=== PATIENT | female | born 1990 | race Caucasian/White ===

== ENCOUNTER 2016-05-23 01:33 | Emergency (ER) | payer MEDICAID ==
[~2016-05-23 01:33] MED LIST: /LAMO20TA PO; ALEV220C2 PO; AUGM500T34 PO; AUGM875T27 PO; Acetaminophen/Hydrocodone PO; BACTDSTA PO; BIRTH CONTROL ID; CARD60TA3 PO; CLOR37TA PO; CYMB1CAP PO; DILA2TAB PO; Docusate Sod/Senna PO; FLEX10TA2 PO; FLUT11IN INH; KEPP1000 PO; KEPP500T4 PO; LAMI200T3 PO; LIDO1SOL7 SS; LYRI75CA PO; META800T82 PO; NAPR250T2 PO; NAPR500T2 PO; NORC5TAB PO; NYAM10003 TOP; OCUF0.3D OU; ONDA4TAB6 PO; PERC2.5T PO; PREV30TA3 PO; SERO50TA3 PO; SYNT25TA PO; TRAN7.5T PO; TYLE325T5 PO; VENTAER INH; ZYPR2.5T2 PO
[2016-05-23] MEDS ORDERED: TRIMETHOBENZAMIDE HCL INJ 200 MG/2 ML VIAL (J3250) As Ordered ONE (02:10)
--- NOTE | 2016-05-23 02:56 | EDDOCDS ---
Nurse's Notes [facility] Name: Serena Mena Age: 26 yrs Sex: Female : 1990 Arrival Date: 05/23/2016 Time: 01:33 Bed I2 / M2 Private MD: Eleazar Herrera Diagnosis: Mild hyperemesis gravidarum Presentation: 05/23 01:50 Presenting complaint: Patient states: . Unsure of how far along. Has been kmg1 vomiting all day Monday. Nausea. Adult Sepsis Screening: Suicide/Homicide risk assessment- the patient denies having any suicidal and/or homicidal ideations and does not present with any other emotional, behavioral or mental health complaints. 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 Transition of care: patient was not received from another setting of care. 01:50 Acuity: ROSEMARIE Level 4 kmg1 01:50 Method Of Arrival: Walkin/Carried/Asstd km 02:00 Adult Sepsis Screening: The patient does not have new or worsening altered mentation. kmg1 Patient's respiratory rate is less than 22. Systolic blood pressure is greater than 100. Patient has a qSOFA score of 0- Negative Sepsis Screen. Triage Assessment: 01:56 General: Appears in no apparent distress, ill, Behavior is appropriate for age, kmg1 cooperative. Pain: Location: suprapubic area, right lower quadrant and left lower quadrant Pain currently is 8 out of 10 on a pain scale. Quality of pain is described as crampy, sharp, stabbing, Is continuous. HIV screening NA for this visit Offered previously. GI: Reports cramping, nausea, vomiting. 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 Keppra 1,000 mg Oral tab 1 tab every other day (Last dose: 05/22/2016) 2. Lidocaine Viscous 2 % Oral soln 15 mL three times a day when eating 3. Oral 1 tablet daily (Last dose: 05/22/2016) 4. Tylenol 325 mg Oral tab 1 tab every 4-6 hours (Last dose: 05/22/2016 19:30) 5. Zofran (as hydrochloride) 4 mg oral tab 1 tabs every 8 hours (Last dose: 05/22/2016 20:30) - PMHx: Hodgkin's Lymphomain remission; Seizure Disorder; - PSHx: fluid removed from heart; sternum surgery; infusaport placed and removed; lymph node from neck; Adenoidectomy; Ear Tubes; surgery for hodgkins lymphoma; - Social history: Smoking status: Patient states was never smoker of tobacco. No barriers to communication noted, The patient speaks fluent Grenadian, Speaks appropriately for age. - Family history: Not pertinent. - : The pt / caregiver states he / she is not on anticoagulants. Home medication list is obtained from the patient, [employer] import data. - Exposure Risk Screening:: None identified. Screenin:31 Screening information is obtained from the patient. Fall risk: No risks identified. km Assistance ADL's: requires no assistance with activities of daily living. Abuse/DV Screen: The patient / caregiver reports he/she is: not in a situation that causes fear, pain or injury. Nutritional screening: No deficits noted. Advance Directives: There is no active DNR order. home support is adequate. Assessment: 01:56 General: See Triage Assessment. [facility] [place] 02:45 General: Appears in no apparent distress, Behavior is cooperative. General: pt eric slm fluids at this time . Respiratory: Airway is patent Respiratory effort is even, unlabored. Vital Signs: 01:56 BP 113 / 69; Pulse 116; Resp 20; Temp 99.4(O); Pulse Ox 98% ; Weight 58.97 kg (R); [facility] [place] Height 5 ft. 5 in. (165.10 cm) (R); Pain 8/10; 02:55 BP 108 / 67; Pulse 111; Resp 18; Pulse Ox 100% ; slm 01:56 Body Mass Index 21.63 (58.97 kg, 165.10 cm) [facility] [place] [place] Vitals: 01:56 Log In Time: May 23, 2016 at 01:33. [facility] [place] [place] ED Course: 01:35 Patient visited by Romulo Ross, Reg. pm4 01:35 Eleazar Herrera is Private Physician. pm4 01:35 Patient moved to Waiting pm4 01:51 Triage Initiated [facility] [place] 02:06 Samira Lo PA-C is PHCP. dt4 02:06 Kai Ramirez DO is Attending Physician. dt4 02:09 Patient moved to Triage 2 slm 02:11 Patient visited by Samira Lo PA-C. dt4 02:14 Angelica Emery LPN is Primary Nurse. slm 02:14 Patient moved to I2 / M2 slm 02:31 Patient visited by Millicent Steve RN. kmg1 02:31 The patient / caregiver is instructed regarding the plan of care and ED course. kmg1 02:45 Angelica Emery LPN is Primary Nurse. slm 02:45 No IV's were initiated during this patient's visit. No procedures done that require slm assistance. Administered Medications: 02:20 Drug: Tigan 200 mg [Tigan 100 mg/mL intramuscular solution (2 mL)] Route: IM; Site: [facility] [place] left gluteus; 02:54 Follow up: Response: Nausea is resolved slm Order Results: There are currently no results for this order. Outcome: 02:46 No special radiology studies were completed. Property :Personal belongings accompany Pt.[facility] 02:46 Discharge ordered by Provider. dt4 02:47 Discharge Assessment: patient administered narcotics - no. slm 02:53 The following High Risk Discharge criteria are identified: None. Discharged to home slm ambulatory, with significant other. Condition: good Condition: improved. Discharge instructions given to patient, Instructed on discharge instructions, follow up and referral plans. medication usage, Demonstrated understanding of instructions, medications, Pt was receptive of discharge instructions/ teaching. Prescriptions given X 1. 02:55 Patient left the ED. [facility] Signatures: Millicent Steve RN RN [facility] [place] Angelica Emery LPN LPN [facility] Samira Lo PA-C PA-C dt4 Romulo Ross, Reg Reg pm4 MTDD
--- NOTE | 2016-05-23 02:56 | EDDOCDS ---
Physician Documentation [facility] Name: Serena Mena Age: 26 yrs Sex: Female : 1990 Arrival Date: 05/23/2016 Time: 01:33 Bed I2 / M2 Private MD: Eleazar Herrera Disposition: 05/23/16 02:46 Discharged to Home/Self Care. Impression: Mild hyperemesis gravidarum. - Condition is Stable. - Discharge Instructions: Hyperemesis Gravidarum. - Prescriptions for Tigan 300 mg Oral Capsule - take 1 capsule by ORAL route every 12 hours As needed; 30 capsule. - Medication Reconciliation, Local Pharmacy Hours form. - Follow up: Emergency Department; When: As needed; Reason: Worsening of conditions. Follow up: Private Physician; When: 2 - 3 days; Reason: Wound/Symptom Recheck, Recheck today's complaints, Continuance of care. - Problem is new. - Symptoms have improved. Historical: - Allergies: Fentanyl (Hives); IV Dyeseizures; Latex (Anaphylaxis); - Home Meds: 1. Keppra 1,000 mg Oral tab 1 tab every other day (Last dose: 05/22/2016) 2. Lidocaine Viscous 2 % Oral soln 15 mL three times a day when eating 3. Oral 1 tablet daily (Last dose: 05/22/2016) 4. Tylenol 325 mg Oral tab 1 tab every 4-6 hours (Last dose: 05/22/2016 19:30) 5. Zofran (as hydrochloride) 4 mg oral tab 1 tabs every 8 hours (Last dose: 05/22/2016 20:30) - PMHx: Hodgkin's Lymphomain remission; Seizure Disorder; - PSHx: fluid removed from heart; sternum surgery; infusaport placed and removed; lymph node from neck; Adenoidectomy; Ear Tubes; surgery for hodgkins lymphoma; - Social history: Smoking status: Patient states was never smoker of tobacco. No barriers to communication noted, The patient speaks fluent Albanian, Speaks appropriately for age. - Family history: Not pertinent. - : The pt / caregiver states he / she is not on anticoagulants. Home medication list is obtained from the patient, [employer] import data. - Exposure Risk Screening:: None identified. 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 5 in. (165.10 cm) (R); Pain 8/10; 02:55 BP 108 / 67; Pulse 111; Resp 18; Pulse Ox 100% ; slm 01:56 Body Mass Index 21.63 (58.97 kg, 165.10 cm) [facility] MDM: 02:06 Tigan 200 mg IM once ordered. dt4 02:54 [facility] Administered Medications: 02:20 Drug: Tigan 200 mg [Tigan 100 mg/mL intramuscular solution (2 mL)] Route: IM; Site: [facility] [place] left gluteus; 02:54 Follow up: Response: Nausea is resolved [facility] Signatures: Millicent Steve RN RN [facility] Angelica Emery LPN LPN [facility] Samira Lo PA-C PA-C dt4 Alyssa Baca [facility] AZUCENA
--- NOTE | 2016-05-25 03:56 | EDDOCDS ---
Physician Documentation [facility] Name: Serena Mena Age: 26 yrs Sex: Female : 1990 Arrival Date: 05/23/2016 Time: 01:33 Bed I2 / M2 Private MD: Eleazar Herrera Disposition: 05/23/16 02:46 Discharged to Home/Self Care. Impression: Mild hyperemesis gravidarum. - Condition is Stable. - Discharge Instructions: Hyperemesis Gravidarum. - Prescriptions for Tigan 300 mg Oral Capsule - take 1 capsule by ORAL route every 12 hours As needed; 30 capsule. - Medication Reconciliation, Local Pharmacy Hours form. - Follow up: Emergency Department; When: As needed; Reason: Worsening of conditions. Follow up: Private Physician; When: 2 - 3 days; Reason: Wound/Symptom Recheck, Recheck today's complaints, Continuance of care. - Problem is new. - Symptoms have improved. Historical: - Allergies: Fentanyl (Hives); IV Dyeseizures; Latex (Anaphylaxis); - Home Meds: 1. Keppra 1,000 mg Oral tab 1 tab every other day (Last dose: 05/22/2016) 2. Lidocaine Viscous 2 % Oral soln 15 mL three times a day when eating 3. Oral 1 tablet daily (Last dose: 05/22/2016) 4. Tylenol 325 mg Oral tab 1 tab every 4-6 hours (Last dose: 05/22/2016 19:30) 5. Zofran (as hydrochloride) 4 mg oral tab 1 tabs every 8 hours (Last dose: 05/22/2016 20:30) - PMHx: Hodgkin's Lymphomain remission; Seizure Disorder; - PSHx: fluid removed from heart; sternum surgery; infusaport placed and removed; lymph node from neck; Adenoidectomy; Ear Tubes; surgery for hodgkins lymphoma; - Social history: Smoking status: Patient states was never smoker of tobacco. No barriers to communication noted, The patient speaks fluent [place], Speaks appropriately for age. - Family history: Not pertinent. - : The pt / caregiver states he / she is not on anticoagulants. Home medication list is obtained from the patient, [employer] import data. - Exposure Risk Screening:: None identified. 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 5 in. (165.10 cm) (R); Pain 8/10; 02:55 BP 108 / 67; Pulse 111; Resp 18; Pulse Ox 100% ; slm 01:56 Body Mass Index 21.63 (58.97 kg, 165.10 cm) [facility] [place]: 02:06 Tigan 200 mg IM once ordered. dt4 02:54 Financial registration complete. [facility] 03:11 [facility] Payment Agreement was scanned into [employer] and attached to record. [facility] 14: T-Sheet-- Draft Copy was scanned into [employer] and attached to record. gb Administered Medications: 02:20 Drug: Tigan 200 mg [Tigan 100 mg/mL intramuscular solution (2 mL)] Route: IM; [place] [facility] [place]; 02:54 Follow up: Response: Nausea is resolved [facility] Signatures: Millicent Steve, RN RN [facility] Delmy Mtz, Reg Reg gb Angelica Emery LPN LPN [facility] Samira Lo PA-C PA-C dt4 Alyssa Baca [facility] The chart was reviewed and I authenticate all verbal orders and agree with the evaluation and treatment provided.Attachments: 03:11 [facility] Payment Agreement [facility] 14:02 T-Sheet-- Draft Copy Chart Complete MTDD
--- NOTE | 2016-05-25 03:56 | EDDOCDS ---
Nurse's Notes [facility] Name: Serena Mena Age: 26 yrs Sex: Female : 1990 Arrival Date: 05/23/2016 Time: 01:33 Bed I2 / M2 Private MD: Eleazar Herrera Diagnosis: Mild hyperemesis gravidarum Presentation: 05/23 01:50 Presenting complaint: Patient states: . Unsure of how far along. Has been kmg1 vomiting all day Monday. Nausea. Adult Sepsis Screening: Suicide/Homicide risk assessment- the patient denies having any suicidal and/or homicidal ideations and does not present with any other emotional, behavioral or mental health complaints. 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 Transition of care: patient was not received from another setting of care. 01:50 Acuity: ROSEMARIE Level 4 kmg1 01:50 Method Of Arrival: Walkin/Carried/Asstd km 02:00 Adult Sepsis Screening: The patient does not have new or worsening altered mentation. kmg1 Patient's respiratory rate is less than 22. Systolic blood pressure is greater than 100. Patient has a qSOFA score of 0- Negative Sepsis Screen. Triage Assessment: 01:56 General: Appears in no apparent distress, ill, Behavior is appropriate for age, kmg1 cooperative. Pain: Location: suprapubic area, right lower quadrant and left lower quadrant Pain currently is 8 out of 10 on a pain scale. Quality of pain is described as crampy, sharp, stabbing, Is continuous. HIV screening NA for this visit Offered previously. GI: Reports cramping, nausea, vomiting. 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 Keppra 1,000 mg Oral tab 1 tab every other day (Last dose: 05/22/2016) 2. Lidocaine Viscous 2 % Oral soln 15 mL three times a day when eating 3. Oral 1 tablet daily (Last dose: 05/22/2016) 4. Tylenol 325 mg Oral tab 1 tab every 4-6 hours (Last dose: 05/22/2016 19:30) 5. Zofran (as hydrochloride) 4 mg oral tab 1 tabs every 8 hours (Last dose: 05/22/2016 20:30) - PMHx: Hodgkin's Lymphomain remission; Seizure Disorder; - PSHx: fluid removed from heart; sternum surgery; infusaport placed and removed; lymph node from neck; Adenoidectomy; Ear Tubes; surgery for hodgkins lymphoma; - Social history: Smoking status: Patient states was never smoker of tobacco. No barriers to communication noted, The patient speaks fluent [place]inean, Speaks appropriately for age. - Family history: Not pertinent. - : The pt / caregiver states he / she is not on anticoagulants. Home medication list is obtained from the patient, [employer] import data. - Exposure Risk Screening:: None identified. Screenin:31 Screening information is obtained from the patient. Fall risk: No risks identified. km Assistance ADL's: requires no assistance with activities of daily living. Abuse/DV Screen: The patient / caregiver reports he/she is: not in a situation that causes fear, pain or injury. Nutritional screening: No deficits noted. Advance Directives: There is no active DNR order. home support is adequate. Assessment: 01:56 General: See Triage Assessment. [facility] 02:45 General: Appears in no apparent distress, Behavior is cooperative. General: pt eric slm fluids at this time . Respiratory: Airway is patent Respiratory effort is even, unlabored. Vital Signs: 01:56 BP 113 / 69; Pulse 116; Resp 20; Temp 99.4(O); Pulse Ox 98% ; Weight 58.97 kg (R); [facility] Height 5 ft. 5 in. (165.10 cm) (R); Pain 8/10; 02:55 BP 108 / 67; Pulse 111; Resp 18; Pulse Ox 100% ; slm 01:56 Body Mass Index 21.63 (58.97 kg, 165.10 cm) [facility] Vitals: 01:56 Log In Time: May 23, 2016 at 01:33. [facility] ED Course: 01:35 Patient visited by Romulo Ross, Reg. pm4 01:35 Eleazar Herrera is Private Physician. pm4 01:35 Patient moved to Waiting pm4 01:51 Triage Initiated [facility] 02:06 Samira Lo PA-C is PHCP. dt4 02:06 Kai Ramirez DO is Attending Physician. dt4 02:09 Patient moved to Triage 2 sl 02:11 Patient visited by Samira Lo PA-C. dt4 02:14 Angelica Emery LPN is Primary Nurse. slm 02:14 Patient moved to I2 / M2 slm 02:31 Patient visited by Millicent Steve RN. kmg1 02:31 The patient / caregiver is instructed regarding the plan of care and ED course. kmg1 02:45 Angelica Emery LPN is Primary Nurse. slm 02:45 No IV's were initiated during this patient's visit. No procedures done that require slm assistance. 03:11 [facility] Payment Agreement was scanned into [employer] and attached to record. [facility] 14:02 T-Sheet-- Draft Copy was scanned into [employer] and attached to record. gb Administered Medications: 02:20 Drug: Tigan 200 mg [Tigan 100 mg/mL intramuscular solution (2 mL)] Route: IM; Site: [facility] [place] left gluteus; 02:54 Follow up: Response: Nausea is resolved sl Order Results: There are currently no results for this order. Outcome: 02:46 No special radiology studies were completed. Property :Personal belongings accompany Pt.[facility] 02:46 Discharge ordered by Provider. dt4 02:47 Discharge Assessment: patient administered narcotics - no. m 02:53 The following High Risk Discharge criteria are identified: None. Discharged to home slm ambulatory, with significant other. Condition: good Condition: improved. Discharge instructions given to patient, Instructed on discharge instructions, follow up and referral plans. medication usage, Demonstrated understanding of instructions, medications, Pt was receptive of discharge instructions/ teaching. Prescriptions given X 1. 02:55 Patient left the ED. [facility] Signatures: Millicent Steve RN RN km Delmy Mtz, Reg Reg gb Angelica Emery LPN LPN [facility] Samira Lo PA-C PA-C dt4 Alyssa Baca [facility] Romulo Ross, Reg Reg pm4 Chart Complete MTDD
--- NOTE | 2016-05-25 03:56 | EDDOCDS ---
Physician Documentation [facility] Name: Serena Mena Age: 26 yrs Sex: Female : 1990 Arrival Date: 05/23/2016 Time: 01:33 Bed I2 / M2 Private MD: Eleazar Herrera Disposition: 05/23/16 02:46 Discharged to Home/Self Care. Impression: Mild hyperemesis gravidarum. - Condition is Stable. - Discharge Instructions: Hyperemesis Gravidarum. - Prescriptions for Tigan 300 mg Oral Capsule - take 1 capsule by ORAL route every 12 hours As needed; 30 capsule. - Medication Reconciliation, Local Pharmacy Hours form. - Follow up: Emergency Department; When: As needed; Reason: Worsening of conditions. Follow up: Private Physician; When: 2 - 3 days; Reason: Wound/Symptom Recheck, Recheck today's complaints, Continuance of care. - Problem is new. - Symptoms have improved. Historical: - Allergies: Fentanyl (Hives); IV Dyeseizures; Latex (Anaphylaxis); - Home Meds: 1. Keppra 1,000 mg Oral tab 1 tab every other day (Last dose: 05/22/2016) 2. Lidocaine Viscous 2 % Oral soln 15 mL three times a day when eating 3. Oral 1 tablet daily (Last dose: 05/22/2016) 4. Tylenol 325 mg Oral tab 1 tab every 4-6 hours (Last dose: 05/22/2016 19:30) 5. Zofran (as hydrochloride) 4 mg oral tab 1 tabs every 8 hours (Last dose: 05/22/2016 20:30) - PMHx: Hodgkin's Lymphomain remission; Seizure Disorder; - PSHx: fluid removed from heart; sternum surgery; infusaport placed and removed; lymph node from neck; Adenoidectomy; Ear Tubes; surgery for hodgkins lymphoma; - Social history: Smoking status: Patient states was never smoker of tobacco. No barriers to communication noted, The patient speaks fluent Dutch, Speaks appropriately for age. - Family history: Not pertinent. - : The pt / caregiver states he / she is not on anticoagulants. Home medication list is obtained from the patient, [employer] import data. - Exposure Risk Screening:: None identified. 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 5 in. (165.10 cm) (R); Pain 8/10; 02:55 BP 108 / 67; Pulse 111; Resp 18; Pulse Ox 100% ; slm 01:56 Body Mass Index 21.63 (58.97 kg, 165.10 cm) [facility] [place] MDM: 02:06 Tigan 200 mg IM once ordered. dt4 02:54 Financial registration complete. [facility] 03:11 [facility] Payment Agreement was scanned into [employer] and attached to record. [facility] 14: T-Sheet-- Draft Copy was scanned into [employer] and attached to record. gb Administered Medications: 02:20 Drug: Tigan 200 mg [Tigan 100 mg/mL intramuscular solution (2 mL)] Route: IM; Site: [facility] [place]us; 02:54 Follow up: Response: Nausea is resolved [facility] Signatures: Millicent Steve, RN RN [facility] [place] Delmy Mtz, Reg Reg gb Angelica Emery LPN LPN [facility] Samira Lo PA-C PA-C dt4 Alyssa Baca [facility] The chart was reviewed and I authenticate all verbal orders and agree with the evaluation and treatment provided.Attachments: 03:11 [facility] Payment Agreement [facility] 14:02 T-Sheet-- Draft Copy Chart Complete MTDD
== END 2016-05-23 02:55 | disposition home or self-care (01) ==
LOC: M ED 01:33
DX: O21.0 Mild hyperemesis gravidarum (principal); Z3A.01 Less than 8 weeks gestation of pregnancy; Z85.71 Personal history of Hodgkin lymphoma; O99.351 Diseases of the nervous system complicating pregnancy, first trimester; Z79.899 Other long term (current) drug therapy; Z88.5 Allergy status to narcotic agent; Z91.040 Latex allergy status; Z91.041 Radiographic dye allergy status
CPT/HCPCS: 96372; 99283; J3250

== ENCOUNTER → 2016-05-24 | Outpatient (REF) | payer MEDICAID ==
[2016-05-24 14:26] LABS: MEAN CORPUSCULAR HEMOGLOBIN 28.7 pg (27.0-33.0); MEAN CORPUSCULAR HGB CONC 32.5 g/dl (32.0-36.5); MEAN CORPUSCULAR VOLUME 88.5 fl (80.0-96.0); RED CELL DISTRIBUTION WIDTH 12.1 % (11.5-14.5); WHITE BLOOD COUNT 4.8 K/mm3 (4.0-10.0)
[2016-05-24 14:39] LABS: FREE T4 1.18 NG/DL (0.76-1.46); HCG, SERUM QUANTITATIVE 4649 MIU/ML
[2016-05-25 14:05] LABS: HIV SCRN NEGATIVE (NEGATIVE); HIV SCRN1 NEGATIVE (NEGATIVE)
[2016-05-25 14:06] LABS: CONTROL LINE INT CTR LINE PRESENT
== END | disposition home or self-care (01) ==
LOC: M LAB REF 12:57
PROVIDERS: ATTEND Obstetrics & Gynecology
DX: O36.80X0 Pregnancy with inconclusive fetal viability, not applicable or unspecified (principal); Z36 Encounter for antenatal screening of mother; Z3A.00 Weeks of gestation of pregnancy not specified

== ENCOUNTER → 2016-06-30 | Outpatient (REF) | payer MEDICAID ==
[2016-06-30 18:18] LABS: FREE T4 0.89 NG/DL (0.76-1.46)
== END ==
LOC: M LAB REF 16:44
PROVIDERS: ATTEND Obstetrics & Gynecology
DX: Z36 Encounter for antenatal screening of mother (principal); Z3A.10 10 weeks gestation of pregnancy

== ENCOUNTER → 2016-08-25 | Outpatient (REF) | payer MEDICAID ==
[2016-08-25 14:51] LABS: FREE T4 0.88 NG/DL (0.76-1.46)
== END ==
LOC: M LAB REF 12:41
PROVIDERS: ATTEND Advanced Practice Midwife
DX: E03.9 Hypothyroidism, unspecified (principal)

== ENCOUNTER → 2016-10-24 | Outpatient (CLI) | payer MEDICAID ==
[~2016-10-24] MED LIST changes: +ACET50TA PO; +KEPP10002 PO; +LAMI1TAB9 PO; -LAMI200T3 PO; +LEVO112T2 PO; +MACR100C43 PO; +MOTR200T44 PO; -NAPR500T2 PO; +NAPR500T3 PO; +OCUF0.25 OU; -OCUF0.3D OU; +PRENTAB9 PO
[2016-10-24 11:00] LABS: MEAN CORPUSCULAR HEMOGLOBIN 30.4 pg (27.0-33.0); MEAN CORPUSCULAR HGB CONC 33.2 g/dl (32.0-36.5); MEAN CORPUSCULAR VOLUME 91.5 fl (80.0-96.0); WHITE BLOOD COUNT 7.7 K/mm3 (4.0-10.0)
== END ==
LOC: EDBD → M LAB 09:28
PROVIDERS: ATTEND Obstetrics & Gynecology
DX: Z34.02 Encounter for supervision of normal first pregnancy, second trimester (principal); Z36 Encounter for antenatal screening of mother; Z3A.26 26 weeks gestation of pregnancy

== ENCOUNTER 2016-10-29 19:57 | Outpatient (CLI) | payer MEDICAID ==
[~2016-10-29] VITALS: Ht 165.1 cm; Wt 74.0 kg
[~2016-10-29 19:57] MED LIST changes: -ACET50TA PO; -LEVO112T2 PO; -MACR100C43 PO; -MOTR200T44 PO; -PRENTAB9 PO
[2016-10-29 22:08] VITALS: BP 115/72
== END 2016-10-29 22:00 | disposition home or self-care (01) ==
LOC: EDBD → M LDO 19:57
PROVIDERS: ATTEND Obstetrics & Gynecology
DX: O99.89 Other specified diseases and conditions complicating pregnancy, childbirth and the puerperium (principal); R10.30 Lower abdominal pain, unspecified; Z3A.27 27 weeks gestation of pregnancy

== ENCOUNTER → 2016-11-17 | Outpatient (REF) | payer MEDICAID ==
[~2016-11-17] MED LIST changes: +ACET50TA PO; +LEVO112T2 PO; +MACR100C43 PO; +MOTR200T44 PO; +PRENTAB9 PO
[2016-11-17 15:05] LABS: FREE T4 0.78 NG/DL (0.76-1.46)
== END ==
LOC: EDBD → M LAB REF 13:15
PROVIDERS: ATTEND Advanced Practice Midwife
DX: O99.283 Endocrine, nutritional and metabolic diseases complicating pregnancy, third trimester (principal); E03.9 Hypothyroidism, unspecified; Z3A.30 30 weeks gestation of pregnancy

== ENCOUNTER 2016-11-27 17:35 | Outpatient (CLI) | payer MEDICAID ==
[~2016-11-27] VITALS: Ht 165.1 cm; Wt 76.0 kg
[~2016-11-27 17:35] MED LIST changes: -ACET50TA PO; -LEVO112T2 PO; -MACR100C43 PO; -MOTR200T44 PO; -PRENTAB9 PO
[2016-11-27] MEDS ORDERED: PRENTAB9 PO (17:56)
[2016-11-27] MEDS ORDERED: ACET50TA PO (17:56)
[2016-11-27] MEDS ORDERED: ACETAMINOPHEN 500 MG TAB PO PRN (19:15)
[2016-11-27 19:47] LABS: CALCIUM OXALATE CRYSTALS SMALL
[2016-11-27] MEDS ORDERED: NITROFURANTOIN (MACROBID) 100 MG CAP PO ONE (20:15)
[2016-11-27] MEDS ORDERED: MACR100C43 PO (20:16)
== END 2016-11-27 20:34 | disposition home or self-care (01) ==
LOC: EDBD → M LDO 17:35
PROVIDERS: ATTEND Advanced Practice Midwife
DX: O26.893 Other specified pregnancy related conditions, third trimester (principal); Z3A.32 32 weeks gestation of pregnancy; N89.8 Other specified noninflammatory disorders of vagina; R10.9 Unspecified abdominal pain; F79 Unspecified intellectual disabilities; R56.9 Unspecified convulsions; Z91.041 Radiographic dye allergy status; Z91.040 Latex allergy status; Z88.8 Allergy status to other drugs, medicaments and biological substances; O99.343 Other mental disorders complicating pregnancy, third trimester; O99.353 Diseases of the nervous system complicating pregnancy, third trimester

== ENCOUNTER 2016-12-15 06:06 | Outpatient (CLI) | payer MEDICAID ==
[~2016-12-15] VITALS: Ht 163.8 cm; Wt 77.0 kg
[~2016-12-15 06:06] MED LIST changes: +ACET50TA PO; +MACR100C43 PO; +PRENTAB9 PO
[2016-12-15] MEDS ORDERED: LACTATED RINGER'S 1000 ML IV ONE (06:45)
[2016-12-15] MEDS ORDERED: LR 1,000 ML IV SCH (06:45)
[2016-12-15 07:19] LABS: BASO % 0.1 % (0.0-1.0); EOS # 0.1 K/mm3 (0.0-0.50); EOS % 0.9 % (0.0-3.0); LARGE UNSTAINED CELL # 0.1 K/mm3 (0.0-0.4); LARGE UNSTAINED CELL % 0.7 % (0.0-4.0); LYMPH # 0.9 K/mm3 (1.5-6.5); LYMPH % 8.4 % (24.0-44.0); MEAN CORPUSCULAR HEMOGLOBIN 30.7 pg (27.0-33.0); MEAN CORPUSCULAR HGB CONC 34.2 g/dl (32.0-36.5); MEAN CORPUSCULAR VOLUME 89.8 fl (80.0-96.0); MONO # 0.3 K/mm3 (0.0-0.8); MONO % 3.3 % (0.0-5.0); NEUTROPHILS # 8.7 K/mm3 (1.8-7.7); NEUTROPHILS % 86.6 % (36.0-66.0); PLATELET COUNT, AUTOMATED 186 k/mm3 (150-450); RED CELL DISTRIBUTION WIDTH 13.1 % (11.5-14.5)
[2016-12-15 07:45] LABS: ANION GAP 10 MEQ/L (8-16); BLOOD UREA NITROGEN 4 MG/DL (7-18); CALCIUM LEVEL 8.6 MG/DL (8.5-10.1); CARBON DIOXIDE LEVEL 23 MEQ/L (21-32); CHLORIDE LEVEL 108 MEQ/L (98-107); GLOMERULAR FILTRATION RATE > 60.0 (>60); GLUCOSE, FASTING 90 MG/DL (70-105); SODIUM LEVEL 141 MEQ/L (136-145)
== END 2016-12-15 08:40 | disposition home or self-care (01) ==
LOC: M LDO 06:06 → EDBD 06:06 → M LDO 08:40
PROVIDERS: ATTEND Obstetrics & Gynecology
DX: O21.9 Vomiting of pregnancy, unspecified (principal); O99.513 Diseases of the respiratory system complicating pregnancy, third trimester; J06.9 Acute upper respiratory infection, unspecified; Z3A.34 34 weeks gestation of pregnancy

== ENCOUNTER → 2016-12-20 | Outpatient (REF) | payer MEDICAID ==
[~2016-12-20] MED LIST changes: +LEVO112T2 PO; +MOTR200T44 PO
[2016-12-20 14:08] LABS: FREE T4 0.91 NG/DL (0.76-1.46)
== END ==
LOC: M LAB REF 13:08
PROVIDERS: ATTEND Obstetrics & Gynecology
DX: O09.893 Supervision of other high risk pregnancies, third trimester (principal); Z36 Encounter for antenatal screening of mother; Z3A.00 Weeks of gestation of pregnancy not specified

== ENCOUNTER 2016-12-31 13:51 | Outpatient (CLI) | payer MEDICAID ==
[~2016-12-31 13:51] MED LIST changes: -LEVO112T2 PO; -MOTR200T44 PO
[2016-12-31 14:16] VITALS: BP 129/74
--- NOTE | 2017-01-01 | IPNPDOC ---
Text Note Date of Service The patient was seen on 12/31/16 at 1432. NOTE SUBJECTIVE: Patient is a 26 year old female who is a at at 36.6 weeks gestation. She initiated care in her first trimester with [facility]. Her has been complicated by subclinical hypothyroidism. She has a complex history of being treated for non-Hodgkin's Lymphoma via bone marrow transplant. She presents to L&D with complaints of constant pain in her pelvis, cramping, and spotting. Reports active movement. Reported contractions to be every 2 minutes on the phone but does not mention feeling contractions when asked. Pain is a 7/10. She denies leaking fluid. OBJECTIVE: FHR 120, moderate variability, positive accelerations, no decelerations. Contractions irregular. Abdomen palpates very mild with contractions. No tenderness with palpation. SVE: 1/80/-2, soft, posterior, no show, intact membranes. Urine is straw yellow to dark yellow. ASSESSMENT:IUP @ 36.6 weeks gestation, hypothyroidism, rule out labor, Category I FHR tracing PLAN: Will continue to assess. Will check cervix again for change after 2 hours of monitoring. Encouraged oral fluid intake. VS,Fishbone, I+O VS, Fishbone, I+O Vital Signs Date Time Temp Pulse Resp B/P (MAP) Pulse Ox O2 Delivery O2 Flow Rate FiO2 12/31/16 14:16 98.7 93 129/74 (92) LYNNE PAULSON CNM Jan 01, 2017 00:00
--- NOTE | 2017-01-01 00:23 | IPNPDOC ---
Text Note Date of Service The patient was seen on 01/01/17 AT 1650. NOTE SUBJECTIVE: Patient reports that her pain is the same. Reports active movement. Reports she had spotting earlier but none since this morning. Patient states that she "wants this baby out" and "why can't we do anything to help her have this baby." She is requesting an induction because of her pain. Reviewed with patient that myself and Dr. Delgado will not induce her until she is at least 39 weeks gestation and that we have discussed this in depth at multiple visits. This is again explained to patient that we will not induce her until 39 weeks gestation unless medically necessary. OBJECTIVE: VS stable. FHR 120, moderate variability, positive accelerations, no decelerations. Contractions: irregularly and occasional. SVE: unchanged. No show or vaginal bleeding noted. ASSESSMENT: IUP at 36.6 weeks gestation, Category I FHR tracing, not in labor PLAN: Patient to be discharged to home. Given an induction date of 01/16/17 at 0600. Reviewed risks, benefits, and alternatives of IOL. Patient desires an induction and is very adamant of delivering as early as she can. Reviewed comfort measures for hip pain. Encouraged patient to increase her fluid intake to half her weight in ounces. Reviewed access to care, movement counts, labor signs and symptoms, and danger signs to report. Patient is to follow up for her routine OB appointment. VS,Fishbone, I+O VS, Fishbone, I+O Vital Signs Date Time Temp Pulse Resp B/P (MAP) Pulse Ox O2 Delivery O2 Flow Rate FiO2 12/31/16 14:16 98.7 93 129/74 (92) LYNNE PAULSON CNM Jan 01, 2017 00:23
== END 2016-12-31 17:00 | disposition home or self-care (01) ==
LOC: M LDO 13:51
PROVIDERS: ATTEND Advanced Practice Midwife
DX: O47.03 False labor before 37 completed weeks of gestation, third trimester (principal); Z3A.36 36 weeks gestation of pregnancy; O99.283 Endocrine, nutritional and metabolic diseases complicating pregnancy, third trimester; Z85.72 Personal history of non-Hodgkin lymphomas; R10.2 Pelvic and perineal pain; Z88.8 Allergy status to other drugs, medicaments and biological substances; Z91.040 Latex allergy status; Z91.041 Radiographic dye allergy status

== ENCOUNTER 2017-01-04 16:20 | Inpatient (IN) | payer MEDICAID ==
[~2017-01-04] VITALS: Ht 165.1 cm; Wt 79.5 kg
[2017-01-04 16:40] VITALS: BP 100/66
[2017-01-04] MEDS ORDERED: AMPICILLIN SOD 2 GM in D5W MINI-BAG PLUS 100 ML IV ONE (16:45)
[2017-01-04] MEDS ORDERED: LR 800 ML IV SCH (17:00)
[2017-01-04] MEDS ORDERED: OXYTOCIN 30 UNITS IN 0.9% NaCl 500ML IV BAG (J2590) As Ordered ONE (17:36)
[2017-01-04] MEDS ORDERED: LR 1,000 ML IV SCH (18:00)
[2017-01-04 18:05] VITALS: BP 127/59
[2017-01-04 18:22] VITALS: BP 138/69
[2017-01-04] MEDS ORDERED: OXYTOCIN DRIP 30 UNITS in APPROPRIATE DILUENT 1 EA IV SCH (18:39)
[2017-01-04] MEDS ORDERED: MEASLES,MUMPS,RUBELLA VACCINE INJ (MMR-II) (90707) SC SCH (18:45)
[2017-01-04] MEDS ORDERED: DIBUCAINE 1% OINTMENT 30GM TOP PRN (18:45)
[2017-01-04] MEDS ORDERED: METHYLERGONOVINE MALEATE 0.2 MG TAB PO PRN (18:45)
[2017-01-04] MEDS ORDERED: DOCUSATE SODIUM 100 MG CAP PO PRN (18:45)
[2017-01-04] MEDS ORDERED: RHOGAM 300 MCG (1500 IU) INJ (J2790) IM SCH (18:45)
[2017-01-04] MEDS ORDERED: ACETAMINOPHEN 500 MG TAB PO PRN (18:45)
[2017-01-04 19:35] LABS: MEAN CORPUSCULAR HEMOGLOBIN 30.2 pg (27.0-33.0); MEAN CORPUSCULAR HGB CONC 33.6 g/dl (32.0-36.5); RED CELL DISTRIBUTION WIDTH 12.6 % (11.5-14.5); WHITE BLOOD COUNT 18.1 K/mm3 (4.0-10.0)
[2017-01-04 19:43] LABS: ALBUMIN 3.1 GM/DL (3.2-5.2); ALBUMIN/GLOBULIN RATIO 0.94 (1.00-1.93); ALKALINE PHOSPHATASE 120 U/L (45-117); ALT/SGPT 13 U/L (12-78); ANION GAP 12 MEQ/L (8-16); AST/SGOT 13 U/L (15-37); BILIRUBIN,TOTAL 0.3 MG/DL (0.2-1.0); BLOOD UREA NITROGEN 11 MG/DL (7-18); CALCIUM LEVEL 8.5 MG/DL (8.5-10.1); CARBON DIOXIDE LEVEL 21 MEQ/L (21-32); CHLORIDE LEVEL 108 MEQ/L (98-107); CREATININE FOR GFR 0.62 MG/DL (0.55-1.02); GLOMERULAR FILTRATION RATE > 60.0 (>60); GLUCOSE, FASTING 79 MG/DL (70-105); POTASSIUM SERUM 3.8 MEQ/L (3.5-5.1); SODIUM LEVEL 141 MEQ/L (136-145); TOTAL PROTEIN 6.4 GM/DL (6.4-8.2)
--- NOTE | 2017-01-04 20:42 | HPE ---
DATE OF ADMISSION: 01/04/2017 Serena is a 26-year-old female 1, para 0 with an EDC of 01/22/2017, estimated gestational age (EGA) of 37-3/7 weeks gestation who presented to the office with complaints of contractions and extreme pelvic pressure. Upon evaluation in the office she was found to be in active labor. At this point a decision was made to send the patient for admission. Her care is complicated by a history of subclinical hypothyroidism, questionable epilepsy, and non-Hodgkin's lymphoma, which has been in remission. She is currently on Synthroid. Her lab blood type is A+, rubella immune, hepatitis negative, HIV negative, GC chlamydia negative, 1-hour sugar testing was within normal limits. Her last TSH, which was done on 12/20 which was 4.3 with free T4 of 0.9. GBS is positive. PAST MEDICAL HISTORY: Significant for Hodgkin's disease in remission, epilepsy, hypothyroidism. PAST SURGICAL HISTORY: Denies. SOCIAL HISTORY: She is single. Denies any alcohol, drugs or cigarette smoking. REVIEW OF SYSTEMS: Unremarkable. MEDICATIONS: vitamins, Synthroid. ALLERGIES: LATEX and CONTRAST DYE. PHYSICAL EXAMINATION ON ADMISSION: HEENT: Grossly within normal limits. Abdomen: Soft, nontender, nondistended. Extremities: No clubbing, cyanosis or edema. Vaginal examination: 4 to 5 cm, 100%, fetus at -1 station in vertex position. Tracing reviewed. Category one tracing with contractions at 2-3 minutes. ASSESSMENT: Intrauterine at 37-3/7 weeks gestation in active labor. GBS positive. PLAN: Admit to labor and delivery. Routine labs sent. Ampicillin started for GBS prophylaxis. Pain management discussed. The patient opted for an epidural. Will continue to monitor. Anticipate delivery.
[2017-01-04] MEDS ORDERED: AMPICILLIN SOD 1 GM in D5W MINI-BAG PLUS 50 ML IV SCH (21:00)
[2017-01-04 21:38] VITALS: BP 128/81
--- NOTE | 2017-01-04 21:58 | DN ---
DATE OF DELIVERY: 01/04/2017 Serena is a 26-year-old female 1, para 0 who was admitted at 37-3/7 weeks gestation in active labor. She progressed to fully dilated quickly and pushed and delivered a live female infant in right occiput anterior position over a right vaginal laceration. was 9 and 9. weight 5 pounds 14 ounces. Placenta delivered spontaneously intact. Three-vessel cord. The right vaginal wall laceration was repaired using #2-0 Vicryl. Estimated blood loss 300 mL. Both mother and baby in stable condition.
[2017-01-04] MEDS: IBUPROFEN 800 MG TAB PO PRN (22:58)
[2017-01-05 06:09] VITALS: BP 127/80
[2017-01-05] MEDS: PRENATAL VITAMINS CHEWABLE TABLET PO SCH (08:44)
[2017-01-05] MEDS ORDERED: levETIRAcetam 250MG TABLET (KEPPRA) PO ONE (09:00)
[2017-01-05] MEDS ORDERED: LEVO112T2 PO (09:02)
[2017-01-05] MEDS: LEVOTHYROXINE 112MCG TABLET (0.112MG) PO SCH (09:25)
[2017-01-05] MEDS: levETIRAcetam 250MG TABLET (KEPPRA) PO SCH ×2 (09:26→21:03)
[2017-01-05 18:02] VITALS: BP 118/69
[2017-01-06] MEDS: IBUPROFEN 800 MG TAB PO PRN (00:15)
[2017-01-06] MEDS: LEVOTHYROXINE 112MCG TABLET (0.112MG) PO SCH (05:56)
[2017-01-06 06:29] VITALS: BP 123/82
[2017-01-06] MEDS: levETIRAcetam 250MG TABLET (KEPPRA) PO SCH (08:48)
[2017-01-06] MEDS: PRENATAL VITAMINS CHEWABLE TABLET PO SCH (08:48)
[2017-01-06] MEDS ORDERED: MOTR200T44 PO (09:15)
== END 2017-01-06 19:30 | disposition home or self-care (01) | DRG 560 ==
LOC: M LDI 16:20 → M OBS 20:05
PROVIDERS: ADMIT Obstetrics & Gynecology; ATTEND Obstetrics & Gynecology
PROC: 10E0XZZ Delivery of Products of Conception, External Approach (ICD-10-PCS; principal; 2017-01-04)
PROC: 0HQ9XZZ Repair Perineum Skin, External Approach (ICD-10-PCS; 2017-01-04)
DX: O99.284 Endocrine, nutritional and metabolic diseases complicating childbirth (principal); G40.909 Epilepsy, unspecified, not intractable, without status epilepticus; E02 Subclinical iodine-deficiency hypothyroidism; Z3A.37 37 weeks gestation of pregnancy; Z37.0 Single live birth; Z79.899 Other long term (current) drug therapy; Z91.040 Latex allergy status; Z91.041 Radiographic dye allergy status; O99.354 Diseases of the nervous system complicating childbirth; O70.0 First degree perineal laceration during delivery

== ENCOUNTER → 2017-03-13 | Outpatient (REF) | payer MEDICAID ==
[~2017-03-13] MED LIST changes: +CEFD1CAP8 PO; +LEVO112T2 PO; +MOTR200T44 PO; +SYMB16INH INH; +ZOFR4TAB3 PO
== END ==
LOC: M LAB REF 18:20
PROVIDERS: ATTEND Physician Assistant
DX: J02.9 Acute pharyngitis, unspecified (principal)

== ENCOUNTER 2017-03-14 10:42 | Emergency (ER) | payer MEDICAID ==
[~2017-03-14] VITALS: Ht 165.1 cm; Wt 61.4 kg
[~2017-03-14 10:42] MED LIST changes: -CEFD1CAP8 PO; -SYMB16INH INH; -ZOFR4TAB3 PO
[2017-03-14] MEDS ORDERED: ONDANSETRON 4 MG ORAL DISINTEGRATING TAB (S0181) PO ONE (12:00)
[2017-03-14] MEDS ORDERED: diphenhydrAMINE INJ 50MG/ML VIAL (J1200) IV ONE (12:30)
[2017-03-14] MEDS ORDERED: NS 1,000 ML IV ONE (12:30)
[2017-03-14 14:03] LABS: BASO % 0.2 % (0.0-1.0); EOS # 0.1 10^3/uL (0.0-0.50); EOS % 1.1 % (0.0-3.0); IMMATURE GRANULOCYTE % 0.2 % (0-0); LYMPH # 1.4 10^3/uL (1.5-6.5); LYMPH % 17.2 % (24.0-44.0); MEAN CORPUSCULAR HEMOGLOBIN 28.3 pg (27.0-33.0); MEAN CORPUSCULAR HGB CONC 33.3 g/dl (32.0-36.5); MEAN CORPUSCULAR VOLUME 85.1 fl (80.0-96.0); MONO # 0.6 10^3/uL (0.0-0.8); NEUTROPHILS # 6.2 10^3/uL (1.8-7.7); NEUTROPHILS % 74.3 % (36.0-66.0); PLATELET COUNT, AUTOMATED 228 10^3/uL (150-450); RED CELL DISTRIBUTION WIDTH 12.1 % (11.5-14.5); WHITE BLOOD COUNT 8.4 10^3/uL (4.0-10.0)
[2017-03-14 14:29] LABS: ALBUMIN 4.6 GM/DL (3.2-5.2); ALBUMIN/GLOBULIN RATIO 1.18 (1.00-1.93); ALKALINE PHOSPHATASE 65 U/L (45-117); ALT/SGPT 33 U/L (12-78); ANION GAP 8 MEQ/L (8-16); AST/SGOT 12 U/L (7-37); BILIRUBIN,TOTAL 0.4 MG/DL (0.2-1.0); BLOOD UREA NITROGEN 10 MG/DL (7-18); CARBON DIOXIDE LEVEL 25 MEQ/L (21-32); CHLORIDE LEVEL 106 MEQ/L (98-107); CREATININE FOR GFR 0.79 MG/DL (0.55-1.02); GLOMERULAR FILTRATION RATE > 60.0 (>60); GLUCOSE, FASTING 89 MG/DL (70-105); POTASSIUM SERUM 3.9 MEQ/L (3.5-5.1); SODIUM LEVEL 139 MEQ/L (136-145); TOTAL PROTEIN 8.5 GM/DL (6.4-8.2)
[2017-03-14] MEDS ORDERED: ZOFR4TAB3 PO (14:53)
[2017-03-14] MEDS ORDERED: SYMB16INH INH (15:10)
[2017-03-14] MEDS ORDERED: CEFD1CAP8 PO (15:10)
[2017-03-14] MEDS ORDERED: PROMETHAZINE INJ 25 MG/ML VIAL (J2550) IV ONE (15:15)
[2017-03-14 15:40] VITALS: BP 112/63
== END 2017-03-14 15:52 | disposition home or self-care (01) ==
LOC: M ED 10:42
DX: R11.10 Vomiting, unspecified (principal); Z85.71 Personal history of Hodgkin lymphoma
CPT/HCPCS: 80053; 83690; 85025; 96361; 96374; 96375; 99284; J1200

== ENCOUNTER 2017-04-09 01:52 | Emergency (ER) | payer MEDICAID ==
[~2017-04-09] VITALS: Ht 165.1 cm; Wt 59.5 kg
[~2017-04-09 01:52] MED LIST changes: +CEFD1CAP8 PO; +SYMB16INH INH; +ZOFR4TAB3 PO
[2017-04-09 03:34] LABS: CONTROL LINE HCG INT CTR LINE PRESENT
[2017-04-09] MEDS ORDERED: TESS100C PO (04:34)
[2017-04-09 04:44] VITALS: BP 100/68
--- NOTE | 2017-04-09 08:03 | REP ---
Clinical: cough. Comparison: 10/27/2014. Technique: PA and lateral. Findings: The mediastinum and cardiac silhouette are normal. The lung mott are clear and without acute consolidation, effusion, or pneumothorax. The skeletal structures are intact and normal. Impression: 1. No acute cardiopulmonary process. Signed by Onel Encinas MD 04/09/2017 07:55 A
== END 2017-04-09 04:58 | disposition home or self-care (01) ==
LOC: M ED 01:52
DX: J06.9 Acute upper respiratory infection, unspecified (principal); G40.909 Epilepsy, unspecified, not intractable, without status epilepticus; R55 Syncope and collapse

== ENCOUNTER → 2017-05-18 | Outpatient (REF) | payer MEDICAID ==
[2017-05-18 20:01] LABS: HCG, SERUM QUANTITATIVE < 1.0 MIU/ML
== END ==
LOC: M LAB REF 16:40
DX: Z32.02 Encounter for pregnancy test, result negative (principal)
CPT/HCPCS: 84702

== ENCOUNTER 2017-06-11 05:13 | Emergency (ER) | payer MEDICAID ==
[2017-06-11] MEDS: NS 1,000 ML IV (06:07)
[2017-06-11] MEDS: levETIRAcetam INJection 500 MG in D5W MINI-BAG PLUS 100 ML IV (06:15)
[2017-06-11 06:31] LABS: BASO % 0.1 % (0.0-1.0); HEMATOCRIT 43.6 % (36.0-47.0); HEMOGLOBIN 14.5 g/dl (12.0-16.0); IMMATURE GRANULOCYTE % 0.3 % (0-3.0); LYMPH # 0.8 10^3/uL (1.5-6.5); LYMPH % 10.4 % (24.0-44.0); MEAN CORPUSCULAR HEMOGLOBIN 28.6 pg (27.0-33.0); MEAN CORPUSCULAR HGB CONC 33.3 g/dl (32.0-36.5); MONO # 0.2 10^3/uL (0.0-0.8); MONO % 2.4 % (0.0-5.0); NEUTROPHILS # 6.6 10^3/uL (1.8-7.7); NEUTROPHILS % 86.8 % (36.0-66.0); PLATELET COUNT, AUTOMATED 194 10^3/uL (150-450); RED BLOOD COUNT 5.07 10^6/uL (4.00-5.40); RED CELL DISTRIBUTION WIDTH 12.4 % (11.5-14.5); WHITE BLOOD COUNT 7.6 10^3/uL (4.0-10.0)
[2017-06-11] MEDS ORDERED: levETIRAcetam 500 MG/5 ML VIAL (KEPPRA IV)(J1953) As Ordered (06:31)
[2017-06-11 06:56] LABS: CONTROL LINE HCG INT CTR LINE PRESENT; HCG, SERUM QUALITATIVE NEGATIVE (NEGATIVE)
[2017-06-11 06:59] LABS: ALBUMIN 4.5 GM/DL (3.2-5.2); ALBUMIN/GLOBULIN RATIO 1.36 (1.00-1.93); ALKALINE PHOSPHATASE 62 U/L (45-117); ALT/SGPT 19 U/L (12-78); ANION GAP 9 MEQ/L (8-16); AST/SGOT 11 U/L (7-37); BILIRUBIN,DIRECT < 0.1 MG/DL (0.0-0.2); BILIRUBIN,TOTAL 0.4 MG/DL (0.2-1.0); BLOOD UREA NITROGEN 16 MG/DL (7-18); CARBON DIOXIDE LEVEL 24 MEQ/L (21-32); CHLORIDE LEVEL 108 MEQ/L (98-107); CREATININE FOR GFR 0.79 MG/DL (0.55-1.30); GLOMERULAR FILTRATION RATE > 60.0 (>60); GLUCOSE, FASTING 99 MG/DL (70-100); LIPASE 164 U/L (73-393); POTASSIUM SERUM 3.8 MEQ/L (3.5-5.1); SODIUM LEVEL 141 MEQ/L (136-145); TOTAL PROTEIN 7.8 GM/DL (6.4-8.2)
[2017-06-11 07:01] LABS: LACTIC ACID SEPSIS PROTOCOL 1.5 MMOL/L (0.4-2.0)
[2017-06-11] MEDS: ONDANSETRON 4MG/2ML VIAL (J2405) IV (07:53)
[2017-06-11 08:40] LABS: APPEARANCE, URINE HAZY (CLEAR); BACTERIA, URINE AUTO NEGATIVE (NEGATIVE); BILIRUBIN, URINE AUTO NEGATIVE (NEGATIVE); BLOOD, URINE BLOOD NEGATIVE (NEGATIVE); COLOR, URINE YELLOW (YELLOW); GLUCOSE, URINE (UA) AUTO NEGATIVE (NEGATIVE); KETONE, URINE AUTO NEGATIVE (NEGATIVE); LEUKOCYTE ESTERASE, URINE AUTO 2+ (NEGATIVE); NITRITE, URINE AUTO NEGATIVE (NEGATIVE); PROTEIN, URINE AUTO NEGATIVE (NEGATIVE); RBC, URINE AUTO 0 /HPF (0-3); SPECIFIC GRAVITY URINE AUTO 1.013 (1.002-1.035); SQUAMOUS EPITHELIAL CELL UR AU 3 /HPF (0-6); UROBILINOGEN, URINE AUTO 0.2 mg/dL (0.0-2.0); WBC, URINE AUTO 1 /HPF (0-3)
== END 2017-06-11 14:35 | disposition home or self-care (01) ==
LOC: M ED 05:13
DX: G40.909 Epilepsy, unspecified, not intractable, without status epilepticus (principal); E11.9 Type 2 diabetes mellitus without complications; H91.90 Unspecified hearing loss, unspecified ear; Z79.51 Long term (current) use of inhaled steroids; Z79.899 Other long term (current) drug therapy; Z91.041 Radiographic dye allergy status; Z88.5 Allergy status to narcotic agent; Z91.040 Latex allergy status
CPT/HCPCS: J2405

== ENCOUNTER 2017-06-20 11:12 | Emergency (ER) | payer MEDICAID | END 2017-06-20 12:48 | disposition left against medical advice (07) | LOC: M ED 11:12 | DX: Z77.098 Contact with and (suspected) exposure to other hazardous, chiefly nonmedicinal, chemicals (principal); R42 Dizziness and giddiness; R10.2 Pelvic and perineal pain; E03.9 Hypothyroidism, unspecified; J45.909 Unspecified asthma, uncomplicated; M54.9 Dorsalgia, unspecified; C81.90 Hodgkin lymphoma, unspecified, unspecified site; Z79.899 Other long term (current) drug therapy; Z79.51 Long term (current) use of inhaled steroids; Z91.041 Radiographic dye allergy status; Z91.040 Latex allergy status; Z88.8 Allergy status to other drugs, medicaments and biological substances | CPT/HCPCS: 99283 ==

== ENCOUNTER 2017-06-21 13:10 | Emergency (ER) | payer MEDICAID ==
[2017-06-21 14:16] LABS: BASO % 0.3 % (0.0-1.0); EOS # 0.1 10^3/uL (0.0-0.50); EOS % 0.5 % (0.0-3.0); HEMATOCRIT 44.4 % (36.0-47.0); HEMOGLOBIN 14.9 g/dl (12.0-16.0); IMMATURE GRANULOCYTE % 0.3 % (0-3.0); LYMPH # 0.6 10^3/uL (1.5-6.5); LYMPH % 5.8 % (24.0-44.0); MEAN CORPUSCULAR HEMOGLOBIN 28.8 pg (27.0-33.0); MEAN CORPUSCULAR HGB CONC 33.6 g/dl (32.0-36.5); MEAN CORPUSCULAR VOLUME 85.9 fl (80.0-96.0); MONO # 0.3 10^3/uL (0.0-0.8); MONO % 2.9 % (0.0-5.0); NEUTROPHILS # 8.8 10^3/uL (1.8-7.7); NEUTROPHILS % 90.2 % (36.0-66.0); PLATELET COUNT, AUTOMATED 162 10^3/uL (150-450); RED BLOOD COUNT 5.17 10^6/uL (4.00-5.40); RED CELL DISTRIBUTION WIDTH 12.1 % (11.5-14.5); WHITE BLOOD COUNT 9.7 10^3/uL (4.0-10.0)
[2017-06-21 14:33] LABS: LACTIC ACID SEPSIS PROTOCOL 2.2 MMOL/L (0.4-2.0)
[2017-06-21] MEDS: NS 500 ML IV (15:00)
[2017-06-21] MEDS: METOCLOPRAMIDE INJ 10MG/2ML VIAL (J2765) IV (15:05)
[2017-06-21 15:26] LABS: ANION GAP 10 MEQ/L (8-16); BLOOD UREA NITROGEN 14 MG/DL (7-18); CALCIUM LEVEL 8.8 MG/DL (8.5-10.1); CARBON DIOXIDE LEVEL 23 MEQ/L (21-32); CHLORIDE LEVEL 107 MEQ/L (98-107); CREATININE FOR GFR 0.99 MG/DL (0.55-1.30); GLOMERULAR FILTRATION RATE > 60.0 (>60); GLUCOSE, FASTING 91 MG/DL (70-100); POTASSIUM SERUM 4.1 MEQ/L (3.5-5.1); SODIUM LEVEL 140 MEQ/L (136-145)
[2017-06-21 15:54] LABS: CONTROL LINE HCG INT CTR LINE PRESENT; HCG, SERUM QUALITATIVE NEGATIVE (NEGATIVE)
[2017-06-25 00:08] LABS: LAMOTRIGINE (LAMICTAL) 8.2 ug/mL (2.0-20.0)
== END 2017-06-21 17:07 | disposition home or self-care (01) ==
LOC: M ED 13:10
DX: R56.9 Unspecified convulsions (principal); E11.9 Type 2 diabetes mellitus without complications; Z79.899 Other long term (current) drug therapy; Z86.69 Personal history of other diseases of the nervous system and sense organs; Z86.79 Personal history of other diseases of the circulatory system; Z91.041 Radiographic dye allergy status; Z88.5 Allergy status to narcotic agent; Z91.040 Latex allergy status
CPT/HCPCS: J2765

== ENCOUNTER 2017-10-03 11:05 | Emergency (ER) | payer MEDICAID | END 2017-10-03 12:12 | disposition home or self-care (01) | LOC: M ED 11:05 | DX: Z76.0 Encounter for issue of repeat prescription (principal); J06.9 Acute upper respiratory infection, unspecified; Z91.040 Latex allergy status; Z88.5 Allergy status to narcotic agent; Z91.041 Radiographic dye allergy status; Z79.899 Other long term (current) drug therapy | CPT/HCPCS: 99282 ==

== ENCOUNTER 2017-10-05 02:36 | Emergency (ER) | payer MEDICAID ==
[2017-10-05 03:50] LABS: BASO % 0.5 % (0.0-1.0); EOS # 0.1 10^3/uL (0.0-0.50); EOS % 1.8 % (0.0-3.0); HEMATOCRIT 42.4 % (36.0-47.0); HEMOGLOBIN 13.7 g/dl (12.0-15.5); LYMPH # 1.1 10^3/uL (1.5-6.5); LYMPH % 27.7 % (24.0-44.0); MEAN CORPUSCULAR HGB CONC 32.3 g/dl (32.0-36.5); MEAN CORPUSCULAR VOLUME 86.5 fl (80.0-96.0); MONO # 0.4 10^3/uL (0.0-0.8); MONO % 11.5 % (0.0-5.0); NEUTROPHILS # 2.2 10^3/uL (1.8-7.7); NEUTROPHILS % 58.5 % (36.0-66.0); PLATELET COUNT, AUTOMATED 159 10^3/uL (150-450); RED CELL DISTRIBUTION WIDTH 12.9 % (11.5-14.5); WHITE BLOOD COUNT 3.8 10^3/uL (4.0-10.0)
[2017-10-05] MEDS: levETIRAcetam INJection 500 MG in D5W MINI-BAG PLUS 100 ML IV (04:00)
[2017-10-05] MEDS: NS 1,000 ML IV (04:00)
[2017-10-05] MEDS ORDERED: GASTROGRAFIN SOLUTION 30ML (Q9963) As Ordered (04:03)
[2017-10-05 04:10] LABS: CONTROL LINE HCG INT CTR LINE PRESENT; HCG, SERUM QUALITATIVE NEGATIVE (NEGATIVE)
[2017-10-05] MEDS: MORPHINE 2 MG/ML 1ML SYRINGE (J2270) IV (04:15)
[2017-10-05 04:18] LABS: ALBUMIN 4.5 GM/DL (3.2-5.2); ALBUMIN/GLOBULIN RATIO 1.29 (1.00-1.93); ALKALINE PHOSPHATASE 75 U/L (45-117); ALT/SGPT 18 U/L (12-78); ANION GAP 8 MEQ/L (8-16); AST/SGOT 16 U/L (7-37); BILIRUBIN,DIRECT < 0.1 MG/DL (0.0-0.2); BILIRUBIN,TOTAL 0.2 MG/DL (0.2-1.0); BLOOD UREA NITROGEN 9 MG/DL (7-18); CALCIUM LEVEL 8.4 MG/DL (8.5-10.1); CARBON DIOXIDE LEVEL 27 MEQ/L (21-32); CHLORIDE LEVEL 108 MEQ/L (98-107); CREATININE FOR GFR 0.82 MG/DL (0.55-1.30); GLOMERULAR FILTRATION RATE > 60.0 (>60); GLUCOSE, FASTING 93 MG/DL (70-100); LIPASE 203 U/L (73-393); POTASSIUM SERUM 4.1 MEQ/L (3.5-5.1); SODIUM LEVEL 143 MEQ/L (136-145)
[2017-10-05 04:35] LABS: APPEARANCE, URINE CLEAR (CLEAR); BACTERIA, URINE AUTO 1+ (NEGATIVE); BILIRUBIN, URINE AUTO NEGATIVE (NEGATIVE); BLOOD, URINE BLOOD 1+ (NEGATIVE); COLOR, URINE STRAW (YELLOW); GLUCOSE, URINE (UA) AUTO NEGATIVE (NEGATIVE); KETONE, URINE AUTO NEGATIVE (NEGATIVE); LEUKOCYTE ESTERASE, URINE AUTO NEGATIVE (NEGATIVE); NITRITE, URINE AUTO NEGATIVE (NEGATIVE); PROTEIN, URINE AUTO NEGATIVE (NEGATIVE); RBC, URINE AUTO 1 /HPF (0-3); SPECIFIC GRAVITY URINE AUTO 1.008 (1.002-1.035); SQUAMOUS EPITHELIAL CELL UR AU 3 /HPF (0-6); UROBILINOGEN, URINE AUTO 0.2 mg/dL (0.0-2.0); WBC, URINE AUTO 1 /HPF (0-3)
[2017-10-05] MEDS ORDERED: ALBUTEROL SULFATE 2.5 MG/0.5 ML INH NEB SOLN As Ordered (07:14)
[2017-10-05] MEDS: levETIRAcetam 250MG TABLET (KEPPRA) PO (07:24)
[2017-10-05] MEDS: lamoTRIgine 100MG TAB PO (07:24)
== END 2017-10-05 08:18 | disposition home or self-care (01) ==
LOC: M ED 02:36
DX: R10.31 Right lower quadrant pain (principal); R11.2 Nausea with vomiting, unspecified; G40.909 Epilepsy, unspecified, not intractable, without status epilepticus; F44.5 Conversion disorder with seizures or convulsions; C81.90 Hodgkin lymphoma, unspecified, unspecified site; K21.9 Gastro-esophageal reflux disease without esophagitis; J45.909 Unspecified asthma, uncomplicated; Z87.828 Personal history of other (healed) physical injury and trauma; Z91.041 Radiographic dye allergy status; Z91.040 Latex allergy status; Z88.8 Allergy status to other drugs, medicaments and biological substances; Z79.899 Other long term (current) drug therapy; Z79.51 Long term (current) use of inhaled steroids
CPT/HCPCS: J1953

== ENCOUNTER → 2017-10-31 | Outpatient (CLI) | payer MEDICAID ==
[2017-10-31 09:42] LABS: BASO % 0.7 % (0.0-1.0); EOS % 1.3 % (0.0-3.0); HEMOGLOBIN 12.5 g/dl (12.0-15.5); IMMATURE GRANULOCYTE % 0.3 % (0-3.0); LYMPH # 1.2 10^3/uL (1.5-6.5); LYMPH % 41.3 % (24.0-44.0); MEAN CORPUSCULAR HEMOGLOBIN 28.3 pg (27.0-33.0); MEAN CORPUSCULAR HGB CONC 32.9 g/dl (32.0-36.5); MEAN CORPUSCULAR VOLUME 86.2 fl (80.0-96.0); MONO # 0.3 10^3/uL (0.0-0.8); MONO % 9.3 % (0.0-5.0); NEUTROPHILS # 1.4 10^3/uL (1.8-7.7); NEUTROPHILS % 47.1 % (36.0-66.0); PLATELET COUNT, AUTOMATED 167 10^3/uL (150-450); RED BLOOD COUNT 4.41 10^6/uL (4.00-5.40); RED CELL DISTRIBUTION WIDTH 12.4 % (11.5-14.5)
[2017-10-31 10:10] LABS: ALBUMIN 3.8 GM/DL (3.2-5.2); ALBUMIN/GLOBULIN RATIO 1.19 (1.00-1.93); ALKALINE PHOSPHATASE 57 U/L (45-117); ALT/SGPT 19 U/L (12-78); ANION GAP 8 MEQ/L (8-16); AST/SGOT 12 U/L (7-37); BILIRUBIN,TOTAL 0.3 MG/DL (0.2-1.0); BLOOD UREA NITROGEN 18 MG/DL (7-18); CALCIUM LEVEL 8.3 MG/DL (8.5-10.1); CARBON DIOXIDE LEVEL 26 MEQ/L (21-32); CHLORIDE LEVEL 108 MEQ/L (98-107); CREATININE FOR GFR 0.74 MG/DL (0.55-1.30); FREE T4 0.74 NG/DL (0.76-1.46); GLOMERULAR FILTRATION RATE > 60.0 (>60); GLUCOSE, FASTING 83 MG/DL (70-100); POTASSIUM SERUM 4.2 MEQ/L (3.5-5.1); SODIUM LEVEL 142 MEQ/L (136-145)
[2017-11-03 13:33] LABS: LAMOTRIGINE (LAMICTAL) 3.4 ug/mL (2.0-20.0)
== END ==
LOC: M LAB 08:54
DX: Z00.00 Encounter for general adult medical examination without abnormal findings (principal); G40.909 Epilepsy, unspecified, not intractable, without status epilepticus; Z85.71 Personal history of Hodgkin lymphoma
CPT/HCPCS: 84443

== ENCOUNTER 2017-11-12 06:46 | Emergency (ER) | payer MEDICAID ==
[2017-11-12] MEDS ORDERED: AMMONIA AROMATIC INHALANT (FLOOR STOCK) As Ordered (06:55)
[2017-11-12 07:02] LABS: BEDSIDE GLUCOSE 67 MG/DL (70-105)
[2017-11-12] MEDS: NS 1,000 ML IV (07:32)
[2017-11-12 07:39] LABS: BASO % 0.2 % (0.0-1.0); EOS % 0.3 % (0.0-3.0); HEMATOCRIT 42.3 % (36.0-47.0); HEMOGLOBIN 13.7 g/dl (12.0-15.5); IMMATURE GRANULOCYTE % 0.3 % (0-3.0); LYMPH # 0.8 10^3/uL (1.5-6.5); LYMPH % 12.8 % (24.0-44.0); MEAN CORPUSCULAR HEMOGLOBIN 28.4 pg (27.0-33.0); MEAN CORPUSCULAR HGB CONC 32.4 g/dl (32.0-36.5); MEAN CORPUSCULAR VOLUME 87.6 fl (80.0-96.0); MONO # 0.3 10^3/uL (0.0-0.8); MONO % 4.7 % (0.0-5.0); NEUTROPHILS % 81.7 % (36.0-66.0); PLATELET COUNT, AUTOMATED 178 10^3/uL (150-450); RED BLOOD COUNT 4.83 10^6/uL (4.00-5.40); RED CELL DISTRIBUTION WIDTH 12.6 % (11.5-14.5); WHITE BLOOD COUNT 6.2 10^3/uL (4.0-10.0)
[2017-11-12 07:50] LABS: CONTROL LINE HCG INT CTR LINE PRESENT; HCG, SERUM QUALITATIVE NEGATIVE (NEGATIVE)
[2017-11-12 08:02] LABS: VENOUS BASE EXCESS -0.1 (-2.0-2.0); VENOUS HCO3 26.8 MEQ/L (23.0-27.0); VENOUS O2 SATURATION 56.4 % (60.0-80.0); VENOUS PARTIAL PRESSURE CO2 53.3 mmHg (38.0-50.0); VENOUS PARTIAL PRESSURE O2 33.1 mmHg (30.0-50.0); VENOUS STANDARD HCO3 23.5 MEQ/L; VENOUS TOTAL CO2 28.5 MEQ/L (24.0-28.0)
[2017-11-12 08:06] LABS: ACETAMINOPHEN LEVEL < 2.0 UG/ML (10.0-30.0); ALBUMIN 4.3 GM/DL (3.2-5.2); ALBUMIN/GLOBULIN RATIO 1.26 (1.00-1.93); ALKALINE PHOSPHATASE 63 U/L (45-117); ALT/SGPT 18 U/L (12-78); ANION GAP 7 MEQ/L (8-16); AST/SGOT 10 U/L (7-37); BILIRUBIN,DIRECT < 0.1 MG/DL (0.0-0.2); BILIRUBIN,TOTAL 0.2 MG/DL (0.2-1.0); BLOOD UREA NITROGEN 8 MG/DL (7-18); CALCIUM LEVEL 8.6 MG/DL (8.5-10.1); CARBON DIOXIDE LEVEL 28 MEQ/L (21-32); CHLORIDE LEVEL 106 MEQ/L (98-107); CREATININE FOR GFR 0.99 MG/DL (0.55-1.30); ETHYL ALCOHOL (ETHANOL) < 0.003 % (0.000-0.010); GLOMERULAR FILTRATION RATE > 60.0 (>60); GLUCOSE, FASTING 87 MG/DL (70-100); SALICYLATE LEVEL < 1.7 MG/DL (5.0-30.0); SODIUM LEVEL 141 MEQ/L (136-145); TOTAL PROTEIN 7.7 GM/DL (6.4-8.2)
[2017-11-12 08:18] LABS: KETONE, URINE AUTO RFX NEGATIVE (NEGATIVE); LEUKOCYTE ESTERASE UR AUTO RFX NEGATIVE (NEGATIVE); NITRITE, URINE AUTO RFX NEGATIVE (NEGATIVE); RBC, URINE AUTO RFX 1 /HPF (0-3); SPECIFIC GRAVITY UR AUTO RFX 1.002 (1.002-1.035); SQUAM EPITHELIAL CELL UR AURFX 0 /HPF (0-6); WBC, URINE AUTO RFX 1 /HPF (0-3)
[2017-11-12 08:22] LABS: AMMONIA < 10 uMOL/L (<32)
[2017-11-12 08:34] LABS: AMPHETAMINES LEVEL URINE NEGATIVE (NEGATIVE); BARBITURATES URINE NEGATIVE (NEGATIVE); BENZODIAZEPINES URINE POSITIVE (NEGATIVE); CANNABINOIDS URINE NEGATIVE (NEGATIVE); COCAINE METABOLITE URINE NEGATIVE (NEGATIVE); METHADONE URINE NEGATIVE (NEGATIVE); OPIATES URINE NEGATIVE (NEGATIVE); PHENCYCLIDINE URINE NEGATIVE (NEGATIVE)
[2017-11-12] MEDS: levETIRAcetam 250MG TABLET (KEPPRA) PO (09:53)
[2017-11-15 08:36] LABS: LAMOTRIGINE (LAMICTAL) 4.6 ug/mL (2.0-20.0)
== END 2017-11-12 12:11 | disposition home or self-care (01) ==
LOC: M ED 06:46
DX: R56.9 Unspecified convulsions (principal); G35 Multiple sclerosis; Z85.72 Personal history of non-Hodgkin lymphomas; Z79.899 Other long term (current) drug therapy; Z88.8 Allergy status to other drugs, medicaments and biological substances; Z91.040 Latex allergy status; Z91.041 Radiographic dye allergy status
CPT/HCPCS: 71045

== ENCOUNTER 2017-11-13 08:25 | Emergency (ER) | payer MEDICAID ==
[2017-11-13 10:04] LABS: CPK CREATINE PHOSPHOKINASE 184 U/L (26-192)
[2017-11-13 10:10] LABS: PROLACTIN 5.3 NG/ML
== END 2017-11-13 11:23 | disposition home or self-care (01) ==
LOC: M ED 08:25
DX: G40.909 Epilepsy, unspecified, not intractable, without status epilepticus (principal); Z79.899 Other long term (current) drug therapy; Z88.8 Allergy status to other drugs, medicaments and biological substances; Z91.040 Latex allergy status; Z91.041 Radiographic dye allergy status
CPT/HCPCS: 82550

== ENCOUNTER 2017-11-14 07:10 | Emergency (ER) | payer MEDICAID ==
[2017-11-14 09:18] LABS: AMPHETAMINES LEVEL URINE NEGATIVE (NEGATIVE); BARBITURATES URINE NEGATIVE (NEGATIVE); BENZODIAZEPINES URINE POSITIVE (NEGATIVE); CANNABINOIDS URINE NEGATIVE (NEGATIVE); COCAINE METABOLITE URINE NEGATIVE (NEGATIVE); METHADONE URINE NEGATIVE (NEGATIVE); OPIATES URINE NEGATIVE (NEGATIVE); PHENCYCLIDINE URINE NEGATIVE (NEGATIVE)
[2017-11-14] MEDS: ONDANSETRON 4 MG ORAL DISINTEGRATING TAB (Q0162 PER 1MG) PO (10:06)
[2017-11-14 10:24] LABS: HEMATOCRIT 39.8 % (36.0-47.0); HEMOGLOBIN 13.2 g/dl (12.0-15.5); MEAN CORPUSCULAR HEMOGLOBIN 28.7 pg (27.0-33.0); MEAN CORPUSCULAR HGB CONC 33.2 g/dl (32.0-36.5); MEAN CORPUSCULAR VOLUME 86.5 fl (80.0-96.0); PLATELET COUNT, AUTOMATED 167 10^3/uL (150-450); RED CELL DISTRIBUTION WIDTH 12.5 % (11.5-14.5); WHITE BLOOD COUNT 6.8 10^3/uL (4.0-10.0)
[2017-11-14 10:58] LABS: CONTROL LINE HCG INT CTR LINE PRESENT; HCG, SERUM QUALITATIVE NEGATIVE (NEGATIVE)
[2017-11-14 11:13] LABS: ALBUMIN 4.2 GM/DL (3.2-5.2); ALBUMIN/GLOBULIN RATIO 1.24 (1.00-1.93); ALKALINE PHOSPHATASE 64 U/L (45-117); ALT/SGPT 19 U/L (12-78); ANION GAP 11 MEQ/L (8-16); AST/SGOT 9 U/L (7-37); BILIRUBIN,DIRECT 0.1 MG/DL (0.0-0.2); BILIRUBIN,TOTAL 0.5 MG/DL (0.2-1.0); BLOOD UREA NITROGEN 6 MG/DL (7-18); CALCIUM LEVEL 8.6 MG/DL (8.5-10.1); CARBON DIOXIDE LEVEL 26 MEQ/L (21-32); CHLORIDE LEVEL 103 MEQ/L (98-107); ETHYL ALCOHOL (ETHANOL) < 0.003 % (0.000-0.010); GLOMERULAR FILTRATION RATE > 60.0 (>60); GLUCOSE, FASTING 86 MG/DL (70-100); POTASSIUM SERUM 4.1 MEQ/L (3.5-5.1); SALICYLATE LEVEL < 1.7 MG/DL (5.0-30.0); SODIUM LEVEL 140 MEQ/L (136-145); TOTAL PROTEIN 7.6 GM/DL (6.4-8.2)
[2017-11-14 11:19] LABS: ACETAMINOPHEN LEVEL < 2.0 UG/ML (10.0-30.0)
[2017-11-14] MEDS: PROMETHAZINE INJ 25 MG/ML VIAL (J2550) IM (11:43)
== END 2017-11-14 14:45 | disposition home or self-care (01) ==
LOC: M ED 07:10
DX: F33.9 Major depressive disorder, recurrent, unspecified (principal); Z76.5 Malingerer [conscious simulation]; G40.909 Epilepsy, unspecified, not intractable, without status epilepticus; Z85.72 Personal history of non-Hodgkin lymphomas; Z79.899 Other long term (current) drug therapy; Z88.8 Allergy status to other drugs, medicaments and biological substances; Z91.040 Latex allergy status; Z91.041 Radiographic dye allergy status
CPT/HCPCS: Q0162

== ENCOUNTER → 2017-12-05 | Outpatient (REF) | payer MEDICAID ==
[2017-12-05 19:21] LABS: HCG, SERUM QUANTITATIVE < 1.0 MIU/ML
== END ==
LOC: M SFHCPLAZ 15:53
DX: N92.6 Irregular menstruation, unspecified (principal)

== ENCOUNTER → 2017-12-13 | Outpatient (REF) | payer MEDICAID ==
[2017-12-13 15:58] LABS: FREE T4 0.71 NG/DL (0.76-1.46)
== END ==
LOC: M SFHCPLAZ 12:46
DX: E03.9 Hypothyroidism, unspecified (principal)
CPT/HCPCS: 84443

== ENCOUNTER 2018-01-07 07:08 | Emergency (ER) | payer MEDICAID ==
[2018-01-07] MEDS ORDERED: LORazepam 2 MG/ML VIAL (J2060) IV (07:39)
[2018-01-07] MEDS ORDERED: levETIRAcetam INJection 1,000 MG in D5W 100 ML IV (07:45)
[2018-01-07 08:20] LABS: BEDSIDE GLUCOSE 99 MG/DL (70-105)
[2018-01-07 08:35] LABS: BASO % 0.2 % (0.0-1.0); EOS % 0.2 % (0.0-3.0); HEMATOCRIT 40.5 % (36.0-47.0); HEMOGLOBIN 13.5 g/dl (12.0-15.5); IMMATURE GRANULOCYTE % 0.5 % (0-3.0); LYMPH # 0.6 10^3/uL (1.5-6.5); LYMPH % 6.1 % (24.0-44.0); MEAN CORPUSCULAR HEMOGLOBIN 28.5 pg (27.0-33.0); MEAN CORPUSCULAR HGB CONC 33.3 g/dl (32.0-36.5); MEAN CORPUSCULAR VOLUME 85.6 fl (80.0-96.0); MONO # 0.4 10^3/uL (0.0-0.8); MONO % 3.6 % (0.0-5.0); NEUTROPHILS # 9.3 10^3/uL (1.8-7.7); NEUTROPHILS % 89.4 % (36.0-66.0); PLATELET COUNT, AUTOMATED 179 10^3/uL (150-450); RED BLOOD COUNT 4.73 10^6/uL (4.00-5.40); WHITE BLOOD COUNT 10.4 10^3/uL (4.0-10.0)
[2018-01-07 08:53] LABS: CONTROL LINE HCG INT CTR LINE PRESENT; HCG, SERUM QUALITATIVE NEGATIVE (NEGATIVE)
[2018-01-07 09:00] LABS: ALBUMIN 4.5 GM/DL (3.2-5.2); ALBUMIN/GLOBULIN RATIO 1.32 (1.00-1.93); ALKALINE PHOSPHATASE 73 U/L (45-117); ALT/SGPT 15 U/L (12-78); ANION GAP 10 MEQ/L (8-16); AST/SGOT 12 U/L (7-37); BILIRUBIN,DIRECT 0.1 MG/DL (0.0-0.2); BILIRUBIN,TOTAL 0.5 MG/DL (0.2-1.0); BLOOD UREA NITROGEN 13 MG/DL (7-18); CALCIUM LEVEL 9.1 MG/DL (8.5-10.1); CARBON DIOXIDE LEVEL 22 MEQ/L (21-32); CHLORIDE LEVEL 108 MEQ/L (98-107); CREATININE FOR GFR 0.81 MG/DL (0.55-1.30); GLOMERULAR FILTRATION RATE > 60.0 (>60); GLUCOSE, FASTING 92 MG/DL (70-100); LIPASE 290 U/L (73-393); POTASSIUM SERUM 4.2 MEQ/L (3.5-5.1); SODIUM LEVEL 140 MEQ/L (136-145); TOTAL PROTEIN 7.9 GM/DL (6.4-8.2)
[2018-01-07 09:16] LABS: THYROID STIMULATING HORMONE 0.701 uIU/ML (0.358-3.740)
[2018-01-07] MEDS: levETIRAcetam 250MG TABLET (KEPPRA) PO (09:27)
[2018-01-07] MEDS: lamoTRIgine 100MG TAB PO (09:27)
[2018-01-07] MEDS: NS 1,000 ML IV (09:29)
[2018-01-07] MEDS: SUCRALFATE SUSP 1GM/10ML UD PO (09:32)
[2018-01-07] MEDS: ONDANSETRON 4MG/2ML VIAL (J2405) IV (09:52)
[2018-01-07 11:44] LABS: AMPHETAMINES LEVEL URINE NEGATIVE (NEGATIVE); BARBITURATES URINE NEGATIVE (NEGATIVE); BENZODIAZEPINES URINE NEGATIVE (NEGATIVE); CANNABINOIDS URINE NEGATIVE (NEGATIVE); COCAINE METABOLITE URINE NEGATIVE (NEGATIVE); METHADONE URINE NEGATIVE (NEGATIVE); OPIATES URINE NEGATIVE (NEGATIVE); PHENCYCLIDINE URINE NEGATIVE (NEGATIVE)
[2018-01-10 00:07] LABS: LAMOTRIGINE (LAMICTAL) 5.8 ug/mL (2.0-20.0)
[2018-01-10 00:07] LABS: LEVETIRACETAM (KEPPRA) 14.8 ug/mL (10.0-40.0)
== END 2018-01-07 11:32 | disposition home or self-care (01) ==
LOC: M ED 07:08
DX: G40.909 Epilepsy, unspecified, not intractable, without status epilepticus (principal); J45.909 Unspecified asthma, uncomplicated; E07.9 Disorder of thyroid, unspecified; C81.90 Hodgkin lymphoma, unspecified, unspecified site; Z87.09 Personal history of other diseases of the respiratory system; Z91.041 Radiographic dye allergy status; Z88.4 Allergy status to anesthetic agent; Z91.040 Latex allergy status; Z79.899 Other long term (current) drug therapy; Z79.51 Long term (current) use of inhaled steroids
CPT/HCPCS: J2405

== ENCOUNTER 2018-04-17 09:38 | Emergency (ER) | payer MEDICAID ==
[~2018-04-17] VITALS: Ht 162.6 cm; Wt 54.5 kg
[~2018-04-17 09:38] MED LIST changes: -ACET50TA PO; +ALBU83IN NEB; +BENZ200C70 PO; +CLOR7.5T3 PO; +MAPA500T17 PO; +MIRA3350 PO; +NAPR-885 PO; -NAPR500T3 PO; +SYMB16INH; +TESS100C PO; +ZOFR4TAB14 PO; -ZOFR4TAB3 PO
[2018-04-17] MEDS ORDERED: MULTCAP PO (09:45)
[2018-04-17 11:12] LABS: INFLUENZA A AMPLIFICATION NEGATIVE (NEGATIVE); INFLUENZA B AMPLIFICATION NEGATIVE (NEGATIVE)
[2018-04-17] MEDS ORDERED: AUGM875T28 PO (11:18)
[2018-04-17] MEDS ORDERED: OSEL75CA PO (11:18)
[2018-04-17 11:19] VITALS: BP 110/62
[2018-04-17] MEDS ORDERED: AUGMENTIN 875 MG TAB PO ONE (11:30)
[2018-04-17] MEDS ORDERED: OSELTAMIVIR PHOSPHATE 75 MG CAP (TAMIFLU) PO ONE (11:30)
== END 2018-04-17 11:32 | disposition home or self-care (01) ==
LOC: M ED 09:38
DX: H66.93 Otitis media, unspecified, bilateral (principal); Z20.828 Contact with and (suspected) exposure to other viral communicable diseases

== ENCOUNTER 2018-05-24 07:08 | Emergency (ER) | payer MEDICAID ==
[~2018-05-24] VITALS: Ht 162.6 cm; Wt 59.1 kg
[~2018-05-24 07:08] MED LIST changes: +AUGM875T28 PO; -MAPA500T17 PO; +MAPA500T2 PO; +MULTCAP PO; +OSEL75CA PO
[2018-05-24] MEDS ORDERED: FOLI1TAB11 (07:20)
[2018-05-24] MEDS ORDERED: ZOFR8TAB24 PO (07:20)
[2018-05-24] MEDS ORDERED: LEVO112T2 (07:20)
[2018-05-24] MEDS ORDERED: NS 1,000 ML IV ONE (08:15)
[2018-05-24] MEDS ORDERED: MORPHINE 4 MG/ML 1ML VIAL/SYRINGE (J2270) IV PRN (08:15)
[2018-05-24] MEDS ORDERED: ONDANSETRON 4MG/2ML VIAL (J2405) IV ONE (08:15)
--- NOTE | 2018-05-24 08:54 | REP ---
CT abdomen and pelvis without IV or oral contrast: History: Left-sided abdominal and flank pain. Comparison study October 05, 2017. 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 The lung bases are clear on axial CT images. The liver and the spleen are normal in size homogeneous in texture. No adrenal lesion is seen. The gallbladder is unremarkable. No pancreatic abnormalities observed. There is no evidence of hydronephrosis or intrarenal calculus on either side. Small and large intestinal bowel loops are unremarkable in the abdomen and pelvis. A normal appendix is seen in the right central pelvis. The uterus is somewhat retroverted but intact. There is a tiny sliver of physiologic fluid in the cul-de-sac. A small cyst is seen in the right ovary 1.7 cm in diameter consistent with a normal follicle cyst. No abdominal wall defect is seen. No bony destructive lesion is seen. Impression: No significant abnormality. Slightly retroverted uterus. Tiny sliver of physiologic fluid in the cul-de-sac. Follicle cyst right ovary. Normal appendix. No urinary tract calculus seen. No hydronephrosis. Electronically Signed by Luke Ramesh MD 05/24/2018 01:48 P
[2018-05-24 09:25] LABS: BASO % 0.4 % (0.0-1.0); EOS % 0.1 % (0.0-3.0); HEMATOCRIT 37.3 % (36.0-47.0); HEMOGLOBIN 12.6 g/dl (12.0-15.5); LYMPH # 1.3 10^3/uL (1.5-6.5); LYMPH % 17.9 % (24.0-44.0); MEAN CORPUSCULAR HEMOGLOBIN 28.5 pg (27.0-33.0); MEAN CORPUSCULAR HGB CONC 33.8 g/dl (32.0-36.5); MEAN CORPUSCULAR VOLUME 84.4 fl (80.0-96.0); MONO # 0.3 10^3/uL (0.0-0.8); MONO % 4.6 % (0.0-5.0); NEUTROPHILS # 5.4 10^3/uL (1.8-7.7); NEUTROPHILS % 76.9 % (36.0-66.0); PLATELET COUNT, AUTOMATED 169 10^3/uL (150-450); RED BLOOD COUNT 4.42 10^6/uL (4.00-5.40)
[2018-05-24 09:49] LABS: ALBUMIN 3.8 GM/DL (3.2-5.2); ALT/SGPT 13 U/L (12-78); BILIRUBIN,DIRECT 0.1 MG/DL (0.0-0.2); BILIRUBIN,TOTAL 0.5 MG/DL (0.2-1.0); BLOOD UREA NITROGEN 12 MG/DL (7-18); CALCIUM LEVEL 8.4 MG/DL (8.5-10.1); CARBON DIOXIDE LEVEL 22 MEQ/L (21-32); CHLORIDE LEVEL 109 MEQ/L (98-107); CREATININE FOR GFR 0.78 MG/DL (0.55-1.30); GLOMERULAR FILTRATION RATE > 60.0 (>60); GLUCOSE, FASTING 88 MG/DL (70-100); POTASSIUM SERUM 3.7 MEQ/L (3.5-5.1); SODIUM LEVEL 138 MEQ/L (136-145); TOTAL PROTEIN 6.8 GM/DL (6.4-8.2)
[2018-05-24] MEDS ORDERED: METOCLOPRAMIDE INJ 10MG/2ML VIAL (J2765) IV ONE (10:00)
[2018-05-24] MEDS ORDERED: KETOROLAC 30 MG/ML VIAL (J1885) IV ONE (10:00)
[2018-05-24] MEDS ORDERED: DICY20TA PO (10:52)
[2018-05-24] MEDS ORDERED: ONDA4TAB6 PO (10:52)
[2018-05-24 11:20] VITALS: BP 113/70
== END 2018-05-24 11:22 | disposition home or self-care (01) ==
LOC: M ED 07:08
DX: R10.9 Unspecified abdominal pain (principal); R51 Headache; R56.9 Unspecified convulsions; J45.909 Unspecified asthma, uncomplicated; Z87.828 Personal history of other (healed) physical injury and trauma; Z94.81 Bone marrow transplant status; Z85.71 Personal history of Hodgkin lymphoma; K21.9 Gastro-esophageal reflux disease without esophagitis; Z87.440 Personal history of urinary (tract) infections; E03.9 Hypothyroidism, unspecified; M54.9 Dorsalgia, unspecified; Z79.899 Other long term (current) drug therapy; Z91.041 Radiographic dye allergy status; Z91.040 Latex allergy status; Z88.8 Allergy status to other drugs, medicaments and biological substances
CPT/HCPCS: 36415; 74176; 80048; 80076; 81001; 81025; 85025; 87086; 96374; 96375; 99284; J1885; J2270; J2405; J2765

== ENCOUNTER 2018-06-08 22:47 | Emergency (ER) | payer MEDICAID ==
[~2018-06-08] VITALS: Ht 157.5 cm; Wt 59.1 kg
[~2018-06-08 22:47] MED LIST changes: +DICY20TA PO; +FOLI1TAB11; +LEVO112T2; +ZOFR8TAB24 PO
[2018-06-08] MEDS ORDERED: levETIRAcetam INJection 750 MG in D5W 100 ML IV ONE (23:45)
[2018-06-08] MEDS ORDERED: NS 1,000 ML IV ONE (23:45)
[2018-06-08] MEDS ORDERED: ONDANSETRON 4MG/2ML VIAL (J2405) As Ordered ONE (23:51)
[2018-06-08 23:53] LABS: HCG, SERUM QUALITATIVE NEGATIVE (NEGATIVE)
[2018-06-09 00:03] LABS: ALBUMIN 4.3 GM/DL (3.2-5.2); ALT/SGPT 17 U/L (12-78); BILIRUBIN,DIRECT 0.1 MG/DL (0.0-0.2); BILIRUBIN,TOTAL 0.6 MG/DL (0.2-1.0); BLOOD UREA NITROGEN 17 MG/DL (7-18); CALCIUM LEVEL 8.4 MG/DL (8.5-10.1); CARBON DIOXIDE LEVEL 23 MEQ/L (21-32); CHLORIDE LEVEL 106 MEQ/L (98-107); GLOMERULAR FILTRATION RATE > 60.0 (>60); GLUCOSE, FASTING 93 MG/DL (70-100); LIPASE 154 U/L (73-393); POTASSIUM SERUM 3.8 MEQ/L (3.5-5.1); SODIUM LEVEL 142 MEQ/L (136-145); TOTAL PROTEIN 7.6 GM/DL (6.4-8.2)
[2018-06-09 00:15] LABS: BASO % 0.2 % (0.0-1.0); EOS % 0.5 % (0.0-3.0); HEMATOCRIT 40.4 % (36.0-47.0); HEMOGLOBIN 13.3 g/dl (12.0-15.5); LYMPH # 0.8 10^3/uL (1.5-6.5); LYMPH % 9.4 % (24.0-44.0); MEAN CORPUSCULAR HEMOGLOBIN 28.4 pg (27.0-33.0); MEAN CORPUSCULAR HGB CONC 32.9 g/dl (32.0-36.5); MEAN CORPUSCULAR VOLUME 86.1 fl (80.0-96.0); MONO # 0.1 10^3/uL (0.0-0.8); MONO % 1.6 % (0.0-5.0); NEUTROPHILS # 7.3 10^3/uL (1.8-7.7); NEUTROPHILS % 87.9 % (36.0-66.0); PLATELET COUNT, AUTOMATED 186 10^3/uL (150-450); RED BLOOD COUNT 4.69 10^6/uL (4.00-5.40); WHITE BLOOD COUNT 8.3 10^3/uL (4.0-10.0)
[2018-06-09] MEDS ORDERED: ONDANSETRON 4MG/2ML VIAL (J2405) IV ONE (00:15)
[2018-06-09 00:31] VITALS: BP 125/74
[2018-06-09] MEDS ORDERED: ONDA4TAB6 PO (09:04)
--- NOTE | 2018-06-13 20:12 | ECGEPIP ---
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
== END 2018-06-09 01:06 | disposition home or self-care (01) ==
LOC: M ED 22:47
DX: K52.9 Noninfective gastroenteritis and colitis, unspecified (principal); F44.5 Conversion disorder with seizures or convulsions; J45.909 Unspecified asthma, uncomplicated; E03.9 Hypothyroidism, unspecified; Z85.72 Personal history of non-Hodgkin lymphomas; Z88.6 Allergy status to analgesic agent; Z91.040 Latex allergy status; Z91.041 Radiographic dye allergy status; Z79.899 Other long term (current) drug therapy
CPT/HCPCS: 80048; 80076; 83690; 84703; 85025; 93005; 96374; 96375; 99284; J1953; J2405

== ENCOUNTER 2018-06-09 05:41 | Emergency (ER) | payer MEDICAID ==
[2018-06-09] MEDS ORDERED: HALOPERIDOL 5 MG/ML VIAL (J1630) IV STA (06:04)
[2018-06-09] MEDS ORDERED: diphenhydrAMINE INJ 50MG/ML VIAL (J1200) IV STA (06:04)
[2018-06-09] MEDS ORDERED: NS 1,000 ML IV ONE ×2 (06:15)
[2018-06-09 06:16] LABS: BASO % 0.1 % (0.0-1.0); EOS % 0.4 % (0.0-3.0); HEMOGLOBIN 13.2 g/dl (12.0-15.5); LYMPH # 0.3 10^3/uL (1.5-6.5); MEAN CORPUSCULAR HEMOGLOBIN 28.2 pg (27.0-33.0); MEAN CORPUSCULAR VOLUME 85.5 fl (80.0-96.0); MONO # 0.3 10^3/uL (0.0-0.8); MONO % 3.5 % (0.0-5.0); NEUTROPHILS # 7.4 10^3/uL (1.8-7.7); NEUTROPHILS % 92.4 % (36.0-66.0); PLATELET COUNT, AUTOMATED 147 10^3/uL (150-450); RED BLOOD COUNT 4.68 10^6/uL (4.00-5.40)
[2018-06-09 06:35] LABS: APPEARANCE, URINE CLEAR (CLEAR); BACTERIA, URINE AUTO NEGATIVE (NEGATIVE); BILIRUBIN, URINE AUTO NEGATIVE (NEGATIVE); BLOOD, URINE BLOOD NEGATIVE (NEGATIVE); COLOR, URINE YELLOW (YELLOW); GLUCOSE, URINE (UA) AUTO NEGATIVE (NEGATIVE); KETONE, URINE AUTO 1+ mg/dL (NEGATIVE); LEUKOCYTE ESTERASE, URINE AUTO 1+ (NEGATIVE); MUCUS, URINE SMALL (NEGATIVE); NITRITE, URINE AUTO NEGATIVE (NEGATIVE); PROTEIN, URINE AUTO NEGATIVE (NEGATIVE); RBC, URINE AUTO 1 /HPF (0-3); SPECIFIC GRAVITY URINE AUTO 1.023 (1.002-1.035); SQUAMOUS EPITHELIAL CELL UR AU 7 /HPF (0-6); UROBILINOGEN, URINE AUTO 0.2 mg/dL (0.0-2.0); WBC, URINE AUTO 2 /HPF (0-3)
[2018-06-09 06:46] LABS: ALBUMIN 3.7 GM/DL (3.2-5.2); ALT/SGPT 13 U/L (12-78); BILIRUBIN,DIRECT 0.1 MG/DL (0.0-0.2); BILIRUBIN,TOTAL 0.8 MG/DL (0.2-1.0); BLOOD UREA NITROGEN 16 MG/DL (7-18); CALCIUM LEVEL 7.9 MG/DL (8.5-10.1); CARBON DIOXIDE LEVEL 22 MEQ/L (21-32); CHLORIDE LEVEL 107 MEQ/L (98-107); CREATININE FOR GFR 0.79 MG/DL (0.55-1.30); GLOMERULAR FILTRATION RATE > 60.0 (>60); GLUCOSE, FASTING 105 MG/DL (70-100); LIPASE 124 U/L (73-393); POTASSIUM SERUM 4.2 MEQ/L (3.5-5.1); SODIUM LEVEL 140 MEQ/L (136-145)
[2018-06-09 06:50] LABS: LYMPH % 3.3 % (24.0-44.0)
[2018-06-09 07:04] LABS: AMPHETAMINES LEVEL URINE NEGATIVE (NEGATIVE); BARBITURATES URINE NEGATIVE (NEGATIVE); BENZODIAZEPINES URINE NEGATIVE (NEGATIVE); CANNABINOIDS URINE NEGATIVE (NEGATIVE); COCAINE METABOLITE URINE NEGATIVE (NEGATIVE); METHADONE URINE NEGATIVE (NEGATIVE); OPIATES URINE NEGATIVE (NEGATIVE); PHENCYCLIDINE URINE NEGATIVE (NEGATIVE)
[2018-06-09 08:32] LABS: FREE T4 0.98 NG/DL (0.76-1.46)
[2018-06-09 09:00] VITALS: BP 110/64
[2018-06-09] MEDS ORDERED: ONDA4TAB6 PO (09:04)
[2018-06-09] MEDS ORDERED: IBUPROFEN 600 MG TAB PO ONE (09:15)
[2018-06-09] MEDS ORDERED: ACETAMINOPHEN TAB 650MG DOSE (2X325MG) PO ONE (09:15)
== END 2018-06-09 09:21 | disposition home or self-care (01) ==
LOC: M ED 05:41
DX: R11.2 Nausea with vomiting, unspecified (principal); I95.1 Orthostatic hypotension; F44.5 Conversion disorder with seizures or convulsions; J45.909 Unspecified asthma, uncomplicated; E03.9 Hypothyroidism, unspecified; Z85.72 Personal history of non-Hodgkin lymphomas; Z88.6 Allergy status to analgesic agent; Z91.040 Latex allergy status; Z91.041 Radiographic dye allergy status; Z79.899 Other long term (current) drug therapy
CPT/HCPCS: 80048; 80076; 80307; 81001; 83605; 83690; 84439; 84443; 85025; 87088; 87186; 96361; 96374; 96375; 99284; G0480; J1200; J1630

== ENCOUNTER → 2018-06-12 | Outpatient (REF) | payer MEDICAID ==
[2018-06-12 14:15] LABS: FREE T4 1.02 NG/DL (0.76-1.46); THYROID STIMULATING HORMONE 3.29 uIU/ML (0.358-3.740)
== END ==
LOC: M SFHCPLAZ 10:47
PROVIDERS: ATTEND Physician Assistant
DX: E03.9 Hypothyroidism, unspecified (principal)

== ENCOUNTER → 2018-08-01 | Outpatient (REF) | payer MEDICAID ==
[~2018-08-01] MED LIST changes: -/LAMO20TA PO; -BACTDSTA PO; -LIDO1SOL7 SS; +LIDO1SOL8 SS; +SERO50TA27 PO; -SERO50TA3 PO; +SULF1TAB23 PO
[2018-08-01 14:28] LABS: BLOOD UREA NITROGEN 10 MG/DL (7-18); CALCIUM LEVEL 8.8 MG/DL (8.5-10.1); CARBON DIOXIDE LEVEL 27 MEQ/L (21-32); CHLORIDE LEVEL 106 MEQ/L (98-107); CREATININE FOR GFR 0.69 MG/DL (0.55-1.30); GLOMERULAR FILTRATION RATE > 60.0 (>60); GLUCOSE, FASTING 83 MG/DL (70-100); POTASSIUM SERUM 4.2 MEQ/L (3.5-5.1); PROLACTIN 5.3 NG/ML; SODIUM LEVEL 138 MEQ/L (136-145)
[2018-08-01 14:47] LABS: HCG, SERUM QUANTITATIVE 6 MIU/ML
== END ==
LOC: M SFHCPLAZ 11:18
PROVIDERS: ATTEND Family Medicine
DX: N64.52 Nipple discharge (principal); N64.4 Mastodynia

== ENCOUNTER → 2018-08-06 | Outpatient (CLI) | payer MEDICAID ==
--- NOTE | 2018-08-06 14:27 | REP ---
BILATERAL MAMMOGRAM WITH 3D TOMOSYNTHESIS AND BILATERAL BREAST ULTRASOUND: Patient complains of bilateral breast tenderness predominantly in the 6-o'clock regions bilaterally as well as bilateral milky nipple discharge. This is the patient's baseline exam. There is no family history of breast cancer. Tyrer-Cuzick lifetime risk of breast cancer 11.9%. There is moderate scattered fibroglandular tissue in an fairly symmetrical pattern bilaterally. No mass, architectural distortion or clustered microcalcifications are seen bilaterally. Real-time sonographic evaluation of the retroareolar regions and 6-o'clock regions of both breasts is performed. There is scattered fibroglandular tissue with a few minimally dilated ducts in the retroareolar regions. No discrete cystic or solid mass is seen. IMPRESSION: BIRADS 2: BI-RADS/ACR category 2 mammogram. Benign Findings. No mass or clustered microcalcifications bilaterally. No sonographic abnormality seen in the retroareolar regions and 6-o'clock regions bilaterally. This mammogram was interpreted with the aid of an FDA-approved computer-aided detection system. A. Negative x-ray reports should not delay biopsy if a dominant or clinically suspicious mass is present. B. Four to eight percent of cancers are not identified by x-ray. C. Adenosis and dense breasts may obscure an underlying neoplasm. The patient states she/he had a clinical breast exam in July 2018. The patient letter being requested is M2. Electronically Signed by Bartolo Dorado MD 08/06/2018 05:42 P
== END ==
LOC: M RAD 09:51
PROVIDERS: ATTEND Family Medicine
DX: N64.52 Nipple discharge (principal); N64.4 Mastodynia
CPT/HCPCS: 76642; 77066; G0279

== ENCOUNTER → 2018-10-02 | Outpatient (REF) | payer MEDICAID ==
[2018-10-02 14:51] LABS: FREE T4 0.8 NG/DL (0.76-1.46); THYROID STIMULATING HORMONE 4.28 uIU/ML (0.358-3.740)
== END ==
LOC: M SFHCPLAZ 09:09
PROVIDERS: ATTEND Family Medicine
DX: R79.89 Other specified abnormal findings of blood chemistry (principal)

== ENCOUNTER → 2018-12-03 | Outpatient (REF) | payer MEDICAID ==
[2018-12-03 11:58] LABS: FREE T4 0.8 NG/DL (0.76-1.46); THYROID STIMULATING HORMONE 4.3 uIU/ML (0.358-3.740)
== END ==
LOC: M SFHCPLAZ 10:36
PROVIDERS: ATTEND Family Medicine
DX: E03.9 Hypothyroidism, unspecified (principal)

== ENCOUNTER 2018-12-20 14:09 | Emergency (ER) | payer MEDICAID ==
[~2018-12-20] VITALS: Ht 165.1 cm; Wt 69.3 kg
[2018-12-20 14:10] VITALS: BP 131/82
[2018-12-20] MEDS ORDERED: METOCLOPRAMIDE INJ 10MG/2ML VIAL (J2765) IV ONE (15:45)
[2018-12-20] MEDS ORDERED: NS 1,000 ML IV ONE (15:45)
[2018-12-20] MEDS ORDERED: KETOROLAC 30 MG/ML VIAL (J1885) IV ONE (15:45)
[2018-12-20] MEDS ORDERED: diphenhydrAMINE INJ 50MG/ML VIAL (J1200) IV ONE (15:45)
[2018-12-20 16:12] LABS: BASO % 0.3 % (0.0-1.0); EOS # 0.1 10^3/uL (0.0-0.5); EOS % 1.3 % (0.0-3.0); HEMATOCRIT 43.5 % (36.0-47.0); HEMOGLOBIN 13.8 g/dl (12.0-15.5); LYMPH % 29.2 % (24.0-44.0); MEAN CORPUSCULAR HEMOGLOBIN 27.9 pg (27.0-33.0); MEAN CORPUSCULAR HGB CONC 31.7 g/dl (32.0-36.5); MEAN CORPUSCULAR VOLUME 88.1 fl (80.0-96.0); MONO # 0.5 10^3/uL (0.0-0.8); MONO % 7.3 % (0.0-5.0); NEUTROPHILS # 4.2 10^3/uL (1.5-8.5); NEUTROPHILS % 61.8 % (36.0-66.0); PLATELET COUNT, AUTOMATED 206 10^3/uL (150-450); RED BLOOD COUNT 4.94 10^6/uL (4.00-5.40); WHITE BLOOD COUNT 6.8 10^3/uL (4.0-10.0)
--- NOTE | 2018-12-20 16:24 | REP ---
Clinical: Headache and visual disturbances . Comparison: 04/16/2018 . Findings: The ventricles, sulci, and cisterns are normal in position and appearance. Dorado-white differentiation is maintained. No acute intracranial hemorrhage, mass/mass effect, pathology or trauma/injury. No evidence for acute infarction. No extra-axial fluid collection. Calvarium is intact. Paranasal sinuses and mastoid air cells are clear. Impression: Normal noncontrast head CT. No evidence for acute intracranial pathology or trauma/injury. Electronically Signed by Onel Encinas MD 12/20/2018 04:15 P
[2018-12-20 16:57] LABS: BLOOD UREA NITROGEN 15 MG/DL (7-18); CALCIUM LEVEL 8.9 MG/DL (8.5-10.1); CARBON DIOXIDE LEVEL 25 MEQ/L (21-32); CHLORIDE LEVEL 109 MEQ/L (98-107); CREATININE FOR GFR 0.91 MG/DL (0.55-1.30); GLOMERULAR FILTRATION RATE > 60.0 (>60); GLUCOSE, FASTING 87 MG/DL (70-100); POTASSIUM SERUM 4.1 MEQ/L (3.5-5.1); SODIUM LEVEL 140 MEQ/L (136-145)
== END 2018-12-20 17:25 | disposition left against medical advice (07) ==
LOC: M ED 14:09
DX: R51 Headache (principal); Z88.5 Allergy status to narcotic agent; Z91.040 Latex allergy status; Z91.041 Radiographic dye allergy status

== ENCOUNTER 2019-01-19 01:16 | Inpatient (IN) | payer MEDICAID ==
[~2019-01-19] VITALS: Ht 165.1 cm; Wt 70.4 kg
[~2019-01-19 01:16] MED LIST changes: -SYMB16INH
[2019-01-19 01:30] LABS: BASO % 0.2 % (0.0-1.0); EOS % 0.1 % (0.0-3.0); HEMATOCRIT 42.9 % (36.0-47.0); LYMPH # 1.4 10^3/uL (1.5-5.0); MEAN CORPUSCULAR HEMOGLOBIN 28.5 pg (27.0-33.0); MEAN CORPUSCULAR HGB CONC 32.6 g/dl (32.0-36.5); MEAN CORPUSCULAR VOLUME 87.2 fl (80.0-96.0); MONO # 0.4 10^3/uL (0.0-0.8); MONO % 4.6 % (0.0-5.0); NEUTROPHILS # 6.7 10^3/uL (1.5-8.5); NEUTROPHILS % 78.9 % (36.0-66.0); PLATELET COUNT, AUTOMATED 210 10^3/uL (150-450); RED BLOOD COUNT 4.92 10^6/uL (4.00-5.40); WHITE BLOOD COUNT 8.5 10^3/uL (4.0-10.0)
[2019-01-19] MEDS ORDERED: NS 1,000 ML IV ONE (01:30)
[2019-01-19] MEDS ORDERED: levETIRAcetam INJection 500 MG in D5W MINI-BAG PLUS 100 ML IV ONE (01:30)
[2019-01-19 02:11] LABS: OSMOLALITY SERUM 287 MOSM/KG (275-295)
[2019-01-19 02:15] LABS: ACETAMINOPHEN LEVEL < 2.0 UG/ML (10.0-30.0); ALBUMIN 4.4 GM/DL (3.2-5.2); ALT/SGPT 17 U/L (12-78); BILIRUBIN,DIRECT 0.2 MG/DL (0.0-0.2); BILIRUBIN,TOTAL 0.4 MG/DL (0.2-1.0); BLOOD UREA NITROGEN 12 MG/DL (7-18); CALCIUM LEVEL 8.5 MG/DL (8.5-10.1); CARBON DIOXIDE LEVEL 24 MEQ/L (21-32); CHLORIDE LEVEL 106 MEQ/L (98-107); CK-MB VALUE MASS < 1.0 NG/ML (<3.6); CPK CREATINE PHOSPHOKINASE 92 U/L (26-192); CREATININE FOR GFR 0.93 MG/DL (0.55-1.30); ETHYL ALCOHOL (ETHANOL) < 0.003 % (0.000-0.010); GLOMERULAR FILTRATION RATE > 60.0 (>60); GLUCOSE, FASTING 103 MG/DL (70-100); MB/CK RELATIVE INDEX 1.09 (< OR =4); POTASSIUM SERUM 3.5 MEQ/L (3.5-5.1); SALICYLATE LEVEL < 1.7 MG/DL (5.0-30.0); SODIUM LEVEL 140 MEQ/L (136-145); TOTAL PROTEIN 8.1 GM/DL (6.4-8.2); TROPONIN I < 0.02 NG/ML (< 0.10)
[2019-01-19] MEDS ORDERED: LORazepam 2 MG/ML VIAL (J2060) IV STA (03:01)
[2019-01-19 03:47] LABS: AMPHETAMINES LEVEL URINE NEGATIVE (NEGATIVE); BARBITURATES URINE NEGATIVE (NEGATIVE); BENZODIAZEPINES URINE NEGATIVE (NEGATIVE); CANNABINOIDS URINE NEGATIVE (NEGATIVE); COCAINE METABOLITE URINE NEGATIVE (NEGATIVE); METHADONE URINE NEGATIVE (NEGATIVE); OPIATES URINE NEGATIVE (NEGATIVE); PHENCYCLIDINE URINE NEGATIVE (NEGATIVE)
[2019-01-19] MEDS ORDERED: ONDANSETRON 4MG/2ML VIAL (J2405) IV ONE (05:30)
[2019-01-19] MEDS ORDERED: KETOROLAC 30 MG/ML VIAL (J1885) IV ONE (05:30)
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
[2019-01-19] MEDS ORDERED: SYNT137T7 PO (05:53)
[2019-01-19] MEDS ORDERED: PROAAER10 INH (05:53)
[2019-01-19] MEDS ORDERED: LEVE750T5 PO (05:53)
[2019-01-19] MEDS ORDERED: BRONCHW PO (05:53)
[2019-01-19] MEDS ORDERED: CETI10CA2 PO (05:53)
[2019-01-19 06:54] VITALS: BP 116/72
[2019-01-19 08:00] VITALS: BP 112/65
--- NOTE | 2019-01-19 08:42 | REP ---
The CT of the brain without IV contrast: Comparison is 12/20/2018. There is severe motion artifact on the initial images, therefore the scan is repeated. There is no motion artifact on the repeat images. There is subtle indistinctness at the eaton matter/white matter interface as a change from the comparison study of 12/20/2018. This is nonspecific but can be seen in diffuse anoxic brain injury. However, there is no evidence of diffuse cerebral edema at this time. There is no focal mass effect or midline shift. Ventricles are normal size and midline. There is no hemorrhage. The visualized paranasal sinuses and mastoid air cells are clear. Impression: Subtle indistinctness of the eaton-white interface diffusely. This appears to be a change from the comparison study. This is nonspecific but can be seen in diffuse anoxic brain injury. Correlate with clinical findings. Results are telephoned to Aimee the PCU attending nurse,. Electronically Signed by Bartolo Kevin MD 01/19/2019 08:34 A
[2019-01-19 12:00] VITALS: BP 122/75
[2019-01-19] MEDS: lamoTRIgine 100MG TAB PO SCH ×2 (12:09→20:31)
[2019-01-19] MEDS: levETIRAcetam 250MG TABLET (KEPPRA) PO SCH ×2 (12:09→20:31)
[2019-01-19] MEDS: ACETAMINOPHEN TAB 650MG DOSE (2X325MG) PO PRN (12:09)
--- NOTE | 2019-01-19 13:54 | REPVR ---
PROCEDURE INFORMATION: Exam: MR Head Without Contrast Exam date and time: 01/19/2019 11:33 AM Clinical history: 28 years old, female; Other: Pseudoseizures; Additional info: Pseudoseizures, no h/o anoxia, aaox3 TECHNIQUE: Imaging protocol: MR of the head without contrast. COMPARISON: MRI-Brain without Contrast 06/11/2017 11:[address] Head without contrast 01/19/2019 2:45:28 AM FINDINGS: Brain: Examination reveals stable evidence of few tiny focal areas of increased T2 signal in bilateral frontal subcortical white matter, unchanged since the previous study. These are nonspecific and could be related to chronic headache. Remainder of the brain parenchyma demonstrates normal morphology and signal intensity.No acute infarction, masses, midline shift or acute hemorrhage is seen. No acute intracranial abnormality is identified.There is no abnormal diffusion weighted signal intensity to suggest an acute ischemic event.The cortical peralta / white matter interfaces are preserved throughout the brain.Intracranial flow voids are well maintained.Examination of the posterior fossa demonstrates no significant abnormality.On gradient echo imaging, no susceptibility changes are seen to represent parenchymal calcification or degraded blood products. Ventricles: The ventricular system is not dilated and is appropriate for the patient's age. Bones/joints: Unremarkable. Soft tissues: Unremarkable. Sinuses: Mild mucosal thickening is seen in the paranasal sinuses. Mastoid air cells: Normal as visualized. No mastoid effusion. Orbits: Unremarkable. IMPRESSION: No acute infarction, masses or hemorrhage is seen. No acute intracranial abnormality is identified.There has been no adverse interval change since the previous study. Electronically signed by: Tonio Mason On 01/19/2019 13:54:03 PM
[2019-01-19 16:00] VITALS: BP 103/65
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
--- NOTE | 2019-01-19 16:37 | REP ---
CT of the abdomen and pelvis without IV or bowel contrast: Comparison is 05/24/2018. The visualized lung mott are unremarkable. The unenhanced hepatic parenchyma, gallbladder, pancreas, spleen, adrenals and kidneys are unremarkable. There are no renal calculi. There is no hydronephrosis. There is no perinephric stranding. The bowel and mesentery are unremarkable. Pelvis: The appendix is unremarkable. The uterus and adnexa are unremarkable. The right ovarian follicle identified on the previous study has involuted. There is no ascites. The bladder is unremarkable. There is no adenopathy. The pelvic bowel loops are unremarkable. Impression: Essentially negative CT study of the abdomen and pelvis. Electronically Signed by Bartolo Kevin MD 01/19/2019 04:29 P
[2019-01-19 17:06] LABS: HEMATOCRIT 38.5 % (36.0-47.0); HEMOGLOBIN 12.6 g/dl (12.0-15.5); MEAN CORPUSCULAR HEMOGLOBIN 28.9 pg (27.0-33.0); MEAN CORPUSCULAR HGB CONC 32.7 g/dl (32.0-36.5); MEAN CORPUSCULAR VOLUME 88.3 fl (80.0-96.0); PLATELET COUNT, AUTOMATED 167 10^3/uL (150-450); RED BLOOD COUNT 4.36 10^6/uL (4.00-5.40); WHITE BLOOD COUNT 5.6 10^3/uL (4.0-10.0)
[2019-01-19 17:10] LABS: BLOOD UREA NITROGEN 12 MG/DL (7-18); CALCIUM LEVEL 8.3 MG/DL (8.5-10.1); CARBON DIOXIDE LEVEL 23 MEQ/L (21-32); CHLORIDE LEVEL 112 MEQ/L (98-107); GLOMERULAR FILTRATION RATE > 60.0 (>60); GLUCOSE, FASTING 84 MG/DL (70-100); LIPASE 305 U/L (73-393); POTASSIUM SERUM 3.7 MEQ/L (3.5-5.1); SODIUM LEVEL 144 MEQ/L (136-145)
[2019-01-19] MEDS: traMADol 50 MG TAB PO PRN (17:51)
[2019-01-19 20:00] VITALS: BP 123/80
[2019-01-19 23:59] VITALS: BP 126/73
[2019-01-20] MEDS: traMADol 50 MG TAB PO PRN ×3 (01:52→18:01)
[2019-01-20 04:00] VITALS: BP 129/73
[2019-01-20 06:54] LABS: HEMATOCRIT 37.8 % (36.0-47.0); HEMOGLOBIN 12.3 g/dl (12.0-15.5); MEAN CORPUSCULAR HEMOGLOBIN 28.7 pg (27.0-33.0); MEAN CORPUSCULAR HGB CONC 32.5 g/dl (32.0-36.5); MEAN CORPUSCULAR VOLUME 88.1 fl (80.0-96.0); PLATELET COUNT, AUTOMATED 167 10^3/uL (150-450); RED BLOOD COUNT 4.29 10^6/uL (4.00-5.40); WHITE BLOOD COUNT 3.9 10^3/uL (4.0-10.0)
[2019-01-20 07:15] LABS: BLOOD UREA NITROGEN 12 MG/DL (7-18); CARBON DIOXIDE LEVEL 22 MEQ/L (21-32); CHLORIDE LEVEL 110 MEQ/L (98-107); CREATININE FOR GFR 0.84 MG/DL (0.55-1.30); GLOMERULAR FILTRATION RATE > 60.0 (>60); GLUCOSE, FASTING 71 MG/DL (70-100); POTASSIUM SERUM 3.8 MEQ/L (3.5-5.1); SODIUM LEVEL 139 MEQ/L (136-145)
[2019-01-20 08:00] VITALS: BP 120/80
--- NOTE | 2019-01-20 08:08 | ECGEPIP ---
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
--- NOTE | 2019-01-20 09:47 | IPNPDOC ---
Text Note Date of Service The patient was seen on 01/20/19. NOTE Subjective: Patient seen and examined at bedside. Complains of RLQ pain, worsens with laying on right side or lying flat, somewhat alleviated with laying on her left side. Also complains of nausea, worsened with oral intake, denied vomiting. No other medical complaints or concerns. Objective: General: NAD, lying comfortably in bed HEENT: NC/AT, EOMI Lungs: CTA B/L Heart: +S1S2, RRR Abd: soft, NT, +BS Ext: no edema ASSESSMENT: 28-year-old female with a past history of seizure disorder, asthma, Raynaud's, Hodgkin's lymphoma and hypothyroidism admitted for evaluation of seizures, seen by neurology, no further workup, hospital stay complicated with abdominal pain, no clear etiology. PLAN: #abd pain - CLD/IVF - tramadol for pain control - considering GI vs surgical consultation #seizures versus pseudoseizures. - cleared by neuro - assistance appreciated #asthma #Raynaud's phenomena - continue home Rx #Hypothyroidism #DVT prophylaxis Dispo: transfer to med/surg, GI/surg consultation if pain persists ADDENDUM: Patient states she has not urinated at least all day. Renal function noted to be normal, CT A/P did not reveal any obstruction. Will place valentin catheter for monitoring of I/O's. VS,Fishbone, I+O VS, Fishbone, I+O Laboratory Tests 01/19/19 16:34 Red Blood Count 4.36, Mean Corpuscular Volume 88.3, Mean Corpuscular Hemoglobin 28.9, Mean Corpuscular Hemoglobin Concent 32.7, Red Cell Distribution Width 12.1, Calcium Level 8.3 L 01/20/19 06:07 Red Blood Count 4.29, Mean Corpuscular Volume 88.1, Mean Corpuscular Hemoglobin 28.7, Mean Corpuscular Hemoglobin Concent 32.5, Red Cell Distribution Width 12.3, Calcium Level 8.0 L Vital Signs Date Time Temp Pulse Resp B/P (MAP) Pulse Ox O2 Delivery O2 Flow Rate FiO2 01/20/19 08:00 98.9 100 18 120/80 (93) 96 01/19/19 06:30 Room Air I&O- Last 24 Hours up to 6 AM 01/20/19 06:00 Intake Total 1420 ml Output Total 100 ml Balance 1320 ml SANDEEP GUY MD Jan 20, 2019 09:47
[2019-01-20] MEDS: levETIRAcetam 250MG TABLET (KEPPRA) PO SCH ×2 (09:53→20:04)
[2019-01-20] MEDS: lamoTRIgine 100MG TAB PO SCH ×2 (09:53→20:04)
[2019-01-20 12:00] VITALS: BP 124/80
[2019-01-20] MEDS: ACETAMINOPHEN TAB 650MG DOSE (2X325MG) PO PRN ×2 (15:05→23:30)
[2019-01-20] MEDS ORDERED: SLF 3 ML SYR IV PRN (16:00)
[2019-01-20 20:00] VITALS: BP 139/88
[2019-01-20 22:15] VITALS: BP 137/92
[2019-01-20] MEDS: SLF 3 ML SYR IV SCH (23:34)
[2019-01-21] MEDS: IBUPROFEN 600 MG TAB PO PRN ×3 (01:05→18:37)
[2019-01-21] MEDS ORDERED: ONDANSETRON 4 MG TAB (S0181) PO PRN (01:30)
[2019-01-21] MEDS: SLF 3 ML SYR IV SCH ×3 (05:45→22:16)
[2019-01-21] MEDS: traMADol 50 MG TAB PO PRN ×3 (05:45→22:16)
[2019-01-21 06:00] VITALS: BP 131/88
[2019-01-21 06:14] LABS: HEMATOCRIT 40.8 % (36.0-47.0); HEMOGLOBIN 13.3 g/dl (12.0-15.5); MEAN CORPUSCULAR HEMOGLOBIN 28.6 pg (27.0-33.0); MEAN CORPUSCULAR HGB CONC 32.6 g/dl (32.0-36.5); MEAN CORPUSCULAR VOLUME 87.7 fl (80.0-96.0); PLATELET COUNT, AUTOMATED 173 10^3/uL (150-450); RED BLOOD COUNT 4.65 10^6/uL (4.00-5.40); WHITE BLOOD COUNT 4.9 10^3/uL (4.0-10.0)
[2019-01-21 06:40] LABS: BLOOD UREA NITROGEN 18 MG/DL (7-18); CALCIUM LEVEL 8.3 MG/DL (8.5-10.1); CARBON DIOXIDE LEVEL 19 MEQ/L (21-32); CHLORIDE LEVEL 109 MEQ/L (98-107); CREATININE FOR GFR 0.73 MG/DL (0.55-1.30); GLOMERULAR FILTRATION RATE > 60.0 (>60); GLUCOSE, FASTING 56 MG/DL (70-100); SODIUM LEVEL 138 MEQ/L (136-145)
[2019-01-21] MEDS: lamoTRIgine 100MG TAB PO SCH ×2 (08:53→20:28)
[2019-01-21] MEDS: levETIRAcetam 250MG TABLET (KEPPRA) PO SCH ×2 (08:53→20:28)
--- NOTE | 2019-01-21 10:37 | IPNPDOC ---
Text Note Date of Service The patient was seen on 01/21/19. NOTE Subjective: Patient seen and examined at bedside. Still complains of RLQ pain, nausea, poor PO intake secondary to nausea. No vomiting. Objective: General: NAD, lying comfortably in bed HEENT: NC/AT, EOMI Lungs: CTA B/L Heart: +S1S2, RRR Abd: soft, RLQ tenderness, +BS Ext: no edema ASSESSMENT: 28-year-old female with a past history of seizure disorder, asthma, Raynaud's, Hodgkin's lymphoma and hypothyroidism admitted for evaluation of seizures, seen by neurology, no further workup, hospital stay complicated with abdominal pain, no clear etiology. PLAN: #abd pain - surgical c/s pending - CLD/IVF - tramadol for pain control #oliguria? - valentin catheter in place - I/O's #seizures versus pseudoseizures. - cleared by neuro - assistance appreciated - extensive psych history #asthma #Raynaud's phenomena - continue home Rx #Hypothyroidism #DVT prophylaxis Dispo: pending surgical c/s, clinical improvement VS,K[place], I+O VS, [place], I+O Laboratory Tests 01/21/19 05:27 Red Blood Count 4.65, Mean Corpuscular Volume 87.7, Mean Corpuscular Hemoglobin 28.6, Mean Corpuscular Hemoglobin Concent 32.6, Red Cell Distribution Width 12.1, Calcium Level 8.3 L Vital Signs Date Time Temp Pulse Resp B/P (MAP) Pulse Ox O2 Delivery O2 Flow Rate FiO2 01/21/19 06:00 98.1 107 17 131/88 (102) 96 01/19/19 06:30 Room Air I&O- Last 24 Hours up to 6 AM 01/21/19 05:59 Intake Total 770 ml Output Total 550 ml Balance 220 ml SANDEEP GUY MD Jan 21, 2019 10:37
--- NOTE | 2019-01-21 13:12 | CR.PDOC ---
General Surgery Consultation Date of Consultation 01/21/19 History and Physical CONSULT REPORT FOR: Odin Henson MD REASON FOR CONSULTATION: right lower quadrant abdominal pain HISTORY OF PRESENT ILLNESS: PAST MEDICAL HISTORY: 1. . PAST SURGICAL HISTORY: INCLUDES: 1. . PREVIOUS ANESTHESIA REACTIONS: ALLERGIES: Please see below. FAMILY HISTORY: . HOME MEDICATIONS: Please see below. REVIEW OF SYSTEMS: GENERAL: [Denies chills, reports weight gain, reports feeling febrile yesterday]. HEENT: [Denies blurred vision and double vision. Denies ear symptoms. Denies hoarseness]. NECK: Denies any neck pain]. CARDIOVASCULAR: [Denies chest pain and palpitations]. MUSCULOSKELETAL: [Denies arthralgias, back pain and thrombophlebitis]. SKIN: [Denies rash]. NEUROLOGIC: [Denies headache, stroke and transient ischemic attack]. PSYCHIATRIC: [Denies anxiety and depression]. ENDOCRINE: [Denies thyroid disease]. HEMATOLOGY/ONCOLOGY: [Denies bleeding or clotting disorder]. HEART: [Denies any chest pains, palpitations, paroxysmal dyspnea, orthopnea]. PULMONARY: [Denies chronic cough, dyspnea and wheezing]. GASTROINTESTINAL: [Denies rectal bleeding, family history of colon cancer, constipation, diarrhea, dysphagia, heartburn and jaundice]. GENITOURINARY: [Denies dysuria, frequency, hematuria and nocturia]. ENDOCRINE: [Denies polydipsia, polyphagia, polyuria, heat or cold intolerance]. INFECTIOUS: [Denies any recent upper respiratory tract infection, UTI, need for use of antibiotics]. NUTRITION: [Reports good appetite]. PHYSICAL EXAMINATION: VITALS SIGNS: Please see below. GENERAL APPEARANCE:[Patient seen, laying in bed, awake, alert, and oriented. Comfortable, in no acute distress]. SKIN: [Warm and moist]. HEENT: [Normocephalic, atraumatic. [place] palpebral conjunctiva, anicteric sclerae. Lips and mucosa appear moist]. NECK: [Supple, no thyromegaly. No obvious jugular venous distention]. LUNGS: [Clear to auscultation bilaterally. No wheezing appreciated]. HEART: [No chest wall abnormalities. Regular rate and rhythm with no murmurs appreciated]. ABDOMEN: Abdomen is , soft, . [No hepatosplenomegaly. No umbilical or groin herniations, nondistended. No noticeable rebound or guarding. No grimacing with palpation. No rebound tenderness. No masses appreciated]. EXTREMITIES: [Extremities have no deformities. No edema identified] ANCILLARIES: . LABORATORY DATA: Please see below. IMAGING STUDIES: . IMPRESSION AND PLAN: right lower quadrant abdominal pain She has point tenderness over right lower quadrant area slight at the right paramedian area close to the suprapubic line maybe musculoskeletal in origin. I reviewed with her the previous CT done last monday which was showing normal findings. No evidence for appendicitis, colitis, enteritis, ureterolithiasis or ovarian torsion. No heriation. Suggest repeating the CT with PO contrast to look for interval development. She claims allergy to iv contrast so we unfortunately could not do any iv contrast in the CT. Vital Signs Vital Signs Date Time Temp Pulse Resp B/P (MAP) Pulse Ox O2 Delivery O2 Flow Rate FiO2 01/21/19 06:00 98.1 107 17 131/88 (102) 96 01/19/19 06:30 Room Air I&Os I&O- Last 24 Hours up to 6 AM 01/21/19 05:59 Intake Total 770 ml Output Total 550 ml Balance 220 ml Laboratory Data Labs 24H Laboratory Tests 2 01/21/19 05:27: Nucleated Red Blood Cells % (auto) 0.0, Anion Gap 10, Glomerular Filtration Rate > 60.0, Blood Urea Nitrogen 18, Creatinine 0.73, Sodium Level 138, Potassium Level 4.0, Chloride Level 109H, Carbon Dioxide Level 19L, Calcium Level 8.3L 01/21/19 08:52: Bedside Glucose (Misc Panel) 68L CBC/BMP Laboratory Tests 01/21/19 05:27 Red Blood Count 4.65, Mean Corpuscular Volume 87.7, Mean Corpuscular Hemoglobin 28.6, Mean Corpuscular Hemoglobin Concent 32.6, Red Cell Distribution Width 12.1, Calcium Level 8.3 L Home Medications Scheduled Lamotrigine (Lamictal) 200 Mg Tab, 200 MG PO BID, (Reported) Levetiracetam (Levetiracetam) 750 Mg Tablet, 750 MG PO BID, (Reported) Levothyroxine Sodium (Synthroid) 137 Mcg Tablet, 137 MCG PO DAILY, (Reported) Multivitamin (Chewable-Jacqui) 1 Each Tab.chew, 1 CHW PO DAILY, (Reported) Scheduled PRN Albuterol Sulfate (Proair Hfa) 8.5 Gm Hfa.aer.ad, 2 PUFF INH Q6H PRN for SOB/WHE EZING, (Reported) Budesonide/Formoterol (Symbicort 160-4.5 Mcg Inhaler) 60 Puff/Inhaler Aers, 2 PUFF INH BID PRN for ASTHMA SYMPTOMS, (Reported) Cetirizine HCl (ZyrTEC) 10 Mg Capsule, 10 MG PO DAILY PRN for ALLERGY SYMPTOMS, (Reported) Allergies Coded Allergies: latex (Verified Allergy, Severe, " everything reacts" , 12/20/18) fentanyl (Verified Allergy, Intermediate, hives, 12/20/18) Iodinated Contrast Media (Verified Allergy, Unknown, STOPS BREATHING, 12/20/18) STEPHIE TOLEDO MD Jan 21, 2019 13:12
[2019-01-21] MEDS ORDERED: READI-CAT 2 PO SCH (13:20)
[2019-01-21 14:00] VITALS: BP 138/85
[2019-01-21] MEDS ORDERED: DOCUSATE SODIUM 100 MG CAP PO PRN (16:00)
[2019-01-21] MEDS ORDERED: SENNA 8.6 MG TAB (SENOKOT) PO PRN (16:00)
--- NOTE | 2019-01-21 18:25 | REP ---
CT ABDOMEN AND PELVIS WITHOUT ORAL OR IV CONTRAST: CT abdomen and pelvis was performed without oral or IV contrast and compared to prior study of 01/19/2019. Sagittal and coronal reconstruction images are performed. Visualized lung bases demonstrate no infiltrate. The liver, gallbladder, spleen, adrenals, pancreas and kidneys are grossly unremarkable. I see no renal, ureteral or bladder calculus and no hydroureteronephrosis. There is no abdominal aortic aneurysm. I see no adenopathy. There is no free air or free fluid. No bowel wall thickening is seen. There is no evidence of appendicitis. A normal appendix is seen. In the pelvis a cystic structure is noted of the right ovary which measures about 2.2 cm in diameter. This probably represents a dominant follicle. No other pelvic mass is seen. A Baumann catheter is seen in the urinary bladder which contains air and a small amount of fluid. I see no other significant finding. IMPRESSION: No evidence of appendicitis. No free air or free fluid. Cystic structure right ovary 2.2 cm in maximum diameter probably represents a dominant follicle. Baumann catheter in the urinary bladder. Electronically Signed by Bartolo Dorado MD 01/21/2019 11:53 P
[2019-01-21 22:00] VITALS: BP 127/87
[2019-01-22] MEDS ORDERED: NS 1,000 ML IV SCH (01:00)
[2019-01-22] MEDS: SLF 3 ML SYR IV SCH ×2 (05:00→14:00)
[2019-01-22 06:00] VITALS: BP 116/77
[2019-01-22 08:00] VITALS: BP 132/88
[2019-01-22] MEDS ORDERED: CAPSAICIN 0.025% CR 60 GM TOP SCH (09:00)
[2019-01-22] MEDS: levETIRAcetam 250MG TABLET (KEPPRA) PO SCH (09:44)
[2019-01-22] MEDS: lamoTRIgine 100MG TAB PO SCH (09:45)
[2019-01-22] MEDS ORDERED: SENOKOT S TAB PO SCH (11:00)
[2019-01-22] MEDS ORDERED: MAGNESIUM CITRATE 300 ML BTL PO ONE (11:00)
[2019-01-22] MEDS ORDERED: FLEET ENEMA PR SCH (12:00)
[2019-01-22] MEDS ORDERED: SENN8.6T58 PO (12:45)
[2019-01-22] MEDS ORDERED: DULC10SU2 PR (12:45)
--- NOTE | 2019-01-23 07:01 | DS.PDOC ---
Discharge Summary General Date of Admission Jan 19, 2019 at 05:27 Date of Discharge 01/22/19 Discharge Summary PROCEDURES PERFORMED DURING STAY: [None]. DISCHARGE DIAGNOSES: Nonspecific abdominal pain probably musculoskeletal or constipation relatd Remote history of seizures. Psychogenic nonepileptic spells/pseudoseizures. Diverticulosis. History of Hodgkin's lymphoma, in remission, status post chemotherapy and radi ation therapy. Hypothyroidism. History of pericardial window. Asthma Raynauds phenomenon. Psych issues COMPLICATIONS/CHIEF COMPLAINT: Pseudoseizures. HISTORY OF PRESENT ILLNESS: See history and physical HOSPITAL COURSE: 28-year-old female with a past history of seizure disorder, asthma, Raynaud's, Hodgkin's lymphoma and hypothyroidism admitted for evaluation of seizures, seen by neurology, no further workup, hospital stay complicated with abdominal pain, no clear etiology. Abdominal pain CT abdomen and pelvis noncontrast negative. pateint did not even drink the oral contrast as ordered. Seen by surgery felt to be musculoskeletal/ constipation had good results after enema and magcitrate and then abdominal pain resolved. tolerated normal diet Seizures versus pseudoseizures. As per neuro Psychogenic nonepileptic spells/pseudoseizures, which were diagnosed after video EEG monitoring at [facility] and [facility]. cleared by neuro No anoxic changes noted in the CT scan on MRI brain review by neurology as was read by radiology in the CT head. assistance appreciated extensive psych history continue lamictal , keppra Asthma continue home meds symbicort and albuterol Raynaud's phenomena continue home Rx Hypothyroidism continue synthroid DISCHARGE MEDICATIONS: Please see below. ALLERGIES: Please see below. PHYSICAL EXAMINATION ON DISCHARGE: VITAL SIGNS: Please see below. General: NAD, lying comfortably in bed HEENT: NC/AT, EOMI Lungs: CTA B/L Heart: +S1S2, RRR, no rub murmur or gallop Abd: soft, RLQ tenderness, +BS Ext: no edema LABORATORY DATA: Please see below. ACTIVITY: [As tolerated]. DIET: regular DISPOSITION: 01 Home, Self-Care. DISCHARGE INSTRUCTIONS: PMD in 2 weeks DISCHARGE CONDITION: [Stable]. TIME SPENT ON DISCHARGE: 35 minutes. Vital Signs/I&Os Vital Signs Date Time Temp Pulse Resp B/P (MAP) Pulse Ox O2 Delivery O2 Flow Rate FiO2 01/22/19 08:00 98.0 96 16 132/88 (103) 99 01/19/19 06:30 Room Air I&O- Last 24 Hours up to 6 AM 01/23/19 05:59 Intake Total 1461 ml Output Total 1300 ml Balance 161 ml Discharge Medications Scheduled Lamotrigine (Lamictal) 200 Mg Tab, 200 MG PO BID, (Reported) Levetiracetam (Levetiracetam) 750 Mg Tablet, 750 MG PO BID, (Reported) Levothyroxine Sodium (Synthroid) 137 Mcg Tablet, 137 MCG PO DAILY, (Reported) Multivitamin (Chewable-Jacqui) 1 Each Tab.chew, 1 CHW PO DAILY, (Reported) Scheduled PRN Albuterol Sulfate (Proair Hfa) 8.5 Gm Hfa.aer.ad, 2 PUFF INH Q6H PRN for SOB/WHEEZING, (Reported) Bisacodyl (Dulcolax) 10 Mg Supp.rect, 1 SUP NC DAILYPRN PRN for CONSTIPATION Budesonide/Formoterol (Symbicort 160-4.5 Mcg Inhaler) 60 Puff/Inhaler Aers, 2 PUFF INH BID PRN for ASTHMA SYMPTOMS, (Reported) Cetirizine HCl (ZyrTEC) 10 Mg Capsule, 10 MG PO DAILY PRN for ALLERGY SYMPTOMS, (Reported) Sennosides (Senna) 8.6 Mg Tablet, 2 TAB PO QHSP PRN for CONSTIPATION Allergies Coded Allergies: latex (Verified Allergy, Severe, " everything reacts" , 12/20/18) fentanyl (Verified Allergy, Intermediate, hives, 12/20/18) Iodinated Contrast Media (Verified Allergy, Unknown, STOPS BREATHING, 12/20/18) AVEL ARELLANO MD Jan 23, 2019 07:01
== END 2019-01-22 14:47 | disposition home or self-care (01) | DRG 53 ==
LOC: M ED 01:16 → M ED INP 05:27 → M PCU 06:50 → M MSPAV 01-20 22:02
PROVIDERS: ADMIT Internal Medicine; ATTEND Internal Medicine Nephrology
DX: R56.9 Unspecified convulsions (principal); E03.9 Hypothyroidism, unspecified; J45.909 Unspecified asthma, uncomplicated; I73.00 Raynaud's syndrome without gangrene; K57.90 Diverticulosis of intestine, part unspecified, without perforation or abscess without bleeding; K59.00 Constipation, unspecified; R10.31 Right lower quadrant pain; Z91.041 Radiographic dye allergy status; Z85.79 Personal history of other malignant neoplasms of lymphoid, hematopoietic and related tissues; Z92.21 Personal history of antineoplastic chemotherapy; Z92.3 Personal history of irradiation; Z88.5 Allergy status to narcotic agent; Z79.899 Other long term (current) drug therapy; Z91.040 Latex allergy status

== ENCOUNTER 2019-01-24 07:16 | Emergency (ER) | payer MEDICAID ==
[~2019-01-24] VITALS: Ht 162.6 cm; Wt 63.6 kg
[~2019-01-24 07:16] MED LIST changes: +BRONCHW PO; +CETI10CA2 PO; +DULC10SU2 PR; +LEVE750T5 PO; +PROAAER10 INH; +SENN8.6T58 PO; +SYNT137T7 PO
[2019-01-24 08:22] LABS: HEMATOCRIT 39.1 % (36.0-47.0); HEMOGLOBIN 13.1 g/dl (12.0-15.5); MEAN CORPUSCULAR HEMOGLOBIN 29.1 pg (27.0-33.0); MEAN CORPUSCULAR HGB CONC 33.5 g/dl (32.0-36.5); MEAN CORPUSCULAR VOLUME 86.9 fl (80.0-96.0); PLATELET COUNT, AUTOMATED 161 10^3/uL (150-450); WHITE BLOOD COUNT 3.8 10^3/uL (4.0-10.0)
--- NOTE | 2019-01-24 08:38 | REP ---
Head CT without contrast: History: Injury in a fall. Comparison study: Comparison CT brain study January 19, 2019. CT findings: Bone window settings demonstrate an intact bony calvarium. There is no evidence of skull fracture or incidental bony calvarial lesion. The visualized paranasal sinuses appear clear. No intraorbital abnormality is seen. On soft tissue window setting images; the lateral, third, and fourth ventricles are normal in size and position. [place]-white differentiation pattern is normal above and below the tentorium. There are is no evidence of intracranial hemorrhage. No mass, edema, infarction, or midline shift is seen. No extra-axial fluid collection is appreciated. Impression: Negative noncontrast head CT. Electronically Signed by Luke Ramesh MD 01/24/2019 08:29 A
--- NOTE | 2019-01-24 08:42 | REP ---
CT study of the cervical spine without contrast: History: Injury in a fall. Comparison cervical spine radiographs are from February 08, 2016. Comparison CT study of October 25, 2014. Technique: Helical scanning is acquired and overlapping 2 mm high resolution axial images were generated and reviewed at bone and soft tissue window settings. Coronal and sagittal multiplanar re-formations images are generated. CT findings: There is no evidence of cervical spine element fracture. No skull base fracture is seen. Cervical vertebral body heights are preserved. There is straightening of the normal cervical lordosis. Alignment is normal. Facet joints are normally aligned bilaterally at each cervical level on multiplanar re-formations images. There is no evidence of intraspinal or paraspinal hematoma. No extra vertebral abnormality is seen. There is mild biapical pleuroparenchymal scarring in the lungs. Impression: Negative CT study of the cervical spine without contrast. No fracture seen. Electronically Signed by Luke Ramesh MD 01/24/2019 08:33 A
[2019-01-24 08:46] LABS: ALBUMIN 3.9 GM/DL (3.2-5.2); ALT/SGPT 20 U/L (12-78); BILIRUBIN,TOTAL 0.5 MG/DL (0.2-1.0); BLOOD UREA NITROGEN 11 MG/DL (7-18); CALCIUM LEVEL 8.4 MG/DL (8.5-10.1); CARBON DIOXIDE LEVEL 24 MEQ/L (21-32); CHLORIDE LEVEL 109 MEQ/L (98-107); CREATININE FOR GFR 0.94 MG/DL (0.55-1.30); GLOMERULAR FILTRATION RATE > 60.0 (>60); GLUCOSE, FASTING 91 MG/DL (70-100); HCG, SERUM QUANTITATIVE < 1.0 MIU/ML; LIPASE 123 U/L (73-393); POTASSIUM SERUM 3.7 MEQ/L (3.5-5.1); SODIUM LEVEL 142 MEQ/L (136-145); TOTAL PROTEIN 7.2 GM/DL (6.4-8.2)
--- NOTE | 2019-01-24 08:58 | REP ---
CT of the abdomen pelvis without IV or bowel contrast for generalized abdominal pain. Comparison is 2018. The lung bases are unremarkable. The unenhanced hepatic parenchyma, gallbladder, pancreas, spleen, adrenals and kidneys are unremarkable and unchanged. The abdominal aorta is unremarkable. There is no bowel distension. There is no ascites. The mesentery is unremarkable. Pelvis: The appendix is unremarkable. There is a 1.2 cm right adnexal follicle. This measured 2.2 cm on the comparison study. There is no pelvic ascites or adenopathy. The bladder is unremarkable. The pelvic bowel loops are unremarkable. This study is performed with the patient's right arm at her side resulting in beam hardening artifact throughout the scan. Impression: There is a 1.3 cm right adnexal follicle. This measured 2.2 cm on the comparison study. Otherwise, negative CT of the abdomen and pelvis. Electronically Signed by Bartolo Kevin MD 01/24/2019 08:50 A
[2019-01-24] MEDS ORDERED: NS 1,000 ML IV ONE (09:30)
[2019-01-24 11:35] VITALS: BP 112/72
[2019-01-25] MEDS ORDERED: BISA10SU PR (10:55)
[2019-01-25] MEDS ORDERED: GNP8.6TA PO (10:55)
== END 2019-01-24 11:42 | disposition home or self-care (01) ==
LOC: M ED 07:16 → EDBD 07:16 → M ED 11:42
DX: F44.5 Conversion disorder with seizures or convulsions (principal); C81.90 Hodgkin lymphoma, unspecified, unspecified site; R10.9 Unspecified abdominal pain; E03.9 Hypothyroidism, unspecified; J45.909 Unspecified asthma, uncomplicated; Z91.041 Radiographic dye allergy status; Z88.5 Allergy status to narcotic agent; Z91.040 Latex allergy status; Z79.899 Other long term (current) drug therapy

== ENCOUNTER 2019-01-25 07:01 | Observation (INO) | payer MEDICAID ==
[~2019-01-25] VITALS: Ht 165.1 cm; Wt 69.6 kg
[2019-01-25] MEDS ORDERED: PROMETHAZINE INJ 25 MG/ML VIAL (J2550) IV ONE (07:30)
[2019-01-25] MEDS ORDERED: NS 1,000 ML IV ONE (07:30)
[2019-01-25 07:57] LABS: HEMATOCRIT 40.9 % (36.0-47.0); HEMOGLOBIN 13.6 g/dl (12.0-15.5); MEAN CORPUSCULAR HEMOGLOBIN 28.8 pg (27.0-33.0); MEAN CORPUSCULAR HGB CONC 33.3 g/dl (32.0-36.5); MEAN CORPUSCULAR VOLUME 86.5 fl (80.0-96.0); PLATELET COUNT, AUTOMATED 169 10^3/uL (150-450); RED BLOOD COUNT 4.73 10^6/uL (4.00-5.40)
--- NOTE | 2019-01-25 08:34 | REP ---
Head CT without contrast: History: Injury in a fall. Comparison study: January 24, 2019, as well as January 19, 2019. CT findings: Bone window settings demonstrate an intact bony calvarium. There is no evidence of skull fracture or incidental bony calvarial lesion. The visualized paranasal sinuses appear clear. No intraorbital abnormality is seen. On soft tissue window setting images; the lateral, third, and fourth ventricles are normal in size and position. [place]-white differentiation pattern is normal above and below the tentorium. There are is no evidence of intracranial hemorrhage. No mass, edema, infarction, or midline shift is seen. No extra-axial fluid collection is appreciated. Impression: Negative noncontrast head CT. Electronically Signed by Luke Ramesh MD 01/25/2019 08:26 A
--- NOTE | 2019-01-25 08:35 | REP ---
CT study of the cervical spine without contrast: History: Injury in a fall. Comparison CT cervical spine January 24, 2019. Technique: Helical scanning is acquired and overlapping 2 mm high resolution axial images were generated and reviewed at bone and soft tissue window settings. Coronal and sagittal multiplanar re-formations images are generated. CT findings: There is no evidence of cervical spine element fracture. No skull base fracture is seen. Cervical vertebral body heights are preserved. Alignment is normal. Facet joints are normally aligned bilaterally at each cervical level on multiplanar re-formations images. There is no evidence of intraspinal or paraspinal hematoma. No extra vertebral abnormality is seen. Impression: Negative CT study of the cervical spine without contrast. No fracture seen. Electronically Signed by Luke Ramesh MD 01/25/2019 08:27 A
--- NOTE | 2019-01-25 08:36 | REP ---
CT of the abdomen pelvis without IV and oral contrast for fall: Comparison is 01/24/2019. There are no fractures of the visualized ribs. The visualized lower lung mott are unremarkable. There are no lumbar spine fractures. There is no sacral fracture. There is no fracture of the iliac wings. There is no hip fracture. No pubic symphysis fracture. No ratio fracture. There is no pneumoperitoneum or hemoperitoneum. The unenhanced hepatic parenchyma, gallbladder, pancreas, spleen, adrenals and kidneys are unchanged and unremarkable. There is no retroperitoneal hematoma. The unenhanced abdominal aorta is unremarkable. There is no periaortic hematoma. The bowel and mesentery are unremarkable. Pelvis: There is no free fluid. There is a right adnexal follicle. The measured 1.82 cm. This is unchanged. The pelvic bowel loops are unremarkable. Impression: There is no pneumoperitoneum or hemoperitoneum. No retroperitoneal hematoma. No fractures are identified. The study is insensitive for solid organ injury in the absence of IV contrast. There is a right adnexal 1.2 cm follicle, unchanged. Otherwise, negative CT of the abdomen and pelvis without IV and oral contrast. Electronically Signed by Bartolo Kevin MD 01/25/2019 08:28 A
[2019-01-25 09:15] LABS: ALBUMIN 3.7 GM/DL (3.2-5.2); ALT/SGPT 17 U/L (12-78); BILIRUBIN,TOTAL 0.6 MG/DL (0.2-1.0); BLOOD UREA NITROGEN 7 MG/DL (7-18); CALCIUM LEVEL 8.4 MG/DL (8.5-10.1); CARBON DIOXIDE LEVEL 24 MEQ/L (21-32); CHLORIDE LEVEL 109 MEQ/L (98-107); CREATININE FOR GFR 0.88 MG/DL (0.55-1.30); GLOMERULAR FILTRATION RATE > 60.0 (>60); GLUCOSE, FASTING 85 MG/DL (70-100); LIPASE 120 U/L (73-393); POTASSIUM SERUM 3.5 MEQ/L (3.5-5.1); SODIUM LEVEL 141 MEQ/L (136-145); TOTAL PROTEIN 7.3 GM/DL (6.4-8.2)
[2019-01-25 09:19] LABS: AMPHETAMINES LEVEL URINE NEGATIVE (NEGATIVE); BARBITURATES URINE NEGATIVE (NEGATIVE); BENZODIAZEPINES URINE POSITIVE (NEGATIVE); CANNABINOIDS URINE NEGATIVE (NEGATIVE); COCAINE METABOLITE URINE NEGATIVE (NEGATIVE); METHADONE URINE NEGATIVE (NEGATIVE); OPIATES URINE NEGATIVE (NEGATIVE); PHENCYCLIDINE URINE NEGATIVE (NEGATIVE)
[2019-01-25] MEDS ORDERED: KETOROLAC 30 MG/ML VIAL (J1885) IV ONE (09:45)
[2019-01-25] MEDS ORDERED: GNP8.6TA PO (10:55)
[2019-01-25] MEDS ORDERED: BISA10SU PR (10:55)
[2019-01-25] MEDS ORDERED: BISACODYL 10 MG SUPP PR PRN (12:00)
[2019-01-25] MEDS ORDERED: SENNA 8.6 MG TAB (SENOKOT) PO PRN (12:00)
[2019-01-25] MEDS ORDERED: ONDANSETRON 4MG/2ML VIAL (J2405) IV PRN (12:00)
[2019-01-25] MEDS ORDERED: KETOROLAC 30 MG/ML VIAL (J1885) IV PRN (13:00)
--- NOTE | 2019-01-25 13:21 | HPEPDOC ---
General Date of Admission Jan 25, 2019 at 07:02 Date of Service: Jan 25, 2019 Chief Complaint The patient is a 28-year-old female admitted with a reason for visit of Abdominal Pain. Source: Patient, Old records Exam Limitations: No limitations Timing/Duration: Unsure Severity: Mild Associated Symptoms: Nausea, Vomiting, Seizure History of Present Illness This is a 28-year-old female with a history of nonepileptic seizure and abdominal pain. She was just recently discharged from the hospital on January 22. She had been evaluated for her abdominal pain with by radiologic study and [facility] consult; she was not found to have any acute pathology aside from constipation which was treated effectively with laxatives. The patient re- presented today with complaint of abdominal pain. She states it is primarily to her lower abdomen. She rates the pain as 7-8 out of 10. She has not had any fever or chills. She reports one episode of clear fluid emesis prior to coming to the hospital. She also states she did have a seizure this morning prior to coming in. Home Medications Scheduled Lamotrigine (Lamictal) 200 Mg Tab, 200 MG PO BID, (Reported) Levetiracetam (Levetiracetam) 750 Mg Tablet, 750 MG PO BID, (Reported) Levothyroxine Sodium (Synthroid) 137 Mcg Tablet, 137 MCG PO DAILY, (Reported) Scheduled PRN Albuterol Sulfate (Proair Hfa) 8.5 Gm Hfa.aer.ad, 2 PUFF INH Q6H PRN for SOB/WHEEZING, (Reported) Bisacodyl (Bisacodyl) 10 Mg Supp.rect, 10 MG SC DAILY PRN for CONSTIPATION, (Reported) Budesonide/Formoterol (Symbicort 160-4.5 Mcg Inhaler) 60 Puff/Inhaler Aers, 2 PUFF INH BID PRN for ASTHMA SYMPTOMS, (Reported) Cetirizine HCl (ZyrTEC) 10 Mg Capsule, 10 MG PO DAILY PRN for ALLERGY SYMPTOMS, (Reported) Sennosides (Senna Lax) 8.6 Mg Tablet, 2 TAB PO QHS PRN for CONSTIPATION, (Reported) Allergies Coded Allergies: latex (Verified Allergy, Severe, " everything reacts" , 12/20/18) fentanyl (Verified Allergy, Intermediate, hives, 12/20/18) Iodinated Contrast Media (Verified Allergy, Unknown, STOPS BREATHING, 12/20/18) Past Medical History Medical History Past medical history is remarkable for: Non-epileptic spell/pseudoseizure; this was diagnosed after she went for video EEG monitoring at [facility] and [facility]. Hypothyroidism Hodgkin's lymphoma which has been in remission for at least 2 years Diverticular disease asthma Raynaud's phenomena Surgical History Surgical history includes port placement and removal, lymph node resection, tympanostomy, pericardial window Family History Family history is remarkable for seizure disorder in her father, daughter and sister. She also reports maternal history of probable ovarian versus breast cancer. Social History * Smoker: Denies Alcohol: Denies Drugs: denies The patient is a [id number] mother and does not work outside of the home. A-FIB/CHADSVASC A-FIB History Current/History of A-Fib/PAF?: No Current PO Anticoag Therapy: No Review of Systems Other systems Review of 10 systems is otherwise negative except as stated in the brief presentation Physical Examination General Exam: Positive: Alert, No Acute Distress Eye Exam: Positive: PERRLA, Conjunctiva & lids normal ENT Exam: Positive: Atraumatic, Mucous membr. moist/pink (but lip mucosa is dry), Tongue Midline, Nares Patent Neck Exam: Positive: Supple; Negative: JVD, thyromegaly Chest Exam: Positive: Clear to auscultation, Normal air movement Heart Exam: Positive: Rate Normal, Regular Rhythm, Normal S1, Normal S2; Negative: Murmurs, Rubs Abdomen Exam: Positive: Normal bowel sounds (to all quadrants), Soft, Other (I do not elicit guarding or rebound to her anterior abdomen or her flanks); Negative: Tenderness, Hepatospenomegaly Extremity Exam: Positive: Normal pulses; Negative: Clubbing, Cyanosis, Edema Skin Exam: Positive: Nl turgor and temperature, Other skin issue (the patient d oes have some tattoos); Negative: Breakdown, Lesion Neuro Exam: Positive: Normal Gait, Normal Speech, Cranial Nerves 3-12 NL, Reflexes 2+ Psych Exam: Positive: Oriented x 3, Other (the patient has a very flat affect and does not maintain eye contact) Vital Signs Vital Signs Date Time Temp Pulse Resp B/P (MAP) Pulse Ox O2 Delivery O2 Flow Rate FiO2 01/25/19 12:16 81 100 01/25/19 12:15 160/97 (118) 01/25/19 10:54 98.5 16 01/25/19 07:16 Room Air Laboratory Data Labs 24H Laboratory Tests 2 01/25/19 07:39: Nucleated Red Blood Cells % (auto) 0.0, Urine Color YELLOW, Urine Appearance CLOUDYH, Urine pH 7.0, Urine Specific Irwin 1.010, Urine Protein NEGATIVE, Urine Glucose (UA) 1+H, Urine Ketones TRACEH, Urine Blood 3+H, Urine Nitrite NEGATIVE, Urine Bilirubin NEGATIVE, Urine Urobilinogen 0.2, Urine Leukocyte Esterase 3+H, Urine WBC (Auto) 55H, Urine RBC (Auto) 11H, Urine Hyaline Casts (Auto) 0, Urine Bacteria (Auto) 2+H, Urine Squamous Epithelial Cells 17, Urine Mucus (Auto) LARGE, Urine Sperm (Auto) , Lactic Acid Level 1.7, Urine Amphetamines Screen NEGATIVE, Urine Benzodiazepines Screen POSITIVEH, Urine Opiates Screen NEGATIVE, Urine Methadone Screen NEGATIVE, Urine Barbiturates Screen NEGATIVE, Urine Phencyclidine Screen NEGATIVE, Urine Cocaine Metabolite Screen NEGATIVE, Urine Cannabinoids Screen NEGATIVE 01/25/19 07:43: POC Beta HCG, Quantitative < 5.0 01/25/19 08:45: Anion Gap 8, Glomerular Filtration Rate > 60.0, Blood Urea Nitrogen 7, Creatinine 0.88, Sodium Level 141, Potassium Level 3.5, Chloride Level 109H, Carbon Dioxide Level 24, Calcium Level 8.4L, Aspartate Amino Transf (AST/SGOT) 15, Alanine Aminotransferase (ALT/SGPT) 17, Alkaline Phosphatase 58, Total Bilirubin 0.6, Total Protein 7.3, Albumin 3.7, Albumin/Globulin Ratio 1.03, Lip ase 120 01/25/19 08:46: CBC/BMP Laboratory Tests 01/25/19 07:39 Red Blood Count 4.73, Mean Corpuscular Volume 86.5, Mean Corpuscular Hemoglobin 28.8, Mean Corpuscular Hemoglobin Concent 33.3, Red Cell Distribution Width 12.4 01/25/19 08:45 Calcium Level 8.4 L, Aspartate Amino Transf (AST/SGOT) 15, Alanine Aminotransferase (ALT/SGPT) 17, Alkaline Phosphatase 58, Total Bilirubin 0.6, Total Protein 7.3, Albumin 3.7 Microbiology Microbiology 01/25/19 Urine Culture, Received Pending Assessment/Plan 1. Abdominal pain. This is the patient's second or third CT scan for abdominal pain. There is no finding of any acute pathology. Patient was just seen by the surgery service a couple of days ago and was not felt to have an acute/surgical abdomen. Laboratory studies are normal. We will continue to monitor the patient conservatively; we will manage her pain for now with Toradol as opiates could exacerbate pain or constipation. We will place the patient on clear liquids and advance her diet as tolerated. She had been started on IV fluids in the emergency room for some additional hydration, but she states the normal saline is burning her. 2. Nonepileptic seizure. Patient reports having had seizure this morning. We will continue her current medications with no dosage changes. 3. Hypothyroidism. We will continue her current dosage of levothyroxine with no changes. 4. UTI. Objectively, the patient does have a positive urinalysis. She is not especially symptomatic. We'll place her on empiric antibiotics in the form of ceftriaxone while awaiting culture results. The patient is placed observation status. If he patient develops an acute condition we will change her status to inpatient. Plan / VTE VTE Prophylaxis Ordered?: Yes (anoxic apparent) Plan IVF: Initiate Diet: Continue Current (clear liquids) Activity: Encourage Ambulation Pt and Family Services: Home Care Anticipated Discharge: Home ABI BERRY MD Jan 25, 2019 13:21
[2019-01-25 13:30] VITALS: BP 118/72
[2019-01-25] MEDS: LEVOTHYROXINE 137MCG TABLET (0.137MG) PO SCH (14:15)
[2019-01-25] MEDS: levETIRAcetam 250MG TABLET (KEPPRA) PO SCH ×2 (14:15→20:06)
[2019-01-25] MEDS: NS 1,000 ML IV SCH ×2 (14:16→15:59)
[2019-01-25] MEDS: lamoTRIgine 100MG TAB PO SCH ×2 (14:16→20:05)
[2019-01-25] MEDS: ENOXAPARIN 40 MG/0.4 ML SYRINGE (J1650) SC SCH (14:16)
[2019-01-25] MEDS: cefTRIAXone SOD 1 GM in D5W MINI-BAG PLUS 50 ML IV SCH ×2 (14:17→15:59)
[2019-01-25 16:00] VITALS: BP 119/80
[2019-01-25] MEDS ORDERED: NS 500 ML IV ONE (16:45)
[2019-01-25] MEDS ORDERED: ONDANSETRON 4 MG ORAL DISINTEGRATING TAB (Q0162 PER 1MG) PO PRN (17:45)
[2019-01-25] MEDS: CIPROFLOXACIN 500 MG TAB PO SCH (17:50)
[2019-01-25] MEDS: SYMBICORT 160/4.5MCG INHALER 6GM INH SCH (19:50)
[2019-01-25 20:00] VITALS: BP 111/72
[2019-01-26] VITALS (7 sets, daily range): BP systolic 100–132; BP diastolic 58–79
[2019-01-26 06:21] LABS: ALBUMIN 3.4 GM/DL (3.2-5.2); ALT/SGPT 18 U/L (12-78); BILIRUBIN,TOTAL 0.4 MG/DL (0.2-1.0); BLOOD UREA NITROGEN 6 MG/DL (7-18); CALCIUM LEVEL 8.3 MG/DL (8.5-10.1); CARBON DIOXIDE LEVEL 24 MEQ/L (21-32); CHLORIDE LEVEL 109 MEQ/L (98-107); CREATININE FOR GFR 0.85 MG/DL (0.55-1.30); GLOMERULAR FILTRATION RATE > 60.0 (>60); GLUCOSE, FASTING 87 MG/DL (70-100); POTASSIUM SERUM 3.7 MEQ/L (3.5-5.1); SODIUM LEVEL 139 MEQ/L (136-145); TOTAL PROTEIN 6.3 GM/DL (6.4-8.2)
[2019-01-26] MEDS: LEVOTHYROXINE 137MCG TABLET (0.137MG) PO SCH (06:37)
[2019-01-26] MEDS: CIPROFLOXACIN 500 MG TAB PO SCH ×2 (06:37→17:28)
[2019-01-26] MEDS: KETOROLAC TROMETHAMINE 10 MG TAB PO PRN ×2 (06:37→13:57)
[2019-01-26] MEDS: SYMBICORT 160/4.5MCG INHALER 6GM INH SCH ×2 (07:32→20:24)
[2019-01-26] MEDS: ENOXAPARIN 40 MG/0.4 ML SYRINGE (J1650) SC SCH (09:28)
[2019-01-26] MEDS: levETIRAcetam 250MG TABLET (KEPPRA) PO SCH ×2 (09:28→20:13)
[2019-01-26] MEDS: lamoTRIgine 100MG TAB PO SCH ×2 (09:28→20:13)
[2019-01-26] MEDS: PANTOPRAZOLE 40MG TAB (PROTONIX) PO SCH (14:40)
[2019-01-26 14:53] LABS: AMORPHOUS SEDIMENT SMALL (NEGATIVE); APPEARANCE, URINE TURBID (CLEAR); BACTERIA, URINE AUTO 2+ (NEGATIVE); BILIRUBIN, URINE AUTO 1+ (NEGATIVE); BLOOD, URINE BLOOD 3+ (NEGATIVE); COLOR, URINE AMBER (YELLOW); GLUCOSE, URINE (UA) AUTO 1+ mg/dL (NEGATIVE); KETONE, URINE AUTO TRACE mg/dL (NEGATIVE); LEUKOCYTE ESTERASE, URINE AUTO 2+ (NEGATIVE); MUCUS, URINE LARGE (NEGATIVE); NITRITE, URINE AUTO NEGATIVE (NEGATIVE); PROTEIN, URINE AUTO 3+ mg/dL (NEGATIVE); RBC, URINE AUTO 11 /HPF (0-3); SPECIFIC GRAVITY URINE AUTO 1.033 (1.002-1.035); SQUAMOUS EPITHELIAL CELL UR AU 56 /HPF (0-6); WBC, URINE AUTO TNTC /HPF (0-3)
--- NOTE | 2019-01-26 17:15 | IPNPDOC ---
Text Note Date of Service The patient was seen on 01/26/19. NOTE SUBJECTIVE: The patient states she "feels like crap". She has had frequent presentations to the ER this month with complaints of abdominal pain. She has not had any nausea or vomiting overnight. She denies any seizure activity overnight. She is requesting that her diet be advanced. OBJECTIVE: Please see vital signs below--- patient is also noted to become tachycardic upon standing. Physical exam: HENT: Neck is supple with no adenopathy or thyromegaly. Oral mucosa is moist CV: Regular rate and rhythm. No appreciable murmur. Respiratory: Clear to auscultation with good air movement. Abdomen: Soft, nondistended, ample bowel tones to all 4 quadrants. Does have some tenderness to lower abdomen but no guarding or rebound. She does not have flank tenderness. Extremities: No peripheral edema or lesions and pedal pulses are palpable. Neuro: No focal neuromotor or sensory deficits. Psych: Patient continues with very flat and depressed affect ASSESSMENT/PLAN: 1. Abdominal pain. The patient has now had 4 CT scans for abdominal pain since January 19. There is no finding of any acute pathology. Patient was just seen by the surgery service a couple of days ago and was not felt to have an acute/surgical abdomen. Laboratory studies are normal; there are no electrolyte abnormalities. Bilirubin and liver enzymes are normal. She does not have leukocytosis. Hemoglobin has essentially remained stable since January 19. We will continue to monitor the patient conservatively; we will manage her pain for now with Toradol as opiates could exacerbate pain or constipation. The patient had complained of some nausea and vomiting and was initially placed on clear liquid diet with IV fluids. She complained that the normal saline was burning her and so that was stopped. She has requested that her diet be advanced. 2. Nonepileptic seizure. We will continue her current medications with no dosage changes. 3. Hypothyroidism. We will continue her current dosage of levothyroxine with no changes. 4. UTI. Objectively, the patient did have a positive urinalysis. She is not especially symptomatic. We have placed her on empiric antibiotics in the form of ceftriaxone. Urine culture was negative for organisms. Patient's urine is bloody and purulent looking. Repeat urinalysis is again positive for white cells, red cells and bacteria. Patient could have a hemorrhagic cystitis. Plans are to evaluate her by ultrasound and consider urology consult for cystoscopy. VS,Fishbone, I+O VS, Fishbone, I+O Laboratory Tests 01/26/19 05:24 Calcium Level 8.3 L, Aspartate Amino Transf (AST/SGOT) 16, Alanine Aminotransferase (ALT/SGPT) 18, Alkaline Phosphatase 47, Total Bilirubin 0.4, Total Protein 6.3 L, Albumin 3.4 Vital Signs Date Time Temp Pulse Resp B/P (MAP) Pulse Ox O2 Delivery O2 Flow Rate FiO2 01/26/19 16:00 99.6 96 18 121/68 (85) 99 01/25/19 07:16 Room Air I&O- Last 24 Hours up to 6 AM 01/26/19 06:00 Intake Total 2100 ml Output Total 1250 ml Balance 850 ml ABI BERRY MD Jan 26, 2019 17:15
[2019-01-27] VITALS: BP 96/51
[2019-01-27 04:00] VITALS: BP 110/62
[2019-01-27] MEDS: LEVOTHYROXINE 137MCG TABLET (0.137MG) PO SCH (05:57)
[2019-01-27] MEDS: KETOROLAC TROMETHAMINE 10 MG TAB PO PRN ×2 (05:57→12:18)
[2019-01-27] MEDS: CIPROFLOXACIN 500 MG TAB PO SCH ×2 (05:58→18:35)
[2019-01-27] MEDS: SYMBICORT 160/4.5MCG INHALER 6GM INH SCH ×2 (07:14→20:14)
[2019-01-27 08:00] VITALS: BP 112/69
[2019-01-27] MEDS: lamoTRIgine 100MG TAB PO SCH ×2 (08:39→21:33)
[2019-01-27] MEDS: PANTOPRAZOLE 40MG TAB (PROTONIX) PO SCH (08:39)
[2019-01-27] MEDS: levETIRAcetam 250MG TABLET (KEPPRA) PO SCH ×2 (08:39→21:32)
[2019-01-27] MEDS: ENOXAPARIN 40 MG/0.4 ML SYRINGE (J1650) SC SCH (08:40)
[2019-01-27 12:00] VITALS: BP 123/75
--- NOTE | 2019-01-27 12:42 | IPNPDOC ---
Text Note Date of Service The patient was seen on 01/27/19. NOTE SUBJECTIVE: The patient continues to complain of lower abdominal pain. She is tolerating a normal diet. At times she is still having hematuria. She has not had any seizure activity overnight. OBJECTIVE: Please see vital signs below Physical exam: HENT: Neck is supple with no adenopathy or thyromegaly. Oral mucosa is moist, no scleral icterus or jaundice CV: Regular rate and rhythm. No appreciable murmur. Respiratory: Clear to auscultation with good air movement. Abdomen: Soft, nondistended, flat, ample bowel tones to all 4 quadrants. Does have some tenderness to lower abdomen/suprapubic region but no guarding or rebound. She does not have flank tenderness. Extremities: No peripheral edema or lesions and pedal pulses are palpable. Neuro: No focal neuromotor or sensory deficits. Psych: Patient continues with very flat and depressed affect, also at times irritable ASSESSMENT/PLAN: 1. Abdominal pain. The patient has now had 4 CT scans for abdominal pain since January 19. There is no finding of any acute pathology. Patient was just seen by the surgery service a couple of days ago and was not felt to have an acute/surgical abdomen. Laboratory studies are normal; there are no electrolyte abnormalities. Bilirubin and liver enzymes are normal. She does not have leukocytosis. Hemoglobin has essentially remained stable since January 19. We will continue to monitor the patient conservatively; she is now saying that the Toradol is not effective for her pain. We will make use of hydrocodone and make sure she has bowel care medic ation. The patient had complained of some nausea and vomiting and was initially placed on clear liquid diet with IV fluids. She complained that the normal saline was burning her and so that was stopped. She is now tolerating a regular diet. 2. Nonepileptic seizure. We will continue her current medications with no dosage changes. 3. Hypothyroidism. We will continue her current dosage of levothyroxine with no changes. 4. UTI. Objectively, the patient did have a positive urinalysis on now 2 occasions. She is not especially symptomatic; does not have dysuria but does have hematuria. We have placed her on empiric antibiotics in the form of ceftriaxone. Urine culture is now negative for organisms on 2 occasions. Patient could have a hemorrhagic cystitis. Plans are to evaluate her by ultrasound and consider urology consult for cystoscopy. Additional option is transvaginal ultrasound as well. VS,Fishbone, I+O VS, Fishbone, I+O Vital Signs Date Time Temp Pulse Resp B/P (MAP) Pulse Ox O2 Delivery O2 Flow Rate FiO2 01/27/19 12:00 97.1 78 18 123/75 (91) 99 01/25/19 07:16 Room Air I&O- Last 24 Hours up to 6 AM 01/27/19 06:00 Intake Total 510 ml Output Total 550 ml Balance -40 ml ABI BERRY MD Jan 27, 2019 12:41
[2019-01-27] MEDS: NORCO, ANEXSIA 5/325MG TABLET (HYDROcodone/ACETAMINOPHEN) PO PRN ×2 (13:52→21:33)
[2019-01-27 16:00] VITALS: BP 117/74
[2019-01-27 20:00] VITALS: BP 117/73
[2019-01-28] VITALS (7 sets, daily range): BP systolic 111–144; BP diastolic 59–94
[2019-01-28] MEDS: CIPROFLOXACIN 500 MG TAB PO SCH ×2 (05:53→17:55)
[2019-01-28] MEDS: LEVOTHYROXINE 137MCG TABLET (0.137MG) PO SCH (05:53)
[2019-01-28 06:06] LABS: BASO % 0.6 % (0.0-1.0); EOS # 0.1 10^3/uL (0.0-0.5); EOS % 2.3 % (0.0-3.0); HEMATOCRIT 35.5 % (36.0-47.0); HEMOGLOBIN 11.6 g/dl (12.0-15.5); LYMPH # 1.6 10^3/uL (1.5-5.0); MEAN CORPUSCULAR HEMOGLOBIN 28.2 pg (27.0-33.0); MEAN CORPUSCULAR HGB CONC 32.7 g/dl (32.0-36.5); MEAN CORPUSCULAR VOLUME 86.4 fl (80.0-96.0); MONO # 0.3 10^3/uL (0.0-0.8); MONO % 8.2 % (0.0-5.0); NEUTROPHILS # 1.5 10^3/uL (1.5-8.5); NEUTROPHILS % 42.9 % (36.0-66.0); PLATELET COUNT, AUTOMATED 161 10^3/uL (150-450); RED BLOOD COUNT 4.11 10^6/uL (4.00-5.40); WHITE BLOOD COUNT 3.5 10^3/uL (4.0-10.0)
[2019-01-28 06:24] LABS: BLOOD UREA NITROGEN 12 MG/DL (7-18); CALCIUM LEVEL 8.2 MG/DL (8.5-10.1); CARBON DIOXIDE LEVEL 26 MEQ/L (21-32); CHLORIDE LEVEL 109 MEQ/L (98-107); CREATININE FOR GFR 0.86 MG/DL (0.55-1.30); GLOMERULAR FILTRATION RATE > 60.0 (>60); GLUCOSE, FASTING 87 MG/DL (70-100); POTASSIUM SERUM 3.6 MEQ/L (3.5-5.1); SODIUM LEVEL 141 MEQ/L (136-145)
[2019-01-28] MEDS: SYMBICORT 160/4.5MCG INHALER 6GM INH SCH ×2 (07:16→20:42)
[2019-01-28] MEDS: PANTOPRAZOLE 40MG TAB (PROTONIX) PO SCH (09:15)
[2019-01-28] MEDS: lamoTRIgine 100MG TAB PO SCH ×2 (09:15→21:32)
[2019-01-28] MEDS: levETIRAcetam 250MG TABLET (KEPPRA) PO SCH ×2 (09:15→21:33)
[2019-01-28] MEDS: NORCO, ANEXSIA 5/325MG TABLET (HYDROcodone/ACETAMINOPHEN) PO PRN ×3 (09:16→21:34)
--- NOTE | 2019-01-28 19:07 | IPNPDOC ---
Text Note Date of Service The patient was seen on 01/28/19. NOTE SUBJECTIVE: Ms. Mena continues to be uncomfortable. She primarily complains of lower abdominal pain. OBJECTIVE: Please see vital signs below Physical exam: HENT: Neck is supple with no adenopathy or thyromegaly. Oral mucosa is moist, no scleral icterus or jaundice CV: Regular rate and rhythm. No appreciable murmur. Respiratory: Clear to auscultation with good air movement. Abdomen: Soft, nondistended, flat, ample bowel tones to all 4 quadrants. Does have some tenderness to lower abdomen/suprapubic region but no guarding or rebound. She does not have flank tenderness. Extremities: No peripheral edema or lesions and pedal pulses are palpable. Neuro: No focal neuromotor or sensory deficits. Psych: Patient continues with very flat and depressed affect, also at times irritable ASSESSMENT/PLAN: 1. Abdominal pain. The patient has now had 4 CT scans for abdominal pain since January 19. There is no finding of any acute pathology. Patient was just seen by the surgery service a couple of days ago and was not felt to have an acute/surgical abdomen. Laboratory studies are normal; there are no electrolyte abnormalities. Bilirubin and liver enzymes are normal. She does not have leukocytosis. Hemoglobin has essentially remained stable since January 19. We will continue to monitor the patient conservatively; she is now saying that the Toradol is not effective for her pain. We are making use of hydrocodone and will make sure she has bowel care medication. The patient had complained of some nausea and vomiting and was initially placed on clear liquid diet with IV fluids. She complained that the normal saline was burning her and so that was stopped. She is now tolerating a regular diet. 2. Nonepileptic seizure. We will continue her current medications with no dosage changes. 3. Hypothyroidism. We will continue her current dosage of levothyroxine with no changes. 4. UTI. Objectively, the patient has had a positive urinalysis on now 2 occasions. She is not especially symptomatic; does not have dysuria but does have hematuria. We have placed her on empiric antibiotics in the form of ceftriaxone. Urine cultures are now negative for organisms on 2 occasions. Ultrasound rarely shows thickened bladder wall. Patient likely has hemorrhagic cystitis. Case has been discussed with the [employer] [employer] service and cystoscopy has been recommended. This will be discussed with the patient. 5. Non-Hodgkin's lymphoma. The patient has been in remission for at least 2 years. She is upset that her white count has dropped a bit. We have explained to her that her absolute neutro jackie count is greater than 1500 and that she is not neutropenic. VS,Fishbone, I+O VS, Fishbone, I+O Laboratory Tests 01/28/19 05:08 Red Blood Count 4.11, Mean Corpuscular Volume 86.4, Mean Corpuscular Hemoglobin 28.2, Mean Corpuscular Hemoglobin Concent 32.7, Red Cell Distribution Width 12.1, Neutrophils (%) (Auto) 42.9, Lymphocytes (%) (Auto) 46.0 H, Monocytes (%) (Auto) 8.2 H, Eosinophils (%) (Auto) 2.3, Basophils (%) (Auto) 0.6, Neutrophils # (Auto) 1.5, Lymphocytes # (Auto) 1.6, Monocytes # (Auto) 0.3, Eosinophils # (Auto) 0.1, Basophils # (Auto) 0.0, Calcium Level 8.2 L Vital Signs Date Time Temp Pulse Resp B/P (MAP) Pulse Ox O2 Delivery O2 Flow Rate FiO2 01/28/19 16:08 16 01/28/19 16:00 99.0 89 144/94 (111) 99 01/25/19 07:16 Room Air I&O- Last 24 Hours up to 6 AM 01/28/19 06:00 Intake Total 1030 ml Output Total 1300 ml Balance -270 ml ABI BERRY MD Jan 28, 2019 19:07
--- NOTE | 2019-01-28 19:42 | REP ---
Limited pelvic, bladder sonography: Repeat dictation. History: Pelvic pain. Preliminary report is provided at the time of examination by Christina Naranjo. Findings: Prevoid bladder volume is calculated at only 23 ml despite the patient reporting of feeling of bladder fullness. No bladder mass lesion is seen. Postvoid bladder residual is 0.2 ml. Emptying ureteral jets are observed from the left ureter. Impression: Very limited filled bladder volume. No abnormality seen morphologically. Electronically Signed by Luke Ramesh MD 01/28/2019 08:02 P
[2019-01-28 19:46] LABS: BASO % 0.6 % (0.0-1.0); EOS # 0.1 10^3/uL (0.0-0.5); EOS % 1.8 % (0.0-3.0); HEMATOCRIT 40.3 % (36.0-47.0); HEMOGLOBIN 13.3 g/dl (12.0-15.5); LYMPH # 1.9 10^3/uL (1.5-5.0); LYMPH % 36.8 % (24.0-44.0); MEAN CORPUSCULAR HEMOGLOBIN 28.4 pg (27.0-33.0); MEAN CORPUSCULAR VOLUME 86.1 fl (80.0-96.0); MONO # 0.4 10^3/uL (0.0-0.8); MONO % 7.2 % (0.0-5.0); NEUTROPHILS # 2.7 10^3/uL (1.5-8.5); NEUTROPHILS % 52.8 % (36.0-66.0); PLATELET COUNT, AUTOMATED 126 10^3/uL (150-450); RED BLOOD COUNT 4.68 10^6/uL (4.00-5.40); WHITE BLOOD COUNT 5.1 10^3/uL (4.0-10.0)
[2019-01-28] MEDS ORDERED: AMITRIPTYLINE 25 MG TAB PO SCH (21:00)
[2019-01-29 06:00] VITALS: BP 119/70
[2019-01-29] MEDS: LEVOTHYROXINE 137MCG TABLET (0.137MG) PO SCH (06:07)
[2019-01-29] MEDS: CIPROFLOXACIN 500 MG TAB PO SCH (06:07)
[2019-01-29] MEDS: SYMBICORT 160/4.5MCG INHALER 6GM INH SCH (07:13)
[2019-01-29] MEDS: lamoTRIgine 100MG TAB PO SCH (08:59)
[2019-01-29] MEDS: PANTOPRAZOLE 40MG TAB (PROTONIX) PO SCH (08:59)
[2019-01-29] MEDS: levETIRAcetam 250MG TABLET (KEPPRA) PO SCH (08:59)
[2019-01-29] MEDS ORDERED: ONDA4TAB6 PO (11:45)
[2019-01-29] MEDS ORDERED: PANT40TA3 PO (11:45)
[2019-01-29] MEDS ORDERED: HYDR-4571 PO (11:45)
[2019-01-29] MEDS ORDERED: AMIT25TA PO (11:45)
[2019-01-29 14:40] LABS: LAMOTRIGINE (LAMICTAL) 6.9 ug/mL (2.0-20.0); LEVETIRACETAM (KEPPRA) 7.8 ug/mL (10.0-40.0)
== END 2019-01-29 17:25 | disposition home or self-care (01) ==
LOC: M ED 07:01 → UNDOADMIN 07:02 → M ED INP 07:02 → M PCU 13:26 → M MS4PR 01-28 19:41 → M ED INP 01-29 01:24 → M MS4PR 01-29 01:25
PROVIDERS: ADMIT Internal Medicine; ATTEND Internal Medicine
DX: R10.30 Lower abdominal pain, unspecified (principal); R56.9 Unspecified convulsions; R31.9 Hematuria, unspecified; E03.9 Hypothyroidism, unspecified; N39.0 Urinary tract infection, site not specified; R11.10 Vomiting, unspecified; C81.90 Hodgkin lymphoma, unspecified, unspecified site; K57.90 Diverticulosis of intestine, part unspecified, without perforation or abscess without bleeding; J45.909 Unspecified asthma, uncomplicated; I73.00 Raynaud's syndrome without gangrene; Z82.0 Family history of epilepsy and other diseases of the nervous system; Z79.899 Other long term (current) drug therapy; Z91.041 Radiographic dye allergy status; Z91.040 Latex allergy status; Z88.5 Allergy status to narcotic agent
CPT/HCPCS: 36415; 70450; 72125; 74176; 76857; 80048; 80053; 80175; 80180; 80307; 81001; 83605; 83690; 84702; 85025; 85027; 87086; 96372; 96374; 96375; 99285; J1650; J1885

== ENCOUNTER → 2019-02-01 | Outpatient (REF) | payer MEDICAID ==
[~2019-02-01] MED LIST changes: +AMIT25TA PO; +BISA10SU PR; +GNP8.6TA PO; +HYDR-4571 PO; +PANT40TA3 PO
[2019-02-01 18:41] LABS: AMORPHOUS SEDIMENT MODERATE (NEGATIVE); APPEARANCE, URINE TURBID (CLEAR); BACTERIA, URINE AUTO NEGATIVE (NEGATIVE); BILIRUBIN, URINE AUTO NEGATIVE (NEGATIVE); BLOOD, URINE BLOOD 1+ (NEGATIVE); COLOR, URINE YELLOW (YELLOW); GLUCOSE, URINE (UA) AUTO NEGATIVE (NEGATIVE); KETONE, URINE AUTO NEGATIVE (NEGATIVE); LEUKOCYTE ESTERASE, URINE AUTO 1+ (NEGATIVE); MUCUS, URINE SMALL (NEGATIVE); NITRITE, URINE AUTO NEGATIVE (NEGATIVE); PROTEIN, URINE AUTO NEGATIVE (NEGATIVE); RBC, URINE AUTO 1 /HPF (0-3); SPECIFIC GRAVITY URINE AUTO 1.017 (1.002-1.035); SQUAMOUS EPITHELIAL CELL UR AU 4 /HPF (0-6); UROBILINOGEN, URINE AUTO 0.2 mg/dL (0.0-2.0); WBC, URINE AUTO 2 /HPF (0-3)
== END ==
LOC: M LAB REF 16:16
PROVIDERS: ATTEND Obstetrics & Gynecology
DX: N30.01 Acute cystitis with hematuria (principal)

== ENCOUNTER → 2019-03-13 | Outpatient (REF) | payer MEDICAID ==
[~2019-03-13] MED LIST changes: +HYDR-3713 PO
[2019-03-13 17:55] LABS: APPEARANCE, URINE CLOUDY (CLEAR); BACTERIA, URINE AUTO 2+ (NEGATIVE); BILIRUBIN, URINE AUTO NEGATIVE (NEGATIVE); BLOOD, URINE BLOOD NEGATIVE (NEGATIVE); COLOR, URINE YELLOW (YELLOW); GLUCOSE, URINE (UA) AUTO NEGATIVE (NEGATIVE); KETONE, URINE AUTO NEGATIVE (NEGATIVE); LEUKOCYTE ESTERASE, URINE AUTO 3+ (NEGATIVE); NITRITE, URINE AUTO NEGATIVE (NEGATIVE); PROTEIN, URINE AUTO NEGATIVE (NEGATIVE); RBC, URINE AUTO 6 /HPF (0-3); SPECIFIC GRAVITY URINE AUTO 1.021 (1.002-1.035); SQUAMOUS EPITHELIAL CELL UR AU 16 /HPF (0-6); UROBILINOGEN, URINE AUTO 0.2 mg/dL (0.0-2.0); WBC, URINE AUTO 11 /HPF (0-3)
== END ==
LOC: M LAB REF 16:43
PROVIDERS: ATTEND Obstetrics & Gynecology
DX: R10.2 Pelvic and perineal pain (principal); N30.11 Interstitial cystitis (chronic) with hematuria; N30.01 Acute cystitis with hematuria

== ENCOUNTER → 2019-03-25 | Outpatient (REF) | payer MEDICAID ==
[2019-03-25 19:08] LABS: FREE T4 0.7 NG/DL (0.76-1.46); THYROID STIMULATING HORMONE 6.7 uIU/ML (0.358-3.740)
== END ==
LOC: M SFHCPLAZ 14:49
PROVIDERS: ATTEND Family Medicine
DX: E03.9 Hypothyroidism, unspecified (principal)

== ENCOUNTER 2019-04-23 05:13 | Emergency (ER) | payer MEDICAID ==
[~2019-04-23] VITALS: Ht 162.6 cm; Wt 77.3 kg
[2019-04-23] MEDS ORDERED: METAL LOCK LOOP XX ONE (05:25)
[2019-04-23] MEDS ORDERED: LEVO150T7 PO (06:28)
[2019-04-23 06:34] LABS: BASO % 0.4 % (0.0-1.0); EOS % 0.6 % (0.0-3.0); HEMATOCRIT 44.3 % (36.0-47.0); HEMOGLOBIN 14.2 g/dl (12.0-15.5); LYMPH # 1.4 10^3/uL (1.5-5.0); LYMPH % 20.1 % (24.0-44.0); MEAN CORPUSCULAR HEMOGLOBIN 28.2 pg (27.0-33.0); MEAN CORPUSCULAR HGB CONC 32.1 g/dl (32.0-36.5); MEAN CORPUSCULAR VOLUME 88.1 fl (80.0-96.0); MONO # 0.4 10^3/uL (0.0-0.8); MONO % 5.2 % (0.0-5.0); NEUTROPHILS # 5.3 10^3/uL (1.5-8.5); NEUTROPHILS % 73.4 % (36.0-66.0); PLATELET COUNT, AUTOMATED 207 10^3/uL (150-450); RED BLOOD COUNT 5.03 10^6/uL (4.00-5.40); WHITE BLOOD COUNT 7.2 10^3/uL (4.0-10.0)
[2019-04-23] MEDS ORDERED: NS 1,000 ML IV ONE (06:45)
[2019-04-23] MEDS ORDERED: KETOROLAC 30 MG/ML VIAL (J1885) IV ONE (06:45)
[2019-04-23 07:16] LABS: ALT/SGPT 15 U/L (12-78); BILIRUBIN,DIRECT 0.1 MG/DL (0.0-0.2); BILIRUBIN,TOTAL 0.3 MG/DL (0.2-1.0); BLOOD UREA NITROGEN 19 MG/DL (7-18); CALCIUM LEVEL 9.3 MG/DL (8.5-10.1); CARBON DIOXIDE LEVEL 24 MEQ/L (21-32); CHLORIDE LEVEL 107 MEQ/L (98-107); CREATININE FOR GFR 0.95 MG/DL (0.55-1.30); GLOMERULAR FILTRATION RATE > 60.0 (>60); GLUCOSE, FASTING 80 MG/DL (70-100); LIPASE 149 U/L (73-393); POTASSIUM SERUM 4.2 MEQ/L (3.5-5.1); SODIUM LEVEL 141 MEQ/L (136-145); TOTAL PROTEIN 7.6 GM/DL (6.4-8.2)
[2019-04-23] MEDS ORDERED: MORPHINE 4 MG/ML 1ML VIAL/SYRINGE (J2270) IV ONE (07:30)
[2019-04-23] MEDS ORDERED: NS IV ONE (10:00)
[2019-04-23] MEDS ORDERED: KETAMINE HCL IV ONE (10:00)
--- NOTE | 2019-04-23 10:30 | REP ---
REPEAT DICTATION PELVIC SONOGRAPHY: HISTORY: Pelvic pain. Lower pelvic pain. Preliminary report is provided by [facility]. FINDINGS: Transabdominal and transvaginal scanning are performed. Uterine dimensions are normal measured at 6.8 x 2.8 x 4.4 cm. Endometrial echo 0.4 cm thick. No focal uterine mass is seen. Visualization of the adnexa is impaired somewhat by peristalsing bowel. Right ovary dimensions are 1.8 x 1.0 x 1.2 cm. Left ovary measures 1.7 x 1.0 x 2.1 cm. Poorly defined complex tubular shaped structures are seen in each axilla without reproducible mass lesion. No free fluid. Electronically Signed by Luke Ramesh MD 04/23/2019 10:37 A
--- NOTE | 2019-04-23 10:38 | REP ---
CT ABDOMEN AND PELVIS WITHOUT IV OR ORAL CONTRAST: HISTORY: Lower abdomen pain. Inconclusive pelvic sonography. Comparison CT study January 25, 2019. CT FINDINGS: Preliminary digital manager of loss prevention operations radiograph shows an air-filled mildly dilated small bowel loop in the left mid abdomen. The lung bases are clear on axial CT images. The liver and the spleen are normal in size homogeneous in texture. There is a small accessory splenule. No abnormality is noted in the pancreas or gallbladder. Kidneys are morphologically intact. No hydronephrosis or calculus disease is seen. No retroperitoneal mass or adenopathy is observed. The small and large bowel loops are otherwise unremarkable. The air filled loop in the left upper quadrant is seen but no obstructive lesion is observed. A normal caliber non-inflamed appendix is observed. Pelvic CT images demonstrate that the uterus is tipped to the right and somewhat retroverted. It is normal in size. No adnexal mass or abnormal cystic structure is seen. There is no evidence of free fluid. Urinary bladder is unremarkable. No abdominal wall defect is seen. IMPRESSION: No adnexal pathology seen. Normal appendix. No urinary tract calculus. Nonspecific mildly prominent loop of small bowel in the left upper quadrant. No evidence of obstruction. Electronically Signed by Luke Ramesh MD 04/23/2019 10:40 A
[2019-04-23] MEDS ORDERED: PERCOCET 5MG/325MG TAB PO ONE (11:15)
[2019-04-23] MEDS ORDERED: PERC5TAB12 PO (12:39)
[2019-04-23] MEDS ORDERED: MIRA3350 PO (12:40)
[2019-04-23 13:00] VITALS: BP 117/81
== END 2019-04-23 13:32 | disposition home or self-care (01) ==
LOC: M ED 05:13 → EDBD 05:13 → M ED 13:32
DX: R10.30 Lower abdominal pain, unspecified (principal); G40.909 Epilepsy, unspecified, not intractable, without status epilepticus; K21.9 Gastro-esophageal reflux disease without esophagitis; Z85.72 Personal history of non-Hodgkin lymphomas; Z87.440 Personal history of urinary (tract) infections; Z91.041 Radiographic dye allergy status; Z91.040 Latex allergy status; Z88.4 Allergy status to anesthetic agent; Z79.899 Other long term (current) drug therapy; Z79.51 Long term (current) use of inhaled steroids
CPT/HCPCS: 74176; 76830; 76856; 80048; 80076; 81001; 83690; 84702; 85025; 93976; 96374; 96375; 99285; J1885; J2270

== ENCOUNTER 2019-05-07 08:12 | Emergency (ER) | payer MEDICAID ==
[~2019-05-07] VITALS: Ht 165.1 cm; Wt 72.7 kg
[2019-05-07 08:12] VITALS: BP 118/67
[~2019-05-07 08:12] MED LIST changes: +LEVO150T7 PO; +PERC5TAB12 PO
[2019-05-07] MEDS ORDERED: GABA-1171 (08:23)
[2019-05-07] MEDS ORDERED: NYST50SS PO (10:14)
== END 2019-05-07 10:23 | disposition home or self-care (01) ==
LOC: M ED 08:12
DX: B37.0 Candidal stomatitis (principal); Z91.041 Radiographic dye allergy status; Z88.6 Allergy status to analgesic agent; Z91.040 Latex allergy status; Z79.899 Other long term (current) drug therapy; Z79.51 Long term (current) use of inhaled steroids

== ENCOUNTER → 2019-05-27 | Outpatient (CLI) | payer MEDICAID ==
[~2019-05-27] MED LIST changes: +GABA-1171; -LIDO1SOL8 SS; +LIDO2SOL17 SS; +NYST50SS PO
== END ==
LOC: M LAB 16:25
PROVIDERS: ATTEND Psychiatry & Neurology Neurology
DX: Z13.79 Encounter for other screening for genetic and chromosomal anomalies (principal)

== ENCOUNTER → 2019-05-30 | Outpatient (REF) | payer MEDICAID ==
[2019-05-30 11:38] LABS: BASO % 0.7 % (0.0-1.0); EOS # 0.1 10^3/uL (0.0-0.5); EOS % 1.1 % (0.0-3.0); HEMATOCRIT 44.4 % (36.0-47.0); HEMOGLOBIN 13.8 g/dl (12.0-15.5); LYMPH # 1.3 10^3/uL (1.5-5.0); LYMPH % 30.6 % (24.0-44.0); MEAN CORPUSCULAR HEMOGLOBIN 27.8 pg (27.0-33.0); MEAN CORPUSCULAR HGB CONC 31.1 g/dl (32.0-36.5); MEAN CORPUSCULAR VOLUME 89.3 fl (80.0-96.0); MONO # 0.3 10^3/uL (0.0-0.8); MONO % 6.8 % (0.0-5.0); NEUTROPHILS # 2.6 10^3/uL (1.5-8.5); NEUTROPHILS % 60.3 % (36.0-66.0); PLATELET COUNT, AUTOMATED 220 10^3/uL (150-450); RED BLOOD COUNT 4.97 10^6/uL (4.00-5.40); WHITE BLOOD COUNT 4.4 10^3/uL (4.0-10.0)
[2019-05-30 11:54] LABS: ALBUMIN 4.2 GM/DL (3.2-5.2); ALT/SGPT 15 U/L (12-78); BILIRUBIN,TOTAL 0.4 MG/DL (0.2-1.0); BLOOD UREA NITROGEN 13 MG/DL (7-18); C REACTIVE PROTEIN QUANTITATIV < 0.30 MG/DL (0.00-0.30); CALCIUM LEVEL 8.8 MG/DL (8.5-10.1); CARBON DIOXIDE LEVEL 26 MEQ/L (21-32); CHLORIDE LEVEL 105 MEQ/L (98-107); CREATININE FOR GFR 0.87 MG/DL (0.55-1.30); FREE T4 0.75 NG/DL (0.76-1.46); GLOMERULAR FILTRATION RATE > 60.0 (>60); GLUCOSE, FASTING 54 MG/DL (70-100); POTASSIUM SERUM 4.1 MEQ/L (3.5-5.1); SODIUM LEVEL 139 MEQ/L (136-145); TOTAL PROTEIN 7.7 GM/DL (6.4-8.2)
[2019-05-30 12:16] LABS: ERYTHROCYTE SEDIMENTATION RATE 7 mm/hr (0-20)
== END ==
LOC: M SFHCPLAZ 09:07
PROVIDERS: ATTEND Family Medicine
DX: R59.9 Enlarged lymph nodes, unspecified (principal); E03.9 Hypothyroidism, unspecified

== ENCOUNTER → 2019-05-31 | Outpatient (CLI) | payer MEDICAID ==
--- NOTE | 2019-05-31 15:32 | REP ---
Clinical: Adenopathy. Technique: Real time eaton scale and color ultrasound examination using linear high frequency transducer. Findings: Directed ultrasound examination in the right periauricular region demonstrates small normal lymph node measuring 9.2 x 2.6 x 4.6 mm. No abnormal fluid collection or mass lesion. Further evaluation of the right cervical chain demonstrates relatively normal lymph nodes measuring 8.3 x 3.4 x 5.2 mm and 7.8 x 1.6 x 3.2 mm. Similar left-sided lymph nodes are identified measuring 7.8 x 3.0 x 4.4 mm and 9.2 x 1.9 x 5.1 mm. Impression: Normal lymph nodes. Electronically Signed by Onel Encinas MD 05/31/2019 03:24 P
== END ==
LOC: M RAD 14:38
PROVIDERS: ATTEND Family Medicine
DX: I89.0 Lymphedema, not elsewhere classified (principal)

== ENCOUNTER 2019-06-13 12:14 | Day surgery (SDC) | payer MEDICAID ==
[~2019-06-13] VITALS: Ht 165.1 cm; Wt 64.4 kg
[~2019-06-13 12:14] MED LIST changes: -GABA-1171; +GABA-1171 PO; +KEPP1TAB2 PO; +LR 1,000 ML IV ONE; +fentaNYL 250 MCG/5 ML INJECTION (J3010) As Ordered ONE; +propofoL 200 MG/20 ML VIAL As Ordered ONE
[2019-06-13] MEDS ORDERED: propofoL 200 MG/20 ML VIAL As Ordered ONE (16:25)
[2019-06-13] MEDS ORDERED: LIDOCAINE 2% INJ 100 MG/5 ML SDV (FOR ANES.) As Ordered ONE (16:25)
[2019-06-13] MEDS ORDERED: ROCURONIUM BROMIDE 50 MG/5 ML VIAL As Ordered ONE ×2 (16:25→18:40)
[2019-06-13] MEDS ORDERED: MIDAZOLAM INJ 2 MG/2 ML VIAL (J2250) As Ordered ONE (16:26)
[2019-06-13] MEDS ORDERED: ONDANSETRON 4MG/2ML VIAL (J2405) As Ordered ONE (16:26)
[2019-06-13] MEDS ORDERED: KETOROLAC 60 MG/2 ML VIAL (J1885) As Ordered ONE (16:26)
[2019-06-13] MEDS ORDERED: HYDROmorphone HCL 2 MG/ML 1ML VIAL (J1170) As Ordered ONE (16:26)
[2019-06-13] MEDS ORDERED: dexameTHASONE 4 MG/ML 1ML VIAL (J1100) As Ordered ONE (16:26)
[2019-06-13] MEDS ORDERED: ESMOLOL INJ 100MG/10ML VIAL As Ordered ONE (18:09)
[2019-06-13] MEDS ORDERED: SUGAMMADEX SODIUM 500 MG/5 ML VIAL (BRIDION) As Ordered ONE (18:51)
[2019-06-13] MEDS ORDERED: oxyCODONE 5MG TAB PO PRN (19:30)
[2019-06-13] MEDS ORDERED: LR 1,000 ML IV SCH (19:30)
[2019-06-13] MEDS ORDERED: IBUPROFEN 600 MG TAB PO PRN (19:30)
[2019-06-13] MEDS ORDERED: NORCO, ANEXSIA 5/325MG TABLET (HYDROcodone/ACETAMINOPHEN) PO PRN (19:30)
[2019-06-13] MEDS ORDERED: ONDANSETRON 4MG/2ML VIAL (J2405) IV PRN (19:30)
[2019-06-13 20:35] VITALS: BP 132/83
--- NOTE | 2019-06-14 08:18 | RO ---
DATE OF PROCEDURE: 06/13/2019 PREOPERATIVE DIAGNOSIS: Desire for bilateral tubal ligation by salpingectomy. POSTOPERATIVE DIAGNOSIS: Desire for bilateral tubal ligation by salpingectomy. PROCEDURE: Laparoscopic bilateral salpingectomy. SURGEON: Dr. Shruti Briones [employer]ILER [employer] WORKER: None. ANESTHESIA: General endotracheal anesthesia. BRIEF DESCRIPTION OF PROCEDURE AND FINDINGS: Serena was brought to the operating room where sufficient general endotracheal anesthesia was induced and she was prepped, draped and positioned in the usual sterile fashion and the uterine manipulator placed. Attention was then turned to the abdomen. A transverse semilunar incision was made below the umbilicus. Sharp and blunt dissection continued through the subcutaneous tissues to the level of the rectus fascia which was elevated with Eric clamps, transversely incised under direct visualization and the peritoneal cavity entered. #0 Vicryl retention sutures were placed. Then using the S retractors and direct visualization, the Alejo cannula was placed into the peritoneal cavity and secured in place with the #0 Vicryl retention sutures and CO2 insufflation then begun. After adequate CO2 insufflation, the peritoneal cavity was visualized. There were normal shiny peritoneal surfaces throughout. There were no excrescences, ascites, nor exudate. With Trendelenburg, we were able to readily visualize bilateral tubes and ovaries and clear the fimbriated end of the tubes from the bowel and other important organs and blood vessels. We then used the #45 Enseal dissector through the operative scope at the port at the umbilicus to carefully dissect the tubes, first the left and then the right, away from the tubal mesentry. We left the tubes attached at the fundus at the cornu, moving from the left to the right, carefully dissecting it away as well, then having the tubes distally disconnected, but still attached at the cornua. We then had the graspers ready, out first the right tube placing it carefully in the anterior cul-de-sac, grasping it with the grasper and removing it through the umbilical port. Then reintroduced the scope and with the Enseal the left tube, placed it in the anterior cul-de-sac, used the long grasper to then grasp it and remove it also through the umbilical port. Both tubes were sent for pathological evaluation of course. Photographs were taken to document the progress of the case and to document the good hemostasis after the removal of both fallopian tubes and the normal abdominal peritoneal cavity contents. The procedure was then ended with the CO2 allowed to escape the abdomen, the instruments removed, the fascial wound closed at the umbilicus with the #0 retention suture and then #3-0 Vicryl in a subcuticular stitch used at the skin. Good hemostasis and approximation were achieved at both layers and a dry sterile dressing was then applied. Of course, the uterine manipulator and tenaculum were removed prior to the completion of the case. Estimated blood loss for the procedure was approximately 5 mL. Fluid replacement was crystalloid. Complications: None. Condition and Disposition: Serena tolerated the procedure well and was recovering in the recovery room in good condition.
== END 2019-06-13 21:00 | disposition home or self-care (01) ==
LOC: M SDC 12:14
PROVIDERS: ATTEND Obstetrics & Gynecology
DX: Z30.2 Encounter for sterilization (principal); E03.9 Hypothyroidism, unspecified; D64.9 Anemia, unspecified; Z91.040 Latex allergy status; Z91.041 Radiographic dye allergy status; Z79.899 Other long term (current) drug therapy; Z85.71 Personal history of Hodgkin lymphoma; Z92.3 Personal history of irradiation; Z92.21 Personal history of antineoplastic chemotherapy
CPT/HCPCS: 58661; 81025; 88302; J1100; J1170; J1885; J2250; J2405

== ENCOUNTER 2019-06-21 16:43 | Emergency (ER) | payer MEDICAID ==
[~2019-06-21 16:43] MED LIST changes: -LR 1,000 ML IV ONE; -fentaNYL 250 MCG/5 ML INJECTION (J3010) As Ordered ONE; -propofoL 200 MG/20 ML VIAL As Ordered ONE
[2019-06-21 18:30] VITALS: BP 128/96
== END 2019-06-21 18:30 | disposition home or self-care (01) ==
LOC: EDBD 16:43 → M ED 16:43
DX: F44.5 Conversion disorder with seizures or convulsions (principal); S30.1XXA Contusion of abdominal wall, initial encounter; X58.XXXA Exposure to other specified factors, initial encounter; Y92.234 Operating room of hospital as the place of occurrence of the external cause; Z98.890 Other specified postprocedural states; E07.9 Disorder of thyroid, unspecified; J45.909 Unspecified asthma, uncomplicated; C81.90 Hodgkin lymphoma, unspecified, unspecified site; I73.00 Raynaud's syndrome without gangrene; F95.9 Tic disorder, unspecified; Z91.040 Latex allergy status; Z91.041 Radiographic dye allergy status; Z88.4 Allergy status to anesthetic agent; Z79.899 Other long term (current) drug therapy; Z79.51 Long term (current) use of inhaled steroids

== ENCOUNTER 2019-07-23 06:10 | Inpatient (IN) | payer MEDICAID ==
[~2019-07-23] VITALS: Ht 162.6 cm; Wt 79.4 kg
[2019-07-23] MEDS ORDERED: levETIRAcetam 250MG TABLET (KEPPRA) PO ONE (06:45)
[2019-07-23] MEDS ORDERED: lamoTRIgine 100MG TAB PO ONE (06:45)
[2019-07-23 07:48] LABS: ALT/SGPT 16 U/L (12-78); BILIRUBIN,TOTAL 0.4 MG/DL (0.2-1.0); BLOOD UREA NITROGEN 12 MG/DL (7-18); CALCIUM LEVEL 8.9 MG/DL (8.5-10.1); CARBON DIOXIDE LEVEL 26 MEQ/L (21-32); CHLORIDE LEVEL 109 MEQ/L (98-107); CREATININE FOR GFR 0.89 MG/DL (0.55-1.30); GLOMERULAR FILTRATION RATE > 60.0 (>60); GLUCOSE, FASTING 88 MG/DL (70-100); POTASSIUM SERUM 3.6 MEQ/L (3.5-5.1); SODIUM LEVEL 140 MEQ/L (136-145); TOTAL PROTEIN 7.2 GM/DL (6.4-8.2)
[2019-07-23] MEDS ORDERED: ACETAMINOPHEN 500 MG TAB PO ONE (08:00)
[2019-07-23 09:42] LABS: AMORPHOUS SEDIMENT LARGE (NEGATIVE); APPEARANCE, URINE TURBID (CLEAR); BACTERIA, URINE AUTO NEGATIVE (NEGATIVE); BILIRUBIN, URINE AUTO NEGATIVE (NEGATIVE); BLOOD, URINE BLOOD NEGATIVE (NEGATIVE); COLOR, URINE YELLOW (YELLOW); GLUCOSE, URINE (UA) AUTO NEGATIVE (NEGATIVE); KETONE, URINE AUTO TRACE mg/dL (NEGATIVE); LEUKOCYTE ESTERASE, URINE AUTO NEGATIVE (NEGATIVE); MUCUS, URINE SMALL (NEGATIVE); NITRITE, URINE AUTO NEGATIVE (NEGATIVE); PROTEIN, URINE AUTO NEGATIVE (NEGATIVE); RBC, URINE AUTO 1 /HPF (0-3); SPECIFIC GRAVITY URINE AUTO 1.016 (1.002-1.035); SQUAMOUS EPITHELIAL CELL UR AU 3 /HPF (0-6); UROBILINOGEN, URINE AUTO 0.2 mg/dL (0.0-2.0); WBC, URINE AUTO 3 /HPF (0-3)
[2019-07-23] MEDS ORDERED: KETOROLAC 30 MG/ML VIAL (J1885) IV ONE (10:15)
[2019-07-23 10:32] LABS: AMPHETAMINES LEVEL URINE NEGATIVE (NEGATIVE); BARBITURATES URINE NEGATIVE (NEGATIVE); BENZODIAZEPINES URINE NEGATIVE (NEGATIVE); CANNABINOIDS URINE NEGATIVE (NEGATIVE); COCAINE METABOLITE URINE NEGATIVE (NEGATIVE); METHADONE URINE NEGATIVE (NEGATIVE); OPIATES URINE NEGATIVE (NEGATIVE); PHENCYCLIDINE URINE NEGATIVE (NEGATIVE)
[2019-07-23] MEDS ORDERED: NS 1,000 ML IV ONE (11:15)
[2019-07-23] MEDS ORDERED: LEVO175T19 PO (11:23)
[2019-07-23] MEDS ORDERED: AMIT25TA PO (11:23)
[2019-07-23 11:55] LABS: HEMATOCRIT 40.6 % (36.0-47.0); HEMOGLOBIN 13.3 g/dl (12.0-15.5); MEAN CORPUSCULAR HEMOGLOBIN 28.4 pg (27.0-33.0); MEAN CORPUSCULAR HGB CONC 32.8 g/dl (32.0-36.5); MEAN CORPUSCULAR VOLUME 86.8 fl (80.0-96.0); PLATELET COUNT, AUTOMATED 225 10^3/uL (150-450); RED BLOOD COUNT 4.68 10^6/uL (4.00-5.40); WHITE BLOOD COUNT 4.4 10^3/uL (4.0-10.0)
[2019-07-23 12:18] LABS: INR 1.03; PROTHROMBIN TIME 13.3 SECONDS (11.8-14.0)
[2019-07-23] MEDS ORDERED: ALBUTEROL 90 MCG/ACT 8GM HFA INHALER INH PRN (12:30)
[2019-07-23 12:45] VITALS: BP 123/76
--- NOTE | 2019-07-23 13:05 | HPEPDOC ---
[facility] Medical History & Physical Date of Admission Jul 23, 2019 Date of Service: Jul 23, 2019 Primary Care Physician: JOY SHANE MD Attending Physician: Dali Velasco MD History and Physical CHIEF COMPLAINT: Seizure HISTORY OF PRESENT ILLNESS: The patient is a 29-year-old female with a past medical history of epileptic and nonepileptic psychogenic seizures, Hodgkin's lymphoma status post chemotherapy, radiation and bone marrow transplant, history of brain cyst, asthma who presented to the emergency room after having had a witnessed seizure by her boyfriend/caregiver. The patient's caregiver was not present at the bedside and information was passed on also by the ER team. Early this morning at approximately 5 AM the patient "felt weird" and alerted her boyfriend. She stated that she felt lightheaded, dizzy and had some shortness of breath prior to this feeling. She denies any chest pain, fevers, chills, cough, recent illnesses. She denies any recent modifications in her medications and takes gabapentin, Keppra and Lamictal consistently. After feeling "weird", the patient states initially she loss consciousness and later woke up to EMS at her house. She had told the emergency room that she remembered the complete event but later told me that she only remembers portions of her loss of consciousness. She had a seizure for an unknown amount of time and as stated, when she woke up the patient was slightly confused. It was noted that after the event she was not able to feel her legs and started staring off into space with some limb shaking according to witnesses. There was no tongue biting, loss of bowel or bladder but it was noted that she was shaking much like when she has had grand mal seizures in the past. The patient states she was resting in bed when her seizure occurred. In the emergency room, vital signs showed a pulse of 107, but pressure 124/72, respiratory rate 16, 97% on room air. She was afebrile. On initial examination by the ER provider the patient had 4 out of 5 strength in all extremities. Labs are unremarkable, lamotrigine and Keppra levels were sent and are pending. CT of the head no acute findings. Her neurologist at [facility] was contacted by the ER providers here. Her neurologist suggested no new medication changes at this time. When the patient was stood up to be assessed by physical therapy in the emergency room, the patient was weak and could not stand. According to the emergency room physicians she has a history of pseudoseizures, nonepileptic psychogenic seizures. The patient was admitted under inpatient status for acute inability to ambulate, lower extremity weakness. REVIEW OF SYSTEMS: CONSTITUTIONAL: Denies unexplained weight gain or weight loss, fever, night sweats EYES: Denies eye drainage, eye pain, visual changes, dry/irritated eye EARS, NOSE, MOUTH, THROAT: Denies difficulty hearing, ringing in ears, mouth sores, loose teeth, sore throat, facial numbness or pain NECK: Denies swollen glands CARDIOVASCULAR: Denies irregular heartbeat, racing heart, chest pains, swelling of feet or legs, pain in legs with walking RESPIRATORY: Denies night sweats, wheezing, sputum production, oxygen at home, coughing up blood, cough lasting > 1 month GASTROINTESTINAL: Denies abdominal pain, constipation, bloody stool, diarrhea, heartburn, nausea, vomiting GENITOURINARY: Denies painful urination, bloody urine, frequent urination, urgency, leaking urine, impotence MUSCULOSKELETAL: Denies joint pain, muscle pain, leg swelling INTEGUMENTARY: Denies rash, itching, new skin lesion, change in existing skin lesion, hair loss or increase, breast changes. NEUROLOGICAL: Denies headaches PSYCHIATRIC: Denies depression, anxiety, recurrent bad thoughts, mood swings, hallucinations PAST MEDICAL HISTORY: 1. Grand mal/focal seizures 2. Pseudoseizures 3. Hodgkin's lymphoma s/p chemo, radiation, bone marrow transplant 2011 4. brain cyst 5. Asthma 6. Hypoglycemia history 7. Hypothyroidism 8. diverticular disease 9. Raynaud's phenomenon PAST SURGICAL HISTORY: 1. Bone marrow transplants 2011 2. Pericardial window 3. Neck tumor removal 4. tympanostomy placement and later removed 5. Adenoid removal 6. Fallopian tubes tied 7. Chest port 2 placed, later removed due to infection 8. PICC line 2 placed, later removed 9. LN resection FAMILY HISTORY: Father: Grand mal seizures, stroke. Alive. Mother: Uterine cancer. Alive. Paternal aunt: Hodgkin's lymphoma. at 16 y/o. Paternal grandmother: HLD, stroke, hypertension. at 85 years old SOCIAL HISTORY: Patient denies alcohol, smoking or drug use history. She lives in the local area with her boyfriend/caregiver. Her PCP is Dr. Shane, neurologist is at [facility], oncologist is also in [place]. She has a healthcare proxy. ALLERGIES: Please see below. HOME MEDICATIONS: Please see below. PHYSICAL EXAMINATION: CONSTITUTIONAL: No acute distress, resting comfortably, AAO x 3 EYES: PERRLA, EOM intact HENT, MOUTH: Normocephalic, atraumatic, moist mucous membranes, NECK: SUPPLE, no JVD, no lymphadenopathy, no carotid bruit CV: Regular rate and rhythm, S1S2 normal, no murmurs/rubs/gallops RESPIRATORY: Clear to auscultation bilaterally, no rales/rhonchi/wheezes GI: BS positive in 4 quadrants, soft, nontender, nondistended, no rebound or guarding, no organomegaly : Deferred MUSCULOSKELETAL: Normal ROM. No cyanosis, clubbing, swelling, joint deformity, extremity edema. Pulses strong and present in all extremities. INTEGUMENTARY: Intact, no rashes, no lesions, no erythema NEUROLOGIC: Strength 1/5 bilateral lower ext, no sensory deficits. Strength 5/5 in upper ext. Cranial Nerves II-XII are intact PSYCHIATRIC: Affect flat LABORATORY DATA: Please see below IMAGING: CT head without contrast: Neg for acute findings. ASSESSMENT: 29 y/o F admitted under inpatient status for acute inability to ambulate, lower extremity weakness s/p seizure. PLAN: 1. Inability to ambulate. R/o transient weakness s/p seizure. CT had neg. Neuro checks Q4hrs. F/u PT/OT in the AM, consider MRI and neuro consult if patient does not improve. 2. Seizure, grand mal. Hx of focal, grand mal and pseudo seizures. Witnessed by caregiver. Her neurologist was contacted and recommended to c/w current regiment. Lamotrigine and keppra levels pending. Resume home medications without modifications. Seizure precautions. 3. Tachycardia. Unlikely infection, pain but perhaps anxiety or dehydration. C/w fluids at 100 cc/hr. Monitor on tele. 4. Asthma. Stable and on RA. C/w home meds. 5. Hypothyroidism. C/w home levothyroxine. 6. DVT px. Enoxaparin SC daily. DISPOSITION: Admitted under inpatient status. Plan is to discharge home when medically improved. Vital Signs Vital Signs Date Time Temp Pulse Resp B/P (MAP) Pulse Ox O2 Delivery O2 Flow Rate FiO2 07/23/19 12:27 98.8 98 18 131/78 (95) 99 Room Air Laboratory Data Labs 24H Laboratory Tests 2 07/23/19 07:10: Nucleated Red Blood Cells % (auto) 0.0, Urine Color YELLOW, Urine Appearance TURBIDH, Urine pH 7.0, Urine Specific Kimball 1.016, Urine Protein NEGATIVE, Urine Glucose (Auto)(UA) NEGATIVE, Urine Ketones (Auto) TRACEH, Urine Blood NEGATIVE, Urine Nitrite NEGATIVE, Urine Bilirubin NEGATIVE, Urine Urobilinogen 0.2, Urine Leukocyte Esterase (Auto) NEGATIVE, Urine WBC (Auto) 3, Urine RBC (Auto) 1, Urine Hyaline Casts (Auto) 0, Urine Bacteria (Auto) NEGATIVE, Urine Squamous Epithelial Cells 3, Urine Amorphous Sediment (Auto) LARGEH, Urine Mucus (Auto) SMALL, Urine Sperm (Auto) , Anion Gap 5L, Glomerular Filtration Rate > 60.0, Calcium Level 8.9, Total Bilirubin 0.4, Aspartate Amino Transf (AST/SGOT) 11, Alanine Aminotransferase (ALT/SGPT) 16, Alkaline Phosphatase 61, Total Prote in 7.2, Albumin 4.0, Albumin/Globulin Ratio 1.25 07/23/19 07:11: Urine Opiates Screen NEGATIVE, Urine Methadone Screen NEGATIVE, Urine Barbiturates Screen NEGATIVE, Urine Phencyclidine Screen NEGATIVE, Urine Amphetamines Screen NEGATIVE, Urine Benzodiazepines Screen NEGATIVE, Urine Cocaine Metabolite Screen NEGATIVE, Urine Cannabinoids Screen NEGATIVE 07/23/19 10:23: 07/23/19 11:58: Prothrombin Time 13.3, Prothromb Time International Ratio 1.03 CBC/BMP Laboratory Tests 07/23/19 07:10 Home Medications Scheduled Amitriptyline HCl (Amitriptyline HCl) 25 Mg Tablet, 25 MG PO BID Budesonide/Formoterol (Symbicort 160-4.5 Mcg Inhaler) 60 Puff/Inhaler Aers, 2 PUFF INH BID Gabapentin (Gabapentin) 100 Mg Capsule, 100 MG PO BID Lamotrigine (Lamictal) 200 Mg Tab, 200 MG PO BID Levetiracetam (Keppra) 750 Mg Tablet, 750 MG PO BID Levothyroxine Sodium (Levoxyl) 175 Mcg Tablet, 175 MCG PO DAILY Scheduled PRN Albuterol Sulfate (Proair Hfa) 8.5 Gm Hfa.aer.ad, 2 PUFF INH Q6H PRN for SOB/WHEEZING Allergies Coded Allergies: Iodinated Contrast Media (Verified Allergy, Severe, STOPS BREATHING, 06/11/19) latex (Verified Allergy, Severe, " everything reacts" , 06/11/19) fentanyl (Verified Allergy, Intermediate, hives, 06/11/19) A-FIB/CHADSVASC A-FIB History Current/History of A-Fib/PAF?: No Current PO Anticoag Therapy: No Age/Risk Factor Scoring CHADSVASC: CHADSVASC Response (Comments) Value Age Risk Factor Age < 65 years old 0 Gender Risk Factor Female 1 Hx of CHF No 0 Hx of HTN No 0 Hx of Stroke/TIA/or VTE No 0 Hx of Diabetes No 0 Hx of Vascular Disease No 0 Total 1 Treatment Treatment ordered: Other Other anticoagulant ordered: enoxparin Dali Velasco MD Jul 23, 2019 13:05
[2019-07-23] MEDS: SYMBICORT 160/4.5MCG INHALER 6GM INH SCH ×2 (13:30→20:01)
--- NOTE | 2019-07-23 14:04 | REP ---
Head CT without contrast: History: Seizure. Lower extremity weakness. Comparison study: The most recent comparison head CT study is from January 25, 2019. CT findings: Bone window settings demonstrate an intact bony calvarium. There is no evidence of skull fracture or incidental bony calvarial lesion. The visualized paranasal sinuses appear clear. No intraorbital abnormality is seen. On soft tissue window setting images; the lateral, third, and fourth ventricles are normal in size and position. Dorado-white differentiation pattern is normal above and below the tentorium. There are is no evidence of intracranial hemorrhage. No mass, edema, infarction, or midline shift is seen. No extra-axial fluid collection is appreciated. Impression: Negative noncontrast head CT. Electronically Signed by Luke Ramesh MD 07/23/2019 01:55 P
[2019-07-23] MEDS: AMITRIPTYLINE 25 MG TAB PO SCH ×2 (14:57→20:38)
[2019-07-23] MEDS: GABAPENTIN 100 MG CAP PO SCH ×2 (14:57→20:38)
[2019-07-23] MEDS: ENOXAPARIN 40 MG/0.4 ML SYRINGE (J1650) SC SCH (14:58)
[2019-07-23] MEDS: NS 1,000 ML IV SCH (16:42)
[2019-07-23] MEDS: levETIRAcetam 250MG TABLET (KEPPRA) PO SCH (20:38)
[2019-07-23] MEDS: lamoTRIgine 100MG TAB PO SCH (20:38)
[2019-07-23 22:00] VITALS: BP 124/76
[2019-07-24] VITALS (7 sets, daily range): BP systolic 122–129; BP diastolic 75–82
[2019-07-24] MEDS: NS 1,000 ML IV SCH (00:56)
[2019-07-24] MEDS: metroNIDAZOLE (FLAGYL) 500 MG TAB PO SCH ×3 (00:56→20:43)
[2019-07-24] MEDS: LEVOTHYROXINE 75MCG TABLET (0.075MG) PO SCH (05:59)
[2019-07-24] MEDS: ACETAMINOPHEN TAB 650MG DOSE (2X325MG) PO PRN ×2 (05:59→16:13)
[2019-07-24] MEDS: LEVOTHYROXINE 100MCG TABLET (0.1MG) PO SCH (05:59)
[2019-07-24 06:02] LABS: BASO % 0.5 % (0.0-1.0); HEMOGLOBIN 11.6 g/dl (12.0-15.5); LYMPH # 1.7 10^3/uL (1.5-5.0); MEAN CORPUSCULAR HEMOGLOBIN 28.4 pg (27.0-33.0); MEAN CORPUSCULAR HGB CONC 32.2 g/dl (32.0-36.5); MONO # 0.4 10^3/uL (0.0-0.8); MONO % 8.4 % (0.0-5.0); NEUTROPHILS # 2.1 10^3/uL (1.5-8.5); NEUTROPHILS % 49.9 % (36.0-66.0); PLATELET COUNT, AUTOMATED 174 10^3/uL (150-450); RED BLOOD COUNT 4.09 10^6/uL (4.00-5.40); WHITE BLOOD COUNT 4.2 10^3/uL (4.0-10.0)
[2019-07-24] MEDS ORDERED: LORazepam 2 MG/ML VIAL (J2060) IV STA ×2 (06:07→06:12)
[2019-07-24] MEDS ORDERED: LORazepam 2 MG/ML VIAL (J2060) As Ordered ONE (06:08)
[2019-07-24 06:20] LABS: ALBUMIN 3.2 GM/DL (3.2-5.2); ALT/SGPT 14 U/L (12-78); BILIRUBIN,TOTAL 0.3 MG/DL (0.2-1.0); BLOOD UREA NITROGEN 10 MG/DL (7-18); CARBON DIOXIDE LEVEL 25 MEQ/L (21-32); CHLORIDE LEVEL 113 MEQ/L (98-107); CREATININE FOR GFR 0.91 MG/DL (0.55-1.30); GLOMERULAR FILTRATION RATE > 60.0 (>60); GLUCOSE, FASTING 92 MG/DL (70-100); SODIUM LEVEL 143 MEQ/L (136-145)
--- NOTE | 2019-07-24 07:06 | IPNPDOC ---
Text Note Date of Service The patient was seen on 07/24/19. NOTE Rapid assessment was called about 603AM for possible seizure Per d/w the patient's RN Chinmay she was feeling weak earlier on in the morning just prior to having seizure like activity. T 98.5 / HR 150 / BP 144/117 / O2 sat 100% HEENT:pupils dilated and sluggish / unresponsive/ having seizure like activity glucose 80 Plan: transfer to PCU / ativan 2mg / per d/w f/u prolactin / I will ask to touch base with later on today after her AM assessment to discuss weather MRI brain w zoran, MRI cervical and thoracic spine are necessary CC time 30 min VS,Kala, I+O VS, Antonioe, I+O Laboratory Tests 07/23/19 07:10 07/24/19 05:22 Vital Signs Date Time Temp Pulse Resp B/P (MAP) Pulse Ox O2 Delivery O2 Flow Rate FiO2 07/24/19 06:23 98.8 122 18 129/76 (93) 100 Room Air I&O- Last 24 Hours up to 6 AM 07/24/19 05:59 Intake Total 1260 ml Output Total 1000 ml Balance 260 ml SEPIDEH ANSARI MD Jul 24, 2019 07:06
[2019-07-24] MEDS: SYMBICORT 160/4.5MCG INHALER 6GM INH SCH ×2 (07:34→19:56)
[2019-07-24] MEDS: AMITRIPTYLINE 25 MG TAB PO SCH ×2 (08:26→20:43)
[2019-07-24] MEDS: lamoTRIgine 100MG TAB PO SCH ×2 (08:26→20:43)
[2019-07-24] MEDS: ENOXAPARIN 40 MG/0.4 ML SYRINGE (J1650) SC SCH (08:26)
[2019-07-24] MEDS: GABAPENTIN 100 MG CAP PO SCH ×2 (08:27→20:43)
[2019-07-24] MEDS: levETIRAcetam 250MG TABLET (KEPPRA) PO SCH ×2 (08:27→20:43)
[2019-07-24] MEDS ORDERED: SLF 3 ML SYR IV PRN (09:00)
[2019-07-24 09:11] LABS: PROLACTIN 16.4 NG/ML
[2019-07-24] MEDS: SLF 3 ML SYR IV SCH ×2 (14:13→20:44)
--- NOTE | 2019-07-24 14:34 | IPNPDOC ---
Date Seen The patient was seen on 07/24/19. Progress Note SUBJECTIVE: Patient had a witnessed seizure this AM, VS showed T 98.5 / HR 150 / BP 144/117 / O2 sat 100%. Pupils were noted to be dilated and sluggish, patient unresponsive with glucose 80. No tongue biting, loss of bowel or bladder was recorded. She was given 2 mg ativan, lasted <1.5 minutes. Case was disucssed with Dr. Mckeon, neurology who asked to be updated later in the day today. Prolactin was normal. Patient is groggy this AM, pupils 3 mm bilaterally and responsive to light. She denies shortness of breath, n/v/d, fevers or chills. OBJECTIVE: VITAL SIGNS: Please see below PHYSICAL EXAMINATION: CONSTITUTIONAL: No acute distress, resting comfortably, AAO x 3 EYES: PERRLA, EOM intact HENT, MOUTH: Normocephalic, atraumatic, moist mucous membranes, NECK: SUPPLE, no JVD, no lymphadenopathy, no carotid bruit CV: Regular rate and rhythm, S1S2 normal, no murmurs/rubs/gallops RESPIRATORY: Clear to auscultation bilaterally, no rales/rhonchi/wheezes GI: BS positive in 4 quadrants, soft, nontender, nondistended, no rebound or guarding, no organomegaly : Deferred MUSCULOSKELETAL: Normal ROM. No cyanosis, clubbing, swelling, joint deformity, extremity edema. Pulses strong and present in all extremities. INTEGUMENTARY: Intact, no rashes, no lesions, no erythema NEUROLOGIC: Strength still 1/5 bilateral lower ext, no sensory deficits. Strength 3/5 in upper ext- worse than on admission. Cranial Nerves II-XII are intact PSYCHIATRIC: Affect flat LABORATORY DATA: Please see below IMAGING: No new imaging. ASSESSMENT: 29 y/o F admitted under inpatient status for lower extremity weakness s/p seizure, acute inability to ambulate. PLAN: 1. Seizure. One episode since admission. Hx of focal, grand mal and pseudoseizures. Will discuss further with neurologist application processor. Lamotrigine and keppra levels pending. Resume home medications without modifications. Seizure precautions. 2. Inability to ambulate. R/o transient weakness s/p seizure vs. other neurological cause. Neuro checks Q4hrs show continued weakness, PT/OT could not work with patient today as she could not stand. Will f/u with neuro to discuss MRI brain, other testing and suggestions. 3. Tachycardia. UA neg, afebrile, unlikely infection, pain but perhaps anxiety. D/nyla fluids as patient is no longer dehydrated. Monitor on tele. Consider cards consult. 4. Asthma. Stable and on RA. C/w home meds. 5. Hypothyroidism. C/w home levothyroxine. 6. DVT px. Enoxaparin SC daily. DISPOSITION: Admitted under inpatient status. Plan is to discharge home when medically improved. VS, I&O, 24H, Fishbone Vital Signs/I&O Vital Signs Date Time Temp Pulse Resp B/P (MAP) Pulse Ox O2 Delivery O2 Flow Rate FiO2 07/24/19 12:00 97.6 117 16 123/79 (94) 100 Room Air I&O- Last 24 Hours up to 6 AM 07/24/19 06:00 Intake Total 2540 ml Output Total 1275 ml Balance 1265 ml Laboratory Data 24H LABS Laboratory Tests 2 07/24/19 05:22: Immature Granulocyte % (Auto) 0.2, Neutrophils (%) (Auto) 49.9, Lymphocytes (%) (Auto) 40.0, Monocytes (%) (Auto) 8.4H, Eosinophils (%) (Auto) 1.0, Basophils (%) (Auto) 0.5, Neutrophils # (Auto) 2.1, Lymphocytes # (Auto) 1.7, Monocytes # (Auto) 0.4, Eosinophils # (Auto) 0.0, Basophils # (Auto) 0.0, Nucleated Red Blood Cells % (auto) 0.0, Anion Gap 5L, Glomerular Filtration Rate > 60.0, Calcium Level 8.0L, Total Bilirubin 0.3, Aspartate Amino Transf (AST/SGOT) 9, Alanine Aminotransferase (ALT/SGPT) 14, Alkaline Phosphatase 52, Total Protein 6.0L, Albumin 3.2, Albumin/Globulin Ratio 1.14, Prolactin 16.4 07/24/19 06:12: Bedside Glucose (Misc Panel) 80 07/24/19 06:42: CBC/BMP Laboratory Tests 07/24/19 05:22 Current Medications Current Medications Medications (Trade) Dose Ordered Sig/Gianni Route PRN Reason Start Time Stop Time Status Last Admin Dose Admin Acetaminophen (Tylenol Tab) 650 mg Q4H PRN PO PAIN OR FEVER 07/23/19 11:30 07/24/19 05:59 Albuterol Sulfate (Proventil, Ventolin Hfa) 2 puff Q6HP PRN INH SHORTNESS OF BREATH 07/23/19 12:30 Amitriptyline HCl (Elavil) 25 mg BID PO 07/23/19 09:00 07/24/19 08:26 Budesonide/ Formoterol Fumarate (Symbicort 160/ 4.5mcg) 2 puff BID INH 07/23/19 09:00 07/24/19 07:34 Enoxaparin Sodium (Lovenox) 40 mg DAILY SC 07/23/19 09:00 07/24/19 08:26 Gabapentin (Neurontin) 100 mg BID PO 07/23/19 09:00 07/24/19 08:27 Home Med (Med Rec Complete!) ASDIRECTED XX 07/23/19 11:30 07/23/19 11:25 DC Lamotrigine (LaMICtal) 200 mg BID PO 07/23/19 21:00 07/24/19 08:26 Levetiracetam (Keppra) 750 mg BID PO 07/23/19 21:00 07/24/19 08:27 Levothyroxine Sodium (Synthroid) 75 mcg DAILY@06 PO 07/24/19 06:00 07/24/19 05:59 Levothyroxine Sodium (Synthroid) 100 mcg DAILY@06 PO 07/24/19 06:00 07/24/19 05:59 Lorazepam (Ativan) 2 mg STAT STAT IV 07/24/19 06:07 07/24/19 06:08 DC 07/24/19 06:11 Lorazepam (Ativan) 2 mg STAT STAT IV 07/24/19 06:12 07/24/19 06:15 DC Metronidazole (Flagyl) 500 mg BID PO 07/23/19 21:00 07/31/19 20:59 07/24/19 08:26 Sodium Chloride 1,000 ml @ 100 mls/hr Q10H IV 07/23/19 16:00 07/24/19 08:26 DC 07/24/19 00:56 Sodium Chloride (Saline Lock Flush) 2 ml ASDIRECTED PRN IV SEE LABEL COMMENTS 07/24/19 09:00 Sodium Chloride (Saline Lock Flush) 2 ml SLF IV 07/24/19 14:00 07/24/19 14:13 Allergies Coded Allergies: Iodinated Contrast Media (Verified Allergy, Severe, STOPS BREATHING, 06/11/19) latex (Verified Allergy, Severe, " everything reacts" , 06/11/19) fentanyl (Verified Allergy, Intermediate, hives, 06/11/19) Dali Velasco MD Jul 24, 2019 14:34
[2019-07-25] VITALS (7 sets, daily range): BP systolic 112–137; BP diastolic 64–81
[2019-07-25] MEDS: LEVOTHYROXINE 75MCG TABLET (0.075MG) PO SCH (06:00)
[2019-07-25] MEDS: LEVOTHYROXINE 100MCG TABLET (0.1MG) PO SCH (06:00)
[2019-07-25] MEDS ORDERED: LORazepam 2 MG/ML VIAL (J2060) As Ordered ONE (06:14)
[2019-07-25] MEDS ORDERED: LORazepam 2 MG/ML VIAL (J2060) IV STA (06:30)
--- NOTE | 2019-07-25 06:30 | IPNPDOC ---
Date Seen The patient was seen on 07/25/19. Progress Note I was called at bedside at 0601 for the patient had a witnessed seizures 1.5 minutes, when I came to see the patient, she was laying her right side with dilated pupils. She was unable to communicate where is she began to have another seizure in front of me. She clamped down on her jaw, would not follow commends. ativan 2mgx1 was ordered. There was no tongue biting documented. After reviewing, this possible pseudoseizures with secondary gain for the ativan so no more ativan will be given. VS, I&O, 24H, Fishbone Vital Signs/I&O Vital Signs Date Time Temp Pulse Resp B/P (MAP) Pulse Ox O2 Delivery O2 Flow Rate FiO2 07/25/19 04:00 97.8 97 16 127/77 (94) 98 Room Air I&O- Last 24 Hours up to 6 AM 07/25/19 06:00 Intake Total 1340 ml Output Total 1700 ml Balance -360 ml Laboratory Data 24H LABS Laboratory Tests 2 07/24/19 06:42: KENTON FIELDS DO Jul 25, 2019 06:30
[2019-07-25] MEDS: SLF 3 ML SYR IV SCH ×3 (06:40→20:58)
[2019-07-25] MEDS ORDERED: LORazepam 2 MG/ML VIAL (J2060) IV PRN (06:45)
[2019-07-25 06:57] LABS: BASO % 0.4 % (0.0-1.0); EOS # 0.1 10^3/uL (0.0-0.5); HEMOGLOBIN 12.5 g/dl (12.0-15.5); LYMPH # 2.1 10^3/uL (1.5-5.0); LYMPH % 41.5 % (24.0-44.0); MEAN CORPUSCULAR HEMOGLOBIN 28.2 pg (27.0-33.0); MEAN CORPUSCULAR HGB CONC 32.1 g/dl (32.0-36.5); MEAN CORPUSCULAR VOLUME 87.8 fl (80.0-96.0); MONO # 0.4 10^3/uL (0.0-0.8); MONO % 7.5 % (0.0-5.0); NEUTROPHILS # 2.4 10^3/uL (1.5-8.5); NEUTROPHILS % 49.4 % (36.0-66.0); PLATELET COUNT, AUTOMATED 199 10^3/uL (150-450); RED BLOOD COUNT 4.44 10^6/uL (4.00-5.40); WHITE BLOOD COUNT 4.9 10^3/uL (4.0-10.0)
[2019-07-25 07:21] LABS: ALBUMIN 3.6 GM/DL (3.2-5.2); ALT/SGPT 14 U/L (12-78); BILIRUBIN,TOTAL 0.2 MG/DL (0.2-1.0); BLOOD UREA NITROGEN 8 MG/DL (7-18); CALCIUM LEVEL 8.5 MG/DL (8.5-10.1); CARBON DIOXIDE LEVEL 25 MEQ/L (21-32); CHLORIDE LEVEL 108 MEQ/L (98-107); CREATININE FOR GFR 0.96 MG/DL (0.55-1.30); GLOMERULAR FILTRATION RATE > 60.0 (>60); GLUCOSE, FASTING 89 MG/DL (70-100); POTASSIUM SERUM 4.1 MEQ/L (3.5-5.1); SODIUM LEVEL 141 MEQ/L (136-145)
[2019-07-25 07:35] LABS: LAMOTRIGINE (LAMICTAL) 7.9 ug/mL (2.0-20.0); LEVETIRACETAM (KEPPRA) 27.1 ug/mL (10.0-40.0)
[2019-07-25] MEDS: SYMBICORT 160/4.5MCG INHALER 6GM INH SCH ×2 (07:42→20:41)
[2019-07-25] MEDS: GABAPENTIN 100 MG CAP PO SCH ×2 (09:07→20:58)
[2019-07-25] MEDS: lamoTRIgine 100MG TAB PO SCH ×2 (09:08→20:58)
[2019-07-25] MEDS: metroNIDAZOLE (FLAGYL) 500 MG TAB PO SCH ×2 (09:08→20:58)
[2019-07-25] MEDS: AMITRIPTYLINE 25 MG TAB PO SCH ×2 (09:08→20:58)
[2019-07-25] MEDS: levETIRAcetam 250MG TABLET (KEPPRA) PO SCH ×2 (09:08→20:58)
[2019-07-25] MEDS: ENOXAPARIN 40 MG/0.4 ML SYRINGE (J1650) SC SCH (09:09)
--- NOTE | 2019-07-25 20:48 | IPNPDOC ---
Date Seen The patient was seen on 07/25/19. Progress Note SUBJECTIVE: The patient had several seizures this AM, one lasting 1.5 minutes. Pupils were dilated and she was, similarly to the morning prior, unable to communicate. Her second seizure was noted for her clamping down on her jaw and was not following commands. On 07/24/19 when her seizure occurred, prolactin was ordered. This level came back normal, little Motrin gene normal, Keppra normal. Her case was again discussed with Dr. Berger, neurology. 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 She's had multiple EEGs, MRIs that did not show seizure activity. At this time neurology does not believe her seizures to be epileptic in nature. When the patient was evaluated, she was lethargic and did not participate with physical examination. She denies chest pain, shortness of breath. OBJECTIVE: VITAL SIGNS: Please see below PHYSICAL EXAMINATION: CONSTITUTIONAL: No acute distress, resting comfortably, AAO x 3 EYES: PERRLA, EOM intact HENT, MOUTH: Normocephalic, atraumatic, moist mucous membranes, NECK: SUPPLE, no JVD, no lymphadenopathy, no carotid bruit CV: Regular rate and rhythm, S1S2 normal, no murmurs/rubs/gallops RESPIRATORY: Clear to auscultation bilaterally, no rales/rhonchi/wheezes GI: BS positive in 4 quadrants, soft, nontender, nondistended, no rebound or guarding, no organomegaly : Deferred MUSCULOSKELETAL: Normal ROM. No cyanosis, clubbing, swelling, joint deformity, extremity edema. Pulses strong and present in all extremities. INTEGUMENTARY: Intact, no rashes, no lesions, no erythema NEUROLOGIC: Strength still 0/5 bilateral lower ext, no sensory deficits. Strength 3/5 in upper ext- worse than on admission. Cranial Nerves II-XII are intact PSYCHIATRIC: Affect flat LABORATORY DATA: Please see below IMAGING: No new imaging. ASSESSMENT: 29 y/o F admitted under inpatient status for seizure activity, r/o pseudoseizures with inability to ambulate. PLAN: 1. Seizure activity. Likely pseudoseizure and presence of functional neurol ogical disorder. Prolactin wnl, keppra and lamotrigine levels were wnl. Likely not an epileptic seizure; however, will do MRI brain, thoracic and cervical spine to see if new changes are seen. Discussed this with neurology who does not see a problem with this; however, feel if this workup is normal or unchanged from prior, then would suggest psychiatry consult . They are not recommending an LP or further treatment at this time. C/w lamotrigine, keppra, seizure precautions. 2. Inability to ambulate. Please see plan under prob #1. She is not participating with PT/OT. 3. Sinus tachycardia. Likely her baseline. Monitor on tele. 4. Asthma. Stable and on RA. C/w home meds. 5. Hypothyroidism. C/w home levothyroxine. 6. DVT px. Enoxaparin SC daily. DISPOSITION: Admitted under inpatient status. May require psych consult if workup above is normal. VS, I&O, 24H, Fishbone Vital Signs/I&O Vital Signs Date Time Temp Pulse Resp B/P (MAP) Pulse Ox O2 Delivery O2 Flow Rate FiO2 07/25/19 16:00 98.4 116 20 112/64 (80) 96 Room Air I&O- Last 24 Hours up to 6 AM 07/25/19 06:00 Intake Total 1340 ml Output Total 2350 ml Balance -1010 ml Laboratory Data 24H LABS Laboratory Tests 2 07/25/19 06:36: Immature Granulocyte % (Auto) 0.2, Neutrophils (%) (Auto) 49.4, Lymphocytes (%) (Auto) 41.5, Monocytes (%) (Auto) 7.5H, Eosinophils (%) (Auto) 1.0, Basophils (%) (Auto) 0.4, Neutrophils # (Auto) 2.4, Lymphocytes # (Auto) 2.1, Monocytes # (Auto) 0.4, Eosinophils # (Auto) 0.1, Basophils # (Auto) 0.0, Nucleated Red Blood Cells % (auto) 0.0, Anion Gap 8, Glomerular Filtration Rate > 60.0, Calcium Level 8.5, Total Bilirubin 0.2, Aspartate Amino Transf (AST/SGOT) 11, Alanine Aminotransferase (ALT/SGPT) 14, Alkaline Phosphatase 58, Total Protein 7.0, Albumin 3.6, Albumin/Globulin Ratio 1.06 CBC/BMP Laboratory Tests 07/25/19 06:36 Current Medications Current Medications Medications (Trade) Dose Ordered Sig/Gianni Route PRN Reason Start Time Stop Time Status Last Admin Dose Admin Acetaminophen (Tylenol Tab) 650 mg Q4H PRN PO PAIN OR FEVER 07/23/19 11:30 07/24/19 16:13 Albuterol Sulfate (Proventil, Ventolin Hfa) 2 puff Q6HP PRN INH SHORTNESS OF BREATH 07/23/19 12:30 07/24/19 18:19 Amitriptyline HCl (Elavil) 25 mg BID PO 07/23/19 09:00 07/25/19 09:08 Budesonide/ Formoterol Fumarate (Symbicort 160/ 4.5mcg) 2 puff BID INH 07/23/19 09:00 07/25/19 20:41 Enoxaparin Sodium (Lovenox) 40 mg DAILY SC 07/23/19 09:00 07/25/19 09:09 Gabapentin (Neurontin) 100 mg BID PO 07/23/19 09:00 07/25/19 09:07 Home Med (Med Rec Complete!) ASDIRECTED XX 07/23/19 11:30 07/23/19 11:25 DC Lamotrigine (LaMICtal) 200 mg BID PO 07/23/19 21:00 07/25/19 09:08 Levetiracetam (Keppra) 750 mg BID PO 07/23/19 21:00 07/25/19 09:08 Levothyroxine Sodium (Synthroid) 75 mcg DAILY@06 PO 07/24/19 06:00 07/24/19 05:59 Levothyroxine Sodium (Synthroid) 100 mcg DAILY@06 PO 07/24/19 06:00 07/24/19 05:59 Lorazepam (Ativan) 1 mg Q2HP PRN IV SEIZURES 07/25/19 06:45 Cancel Lorazepam (Ativan) 2 mg STAT STAT IV 07/24/19 06:07 07/24/19 06:08 DC 07/24/19 06:11 Lorazepam (Ativan) 2 mg STAT STAT IV 07/24/19 06:12 07/24/19 06:15 DC Lorazepam (Ativan) 2 mg STAT STAT IV 07/25/19 06:30 07/25/19 06:31 DC 07/25/19 06:18 Metronidazole (Flagyl) 500 mg BID PO 07/23/19 21:00 07/31/19 20:59 07/25/19 09:08 Sodium Chloride 1,000 ml @ 100 mls/hr Q10H IV 07/23/19 16:00 07/24/19 08:26 DC 07/24/19 00:56 Sodium Chloride (Saline Lock Flush) 2 ml ASDIRECTED PRN IV SEE LABEL COMMENTS 07/24/19 09:00 Sodium Chloride (Saline Lock Flush) 2 ml SLF IV 07/24/19 14:00 07/25/19 14:00 Allergies Coded Allergies: Iodinated Contrast Media (Verified Allergy, Severe, STOPS BREATHING, 06/11/19) latex (Verified Allergy, Severe, " everything reacts" , 06/11/19) fentanyl (Verified Allergy, Intermediate, hives, 06/11/19) Dali Velasco MD Jul 25, 2019 20:48
[2019-07-26] VITALS (7 sets, daily range): BP systolic 106–168; BP diastolic 67–90
[2019-07-26 05:24] LABS: BASO % 0.6 % (0.0-1.0); EOS # 0.1 10^3/uL (0.0-0.5); EOS % 1.2 % (0.0-3.0); HEMATOCRIT 36.3 % (36.0-47.0); LYMPH # 1.8 10^3/uL (1.5-5.0); LYMPH % 36.2 % (24.0-44.0); MEAN CORPUSCULAR HEMOGLOBIN 28.6 pg (27.0-33.0); MEAN CORPUSCULAR HGB CONC 33.1 g/dl (32.0-36.5); MEAN CORPUSCULAR VOLUME 86.6 fl (80.0-96.0); MONO # 0.4 10^3/uL (0.0-0.8); MONO % 8.3 % (0.0-5.0); NEUTROPHILS # 2.6 10^3/uL (1.5-8.5); NEUTROPHILS % 53.5 % (36.0-66.0); PLATELET COUNT, AUTOMATED 188 10^3/uL (150-450); RED BLOOD COUNT 4.19 10^6/uL (4.00-5.40); WHITE BLOOD COUNT 4.9 10^3/uL (4.0-10.0)
[2019-07-26] MEDS: LEVOTHYROXINE 75MCG TABLET (0.075MG) PO SCH (05:41)
[2019-07-26] MEDS: LEVOTHYROXINE 100MCG TABLET (0.1MG) PO SCH (05:41)
[2019-07-26] MEDS: SLF 3 ML SYR IV SCH ×3 (05:42→20:21)
[2019-07-26 05:59] LABS: ALBUMIN 3.4 GM/DL (3.2-5.2); ALT/SGPT 15 U/L (12-78); BILIRUBIN,TOTAL 0.4 MG/DL (0.2-1.0); BLOOD UREA NITROGEN 9 MG/DL (7-18); CALCIUM LEVEL 8.4 MG/DL (8.5-10.1); CARBON DIOXIDE LEVEL 26 MEQ/L (21-32); CHLORIDE LEVEL 106 MEQ/L (98-107); CREATININE FOR GFR 0.84 MG/DL (0.55-1.30); GLOMERULAR FILTRATION RATE > 60.0 (>60); GLUCOSE, FASTING 102 MG/DL (70-100); POTASSIUM SERUM 4.1 MEQ/L (3.5-5.1); SODIUM LEVEL 137 MEQ/L (136-145); TOTAL PROTEIN 6.5 GM/DL (6.4-8.2)
[2019-07-26] MEDS: SYMBICORT 160/4.5MCG INHALER 6GM INH SCH ×2 (07:15→19:30)
[2019-07-26] MEDS: ENOXAPARIN 40 MG/0.4 ML SYRINGE (J1650) SC SCH (08:03)
[2019-07-26] MEDS: AMITRIPTYLINE 25 MG TAB PO SCH ×2 (08:03→20:21)
[2019-07-26] MEDS: GABAPENTIN 100 MG CAP PO SCH ×2 (08:03→20:21)
[2019-07-26] MEDS: levETIRAcetam 250MG TABLET (KEPPRA) PO SCH ×2 (08:03→20:21)
[2019-07-26] MEDS: lamoTRIgine 100MG TAB PO SCH ×2 (08:03→20:21)
[2019-07-26] MEDS: metroNIDAZOLE (FLAGYL) 500 MG TAB PO SCH ×2 (08:04→20:21)
[2019-07-26 08:06] LABS: LAMOTRIGINE (LAMICTAL) 5.2 ug/mL (2.0-20.0); LEVETIRACETAM (KEPPRA) 17.4 ug/mL (10.0-40.0)
--- NOTE | 2019-07-26 08:58 | REP ---
MRI brain without contrast: Repeat dictation. History: Extremity weakness bilateral. Lower extremity weakness. Preliminary report is provided at the time of exam by Christina SALMERON. Comparison study: Comparison CT study of the brain is from July 23, 2019. Comparison brain MRI study is from January 19, 2019. Technique: Axial and sagittal imaging planes are utilized for T1 and T2-weighted scans. Sequences include spin-echo, fast spin echo, FLAIR, and diffusion weighted sequences. MRI findings: No bony calvarial lesion is seen. Craniocervical junction and upper cervical cord are normal in appearance. There is no MR evidence of significant paranasal sinus disease. No intraorbital abnormality is seen. The lateral, third, and fourth ventricles are normal in size and position. Dorado-white differentiation pattern is intact above and below the tentorium. There is no evidence of intracranial hemorrhage. No mass, infarction, extra-axial fluid collection or midline shift is seen. 10 noted a scattered foci of subcortical white matter T2 hyperintensity in the frontal lobes bilaterally. These are nonspecific but unchanged from the January 19, 2019 prior study. Impression: Stable nonspecific subcortical white matter foci of T2 hyperintensity in the frontal lobes bilaterally. Otherwise negative noncontrast brain MRI study. Electronically Signed by Luke Ramesh MD 07/26/2019 08:50 A
--- NOTE | 2019-07-26 09:26 | REP ---
MRI CERVICAL SPINE WITHOUT CONTRAST: REPEAT DICTATION. HISTORY: Lower extremity weakness. Preliminary report is provided at the time of exam by Christina Naranjo. Comparison MRI study of the cervical spine is from October 25, 2013. TECHNIQUE: Axial and sagittal imaging planes are utilized for T1 and T2-weighted scans. Sequences include spin-echo, fast spin echo, FLAIR, and diffusion weighted sequences. MRI FINDINGS: There is reversal of the normal cervical lordosis. This is unchanged from prior study which showed straightening. Cervical vertebral body heights are preserved. Alignment is otherwise normal. Craniocervical junction is normal. Cervical cord is normal in coarse, caliber and signal intensity on T1 and T2-weighted scans. Axial and sagittal images at the C2-3 level show no significant finding. At C3-4, there is minimal central disc bulging. No other finding. No cord compression is seen. At C4-C5, there is no evidence of focal disc protrusion, spinal stenosis, or foraminal narrowing. At C5-C6, there is minimal diffuse disc bulging. This combined with some decreased signal intensity in the C5-6 disc suggests degenerative disc disease. This is similar to the prior study from October 25, 2013. No neural foraminal narrowing is seen. At C6-C7, there is also minimal central disc bulging. This is unchanged as well. No foraminal narrowing is appreciated. No cord compression is seen. At C7-T1, there is no abnormality. IMPRESSION: Minimal degenerative disc changes at C5-6 and C6-7. No cord compression, central canal stenosis, or neural foraminal narrowing seen. Electronically Signed by Luke Ramesh MD 07/26/2019 09:34 A
--- NOTE | 2019-07-26 09:28 | REP ---
MRI THORACIC SPINE WITHOUT CONTRAST: REPEAT DICTATION. HISTORY: Lower extremity weakness. Preliminary report is provided at the time of exam by [facility]. Comparison MRI study is from October 25, 2013. TECHNIQUE: Sagittal and axial T1 and T2-weighted scans are acquired in the usual fashion with and without fat saturation. Sequences include spin echo, turbo spin-echo, and STIR imaging sequences. MRI FINDINGS: Thoracic vertebral body heights are preserved. Alignment is normal. No bony destructive lesion is seen. Thoracic cord is normal in coarse, caliber and signal intensity on T1 and T2-weighted scans. A focus of increased signal intensity in the thoracic cord at the T8 vertebral body level on STIR images is not confirmed on turbo spin echo T2 axial or sagittal images. No cord swelling or atrophy. No abnormal cord lesion is seen. The tip of the conus medullaris is normal in position and appearance at T12-L1. No neural foraminal narrowing or cord compressive lesion is seen. No thoracic disc protrusion is observed. There is no evidence of central canal stenosis. Minimal disc bulging is seen at T11-12. Disc spaces are preserved in height and signal intensity. IMPRESSION: No intrinsic cord lesion or cord compressive lesion is seen. Electronically Signed by Luke Ramesh MD 07/26/2019 09:34 A
[2019-07-26] MEDS: ACETAMINOPHEN TAB 650MG DOSE (2X325MG) PO PRN (10:00)
[2019-07-26] MEDS ORDERED: LORazepam 2 MG/ML VIAL (J2060) IV STA ×2 (10:13→10:14)
[2019-07-26] MEDS ORDERED: LORazepam 2 MG/ML VIAL (J2060) As Ordered ONE (10:15)
--- NOTE | 2019-07-26 11:03 | MHCRPDOC ---
[facility] Consultation Consultation Phone Call MRN: N/A Date of : N/A Date of Service: 07/26/2019 Summary Consultation had been called for patient, who is a 29-year-old woman with a reported history of nonepileptic seizures, consultation was for whether the patient is malingering versus factitious or pseudoseizure. However, due to technical issues telepsychiatry was not able to engage, the nurse present did ask the patient some questions of which no safety concerns were elicited or gathered. Additionally in the chart it appears there is no concern of safety and the primary consultation is for whether she is malingering or factitious. However, after discussion with the nurse who had been present as well as consulting with the chart it appears that there is little to offer on this consultation at this time. In general guidance pseudoseizures for suspected seizure disorder and malingering hard to determine as they have to be diagnoses of exclusion with no objective signs or symptoms that are consistent with the medical phenomenon they are mimicking. Treatment is generally psychological nature or determine the psychological testing as an outpatient. The patient does not meet criteria for inpatient admission and has reported that she is not interested in an inpatient admission and thus with no inpatient admission criteria further treatment at this time would not be indicated other than referral for outpatient psychological testing and treatment. I discussed this with the inpatient hospice attending Dr. Velasco, at this time we will defer consult as even with full consultation it is highly unlikely that I will be able to contribute any meaningful information to her treatment as pseudoseizures need to be ruled out by neurology and after that point are then referred to outpatient treatment as inpatient treatment generally is not helpful and at this time has no indications for being forced on the patient at this time and she is uninterested. Monday Vital Signs Vital Signs Date Time Temp Pulse Resp B/P (MAP) Pulse Ox O2 Delivery O2 Flow Rate FiO2 07/26/19 10:22 98.0 130 12 168/84 (112) 100 07/26/19 10:10 Nasal Cannula 2.0 Laboratory Data 24H Labs Laboratory Tests 2 07/26/19 05:09: Immature Granulocyte % (Auto) 0.2, Neutrophils (%) (Auto) 53.5, Lymphocytes (%) (Auto) 36.2, Monocytes (%) (Auto) 8.3H, Eosinophils (%) (Auto) 1.2, Basophils (%) (Auto) 0.6, Neutrophils # (Auto) 2.6, Lymphocytes # (Auto) 1.8, Monocytes # (Auto) 0.4, Eosinophils # (Auto) 0.1, Basophils # (Auto) 0.0, Nucleated Red Blood Cells % (auto) 0.0, Anion Gap 5L, Glomerular Filtration Rate > 60.0, Calcium Level 8.4L, Total Bilirubin 0.4#, Aspartate Amino Transf (AST/SGOT) 13, Alanine Aminotransferase (ALT/SGPT) 15, Alkaline Phosphatase 51, Total Protein 6.5, Albumin 3.4, Albumin/Globulin Ratio 1.10 Home Medications Current Medications Current Medications Medications (Trade) Dose Ordered Sig/Gianni Route PRN Reason Start Time Stop Time Status Last Admin Dose Admin Acetaminophen (Tylenol Tab) 650 mg Q4H PRN PO PAIN OR FEVER 07/23/19 11:30 07/26/19 10:00 Albuterol Sulfate (Proventil, Ventolin Hfa) 2 puff Q6HP PRN INH SHORTNESS OF BREATH 07/23/19 12:30 07/24/19 18:19 Amitriptyline HCl (Elavil) 25 mg BID PO 07/23/19 09:00 07/26/19 08:03 Budesonide/ Formoterol Fumarate (Symbicort 160/ 4.5mcg) 2 puff BID INH 07/23/19 09:00 07/26/19 07:15 Enoxaparin Sodium (Lovenox) 40 mg DAILY SC 07/23/19 09:00 07/26/19 08:03 Gabapentin (Neurontin) 100 mg BID PO 07/23/19 09:00 07/26/19 08:03 Home Med (Med Rec Complete!) ASDIRECTED XX 07/23/19 11:30 07/23/19 11:25 DC Lamotrigine (LaMICtal) 200 mg BID PO 07/23/19 21:00 07/26/19 08:03 Levetiracetam (Keppra) 750 mg BID PO 07/23/19 21:00 07/26/19 08:03 Levothyroxine Sodium (Synthroid) 75 mcg DAILY@06 PO 07/24/19 06:00 07/26/19 05:41 Levothyroxine Sodium (Synthroid) 100 mcg DAILY@06 PO 07/24/19 06:00 07/26/19 05:41 Lorazepam (Ativan) 1 mg Q2HP PRN IV SEIZURES 07/25/19 06:45 Cancel Lorazepam (Ativan) 2 mg STAT STAT IV 07/26/19 10:14 07/26/19 10:16 DC Lorazepam (Ativan) 2 mg STAT STAT IV 07/24/19 06:07 07/24/19 06:08 DC 07/24/19 06:11 Lorazepam (Ativan) 2 mg STAT STAT IV 07/24/19 06:12 07/24/19 06:15 DC Lorazepam (Ativan) 2 mg STAT STAT IV 07/25/19 06:30 07/25/19 06:31 DC 07/25/19 06:18 Lorazepam (Ativan) 5 mg STAT STAT IV 07/26/19 10:13 07/26/19 10:14 DC Metronidazole (Flagyl) 500 mg BID PO 07/23/19 21:00 07/31/19 20:59 07/26/19 08:04 Sodium Chloride 1,000 ml @ 100 mls/hr Q10H IV 07/23/19 16:00 07/24/19 08:26 DC 07/24/19 00:56 Sodium Chloride (Saline Lock Flush) 2 ml ASDIRECTED PRN IV SEE LABEL COMMENTS 07/24/19 09:00 Sodium Chloride (Saline Lock Flush) 2 ml SLF IV 07/24/19 14:00 07/26/19 05:42 Scheduled Amitriptyline HCl (Amitriptyline HCl) 25 Mg Tablet, 25 MG PO BID, (Reported) Budesonide/Formoterol (Symbicort 160-4.5 Mcg Inhaler) 60 Puff/Inhaler Aers, 2 PU FF INH BID, (Reported) Gabapentin (Gabapentin) 100 Mg Capsule, 100 MG PO BID, (Reported) Lamotrigine (Lamictal) 200 Mg Tab, 200 MG PO BID, (Reported) Levetiracetam (Keppra) 750 Mg Tablet, 750 MG PO BID, (Reported) Levothyroxine Sodium (Levoxyl) 175 Mcg Tablet, 175 MCG PO DAILY, (Reported) Scheduled PRN Albuterol Sulfate (Proair Hfa) 8.5 Gm Hfa.aer.ad, 2 PUFF INH Q6H PRN for SOB/WHEEZING, (Reported) Allergies Coded Allergies: Iodinated Contrast Media (Verified Allergy, Severe, STOPS BREATHING, 06/11/19) latex (Verified Allergy, Severe, " everything reacts" , 06/11/19) fentanyl (Verified Allergy, Intermediate, hives, 06/11/19) ELLA CORRAL DO Jul 26, 2019 11:03
--- NOTE | 2019-07-26 20:05 | IPNPDOC ---
Date Seen The patient was seen on 07/26/19. Progress Note SUBJECTIVE: The patient had witness seizure this AM, resolved without ativan. Suspicious for another pseudoseizure. Concerned for possible malingering behavior, as these seizures occur after she asks for pain medications most times. Discussed with patient that MRI's did not look different from priors and neurology is recommending psychiatry evaluation. Discussed with psychiatry after their evaluation and they recommend psychological testing after discharge. She does not wish to go to retirement and social work talked with her today about discharge. She has not been participating with physical therapy well. She denies chest pain, shortness of breath. OBJECTIVE: VITAL SIGNS: Please see below PHYSICAL EXAMINATION: CONSTITUTIONAL: No acute distress, resting comfortably, AAO x 3 EYES: PERRLA, EOM intact HENT, MOUTH: Normocephalic, atraumatic, moist mucous membranes, NECK: SUPPLE, no JVD, no lymphadenopathy, no carotid bruit CV: Regular rate and rhythm, S1S2 normal, no murmurs/rubs/gallops RESPIRATORY: Clear to auscultation bilaterally, no rales/rhonchi/wheezes GI: BS positive in 4 quadrants, soft, nontender, nondistended, no rebound or guarding, no organomegaly : Deferred MUSCULOSKELETAL: Normal ROM. No cyanosis, clubbing, swelling, joint deformity, extremity edema. Pulses strong and present in all extremities. INTEGUMENTARY: Intact, no rashes, no lesions, no erythema NEUROLOGIC: Strength still 0/5 bilateral lower ext, no sensory deficits. Strength 2/5 in upper ext- worse than on admission. Cranial Nerves II-XII are intact PSYCHIATRIC: Affect flat LABORATORY DATA: Please see below IMAGING: No new imaging. ASSESSMENT: 29 y/o F admitted under inpatient status for seizure activity, r/o pseudoseizures with inability to ambulate. PLAN: 1. Pseudoseizure activity. Psychiatry evaluated and recommend psychological testing as outpatient. Will f/u official consult note. For now, c/w lamotrigine, keppra, seizure precautions. 2. Functional neurological disorder. Please see above. 2. Inability to ambulate. Please see plan under prob #1. Patient does not wish to go to NH or SNF. PT/OT. 3. Sinus tachycardia. Likely her baseline. Monitor on tele. 4. Asthma. Stable and on RA. C/w home meds. 5. Hypothyroidism. C/w home levothyroxine. 6. DVT px. Enoxaparin SC daily. DISPOSITION: Admitted under inpatient status. Psych consulted and social work discussed with patient her options for discharge. Will see how she performs over the weekend and hope for discharge home with caregiver. VS, I&O, 24H, Fishbone Vital Signs/I&O Vital Signs Date Time Temp Pulse Resp B/P (MAP) Pulse Ox O2 Delivery O2 Flow Rate FiO2 07/26/19 16:00 98.2 119 16 132/76 (94) 99 07/26/19 10:10 Nasal Cannula 2.0 I&O- Last 24 Hours up to 6 AM 07/26/19 06:00 Intake Total 1971 ml Output Total 2200 ml Balance -229 ml Laboratory Data 24H LABS Laboratory Tests 2 07/26/19 05:09: Immature Granulocyte % (Auto) 0.2, Neutrophils (%) (Auto) 53.5, Lymphocytes (%) (Auto) 36.2, Monocytes (%) (Auto) 8.3H, Eosinophils (%) (Auto) 1.2, Basophils (%) (Auto) 0.6, Neutrophils # (Auto) 2.6, Lymphocytes # (Auto) 1.8, Monocytes # (Auto) 0.4, Eosinophils # (Auto) 0.1, Basophils # (Auto) 0.0, Nucleated Red Blood Cells % (auto) 0.0, Anion Gap 5L, Glomerular Filtration Rate > 60.0, Calcium Level 8.4L, Total Bilirubin 0.4#, Aspartate Amino Transf (AST/SGOT) 13, Alanine Aminotransferase (ALT/SGPT) 15, Alkaline Phosphatase 51, Total Protein 6.5, Albumin 3.4, Albumin/Globulin Ratio 1.10 CBC/BMP Laboratory Tests 07/26/19 05:09 Current Medications Current Medications Medications (Trade) Dose Ordered Sig/Gianni Route PRN Reason Start Time Stop Time Status Last Admin Dose Admin Acetaminophen (Tylenol Tab) 650 mg Q4H PRN PO PAIN OR FEVER 07/23/19 11:30 07/26/19 10:00 Albuterol Sulfate (Proventil, Ventolin Hfa) 2 puff Q6HP PRN INH SHORTNESS OF BREATH 07/23/19 12:30 07/24/19 18:19 Amitriptyline HCl (Elavil) 25 mg BID PO 07/23/19 09:00 07/26/19 08:03 Budesonide/ Formoterol Fumarate (Symbicort 160/ 4.5mcg) 2 puff BID INH 07/23/19 09:00 07/26/19 19:30 Enoxaparin Sodium (Lovenox) 40 mg DAILY SC 07/23/19 09:00 07/26/19 08:03 Gabapentin (Neurontin) 100 mg BID PO 07/23/19 09:00 07/26/19 08:03 Home Med (Med Rec Complete!) ASDIRECTED XX 07/23/19 11:30 07/23/19 11:25 DC Lamotrigine (LaMICtal) 200 mg BID PO 07/23/19 21:00 07/26/19 08:03 Levetiracetam (Keppra) 750 mg BID PO 07/23/19 21:00 07/26/19 08:03 Levothyroxine Sodium (Synthroid) 75 mcg DAILY@06 PO 07/24/19 06:00 07/26/19 05:41 Levothyroxine Sodium (Synthroid) 100 mcg DAILY@06 PO 07/24/19 06:00 07/26/19 05:41 Lorazepam (Ativan) 1 mg Q2HP PRN IV SEIZURES 07/25/19 06:45 Cancel Lorazepam (Ativan) 2 mg STAT STAT IV 07/26/19 10:14 07/26/19 10:16 DC Lorazepam (Ativan) 2 mg STAT STAT IV 07/24/19 06:07 07/24/19 06:08 DC 07/24/19 06:11 Lorazepam (Ativan) 2 mg STAT STAT IV 07/24/19 06:12 07/24/19 06:15 DC Lorazepam (Ativan) 2 mg STAT STAT IV 07/25/19 06:30 07/25/19 06:31 DC 07/25/19 06:18 Lorazepam (Ativan) 5 mg STAT STAT IV 07/26/19 10:13 07/26/19 10:14 DC Metronidazole (Flagyl) 500 mg BID PO 07/23/19 21:00 07/31/19 20:59 07/26/19 08:04 Sodium Chloride 1,000 ml @ 100 mls/hr Q10H IV 07/23/19 16:00 07/24/19 08:26 DC 07/24/19 00:56 Sodium Chloride (Saline Lock Flush) 2 ml ASDIRECTED PRN IV SEE LABEL COMMENTS 07/24/19 09:00 Sodium Chloride (Saline Lock Flush) 2 ml SLF IV 07/24/19 14:00 07/26/19 14:00 Allergies Coded Allergies: Iodinated Contrast Media (Verified Allergy, Severe, STOPS BREATHING, 06/11/19) latex (Verified Allergy, Severe, " everything reacts" , 06/11/19) fentanyl (Verified Allergy, Intermediate, hives, 06/11/19) Dali Velasco MD Jul 26, 2019 20:05
[2019-07-27] VITALS: BP 127/68
[2019-07-27] MEDS ORDERED: METAL LOCK LOOP XX ONE (03:48)
[2019-07-27 04:00] VITALS: BP 121/66
[2019-07-27] MEDS: LEVOTHYROXINE 100MCG TABLET (0.1MG) PO SCH (05:42)
[2019-07-27] MEDS: LEVOTHYROXINE 75MCG TABLET (0.075MG) PO SCH (05:42)
[2019-07-27] MEDS: SLF 3 ML SYR IV SCH ×3 (05:50→23:11)
[2019-07-27 05:51] LABS: BASO % 0.4 % (0.0-1.0); EOS # 0.1 10^3/uL (0.0-0.5); EOS % 1.3 % (0.0-3.0); HEMATOCRIT 38.4 % (36.0-47.0); HEMOGLOBIN 12.1 g/dl (12.0-15.5); LYMPH # 1.7 10^3/uL (1.5-5.0); MEAN CORPUSCULAR HGB CONC 31.5 g/dl (32.0-36.5); MEAN CORPUSCULAR VOLUME 88.9 fl (80.0-96.0); MONO # 0.4 10^3/uL (0.0-0.8); MONO % 7.7 % (0.0-5.0); NEUTROPHILS % 57.4 % (36.0-66.0); PLATELET COUNT, AUTOMATED 194 10^3/uL (150-450); RED BLOOD COUNT 4.32 10^6/uL (4.00-5.40); WHITE BLOOD COUNT 5.2 10^3/uL (4.0-10.0)
[2019-07-27 06:10] LABS: ALBUMIN 3.4 GM/DL (3.2-5.2); ALT/SGPT 44 U/L (12-78); BILIRUBIN,TOTAL 0.2 MG/DL (0.2-1.0); BLOOD UREA NITROGEN 10 MG/DL (7-18); CALCIUM LEVEL 8.1 MG/DL (8.5-10.1); CARBON DIOXIDE LEVEL 24 MEQ/L (21-32); CHLORIDE LEVEL 109 MEQ/L (98-107); CREATININE FOR GFR 0.73 MG/DL (0.55-1.30); GLOMERULAR FILTRATION RATE > 60.0 (>60); GLUCOSE, FASTING 94 MG/DL (70-100); POTASSIUM SERUM 4.2 MEQ/L (3.5-5.1); SODIUM LEVEL 139 MEQ/L (136-145)
[2019-07-27 07:27] VITALS: BP 116/71
[2019-07-27] MEDS: SYMBICORT 160/4.5MCG INHALER 6GM INH SCH ×2 (07:43→20:29)
[2019-07-27] MEDS: levETIRAcetam 250MG TABLET (KEPPRA) PO SCH ×2 (08:22→20:10)
[2019-07-27] MEDS: ENOXAPARIN 40 MG/0.4 ML SYRINGE (J1650) SC SCH (08:22)
[2019-07-27] MEDS: GABAPENTIN 100 MG CAP PO SCH ×2 (08:22→20:10)
[2019-07-27] MEDS: AMITRIPTYLINE 25 MG TAB PO SCH ×2 (08:22→20:10)
[2019-07-27] MEDS: lamoTRIgine 100MG TAB PO SCH ×2 (08:22→20:10)
--- NOTE | 2019-07-27 15:31 | IPNPDOC ---
Date Seen The patient was seen on 07/27/19. Progress Note SUBJECTIVE: No seizure activity over past 24 hours. Currently PT recommending home with services, patient continues to improve. Hopeful for discharge in next 24-48 hours. She denies chest pain, shortness of breath. OBJECTIVE: VITAL SIGNS: Please see below PHYSICAL EXAMINATION: CONSTITUTIONAL: No acute distress, resting comfortably, AAO x 3 EYES: PERRLA, EOM intact HENT, MOUTH: Normocephalic, atraumatic, moist mucous membranes, NECK: SUPPLE, no JVD, no lymphadenopathy, no carotid bruit CV: Regular rate and rhythm, S1S2 normal, no murmurs/rubs/gallops RESPIRATORY: Clear to auscultation bilaterally, no rales/rhonchi/wheezes GI: BS positive in 4 quadrants, soft, nontender, nondistended, no rebound or guarding, no organomegaly : Deferred MUSCULOSKELETAL: Normal ROM. No cyanosis, clubbing, swelling, joint deformity, extremity edema. Pulses strong and present in all extremities. INTEGUMENTARY: Intact, no rashes, no lesions, no erythema NEUROLOGIC: Strength still 3/5 bilateral lower ext, no sensory deficits. Strength 4/5 in upper ext- worse than on admission. Cranial Nerves II-XII are intact PSYCHIATRIC: Normal mood and affect. LABORATORY DATA: Please see below IMAGING: No new imaging. ASSESSMENT: 29 y/o F admitted under inpatient status for seizure activity, r/o pseudoseizures with inability to ambulate. PLAN: 1. Pseudoseizure activity. Hx of epileptic seizures also. No seizure activity over past 24 hours and those she has had this hospital stay are believed to exclusively pseudoseizures. Psychiatry evaluated and recommend psychological testing as outpatient. For now, c/w lamotrigine, keppra, seizure precautions. 2. Functional neurological disorder. Please see above. 2. Inability to ambulate. Improving now with nursing staff and PT. C/w PT/OT. 3. Sinus tachycardia. Likely her baseline. Monitor on tele. 4. Asthma. Stable and on RA. C/w home meds. 5. Hypothyroidism. C/w home levothyroxine. 6. DVT px. Enoxaparin SC daily. DISPOSITION: Admitted under inpatient status. Psych consulted and social work discussed with patient her options for discharge. Will see how she performs over the weekend and hope for discharge home with caregiver after that time . VS, I&O, 24H, [place] Vital Signs/I&O Vital Signs Date Time Temp Pulse Resp B/P (MAP) Pulse Ox O2 Delivery O2 Flow Rate FiO2 07/27/19 07:27 97.9 107 16 116/71 (86) 100 Room Air 07/26/19 10:10 2.0 I&O- Last 24 Hours up to 6 AM 07/27/19 06:00 Intake Total 1300 ml Output Total 1025 ml Balance 275 ml Laboratory Data 24H LABS Laboratory Tests 2 07/27/19 05:10: Immature Granulocyte % (Auto) 0.2, Neutrophils (%) (Auto) 57.4, Lymphocytes (%) (Auto) 33.0, Monocytes (%) (Auto) 7.7H, Eosinophils (%) (Auto) 1.3, Basophils (%) (Auto) 0.4, Neutrophils # (Auto) 3.0, Lymphocytes # (Auto) 1.7, Monocytes # (Auto) 0.4, Eosinophils # (Auto) 0.1, Basophils # (Auto) 0.0, Nucleated Red Blood Cells % (auto) 0.0, Anion Gap 6L, Glomerular Filtration Rate > 60.0, Calcium Level 8.1L, Total Bilirubin 0.2, Aspartate Amino Transf (AST/SGOT) 43H, Alanine Aminotransferase (ALT/SGPT) 44, Alkaline Phosphatase 52, Total Protein 7.0, Albumin 3.4, Albumin/Globulin Ratio 0.94L CBC/BMP Laboratory Tests 07/27/19 05:10 Current Medications Current Medications Medications (Trade) Dose Ordered Sig/Gianni Route PRN Reason Start Time Stop Time Status Last Admin Dose Admin Acetaminophen (Tylenol Tab) 650 mg Q4H PRN PO PAIN OR FEVER 07/23/19 11:30 07/26/19 10:00 Albuterol Sulfate (Proventil, Ventolin Hfa) 2 puff Q6HP PRN INH SHORTNESS OF BREATH 07/23/19 12:30 07/24/19 18:19 Amitriptyline HCl (Elavil) 25 mg BID PO 07/23/19 09:00 07/27/19 08:22 Budesonide/ Formoterol Fumarate (Symbicort 160/ 4.5mcg) 2 puff BID INH 07/23/19 09:00 07/27/19 07:43 Enoxaparin Sodium (Lovenox) 40 mg DAILY SC 07/23/19 09:00 07/27/19 08:22 Gabapentin (Neurontin) 100 mg BID PO 07/23/19 09:00 07/27/19 08:22 Home Med (Med Rec Complete!) ASDIRECTED XX 07/23/19 11:30 07/23/19 11:25 DC Lamotrigine (LaMICtal) 200 mg BID PO 07/23/19 21:00 07/27/19 08:22 Levetiracetam (Keppra) 750 mg BID PO 07/23/19 21:00 07/27/19 08:22 Levothyroxine Sodium (Synthroid) 75 mcg DAILY@06 PO 07/24/19 06:00 07/27/19 05:42 Levothyroxine Sodium (Synthroid) 100 mcg DAILY@06 PO 07/24/19 06:00 07/27/19 05:42 Lorazepam (Ativan) 1 mg Q2HP PRN IV SEIZURES 07/25/19 06:45 Cancel Lorazepam (Ativan) 2 mg STAT STAT IV 07/26/19 10:14 07/26/19 10:16 DC Lorazepam (Ativan) 2 mg STAT STAT IV 07/24/19 06:07 07/24/19 06:08 DC 07/24/19 06:11 Lorazepam (Ativan) 2 mg STAT STAT IV 07/24/19 06:12 07/24/19 06:15 DC Lorazepam (Ativan) 2 mg STAT STAT IV 07/25/19 06:30 07/25/19 06:31 DC 07/25/19 06:18 Lorazepam (Ativan) 5 mg STAT STAT IV 07/26/19 10:13 07/26/19 10:14 DC Metronidazole (Flagyl) 500 mg BID PO 07/23/19 21:00 07/27/19 07:44 DC 07/26/19 20:21 Sodium Chloride 1,000 ml @ 100 mls/hr Q10H IV 07/23/19 16:00 07/24/19 08:26 DC 07/24/19 00:56 Sodium Chloride (Saline Lock Flush) 2 ml ASDIRECTED PRN IV SEE LABEL COMMENTS 07/24/19 09:00 Sodium Chloride (Saline Lock Flush) 2 ml SLF IV 07/24/19 14:00 07/27/19 14:20 Allergies Coded Allergies: Iodinated Contrast Media (Verified Allergy, Severe, STOPS BREATHING, 06/11/19) latex (Verified Allergy, Severe, " everything reacts" , 06/11/19) fentanyl (Verified Allergy, Intermediate, hives, 06/11/19) Dali Velasco MD Jul 27, 2019 15:31
[2019-07-27 16:00] VITALS: BP 114/71
[2019-07-27 17:30] VITALS: BP 131/87
[2019-07-27 22:00] VITALS: BP 128/80
[2019-07-28 02:00] VITALS: BP 118/74
[2019-07-28] MEDS: LEVOTHYROXINE 100MCG TABLET (0.1MG) PO SCH (05:35)
[2019-07-28] MEDS: SLF 3 ML SYR IV SCH (05:35)
[2019-07-28] MEDS: LEVOTHYROXINE 75MCG TABLET (0.075MG) PO SCH (05:35)
[2019-07-28 06:00] VITALS: BP 115/74
[2019-07-28 06:04] LABS: BASO % 0.9 % (0.0-1.0); EOS # 0.1 10^3/uL (0.0-0.5); EOS % 2.4 % (0.0-3.0); HEMATOCRIT 36.1 % (36.0-47.0); HEMOGLOBIN 11.7 g/dl (12.0-15.5); LYMPH # 1.6 10^3/uL (1.5-5.0); LYMPH % 34.6 % (24.0-44.0); MEAN CORPUSCULAR HEMOGLOBIN 28.7 pg (27.0-33.0); MEAN CORPUSCULAR HGB CONC 32.4 g/dl (32.0-36.5); MEAN CORPUSCULAR VOLUME 88.7 fl (80.0-96.0); MONO # 0.4 10^3/uL (0.0-0.8); MONO % 8.4 % (0.0-5.0); NEUTROPHILS # 2.5 10^3/uL (1.5-8.5); NEUTROPHILS % 53.5 % (36.0-66.0); PLATELET COUNT, AUTOMATED 189 10^3/uL (150-450); RED BLOOD COUNT 4.07 10^6/uL (4.00-5.40); WHITE BLOOD COUNT 4.6 10^3/uL (4.0-10.0)
[2019-07-28 06:32] LABS: ALBUMIN 3.3 GM/DL (3.2-5.2); ALT/SGPT 56 U/L (12-78); BILIRUBIN,TOTAL 0.3 MG/DL (0.2-1.0); BLOOD UREA NITROGEN 13 MG/DL (7-18); CALCIUM LEVEL 8.3 MG/DL (8.5-10.1); CARBON DIOXIDE LEVEL 26 MEQ/L (21-32); CHLORIDE LEVEL 108 MEQ/L (98-107); CREATININE FOR GFR 0.79 MG/DL (0.55-1.30); GLOMERULAR FILTRATION RATE > 60.0 (>60); GLUCOSE, FASTING 91 MG/DL (70-100); SODIUM LEVEL 139 MEQ/L (136-145); TOTAL PROTEIN 6.8 GM/DL (6.4-8.2)
[2019-07-28] MEDS: SYMBICORT 160/4.5MCG INHALER 6GM INH SCH (07:15)
[2019-07-28] MEDS: lamoTRIgine 100MG TAB PO SCH (08:25)
[2019-07-28] MEDS: AMITRIPTYLINE 25 MG TAB PO SCH (08:25)
[2019-07-28] MEDS: GABAPENTIN 100 MG CAP PO SCH (08:25)
[2019-07-28] MEDS: levETIRAcetam 250MG TABLET (KEPPRA) PO SCH (08:25)
[2019-07-28] MEDS: ENOXAPARIN 40 MG/0.4 ML SYRINGE (J1650) SC SCH (08:26)
[2019-07-28 10:00] VITALS: BP 132/77
--- NOTE | 2019-07-28 12:24 | DS.PDOC ---
Discharge Summary General Date of Admission Jul 23, 2019 at 11:28 Date of Discharge 07/28/19 Primary Care Physician: JOY SHANE MD Attending Physician: Dali Velasco MD Discharge Summary HISTORY OF PRESENT ILLNESS: The patient is a 29-year-old female with a past medical history of epileptic and nonepileptic psychogenic seizures, Hodgkin's lymphoma status post chemotherapy, radiation and bone marrow transplant, history of brain cyst, asthma who presente d to the emergency room after having had a witnessed seizure by her boyfriend/caregiver. The patient's caregiver was not present at the bedside and information was passed on also by the ER team. Early this morning at approximately 5 AM the patient "felt weird" and alerted her boyfriend. She stated that she felt lightheaded, dizzy and had some shortness of breath prior to this feeling. She denies any chest pain, fevers, chills, cough, recent illnesses. She denies any recent modifications in her medications and takes gabapentin, Keppra and Lamictal consistently. After feeling "weird", the patient states initially she loss consciousness and later woke up to EMS at her house. She had told the emergency room that she remembered the complete event but later told me that she only remembers portions of her loss of consciousness. She had a seizure for an unknown amount of time and as stated, when she woke up the patient was slightly confused. It was noted that after the event she was not able to feel her legs and started staring off into space with some limb shaking according to witnesses. There was no tongue biting, loss of bowel or bladder but it was noted that she was shaking much like when she has had grand mal seizures in the past. The patient states she was resting in bed when her seizure occurred. In the emergency room, vital signs showed a pulse of 107, but pressure 124/72, respiratory rate 16, 97% on room air. She was afebrile. On initial examination by the ER provider the patient had 4 out of 5 strength in all extremities. Labs are unremarkable, lamotrigine and Keppra levels were sent and are pending. CT of the head no acute findings. Her neurologist at [facility] was contacted by the ER providers here. Her neurologist suggested no new medication changes at this time. When the patient was stood up to be assessed by physical therapy in the emergency room, the patient was weak and could not stand. According to the emergency room physicians she has a history of pseudoseizures, nonepileptic psychogenic seizures. The patient was admitted under inpatient status for acute inability to ambulate, lower extremity weakness. HOSPITAL COURSE: During the patient's hospitalization, she had several witnessed seizure-like activity episodes. Prolactin was checked and seizure medicine levels were checked and all were normal. This information along with the exam during the seizure-like activities pointed more towards pseudoseizure versus epileptic etiology. MRI of the brain, thoracic spine and cervical spine were negative for acute changes compared to prior on file. Neurology was consult it and the case was discussed in detail multiple times during her hospital stay. They agree with the aforementioned diagnosis of pseudoseizure. They did not recommend a lumbar puncture or steroid treatments but recommended a psychiatric evaluation. Concerned for possible malingering vs factitious behavior, as these seizures occur after she asks for pain medications most times, psychiatry was consulted. Psychiatry could not offer much input but suggested outpatient psychological testing to be done either by psychiatrist or psychologist who offers this. I had a discussion with the patient in great detail during her hospital stay about her current diagnosis and try to explain it to her the best I could. It was also explained that if she should did not participate with physical therapy or show improvement in her strength and ambulating that she would require skilled nursing versus 24-hour care, home health. Over the past several days after had this conversation, the patient began to improve markedly. She was assessed by physical therapy and they deemed her okay to go home with home health services, PT/OT. On 07/28/2019 the patient was discharged home with home health services in improved condition. She is encouraged to follow-up with her primary care provider. If she should have any increased lower extremity weakness or falls she should be seen by a medical professional. The patient denies chest pain, shortness of breath, nausea, vomiting, chills, fevers. REVIEW OF SYSTEMS: CONSTITUTIONAL: Denies unexplained weight gain or weight loss, fever, night sweats EYES: Denies eye drainage, eye pain, visual changes, dry/irritated eye EARS, NOSE, MOUTH, THROAT: Denies difficulty hearing, ringing in ears, mouth sores, loose teeth, sore throat, facial numbness or pain NECK: Denies swollen glands CARDIOVASCULAR: Denies irregular heartbeat, racing heart, chest pains, swelling of feet or legs, pain in legs with walking RESPIRATORY: Denies night sweats, wheezing, sputum production, oxygen at home, coughing up blood, cough lasting > 1 month GASTROINTESTINAL: Denies abdominal pain, constipation, bloody stool, diarrhea, heartburn, nausea, vomiting GENITOURINARY: Denies painful urination, bloody urine, frequent urination, urgency, leaking urine, impotence MUSCULOSKELETAL: Denies joint pain, muscle pain, leg swelling INTEGUMENTARY: Denies rash, itching, new skin lesion, change in existing skin lesion, hair loss or increase, breast changes. NEUROLOGICAL: Denies headaches PSYCHIATRIC: Denies depression, anxiety, recurrent bad thoughts, mood swings, hallucinations PAST MEDICAL HISTORY: 1. Grand mal/focal seizures 2. Pseudoseizures 3. Hodgkin's lymphoma s/p chemo, radiation, bone marrow transplant 2011 4. brain cyst 5. Asthma 6. Hypoglycemia history 7. Hypothyroidism 8. diverticular disease 9. Raynaud's phenomenon PAST SURGICAL HISTORY: 1. Bone marrow transplants 2011 2. Pericardial window 3. Neck tumor removal 4. tympanostomy placement and later removed 5. Adenoid removal 6. Fallopian tubes tied 7. Chest port 2 placed, later removed due to infection 8. PICC line 2 placed, later removed 9. LN resection FAMILY HISTORY: Father: Grand mal seizures, stroke. Alive. Mother: Uterine cancer. Alive. Paternal aunt: Hodgkin's lymphoma. at 16 y/o. Paternal grandmother: HLD, stroke, hypertension. at 85 years old SOCIAL HISTORY: Patient denies alcohol, smoking or drug use history. She lives in the local area with her boyfriend/caregiver. Her PCP is Dr. Shane, neurologist is at [facility], oncologist is also in [place]. She has a healthcare proxy. ALLERGIES: Please see below. HOME MEDICATIONS: Please see below. PHYSICAL EXAMINATION: CONSTITUTIONAL: No acute distress, resting comfortably, AAO x 3 EYES: PERRLA, EOM intact HENT, MOUTH: Normocephalic, atraumatic, moist mucous membranes, NECK: SUPPLE, no JVD, no lymphadenopathy, no carotid bruit CV: Regular rate and rhythm, S1S2 normal, no murmurs/rubs/gallops RESPIRATORY: Clear to auscultation bilaterally, no rales/rhonchi/wheezes GI: BS positive in 4 quadrants, soft, nontender, nondistended, no rebound or guarding, no organomegaly : Deferred MUSCULOSKELETAL: Normal ROM. No cyanosis, clubbing, swelling, joint deformity, extremity edema. Pulses strong and present in all extremities. INTEGUMENTARY: Intact, no rashes, no lesions, no erythema NEUROLOGIC: Strength still 4/5 bilateral lower ext, no sensory deficits. Strength 4/5 in upper ext- worse than on admission. Cranial Nerves II-XII are intact PSYCHIATRIC: Normal mood and affect. LABORATORY DATA: Please see below IMAGING: Please see under trascriptions ASSESSMENT: 29 y/o F admitted treated for inability to amblulate s/p pseudoseizure. PLAN: 1. Pseudoseizure activity. Hx of epileptic seizures also. Seizure-like activity had this stay believed to be exclusively pseudoseizures. Psychiatry evaluated and recommend psychological testing as outpatient. Recommend to c/w lamotrigine, keppra, seizure precautions after discharge. 2. Functional neurological disorder. Psychological testing recommended. Please see above. 2. Inability to ambulate. Improving now with nursing staff and PT. C/w PT/OT as outpatient. 3. Sinus tachycardia. Likely her baseline. Monitor on tele. 4. Asthma. Stable and on RA. C/w home meds. 5. Hypothyroidism. C/w home levothyroxine. DISPOSITION: The patient is discharged home in improved condition. She is to make a follow-up appointment with her primary care provider within 12 weeks status post discharge. She is also advised to reach out to psychiatry or psychology who can do psychological testing. TOTAL DISCHARGE TIME: 25 MINS Vital Signs/I&Os Vital Signs Date Time Temp Pulse Resp B/P (MAP) Pulse Ox O2 Delivery O2 Flow Rate FiO2 07/28/19 10:00 97.8 133 17 132/77 (95) 97 Room Air 07/26/19 10:10 2.0 I&O- Last 24 Hours up to 6 AM 07/28/19 05:59 Intake Total 1620 ml Output Total 200 ml Balance 1420 ml Laboratory Data Labs 24H Laboratory Tests 2 07/28/19 05:25: Immature Granulocyte % (Auto) 0.2, Neutrophils (%) (Auto) 53.5, Lymphocytes (%) (Auto) 34.6, Monocytes (%) (Auto) 8.4H, Eosinophils (%) (Auto) 2.4, Basophils (%) (Auto) 0.9, Neutrophils # (Auto) 2.5, Lymphocytes # (Auto) 1.6, Monocytes # (Auto) 0.4, Eosinophils # (Auto) 0.1, Basophils # (Auto) 0.0, Nucleated Red Blood Cells % (auto) 0.0, Anion Gap 5L, Glomerular Filtration Rate > 60.0, Calcium Level 8.3L, Total Bilirubin 0.3, Aspartate Amino Transf (AST/SGOT) 52H, Alanine Aminotransferase (ALT/SGPT) 56, Alkaline Phosphatase 51, Total Protein 6.8, Albumin 3.3, Albumin/Globulin Ratio 0.94L CBC/BMP Laboratory Tests 07/28/19 05:25 Discharge Medications Scheduled Amitriptyline HCl (Amitriptyline HCl) 25 Mg Tablet, 25 MG PO BID, (Reported) Budesonide/Formoterol (Symbicort 160-4.5 Mcg Inhaler) 60 Puff/Inhaler Aers, 2 PUFF INH BID, (Reported) Gabapentin (Gabapentin) 100 Mg Capsule, 100 MG PO BID, (Reported) Lamotrigine (Lamictal) 200 Mg Tab, 200 MG PO BID, (Reported) Levetiracetam (Keppra) 750 Mg Tablet, 750 MG PO BID, (Reported) Levothyroxine Sodium (Levoxyl) 175 Mcg Tablet, 175 MCG PO DAILY, (Reported) Scheduled PRN Albuterol Sulfate (Proair Hfa) 8.5 Gm Hfa.aer.ad, 2 PUFF INH Q6H PRN for SOB/WHEEZING, (Reported) Allergies Coded Allergies: Iodinated Contrast Media (Verified Allergy, Severe, STOPS BREATHING, 06/11/19) latex (Verified Allergy, Severe, " everything reacts" , 06/11/19) fentanyl (Verified Allergy, Intermediate, hives, 06/11/19) Dali Velasco MD Jul 28, 2019 12:24
== END 2019-07-28 10:35 | disposition home or self-care (01) | DRG 53 ==
LOC: M ED 06:10 → M ED INP 11:28 → ENRESERV 11:46 → M MSPAV 12:45 → M PCU 07-24 06:15 → M MSPAV 07-27 16:53
PROVIDERS: ADMIT Internal Medicine; ATTEND Internal Medicine
DX: R56.9 Unspecified convulsions (principal); E03.9 Hypothyroidism, unspecified; J45.909 Unspecified asthma, uncomplicated; I73.00 Raynaud's syndrome without gangrene; R00.0 Tachycardia, unspecified; R26.2 Difficulty in walking, not elsewhere classified; R29.818 Other symptoms and signs involving the nervous system; Z85.79 Personal history of other malignant neoplasms of lymphoid, hematopoietic and related tissues; Z92.3 Personal history of irradiation; Z92.21 Personal history of antineoplastic chemotherapy; Z79.899 Other long term (current) drug therapy; Z91.041 Radiographic dye allergy status; Z91.040 Latex allergy status; Z88.5 Allergy status to narcotic agent; Z76.5 Malingerer [conscious simulation]

== ENCOUNTER → 2019-09-01 | Outpatient (CLI) | payer MEDICAID ==
[~2019-09-01] MED LIST changes: +LEVO175T19 PO
[2019-09-01 09:58] LABS: FREE T4 0.82 NG/DL (0.76-1.46)
[2019-09-02 11:38] LABS: THYROID PEROXIDASE ANTIBODY 28.6 U/ML (<60.0)
[2019-09-02 11:39] LABS: THYROGLOBULIN ANTIBODY < 15.0 U/ML (<60.0)
== END ==
LOC: M LAB 08:21
PROVIDERS: ATTEND Nurse Practitioner Family
DX: E03.9 Hypothyroidism, unspecified (principal)

== ENCOUNTER → 2019-11-05 | Outpatient (CLI) | payer MEDICAID ==
[~2019-11-05] MED LIST changes: +COLA100C5 PO; +IBUP-1022 PO; +METR-265 PO; +METR1GEL7 PV; +PANT40TA29 PO; -PANT40TA3 PO
[2019-11-05 14:14] LABS: FREE T4 2.21 NG/DL (0.76-1.46); THYROID STIMULATING HORMONE < 0.005 uIU/ML (0.358-3.740)
== END ==
LOC: M LAB 12:52
PROVIDERS: ATTEND Nurse Practitioner Family
DX: E03.9 Hypothyroidism, unspecified (principal)

== ENCOUNTER 2019-11-28 02:30 | Emergency (ER) | payer MEDICAID ==
[~2019-11-28 02:30] MED LIST changes: -COLA100C5 PO; -IBUP-1022 PO; -METR-265 PO; -METR1GEL7 PV
[2019-11-28] MEDS ORDERED: ETOMIDATE INJ 20MG/10ML VIAL ONE (09:00)
[2019-11-28] MEDS ORDERED: SUCCINYLCHOLINE 100 MG/5 ML SYRINGE (J0330) ONE (09:00)
[2019-11-28] MEDS ORDERED: LORazepam 2 MG/ML VIAL ONE (23:32)
[2019-11-29] MEDS ORDERED: PROPOFOL 1,000 MG/100 ML VIAL ONE ×3 (00:02→03:35)
[2019-11-29] MEDS ORDERED: PROPOFOL 1,000 MG/100 ML VIAL As Ordered ONE ×3 (00:02→03:35)
[2019-11-29] MEDS ORDERED: levETIRAcetam 500 MG/5 ML VIAL (KEPPRA IV)(J1953) As Ordered ONE (01:38)
[2019-11-29] MEDS ORDERED: levETIRAcetam 500 MG/5 ML VIAL (KEPPRA IV)(J1953) ONE (01:38)
[2019-12-01] MEDS ORDERED: METAL LOCK LOOP XX ONE (01:29)
[2019-12-10] MEDS ORDERED: METAL LOCK LOOP XX ONE (05:02)
--- NOTE | 2020-01-01 14:07 | ECGEPIP ---
SINUS TACHYCARDIA POSSIBLE LEFT ATRIAL ENLARGEMENT SEPTAL MYOCARDIAL INFARCTION, OF INDETERMINATE AGE ABNORMAL ECG NON SPECIFIC ST T WAVE ABNORMALITY SEE SCANNED DOWNTIME REPORT MTDD
[2020-01-13 01:02] LABS: BASO % 0.4 % (0.0-1.0); EOS % 0.1 % (0.0-3.0); HEMATOCRIT 37.1 % (36.0-47.0); HEMOGLOBIN 11.9 g/dl (12.0-15.5); LYMPH # 0.8 10^3/uL (1.5-5.0); LYMPH % 10.2 % (24.0-44.0); MEAN CORPUSCULAR HEMOGLOBIN 26.9 pg (27.0-33.0); MEAN CORPUSCULAR HGB CONC 32.1 g/dl (32.0-36.5); MEAN CORPUSCULAR VOLUME 83.7 fl (80.0-96.0); MONO # 0.3 10^3/uL (0.0-0.8); MONO % 3.4 % (0.0-5.0); NEUTROPHILS # 6.4 10^3/uL (1.5-8.5); NEUTROPHILS % 85.8 % (36.0-66.0); RED BLOOD COUNT 4.43 10^6/uL (4.00-5.40); WHITE BLOOD COUNT 7.5 10^3/uL (4.0-10.0)
[2020-01-13 04:12] LABS: APPEARANCE, URINE CLEAR (CLEAR); BACTERIA, URINE AUTO NEGATIVE (NEGATIVE); BILIRUBIN, URINE AUTO NEGATIVE (NEGATIVE); BLOOD, URINE BLOOD NEGATIVE (NEGATIVE); COLOR, URINE YELLOW (YELLOW); GLUCOSE, URINE (UA) AUTO NEGATIVE (NEGATIVE); KETONE, URINE AUTO 1+ mg/dL (NEGATIVE); LEUKOCYTE ESTERASE, URINE AUTO NEGATIVE (NEGATIVE); MUCUS, URINE SMALL (NEGATIVE); NITRITE, URINE AUTO NEGATIVE (NEGATIVE); PROTEIN, URINE AUTO NEGATIVE (NEGATIVE); RBC, URINE AUTO 1 /HPF (0-3); SPECIFIC GRAVITY URINE AUTO 1.012 (1.002-1.035); SQUAMOUS EPITHELIAL CELL UR AU 1 /HPF (0-6); UROBILINOGEN, URINE AUTO 0.2 mg/dL (0.0-2.0); WBC, URINE AUTO 0 /HPF (0-3)
== END 2019-11-29 03:35 | disposition short-term general hospital (02) ==
LOC: M ED 02:30
DX: G40.911 Epilepsy, unspecified, intractable, with status epilepticus (principal); G93.6 Cerebral edema; J45.909 Unspecified asthma, uncomplicated; C85.90 Non-Hodgkin lymphoma, unspecified, unspecified site; E03.9 Hypothyroidism, unspecified; Z91.040 Latex allergy status; Z88.4 Allergy status to anesthetic agent; Z91.041 Radiographic dye allergy status; Z79.899 Other long term (current) drug therapy
CPT/HCPCS: 31500; 51702; 70450; 71045; 80048; 80076; 80180; 80307; 81001; 82803; 83735; 84100; 84439; 84443; 84703; 85025; 87086; 93005; 96374; 96375; 99291; J0330; J1953; J2060

== ENCOUNTER → 2020-01-20 | Outpatient (REF) | payer MEDICAID ==
[~2020-01-20] MED LIST changes: +COLA100C5 PO; +IBUP-1022 PO; +METR-265 PO; +METR1GEL7 PV
[2020-01-20 15:54] LABS: FREE T4 1.01 NG/DL (0.76-1.46); THYROID STIMULATING HORMONE 2.2 uIU/ML (0.358-3.740)
== END ==
LOC: M SFHCPLAZ 11:45
PROVIDERS: ATTEND Family Medicine
DX: E03.9 Hypothyroidism, unspecified (principal)

== ENCOUNTER 2020-01-28 21:45 | Emergency (ER) | payer MEDICAID ==
[~2020-01-28 21:45] MED LIST changes: -COLA100C5 PO; -IBUP-1022 PO; -METR-265 PO; -METR1GEL7 PV
[2020-01-29 00:07] LABS: BASO % 0.3 % (0.0-1.0); EOS # 0.1 10^3/uL (0.0-0.5); HEMATOCRIT 41.6 % (36.0-47.0); LYMPH # 1.1 10^3/uL (1.5-5.0); LYMPH % 12.8 % (24.0-44.0); MEAN CORPUSCULAR HEMOGLOBIN 26.9 pg (27.0-33.0); MEAN CORPUSCULAR HGB CONC 31.3 g/dl (32.0-36.5); MEAN CORPUSCULAR VOLUME 86.1 fl (80.0-96.0); MONO # 0.3 10^3/uL (0.0-0.8); MONO % 3.8 % (0.0-5.0); NEUTROPHILS # 7.2 10^3/uL (1.5-8.5); NEUTROPHILS % 81.1 % (36.0-66.0); PLATELET COUNT, AUTOMATED 200 10^3/uL (150-450); RED BLOOD COUNT 4.83 10^6/uL (4.00-5.40); WHITE BLOOD COUNT 8.9 10^3/uL (4.0-10.0)
[2020-01-29 00:18] LABS: HCG, SERUM QUALITATIVE NEGATIVE (NEGATIVE)
[2020-01-29 00:37] LABS: ALBUMIN 4.1 GM/DL (3.2-5.2); ALT/SGPT 15 U/L (12-78); BILIRUBIN,DIRECT < 0.1 MG/DL (0.0-0.2); BILIRUBIN,TOTAL 0.2 MG/DL (0.2-1.0); BLOOD UREA NITROGEN 10 MG/DL (7-18); CALCIUM LEVEL 9.2 MG/DL (8.5-10.1); CARBON DIOXIDE LEVEL 24 MEQ/L (21-32); CHLORIDE LEVEL 109 MEQ/L (98-107); ETHYL ALCOHOL (ETHANOL) < 0.003 % (0.000-0.010); GLOMERULAR FILTRATION RATE > 60.0 (>60); GLUCOSE, FASTING 100 MG/DL (70-100); POTASSIUM SERUM 3.9 MEQ/L (3.5-5.1); SODIUM LEVEL 141 MEQ/L (136-145); TOTAL PROTEIN 7.6 GM/DL (6.4-8.2)
[2020-01-29] MEDS ORDERED: NS 1,000 ML IV ONE (00:45)
[2020-01-29] MEDS ORDERED: DICYCLOMINE 10 MG CAP PO ONE (00:45)
[2020-01-29] MEDS ORDERED: ONDANSETRON 4MG/2ML VIAL IV ONE (00:45)
[2020-01-29] MEDS ORDERED: METAL LOCK LOOP XX ONE (02:20)
[2020-01-29 03:00] VITALS: BP 144/87
--- NOTE | 2020-01-29 07:17 | ECGEPIP ---
[facility] - ED Test Date: 2020-01-28 Pat Name: NERY WAN Department: Room: - Gender: Female Community Relations Coordinator: ANSON : 1990 Requested By: GLEN Redmond Order Number: [id number] Reading MD: Jose Enrique Thompson Measurements Intervals [place] Rate: 120 P: 46 HI: 164 QRS: 73 QRSD: 80 T: 52 QT: 418 QTc: 592 Interpretive Statements SINUS TACHYCARDIA SEPTAL MYOCARDIAL INFARCTION, OF INDETERMINATE AGE NSTTW ABNORMALITY(S) SIMILAR TO 01/19/19 Electronically Signed on 01-29-2020 7:17:01 EDT by Jose Enrique Thompson
== END 2020-01-29 03:18 | disposition home or self-care (01) ==
LOC: M ED 21:45
DX: G40.319 Generalized idiopathic epilepsy and epileptic syndromes, intractable, without status epilepticus (principal); R10.9 Unspecified abdominal pain; R11.2 Nausea with vomiting, unspecified; R00.0 Tachycardia, unspecified; I10 Essential (primary) hypertension; E03.9 Hypothyroidism, unspecified; C81.90 Hodgkin lymphoma, unspecified, unspecified site; Z91.041 Radiographic dye allergy status; Z91.040 Latex allergy status; Z88.5 Allergy status to narcotic agent; Z79.899 Other long term (current) drug therapy
CPT/HCPCS: 74176; 80048; 80076; 84443; 84703; 85025; 93005; 93041; 94760; 96361; 96374; 99285; G0480; J2405

== ENCOUNTER → 2020-02-08 | Outpatient (CLI) | payer MEDICAID ==
[~2020-02-08] MED LIST changes: +COLA100C5 PO; +IBUP-1022 PO; +METR-265 PO; +METR1GEL7 PV
== END ==
LOC: M LABSMTC 09:08
PROVIDERS: ATTEND Anesthesiology
DX: Z01.812 Encounter for preprocedural laboratory examination (principal); Z20.828 Contact with and (suspected) exposure to other viral communicable diseases
CPT/HCPCS: C9803; U0003

== ENCOUNTER 2020-02-13 05:55 | Day surgery (SDC) | payer MEDICAID ==
[~2020-02-13] VITALS: Ht 165.1 cm; Wt 72.0 kg
[2020-02-13] VITALS (7 sets, daily range): BP systolic 116–125; BP diastolic 71–82
[~2020-02-13 05:55] MED LIST changes: -COLA100C5 PO; -IBUP-1022 PO; -METR-265 PO; -METR1GEL7 PV
[2020-02-13] MEDS ORDERED: ceFAZolin SOD 2 GM in IV 1 EA IV ONE (06:00)
[2020-02-13] MEDS ORDERED: LR 1,000 ML IV ONE (06:00)
[2020-02-13] MEDS ORDERED: LIDOCAINE 1% MDV 20ML VIAL SQ PRN (06:00)
[2020-02-13 07:09] LABS: HEMATOCRIT 39.2 % (36.0-47.0); HEMOGLOBIN 12.3 g/dl (12.0-15.5); MEAN CORPUSCULAR HEMOGLOBIN 27.2 pg (27.0-33.0); MEAN CORPUSCULAR HGB CONC 31.4 g/dl (32.0-36.5); MEAN CORPUSCULAR VOLUME 86.7 fl (80.0-96.0); PLATELET COUNT, AUTOMATED 219 10^3/uL (150-450); RED BLOOD COUNT 4.52 10^6/uL (4.00-5.40); WHITE BLOOD COUNT 5.5 10^3/uL (4.0-10.0)
[2020-02-13] MEDS ORDERED: LIDOCAINE 2% 100MG/5ML SDV (FOR ANES.) As Ordered ONE (07:19)
[2020-02-13] MEDS ORDERED: propofoL 200 MG/20 ML VIAL As Ordered ONE (07:19)
[2020-02-13] MEDS ORDERED: ROCURONIUM BROMIDE 50 MG/5 ML VIAL As Ordered ONE ×2 (07:19→08:27)
[2020-02-13] MEDS ORDERED: dexameTHASONE 4 MG/ML 1ML VIAL (J1100 PER 1MG) As Ordered ONE (07:19)
[2020-02-13] MEDS ORDERED: MIDAZOLAM INJ 2MG/2ML VIAL (J2250 PER 1MG) As Ordered ONE (07:20)
[2020-02-13] MEDS ORDERED: fentaNYL 250 MCG/5 ML INJECTION (J3010) As Ordered ONE (07:20)
[2020-02-13] MEDS ORDERED: HYDROmorphone HCL 2 MG/ML 1ML VIAL (J1170) As Ordered ONE (07:33)
[2020-02-13] MEDS ORDERED: PHENYLephrine HCL 500 MCG/5 ML (100MCG/ML) SYRINGE (J2370) As Ordered ONE (07:46)
[2020-02-13] MEDS ORDERED: LACRILUBE (AKWA TEARS) OPHTH OINT 3.5 GM As Ordered ONE (08:11)
[2020-02-13] MEDS ORDERED: ACETAMINOPHEN 1000MG 100ML IV BTL (OFIRMEV) (J0131 PER 10MG) As Ordered ONE (08:11)
[2020-02-13] MEDS ORDERED: ONDANSETRON 4MG/2ML VIAL As Ordered ONE (08:34)
[2020-02-13] MEDS ORDERED: SUGAMMADEX SODIUM 500 MG/5 ML VIAL (BRIDION) As Ordered ONE (08:34)
[2020-02-13] MEDS ORDERED: KETOROLAC 60MG 2ML VIAL As Ordered ONE (08:34)
[2020-02-13] MEDS ORDERED: MORPHINE 1MG/ML IN 0.9% NACL 100ML IV BAG As Ordered ONE (09:55)
[2020-02-13] MEDS: LR 1,000 ML IV SCH ×3 (10:15→23:19)
[2020-02-13] MEDS ORDERED: EPIDURAL/PCA KEYS XX PRN (10:15)
[2020-02-13] MEDS ORDERED: MORPHINE 1MG/ML IN 0.9% NACL 100ML IV BAG IV PRN (10:15)
[2020-02-13] MEDS ORDERED: NS 1,000 ML IV SCH (10:15)
[2020-02-13] MEDS ORDERED: ONDANSETRON 4MG/2ML VIAL IV PRN (10:15)
[2020-02-13] MEDS ORDERED: NALBUPHINE HCL 10 MG/ML AMP (J2300) IV PRN (10:15)
[2020-02-13] MEDS ORDERED: METOCLOPRAMIDE INJ 10MG/2ML VIAL (J2765 PER 1) IV PRN (10:15)
[2020-02-13] MEDS ORDERED: NALOXONE INJ 0.4MG/1ML VIAL (J2310 PER 1MG) IV PRN (10:15)
[2020-02-13] MEDS ORDERED: LR 1,000 ML IV SCH (10:15)
[2020-02-13] MEDS: PERCOCET 5MG/325MG TAB PO PRN ×2 (10:18→10:48)
[2020-02-13] MEDS: HYDROMORPHONE HCL 0.5 MG/ 0.5 ML SYRINGE (J1170 PER 1) IV PRN ×4 (10:20→10:48)
[2020-02-13] MEDS ORDERED: HYDROMORPHONE HCL 0.5 MG/ 0.5 ML SYRINGE (J1170 PER 1) As Ordered ONE (10:27)
[2020-02-13] MEDS ORDERED: IBUPROFEN 600MG TAB PO PRN (10:45)
[2020-02-13] MEDS: MORPHINE 4 MG/ML 1ML VIAL/SYRINGE (J2270) IV PRN ×4 (10:58→11:30)
[2020-02-13] MEDS ORDERED: MORPHINE 10 MG/ML 1ML VIAL (J2270) As Ordered ONE (11:40)
[2020-02-13] MEDS: diphenhydrAMINE 50MG/ML VIAL (J1200) IV PRN ×2 (11:46→20:31)
[2020-02-13] MEDS ORDERED: PROMETHAZINE INJ 25 MG/ML VIAL (J2550) As Ordered ONE (11:51)
[2020-02-13] MEDS ORDERED: MORPHINE 4 MG/ML 1ML VIAL/SYRINGE (J2270) IV SCH (12:00)
[2020-02-13] MEDS ORDERED: PROMETHAZINE INJ 25 MG/ML VIAL (J2550) IV ONE (12:00)
[2020-02-13] MEDS ORDERED: GABAPENTIN 100 MG CAP PO SCH (21:00)
[2020-02-13] MEDS ORDERED: lamoTRIgine 100MG TAB PO SCH (21:00)
[2020-02-13] MEDS ORDERED: AMITRIPTYLINE 25 MG TAB PO SCH (21:00)
[2020-02-13] MEDS ORDERED: levETIRAcetam 250MG TABLET (KEPPRA) PO SCH (21:00)
[2020-02-14 02:01] VITALS: BP 125/80
[2020-02-14 05:39] LABS: HEMATOCRIT 32.5 % (36.0-47.0); MEAN CORPUSCULAR HEMOGLOBIN 27.5 pg (27.0-33.0); MEAN CORPUSCULAR HGB CONC 31.7 g/dl (32.0-36.5); MEAN CORPUSCULAR VOLUME 86.7 fl (80.0-96.0); PLATELET COUNT, AUTOMATED 176 10^3/uL (150-450); RED BLOOD COUNT 3.75 10^6/uL (4.00-5.40); WHITE BLOOD COUNT 9.1 10^3/uL (4.0-10.0)
[2020-02-14 05:44] VITALS: BP 124/81
[2020-02-14 05:44] LABS: HEMOGLOBIN 10.3 g/dl (12.0-15.5)
[2020-02-14] MEDS ORDERED: NORCO, ANEXSIA 5/325MG TABLET (HYDROcodone/ACETAMINOPHEN) PO PRN (06:00)
--- NOTE | 2020-02-14 09:22 | RO ---
DATE OF OPERATION: 02/13/2020 PREOPERATIVE DIAGNOSIS/INDICATIONS FOR SURGERY: Pain, bleeding, failed conservative methods including Nexplanon. POSTOPERATIVE DIAGNOSIS: Pain, bleeding, failed conservative methods including Nexplanon. PROCEDURE: Total vaginal hysterectomy, separate surgical site removal of Nexplanon. SURGEON: Shruti Briones MD TRANSACTION ADVISORY SERVICES MANAGER: None. ANESTHESIA: General endotracheal anesthesia. BRIEF DESCRIPTION OF PROCEDURE AND FINDINGS: The patient was brought to the operating room where sufficient general endotracheal anesthesia was induced. She was prepped, draped, positioned in the usual sterile fashion with the bladder emptied, weighted speculum placed and anterior [place] retractor placed. A circumferential incision placed around the base of the cervix. The cardinal ligaments were then isolated, clamped with De Salas clamps and transected using the Supercut scissors. They were then sutured using #0 Vicryl suture which was used throughout this portion of the case. The posterior reflection of the peritoneum was then entered. The uterosacrals clamped, transected and ligated and held for later reconnection to the cuff. The anterior dissection was continued to create the bladder flap. Uterine vasculature was carefully clamped, transected and ligated in sequential fashion along the lateral aspect of the uterus. This patient has a previous salpingectomy already so when we reached the level of the round ligaments and top of the broad we then delivered the uterus and of course did not have any attached tubes because they were already gone. We then inspected both angle stitches. There was a little oozing on the right side so this was oversewn and that corrected and resulted in good hemostasis. With the cuff and pedicles carefully evaluated good hemostasis confirmed. The cuff was then closed with two portions of running locked stitch of #0 Vicryl, again with good hemostasis and approximation achieved and of course with incorporation of the uterosacrals for long-term support in this 29-year-old. We then placed a Baumann having completed the vaginal hysterectomy portion of the case. Changing gloves, etc, we moved to the new surgical site on the inner aspect of the patients left arm where her Nexplanon was. This was prepped, carefully incised with an 11-blade. The hemostat was used to bring up the Nexplanon. The scarring incised enough to allow delivery of the Nexplanon and after this had been removed the wound was closed with 5-0 Vicryl, good approximation and hemostasis achieved. Dry, sterile dressings were applied. Estimated blood loss for the entire of both procedures was 85 mL. Fluid replacement was Crystalloid. COMPLICATIONS: None. CONDITION AND DISPOSITION: The patient tolerated the procedure well and was recovering in the recovery room in good condition. AZUCENA
== END 2020-02-14 08:15 | disposition home or self-care (01) ==
LOC: M SDC 05:55 → M MS5PR 13:35 → M SDC 02-14 08:15
PROVIDERS: ATTEND Obstetrics & Gynecology
DX: R10.2 Pelvic and perineal pain (principal); N93.9 Abnormal uterine and vaginal bleeding, unspecified; E03.9 Hypothyroidism, unspecified; G40.909 Epilepsy, unspecified, not intractable, without status epilepticus; J45.909 Unspecified asthma, uncomplicated; Z79.899 Other long term (current) drug therapy; K21.9 Gastro-esophageal reflux disease without esophagitis; Z91.041 Radiographic dye allergy status; Z88.5 Allergy status to narcotic agent; Z91.040 Latex allergy status
CPT/HCPCS: 11976; 36415; 58260; 85027; 86850; 86900; 86901; 88307; 96374; 96375; J0131; J0690; J1100; J1170; J1200; J1885; J2250; J2270; J2370; J2405; J3010

== ENCOUNTER 2020-02-16 06:19 | Inpatient (IN) | payer MEDICAID ==
[~2020-02-16] VITALS: Ht 165.1 cm; Wt 71.7 kg
[2020-02-16] MEDS ORDERED: LIDOCAINE 2% 5ML JELLY UROJET TOP ONE (06:45)
[2020-02-16] MEDS ORDERED: MORPHINE 4 MG/ML 1ML VIAL/SYRINGE (J2270) IV ONE (07:15)
[2020-02-16 07:38] LABS: BASO % 0.3 % (0.0-1.0); EOS # 0.1 10^3/uL (0.0-0.5); EOS % 2.4 % (0.0-3.0); HEMATOCRIT 37.8 % (36.0-47.0); LYMPH % 17.6 % (24.0-44.0); MEAN CORPUSCULAR HEMOGLOBIN 27.4 pg (27.0-33.0); MEAN CORPUSCULAR HGB CONC 31.7 g/dl (32.0-36.5); MEAN CORPUSCULAR VOLUME 86.3 fl (80.0-96.0); MONO # 0.4 10^3/uL (0.0-0.8); NEUTROPHILS # 4.3 10^3/uL (1.5-8.5); NEUTROPHILS % 73.5 % (36.0-66.0); PLATELET COUNT, AUTOMATED 194 10^3/uL (150-450); RED BLOOD COUNT 4.38 10^6/uL (4.00-5.40); WHITE BLOOD COUNT 5.9 10^3/uL (4.0-10.0)
[2020-02-16 07:58] LABS: BLOOD UREA NITROGEN 9 MG/DL (7-18); CALCIUM LEVEL 8.5 MG/DL (8.5-10.1); CARBON DIOXIDE LEVEL 28 MEQ/L (21-32); CHLORIDE LEVEL 107 MEQ/L (98-107); CREATININE FOR GFR 0.78 MG/DL (0.55-1.30); GLOMERULAR FILTRATION RATE > 60.0 (>60); GLUCOSE, FASTING 84 MG/DL (70-100); POTASSIUM SERUM 5.3 MEQ/L (3.5-5.1); SODIUM LEVEL 139 MEQ/L (136-145)
[2020-02-16] MEDS ORDERED: KETOROLAC 30 MG/ML 1ML VIAL IV ONE (08:15)
[2020-02-16] MEDS ORDERED: NS 1,000 ML IV ONE (08:45)
[2020-02-16] MEDS ORDERED: ONDANSETRON 4MG/2ML VIAL IV ONE (08:45)
[2020-02-16] MEDS: HYDROMORPHONE HCL 0.5 MG/ 0.5 ML SYRINGE (J1170 PER 1) IV PRN ×2 (08:50→10:29)
--- NOTE | 2020-02-16 09:22 | REP ---
INDICATION: post op pain, urinary retention s/p hysterectomy COMPARISON: Comparison CT study January 29, 2020.. TECHNIQUE: Helical scanning is acquired in 4 mm axial images were reformatted. Coronal and sagittal MPR images were generated and reviewed. FINDINGS: Digital preliminary manager infrastructure radiograph demonstrates moderate stool. Bowel gas pattern is otherwise unremarkable. Lung bases are clear on axial CT images. The liver and the spleen are normal in size homogeneous in texture. There is a small accessory splenule again noted in the left upper quadrant. No abnormality is visible in the pancreas or the gallbladder. Moderate stool and gas are seen throughout the colon. There are air-filled loops of small bowel in the mid abdomen. Air-filled noninflamed appendix is seen in the right lower quadrant. Stool and gas are noted in the rectum. No obstructive lesion is seen. Baumann catheter is seen in place. Uterus is surgically absent. There is mild postoperative edema in the soft tissues at the level of the vaginal cuff. There is a cyst in the right adnexa measuring 2.5 cm in diameter. There is no evidence of abscess or free intraperitoneal air. No abdominal wall defect is seen. Bone window settings show no significant bony abnormality. IMPRESSION: Baumann catheter in place. Post hysterectomy. Some postoperative edema at and adjacent to the vaginal cuff. 2.5 cm cyst right adnexa. No abnormal fluid collection. Moderate colonic stool. There are a few air dilated jejunal loops question ileus. No other acute abdominal abnormality. <Electronically signed by Andrea Ramesh > 02/16/20 [id number]
--- NOTE | 2020-02-16 12:46 | REP ---
INDICATION: right adenexal pain, ovarian cyst r/o torsion. Status post hysterectomy. Urinary retention. COMPARISON: Comparison is made with today's CT study of the abdomen and pelvis.. TECHNIQUE: Transabdominal scanning was performed. FINDINGS: Uterus is surgically absent. No free fluid is seen in the cul-de-sac. Visualized bladder manning are smooth. There is a Baumann catheter in the urinary bladder. The right ovary has dimensions of 5.0 x 2.7 x 3.6 cm. It's Doppler flow is normal with a resistive index of 0.58. There is a cystic area in the right ovary measuring 3.1 x 2.1 x 1.9 cm. The left ovary was not seen. No left adnexal mass or cyst is seen. No free fluid is seen.. IMPRESSION: 3.1 cm cyst in the right ovary. Left ovary not directly visualized. No free fluid or mass seen. Baumann catheter in place.. <Electronically signed by Andrea Ramesh > 02/16/20 [id number]
[2020-02-16] MEDS ORDERED: HYDR-4571 PO (14:38)
[2020-02-16] MEDS ORDERED: IBUP-1022 PO (14:40)
--- NOTE | 2020-02-16 14:44 | HPEPDOC ---
[facility] Medical History & Physical Date of Admission Feb 16, 2020 Date of Service: Feb 16, 2020 Other Provider Shruti Briones MD Attending Physician: SANDEEP WHYTE MD History and Physical CHIEF COMPLAINT: severe pelvic pain HISTORY OF PRESENT ILLNESS: 29 yo female POD#3 s/p TVH presents with onset of severe pain in the pelvic region which woke her up this morning. The pain is constant, diffuse, 10/10 intensity. She was unable to empty her bladder after the pain started. No bowel movement since surgery. She is eating without difficulty. No significant nausea. No fevers. No vaginal bleeding. PAST MEDICAL HISTORY: 1. Seizure disorder. 2. Hodgkin's Disease s/p chemo/Bone marrow transplant, remission since 2012. 3. hypothyroidism 4. Asthma 5. Interstitial cystitis 6. Diverticulosis PAST SURGICAL HISTORY: 1. TVH 02/13/2020. 2. biopsy neck lesion 2010. 3. Bone marrow transplant 2014 4. Pericardial window 2010 5. Adenoidectomy SOCIAL HISTORY: Marital status: FOB is her caregiver. Resides in: [place] Children: no Tobacco use:yes Illicit drug use: no FAMILY HISTORY: Father: Seizure disorder Mother: cervical cancer ALLERGIES: Fentanyl, latex, CT dye REVIEW OF SYSTEMS: Negative except what is already mentioned HOME MEDICATIONS: Symbicort 160/4.5 BID prn Amitryptiline Gabapentin 100 mg BID Levothyroxine 175 mg qd Pantoprazole 40 mg qd Keppra 750 mg BID Lamictal 200 mg BID. Albuterol PHYSICAL EXAMINATION: VITAL SIGNS: Temperature 146/90, pulse 123, respiratory rate 14 GENERAL APPEARANCE: Appears uncomfortale. HEENT: NCAT, WNL. CARDIOVASCULAR: RRR. LUNGS: CTA. ABDOMEN: Soft, minimally tender, ND. MUSCULOSKELETAL: Exquisite tenderness to palpation over pubic symphysis. EXTREMITIES: NT. NEUROLOGICAL: CN's II-XII intact. PSYCHIATRIC: A=O x 3. LABORATORY DATA: See below. 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 . PLAN: 1. Admit for pain control 2. Ice pack to pubic joint 3. Baumann catheter to gravity 4 Consider physical therapy consult if no improvement 5. Consider steroid injection into pubic joint (will consult orthopedics or pain management for this) Vital Signs Vital Signs Date Time Temp Pulse Resp B/P (MAP) Pulse Ox O2 Delivery O2 Flow Rate FiO2 02/16/20 12:30 123 20 146/98 (114) 95 Room Air 02/16/20 10:45 98.4 Laboratory Data Labs 24H Laboratory Tests 2 02/16/20 07:22: Immature Granulocyte % (Auto) 0.2, Neutrophils (%) (Auto) 73.5H, Lymphocytes (%) (Auto) 17.6L, Monocytes (%) (Auto) 6.0H, Eosinophils (%) (Auto) 2.4, Basophils (%) (Auto) 0.3, Neutrophils # (Auto) 4.3, Lymphocytes # (Auto) 1.0L, Monocytes # (Auto) 0.4, Eosinophils # (Auto) 0.1, Basophils # (Auto) 0.0, Nucleated Red Blood Cells % (auto) 0.0, Anion Gap 4L, Glomerular Filtration Rate > 60.0, Calcium Level 8.5 02/16/20 07:49: Urine Color YELLOW, Urine Appearance HAZY, Urine pH 7.0, Urine Specific [place] 1.016, Urine Protein NEGATIVE, Urine Glucose (UA) NEGATIVE, Urine Ketones NEGATIVE, Urine Blood 1+H, Urine Nitrite NEGATIVE, Urine Bilirubin NEGATIVE, Urine Urobilinogen 0.2, Urine Leukocyte Esterase NEGATIVE, Urine WBC (Auto) 1, Urine RBC (Auto) 6H, Urine Hyaline Casts (Auto) 0, Urine Bacteria (Auto) 1+H, Urine Squamous Epithelial Cells 1, Urine Amorphous Sediment SMALLH, Urine Mucus (Auto) SMALL, Urine Sperm (Auto) CBC/BMP Laboratory Tests 02/16/20 07:22 Home Medications Scheduled Amitriptyline HCl (Amitriptyline HCl) 25 Mg Tablet, 25 MG PO BID Gabapentin (Gabapentin) 100 Mg Capsule, 100 MG PO BID Lamotrigine (Lamictal) 200 Mg Tab, 200 MG PO BID Levetiracetam (Keppra) 750 Mg Tablet, 750 MG PO BID Levothyroxine Sodium (Levoxyl) 175 Mcg Tablet, 175 MCG PO DAILY Scheduled PRN Albuterol Sulfate (Proair Hfa) 8.5 Gm Hfa.aer.ad, 2 PUFF INH Q6H PRN for SOB/WHEEZING Allergies Coded Allergies: Iodinated Contrast Media (Verified Allergy, Severe, STOPS BREATHING, 02/16/20) latex (Verified Allergy, Severe, " everything reacts" , 02/16/20) fentanyl (Verified Allergy, Intermediate, hives, 02/16/20) A-FIB/CHADSVASC A-FIB History Current/History of A-Fib/PAF?: No Current PO Anticoag Therapy: No Age/Risk Factor Scoring CHADSVASC: CHADSVASC Response (Comments) Value Age Risk Factor Age < 65 years old 0 Gender Risk Factor Female 1 Hx of CHF No 0 Hx of HTN No 0 Hx of Stroke/TIA/or VTE No 0 Hx of Diabetes No 0 Hx of Vascular Disease No 0 Total 1 Treatment Treatment ordered: NONE SANDEEP WHYTE MD Feb 16, 2020 14:44
[2020-02-16 16:40] VITALS: BP 136/93
[2020-02-16] MEDS ORDERED: ONDANSETRON 4 MG TAB PO PRN (17:00)
[2020-02-16] MEDS: PERCOCET 5MG/325MG TAB PO PRN ×2 (18:31→22:35)
[2020-02-16] MEDS: KETOROLAC 30 MG/ML 1ML VIAL IV PRN (20:03)
[2020-02-16] MEDS: DOCUSATE SODIUM 100 MG CAP PO SCH (20:03)
[2020-02-16] MEDS ORDERED: ALBUTEROL 90 MCG/ACT 8GM HFA INHALER INH PRN (20:15)
[2020-02-16 22:00] VITALS: BP 133/91
[2020-02-16] MEDS: AMITRIPTYLINE 25 MG TAB PO SCH (22:33)
[2020-02-16] MEDS: levETIRAcetam 250MG TABLET (KEPPRA) PO SCH (22:33)
[2020-02-16] MEDS: lamoTRIgine 100MG TAB PO SCH (22:33)
[2020-02-16] MEDS: GABAPENTIN 100 MG CAP PO SCH (22:33)
[2020-02-17] MEDS: KETOROLAC 30 MG/ML 1ML VIAL IV PRN ×3 (02:42→20:42)
[2020-02-17] MEDS: PERCOCET 5MG/325MG TAB PO PRN ×3 (04:30→15:20)
[2020-02-17 06:00] VITALS: BP 132/91
[2020-02-17] MEDS: LEVOTHYROXINE 150MCG TABLET (0.15MG) PO SCH (06:07)
[2020-02-17 06:24] LABS: HEMATOCRIT 35.9 % (36.0-47.0); HEMOGLOBIN 11.2 g/dl (12.0-15.5); MEAN CORPUSCULAR HEMOGLOBIN 27.1 pg (27.0-33.0); MEAN CORPUSCULAR HGB CONC 31.2 g/dl (32.0-36.5); MEAN CORPUSCULAR VOLUME 86.9 fl (80.0-96.0); PLATELET COUNT, AUTOMATED 181 10^3/uL (150-450); RED BLOOD COUNT 4.13 10^6/uL (4.00-5.40); WHITE BLOOD COUNT 5.1 10^3/uL (4.0-10.0)
[2020-02-17 06:50] LABS: ALBUMIN 3.5 GM/DL (3.2-5.2); ALT/SGPT 13 U/L (12-78); BILIRUBIN,TOTAL 0.3 MG/DL (0.2-1.0); BLOOD UREA NITROGEN 10 MG/DL (7-18); CALCIUM LEVEL 8.6 MG/DL (8.5-10.1); CARBON DIOXIDE LEVEL 26 MEQ/L (21-32); CHLORIDE LEVEL 109 MEQ/L (98-107); GLOMERULAR FILTRATION RATE > 60.0 (>60); GLUCOSE, FASTING 77 MG/DL (70-100); POTASSIUM SERUM 4.3 MEQ/L (3.5-5.1); SODIUM LEVEL 139 MEQ/L (136-145); TOTAL PROTEIN 6.9 GM/DL (6.4-8.2)
[2020-02-17] MEDS: SYMBICORT 160/4.5MCG INHALER 6GM INH SCH ×2 (07:36→20:00)
[2020-02-17] MEDS: GABAPENTIN 100 MG CAP PO SCH ×2 (08:29→20:36)
[2020-02-17] MEDS: levETIRAcetam 250MG TABLET (KEPPRA) PO SCH ×2 (08:29→20:37)
[2020-02-17] MEDS: DOCUSATE SODIUM 100 MG CAP PO SCH ×2 (08:29→20:36)
[2020-02-17] MEDS: lamoTRIgine 100MG TAB PO SCH ×2 (08:29→20:36)
[2020-02-17] MEDS ORDERED: FLEET ENEMA PR ONE ×2 (09:45→19:30)
--- NOTE | 2020-02-17 10:29 | IPNPDOC ---
Text Note Date of Service The patient was seen on 02/17/20. NOTE Consult put in per recommendation from Dr. Hernandez to pain management. Consult requested for Dr. Manuel for steroid injections into the pubic joint for osteitis pubis. Per Dr. Paz's partner he will not come to do injections in the hospital nor bring her to the department for injections. This is due to COVID and due to her being postoperative. Their concern is infection and postoperative edema. Dr. Conteh who is my backup today was notified. VS,Fishbone, I+O VS, Fishbone, I+O Laboratory Tests 02/17/20 06:05 Vital Signs Date Time Temp Pulse Resp B/P (MAP) Pulse Ox O2 Delivery O2 Flow Rate FiO2 02/17/20 08:59 17 Room Air 02/17/20 06:00 97.7 106 132/91 (105) 100 I&O- Last 24 Hours up to 6 AM 02/17/20 06:00 Intake Total 1735 ml Output Total 2300 ml Balance -565 ml LYNNE PAULSON CNM Feb 17, 2020 10:29
[2020-02-17] MEDS ORDERED: MOM 30ML SUSPENSION UDC PO ONE ×2 (12:15→19:30)
[2020-02-17] MEDS ORDERED: MORPHINE 2 MG/ML 1ML VIAL (J2270) IV ONE (12:15)
[2020-02-17 14:00] VITALS: BP 125/74
[2020-02-17] MEDS ORDERED: FLEET ENEMA PR PRN (20:15)
--- NOTE | 2020-02-17 20:26 | IPNPDOC ---
Text Note Date of Service The patient was seen on 02/17/20. NOTE Subjective: Serena is a 29-year-old female who was admitted for postoperative pain. She had a TVH 4 days ago on 02/13/[address] Briones. She reports abdominal pain and pubic bone pain and rates it a 10/10. She has had a K-pad, ice pack, Toradol, Percocet and Morphine which says does not touch her pain. She reports no nausea and has been able to eat full meals for breakfast, lunch and dinner. She has not had a bowel movement despite a fleets enema and MOM. She had her valentin catheter out a few hours ago and reports she hasn't voided yet. Objective: VS see below. VS are stable. A+O x3. Respiratory: regular rate and no use of accessory muscles. Abdomen: no distension and minimal discomfort with palpation. Minimal discomfort to pubic bone with palpation. Scant amount of dark discharge note on pad. Assessment: Day 4 postoperative from TVH, postoperative pain, rule out bowel obstruction Plan: Plan of care collaborated with Dr. Conteh. Reviewed plan of care with naresh quigley. We will continue to monitor her pain and are waiting for her to have a bowel movement. Will do a fleets enema again and if no bowel movement in 1-2 hours we will do MOM. If no bowel movement by am will do another CT and consider obstruction or ileus. Will reassess her pain after bowel movement. VS,Fishbone, I+O VS, Fishbone, I+O Laboratory Tests 02/17/20 06:05 Vital Signs Date Time Temp Pulse Resp B/P (MAP) Pulse Ox O2 Delivery O2 Flow Rate FiO2 02/17/20 15:50 17 Room Air 02/17/20 14:00 97.2 109 125/74 (91) 100 I&O- Last 24 Hours up to 6 AM 02/17/20 06:00 Intake Total 1735 ml Output Total 2300 ml Balance -565 ml LYNNE PAULSON CNM Feb 17, 2020 20:26
[2020-02-17] MEDS: AMITRIPTYLINE 25 MG TAB PO SCH (20:36)
[2020-02-17 22:00] VITALS: BP 119/77
[2020-02-18] MEDS: LEVOTHYROXINE 150MCG TABLET (0.15MG) PO SCH (05:45)
[2020-02-18 06:00] VITALS: BP 112/74
[2020-02-18] MEDS: SYMBICORT 160/4.5MCG INHALER 6GM INH SCH (08:13)
[2020-02-18] MEDS: GABAPENTIN 100 MG CAP PO SCH (09:20)
[2020-02-18] MEDS: levETIRAcetam 250MG TABLET (KEPPRA) PO SCH (09:20)
[2020-02-18] MEDS: lamoTRIgine 100MG TAB PO SCH (09:20)
[2020-02-18] MEDS: DOCUSATE SODIUM 100 MG CAP PO SCH (09:20)
== END 2020-02-18 12:54 | disposition home or self-care (01) | DRG 861 ==
LOC: M ED 06:19 → M ED INP 13:47 → ENRESERV 15:21 → M MSPAV 16:35
PROVIDERS: ADMIT Specialist; ATTEND Obstetrics & Gynecology
DX: G89.18 Other acute postprocedural pain (principal); E03.9 Hypothyroidism, unspecified; G40.909 Epilepsy, unspecified, not intractable, without status epilepticus; R10.2 Pelvic and perineal pain; J45.909 Unspecified asthma, uncomplicated; Z90.710 Acquired absence of both cervix and uterus; Z79.899 Other long term (current) drug therapy; Z91.040 Latex allergy status; Z88.8 Allergy status to other drugs, medicaments and biological substances; Z88.5 Allergy status to narcotic agent

== ENCOUNTER 2020-02-20 08:34 | Emergency (ER) | payer MEDICAID ==
[~2020-02-20] VITALS: Ht 165.1 cm; Wt 68.2 kg
[~2020-02-20 08:34] MED LIST changes: +IBUP-1022 PO
[2020-02-20] MEDS ORDERED: NS 1,000 ML IV ONE (09:30)
[2020-02-20 09:40] LABS: BASO % 0.3 % (0.0-1.0); EOS # 0.1 10^3/uL (0.0-0.5); EOS % 0.5 % (0.0-3.0); HEMATOCRIT 38.5 % (36.0-47.0); HEMOGLOBIN 12.3 g/dl (12.0-15.5); LYMPH # 0.8 10^3/uL (1.5-5.0); LYMPH % 7.2 % (24.0-44.0); MEAN CORPUSCULAR HGB CONC 31.9 g/dl (32.0-36.5); MEAN CORPUSCULAR VOLUME 87.5 fl (80.0-96.0); MONO # 0.4 10^3/uL (0.0-0.8); MONO % 3.2 % (0.0-5.0); NEUTROPHILS # 10.3 10^3/uL (1.5-8.5); NEUTROPHILS % 88.5 % (36.0-66.0); PLATELET COUNT, AUTOMATED 224 10^3/uL (150-450); WHITE BLOOD COUNT 11.6 10^3/uL (4.0-10.0)
--- NOTE | 2020-02-20 10:04 | REP ---
INDICATION: pelvic pain s/p hysterectomy. COMPARISON: 02/16/2020. TECHNIQUE: Transabdominal scanning were performed. The patient could not tolerate transvaginal imaging. FINDINGS: The patient has had a hysterectomy. The ovaries could not be visualized. Bladder measures 4.6 x 4.8 x 8.2 cm. Possible cystic structure in the right adnexa is questionably seen, as was present on prior study of 02/16/2020. No gross free fluid is seen. IMPRESSION: Limited exam due to underdistended bladder and patient unable to tolerate transvaginal imaging. Status post hysterectomy. Ovaries could not be visualized. No gross free fluid. Possible cystic structure right adnexa questionably visualized as on prior study of 02/16/2020. <Electronically signed by Bartolo Dorado > 02/20/20 1000
[2020-02-20 10:10] LABS: ALBUMIN 4.2 GM/DL (3.2-5.2); ALT/SGPT 15 U/L (12-78); BILIRUBIN,DIRECT < 0.1 MG/DL (0.0-0.2); BILIRUBIN,TOTAL 0.4 MG/DL (0.2-1.0); BLOOD UREA NITROGEN 14 MG/DL (7-18); CALCIUM LEVEL 9.2 MG/DL (8.5-10.1); CARBON DIOXIDE LEVEL 26 MEQ/L (21-32); CHLORIDE LEVEL 107 MEQ/L (98-107); CREATININE FOR GFR 0.84 MG/DL (0.55-1.30); GLOMERULAR FILTRATION RATE > 60.0 (>60); GLUCOSE, FASTING 93 MG/DL (70-100); LIPASE 209 U/L (73-393); POTASSIUM SERUM 4.2 MEQ/L (3.5-5.1); SODIUM LEVEL 138 MEQ/L (136-145); TOTAL PROTEIN 7.6 GM/DL (6.4-8.2)
--- NOTE | 2020-02-20 11:27 | REP ---
INDICATION: lower abd pain s/p hysterectomy COMPARISON: Comparison CT study February 16, 2020.. TECHNIQUE: Helical scanning is acquired in 4 mm axial images were reformatted. Coronal and sagittal MPR images were generated and reviewed. FINDINGS: Preliminary digital gas station clerk radiograph shows a few loops of air-filled small bowel in the central abdomen. There is a large amount of colonic stool. The lung bases are clear on axial CT images. Liver and the spleen remain normal in size homogeneous in texture. No abnormality is noted in the pancreas or the gallbladder. Normal adrenal glands. Kidneys are morphologically intact and no hydronephrosis is seen. No calculus is observed. No retroperitoneal mass or adenopathy. A normal appendix is seen filled with air. Moderate formed stool throughout the colon. Pelvic CT images show no evidence of pelvic hematoma or mass lesion. Small cystic area is visible in the right ovary decreased in right to left dimension from the February 16, 2020 study. Still 2.4 cm in anteroposterior span. Urinary bladder is intact. No bony abnormality. There are mildly dilated air-filled jejunal loops in the central abdomen similar to the prior study. IMPRESSION: Large amount of formed stool throughout the colon question constipation. There are few air-filled mildly dilated jejunal loops in the upper central abdomen as before. No evidence of pelvic hematoma or mass. Small right ovarian cyst decreased slightly in size from the prior study. Normal appendix. Otherwise negative. Uterus surgically absent. <Electronically signed by Andrea Ramesh > 02/20/20 2814
[2020-02-20] MEDS ORDERED: MORPHINE 4 MG/ML 1ML VIAL/SYRINGE (J2270) IV ONE (11:45)
[2020-02-20] MEDS ORDERED: KETOROLAC 30 MG/ML 1ML VIAL IV ONE (12:45)
[2020-02-20 13:43] LABS: CHLAMYDIA DNA AMPLIFICATION NEGATIVE (NEGATIVE); GC DNA AMPLIFICATION NEGATIVE (NEGATIVE)
[2020-02-20] MEDS ORDERED: diphenhydrAMINE 25MG CAP PO ONE (13:45)
[2020-02-20] MEDS ORDERED: MAGNESIUM CITRATE 300 ML BTL PO ONE (13:45)
[2020-02-20] MEDS ORDERED: MIRA3350 PO (14:58)
[2020-02-20] MEDS ORDERED: MACR100C43 PO (14:58)
[2020-02-20] MEDS ORDERED: COLA100C5 PO (14:58)
[2020-02-20] MEDS ORDERED: METR1GEL7 PV (14:58)
[2020-02-20 15:13] VITALS: BP 133/79
== END 2020-02-20 15:14 | disposition home or self-care (01) ==
LOC: M ED 08:34 → EDBD 08:34 → M ED 15:14
DX: N76.0 Acute vaginitis (principal); N39.0 Urinary tract infection, site not specified; G89.18 Other acute postprocedural pain; Z90.711 Acquired absence of uterus with remaining cervical stump; N83.201 Unspecified ovarian cyst, right side; G40.909 Epilepsy, unspecified, not intractable, without status epilepticus; E03.9 Hypothyroidism, unspecified; J45.909 Unspecified asthma, uncomplicated; K57.90 Diverticulosis of intestine, part unspecified, without perforation or abscess without bleeding; Z85.71 Personal history of Hodgkin lymphoma; Z94.81 Bone marrow transplant status; Z92.21 Personal history of antineoplastic chemotherapy; Z91.041 Radiographic dye allergy status; Z91.040 Latex allergy status; Z88.5 Allergy status to narcotic agent
CPT/HCPCS: 74176; 76856; 80048; 80076; 81001; 83605; 83690; 85025; 87088; 87186; 87210; 87661; 96361; 96374; 96375; 99284; J1885; J2270

== ENCOUNTER 2020-02-23 07:15 | Emergency (ER) | payer MEDICAID ==
[~2020-02-23] VITALS: Ht 165.1 cm; Wt 74.1 kg
[~2020-02-23 07:15] MED LIST changes: +COLA100C5 PO; +METR1GEL7 PV
[2020-02-23] MEDS ORDERED: METR-265 PO (07:49)
[2020-02-23 08:22] LABS: BASO % 0.3 % (0.0-1.0); EOS # 0.1 10^3/uL (0.0-0.5); EOS % 0.8 % (0.0-3.0); HEMATOCRIT 37.4 % (36.0-47.0); HEMOGLOBIN 11.7 g/dl (12.0-15.5); LYMPH # 1.2 10^3/uL (1.5-5.0); LYMPH % 20.3 % (24.0-44.0); MEAN CORPUSCULAR HEMOGLOBIN 27.1 pg (27.0-33.0); MEAN CORPUSCULAR HGB CONC 31.3 g/dl (32.0-36.5); MEAN CORPUSCULAR VOLUME 86.6 fl (80.0-96.0); MONO # 0.3 10^3/uL (0.0-0.8); NEUTROPHILS # 4.4 10^3/uL (1.5-8.5); NEUTROPHILS % 73.4 % (36.0-66.0); PLATELET COUNT, AUTOMATED 245 10^3/uL (150-450); RED BLOOD COUNT 4.32 10^6/uL (4.00-5.40)
[2020-02-23 08:37] LABS: AMPHETAMINES LEVEL URINE NEGATIVE (NEGATIVE); BARBITURATES URINE NEGATIVE (NEGATIVE); BENZODIAZEPINES URINE NEGATIVE (NEGATIVE); CANNABINOIDS URINE NEGATIVE (NEGATIVE); COCAINE METABOLITE URINE NEGATIVE (NEGATIVE); METHADONE URINE NEGATIVE (NEGATIVE); OPIATES URINE POSITIVE (NEGATIVE); PHENCYCLIDINE URINE NEGATIVE (NEGATIVE)
[2020-02-23 08:47] LABS: BLOOD UREA NITROGEN 13 MG/DL (7-18); CALCIUM LEVEL 8.8 MG/DL (8.5-10.1); CARBON DIOXIDE LEVEL 26 MEQ/L (21-32); CHLORIDE LEVEL 108 MEQ/L (98-107); CPK CREATINE PHOSPHOKINASE 55 U/L (26-192); CREATININE FOR GFR 0.76 MG/DL (0.55-1.30); FREE T4 1.02 NG/DL (0.76-1.46); GLOMERULAR FILTRATION RATE > 60.0 (>60); GLUCOSE, FASTING 94 MG/DL (70-100); POTASSIUM SERUM 4.1 MEQ/L (3.5-5.1); SODIUM LEVEL 140 MEQ/L (136-145)
[2020-02-23 10:00] VITALS: BP 115/71
--- NOTE | 2020-02-24 09:39 | ECGEPIP ---
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
== END 2020-02-23 10:47 | disposition home or self-care (01) ==
LOC: M ED 07:15 → EDBD 07:15 → M ED 10:47
DX: R25.8 Other abnormal involuntary movements (principal); R00.0 Tachycardia, unspecified; G40.909 Epilepsy, unspecified, not intractable, without status epilepticus; F44.5 Conversion disorder with seizures or convulsions; E07.9 Disorder of thyroid, unspecified; J45.909 Unspecified asthma, uncomplicated; Z85.71 Personal history of Hodgkin lymphoma; Z94.81 Bone marrow transplant status; Z92.21 Personal history of antineoplastic chemotherapy; Z91.041 Radiographic dye allergy status; Z91.040 Latex allergy status; Z88.5 Allergy status to narcotic agent; Z79.899 Other long term (current) drug therapy

== ENCOUNTER → 2020-02-25 | Outpatient (REF) | payer MEDICAID ==
[~2020-02-25] MED LIST changes: +METR-265 PO
== END ==
LOC: M SFHCPLAZ 14:48
PROVIDERS: ATTEND Physician Assistant Medical
DX: E16.2 Hypoglycemia, unspecified (principal); G40.909 Epilepsy, unspecified, not intractable, without status epilepticus

== ENCOUNTER → 2020-03-06 | Outpatient (CLI) | payer MEDICAID ==
--- NOTE | 2020-03-10 07:16 | SLEEPCENT ---
DATE: 03/06/2020 ORDERED BY: GARRET Frankel Nocturnal polysomnography was performed for evaluation of sleep physiology in this patient with a history of excessive somnolence. 8 hours and 42 minutes of data were reviewed. There were 477 minutes of sleep identified. Sleep latency was normal at 4 minutes. REM latency was mildly delayed at 161 minutes. Sleep architecture was good with three to four REM cycles appreciated. Overall sleep efficiency was 93%. The electrocardiogram showed a sinus rhythm with small complexes. Average heart rate of 82 beats per minute, rate range 48-100. EEG showed normal waveforms for wake and sleep. There were no obstructive respiratory events seen. Snoring was noted. Minimal limb activity was appreciated and saturations remained normal. IMPRESSION: Normal nocturnal polysomnography with snoring. MTDD
== END ==
LOC: M SLEEP 20:00
PROVIDERS: ATTEND Nurse Practitioner Family
DX: R06.83 Snoring (principal)

== ENCOUNTER → 2020-03-20 | Outpatient (CLI) | payer MEDICAID ==
[2020-03-20 12:46] LABS: HEMOGLOBIN A1c 5.3 %
== END ==
LOC: M LAB 10:06
PROVIDERS: ATTEND Physician Assistant Medical
DX: G40.909 Epilepsy, unspecified, not intractable, without status epilepticus (principal); E16.2 Hypoglycemia, unspecified

== ENCOUNTER 2020-04-27 22:11 | Emergency (ER) | payer MEDICAID ==
[~2020-04-27] VITALS: Ht 162.6 cm; Wt 70.5 kg
[~2020-04-27 22:11] MED LIST changes: -AMIT25TA PO; +AMIT25TA17 PO; -DICY20TA PO; +DICY20TA3 PO
[2020-04-27 22:12] VITALS: BP 120/68
--- OUTSIDE RECORDS SUMMARY | 2020-04-27 22:18 | CCD | Continuity of Care Document ---
Author Author Serena BAKER Organization Unknown Address [address] [place] [address] Phone [phone] Care Team Providers Care Arborer Name Role Phone Nargis Shane MD AUT Unavailable Problems Active Problems Provider Date Seizure disorder Shruti Baker MD Onset: 02/01/2019 History of Hodgkin lymphoma Dari Tinsley WHNP Onset: 03/18 Chronic interstitial cystitis Dari Tinsley WHNP Onset: Social History Type Date Description Comments Sex Unknown Tobacco Use Start: Unknown Never Smoked Cigarettes Tobacco Use Start: Unknown Non-smoker, Non-drinker, Non-alejandro g User Smoking Status Reviewed: 01/31/20 Non-smoker, Non-drinker, Non- drug User Tobacco Use Start: Unknown Patient has never smoked Exercise Type/Frequency Does not exercise Allergies, Adverse Reactions, Alerts Active Allergies Reaction Severity Comments Date Latex 02/01/2019 Fentanyl 02/01/2019 Contrast Dye 02/01/2019 Medications Active Medications SIG Qnty Indications Ordering Provide r Date Celebrex 200mg Capsules 1 by mouth twice a day as needed for pain 50caps R10.2 Shruti Baker MD 020 Percocet 5-325mg Tablets 2 po q 4 hours prn pain 42tabs Shruti Baker MD 02/18/2020 Ibuprofen 600mg Tablets take one tablet by mouth every 6 hours as needed for pain 60tabs Shruti Baker MD 02/11/2020 Gabapentin 100mg Capsules Take 1 Capsule By Mouth Once On First Day, Then Increase To 1 Capsule Twice A Day 60caps Shruti Baker MD 04/24/2019 Amitriptyline HCL 25mg Tablets Take 1 Tablet By Mouth Twice Daily 60tabs Shruti Baker MD Keppra 750mg Tablets 1 Tablet Twice Daily Unknown Lamictal 200mg Tablets Twice Daily Unknown History Medications [place] 5-325mg Tablets 2 by mouth every 4 hours as needed pain 42tabs Shruti Baker MD 0 - 02/18/2020 Immunizations Description No Information Available Vital Signs Date Vital Result Comment 02/19/2020 2:55pm BP Systolic 106 mmHg BP Diastolic 60 mmHg 06/26/2019 10:24am BP Systolic 108 mmHg BP Diastolic 68 mmHg Results Description No Information Available Procedures Date Code Description Status 02/13/2020 59908 Hysterectomy Vaginal 250g Or Les s Completed Medical Devices Description No Information Available Encounters Type Date Location Provider Dx Diagnosis Office Visit 01/31/2020 11:15a [facility] [employer]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 Shruti Baker MD N9 2.1 Excessive and frequent menstruation with irregular cycle R10.2 Pelvic and perineal pain N94.4 Primary dysmenorrhea Assessments Date Code Description Provider 02/19/2020 R10.2 Pelvic and perineal pain Shruti Baker MD 02/13/2020 Z30.8 Encounter for other contraceptiv e management Shruti Baker MD 01/31/2020 N92.1 Excessive and frequent menstruat ion with irregular cycle Shruti Baker MD 01/31/2020 R10.2 Pelvic and perineal pain Shruti Baker MD 01/31/2020 N94.4 Primary dysmenorrhea Mildred Baker MD Plan of Treatment Future Appointment(s):* 03/25/2020 10:45 am - Shruti Baker MD at [facility] [employer]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
--- OUTSIDE RECORDS SUMMARY | 2020-04-27 22:18 | CCD ---
Author Author [facility] Organization [facility] Address Unknown Phone Unavailable Care Team Providers Care Psychologist Developmental Name Role Phone Nargis Shane Unavailable PROBLEMS Type Condition ICD9-CM Code JJN56-MY Code Onset Dates Condition S tatus SNOMED Code Notes Problem Hypothyroidism, unspecified type E03.9 Active 19049616 Problem Allergic rhinitis, unspecified seasonality, unspecifie d trigger J30.9 Active 18313117 Problem Hypoglycemia E16.2 Active 789987785 Problem Seizure disorder G40.909 Active 080080141 Problem History of hodgkin's lymphoma Z85.71 Active 47 5134964 Problem Decreased hearing of both ears H91.93 Active 1 09884659 Problem Asthma, unspecified asthma s everity, unspecified whether complicated, unspecified whether persistent J45.909 Active 12046 7001 Problem Interstitial cystitis N30.10 Active 392496449 Problem Raynaud's phenomenon without gangrene I73.00 Ac tive 766254561 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 185511055 Problem Excessive daytime sleepiness G47.19 Active 141 977086111 ALLERGIES Allergen (clinical drug ingredient) Drug/Non Drug Allergy do cumented on EMR Reaction Allergy Type Onset Date Status CT dye, contrast Anaphylaxis Non Drug Allergy A ctive latex Anaphylaxis Non Drug Allergy Active fentanyl Fentanyl([facility] Code:[address]-51) seizures Drug Allergy Active ENCOUNTERS from 1989 to 2020-04-20 Encounter Location Date Provider Diagnosis [address] [address] Apr, Nargis Acosta Decreased hearing of both ears H91.93 IMMUNIZATIONS No Information SOCIAL HISTORY Tobacco Use: Social History Observation Description Date Details (start date - stop date) Never Smoker Sex Assigned At : Social History Observation Description Sex Assigned At Unknown Education: Question Answer Notes Level of Education: High School Audit Question Answer Notes Total Score: 0 Interpretation: Alcohol Education Language: Question Answer Notes Languages spoken: Moldovan Oriental Orthodox: Question Answer Notes Oriental Orthodox 99 Other christianity Domestic Violence: Question Answer Notes Status: Single Sexual Hx: Question Answer Notes Had sex in the last 12 months (vaginal, oral, or anal)? Yes LMP: 08/09/17 Have you ever had an STD? No with Men only Use protection? No Drug and Alcohol Question Answer Notes Total Score: 0 Interpretation: No problems reported Alcohol Screening: Question Answer Notes Did you have a drink containing alcohol in the past year? No Points 0 Interpretation Negative Tobacco Use: Question Answer Notes Are you a: never smoker REASON FOR REFERRAL No Information VITAL SIGNS No information MEDICATIONS Medication SIG (Take, Route, Frequency, Duration) Notes Start Da te End Date Status Amitriptyline HCl 25 MG 1 tablet at bedtime Orally Once a day Active Albuterol Sulfate HFA 108 (90 Base) MCG/ACT 2 puffs as needed Inhalation every 6 hrs Sep, Active Albuterol Sulfate (2.5 MG/3ML) 0.083% 3 ml as needed I nhalation Three times a day Sep, Active Nebulizer Compressor N/A 1 orally with albuterol solu tion (J45.909) every 6 hours as needed (Medicaid ID:[id number]) Sep, Active Keppra 750 MG 1 tablet Orally Twice a day Active Full Kit Nebulizer Set - as directed orally J45.909 e very 6 hours as needed (Medicaid ID:[id number]) for 30 Days Sep, Active Ibuprofen 600 MG 1 tablet with food or milk as needed Ora lly Three times a day Active Gabapentin 100 MG 1 capsule Orally twice a day Active Zofran 4 MG 1 tablet as needed Orally Q6H Active Glucagon Emergency 1 MG as directed Injection as needed for gluc ose level <50 Feb, Active Lamictal 200 MG 1 tablet Orally Twice a day Active Levothyroxine Sodium 175 MCG 1 tablet in the morning o n an empty stomach Orally Once a day Active PROCEDURES No Information RESULTS No Results REASON FOR VISIT Hearing test MEDICAL (GENERAL) HISTORY Type Description Date Medical History Seizure disorders (generaliz ed epilepsy and non-epileptic seizures) - [facility] confirmed by video EEG study performed 12/2017 Medical History Multiple sclerosis? - Neuro, one doctor told her she did, one told her she didn't Medical History Hx of Hodgkins Lymphoma s/p Chemo, RT, and Bone marrow transplant, remission since 2012 - Follows with [facility] Medical History Asthma Medical History Bilateral hearing loss d/t chemo and RT, wears hearing aids Medical History Raynauds Phenomenon Medical History Hypoglycemia per pt. (previously followe d at [facility]) Medical History Diverticulosis noted on CT scan 10/02 Medical History Hypothyroidism Medical History Interstitial cystitis Surgical History neck lesion biopsy dx'd with Hodgkins 20 11 Surgical History ear tube removal child Surgical History cardiac window 2010 Surgical History fluid drained off heart from complicatio ns d/t chemo and RT 2010 Surgical History breast bone to allow drainage of fluid o ff heart 2010 Surgical History EGD 2010 Surgical History insertion of central venous access device with subcutaneous port 3331-7237 Surgical History adnoids removed child Surgical History bone marrow transplant 2014 Hospitalization History cancer dx 2010 Hospitalization History bone marrow transplant 2014 Hospitalization History seizure x 2 times 12/2018 Hospitalization History seizure x1 07/29/2019 Hospitalization History [facility] seizure and stopped breathin g 01/2020 Hospitalization History partioal hystorectomy 01/2020 Goals Section No Information Health Concerns No Information MEDICAL EQUIPMENT No Information MENTAL STATUS No Information FUNCTIONAL STATUS No Information ASSESSMENTS Encounter Date Diagnosis Assessment Notes Treatment Notes Treatm ent Clinical Notes Apr, Decreased hearing of both ears (ICD-10 - H91.93) PLAN OF TREATMENT Medication Medication Name Sig Start Date Stop Date Amitriptyline HCl 25 MG 1 tablet at bedtime Orally Once a day Glucagon Emergency 1 MG as directed Injection as needed for glucose level <50 Feb, Lamictal 200 MG 1 tablet Orally Twice a day Gabapentin 100 MG 1 capsule Orally twice a day Levothyroxine Sodium 175 MCG 1 tablet in the morning o n an empty stomach Orally Once a day Keppra 750 MG 1 tablet Orally Twice a day Albuterol Sulfate (2.5 MG/3ML) 0.083% 3 ml as needed I nhalation Three times a day Sep, Albuterol Sulfate HFA 108 (90 Base) MCG/ACT 2 puffs as needed Inhalation every 6 hrs Sep, Next Appt Details Provider Name:Nargis Shane, 2020-09-24 10:30:00 AM, [address] [place], [address], Insurance Providers Payer Name Payer Address Payer Phone Insured Name Patient Relati onship to Insured Coverage Start Date Coverage End Date MED[place]ID [id number] [address] [facility] [id number] NERY WAN self
--- OUTSIDE RECORDS SUMMARY | 2020-04-27 22:18 | CCD | Continuity of Care Document ---
Author Author Serena BAKER Organization Unknown Address [address] [place] [address] Phone [phone] Care Team Providers Care Golf Ball Trimmer Name Role Phone Nargis Shane MD AUT Unavailable Problems Active Problems Provider Date Seizure disorder Shruti Baker MD Onset: 02/01/2019 History of Hodgkin lymphoma Dari Tinsley WHNP Onset: 03/18 Chronic interstitial cystitis Dari Tinsley WHNP Onset: Social History Type Date Description Comments Sex Unknown Tobacco Use Start: Unknown Never Smoked Cigarettes Tobacco Use Start: Unknown Non-smoker, Non-drinker, Non-alejandro g User Smoking Status Reviewed: 02/26/20 Non-smoker, Non-drinker, Non- drug User Tobacco Use [...] Unknown Lamictal 200mg Tablets Twice Daily Unknown Miralax 17gm Packet 1 by mouth every day Unknown Stool Softener + Stimulant Laxative 8.6-50mg Tablets Unknown Macrobid 100mg Capsules one by mouth twice a day for 10 days Unknown History Medications [place] 5-325mg Tablets 2 by mouth every 4 hours as needed pain 42tabs Shruti Baker MD 0 - 02/18/2020 Immunizations Description No Information Available Vital Signs Date Vital Result Comment 02/26/2020 9:42am BP Systolic 116 mmHg BP Diastolic 56 mmHg 02/19/2020 2:55pm BP Systolic 106 mmHg BP Diastolic 60 mmHg Results Description No Information Available Procedures Date Code Description Status 02/13/2020 65513 Hysterectomy Vaginal 250g Or Les s Completed Medical Devices Description No Information Available Encounters Type Date Location Provider Dx Diagnosis Office Visit 02/26/2020 10:00a [facility] remediation bioanalytics consultant Shruti Baker MD Office Visit 01/31/2020 11:15a [facility] remediation bioanalytics consultant Shruti Baker MD N9 2.1 Excessive and [...] 10:45 am - Shruti Baker MD at [facility] remediation bioanalytics consultant Functional Status Description No Information Available Mental Status Description No Information Available Referrals Description No Information Available
--- OUTSIDE RECORDS SUMMARY | 2020-04-27 22:18 | CCD | Continuity of Care Document ---
Author Author Serena SPENCE N.P[facility] Organization Unknown Address [address] [place] [address] Phone [phone] Care Team Providers Care Sole Cutter Name Role Phone Nargis Shane M.D. AUTM [phone] AUTM Unavailable Problems Active Problems Provider Date Sensorineural hearing loss, bilateral Morris Velasquez MD On set: 07/04/2014 Unilateral sensory hearing loss Morris Velasquez MD Onset: 0 07/04/2014 Social History Type Date Description Comments Sex Unknown ETOH Use Denies alcohol use Tobacco Use Reviewed: 04/01/20 Patient has never smoked Smoking Status Reviewed: 04/01/20 Patient has never smoked Allergies, Adverse Reactions, Alerts Active Allergies Reaction Severity Comments Date Latex 12/02/2011 Contrast Dye 12/15/2011 Bananas 03/03/2020 Fentanyl 04/01/2020 Medications Active Medications SIG Qnty Indications Ordering Provide r Date Lamictal 200mg Tablets 1 tab by mouth twice a day Unknown Keppra 750mg Tablets 1 tab po bid Unknown Gabapentin 100mg Capsules 1 tab by mouth twice a day 60caps Unknown Albuterol Sulfate HFA 108(90Base) mcg/Act Aerosol inhale two puffs by mouth four times a day as needed Unknown Synthroid 75mcg Tablets 1 tab by mouth every day Unknown Amitriptyline HCL 25mg Tablets 1 tab by mouth twice a day 30tabs Unknown Immunizations CPT Code Status Date Vaccine Lot # [id number] Refused 04/01/2020 Afluria, Quadrivalent, 0.5ml , [facility]# [id number] Vital Signs Date Vital Result Comment 04/01/2020 1:37pm BP Systolic 120 mmHg BP Diastolic 80 mmHg Heart Rate 103 /min O2 % BldC Oximetry 99 % Height 64 inches 5'4" Weight 154.00 lb BMI (Body Mass Index) 26.4 kg/m2 [place] Body Weight 120 lb Weight 69.854 kg BSA (Body Surface Area) 1.75 m2 03/03/2020 12:38pm BP Systolic 116 mmHg BP Diastolic 78 mmHg Heart Rate 89 /min O2 % BldC Oximetry 98 % Height 64 inches 5'4" Weight 155.50 lb BMI (Body Mass Index) 26.7 kg/m2 [place] Body Weight 120 lb Neck Circumference in inches 12 Cummings Score 9 Weight 70.535 kg BSA (Body Surface Area) 1.76 m2 Results Description No Information Available Procedures Description No Information Available Medical Devices Description No Information Available Encounters Type Date Location Provider Dx Diagnosis Office Visit 03/03/2020 1:15p [facility] Pulmonary/Thoracic Mya Spence, N.P. R06.83 Snoring R40.0 Somnolence Assessments Date Code Description Provider 03/03/2020 R06.83 Snoring Caroline Spence, N .P. 03/03/2020 R40.0 Somnolence Caroline Spence, N .P. Plan of Treatment No Information Available Functional Status Description No Information Available Mental Status Mental Condition Comment Date Status None Active Referrals Description No Information Available
--- OUTSIDE RECORDS SUMMARY | 2020-04-27 22:18 | CCD | Summary of Care ---
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 EEG did not reveal any abnormalities other than excessive fast activity probably due to her Clorazepate. As such, this video-EEG recording remains inconclusive to the nature of patient s recent paroxysmal episodes. Per previous history, the patient probably bashir s a diagnosis of primary generalized epilepsy, but has also a confirmed nonepile ptic seizures captured on previous video EEG recordings. Several spike and polys pike wave complexes were seen in the frontal lobes. VEEG at [facility] (2007): This digital VEEG captures a single non epileptic seizure which is very similar to the one seen prior to recording after she presented to the ER. This indicates that the current events of which this is typical are non epileptic ad that her seizures remain well controlled. 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 She had frequent clusters of prolo nged generalized body convulsion with altered consciousness leading to frequent ED visit prior EMU admission in December 2017. The mentioned admission with bashir bitual seizure recorded, deemed non-epileptic seizure. Her AEDs were adjusted. Benzodiazepine was discontinued. She responded to CBT after discharge. She bashir d no recurrent seizures till 01/2019. She again started having pseudoseizures a fter stopped CBT treatment. She had a cluster of pseudoseizures followed by seth ateral LE weakness, numbness that leaded to a hospital stay in July 2019 with e xtensive neuroimaging study, neurology consult concerned for functional disorder vs. Malingering vs. Factitious behavior. Psychiatry was consult who recommende d outpatient mental health testing and management. Lower extremity weakness res olved 1 month after discharge. She reported another 2 recent hospitalization for presumed status epilepticus wi th intubation with air lift to [facility] in November and [facility] in December. Medical records from [facility] s trung was reviewed. Video EEG recorded multiple episodes of body shaking with unr esponsive that had no EEG correlation, consistent with psychogenic nonepileptic seizures. Notably, lab result upon admission is not consistent with convulsive status epilepticus. There was no leukocytosis or metabolic acidosis. She resu med seeing psychiatry recently with counseling as well. She has not further sei zures since recent hospital discharge on January 14, 2020. Will continue cur rent AED treatment for epileptic seizures. I advised her to continue seizure pr ecautions, avoid alcohol, sleep deprivation, stress, missing medications, etc. PQRS measures: -Smoking screening: Negative -Alcohol screening: Negative -Fall screening: Yes, seizures -Depression screening: Negative PLAN - Please obtain medical record from [facility] for recent hospitaliza tion, including brain MRI imagines and EEG results. - Medications: Continue levetiracetam 750 mg BID, lamotrigine 200 mg BID. - Consultation requested: Continue to follow up with psychiatry counselor and C BT treatment for pseudoseizures. - VNS interrogated: n/a. - Seizure safety precautions including no driving, no climbing heights, no use o f heavy machinery, no bathe or swimming unsupervised, were discussed with the naresh quigley. - Appropriateness for surgical evaluation was reviewed: No, not a candidate. - Patient is in reproductive age: Yes, bilateral tubal ligation. The patient agreed with the plan as outlined above. Return to clinic in 3 months. I spent 25 minutes with this patient, more than half of that time was for patien t counseling. documented in this encounter Plan of Treatment Care Team Description Date Type Specialty Danielle Herron [place] [place] [address] [phone] 01/11/2021 Office Visit Hematology and Onco logy Health Maintenance Due Date Last Done Comments MMR Vaccines (1 of 1 - 1990 Standard series) Varicella Vaccines (1 of 1990 2 - 2-dose childhood series) Pneumococcal Vaccine: 04/03/2014 04/03/2013 Pediatrics (0 to 5 Years) and At-Risk Patients (6 to 64 Years) (2 of 3 - PCV13) Influenza Vaccine 01/16/2020 01/28/2013 DTaP,Tdap,and Td Vaccines 04/03/2023 04/03/2013, (4 - Tdap) 04/26/2004, 03/05/1992 Pneumococcal Vaccine: 65+ 2054 04/03/2013 Years (1 of 1 - PPSV23) Hepatitis A Vaccines Completed 04/01/2008, 08/31/2007 HIV Screening Completed 03/14/2012 HIB Vaccines Completed 04/03/2013, 03/05/1992 Hepatitis B Vaccines Completed 04/03/2013, 08/30/2001, 05/01/2001 IPV Vaccines Aged Out 04/03/2013, No longer eligi ble based on patient's age to 03/04/1992 complete this topic documented as of this encounter Results Not on filedocumented in this encounter Visit Diagnoses Diagnosis Psychogenic nonepileptic seizure - Prim nirmal Nonintractable generalized idiopathic e pilepsy without status epilepticus Intractable idiopathic generalized epil epsy Unspecified epilepsy with intractable e pilepsy documented in this encounter
--- OUTSIDE RECORDS SUMMARY | 2020-04-27 22:18 | CCD | Continuity of Care Document ---
Author Author Serena BAKER Organization Unknown Address [address] [place] [address] Phone [phone] Care Team Providers Care Health Care Liaison Name Role Phone Nargis Shane MD AUT [...] day for 10 days Unknown History Medications Mascot 5-325mg Tablets 2 by mouth every 4 hours as needed pain 42tabs Shruti Baker MD 0 - 02/18/2020 Immunizations Description No Information Available Vital Signs Date Vital Result Comment 02/26/2020 9:42am BP Systolic 116 mmHg BP Diastolic 56 mmHg 02/19/2020 2:55pm BP Systolic 106 mmHg BP Diastolic 60 mmHg Results Description No Information Available Procedures Date Code Description Status 02/13/2020 05202 Hysterectomy Vaginal 250g Or Les s Completed Medical Devices Description No Information Available Encounters Type Date Location Provider Dx Diagnosis Office Visit 02/26/2020 10:00a [facility] truck switcher Shruti Baker MD R1 0.2 Pelvic and perineal pain N92.1 Excessive and frequent menst ruation with irregular cycle N94.4 Primary dysmenorrhea Office Visit 02/19/2020 3:00p [facility] truck switcher Shruti Baker MD R1 0.2 Pelvic and perineal pain Office Visit 01/31/2020 11:15a [facility] truck switcher Shruti Baker MD N9 2.1 Excessive and frequent menstruation with irregular cycle R10.2 Pelvic and perineal pain N94.4 Primary dysmenorrhea Assessments Date Code Description Provider 02/26/2020 R10.2 Pelvic and perineal pain Shruti Baker MD 02/26/2020 N92.1 Excessive and frequent menstruat ion with irregular cycle Shruti Baker MD 02/26/2020 N94.4 Primary dysmenorrhea Mildred Baker MD 02/19/2020 R10.2 Pelvic and perineal pain Shruti Baker MD 02/13/2020 Z30.8 Encounter for other contraceptiv e management Shruti Baker MD 01/31/2020 N92.1 Excessive and frequent menstruat ion with irregular cycle Shruti Baker MD 01/31/2020 R10.2 Pelvic and perineal pain Shruti Baker MD 01/31/2020 N94.4 Primary dysmenorrhea Mildred Baker MD Plan of Treatment Future Appointment(s):* 03/25/2020 10:45 am - Shruti Baker MD at [facility] truck switcher Functional Status Description No Information Available Mental Status Description No Information Available Referrals Description No Information Available
--- OUTSIDE RECORDS SUMMARY | 2020-04-27 22:18 | CCD | Continuity of Care Document ---
Author Author Serena BAKER Organization Unknown Address [address] [place] [address] Phone [phone] Care Team Providers Care Physical Fitness Trainer Name Role Phone Nargis Shane MD AUT Unavailable Problems Active Problems Provider Date Seizure disorder Shruti Baker MD Onset: 02/01/2019 History of Hodgkin lymphoma Dari Tinsley WHNP Onset: 03/18 Chronic interstitial cystitis Dari Tinsley WHNP Onset: Social History Type Date Description Comments Sex Unknown Tobacco Use Start: Unknown Never Smoked Cigarettes Tobacco Use Start: Unknown Non-smoker, Non-drinker, Non-alejandro g User Smoking Status Reviewed: 03/25/20 Non-smoker, Non-drinker, Non- drug User Tobacco Use [...] Softener + Stimulant Laxative 8.6-50mg Tablets Unknown Synthroid 175mcg Tablets Unknown Albuterol Sulfate 1.25mg/3ML Nebulizer Unknown History Medications [place] 5-325mg Tablets 2 by mouth every 4 hours as needed pain 42tabs Shruti Baker MD 0 - 02/18/2020 Immunizations Description No Information Available Vital Signs Date Vital Result Comment 03/25/2020 9:59am BP Systolic 104 mmHg BP Diastolic 66 mmHg 02/26/2020 9:42am BP Systolic 116 mmHg BP Diastolic 56 mmHg Results Description No Information Available Procedures Date Code Description Status 02/13/2020 69710 Hysterectomy Vaginal 250g Or Les s Completed Medical Devices Description No Information Available Encounters Type Date Location Provider Dx Diagnosis Office Visit 02/26/2020 10:00a [facility] applique cutter Shruti Baker MD R1 0.2 Pelvic and perineal pain N92.1 Excessive and frequent menst ruation with irregular cycle N94.4 Primary dysmenorrhea Office Visit 02/19/2020 3:00p [facility] applique cutter Shruti Baker MD R1 0.2 Pelvic and perineal pain Office Visit 01/31/2020 11:15a [facility] applique cutter Shruti Baker MD N9 2.1 Excessive and [...] dysmenorrhea Mildred Baker MD Plan of Treatment No Information Available Functional Status Description No Information Available Mental Status Description No Information Available Referrals Description No Information Available
--- OUTSIDE RECORDS SUMMARY | 2020-04-27 22:18 | CCD | Continuity of Care Document ---
Author Author Serena BAKER Organization Unknown Address [address] [place] [address] Phone [phone] Care Team Providers Care Washer Engineer Helper Name Role Phone Nargis Shane MD AUT [...] day for 10 days Unknown History Medications [place] 5-325mg Tablets 2 by mouth every 4 hours as needed pain 42tabs Shruti Baker MD 0 - 02/18/2020 Immunizations Description No Information Available Vital Signs Date Vital Result Comment 02/26/2020 9:42am BP Systolic 116 mmHg BP Diastolic 56 mmHg 02/19/2020 2:55pm BP Systolic 106 mmHg BP Diastolic 60 mmHg Results Description No Information Available Procedures Date Code Description Status 02/13/2020 42379 Hysterectomy Vaginal 250g Or Les s Completed Medical Devices Description No Information Available Encounters Type Date Location Provider Dx Diagnosis Office Visit 02/26/2020 10:00a [facility] multimedia instructional designer Shruti Baker MD R1 0.2 Pelvic and perineal pain N92.1 Excessive and frequent menst ruation with irregular cycle N94.4 Primary dysmenorrhea Office Visit 01/31/2020 11:15a [facility] multimedia instructional designer Shruti Baker MD N9 2.1 Excessive and [...] 10:45 am - Shruti Baker MD at [facility] multimedia instructional designer Functional Status Description No Information Available Mental Status Description No Information Available Referrals Description No Information Available
--- OUTSIDE RECORDS SUMMARY | 2020-04-27 22:18 | CCD ---
Author Author [facility] Organization [facility] Address Unknown Phone Unavailable Care Team Providers Care Tank Cleaning Supervisor Name Role Phone Nargis Shane Unavailable PROBLEMS Type Condition ICD9-CM Code EHR68-VD Code Onset Dates Condition S tatus SNOMED Code Notes Problem History of hodgkin's lymphoma Z85.71 Active 47 8772214 Problem Hypothyroidism, unspecified type E03.9 Active 81727899 Problem Allergic rhinitis, unspecified seasonality, unspecifie d trigger J30.9 Active 02075347 Problem Excessive daytime sleepiness G47.19 Active 141 953472994 Problem Asthma, unspecified asthma s everity, unspecified whether complicated, unspecified whether persistent J45.909 Active 71654 7001 Problem Seizure disorder G40.909 Active 960437507 Problem Raynaud's phenomenon without gangrene I73.00 Ac tive 807767573 Problem Hypoglycemia E16.2 Active 274628916 Problem Interstitial cystitis N30.10 Active 900115788 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 708128157 ALLERGIES Allergen (clinical drug ingredient) Drug/Non Drug Allergy do cumented on EMR Reaction Allergy Type Onset Date Status CT dye, contrast Anaphylaxis Non Drug Allergy A ctive latex Anaphylaxis Non Drug Allergy Active fentanyl Fentanyl([facility] Code:[address]-35) seizures Drug Allergy Active ENCOUNTERS from 1989 to 2020-03-30 Encounter Location Date Provider Diagnosis [address] [address] Mar, Nargis Shane Annual physical exam Z00.00 ; Seizure di sorder G40.909 ; Excessive daytime sleepiness G47.19 ; Hypoglycemia E16.2 ; History of hodgkin's lymphoma Z85.71 ; Asthma, unspecified asthma severity, unspecified whether complicated, unspecified whether persistent J45.909 ; Hypothyroidism, unspecified type E03.9 ; Allergic rhinitis, unspecified seasonality, unspecified trigger J30.9 and Raynaud's phenomenon without gangrene I73.00 IMMUNIZATIONS No Information SOCIAL HISTORY Tobacco Use: Social History Observation Description Date Details (start date - stop date) Never Smoker Sex Assigned At : Social History Observation Description Sex Assigned At Unknown Education: Question Answer Notes Level of Education: High School Audit Question Answer Notes Total Score: 0 Interpretation: Alcohol Education Language: Question Answer Notes Languages spoken: Czech Mandaen: Question Answer Notes Mandaen 99 Other latter day Domestic Violence: Question Answer Notes Status: Single [...] REASON FOR REFERRAL No Information VITAL SIGNS Weight 157 lbs Mar, Height 65 in Mar, BMI 26.12 kg/m2 Mar, Heart Rate 111 /min Mar, Respiratory Rate 18 /min Mar, Temperature 97.4 degrees Fahrenheit Mar, Oximetry 100 Mar, Blood pressure systolic 100 mm Hg Mar, Blood pressure diastolic 66 mm Hg Mar, MEDICATIONS Medication SIG (Take, Route, Frequency, Duration) [...] (J45.909) every 6 hours as needed (Medicaid ID:[id number]) Sep, Active Keppra 750 MG 1 tablet Orally Twice a day Active Full Kit Nebulizer Set - as directed orally J45.909 e very 6 hours as needed (Medicaid ID:[id number]) for 30 Days Sep, Active Ibuprofen 600 [...] Information RESULTS No Results REASON FOR VISIT F/u seizures, hysterectomy, daytime sleepiness., Reference #: [id number] MEDICAL (GENERAL) HISTORY Type Description Date Medical History Seizure disorders (generaliz ed epilepsy and non-epileptic seizures) - [facility] Neuro confirmed by video EEG study performed 12/2017 Medical History Multiple sclerosis? 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 (previously followe d at [facility]) Medical History Diverticulosis noted on CT scan [...] central venous access device with subcutaneous port 6918-1165 Surgical History adnoids removed child Surgical History bone marrow transplant 2014 Hospitalization History cancer dx 2010 Hospitalization History bone marrow transplant 2014 Hospitalization History seizure x 2 times 12/2018 Hospitalization History seizure x1 07/29/2019 Hospitalization History [facility] seizure and stopped breathin g 01/2020 Hospitalization History partioal hystorectomy 01/2020 Goals Section No Information Health Concerns No Information MEDICAL EQUIPMENT No Information MENTAL STATUS No Information FUNCTIONAL STATUS No Information ASSESSMENTS Encounter Date Diagnosis Assessment Notes Treatment Notes Treatm ent Clinical Notes Mar, Annual physical exam (ICD-10 - Z00.00) Medical, surgical, and family histories were reviewed and updated. See preventative section. Mar, Seizure disorder (ICD-10 - G40.909) Being managed by neurology; will request most recent notes. She states "spots on brain" from MRI done at [facility] are being monitored by her neurologist. Mar, Excessive daytime sleepiness (ICD-10 - G47.19) Scheduled to f/u results of sleep study with her wireless store manager. Mar, Hypoglycemia (ICD-10 - E16.2) Etiology unclear; has seen endocrinology in the past and declines referral back to endocrinology for this. Continue Glucagon PRN. Mar, History of hodgkin's lymphoma (ICD-10 - Z85.71) Follows with Oncology in [place]. Mar, Asthma, unspecified asthma s everity, unspecified whether complicated, unspecified whether persistent (ICD-10 - J45.909) Denies recent exacerbations. Mar, Hypothyroidism, unspecified type (ICD-10 - E03.9 ) Last TSH was normal. Mar, Allergic rhinitis, unspecifi ed seasonality, unspecified trigger (ICD-10 - J30.9) Mar, Raynaud's phenomenon without gangrene (ICD-10 - I73.00) States she is uncertain why she is on low dose gabapentin; amitriptyline "might be for sleep". She states these are prescribed by her neurologist. She states gabapentin does "nothing" for her - I explained that this is probably because it is at a very low dose. Will request last neurology note to try to determine why she is on this and whether she can go up on this. PLAN OF TREATMENT Medication Medication Name Sig [...] as needed Inhalation every 6 hrs Sep, Treatment Notes Assessment Notes Clinical Notes Annual physical exam Medical, surgical, and family histories were reviewed and updated. See preventative section. Seizure disorder Being managed by ian velázquez; will request most recent notes. She states "spots on brain" from MRI done at [facility] are being monitored by her neurologist. Excessive daytime sleepiness Scheduled t o f/u results of sleep study with her wireless store manager. Hypoglycemia Etiology unclear; bashir s seen endocrinology in the past and declines referral back to endocrinology for this. Continue Glucagon PRN. History of hodgkin's lymphoma Follows Oncology in [place]. Asthma, unspecified asthma severity, uns pecified whether complicated, unspecified whether persistent Denies recent exacerbat ions. Hypothyroidism, unspecified type Last TS H was normal. Raynaud's phenomenon without gangrene St ates she is uncertain why she is on low dose gabapentin; amitriptyline "might be for sleep". She states these are prescribed by her neurologist. She states gabapentin does "nothing" for her - I explained that this is probably because it is at a very low dose. Will request last neurology note to try to determine why she is on this and whether she can go up on this. Next Appt Details 6 months Reason:F/u med prob Provider Name:Nargis Shane, 2020-09-24 10:30:00 AM, [address] [place], [address], Follow Up:6 monthsF/u med prob Insurance Providers Payer Name Payer Address Payer Phone Insured Name Patient Relati onship to Insured Coverage Start Date Coverage End Date MEDICAID [employer] [address] [facility] [id number] [address]
--- OUTSIDE RECORDS SUMMARY | 2020-04-27 22:18 | CCD ---
Author Author [facility] Organization [facility] Address Unknown Phone Unavailable Care Team Providers Care Sheet Combining Operator Name Role Phone Jayant Diana Unavailable PROBLEMS Type Condition ICD9-CM Code MQC44-TO Code Onset Dates Condition S tatus SNOMED Code Notes Problem History of hodgkin's lymphoma Z85.71 Active 47 1218352 Problem Hypothyroidism, unspecified type E03.9 Active 36645408 Problem Allergic rhinitis, unspecified seasonality, unspecifie d trigger J30.9 Active 66667685 Problem Excessive daytime sleepiness G47.19 Active 141 665921905 Problem Asthma, unspecified asthma s everity, unspecified whether complicated, unspecified whether persistent J45.909 Active 48273 7001 Problem Seizure disorder G40.909 Active 697722598 Problem Raynaud's phenomenon without gangrene I73.00 Ac tive 935735887 Problem Hypoglycemia E16.2 Active 775878618 Problem Interstitial cystitis N30.10 Active 675284078 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 798271069 ALLERGIES Allergen (clinical drug ingredient) Drug/Non Drug Allergy do cumented on EMR Reaction Allergy Type Onset Date Status CT dye, contrast Anaphylaxis Non Drug Allergy A ctive latex Anaphylaxis Non Drug Allergy Active fentanyl Fentanyl([facility] Code:[address]-44) seizures Drug Allergy Active ENCOUNTERS from 1989 to 2020-03-21 Encounter Location Date Provider Diagnosis [address] [address] Feb, Diana Saba Seizure disorder G40.909 ; Hypoglycemia E16.2 and Hypothyroidism, unspecified type E03.9 IMMUNIZATIONS No Information SOCIAL HISTORY Tobacco Use: Social History Observation Description Date Details (start date - stop date) Never Smoker Sex Assigned At : Social History Observation Description Sex Assigned At Unknown Education: Question Answer Notes Level of Education: High School Audit Question Answer Notes Total Score: 0 Interpretation: Alcohol Education Language: Question Answer Notes Languages spoken: Nepali Uatsdin: Question Answer Notes Uatsdin 99 Other anabaptism Domestic Violence: Question Answer Notes Status: Single [...] FOR REFERRAL No Information VITAL SIGNS Weight 150.6 lbs Feb, Height 65 in Feb, BMI 25.06 kg/m2 Feb, Heart Rate 106 /min Feb, Respiratory Rate 18 /min Feb, Temperature 97.9 degrees Fahrenheit Feb, Oximetry 100 Feb, Blood pressure systolic 100 mm Hg Feb, Blood pressure diastolic 62 mm Hg Feb, MEDICATIONS Medication SIG (Take, Route, Frequency, Duration) Notes Start Da te End Date Status Nebulizer Compressor N/A 1 orally with albuterol solu tion (J45.909) every 6 hours as needed (Medicaid ID:[id number]) Sep, Active Gabapentin 100 MG 1 capsule Orally twice a day Active Zofran 4 MG 1 tablet as needed Orally Q6H Active Albuterol Sulfate (2.5 MG/3ML) 0.083% 3 ml as needed I nhalation Three times a day for 90 days Sep, Active Albuterol Sulfate HFA 108 (90 Base) MCG/ACT 2 puffs as needed Inhalation every 6 hrs Sep, Active Keppra 750 MG 1 tablet Orally Twice a day Active Amitriptyline HCl 25 MG 1 tablet at bedtime Orally Once a day Active Lamictal 200 MG 1 tablet Orally Twice a day Active Levothyroxine Sodium 175 MCG 1 tablet in the morning o n an empty stomach Orally Once a day Active Full Kit Nebulizer Set - as directed orally J45.909 e very 6 hours as needed (Medicaid ID:[id number]) for 30 Days Sep, Active Glucagon Emergency 1 MG as directed Injection as needed for gluc ose level <50 Feb, Active Ibuprofen 600 MG 1 tablet with food or milk as needed Ora lly Three times a day Active PROCEDURES No Information RESULTS Component Value Reference Range HEMOGLOBIN A1c Reviewed date:03/23/2020 13:03:40 Interpretation: Performing Lab:Formerly [facility], [facility], [facility] [address] [facility] [address] , ,[place] [address] HEMOGLOBIN A1c 5.3 ESTIMATED AVERAGE GLUCOSE 105 60-110 LAMOTRIGINE (LAMICTAL) Reviewed date:03/25/2020 16:20:02 Interpretation: Performing Lab:Formerly [facility], [facility], [facility] [address] [facility] [address] , ,[place] [address] LAMOTRIGINE (LAMICTAL) 0.6 2.0-20.[address] 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 (previously followe d at [facility]) Medical History Diverticulosis noted on [...] central venous access device with subcutaneous port [id number] Surgical History adnoids removed child Surgical History bone marrow transplant 2014 Hospitalization History cancer dx 2010 Hospitalization History bone marrow transplant 2014 Hospitalization History seizure x 2 times 12/2018 Hospitalization History seizure x1 07/29/2019 [facility] and stopped breathin g 01/2020 Hospitalization History partioal hystorectomy 01/2020 Goals Section No Information Health Concerns No Information MEDICAL EQUIPMENT No Information MENTAL STATUS No Information FUNCTIONAL STATUS No Information ASSESSMENTS Encounter Date Diagnosis Assessment Notes Treatment Notes Treatm ent Clinical Notes Feb, Seizure disorder (ICD-10 - G40.909) Street 2 to hypoglycemia per pt. in ED will check lamictal, keppra level still pending Feb, Hypoglycemia (ICD-10 - E16.2) H/o this since in her teens, will check a1c see how low she's been going Feb, Hypothyroidism, unspecified type (ICD-10 - E03.9 ) Cont. current rx corrected PLAN OF TREATMENT Medication Medication Name Sig Start Date Stop Date Keppra 750 MG 1 tablet Orally Twice a day Lamictal 200 MG 1 tablet Orally Twice a day Gabapentin 100 MG 1 capsule Orally twice a day Amitriptyline HCl 25 MG 1 tablet at bedtime Orally Once a day Levothyroxine Sodium 175 MCG 1 tablet in the morning o n an empty stomach Orally Once a day Treatment Notes Assessment Notes Clinical Notes Seizure disorder Street 2 to hypoglycem ia per pt. in ED will check lamictal, keppra level still pending Hypoglycemia H/o this since in he r teens, will check a1c see how low she's been going Hypothyroidism, unspecified type Cont. c urrent rx corrected Treatment Notes Test Name Order Date HEMOGLOBIN A1c 2020-03-21 LAMOTRIGINE (LAMICTAL) 2020-03-21 Next Appt Details jono LEON Reason: Provider Name:Nargis Shane, 2020-03-26 02:30:00 PM, [address] [place], [address], Insurance Providers Payer Name Payer Address Payer Phone Insured Name Patient Relati onship to Insured Coverage Start Date Coverage End Date MEDICAID [employer] [address] [facility] [id number] [address] self
--- OUTSIDE RECORDS SUMMARY | 2020-04-27 22:19 | CCD | Continuity of Care Document ---
Author Author Serena BAKER Organization Unknown Address [address] [place] [address] Phone [phone] Care Team Providers Care Web Support Engineer Name Role Phone Nargis Shane MD AUTM Unavailable Problems Active Problems Provider Date Seizure [...] SIG Qnty Indications Ordering Provide r Date Gabapentin 100mg Capsules Take 1 Capsule By Mouth Once On First Day, Then Increase To 1 Capsule Twice A Day 60Shruti Trivedi MD 04/24/2019 Elmiron 100mg Capsules 1 by mouth three times a day 90Shruti Trivedi MD 03/04/2019 Amitriptyline HCL 25mg Tablets Take 1 Tablet By Mouth Twice Daily 60tabs Shruti Bakre MD Nexplanon 68mg Implant jerod t in 10-01-18 Unknown Keppra 750mg Tablets 1 Tablet Twice Daily Unknown Lamictal 200mg Tablets Twice Daily Unknown Immunizations Description No Information Available Vital Signs Date Vital Result Comment 06/26/2019 10:24am BP Systolic 108 mmHg BP Diastolic 68 mmHg Results Description No Information Available Procedures Description No Information Available Medical Devices Description No Information Available Encounters Type Date Location Provider Dx Diagnosis Office Visit 01/31/2020 11:15a [facility] nuclear physics teacher Shruti Baker MD N9 2.1 Excessive and frequent menstruation with irregular cycle R10.2 Pelvic and perineal pain N94.4 Primary dysmenorrhea Assessments Date Code Description Provider 01/31/2020 N92.1 Excessive and frequent menstruat ion with irregular cycle Shruti Baker MD 01/31/2020 R10.2 Pelvic and perineal pain Shruti Baker MD 01/31/2020 N94.4 Primary dysmenorrhea Mildred Baker MD Plan of Treatment Future Appointment(s):* 03/25/2020 10:45 am - Shruti Baker MD at [facility] nuclear physics teacher * 02/26/2020 10:00 am - Shruti Baker MD at [facility] nuclear physics teacher * 02/13/2020 10:30 am - Shruti Baker MD at [facility] Or 01/31/2020 - Shruti Baker MD* N92.1 Excessive and frequent menstruation with irregular cycle * R10.2 Pelvic and perineal pain * N94.4 Primary dysmenorrhea Functional Status Description No Information Available Mental Status Description No Information Available Referrals Description No Information Available
--- OUTSIDE RECORDS SUMMARY | 2020-04-27 22:19 | CCD | Continuity of Care Document ---
Author Author Serena DANIEL Organization Unknown Address [address] [place] [address], [address] [place] [address] Phone [phone] Problems Description No Information Available Social History Type Date Description Comments Sex Unknown Allergies, Adverse Reactions, Alerts Description No Information Available Medications Description No Information Available Immunizations Description No Information Available Vital Signs Description No Information Available Results Description No Information Available Procedures Description No Information Available Medical Devices Description No Information Available Encounters Type Date Location Provider Dx Diagnosis Office Visit 01/29/2020 3:53a [facility] KHANH Casillas G40.9 09 Epilepsy, unsp, not intractable, without status epilepticus Assessments Date Code Description Provider 01/29/2020 G40.909 Epilepsy, unspecifie d, not intractable, without status epilepticus KHANH Casillas Plan of Treatment No Information Available Functional Status Description No Information Available Mental Status Description No Information Available Referrals Description No Information Available
--- OUTSIDE RECORDS SUMMARY | 2020-04-27 22:19 | CCD ---
Author Author [facility] Organization [facility] Address Unknown Phone Unavailable Care Team Providers Care Manager Control Name Role Phone Nargis Shane Unavailable PROBLEMS Type Condition ICD9-CM Code YJZ48-TA Code Onset Dates Condition S tatus SNOMED Code Notes Problem History of hodgkin's lymphoma Z85.71 Active 47 0688991 Problem Hypothyroidism, unspecified type E03.9 Active 73942813 Problem Allergic rhinitis, unspecified seasonality, unspecifie d trigger J30.9 Active 20451748 Problem Excessive daytime sleepiness G47.19 Active 141 075943983 Problem Asthma, unspecified asthma s everity, unspecified whether complicated, unspecified whether persistent J45.909 Active 28602 7001 Problem Seizure disorder G40.909 Active 831169847 Problem Raynaud's phenomenon without gangrene I73.00 Ac tive 483882091 Problem Hypoglycemia E16.2 Active 555434613 Problem Interstitial cystitis N30.10 Active 077272810 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 828114731 ALLERGIES Allergen (clinical drug ingredient) Drug/Non Drug Allergy do cumented on EMR Reaction Allergy Type Onset Date Status CT dye, contrast Anaphylaxis Non Drug Allergy A ctive latex Anaphylaxis Non Drug Allergy Active fentanyl Fentanyl([facility] Code:[address]-87) seizures Drug Allergy Active ENCOUNTERS from 1989 to 2020-01-27 Encounter Location Date Provider Diagnosis [address] [address] Jan, Nargis Quinteromajo Seizure disorder G40.909 ; Hypothyroidis m, unspecified type E03.9 and Excessive daytime sleepiness G47.19 IMMUNIZATIONS No Information SOCIAL HISTORY Tobacco Use: Social History Observation Description Date Details (start date - stop date) Never Smoker Sex Assigned At : Social History Observation Description Sex Assigned At Unknown Education: Question Answer Notes Level of Education: High School Audit Question Answer Notes Total Score: 0 Interpretation: Alcohol Education Language: Question Answer Notes Languages spoken: Hungarian Druze: Question Answer Notes Druze 99 Other buddhism Domestic Violence: Question Answer Notes Status: Single [...] FOR REFERRAL No Information VITAL SIGNS Weight 154 lbs Jan, Height 65 in Jan, BMI 25.62 kg/m2 Jan, Heart Rate 104 /min Jan, Respiratory Rate 18 /min Jan, Temperature 96.8 degrees Fahrenheit Jan, Oximetry 100 Jan, Blood pressure systolic 96 mm Hg Jan, Blood pressure diastolic 58 mm Hg Jan, MEDICATIONS Medication SIG (Take, Route, Frequency, Duration) Start Date En d Date Status Symbicort 160-4.5 MCG/ACT 2 puffs Inhalation Twice a day as needed Active Keppra 750 MG 1 tablet Orally Twice a day Active Full Kit Nebulizer Set - as directed orally J45.909 e very 6 hours as needed (Medicaid ID:[id number]) for 30 Days Sep, Activ e Nebulizer Compressor N/A 1 orally with albuterol solu tion (J45.909) every 6 hours as needed (Medicaid ID:[id number]) Sep, A ctive Zofran 4 MG 1 tablet as needed Orally Q6H Active Glucagon Emergency 1 MG as directed Injection as needed for glucose level <50 Feb, Active Albuterol Sulfate HFA 108 (90 Base) MCG/ACT 2 puffs as needed Inhalation every 6 hrs Sep, Active Lamictal 200 MG 1 tablet Orally Twice a day Active Nexplanon 68 MG as directed Subcutaneous Active Albuterol Sulfate (2.5 MG/3ML) 0.083% 3 ml as needed I nhalation Three times a day for 90 days Sep, Active Gabapentin 100 MG 1 capsule Orally twice a day Active Levothyroxine Sodium 175 MCG 1 tablet in the morning o n an empty stomach Orally Once a day for 30 Active Pantoprazole Sodium 40 MG 1 tablet Orally Once a day as needed Active Amitriptyline HCl 25 MG 1 tablet at bedtime Orally Once a day Active PROCEDURES No Information RESULTS REASON FOR VISIT [facility] FU, discuss sleep apnea referral MEDICAL (GENERAL) HISTORY Type Description Date Medical History 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 - Neuro, one doctor told her she did, one told her she didn't Medical History Hx of Hodgkins Lymphoma s/p Chemo, RT, and Bone marrow transplant, remission since 2012 - Follows with [facility] Oncology Medical History Asthma Medical History Bilateral hearing loss d/t chemo and RT, wears hearing aids Medical History Raynauds Phenomenon Medical History Hypoglycemia per pt. (previously followe d at [facility]) Medical History Diverticulosis noted on CT scan [...] central venous access device with subcutaneous port 1396-6941 Surgical History adnoids removed child Surgical History bone marrow transplant 2014 Hospitalization History cancer dx 2010 Hospitalization History bone marrow transplant 2014 Hospitalization History seizure x 2 times 12/2018 Hospitalization History seizure x1 07/29/2019 Hospitalization History [facility] seizure and stopped breathin g 01/2020 Goals Section No Information Health Concerns No Information MEDICAL EQUIPMENT No Information MENTAL STATUS No Information FUNCTIONAL STATUS No Information ASSESSMENTS Encounter Date Diagnosis Notes Jan, Excessive daytime sleepiness (ICD-10 - G 47.19) Jan, Hypothyroidism, unspecified type (ICD-10 - E03.9) Jan, Seizure disorder (ICD-10 - G40.909) PLAN OF TREATMENT Treatment Notes Assessment Notes Clinical Notes Seizure disorder No further seizures since discharge, follows with Neuro in [place]. Doing PT and strength is gradually improving. Hypothyroidism, unspecified type States she was discharged from Dr. Caputo's practice for cancellations. Will take over management of hypothyroidism and check thyroid panel as last panel ordered by Endocrine was abnormal. Next Appt Details 2-3 months Reason:F/u med prob Provider Name:Nargis Shane, 2020-03-26 02:30:00 PM, [address] [place] [address], [phone], Follow Up:2-3 monthsF/u med prob Insurance Providers Payer Name Payer Address Payer Phone Insured Name Patient Relati onship to Insured Coverage Start Date Coverage End Date MEDICAID [employer] [address] [facility] [id number] [address] self
--- OUTSIDE RECORDS SUMMARY | 2020-04-27 22:19 | CCD | Continuity of Care Document ---
Author Author Serena BAKER Organization Unknown Address [address] [place] [address] Phone [phone] Care Team Providers Care Public Works Technician Name Role Phone Nargis Shane MD AUT [...] 200mg Tablets Twice Daily Unknown History Medications Sawyer 5-325mg Tablets 2 by mouth every 4 hours as needed pain 42tabs Shruti Baker MD 0 - 02/18/2020 Immunizations Description No Information Available Vital Signs Date Vital Result Comment 02/19/2020 2:55pm BP Systolic 106 mmHg BP Diastolic 60 mmHg 06/26/2019 10:24am BP Systolic 108 mmHg BP Diastolic 68 mmHg Results Description No Information Available Procedures Date Code Description Status 02/13/2020 88744 Hysterectomy Vaginal 250g Or Les s Completed Medical Devices Description No Information Available Encounters Type Date Location Provider Dx Diagnosis Office Visit 01/31/2020 11:15a [facility] Shruti Baker MD N9 2.1 Excessive and frequent menstruation with irregular cycle R10.2 Pelvic and perineal pain N94.4 Primary dysmenorrhea Assessments Date Code Description Provider 02/19/2020 R10.2 Pelvic and perineal pain Shruti Baker MD 01/31/2020 N92.1 Excessive and frequent menstruat ion with irregular cycle Shruti Baker MD 01/31/2020 R10.2 Pelvic and perineal pain Shruti Baker MD 01/31/2020 N94.4 Primary dysmenorrhea Mildred Baker MD Plan of Treatment Future Appointment(s):* 03/25/2020 10:45 am - Shruti Baker MD at [facility] * 02/26/2020 10:00 am - Shruti Baker MD at [facility] 02/19/2020 - Shruti Baker MD* R10.2 Pelvic and perineal pain* New Medication: * Celebrex 200 mg - 1 by mouth twice a day as needed for pain Functional Status Description No Information Available Mental Status Description No Information Available Referrals Description No Information Available
--- OUTSIDE RECORDS SUMMARY | 2020-04-27 22:19 | CCD | Continuity of Care Document ---
Author Author Serena BAKER Organization Unknown Address [address] [place] [address] Phone [phone] Care Team Providers Care Puff Ironer Name Role Phone Nargis Shane MD AUTM [...] Mouth Twice Daily 60tabs Shruti Baker MD Nexplanon 68mg Implant jerod t in [...] Provider Dx Diagnosis Office Visit 01/31/2020 11:15a [facility] patient placement coordinator Shruti Baker MD Assessments Description No Information Available Plan of Treatment Future Appointment(s):* 03/25/2020 10:45 am - Shruti Baker MD at [facility] patient placement coordinator * 02/26/2020 10:00 am - Shruti Baker MD at [facility] patient placement coordinator * 02/13/2020 10:30 am - Shruti Baker MD at [facility] Or Functional [facility] Description No Information Available Mental Status Description No Information Available Referrals Description No Information Available
--- OUTSIDE RECORDS SUMMARY | 2020-04-27 22:19 | CCD | Summary of Care ---
Author Author [facility] Organization [facility] Address Unknown Phone Unavailable Care Team Providers Care Manager Sales And Marketing Name Role Phone Nargis Shane MD PCP Encounter Details Care Team Description Date Type Department 01/29/2020 [facility] TRANSFER CE NTER Encounter [address] [place] [address] Allergies Comments Active Allergy Reactions Severity Noted [...] as of this encounter (statuses as of 02/13/2020) Medications End Date Status Medication Sig Dispensed [...] Oral Tablet by mouth (SYNTHROID, LEVOTHROID) Daily 08/05/2020 Active lamoTRIgine 200 MG Oral Take 1 tablet 180 tablet 3 Tablet by mouth Two 0 (LaMICtal)Indications: Times Daily Nonintractable generalized idiopathic epilepsy without status epilepticus 08/05/2020 Active levETIRAcetam 750 MG Oral Take 1 tablet 180 tablet 3 Tablet (KEPPRA) by mouth Two 0 Times Daily Active Gabapentin 100 MG Oral Take 100 mg 0 Capsule (NEURONTIN) by mouth Two Times Daily Active Amitriptyline HCl 25 MG Take 25 mg by 0 Oral Tablet (ELAVIL) mouth Two Times Daily Active lamoTRIgine 200 MG Oral Take 200 mg 0 Tablet (LaMICtal) by mouth Two Times Daily Active levETIRAcetam 750 MG Oral Take 750 mg 0 Tablet (KEPPRA) by mouth Two Times Daily Active Amitriptyline HCl 25 MG Take 25 mg by 0 Oral Tablet (ELAVIL) mouth Two Times Daily Active Gabapentin 100 MG Oral Take 100 mg 0 Capsule (NEURONTIN) by mouth Two Times Daily Active Levothyroxine Sodium 175 Take 175 mcg 0 MCG Oral Tablet by mouth (SYNTHROID) Daily documented as of this encounter (statuses as of 02/13/2020) Active Problems Patient Care Coordination Note [facility] has requested that any scripts coming out of the [facility] for Radiology or Lab results be faxed to them directly and not given to the patient. The Pathology Fax Number is [phone]. Radiology Fax Number is [phone]. Problem Noted Date Acute respiratory failure 01/13/2020 [...] as of this encounter (statuses as of 02/13/2020) Resolved Problems Problem Noted Date Resolved Date Hypoglycemia 10/09/2014 06/23/2016 Dysphagia 09/17/2014 08/03/2016 Raynaud's disease 02/03/2014 06/23/2016 Weight loss, unintentional 09/06/2013 08/03/2016 Grand mal seizure disorder 08/03/2016 Overview: also peudoseizures Development delay 08/03/2016 documented as of this encounter (statuses as of 02/13/2020) Immunizations Name Administration Dates Next Due DTaP 04/03/2013 Hep B 04/03/2013 HiB (PRP-T) 04/03/2013 IPV 04/03/2013 Influenza Whole 01/28/2013 Pneumococcal 04/03/2013 Polysaccharide PPV23 documented as of this encounter Social History Date Tobacco Use Types Packs/Day Years Used Never Smoker Smokeless Tobacco: Never Used Drinks/Week oz/Week Comments Alcohol Use No Sex Assigned at Date Recorded Not on file Date Recorded COVID-19 Exposure Response 01/29/2020 9:30 AM EDT In the last month, have you been in contact with No / Unsure someone who was confirmed or suspected to have Coronavirus / COVID-19? documented as of this encounter Last Filed Vital Signs Not on filedocumented in this encounter Plan of Treatment Care Team Description Date Type Specialty Mariano Quezada MD [address] [facility] [place] [address] [place] [phone] 03/18/2020 Telemedicine Neurology Danielle Hreron MD [address] [place], [place] [id number] 01/11/2021 Office Visit Hematology and Onco logy [...]
--- OUTSIDE RECORDS SUMMARY | 2020-04-27 22:19 | CCD ---
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 Role Phone Nargis Shane Unavailable PROBLEMS Type Condition ICD9-CM Code FGE26-JK Code Onset Dates Condition S tatus SNOMED Code Notes Problem History of hodgkin's lymphoma Z85.71 Active 47 4068412 Problem Hypothyroidism, unspecified type E03.9 Active 49441517 Problem Allergic rhinitis, unspecified seasonality, unspecifie d trigger J30.9 Active 78029453 Problem Excessive daytime sleepiness G47.19 Active 141 811640263 Problem Asthma, unspecified asthma s everity, unspecified whether complicated, unspecified whether persistent J45.909 Active 07469 7001 Problem Seizure disorder G40.909 Active 454296471 Problem Raynaud's phenomenon without gangrene I73.00 Ac tive 994688998 Problem Hypoglycemia E16.2 Active 611682417 Problem Interstitial cystitis N30.10 Active 240898370 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 247816971 ALLERGIES Allergen (clinical drug ingredient) Drug/Non Drug Allergy do cumented on EMR Reaction Allergy Type Onset Date Status CT dye, contrast Anaphylaxis Non Drug Allergy A ctive latex Anaphylaxis Non Drug Allergy Active fentanyl Fentanyl([facility] Code:[address]-26) seizures Drug Allergy Active ENCOUNTERS from 1989 to 2020-02-19 Encounter Location Date Provider Diagnosis [address] [address] Feb, Nargis Shane IMMUNIZATIONS No Information SOCIAL HISTORY Tobacco Use: Social History Observation Description Date Details (start date - stop date) Never Smoker Sex Assigned At : Social History Observation Description Sex Assigned At Unknown Education: Question Answer Notes Level of Education: High School Audit Question Answer Notes Total Score: 0 Interpretation: Alcohol Education Language: Question Answer Notes Languages spoken: Kenyan Christianity: Question Answer Notes Christianity 99 Other christianity Domestic Violence: Question Answer [...] Duration) Start Date En d Date Status Amitriptyline HCl 25 MG 1 tablet at bedtime Orally Once a day Active Lamictal 200 MG 1 tablet Orally Twice a day Active Albuterol Sulfate HFA 108 (90 Base) MCG/ACT 2 puffs as needed Inhalation every 6 hrs Sep, Active Keppra 750 MG 1 tablet Orally Twice a day Active Albuterol Sulfate (2.5 MG/3ML) 0.083% 3 ml as needed I nhalation Three times a day for 90 days Sep, Active Glucagon Emergency 1 MG as directed Injection as needed for glucose level <50 Feb, Active Ibuprofen 600 MG 1 tablet with food or milk as needed Ora lly Three times a day Active Zofran 4 MG 1 tablet as needed Orally Q6H Active Full Kit Nebulizer Set - as directed orally J45.909 e very 6 hours as needed (Medicaid ID:[id number]) for 30 Days Sep, Activ e Levothyroxine Sodium 175 MCG 1 tablet in the morning o n an empty stomach Orally Once a day for 30 Active Gabapentin 100 MG 1 capsule Orally twice a day Active Symbicort 160-4.5 MCG/ACT 2 puffs Inhalation Twice a day as needed Unknown Nebulizer Compressor N/A 1 orally with albuterol solu tion (J45.909) every 6 hours as needed (Medicaid ID:[id number]) Sep, A ctive PROCEDURES No Information RESULTS No Results REASON FOR VISIT [facility] d/c 02/17; osteitis pubis MEDICAL (GENERAL) HISTORY Type Description Date Medical History Seizure disorders (generaliz ed epilipsy and non-epileptic seizures) - [facility] Neuro confirmed by video EEG study performed 12/2017 Medical History Multiple sclerosis? 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 (previously followe d at [facility]) Medical History Diverticulosis noted on CT scan [...] central venous access device with subcutaneous port 3025-9088 Surgical History adnoids removed child Surgical History bone marrow transplant 2014 Hospitalization History cancer dx 2010 Hospitalization History bone marrow transplant 2014 Hospitalization History seizure x 2 times 12/2018 Hospitalization History seizure x1 07/29/[address] [facility] seizure and stopped breathin g 01/2020 Goals Section No Information Health Concerns No Information MEDICAL EQUIPMENT No Information MENTAL STATUS No Information FUNCTIONAL STATUS No Information ASSESSMENTS No Information PLAN OF TREATMENT Next Appt Details Provider Name:Diana Saba, 2019-04 02:00:00 PM, [address] [place] [address], [phone], Provider Name:Nargis Shane, 2020-03-26 02:30:00 PM, [address] [place] [address], [phone], Insurance Providers Payer Name Payer Address Payer Phone Insured Name Patient Relati onship to Insured Coverage Start Date Coverage End Date MEDICAID [employer] [address] [facility] [id number] NERY WAN self
--- OUTSIDE RECORDS SUMMARY | 2020-04-27 22:19 | CCD | Summary of Care ---
Author Author [facility] Organization [facility] Address Unknown Phone Unavailable Care Team Providers Care Burr Sander Name Role Phone Nargis Shane MD PCP Reason for Visit * Reason Comments Follow-up Epilepsy Encounter Details Care Team Description Date Type Department Mariano Quezada MD [address] [place] [address] 4th [address] [place] [address] Intractable idiopathic generalized epile psy (Primary Dx); Psychogenic nonepileptic seizure 01/28/[address] [place] [address] Allergies Comments Active Allergy Reactions Severity Noted [...] as of this encounter (statuses as of 01/28/2020) Medications End Date Status Medication Sig Dispensed [...] as of this encounter (statuses as of 01/28/2020) Active Problems Patient Care Coordination Note [facility] has requested that any scripts coming out of the [facility] for Radiology or Lab results be faxed to them directly and not given to the patient. The Pathology Fax Number is [phone]. Radiology Fax Number is [phone]. Problem Noted Date Acute respiratory failure 01/13/2020 [...] as of this encounter (statuses as of 01/28/2020) Resolved Problems Problem Noted Date Resolved Date Hypoglycemia 10/09/2014 06/23/2016 Dysphagia 09/17/2014 08/03/2016 Raynaud's disease 02/03/2014 06/23/2016 Weight loss, unintentional 09/06/2013 08/03/2016 Grand mal seizure disorder 08/03/2016 Overview: also peudoseizures Development delay 08/03/2016 documented as of this encounter (statuses as of 01/28/2020) Immunizations Name Administration Dates Next Due DTaP 04/03/2013 Hep B 04/03/2013 HiB (PRP-T) 04/03/2013 IPV 04/03/2013 Influenza Whole 01/28/2013 Pneumococcal 04/03/2013 Polysaccharide PPV23 documented as of this encounter Social History Date Tobacco Use Types Packs/Day Years Used Never Smoker Smokeless Tobacco: Never Used Drinks/Week oz/Week Comments Alcohol Use No Sex Assigned at Date Recorded Not on file Date Recorded COVID-19 Exposure Response 01/28/2020 7:33 AM EDT In the last month, have you been in contact with No / Unsure someone who was confirmed or suspected to have Coronavirus / COVID-19? documented as of this encounter Last Filed Vital Signs Reading Time Taken Comments Vital Sign - - Blood Pressure - - Pulse 36.4 C (97.5 F) 01/28/2020 10:10 AM EDT Temperature - - Respiratory Rate - - Oxygen Saturation - - Inhaled Oxygen Concentration 63.5 kg (140 lb) 01/28/2020 10:10 AM EDT Weight 172.7 cm (5' 7.99") 01/28/2020 10:10 AM EDT Height 21.29 01/28/2020 10:10 AM EDT Body Mass Index documented in this encounter Patient Instructions * Patient Instructions* Mariano Quezada MD - 01/28/2020 10:30 AM EDT PLAN - Please obtain medical record from [facility] for recent hospitaliza tion, including brain MRI imagines. - Medications: Continue levetiracetam 750 mg BID, lamotrigine 200 mg BID. - Consultation requested:Recommend CBT treatment for pseudoseizures. Recommend to continue to follow with counselor. - VNS interrogated: n/a. - Seizure safety precautions including no driving, no climbing heights, no use o f heavy machinery, no bathe or swimming unsupervised, were discussed with the pa soraida. - Appropriateness for surgical ev aluation was reviewed: N/A - Patient is in reproductive age: Yes, bilateral tubal ligation. - F/u with PCP for anxiety, psudoseizures and recent reported bradycardia per naresh quigley during hospitalization in [facility]. The patient agreed with the plan as outlined above. Return to clinic in 1 months. documented in this encounter Progress Notes * Mariano Quezada MD - 01/28/2020 10:30 AM EDT EPILEPSY CLINIC NOTE The patient was informed [...] audio and v ideo connection, as per [facility] and/or [facility] directives a nd protocols. CHIEF COMPLAINT: Follow [...] falls. She was also ad mitted to [facility] for video EEG monitoring in July of [...] neighbour in 01/2019. She was hospitalized in [facility] 01/19 -01/22/2019. She was reported with 10 seizure like episodes in ED triggered by discussion of discharge home, interrupted by calling her name. Brain MRI did not reveal any significant mauricio es. Neurology was consult and concerned for pseudoseizures. Neurology was cons ulted after she was She was no show for follow up appointments afterwards. She again was hospitalized in [facility] 07/23/2019 - 07/28/2019 after multiple episodes of [...] After she was discussed with possibility of fpc placement if she could participate in PT [...] work up with extensive brain, spine MRI. INTERVAL HISTORY She was last seen in clinic by me in telemedicine clinic on 11/06/2019. No medic ation changes were made. She reported that she was admitted to [facility] from 11/27 - 0 for cluster of breakthrough seizures. She stated she was intubated for presum ed status epilepticus. She states they airlifted her and told her that she has some "spots" on her brain. She also had abdominal pain which they attributed to a UTI. She was discharged on home AEDs. No record is available. She had anothe r cluster of multiple body convulsions on 01/11/2020 and subsequent was airlifted to [facility] and was given multiple doses of sedation and AEDs including midazola m, Ativan , levetiracetam, Ketamine etc. And she was intubated on route. She wa s reported with purposeful movements in ED and was subsequently started on propo fol. She was monitored with video EEG. Multiple episodes were captured with ri ght head deviation, right arm and leg shaking lasting for 30 - 60 seconds follow ed by unresponsiveness to questioning. No electrographic correlate was noted in each of the episode, and no background changes were seen. 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 She was discharged on 01/14/2020 with [facility] AEDs. No recurrent seizures since discharge. She also reported she was found with bradycardia while in [facility]. She is scheduled to see a Production Editor. No other concerns today. She has not seen mental health provider and counselor for a couple of years. Jony izquierdo used to see a counselor for mental health care. CURRENT SEIZURE DESCRIPTION AND FREQUENCY Seizure Type [...] of head trauma: no - History of meningitis/encephalitis/LITIGATION COORDINATOR infection: no - History of febrile seizure: [...] 2011 neck NECK LESION BIOPSY left neck LA ESOPHAGOGASTRODUODENOSCOPY TRANSORAL DIAGNOSTIC N/A 09/04/2014 Procedure: UPPER GI ENDOSCOPY; DX, W/WO SPECIMEN COLLECTION, BRUSHING/WASHING ( SEP PROC); Surgeon: Jose Perla MD; Location: OR [facility]; Service: Endoscopy; Laterality: N/A; UPPER GASTROINTESTINAL [...] Used Substance and Sexual Activity Alcohol use: No Drug use: No Sexual activity: Not on file Lifestyle Physical activity Days per week: Not on file Minutes per session: Not on file Stress: Not on file Relationships Social connections Talks on phone: Not on file Gets together: Not on file Attends adventist service: Not on file Active member of [...] Outpatient Medications Marked as Taking for the 01/28/20 encounter (Telemedicine ) with Mariano Quezada MD Medication Sig Dispense [...] mg by mouth Two Times Daily 1 ibuprofen (ADVIL,MOTRIN) 400 MG tablet Take [...] 175 mcg by mout h Daily 1 Multiple Vitamin (MULTI VITAMIN DAILY PO) Take by mouth 1 Nexplan impant EXAMINATION Vitals: 01/28/20 1010 Temp: 36.4 C (97.5 F) TempSrc: Temporal Weight: 63.5 kg (140 lb) Height: 1.727 m (5' 7.99") General appearance: Alert, cooperative, no distress, appears [...] rior ethmoid sinusitis. OSH brain MRI in [facility] in 07/25/2019: compared with MRI brain on 01/19: Stable nonspecific subcortical WM foci of T2 hyperintensity in the frontal lobes bilaterally. MRI brain w/wo contrast(2010): Few nonspecific hyperintense lesions within the subcortical white matter of the left frontal lobe. There is otherwise no evidence of an acute intracranial disea se process. No masses are identified. EEG [facility](2007): Normal awake EEG Routine EEG @ [facility](2011): This is an EEG done in the [...] likely frontal lobe epilepsy. Routine EEG @ [facility](2011): Normal awake, drowsy, stage I and II sleep EEG. Routine EEG @ [facility](2012): Normal awake EEG Routine EEG @ [facility](2013): Normal routine , awake, drowsy EEG Video [...] non-epileptic spells (PNES). VEEG 01/08/2018 - 01/12/2018 ([facility]): This Computer Assisted Digital Video EEG is [...] Video-EEG monitoring (06/10/13 to 06/12/13) done at [facility]: Throughout the duration of this admission, Ms. [...] seen in the frontal lobes. VEEG at [facility] (2007): This digital VEEG captures a single [...] pseudoseizures a fter stopped CBT treatment. She is resistant to see mental health care provider for further cognitive behavioral therapy. She had a cluster of pseudoseizures followed by bilateral LE weakness, numbness that leaded to a hospital stay in ril 2019 with extensive neuroimaging study, neurology consult concerned for func tional disorder vs. Malingering vs. Factitious behavior. Psychiatry was consult who recommended outpatient mental health testing and management. Lower extremi ty weakness resolved 1 month after discharge. However, patient was resistant to seek outpatient mental health care. She refused further cognitive behavioral t herapy despite the fact that I strongly recommended. She reported another 2 recent hospitalization for presumed status epilepticus wi th intubation with air lift to [facility] in November and [facility] in December. No medical record is available from [facility] as this moment. Medical records from [facility] stay w as reviewed. Video EEG recorded multiple episodes of body shaking with unrespon sive that had no EEG correlation, consistent with psychogenic nonepileptic seizu res. Notably, lab result upon admission is not consistent with convulsive statu s epilepticus. There was no leukocytosis or metabolic acidosis. She she is concerned that brain MRI at [facility] was reported with t manjinder findings of "two spots" in the brain. Notably, previous brain MRI studies in July 2019 and January 2019 in [facility] revealed stable nonspecific s ubcortical white matter foci of T2 hyperintensity in the frontal lobes bilateral ly. We will obtain medical records including images from [facility] to review. She has not had any recurrent seizures since recent hospital discharge on 2019. Will continue current AED treatment for epileptic seizures. Not ably, recent video EEG revealed rare focal epileptiform abnormalities in right t emporal region in addition to diffuse spike wave discharges. I discussed with h er further EMU admission for seizure characterization, epilepsy classification a nd potential AED management. Not interested the easiest option at this moment. I again had a long discussion with her about cognitive behavioral therapy which was very helpful to control her pseudoseizures in the past. However, she refus ed it. I advised her to continue seizure precautions, avoid alcohol, sleep depr ivation, stress, missing medications, etc. PQRS measures: -Smoking screening: Negative -Alcohol screening: Negative -Fall screening: Yes, seizures -Depression screening: Negative PLAN - Please obtain medical record from [facility] for recent hospitaliza tion, including brain MRI imagines and EEG results. - Medications: Continue levetiracetam 750 mg BID, lamotrigine 200 mg BID. - Consultation requested: Strongly recommend CBT treatment for pseudoseizures. Recommend to continue to follow up with psychiatry counselor. - VNS interrogated: n/a. - Seizure safety precautions including no driving, no climbing heights, no use o f heavy machinery, no bathe or swimming unsupervised, were discussed with the naresh quigley. - Appropriateness for surgical evaluation was reviewed: Yes, not a candidate. - Patient is in reproductive age: Yes, bilateral tubal ligation. - F/u with PCP for anxiety, psudoseizures and recent reported bradycardia per naresh quigley report during hospitalization in [facility]. The patient agreed with the plan as outlined above. Return to clinic in 1 - 2 months. I spent 40 minutes with this patient, more than half of that time was for patien t counseling. documented in this encounter Plan of Treatment Care Team Description Date Type Specialty Mariano Quezada MD [address] [facility] [place] 4[address] [place] [id number] 03/18/2020 Telemedicine Neurology Danielle Herron MD [address] [place] [address] 01/11/2021 Office Visit Hematology and Onco logy [...] filedocumented in this encounter Visit Diagnoses Diagnosis Intractable idiopathic generalized epil epsy - Primary Unspecified epilepsy with intractable e pilepsy Psychogenic nonepileptic seizure documented in this encounter
--- OUTSIDE RECORDS SUMMARY | 2020-04-27 22:20 | CCD ---
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 Name Role Phone Palka Seymour MD Unavailable Unavailabl e DawnPalak MD Unavailable Unavailabl e DawnPalak MD Unavailable Unavailabl e DawnPalak MD Unavailable Unavailabl e DawnPalak MD Unavailable Unavailabl e DawnPalak MD Unavailable Unavailabl e DawnPalak MD Unavailable Unavailabl e DawnPalak MD Unavailable Unavailabl e DawnPalak MD Unavailable Unavailabl e DawnPalak MD Unavailable Unavailabl e DawnPalak MD Unavailable Unavailabl e Dawn, Cid Sandoval Gene MD Unavailable Unavailabl e Dawn, Cid Sandoval Gene MD Unavailable Unavailabl e Dawn, Cid Sandoval Gene MD Unavailable Unavailabl e Dawn, Cid Sandoval Gene MD Unavailable Unavailabl e Dawn, Cid Sandoval Gene MD Unavailable Unavailabl e Dawn, Cid Sandoval Gene MD Unavailable Unavailabl e Dawn, Cid Sandoval Gene MD Unavailable Unavailabl e Dawn, Cid Sandoval Gene MD Unavailable Unavailabl e Dawn, Cid Sandoval Gene MD Unavailable Unavailabl e Dawn, Cid Sandoval Gene MD Unavailable Unavailabl e Dawn, Cid Sandoval Gene MD Unavailable Unavailabl e Dawn, Cid Sandoval Gene MD Unavailable Unavailabl e Dawn, Cid Sandoval Gene MD Unavailable Unavailabl e Dawn, Cid Sandoval Gene MD Unavailable Unavailabl e Dawn, Cid Sandoval Gene MD Unavailable Unavailabl e Dawn, Cid Sandoval Gene MD Unavailable Unavailabl e Dawn, Cid Sandoval Gene MD Unavailable Unavailabl e Dawn, Cid Sandoval Gene Unavailable Unavailabl e VENERUSJames MD Unavailable Unavailable VENERUSJames MD Unavailable Unavailable VENERUSJames MD Unavailable Unavailable VENERUSJames MD Unavailable Unavailable VENERUSJames MD Unavailable Unavailable VENERUSJames MD Unavailable Unavailable VENERUSJames MD Unavailable Unavailable VENERUSJames MD Unavailable Unavailable VENERUSJames MD Unavailable Unavailable JOSE, ABILIO ROSA MARIA CAR TESTER-C Unavailable Unavailable JOSE, ABILIO ROSA MARIA CAR TESTER-C Unavailable Unavailable JOSE, ABILIO ROSA MARIA CAR TESTER-C Unavailable Unavailable JOSE, ABILIO ROSA MARIA CAR TESTER-C Unavailable Unavailable JOSE, ABILIO ROSA MARIA CAR TESTER-C Unavailable Unavailable JOSE, ABILIO ROSA MARIA CAR TESTER-C Unavailable Unavailable JOSE, ABILIO ROSA MARIA CAR TESTER-C Unavailable Unavailable JOSE, ABILIO ROSA MARIA CAR TESTER-C Unavailable Unavailable JOSE, ABILIO ROSA MARIA CAR TESTER-C Unavailable Unavailable JOSE, ABILIO ROSA MARIA CAR TESTER-C Unavailable Unavailable JOSE, ABILIO ROSA MARIA CAR TESTER-C Unavailable Unavailable JOSE, ABILIO ROSA MARIA CAR TESTER-C Unavailable Unavailable JOSE, ABILIO ROSA MARIA CAR TESTER-C Unavailable Unavailable JOSE, ABILIO ROSA MARIA CAR TESTER-C Unavailable Unavailable JOSE, ABILIO ROSA MARIA CAR TESTER-C Unavailable Unavailable [place], Artis Dyer PA-C Unavailable Unavailable [place], M Manisha PA-C Unavailable Unavailable [place], M Manisha PA-C Unavailable Unavailable COOK, B BOO SUPERVISOR SINTERING PLANT Unavailable Unavailable COOK, B BOO SUPERVISOR SINTERING PLANT Unavailable Unavailable COOK, B BOO SUPERVISOR SINTERING PLANT Unavailable Unavailable COOK, B BOO SUPERVISOR SINTERING PLANT Unavailable Unavailable COOK, B BOO SUPERVISOR SINTERING PLANT Unavailable Unavailable COOK, B BOO SUPERVISOR SINTERING PLANT Unavailable Unavailable COOK, B BOO SUPERVISOR SINTERING PLANT Unavailable Unavailable COOK, B BOO SUPERVISOR SINTERING PLANT Unavailable Unavailable COOK, B BOO SUPERVISOR SINTERING PLANT Unavailable Unavailable COOK, B BOO SUPERVISOR SINTERING PLANT Unavailable Unavailable COOK, B BOO SUPERVISOR SINTERING PLANT Unavailable Unavailable COOK, B BOO SUPERVISOR SINTERING PLANT Unavailable Unavailable COOK, B BOO SUPERVISOR SINTERING PLANT Unavailable Unavailable COOK, B BOO SUPERVISOR SINTERING PLANT Unavailable Unavailable COOK, B BOO SUPERVISOR SINTERING PLANT Unavailable Unavailable COOK, B BOO SUPERVISOR SINTERING PLANT Unavailable Unavailable COOK, B BOO SUPERVISOR SINTERING PLANT Unavailable Unavailable COOK, B BOO SUPERVISOR SINTERING PLANT Unavailable Unavailable COOK, B BOO SUPERVISOR SINTERING PLANT Unavailable Unavailable COOK, B BOO SUPERVISOR SINTERING PLANT Unavailable Unavailable COOK, B BOO SUPERVISOR SINTERING PLANT Unavailable Unavailable COOK, B BOO SUPERVISOR SINTERING PLANT Unavailable Unavailable COOK, B BOO SUPERVISOR SINTERING PLANT Unavailable Unavailable COOK, B BOO SUPERVISOR SINTERING PLANT Unavailable Unavailable COOK, B BOO SUPERVISOR SINTERING PLANT Unavailable Unavailable COOK, B BOO SUPERVISOR SINTERING PLANT Unavailable Unavailable COOK, B BOO SUPERVISOR SINTERING PLANT Unavailable Unavailable COOK, B BOO SUPERVISOR SINTERING PLANT Unavailable Unavailable COOK, B BOO SUPERVISOR SINTERING PLANT Unavailable Unavailable COOK, B BOO SUPERVISOR SINTERING PLANT Unavailable Unavailable COOK, B BOO SUPERVISOR SINTERING PLANT Unavailable Unavailable COOK, B BOO SUPERVISOR SINTERING PLANT Unavailable Unavailable COOK, B BOO SUPERVISOR SINTERING PLANT Unavailable Unavailable COOK, B BOO SUPERVISOR SINTERING PLANT Unavailable Unavailable COOK, B BOO SUPERVISOR SINTERING PLANT Unavailable Unavailable COOK, B BOO SUPERVISOR SINTERING PLANT Unavailable Unavailable COOK, B BOO SUPERVISOR SINTERING PLANT Unavailable Unavailable COOK, B BOO SUPERVISOR SINTERING PLANT Unavailable Unavailable COOK, B BOO SUPERVISOR SINTERING PLANT Unavailable Unavailable COOK, B BOO SUPERVISOR SINTERING PLANT Unavailable Unavailable COOK, B BOO SUPERVISOR SINTERING PLANT Unavailable Unavailable COOK, B BOO SUPERVISOR SINTERING PLANT Unavailable Unavailable COOK, B BOO SUPERVISOR SINTERING PLANT Unavailable Unavailable COOK, B BOO SUPERVISOR SINTERING PLANT Unavailable Unavailable COOK, B BOO SUPERVISOR SINTERING PLANT Unavailable Unavailable COOK, B BOO SUPERVISOR SINTERING PLANT Unavailable Unavailable COOK, B BOO SUPERVISOR SINTERING PLANT Unavailable Unavailable COOK, B BOO SUPERVISOR SINTERING PLANT Unavailable Unavailable COOK, B BOO SUPERVISOR SINTERING PLANT Unavailable Unavailable COOK, B BOO SUPERVISOR SINTERING PLANT Unavailable Unavailable COOK, B BOO SUPERVISOR SINTERING PLANT Unavailable Unavailable COOK, B BOO SUPERVISOR SINTERING PLANT Unavailable Unavailable COOK, B BOO SUPERVISOR SINTERING PLANT Unavailable Unavailable COOK, B BOO SUPERVISOR SINTERING PLANT Unavailable Unavailable COOK, B BOO SUPERVISOR SINTERING PLANT Unavailable Unavailable COOK, B BOO SUPERVISOR SINTERING PLANT Unavailable Unavailable COOK, B BOO SUPERVISOR SINTERING PLANT Unavailable Unavailable COOK, B BOO SUPERVISOR SINTERING PLANT Unavailable Unavailable COOK, B BOO SUPERVISOR SINTERING PLANT Unavailable Unavailable COOK, B BOO SUPERVISOR SINTERING PLANT Unavailable Unavailable COOK, B BOO SUPERVISOR SINTERING PLANT Unavailable Unavailable COOK, B BOO SUPERVISOR SINTERING PLANT Unavailable Unavailable COOK, B BOO SUPERVISOR SINTERING PLANT Unavailable Unavailable IGOR, M CASTRO SUPERVISOR SINTERING PLANT Unavailable Unavailable IGOR, M CASTRO SUPERVISOR SINTERING PLANT Unavailable Unavailable IGOR, M CASTRO SUPERVISOR SINTERING PLANT Unavailable Unavailable IGOR, M CASTRO SUPERVISOR SINTERING PLANT Unavailable Unavailable IGOR, M CASTRO SUPERVISOR SINTERING PLANT Unavailable Unavailable IGOR, M CASTRO SUPERVISOR SINTERING PLANT Unavailable Unavailable IGOR, M CASTRO SUPERVISOR SINTERING PLANT Unavailable Unavailable IGOR, M CASTRO SUPERVISOR SINTERING PLANT Unavailable Unavailable IGOR, M CASTRO SUPERVISOR SINTERING PLANT Unavailable Unavailable IGOR, M CASTRO SUPERVISOR SINTERING PLANT Unavailable Unavailable IGOR, M CASTRO SUPERVISOR SINTERING PLANT Unavailable Unavailable IGOR, M CASTRO SUPERVISOR SINTERING PLANT Unavailable Unavailable IGOR, M CASTRO SUPERVISOR SINTERING PLANT Unavailable Unavailable IGOR, M CASTRO SUPERVISOR SINTERING PLANT Unavailable Unavailable IGOR, M CASTRO SUPERVISOR SINTERING PLANT Unavailable Unavailable IGOR, M CASTRO SUPERVISOR SINTERING PLANT Unavailable Unavailable IGOR, M CASTRO SUPERVISOR SINTERING PLANT Unavailable Unavailable IGOR, M CASTRO SUPERVISOR SINTERING PLANT Unavailable Unavailable IGOR, M CASTRO SUPERVISOR SINTERING PLANT Unavailable Unavailable IGOR, M CASTRO SUPERVISOR SINTERING PLANT Unavailable Unavailable IGOR, M CASTRO SUPERVISOR SINTERING PLANT Unavailable Unavailable IGOR, M CASTRO SUPERVISOR SINTERING PLANT Unavailable Unavailable IGOR, M CASTRO SUPERVISOR SINTERING PLANT Unavailable Unavailable IGOR, M CASTRO SUPERVISOR SINTERING PLANT Unavailable Unavailable IGOR, M CASTRO SUPERVISOR SINTERING PLANT Unavailable Unavailable IGOR, M CASTRO SUPERVISOR SINTERING PLANT Unavailable Unavailable IGOR, M CASTRO SUPERVISOR SINTERING PLANT Unavailable Unavailable IGOR, M CASTRO SUPERVISOR SINTERING PLANT Unavailable Unavailable IGOR, M CASTRO SUPERVISOR SINTERING PLANT Unavailable Unavailable IGOR, M CASTRO SUPERVISOR SINTERING PLANT Unavailable Unavailable IGOR, M CASTRO SUPERVISOR SINTERING PLANT Unavailable Unavailable IGOR, M CASTRO SUPERVISOR SINTERING PLANT Unavailable Unavailable Quezada, Xiangping Unavailable Unavailable Quezada, Xiangping Unavailable Unavailable Quezada, Xiangping Unavailable Unavailable Quezada, Xiangping Unavailable Unavailable Quezada, Xiangping Unavailable Unavailable Quezada, Xiangping Unavailable Unavailable Quezada, Xiangping Unavailable Unavailable Quezada, Xiangping Unavailable Unavailable Quezada, Xiangping Unavailable Unavailable Quezada, Xiangping Unavailable Unavailable Quezada, Xiangping Unavailable Unavailable Quezada, Xiangping Unavailable Unavailable Quezada, Xiangping Unavailable Unavailable Quezada, Xiangping Unavailable Unavailable Quezada, Xiangping Unavailable Unavailable Quezada, Xiangping Unavailable Unavailable Quezada, Xiangping Unavailable Unavailable Nyla NELSON MD Unavailable Unavailable Nyla NELSON MD Unavailable Unavailable RACH POWELL MD Unavailable Unavailable RACH POWELL MD Unavailable Unavailable RACH POWELL MD Unavailable Unavailable RACH POWELL MD Unavailable Unavailable BAKER, Fiona CLIFTON MD Unavailable Unavailable BAKER, L ELODIA ARENAS Unavailable Unavailable BAKER, Fiona CLIFTON MD Unavailable Unavailable BAKER, L ELODIA ARENAS Unavailable Unavailable BAKER, L ELODIA ARENAS Unavailable Unavailable BAKER, L ELODIA ARENAS Unavailable Unavailable BAKER, L ELODIA ARENAS Unavailable Unavailable BAKER, L ELODIA ARENAS Unavailable Unavailable BAKER, L ELODIA ARENAS Unavailable Unavailable BAKER, L ELODIA ARENAS Unavailable Unavailable BAKER, L ELODIA ARENAS Unavailable Unavailable BAKER, L ELODIA ARENAS Unavailable Unavailable BAKER, L ELODIA ARENAS Unavailable Unavailable BAKER, L ELODIA ARENAS Unavailable Unavailable BAKER, L ELODIA ARENAS Unavailable Unavailable BAKER, L ELODIA ARENAS Unavailable Unavailable BAKER, L ELODIA ARENAS Unavailable Unavailable BAKER, L ELODIA ARENAS Unavailable Unavailable BAKER, L ELODIA ARENAS Unavailable Unavailable BAKER, L ELODIA ARENAS Unavailable Unavailable BAKER, L ELODIA ARENAS Unavailable Unavailable BAKER, L ELODIA ARENAS Unavailable Unavailable BAKER, L ELODIA ARENAS Unavailable Unavailable BAKER, L ELODIA ARENAS Unavailable Unavailable BAKER, L ELODIA ARENAS Unavailable Unavailable BAKER, L ELODIA ARENAS Unavailable Unavailable BAKER, L ELODIA ARENAS Unavailable Unavailable BAKER, L ELODIA ARENAS Unavailable Unavailable BAKER, L ELODIA ARENAS Unavailable Unavailable BAKER, L ELODIA ARENAS Unavailable Unavailable BAKER, L ELODIA ARENAS Unavailable Unavailable BAKER, L ELODIA ARENAS Unavailable Unavailable BAKER, L ELODIA ARENAS Unavailable Unavailable BAKER, L ELODIA ARENAS Unavailable Unavailable BAKER, L ELODIA ARENAS Unavailable Unavailable BAKER, L ELODIA ARENAS Unavailable Unavailable BAKER, L ELODIA ARENAS Unavailable Unavailable BAKER, Fiona CLIFTON MD Unavailable Unavailable BAKER, L ELODIA ARENAS Unavailable Unavailable BAKER, L ELODIA ARENAS Unavailable Unavailable BAKER, L ELODIA ARENAS Unavailable Unavailable BAKER, L ELODIA ARENAS Unavailable Unavailable Gerardo Shane MD Unavailable Unavailable Gerardo Shane MD Unavailable Unavailable Gerardo Shane MD Unavailable Unavailable Gerardo Shane MD Unavailable Unavailable Skipton, E Nargis MD Unavailable Unavailable Skipton, E Nargis MD Unavailable Unavailable Skipton, E Nargis MD Unavailable Unavailable Skipton, E Nargis MD Unavailable Unavailable Skipton, E Nargis MD Unavailable Unavailable Skipton, E Nargis MD Unavailable Unavailable Skipton, E Nargis MD Unavailable Unavailable Skipton, E Nargis MD Unavailable Unavailable Skipton, E Nargis MD Unavailable Unavailable Skipton, E Nargis MD Unavailable Unavailable Skipton, E Nargis MD Unavailable Unavailable Skipton, E Nargis MD Unavailable Unavailable Skipton, E Nargis MD Unavailable Unavailable Skipton, E Nargis MD Unavailable Unavailable Skipton, E Nargis MD Unavailable Unavailable Skipton, E Nargis MD Unavailable Unavailable Skipton, E Nargis MD Unavailable Unavailable Skipton, E Nargis MD Unavailable Unavailable Skipton, E Nargis MD Unavailable Unavailable Skipton, E Nargis MD Unavailable Unavailable Skipton, E Nargis MD Unavailable Unavailable Skipton, E Nargis MD Unavailable Unavailable Skipton, E Nargis MD Unavailable Unavailable Skipton, E Nargis MD Unavailable Unavailable Skipton, E Nargis MD Unavailable Unavailable Skipton, E Nargis MD Unavailable Unavailable Skipton, E Nargis MD Unavailable Unavailable Skipton, E Nargis MD Unavailable Unavailable Skipton, E Nargis MD Unavailable Unavailable Skipton, E Nargis MD Unavailable Unavailable Skipton, E Nargis MD Unavailable Unavailable Skipton, E Nargis MD Unavailable Unavailable Skipton, E Nargis MD Unavailable Unavailable Skipton, E Nargis MD Unavailable Unavailable Skipton, E Nargis MD Unavailable Unavailable Skipton, E Nargis MD Unavailable Unavailable Skipton, E Nargis MD Unavailable Unavailable Skipton, E Nargis MD Unavailable Unavailable Skipton, E Nargis MD Unavailable Unavailable Skipton, E Nargis MD Unavailable Unavailable Skipton, E Nargis MD Unavailable Unavailable Skipton, E Nargis MD Unavailable Unavailable Skipton, E Nargis MD Unavailable Unavailable Skipton, E Nargis MD Unavailable Unavailable Skipton, E Nargis MD Unavailable Unavailable Skipton, E Nargis MD Unavailable Unavailable PHYSICIAN, ER Unavailable Unavailable Artis FONTENOT MD Unavailable Unavailable Artis FONTENOT MD Unavailable Unavailable Artis FONTENOT MD Unavailable Unavailable Artis FONTENOT MD Unavailable Unavailable Artis FONTENOT MD Unavailable Unavailable Artis FONTENOT MD Unavailable Unavailable Artis FONTENOT MD Unavailable Unavailable Artis FONTENOT MD Unavailable Unavailable Artis FONTENOT MD Unavailable Unavailable Artis FONTENOT MD Unavailable Unavailable Artis FONTENOT MD Unavailable Unavailable Artis FONTENOT MD Unavailable Unavailable CORIEArtis ROUSE MD Unavailable Unavailable CORIEArtis ROUSE MD Unavailable Unavailable CORIEArtis ROUSE MD Unavailable Unavailable CORIEArtis ROUSE MD Unavailable Unavailable CORIEArtis ROUSE MD Unavailable Unavailable CORIEArtis ROUSE MD Unavailable Unavailable CORIEArtis ROUSE MD Unavailable Unavailable CORIE, M NOELLE MD Unavailable Unavailable CORIEArtis ROUSE MD Unavailable Unavailable CORIEArtis ROUSE MD Unavailable Unavailable CORIEArtis ROUSE MD Unavailable Unavailable CORIEArtis ROUSE MD Unavailable Unavailable CORIEArtis ROUSE MD Unavailable Unavailable CORIEArtis ROUSE MD Unavailable Unavailable CORIEArtis ROUSE MD Unavailable Unavailable CORIEArtis ROUSE MD Unavailable Unavailable CORIEArtis ROUSE MD Unavailable Unavailable CORIEArtis ROUSE MD Unavailable Unavailable CORIEArtis ROUSE MD Unavailable Unavailable CORIEArtis ROUSE MD Unavailable Unavailable CORIEArtis ROUSE MD Unavailable Unavailable CORIEArtis ROUSE MD Unavailable Unavailable CORIEArtis ROUSE MD Unavailable Unavailable CORIEArtis ROUSE MD Unavailable Unavailable CORIEArtis ROUSE MD Unavailable Unavailable CORIEArtis ROUSE MD Unavailable Unavailable CORIEArtis ROUSE MD Unavailable Unavailable CORIEArtis ROUSE MD Unavailable Unavailable CORIEArtis ROUSE MD Unavailable Unavailable CORIEArtis ROUSE MD Unavailable Unavailable CORIEArtis ROUSE MD Unavailable Unavailable CORIEArtis ROUSE MD Unavailable Unavailable CORIEArtis ROUSE MD Unavailable Unavailable CORIEArtis ROUSE MD Unavailable Unavailable CORIEArtis ROUSE MD Unavailable Unavailable TURRIN, MANUELITO Unavailable Unavailable TURRIN, MANUELITO Unavailable Unavailable TURRIN, MANUELITO Unavailable Unavailable TURRIN, MANUELITO Unavailable Unavailable MARK, JESSEE Unavailable Unavailable James NOVOA MD Unavailable Unavailable James NOVOA MD Unavailable Unavailable James NOVOA MD Unavailable Unavailable James NOVOA MD Unavailable Unavailable James NOVOA MD Unavailable Unavailable James NOVOA MD Unavailable Unavailable James NOVOA MD Unavailable Unavailable James NOVOA MD Unavailable Unavailable James NOVOA MD Unavailable Unavailable Re-disclosure Warning The records that you are about to access may contain information from federally-assisted alcohol or drug abuse programs. If such information is present, then the following federally mandated warning applies: This information has been disclosed to you from records protected by federal confidentiality rules (42 CFR part 2). The federal rules prohibit you from making any further disclosure of this information unless further disclosure is expressly permitted by the written consent of the person to whom it pertains or as otherwise permitted by 42 CFR part 2. A general authorization for the release of medical or other information is NOT sufficient for this purpose. The Federal rules restrict any use of the information to criminally investigate or prosecute any alcohol or drug abuse patient.The records that you are about to access may contain highly sensitive health information, the redisclosure of which is protected by Article 27-F of the [facility] Public Health law. If you continue you may have access to information: Regarding HIV / AIDS; Provided by facilities licensed or operated by the [facility] Office of Mental Health; or Provided by the [facility] Office for People With Developmental Disabilities. If such information is present, then the following [facility] mandated warning applies: This information has been disclosed to you from confidential records which are protected by state law. State law prohibits you from making any further disclosure of this information without the specific written consent of the person to whom it pertains, or as otherwise permitted by law. Any unauthorized further disclosure in violation of state law may result in a fine or skilled nursing sentence or both. A general authorization for the release of medical or other information is NOT sufficient authorization for further disc losure. Allergies and Adverse Reactions Type Description Substance Reaction Status Data Source(s ) No Known Food Allergies No Known Food Allergies [facility] Drug allergy NOSE SPRAY NOSE SPRAY [facility] Drug allergy CT CONTRAST CT CONTRAST ANAPHYLAXIS [facility] CLASS CONTRAST MEDIA, IODINE RELATED CONTRAST MEDIA, I ODINE RELATED ANAPHYLAXIS [facility] BRANDNAME FENTANYL TRANSDERMAL SYSTEM FENTANYL TRANSDERMAL SYSTEM HI VES [facility] ENVIRONMENTAL LATEX LATEX [facility] Drug Class NO KNOWN ALLERGIES NO KNOWN ALLERGIES [facility] Drug allergy Fentanyl Fentanyl seizures Active eCW1 ([facility]) CT dye, contrast CT dye, contrast CT dye, contrast Anaphylaxis Acti ve eCW1 ([facility]) latex latex latex Anaphylaxis Active eCW1 ([facility]) latex latex latex Anaphylaxis Active eCW1 ([facility]) CT dye, contrast CT dye, contrast CT dye, contrast Anaphylaxis Acti ve eCW1 ([facility]) CT dye, contrast CT dye, contrast CT dye, contrast Anaphylaxis Acti ve eCW1 ([facility]) latex latex latex Anaphylaxis Active eCW1 ([facility]) Family History Family Member Name Family Member Gender Family Member Status Date o f Status Description Data Source(s) Unknown Female Problem MEDENT ([facility]) Encounters Encounter Providers Location Date Indications Data Source(s ) Outpatient Attender: NOELLE FONTENOT MD 01/11/2021 12:00:00 AM [facility] Outpatient Attender: NOELLE FONTENOT MD 04/27/2020 12:00:[address] [facility] [place] [address] [facility] [address] 04/20/2020 12:00:00 AM EST eCW1 ([facility]) Outpatient [address] [facility] [place] [address] 03/26/2020 12:00:00 AM EST eCW1 ([facility]) Outpatient Attender: Mariano Quezada [id number] 12:00:00 AM EST - 03/18/2020 08:34:34 AM EST 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, not intractable, without status epilepticus [facility] 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, not intractable, without status epilepticus Outpatient Attender: ROSA MARIA Kaye/Sindhu/Ron/Juwan hassan 03/03/2020 12:15:00 PM EST MED[facility] ([facility] Office Visit Attender: ELODIA Rivera Woman non profit director 02/2020 09:00:00 AM EST [facility] ([facility] [employer]) [place] [address] [facility] [address] 02/25/2020 12:00:00 AM EST eCW1 ([facility]) Office Visit Attender: ELODIA Rivera 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 Outpatient Referrer: VAMSI NOVOA MD 01/29/2020 10: 36:00 AM EDT seizure disorder [facility] seizure disorder Emergency Attender: MANUELITO CARVAJALConsultant: Nargis marte MD 01/29/2020 06:03:00 AM EDT - 01/29/2020 11:59:00 AM EDT [facility] Patient discharged. Outpatient Attender: Manisha Conrad PA-C [facility] Internal Med a t [place] 01/29/2020 03:53:00 AM EDT [facility] ([facility]) Outpatient Attender: Mariano Quezada [id number] 12:00:00 AM EDT - 01/28/2020 12:03:03 PM EDT [facility] Unknown [address] [facility] [address] 01/24/2020 12:00:00 AM EDT eCW1 ([facility]) Outpatient [address] [facility] [place] [address] 01/20/2020 12:00:00 AM EDT eCW1 ([facility]) Unknown [address] [facility] [place] [address] 01/15/2020 12:00:00 AM EDT eCW1 ([facility]) Inpatient Attender: RACH POWELL MDAttender: Sandoval Seymour MDAdmitter: Sandoval Seymour MDReferrer: Sandoval Seymour MDConsultant: Sandoval Seymour MD [id number] 01/11/2020 12:00:00 AM EDT - 01/14/2020 12:10:00 PM EDT Epilepsy, unspecified, not intractable, with status ep ilepticus [facility] Epilepsy, unspecified, not intractable, with status epilepticus Patient discharged. Outpatient Attender: NOELLE FONTENOT MD [id number] 12/17 12:00:00 AM EDT - 01/06/2020 10:20:34 AM EDT Hodgkin lymphoma, unspecified, unspecified site [facility] Hodgkin lymphoma, unspecified, unspecifi ed site Outpatient Referrer: GLEN NELSON MD [id number] 11/29/2019 02:0 3:00 AM EDT encephalitis [facility] encephalitis Outpatient Attender: Mariano Quezada [id number] 12:00:00 AM EDT - 11/05/2019 01:01:40 PM EDT [address] [address] 09/26/2019 12:00:00 AM EDT eCW1 ([facility]) [address] [place] [address] 09/24/2019 12:00:00 AM EDT [facility]CW1 [facility]) Outpatient Attender: BOO HEAD NP Physical Therapy 09/11/2019 0 8:30:00 AM EDT MEDENT ([facility]) [address] [place] [address] 09/03/2019 12:00:00 AM EDT eCW1 ([facility] Outpatient Attender: BOO HEAD SUPERVISOR [employer] Physical Therapy 08/30/2019 1 0:45:00 AM EDT MEDENT ([facility]) [facility] [address] [place] [address], [place] [address] 08/27/2019 12:00:00 AM EDT eCW1 ([facility]) [facility] [address] [place] [address] N [place] [address] 08/22/2019 12:00:00 AM EDT eCW1 ([facility]) [address] [place] [address] 08/20/2019 12:00:00 AM EDT eCW1 [facility]) Outpatient Attender: Mariano Damien [id number] 12:00:00 AM EDT - 08/07/2019 03:31:04 PM EDT 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, not intractable, without status epilepticus [facility] 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, not intractable, without status epilepticus [address] [address] 08/02/2019 12:00:00 AM EDT eCW1 ([facility]) [address] [place] [address] 07/29/2019 12:00:00 AM EDT eCW1 ([facility]) [address] [place] [address] 07/29/2019 12:00:00 AM EDT eCW1 ([facility]) [address], [place] [address] 07/29/2019 12:00:00 AM EDT eCW1 ([facility]) Outpatient 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 01:00:00 PM EST MEDENT ([facility] [employer]) [address] [address] 06/04/2019 12:00:00 AM EST eCW1 ([facility]) [address] [address] 06/03/2019 12:00:00 AM EST eCW1 ([facility]) [address], [place] [address] 05/30/2019 12:00:00 AM EST eCW1 ([facility]) [address] [place] [address] 05/30/2019 12:00:00 AM EST eCW1 ([facility]) [address], [place] [address] 05/29/2019 12:00:00 AM EST eCW1 ([facility]) [address], [place] [address] 05/21/2019 12:00:00 AM EST eCW1 ([facility]) Outpatient 04/26/2019 06:05:00 PM EST [facility] Emergency Attender: VAMSI NOVOA MDConsultant: Nargis hayward MD 04/26/2019 04:04:00 PM EST - 04/26/2019 07:47:00 PM EST [facility] Patient discharged. 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 Outpatient Attender: NOELLE FONTENOT MD [id number] 09/2019 12:00:00 AM EST - 04/22/2019 03:02:39 PM EST Hodgkin lymphoma, unspecified, unspecified site [facility] Hodgkin lymphoma, unspecified, unspecifi ed site [address], [place] [address] 03/26/2019 12:00:00 AM EST [facility]CW1 ([facility]) [address], [place] [address] 03/25/2019 12:00:00 AM EST eCW1 ([facility]) Outpatient Attender: CASTRO COSTA NP [employer] non profit [employer] 08/2018 08:15:00 AM EST MEDENT ([facility] [employer]) Outpatient Attender: ELODIA [employer]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 IIV4 04/01/2020 12:40:00 PM EST completed MEDENT ([facility] ) Medications Medication Brand Name Start Date Product Form Dose Route Admi nistrative Instructions Pharmacy Instructions Status Indications Reaction Description Data Source(s) Levetiracetam 750 MG Oral Tablet levETIRAcetam 750 MG Oral Tablet (KEPPRA) levETIRAcetam 750 MG Oral Tablet (KEPPRA) 03/18/2020 12:00:00 AM EST 750 mg Oral active Take 1 tablet by tata th Two Times Daily [facility] lamotrigine 200 MG Oral Tablet lamoTRIgine 200 MG Oral Tablet (LaMICtal) lamoTRIgine 200 MG Oral Tablet (LaMICtal) 03/18/2020 12:00:00 AM EST 200 mg Oral active Nonintractable g eneralized idiopathic epilepsy without status epilepticus Take 1 tablet by mouth Two Times Daily [facility] Nonintractable generalized idiopathic ep ilepsy without status epilepticus POLYETHYLENE GLYCOL 3350 142 MG/ML Oral Solution Polyethylene Glycol 3350 17 GM/SCOOP Oral Powder (GLYCOLAX) Polyethylene Glycol 3350 17 GM/SCOOP Ora l Powder (GLYCOLAX) 02/21/2020 12:00:00 AM EST active MIX 17 GRAMS IN 8 OUNCES OF WATER OR JUICE AND TK PO D PRN FOR CONSTIPATION [facility] Acetaminophen 325 MG / Oxycodone Hydroch loride 5 MG Oral Tablet oxyCODONE- Acetaminophen 5-325 MG Oral Tablet (PERCOCET) oxyCODONE-Acetaminophen 5-325 MG Oral Tablet (PERCOCET) 02/20/2020 12:00:00 AM EST active TK 2 TS PO Q 4 H PRF PAIN. MDD [address] [place] [address] NITROFURANTOIN, MACROCRYSTALS 25 MG / Ni trofurantoin, Monohydrate 75 MG Oral Capsule Nitrofurantoin Monohyd Macro 100 MG Oral Capsule (MACROBID) Nitrofurantoin Monohyd Macro 100 MG Oral Capsule (MACROBID) 02/20/2020 12:00:00 AM EST active TK 1 C PO BID [facility] celecoxib 200 MG Oral Capsule [Celebrex] Celebrex 02/19/2020 12 :00:00 AM EST ORAL active MEDENT ([facility] [employer]) Acetaminophen 325 MG / Oxycodone Hydrochloride 5 MG Or al Tablet [Percocet] Percocet 02/18/2020 12:00:00 AM EST ORAL active MEDENT ([facility] [employer]) Acetaminophen 325 MG / Hydrocodone Mounika trate 5 MG Oral Tablet HYDROcodone- Acetaminophen 5-325 MG Oral Tablet (LORTAB) HYDROcodone-Acetaminophen 5-325 MG Oral Tablet (LORTAB) 02/14/2020 12:00:00 AM EDT active TK 2 TS PO Q 4 H PRF PAIN. [address] Acetaminophen 325 MG / Hydrocodone Bitartrate 5 MG Oral Tabl et [Topanga] Topanga 02/11/2020 12:00:00 AM EDT ORAL completed MEDENT ([facility] [employer]) Ibuprofen 600 MG Oral Tablet Ibuprofen 02/11/2020 12:00:00 AM EDT ORAL active MEDENT ([facility] [employer]) Magnesium Hydroxide 80 MG/ML Oral Suspen shanna magnesium hydroxide (MILK OF MAGNESIA) 400 MG/5ML suspension 45 mL magnesium hydroxide (MILK OF MAGNESIA) 4 00 MG/5ML suspension 45 mL 01/13/2020 10:00:00 PM EDT 45 mL Oral active 45 mL, Oral, Nightly, First dose on Mon01/13/20 at 2200, For 30 days
If serum creatinine > 2 notify provider before administering.
[facility] Medication administered onsite Docusate Sodium 100 MG Oral Capsule docusate sodium (C OLACE) capsule 100 mg docusate sodium (COLACE) capsule 100 mg 01/13/2020 09:00:00 AM EDT 100 mg Oral active 100 mg, Oral, 2 Times Daily, First dose on Mon01/13/20 at 0900, For 30 days [facility] Medication administered onsite sennosides, GROUP HOME 8.6 MG Oral Tablet senna tablet 2 tablet sen na tablet 2 tablet 01/13/2020 07:45:55 AM EDT 2 {tbl} Oral active 2 tablet, Oral, Nightly PRN, Constipation, Starting 01/13/20 at 0745, For 30 days [facility] Medication administered onsite sennosides, GROUP HOME 35.2 MG/ML Oral Solution senna (SENOKO T) syrup 10 mL senna (SENOKOT) syrup 10 mL 01/13/2020 07:45:55 AM EDT 10 mL Oral active 10 mL, Oral, Nightly PRN, Constipation, Starting Mon01/13/20 at 0745, For 30 days [facility] Medication administered onsite Bisacodyl 10 MG Rectal Suppository bisacodyl (DULCOLAX ) suppository 10 mg bisacodyl (DULCOLAX) suppository 10 mg 01/13/2020 07:45:55 AM EDT 10 mg Rectal active 10 mg, Rectal, Every 72 hours PRN, Constipation, Starting Mon01/13/20 at 0745, For 30 days
Hold if patient has had BM within the past 2 days.
[facility] Medication administered onsite magnesium sulfate in dextrose 5 % infusion (premix) 1 g [id number] -[id number] 01/13/2020 04:00:00 AM EDT 1 g Intravenous completed 1 g, Intravenous, Administer over 60 Minutes, Once, Mon01/13/20 at 0400, For 1 dose [facility] Medication administered onsite 2 ML Metoclopramide 5 MG/ML Prefilled Sy ringe metoclopramide (REGLAN) injection 10 mg metoclopramide (REGLAN) injection 10 mg 01/13/2020 04:00:00 AM E DT 10 mg Intravenous completed 10 mg, I ntravenous, Once, Mon01/13/20 at 0400, For 1 dose [facility] Medication administered onsite Loratadine 10 MG Oral Tablet loratadine (CLARITIN) tab let 10 mg loratadine (CLARITIN) tablet 10 mg 01/13/2020 04:00:00 AM EDT 10 mg Oral completed 10 mg, Oral, Once, Mon01/13/20 at 0400, For 1 dose [facility] Medication administered onsite Melatonin 5 MG Oral Tablet melatonin tablet 5 mg melatonin t ablet 5 mg 01/13/2020 02:30:00 AM EDT 5 mg Oral completed 5 mg, Oral, Once, Mon01/13/20 at 0230, For 1 dose [facility] Medication administered onsite Acetaminophen 10 MG/ML Injectable Soluti on acetaminophen (OFIRMEV) infusion 1,000 mg acetaminophen (OFIRMEV) infusion 1,000 mg 01/13/2020 01:45:00 AM EDT 1000 mg Intravenous completed 1,000 mg , Intravenous, Administer over 15 Minutes, Once, Mon01/13/20 at 0145, For 1 dose
Maximum dose 3 gm daily from all sources
[facility] Medication administered onsite Metoprolol Tartrate 25 MG Oral Tablet me toprolol tartrate (LOPRESSOR) tablet 25 mg metoprolol tartrate (LOPRESSOR) tablet 25 mg 01/13/2020 12:00:00 AM EDT 25 mg Oral completed 25 mg, Oral, Once, Mon01/13/20 at 0000, For 1 dose [facility] Medication administered onsite pantoprazole 40 MG Delayed Release Oral Tablet pantoprazole (PROTONIX) EC tablet 40 mg pantoprazole (PROTONIX) EC tablet 40 mg 01/12/2020 09:45:00 PM E DT 40 mg Oral active 40 mg, Ora l, Daily Standard, First dose on 01/12/20 at 2145, For 30 days
Do not crush or chew
[facility] Medication administered onsite alginic acid 200 MG / Calcium Carbonate 80 MG / magnesium trisilicate 20 MG / Sodium Bicarbonate 70 MG Oral Tablet calcium carbonate (TUMS) chewable tablet 500 mg calcium carbonate (TUMS) chewable tablet 500 mg 2019 09:37:32 PM EDT 500 mg Oral active 500 mg, Oral, Three Times Daily-PRN, Indigestion, Heartburn, Starting 01/12/20 at 2137, For 30 days [facility] Medication administered onsite Famotidine 8 MG/ML Oral Suspension famot idine (PEPCID) 40 MG/5ML oral suspension 20 mg famotidine (PEPCID) 40 MG/5ML oral suspension 20 mg 09:00:00 PM EDT 20 mg Oral active 20 mg, O ral, 2 Times Daily, First dose on 01/12/20 at 2100, For 30 days
Tablet order changed to suspension due to backorder on tablets
[facility] Medication administered onsite sodium chloride 0.9 % bolus 500 mL 01/12/2020 08:15:00 PM EDT 500 mL Intravenous completed 500 mL, Intravenous, Once, [place] 01/12/20 at 2015, For 1 dose [facility] Medication administered onsite 1 ML Ketorolac Tromethamine 15 MG/ML Car tridge ketorolac (TORADOL) 15 MG/ML injection 15 mg ketorolac (TORADOL) 15 MG/ML injection 15 mg 0 09:45:00 AM EDT 15 mg Intravenous completed 15 mg, Intravenous, Once, [place] 01/12/20 at 0945, For 1 dose [facility] Medication administered onsite 0.4 ML Enoxaparin sodium 100 MG/ML Prefi lled Syringe enoxaparin sodium (LOVENOX) injection 40 mg enoxaparin sodium (LOVENOX) injection 40 mg 01/12/2020 09:00:00 AM EDT 40 mg Subcutaneous active 40 mg, Subcutaneous, Daily Standard, First dose on 01/12/20 at 0900, For 30 days
Non Patients: body weight < 150 kg, CrCl > 30 mL/min. Guidelines for Lovenox:MUST wait 24 hours before starting Enoxaparin if patient has epidural catheter.D/C Enoxaparin 10-12 hours prior to removing epidural catheter.May restart Enoxaparin 24 hours after epidural catheter has been removed.
[facility] Medication administered onsite sodium chloride 0.9 % bolus 1,000 mL 01/12/2020 05:45: 00 AM EDT 1000 mL Intravenous completed 1,000 mL , Intravenous, Once, [place] 01/12/20 at 0545, For 1 dose [facility] Medication administered onsite sodium chloride 0.9 % bolus 500 mL 01/12/2020 01:15:00 AM EDT 500 mL Intravenous completed 500 mL, Intravenous, Once, [place] 01/12/20 at 0115, For 1 dose [facility] Medication administered onsite sodium chloride 0.9 % bolus 500 mL 01/11/2020 10:45:00 PM EDT 500 mL Intravenous completed 500 mL, Intravenous, Once, 01/11/20 at 2245, For 1 dose [facility] Medication administered onsite Levetiracetam 100 MG/ML Oral Solution le vETIRAcetam (KEPPRA) 100 MG/ML oral solution 750 mg levETIRAcetam (KEPPRA) 100 MG/ML oral solution 750 mg 01/11/2020 09:00:00 PM EDT 750 mg Per NG tube active 750 mg, Per NG tube, 2 Times Daily, First dose on 01/11/20 at 2100, For 30 days [facility] Medication administered onsite ondansetron (ZOFRAN) injection 4 mg 01/11/2020 08:23:54 PM EDT 4 mg Intravenous active [Order 1 Star t] Name: ondansetron (ZOFRAN) injection 4 mg Signed Summary: 4 mg, Intravenous, Every 8 hours PRN, Nausea, Vomiting, Starting 01/11/20 at 2022, For 7 doses [Order 1 End] [Order 2 Start] Name: ondansetron (ZOFRAN) tablet 4 mg Signed Summary: 4 mg, Oral, Every 8 hours PRN, Nausea, Vomiting, Starting 01/11/20 at 2022, For 7 doses [Order 2 End] [facility] Medication administered onsite ondansetron (ZOFRAN) 4 MG/2ML injection [id number] 01/11/20 08:06:55 PM EDT completed Starting Sat at 2005, For 1 dose
Brayan SANCHEZ : cabinet override
[facility] Medication administered onsite Acetaminophen 32 MG/ML Oral Solution aleksandr taminophen (TYLENOL) 160 MG/5ML solution (ADULT) 650 mg acetaminophen (TYLENOL) 160 MG/5ML solution (ADULT) 65 0 mg 01/11/2020 07:45:40 PM EDT 650 mg Oral active 650 mg, Oral, Every 6 hours PRN, Mild Pain (Pain Scale Score 1-3), Starting 01/11/20 at 1945, For 30 days
Maximum dose of acetaminophen is 3,000 mg from all sources in 24 hours.
[facility] Medication administered onsite propofol (DIPRIVAN) infusion 1,000 mg/100 mL [id number] 01/11/2020 01:45:00 PM EDT ug/kg/min Intravenous aborted 1 0-80 mcg/kg/min 81.9 kg (4.914-39.312 mL/hr, rounded to 4.9-39.3 mL/hr), Intravenous, at 4.9- 39.3 mL/hr, Continuous, Starting 01/11/20 at 1345, For 30 days
Starting dose = 10 mcg/kg/minTitrate to maintain RASS of -3 Increase by 5-10 mcg/kg/minMax Dose = 80 mcg/kg/min Titrate down if RASS of -3
[facility] Medication administered onsite dexmedetomidine (PRECEDEX) in NaCl 0.9 % infusion 4 mcg/mL 1 [id number] 01/11/2020 01:30:00 PM EDT ug/kg/h Intravenous aborted 0.1-1.5 mcg/kg/hr 81.9 kg (2.0475-30.7125 mL/hr, rounded to 2-30.7 mL/hr), Intravenous, at 2-30.7 mL/hr, Continuous, Starting 01/11/20 at 1330, For 30 days
Starting dose = 0.2 mcg/kg/hrTitrate to maintain RASS of -3 Titrate by 0.1-0.2 mcg/kg/hrMax Dose = 1.5 mcg/kg/hr Titrate down if RASS of -3
[facility] Medication administered onsite NaCl infusion 0.9 % [id number] 01/11/2020 12:45:00 PM EDT Intravenous aborted at 100 mL/hr, Intrav enous, Continuous, Starting 01/11/20 at 1245, For 30 days [facility] Medication administered onsite lamotrigine 100 MG Oral Tablet lamoTRIgine (LaMICtal) tablet 200 mg lamoTRIgine (LaMICtal) tablet 200 mg 01/11/2020 11:45:00 AM EDT 200 mg Oral active 200 mg, Oral, 2 Times Daily, First dose (after last reorder) on 01/11/20 at 1145, For 30 days [facility] Medication administered onsite Levetiracetam 750 MG Oral Tablet levETIRAcetam (KEPPRA ) tablet 750 mg levETIRAcetam (KEPPRA) tablet 750 mg 01/11/2020 10:30:00 AM EDT 750 m g Oral aborted 750 mg, Oral, 2 Times Daily, First dose on 01/11/20 at 1030, For 30 days [facility] Medication administered onsite propofol (DIPRIVAN) infusion 200 mg/20 mL [id number] 01/11/2020 09:00:00 AM EDT ug/kg/min Intravenous completed 10-80 mcg/kg/min 81.9 kg (4.914-39.312 mL/hr, rounded to 4.9-39.3 mL/hr), Intravenous, at 4.9- 39.3 mL/hr, Once, 01/11/20 at 0900, For 1 dose
Starting dose = 10 mcg/kg/minTitrate to maintain RASS of -2 Increase by 5-10 mcg/kg/minMax Dose = 80 mcg/kg/min Titrate down if RASS of 0
[facility] Medication administered onsite Levothyroxine Sodium 0.2 MG Oral Tablet [Synthroid] Synthroid 200 MCG Oral Tablet Synthroid 200 MCG Oral Tablet 10/07/2019 12:00:00 AM EDT 200 ug Oral aborted Take 200 mcg by mouth daily [facility] Levothyroxine Sodium 0.2 MG Oral Tablet [Synthroid] Synthroi d 09/11/2019 12:00:00 AM EDT ORAL active M EDENT ([facility]) Levetiracetam 750 MG Oral Tablet levETIRAcetam 750 MG Oral Tablet (KEPPRA) levETIRAcetam 750 MG Oral Tablet (KEPPRA) 08/07/2019 12:00:00 AM EDT 750 mg Oral aborted Take 1 tablet by tata th Two Times Daily [facility] lamotrigine 200 MG Oral Tablet lamoTRIgine 200 MG Oral Tablet (LaMICtal) lamoTRIgine 200 MG Oral Tablet (LaMICtal) 08/07/2019 12:00:00 AM EDT 200 mg Oral aborted Nonintractable g eneralized idiopathic epilepsy without status epilepticus Take 1 tablet by mouth Two Times Daily [facility] Nonintractable generalized idiopathic ep ilepsy without status epilepticus Acetaminophen 325 MG / Hydrocodone Bitartrate 5 MG Oral Tabl et [Topanga] Topanga 06/11/2019 12:00:00 AM EST ORAL active MEDENT ([facility] [employer]) Ibuprofen 600 MG Oral Tablet Ibuprofen 06/11/2019 12:00:00 AM EST ORAL active MEDENT ([facility] [employer]) Levothyroxine Sodium 0.175 MG Oral Tablet Levothyroxin e Sodium 175 MCG Levothyroxine Sodium 175 MCG 05/30/2019 12:00:00 AM EST active 1 tablet in the morning on an empty stomach eCW1 ([facility]) gabapentin 100 MG Oral Capsule Gabapentin 04/24/2019 12:00:00 AM EST active MEDENT ([facility] [employer]) Metronidazole 500 MG Oral Tablet Metronidazole 04/24/2019 12:00:00 AM EST ORAL completed MEDENT ([facility] [employer]) Levothyroxine Sodium 0.15 MG Oral Tablet Levothyroxine Sodium 150 MCG Levothyroxine Sodium 150 MCG 03/26/2019 12:00:00 AM EST active 1 tablet in the morning on an empty stomach eCW1 ([facility]) Levothyroxine Sodium 0.15 MG Oral Tablet Levothyroxine Sodium 150 MCG Levothyroxine Sodium 150 MCG 03/26/2019 12:00:00 AM EST active 1 tablet in the morning on an empty stomach eCW1 ([facility]) 1 ML heparin sodium, porcine 03210 UNT/ML Injection Heparin Sodium (Porcine) 03/13/2019 12:00:00 AM EST completed MEDENT ([facility] [employer]) Pentosan Polysulfate 100 MG Oral Capsule [Elmiron] Elmiron 03/04/2019 12:00:00 AM EST ORAL active MEDENT ([facility] [employer]) Glucagon 1 MG Injection Glucagon Emergency 1 MG Glucagon Iona rgency 1 MG 02/28/2019 12:00:00 AM EST active Glucagon Emergency 1 MG eCW1 ([facility]) Glucagon 1 MG Injection Glucagon Emergency 1 MG Glucagon Iona rgency 1 MG 02/28/2019 12:00:00 AM EST active as directed eCW1 ([facility]) Glucagon 1 MG Injection Glucagon Emergency 1 MG Glucagon Iona rgency 1 MG 02/28/2019 12:00:00 AM EST active Glucagon Emergency 1 MG eCW1 ([facility]) Glucagon 1 MG Injection Glucagon Emergency 1 MG Glucagon Iona rgency 1 MG 02/28/2019 12:00:00 AM EST active as directed eCW1 ([facility]) Glucagon 1 MG Injection Glucagon HCL (Diagnostic) 02/28/2019 12:00: 00 AM EST active MEDENT ([facility]) Glucagon 1 MG Injection Glucagon Emergency 1 MG Glucagon Iona rgency 1 MG 02/28/2019 12:00:00 AM EST active Glucagon Emergency 1 MG eCW1 ([facility]) Glucagon 1 MG Injection Glucagon Emergency 1 MG Glucagon Iona rgency 1 MG 02/28/2019 12:00:00 AM EST active as directed eCW1 ([facility]) Glucagon 1 MG Injection Glucagon Emergency 1 MG Glucagon Iona rgency 1 MG 02/28/2019 12:00:00 AM EST active Glucagon Emergency 1 MG eCW1 ([facility]) Glucagon 1 MG Injection Glucagon Emergency 1 MG Glucagon Iona rgency 1 MG 02/28/2019 12:00:00 AM EST active Glucagon Emergency 1 MG eCW1 ([facility]) Glucagon 1 MG Injection Glucagon Emergency 1 MG Glucagon Iona rgency 1 MG 02/28/2019 12:00:00 AM EST active as directed eCW1 ([facility]) Glucagon 1 MG Injection Glucagon Emergency 1 MG Glucagon Iona rgency 1 MG 02/28/2019 12:00:00 AM EST active Glucagon Emergency 1 MG eCW1 ([facility]) Glucagon 1 MG Injection Glucagon Emergency 1 MG Glucagon Iona rgency 1 MG 02/28/2019 12:00:00 AM EST active as directed eCW1 ([facility]) Glucagon 1 MG Injection Glucagon Emergency 1 MG Glucagon Iona rgency 1 MG 02/28/2019 12:00:00 AM EST active Glucagon Emergency 1 MG eCW1 ([facility]) Glucagon 1 MG Injection Glucagon Emergency 1 MG Glucagon Iona rgency 1 MG 02/28/2019 12:00:00 AM EST active Glucagon Emergency 1 MG eCW1 ([facility]) lamotrigine 200 MG Oral Tablet lamoTRIgine (LAMICTAL) 200 MG tablet lamoTRIgine (LAMICTAL) 200 MG tablet 10/08/2018 12:00:00 AM EDT 200 mg Oral aborted Nonintractable generalized idiopathic epilepsy without status epilepticus Take 1 tablet by mouth Two Times Daily [facility] Nonintractable generalized idiopathic ep ilepsy without status epilepticus Levetiracetam 750 MG Oral Tablet levETIRAcetam (KEPPRA ) 750 MG tablet levETIRAcetam (KEPPRA) 750 MG tablet 10/08/2018 12:00:00 AM EDT 750 m g Oral aborted Take 1 tablet by mouth Two T imes Daily [facility] Amitriptyline Hydrochloride 25 MG Oral T ablet Amitriptyline HCl 25 MG Oral Tablet (ELAVIL) Amitriptyline HCl 25 MG Oral Tablet (ELAVIL) 25 mg Oral aborted Take 25 mg by mouth Two Times [facility] gabapentin 100 MG Oral Capsule Gabapentin 100 MG Oral Capsule (NEURONTIN) Gabapentin 100 MG Oral Capsule (NEURONTIN) 100 mg Oral aborted Take 100 mg by mouth Two Times Daily [facility] lamotrigine 200 MG Oral Tablet lamoTRIgine 200 MG Oral Tablet (LaMICtal) lamoTRIgine 200 MG Oral Tablet (LaMICtal) 200 mg Oral aborted Take 200 mg by mouth Two Times Daily [facility] Levetiracetam 750 MG Oral Tablet levETIRAcetam 750 MG Oral Tablet (KEPPRA) levETIRAcetam 750 MG Oral Tablet (KEPPRA) 750 mg Oral aborted Take 750 mg by mouth Two Times Daily [facility] Levothyroxine Sodium 0.112 MG Oral Table t levothyroxine (SYNTHROID, LEVOTHROID) 112 MCG tablet levothyroxine (SYNTHROID, LEVOTHROID) 112 MCG tablet 112 ug Oral aborted Take 112 mcg by mout h Daily [facility] Insurance Providers Payer name Policy type / Coverage type Policy ID Covered green party ID Covered green party's relationship to [place] Policy [place] Plan Information EMEDNY [id number] SP [id number] MEDICAID M [id number] Self [id number] MEDICAID - [id number] EMERGENCY ROOM [id number] 18 [id number] MEDICAID HEA [id number] MEDICAID M [id number] Self [id number] MEDICAID [id number] SP [id number] ANS-Medicaid [id number] ANSI-Medicaid [id number] ANSI-Medicaid [id number] ANSI-Medicaid [id number] ANSI-Medicaid [id number] ANSI-Medicaid [id number] ANSI-Medicaid [id number] ANSI-Medicaid [id number] ANSI-Medicaid [id number] ANSI-Medicaid [id number] ANSI-Medicaid [id number] ANSI-Medicaid [id number] ANSI-Medicaid [id number] ANSI-Medicaid [id number] MEDICAID M [id number] ANSI-Medicaid [id number] ANSI-Medicaid [id number] ANSI-Medicaid [id number] ANSI-Medicaid [id number] ANSI-Medicaid [id number] ANSI-Medicaid [id number] ANSI-Medicaid [id number] ANSI-Medicaid [id number] ANS-Medicaid [id number] MEDICAID [id number] MEDICAID [id number] MEDICAID [id number] UNAVAILABLE UNAVAILA BLE MEDICAID [place] CLINIC [id number] Medicaid [facility] Medicaid Self SELF PAY UNAVAILABLE UNAVAILA BLE MEDICAID -PHYSICIAN [id number] MEDICAID-O/P [id number] MEDICAID - CLINIC [id number] Medicaid [place] Self Medicaid [id number] MEDICAID W [id number] S [id number] MEDICAID 3 [id number] SELFPAY 5 UNAVAILABLE 1 UNAVAILA BLE MEDICAID -RECURRING [id number] MEDICAID - CLINIC [id number] W UNAVAILABLE UNAVAILA BLE Problems, Conditions, and Diagnoses Code Display Name Description Problem Type Effective Dates Data Source(s) H91.93 [id number] Decreased hearing of both ears Problem 04/20/2020 12:00:00 AM EST eCW1 ([facility]) G47.19 [id number] Excessive daytime sleepiness Problem 01/20/2020 12:00:00 AM EDT eCW1 ([facility]) G40.909 [id number] Seizure disorder Problem 01/20/2020 12:00:00 AM EDT eCW1 ([facility]) F44.5 [id number] Pseudoseizures Problem 08/02/2019 12:00:00 A M EDT eCW1 ([facility]) F44.5 [id number] Pseudoseizures Problem 08/02/2019 12:00:00 A M EDT eCW1 ([facility]) [id number] Chronic interstitial cystitis Chronic interstitial cys titis Problem 04/08/2019 12:00:00 AM EST [facility] ([employer]) [id number] History of Hodgkin lymphoma History of Hodgkin lymphom a Problem 04/08/2019 12:00:00 AM EST [facility] ([employer]) I73.00 [id number] Raynaud's phenomenon without gangrene Pro blem 03/25/2019 12:00:00 AM EST eCW1 ([facility]) N30.10 809390217 Interstitial cystitis Problem 03/25/2019 12: 00:00 AM EST eCW1 ([facility]) E16.2 816029536 Hypoglycemia Problem 03/25/2019 12:00:00 AM EST eCW1 ([facility]) [id number] Raynaud's phenomenon Raynaud's phenomenon Problem 03/25/2019 12:00:00 AM EST [facility] ([facility]) [id number] Hypoglycemia Hypoglycemia Problem 03/25/2019 12:00:00 A M EST [facility] ([facility]) E16.2 [id number] Hypoglycemia Problem 03/25/2019 12:00:00 AM EST eCW1 ([facility]) I73.00 [id number] Raynaud's phenomenon without gangrene Pro blem 03/25/2019 12:00:00 AM EST eCW1 ([facility]) N30.10 [id number] Interstitial cystitis Problem 03/25/2019 12: 00:00 AM EST eCW1 ([facility]) G40.309 Generalized idiopathic epile psy and epileptic syndromes, not intractable, 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 seizure disorder seizure disorder Diagnosis 01/29/2020 10 :36:00 AM [facility] [id number] Latex allergy status Latex allergy status Diagnosis 01/29/2020 06:03:00 AM [facility] E039 Hypothyroidism, unspecified Hypothyroidism, unspecifie d Diagnosis 01/29/2020 06:03:00 AM [facility] [id number] Unspecified asthma, uncomplicated Unspecified as thma, uncomplicated Diagnosis 01/29/2020 06:03:00 AM [facility] R1084 Generalized abdominal pain Generalized abdominal pain Diagnosis 01/29/2020 06:03:00 AM [facility] [id number] Epilepsy, unspecified, not intractable, without status epilepticus Epilepsy, unspecified, not intractable, without status epilepticus Diagnosis 01/29/2020 06:03:00 AM [facility] G40.901 Epilepsy, unspecified, not intractable, with status epilepticus Epilepsy, unspecified, not intractable, with status epilepticus Diagnosis 01/12/2020 01:58:11 PM [facility] s/p seizure s/p seizure Diagnosis 11/29/2019 02:03:00 AM [facility] intubated intubated Diagnosis 11/29/2019 02:03:00 AM [facility] encephalitis encephalitis Diagnosis 11/29/2019 02:03:00 A M [facility] N924 Excessive bleeding in the premenopausal period Excessive bleeding in the premenopausal period Diagnosis 04/26/2019 04:04:00 PM [facility] R102 Pelvic and perineal pain Pelvic and perineal pain Diag nosis 04/26/2019 04:04:00 PM [facility] Surgeries/Procedures Procedure Description Date Indications Data Source(s) VAGINAL HYSTERECTOMY UTERUS 250 GM/< 02/13/2020 12:00: 00 AM EDT [facility] ([employer]) BLOOD COUNT COMPLETE AUTO&AUTO DIFRNTL WBC COUNT CBC AND DIFFER ENTIAL Routine 01/14/2020 3:53 AM EDT 01/14/2020 03:53:00 AM [facility] BASIC METABOLIC PANEL CALCIUM TOTAL BASIC METABOLIC PANEL Routi ne 01/14/2020 3:53 AM EDT 01/14/2020 03:53:00 AM EDT [facility] EKG 12-LEAD - CMAXX REPORT EKG 12-LEAD - CMAXX REPORT 01/13/2020 12:17 AM EDT 01/13/2020 12:17:52 AM EDT [facility] EKG 12-LEAD - CMAXX REPORT EKG 12-LEAD - CMAXX REPORT 01/13/2020 12:17 AM EDT 01/13/2020 12:17:52 AM EDT [facility] EKG 12-LEAD EKG 12-LEAD Routine 01/13/2020 12:17 AM EDT 01/13/2020 12:17:52 AM [facility] BLOOD COUNT COMPLETE AUTO&AUTO DIFRNTL WBC COUNT CBC AND DIFFER ENTIAL Routine 01/12/2020 4:59 AM EDT 01/12/2020 04:59:00 AM [facility] BASIC METABOLIC PANEL CALCIUM TOTAL BASIC METABOLIC PANEL Routi ne 01/12/2020 4:59 AM EDT 01/12/2020 04:59:00 AM EDT [facility] BASIC METABOLIC PANEL CALCIUM TOTAL BASIC METABOLIC PANEL Routi ne 01/11/2020 3:50 PM EDT 01/11/2020 03:50:00 PM EDT [facility] BLOOD GASES ANY COMBINATION PH PCO2 PO2 CO2 HCO3 BLOOD GAS, ART ERIAL Routine 01/11/2020 1:22 PM EDT 01/11/2020 01:22:[address] [facility] [address] HEAD/BRAIN W/O CONTRAST MATERIAL CT HEAD WITHOUT CONTRAST 70 450 STAT 01/11/2020 9:52 AM EDT 01/11/2020 09:52:10 AM [facility] COVID-19 PCR COVID-19 PCR Routine 01/11/2020 9:22 AM EDT 01/11/2020 09:22:00 AM [facility] BASIC METABOLIC PANEL CALCIUM IONIZED POCT ISTAT CHEM8 Routine 01/11/2020 9:19 AM EDT 01/11/2020 09:19:00 AM EDT [facility] GONADOTROPIN CHORIONIC QUANTITATIVE POCT ISTAT BHCG Routine 01/11/2020 9:13 AM EDT 01/11/2020 09:13:00 AM EDT [facility] BLOOD GASES ANY COMBINATION PH PCO2 PO2 CO2 HCO3 POCT ISTAT VBG /LAC Routine 01/11/2020 9:10 AM EDT 01/11/2020 09:10:00 AM [facility] LAMOTRIGINE LAMOTRIGINE Routine 01/11/2020 9:01 AM EDT 01/11/2020 09:01:00 AM [facility] LEVETIRACETAM LEVEL LEVETIRACETAM LEVEL Routine 01/11/2020 9:01 AM EDT 01/11/2020 09:01:00 AM [facility] URNLS DIP STICK/TABLET REAGENT AUTO MICROSCOPY URINALYSIS W ITH MICROSCOPIC STAT 01/11/2020 8:57 AM EDT 01/11/2020 08:57:00 AM [facility] BLOOD COUNT COMPLETE AUTO&AUTO DIFRNTL WBC COUNT CBC AND DIFFER ENTIAL STAT 01/11/2020 8:57 AM EDT 01/11/2020 08:57:00 AM EDT [facility] HEPATIC FUNCTION PANEL HEPATIC FUNCTION PANEL A STAT 0 8:57 AM EDT 01/11/2020 08:57:00 AM EDT [facility] BASIC METABOLIC PANEL CALCIUM TOTAL BASIC METABOLIC PANEL STAT 01/11/2020 8:57 AM EDT 01/11/2020 08:57:00 AM EDT [facility] EKG 12-LEAD - CMAXX REPORT EKG 12-LEAD - CMAXX REPORT 01/11/2020 8:56 AM EDT 01/11/2020 08:56:40 AM EDT [facility] EKG 12-LEAD - CMAXX REPORT EKG 12-LEAD - CMAXX REPORT 01/11/2020 8:56 AM EDT 01/11/2020 08:56:40 AM EDT [facility] EKG 12-LEAD EKG 12-LEAD STAT 01/11/2020 8:56 AM EDT 01/11/2020 08:56:40 AM EDT [facility] EKG 12-LEAD - CMAXX REPORT EKG 12-LEAD - CMAXX REPORT 01/11/2020 8:56 AM EDT 01/11/2020 08:56:00 AM EDT [facility] XR CHEST FRONTAL ONLY 22010 XR CHEST FRONTAL ONLY 73498 STAT 01/11/2020 8:45 AM EDT 01/11/2020 08:45:00 AM EDT [facility] BLOOD COUNT COMPLETE AUTOMATED CBC AND DIFFERENTIAL STAT 01/06/2020 9:20 AM EDT Hodgkin lymphoma, unspecified Hodgkin lymphoma type, unspecified body region 01/06/2020 09:20:00 AM EDT Hodgkin lymphoma, unspecified Hodgkin ly mphoma type, unspecified body region [facility] Hodgkin lymphoma, unspecified Hodgkin ly mphoma type, unspecified body region LACTATE DEHYDROGENASE LDH LACTATE DEHYDROGENASE STAT 01/05 9:20 AM EDT Hodgkin lymphoma, unspecified Hodgkin lymphoma type, unspecified body region 01/06/2020 09:20:00 AM EDT Hodgkin lymphoma, unspecified Hodgkin ly mphoma type, unspecified body region [facility] Hodgkin lymphoma, unspecified Hodgkin ly mphoma type, unspecified body region COMPREHENSIVE METABOLIC PANEL COMPREHENSIVE METABOLIC PANEL [place] 01/06/2020 9:20 AM EDT Hodgkin lymphoma, unspecified Hodgkin lymphoma type, unspecified body region 01/06/2020 09:20:00 AM EDT Hodgkin lymphoma, unspecified Hodgkin ly mphoma type, unspecified body region [facility] Hodgkin lymphoma, unspecified Hodgkin ly mphoma type, unspecified body region TRANS CARE MGMT 7 DAY DISCH 08/02/2019 12:00:00 AM EDT eCW1 ([facility]) Transitional Care NO CHARGE Visit 07/29/2019 12:00:00 AM EDT eCW1 ([facility]) Laparoscopy W/Removal Of Adnexal Struc Oophorectomy/Salp 06/13/2019 12:00:00 AM EST [facility] ([employer]) BLOOD COUNT COMPLETE AUTO&AUTO DIFRNTL WBC COUNT CBC AND DIFFER ENTIAL STAT 04/22/2019 2:00 PM EST Hodgkin lymphoma, unspecified Hodgkin lymphoma type, unspecified body region 04/22/2019 07:00:00 PM EST Hodgkin lymphoma, unspecified Hodgkin ly mphoma type, unspecified body region [facility] Hodgkin lymphoma, unspecified Hodgkin ly mphoma type, unspecified body region LACTATE DEHYDROGENASE LDH LACTATE DEHYDROGENASE STAT 04/22 2:00 PM EST Hodgkin lymphoma, unspecified Hodgkin lymphoma type, unspecified body region 04/22/2019 07:00:00 PM EST Hodgkin lymphoma, unspecified Hodgkin ly mphoma type, unspecified body region [facility] Hodgkin lymphoma, unspecified Hodgkin ly mphoma type, unspecified body region COMPREHENSIVE METABOLIC PANEL COMPREHENSIVE METABOLIC PANEL STA T 04/22/2019 2:00 PM EST Hodgkin lymphoma, unspecified Hodgkin lymphoma type, unspecified body region 04/22/2019 07:00:00 PM EST Hodgkin lymphoma, unspecified Hodgkin ly mphoma type, unspecified body region [facility] Hodgkin lymphoma, unspecified Hodgkin ly mphoma type, unspecified body region Irrigation Of Bladder 04/08/2019 12:00:00 AM EST [facility] ([employer]) Irrigation Of Bladder 03/28/2019 12:00:00 AM EST [facility] ([employer]) CYSTOURETHROSCOPY 02/28/2019 12:00:00 AM EST [facility] ([employer]) Results ID Date Data Source [id number] 03/30/2020 01:33:45 AM EST [facility] Name Value Range Interpretation Code Description Data Corrie rce(s) Supporting Document(s) Progress Note [facility] JQRUYl8vFvHEPzRz94/VQZtdBQNvk7PsTGdnJWf8EMnsPZMcC1KeZIQ9mH3yAIQ9GOsBAzIwGtDdUaN4 lbm CrGblKWkMcJFBdAqvVCiRpBNsoDbiqhLAqNP6GiBC2VACpP40zZGYgDLRsV1JbALNyDYg+Pw7ZHAPsgO TkZE9LAffL3O3rr9CVBl6+Vfc/IXPW4dXOJLi/WtvNQKWqTIPKfpIZmfsjJYzgA8G1fxRz/grIzvDC8E so0ziZUUdHHiCwaBz5z2/TM1Kq+N30hWxDoyDgnC+H w5rme54n8V//ouav+d7Da/N/spfIDzwnceLiB/k/fffLHzzrqPUdR+EMRYjbb6ncjgfYJ4YfOa7dY9gv q24v7hunGgg+tnd48AhB+8cHKklcz/M/GN4zBw4T7f476xml2nVeXMtQ0gLDDvIngeUZLQrXBcee6V1e Kl7ppexYLk0QobucAt4G/dgL2V+v2ULgWf8qDZu0YN u9YfGm7XBGXDdxDE7u1DRZ0zub4PvRu8XWBV558Cs1w0ZhtE/at4Uw1SRhJbwHr6krr/uTaphqjS3T1g zvKBePbi3OXhsCRrrwLqgKSTiGysbbgshVa+wULP515BcOJehJdFxTJ/liXbDVUB9zR37gIia9UvEZqK OoYm3gSeRPHIt6KVz29q737yZpF1AJ8VA3mkH7CjmM 4uAe2hz/C1J6RqY3TV2wEfR9xbquT+32W2zGijvKA0xA1v1I2ozd9jSfr2CgweDC1imGx27Ec0bzI8kw lld2mrFmBUHEF9as8RkkOSjRvczOn3OOYXYQ6UK+zlB6o3dZn7qYNZ75gLnhxXCBtl0wPyUo0PKNf47q 90nBEHivs4BjpmAccLbS5mkb0gEPqgy+5kEx9p3fGa SWVLFZUdmzlADOy84oDT2GfMUZZ4zkQ7lp6CJncyYbF1qAVZq7vClsXxcbGrP5XqQ3YWQpo0YwJOAFbI 6RUZ+mqOL35ZG+UD4ZuLMDimvZu9CDfhnNlA4Gip7uCSVSNVF/jQQyvp+idUuQ3azJv1livb76gz/Sofie [file] 4WsQUZoUJhLrEkiw+oGqBw3VIHeLqaj7fySCe23lM/3/Track Service Person+xcs+J7p2lIoz+GBxkjEeI2r2nMfKcWOb3 [file] PrCWSP/MAP/T+auger operator+5//UrSlWAP9O15mNjfIfXUj/rBjHMma7VivI5g/L5A06BLGfGoQ4Xd+oblep3ich [file] ICAgICAgICAgICAgICAgICAgICAgICAgICAgICAgIC AgICAgICAgICAgICAgICAgICAgICAgICAgICAgICAgICAgICAgICAgICAgICAgICAgICAgICAgICAgIC JsIPSsHT8WFEIcZEHtFLGpWATdXCKhSNCqZEDwHREyZVDdLRNaUJFaYJFiLHPmTSZwHBWeJVNrJUQlHH AgICAgICAgICAgICAgICAgICAgICAgICAgICAgICAg VFEsDUBeIZOoVSDnQOOfBV9QFTEsCZIyPBOjYTVyGSYcOZChAGAfDFNnPILnTLAxXMKjBBKbLACeLRCo VTGqUMImZNExBFGpVUBfMAPuZHEzSNYhOKCoRRBnBPNxXQAmDSYaZFXsJYSmHIQdGBHePDSjGXFyVZ5N ICAgICAgICAgICAgICAgICAgICAgICAgICAgICAgIC AgICAgICAgICAgICAgICAgICAgICAgICAgICAgICAgICAgICAgICAgICAgICAgICAgICAgICAgICAgIC DuKKElVEDpYV8YXAAtIPBaQVUmKEPtLVUwNZKhXWDuQFPgJMLrYAVyIOLvBYQyDLDcUAVbCFBhBQIqLY AgICAgICAgICAgICAgICAgICAgICAgICAgICAgICAg PHLmUXNtMNVjBARuOKUhDFLsNC6ZMGUyXSPfKSAwABVyVJRzBSCiPCTpSPCwYFYwKSUrQSEzXHMtEEIn ICAgICAgICAgICAgICAgICAgICAgICAgICAgICAgICAgICAgICAgICAgICAgICAgICAgICAgICAgICAg HQ1SVZXjBDAnDUQgDMVeLVZuIDMkGTKeWZTqJCQrCS AgICAgICAgICAgICAgICAgICAgICAgICAgICAgICAgICAgICAgICAgICAgICAgICAgICAgICAgICAgIC HpMGSyWFReKCBgAN8YVBIrKCBnNUVuDEBpMSOvGQWlASVhDVSyCGKiZAGbBMNtZVQrIVWeKWMaUZJhVJ AgICAgICAgICAgICAgICAgICAgICAgICAgICAgICAg DOTdFLBzLODoNNRxODLvGMTcFPNxAC2PYKVnBVAaNEZiRKBxSSGvVPYgWNZfKAXtWUIeCEImYRJcEHBe ICAgICAgICAgICAgICAgICAgICAgICAgICAgICAgICAgICAgICAgICAgICAgICAgICAgICAgICAgICAg ERDrRL8AOLDzNANxVRVzRLYpXKSqNJVtYIEvUVSeDK AgICAgICAgICAgICAgICAgICAgICAgICAgICAgICAgICAgICAgICAgICAgICAgICAgICAgICAgICAgIC KvVCCzWSAnSKQgLTXwVN4FLF98eFVqs0E1XFNuNM3ende/Wg6LHCwsubNbkYMoJX8YFoBhWF6idx9KGh CcBL7hcc8TUOzTFpCtW9I1zWYvODOdIJCUBoRxD34c INrsFy78AEiiTBQgDlKyQVe4Uc2XUkMdO6rpWUWxDiX1GFJeKjW5FLWcHhN5FJAeExXwSCWpAVRnVHRd ALCIKVK6PURcHeAnObWnPBCoNCfcSHBQIYCiHKGtAgPuLrTiGMTgIW3ULTNaO668ieVjFJZGOq3+DQpl dtNdDrkCWzRwULFra8GzCMn1RW2DXKDpNbxes5BjPG XlHUFYUNooTU0FFGL9SSTmPUVlYl8DJRZbG625qoAqYU6FTg4NUgQlGF4dkk5ZSSXvFGGiKraIQtp6BN lxDB2FpOEhHFaXqi8jjlKkhwDTc9FluyBqxPCErMYlH5YmogtrHzcmhYhfNODgDIEjQFSuEm1lTIViKG I3KkN9OZPIXL2QRJIyTGXzuKPoMNZvOOCHXB4HVDvs HBI8RPLpdrEopUPnDAolTR9HCBKuidHjGWVnCHTREXc+Zf1LYA2nw0LfUNs9AoJtAG6ipd7DZIvBNgWr R6D6dNNqZ3S5DKbiVk6SGYWzHDQjDcsnAVFMREwvSY3AMH4fjfP9WN5TnLPwWPSzPOKwtLAqOOe2O92y aHNbMAmpXT1FYAX+Sadie+Xa8ZJZNsTOFsAAHeIjGfDJ DHLmLuC3VuE5ZIs5XiY4QgZE63iBgzidXrNTooEQ3SOI2uWOSvUBUMJH3OsETxeA1bjxB4DBJgFDXFAj BtE18flHIaIVSjUTZ7HCLfTi5TTBVzY6FhrvOtoMaibyYpMIHoPXZZEQ3ATZkndqSgtXAvqRbnEU82dO lzWL0VNa0WIoDyGN2zot4SfSOdPe7ZEFN5Uv6BMFEy TBLqTZShBZH7RZApHqAbGZzfVOUwEISiVII8UHUeEZSrYR6MMfGoPNTqPkRfZJRyBQFcDLOfeq0FLKCy LNJ2MFo7GJQiBBFiHLAkKDshNTEaEZZsIDQ4CCNhEDPnWV0DZnTiOASfACX6CVqpPPGfHQLnhw9RDQUc VOKfWOk3KQArADIyACRiWDdmDVSaIPJ8ZKiaMYSkAL QdZS2NVzGzPCHnXWfkXCneKYZnNHTkdj6VWMXeFMHrVTwvCACrEJJpHUFxACowORRyLLGvVVA7DSUtQN UaDT4UGiUyCDDaFQL3PFTwOEJxWUDcxt3FUGWmHVOiZOUjJRRdFPVxYCCsBXnlREIcOZC8VbTzGOLfDX QkMZ1VZuMjZJKpGPx6TYIvYPTmKXQltm1HPXLeECKy DTn4TiDbACQcCMLxEBeqGKNbTYDhCIreNXFmLYPxSO2SHkPzWUDhGqP1ZPvzCZBlOKYpff0MPTIbHRBg MlokBRLzWEBaMYOdXKerFHIpNSM2XJA3VDOtPEMfZQ1ZBtWtWHHiDwZ3KUIrOSKkKUQigw7DKDXmLIWz TOK8OBWyOXRpKSYiJSwmDULcKKSwDsl6LXHaPCGpVK 1LDfKuRZXcPhU1CuXyHJXxOOLgpz2JIOTxKRLoUZFlCRZfODUwFQLoSJnfJMGrGAN4ZYqgUJCaSQDzLQ 2TJxLrTIRiAaQkVZaoCUDdMLLgyw5MPRPcJTCnYTA7KXRiGWPlQEXeKTkwOQTfWLW1AVQkDMZnDJZfLZ 3TQcLjUSFmXqU3TnBgWZBcDDRvea4LFYBfNNMaLsrq RCKzYVOlOCYzVKaxACDbZXH0IhyyZLFuGDSxVR2LQyBdLKQqALg9EDWaTVPaPJMfwx0JPIQjUJX4KML0 EFBeUYLcUVVsHAgzNGDbABK4YSI9ZEIoDMUxHD3CUrHiLDGtOXv9MCUoYABeOLNwai1OFMXkBGU0FTJ2 EaIwHYWtWRKiEGryYIInZPN0WIZ6OQWaEJKpOL8JZv ZbCIIkRaQpUgBpNKHvAMEwwx9OHHDwSPT8VCVeBJOmIJIpOMLxBAafPPRnQBQkNDE6DJWtHVIrGF1ZAm BsOHIxYsZiPUWzRDJnQMNulv7EIQFqTMQ7IbI4ACYfXIAcQXWuOAc7peNspLGsDHt6CR0QC9NtzrPwMH FFXy8Ow686QGZuCIFxZn7KU2hpOn2iJFWwOMJKYc6U ELw4CfAcHWX8QzexEUhkBRWnMcr9MZk6HNbrBSNeCUB9RCm+NRomT5Q5VlvvO1KaNAYiEFUmROsnMzhx G8PwFLAfCHr8YU4zWTFZGy8+KHjgsRXfrOnyPMOASbXxYGPvMXioGXSSYx2E ID Date Data Source LAMOTRIGINE (LAMICTAL) 03/20/2020 12:00:00 AM EST eCW1 ([facility]) Name Value Range Interpretation Code Description Data Corrie rce(s) Supporting Document(s) 0.6 2.0-20.0 LAMOTRIGINE (LAMICTAL) eCW1 ([facility]) ID Date Data Source [id number] 03/20/2020 12:00:00 AM EST eCW1 ([facility]) Name Value Range Interpretation Code Description Data Corrie rce(s) Supporting Document(s) Hemoglobin A1c/Hemoglobin.total in Blood 5.3 HEMOGLOBIN A1c eCW1 ([facility]) ID Date Data Source [id number] 02/08/2020 09:00:00 AM EDT [facility] Name Value Range Interpretation Code Description Data Corrie rce(s) Supporting Document(s) SARS coronavirus 2 RNA [facility] This lab was ordered by [facility] and reported by [facility]. ID Date Data Source [id number] 01/31/2020 09:01:00 AM EDT [facility] [address] [place] [address] PHONE: [phone] FAX: [phone] Name .................. : TODDZAKI NERY Wisdom Acct Number.................. : [id number] ROOM. ................. : TR-07 Number ................... : [id number] Stay type ............. : E/R Discharge Date......... ... : 01/29/20 Admit Date ......... : 01/29/20 Admit Phys .................... : WEI BRISCOE Date of ....... : 1990 Family Phys ................... : SEMAJ VAUGHN Phone .................. : [phone] Age ................................ : 29 Film# .................. .:[id number] Sex ................................. : F Unsigned transcriptions are preliminary reports and do not represent a medical or legal document CT ABD & PELV W/O ORAL W/O IV [id number] COMPLETE:01/29/20 07:22 RLB [id number] Reason(s): periumbilical pain w vomiting CT SCAN OF THE ABDOMEN AND PELVIS WITHOUT CONTRAST: TECHNIQUE: CT scan of the abdomen and pelvis is performed without the use of intravenous or oral contrast. COMPARISON: 04/26/19 FINDINGS: Evaluation of the lung bases demonstrate mild bibasilar subsegmental atelectasis and/or pleuroparenchymal scarring. The liver and spleen are not enlarged. There are no adrenal masses. There are renal or ureteral calculi. The pancreas is not adequately evaluated without intravenous contrast. No calculi are noted in the gallbladder. There is no intra or retroperitoneal adenopathy by CT size criteria. Evaluation of the pelvis does not demonstrate free fluid. The urinary bladder is not opacified or fully distended, limiting evaluation. No discrete bladder mass is noted. Evaluation of the unopacified bowel does not demonstrate CT evidence of obstruction or focal inflammatory bowel disease. Incomplete distention limits evaluation, especially for wall thickness. Retained feces limits evaluation of the colon. An unremarkable appendix is visualized. Evaluation of the visualized skeleton does not demonstrate acute disease. IMPRESSION: No renal or ureteral calculi. Page 1 of 2 [facility] [address] [place] [address] PHONE: [phone] FAX: [phone] Name ............. ..... : SOCO Wisdom Acct Number.................. : [id number] ROOM. ................. : TR-07 Number ................... : [id number] Stay type ............. : E/R Discharge Date......... ... : 01/29/20 Admit Date ......... : 01/29/20 Admit Phys .................... : WEI BRISCOE Date of ....... : 1990 Family Phys ................... : SEMAJ VAUGHN Phone .................. : [phone] Age ................................ : 29 Film# .................. .:[id number] Sex ................................. : F Unsigned transcriptions are preliminary reports and do not represent a medical or legal document CT ABD & PELV W/O ORAL W/O IV [id number] COMPLETE:01/29/20 07:22 RLB [id number] Reason(s): periumbilical pain w vomiting While performing the above CT examination, radiation dose reduction was accomplished utilizing automated exposure control, adjusting of the mA and kV based on the patient's body size and/or the use of imperative reconstructive techniques. CT dose: 649 mGycm Electronically Reviewed and Signed By Madhu Costa MD , 01/31/20 09:01, AML Transcribe Initials: EPHRAIM , Transcribe Date: 01/29/20 23:45, Dictation Date: Copy for: 710 MED REC DISCHARGED Page 2 of 2 Name Value Range Interpretation Code Description Data Corrie rce(s) Supporting Document(s) ID Date Data Source [id number] 01/31/2020 09:00:00 AM EDT [facility] [address] [place] [address] PHONE: [phone] FAX: [phone] Name .................. : SOCO Wisdom Acct Number.................. : [id number] ROOM. ................. : TR[facility] Number ................... : [id number] Stay type ............. : E/R Discharge Date......... ... : 01/29/20 Admit Date ......... : 01/29/20 Admit Phys .................... : WEI BRISCOE Date of ....... : 1990 Family Phys ................... : SEMAJ VAUGHN Phone .................. : [phone] Age ................................ : 29 Film# .................. .:[id number] Sex ................................. : F Unsigned transcriptions are preliminary reports and do not represent a medical or legal document CHEST PORTABLE [id number] COMPLETE:01/29/20 06:31 RLB [id number] Reason(s): seizure PORTABLE CHEST X-RAY: COMPARISON: 09/22/11 FINDINGS: There is no evidence of acute consolidation or congestive heart failure. The heart is not enlarged. There is no hilar adenopathy. IMPRESSION: No evidence of significant acute pulmonary disease. Electronically Reviewed and Signed By Madhu Costa MD , 01/31/20 09:00, AML Transcribe Initials: DZ , Transcribe Date: 01/29/20 23:31, Dictation Date: Copy for: 710 MED REC DISCHARGED Page 1 of 1 Name Value Range Interpretation Code Description Data Corrie rce(s) Supporting Document(s) ID Date Data Source [id number] 01/31/2020 09:00:[place] [address] PHONE: [phone] FAX: [phone] Name .................. : SOCO Wisdom Acct Number.................. : [id number] ROOM. ................. : TR-07 Number ................... : [id number] Stay type ............. : E/R Discharge Date......... ... : 01/29/20 Admit Date ......... : 01/29/20 Admit Phys .................... : WEI BRISCOE Date of ....... : 1990 Family Phys ................... : SEMAJ VAUGHN Phone .................. : [phone] Age ................................ : 29 Film# .................. .:[id number] Sex ................................. : F Unsigned transcriptions are preliminary reports and do not represent a medical or legal document CT HEAD W/O CONTRAST [id number] COMPLETE:01/29/20 07:41 [id number] Reason(s): Headache CT SCAN OF THE HEAD WITHOUT CONTRAST: COMPARISON: 10/10/12 FINDINGS: There is no evidence of acute intracranial pathology. There is no positive mass effect or shift of the midline structures. The lateral, third and fourth ventricles are unremarkable in size and position. There are no acute extra-axial fluid collections. Evaluation of the visualized paranasal sinuses and mastoid air cells is essentially unremarkable, although there is a paucity of mastoid air cells. IMPRESSION: No acute intracranial pathology. While performing the above CT examination, radiation dose reduction was accomplished utilizing automated exposure control, adjusting of the mA and kV based on the patient's body size and/or the use of imperative reconstructive techniques. CT dose: 833 mGycm Electronically Reviewed and Signed By Madhu Costa MD , 01/31/20 09:00, [facility] Transcribe Initials: EPHRAIM , Transcribe Date: 01/29/20 16:29, Dictation Date: Page 1 of 2 [place] [address] PHONE: [phone] FAX: [phone] Name .................. : SOCO GABRIEL Artis Acct Number.................. : [id number] ROOM. ................. : TR-07 MR Number ................... : [id number] Stay type ............. : E/R Discharge Date......... ... : 01/29/20 Admit Date ......... : 01/29/20 Admit Phys .................... : WEI BRISCOE Date of ....... : 1990 Family Phys ................... : SEMAJ VAUGHN Phone .................. : [phone] Age ................................ : 29 Film# .................. .:[id number] Sex ................................. : F Unsigned transcriptions are preliminary reports and do not represent a medical or legal document CT HEAD W/O CONTRAST [id number] COMPLETE:01/29/20 07:41 18730 Reason(s): Headache Copy for: 710 MED REC DISCHARGED Page 2 of 2 Name Value Range Interpretation Code Description Data Corrie rce(s) Supporting Document(s) ID Date Data Source [id number] 01/29/2020 06:03:00 AM EDT [facility] 1 OrderSheet [facility] Emergency Department [address] [place] [address] Phone #: ext- [phone] 01/29/2020 06:00 Patient: NERY WAN Sex: F : 1990 Age: 29yWEIGHT:68.0 kg (S) HEIGHT:64 inches (S) BMI:25.8ALLERGIES: Fentanyl and Related, IV Contrast, Ketamine, LatexCHIEF COMPLAINT: seizure, x1, seizure, [id number]: Seizure, Abdominal painLAB ORDERSOrder Description Priority Entered Acknowledged [facility] 06:12 01/29/2020 06:31 Wei Niño Riccardo Robert R.N. M.D.;CMP STAT 06:12 01/29/2020 06:31 Wei Niño Riccardo Robert R.N. M.D.;PT/PTT STAT 06:12 01/29/2020 06:31 Wei Niño Riccardo Robert R.N. M.D.;Troponin-T STAT 06:12 01/29/2020 06:31 Wei Niño Riccardo Robert R.N. M.D.;Magnesium STAT 06:12 01/29/2020 06:31 Wei Niño Riccardo Robert R.N. M.D.;HCG Serum Qual STAT 06:12 01/29/2020 06:31 Wei Niño Riccardo Robert R.N. M.D.;Urinalysis (Clean STAT 08:23 01/29/2020 08:24 Zachary,Catch) Vamsi Garcia R.N. Physician;Urine Drug Screen STAT 08:23 01/29/2020 08:24 Vamsi Sharma R.N. Physician;DIAGNOSTIC STUDY ORDERSOrder Description Priority Entered Acknowledged InitialedChest Portable 1 STAT 06:12 01/29/2020 06:31 Carroll Niño Riccardo Robert R.N.(Oxygen?(No)) Ying; Reason for Study: seizure 2 OrderSheet [facility] Emergency Department [address] [place] [address] Phone #: ext- [phone] 01/29/2020 06:00 Patient: NERY WAN Sex: F : 1990 Age: 29yCT Abd PEL W/ IV STAT 06:41 01/29/2020 Ack'd: 06:45 Glenys Sullivan R.N.Contrast Only Manuelito Carvajal Cancelled: Duplicate Order 06:54 Wei(Oxygen?(No)) Ying; Devan del real M.D.(IV?(Yes)) Reason for Study: periumbilical pain w vomitingCT ABD PEL W/O STAT 06:54 01/29/2020 07:38 Zachary,Oral W/O IV TurrinManuelito R.N.Contrast M.D.;(Oxygen?(No))(IV?(Yes)) Reason for Study: periumbilical pain w vomitingCT Head W/O Cont STAT 07:41 01/29/2020 07:42 Marley(Oxygen?(No)) Vamsi Elmore RN Physician; NOTES: Seizures Reason for Study: HeadacheMEDICATION/IV/DRIP/FLUID ORDERSOrder Description Priority Entered Acknowledged InitialedAtivan IVP 2 mg 06:13 01/29/2020 06:39 Nate(HIGH ALERT Turrin, Manuelitodo Veronica R.N.MEDICATION) M.DKaylah;NS IV 1000 mL 06:13 01/29/2020 06:50 [place],Bolus: : Bolus 1000 Waylonrin, Manuelito Mcfarlane R.N.mL (X1) M.D.;Phenergan IV 25mg 06:13 01/29/2020 06:52 [place],in 50mL NS, give Manuelito Carvajal R.N.wide open: 25 mg M.D.;(NOW x1, HIGHALERTMEDICATION)Morphine IVP 4 mg 08:16 01/29/2020 08:31 Zachary,(NOW, HIGH ALERT Vamsi Garcia R.N.MEDICATION) Physician;Zofran 4 mg IVP X 1 08:16 01/29/2020 08:31 Zachary,dose: 4 mg (NOW Vamsi Lomasica R.N.x1) Physician;Keppra 1000 mg 10:36 01/29/2020 10:52 PeterIVPB X1 dose: 1000 Vamsi Childers RNmg with Dextrose Physician;Intravenous 100 mL(D5W) 3 OrderSheet [facility] Emergency Department [address] [place] [address] Phone #: ext- [phone] 01/29/2020 06:00 Patient: NERY WAN Sex: F : 1990 Age: 29yGENERAL ORDERSOrder Description Priority Entered Acknowledged InitialedBlood Pressure 06:12 01/29/2020 06:30 [place],Monitor Manuelito Carvajal R.N., M.D.;Rehab Physician 06:12 01/29/2020 06:30 [place](continuous) Manuelito Carvajal R.N., M.D.;EKG 06:12 01/29/2020 06:30 Wei Niño Riccardo Robert R.N. M.D.;NPO 06:12 01/29/2020 06:30 Wei Niño Riccardo Robert R.N. M.D.;Obtain Old EKG 06:12 01/29/2020 06:45 Wei Sullivan Riccardo Melissa R.N. M.D.;Obtain Old Records 06:12 01/29/2020 06:45 Wei Sullivan Riccardo Melissa R.N. M.D.;Oxygen titrate to 06:12 01/29/2020 06:30 [place],92% Manuelito Carvajal R.N., M.D.;Pulse oximeter 06:12 01/29/2020 06:30 [place](Continuous) Manuelito Carvajal R.N., M.D.;Saline Lock 06:12 01/29/2020 06:30 Wei Niño Riccardo Robert R.N. M.D.;Vitals 06:12 01/29/2020 06:31 Wei Niño Riccardo Robert R.N. M.D.;[Electronically signed by Wesley Childers RN (11:59 01/29/2020)][Electronically signed by Vamsi Novoa Physician (14:30 01/29/2020)][Electronically signed by Manuelito Carvajal M.D. (07:38 01/30/2020)][Electronically locked by Wesley Childers RN (11:59 01/29/2020)] Name Value Range Interpretation Code Description Data Corrie rce(s) Supporting Document(s) ID Date Data Source [id number] 01/29/2020 06:03:00 AM EDT [facility] 1 Medication Reconciliation Report [facility] Emergency Department [address] [place] [address] Phone #: ext- [phone] 01/29/2020 06:00 Patient: NERY WAN Sex: F : 1990 Age: 29yWeight: 68.0 kgHeight/Length: 64 in.BMI: 25.8ALLERGIES: Fentanyl and Related, IV Contrast, Ketamine, LatexThe patient's Home Medications are listed below:THE FOLLOWING MEDICATIONS NEED TO BE RECONCILED: Albuterol Sulfate HFA Inhalation 2 puffs, prn Amitriptyline HCl Oral (25 mg) 1 tablet, daily Bisacodyl Oral 10 mg, prn Gabapentin Oral (100 mg) 1 capsule, 2x a day Keppra Oral (750 mg) 1 tablet, 2x a day LaMICtal Oral (200 mg) 1 tablet, 2x a day Levothyroxine Sodium Oral (150 mcg) 1 tablet, daily metroNIDAZOLE Oral (500 mg) 1 tablet, daily, for 7 days, d/c 05/01/2019 MiraLax Oral 1 packet, daily Nexplanon SubcutaneousThe source(s) of the original Home Medication info rmation:Not obtained.The following Medications were given to the patient in the Emergency Department:Ativan [IVP] IVP 2 mg, administered: 01/29/2020 6:14:00 AMNS [IV] IV Fluids bolus 1000 mL wide open, administered: 01/29/2020 6:50:00 AM 2 Medication Reconciliation Report [facility] Emergency Department [address] [place] [address] Phone #: ext- [phone] 01/29/2020 06:00 Patient: NERY WAN Sex: F : 1990 Age: 29yPhenergan [IV Drip] Drip IV bolus 0, then 25 mg 25 mg/min, administered: 01/29/2020 6:51:00 AMZofran [IVP] IVP 4 mg, administered: 01/29/2020 8:31:00 AMMorphine [IVP] IVP 4 mg, administered: 01/29/2020 8:31:00 AMKeppra [IVPB] IVPB bolus 0, then 1000 mg 400 mL/hr, administered: 01/29/2020 10:52:00 AMThe following Medications were prescribed to the patient:None. Name Value Range Interpretation Code Description Data Corrie rce(s) Supporting Document(s) ID Date Data Source [id number] 01/29/2020 06:03:00 AM EDT [facility] 1 Medication Administration Record [facility] Emergency Department [address] [place] [address] Phone #: ext- [phone] 01/29/2020 06:00 Patient: NERY WAN Sex: F : 1990 Age: 29yWeight: 68.0 kgHeight/Length: 64 inBMI: 25.8ALLERGIES: Fentanyl and Related, Ketamine, Latex, IV Contrast Date/Time Medication Administered Medication OrderedGiven ATIVAN [IVP] (LORAZEPAM) Ativan IVP 2 mg (HIGH ALERT06:14 01/29/2020 Dose: 2 mg IVP MEDICATION)Glenys Sullivan RKaylahNKaylah Site: #1Start NS [IV] NS IV 1000 mL Bolus: : Bolus 310031:50 01/29/2020 Dose: IV Fluids mL (X1)Denys Niño R.N. Bolus: 1000 mL wide open---- Dispensed: 1000 mL bagStop Site: #1 right EJ07:38 01/29/2020Radha Sharma RKaylahNKaylahStart PHENERGAN [IV DRIP] Phenergan IV 25mg in 50mL NS,06:51 01/29/2020 (PROMETHAZINE HCL) give wide open: 25 mg (NOW x1,Denys Niño R.N. Dose: 25 mg Drip IV HIGH ALERT MEDICATION)---- Rate: 25 mg/min over 1 minute(s)Stop Dispensed: 50 mL bag07:32 01/29/2020 Site: #1 right Chelly Childers RNGiven MORPHINE [IVP] Morphine IVP 4 mg (NOW, HIGH08:31 01/29/2020 Dose: 4 mg IVP ALERT MEDICATION)Radha Sharma R.N. Site: #1 right EJGiven ZOFRAN [IVP] (ONDANSETRON HCL) Zofran 4 mg IVP X 1 dose: 4 mg08:31 01/29/2020 Dose: 4 mg IVP (NOW x1)Radha Sharma R.N. Site: #1 right EJStart KEPPRA [IVPB] (LEVETIRACETAM) Keppra 1000 mg IVPB X1 dose:10:52 01/29/2020 Dose: 1000 mg IVPB 1000 mg with Carola Childers RN Rate: 400 mL/hr over 15 minute(s) Intravenous 100 mL (D5W)---- Dispensed: 100 mL bagStop Site: #1 right EJ11:11 01/29/2020Wesley Childers RN Name Value Range Interpretation Code Description Data Corrie rce(s) Supporting Document(s) ID Date Data Source [id number] 01/29/2020 06:03:00 AM EDT [facility] 1 General Instructions [facility] Emergency Department [address] [place] [address] Phone #: ext- [phone] 01/29/2020 06:00 Patient: NERY WAN Sex: F : 1990 Age: 29y(Electronically signed by Manuelito Carvajal M.D. 01/30/2020 07:38)Generalized abdominal pain of undetermined cause.Generalized seizure of unknown cause. History of poorly controlled and idiopathic etiology epilepsy. Nofebrile seizure or status epilepticus.(Electronically signed by Vamsi Novoa, Physician 01/29/2020 14:30) Name Value Range Interpretation Code Description Data Corrie rce(s) Supporting Document(s) ID Date Data Source [id number] 01/29/2020 06:03:00 AM EDT [facility] 1 Clinical Report - Nurses [facility] Emergency Department [address] [place] [address] Phone #: ext- [phone] 01/29/2020 06:00 Patient: NERY WAN Sex: F : 1990 Age: 29yTRIAGEArrived by private vehicle. ( Per patient's fiance, patient was released from [facility] for seizures. Hx ofseizures. Per report, patient was home for an hour and began complaining of abdominal pain andrequested to go to the hospital. While in the car, patient had a seizure and became unresponsive. Patientassisted to room 7. Dr. Carvajal to bedside.).Triage time: 06:07 01/29/2020. 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 Sepsis Screen negative. Nosuspected or confirmed signs of infection present.LILY COMA SCORE: 7- eyes open to pressure (2); best verbal response- sounds (2); best motorresponse- abnormal flexion (3). --06:33 01/29/20 Glenys Sullivna R.N.06:15 01/29/20. BP: 136/93. MAP: 107. HR: 120. RR: 12. O2 saturation: 100%. Temp: 98.6 F. Pain levelnow 10/24. --06:33 01/29/20 Glenys Sullivan R.N.06:30 01/29/20. BP: 136/93. HR: 120. RR: 12. O2 saturation: 100%. Temp: 98.6 F. Pain level now 10/24.--06:33 01/29/20 Glenys Sullivan R.N. Correction. --06:50 01/29/20 Glenys Sullivan R.N.Triage time: 06:15 01/29/2020.06:15 01/29/20. --06:52 01/29/20 Glenys Sullivan R.N.Weight: 68 kg stated. Height/Length: 64 inches Per Patient. BMI: 25.8. --06:20 01/29/20 Glenys Sullivan R.N.MedicationsAlbuterol Sulfate HFA Inhalation 2 puffs, as needed. Amitriptyline HCl Oral (Tablet 25 mg) 1 tablet, daily. Bisacodyl Oral 10 mg, as needed. Gabapentin Oral (Capsule 100 mg) 1 capsule, 2x a day. Keppra Oral (Tablet 750 mg) 1 tablet, 2x a day. LaMICtal Oral (Tablet 200 mg) 1 tablet, 2x a day. Levothyroxine Sodium Oral (Tablet 150 mcg) 1 tablet, daily. 2 Clinical Report - Nurses [facility] Emergency Department [address] [place] [address] Phone #: ext- [phone] 01/29/2020 06:00 Patient: NERY WAN Sex: F : 1990 Age: 29y metroNIDAZOLE Oral (Tablet 500 mg) 1 tablet, daily (for 7 days, d/c 05/01/2019). MiraLax Oral 1 packet, daily. Nexplanon Subcutaneous. --06:15 01/29/20 Manuelito Carvajal M.D. Allergies Fentanyl and Related.(hives) (seizures) Ketamine.(hives, SOB) Latex. --06:15 01/29/20 Manuelito Carvajal M.D. IV Contrast. --06:54 01/29/20 Denys Niño R.N. History SOCIAL HX: Never smoker. No alcohol use or drug use. No recent travel. No known contact with a sick individual. She was offered HIV testing but declined. Patient education was provided. She has not traveled outside the [place] Infectious disease exposure: The patient was not exposed to Coronavirus. SELF HARM ASSESSMENT: Self harm assessment was performed. The patient answered "no" to the question(s) "Have you recently felt down, depressed, or hopeless?" and "Do you have thoughts of harming or killing yourself?". ABUSE ASSESSMENT: Abuse assessment. Abuse denied. No suspicion of abuse. No report of abuse. FALL RISK ASSESSMENT: Fall risk assessment completed. Risk factors identified include weakness and patient history of fall; seizures. --06:33 01/29/20 Glenys Sullivan R.N. Interventions Identification band on patient. To treatment room. --06:33 01/29/20 Glenys Sullivan R.N.PHYSICAL ASSESSMENTGENERAL / NEURO / PSYCH: Appears to be having seizure activity. The patient is disoriented to person,place and situation. ( P atient more responsive after ativan given.).RESPIRATORY: No respiratory distress. Respirations not labored.GI / : Abdomen soft and nontender.SKIN: Skin intact. Skin is warm and dry. Normal skin turgor. --06:37 01/29/20 Glenys Sullivan R.N.NURSING PROGRESS NOTES06:19 01/29/2020 Site #1 started via IV in the right external jugular with an 20g angiocath, with aseptictechnique and good blood return; four attempts. Blood drawn: rainbow set. Saline lock flushed with 10 mLsaline (placed by BRI Bai after multiple attempts in arms/hands). --06:34 01/29/20 Glenys Sullivan R.N. monitor worker, NIBP monitor and pulse oximeter placed on patient. EKG time: (06:16 01/29/2020). EKG was performed by a nurse and shown to the ED physician. Patient gowned. Reassurance given. Patient identifiers checked. Call light placed in reach. Bed placed in lowest position. Brakes of bed on. --06:35 01/29/20 Glenys Sullivan R.N. 3 Clinical Report - Nurses [facility] Emergency Department [address] [place] [address] Phone #: ext- [phone] 01/29/2020 06:00 Patient: NERY WAN Sex: F : 1990 Age: 29y06:00 01/29/20. Finger stick glucose: 93. --06:38 01/29/20 Glenys Sullivan R.N.06:14 01/29/2020 Ativan (LORazepam) IVP 2 mg given via site #1. Allergies verified and confirmed 5rights. IV patency established. IV site checked: no pain, redness, or swelling. IV flushed thoroughly pre-and post-medication administration. IVP given by RN. Information reviewed with patient including reasonfor taking this medication and sedative warning. Verbalizes understanding. --06:39 01/29/20 Glenys Sullivan R.N.06:50 01/29/2020 Started bag #1 1000 mL IV Fluids NS; bolus of 1000 mL wide open via site #1 via IVpump. Allergies verified and confirmed 5 rights. IV patency established. IV site checked: no pain, redness,or swelling. IV flushed thoroughly pre- and post-medication administration. Information reviewed withpatient including reason for taking this medication, signs of allergic reaction and precautions. Verbalizesunderstanding. --06:50 01/29/20 Denys Niño R.N.06:51 01/29/2020 Started 25 mg of Phenergan (Promethazine HCl) Drip IV in bag #1 50 mL; at 25 mg/minover 1 minute(s) via site #1. via IV pump. Allergies verified and confirmed 5 rights. IV patency established.IV site checked: no pain, redness, or swelling. IV flushed thoroughly pre- and post- medicationadministration. Information reviewed with patient including reason for taking this medication, signs ofallergic reaction, precautions and sedative warnings. Verbalizes understanding. --06:52 01/29/20 Denys Niño R.N.07:32 01/29/2020 Phenergan Drip IV via IV site #1 Discontinued: infused. Total amount infused: 50 mL. IVpatency established. IV site checked: no pain, redness, or swelling. IV flushed thoroughly. --10: Wesley Childers RN07:38 01/29/2020 IV Fluids NS via IV site #1 Discontinued: infused. Total amount infused: 1000 mL. IVpatency established. IV site checked: no pain, redness, or swelling. IV flushed thoroughly. --07: Radha Sharma R.N.08:31 01/29/2020 Zofran (Ondansetron HCl) IVP 4 mg given over 2 minute(s) via site #1. Allergies verifiedand confirmed 5 rights. IV patency established. IV site checked: no pain, redness, or swelling. IV flushedthoroughly pre- and post-medication administration. IVP given by RN. Information reviewed with patient.Verbalizes understanding. --08:31 01/29/20 Radha Sharma R.N.08:31 01/29/2020 Morphine IVP 4 mg given over 2 minute(s) via site #1. Allergies verified and confirmed 5rights. IV patency established. IV site checked: no pain, redness, or swelling. IV flushed thoroughly pre-and post-medication administration. IVP given by RN. Information reviewed with patient. Verbalizesunderstanding. --08:31 01/29/20 Radha Sharma R.N.09:17 01/29/20. BP: 132/92. HR: 105. RR: 16. O2 saturation: 100%. Temp: 98.6 F. Pain level now 8/10.--09:19 01/29/20 Radha Sharma R.N.R eassessment after medication administered. She is calm and resting quietly. Overall patient status is 4 Clinical Report - Nurses [facility] Emergency Department [address] [place] [address] Phone #: ext- [phone] 01/29/2020 06:00 Patient: NERY WAN Sex: F : 1990 Age: 29y the same- she states feels the same. --09:19 01/29/20 Radha Sharma R.N. 10:24 01/29/20. BP: 135/94. MAP: 107. HR: 112. RR: 18. O2 saturation: 100%. Pain level now: 10/24. --10:25 01/29/20 Wesley Childers RN ( pt remains awake and alert, continues to voice a headache and abdominal pain, waiting for final results). --10:01/29/20 Wesley Childers RN 10:52 01/29/2020 Started 1000 mg of Keppra (levETIRAcetam) IVPB in bag #1 100 mL; at 400 mL/hr over 15 minute(s) via site #1. via IV pump. Allergies verified and confirmed 5 rights. IV patency established. IV site checked: no pain, redness, or swelling. IV flushed thoroughly pre- and post-medication administration. Information reviewed with patient including reason for taking this medication. Verbalizes understanding. --10:52 01/29/20 Wesley Childers RN 10:54 01/29/20. BP: 141/96. MAP: 111. HR: 106. RR: 16. O2 saturation: 100%. Pain level now: 10/24. --10:55 01/29/20 Wesley Childers RN ( pt now to be transferred to [place] in [place]). --10:55 01/29/20 Wesley Childers RN 11:11 01/29/2020 Keppra IVPB via IV site #1 Discontinued: infused. Total amount infused: 100 mL. IV patency established. IV site checked: no pain, redness, or swelling. IV flushed thoroughly. --11:01/29/20 Wesley Childers RN 11:19 01/29/20. BP: 138/98. MAP: 111. HR: 106. RR: 16. O2 saturation: 100%. Temp: 97.1 F. Pain level now: 10/24. --11:01/29/20 Wesley Childers RN.DISPOSITION / DISCHARGE Transferred to [facility]. Visit overview and summary of care (CCDA) provided to EMS and transfer facility via paper and fax. Transported via ambulance by EMS with monitor and IV. Report was given to a nurse via a phone call and visit overview. Report included information regarding patient's care, treatment and allergies and current vital signs. Report included treatment information regarding medications given or pending; type and amount of IV fluids and medications infusing and total volume infused. All questions were answered. Report was acknowledged and care was transferred. (Melisa Park RN). --11:01/29/20 Wesley Childers RN 11:01/29/20. BP: 138/98. MAP: 111. HR: 106. RR: 16. O2 saturation: 100%. Temp: 97.1 F. Pain level now: 10/24. --11:01/29/20 Wesley Childers RN ( pt remains awake and alert, continues to voice abdominal pain along with a headache, EMS is loading her onto the stretcher). --11:56 01/29/20 Wesley Childers RN 11:55 01/29/20. BP: 136/98. MAP: 110. HR: 111. RR: 18. O2 saturation: 98%. Temp: 97.1 F. Pain level now: 10/24. --11:56 01/29/20 Wesley Childers RN 5 Clinical Report - Nurses [facility] Emergency Department [address] [place] [address] Phone #: ext- [phone] 01/29/2020 06:00 Patient: NERY WAN Sex: F : 1990 Age: 29y De parture time: 11:59 01/29/2020. --11:59 01/29/20 Wesley Childers RN.Locked/Released at 01/29/2020 11:59 by Wesley Childers RN Name Value Range Interpretation Code Description Data Corrie rce(s) Supporting Document(s) ID Date Data Source [id number] 01/29/2020 06:03:00 AM EDT [facility] 1 Clinical Report - Physicians/Mid Levels [facility] Emergency Department [address] [place] [address] Phone #: ext- [phone] 01/29/2020 06:00 Patient: NERY WAN Sex: F : 1990 Age: 29y Time Seen: 06:11 01/29/2020; initial patient contact. Arrived- By private vehicle. Historian- family.HISTORY OF PRESENT ILLNESS Chief Complaint: SINGLE SEIZURE. This occurred just prior to arrival. Post-ictal in the emergency department. Seizure was witnessed. Witnessed by spouse. Had a single isolated seizure. Seizure activity was brief and lasted seconds. Generalized motor activity observed. Post-ictally has had weakness. No injuries noted. 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 Similar symptoms previously. Patient has had similar symptoms many times, chronically. Recent medical care: The patient was seen recently at another facility in the emergency department. ( [facility] last evening).REVIEW OF SYSTEMSNo fever, chest pain, palpitations, cough or difficulty breathing. No eye irritation, sore throat, diarrhea,black stools or difficulty with urination. No skin rash, enlarged lymph nodes, bloody stools or joint pain.The patient has had mild, intermittent abdominal pain. The pain is described as located in the central areaof the abdomen and left side of the abdomen and associated with nausea and vomiting, mild nausea andmoderate vomiting. All other systems reviewed and are negative.PAST HISTORYSee nurses notes. Problems: Asthma. Seizure. Panic Attack. Anxiety Reaction. Tension-Type Headache. Epilepsy. Hypothyroidism. Hodgkin's lymphoma. 2 Clinical Report - Physicians/Mid Levels [facility] Emergency Department [address] [place] [address] Phone #: ext- [phone] 01/29/2020 06:00 Patient: NERY WAN Sex: F : 1990 Age: 29y Additional Surgeries: Adenoidectomy. 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 Lymph node removal. Tympanostomy Tubes. Medications: Albuterol Sulfate HFA Inhalation 2 puffs, as needed. Amitriptyline HCl Oral (Tablet 25 mg) 1 tablet, daily. Bisacodyl Oral 10 mg, as needed. Gabapentin Oral (Capsule 100 mg) 1 capsule, 2x a day. Keppra Oral (Tablet 750 mg) 1 tablet, 2x a day. LaMICtal Oral (Tablet 200 mg) 1 tablet, 2x a day. Levothyroxine Sodium Oral (Tablet 150 mcg) 1 tablet, daily. metroNIDAZOLE Oral (Tablet 500 mg) 1 tablet, daily (for 7 days, d/c 05/01/2019). MiraLax Oral 1 packet, daily. Nexplanon Subcutaneous. Allergies: Fentanyl and Related.(hives) (seizures) Ketamine.(hives, SOB) Latex.SOCIAL HISTORYNever smoker. No alcohol use or drug use.ADDITIONAL NOTESThe nursing notes have been reviewed with agreement regarding the chief complaint, HPI, ROS, PMH andpatient medications and allergies.PHYSICAL EXAMVital Signs: 01/29/2020 06:30 BP: 136/93. MAP: 107. HR: 120. RR: 12. O2 saturation: 100%. Temp: 98.6F. Have been reviewed. Oxygen saturation normal.Appearance: Alert. No acute distress. Anxious.Eyes: Pupils equal, round and reactive to light. No nystagmus. Extraocular movements normal.ENT: Normal ENT inspection. TM's normal. Moist mucous membranes. Pharynx normal.Neck: Normal inspection. Neck supple.CVS: Tachycardia. Normal heart rhythm. Heart sounds normal. Pulses normal.Respiratory: No respiratory distress. Painless inspiration. Breath sounds normal.Abdomen: Soft and nontender. No organomegaly.Back: Normal inspection.Skin: Skin warm and dry. Normal skin color. No rash. Normal skin turgor.Extremities: Extremities exhibit normal ROM. No lower extremity edema.Neuro: Alert. Oriented X 3. Mood/affect normal. Speech normal. Cranial nerves normal (as tested).No motor deficit. Reflexes normal. 3 Clinical Report - Physicians/Mid Levels [facility] Emergency Department [address] [place] [address] Phone #: ext- [phone] 01/29/2020 06:00 Patient: NERY WAN Sex: F : 1990 Age: 29yLABS, X-RAYS, AND EKGEKG: No acute process. No acute ischemia. Normal EKG. T achycardia (110/min). Normal ST and [place]. EKG unchanged when compared with prior EKG. (06-10-14). The study has been interpretedcontemporaneously by me. The EKG appears to be a good tracing. Interpretation time: 06:161.Chest X-ray: No acute disease. Views: AP (portable). The X-rays were interpreted by the radiologist.Interpretation time: 06:34 01/29/2020.Laboratory Tests: Laboratory tests have been ordered, with results reviewed and considered in themedical decision making process. CT Abd PEL W/ IV Contrast Only: (HUSSEIN: 01/29/2020 06:41) ( MsgRcvd 01/29/2020 06:54) Canceled Reason(s): periumbilical pain w vomiting Reason(s): periumbilical pain w vomiting TRANSPORTATION: S IV? IV?(Yes) O2? Oxygen?(No) Ro CBC w Diff: (HUSSEIN: 01/29/2020 06:17) ( MsgRcvd 01/29/2020 06:50) Final results Test Result Flag Units (Reference) CBC W/AUTOMATED DIFF COMPLETE BLOOD COUNT WBC 6.7 10/uL (4.2 - 11.0) RBC 4.35 10/uL (4.20 - 5.40) HEMOGLOBIN 11.8 L g/dL (12.0 - 16.0) HEMATOCRIT 36.4 L % (37.0 - 47.0) MCV 83.7 fL (81.0 - 101) MCH 27.1 pg (27.0 - 34.0) MCHC 32.4 g/dL (31.0 - 36.0) RDW 13.9 % (11.5 - 14.5) PLATELETS 189 10/uL (150 - 450) MPV 9.6 fL (7.4 - 10.4) NEUT 78.6 % (37.0 - 80.0) LYMPH 14.9 L % (25.0 - 40.0) MONO 5.7 % (3.0 - 8.0) EOS 0.3 % (0.0 - 7.0) BASO 0.3 % (0.0 - 2.5) %IG 0.2 H % (0.0 - 0.0) %NRBC 0.0 % (0.0 - 0.0) #NEUT 5.23 10/uL (2.00 - 6.90) #LYMPH 0.99 10/uL (0.60 - 3.40) #MONO 0.38 10/uL (0.00 - 0.90) #EOS 0.02 10/uL (0.00 - 0.70) #BASO 0.02 10/uL (0.00 - 0.20) #IG 0.01 10/uL (0.00 - 0.10) #NRBC 0.00 10/uL (0.00 - 0.00) MANUAL DIFF NOT INDICATED RBC MORPH NOT INDICATED CMP: (HUSSEIN: 01/29/2020 06:17) ( MsgRcvd 01/29/2020 06:47) Final results Test Result Flag Units (Reference) COMPREHENSIVE METABOLIC PANEL COMPREHENSIVE METABOLIC PANEL SODIUM 140 mEq/L (134 - 153) POTASSIUM 4.0 mEq/L (3.6 - 5.0) 4 Clinical Report - Physicians/Mid Levels [facility] Emergency Department [address] [place] [address] Phone #: ext- [phone] 01/29/2020 06:00 Patient: NERY WAN Sex: F : 1990 Age: 29y CHLORIDE 107 mEq/L (98 - 107) CO2 24 MEQ/L (22 - 30) GLUCOSE 112 H MG/DL (65 - 110) BUN 8 MG/DL (7 - 21) CREATININE 0.6 L MG/DL (0.7 - 1.5) BUN/CREAT 13 (8 - 27) TOTAL PROTEIN 6.6 G/DL (6.3 - 8.2) ALBUMIN 4.5 G/DL (3.9 - 5.0) GLOBULIN 2.1 L GM/DL (2.4 - 3.2) A/G RATIO 2.1 H (0.8 - 2.0) CALCIUM 9.1 MG/DL (8.4 - 10.2) TOTAL BILI <0.7 MG/DL (0.2 - 1.3) ALKALINE PHOS 57 U/L (38 - 126) SGOT/AST 12 U/L (5 - 40) SGPT/ALT 9 U/L (7 - 56) ANION GAP 9.0 mmol/L (8.0 - 16.0) AGE 29 yrs NON-AA GFR >60 mL/min AFR AMER GFR > 60 mL/min Male GFR Interprentation 20-49 yrs >60 mL/min Normal 50-59 yrs >56 mL/min Normal 60-69 yrs >49 mL/min Normal 70-79yrs >42 mL/min Normal 80 and above >35 mL/min Normal Female GFR Interpretation 20-39 yrs >60 mL/min Normal 40-49 yrs >58 mL/min Normal 50-59 yrs >51 mL/min Normal 60-69 yrs >45 mL/min Normal 70-79 yrs >39 mL/min Normal 80 and above >32 mL/min Normal PT/PTT: (HUSSEIN: 01/29/2020 06:17) ( [facility] 01/29[facility] 06:49) Final results Test Result Flag Units (Reference) PROTIME 13.3 SECONDS (11.0 - 15.5) INR 1.00 (0.93 - 1.23) PTT 29.0 SECONDS (24.8 - 36.7) \\BLDo\\INR INTERPRETATION\\BLDx\\ Therapeutic range for Coumadin and related oral anticoagulants. -International Normalized Ratio (INR): 2.0 - 3.0 for Venous Thrombosis, Pulmonary Embolus, Tissue heart valves, Acute CA Atrial Fibrillation, Valvular heart disease and recurrent Systemic Embolism. -International Normalized Ratio (INR): 2.5 - 3.5 for Mechanical Prosthetic valve. Troponin-T: (HUSSEIN: 01/29/2020 06:17) ( [facility] 01/29/2020 06:47) Final results Test Result Flag Units (Reference) TROPONIN T <0.01 NG/ML (0.00 - 0.10) TROPONIN T0.1 ng/ml Recommended as the clinical threshold value forTroponin T. Magnesium: (HUSSEIN: 01/29/2020 06:17) ( [facility] 01/29/2020 06:46) Final results Test Result Flag Units (Reference) MAGNESIUM 1.9 MG/DL (1.7 - 2.2) Chest Portable 1 View: (HUSSEIN: 01/29/2020 06:12) ( RigRcvd 01/29/2020 06:31) In Progress CHEST PORTABLE Reason(s): seizure TRANSPORTATION: P IV? O2? Oxygen?(No) Room: ED. 5 Clinical Report - Physicians/Mid Levels [facility] Emergency Department [address] [place] [address] Phone #: ext- [phone] 01/29/2020 06:00 Patient: NERY WAN Sex: F : 1990 Age: 29yPROGRESS AND PROCEDURESCourse of Care: 06:41 01/29/20. pt now awake and very alert, and complaining of periumbilical, leftabdominal pain since last night; workup pending, CTAP w/o is ordered and pending. ED care transferred.Case discussed with Dr. Novoa. Brief hx: as per H. Pending items: lab and CT / MRI results. Tentativeimpression: Pseudo-seizure, anxiety. Expected disposition: discharge from ED.(Electronically signed by Manuelito Carvajal M.D. 01/30/2020 07:38) Time Seen: 07:00 01/29/2020 (Dr. Novoa assumes care from Dr. Carvajal). ED care transferred. Case discussed and assumed care. Case discussed with receiving physician. Arrived- By private vehicle. Historian- patient. Disposition decision: 11:17 01/29/2020.HISTORY OF PRESENT ILLNESS Chief Complaint: SINGLE SEIZURE. This occurred just prior to arrival and today. The patient recovered at the scene. Post-ictal in the emergency department. Patient was witnessed to be last known well. Seizure was witnessed. Witnessed by spouse. Had a single isolated seizure. Did not experience repeated seizures. Seizure activity was brief and lasted seconds. No loss of consciousness, focal motor activity, incontinence, apnea noted or confusion post-ictally. No speech difficulty post-ictally, numbness post-ictally or headache post-ictally. Generalized motor activity observed. Post-ictally has been obtunded and had generalized weakness. Did not lose pulse. No injuries noted. Did not recently change anticonvulsant medication or miss recent dose of anticonvulsant. Has not recently been ill. No recent sleep deprivation or alcohol recently. Now having abdominal pain in addition to her seizures earlier. Similar symptoms previously. Patient has had similar symptoms many times, frequently. Recent medical care: The patient was seen recently at another facility in the emergency department and hospitalized. ( Has been hospitalized in [place] 4 weeks ago and [facility] 2 weeks ago and has had multiple scans and EEGs. Just seen and released from [facility] ED 1 hour before arriving here at [facility]REVIEW OF SYSTEMSNo fever, chest pain, palpitations, cough or difficulty breathing. No eye irritation, sore throat, diarrhea,black stools or difficulty with urination. No vomiting or bloody stools. The patient has had abdominal painand nausea. 6 Clinical Report - Physicians/Mid Levels [facility] Emergency Department [address] [place] [address] Phone #: ext- [phone] 01/29/2020 06:00 Patient: NERY WAN Sex: F : 1990 Age: 29yPAST HISTORYPast history not negative. See nurses notes. Lung disease. Neurological disease. Other disease. (AsthmaSeizures / Epilepsy / PseudoseizuresPanic attack / AnxietyTension headachesHypothyroidismHodgkins Lymphoma). Surgeries: Adenoidectomy. Tympanostomy tube placement. (Bone marrow biopsy and transplant Lymphadenectomy / biopsy).SOCIAL HISTORYNever smoker. No alcohol use or drug use. No recent travel.ADDITIONAL NOTESThe nursing notes have been reviewed with agreement regarding the chief complaint, HPI, ROS, PMH andpatient medications and allergies.PHYSICAL EXAMVital Signs: 01/29/2020 06:45 BP: 127/85. MAP: 99. HR: 111. RR: 20. O2 saturation: 100%.01/29/2020 06:15 BP: 136/93. MAP: 107. HR: 120. RR: 12. O2 saturation: 100%. Temp: 98.6 F. Havebeen reviewed and appear to be correct. Blood pressure normal. Tachycardic. Respiratory rate normal.Temperature normal. Oxygen saturation normal.Appearance: Alert. Anxious. Appears post-ictal. Patient in moderate distress. In distress.Eyes: Pupils equal, round and reactive to light. No nystagmus. Extraocular movements normal.ENT: ENT inspection not normal. Mucous membranes not moist. Dry mucous membranes present.Pharynx normal.Neck: Normal inspection. Neck supple.CVS: Heart rate abnormal. Tachycardia. Normal heart rhythm. Heart sounds normal. Pulses normal.Respiratory: No respiratory distress. Painless inspiration. Breath sounds normal.Abdomen: Soft. Moderate tenderness diffusely. No organomegaly. Tenderness present.Back: Normal inspection.Skin: Skin warm and dry. Abnormal skin color. No rash. Normal skin turgor. Pallor.Extremities: Extremities exhibit normal ROM. No lower extremity edema.Neuro: Not alert. Oriented X 3. Mildly altered mental status: lethargic. Mood/affect normal. Speechnormal. Cranial nerves normal (as tested). No cerebellar findings. Motor deficit noted. The patient hasgeneralized weakness. No sensory deficit. Reflexes normal.LABS, X- RAYS, AND EKGCT Head: No acute disease.Abdominal CT: No acute disease.Laboratory Tests: Laboratory tests have been ordered, with results reviewed and considered in the 7 Clinical Report - Physicians/Mid Levels [facility] Emergency Department [address] [place] [address] Phone #: ext- [phone] 01/29/2020 06:00 Patient: NERY WAN Sex: F : 1990 Age: 29ymedical decision making process.Urinalysis: (HUSSEIN: 01/29/2020 08:00) ( MsgRcvd 01/29/2020 08:43) Final results Test Result Flag Units (Reference) URINALYSIS URINALYSIS SOURCE R COLOR yellow (NORMAL: Yello CLARITY clear (NORMAL: Clear SPEC GRAVITY 1.005 (1.001 - 1.030 pH 7 (5 - 9) GLUCOSE NORM (NORMAL: Negat BILIRUBIN NEG (NORMAL: Negat KETONE 5 A (NORMAL: Negat PROTEIN NEG (NORMAL: Negat NITRITE NE G (NORMAL: Negat BLOOD NEG (NORMAL: Negat LEUK EST NEG (NORMAL: Negat UROBILINOGEN NOR (less than 1.0 MICROSCOPIC Not IndicateDrug Screen-Urine: (HUSSEIN: 01/29/2020 08:00) ( [facility] 01/29/2020 08:51) Final results Test Result Flag Units (Reference) DRUG SCREEN URINE URINE DRUG SCREEN AMPHETAMINES NEGATIVE (NORMAL: NEGAT BARBITURATES NEGATIVE (NORMAL: NEGAT BENZO NEGATIVE (NORMAL: NEGAT COCAINE NEGATIVE (NORMAL: NEGAT THC NEGATIVE (NORMAL: NEGAT OPIATES NEGATIVE (NORMAL: NEGAT PCP NEGATIVE (NORMAL: NEGAT \\BLDo\\URINE DRUG SCREEN INTERPRETATION\\BLDx\\ THE CUTOFFF LEVELS FORDETECTION ARE FOLLOWS: AMPHETAMINES 1000 ng/mlBARBITUARATES 200 ng/ml BENZODIAZEPINES 100 ng/mlTHC 50 ng/ml PHENCYCLIDINE 25 ng/mlOPIATES 300 ng/ml COCAINE 300 ng/mlALL POSITIVES ARE CONSIDERED PRESUMPTIVE POSITIVE CONFIRMATION WILL BE PERFORMED AT [facility].CT ABD PEL W/O Oral W/O IV Contrast: (HUSSEIN: 01/29/2020 06:54) ( gRcvd 01/29/2020 07:22) InProgressCT ABDReason(s): periumbilical pain w vomitingTRANSPORTATION: S IV? IV?(Yes) O2? Oxygen?(No) RoCT Abd PEL W/ IV Contrast Only: (HUSSEIN: 01/29/2020 06:41) ( gRcvd 01/29/2020 06:54) CanceledReason(s): periumbilical pain w vomitingReason(s): periumbilical pain w vomitingTRANSPORTATION: S IV? IV?(Yes) O2? Oxygen?(No) RoCBC w Diff: (HUSSEIN: 01/29/2020 06:17) ( MsgRcvd 01/29/2020 06:50) Final results 8 Clinical Report - Physicians/Mid Levels [facility] Emergency Department [address] [place] [address] Phone #: ext- [phone] 01/29/2020 06:00 Patient: NERY WAN Sex: F : 1990 Age: 29y Test Result Flag Units (Reference) CBC W/AUTOMATED DIFF COMPLETE BLOOD COUNT WBC 6.7 10/uL (4.2 - 11.0) RBC 4.35 10/uL (4.20 - 5.40) HEMOGLOBIN 11.8 L g/dL (12.0 - 16.0) HEMATOCRIT 36.4 L % (37.0 - 47.0) MCV 83.7 fL (81.0 - 101) MCH 27.1 pg (27.0 - 34.0) MCHC 32.4 g/dL (31.0 - 36.0) RDW 13.9 % (11.5 - 14.5) PLATELETS 189 10/uL (150 - 450) MPV 9.6 fL (7.4 - 10.4) NEUT 78.6 % (37.0 - 80.0) LYMPH 14.9 L % (25.0 - 40.0) MONO 5.7 % (3.0 - 8.0) EOS 0.3 % (0.0 - 7.0) BASO 0.3 % (0.0 - 2.5) %IG 0.2 H % (0.0 - 0.0) %NRBC 0.0 % (0.0 - 0.0) #NEUT 5.23 10/uL (2.00 - 6.90) #LYMPH 0.99 10/uL (0.60 - 3.40) #MONO 0.38 10/uL (0.00 - 0.90) #EOS 0.02 10/uL (0.00 - 0.70) #BASO 0.02 10/uL (0.00 - 0.20) #IG 0.01 10/uL (0.00 - 0.10) #NRBC 0.00 10/uL (0.00 - 0.00) MANUAL DIFF NOT INDICATED RBC MORPH NOT INDICATEDCMP: (HUSSEIN: 01/29/2020 06:17) ( MsgRcvd 01/29/2020 06:47) Final results Test Result Flag Units (Reference) COMPREHENSIVE METABOLIC PANEL COMPREHENSIVE METABOLIC PANEL SODIUM 140 mEq/L (134 - 153) POTASSIUM 4.0 mEq/L (3.6 - 5.0) CHLORIDE 107 mEq/L (98 - 107) CO2 24 MEQ/L (22 - 30) GLUCOSE 112 H MG/DL (65 - 110) BUN 8 MG/DL (7 - 21) CREATININE 0.6 L MG/DL (0.7 - 1.5) BUN/CREAT 13 (8 - 27) TOTAL PROTEIN 6.6 G/DL (6.3 - 8.2) ALBUMIN 4.5 G/DL (3.9 - 5.0) GLOBULIN 2.1 L GM/DL (2.4 - 3.2) A/G RATIO 2.1 H (0.8 - 2.0) CALCIUM 9.1 MG/DL (8.4 - 10.2) TOTAL BILI <0.7 MG/DL (0.2 - 1.3) ALKALINE PHOS 57 U/L (38 - 126) SGOT/AST 12 U/L (5 - 40) SGPT/ALT 9 U/L (7 - 56) ANION GAP 9.0 mmol/L (8.0 - 16.0) AGE 29 yrs NON-AA GFR >60 mL/min AFR AMER GFR >60 mL/min Male GFR Interprentation 20-49 yrs >60 mL/min Ovjniw14-08 yrs >56 mL/min Normal 60-69 yrs >49 mL/min Normal 70-79yrs>42 mL/min Normal 80 and above >35 mL/min Normal Female GFRInterpretation 20-39 yrs >60 mL/min Normal 40-49 yrs >58 mL/min 9 Clinical Report - Physicians/Mid Levels [facility] Emergency Department [address] [place] [address] Phone #: ext- [phone] 01/29/2020 06:00 Patient: NERY WAN Sex: F : 1990 Age: 29y Normal 50-59 yrs >51 mL/min Normal 60-69 yrs >45 mL/min Normal 70- 79 yrs >39 mL/min Normal 80 and above >32 mL/min Normal PT/PTT: (HUSSEIN: 01/29/2020 06:17) ( [facility] 01/29/2020 06:49) Final results Test Result Flag Units (Reference) PROTIME 13.3 SECONDS (11.0 - 15.5) INR 1.00 (0.93 - 1.23) PTT 29.0 SECONDS (24.8 - 36.7) \\BLDo\\INR INTERPRETATION\\BLDx\\ Therapeutic range for Coumadin and related oral anticoagulants. -International Normalized Ratio (INR): 2.0 - 3.0 for Venous Thrombosis, Pulmonary Embolus, Tissue heart valves, Acute CA Atrial Fibrillation, Valvular heart disease and recurrent Systemic Embolism. -International Normalized Ratio (INR): 2.5 - 3.5 for Mechanical Prosthetic valve. Troponin-T: (HUSSEIN: 01/29/2020 06:17) ( [facility] 01/29/2020 06:47) Final results Test Result Flag Units (Reference) TROPONIN T <0.01 NG/ML (0.00 - 0.10) TROPONIN T0.1 ng/ml Recommended as the clinical threshold value forTroponin T. Magnesium: (HUSSEIN: 01/29/2020 06:17) ( [facility] 01/29/2020 06:46) Final results Test Result Flag Units (Reference) MAGNESIUM 1.9 MG/DL (1.7 - 2.2) Beta-HCG, Qual Serum: (HUSSEIN: 01/29/2020 06:17) ( MsgRcvd 01/29/2020 07:41) Final results Test Result Flag Units (Reference) HCG SERUM QUAL NEGATIVE (NORMAL: NEGAT HCG SERUM QL REENTER NEGATIVE (NORMAL: NEGAT { KIT LOT # [id number] ){ KIT EXP DATE 01.20.21 ){ PROCEDURAL CONTROL VALID ) Chest Portable 1 View: (HUSSEIN: 01/29/2020 06:12) ( MsgRcvd 01/29/2020 06:31) In Progress CHEST PORTAB LE Reason(s): seizure TRANSPORTATION: P IV? O2? Oxygen?(No) Room: ED . Note - Tests: (EKG - Sinus tach, poss. old septal infarct. CXR - No significant pulmonary process.).PROGRESS AND PROCEDURESCourse of Care: 08:19 Jan 29 2020. Patient is stable. 08:19 Jan 29 2020. Pt. says headache is 10/10 and I will give her some Morphine and Zofran IV. Head CT report is pending. 08:[address] scans of head and abdomen / pelvis are unremarkable. 10 Clinical Report - Physicians/Mid Levels [facility] Emergency Department [address] [place] [address] Phone #: ext- [phone] 01/29/2020 06:00 Patient: NERY WAN Sex: F : 1990 Age: 29y Labs are unremarkable. Pt. wants to be transferred to [facility], but she has apparently been evaluated and discharged from there recently. I will speak to Neurology at [facility] and get their opinion. 11:16 Jan 29 2020. Pt. was accepted for transfer to [place] ED by Dr. Cronin at 10:45AM. Pt. informed and agrees to transfer. Critical care performed (130 minutes). Time is exclusive of separately billable procedures. Time includes: direct patient care, patient reassessment, coordination of patient care, interpretation of data (laboratory data, pulse oximetry and chest xrays), review of patient's medical records, medical consultation and documentation of patient care- see progress notes. Procedures included in critical care time: peripheral IV placement and phlebotomy- see progress notes. Disposition: Benefits, risks and alternatives to transfer explained to patient. Transferred to [facility]. Summary of care (CCDA) provided to transport team, EMS, patient, family and transfer facility via paper and digital media. 10:45 Jan 29 2020 Transfer to [facility] by ambulance as per Dr. Cronin (Accepting ED physician). UTI (catheter associated) was not present prior to transfer. Pressure ulcer was not present prior to transfer. Vascular infection (catheter associated) was not present prior to transfer. Surgical site infection was not present prior to transfer. An object left in surgery was not present prior to transfer. Blood incompatibility was not present prior to transfer. Air embolism was not present prior to transfer.CLINICAL IMPRESSION Generalized abdominal pain of undetermined cause. Generalized seizure of unknown cause. History of poorly controlled and idiopathic etiology epilepsy. No febrile seizure or status epilepticus.(Electronically signed by Vamsi Novoa, Physician 01/29/2020 14:30) Name Value Range Interpretation Code Description Data Corrie rce(s) Supporting Document(s) ID Date Data Source [id number] 01/29/2020 06:59:00 [place] [address] RESPIRATORY CARE REPORT ==== ---------NAME------- NUMBER SEX AGE ADMIT DISC. XRAY# F/C TYPEABBASS NERY Wisdom [id number] F 29 01/29/20 01/29/20 [id number] XBE E/R DATE OF : 1990 M/R# [id number] #: [id number] TR-07 LOCATION: G [id number] COMPLETE:01/29/20 0 8:16 [facility] [id number] PHYSICIAN: WEI BRISCOE Name Value Range Interpretation Code Description Data Corrie rce(s) Supporting Document(s) ID Date Data Source [id number] 01/29/2020 08:51:00 AM EDT [facility] Name Value Range Interpretation Code Description Data Corrie rce(s) Supporting Document(s) DRUG SCREEN URINE [facility] URINE DRUG SCREEN Amphetamine [Presence] in Urine by Screen method NEGATIVE NORMAL: N EGATIVE [facility] BARBITURATES NEGATIVE NORMAL: NEGATIVE [facility] BENZO NEGATIVE NORMAL: NEGATIVE [facility] COCAINE NEGATIVE NORMAL: NEGATIVE [facility] Tetrahydrocannabinol [Presence] in Urine NEGATIVE NORMAL: NEGATIVE [facility] OPIATES NEGATIVE NORMAL: NEGATIVE [facility] Phencyclidine [Presence] in Urine by Screen method NEGATIVE NOR MAL: NEGATIVE [facility] \\BLDo\\URINE DRUG SCR EEN INTERPRETATION\\BLDx\\ THE CUTOFFF LEVELS FOR DETECTION ARE FOLLOWS: AMPHETAMINES 1000 ng/ml BARBITUARATES 200 ng/ml BENZODIAZEPINES 100 ng/ml THC 50 ng/ml PHENCYCLIDINE 25 ng/ml OPIATES 300 ng/ml COCAINE 300 ng/ml ALL POSITIVES ARE CONSIDERED PRESUMPTIVE POSITIVE CONFIRMATION WILL BE PERFORMED AT PHYSICIAN REQUEST. ID Date Data Source [id number] 01/29/2020 08:42:00 AM EDT [facility] Name Value Range Interpretation Code Description Data [facility] rce(s) Supporting Document(s) [facility] COLOR yellow NORMAL: Yellow [facility] CLARITY clear NORMAL: Clear [facility] Specific gravity of Urine by Test strip 1.005 1.001 - 1.030 [facility] pH 7 5 - 9 [facility] al Glucose [Mass/volume] in Urine by Test strip NORM NORMAL: Negat [facility] Bilirubin.total [Presence] in Urine by Test strip NEG NORMAL: Negative [facility] Ketones [Presence] in Urine by Test strip 5 NORMAL: Negative [facility] Protein [Mass/volume] in Urine by Test strip NEG NORMAL: Negat [facility] Nitrite [Presence] in Urine by Test strip NEG NORMAL: Negative [facility] BLOOD NEG NORMAL: Negative [facility] Leukocyte esterase [Presence] in Urine by Test strip NEG STORMY L: Negative [facility] Urobilinogen [Mass/volume] in Urine by Test strip NOR less sapphire n 1.0 mg/dL [facility] MICROSCOPIC Not Indicate [facility] ID Date Data Source [id number] 01/29/2020 07:41:00 AM EDT [facility] Name Value Range Interpretation Code Description Data Corrie rce(s) Supporting Document(s) HCG SERUM QUAL NEGATIVE NORMAL: NEGATIVE [facility] HCG SERUM QL REENTER NEGATIVE NORMAL: NEGATIVE [facility] { KIT LOT # [id number] ){ KIT EXP DATE 01.20.21 ){ PROCEDURAL CONTROL VALID ) ID Date Data Source [id number] 01/29/2020 06:50:00 AM EDT [facility] Name Value Range Interpretation Code Description Data Corrie rce(s) Supporting Document(s) CBC W/AUTOMATED DIFF [facility] COMPLETE BLOOD COUNT Leukocytes [#/volume] in Blood by Automated count 6.7 10^3/uL 4.2 - 1 1.0 [facility] Erythrocytes [#/volume] in Blood by Automated count 4.35 10^6/uL 4. 20 - 5.40 [facility] Hemoglobin [Mass/volume] in Blood 11.8 g/dL 12.0 - 16.0 L [facility] Hematocrit [Volume Fraction] of Blood by Automated count 36.4 % 3 7.0 - 47.0 L [facility] Erythrocyte mean corpuscular volume [Entitic volume] by Auto mated count 83.7 fL 81.0 - 101 [facility] Erythrocyte mean corpuscular hemoglobin [Entitic mass] by Automated count 27.1 pg 27.0 - 34.0 [facility] Erythrocyte mean corpuscular hemoglobin concentration [Mass/volume] by Automated count 32.4 g/dL 31.0 - 36.0 [facility] Erythrocyte distribution width [Ratio] by Automated count 13.9 % 11.5 - 14.5 [facility] Platelets [#/volume] in Blood by Automated count 189 10^3/uL 150 - 45 0 [facility] Platelet mean volume [Entitic volume] in Blood by Automated count 9.6 fL 7.4 - 10.4 [facility] Neutrophils/100 leukocytes in Blood by Automated count 78.6 % 37. 0 - 80.0 [facility] Lymphocytes/100 leukocytes in Blood by Manual count 14.9 % 25.0 - 40.0 L [facility] Monocytes/100 leukocytes in Blood by Automated count 5.7 % 3.0 - 8.0 [facility] Eosinophils/100 leukocytes in Blood by Automated count 0.3 % 0.0 - 7.0 [facility] Basophils/100 leukocytes in Blood by Automated count 0.3 % 0.0 - 2.5 [facility] %IG 0.2 % 0.0 - 0.0 [facility] %NRBC 0.0 % 0.0 - 0.0 [facility] al Neutrophils [#/volume] in Blood by Automated count 5.23 10^3/uL 2.00 - 6.90 [facility] Lymphocytes [#/volume] in Blood by Automated count 0.99 10^3/uL 0.60 - 3.40 [facility] Monocytes [#/volume] in Blood by Automated count 0.38 10^3/uL 0.00 - 0.90 [facility] Eosinophils [#/volume] in Blood by Automated count 0.02 10^3/uL 0.00 - 0.70 [facility] Basophils [#/volume] in Blood by Automated count 0.02 10^3/uL 0.00 - 0.20 [facility] #IG 0.01 10^3/uL 0.00 - 0.10 [facility] ospital #NRBC 0.00 10^3/uL 0.00 - 0.00 [facility] ospital MANUAL DIFF NOT INDICATED [facility] RBC MORPH NOT INDICATED [facility] spital ID Date Data Source [id number] 01/29/2020 06:49:00 AM EDT [facility] Name Value Range Interpretation Code Description Data Corrie rce(s) Supporting Document(s) Prothrombin time (PT) 13.3 SECONDS 11.0 - 15.5 [facility] INR in Platelet poor plasma by Coagulation assay 1.00 0.93 - 1. 23 [facility] aPTT in Blood by Coagulation assay 29.0 SECONDS 24.8 - 36.7 [facility] \\BLDo\\INR INTERPRETATION\\BLDx\\ Therapeutic range for Coumadin and related oral anticoagulants. - International Normalized Ratio (INR): 2.0 - 3.0 for Venous Thrombosis, Pulmonary Embolus, Tissue heart valves, Acute CA Atrial Fibrillation, Valvular heart disease and recurrent Systemic Embolism. - International Normalized Ratio (INR): 2.5 - 3.5 for Mechanical Prosthetic valve. ID Date Data Source [id number] 01/29/2020 06:47:00 AM EDT [facility] Name Value Range Interpretation Code Description Data Corrie rce(s) Supporting Document(s) COMPREHENSIVE METABOLIC PANEL [facility] COMPREHENSIVE METABOLIC PANEL Sodium [Moles/volume] in Serum or Plasma 140 mEq/L 134 - 153 [facility] Potassium [Moles/volume] in Serum or Plasma 4.0 mEq/L 3.6 - 5.0 [facility] Chloride [Moles/volume] in Serum or Plasma 107 mEq/L 98 - 107 [facility] Carbon dioxide, total [Moles/volume] in Serum or Plasma 24 MEQ/L 22 - 30 [facility] Glucose [Mass/volume] in Serum or Plasma 112 MG/DL 65 - 110 H [facility] BUN 8 MG/DL 7 - 21 [facility] Creatinine [Mass/volume] in Serum or Plasma 0.6 MG/DL 0.7 - 1.5 L [facility] BUN/CREAT 13 8 - 27 [facility] Protein [Mass/volume] in Serum or Plasma 6.6 G/DL 6.3 - 8.2 [facility] Albumin [Mass/volume] in Serum or Plasma 4.5 G/DL 3.9 - 5.0 [facility] Globulin [Mass/volume] in Serum by calculation 2.1 GM/DL 2.4 - 3.2 L [facility] A/G RATIO 2.1 0.8 - 2.0 [facility] Calcium [Mass/volume] in Serum or Plasma 9.1 MG/DL 8.4 - 10.2 [facility] Bilirubin.total [Mass/volume] in Serum or Plasma <0.7 MG/DL 0.2 - 1.3 [facility] Alkaline phosphatase [Enzymatic activity/volume] in Serum or Plasma 57 U/L 38 - 126 [facility] Aspartate aminotransferase [Enzymatic activity/volume] in Serum or Plasma 12 U/L 5 - 40 [facility] Alanine aminotransferase [Enzymatic activity/volume] in Seru m or Plasma 9 U/L 7 - 56 [facility] Anion gap 3 in Serum or Plasma 9.0 mmol/L 8.0 - 16.0 [facility] AGE 29 yrs [facility] NON-AA GFR >60 mL/min [facility] AFR AMER GFR >60 mL/min [facility] Male GFR In terprentation 20-49 yrs >60 mL/min Normal 50-59 yrs >56 mL/min Normal 60-69 yrs >49 mL/min Normal 70-79yrs >42 mL/min Normal 80 and above >35 mL/min Normal Female GFR Interpretation 20-39 yrs >60 mL/min Normal 40-49 yrs >58 mL/min Normal 50-59 yrs >51 mL/min Normal 60-69 yrs >45 mL/min Normal 70-79 yrs >39 mL/min Normal 80 and above >32 mL/min Normal ID Date Data Source [id number] 01/29/2020 06:47:00 AM EDT [facility] Name Value Range Interpretation Code Description Data Corrie rce(s) Supporting Document(s) TROPONIN T <0.01 NG/ML 0.00 - 0.10 [facility] ospital TROPONIN T0.1 ng/ml Recommended as the c linical threshold value forTroponin T. ID Date Data Source [id number] 01/29/2020 06:46:00 AM EDT [facility] Name Value Range Interpretation Code Description Data Corrie rce(s) Supporting Document(s) Magnesium [Mass/volume] in Serum or Plasma 1.9 MG/DL 1.7 - 2.2 [facility] ID Date Data Source [id number] 01/28/2020 07:27:58 PM EDT [facility] Name Value Range Interpretation Code Description Data Corrie rce(s) Supporting Document(s) Progress Note [facility] ACSDMc8cKxJSZcBz52/LRFetOBRme0IsFBynMPw6ROanTMMoD5MrBMM1iE5bDWH1MPwKOuQjOtMcMGBg lbm [file] TEz66xQ/3/Track Service Person+xcs+O8p8tVsi+AOvufXhT0j0iJaHwPFh7wd3JalcEUjJdZAB30/r/3lF1Jq6ecmcwiO [file] EqaGIQ0UFyFKIJ/MAP/T+auger operator+5//EgCmTVQ0Y36sBjd [file] xjJXHFFz6T ID Date Data Source FREE T4 & TSH PANEL 01/21/2020 07:39:50 AM EDT eCW1 ([facility]) Name Value Range Interpretation Code Description Data Corrie rce(s) Supporting Document(s) 2.200 THYROID STIMULATING HORMONE eC W1 ([facility]) 1.01 FREE T4 eCW1 ([facility]) ID Date Data Source [id number] 01/18/2020 08:29:15 AM EDT [facility] Name Value Range Interpretation Code Description Data Corrie rce(s) Supporting Document(s) Progress Note [facility] VIBGYf6mOcCMWhDh58/IYYlhJJPye7SxRSyeEWs1HYefKSOiF2FjOMD2uE0xIZU5PBmSRzXmDfMwZZVe lbm [file] NHP0XKcjUEE7IMBqVeMbYI9XUp6CRtU3PIR2hXToAa1DHOwxCzXWTaXmWE7MLYf= ID Date Data Source [id number] 01/18/2020 08:29:10 AM EDT [facility] Name Value Range Interpretation Code Description Data Corrie rce(s) Supporting Document(s) Progress Note [facility] WSTPVm9mJtGLUnNt87/BMYnbWZUst3AgPUnjFZg9CLbuNTWiL8OeRTY2oX3xCZF5WNiVKiNkImXbFGHd lbm [file] porwuiB5+YRAw7VfpFdtD6GeH1hyeFckk35kV93igm/7CsS/auger operator/9eVI16QC1E0f3UYkP9mJ8U9Fpx9lO [file] eA7mk33YX45xmNx88lqm3ktb2y1oGv3LqcHi4xAi5DY/QZ8psnsaO2/XvR/tCBwrUMpG+Meléndez+Oasm9DK [file] AgICAgICAgICAgICAgICAgICAgICAgICAgICAgICAgICAgICAgICAgICAgICAgICAgICAgICAgICAgIC AgICAgICAgICAgICAgICAgICAgICANCiAgICAgICAg ICAgICAgICAgICAgICAgICAgICAgICAgICAgICAgICAgICAgICAgICAgICAgICAgICAgICAgICAgICAg ICAgICAgICAgICAgICAgICAgICAgICAgICAgICAgICANCiAgICAgICAgICAgICAgICAgICAgICAgICAg ICAgICAgICAgICAgICAgICAgICAgICAgICAgICAgIC AgICAgICAgICAgICAgICAgICAgICAgICAgICAgICAgICAgICAgICAgICANCiAgICAgICAgICAgICAgIC AgICAgICAgICAgICAgICAgICAgICAgICAgICAgICAgICAgICAgICAgICAgICAgICAgICAgICAgICAgIC AgICAgICAgICAgICAgICAgICAgICAgICANCiAgICAg ICAgICAgICAgICAgICAgICAgICAgICAgICAgICAgICAgICAgICAgICAgICAgICAgICAgICAgICAgICAg ICAgICAgICAgICAgICAgICAgICAgICAgICAgICAgICAgICANCiAgICAgICAgICAgICAgICAgICAgICAg ICAgICAgICAgICAgICAgICAgICAgICAgICAgICAgIC AgICAgICAgICAgICAgICAgICAgICAgICAgICAgICAgICAgICAgICAgICAgICANCiAgICAgICAgICAgIC AgICAgICAgICAgICAgICAgICAgICAgICAgICAgICAgICAgICAgICAgICAgICAgICAgICAgICAgICAgIC AgICAgICAgICAgICAgICAgICAgICAgICAgICANCiAg ICAgICAgICAgICAgICAgICAgICAgICAgICAgICAgICAgICAgICAgICAgICAgICAgICAgICAgICAgICAg ICAgICAgICAgICAgICAgICAgICAgICAgICAgICAgICAgICAgICANCiAgICAgICAgICAgICAgICAgICAg ICAgICAgICAgICAgICAgICAgICAgICAgICAgICAgIC AgICAgICAgICAgICAgICAgICAgICAgICAgICAgICAgICAgICAgICAgICAgICAgICANCiAgICAgICAgIC AgICAgICAgICAgICAgICAgICAgICAgICAgICAgICAgICAgICAgICAgICAgICAgICAgICAgICAgICAgIC AgICAgICAgICAgICAgICAgICAgICAgICAgICAgICAN Cjw/qDLxY2tcjBMritS4Y3qmQa9AIk4INF5je6FwTLGqDPjsgcVdDuyYCeXnKSTbZnrDBmy3OVudZZ0T mEOpN0DiO1GhJRneYY9KBJRrBBGbeWXsYORsGDFkBeF5NTJeHCnnWH9XmQSuEIsyXDMpLNVoGfPxQXBw OSAwIFIgMTEgMCBSIDEzIDAgUiAxNSAwIFIgMTcgMC UKDO8IUvFcU8GulJ50YRvYMi3+OIdjcuAfDgyQMlO1FWVfy7GxCPt8LQ9FFETnJetbi7CgHyCuEHROKI vdHQ1HNLJ0MLO4TSCnWc7XSNJtN267jgZmPU1TXr7GXqYdIH8ulp0VZlZdHGDlXroZWcl8PNqgNC5XuJ YkKUuLcb7eqvIcmsNSt2IeyaQcwLNCYEGdRFN3li3d psrnQUObWBGwER7kXJ9eMIGeWAC1HrMuECOYSG1ZACZqXGMbhOXoMNQvDVTVKZ8SPSkpBNZ3GTCkapGh nODeWCsiYJ0DSUDfvaCqQvFtFCDPZIt+Eh4KDW6qq9YrRGhbCtHcBL2ibf8ITCpXIgVyJ8I3vHXmR2W1 BWhhVy8TSUNvOLVlJdKeKKZMOFyxUS0TQJ0nnpL5HQ 9SeLHwBKMjTNDehPJrAVe9F30qcLEtYSmyRF2KCTR+Sadie+Rk5EBKYlLPChJSMdNhCrJMEPCuFjZ1VbW3 OAm0WgX0LwLW26pBzrihKmRFeaSL7PXI1mVEKlHKWLGL5WmSKmfR9dcfIaYGGwILMROcJnR04efIMiQR AnYBPcVFAjLy9SEPXrK4CixpOmbOuaazQiSBBdUUHA GF3HXIjmmcNddCEuzUtiVS01xYscCU0XJi9HPsVvJX8arm0DzDKcUx6NTPAhXg8VHCZhPPZdHTEnATP7 IPFpXkAcTWrbTUJwOUEzRKM0MBItNJCnEH2LVjYxEIMzJfA9YPTiKMTwFLHhod8GWPNgLOEoABFiWCOs LUIhVKNgTKjcWKBqBQWuDTY0SGOnVGArXE4LHkNpVU PtUPG7UGThKKMxYAWlwc3RDHOnDQTyWsr1OvMrWTHkRCBuMFgaGCAsCMA3YGU4FLUjQMHaYY7OMmDqZH QzVMxcUaDnIBEpZHVvow6ZEFRxOKQcNTJgUOQvAPCvPWPeETkaJLQtXANbFnK3KEUvMZMkOQ5JCcAlBD BdQFH2AFGwZUUiMOYxjh5BJRUhZSDbMwm5CKBpDIOq QFRlDRmeLFGhIIW7HSS2BZSmOIKtOK5OSjBgXDDvINT9EcJcXKTxUAQpvh1FAVDqWSQqJMYqANVmUNPn SMYgVUlhXHZkUUE8RlLcZCZxQECrBB2LTdMwJPBtHIk0KDqeXECoQVHtvn6MASSmKVRtFHGtIAHjLEQh CKVpUOwuVCRsFQRnLOV7DYXhQSGpJE8GClWqYUUhVp PxRxDwSXRnEHSzoc4AABJjDJCdRKB6LERvYLKgTPWpTJwdYSAeYIQmHVZ8KPFrPTHeIT9OGuQvINTyRu L2RDLpNXHnVNHrwz0WOCGwBJMnJtz7KWUwIEEiZQIyIAxaOQGdLKO0IdR2NAUmJTCxVO3VIkWcRAHiOk D7NIauOLLsYSXowg1ANBZsGJYcOTp0KKPlVVDwBKSb KItwFUNzWMH3ROT7KZFsMNHnJS6AUuOmBCMvCwVvSFSsYTKqYNGayt6JWIUsLLThKyF7BBItUZVkEWLx LBrvCTEgABP1Mta4SPXdCRGuPF8MEmHoRZNhFyF3KaVqJWZzIJDzph7BDORoHZYjPbk5TTXbSHKiKRWx JFvaHEVhNMP1GlF5KBTbMWUmRR8ONxLcPWIlFld0Sf TeUIErHAQkwm1DHBDgIGDtJRW9KbZtEOQgXJKyKPp7laBiqEFjATs1ZC3KW5GukfOyAipMMv8Qz566SY Z9PVPfQa6IE0tdWq4yFXPxJQVRPd1HMAr4EiD5CqzxQGXqRNpxLcF8QQSiAZV4DuOfCXD9MOO4DrR+ID j0TGzaR0OmKrAgFIYeATKtMpY3HlL0ToX2PJA1CHq4 PO5iGYMQJy4+GVwckFQogQnpSPSXBaM6XGBnIObbNVXJUk3A ID Date Data Source [id number] 01/16/2020 01:09:59 AM EDT [facility] Name Value Range Interpretation Code Description Data Corrie rce(s) Supporting Document(s) ED Provider Note [facility] VWSGMd0bSuMBDnQw53/NFYewZTZen6VsOUpdFNr9UZztJZXjD1KcTXH5cF4cHXG8MKtURzYlPpXpMBLg lbm [file] x71nQUwZ01qF9eqSpIr57pjt0zR31Ts8XfOT9CQozjbaqp0opv5NzeS2qf/05i19X94NcOgoyqBK+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 Apprentice [file] HKCGHcjCAjRHSRr9PlijPdfLXXIBIvMIibERGLozEx nIvrPb5eJCMnCY5hMw0xQVPnAEG6IeG3FINDGG7CEASbJBJboDHnAIM3VMNrYpDrLAmtNBVxYtF3FA99 wDejDL0BYPWaASFhHW46NPZqFLAjYg7WVGMpWNSnvmP4PBZlOZXCIjUwQ18dbZSsNqGyGKJCOZw+Pg0K IC4vm4SkEJy4RpJoCL0oud7CBZdQOpQqC6AddSmkYE HFHI9svRTlMUC0XMvkzOCpESPmcYYou4kzyxesPt5mZLLvJI3nCj6eSQLtZON0KjD5CUTIZD8DSDSuUA RtlLQkHME2GAYpJpGeMWplHTYjJSL4BG42zTaqJO9CORPzDKUoLS29HCUaAKEzCx5EHLTuHXZipbN6DQ AwIFINCj4+WNbboeFaOmzUBpOgABCbt3VeFKn2NX2L TDTuTPkvOB6OYVMcgM3sHHnpSA5QYyA3ABVnILHQEuAmQ02xeTQaZJd2H3EhTjEnAUUuSmvuVTSyGNxd TmFtZXMgWyBdDQogID4+ID4+PPinCA4UAZtbmzXaFIRhPr0ZXSFhMGFlAM1gDKIzKMEbV8I3uCmgGQFJ IhTqU5mteepnKN2jGMTtD969pKtydkXeGULfJOYhNh 8VUZLaGKI1EZWagABbEZVyRJLVYMwaQR6NqTSnNGT5tA1fCEuyZXJsUQDbZ1zFJhApkUmbKA27yPesck VsbCBdDQo+Ez7DPZ8ac8JkUFm9rzZcPKcsBNY2TUktSABaAERuJBKtKHQ2WKO2HDCUNeRiJUNcZLKaJH ksZIZlFKXrln9XGPUoOJY2EYw6BAIoQWDuQIKbVXie AVPbESykEuIcIIGxWLFvOL1ZLdIvMQGbKLFfFTpbMVPqQTOwwd8ZRKTlUNFtYjF9KjEbJXLqXERkAPbd CJWxXXBoKaZdZGEpMWTiCW1FCcIwRWBuFVH9CjXiBKQbASMokz0TWAIdRSWuJpGcNeOlOOQiQUDwBXtk PGXuDAN0YRNeSFWuORGkUT7VQaRpGXMgZTldLNWlNK DkOJLeme7WYJWdVYAcOqA0OuLiDOWiKCFzVEooSNEuJOLmDRJ1GZClIOJnPJ9JBkWqWIElGUG6VNnsQD AsNXEgpj9LQIXtLHIhAZxcARTmIFDdABIsCNhqCJOiYYQ0HiFnGTCaVUUeWU5HNoGhOVOvVAy9VacdRG YvGQJovn0ZDWEhGGDoRAjiMJZoPFKeWDXaCXrqTJMk MXJnXKK2TKShSJWkIA9PNcUdSQSzMfSpRPNsNDClYSIbdd3URTTmIASiAfA0GvVuYIRlZZBiJGqaOZOr MLZ0DBOkOUJqJGSrIJ5SLcQxIEJjRzNeUKnaEIBbFOPupp5KUEMyGVPoHPe9HtZjJPCrNMLwVQmaFDDk KFA7RBo1SESfZJDxOJ4UAdPsUCAyAsp0KSnkGLYyFF Mkns8NYZTlHWWzVQC4EGNsQIRsKEYcRWuoJEAdDWYsMqK5CBTrHMBaOE8EEiTtVQTjLQW4HbDeJMCkVB Ggpz3UUHCuXIL5IiJ2OIZaTUPlUPKqSBymPQUuGWNeAGX5HVYuWCRiUC6BHnFmVKPoOAT0QetnBGSmBA Lhue2HNSJpLNF4SRKnCIMfTTPeSNZuUNjmWKHdCMZ4 RKP2ALMlGCAqQO4IVnCgEVVgCXL1BjBvCTHuYXAmdr4ESXEcMVF8TKs8UHFbVTJdSLXcIUquZKTiMCT9 GEZ4ROSxZEZzDP3ZObNgRSYqYpV0EzRlNPNqQXOsgz1DHCMzEUB7FbO6IrTeXZCzIQWxKFjqMHOfJDG6 EWksICPdXOQjKT2ZRlTbFKLgKyjiHyWzLJRfAPMsnx 4JGDTdDIB4CzN0UTVoYRGfNMMzOBbzLSObFAD3JED7VDKaKSFiOQ1JBiKhLYEhHgzfAZHgQKKyDEAkki 5UZOUxYXN6FNK1SiIpECChLRPvVIrcOUHcUIz3QBX6WIJvFADtLD8LPrSyDCHrEHQuUgYcAXIrAPUfqx 2WDKRdRUY7UKK8HkDqTGAsLZIxWHneEXQnSAwyWadp HODeALJiGH9VKpBnPDEpUQN7BvwuPQTaOZMyzi7BXDWsCJM8HHJ6VNZhLLMxXYGjXRwxZDOoQSciNgdu AVOoFUBxMS3XPuWqIJXvHOY4HePtHJIsHOKncw4SIWLbRZY4AcRkVqGgQOCiQPTuSJqdFOGtKIuxSnD4 HTEuDGVzQK2MMtQsCQBhVWK1AIecVXXcABDulw6MGZ ExERJ7LcM8DZEyFQWlLBQeCEhgPRLlUYybViD4XOYvMWYwAL2POfRgPWSuSFP7YUUtVYXpGOTkaq4JKX ExIDR6IUZxDPQgGRGxXISlGQbkDNQqBQd7DcW9JGVqYOKhCT6DYmPhJOAcUUX3PIPyDBEiUBEuha8TBI PsPNV5YSO7ENFxCPYnGUCoIUgkCYRuLPh4XVI2LYIm REXhDM4LMqEmBXybHVERNrg2OLmoC9d8WKH8ST6HG6Ich9XwErZkFOIEQZbtGE4uslCeERJfYm9CM2bP HnsoQnL7VCPrGYm9VTZ9HTkaK9RdT5M1JEl5R3U0KpTqQY9gDUXkQCV4SdNmZyR9WqN7LQNtEMWsCwt0 OFIeBvw0HoF3ZpGbML4HEg2MTkK3USQ2mAWeDm8DRTFpXtBSQfYnJA5SRMn= ID Date Data Source [id number] 01/14/2020 08:03:12 PM EDT [facility] Name Value Range Interpretation Code Description Data Corrie rce(s) Supporting Document(s) Discharge Summary [facility] TQEZNs2zWfYZSvDz74/IXUniHLRqm6SeVHcvIAb4PCxnRBXhT7QmYHF9fY1bCFA8KAdEJaJtIyViWBC1 lbm [file] HuuChNbAWfVKn5Tz/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 mud analysis/NhpLOt+UVR708UEAwbhBp [file] ICAgICAgICAgICAgICAgICAgICAgICAgICAgICAgICAgICAgICAgICAgICAgICAgICAgICAgICAgICAg ICAgICAgICAgICAgICAgICAgICAgICAgICANCiAgICAgICAgICAgICAgICAgICAgICAgICAgICAgICAg ICAgICAgICAgICAgICAgICAgICAgICAgICAgICAgIC AgICAgICAgICAgICAgICAgICAgICAgICAgICAgICAgICAgICANCiAgICAgICAgICAgICAgICAgICAgIC AgICAgICAgICAgICAgICAgICAgICAgICAgICAgICAgICAgICAgICAgICAgICAgICAgICAgICAgICAgIC AgICAgICAgICAgICAgICAgICANCiAgICAgICAgICAg ICAgICAgICAgICAgICAgICAgICAgICAgICAgICAgICAgICAgICAgICAgICAgICAgICAgICAgICAgICAg ICAgICAgICAgICAgICAgICAgICAgICAgICAgICANCiAgICAgICAgICAgICAgICAgICAgICAgICAgICAg ICAgICAgICAgICAgICAgICAgICAgICAgICAgICAgIC AgICAgICAgICAgICAgICAgICAgICAgICAgICAgICAgICAgICAgICANCiAgICAgICAgICAgICAgICAgIC AgICAgICAgICAgICAgICAgICAgICAgICAgICAgICAgICAgICAgICAgICAgICAgICAgICAgICAgICAgIC AgICAgICAgICAgICAgICAgICAgICANCiAgICAgICAg ICAgICAgICAgICAgICAgICAgICAgICAgICAgICAgICAgICAgICAgICAgICAgICAgICAgICAgICAgICAg ICAgICAgICAgICAgICAgICAgICAgICAgICAgICAgICANCiAgICAgICAgICAgICAgICAgICAgICAgICAg ICAgICAgICAgICAgICAgICAgICAgICAgICAgICAgIC AgICAgICAgICAgICAgICAgICAgICAgICAgICAgICAgICAgICAgICAgICANCiAgICAgICAgICAgICAgIC AgICAgICAgICAgICAgICAgICAgICAgICAgICAgICAgICAgICAgICAgICAgICAgICAgICAgICAgICAgIC AgICAgICAgICAgICAgICAgICAgICAgICANCiAgICAg ICAgICAgICAgICAgICAgICAgICAgICAgICAgICAgICAgICAgICAgICAgICAgICAgICAgICAgICAgICAg ICAgICAgICAgICAgICAgICAgICAgICAgICAgICAgICAgICANCjw/zEJbP9tcqIWrdrJ0C1luTw7UIe0U XT3be0SlPSNuSEzkrsRqLydWKyBjNPGxUlwJKps2RG svTK3DyVByT4TvW7GwULyzYA6AMDZlWOOtyMIkTKOcWBWtLcJ6TPYcVAaqVU5QvKTrWEbcMFYzVJRjSn WzAFUeNMOjKZUzEWXpGXPFBIIzUAGoJxKbWYkzYN0Gw2WcnVT4ERs+Jl2YHA4ay8XnOUnoAJWpXY3lpc 0URAiNChApY4JwvmN5EZLrDWReVw8EVIIzKGLgpDJx MCRrVSNHMlLoW2GqiF48QCZTYx7+VTnjneNmRkyRSaXhLOWaz4SeCMp9RL5ULJWwXKc9tARpEIrnQ8hf govrEVO2nO3ghcjqHcxgZmfuEGDDc7kxVtwhACGmWMFdYB0aBG9nZTJaZRO6YoPeASRXJC1UTLDkOBKb gFScYXPlRCTLBY1VUFyhHKB9XKBquvAsmCKoNPjbAJ 9QYXJlbnQgMzAgMCBSDQo+Cx8ZCK9lz2MrXMnfZrHuIN8tpq9VFQmAMaIaJ8Y2hYWoF6M0HLliHb1PTE RmMIVnOiieTLSHZTpwNY4FUU5ssmT5RB8SaVYvIWRvAXNonVMkTXo8I92jhTQoRUvoPL7HUNF+Sadie+Pg 4BWKNcVZUjJDJhZcPsGNOTIxUsE3CpK3HTk4LrI4En PB43tSazliUjCCjvPW8DUT1qFKQlWIIUPD6CoIBhbD3nlzOiUFAlTLBTFcUqL53kpJApAYCtHVR4KLSh Ci6EDBJxB2KrfzLpoYcrjvQsQRMsDYKJXT7MEEhuolEowBVpiOmkDU96cObjXX8WOo6JPhTdUA2sgl1I cAYhGg9DKRIcUm7NHWTlPFBkTIOaQBU9AVAwDhQzLF uxNJOpLHJiONS8ZZZdSBCzDG3EOoDrMGQfYdC5LwQfZUIzXEEeok8TOFTqUSZaUpA8ZZWxPWMsHXZqAZ gzJJNjWKSrDDP4BZFgWDXgWR9SBuNvMVMuVBC4ARJrADTzTLSfrl9JHUGaBRJkYDI5EDKpIQYvVLBkLR ytIUTiCPP1UsRjSFClHISjSD8MZtNoYGYxQJq8KkIx WQVoTQEblm0LLILoFDReDXQ0NvRuRPHzPBDgKHeiQWBjWNAmGNu4TDHtCNOjLV3PXvWlTOVcRXP8SjQb CANxCGOmrh9NYZJbGUWpSUI0HHLtMXLoMFAlUNrvPIMiHOX4KSfnRPClDYPhXD3KFiZfAZHmZHWkDTNc VIZtQEXipo6JCDMjZEAlWdI5UdHvVSLfXQHjDFxcPB YzKIS1TUTlKDMzTZZdEA3AAvUyRKVbVXH1HqNfMFDcYLEoiy9YOUIaJIChCgF4QSEbCVLoKRIhRGenRZ NwLGP7NEr6QOZvREZjJT5LKsIgSVPeWTpnNuMtEXJhWZZsmo8YBOFgRTEuHNWpTAMsAVLvMTGoIBpuMG WrWZC5FkXsUSPuHHJgVI8KIkLoWTGiAPa8YCLaOKYg NBWaky2ARWBvYIKmKKjxQPWwIBClZHBnQWdpKUXbZBMxJQB1JKXxKTVjOH3NFsVdWGGqUyUeSvhqNBAo PFUsfx2LDYJoSGRmPPZ3GdQmUVDhWMSmSNivTINpZBLpJcTkQXXjOPLtZY4SZfGiHZYyBdIlKphmKVIb BKXwgc1XRJMnGUJzZtC1ZhXjBEPhCKLfSVphVVCyJD InPgB9MVYcTIYfEC3AUcDwMNIjQfJ3PXAhVMEtOHRqws9ByVSexIknoh8XZFwDUy0BlBnjINJqEZkuKv 5nyMCsQqDgIRTUUo8YalHqHLGfXZQSEPymTYLrAIbtOnH3BIDgEsI1WXYeZvJ2MUW1UPQpS0C5JpTsVg N9GnI0USKnOuQuGlNaACS4A4ZzJKXyLkJ5NAZ2AdMc HSN5Naf+GI9sVQr+Az4Kh9KjlvV6dhAhOPolLFG8Om5HROUVT3MJOy== ID Date Data Source [id number] 01/14/2020 04:27:39 AM EDT [facility] Name Value Range Interpretation Code Description Data Corrie e(s) Supporting Document(s) Leukocytes [#/volume] in Blood by Automated count 5.4 10*3/uL 4-10 [facility] Erythrocytes [#/volume] in Blood by Automated count 4.39 10*6/uL 4.1- 5.3 [facility] Hemoglobin [Mass/volume] in Blood 12.1 g/dL 11.5-15.5 [facility] Hematocrit [Volume Fraction] of Blood by Automated count 37.4 % 3 6-45 [facility] Erythrocyte mean corpuscular volume [Entitic volume] by Auto mated count 85.2 fL 80-96 [facility] Erythrocyte mean corpuscular hemoglobin [Entitic mass] by Automated count 27.5 pg 27-33 [facility] Erythrocyte mean corpuscular hemoglobin concentration [Mass/volume] by Autom[facility] 32.3 g/dL [facility].0[facility] distribution width [Ratio] by Automated count 14.9 % 11.5-14.5 H [facility] Platelets [#/volume] in Blood by Automated count 180 10*3/uL 150-400 [facility] Differential cell count method - Blood [facility] Neutrophils/100 leukocytes in Blood by Automated count 58 % [facility] Lymphocytes/100 leukocytes in Blood by Automated count 31 % [facility] Monocytes/100 leukocytes in Blood by Automated count 8 % [facility] Eosinophils/100 leukocytes in Blood by Automated count 2 % [facility] Basophils/100 leukocytes in Blood by Automated count 1 % [facility] Neutrophils [#/volume] in Blood by Automated count 3.19 10*3/uL 1.8-7 .0 [facility] Lymphocytes [#/volume] in Blood by Automated count 1.66 10*3/uL 1.2-4 .0 [facility] Monocytes [#/volume] in Blood by Automated count 0.44 10*3/uL 0-0.8 [facility] Eosinophils [#/volume] in Blood by Automated count 0.13 10*3/uL 0-0.5 [facility] Basophils [#/volume] in Blood by Automated count 0.03 10*3/uL 0-0.2 [facility] Nucleated erythrocytes/100 leukocytes [Ratio] in Blood by Automated count 0 /100{WBCs} 0-0 [facility] ID Date Data Source [id number] 01/14/2020 04:47:09 AM T [facility] Name Value Range Interpretation Code Description Data Corrie rce(s) Supporting Document(s) Bicarbonate [Moles/volume] in Serum 22 mmol/L 22-29 [facility] Chloride [Moles/volume] in Serum or Plasma 105 mmol/L 98-107 [facility] Creatinine [Mass/volume] in Serum or Plasma 0.59 mg/dL 0.50-0.90 [facility] Glucose [Mass/volume] in Serum or Plasma 90 mg/dL 70-140 [facility] Potassium [Moles/volume] in Serum or Plasma 3.7 mmol/L 3.4-5.1 [facility] Sodium [Moles/volume] in Serum or Plasma 138 mmol/L 136-145 [facility] Urea nitrogen [Mass/volume] in Serum or Plasma 5 mg/dL 6-20 L [facility] Anion gap 3 in Serum or Plasma 11 mmol/L 8-15 [facility] Osmolality of Serum or Plasma by calculation 283 mosm/kg 275-300 [facility] Creatinine/Urea nitrogen [Mass Ratio] in Serum or Plasma 8 [facility] Calcium [Mass/volume] in Serum or Plasma 8.3 mg/dL 8.6-10.0 L [facility] Glomerular filtration rate/1.73 sq M pre dicted among non-blacks [Volume Rate/Area] in Serum or Plasma by Creatinine-based formula (MDRD) >6 0 [facility] Glomerular filtration rate/1.73 sq M pre dicted among blacks [Volume Rate/Area] in Serum or Plasma by Creatinine-based formula (MDRD) >60 [facility] ID Date Data Source [id number] 01/13/2020 09:34:16 AM EDT [facility] Name Value Range Interpretation Code Description Data Corrie rce(s) Supporting Document(s) Consultation [facility] PACCCx6uGoDCGwZb45/ZXGwgWMVnh0YzPDouZSn6WGyfOWIqA4EwHNL0aS3zUOG8AMdYDmKsImNeRXM8 m [file] ICAgICAgICAgICAgICAgICAgICAgICAgICAgICAgIC AgICAgICAgICAgICAgICAgICAgICAgICAgICAgICAgICAgICAgICAgICAgICAgICAgICAgICAgICAgIC EkCKHiXN5CTILjMLCgVOJkGMDtWCWiUGBxQVWaXSCbEMAvMOYoSGRpOFRmDNGsXWSzIVGnTQCnAFUfBV AgICAgICAgICAgICAgICAgICAgICAgICAgICAgICAg QUYdSDUyFXNtGHBoXHWjMI9OJEIoVIRgKLKsKPQjVIXoFMSdYDNhIULjJWDqDCJaEKPiFJAjOXZcLBVw MRMaEGVeWIXrCJXgERXdBYDwNENuPUMfROTwGEQdHDVhIHIfHGLoIDOdNHPsHABvLIWsENJhUDFqXD3F ICAgICAgICAgICAgICAgICAgICAgICAgICAgICAgIC AgICAgICAgICAgICAgICAgICAgICAgICAgICAgICAgICAgICAgICAgICAgICAgICAgICAgICAgICAgIC SiIKFfXIOuIE6OKHJaGVGtKOSxIHVfIZDtMEPcMKEvRKVtKTUkXRFaRGUsTGXeYUHfERGvOHRaMACjLO AgICAgICAgICAgICAgICAgICAgICAgICAgICAgICAg XBOjMFUkLAAwGZTqASDxYKJyGO0PSNKeQKPqTQVxOCVeMDTxQRCaPSTfZWWrYEVbRFPkSPLvPVCnBVZx ICAgICAgICAgICAgICAgICAgICAgICAgICAgICAgICAgICAgICAgICAgICAgICAgICAgICAgICAgICAg QB9EWWAkCFQzZCZrDJZvGXJdJJCjBXUbHDTrGKQaTG AgICAgICAgICAgICAgICAgICAgICAgICAgICAgICAgICAgICAgICAgICAgICAgICAgICAgICAgICAgIC QuKSIpJYWwEQRfBI4IYTMvVGBuWXJdATFdNHTaYUXoPNFfGKRtZVWeQRPbVWElPZHpLHTyCAUrKUGfOM AgICAgICAgICAgICAgICAgICAgICAgICAgICAgICAg PEWbKARmMKQnBWYpKJFlRGSqOJDnSY7KOZOiXDWuEHBnEEQiOKMcPETxTNSqZVMvONQeIQTcDVSnFHMu ICAgICAgICAgICAgICAgICAgICAgICAgICAgICAgICAgICAgICAgICAgICAgICAgICAgICAgICAgICAg FBVhLS8XMZAjJOQrLLYjKXXhYLJiZPSqCGXfSSGcGK AgICAgICAgICAgICAgICAgICAgICAgICAgICAgICAgICAgICAgICAgICAgICAgICAgICAgICAgICAgIC ZwFJGoDKFxOIWdYYCgCM6JWF63rHTzt8E1ICDnMK3lyjr/Hp1BBMiuyhGksIBgGM0QEzOlIJ2iid1GBk IsJZ0aoq2RPMwIIqHzN2N3vRDqHSDsPKNAOeKxB57w ZQouTz98FFjrUNZrGjEkIAr5Lw6ZYhWsW5teUXYaBgZ7AQCgTuR5XPThWyJjJWihUB7Qf6RcqCBaPIv+ Mt0YFA1dm0JeLJofCcTmQQ1oki5FCRfTFqGdB5NzkgJ7TRBwEORqKp1YSLTuOERlrIQuKyGqIYTGMrQf Q5RqrS35NEHXWl2+XQnqjvRmVctYSeNnGJVru6KzGI c3EA0STNJzTOv9zBDxK40wd1DohFRsQiddHpHwnFQjgdqkMQVIRSLgtX2jlT3tLLAQeOFsmFWuAQHaMI 9cKP5cBRZhGFM0AqSxRIGJYS3GFGVgWZCmcSXcTTQhMSJUDB0OYUsbZDP6GZFtjfQskGGfYQjoRD3GPX JlbnQgMjIgMCBSDQo+Iv6XCB9bb9LlCJxaWXMtSG9d kc4ZAXsRGkNtZ0U7yMDxF9N3XGdhYr5NRIWiNARmPuNoMTRTZFgrWT8XMI9dkcO4PW8FlCZpYYIeBTDx lHNvWUr6K16duOHcLTyxFE9ERPP+Sadie+Gu9WBFQiJHBrGLRyLhEpBMSRYiPmM9LwT7UKz8BtI6RpIK18 cDierhQeMWwsHW5GGP2oJDCyFGCQFY4WeYGzoN8zsi NpChElHNCGGoUyL73vyIVhEABeANEtLOZyZw9TIHVaQ2WaneBixYbjxyUpLPIjDYXOQB9SIAzbkxNrlI JxqDpfVJ00vKfgBX1XYl2MDyXoAV9lhe4TuNAsFn8NFAYhFP0WTYZbPDIqHCJoTBU3DNBsPpTcEFvyJF RkZYNjMKB9DYFnYWFtUV2IKgBrDKAgEKNcNmJgSGKt EZEnig3IAGNbXGKzUoN4ZwFaFXHiUJPlRVqiNIUuEBKtXJY5VKBlXOOgIM6VJoQbTRWvJII2ZPOxEMEb ECHjuw8HWBQeUJWwSbq2RUAiDPQnYJHbMTvqAAGhMYK6JoD2GUKpRXXtTL2BXkMxHIJrOBV9TmCpCBYm SBGmhg7QXAAvMMVlIXz5AHDxTQYaDOYbSOsxFPMmCD Z0EKr9WMSuYWPtYH8THvXmXVZlJEGvHoasWIGzVGKetk3XCNAtFKCgJtAwTyFdVUKyZJBhZRljYKHvRJ N8SDS0AKBsXJDmOQ3EVcExFYAtDFj0MMihVMFkKWAbiv5NPBLxABNpNGU5QlOfTYAwQORlPKteZAFsFE G1Gyc1APGfBKZmCK9DNoTxCOAhPPe6OkIuGIGjMUXv ru9XIEKvSGDsNWqqPsFbVZUjXXUgUBlsLEUnIBYmEZTdKLOjTLCdDS1KKjHeSRKxZBPaACTlJFUgNGYg mi6MSUAlTGGyNOc9SjZqOAAlZUGaHOmpCNPyBMWpQPiuAFMkQAWcYA6TTuBxOQOfUJHoWrIzTJOlQXUx ll1ZKDWsDXUeQpGwEkQhOILrECIcNIr7emFngHYvSF g7SB9KA6XkcuDgRaSHZz8Yi539QVY2ZYYbUb2SM6knIv0jRRXaVUETNq3DYTa8LYwzMGR0GMMpZ6CpAA GhZMKmYPw3GBK3T5YgDyX5DWE+OMecA7KxZUT5JeSwJfAnNeV5DJNtABckVys5RCJ9SQZ4Vd7iYTHJNe 4+MPwinOXkrFobUWQIFfKnDyVaHXxfJNNGQr2F ID Date Data Source [id number] 01/13/2020 08:13:48 AM EDT [facility] Name Value Range Interpretation Code Description Data Corrie rce(s) Supporting Document(s) [facility] NKHWSy9uDwHVRnTpf0NxViLlEDXgZG1dicp9F6G4mONuI5VckBGne6pbK3RgF2CvNGHkCWIYAJ1XiLAp jb2 [file] sj+HOSJW1GYQLcL+WdtWEZZ5CWWGdpLHfOAaNyiOZU f1f1RD9ZbqzOdP1XF996g7Q6N024ZJtGOg/YEcZB7liJcXQ00cJpnJlFdUacvOX1voDJmkBaMRYFsELI 9738PNYoAkSssLAOAfijTP9zkXGLSfzp1DzgId38C46yDn14Nh4CecaIzgZ0GYUzqkK+lisXnVY+lr3O 1DJvX/8QqNhPajw7K5dhpI70JTS6Ipb+gky4oP43N1 l2MhiNp++chjfai9k83kWUDomj+VcbcbhzoNc1NAhqwfud5RgEjzyyXc/TAHk6qFnNYbDKB/gL1tm+fY N1ti/7viCSfLMy7DzQubpoPh/LVb96+Xe5WRVvE3mDM+vVh1AZ0hdWHZ2S4WHheqR67KWlIKsAtBgqf4 i8LIodsGqootCVJmavjiwB5vKbZ0k5urjMBAPjOhFS jzADzUPXlknbcmIM6eRzqPTGVDFGpdYrKDVskTtuSnJHRsVURlRcLV0JAqm6DluXEw7BrGQMA3NujVGZ hKqmsHHqQTqvTHCJ2JKSOaDcODMA5OEODtNrYIPU0TAEDkYmmNTtiu1B7jClBjpFaq2c5XjCtRBZXD3Y hHuHXXu23yMprZnK9O+dzpRgFxslcoHiv8VlGuXanE iJk7A/YUxxwtpPAfhGPveQOulNQreIBfv0zRyGZc+MJt+Nk+/YwFegxR6g2Oc6ZD+8jBIbPAiPPbK1PG rnNMu8Gz+oSz3V4YZJ+fulhma1iKu3PFfCrY/eAJUROXXk3PVQj+Af2AX/uIXQEP6iNJQiJ0NGIiKDly NFNgmiusf1ZBRyMXCCv0LpzQxCbLmLqGKOxBJRvJV4 oID3ek0SFZOvFVxYcX9QPgZjVAdDeT727pi4EC4NkRRN6aGgC9XPzEDT7fJCY/Xd6rFMw/IIJINkkEwS 9AeVj+AVYLLGOEDj59xxKTd2R8pV58jHlwZ9eQiEKvE79zcfC0tRUPabXLngwal1mJ68eamdLEDHCQTI fSVdGMLsZIUXcGid5kYRsC81UBbiqnMCDDcNyjB4NC Y+quRycBKZuuMIPIAQtvMy1TA8BGN9jg4+3tsyNxrCQ1ZMQtBK9sRSXvz5ydW2VkbVvpMUyofR67hf7R OpNtfZH+L7rpoKH7hm9ia74qRCN1tkI1i7qa3rSyN05NhzIW+sqnMpE7aCc6iMf6Zvi11sjtiW/2DlY1 ocOJz9oNh78GHO6b/L/Ojl12q7HENmHAn+gp8dynPm aG+lnFwEmi3Axgclg5WntBv0ZLjjvjjN92pVCrPAgZTgCw4ri/W87Snu8GH4wyczXVSxX4faCSp+loqH miilC6IS2COEOY3yLj5PVaXTlHd3hlHrD3spB278SYVGvOzFwsGeGeN/SD+dnb1TcN3RVoiGT1obuxWm ppBg1NQni1io+AgkTuIknaSTBEmQDJJBMkkmyLwuCi KFVoDOckGKwCbOpBXoAGCeIXhFEVcN9gKTZzO2qUWLdM8sbXChu9sY6casYkXeUR554gOk4JM8ESMmJD UabMGP0gjIXWfUrQFKCCjW12NRnqpQ3xS8MTpBPMk5wXkOJ2khsDW6ljhj60nlrnmUi5Mr4poeKeGyRS O7W3mYQq5ThgKgiOBmLkX2v+kmO7JAFvx5JJa+ROf+ ROf+ROf+ROf+ROf+ROf+ROf+ROf+BSc6kvC/YxFcLIhy17EOkwclqKGYhoaLxkY+4iOQCImQKImSNJJG ZoNO3bTI6k/71OscSwlBEiSDhDao/J6dGOCmmpo6WY8pWHExUWqBCNiLyJeYghhYsWA1ctKGYssIoUZ2 ysHQNxa6lbJ1kuJGLnv61bqyJ0npXSNSKuWC1fLG1j e1WXRGMrqNG5CGpdzCmicpVVECZeU6ENv/9Vvs5S68gua5419j948GcOyhsvSj6mo88jtnd080SFr2oL 7zu2TiI6vms/Db9VPn6pROBLgOlxoRyzrEkPbem1E+nwr6tThgzFTg07T7neLXlEI660I78SCnfdRrbJ O202cX8rv3BbqXsF4u4PK25y/gJ1Y+rxePSo1JPNiL qm6Jd8XYBT9n6iX8OyvFAnocMx9DjM5dsJ8fciEOJWpCUBVQme1qmE+Y7A8m+4PJ/lSzH7akQwo4mZj+ cbJPnOwTJ/cLuB0fyx+c7BMn+0SuO1c+nl1fB1vvT8N9rESEX9rp5SakiJESEQ4b0YA1PpIRMlBuB3ZU 8RrBmbDplaOmcwyPjyOfGSAHJwcRQhe7hdjeanc76s VhpIn93cXvrGamW7f+zEvajjbe7tyACgcCf/u7Lz+9hhXyg7r68w/e/bax0V4e1l76y1/eB42rwfgrAp vcndbux5qikwiXx//Pu3/83Lz5hgQ5RO/01GFNynZCUrRYCAoVx6g5/Oy797/52dq8+JHkC4s35wtAH8 aF5/Pf/qqjl0t14L+++/Tu0/u3X7//+fXY34897rbz Pvzu/hcmTgc4p14a3oqc7y9fMx67702eyay/6gM7d29a5s/u3a9+Ezjkm44u+NlvuytWhjtY3/Xhm99+ 9/bp3Ve//Ike0t98+sO7v/HZ+yV8f/jgf0619+2nt4+//vJ9p8p8d875u6/b3u6q1d6LO57+fPvwzS/e wvqh89v//pevPnx6//Xbt9+8vbRfvv/Ftx/km78MC5 F//fu/8Q1SJf/m22+++770em984xIUk1/e/ofi569/vfvym28//ixuc54V/+kfrhhe+bjyU2/vv/qvf+ Fgh9Aqm+yff/n+s9mmey71d428kO4Ar/4p1Tl0T9s8+wv+myxbkPA3I/1Wxe9QoK/mn377/okYK1964i 0EO2f02yl02/zX96/yv/59+KJb5KlyTz6n/Xf3XR/r /Or9u6+/++zdJ6MsJtx//+nf//CXH3/4t7f/9n/efveHP/7x+7/85Yfv//gPb19//6c//RMVx4Os/Ovf v/35T2/z5zp+vn7m+PWfV6Il0201jl23Gre1In3/+OPP/8qvnUMOluuFf/jwdGz7AT/crl/+z6JfhJvI +Y/OSbtwSomlvf4v/UuWw50e+Y9nfDGVrj96Pzz093 pxTkm57t18/JGli7pT83vOZ24u8225nnLtS530+C2WA974UVhaX871NFrj/Xoc9vAu/uk6Hn+ayJe/4Y 2SaO1M1rNAvbn56I4++NN//OPbX77/jx8+u/5nQm0TUWkbM/3415/roSSy2aW3v/ibj29/+NN//PCX// Wnfn5dkoyz96bsWcaf68/cfbN/+vjd27/9z9dv/8Of //DH011vpn+5ol7wCc/06ef/9On34K/4vSO0y8+ug8XictGXQDym2QJ6hL1/2Bhug38dq4Zw/qrNfvOz jz/79Pb9//7hr/+52ZyHOn/16cmkliwZOQo7hLk2/p+/lIYzkc4fplEXi9//8bMnPD/jX33/P3///V// 0G8fxqFRnhy+/vAT+Fjp45///MQYm2m37o08SUztU9 /+/GyrmD2DJ/xlaL1FL/z+f/zpD79//MAr9t476j12l+8+/Prbb95/+slfrDQi+Rd//M1X8ry3X/72q2 F9//JRVgm//fWv33/y1tvn6Pwsn+///XS4IHmmikcj55h/1344m0u///wiL2qi8ro4e0u805/+Qcbb+6 8/lSY16JOj+Fb02aGZ5w9+5feq928PXIf639XO4/72 z0db04YlsLm6LsOb/vjb1KmoIyKrNTA0ggFseQxhpyIoUynQDUvnBGQzCuh0XH0YuTXaVLZaC7A7TESt qw8fKTHaLWFcuLWfVcQyXBMJCZ8XuDMtFE7MTQq9AXFuXCVpZcTsPTAbidY2MOUvMJLrFXMjZ5LyktAf dCAyIDAgUj4+UH8wj5NfTwLbVLSfYqk7KI0TrYCuFZ 1CtKKsmR7ygbQqE826cqAlSFVzOomvf7PiYTkoMYLTMK4RZVY2ARU6OXHxEv6+PT2pw0LuGuCkROIcQp k5RT2YpSCcg6FmMI5WR4FmGBKbEGUQUMT9p0PsKESflpdqwwmnH2DoYDG8pI6iWJB4VBWjTLzlZWSsBQ yeMBH1BVLmHHgmBLOoDTLfIDRuPGBnNJo3hNOsET1T F9JhRPCjCPUSQHGwrwWuXd4oSSVSSfIHGnhwE2EMIAZcGch4QWVbFHwmT2Q3IhkhS9BnIU7VZ4PpWTBp QPSNQPHmimYeAP9KpqGihF0kSTzUJYOJJVsGUMfvZzU1n01hbtRFZRUjYZXuVTqtHVEmBFBuDXWzMIKt QDHbJZUoQHAbEY5EH8UqBXTnIBTCDDC2f9DjHPJqwt zztqszHa7nvjBeXui+SxfvGGEwp3TcERfjW2K3dOWrK0MeR8LeXB0QjIKqDCzvQHNkNSTqSAAgK323cb QgMT4+BO3xm6DoZbypDDXNNDBbXAQiUCMoIFQ1ItQtYKIuFXZlZFPuLeK0VwOvYjQCZCNuMHM2ASRgEE LeDCZxWNGbVSjaYOYdXMO1HkleKYCvDCXwQT4aNiEb KGJmBxAiKJXvEVVuYLZbzmHUMFVbBXPbHLBmHWF5FKVcXZGqLZeqNEIyPRVkUCQ4HLSuBQFaHS0sLpQc XBPaLFXeJwvxQJVoJPDozoUAWAOjMPOqXLF1YbPnFVLoSRPfJLeaKMBaWFYqGvh1BSZrSGCnXN9iXmQx UEYjPKW7VAfcGLTgWACrhkGEWUPbMTNnOARlUtJgMG UzKPGzWZynWEOeEUPfUnDdCWVnXCKfUR2nKxCmUIYiBIC0HERyKWKuPGDzgsIGNPVxYCWkIRa3BQMgZU WgCKXzYHllLNQiGDBmUTB9ISLzSTAhXF4vWsCoRNSrXBZkJTAfRHCvUMCjysEKETZjOZCpMQA6NZXjSX ZiKEDcRNakTHKxOGKrDgl0QBHsOYKkOE6gKkFuZCRw USD2QTYmUZToKBZrpjTZFPKkRCN4BPW8QMCaZZRxTHAxOApoQGHgYUEvIqO6EJJpKCQsOW5lZbOaXCAj VLS0RoJcYHAqEPIdyyOQTPQoIHStXYU8SaUcTATyVJFaYOliWTHpYFWxPOOwTRN0NTD7RIMrNxWjZQqs DEBPJZwSD3QqgmMuVySJM1qvYy1dGrTsQCBKP4Sjo6 QgNSAwIFIKCj4+FrR4TYI1kBBbAat1GPM4NHeoQXECBt== ID Date Data Source [id number] 01/13/2020 08:13:27 AM EDT [facility] Name Value Range Interpretation Code Description Data Corrie rce(s) Supporting Document(s) [facility] MDWBJw4qZdUOOyRaz3LyEdTwIZMtBH1qntn7X8O0vGJxZ5CdlGCcv0tzQ8EgB3PqKHZoZONTXA4SbVFh jb2 [file] rF+iT7NGu59wDkpRw85/WgLNRXHpX1xOp3dnjchc15tnkS/p4CmZ/d7QlaMY3/Anca/j+xtHgqTOOCX/j o+do8jc++v5of+Qa2WXyN7ESYh4nIxwCtd/69SVgk3 pBUj827p12n2cHM4w8+wGpkCq1m1/pLT0ioLqXlzDFOVErz4Bm+9A1Mh3A4CdqK5PA02H7WymNX6z2sQ 80+BHjTe0jqn10a2HWm5N361NF19md00jvv8oqH3H10fJaghYK7ZD8+CusX+yXq29il5aT4sxeHR0AQ5 zq4Fs94vvkLga4t3JqaF03eGjMN75xaP/zxXcu7eMC r9b4r07LAW3f9h7kxokg8bRTvcZ5ysPH4RycdB/+qY98dvzgG13QlL2TS7zzEBiHmmcfyR60f3vu/SPr d7/M+kR67B+fgvu88r0Zg00qOUgA1jq4+oeA85fJ642H69+G6W3KHLQuh72AOJOf3Yy9Bzq9fvcOlj9X wDf3m3jsj4z5oce/ZLKQvvD+Ke99zwTC/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/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 ec2B/U22hPJgR3of5H99Fj1R/agL6xP/z6HqvJM4cf/lcleCd2SOlD3N2Sj+8b+3IktJJGdyma7RvWwv QxC4tGF32Pai72WThpkyoUFagv4KWVZ33uovq+hppV2L8GGe9tWvAY4O+Fn6f9gQ11biqcs6bVD2q9qK uLJ109t2+roUJGKriD0UhT9ANQNyXV7jb/In2i/Qvt X3h/4/8oC9mxfQD6Dz4j/fINc/hnh3/G+pU5fl/T66d8V9D1hQT/0PzGC+tgbw0SBgK+94/OEdunf/pG OvzzhH+eDenoz/Ou59i8+6035c0h/DPcOUt27oky/5UnINdpI2YwFa1etr/NifT7/YZh/crmXc+xCX2x fmUL/mrd/D6tRakpJyf+Qthfcih1y56CmtP4zNX3EF d9w2J/1QYHCjhwq2G1h33X47/8a1i/GmDkT9805uduF1N63cWJ/uEba8NkY3id/Xlj/I6H122upSf+FW N/33jQNvTdjnTH+/NGw5UfvkWY2daL3h/d241/kz9lpco1lGg2n/pJyQ919Vjs0/K1WL7hMPZ6ouPL+l 9f4Bv7pUzR8Dy+0T3b9zG2l2asmV62coz+tHrWgj6s Z4cdjnpMzmquvl599PGW6mqaxMyIgSQzP6Ck2f+/ty9j1J61XFRe/9FVRvS7v4j0OK0a+RsfRexzjsBO c6BWv9k4X0J2Z9n55rtu+Yjyv/PWQvibT71/5cdvJCc+UjEPYba578QcDMw9+6PPs+QyAhu9KP5P391p K21t0S5/8Dm/WBO94ZDIm4hgv3/caepCPVgP5mUw36 n0y68c/FoLb0dr44IIumCc+isf1z/80BqmHFodE7DC3shCKvn5/dnHPb/g+Y3UiiOorV2ROzS+98t8XP 2vNwW34lsOn17GyXO61zyIZj+45iYHcnb98DDgkMAmzZ0d/+wiCYcsG2Zdq1Rwtb172J1RHbKP/L4GfQ 735uhso158AssVuGgV29/mTJ0l3p/471xrZ6snA7gk [file] /8pVdDqTtHhN408KRk7Vyg2AOeTFcpg4PN2/P0W 9lVeX/ZGC/sq+lzi6diKnGQbBLNWrCoA4K90+UnXuzTHPa0j5916yxVvkWzkf2/QRr83nGJRqwQjfI0L Jc53k81qJ8GX8Zg8Z2kS2oBz3YT0S+LeVI6DkBtZoN11dWp+Qd+f38X69B83m46AS6No4B/vIEa758Rl O1bpZ/mD+2nApjkhFXsXZsVHaYPKC9z6s60Hw5Lq5G ivJsarifFqTugdeoxXE+PVLP+aLe7oGe7q8wsKeuSn+fbmNR/bHP+jnL+KdEc+DZy5f2E+Oe9Nsarn+7 p8aO9SY6pCYqfF/Thk9Yk1KtMTiIt0sT0sye9y9Ji3bW4J4/cZ31qjzIxL5+v/HvbVSUM/oB/QT+gn9I 95Bu1w8Mx/2LE6t8+dTPbULl0lntcd6KoP36Ym8Ahc O/QGfdnP/Xu8mZ9L+vk6eH3pzY5YldNvBq1y62A+SiheBvpdjr6yo4OZjxGpnD/Qd+gNeoO+7KsO+6rD upggnMfiTqbDqjWoSjvua25rgM284XlEuk4+20Cmr0O83DHOJ4tqtOnhYD0VhOMf1ad/1kuxEGsdTA9F eXP+cyp2Sh17sf4unpLc7J/2muuB7fvyqf9dc14tXH s614eEG+hrPbTH/UNUjbydIfWO9g1f56zLR1dBQOv9+Ol03i6R3y3e3h6TYyqnscXK+XyJqNy5aC94Fh rhXsg5kq/mcR9dKcnG60K+rGxp68xMv62R7E2aOmx5Xd34FnyZv8a2q/mrqE8r/7cb+q/h+8fIW1ZB5T u1h5i/gtHLdmKd1Dd3N/qaj+1W88/sxe26k8Byu5+8 p84D351KG3D0pq/3MlIJiTJc3yJuUH/63kPu6PjvZ/HkU6BOGm27HRk78UuGK/rid52uS+Ud6L+Yv+ox wvL9LBf/v4+DvBx3j/Stj3xu+0eODHn05M5H53a5NdLTmzd/NDP/8d2p9e3k++k8Bx81fo2luSnm9O+F i1ONtIrHp+wzILnWs4+ApE+7L5MdL5A94c7/aJ//eO 1io3oUIl5pKPR2L1/khMx51dy15Ofxq//PXnW2a5Kwj/sub+TvNb/XynWkd0O/gf6xiF5sdJ64T3ujN5 WsD+7zHuebevkL+7RH0+1b1wTddN54o00Ms5Vd4/bKr165ByY9XY534Vj7Qu+ah2V16Pe4Jo5XX2Ww5Q /oJ/QOvUO/oF+Pfh/qqPSuB9/jSn1Joo1fE+gb9A36 Iu9A6xD37Ps8M/oJ/YTeoXfo6/ozEawmWxB7PfZAJs3IA/U6cMpLxz4x+tG7x51Dq662wIhccTTOarD/ oZ/QO/QO/qR2dp8fPk9g7UY0IMJuqar/gmEI4jvoONh8SqddSjSow7D1/vkz6D4orE3L0q4K99eiS/qy wpf8enO+AjpP4xdsySs+oYSSjfkQr1EvXr0lfoU5Kb fX/KRh/5Vh/5Vh/5Vh/5Vh/3T3ibzUw9DV72mbdkQRZ4Ho/jI1kYpxcM1cO+mY3fUa29YBB/Qd+rI3rO N8nokaen/s8U53cN0XDlDeRoytySakN7rv1e/Cdy3Slt3Kn1Dn/pBPIeo2aiIcjuD9wwLghlxkcpBL3p TEgyVTxZ8g8xIcetTJwW8hBTY3dDptkd3fK+gVeoW+ QV/r+zY69Pi+A+UnMY3JaTjCF/D1Y29cxGmqWO3PjFM+Kq6ZZU/fIRgNXe2bj6R8Z9w93P8u2Thpmm12 y/+2Ry9tJJGhmP/IZ0Bf+3Yh1ruFkjaQitvy5c9hDdyjArf553S+avsmFvNXmRboBdfXerfF/QQ991p+ j6xhviuph7iq52mV4gB3kv+dbl4mKM36Qi/vE1Tu7G +L+ncSxvmefno2jb7JP4l0sNl8itTxSAvwl/0qtmq/qs1514W/0erQG/QGffkLtmr+7WaKj8Mi8W36/r 4tY227dr6rZ5612IB47Hqlsxd9tMh2QrcQux54p5IuOv9Q/pi3iD3zkmu8+SzrIa1aJXL/x1Xr+yPmr3 XcPtW0AIhn8emMR2j+uiIfkWe/3JDtL+m3Jo621uEQ j+tv/2juNjNk+7bM4Uvob9AbBXX9mdGuG+m/BETPxmn8026igNc3c5g8K/pupHt2SvMrrl4q9GE3nL/1 ccYcSkgO0qN4fbSyuqliKcJ9+0v18czOt41kAz520wd23UK7gg4dYRwvDvviU/2MG0Or/w6t/Qsr6Afr K2DDf4U+e9ITpwqk+2rZzyPWB/Q3mk9nncGm+3m08h dGK/9oNIFeoFfoFfoGfYO+Q9+hN+gN+eC7dU5RX5Y64R91QM09D7Fmb94sgyrDedm0Xu2Ze9R39Rt7Zv pNeHHo0RP/4uOONgn65TT8o78Eo5Tuh1GycIRzpWGsnRSsaOHAiM4Nz/JtAcqWaO8t3sdZAek/aBjGK8 R9ZOnlVWQ5yCbQUjQ1TgJR+uDA+uDA+uDA+uCI+aso yyj/aAyUF/NXA/NXA/NXA/fTcEqPZJ73+h+GFaBAnYXaC47drb/37qQLMsxe2exI1v/GqP/vmOUfjXlB X/OTY9Z+wjHLPxpToa/9SGPW/pwxO/QdeoPeoB/QD+Q/1yaLviJ3Hx9P+tp/Jimmy+JAMES+JAMES+JAMES+OFyh [file] v/d000dK833+/o7Ti90064s4596+5yqgV7i68tmcrrl+w6/hwrax61baw5+++/jV1+/fPrz/+DJg2963 91ecQUh2Vb3eQ4c5l1sSfSA9eR++/u7bt4/ 549+KPc350F1jzf+H72i/bry22Sa/fPnz3q/dvr2e/xmJzM52uTom6sh+oob1Yuu+++Pj2i9+9NB++em ne/+d/+j+//G2gx9iJa/7mVZLXhV/8008v2+G57sv+yy/ff/32xTe//s27D++/gLgcZ9394K3K9gk/+H bZZ//Xu68/uw+Iv7L9/NK3X3/0Z90x0iBD/v4/yPE2 Ge4cv/7m7duv/unrr/4qEcZru3n69eyqdm9j2//T8pbDktb14b/92x/+8uMP//r2X//X22//8Mc/fv+X v/zw/R///u3L7//0hx/++PYv/0n8X/7u7c9/els/V//5/s7+ubTPVd/e/fpvvsk+zURqzc4143//yscu g4XsypI//sH4y8esNykia/5o6TpUM1F4t/UPE+gmba t56gjvjvuRkJ9Z1AAr9a99BDFrDQ/2bpiTi50/kd7LxTSu0JSIy/aiFAB5kD4+1emxx94P/PbVLz68++ VXv/1ujA0Zr5vOv8VlvlSxzh4h6/n1asG/+T9l5qSrNtGA0jTVeHE/+8Of/n9s4h4o/b//8En2r3/oW0 TUuS/68a8/zf1gr/f/ae4H/M2Htz/86d9/+Mv/+Ju3 j+xPfX6a/Z65SkoWY2I/2D9/+PbtX//7693/8Oc//TT7HY/cO7iDJz/2zx9//x2rb65nrL0hfPDSr8/7 kE9y3y+4n1DmD3a20ROptIthn3SljMKvdpXAbeUUa33+vn3/P3/27392yvaj86Ky53/m5D1s6HQ4Wd/9 X3/5l7/7ydXnO/zjDz9+/4jMcvY4OG/i+//+++//+o fv//SLFW8iM//XP0Nmeu06+c8/gy3vqsGl7zjke6//3Iwd+gU6w7Oghc/+8Pv/509/+P3r+Z/sije62K JN7hGX/dOuY92eSu//9v1X//d3H95/+2kO6GbUWfS7r/71+68/fvs5u/n9O/z/v+J7ccPx9yR5m+//2w 0v2zgjo0i0iY9tvbglFKw5w/8aEV7/3wamjiy3/r29 iuwk1li43dRJ8c13/hNW4teoD8v+7KiglDMb075rT8g3dLzpXE+5/84TtYhhDaFxQCZ2fjNwcUjzqqEd WjfEGQfvOBOxKkk3OG9VcWDeNUAjT0K8XIJorv9lFESyHTAxeDXnUgKfXGYBUQ4DdJUkEL0JSIk2MBCz WIOvFaHvOLJtpeQ6HIXhYYQbJHKoM7EcdvHdjELfIP AgUj4+IQ4ix3PqOzBoKXWoKur5FM0EmCIqMK7FiTBhrA7msjRvQ097ndGhDBPsGkvhh5McEZvmZHMETV 1ZPVH2LFF2VLFjPt2+EJ7mn6EfEuWbCSViKfq7HK5EiVObc6YgBZ2QB1JzSBKiJMVLNVG7w9WlIVGxfp nlukhsP3QtVCV2nH1nHBR8GUYaNCggWKMyLOmyHDD9 CCIjMGpxHGFuJUNrEFAuBGUrCXr4gONiVW8YO4IjNNCwEMGHDXGzapXdQz8kIVLARwAVJhngX2JOERPo Tbr0TAMtNYbxN2H9JnwsJ5KzZY4LT4MnYOPxYWYWKNCqsgNsYS4ShgZjlN7vREhVNCIGYInBFSwbUgN4 q79mnbIVCUXuKNEmZWcqRYHqVNVxVNKtGRUbDPSwYN LpNLQnIU7IH3HuEBIjVDBNGTH3g2GoVMWbzhipurquEx2naqTeYkt+LrllRLUxs7PrAKvnP7Y2uPAcA2 EzB1SyPY6UvIUeMQfxDRMxADVjGGWsZ000blInQH6+BT8hl3ToRqvwFFFYQMQaUVDrSQEpYHF3LjKgHN YqHVHhRSNwCfW8CqJjAjWSEEWjNDG6ToU4KbChLSGh WHEiZWboQDShBEV5VCKqVIZtCWDxXN5tHqZnNNWqBbU7VFGwTBLuNUBnqyZALBWhAJEoXUNtWCU7WTFd WLWfOFuzWATkRHWqPUK6VZBuXSVhJE5gMpKyPPSxMWJgKaijVDWyPERgaoBEDFSpPGWjCLZ7FsBhWRYr CPHdMSlcTXKeFOFdDcp0VYRuBTZyFH4nZfIfWDFhXU Y4BClnDFRwERTnfpPSEEPgGEUpMVLmVmOxMKGmWAVeOZkqBYIhGBXlGyFdLJAfPHPmTP8jNwTuBETcRJ P3MSYkDLIqWYNrnaUWFTZhBVBvVUo9OHLkGLShPHJzUGicQOQqXQBsXIG0GGNoGQZwRL9pDxVgOBDvQD ApQFEnFVEqOFAylwREAOUoAZRoZZL8LOYjRUZgXATl VWquVGUjXZTcYcw8THAnLRMsUH2jMfTnQNIsYTZ6LLDfGJIgQJEmzgOVXTMnIKO2OflmXiWmDIAcOGKf YHpvBJDpNDZjIjK0LNQyYKXvFH1cHmNaUNFgQGJ1ApAsRHZlDDSfrxFIWVWfPNQxZNX5SeErQPKyRFDu KVxbFSKoIJLsLICjTEP7PID4SOVwBaGdONlnOVYKHF jUU3YftdIgWiEJJ8biUw1pMuCoQSATH2Bnh8AaAZLwPTUPBx6+UiH3EYE0cOGlKqe6LwAuLljnNGKQYz == ID Date Data Source [id number] 01/12/2020 05:51:13 AM EDT [facility] Name Value Range Interpretation Code Description Data Corrie rce(s) Supporting Document(s) Bicarbonate [Moles/volume] in Serum 19 mmol/L 22-29 L [facility] Chloride [Moles/volume] in Serum or Plasma 111 mmol/L 98-107 H [facility] Creatinine [Mass/volume] in Serum or Plasma 0.66 mg/dL 0.50-0.90 [facility] Glucose [Mass/volume] in Serum or Plasma 94 mg/dL 70-140 [facility] Potassium [Moles/volume] in Serum or Plasma 3.7 mmol/L 3.4-5.1 [facility] Sodium [Moles/volume] in Serum or Plasma 137 mmol/L 136-145 [facility] Urea nitrogen [Mass/volume] in Serum or Plasma 9 mg/dL 6-20 [facility] QA FLAGS AND/OR RANGES MODIFIED BY DEM[employer] RAPHIC UPDATE ON 01/11 AT 1515 Anion gap 3 in Serum or Plasma 8 mmol/L 8-15 [facility] Osmolality of Serum or Plasma by calculation 282 mosm/kg 275-300 [facility] Creatinine/Urea nitrogen [Mass Ratio] in Serum or Plasma 13 [facility] Calcium [Mass/volume] in Serum or Plasma 7.7 mg/dL 8.6-10.0 [facility] QA FLAGS AND/OR RANGES MODIFIED BY [employer] RAPHIC UPDATE ON 01/11 AT 1515 Glomerular filtration rate/1.73 sq M pre dicted among non-blacks [Volume Rate/Area] in Serum or Plasma by Creatinine-based formula (MDRD) >6 0 [facility] Glomerular filtration rate/1.73 sq M pre dicted among blacks [Volume Rate/Area] in Serum or Plasma by Creatinine-based formula (MDRD) >60 [facility] ID Date Data Source [id number] 01/11/2020 04:24:53 PM EDT [facility] Name Value Range Interpretation Code Description Data Corrie rce(s) Supporting Document(s) Bicarbonate [Moles/volume] in Serum 20 mmol/L 22-29 L [facility] Chloride [Moles/volume] in Serum or Plasma 105 mmol/L 98-107 [facility] Creatinine [Mass/volume] in Serum or Plasma 0.66 mg/dL 0.50-0.90 [facility] Glucose [Mass/volume] in Serum or Plasma 89 mg/dL 70-140 [facility] Potassium [Moles/volume] in Serum or Plasma 3.9 mmol/L 3.4-5.1 [facility] Hemolyzed Sodium [Moles/volume] in Serum or Plasma 136 mmol/L 136-145 [facility] Urea nitrogen [Mass/volume] in Serum or Plasma 8 mg/dL 6-20 [facility] QA FLAGS AND/OR RANGES MODIFIED BY [employer] RAPHIC UPDATE ON 01/11 AT 1515 Anion gap 3 in Serum or Plasma 11 mmol/L 8-15 [facility] Osmolality of Serum or Plasma by calculation 280 mosm/kg 275-300 [facility] Creatinine/Urea nitrogen [Mass Ratio] in Serum or Plasma 12 [facility] Calcium [Mass/volume] in Serum or Plasma 8.4 mg/dL 8.6-10.0 [facility] QA FLAGS AND/OR RANGES MODIFIED BY [employer] RAPHIC UPDATE ON 01/11 AT 1515 Glomerular filtration rate/1.73 sq M pre dicted among non-blacks [Volume Rate/Area] in Serum or Plasma by Creatinine-based formula (MDRD) >6 0 [facility] Glomerular filtration rate/1.73 sq M pre dicted among blacks [Volume Rate/Area] in Serum or Plasma by Creatinine-based formula (MDRD) >60 [facility] ID Date Data Source [id number] 01/11/2020 09:25:[address] [facility] Name Value Range Interpretation Code Description Data Corrie rce(s) Supporting Document(s) Sodium [Moles/volume] in Blood 138 mmol/L 136-145 [facility] Potassium [Moles/volume] in Blood 3.8 mmol/L 3.4-5.1 [facility] Chloride [Moles/volume] in Blood 108 mmol/L 98-107 H [facility] Carbon dioxide, total [Moles/volume] in Blood 22 mmol/L 22-29 [facility] Calcium.ionized [Moles/volume] in Blood 1.16 mmol/L 1.13-1.32 [facility] Glucose [Mass/volume] in Blood 115 mg/dL 70-140 [facility] Urea nitrogen [Mass/volume] in Blood 8 mg/dL 6-20 [facility] QA FLAGS AND/OR RANGES MODIFIED BY [facility] RAPHIC UPDATE ON 01/11 AT 1515 Creatinine [Mass/volume] in Blood 0.5 mg/dL 0.50-0.90 [facility] Hematocrit [Volume Fraction] of Blood 35 % 36-45 L [facility] Hemoglobin [Mass/volume] in Blood by calculation 11.9 g/dL 11.5-15.5 [facility] ID Date Data Source [id number] 01/11/2020 10:26:[address] [facility] Name Value Range Interpretation Code Description Data Corrie rce(s) Supporting Document(s) Bicarbonate [Moles/volume] in Serum 22 mmol/L 22-29 [facility] Chloride [Moles/volume] in Serum or Plasma 104 mmol/L 98-107 [facility] Creatinine [Mass/volume] in Serum or Plasma 0.66 mg/dL 0.50-0.90 [facility] Glucose [Mass/volume] in Serum or Plasma 115 mg/dL 70-140 [facility] Potassium [Moles/volume] in Serum or Plasma 4.0 mmol/L 3.4-5.1 [facility] Hemolyzed Sodium [Moles/volume] in Serum or Plasma 133 mmol/L 136-145 L [facility] Urea nitrogen [Mass/volume] in Serum or Plasma 9 mg/dL 6-20 [facility] QA FLAGS AND/OR RANGES MODIFIED BY [employer] UPDATE ON 01/11 AT 1515 Anion gap 3 in Serum or Plasma 7 mmol/L 8-15 L [facility] Osmolality of Serum or Plasma by calculation 276 mosm/kg 275-300 [facility] Creatinine/Urea nitrogen [Mass Ratio] in Serum or Plasma 14 [facility] Calcium [Mass/volume] in Serum or Plasma 8.2 mg/dL 8.6-10.0 L [facility] QA FLAGS AND/OR RANGES MODIFIED BY [employer] UPDATE ON 01/11 AT 1515 Glomerular filtration rate/1.73 sq M pre dicted among non-blacks [Volume Rate/Area] in Serum or Plasma by Creatinine-based formula (MDRD) >6 0 [facility] Glomerular filtration rate/1.73 sq M pre dicted among blacks [Volume Rate/Area] in Serum or Plasma by Creatinine-based formula (MDRD) >60 [facility] ID Date Data Source [id number] 01/06/2020 09:55:00 AM EDT [facility] Name Value Range Interpretation Code Description Data Corrie rce(s) Supporting Document(s) Albumin [Mass/volume] in Serum or Plasma by Bromocresol green (BCG) dye binding method 4.6 g[facility]dL 3.5-5.2 [facility] Bilirubin.total [Mass/volume] in Serum or Plasma 0.4 mg/dL <1.2 [facility] Calcium [Mass/volume] in Serum or Plasma 8.8 mg/dL 8.6-10.0 [facility] Chloride [Moles/volume] in Serum or Plasma 102 mmol/L 98-107 [facility] Creatinine [Mass/volume] in Serum or Plasma 0.74 mg/dL 0.50-0.90 [facility] Glucose [Mass/volume] in Serum or Plasma 77 mg/dL 70-140 [facility] Alkaline phosphatase [Enzymatic activity/volume] in Serum or Plasma 57 U/L 35-104 [facility] Potassium [Moles/volume] in Serum or Plasma 3.9 mmol/L 3.4-5.1 [facility] Protein [Mass/volume] in Serum or Plasma 7.2 g/dL 6.4-8.3 [facility] Sodium [Moles/volume] in Serum or Plasma 137 mmol/L 136-145 [facility] Aspartate aminotransferase [Enzymatic activity/volume] in Serum or Plasma 16 U/L <32 [facility] Urea nitrogen [Mass/volume] in Serum or Plasma 9 mg/dL 6-20 [facility] Osmolality of Serum or Plasma by calculation 281 mosm/kg 275-300 [facility] Creatinine/Urea nitrogen [Mass Ratio] in Serum or Plasma 12 [facility] Bicarbonate [Moles/volume] in Serum 26 mmol/L 22-29 [facility] Alanine aminotransferase [Enzymatic activity/volume] in Seru m or Plasma 7 U/L <33 [facility] Anion gap 3 in Serum or Plasma 9 mmol/L 8-15 [facility] Glomerular filtration rate/1.73 sq M pre dicted among non-blacks [Volume Rate/Area] in Serum or Plasma by Creatinine-based formula (MDRD) >6 0 [facility] Glomerular filtration rate/1.73 sq M pre dicted among blacks [Volume Rate/Area] in Serum or Plasma by Creatinine-based formula (MDRD) >60 [facility] ID Date Data Source [id number] 01/06/2020 10:10:[address] [facility] Name Value Range Interpretation Code Description Data Corrie rce(s) Supporting Document(s) Lactate dehydrogenase [Enzymatic activit y/volume] in Serum or Plasma by Lactate to pyruvate reaction 146 U/L 122-214 [facility] ID Date Data Source [id number] 01/06/2020 11:41:[address] [facility] Name Value Range Interpretation Code Description Data Corire rce(s) Supporting Document(s) Leukocytes [#/volume] in Blood by Automated count 6.1 10*3/uL 4-10 [facility] Erythrocytes [#/volume] in Blood by Automated count 4.89 10*6/uL 4.1- 5.3 [facility] Hemoglobin [Mass/volume] in Blood 13.4 g/dL 11.5-15.5 [facility] Hematocrit [Volume Fraction] of Blood by Automated count 41.2 % 3 6-45 [facility] Erythrocyte mean corpuscular volume [Entitic volume] by Auto mated count 84.3 fL 80-96 [facility] Erythrocyte mean corpuscular hemoglobin [Entitic mass] by Automated count 27.5 pg 27-33 [facility] Erythrocyte mean corpuscular hemoglobin concentration [Mass/volume] by Automated count 32.6 g/dL 32.0-36.0 [facility] Erythrocyte distribution width [Ratio] by Automated count 14.2 % 11.5-14.5 [facility] Platelets [#/volume] in Blood by Automated count 188 10*3/uL 150-400 [facility] Confirmed Differential cell count method - Blood [facility] Neutrophils/100 leukocytes in Blood by Automated count 66 % [facility] Lymphocytes/100 leukocytes in Blood by Automated count 30 % [facility] Monocytes/100 leukocytes in Blood by Automated count 3 % [facility] Basophils/100 leukocytes in Blood by Automated count 1 % [facility] Neutrophils [#/volume] in Blood by Automated count 4.06 10*3/uL 1.8-7 .0 [facility] Lymphocytes [#/volume] in Blood by Automated count 1.81 10*3/uL 1.2-4 .0 [facility] Monocytes [#/volume] in Blood by Automated count 0.20 10*3/uL 0-0.8 [facility] Basophils [#/volume] in Blood by Automated count 0.03 10*3/uL 0-0.2 [facility] ID Date Data Source [id number] 11/29/2019 02:42:20 AM EDT [facility] Name Value Range Interpretation Code Description Data Corrie rce(s) Supporting Document(s) Progress Note [facility] JBXTIk1xWbIYWqUj63/IAUueYUCbz3ZfMAifURq5WUqmTQRxC5MuFPG8uK4zCAO2WPuAEuDgJdAoIPL5 lbm [file] MwPEtrKMXsASe4Aqa9ZPi5GEXwDSD6OL2jSVEMLf7+AMrldRDlmEmlRKLQKozoDhELIiMfCP0HLAx= ID Date Data Source [id number] 12/05/2019 01:05:00 AM EDT [facility] Name Value Range Interpretation Code Description Data Corrie rce(s) Supporting Document(s) Levetiracetam, S 20.6 ug/mL 10.0-40.0 [facility] This test was developed and its performa nce characteristicsdetermined by [facility]. It has not been cleared or approvedby the Food and Drug Administration. ID Date Data Source [id number] 11/06/2019 12:13:11 AM EDT [facility] Name Value Range Interpretation Code Description Data Corrie rce(s) Supporting Document(s) Progress Note [facility] AHSVSr0dSaERZxEb22/NLRumOQBlf6VxUVqtPIb2MPolYEFsP9LuZOR3kL9mLZX7OXiHQaGqSeGyEhHw lbm [file] /QHXrrQYIBbH1R1qeWrd6tf+zLXp/DAIRY MACHINE OPERATOR FARMWORKER/c8Nyx6IiVrKaGvqpQnmhVhuW02wlKThlWddwXjOIzzt+rZl [file] jGnWmfIypimLABsZQKco9fZK1GcXMVnTGeQkSjld+rBoQv0GFZpLczz8iuYCq56uH/3/Track Service Person+xcs+M4h5m [file] XgW3FMA4DIfvMRLUQy4Z ID Date Data Source [id number] 11/05/2019 01:06:00 PM EDT [facility] ([facility]) Name Value Range Interpretation Code Description Data Corrie rce(s) Supporting Document(s) Free T4 2.21 ng/dL 0.76-1.46 [facility]) Thyroid Stimulating Hormone Laboratory test result [id number] [facility] ([facility]) ID Date Data Source [id number] 09/01/2019 08:30:00 AM EDT [facility] ([facility] ) Name Value Range Interpretation Code Description Data Corrie rce(s) Supporting Document(s) Thyroglobulin Ab [Units/volume] in Serum or Plasma Laboratory test re sult [facility] ([facility]) ID Date Data Source [id number] 09/01/2019 08:30:00 AM EDT [facility] ([facility]) Name Value Range Interpretation Code Description Data Corrie rce(s) Supporting Document(s) Thyroid Stimulating Hormone 5.420 uIU/ML 0.358-3.740 [facility] ([facility]) Free T4 0.82 ng/dL 0.76-1.46 [facility] ([facility] ID Date Data Source [id number] 09/01/2019 08:30:00 AM EDT [facility] ([facility]) Name Value Range Interpretation Code Description Data Corrie rce(s) Supporting Document(s) Thyroperoxidase Ab [Units/volume] in Serum or Plasma 28.6 U/ML [facility] ([facility]) ID Date Data Source [id number] 08/08/2019 07:00:00 PM EDT [facility] Name Value Range Interpretation Code Description Data Corrie rce(s) Supporting Document(s) Progress Note [facility] NBVIYq9cDyAJXvRj14/GTYilNLHlj7CcKFgeLVh6SFoeZEBdE7XcVUG0jL8hCOZ5PZhTVpWxZyOuEGCi m [file] IIM5AQSZyqyTmQruHyrlbEQPiVHWip2iNP3NiIJRnTOaYlGwbl+bFfZp1EDTxIykr2uvNJz49zH/3/Track Service Person [file] SP/MAP/T+auger operator+5//KdMfASJ6J00xXojSlZQv/iPqTWe [file] GASOLINE TRUCK CRANE OPERATOR+Qb9UCEXgWNr8J8L4GBUfYJw3M4PJM1CRAIThYCshFYzlSOUbTZp9V9I2NPGbK4USV0Acvrncjt7+ GE1KN25VXVXnTJp7H9Y5yXSfG5F3oTrKqXE2CD5QFE8DePq1qJTywT4+CS4CX1XNAlHnXBf7Z6D2kWUu Q1W6vXiStHJ8TF4JAR7MmBFvCUOwltAwGc7nM8DDMU eQSbYIQEV7MF0FxDFgKA5RxVSSK3NlnJCaPz0rCQdewNSfeE7zZv3gRXwhRP7PUkESWYwLKWR1XD3SdO FgOC7LoVAED2UjpMRoEy0oWZswpTCzkm6+PS5VMZMwDz2TCt3+UWoaaeUvJhqHHcB6SPLbm2AwRSd0VE 2AJI7tgSiiBGX1Ff5RcFV5bAPuY2qCOY7RbKVdN39a sQHaRNVqNd7YFeD4jqAyyG3UBR28jXYyk1X9HPNlT5mkXZcoz58eCOaxYDlJGE9fKDEQDDwpKIphFMX1 TmGkjturTKWwVc5IReHvXOq9xP3vbAY9DQI6SrqoeWSiMFvdOxNmBlJeBiG7mXdmpzt2CSkxKS9gVHfd czptZXRhLyc+BQmlBWAoAQYtPuzFVJZohX7zrhW2aa IkKTchgTEzKo8ag3f0WjoeQf7qAb9kGZh1OxNzXcEmQXXdRs3ulK06RPryvkZxYl1FLeAnTJZ5W6YnVk pSREY+EDhgEFbfsUk7iAGyYTLtAp7GVTCvIIVkYCErFQMoTBTyWSZkJTHxMPYqUGJjVXZeDNYsCHRmPO AgICAgICAgICAgICAgICAgICAgICAgICAgICAgICAg NQUcEHLxEUJcEXCtSJAxFIAcUJNhCQCcURRdDRIkPL1DABArEYLnQDHeYDNhRUJoXIEdHRSvDRGdGJPb ICAgICAgICAgICAgICAgICAgICAgICAgICAgICAgICAgICAgICAgICAgICAgICAgICAgICAgICAgICAg PNTtUOOoMMLkYXNdMA5KXPFtNREnITJlGZPhRQBjXI AgICAgICAgICAgICAgICAgICAgICAgICAgICAgICAgICAgICAgICAgICAgICAgICAgICAgICAgICAgIC LqWIRuGALpGGKfTAOdPRFxRJGpQWYtPZ2DAWTxGZPpMJFpAEGdVZJfIVBeMGIuTVAaHFFzWENiNGPcYN AgICAgICAgICAgICAgICAgICAgICAgICAgICAgICAg GPFcHRNyDSImPSBqEZQlVXKbHBQaMUPwIQFiVYZsTJVtTW3DVTPiONBgYETmCQWuQHAzJTEvBPDjPZOm ICAgICAgICAgICAgICAgICAgICAgICAgICAgICAgICAgICAgICAgICAgICAgICAgICAgICAgICAgICAg XKJiBPGuBHSaJRCoTFPmZU2BSKJgGPQmPMQuJVNxKZ AgICAgICAgICAgICAgICAgICAgICAgICAgICAgICAgICAgICAgICAgICAgICAgICAgICAgICAgICAgIC SwGKBsSFVcAKGpTCAtGZHiJKLxMIHgYZIkTG3BBVTfEWIjTTHbOCSeIPJcGPPlHFKuVKHcPHFsQHXxGY AgICAgICAgICAgICAgICAgICAgICAgICAgICAgICAg BMJiDRXkRSQcMWNwSYOpYGJhFCIjQAVlJRHjMECfAGShANLwLA1IDBOzRBOaPHBdOXCpPANlJBJcQKBl ICAgICAgICAgICAgICAgICAgICAgICAgICAgICAgICAgICAgICAgICAgICAgICAgICAgICAgICAgICAg WJZeTOAkUSAtPFNvUFArKBMbYP5VFEFdKHXnSVMtCH AgICAgICAgICAgICAgICAgICAgICAgICAgICAgICAgICAgICAgICAgICAgICAgICAgICAgICAgICAgIC FkRXZlRKGmZNJkMVXzDAMaOUYdAZTrQCSdKVQvRZ3UGZZjNTKdBTPqEEHwMCVyJCFmLXKeZDUfKPDfOZ AgICAgICAgICAgICAgICAgICAgICAgICAgICAgICAg TMUaNHIzTRVaOWFuBSJvGPHmDRFtSPAgPQRaLPYdJCUoBJWgBGLhXA0TZJ60fXUtq9E1JTIgVN0ntjy/ Gm8HMIhoysYziYCeTL8XMcJfKF0cfz2JNzTzYT1iwg5IXXmUUnLgV9P8fFXbFQPsZDGYFxEpK38yDZbe Rm15CEvhKCPnGcTcCNa3Rq1QGjGyP3gpMUBiKiA7CL NhRzB9LBMaYvF6KFEvZmIdTBLeYOWnPRYyUWMQWDZ0OFYtJpDzYbInMKLfAGkuGPIIPFJbTQViIvDjZV tfDT3Ue9DueOU3MXe+Ps8AAR0ei0RgSYqkVMYfLT0thv8WFHhFUqXuK1OuxyG3VPW5XXEdEu0SWWMoTD HnxQHoYZUzUBZESvCjI4DhiK34ZCDMKx5+DQplbmRv FarDMhL9ZHFds3OzJPq2MB4FFMDgRVi8cYGvZKAuW3Lss1GeOb58GNMvCpfyLPkalpusrG1eRCgzi1Mv KR8RNPO6CQRyFxGuNdQsNNZmJOqwDFQRUAsLXrAuK0Lji2XnElK1FOQbAvSoIAiyRALjTvO8CU41eWlg OC8MQJAkHZOfFO28MWX7AJLdEj8KNz1EIeCzXF0use 6MBHJoPHByBltEEgl1SJzaPF3VbEYmA9XduPWzf0bWXyJyE0OIVMC0QMHlYu3OBXHpViXhUIXiHNshXV 7xGMMiEYFTfHhkakG2MI1QMF9qemDmFH7BZoYaBo8cEn5JTgIzO2NeZ0JxLCTgHVWLVBjyDD5WSEjqAH 0pFR4It9IYlRIqrP5qte0PRKHdYUVjSqghkr9TCeil I8D4hByhFXOrAjcuIREQSEmlVP8SCOEpEST1JMGjMrEeDRZNPdNbQ67fTB2JW9Yty74dXyL9DALcFsMi BRncNB18wGldciWeuVXiqZsuEQ6BOv9+DQplbmRvYmoNCnhyZWYNCjAgNDENCjAwMDAwMDAwMDAgNjU1 LfNnBk3LZHRcYBEyZMJsDoMfJZWpYLPcYPdmAZGyVZ Z8GzPtZFXjSSGzQN0FQqErGWAqMBrgCCzyNFFnTIPugy9NVRGmZEKxMJU5RcDlCSKzIZTcGZtsELJyDW J4Fus8FNYqHKWdNV0HVuObZBLoVQK7WPCnHGNeZZWibh5WDACoNDSxUGH4FTAdMXVeKQHcCQtfVOHrAP I4Tkg8PZMtTIQfVW7IKnPtHCHuDHNzXeVeFVWsNANd hk6NDQFrRDRxLEF6RdReMIZcMHVbRLjcLTQnAHCrSDQaFFMqRGLoUB7DPeBbBXRgCJMpPkexYSTiLBFx tw4AZCGhBVOaQfS5RBGzBPOqMSVwSMykZMVuMZB6GxB9FCPfFQCiKO8RUqHeDBZfSwMpISGmMNUqZJXf pb1ECFTbSUMgGJN9CoCuVABqNHImQGwzGABzKERfQt s2TKMmXBNnPG0TPpZyQJXvNgQ5MBOtXGVmLFWpbo1EQGUaONZiKmQjFWBrGCFhISLkMMosCUEhXJK2BO L6TQPxYSYyFF4IOdLiCYHaHkhsQZLtTZCwRCQcud3NMOMvYSCmUIWuOVFoWYDjKEKpWWyfNPHnCHJsEs PjJJTyLLYcLQ1SOgZrUTEnAaG9AUfrDKCdTPMngd1T YGFcIXNvWFj4WTTaBCVbWUXcPRgsHEAqSWTaQah6TCLmHXGsHX4VKaBzSDBaAtA5HWKyVDZxUDNipv8Z WZDlJGOdHwQ7HABmBVYtYZAfCSydMLAnYZCsKmInMHCvWNLdFO2OOvXfFEJsZPYvOiDlXAPpFVMkru8W QYGzVSH0ThGgFfHeTVPnILGmHWpfJYTcVBKrKSU2RF YoJQMaPL9UWwEsBIHoFIE7XVUmGNJaUXCmtn7DKUAtTSY9KUueGHDlPXZvBEWiSWsxCFMeNHW1TBIvWR FxTUWoBA6ZStZdTAAsDAPrNLKhWPImHJZfhn9CKLHfWKR0KOtgAKWuQIZqMFRjVUjfKUMaRJN2VoQiRH LgRIEhYQ1HGwCrSSQhSCpgJbRiJPFuKSGxta3DMGNx ILM9MyBuDHAiIIRqADYsGQr5anJxqHDdITt2MB9XW8RuotFjKPGOFs1Ck609NEUzGKSeWd1CD0ebMn4e ZTQpVXPIQe5SZSh0ZkOqIIPdZWjqNreyOANiZgEaQOR4DhWvS4S9MBwvAgs+ALo0IfW2BkAvGBDbTFT8 DNMzQhHpWcJ6LxYlVXH0EMVeFv1uZDUZFf0+PNsthJVdzCdbGSJDBoI0JbH5SIoyHHPGDw0E ID Date Data Source [id number] 04/26/2019 04:04:00 PM EST [facility] 1 OrderSheet [facility] Emergency Department [address] [place] [address] Phone #: ext- [phone] 04/26/2019 15:25 Patient: NERY WAN Sex: F : 1990 Age: 29yWEIGHT:74.8 kg (S) HEIGHT:64 inches (S) BMI:28.3ALLERGIES: Fentanyl and Related, Ketamine, LatexCHIEF COMPLAINT: dysuria, pelvic pain, abd cramps, abnml bleedingDIAGNOSIS: Vaginal discharge symptom, Vaginal bleeding problemLAB ORDERSOrder Description Priority Entered Acknowledged InitialedUrinalysis (Clean STAT 16:59 04/26/2019 17:14 Carolyn Sheffield) Xi SheffieldNKaylah R.NKaylah; Verbal order per; Vamsi Novoa PhysicianPTT STAT 17:55 04/26/2019 17:58 Vamsi Sharif R.N. Physician;PT/INR STAT 17:55 04/26/2019 17:58 Vamsi Sharif R.N. Physician;Lipase STAT 17:55 04/26/2019 17:58 Vamsi Sharif R.N. Physician;CBC w Diff STAT 17:55 04/26/2019 17:58 Vamsi Sharif R.N. Physician;CMP STAT 17:55 04/26/2019 17:58 Vamsi SharifN. Physician;CPK STAT 17:55 04/26/2019 17:58 Vamsi Sharif R.N. Physician;Blood Culture STAT 17:55 04/26/2019 17:58 Kole,q10m X2 (Sched Vamsi Balderrama R.N.17:55 04/26/2019) Physician;Blood Culture STAT 17:55 04/26/2019 17:58 [place]ole,q10m X2 (Sched Vamsi Balderrama R.N.18:05 04/26/2019) Physician;DIAGNOSTIC STUDY ORDERS 2 OrderSheet [facility] Emergency Department [address] [place] [address] Phone #: ext- [phone] 04/26/2019 15:25 Patient: NERY WAN Sex: F : 1990 Age: 29yOrder Description Priority Entered Acknowledged InitialedUS Pelvis STAT 17:55 04/26/2019 17:58 Kole,(Oxygen?(No)) Vamsi Balderrama R.N. Physician; Reason for Study: Abnormal BleedingCT Abd PEL W/ IV STAT 17:56 04/26/2019 Initialed: 17:58 Tacos Sharif R.N.Contrast Only Vamsi Novoa Cancelled: Physician Order 18:08 Vamsi(Oxygen?(No)) Physician; Jonn Physician(IV?(Yes)) NOTES: Hematuria / Pelvic pain Reason for Study: Abdominal PainCT ABD PEL W/O STAT 18:08 04/26/2019 19:05 Kole,Oral W/O IV Vamsi Balderrama R.N.Contrast Physician;(Oxygen?(No))(IV?(Yes)) Reason for Study: Abdominal Pain, Pelvic PainUS Pelvis STAT 18:30 04/26/2019 Cancelled: Physician Order 18:37 Vamsi(Oxygen?(No)) Vamsi Novoa Physician Physician; NOTES: Transvaginal Reason for Study: Abnormal BleedingMEDICATION/IV/DRIP/FLUID ORDERSOrder Description Priority Entered Acknowledged InitialedGENERAL ORDERSOrder Description Priority Entered Acknowledged InitialedSaline Lock 17:56 04/26/2019 17:58 Vamsi Sharif R.N. Physician;[Electronically signed by Tacos Sharif R.N. (21:27 04/26/2019)][El ectronically signed by Vamsi Novoa Physician (08:06 04/27/2019)][Electronically locked by Tacos Sharif R.N. (:27 04/26/2019)] Name Value Range Interpretation Code Description Data Corrie rce(s) Supporting Document(s) ID Date Data Source [id number] 04/26/2019 04:04:00 PM EST [facility] 1 Medication Reconciliation Report [facility] Emergency Department [address] [place] [address] Phone #: ext- [phone] 04/26/2019 15:25 Patient: NERY WAN Sex: F : 1990 Age: 29yWeight: 74.8 kgHeight/Length: 64 in.BMI: 28.3ALLERGIES: Fentanyl and Related, Ketamine, LatexThe patient's Home Medications are listed below:THE FOLLOWING MEDICATIONS NEED TO BE RECONCILED: Albuterol Sulfate HFA Inhalation 2 puffs, prn Amitriptyline HCl Oral (25 mg) 1 tablet, daily Bis acodyl Oral 10 mg, prn Gabapentin Oral (100 mg) 1 capsule, 2x a day Keppra Oral (750 mg) 1 tablet, 2x a day LaMICtal Oral (200 mg) 1 tablet, 2x a day Levothyroxine Sodium Oral (150 mcg) 1 tablet, daily metroNIDAZOLE Oral (500 mg) 1 tablet, daily, for 7 days, d/c 05/01/2019 MiraLax Oral 1 packet, daily Nexplanon SubcutaneousThe source(s) of the original Home Medication information:Not obtained.The following Medications were given to the patient in the Emergency Department:None.The following Medications were prescribed to the patient:None. 2 Medication Reconciliation Report [facility] Emergency Department [address] [place] [address] Phone #: ext- [phone] 04/26/2019 15:25 Patient: NERY WAN Sex: F : 1990 Age: 29y Name Value Range Interpretation Code Description Data Corrie e(s) Supporting Document(s) ID Date Data Source [id number] 04/26/2019 04:04:00 PM [place] [address] Medication Administration Record [facility] Emergency Department [address] [place] [address] Phone #: ext [phone] 04/26/2019 15:25 Patient: NERY WAN Acct#: [id number] Sex: F : 1990 Age: 29yWeight: 74.8 kgHeight/Length: 64 inBMI: 28.3ALLERGIES: Ketamine, Latex, Fentanyl and RelatedDate/Time Medication Administered Medication Ordered Name Value Range Interpretation Code Description Data Corrie rce(s) Supporting Document(s) ID Date Data Source [id number] 04/26/2019 04:04:00 PM [facility] 1 General Instructions [facility] Emergency Department [address] [place] [address] Phone #: ext [phone] 04/26/2019 15:25 Patient: NERY WAN Sex: F : 1990 Age: 29yMild pre-menopausal dysfunctional uterine bleeding. (Minimal).Vaginal discharge (Mild).INSTRUCTIONSDrink plenty of fluids.Warnings: GENERAL WARNINGS: Return or contact your physician immediately if your conditionworsens or changes unexpectedly, if not improving as expected, or if other problems arise.Follow- up:Follow up with a software packager if not better. Call for an appointment. Reason for referral: evaluation,treatment and Dysfunction uterine bleeding / Cystitis / Bacterial vaginosis.Understanding of the discharge instructions verbalized by patient. ADDITIONAL INFORMATIONDysfunctional Uterine BleedingDysfunctional uterine bleeding, also called abnormal uterine bleeding, is a condition in which bleeding 2 General Instructions [facility] Emergency Department [address] [place] [address] Phone #: ext- [phone] 04/26/2019 15:25 Patient: NERY WAN Sex: F : 1990 Age: 29yis abnormal and occurs at unexpected times of the month. This happens because of changes in thehormones that help control a woman's menstrual cycle each month.The bleeding may be heavier or industrial specialist than normal. If you have heavy bleeding often, this can lead toa problem called anemia. With anemia, your red blood cell count is too low. Red blood cells help carryoxygen throughout your body. Severe anemia may cause you to look pale and feel very weak or tired.You might also become short of breath easily.To treat dysfunctional uterine bleeding, medicines are often tried first. If these don't help, or if youhave additional symptoms or have reached menopause, further testing and treatments may beneeded. Discuss all of your options with your provider.Home careMedicinesIf you're prescribed medicines, be sure to take them as directed. Some of the more commonmedicines you may be prescribed include: Hormone therapy (Options include most methods of hormonal control such as pills, shots, or a hormone-releasing IUD) Nonsteroidal anti-inflammatory drugs (NSAIDs), such as ibuprofen Iron supplements, if you have anemiaGeneral care Get plenty of rest if you tire easily. Avoid heavy exertion. To help relieve pain or cramping that may occur with bleeding, try using a heating pad on the lower belly or back. A warm bath may also help.Follow-up careFollow up with your healthcare provider, or as directed.When to seek medical adviceCall your healthcare provider right away if: Bleeding becomes heavy (soaking 1 pad or tampon every hour for 3 hours) Increased abdominal pain Irregular bleeding worsens or does not get better even with treatment 3 General Instructions [facility] Emergency Department [address] [place] [address] Phone #: ext- [phone] 04/26/2019 15:25 Patient: NERY WAN Sex: F : 1990 Age: 29y Fever of 100.4F (38C) or higher, or as directed by your provider Signs of anemia, such as pale skin, extreme fatigue or weakness, or shortness of breath Dizziness or fainting [id number] [employer]. [address] [place] [address]. All rights re served. This information is not intended as asubstitute for professional medical care. Always follow your healthcare professional's instructions.Bacterial VaginosisYou have a vaginal infection called bacterial vaginosis (BV). Both good and bad bacteria are presentin a healthy vagina. BV occurs when these bacteria get out of balance. The number of bad bacteriaincrease. And the number of good bacteria decrease. Although BV is associated with sexual activity,it is not a sexually transmitted disease.BV may or may not cause symptoms. If symptoms do occur, they can include: Thin, eaton, milky-white, or sometimes green discharge Unpleasant odor or "fishy" smell Itching, burning, or pain in or around the vaginaIt is not known what causes BV, but certain factors can make the problem more likely. This caninclude: Douching Having sex with a new partner Having sex with more than one partner 4 General Instructions [facility] Emergency Department [address] [place] [address] Phone #: ext- [phone] 04/26/2019 15:25 - Patient: NERY WAN Sex: F : 1990 Age: 29yBV will sometimes go away on its own. But treatment is usually recommended. This is becauseuntreated BV can increase the risk of more serious health problems such as: Pelvic inflammatory disease (PID) delivery (giving to a baby early if you're ) HIV and certain other sexually transmitted diseases (STDs) Infection after surgery on the [facility] BV is most often treated with medicines called antibiotics. These may be given as pills or as a vaginal cream. If antibiotics are prescribed, be sure to use them exactly as directed. Also, be sure to complete all of the medicine, even if your symptoms go away. Don't douche or having sex during treatment. If you have sex with a female partner, ask your healthcare provider if she should also be treated.Prevention Don't douche. Don't have sex. If you do have sex, then take steps to lower your risk: o Use condoms when having sex. o Limit the number of sexual partners you have.Follow-up careFollow up with your healthcare provider, or as advised.When to seek medical adviceCall your healthcare provider right away if: You have a fever of 100.4F (38C) or higher, or as directed by your provider. Your symptoms worsen, or they don't go away within a few days of starting treatment. You have new pain in the lower belly or pelvic region. You have side effects that bother you or a reaction to the pills or cream you're prescribed. 5 General Instructions [facility] Emergency Department [address] [place] [address] Phone #: ext- [phone] 04/26/2019 15:25 Patient: NERY WAN Sex: F : 1990 Age: 29y You or any partners you have sex with have new symptoms, such as a rash, joint pain, or sores. [id number] [employer]. [address] [place] [address]. All rights reserved. This information is not intended as asubstitute for professional medical care. Always follow your healthcare professional's instructions. You have been given the following additional information: Dysfunctional Uterine Bleeding Bacterial Vaginosis (BV)(Electronically signed by Vamsi Novoa, Physician 04/27/2019 08:06) Name Value Range Interpretation Code Description Data Corrie rce(s) Supporting Document(s) ID Date Data Source [id number] 04/26/2019 04:04:00 PM [facility] 1 Clinical Report - Nurses [facility] Emergency Department [address] [place] [address] Phone #: [phone] nse- [phone] 04/26/2019 15:25 Patient: NERY WAN Sex: F : 1990 Age: 29yTRIAGEArrived by private vehicle. Historian: patient.Acuity: LEVEL 3.Chief Complaint: VAGINAL BLEED and ABDOMINAL PAIN.Onset. (1 weeks ago). ( Pt states she was taken to [facility] 3 days ago for abdominal pain along with vaginalbleeding, she was worked up and told per her OBGYN that her bladder is 3 times larger than normal andhas bleeding outside of the bladder, she voices the vaginal bleeding continues today and voices 6 pads perhour).Treatment ARBORIST REPRESENTATIVE:Seen within the last 72 hours at another facility; seen for similar symptoms; sonogram done; CT done; labsdone- CBC; treatment- pain medication.SEPSIS SCREEN: Heart rate greater than 90.LILY COMA SCORE: 15- eyes open- spontaneous (4); best verbal response- oriented (5); bestmotor response- obeys commands (6). --15:54 04/26/19 Wesley Childers RN15:40 04/26/19. BP: 132/84. MAP: 100. HR: 112. RR: 18. O2 saturation: 95% on room air. Temp: 98.6 F(oral). Pain level now: 08/24. --15:54 04/26/19 Wesley Childers RN.Weight: 74.8 kg stated. Height/Length: 64 inches Per Patient. BMI: 28.3. --15:40 04/26/19 Wesley Childers RN.MedicationsKeppra Oral (Tablet 750 mg) 1 tablet, 2x a day. --15:44 04/26/19 Wesley Childers RN LaMICtal Oral (Tablet 200 mg) 1 tablet, 2x a day. --15:44 04/26/19 Wesley Childers RN Amitriptyline HCl Oral (Tablet 25 mg) 1 tablet, daily. --15:45 04/26/19 Wesley Childers RN MiraLax Oral 1 packet, daily. --15:45 04/26/19 Wesley Childers RN Levothyroxine Sodium Oral (Tablet 150 mcg) 1 tablet, daily. --15:45 04/26/19 Wesley Childers RN Bisacodyl Oral 10 mg, as needed. --15:46 04/26/19 Wesley Childers RN Albuterol Sulfate HFA Inhalation 2 puffs, as needed. --15:46 04/26/19 Wesley Childers RN Gabapentin Oral (Capsule 100 mg) 1 capsule, 2x a day. --15:46 04/26/19 Wesley Childers RN metroNIDAZOLE Oral (Tablet 500 mg) 1 tablet, daily (for 7 days, d/c 05/01/2019). --15:47 04/26/19 BRI Doty Nexplanon Subcutaneous. --15:51 04/26/19 Wesley Childers RN.AllergiesFentanyl and Related.(hives) (seizures) --15:47 04/26/19 Wesley Childers RN 2 Clinical Report - Nurses [facility] Emergency Department [address] [place] [address] Phone #: ext- [phone] 04/26/2019 15:25 Patient: NERY WAN Sex: F : 1990 Age: 29yLatex. --15:47 04/26/19 Wesley Childers RNKetamine.(hives, SOB) --15:47 04/26/19 Wesley Childers RN.PROBLEMS:Hodgkin's lymphoma.Abdominal Pain.Asthma.Hypothyroidism. --15:51 04/26/19 Wesley Childers RN.ADDITIONAL SURGERIES:Adenoidectomy.Bone marrow transplant.Heart drained of fluid.Infusaport.Neck tumor.Tympanostomy Tubes. --15:51 04/26/19 Wesley Childers RN.HistoryPAST MEDICAL HX: Immunizations: up-to-date. Uses depo implants.SOCIAL HX: Never smoker. No alcohol use or drug use. She was offered HIV testing but declined andhepatitis C testing but declined. She has not traveled outside the [place]Infectious disease exposure: No infectious disease exposure.SELF HARM ASSESSMENT: Self harm assessment was performed. The patient answered "no" to thequestion(s) "Have you recently felt down, depressed, or hopeless?", "Do you have thoughts of harming orkilling yourself?", "Do you have a plan for harming or killing yourself?", "Have you recently had thoughtsabout harming or killing others?", "Do you have any dangerous items in your possession?", "Have younoticed less interest or pleasure in doing things?", "Are you here because you tried to hurt yourself?" and"Have you ever tried to hurt yourself before today?".ABUSE ASSESSMENT: No report of abuse.NUTRITIONAL RISK ASSESSMENT: The nutritional risk assessment revealed no deficiencies.FUNCTIONAL ASSESSMENT: Functional assessment: no impairments noted.LEARNING NEEDS ASSESSMENT: The learning needs assessment revealed no barriers.FALL RISK ASSESSMENT: Fall risk assessment completed. No risk factors identified.SKIN INTEGRITY ASSESSMENT: Skin integrity risk assessment completed. No skin integrity riskidentified. --15:54 04/26/19 Wesley Childers RN.Interventions 3 Clinical Report - Nurses [facility] Emergency Department [address] [place] [address] Phone #: ext- [phone] 04/26/2019 15:25 [id number] Sex: F : 1990 Age: 29y To waiting room. --15:54 04/26/19 Wesley Childers RN.PHYSICAL KEFPVMAHVN75:13 04/26/19. Ambulatory to room.GENERAL / NEURO / PSYCH: Alert. Oriented X 4.HEENT: Mucous membranes are pink.RESPIRATORY: Respirations not labored. Breath sounds within normal limits.CVS: Normal heart rate and rhythm. Capillary refill less than 2 seconds.GI / : Abdomen soft and nontender. Bowel sounds within normal limits.SKIN: Skin is warm and dry. --17:13 04/26/19 Tacos Sharif R.N.NURSING PROGRESS NOTESReassurance given. Call light placed in reach. Bed placed in low est position. Brakes of bed on.Patient ready for evaluation- ED physician notified. --17:13 04/26/19 Tacos Sharif R.N. Patient gowned. --17:13 04/26/19 Tacos Sharif R.N. Patient ID band checked for patient name and birthdate: patient confirmed. Instructions provided to collect clean catch urine and patient verbalized understanding. Clean catch urine collected; sample sent to lab for urinalysis. Specimen labeled in the presence of the patient. --17:15 04/26/19 Xi Sheffield R.N. 18:15 04/26/19. Patient transported to [facility] by wheelchair with vehicle glass technician. --18:15 04/26/19 Tacos Sharif R.N. 18:15 04/26/19. Reassurance given. Reassessment acuity: LEVEL 3. The patient reports no complaints and she is calm and resting quietly. Overall patient status is improved- she states feels better. GI / : Denies nausea, diarrhea or difficulty with urination. SKIN: Skin is warm and dry. Skin color within normal limits. Two patient identifiers checked. Call light placed in reach. Bed placed in lowest position. Brakes of bed on. --18:16 04/26/19 Tacos Sharif R.N. 18:57 04/26/19. BP: 124/85. MAP: 98. HR: 108. RR: 16. O2 saturation: 98%. --18:57 04/26/19 [place] [id number] 19:03 04/26/19. Patient returned from [facility] by wheelchair with vehicle glass technician. --19:18 04/26/19 Tacos Sharif R.N. Reassurance given. Reassessment acuity: LEVEL 3. The patient reports no complaints, she is calm and resting quietly and she has had no adverse reaction. Overall patient status is improved- she states feels better. GI / : Denies nausea, diarrhea or difficulty with urination. Abdomen nontender. SKIN: Skin is warm and dry. Two patient identifiers checked. Call light placed in reach. Bed placed in lowest position. Brakes of bed on. --19:19 04/26/19 Tacos Sharif R.N.DISPOSITION / DISCHARGE 4 Clinical Report - Nurses [facility] Emergency Department [address] [place] [address] Phone #: [phone] 04/26/2019 15:25 Patient: NERY WAN Sex: F : 1990 Age: 29y 19:40 04/26/19. Departure time: 19:46 04/26/2019. Condition at departure: improved and stable. The goals identified in the patient's plan of care were met. Fall risk assessment completed. No risk factors identified. No learning barriers present. Discharge instructions provided and reviewed with the patient. Reviewed warnings. Reviewed medication(s). Treatments reviewed. Reviewed referral to a software packager and primary care physician. Patient verbalized understanding. Written instructions provided in Kittitian. The patient was discharged by the physician. She was discharged home and accompanied by spouse. She left ambulatory and via private vehicle. Spouse driving. --19:46 04/26/19 Tacos Sharif R.N. 19:33 04/26/19. BP: 116/78. MAP: 90. HR: 99. RR: 16. O2 saturation: 99%. Temp: 97.8 F. Pain level now: 010. --19:46 04/26/19 Tacos Sharif R.N.Locked/Released at 04/26/2019 21:27 by Tacos Sharif R.N. Name Value Range Interpretation Code Description Data Corrie rce(s) Supporting Document(s) ID Date Data Source [id number] 0001 04/26/2019 04:04:00 PM [facility] 1 Clinical Report - Physicians/Mid Levels [facility] Emergency Department [address] [place] [address] Phone #: ext- [phone] 04/26/2019 15:25 Patient: NERY WAN Sex: F : 1990 Age: 29y Time Seen: 17:00 04/26/2019. Arrived- By private vehicle. Historian- patient. Disposition decision: 19:36 04/26/2019.HISTORY OF PRESENT ILLNESS Chief Complaint: PELVIC PAIN and DYSURIA. ABDOMINAL CRAMPS and ABNORMAL BLEEDING Hematuria. This started on and off for a week; Currently almost no bleeding occurring and still present. It was abrupt in onset and has been waxing/waning. The symptoms are described as moderate. Modifying factors- worsened by movement, walking and coughing. The patient has had moderate, crampy abdominal pain. The pain is described as located in the suprapubic region and lower abdomen and abnormal bleeding. She has had moderate, aching, crampy suprapubic pelvic pain, described as "pain". No pain with urination, urinary frequency or urgency of urination. The patient has had hematuria. Does not use control measures. Denies current . Not receiving care. Similar symptoms previously. Patient has had similar symptoms several times (for over a week). Recent medical care: The patient was seen recently at another facility in the emergency department. ( seen at [facility] 3 days ago).REVIEW OF SYSTEMSNo nausea, vomiting, diarrhea, black stools or headache. No fever, chills, anorexia, eye discomfort orsore throat. No cough, difficulty breathing, chest pain, skin rash or enlarged lymph nodes. No joint pain.PAST HISTORYPast history not negative. See nurses notes. Lung disease. Other disease. ( Hodgkin's LymphomaAbdominal painVaginal bleeding - IntermittentAsthmaHypothyroid).SOCIAL HISTORYNever smoker. No alcohol use or drug use. No recent travel.ADDITIONAL NOTESThe nursing notes have been reviewed with agreement regarding the chief complaint, HPI, ROS, PMH andpatient medications and allergies.PHYSICAL EXAMVital Signs: 04/26/2019 15:40 BP: 132/84. MAP: 100. HR: 112. RR: 18. O2 saturation: 95% on room air. 2 Clinical Report - Physicians/Mid Levels [facility] Emergency Department [address] [place] [address] Phone #: ext- [phone] 04/26/2019 15:25 Patient: NERY WAN Sex: F : 1990 Age: 29y Temp: 98.6 F. Pain level now: 08/24. Have been reviewed and appear to be correct. Blood pressure normal. Tachycardic. Respiratory rate normal. Temperature normal. Oxygen saturation normal. Appearance: Alert. Oriented X3. Anxious. Patient in mild distress. In distress. HEENT: Normal external inspection. ENT: Pharynx normal. Neck: Neck supple. CVS: Heart sounds normal. Respiratory: No respiratory distress. Painless inspiration. Breath sounds normal. Chest nontender. Abdomen: Soft and nontender. Bowel sounds normal. No organomegaly. No mass. Back: Normal external inspection. : (Defer to ultrasound). Skin: Skin warm and dry. Normal skin color. No rash. Normal skin turgor. Extremities: Extremities nontender. No lower extremity edema. Neuro: Oriented X 3. Mood/affect normal. No motor deficit. No sensory deficit.LABS, X- RAYS, AND EKGLaboratory Tests: Laboratory tests have been ordered, with results reviewed and considered in themedical decision making process. US TRANSVAGINAL: (HUSSEIN: 04/26/2019 18:39) ( MsgRcvd 04/26/2019 19:10) Final results US ECHO B TRANSVAGINAL REASON FOR PELVIS: irregular vaginal bleeding TRANSPORTATION: AMBULATORY IV? N O2? N STATUS: not ISOLATION N Test Result Flag Units (Reference) [place] [address] ---------NAME--------- NUMBER SEX AGE ADMIT DISC. XRAY# F/C TYPE SOCO Wisdom [id number] F 29 04/26/19 [id number] XBE E/R DATE OF : 1990 M/R# [id number] #: [id number] VT-05 LOCATION: EMERGENCY DEPT TRANSCRIBED: 04/26/19 19:09 IF US TRANSVAGINAL [id number] COMPLETED:04/26/19 19:10 meme [id number] {REASON FOR PELVIS: irregular vaginal bleeding -- PHYSICIAN: JONN SCHAEFER -- -- R A D I O L O G Y R E P O R T -- PATIENT HISTORY: intermittent pelvic pain and irregular vaginal bleeding, , currently on exelon arm contraceptive device, h/o of hodgkins lymphoma [id number], w/bone marrow transplant in 2011 and remission since 2013 EXAM: US Pelvis, Complete. -- CLINICAL HISTORY: Intermittent pelvic pain and irregular vaginal bleeding, , currently on exelon arm contraceptive device, h/o of hodgkins lymphoma 4885-3884, w/bone marrow transplant in 2011 and remission since 2013 -- TECHNIQUE: Transvaginal pelvic ultrasound (complete) with image documentation. -- COMPARISON: Transabdominal pelvic ultrasound earlier the same day. -- -- FINDINGS: -- 3 Clinical Report - Physicians/[facility] Emergency Department [address] [place] [address] Phone #: ext- [phone] 04/26/2019 15:25 Patient: NERY WAN Sex: F : 1990 Age: 29y ENDOMETRIUM: Normal thickness. -- UTERUS/CERVIX: The uterus appears within normal limits in size and position. No uterine fibroid or other mass evident. The cervix is unremarkable. -- RIGHT OVARY: Not seen -- LEFT OVARY: Not seen -- FREE FLUID: No free fluid. -- -- IMPRESSIONS: -- 1. Normal appearance of the uterus and endometrium. 2. Ovaries are not seen. 3. No free fluid. -- -- Electronically Signed By: Guido Covington MD , Radiologist Date/Time: 04/26/19 19:09US Pelvis: (HUSSEIN: 04/26/2019 18:30) ( MsgRcvd 04/26/2019 18:37) CanceledReason(s): Abnormal BleedingReason(s): Abnormal BleedingTRANSPORTATION: WC IV? O2? Oxygen?(No) Room: ED: No CMTS: TransvaginalCT ABD PEL W/O Oral W/O IV Contrast: (HUSSEIN: 04/26/2019 18:08) ( MsgRcvd 04/26/2019 19:15)Final resultsCT ABDReason(s): Abdominal PainTRANSPORTATION: WC IV? IV?(Yes) O2? Oxygen?(No) Ro: No Exam CT ABD //T// PELV W/O [place] [address] ---------NAME--------- NUMBER SEX AGE ADMIT DISC. XRAY# F/C TYPE SOCO Wisdom [id number] F 29 04/26/19 [id number] XBE E/R DATE OF : 1990 M/R# [id number] #: [id number] VT-05 LOCATION: EMERGENCY DEPT TRANSCRIBED: 04/26/19 19:[address] ABD //T// PELV W/[place] ORAL W/[place] [id number] COMPLETED:04/26/19 19:15 meme [id number] Reason(s): Abdominal Pain Pelvic Pain PHYSICIAN: JONN BR R A D I O L O G Y R E P O R T ===== PATIENT HISTORY: CT ABD / SAGITTAL (DICOM Hx) EXAM: CT Abdomen and Pelvis Without IV contrast CLINICAL HISTORY: CT ABD TECHNIQUE: Axial computed tomography images of the abdomen and pelvis without intravenous contrast. CONTRAST: No IV contrast. COMPARISON: None provided. FINDINGS: 4 Clinical Report - Physicians/Mid [facility] Emergency Department [address] [place] [address] Phone #: ext- [phone] 04/26/2019 15:25 Patient: NERY WAN Sex: F : 1990 Age: 29y LUNG BASES: The lung bases appear clear. No pleural effusions are seen. LIVER: Unremarkable. GALLBLADDER AND BILE DUCTS: The gallbladder appears within normal limits. No radioopaque gallstones are seen. No biliary ductal dilatation is evident. PANCREAS: Unremarkable. SPLEEN: Unremarkable. ADRENAL GLANDS: Unremarkable. KIDNEYS, URETERS, AND BLADDER: The kidneys appear within normal limits. There is no hydronephrosis or hydroureter. No urinary calculi are seen. STOMACH AND BOWEL: Unremarkable appearance of the stomach and bowel. No evidence of bowel obstruction. No evidence suggesting enteritis or colitis. APPENDIX: No evidence of acute appendicitis on CT examination. PERITONEUM: No free fluid. No free air. LYMPH NODES: No lymphadenopathy is evident. REPRODUCTIVE: Unremarkable as visualized. VASCULATURE: No evidence of abdominal aortic aneurysm. BONES: No aggressive appearing osseous lesion. No acute osseous pathology evident. IMPRESSIONS: 1. No obstructive kidney stone or gallstone. 2. No bowel obstruction 3. Moderately heavy fecal stool pattern ascending and transverse colon question constipation. Clinical correlation suggested. 4. Normal appendix While performing the above CT examination, radiation dose reduction was accomplished utilizing automated exposure control, adjusting of the mA and kV based on the patient's body size and/or the use of imperative reconstructive techniques. Electronically Signed By: Guido Covington MD , Radiologist Date/Time: 04/26/19 19:14CT Abd PEL W/ IV Contrast Only: (HUSSEIN: 04/26/2019 17:56) ( [facility] [place] 04/26/2019 18:08) CanceledReason(s): Abdominal PainReason(s): Abdominal PainTRANSPORTATION: WC IV? IV?(Yes) O2? Oxygen?(No) Ro: No CMTS: Hematuria / Pelvic painPTT: (HUSSEIN: 04/26/2019 18:05) ( [facility] [place] 04/26[place] 18:42) Final results Test Result Flag Units (Reference) PTT 26.1 SECONDS (24.8 - 36.7)PT/INR: (HUSSEIN: 04/26/2019 18:05) ( MsgRcvd 04/26/2019 18:42) Final results Test Result Flag Units (Reference) PROTIME 12.4 SECONDS (11.0 - 15.5) INR 0.91 L (0.93 - 1.23) 5 Clinical Report - Physicians/Mid Levels [facility] Emergency Department [address] [place] [address] Phone #: ext- [phone] 04/26/2019 15:25 Patient: NERY WAN Sex: F : 1990 Age: 29y \\BLDo\\INR INTERPRETATION\\BLDx\\ Therapeutic range for Coumadin andrelated oral anticoagulants. -International Normalized Ratio (INR): 2.0 - 3.0 for VenousThrombosis, Pulmonary Embolus, Tissue heart valves, Acute CA, Atrial Fibrillation, Valvular heartdisease and recurrent Systemic Embolism. - International Normalized Ratio (INR): 2.5 - 3.5for Mechanical Prosthetic valve.Lipase: (HUSSEIN: 04/26/2019 18:05) ( MsgRcvd 04/26/2019 18:59) Final results Test Result Flag Units (Reference) LIPASE 33 U/L (13 - 60)CBC w Diff: (HUSSEIN: 04/26/2019 18:05) ( MsgRcvd 04/26/2019 18:31) Final results Test Result Flag Units (Reference) CBC W/AUTOMATED DIFF COMPLETE BLOOD COUNT WBC 5.8 10/uL (4.2 - 11.0) RBC 4.31 10/uL (4.20 - 5.40) HEMOGLOBIN 12.2 g/dL (12.0 - 16.0) HEMATOCRIT 37.8 % (37.0 - 47.0) MCV 87.7 fL (81.0 - 101) MCH 28.3 pg (27.0 - 34.0) MCHC 32.3 g/dL (31.0 - 36.0) RDW 12.1 % (11.5 - 14.5) PLATELETS 195 10/uL (150 - 450) MPV 9.2 fL (7.4 - 10.4) NEUT 56.2 % (37.0 - 80.0) LYMPH 36.0 % (25.0 - 40.0) MONO 6.0 % (3.0 - 8.0) EOS 1.2 % (0.0 - 7.0) BASO 0.3 % (0.0 - 2.5) %IG 0.3 H % (0.0 - 0.0) %NRBC 0.0 % (0.0 - 0.0) #NEUT 3.28 10/uL (2.00 - 6.90) #LYMPH 2.10 10/uL (0.60 - 3.40) #MONO 0.35 10/uL (0.00 - 0.90) #EOS 0.07 10/uL (0.00 - 0.70) #BASO 0.02 10/uL (0.00 - 0.20) #IG 0.02 10/uL (0.00 - 0.10) #NRBC 0.00 10/uL (0.00 - 0.00) MANUAL DIFF NOT INDICATED RBC MORPH NOT INDICATEDCMP: (HUSSEIN: 04/26/2019 18:05) ( MsgRcvd 04/26/2019 18:59) Final results Test Result Flag Units (Reference) COMPREHENSIVE METABOLIC PANEL COMPREHENSIVE METABOLIC PANEL SODIUM 139 mEq/L (134 - 153) POTASSIUM 4.2 mEq/L (3.6 - 5.0) CHLORIDE 104 mEq/L (98 - 107) CO2 26 MEQ/L (22 - 30) GLUCOSE 86 MG/DL (65 - 110) BUN 19 MG/DL (7 - 21) CREATININE 0.9 MG/DL (0.7 - 1.5) BUN/CREAT 21 (8 - 27) TOTAL PROTEIN 7.1 G/DL (6.3 - 8.2) ALBUMIN 4.5 G/DL (3.9 - 5.0) GLOBULIN 2.6 GM/DL (2.4 - 3.2) A/G RATIO 1.7 (0.8 - 2.0) CALCIUM 9.6 MG/DL (8.4 - 10.2) TOTAL BILI 0.7 MG/DL (0.2 - 1.3) ALKALINE PHOS 52 U/L (38 - 126) SGOT/AST 13 U/L (5 - 40) SGPT/ALT 10 U/L (7 - 56) ANION GAP 9.0 mmol/L (8.0 - 16.0) AGE 29 yrs 6 Clinical Report - Physicians/Mid Levels [facility] Emergency Department [address] [place] [address] Phone #: ext- [phone] 04/26/2019 15:25 Patient: NERY WAN Sex: F : 1990 Age: 29y NON-AA GFR >60 mL/min AFR AMER GFR >60 mL/min Male GFR Interprentation 20-49 yrs >60 mL/min Csooea26-01 yrs >56 mL/min Normal 60-69 yrs >49 mL/min Normal 70-79yrs>42 mL/min Normal 80 and above >35 mL/min Normal Female GFRInterpretation 20-39 yrs >60 mL/min Normal 40-49 yrs >58 mL/minNormal 50-59 yrs > 51 mL/min Normal 60-69 yrs >45 mL/min Rkeugh00-80 yrs >39 mL/min Normal 80 and above >32 mL/min NormalCPK: (HUSSEIN: 04/26/2019 18:05) ( MsgRcvd 04/26/2019 18:59) Final results Test Result Flag Units (Reference) CPK 58 U/L (30 - 170)US Pelvis: (HUSSEIN: 04/26/2019 17:55) ( MsgRcvd 04/26/2019 19:11) Final resultsUS PELVICReason(s): Abnormal BleedingTRANSPORTATION: WC IV? O2? Oxygen?(No) Room: ED: [place] [address] ---------NAME--------- NUMBER SEX AGE ADMIT DISC. XRAY# F/C TYPE SOCO Wisdom [id number] F 29 04/26/19 [id number] XBE E/R DATE OF : 1990 M/R# [id number] #: [id number] VT-05 LOCATION: EMERGENCY DEPT TRANSCRIBED: 04/26/19 19:10 IF US PELVIC [id number] COMPLETED:04/26/19 19:11 meme [id number] Reason(s): Abnormal Bleeding PHYSICIAN: JONN BR R A D I O L O G Y R E P O R T PATIENT HISTORY: intermittent pelvic pain and irregular vaginal bleeding, , currently on exelon arm contraceptive device, h/o of hodgkins lymphoma [id number], w/bone marrow transplant in 2011 and remission since 2013 EXAM: US Pelvis, Complete. CLINICAL HISTORY: Intermittent pelvic pain and irregular vaginal bleeding, , currently on exelon arm contraceptive device, h/o of hodgkins lymphoma [id number], w/bone marrow transplant in 2011 and remission since 2013 TECHNIQUE: Transabdominal pelvic ultrasound (complete) with image documentation. COMPARISON: None provided. FINDINGS: ENDOMETRIUM: Normal thickness. UTERUS/CERVIX: The uterus is not seen. RIGHT OVARY: Not seen LEFT OVARY: Not seen. FREE FLUID: No free fluid. Bladder: No filling defect or bladder wall mass. IMPRESSIONS: 7 Clinical Report - Physicians/Mid Levels [facility] Emergency Department [address] [place] [address] Phone #: ext- [phone] 04/26/2019 15:25 Patient: NERY WAN Sex: F : 1990 Age: 29y 1. Non-visualization of the uterus and ovaries. 2. Normal appearance of the bladder. No filling defect or bladder wall mass. Electronically Signed By: Guido Covington MD , Radiologist Date/Time: 04/26/19 19:10 Urinalysis: (HUSSEIN: 04/26/2019 17:00) ( MsgRcvd 04/26/2019 17:33) Final results Test Result Flag Units (Reference) URINALYSIS URINALYSIS SOURCE Clean Catch COLOR yellow (NORMAL: Yello CLARITY clear (NORMAL: Clear SPEC GRAVITY 1.030 (1.001 - 1.030 pH 5 (5 - 9) GLUCOSE NORM (NORMAL: Negat BILIRUBIN NEG (NORMAL: Negat KETONE 5 A (NORMAL: Negat PROTEIN 15 (NORMAL: Negat NITRITE NEG (NORMAL: Negat BLOOD 25 A (NORMAL: Negat LEUK EST 25 (NORMAL: Negat UROBILINOGEN NOR (less than 1.0 MICROSCOPIC See Below WBC 1 - 3 (NO RMAL: NONE RBC 1 - 3 (NORMAL: NONE EPITHELIAL FEW (NORMAL: NONE MUCOUS Trace (NORMAL: NONE . Note - Tests: (Transvaginal ultrasound - Unremarkable uterus and endometrium - Ovaries not seen CT abdomen / pelvis - Mild constipation.).PROGRESS AND PROCEDURESCourse of Care: :Apr 26 2019. Patient is stable. Symptoms much better. 19:33 Apr 26 2019. Pt. already being treated for bacterial vaginosis by her software packager and she is on an antibiotic. Labs and U/A are unremarkable. CT and ultrasounds are also unremarkable. She says she has almost no bleeding at all. Will discharge. Critical care performed (120 minutes). Time is exclusive of separately billable procedures. Time includes: direct patient care, patient reassessment, interpretation of data (laboratory data and pulse oximetry), review of patient's medical records and documentation of patient care- see progress notes. Procedures included in critical care time: peripheral IV placement and phlebotomy- see progress notes. Disposition: Discharged home in good and improved condition (:37 Apr 26 2019). Condition: good.CLINICAL IMPRESSION Mild pre-menopausal dysfunctional uterine bleeding. (Minimal). Vaginal discharge (Mild). 8 Clinical Report - Physicians/Mid Levels [facility] Emergency Department [address] [place] [address] Phone #: ext- [phone] 04/26/2019 15:25 Patient: NERY WAN Sex: F : 1990 Age: 29yINSTRUCTIONS Drink plenty of fluids. Warnings: GENERAL WARNINGS: Return or contact your physician immediately if your condition worsens or changes unexpectedly, if not improving as expected, or if other problems arise. Follow-up: Follow up with a software packager if not better. Call for an appointment. Reason for referral: evaluation, treatment and Dysfunction uterine bleeding / Cystitis / Bacterial vaginosis. Understanding of the discharge instructions verbalized by patient.(Electronically signed by Vamsi Novoa, Physician 04/27/2019 08:06) Name Value Range Interpretation Code Description Data Corrie rce(s) Supporting Document(s) ID Date Data Source [id number] 04/26/2019 08:43:00 PM [facility] [address] [place] [address] ---------NAME--------- NUMBER SEX AGE ADMIT DISC. XRAY# F/C TYPE SOCO Wisdom [id number] F 29 04/26/19 [id number] XBE E/R DATE OF : 1990 M/R# [id number] #: [id number] VT-05 LOCATION: EMERGENCY DEPT TRANSCRIBED: 04/26/19 19:[address] ABD //T// PELV W/O ORAL W/[place] [id number] COMPLETED:04/26/19 19:15 meme [id number] Reason(s): Abdominal Pain Pelvic Pain PHYSICIAN: OJNN BR = R A D I O L O G Y R E P O R T PATIENT HISTORY:CT ABD / SAGITTAL (DICOM Hx)EXAM: CT Abdomen and Pelvis Without IV contrastCLINICAL HISTORY: CT ABDTECHNIQUE: Axial computed tomography images of the abdomen and pelvis withoutintravenous contrast.CONTRAST: No IV contrast.COMPARISON: None provided.FINDINGS:LUNG BASES: The lung bases appear clear. No pleural effusions are seen.LIVER: Unremarkable.GALLBLADDER AND BILE DUCTS: The gallbladder appears within normal limits. Noradioopaque gallstones are seen. No biliary ductal dilatation is evident.PANCREAS: Unremarkable.SPLEEN: Unremarkable.ADRENAL GLANDS: Unremarkable.KIDNEYS, URETERS, AND BLADDER: The kidneys appear within normal limits. There isno hydronephrosis or hydroureter. No urinary calculi are seen.STOMACH AND BOWEL: Unremarkable appearance of the stomach and bowel. No evidenceof bowel obstruction. No evidence suggesting enteritis or colitis.APPENDIX: No evidence of acute appendicitis on CT examination.PERITONEUM: No free fluid. No free air.LYMPH NODES: No lymphad enopathy is evident.REPRODUCTIVE: Unremarkable as visualized.VASCULATURE: No evidence of abdominal aortic aneurysm.BONES: No aggressive appearing osseous lesion. No acute osseous pathologyevident.IMPRESSIONS:1. No obstructive kidney stone or gallstone.2. No bowel obstruction3. Moderately heavy fecal stool pattern ascending and transverse colon questionconstipation. Clinical correlation suggested.4. Normal appendixWhile performing the above CT examination, radiation dose reduction wasaccomplished utilizing automated exposure control, adjusting of the mA and kVbased on the patient's body size and /or the use of imperative reconstructivetechniques.Electronically Signed By:Guido Covington MD , RadiologistDate/Time: 04/26/19 19:14ADDENDUM UPDATED REPORT TRANSCRIBED: 04/26/19 20:43 IFPATIENT HISTORY:Abd/pelvic pain, DLP 765.8 mGy*cm / SAGITTAL (DICOM Hx)IMPRESSIONS:Addendum: Dose 765.8.While performing the above CT examination, radiation dose reduction wasaccomplished utilizing automated exposure control, adjusting of the mA and kVbased on the patient's body size and/or the use of imperative reconstructivetechniques. Name Value Range Interpretation Code Description Data Corrie rce(s) Supporting Document(s) ID Date Data Source [id number] 04/26/2019 07:10:00 PM [facility] [address] [place] [address] ---------NAME--------- NUMBER SEX AGE ADMIT DISC. XRAY# F/C TYPE SOCO Wisdom [id number] F 29 04/26/19 [id number] XBE E/R DATE OF : 1990 M/R# [id number] #: [id number] VT-05 LOCATION: EMERGENCY DEPT TRANSCRIBED: 04/26/19 19:10 IF US PELVIC [id number] COMPLETED:04/26/19 19:11 meme [id number] Reason(s): Abnormal Bleeding PHYSICIAN: JONN BR======== R A D I O L O G Y R E P O R T =PATIENT HISTORY:intermittent pelvic pain and irregular vaginal bleeding, , currently onexelon arm contraceptive device, h/o of hodgkins lymphoma [id number], w/bonemarrow transplant in 2011 and remission since 2013EXAM: US Pelvis, Complete.CLINICAL HISTORY: Intermittent pelvic pain and irregular vaginal bleeding, ,currently on exelon arm contraceptive device, h/o of hodgkins [id number], w/bone marrow transplant in 2011 and remission since 2013TECHNIQUE: Transabdominal pelvic ultrasound (complete) with image documentation.COMPARISON: None provided.FINDINGS:ENDOMETRIUM: Normal thickness. UTERUS/CERVIX: The uterus is not seen.RIGHT OVARY: Not seenLEFT OVARY: Not seen.FREE FLUID: No free fluid.Bladder: No filling defect or bladder wall mass.IMPRESSIONS:1. Non-visualization of the uterus and ovaries.2. Normal appearance of the bladder. No filling defect or bladder wall mass.Electronically Signed By:Guido Covington MD , RadiologistDate/Time: 04/26/19 19:10 Name Value Range Interpretation Code Description Data Corrie rce(s) Supporting Document(s) ID Date Data Source [id number] 04/26/2019 07:09:00 PM [facility] [address] [place] [address] ---------NAME--------- NUMBER SEX AGE ADMIT DISC. XRAY# F/C TYPE SOCO Wisdom [id number] F 29 04/26/19 [id number] XBE E/R DATE OF : 1990 M/R# [id number] PH#: [phone] VT-05 LOCATION: EMERGENCY DEPT TRANSCRIBED: 04/26/19 19:09 IF US TRANSVAGINAL [id number] COMPLETED:04/26/19 19:10 meme [id number] {REASON FOR PELVIS: irregular vaginal bleeding PHYSICIAN: JONN BR = R A D I O L O G Y R E P O R T PATIENT HISTORY:intermittent pelvic pain and irregular vaginal bleeding, , currently onexelon arm contraceptive device, h/o of hodgkins lymphoma [id number], w/bonemarrow transplant in 2011 and remission since 2013EXAM: US Pelvis, Complete.CLINICAL HISTORY: Intermittent pelvic pain and irregular vaginal bleeding, ,currently on exelon arm contraceptive device, h/o of hodgkins [id number], w/bone marrow transplant in 2011 and remission since 2013TECHNIQUE: Transvaginal pelvic ultrasound (complete) with image documentation.COMPARISON: Transabdominal pelvic ultrasound earlier the same day.FINDINGS:ENDOMETRIUM: Normal thickness.UTERUS/CERVIX: The uterus appears within normal limits in size and position. Nouterine fibroid or other mass evident. The cervix is unremarkable.RIGHT OVARY: Not seenLEFT OVARY: Not seenFREE FLUID: No free fluid.IMPRESSIONS:1. Normal appearance of the uterus and endometrium.2. Ovaries are not seen.3. No free fluid.Electronically Signed By:Guido Covington MD , RadiologistDate/Time: 04/26/19 19:09 Name Value Range Interpretation Code Description Data Corrie rce(s) Supporting Document(s) ID Date Data Source [id number] 05/02/2019 11:39:00 AM [facility] [address] Name Value Range Interpretation Code Description Data Corrie rce(s) Supporting Document(s) Bacteria identified in Blood by Culture [facility] NO GROWTH AFTER 5 DAYS ID Date Data Source [id number] 05/02/2019 09:18:00 PM [facility] Name Value Range Interpretation Code Description Data Corrie rce(s) Supporting Document(s) CULTURE BLOOD [facility] _CULTURE BLOOD_ TEST [place] [address] CLIA# [id number] SEE SCANNED REPORT{ PRELIM ID Date Data Source [id number] 05/02/2019 09:18:00 PM [facility] Name Value Range Interpretation Code Description Data Corrie rce(s) Supporting Document(s) CULTURE BLOOD [facility] spital _CULTURE BLOOD_ TEST [place] [address] [facility]# [id number] SEE SCANNED REPORT{ PRELIM ID Date Data Source [id number] 04/26/2019 06:59:00 PM [facility] Name Value Range Interpretation Code Description Data Corrie rce(s) Supporting Document(s) Creatine kinase [Enzymatic activity/volume] in Serum or Plasma 5 8 U/L 30 - 170 [facility] ID Date Data Source [id number] 04/26/2019 06:59:00 PM EST [facility] Name Value Range Interpretation Code Description Data Corrie rce(s) Supporting Document(s) COMPREHENSIVE METABOLIC PANEL [facility] COMPREHENSIVE METABOLIC PANEL Sodium [Moles/volume] in Serum or Plasma 139 mEq/L 134 - 153 [facility] Potassium [Moles/volume] in Serum or Plasma 4.2 mEq/L 3.6 - 5.0 [facility] Chloride [Moles/volume] in Serum or Plasma 104 mEq/L 98 - 107 [facility] Carbon dioxide, total [Moles/volume] in Serum or Plasma 26 MEQ/L 22 - 30 [facility] Glucose [Mass/volume] in Serum or Plasma 86 MG/DL 65 - 110 [facility] BUN 19 MG/DL 7 - 21 [facility] al Creatinine [Mass/volume] in Serum or Plasma 0.9 MG/DL 0.7 - 1.5 [facility] BUN/CREAT 21 8 - 27 [facility] Protein [Mass/volume] in Serum or Plasma 7.1 G/DL 6.3 - 8.2 [facility] Albumin [Mass/volume] in Serum or Plasma 4.5 G/DL 3.9 - 5.0 [facility] Globulin [Mass/volume] in Serum by calculation 2.6 GM/DL 2.4 - 3.2 [facility] A/G RATIO 1.7 0.8 - 2.0 [facility] Calcium [Mass/volume] in Serum or Plasma 9.6 MG/DL 8.4 - 10.2 [facility] Bilirubin.total [Mass/volume] in Serum or Plasma 0.7 MG/DL 0.2 - 1.3 [facility] Alkaline phosphatase [Enzymatic activity/volume] in Serum or Plasma 52 U/L 38 - 126 [facility] Aspartate aminotransferase [Enzymatic activity/volume] in Serum or Plasma 13 U/L 5 - 40 [facility] Alanine aminotransferase [Enzymatic activity/volume] in Seru m or Plasma 10 U/L 7 - 56 [facility] Anion gap 3 in Serum or Plasma 9.0 mmol/L 8.0 - 16.0 [facility] AGE 29 yrs [facility] al NON-AA GFR >60 mL/min [facility] Hosp ital AFR AMER GFR >60 mL/min [facility] Ho spital Male GFR In terprentation 20-49 yrs >60 mL/min Normal 50-59 yrs >56 mL/min Normal 60-69 yrs >49 mL/min Normal 70-79yrs >42 mL/min Normal 80 and above >35 mL/min Normal Female GFR Interpretation 20-39 yrs >60 mL/min Normal 40-49 yrs >58 mL/min Normal 50-59 yrs >51 mL/min Normal 60-69 yrs >45 mL/min Normal 70-79 yrs >39 mL/min Normal 80 and above >32 mL/min Normal ID Date Data Source [id number] 04/26/2019 06:59:00 PM [facility] Name Value Range Interpretation Code Description Data Corrie rce(s) Supporting Document(s) Lipase [Enzymatic activity/volume] in Serum or Plasma 33 U/L 13 - 60 [facility] ID Date Data Source [id number] 04/26/2019 06:42:00 PM [facility] Name Value Range Interpretation Code Description Data Corrie rce(s) Supporting Document(s) aPTT in Blood by Coagulation assay 26.1 SECONDS 24.8 - 36.7 [facility] ID Date Data Source [id number] 04/26/2019 06:42:00 PM [facility] Value Range Interpretation Code Description Data Corrie rce(s) Supporting Document(s) Prothrombin time (PT) 12.4 SECONDS 11.0 - 15.5 [facility] INR in Platelet poor plasma by Coagulation assay 0.91 0.93 - 1. 23 L [facility] \\BLDo\\INR INTERPRETATION\\BLDx\\ Therapeutic range for Coumadin and related oral anticoagulants. - International Normalized Ratio (INR): 2.0 - 3.0 for Venous Thrombosis, Pulmonary Embolus, Tissue heart valves, Acute CA, Atrial Fibrillation, Valvular heart disease and recurrent Systemic Embolism. -International Normalized Ratio (INR): 2.5 - 3.5 for Mechanical Prosthetic valve. ID Date Data Source [id number] 04/26/2019 06:31:00 PM EST [facility] Name Value Range Interpretation Code Description Data Corrie rce(s) Supporting Document(s) CBC W/AUTOMATED DIFF [facility] COMPLETE BLOOD COUNT Leukocytes [#/volume] in Blood by Automated count 5.8 10^3/uL 4.2 - 1 1.0 [facility] Erythrocytes [#/volume] in Blood by Automated count 4.31 10^6/uL 4. 20 - 5.40 [facility] Hemoglobin [Mass/volume] in Blood 12.2 g/dL 12.0 - 16.0 [facility] Hematocrit [Volume Fraction] of Blood by Automated count 37.8 % 3 7.0 - 47.0 [facility] Erythrocyte mean corpuscular volume [Entitic volume] by Auto mated count 87.7 fL 81.0 - 101 [facility] Erythrocyte mean corpuscular hemoglobin [Entitic mass] by Automated count 28.3 pg 27.0 - 34.0 [facility] Erythrocyte mean corpuscular hemoglobin concentration [Mass/volume] by Automated count 32.3 g/dL 31.0 - 36.0 [facility] Erythrocyte distribution width [Ratio] by Automated count 12.1 % 11.5 - 14.5 [facility] Platelets [#/volume] in Blood by Automated count 195 10^3/uL 150 - 45 0 [facility] Platelet mean volume [Entitic volume] in Blood by Automated count 9.2 fL 7.4 - 10.4 [facility] Neutrophils/100 leukocytes in Blood by Automated count 56.2 % 37. 0 - 80.0 [facility] Lymphocytes/100 leukocytes in Blood by Manual count 36.0 % 25.0 - 40.0 [facility] Monocytes/100 leukocytes in Blood by Automated count 6.0 % 3.0 - 8.0 [facility] Eosinophils/100 leukocytes in Blood by Automated count 1.2 % 0.0 - 7.0 [facility] Basophils/100 leukocytes in Blood by Automated count 0.3 % 0.0 - 2.5 [facility] %IG 0.3 % 0.0 - 0.0 H [facility] Hospit al %NRBC 0.0 % 0.0 - 0.0 [facility] al Neutrophils [#/volume] in Blood by Automated count 3.28 10^3/uL 2.00 - 6.90 [facility] Lymphocytes [#/volume] in Blood by Automated count 2.10 10^3/uL 0.60 - 3.40 [facility] Monocytes [#/volume] in Blood by Automated count 0.35 10^3/uL 0.00 - 0.90 [facility] Eosinophils [#/volume] in Blood by Automated count 0.07 10^3/uL 0.00 - 0.70 [facility] Basophils [#/volume] in Blood by Automated count 0.02 10^3/uL 0.00 - 0.20 [facility] #IG 0.02 10^3/uL 0.00 - 0.10 [facility] H ospital #NRBC 0.00 10^3/uL 0.00 - 0.00 [facility] ospital MANUAL DIFF NOT INDICATED [facility] RBC MORPH NOT INDICATED [facility] spital ID Date Data Source [id number] 04/26/2019 05:32:00 PM EST [facility] Name Value Range Interpretation Code Description Data Corrie rce(s) Supporting Document(s) [facility] COLOR yellow NORMAL: Yellow [facility] ospital CLARITY clear NORMAL: Clear [facility] spital Specific gravity of Urine by Test strip 1.030 1.001 - 1.030 [facility] pH 5 5 - 9 [facility] al Glucose [Mass/volume] in Urine by Test strip NORM NORMAL: Negat sy [facility] Bilirubin.total [Presence] in Urine by Test strip NEG NORMAL: Negative [facility] Ketones [Presence] in Urine by Test strip 5 NORMAL: Negative [facility] Protein [Mass/volume] in Urine by Test strip 15 NORMAL: Negat sy [facility] Nitrite [Presence] in Urine by Test strip NEG NORMAL: Negative [facility] BLOOD 25 NORMAL: Negative [facility] Leukocyte esterase [Presence] in Urine by Test strip 25 STORMY L: Negative [facility] Urobilinogen [Mass/volume] in Urine by Test strip NOR less sapphire n 1.0 mg/dL [facility] MICROSCOPIC See Below [facility] ital WBC 1 - 3 NORMAL: NONE SEEN [facility] Erythrocytes [#/volume] in Urine by Test strip 1 - 3 NORMAL: NON E SEEN [facility] EPITHELIAL FEW NORMAL: NONE SEEN [facility] Mucus [Presence] in Urine sediment by Light microscopy Trace NORMAL: NONE SEEN [facility] ID Date Data Source [id number] 04/25/2019 10:48:52 PM [facility] Name Value Range Interpretation Code Description Data Corrie rce(s) Supporting Document(s) Progress Note [facility] [id number] lbm [file] [id number] ID Date Data Source [id number] 04/25/2019 10:48:47 PM [facility] Name Value Range Interpretation Code Description Data Corrie rce(s) Supporting Document(s) Progress Note [facility] [id number] lbm [file] [id number] ID Date Data Source [id number] 04/22/2019 02:18:59 PM [facility] Name Value Range Interpretation Code Description Data Corrie e(s) Supporting Document(s) Leukocytes [#/volume] in Blood by Automated count 6.9 10*3/uL 4-10 [facility] Erythrocytes [#/volume] in Blood by Automated count 4.88 10*6/uL 4.1- 5.3 [facility] Hemoglobin [Mass/volume] in Blood 14.1 g/dL 11.5-15.5 [facility] Hematocrit [Volume Fraction] of Blood by Automated count 42.9 % 3 6-45 [facility] Erythrocyte mean corpuscular volume [Entitic volume] by Auto mated count 88.0 fL 80-96 [facility] Erythrocyte mean corpuscular hemoglobin [Entitic mass] by Automated count 29.0 pg 27-33 [facility] Erythrocyte mean corpuscular hemoglobin concentration [Mass/volume] by Automated count 33.0 g/dL 32.0-[facility].0 [facility] E[facility] distribution width [Ratio] by Automated count 13.1 % 11.5-14.5 [facility] Platelets [#/volume] in Blood by Automated count 234 10*3/uL 150-400 [facility] Differential cell count method - Blood [facility] Neutrophils/100 leukocytes in Blood by Automated count 71 % [facility] Lymphocytes/100 leukocytes in Blood by Automated count 22 % [facility] Monocytes/100 leukocytes in Blood by Automated count 5 % [facility] Eosinophils/100 leukocytes in Blood by Automated count 1 % [facility] Basophils/100 leukocytes in Blood by Automated count 1 % [facility] Neutrophils [#/volume] in Blood by Automated count 4.90 10*3/uL 1.8-7 .0 [facility] Lymphocytes [#/volume] in Blood by Automated count 1.54 10*3/uL 1.2-4 .0 [facility] Monocytes [#/volume] in Blood by Automated count 0.34 10*3/uL 0-0.8 [facility] Eosinophils [#/volume] in Blood by Automated count 0.06 10*3/uL 0-0.5 [facility] Basophils [#/volume] in Blood by Automated count 0.05 10*3/uL 0-0.2 [facility] Nucleated erythrocytes/100 leukocytes [Ratio] in Blood by Automated count 0 /100{WBCs} 0-0 [facility] ID Date Data Source [id number] 04/22/2019 03:10:46 PM [facility] Name Value Range Interpretation Code Description Data Corrie rce(s) Supporting Document(s) Lactate dehydrogenase [Enzymatic activit y/volume] in Serum or Plasma by Lactate to pyruvate reaction 172 U/L 122-214 [facility] ID Date Data Source [id number] 04/22/2019 03:10:46 PM [facility] Name Value Range Interpretation Code Description Data Corrie rce(s) Supporting Document(s) Albumin [Mass/volume] in Serum or Plasma by Bromocresol green (BCG) dye binding method 4.6 g/dL 3.5-5.2 [facility] al Bilirubin.total [Mass/volume] in Serum or Plasma 0.3 mg/dL <1.2 [facility] Calcium [Mass/volume] in Serum or Plasma 9.2 mg/dL 8.6-10.0 [facility] Chloride [Moles/volume] in Serum or Plasma 102 mmol/L 98-107 [facility] Creatinine [Mass/volume] in Serum or Plasma 0.86 mg/dL 0.50-0.90 [facility] Glucose [Mass/volume] in Serum or Plasma 98 mg/dL 70-140 [facility] Alkaline phosphatase [Enzymatic activity/volume] in Serum or Plasma 59 U/L 35-104 [facility] Potassium [Moles/volume] in Serum or Plasma 4.1 mmol/L 3.4-5.1 [facility] Protein [Mass/volume] in Serum or Plasma 7.5 g/dL 6.4-8.3 [facility] Sodium [Moles/volume] in Serum or Plasma 139 mmol/L 136-145 [facility] Aspartate aminotransferase [Enzymatic activity/volume] in Serum or Plasma 15 U/L <32 [facility] Urea nitrogen [Mass/volume] in Serum or Plasma 17 mg/dL 6-20 [facility] Osmolality of Serum or Plasma by calculation 289 mosm/kg 275-300 [facility] Creatinine/Urea nitrogen [Mass Ratio] in Serum or Plasma 19 [facility] Bicarbonate [Moles/volume] in Serum 22 mmol/L 22-29 [facility] Alanine aminotransferase [Enzymatic activity/volume] in Seru m or Plasma 11 U/L <33 [facility] Anion gap 3 in Serum or Plasma 14 mmol/L 8-15 [facility] Albumin/Globulin [Mass Ratio] in Serum or Plasma 1.6 [facility] Glomerular filtration rate/1.73 sq M pre dicted among non-blacks [Volume Rate/Area] in Serum or Plasma by Creatinine-based formula (MDRD) >6 0 [facility] Glomerular filtration rate/1.73 sq M pre dicted among blacks [Volume Rate/Area] in Serum or Plasma by Creatinine-based formula (MDRD) >60 [facility] ID Date Data Source [id number] 03/13/2019 11:26:00 AM EST [facility] ([employer]) Name Value Range Interpretation Code Description Data Corrie rce(s) Supporting Document(s) Appearance, Urine CLOUDY Above high normal MED[facility] NT ([employer]) Color, Urine YELLOW [facility] ([employer]) PH,Urine 5.0 units 5.0-9.0 [facility] ([employer] O B/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 HAND) Protein, Urine Auto NEGATIVE mg/dL [facility] T ([employer]) Specific [place] Urine Auto 1.021 1.002-1.035 [facility] ([employer]) Glucose, Urine (Ua) Auto NEGATIVE mg/dL [facility] ([employer]) Urobilinogen, Urine Auto 0.2 mg/dL 0.0-2.0 [facility] ([employer]) Ketone, Urine Auto NEGATIVE mg/dL [facility] ([employer]) Bilirubin, Urine Auto NEGATIVE [facility] ( [place] [employer]) Nitrite, Urine Auto NEGATIVE [facility] ([place] [place] [employer]) Leukocyte Esterase, Urine Auto 3+ Above high stormy l [facility] ([employer]) RBC, Urine Auto 6 /HPF 0-3 Above high normal [facility] ([employer]) Blood, Urine Blood NEGATIVE [facility] ([facility] Woman [employer]) WBC, Urine Auto 11 /HPF 0-3 Above high normal [facility] ([employer]) Squamous Epithelial Cell Ur AU 16 /HPF 0-6 [facility] ([employer]) Hyaline Cast, Urine Auto 0 /LPF 0-1 [facility] T ([employer]) Bacteria, Urine Auto 2+ Above high normal M EDENT ([employer]) ID Date Data Source [id number] 03/13/2019 11:26:00 AM EST [facility] ([employer]) Name Value Range Interpretation Code Description Data Corrie rce(s) Supporting Document(s) Urine Culture Result NO GROWTH [facility] ([place] [employer] [employer]) <External Comment eCWMed> FULL REPORT IN L <SEE NOTE> [facility] ([employer]) FULL REPORT IN LAB NOTES (eCW and [facility] ). Procedure Social History Code Duration Value Status Description Data Source(s ) Smoking 04/01/2020 12:00:00 AM EST Patient has never smoked co mpleted Patient has never smoked [facility] ([facility] ) Smoking 03/27/2020 12:00:00 AM EST Never Smoker completed Never S moker eCW1 ([facility]) Smoking 03/27/2020 12:00:00 AM EST Never Smoker completed Never S moker eCW1 ([facility]) Smoking 03/25/2020 12:00:00 AM EST Non-smoker, Non-drink er, Non-drug User completed Non-smoker, Non-drinker, Non-drug User [facility] ([employer]) Alcohol intake 03/18/2020 12:00:00 AM EST Ex-drinker (finding) comp leted Ex- drinker (finding) [facility] Tobacco use and exposure 03/18/2020 12:00:00 AM EST Never used co mpleted Never used [facility] Smoking 03/18/2020 12:00:00 AM EST Never smoker completed Never s [facility] Smoking 02/25/2020 12:00:00 AM EST Never Smoker completed Never S moker eCW1 ([facility]) Smoking 01/29/2020 06:23:00 PM EDT Denies Ever Smoked complete d Denies Ever Smoked [facility] Alcohol intake 01/25/2020 12:00:00 AM EDT Current non-d kumar of alcohol (finding) completed Current non-drinker of alcohol (finding) [facility] Smoking 01/20/2020 12:00:00 AM EDT Never Smoker completed Never S moker eCW1 ([facility]) Smoking 01/20/2020 12:00:00 AM EDT Never Smoker completed Never S moker eCW1 ([facility]) Smoking 01/20/2020 12:00:00 AM EDT Never Smoker completed Never S moker eCW1 ([facility]) Smoking 01/11/2020 12:00:00 AM EDT Unknown if ever smoked comp leted Unknown if ever smoked [facility] Alcohol intake 01/06/2020 12:00:00 AM EDT Current non-d kumar of alcohol (finding) completed Current non-drinker of alcohol (finding) [facility] Alcohol intake 11/05/2019 12:00:00 AM EDT Current non-d kumar of alcohol (finding) completed Current non-drinker of alcohol (finding) [facility] Smoking 11/05/2019 12:00:00 AM EDT Never smoker completed Never s [facility] Smoking 09/11/2019 12:00:00 AM EDT Never Smoked Cigarettes com pleted Never Smoked Cigarettes [facility] ([facility]) Alcohol intake 08/07/2019 12:00:00 AM EDT Current non-d kumar of alcohol (finding) completed Current non-drinker of alcohol (finding) [facility] Smoking 08/07/2019 12:00:00 AM EDT Never smoker completed Never s [facility] Smoking 08/02/2019 12:00:00 AM EDT Never Smoker completed Never S moker eCW1 ([facility]) Smoking 08/02/2019 12:00:00 AM EDT Never Smoker completed Never S moker eCW1 ([facility]) Alcohol intake 04/25/2019 12:00:00 AM EST Current non-d kumar of alcohol (finding) completed Current non-drinker of alcohol (finding) [facility] Smoking 04/25/2019 12:00:00 AM EST Never smoker completed Never s [facility] Vital Signs ID Date Data Source UNK Name Value Range Interpretation Code Description Data Source(s) Body surface area Derived from formula 1.75 m2 1.75 m2 [facility] Body weight 69.854 kg 69.854 kg [facility] ([facility]) [place] body weight 120 [lb_av] 120 [lb_av] [facility] ([facility]) Body mass index (BMI) [Ratio] 26.4 kg/m2 26.4 k g/m2 [facility] ([facility]) Body weight 154.00 [lb_av] 154.00 [lb_av] [facility] Body height 64 [in_i] 64 [in_i] [facility] ([facility]) 5'4" Oxygen saturation in Arterial blood by Pulse oximetry 99 % 99 % [facility] ([facility]) Heart rate 103 /min 103 /min [facility]) Diastolic blood pressure 80 mm[Hg] 80 mm[Hg] [facility] ([facility]) Systolic blood pressure 120 mm[Hg] 120 mm[Hg] M [facility] ([facility]) Diastolic blood pressure 66 mm[Hg] 66 mm[Hg] eCW1 ([facility]) Systolic blood pressure 100 mm[Hg] 100 mm[Hg] e CW1 ([facility]) Body temperature 97.4 [degF] 97.4 [degF] W1 ( [facility]) Respiratory rate 18 /min 18 /min eCW1 (Counts include 234 beds at the [facility]) Heart rate 111 /min 111 /min eCW1 ([facility]) Body mass index (BMI) [Ratio] 26.12 kg/m2 26.12 kg/m2 W1 ([facility]) Body height 65 [in_i] 65 [in_i] eCW1 ([facility]) Body weight 157 [lb_av] 157 [lb_av] eCW1 ([facility]) Diastolic blood pressure 66 mm[Hg] 66 mm[Hg] [facility] ([employer]) Systolic blood pressure 104 mm[Hg] 104 mm[Hg] M [facility] ([employer]) Body surface area Derived from formula 1.76 m2 1.76 m2 [facility]) Body weight 70.535 kg 70.535 kg [facility] ([facility]) [place] body weight 120 [lb_av] 120 [lb_av] [facility] ([facility]) Body mass index (BMI) [Ratio] 26.7 kg/m2 26.7 k g/m2 [facility] ([facility]) Body weight 155.50 [lb_av] 155.50 [lb_av] [facility] Body height 64 [in_i] 64 [in_i] [facility] ([facility]) 5'4" Oxygen saturation in Arterial blood by Pulse oximetry 98 % 98 % [facility] ([facility]) Heart rate 89 /min 89 /min [facility] ([facility]) Diastolic blood pressure 78 mm[Hg] 78 mm[Hg] [facility] ([facility]) Systolic blood pressure 116 mm[Hg] 116 mm[Hg] [facility] Diastolic blood pressure 56 mm[Hg] 56 mm[Hg] [facility] ([place] [employer]) Systolic blood pressure 116 mm[Hg] 116 mm[Hg] M [facility] ([employer]) Diastolic blood pressure 62 mm[Hg] 62 mm[Hg] eCW1 ([facility]) Systolic blood pressure 100 mm[Hg] 100 mm[Hg] e CW1 ([facility]) Body temperature 97.9 [degF] 97.9 [degF] eCW1 ( [facility]) Respiratory rate 18 /min 18 /min eCW1 (Counts include 234 beds at the [facility]) Heart rate 106 /min 106 /min eCW1 ([facility]) Body mass index (BMI) [Ratio] 25.06 kg/m2 25.06 kg/m2 W1 ([facility]) Body height 65 [in_i] 65 [in_i] eCW1 ([facility]) Body weight 150.6 [lb_av] 150.6 [lb_av] eCW1 ([facility]) Diastolic blood pressure 60 mm[Hg] 60 mm[Hg] [facility] ([employer]) Systolic blood pressure 106 mm[Hg] 106 mm[Hg] M [facility] ([employer]) Body temperature 36.8 shruthi Normal (applies to non-numeric results) 36.8 shruthi [facility] Respiratory rate 16 min Normal (applies to non-numeric results) 16 min [facility] Deprecated Oxygen saturation in Capillary blood by Oximetry 100 % Normal (applies to non-numeric results) 100 % [facility] Heart rate 99 min Normal (applies to non-numeric resul ts) 99 min [facility] Diastolic blood pressure 91 mm[Hg] Normal (applies to non-numeric results) 91 mm[Hg] [facility] Systolic blood pressure 140 mm[Hg] Normal (applies t o non-numeric results) 140 mm[Hg] [facility] Body mass index (BMI) [Ratio] 24.3 kg/m2 No rmal (applies to non-numeric results) 24.3 kg/m2 [facility] Body weight Measured 142 [lb_av] Normal (applies to n on-numeric results) 142 [lb_av] [facility] Body height 162.1536 cm Normal (applies to non-numeric res ults) 162.1536 cm [facility] Diastolic blood pressure 58 mm[Hg] 58 mm[Hg] eCW1 ([facility]) Systolic blood pressure 96 mm[Hg] 96 mm[Hg] e CW1 ([facility]) Body temperature 96.8 [degF] 96.8 [degF] eCW1 ( [facility]) Respiratory rate 18 /min 18 /min eCW1 (Counts include 234 beds at the [facility]) Heart rate 104 /min 104 /min eCW1 ([facility]) Body mass index (BMI) [Ratio] 25.62 kg/m2 25.62 kg/m2 eCW1 ([facility]) Body height 65 [in_i] 65 [in_i] eCW1 ([facility]) Body weight 154 [lb_av] 154 [lb_av] eCW1 ([facility]) Oxygen saturation in Arterial blood by Pulse oximetry 98 % 98 % MEDENT ([facility]) Body mass index (BMI) [Ratio] 28.2 kg/m2 28.2 k g/m2 MEDENT ([facility]) Body weight 172.38 [lb_av] 172.38 [lb_av] MEDEN T ([facility]) Body height 65.5 [in_i] 65.5 [in_i] MEDENT ([facility]) 5'5.50" Heart rate 112 /min 112 /min MEDENT ([facility]) Diastolic blood pressure 62 mm[Hg] 62 mm[Hg] MEDENT ([facility]) Systolic blood pressure 110 mm[Hg] 110 mm[Hg] M EDENT ([facility]) Oxygen saturation in Arterial blood by Pulse oximetry 96 % 96 % MEDENT ([facility]) Body mass index (BMI) [Ratio] 28.4 kg/m2 28.4 k g/m2 MEDENT ([facility]) Body weight 173.38 [lb_av] 173.38 [lb_av] MEDEN T ([facility]) Body height 65.5 [in_i] 65.5 [in_i] MEDENT ([facility]) 5'5.50" Heart rate 103 /min 103 /min MEDENT ([facility]) Diastolic blood pressure 68 mm[Hg] 68 mm[Hg] MEDENT ([facility]) Systolic blood pressure 110 mm[Hg] 110 mm[Hg] M EDENT ([facility]) Diastolic blood pressure 78 mm[Hg] 78 mm[Hg] eCW1 ([facility]) Systolic blood pressure 122 mm[Hg] 122 mm[Hg] e CW1 ([facility]) Body temperature 99.3 [degF] 99.3 [degF] eCW1 ( [facility]) Heart rate 104 /min 104 /min eCW1 ([facility]) Body mass index (BMI) [Ratio] 29.62 kg/m2 29.62 kg/m2 eCW1 ([facility]) Body height 65 [in_us] 65 [in_us] eCW1 ([facility]) Body weight Measured 178 [lb_av] 178 [lb_av] eC W1 ([facility]) Diastolic blood pressure 68 mm[Hg] 68 mm[Hg] MEDENT ([employer]) Systolic blood pressure 108 mm[Hg] 108 mm[Hg] M EDENT ([employer]) Diastolic blood pressure 72 mm[Hg] 72 mm[Hg] MEDENT ([employer]) Systolic blood pressure 112 mm[Hg] 112 mm[Hg] M EDENT ([employer]) Diastolic blood pressure 62 mm[Hg] 62 mm[Hg] eCW1 ([facility]) Systolic blood pressure 118 mm[Hg] 118 mm[Hg] e CW1 ([facility]) Body temperature 97 [degF] 97 [degF] eCW1 (Counts include 234 beds at the [facility]) Respiratory rate 18 /min 18 /min eCW1 (Counts include 234 beds at the [facility]) Heart rate 110 /min 110 /min eCW1 ([facility]) Body mass index (BMI) [Ratio] 28.95 kg/m2 28.95 kg/m2 eCW1 ([facility]) Body height 65 [in_us] 65 [in_us] eCW1 ([facility]) Body weight Measured 174 [lb_av] 174 [lb_av] eC W1 ([facility]) Diastolic blood pressure 64 mm[Hg] 64 mm[Hg] MEDENT ([employer]) Systolic blood pressure 116 mm[Hg] 116 mm[Hg] M EDENT ([employer]) Diastolic blood pressure 70 mm[Hg] 70 mm[Hg] eCW1 ([facility]) Systolic blood pressure 120 mm[Hg] 120 mm[Hg] e CW1 ([facility]) Body temperature 97.7 [degF] 97.7 [degF] eCW1 ( [facility]) Respiratory rate 18 /min 18 /min eCW1 (Counts include 234 beds at the [facility]) Heart rate 101 /min 101 /min eCW1 ([facility]) Body mass index (BMI) [Ratio] 27.95 kg/m2 27.95 kg/m2 eCW1 ([facility]) Body height 65 [in_us] 65 [in_us] eCW1 ([facility]) Body weight Measured 168 [lb_av] 168 [lb_av] eC W1 ([facility]) Diastolic blood pressure 70 mm[Hg] 70 mm[Hg] MEDENT ([employer]) Systolic blood pressure 100 mm[Hg] 100 mm[Hg] M EDENT ([employer]) ID Date Data Source [id number] 03/30/2020 01:33:45 AM [facility] Name Value Range Interpretation Code Description Data Source(s) Body height Measured 64.5 in 64.5 in [facility] ID Date Data Source [id number] [facility]ation Code Description Data Source(s) TRANSFER FROM [facility] ID Date Data Source [id number] 01/28/2020 07:27:58 PM [facility] Value Range Interpretation Code Description Data Source(s) WEIGHT RECORDED 140 lb 140 lb [facility] Body height Measured 67.99 in 67.99 in [facility] ID Date Data Source [id number] 01/16/2020 01:09:59 AM [facility] Value Range Interpretation Code Description Data Source(s) Body height Measured 67.99 in 67.99 in [facility] WEIGHT RECORDED 180.56 lb 180.56 lb [facility] ID Date Data Source [id number] 01/18/2020 08:29:15 AM [facility] Value Range Interpretation Code Description Data Source(s) WEIGHT RECORDED 159.2 lb 159.2 lb [facility] ID Date Data Source [id number] 11/06/2019 12:13:11 AM [facility] Value Range Interpretation Code Description Data Source(s) WEIGHT RECORDED 160 lb 160 lb [facility] Body height Measured 64.5 in 64.5 in [facility] ID Date Data Source [id number] 08/08/2019 07:00:00 PM [facility] Value Range Interpretation Code Description Data Source(s) WEIGHT RECORDED 170 lb 170 lb [facility] ID Date Data Source [id number] 04/25/2019 10:48:52 PM EST [facility] Name Value Range Interpretation Code Description Data Source(s) WEIGHT RECORDED 170.6 lb 170.6 lb [facility] Patient Treatment Plan of Care Planned Activity Planned Date Details Description Data Source (s) lamotrigine 200 MG Oral Tablet 03/18/2020 12:00:[address] [facility] Levetiracetam 750 MG Oral Tablet 03/18/2020 12:00:[address] [facility] POLYETHYLENE GLYCOL 3350 142 MG/ML Oral Solution 02/21/2020 12:00:[address] [facility] Acetaminophen 325 MG / Oxycodone Hydrochloride 5 MG Or al Tablet 02/20/2020 12:00:00 AM [facility] NITROFURANTOIN, MACROCRYSTALS 25 MG / Ni trofurantoin, Monohydrate 75 MG Oral Capsule 02/20/2020 12:00:00 AM [facility] Acetaminophen 325 MG / Hydrocodone Bitartrate 5 MG Ora l Tablet 02/14/2020 12:00:00 AM [facility] Magnesium Hydroxide 80 MG/ML Oral Suspension 01/13/2020 10:00:00 PM [facility] Bisacodyl 10 MG Rectal Suppository 01/13/2020 07:45:55 AM [facility] 8.6 MG Oral Tablet 01/13/2020 07:45:55 AM [facility] 35.2 MG/ML Oral Solution 01/13/2020 07:45:55 AM [facility] ondansetron (ZOFRAN) 4 MG/2ML injection 01/11/2020 08:06:55 PM [facility] Levothyroxine Sodium 0.2 MG Oral Tablet [Synthroid] 10/07/19 12:00:00 AM [facility] Levetiracetam 750 MG Oral Tablet 08/07/2019 12:00:00 AM [facility] lamotrigine 200 MG Oral Tablet 08/07/2019 12:00:00 AM [facility] Levothyroxine Sodium 0.175 MG Oral Tablet 05/30/2019 12:00:00 AM SARAH [facility] eCW1 ([facility]) Levothyroxine Sodium 0.15 MG Oral Tablet 03/26/2019 12:00:00 AM EST eCW1 ([facility]) Glucagon 1 MG Injection 02/28/2019 12:00:00 AM EST eCW1 ([facility]) Glucagon 1 MG Injection 02/28/2019 12:00:00 AM EST eCW1 ([facility]) Glucagon 1 MG Injection 02/28/2019 12:00:00 AM EST eCW1 ([facility]) Glucagon 1 MG Injection 02/28/2019 12:00:00 AM EST eCW1 ([facility]) Levetiracetam 750 MG Oral Tablet 10/08/2018 12:00:00 AM [facility] lamotrigine 200 MG Oral Tablet 10/08/2018 12:00:00 AM [facility] gabapentin 100 MG Oral Capsule [facility] Amitriptyline Hydrochloride 25 MG Oral Tablet [facility] Levetiracetam 750 MG Oral Tablet [facility] lamotrigine 200 MG Oral Tablet [facility] Levothyroxine Sodium 0.112 MG Oral Tablet [facility]
--- OUTSIDE RECORDS SUMMARY | 2020-04-27 23:21 | CCD ---
Author Author [facility] Organization [facility] Address Unknown Phone Unavailable Care Team Providers Care Boiler Engineer Name Role Phone Palak Seymour MD Unavailable Unavailabl e DawnPalak MD [...] Gene MD Unavailable Unavailabl e Dawn, Cid Sanodval Gene MD Unavailable Unavailabl e Dawn, Cid Sandoval Gene Unavailable Unavailabl e VENERUSJames MD Unavailable Unavailable VENERUSJames MD Unavailable Unavailable VENERUSJames MD Unavailable Unavailable VENERUSJames MD Unavailable Unavailable VENERUSJames MD Unavailable Unavailable VENERUSJames MD Unavailable Unavailable VENERUSJames MD Unavailable Unavailable VENERUSJames MD Unavailable Unavailable VENERUSJames MD Unavailable Unavailable JOSE, ABILIO ROSA MARIA SOLAR TECHNICIAN-C Unavailable Unavailable JOSE, BAILIO ROSA MARIA SOLAR TECHNICIAN-C Unavailable Unavailable JOSE, ABILIO ROSA MARIA SOLAR TECHNICIAN-C Unavailable Unavailable JOSE, ABILIO ROSA MARIA SOLAR TECHNICIAN-C Unavailable Unavailable JOSE, ABILIO ROSA MARIA SOLAR TECHNICIAN-C Unavailable Unavailable JOSE, ABILIO ROSA MARIA SOLAR TECHNICIAN-C Unavailable Unavailable JOSE, ABILIO ROSA MARIA SOLAR TECHNICIAN-C Unavailable Unavailable JOSE, ABILIO ROSA MARIA SOLAR TECHNICIAN-C Unavailable Unavailable JOSE, ABILIO ROSA MARIA SOLAR TECHNICIAN-C Unavailable Unavailable JOSE, ABILIO ROSA MARIA SOLAR TECHNICIAN-C Unavailable Unavailable JOSE, ABILIO ROSA MARIA SOLAR TECHNICIAN-C Unavailable Unavailable JOSE, ABILIO ROSA MARIA SOLAR TECHNICIAN-C Unavailable Unavailable JOSE, ABILIO ROSA MARIA SOLAR TECHNICIAN-C Unavailable Unavailable JOSE, ABILIO ROSA MARIA SOLAR TECHNICIAN-C Unavailable Unavailable JOSE, ABILIO ROSA MARIA SOLAR TECHNICIAN-C Unavailable Unavailable [place], Artis Dyer PA-C Unavailable Unavailable [place], M Manisha PA-C Unavailable Unavailable [place], M Manisha PA-C Unavailable Unavailable COOK, B BOO BALE PILER Unavailable Unavailable COOK, B BOO BALE PILER Unavailable Unavailable COOK, B BOO BALE PILER Unavailable Unavailable COOK, B BOO BALE PILER Unavailable Unavailable COOK, B BOO BALE PILER Unavailable Unavailable COOK, B BOO BALE PILER Unavailable Unavailable COOK, B BOO BALE PILER Unavailable Unavailable COOK, B BOO BALE PILER Unavailable Unavailable COOK, B BOO BALE PILER Unavailable Unavailable COOK, B BOO BALE PILER Unavailable Unavailable COOK, B BOO BALE PILER Unavailable Unavailable COOK, B BOO BALE PILER Unavailable Unavailable COOK, B BOO BALE PILER Unavailable Unavailable COOK, B BOO BALE PILER Unavailable Unavailable COOK, B BOO BALE PILER Unavailable Unavailable COOK, B BOO BALE PILER Unavailable Unavailable COOK, B BOO BALE PILER Unavailable Unavailable COOK, B BOO BALE PILER Unavailable Unavailable COOK, B BOO BALE PILER Unavailable Unavailable COOK, B BOO BALE PILER Unavailable Unavailable COOK, B BOO BALE PILER Unavailable Unavailable COOK, B BOO BALE PILER Unavailable Unavailable COOK, B BOO BALE PILER Unavailable Unavailable COOK, B BOO BALE PILER Unavailable Unavailable COOK, B BOO BALE PILER Unavailable Unavailable COOK, B BOO BALE PILER Unavailable Unavailable COOK, B BOO BALE PILER Unavailable Unavailable COOK, B BOO BALE PILER Unavailable Unavailable COOK, B BOO BALE PILER Unavailable Unavailable COOK, B BOO BALE PILER Unavailable Unavailable COOK, B BOO BALE PILER Unavailable Unavailable COOK, B BOO BALE PILER Unavailable Unavailable COOK, B BOO BALE PILER Unavailable Unavailable COOK, B BOO BALE PILER Unavailable Unavailable COOK, B BOO BALE PILER Unavailable Unavailable COOK, B BOO BALE PILER Unavailable Unavailable COOK, B BOO BALE PILER Unavailable Unavailable COOK, B BOO BALE PILER Unavailable Unavailable COOK, B BOO BALE PILER Unavailable Unavailable COOK, B BOO BALE PILER Unavailable Unavailable COOK, B BOO BALE PILER Unavailable Unavailable COOK, B BOO BALE PILER Unavailable Unavailable COOK, B BOO BALE PILER Unavailable Unavailable COOK, B BOO BALE PILER Unavailable Unavailable COOK, B BOO BALE PILER Unavailable Unavailable COOK, B BOO BALE PILER Unavailable Unavailable COOK, B BOO BALE PILER Unavailable Unavailable COOK, B BOO BALE PILER Unavailable Unavailable COOK, B BOO BALE PILER Unavailable Unavailable COOK, B BOO BALE PILER Unavailable Unavailable COOK, B BOO BALE PILER Unavailable Unavailable COOK, B BOO BALE PILER Unavailable Unavailable COOK, B BOO BALE PILER Unavailable Unavailable COOK, B BOO BALE PILER Unavailable Unavailable COOK, B BOO BALE PILER Unavailable Unavailable COOK, B BOO BALE PILER Unavailable Unavailable COOK, B BOO BALE PILER Unavailable Unavailable COOK, B BOO BALE PILER Unavailable Unavailable COOK, B BOO BALE PILER Unavailable Unavailable COOK, B BOO BALE PILER Unavailable Unavailable COOK, B BOO BALE PILER Unavailable Unavailable COOK, B BOO BALE PILER Unavailable Unavailable COOK, B BOO BALE PILER Unavailable Unavailable IGOR, M CASTRO BALE PILER Unavailable Unavailable IGOR, M CASTRO BALE PILER Unavailable Unavailable IGOR, M CASTRO BALE PILER Unavailable Unavailable IGOR, M CASTRO BALE PILER Unavailable Unavailable IGOR, M CASTRO BALE PILER Unavailable Unavailable IOGR, M CASTRO BALE PILER Unavailable Unavailable IGOR, M CASTRO BALE PILER Unavailable Unavailable IGOR, M CASTRO BALE PILER Unavailable Unavailable IGOR, M CASTRO BALE PILER Unavailable Unavailable IGOR, M CASTRO BALE PILER Unavailable Unavailable IGOR, M CASTRO BALE PILER Unavailable Unavailable IGOR, M CASTRO BALE PILER Unavailable Unavailable IGOR, M CASTRO BALE PILER Unavailable Unavailable IGOR, M CASTRO BALE PILER Unavailable Unavailable IGOR, M CASTRO BALE PILER Unavailable Unavailable IGOR, M CASTRO BALE PILER Unavailable Unavailable IGOR, M CASTRO BALE PILER Unavailable Unavailable IGOR, M CASTRO BALE PILER Unavailable Unavailable IGOR, M CASTRO BALE PILER Unavailable Unavailable IGOR, M CASTRO BALE PILER Unavailable Unavailable IGOR, M CASTRO BALE PILER Unavailable Unavailable IGOR, M CASTRO BALE PILER Unavailable Unavailable IGOR, M CASTRO BALE PILER Unavailable Unavailable IGOR, M CASTRO BALE PILER Unavailable Unavailable IGOR, M CASTRO BALE PILER Unavailable Unavailable IGOR, M CASTRO BALE PILER Unavailable Unavailable IGOR, M CASRTO BALE PILER Unavailable Unavailable IGOR, M CASTRO BALE PILER Unavailable Unavailable IGOR, M CASTRO BALE PILER Unavailable Unavailable IGOR, M CASTRO BALE PILER Unavailable Unavailable IGOR, M CASTRO BALE PILER Unavailable Unavailable IGOR, M CASTRO BALE PILER Unavailable Unavailable Quezada, Xiangping Unavailable Unavailable Quezada, [...] L ELODIA ARENAS Unavailable Unavailable BAKER, L ELOIDA ARENAS Unavailable Unavailable BAKER, Fiona CLIFTON MD [...] Unavailable Unavailable Artis FONTENOT MD Unavailable Unavailable Artsi FONTENOT MD Unavailable Unavailable CORIEArtis ROUSE MD [...] is protected by Article 27-F of the [facility] Public Health law. If you continue you may have access to information: Regarding HIV / AIDS; Provided by facilities licensed or operated by the [facility] Office of Mental Health; or Provided by the [facility] Office for People With Developmental Disabilities. If such information is present, then the following [facility] mandated warning applies: This information has been [...] law may result in a fine or [place] health care facility sentence or both. A general authorization for the release of medical or other information is NOT sufficient authorization for further disc losure. Allergies and Adverse Reactions Type Description Substance Reaction Status Data Source(s ) No Known Food Allergies No Known Food Allergies [facility] Drug allergy NOSE SPRAY NOSE SPRAY [facility] Drug allergy CT CONTRAST CT CONTRAST ANAPHYLAXIS [facility] CLASS CONTRAST MEDIA, IODINE RELATED CONTRAST MEDIA, I ODINE RELATED ANAPHYLAXIS [facility] BRANDNAME FENTANYL TRANSDERMAL SYSTEM FENTANYL TRANSDERMAL SYSTEM HI VES [facility] ENVIRONMENTAL LATEX LATEX [facility] Drug Class NO KNOWN ALLERGIES NO KNOWN ALLERGIES [facility] Drug allergy Fentanyl Fentanyl seizures Active eCW1 ([facility]) CT dye, contrast CT dye, contrast CT dye, contrast Anaphylaxis Acti ve eCW1 ([facility]) latex latex latex Anaphylaxis Active eCW1 ([facility]) latex latex latex Anaphylaxis Active eCW1 ([facility]) CT dye, contrast CT dye, contrast CT dye, contrast Anaphylaxis Acti ve eCW1 ([facility]) CT dye, contrast CT dye, contrast CT dye, contrast Anaphylaxis Acti ve eCW1 ([facility]) latex latex latex Anaphylaxis Active eCW1 ([facility]) Family History Family Member Name Family Member Gender Family Member Status Date o f Status Description Data Source(s) Unknown Female Problem [facility] ([facility]) Encounters Encounter Providers Location Date Indications Data Source(s ) Outpatient Attender: NOELLE FONTENOT MD 01/11/2021 12:00:00 AM [facility] Outpatient Attender: NOELLE FONTENOT MD 04/27/2020 12:00:00 AM [facility] Unknown [address] [facility] [address] 04/20/2020 12:00:00 AM EST eCW1 ([facility]) Outpatient [address] [facility] [place] [address] 03/26/2020 12:00:00 AM EST eCW1 ([facility]) Outpatient Attender: Mariano Quezada [id number] [id number] 12:00:00 AM EST - 03/18/2020 08:34:34 AM EST 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 Outpatient Referrer: VAMSI NOVOA MD 01/29/2020 10: 36:[address]T seizure [address] [facility] seizure disorder Emergency Attender: MANUELITO CARVAJALConsultant: Nargis marte MD 01/29/2020 06:03:00 AM EDT - 01/29/2020 11:59:00 AM EDT [facility] Patient discharged. Outpatient Attender: Manisha Conrad PA-C [facility] Internal Med a t [place] 01/29/2020 03:53:00 AM EDT MEDENT ([facility]) Outpatient Attender: Mariano Quezada [id number] 020 12:00:00 AM EDT - 01/28/2020 12:03:[address] [facility] Unknown [address] [facility] [address] 01/24/2020 12:00:00 AM EDT eCW1 ([facility]) Outpatient [address] [facility] [place] [address] 01/20/2020 12:00:00 AM EDT eCW1 ([facility]) Unknown [address] [facility] [place] [address] 01/15/2020 12:00:00 AM EDT eCW1 ([facility]) Inpatient Attender: RACH POWELL MDAttender: Sandoval Seymour MDAdmitter: Sandoval Seymour MDReferrer: Sandoval Seymour MDConsultant: Sandoval Seymour MD [id number] 01/11/2020 12:00:00 AM EDT - 01/14/2020 12:10:00 PM EDT Epilepsy, unspecified, not intractable, with status ep ilepticus [facility] Epilepsy, unspecified, not intractable, with status epilepticus Patient discharged. Outpatient Attender: NOELLE FONTENOT MD [id number] 12/17 12:00:00 AM EDT - 01/06/2020 10:20:34 AM EDT Hodgkin lymphoma, unspecified, unspecified site [facility] Hodgkin lymphoma, unspecified, unspecifi ed site Outpatient Referrer: GLEN NELSON MD [id number] 11/29/2019 02:0 3:[address] [facility] encephalitis Outpatient Attender: Mariano Quezada [id number] 020 12:00:00 AM EDT - 11/05/2019 01:01:40 PM EDT [address] [address] 09/26/2019 12:00:00 AM EDT [facility] [address] [place] [address] 09/24/2019 12:00:00 AM EDT [facility]) Outpatient Attender: BOO HEAD NP Physical Therapy 09/11/2019 0 8:30:00 AM EDT MEDENT ([facility]) [address] [place] [address] 09/03/2019 12:00:00 AM EDT eCW1 [facility] Outpatient Attender: BOO HEAD BALE PILER Physical Therapy 08/30/2019 1 0:45:00 AM EDT MEDENT ([facility]) [facility] [address] [place] [address], [place] [address] 08/27/2019 12:00:00 AM EDT eCW1 ([facility]) [facility] [address] [place] [address] [place] [address] 08/22/2019 12:00:00 AM EDT [facility] [address] [place] [address] 08/20/2019 12:00:00 AM EDT [facility]CW1 [facility]) Outpatient Attender: Mariano Damien [id number] [id number] 12:00:00 AM EDT - 08/07/2019 03:31:04 PM EDT 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, not intractable, without status epilepticus [address] [address] 08/02/2019 12:00:00 AM EDT eCW1 ([facility]) [address] [place] [address] 07/29/2019 12:00:00 AM EDT eCW1 ([facility]) [address] [place] [address] 07/29/2019 12:00:00 AM EDT [facility]CW1 [facility]) [address] [address] 07/29/2019 12:00:00 AM EDT [facility]CW1 [facility]) Outpatient Attender: ELODIA BAKER MD [facility] yard motor operator 01:00:00 PM EST [facility] ([facility]) [address] [address] 06/04/2019 12:00:00 AM EST [facility]CW1 [facility]) [address] [address] 06/03/2019 12:00:00 AM EST [facility]CW1 [facility]) [address] [address] 05/30/2019 12:00:00 AM EST [facility]CW1 [facility]) [address] [place] [address] 05/30/2019 12:00:00 AM EST [facility]CW1 [facility]) [address] [address] 05/29/2019 12:00:00 AM EST eCW1 ([facility]) [address] [address] 05/21/2019 12:00:00 AM EST eCW1 ([facility]) Outpatient 04/26/2019 06:05:00 PM EST [facility] Emergency Attender: VAMSI NOVOA MDConsultant: Nargis hayward MD 04/26/2019 04:04:00 PM EST - 04/26/2019 07:47:00 PM EST [facility] Patient discharged. 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 IIV4 04/01/2020 12:40:00 PM EST completed MEDENT ([facility] ) Medications Medication Brand Name Start Date Product Form Dose Route Admi nistrative Instructions Pharmacy Instructions Status Indications Reaction Description Data Source(s) Levetiracetam 750 MG Oral Tablet levETIRAcetam 750 MG Oral Tablet (KEPPRA) levETIRAcetam 750 MG Oral Tablet (KEPPRA) 03/18/2020 12:00:00 AM EST 750 mg Oral active Take 1 tablet by tata th Two Times Daily [facility] lamotrigine 200 MG Oral Tablet lamoTRIgine 200 MG Oral Tablet (LaMICtal) lamoTRIgine 200 MG Oral Tablet (LaMICtal) 03/18/2020 12:00:00 AM EST 200 mg Oral active Nonintractable g eneralized idiopathic epilepsy without status epilepticus Take 1 tablet by mouth Two Times Daily 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 status epilepticus POLYETHYLENE GLYCOL 3350 142 MG/ML Oral Solution Polyethylene Glycol 3350 17 GM/SCOOP Oral Powder (GLYCOLAX) Polyethylene Glycol 3350 17 GM/SCOOP Ora l Powder (GLYCOLAX) 02/21/2020 12:00:00 AM EST active MIX 17 GRAMS IN 8 OUNCES OF WATER OR JUICE AND TK PO D PRN FOR CONSTIPATION [facility] Acetaminophen 325 MG / Oxycodone Hydroch loride 5 MG Oral Tablet oxyCODONE- Acetaminophen 5-325 MG Oral Tablet (PERCOCET) oxyCODONE-Acetaminophen 5-325 MG Oral Tablet (PERCOCET) 02/20/2020 12:00:00 AM EST active TK 2 TS PO Q 4 H PRF PAIN. MDD [address] [place] [address] NITROFURANTOIN, MACROCRYSTALS 25 MG / Ni trofurantoin, Monohydrate 75 MG Oral Capsule Nitrofurantoin Monohyd Macro 100 MG Oral Capsule (MACROBID) Nitrofurantoin Monohyd Macro 100 MG Oral Capsule (MACROBID) 02/20/2020 12:00:00 AM EST active TK 1 C PO BID Ups [facility] celecoxib 200 MG Oral Capsule [Celebrex] Celebrex 02/19/2020 12 :00:00 AM EST ORAL active MEDENT ([facility] ADVIS[facility]) Acetaminophen 325 MG / Oxycodone Hydrochloride 5 MG Or al Tablet [Percocet] Percocet 02/18/2020 12:00:00 AM EST ORAL active MED[facility] ([facility]) Acetaminophen 325 MG / Hydrocodone Mounika trate 5 MG Oral Tablet HYDROcodone- Acetaminophen 5-325 MG Oral Tablet (LORTAB) HYDROcodone-Acetaminophen 5-325 MG Oral Tablet (LORTAB) 02/14/2020 12:00:00 AM EDT active TK 2 TS PO Q 4 H PRF PAIN. [address] Acetaminophen 325 MG / Hydrocodone Bitartrate 5 MG Oral Tabl et [[place]] [place] 02/11/2020 12:00:00 AM EDT ORAL completed MEDENT ([facility]) Ibuprofen 600 MG Oral Tablet Ibuprofen 02/11/2020 12:00:00 AM EDT ORAL active MED[facility] ([facility]) Magnesium Hydroxide 80 MG/ML Oral Suspen shanna magnesium hydroxide (MILK OF MAGNESIA) 400 MG/5ML suspension 45 mL magnesium hydroxide (MILK OF MAGNESIA) 4 00 MG/5ML suspension 45 mL 01/13/2020 10:00:00 PM EDT 45 mL Oral active 45 mL, Oral, Nightly, First dose on Mon01/13/20 at 2200, For 30 days
If serum creatinine > 2 notify provider before administering.
[facility] Medication administered onsite Docusate Sodium 100 MG Oral Capsule docusate sodium (C OLACE) capsule 100 mg docusate sodium (COLACE) capsule 100 mg 01/13/2020 09:00:00 AM EDT 100 mg Oral active 100 mg, Oral, 2 Times Daily, First dose on Mon01/13/20 at 0900, For [address] [facility] Medication administered onsite sennosides, SENIOR LIVING 8.6 MG Oral Tablet senna tablet 2 tablet sen na tablet 2 tablet 01/13/2020 07:45:55 AM EDT 2 {tbl} Oral active 2 tablet, Oral, Nightly PRN, Constipation, Starting 01/13/20 at 0745, For [address] [facility] Medication administered onsite sennosides, SENIOR LIVING 35.2 MG/ML Oral Solution senna (SENOKO T) syrup 10 mL senna (SENOKOT) syrup 10 mL 01/13/2020 07:45:55 AM EDT 10 mL Oral active 10 mL, Oral, Nightly PRN, Constipation, Starting Mon01/13/20 at 0745, For [address] [facility] Medication administered onsite Bisacodyl 10 MG Rectal Suppository bisacodyl (DULCOLAX ) suppository 10 mg bisacodyl (DULCOLAX) suppository 10 mg 01/13/2020 07:45:55 AM EDT 10 mg Rectal active 10 mg, Rectal, Every 72 hours PRN, Constipation, Starting Mon01/13/20 at 0745, For 30 days
Hold if patient has had BM within the past [address]
[facility] Medication administered onsite magnesium sulfate in dextrose 5 % infusion (premix) 1 g [id number] [id number] 01/13/2020 04:00:00 AM EDT 1 g Intravenous completed 1 g, Intravenous, Administer over 60 Minutes, Once, Mon01/13/20 at 0400, For [address] [facility] Medication administered onsite 2 ML Metoclopramide 5 MG/ML Prefilled Sy ringe metoclopramide (REGLAN) injection 10 mg metoclopramide (REGLAN) injection 10 mg 01/13/2020 04:00:00 AM E DT 10 mg Intravenous completed 10 mg, I ntravenous, Once, Mon01/13/20 at 0400, For [address] [facility] Medication administered onsite Loratadine 10 MG Oral Tablet loratadine (CLARITIN) tab let 10 mg loratadine (CLARITIN) tablet 10 mg 01/13/2020 04:00:00 AM EDT 10 mg Oral completed 10 mg, Oral, Once, Mon01/13/20 at 0400, For 1 dose [facility] Medication administered onsite Melatonin 5 MG Oral Tablet melatonin tablet 5 mg melatonin t ablet 5 mg 01/13/2020 02:30:00 AM EDT 5 mg Oral completed 5 mg, Oral, Once, Mon01/13/20 at 0230, For [address] [facility] Medication administered onsite Acetaminophen 10 MG/ML Injectable Soluti on acetaminophen (OFIRMEV) infusion 1,000 mg acetaminophen (OFIRMEV) infusion 1,000 mg 01/13/2020 01:45:00 AM EDT 1000 mg Intravenous completed 1,000 mg , Intravenous, Administer over 15 Minutes, Once, Mon01/13/20 at 0145, For 1 dose
Maximum dose 3 gm daily from all sources
[facility] Medication administered onsite Metoprolol Tartrate 25 MG Oral Tablet me toprolol tartrate (LOPRESSOR) tablet 25 mg metoprolol tartrate (LOPRESSOR) tablet 25 mg 01/13/2020 12:00:00 AM EDT 25 mg Oral completed 25 mg, Oral, Once, Mon01/13/20 at 0000, For [address] [facility] Medication administered onsite pantoprazole 40 MG Delayed Release Oral Tablet pantoprazole (PROTONIX) EC tablet 40 mg pantoprazole (PROTONIX) EC tablet 40 mg 01/12/2020 09:45:00 PM E DT 40 mg Oral active 40 mg, Ora l, Daily Standard, First dose on 01/12/20 at 2145, For 30 days
Do not crush or chew
[facility] Medication administered onsite alginic acid 200 MG / Calcium Carbonate 80 MG / magnesium trisilicate 20 MG / Sodium Bicarbonate 70 MG Oral Tablet calcium carbonate (TUMS) chewable tablet 500 mg calcium carbonate (TUMS) chewable tablet 500 mg 2019 09:37:32 PM EDT 500 mg Oral active 500 mg, Oral, Three Times Daily-PRN, Indigestion, Heartburn, Starting 01/12/20 at 2137, For [address] [facility] Medication administered onsite Famotidine 8 MG/ML Oral Suspension famot idine (PEPCID) 40 MG/5ML oral suspension 20 mg famotidine (PEPCID) 40 MG/5ML oral suspension 20 mg 09:00:00 PM EDT 20 mg Oral active 20 mg, O ral, 2 Times Daily, First dose on 01/12/20 at 2100, For 30 days
Tablet order changed to suspension due to backorder on tablets
[facility] Medication administered onsite sodium chloride 0.9 % bolus 500 mL 01/12/2020 08:15:00 PM EDT 500 mL Intravenous completed 500 mL, Intravenous, Once, [place] 01/12/20 at 2015, For [address] [facility] Medication administered onsite 1 ML Ketorolac Tromethamine 15 MG/ML [place] ketorolac (TORADOL) 15 MG/ML injection 15 mg ketorolac (TORADOL) 15 MG/ML injection 15 mg 0 09:45:00 AM EDT 15 mg Intravenous completed 15 mg, Intravenous, Once, [place] 01/12/20 at 0945, For [address] [facility] Medication administered onsite 0.4 ML Enoxaparin [...] hours after epidural catheter has been removed.
[facility] Medication administered onsite sodium chloride 0.9 % bolus 1,000 mL 01/12/2020 05:45: 00 AM EDT 1000 mL Intravenous completed 1,000 mL , Intravenous, Once, [place] 01/12/20 at 0545, For [address] [facility] Medication administered onsite sodium chloride 0.9 % bolus 500 mL 01/12/2020 01:15:00 AM EDT 500 mL Intravenous completed 500 mL, Intravenous, Once, [place] 01/12/20 at 0115, For [address] [facility] Medication administered onsite sodium chloride 0.9 % bolus 500 mL 01/11/2020 10:45:00 PM EDT 500 mL Intravenous completed 500 mL, Intravenous, Once, 01/11/20 at 2245, For [address] [facility] Medication administered onsite Levetiracetam 100 MG/ML Oral Solution le vETIRAcetam (KEPPRA) 100 MG/ML oral solution 750 mg levETIRAcetam (KEPPRA) 100 MG/ML oral solution 750 mg 01/11/2020 09:00:00 PM EDT 750 mg Per NG tube active 750 mg, Per NG tube, 2 Times Daily, First dose on 01/11/20 at 2100, For [address] [facility] Medication administered onsite ondansetron (ZOFRAN) injection [...] 2022, For 7 doses [Order 2 End] [facility] Medication administered onsite ondansetron (ZOFRAN) 4 MG/2ML injection [id number] 01/11/20 08:06:55 PM EDT completed Starting Sat at 2005, For 1 dose
Brayan SANCHEZ : cabinet override
[facility] Medication administered onsite Acetaminophen 32 MG/ML [...] mg from all sources in [address]
[facility] Medication administered onsite propofol (DIPRIVAN) infusion 1,000 mg/100 mL [id number] 01/11/2020 01:45:00 PM EDT ug/kg/min Intravenous aborted 1 0-80 mcg/kg/min 81.9 kg (4.914-39.312 mL/hr, rounded to 4.9-39.3 mL/hr), Intravenous, at 4.9- 39.3 mL/hr, Continuous, Starting 01/11/20 at 1345, For 30 days
Starting dose = 10 mcg/kg/minTitrate to maintain RASS of -3 Increase by 5-10 mcg/kg/minMax Dose = 80 mcg/kg/min Titrate down if RASS of -[address]
[facility] Medication administered onsite dexmedetomidine (PRECEDEX) in NaCl 0.9 % infusion 4 mcg/mL 1 [id number] 01/11/2020 01:30:00 PM EDT ug/kg/h Intravenous aborted 0.1-1.5 mcg/kg/hr 81.9 kg (2.0475-30.7125 mL/hr, rounded to 2-30.7 mL/hr), Intravenous, at 2-30.7 mL/hr, Continuous, Starting 01/11/20 at 1330, For 30 days
Starting dose = 0.2 mcg/kg/hrTitrate to maintain RASS of -3 Titrate by 0.1-0.2 mcg/kg/hrMax Dose = 1.5 mcg/kg/hr Titrate down if RASS of -[address]
[facility] Medication administered onsite NaCl infusion 0.9 % [id number] 01/11/2020 12:45:00 PM EDT Intravenous aborted at 100 mL/hr, Intrav enous, Continuous, Starting 01/11/20 at 1245, For [address] [facility] Medication administered onsite lamotrigine 100 MG Oral Tablet lamoTRIgine (LaMICtal) tablet 200 mg lamoTRIgine (LaMICtal) tablet 200 mg 01/11/2020 11:45:00 AM EDT 200 mg Oral active 200 mg, Oral, 2 Times Daily, First dose (after last reorder) on 01/11/20 at 1145, For [address] [facility] Medication administered onsite Levetiracetam 750 MG Oral Tablet levETIRAcetam (KEPPRA ) tablet 750 mg levETIRAcetam (KEPPRA) tablet 750 mg 01/11/2020 10:30:00 AM EDT 750 m g Oral aborted 750 mg, Oral, 2 Times Daily, First dose on 01/11/20 at 1030, For [address] [facility] Medication administered onsite propofol (DIPRIVAN) infusion 200 mg/20 mL [id number] 01/11/2020 09:00:00 AM EDT ug/kg/min Intravenous completed 10-80 mcg/kg/min 81.9 kg (4.914-39.312 mL/hr, rounded to 4.9-39.3 mL/hr), Intravenous, at 4.9- 39.3 mL/hr, Once, 01/11/20 at 0900, For 1 dose
Starting dose = 10 mcg/kg/minTitrate to maintain RASS of -2 Increase by 5-10 mcg/kg/minMax Dose = 80 mcg/kg/min Titrate down if RASS of [address]
[facility] Medication administered onsite Levothyroxine Sodium 0.2 MG Oral Tablet [Synthroid] Synthroid 200 MCG Oral Tablet Synthroid 200 MCG Oral Tablet 10/07/2019 12:00:00 AM EDT 200 ug Oral aborted Take 200 mcg by mouth daily [facility] Levothyroxine Sodium 0.2 MG Oral Tablet [Synthroid] Synthroi d 09/11/2019 12:00:00 AM EDT ORAL active M EDENT ([facility]) Levetiracetam 750 MG Oral Tablet levETIRAcetam 750 MG Oral Tablet (KEPPRA) levETIRAcetam 750 MG Oral Tablet (KEPPRA) 08/07/2019 12:00:00 AM EDT 750 mg Oral aborted Take 1 tablet by tata th Two Times Daily [facility] lamotrigine 200 MG Oral Tablet lamoTRIgine 200 MG Oral Tablet (LaMICtal) lamoTRIgine 200 MG Oral Tablet (LaMICtal) 08/07/2019 12:00:00 AM EDT 200 mg Oral aborted Nonintractable g eneralized idiopathic epilepsy without status epilepticus Take 1 tablet by mouth Two Times Daily 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 status epilepticus Acetaminophen 325 MG / Hydrocodone Bitartrate 5 MG Oral Tabl et [[place]] [place] 06/11/2019 12:00:00 AM EST ORAL active [facility] ([facility] [facility]) Ibuprofen 600 MG Oral Tablet Ibuprofen 06/11/2019 12:00:00 AM EST ORAL active [facility] ([facility]) Levothyroxine Sodium 0.175 MG Oral Tablet Levothyroxin e Sodium 175 MCG Levothyroxine Sodium 175 MCG 05/30/2019 12:00:00 AM EST active 1 tablet in the morning on an empty stomach eCW1 ([facility]) gabapentin 100 MG Oral Capsule Gabapentin 04/24/2019 12:00:00 AM EST active [facility] ([facility] [facility]) Metronidazole 500 MG Oral Tablet Metronidazole 04/24/2019 12:00:00 AM EST ORAL completed [facility] ([facility]) Levothyroxine Sodium 0.15 MG Oral Tablet Levothyroxine [...] [facility]) 1 ML heparin sodium, porcine 98469 UNT/ML Injection Heparin Sodium (Porcine) 03/13/2019 12:00:00 AM EST completed [facility] ([facility] [facility] [facility]) Pentosan Polysulfate 100 MG Oral Capsule [Elmiron] Elmiron 03/04/2019 12:00:00 AM EST ORAL active [facility] ([facility]) Glucagon 1 MG Injection Glucagon Emergency 1 [...] 02/28/2019 12:00: 00 AM EST active [facility] ([facility]) Glucagon 1 MG Injection Glucagon Emergency [...] 1 tablet by mouth Two Times Daily [facility] Nonintractable generalized idiopathic ep ilepsy without status epilepticus Levetiracetam 750 MG Oral Tablet levETIRAcetam (KEPPRA ) 750 MG tablet levETIRAcetam (KEPPRA) 750 MG tablet 10/08/2018 12:00:00 AM EDT 750 m g Oral aborted Take 1 tablet by mouth Two T imes Daily [facility] Amitriptyline Hydrochloride 25 MG Oral T ablet Amitriptyline HCl 25 MG Oral Tablet (ELAVIL) Amitriptyline HCl 25 MG Oral Tablet (ELAVIL) 25 mg Oral aborted Take 25 mg by mouth Two Times Da [facility] gabapentin 100 MG Oral Capsule Gabapentin 100 MG Oral Capsule (NEURONTIN) Gabapentin 100 MG Oral Capsule (NEURONTIN) 100 mg Oral aborted Take 100 mg by mouth Two Times Daily [facility] lamotrigine 200 MG Oral Tablet lamoTRIgine 200 MG Oral Tablet (LaMICtal) lamoTRIgine 200 MG Oral Tablet (LaMICtal) 200 mg Oral aborted Take 200 mg by mouth Two Times Daily [facility] Levetiracetam 750 MG Oral Tablet levETIRAcetam 750 MG Oral Tablet (KEPPRA) levETIRAcetam 750 MG Oral Tablet (KEPPRA) 750 mg Oral aborted Take 750 mg by mouth Two Times Daily [facility] Levothyroxine Sodium 0.112 MG Oral Table t levothyroxine (SYNTHROID, LEVOTHROID) 112 MCG tablet levothyroxine (SYNTHROID, LEVOTHROID) 112 MCG tablet 112 ug Oral aborted Take 112 mcg by mout h Daily [facility] Insurance Providers Payer name Policy type / Coverage type Policy ID Covered alliance party ID Covered alliance party's relationship to [place] Policy [place] Plan Information EMEDNY [id number] SP [id number] MEDICAID M [id number] Self [id number] MEDICAID - O/P EMERGENCY ROOM [id number] 18 [id number] MEDICAID HEA [id number] S [id number] MEDICAID M [id number] Self [id number] MEDICAID [id number] SP [id number] ANS-Medicaid [id number] ANSI-Medicaid [id number] ANSI-Medicaid [id number] ANSI-Medicaid [id number] ANSI-Medicaid [id number] ANSI-Medicaid [id number] ANSI-Medicaid [id number] ANSI-Medicaid [id number] ANSI-Medicaid [id number] ANSI-Medicaid [id number] ANSI-Medicaid [id number] ANSI-Medicaid [id number] ANSI-Medicaid [id number] ANSI-Medicaid [id number] MEDICAID M [id number] S [id number] ANSI-Medicaid [id number] ANSI-Medicaid [id number] ANSI-Medicaid [id number] ANSI-Medicaid [id number] ANSI-Medicaid [id number] ANSI-Medicaid [id number] ANSI-Medicaid [id number] ANSI-Medicaid [id number] ANS-Medicaid [id number] MEDICAID [id number] SP [id number] MEDICAID [id number] S [id number] MEDICAID [id number] UNAVAILABLE UNAVAILA BLE MEDICAID [place] CLIN[facility] [id number] B [id number] Medicaid [facility] Medicaid Self SELF PAY UNAVAILABLE UNAVAILA BLE MEDICAID -PHYSICIAN [id number] 1 8 [id number] MEDICAID-O/P [id number] MEDICAID - CLINIC [id number] 18 [id number] Medicaid [place] Self Medicaid [id number] MEDICAID W [id number] S [id number] MEDICAID 3 [id number] SELFPAY 5 UNAVAILABLE 1 UNAVAILA BLE MEDICAID -RECURRING [id number] 1 8 [id number] MEDICAID - CLINIC [id number] W UNAVAILABLE UNAVAILA BLE Problems, Conditions, and Diagnoses Code Display Name Description Problem Type Effective Dates Data Source(s) H91.93 167967678 Decreased hearing of both ears Problem 04/20/2020 12:00:00 AM EST eCW1 ([facility]) G47.19 [id number] Excessive daytime sleepiness Problem 01/20/2020 12:00:00 AM EDT eCW1 ([facility]) G40.909 211692001 Seizure disorder Problem 01/20/2020 12:00:00 AM EDT eCW1 ([facility]) F44.5 195001691 Pseudoseizures Problem 08/02/2019 12:00:00 A M EDT eCW1 ([facility]) F44.5 588284693 Pseudoseizures Problem 08/02/2019 12:00:00 A M EDT eCW1 ([facility]) 985193730 Chronic interstitial cystitis Chronic interstitial cys titis Problem 04/08/2019 12:00:00 AM EST [facility] ([facility] [facility] [facility]) 539618094 History of Hodgkin lymphoma History of Hodgkin lymphom a Problem 04/08/2019 12:00:00 AM EST [facility] ([facility] [employer]) I73.00 902745004 Raynaud's phenomenon without gangrene Pro blem 03/25/2019 12:00:00 AM EST eCW1 ([facility]) N30.10 652243857 Interstitial cystitis Problem 03/25/2019 12: 00:00 AM EST eCW1 ([facility]) E16.2 259522181 Hypoglycemia Problem 03/25/2019 12:00:00 AM EST eCW1 ([facility]) 486703303 Raynaud's phenomenon Raynaud's phenomenon Problem 03/25/2019 12:00:00 AM EST [facility] ([facility]) 517958614 Hypoglycemia Hypoglycemia Problem 03/25/2019 12:00:00 A M EST [facility] ([facility]) E16.2 820368744 Hypoglycemia Problem 03/25/2019 12:00:00 AM EST eCW1 ([facility]) I73.00 357297943 Raynaud's phenomenon without gangrene Pro blem 03/25/2019 12:00:00 AM EST eCW1 ([facility]) N30.10 646060250 Interstitial cystitis Problem 03/25/2019 12: 00:00 AM EST eCW1 ([facility]) G40.309 Generalized idiopathic epile psy and epileptic syndromes, not intractable, without status epilepticus Generalized idiopathic epilepsy and epileptic syndromes, not intractable, without status epilepticus Diagnosis 03/18/2020 07:26:37 AM [facility] seizure disorder seizure disorder Diagnosis 01/29/2020 10 :36:00 AM [facility] [id number] Latex allergy status Latex allergy status Diagnosis 01/29/2020 06:03:00 AM [facility] E039 Hypothyroidism, unspecified Hypothyroidism, unspecifie d Diagnosis 01/29/2020 06:03:00 AM [facility] [id number] Unspecified asthma, uncomplicated Unspecified as thma, uncomplicated Diagnosis 01/29/2020 06:03:00 AM [facility] R1084 Generalized abdominal pain Generalized abdominal pain Diagnosis 01/29/2020 06:03:00 AM [facility] [id number] Epilepsy, unspecified, not intractable, without status epilepticus Epilepsy, unspecified, not intractable, without status epilepticus Diagnosis 01/29/2020 06:03:00 AM [facility] G40.901 Epilepsy, unspecified, not intractable, with status epilepticus Epilepsy, unspecified, not intractable, with status epilepticus Diagnosis 01/12/2020 01:58:11 PM [facility] s/p seizure s/p seizure Diagnosis 11/29/2019 02:03:00 AM [facility] intubated intubated Diagnosis 11/29/2019 02:03:00 AM [facility] encephalitis encephalitis Diagnosis 11/29/2019 02:03:00 A M [facility] N924 Excessive bleeding in the premenopausal period Excessive bleeding in the premenopausal period Diagnosis 04/26/2019 04:04:00 PM [facility] R102 Pelvic and perineal pain Pelvic and perineal pain Diag nosis 04/26/2019 04:04:00 PM [facility] Surgeries/Procedures Procedure Description Date Indications Data Source(s) VAGINAL HYSTERECTOMY UTERUS 250 GM/< 02/13/2020 12:00: 00 AM EDT [facility] ([facility] [employer]) BLOOD COUNT COMPLETE AUTO&AUTO DIFRNTL WBC COUNT CBC AND DIFFER ENTIAL Routine 01/14/2020 3:53 AM EDT 01/14/2020 03:53:00 AM [facility] BASIC METABOLIC PANEL CALCIUM TOTAL BASIC METABOLIC PANEL Routi ne 01/14/2020 3:53 AM EDT 01/14/2020 03:53:[address] [facility] EKG 12-LEAD - CMAXX REPORT EKG 12-LEAD - CMAXX REPORT 01/13/2020 12:17 AM EDT 01/13/2020 12:17:[address] [facility] EKG 12-LEAD - CMAXX REPORT EKG 12-LEAD - CMAXX REPORT 01/13/2020 12:17 AM EDT 01/13/2020 12:17:[address] [facility] EKG 12-LEAD EKG 12-LEAD Routine 01/13/2020 12:17 AM EDT 01/13/2020 12:17:52 AM [facility] BLOOD COUNT COMPLETE AUTO&AUTO DIFRNTL WBC COUNT CBC AND DIFFER ENTIAL Routine 01/12/2020 4:59 AM EDT 01/12/2020 04:59:00 AM [facility] BASIC METABOLIC PANEL CALCIUM TOTAL BASIC METABOLIC PANEL Routi ne 01/12/2020 4:59 AM EDT 01/12/2020 04:59:[address] [facility] BASIC METABOLIC PANEL CALCIUM TOTAL BASIC METABOLIC PANEL Routi ne 01/11/2020 3:50 PM EDT 01/11/2020 03:50:[address] [facility] BLOOD GASES ANY COMBINATION PH PCO2 PO2 CO2 HCO3 BLOOD GAS, ART ERIAL Routine 01/11/2020 1:22 PM EDT 01/11/2020 01:22:00 PM [facility] CT HEAD/BRAIN W/O CONTRAST MATERIAL CT HEAD WITHOUT CONTRAST 70 450 STAT 01/11/2020 9:52 AM EDT 01/11/2020 09:52:10 AM [facility] COVID-19 PCR COVID-19 PCR Routine 01/11/2020 9:22 AM EDT 01/11/2020 09:22:00 AM [facility] BASIC METABOLIC PANEL CALCIUM IONIZED POCT ISTAT CHEM8 Routine 01/11/2020 9:19 AM EDT 01/11/2020 09:19:[address] [facility] GONADOTROPIN CHORIONIC QUANTITATIVE POCT ISTAT BHCG Routine 01/11/2020 9:13 AM EDT 01/11/2020 09:13:[address] [facility] BLOOD GASES ANY COMBINATION PH PCO2 PO2 CO2 HCO3 POCT ISTAT VBG /LAC Routine 01/11/2020 9:10 AM EDT 01/11/2020 09:10:00 AM [facility] LAMOTRIGINE LAMOTRIGINE Routine 01/11/2020 9:01 AM EDT 01/11/2020 09:01:00 AM [facility] LEVETIRACETAM LEVEL LEVETIRACETAM LEVEL Routine 01/11/2020 9:01 AM EDT 01/11/2020 09:01:00 AM [facility] URNLS DIP STICK/TABLET REAGENT AUTO MICROSCOPY URINALYSIS W ITH MICROSCOPIC STAT 01/11/2020 8:57 AM EDT 01/11/2020 08:57:00 AM [facility] BLOOD COUNT COMPLETE AUTO&AUTO DIFRNTL WBC COUNT CBC AND DIFFER ENTIAL STAT 01/11/2020 8:57 AM EDT 01/11/2020 08:57:[address] [facility] HEPATIC FUNCTION PANEL HEPATIC FUNCTION PANEL A STAT 0 8:57 AM EDT 01/11/2020 08:57:00 AM EDT [facility] BASIC METABOLIC PANEL CALCIUM TOTAL BASIC METABOLIC PANEL STAT 01/11/2020 8:57 AM EDT 01/11/2020 08:57:[address] [facility] EKG 12-LEAD - CMAXX REPORT EKG 12-LEAD - CMAXX REPORT 01/11/2020 8:56 AM EDT 01/11/2020 08:56:[address] [facility] EKG 12-LEAD - CMAXX REPORT EKG 12-LEAD - CMAXX REPORT 01/11/2020 8:56 AM EDT 01/11/2020 08:56:[address] [facility] EKG 12-LEAD EKG 12-LEAD STAT 01/11/2020 8:56 AM EDT 01/11/2020 08:56:[address] [facility] EKG 12-LEAD - CMAXX REPORT EKG 12-LEAD - CMAXX REPORT 01/11/2020 8:56 AM EDT 01/11/2020 08:56:[address] [facility] XR CHEST FRONTAL ONLY 72378 XR CHEST FRONTAL ONLY 42916 STAT 01/11/2020 8:45 AM EDT 01/11/2020 08:45:[address] [facility] BLOOD COUNT COMPLETE AUTOMATED CBC AND DIFFERENTIAL STAT 01/06/2020 9:20 AM EDT Hodgkin lymphoma, unspecified Hodgkin lymphoma type, unspecified body region 01/06/2020 09:20:00 AM EDT Hodgkin lymphoma, unspecified Hodgkin ly mphoma type, unspecified body region [facility] Hodgkin lymphoma, unspecified Hodgkin ly mphoma type, unspecified body region LACTATE DEHYDROGENASE LDH LACTATE DEHYDROGENASE STAT 01/05 9:20 AM EDT Hodgkin lymphoma, unspecified Hodgkin lymphoma type, unspecified body region 01/06/2020 09:20:00 AM EDT Hodgkin lymphoma, unspecified Hodgkin ly mphoma type, unspecified body region [facility] Hodgkin lymphoma, unspecified Hodgkin ly mphoma type, unspecified body region COMPREHENSIVE METABOLIC PANEL COMPREHENSIVE METABOLIC PANEL [place] 01/06/2020 9:20 AM EDT Hodgkin lymphoma, unspecified Hodgkin lymphoma type, unspecified body region 01/06/2020 09:20:00 AM EDT Hodgkin lymphoma, unspecified Hodgkin ly mphoma type, unspecified body region [facility] Hodgkin lymphoma, unspecified Hodgkin ly mphoma type, unspecified body region TRANS CARE MGMT 7 DAY DISCH 08/02/2019 12:00:00 AM EDT eCW1 ([facility]) Transitional Care NO CHARGE Visit 07/29/2019 12:00:00 AM EDT eCW1 ([facility]) Laparoscopy W/Removal Of Adnexal Struc Oophorectomy/Salp 06/13/2019 12:00:00 AM EST [facility] ([facility] [employer]) BLOOD COUNT COMPLETE AUTO&AUTO DIFRNTL WBC COUNT CBC AND DIFFER ENTIAL STAT 04/22/2019 2:00 PM EST Hodgkin lymphoma, unspecified Hodgkin lymphoma type, unspecified body region 04/22/2019 07:00:00 PM EST Hodgkin lymphoma, unspecified Hodgkin ly mphoma type, unspecified body region [facility] Hodgkin lymphoma, unspecified Hodgkin ly mphoma type, unspecified body region LACTATE DEHYDROGENASE LDH LACTATE DEHYDROGENASE STAT 04/22 2:00 PM EST Hodgkin lymphoma, unspecified Hodgkin lymphoma type, unspecified body region 04/22/2019 07:00:00 PM EST Hodgkin lymphoma, unspecified Hodgkin ly mphoma type, unspecified body region [facility] Hodgkin lymphoma, unspecified Hodgkin ly mphoma type, unspecified body region COMPREHENSIVE METABOLIC PANEL COMPREHENSIVE METABOLIC PANEL STA T 04/22/2019 2:00 PM EST Hodgkin lymphoma, unspecified Hodgkin lymphoma type, unspecified body region 04/22/2019 07:00:00 PM EST Hodgkin lymphoma, unspecified Hodgkin ly mphoma type, unspecified body region [facility] Hodgkin lymphoma, unspecified Hodgkin ly mphoma type, unspecified body region Irrigation Of Bladder 04/08/2019 12:00:00 AM EST [facility] ([facility] [employer]) Irrigation Of Bladder 03/28/2019 12:00:00 AM EST [facility] ([facility] [employer]) CYSTOURETHROSCOPY 02/28/2019 12:00:00 AM EST [facility] ([facility] [employer]) Results ID Date Data Source [id number] 03/30/2020 01:33:45 AM EST [facility] Name Value Range Interpretation Code Description Data Corrie rce(s) Supporting Document(s) Progress Note [facility] BWWQLq5tMlDYWqHl77/LWPzhWAFxw4JwDQvcFHb5IEnwANTbA6IrATO8cQ7fFEO9HKvGZfBjMtVwKkB3 lbm EbIisONtUpBVRmVthQFrWvHDhtOzzdjPPhQO6OnQC8DQYnR18pCFIxLJPaU5PpPNVjTDz+Qu3KRINsvH EdNB1PPkwJ4N6wd1XNMj7+Vfc/WMEO8xPTBJp/VrbNHFCbCLBWgrBMqetyPWzbQ1S7nqYr/rdCdvGI9Q dc4aaULUxFAuNggMu7t4/TM1Kq+R50hFpUsaWnyI+H u5kvr03d6R//ouav+d7Da/N/spfIDzwnceLiB/k/fffLHzzrqPUdR+SPJIzdo6oqdgvKM4LhFy6sH1el u84s1ztuRmz+kbv17PkV+8cHKklcz/M/XE5gJt6I5d553hiu6iZgGAjW4hQXFvSuydOMAOhDQkzp3T0c Hx0fidzELz1HgvqpKf3L/dgL2V+u5GDsLb5vSQp1KG g3LzCe3BEPPQisHQ8v8NNX1gfi7HcHp8ASUF700Xn6m2OpuU/gt5Mp2WBgMxiQu3igb/qFyyoxbS6H9t fdQIfXzl4RMrsYEkglSkoBYWhQlmuejckEq+mHMH622LsKUqhIgWeHL/ctQxAOGM2kJ39tTtd4UpXAaF EpQr4sAfNZLAh4YOh91t038uUtR7RK0OE5klU9ZfiJ 2hEo7wt/I6S1ZzH1SO9dDtS7hposE+96Q1lHlcmHR8sS0a1R8wje6cMfw4IftdGL1gkUl91Wa5mnC1xs fmd3hjAeYCVPY5gs5MzeHJpHfdfJt6PLHZYZ8MG+fzA3g1pYh1bYIA04xRmrqEZHnc9oQmYg4OTXi99y 86dBSNmul0DtzpJmtIrJ4opj0gODamm+3qAy1p0cOp ACIGRZOapffOPNm80uST2HaYYOI9qdF6uw2QMkknFaY5yGNOo6yAstErumYaR2QxK1PVSyj9UyDSOFcK 6RUZ+efWL62LS+XP9FaAWNtgzVh7IBvbgGnN6Grb0tNMMVJYV/jQQyvp+khUhG3jdPx6bwwn46yw/Sofie [file] PrCWSP/MAP/T+sketch maker+5//BuSzPBC0O91yWdxGdACf/oDsSUgp1WpiV0b/O9S46VRPbOuE9Vc+khmqf4fqz [file] ICAgICAgICAgICAgICAgICAgICAgICAgICAgICAgIC AgICAgICAgICAgICAgICAgICAgICAgICAgICAgICAgICAgICAgICAgICAgICAgICAgICAgICAgICAgIC KzIHTbJJ6KUOEmJVEiMJZbAIMkQDUfWSUtDWIzWSSlMWDxXGJnAOWuFOEcAISkCMMyNZAaKYBxODKyXR AgICAgICAgICAgICAgICAgICAgICAgICAgICAgICAg ZQBgELFzBMGqGHEoBAMzLG5BEMAsOHPcBPHbFQDcDJVjQVHsCMQxIEQeGCRjDDJbHOGsESDlBDKuYKQt UIKvFTHjWCHlKLIfQQTgLEWcIJYcEFGdOQClGIIoOXZxTNSeMNSxTYZfLFSdZFLtDMQjTNKrKWJjKF4W ICAgICAgICAgICAgICAgICAgICAgICAgICAgICAgIC AgICAgICAgICAgICAgICAgICAgICAgICAgICAgICAgICAgICAgICAgICAgICAgICAgICAgICAgICAgIC UuYYXiCJRtFZ7ZPRWtGCVdAQLfLFDzZXDcZBSvQJLoGEMzJWInPXEkWWYeQXMfHSBxWGKwFQIsARBbUW AgICAgICAgICAgICAgICAgICAgICAgICAgICAgICAg RTPjYFRgJUXxZWSgLFQnTFXoIA3VGRWaHZFnJXBqZQMpEZYkKHIzEPBhZHBrFTSbETRyCYIuCBFlFDPw ICAgICAgICAgICAgICAgICAgICAgICAgICAgICAgICAgICAgICAgICAgICAgICAgICAgICAgICAgICAg LE8JHNNuGSNeKABwAWWkCNKuLIZmCOJkBWQjJVSqJC AgICAgICAgICAgICAgICAgICAgICAgICAgICAgICAgICAgICAgICAgICAgICAgICAgICAgICAgICAgIC LjFYSaZFPcPVDvBP2FQEYpQTLqLHYnFQVbVOAfDKTgXVSiEELyAEVgTKCrTUJeSNIxXTVfVHQiTLAaWO AgICAgICAgICAgICAgICAgICAgICAgICAgICAgICAg NLNiEGMvYNMiHLHwGOPkATBxIFVoWC6SQWCrZJWeRNCdVJUaLHOdLHPjFMOeXZIkJQWwQDBuDXJxNGCx ICAgICAgICAgICAgICAgICAgICAgICAgICAgICAgICAgICAgICAgICAgICAgICAgICAgICAgICAgICAg GCJzYT0MNZHiTDGhZSPwIRVtJWNlUEKoEVMnEEXmZU AgICAgICAgICAgICAgICAgICAgICAgICAgICAgICAgICAgICAgICAgICAgICAgICAgICAgICAgICAgIC SeUYBdRIToUXPeQHYkIQ4WSM19dLUmt2X5SGHiQY6wmhz/Rw0ULCgbhfRkuRNtKG5PQxKzZO6kml8IZg RfMF3fie8VGYbTHjMcF2I9pKQjFKMbIIUSWlYzT49g WNfbMj06FZuaMZDvYvJnPDu5Am5JXgKgE6qdORZrBlB3PXNhPwF3UPRlNvE4HGDoNeWzUGMbSMJkLVVb ZCDLEHV7EQJkNbXtVcZkEMPeEUuqNOVKLFEqWTFgNuPsIdYdKTWoBR7GJCNrA227xcHfXYLRYd5+DQpl ukYmVtgHUfFaLRIrv9StPVx6UV1DBEEiJjazg9VkLN FyWIHOXQvcSD0XWFR8MROzZOXsGo9LSMKjM236vnBdXH3GLj7BPlDiHK3rvo9IQSEcQWNfCcjXIhp1IC uzDH0KtQHsVAsUue4cehLwwkHGb5RkoxIgiRTJvNVeU8SzdkyoLhsvnRqhEDQdREHgJKBiAp7sVBXgGG A9PhT7TPUTWC7DKIKgTSPjgOQjJSMdMNVFLH9KLSnb ILL6ZADfnvTekXIfIGvhDZ3TMJHhocFkTYRwTENRVWo+Cn8UGR3wn6DzNNp8CsKyOO2moi9ZKIoVIkNh X4S0nJEnM2Z6WZuzOb9VEYNkHXTqJmqtLMSNDZigHH1KQH5tviS8HK2NoBWbHLDoIKTuwLMnDSj9R73c iGKnINomBB3PBBS+Sadie+Kf7FGXKlQIPeMRUtIjNdZB DHQiIpX2XhT3ZAq6ZrO4VkYT04vKtzgcAcSZezPV0AUR5uPAPkDRMMDT4PfQXbfE0uthH6HNYrPSCSMc RvM07mmWGqOXFwRHR9EMWxUb7QXERaJ6MkugNsjSewtgGeRXQiZGUVBH0YFZdvwyKwxNSzkNsvGW41cZ krLX4TRp2YVwZhHM1yfn7FzTZoQq8ZUZR5Dv2MXRCl TPFqBCKqUQT1NKSkVqJuEDknTAMpWZFrMSI1GBXkNDUcAN5WUaSkDPFsDxQqGEUfCQXbXLGkis0JXOZt LIY6CKi0DDCmAMYvHIPmWSxoQFGhQBIlPYT7UXTwWZTgWF6HOjDkPINvXJV8BGjgECBiOXBcvc9VLFXt RQDuMGb2NBRnLYJmEIYgOIrmGSDoVKX0JWlxPBWsUW XjPF0LCmEpEWOzBFkxHKyhBQCcOPKxpq5JVCLnUFFlLUedJALoYTZeRDRjVCxjXWPuJYYwLMC7LVMpHK BbFH8ZOzOuGBJuTHA4YHLnDIOaLPPbza3QAKEbCXYhMCGwLMYjSKMcLQRxUWgrBRKjHRG8HiRdORSsIY JrBJ7OCrFaPSUnLOz8DQCwOPXgQANdli0GMGBrHMTc MGt9AuCnGOKrTBHhBLcaYPOhUKKdEYtwWANbZAFuHY6ONmZnMJBbWmM5NGubGLRgXRRddn7WZXJhZGQn PbglEBYuYKEfSYOfYGlbVBStXSE2JEV1HEMrXKBjVK4OTcGlHOVmDzS2IMLdHLVsZVIdxl6WTTKoLYBj UAZ7PTRgWLNxXMLuLStaZCBeUEKnHbc3EYLnWKYrOK 5WNdQeUIWkKdZ8IbNeJTQeYKSyqd2SLNXvTRHyEHKrNILoHMVuQYGaOGwuWROsHSV5QFkiCHAtXNYfVH 2UMaJcZHQiRfTsWAxrHCZaNCWeig5DQKDpQXLeNAX4EWHaGOJxHKWxEYyuHCGkXKC4UEVpWFVeYYNoVI 5WViCxKFDcEwN7EbEqZHOeSSLqzp9BIMFcEIAyDxcw YTFxYFUqJBDuPKvzLUHyKLS2LvohEXCvZMUrCS1UXjGcZQHlMCu4JKQjWCOdHOYxuo8UOTLeXKF3IRG4 IAOpBGLlERKnZOsuNAHfISW7BAT7UVDhEFCzPG5NWqVxXTRtZKd9HQVvEOAeJPXdnt2CQTBiUMS5AXD4 GzSzMBBcZGZlDIhzHPGeGMH8WWA6PVBoBMVvEU9FCr LdGEPsCsHyNrBsONUdMYAdmo3JGUPdXEN6VKNfZWZxOEUyKAWyEHnqGDOfAKBkPXL4DFLuIZLoTV2JEx FtFTDkIsZsJERbLNFeUZKwkh1BLDDvVYN9LoB8TLPwEAByHILaODw4zuDmdVJpVAn1PT4CJ6XmcnBdVN DPFk8Cc540SDIpYEDbTn6QQ1gsDe4hTMUeHHEMTe2M ZHl2QuAdIBT2HqudBRzdEXCqEve0EIq9MTfvKVDoLGA0BPz+MDtgD2W1JdrcO8MyZJVeLVLpTJhrCttn B4SmVCXlRSi1SD2oDFIDSx6+LBhryJNcaRmfRTBJFlMiOTRsIFqiEXJDIw7K ID Date Data Source LAMOTRIGINE (LAMICTAL) 03/20/2020 12:00:00 AM EST eCW1 ([facility]) Name Value Range Interpretation Code Description Data Corrie rce(s) Supporting Document(s) 0.6 2.0-20.0 LAMOTRIGINE (LAMICTAL) eCW1 ([facility]) ID Date Data Source [id number] 03/20/2020 12:00:00 AM EST eCW1 ([facility]) Name Value Range Interpretation Code Description Data Corrie rce(s) Supporting Document(s) Hemoglobin A1c/Hemoglobin.total in Blood 5.3 HEMOGLOBIN A1c eCW1 ([facility]) ID Date Data Source [id number] 02/08/2020 09:00:00 AM EDT [facility] Name Value Range Interpretation Code Description Data Corrie rce(s) Supporting Document(s) SARS coronavirus 2 RNA [facility] This lab was ordered by [facility] and reported by [facility]. ID Date Data Source [id number] 01/31/2020 09:01:00 AM EDT [facility] [address] [place] [address] PHONE: [phone] FAX: [phone] Name .................. : TODDZAKI NERY Wisdom Acct Number.................. : [id number] ROOM. ................. : TR-07 Number ................... : [id number] Stay type ............. : E/R Discharge Date......... ... : 01/29/20 Admit Date ......... : 01/29/20 Admit Phys .................... : WEI BRISCOE Date of ....... : 1990 Family Phys ................... : SEMAJ VAUGHN Phone .................. : [phone] Age ................................ : 29 Film# .................. .:[id number] Sex ................................. : F Unsigned transcriptions are preliminary reports and do not represent a medical or legal document CT ABD & PELV W/O ORAL W/O IV [id number] COMPLETE:01/29/20 07:22 RLB [id number] Reason(s): periumbilical pain w vomiting CT SCAN [...] or ureteral calculi. Page 1 of 2 [facility] [address] [place] [address] PHONE: [phone] FAX: [phone] Name ............. ..... : SOCO Wisdom Acct Number.................. : [id number] ROOM. ................. : TR-07 Number ................... : [id number] Stay type ............. : E/R Discharge Date......... ... : 01/29/20 Admit Date ......... : 01/29/20 Admit Phys .................... : WEI BRISCOE Date of ....... : 1990 Family Phys ................... : SEMAJ AVUGHN Phone .................. : [phone] Age ................................ : 29 Film# .................. .:[id number] Sex ................................. : F Unsigned transcriptions are preliminary reports and do not represent a medical or legal document CT ABD & PELV W/O ORAL W/O IV [id number] COMPLETE:01/29/20 07:22 RLB [id number] Reason(s): periumbilical pain w vomiting While performing [...] rce(s) Supporting Document(s) ID Date Data Source [id number] 01/31/2020 09:00:00 AM EDT [facility] [address] [place] [address] PHONE: [phone] FAX: [phone] Name .................. : SOCO Wisdom Acct Number.................. : [id number] ROOM. ................. : TR[facility] Number ................... : [id number] Stay type ............. : E/R Discharge Date......... ... : 01/29/20 Admit Date ......... : 01/29/20 Admit Phys .................... : WEI BRISCOE Date of ....... : 1990 Family Phys ................... : SEMAJ VAUGHN Phone .................. : [phone] Age ................................ : 29 Film# .................. .:[id number] Sex ................................. : F Unsigned transcriptions are preliminary reports and do not represent a medical or legal document CHEST PORTABLE [id number] COMPLETE:01/29/20 06:31 RLB [id number] Reason(s): seizure PORTABLE CHEST X-RAY: COMPARISON: 09/22/11 [...] rce(s) Supporting Document(s) ID Date Data Source [id number] 01/31/2020 09:00:00 [place] [address] PHONE: [phone] FAX: [phone] Name .................. : SOCO Wisdom Acct Number.................. : [id number] ROOM. ................. : TR-07 Number ................... : [id number] Stay type ............. : E/R Discharge Date......... ... : 01/29/20 Admit Date ......... : 01/29/20 Admit Phys .................... : WEI BRISCOE Date of ....... : 1990 Family Phys ................... : SEMAJ VAUGHN Phone .................. : [phone] Age ................................ : 29 Film# .................. .:[id number] Sex ................................. : F Unsigned transcriptions are preliminary reports and do not represent a medical or legal document CT HEAD W/O CONTRAST [id number] COMPLETE:01/29/20 07:41 02273 Reason(s): Headache CT SCAN OF THE HEAD [...] By Madhu Costa MD , 01/31/20 09:00, [facility] Transcribe Initials: EPHRAIM , Transcribe Date: 01/29/20 16:29, Dictation Date: Page 1 of 2 [place] [address] PHONE: [phone] FAX: [phone] Name .................. : SOCO GABRIEL Artis Acct Number.................. : [id number] ROOM. ................. : TR-07 MR Number ................... : [id number] Stay type ............. : E/R Discharge Date......... ... : 01/29/20 Admit Date ......... : 01/29/20 Admit Phys .................... : WEI BRISCOE Date of ....... : 1990 Family Phys ................... : SEMAJ VAUGHN Phone .................. : [phone] Age ................................ : 29 Film# .................. .:[id number] Sex ................................. : F Unsigned transcriptions are preliminary reports and do not represent a medical or legal document CT HEAD W/O CONTRAST [id number] COMPLETE:01/29/20 07:41 31901 Reason(s): Headache Copy for: 710 MED REC DISCHARGED Page 2 of 2 Name Value Range Interpretation Code Description Data Corrie rce(s) Supporting Document(s) ID Date Data Source [id number] 01/29/2020 06:03:00 AM EDT [facility] 1 OrderSheet [facility] Emergency Department [address] [place] [address] Phone #: ext- [phone] 01/29/2020 06:00 Patient: NERY WAN Sex: F : 1990 Age: 29yWEIGHT:68.0 kg (S) HEIGHT:64 inches (S) BMI:25.8ALLERGIES: Fentanyl and Related, IV Contrast, Ketamine, LatexCHIEF COMPLAINT: seizure, x1, seizure, d4BSQRZOGCP: Seizure, Abdominal painLAB ORDERSOrder Description Priority Entered Acknowledged [facility] Diff STAT 06:12 01/29/2020 06:31 Wei [...] Ying; Reason for Study: seizure 2 OrderSheet [facility] Emergency Department [address] [place] [address] Phone #: ext- [phone] 01/29/2020 06:00 Patient: [...] with Dextrose Physician;Intravenous 100 mL(D5W) 3 OrderSheet [facility] Emergency Department [address] [place] [address] Phone #: ext- [phone] 01/29/2020 06:00 Patient: NERY WAN Sex: F : 1990 Age: 29yGENERAL ORDERSOrder Description Priority Entered Acknowledged InitialedBlood Pressure 06:12 01/29/2020 06:30 [place],Monitor Manuelito Carvajal R.N., M.D.;Mill Platform Supervisor 06:12 01/29/2020 06:30 [place](continuous) Manuelito Carvajal R.N., [...] rce(s) Supporting Document(s) ID Date Data Source [id number] 01/29/2020 06:03:00 AM EDT [facility] 1 Medication Reconciliation Report [facility] Emergency Department [address] [place] [address] Phone #: ext- [phone] 01/29/2020 06:00 Patient: [...] 01/29/2020 6:50:00 AM 2 Medication Reconciliation Report [facility] Emergency Department [address] [place] [address] Phone #: ext- [phone] 01/29/2020 06:00 Patient: [...] rce(s) Supporting Document(s) ID Date Data Source [id number] 01/29/2020 06:03:00 AM EDT [facility] 1 Medication Administration Record [facility] Emergency Department [address] [place] [address] Phone #: ext- [phone] 01/29/2020 06:00 Patient: NERY WAN Sex: F : 1990 Age: 29yWeight: 68.0 kgHeight/Length: 64 inBMI: 25.8ALLERGIES: Fentanyl and Related, Ketamine, Latex, IV Contrast Date/Time Medication Administered Medication OrderedGiven ATIVAN [IVP] (LORAZEPAM) Ativan IVP 2 mg (HIGH ALERT06:14 01/29/2020 Dose: 2 mg IVP MEDICATION)Glenys Sullivan RKaylahNKaylah Site: #1Start NS [IV] NS IV 1000 mL Bolus: : Bolus 764229:50 01/29/2020 Dose: IV Fluids mL (X1)Denys Niño R.N. Bolus: 1000 mL wide open---- Dispensed: 1000 mL bagStop Site: #1 right EJ07:38 01/29/2020Radha Sharam RKaylahNKaylahStart PHENERGAN [IV DRIP] Phenergan IV 25mg [...] rce(s) Supporting Document(s) ID Date Data Source [id number] 01/29/2020 06:03:00 AM EDT [facility] 1 General Instructions [facility] Emergency Department [address] [place] [address] Phone #: ext- [phone] 01/29/2020 06:00 Patient: [...] rce(s) Supporting Document(s) ID Date Data Source [id number] 01/29/2020 06:03:00 AM EDT [facility] 1 Clinical Report - Nurses [facility] Emergency Department [address] [place] [address] Phone #: ext- [phone] 01/29/2020 06:00 Patient: NERY WAN Sex: F : 1990 Age: 29yTRIAGEArrived by private vehicle. ( Per patient's fiance, patient was released from [facility] for seizures. Hx ofseizures. Per report, patient was home for an hour and began complaining of abdominal pain andrequested to go to the hospital. While in the car, patient had a seizure and became unresponsive. Patientassisted to room 7. Dr. Carvajal to bedside.).Triage time: 06:07 01/29/2020. Acuity: LEVEL 1.Chief Complaint: SEIZURE and (became unresponsive in car).Not alert.Onset: just prior to arrival.Treatment [facility]:Seen within the last 24 hours at another facility in the ED.SEPSIS SCREEN: SIRS Screen negative: heart rate greater than 90. Sepsis Screen negative. Nosuspected or confirmed signs of infection present.LILY COMA SCORE: 7- eyes open to pressure (2); best verbal response- sounds (2); best motorresponse- abnormal flexion (3). --06:33 01/29/20 Glenys Sullivan R.N.06:15 01/29/20. BP: 136/93. MAP: 107. HR: [...] tablet, daily. 2 Clinical Report - Nurses [facility] Emergency Department [address] [place] [address] Phone #: ext- [phone] 01/29/2020 06:00 Patient: [...] in arms/hands). --06:34 01/29/20 Glenys Sullivan R.N. control valve mechanic, NIBP monitor and pulse oximeter placed on patient. EKG time: (06:16 01/29/2020). EKG was performed by a nurse and shown to the ED physician. Patient gowned. Reassurance given. Patient identifiers checked. Call light placed in reach. Bed placed in lowest position. Brakes of bed on. --06:35 01/29/20 Glenys Sullivan R.N. 3 Clinical Report - Nurses [facility] Emergency Department [address] [place] [address] Phone #: ext- [phone] 01/29/2020 06:00 Patient: [...] status is 4 Clinical Report - Nurses [facility] Emergency Department [address] [place] [address] Phone #: ext- [phone] 01/29/2020 06:00 Patient: NEYR WAN Sex: F : 1990 Age: 29y [...] ( pt now to be transferred to [facility] in [place]). --10:55 01/29/20 Wesley Childers RN 11:11 01/29/2020 [...] Wesley Childers RN.DISPOSITION / DISCHARGE Transferred to [facility]. Visit overview and summary of care [...] Childers RN 5 Clinical Report - Nurses [facility] Emergency Department [address] [place] [address] Phone #: ext- [phone] 01/29/2020 06:00 Patient: NERY WAN Sex: F : 1990 Age: 29y De parture time: 11:59 01/29/2020. --11:59 01/29/20 Wesley Childers RN.Locked/Released at 01/29/2020 11:59 by Wesley Childers RN Name Value Range Interpretation Code Description Data Corrie rce(s) Supporting Document(s) ID Date Data Source [id number] 01/29/2020 06:03:00 AM EDT [facility] 1 Clinical Report - Physicians/Mid Levels [facility] Emergency Department [address] [place] [address] Phone #: ext- [phone] 01/29/2020 06:00 Patient: [...] pt was admitted 4 weeks ago in [place] and 2 weeks ago in [place], and had multiple scans and EEG, to find out it's stress related; pt arguing w neighbors lately; pt was just released from [facility] ER [facility], went home for about 1 hour then asked her fianc?e to be brought here, not feeling well, and she began shaking in car, in route. Similar symptoms previously. Patient has had similar symptoms many times, chronically. Recent medical care: The patient was seen recently at another facility in the emergency department. ( [facility] last evening).REVIEW OF SYSTEMSNo fever, chest pain, [...] lymphoma. 2 Clinical Report - Physicians/Mid Levels [facility] Emergency Department [address] [place] [address] Phone #: ext- [phone] 01/29/2020 06:00 Patient: [...] normal. 3 Clinical Report - Physicians/Mid Levels [facility] Emergency Department [address] [place] [address] Phone #: ext- [phone] 01/29/2020 06:00 Patient: [...] 5.0) 4 Clinical Report - Physicians/Mid Levels [facility] Emergency Department [address] [place] [address] Phone #: ext- [phone] 01/29/2020 06:00 Patient: [...] mL/min Normal PT/PTT: (HUSSEIN: 01/29/2020 06:17) ( [facility] 01/29/2020 06:49) Final results Test Result Flag Units (Reference) PROTIME 13.3 SECONDS (11.0 - 15.5) INR 1.00 (0.93 - 1.23) PTT 29.0 SECONDS (24.8 - 36.7) \\BLDo\\INR INTERPRETATION\\BLDx\\ Therapeutic range for Coumadin and related oral anticoagulants. -International Normalized Ratio (INR): 2.0 - 3.0 for Venous Thrombosis, Pulmonary Embolus, Tissue heart valves, Acute RI Atrial Fibrillation, Valvular heart disease and recurrent Systemic Embolism. -International Normalized Ratio (INR): 2.5 - 3.5 for Mechanical Prosthetic valve. Troponin-T: (HUSSEIN: 01/29/2020 06:17) ( [facility] 01/29/2020 06:47) Final results Test Result Flag Units (Reference) TROPONIN T <0.01 NG/ML (0.00 - 0.10) TROPONIN T0.1 ng/ml Recommended as the clinical threshold value forTroponin T. Magnesium: (HUSSEIN: 01/29/2020 06:17) ( [facility] 01/29/2020 06:46) Final results Test Result Flag Units (Reference) MAGNESIUM 1.9 MG/DL (1.7 - 2.2) Chest Portable 1 View: (HUSSEIN: 01/29/2020 06:12) ( [facility] 01/29/2020 06:31) In Progress CHEST PORTABLE Reason(s): seizure TRANSPORTATION: P IV? O2? Oxygen?(No) Room: ED. 5 Clinical Report - Physicians/Mid Levels [facility] Emergency Department [address] [place] [address] Phone #: ext- [phone] 01/29/2020 06:00 Patient: [...] and hospitalized. ( Has been hospitalized in [place] 4 weeks ago and [facility] 2 weeks ago and has had multiple scans and EEGs. Just seen and released from [facility] ED 1 hour before arriving here at [facility]REVIEW OF SYSTEMSNo fever, chest pain, palpitations, cough or difficulty breathing. No eye irritation, sore throat, diarrhea,black stools or difficulty with urination. No vomiting or bloody stools. The patient has had abdominal painand nausea. 6 Clinical Report - Physicians/Mid Levels [facility] Emergency Department [address] [place] [address] Phone #: ext- [phone] 01/29/2020 06:00 Patient: [...] the 7 Clinical Report - Physicians/Mid Levels [facility] Emergency Department [address] [place] [address] Phone #: ext- [phone] 01/29/2020 06:00 Patient: [...] Not IndicateDrug Screen-Urine: (HUSSEIN: 01/29/2020 08:00) ( [facility] 01/29/2020 08:51) Final results Test Result Flag [...] PRESUMPTIVE POSITIVE CONFIRMATION WILL BE PERFORMED AT [facility].CT ABD PEL W/O Oral W/O IV Contrast: [...] results 8 Clinical Report - Physicians/Mid Levels [facility] Emergency Department [address] [place] [address] Phone #: ext- [phone] 01/29/2020 06:00 Patient: [...] Male GFR Interprentation 20-49 yrs >60 mL/min Ppnpri06-70 yrs >56 mL/min Normal 60-69 yrs >49 mL/min Normal 70-79yrs>42 mL/min Normal 80 and above >35 mL/min Normal Female GFRInterpretation 20-39 yrs >60 mL/min Normal 40-49 yrs >58 mL/min 9 Clinical Report - Physicians/Mid Levels [facility] Emergency Department [address] [place] [address] Phone #: ext- [phone] 01/29/2020 06:00 Patient: NERY WAN Sex: F : 1990 Age: 29y Normal 50-59 yrs >51 mL/min Normal 60-69 yrs >45 mL/min Normal 70- 79 yrs >39 mL/min Normal 80 and above >32 mL/min Normal PT/PTT: (HUSSEIN: 01/29/2020 06:17) ( [facility] 01/29/2020 06:49) Final results Test Result Flag Units (Reference) PROTIME 13.3 SECONDS (11.0 - 15.5) INR 1.00 (0.93 - 1.23) PTT 29.0 SECONDS (24.8 - 36.7) \\BLDo\\INR INTERPRETATION\\BLDx\\ Therapeutic range for Coumadin and related oral anticoagulants. -International Normalized Ratio (INR): 2.0 - 3.0 for Venous Thrombosis, Pulmonary Embolus, Tissue heart valves, Acute RI Atrial Fibrillation, Valvular heart disease and recurrent Systemic Embolism. -International Normalized Ratio (INR): 2.5 - 3.5 for Mechanical Prosthetic valve. Troponin-T: (HUSSEIN: 01/29/2020 06:17) ( [facility] 01/29/2020 06:47) Final results Test Result Flag Units (Reference) TROPONIN T <0.01 NG/ML (0.00 - 0.10) TROPONIN T0.1 ng/ml Recommended as the clinical threshold value forTroponin T. Magnesium: (HUSSEIN: 01/29/2020 06:17) ( [facility] 01/29/2020 06:46) Final results Test Result Flag Units (Reference) MAGNESIUM 1.9 MG/DL (1.7 - 2.2) Beta-HCG, Qual Serum: (HUSSEIN: 01/29/2020 06:17) ( [facility] 01/29/2020 07:41) Final results Test Result Flag Units (Reference) HCG SERUM QUAL NEGATIVE (NORMAL: NEGAT HCG SERUM QL REENTER NEGATIVE (NORMAL: NEGAT { KIT LOT # [id number] ){ KIT EXP DATE 01.20.21 ){ PROCEDURAL [...] unremarkable. 10 Clinical Report - Physicians/Mid Levels [facility] Emergency Department [address] [place] [address] Phone #: ext- [phone] 01/29/2020 06:00 Patient: NERY WAN Sex: F : 1990 Age: 29y Labs are unremarkable. Pt. wants to be transferred to [facility], but she has apparently been evaluated and discharged from there recently. I will speak to Neurology at [facility] and get their opinion. 11:16 Jan 29 2020. Pt. was accepted for transfer to [facility] ED by Dr. Cronin at 10:45AM. Pt. [...] to transfer explained to patient. Transferred to [facility]. Summary of care (CCDA) provided to transport team, EMS, patient, family and transfer facility via paper and digital media. 10:45 Jan 29 2020 Transfer to [facility] by ambulance as per Dr. Cronin (Accepting [...] rce(s) Supporting Document(s) ID Date Data Source [id number] 01/29/2020 06:59:00 [place] [address] RESPIRATORY CARE REPORT ==== ---------NAME------- NUMBER SEX AGE ADMIT DISC. XRAY# F/C TYPEABBASS NERY Wisdom [id number] F 29 01/29/20 01/29/20 [id number] XBE E/R DATE OF : 1990 M/R# [id number] #: [id number] TR-07 LOCATION: G [address] COMPLETE:01/29/20 0 8:16 [facility] [address] PHYSICIAN: WEI BRISCOE Name Value Range Interpretation Code Description Data Corrie rce(s) Supporting Document(s) ID Date Data Source [id number] 01/29/2020 08:51:00 AM EDT [facility] Name Value Range Interpretation Code Description Data Corrie rce(s) Supporting Document(s) DRUG SCREEN URINE [facility] URINE DRUG SCREEN Amphetamine [Presence] in Urine by Screen method NEGATIVE NORMAL: N EGATIVE [facility] BARBITURATES NEGATIVE NORMAL: NEGATIVE [facility] BENZO NEGATIVE NORMAL: NEGATIVE [facility] COCAINE NEGATIVE NORMAL: NEGATIVE [facility] Tetrahydrocannabinol [Presence] in Urine NEGATIVE NORMAL: NEGATIVE [facility] OPIATES NEGATIVE NORMAL: NEGATIVE [facility] Phencyclidine [Presence] in Urine by Screen method NEGATIVE NOR MAL: NEGATIVE [facility] \\BLDo\\URINE DRUG SCR EEN INTERPRETATION\\BLDx\\ THE CUTOFFF LEVELS FOR DETECTION ARE FOLLOWS: AMPHETAMINES 1000 ng/ml BARBITUARATES 200 ng/ml BENZODIAZEPINES 100 ng/ml THC 50 ng/ml PHENCYCLIDINE 25 ng/ml OPIATES 300 ng/ml COCAINE 300 ng/ml ALL POSITIVES ARE CONSIDERED PRESUMPTIVE POSITIVE CONFIRMATION WILL BE PERFORMED AT PHYSICIAN REQUEST. ID Date Data Source [id number] 01/29/2020 08:42:00 AM EDT [facility] Name Value Range Interpretation Code Description Data [facility] rce(s) Supporting Document(s) [facility] COL[facility] yellow NORMAL: Yellow [facility] CLARITY clear NORMAL: Clear [facility] Specific gravity of Urine by Test strip 1.005 1.001 - 1.030 [facility] pH 7 5 - 9 [facility] Glucose [Mass/volume] in Urine by Test strip NORM NORMAL: Negat [facility] Bilirubin.total [Presence] in Urine by Test strip NEG NORMAL: Negative [facility] Ketones [Presence] in Urine by Test strip 5 NORMAL: Negative [facility] Protein [Mass/volume] in Urine by Test strip NEG NORMAL: Negat [facility] Nitrite [Presence] in Urine by Test strip NEG NORMAL: Negative [facility] BLOOD NEG NORMAL: Negative [facility] Leukocyte esterase [Presence] in Urine by Test strip NEG STORMY L: Negative [facility] Urobilinogen [Mass/volume] in Urine by Test strip NOR less sapphire n 1.0 mg/dL [facility] MICROSCOPIC Not Indicate [facility] ID Date Data Source [id number] 01/29/2020 07:41:00 AM EDT [facility] Name Value Range Interpretation Code Description Data Corrie rce(s) Supporting Document(s) HCG SERUM QUAL NEGATIVE NORMAL: NEGATIVE [facility] HCG SERUM QL REENTER NEGATIVE NORMAL: NEGATIVE [facility] { KIT LOT # [id number] ){ KIT EXP DATE 01.20.21 ){ PROCEDURAL CONTROL VALID ) ID Date Data Source [id number] 01/29/2020 06:50:00 AM EDT [facility] Name Value Range Interpretation Code Description Data Corrie rce(s) Supporting Document(s) CBC W/AUTOMATED DIFF [facility] COMPLETE BLOOD COUNT Leukocytes [#/volume] in Blood by Automated count 6.7 10^3/uL 4.2 - 1 1.0 [facility] Erythrocytes [#/volume] in Blood by Automated count 4.35 10^6/uL 4. 20 - 5.40 [facility] Hemoglobin [Mass/volume] in Blood 11.8 g/dL 12.0 - 16.0 L [facility] Hematocrit [Volume Fraction] of Blood by Automated count 36.4 % 3 7.0 - 47.0 L [facility] Erythrocyte mean corpuscular volume [Entitic volume] by Auto mated count 83.7 fL 81.0 - 101 [facility] Erythrocyte mean corpuscular hemoglobin [Entitic mass] by Automated count 27.1 pg 27.0 - 34.0 [facility] Erythrocyte mean corpuscular hemoglobin concentration [Mass/volume] by Automated count 32.4 g/dL 31.0 - 36.0 [facility] Erythrocyte distribution width [Ratio] by Automated count 13.9 % 11.5 - 14.5 [facility] Platelets [#/volume] in Blood by Automated count 189 10^3/uL 150 - 45 0 [facility] Platelet mean volume [Entitic volume] in Blood by Automated count 9.6 fL 7.4 - 10.4 [facility] Neutrophils/100 leukocytes in Blood by Automated count 78.6 % 37. 0 - 80.0 [facility] Lymphocytes/100 leukocytes in Blood by Manual count 14.9 % 25.0 - 40.0 L [facility] Monocytes/100 leukocytes in Blood by Automated count 5.7 % 3.0 - 8.0 [facility] Eosinophils/100 leukocytes in Blood by Automated count 0.3 % 0.0 - 7.0 [facility] Basophils/100 leukocytes in Blood by Automated count 0.3 % 0.0 - 2.5 [facility] %IG 0.2 % 0.0 - 0.0 [facility] % 0.0 - 0.0 [facility] al Neutrophils [#/volume] in Blood by Automated count 5.23 10^3/uL 2.00 - 6.90 [facility] Lymphocytes [#/volume] in Blood by Automated count 0.99 10^3/uL 0.60 - 3.40 [facility] Monocytes [#/volume] in Blood by Automated count 0.38 10^3/uL 0.00 - 0.90 [facility] Eosinophils [#/volume] in Blood by Automated count 0.02 10^3/uL 0.00 - 0.70 [facility] Basophils [#/volume] in Blood by Automated count 0.02 10^3/uL 0.00 - 0.20 [facility] #IG 0.01 10^3/uL 0.00 - 0.10 [facility] ospital #NRBC 0.00 10^3/uL 0.00 - 0.00 [facility] H ospital MANUAL DIFF NOT INDICATED [facility] RBC MORPH NOT INDICATED [facility] Ho spital ID Date Data Source [id number] 01/29/2020 06:49:00 AM EDT [facility] Name Value Range Interpretation Code Description Data Corrie rce(s) Supporting Document(s) Prothrombin time (PT) 13.3 SECONDS 11.0 - 15.5 [facility] INR in Platelet poor plasma by Coagulation assay 1.00 0.93 - 1. 23 [facility] aPTT in Blood by Coagulation assay 29.0 SECONDS 24.8 - 36.7 [facility] \\BLDo\\INR INTERPRETATION\\BLDx\\ Therapeutic range for Coumadin and related oral anticoagulants. - International Normalized Ratio (INR): 2.0 - 3.0 for Venous Thrombosis, Pulmonary Embolus, Tissue heart valves, Acute RI Atrial Fibrillation, Valvular heart disease and recurrent Systemic Embolism. - International Normalized Ratio (INR): 2.5 - 3.5 for Mechanical Prosthetic valve. ID Date Data Source [id number] 01/29/2020 06:47:00 AM EDT [facility] Name Value Range Interpretation Code Description Data Corrie rce(s) Supporting Document(s) COMPREHENSIVE METABOLIC PANEL [facility] COMPREHENSIVE METABOLIC PANEL Sodium [Moles/volume] in Serum or Plasma 140 mEq/L 134 - 153 [facility] Potassium [Moles/volume] in Serum or Plasma 4.0 mEq/L 3.6 - 5.0 [facility] Chloride [Moles/volume] in Serum or Plasma 107 mEq/L 98 - 107 [facility] Carbon dioxide, total [Moles/volume] in Serum or Plasma 24 MEQ/L 22 - 30 [facility] Glucose [Mass/volume] in Serum or Plasma 112 MG/DL 65 - 110 H [facility] BUN 8 MG/DL 7 - 21 [facility] al Creatinine [Mass/volume] in Serum or Plasma 0.6 MG/DL 0.7 - 1.5 L [facility] BUN/CREAT 13 8 - 27 [facility] al Protein [Mass/volume] in Serum or Plasma 6.6 G/DL 6.3 - 8.2 [facility] Albumin [Mass/volume] in Serum or Plasma 4.5 G/DL 3.9 - 5.0 [facility] Globulin [Mass/volume] in Serum by calculation 2.1 GM/DL 2.4 - 3.2 L [facility] A/G RATIO 2.1 0.8 - 2.0 [facility] Calcium [Mass/volume] in Serum or Plasma 9.1 MG/DL 8.4 - 10.2 [facility] Bilirubin.total [Mass/volume] in Serum or Plasma <0.7 MG/DL 0.2 - 1.3 [facility] Alkaline phosphatase [Enzymatic activity/volume] in Serum or Plasma 57 U/L 38 - 126 [facility] Aspartate aminotransferase [Enzymatic activity/volume] in Serum or Plasma 12 U/L 5 - 40 [facility] Alanine aminotransferase [Enzymatic activity/volume] in Seru m or Plasma 9 U/L 7 - 56 [facility] Anion gap 3 in Serum or Plasma 9.0 mmol/L 8.0 - 16.0 [facility] AGE 29 yrs [facility] Hospit al NON-AA GFR >60 mL/min [facility] Hosp ital AFR AMER GFR >60 mL/min [facility] Ho spital Male GFR In terprentation [...] >32 mL/min Normal ID Date Data Source [id number] 01/29/2020 06:47:00 AM EDT [facility] Name Value Range Interpretation Code Description Data Corrie rce(s) Supporting Document(s) TROPONIN T <0.01 NG/ML 0.00 - 0.10 [facility] ospital TROPONIN T0.1 ng/ml Recommended as the c linical threshold value forTroponin T. ID Date Data Source [id number] 01/29/2020 06:46:00 AM EDT [facility] Name Value Range Interpretation Code Description Data Corrie rce(s) Supporting Document(s) Magnesium [Mass/volume] in Serum or Plasma 1.9 MG/DL 1.7 - 2.2 [facility] ID Date Data Source [id number] 01/28/2020 07:27:58 PM EDT [facility] Name Value Range Interpretation Code Description Data Corrie rce(s) Supporting Document(s) Progress Note [facility] CHMEZw8hEaIRWpIv16/XYUpdPPMid5ZcRMpzRXz4SPtnZBBgR2MsJJY4yH3sETB8EFjCQdGiYdHdORNn lbm [file] AHf62oC/3/Pot Washer+xcs+Z8r2qEbw+LRzklZfE6f8bXqGxSRn5nb5ZeiwHSnLpEMQ97/r/4kD3Ej9rtljffL [file] HprLOM2EBwPIDC/MAP/T+sketch maker+5//DyTsLLD1O50yUng [file] ogWQHTKg9G ID Date Data Source FREE T4 & TSH PANEL 01/21/2020 07:39:50 AM EDT eCW1 (Formerly [facility]) Name Value Range Interpretation Code Description Data Corrie rce(s) Supporting Document(s) 2.200 THYROID STIMULATING HORMONE eC W1 ([facility]) 1.01 FREE T4 eCW1 ([facility]) ID Date Data Source [id number] 01/18/2020 08:29:15 AM EDT [facility] Name Value Range Interpretation Code Description Data Corrie rce(s) Supporting Document(s) Progress Note [facility] JPZNGa8aRaZOVxOt53/DZBtmDGWtw3MwKQarCOy6YFsoAYZlS9MwFGT5mB0fROL3TFeCDnJrMhVtRPSl lbm [file] BWQ2SSidWOJ8BQOfJgYfAU6RZe7GXpG9AOQ7eVMuZx4KTLqlMjAZRrBkJR0LHUb= ID Date Data Source [id number] 01/18/2020 08:29:10 AM EDT [facility] Name Value Range Interpretation Code Description Data Corrie rce(s) Supporting Document(s) Progress Note [facility] PRLEGr9hSeNVYuBn66/DKRylZGZcl9YgJEetWKg0STerFABsQ8WdJYV6mA4xZZY5XTkKYgJtQxQnCUPd lbm BqMkoMYlMtIXXdLwgDIkBhWUrzNzuemMCzKF2KaPD0WZKyB76xWGWsQMBtJ5AeLAB6AKQ+Oi7XPRLxfO DoCU0OUjrP2H2oq8eSQR1m8R8lBSM0d36kocu2liU5M5immBlHIqLSCP1xXkkKSgEoca0i46tIl9Yfz8 J/3YBTqiV1m5U5nHU8glzVqQuKvGOgp0Dz4UwXYtt/ qz+DSIqrO/VvC5p7OQbiul3/XHLIH2CCtaO0USeTcp465KKpyg9rcFIDj+sm22sXioo5QuqKl/Gr/cvL vSb6XV3ZY9rduSw+izh0NVRiqMkvnErxBsS0XfLF7c4kxTwtl/NI44O1ycjHzW4ce5iQgPTWSjSHpTyo YhRz36JKB37Y1hDmjS79PCPEIVaK4TIS4U1qzDrFBH yQg9RNUBAMTb6rNMGsU7Q0IBeQHdvwsau2faJhbBITVbWevTeyWUS068lH8dwIvGeu1xnBWUxlQ9tPmw z0Zgr04TwQHLyVvcI9fUMlGJxbQ0lm8rXmxEdnM/aGyW/pjSDiNHfCgA73LVCpc7lz/TBcM/Pm/MAcMw e4OusHk9y7q8MFDvZtR9KYfequTEjznGVM++PxIlka ORLItaWZHk6q/LSFR7NhkZ5Af8F4DmQ2s+n4RhyJ/ftUOMZx+YHA538GDNoQpk8hdlHEvkrrfHcENJs6 gPeKHn23bpW22jS4hpiRvqHpK32AkCTfO9U2iKccyRjVMrrBxic6tiFmNH3/Pv8tXXvp+Nrb+bbbq9JE aYY4sonbqf3MmVQ8T6jE06hKcOJVMMQ8uBD3i13Vyz h6m7lPdqk23LdDBGBmFBhY+PtWKLYL+b4XLUaoU3D5OgO0VYAu9fv1QQ+xR8mS8jrMb9clO77u29ClUk RPshj7z3KN4pDDXVnI7ZbGWIM3I+S8YKhR79Zp4+XEe2a0ibkBqLufrndFWQAdmn8IH1E+ItpzLLH/LK gKcmPGYm08Ea7EljRNxbq07LROGoO8aFfPgIT5Rm6w rENBW2JfHxNx2xzy1TO6uC2H8GyECJY4OnxH3Iux6YFg0D8qxQpASn1ftfLYSaVBPrhticixd6zvVguc /rfLjyv9XhEX8E7Hf4O10l2rlKcqopWiqkuIVeOMF3GrnT0rhFRxrjZPjZ3CBLHb3S9CvJX5yYfajTPe XMKdFrdWgzhmOGKqFdU0zUx8zhvhbzkaPWIOmYUzmO qwJ1f3SuB3cmSOKKWS1z0IHxeqf8McN5jbeJQ/xP8NZ0xya5Rxn2/xI7O0Ph0cK1Xv+Sn765osz6dNBC porwuiB5+VTXh0XwbHnhW3AfR3dsuVypg49iS75req/7CsS/sketch maker/2wQR63LR5B6h3OEwD6zN9A2Zhr8sC [file] rV9tr33MB70kqFm86byg0mmx9a3aUg0ZusSo8gTr4WL/VG1qjonnH5/XvR/tCBwrUMpG+Meléndez+Mufs0DO [file] AgICAgICAgICAgICAgICAgICAgICAgICAgICAgICAgICAgICAgICAgICAgICAgICAgICAgICAgICAgIC AgICAgICAgICAgICAgICAgICAgICANCiAgICAgICAg ICAgICAgICAgICAgICAgICAgICAgICAgICAgICAgICAgICAgICAgICAgICAgICAgICAgICAgICAgICAg ICAgICAgICAgICAgICAgICAgICAgICAgICAgICAgICANCiAgICAgICAgICAgICAgICAgICAgICAgICAg ICAgICAgICAgICAgICAgICAgICAgICAgICAgICAgIC AgICAgICAgICAgICAgICAgICAgICAgICAgICAgICAgICAgICAgICAgICANCiAgICAgICAgICAgICAgIC AgICAgICAgICAgICAgICAgICAgICAgICAgICAgICAgICAgICAgICAgICAgICAgICAgICAgICAgICAgIC AgICAgICAgICAgICAgICAgICAgICAgICANCiAgICAg ICAgICAgICAgICAgICAgICAgICAgICAgICAgICAgICAgICAgICAgICAgICAgICAgICAgICAgICAgICAg ICAgICAgICAgICAgICAgICAgICAgICAgICAgICAgICAgICANCiAgICAgICAgICAgICAgICAgICAgICAg ICAgICAgICAgICAgICAgICAgICAgICAgICAgICAgIC AgICAgICAgICAgICAgICAgICAgICAgICAgICAgICAgICAgICAgICAgICAgICANCiAgICAgICAgICAgIC AgICAgICAgICAgICAgICAgICAgICAgICAgICAgICAgICAgICAgICAgICAgICAgICAgICAgICAgICAgIC AgICAgICAgICAgICAgICAgICAgICAgICAgICANCiAg ICAgICAgICAgICAgICAgICAgICAgICAgICAgICAgICAgICAgICAgICAgICAgICAgICAgICAgICAgICAg ICAgICAgICAgICAgICAgICAgICAgICAgICAgICAgICAgICAgICANCiAgICAgICAgICAgICAgICAgICAg ICAgICAgICAgICAgICAgICAgICAgICAgICAgICAgIC AgICAgICAgICAgICAgICAgICAgICAgICAgICAgICAgICAgICAgICAgICAgICAgICANCiAgICAgICAgIC AgICAgICAgICAgICAgICAgICAgICAgICAgICAgICAgICAgICAgICAgICAgICAgICAgICAgICAgICAgIC AgICAgICAgICAgICAgICAgICAgICAgICAgICAgICAN Cjw/mSHhC8zwvFLpohY3R9epJa5ELm6XCY7kf3FeNYIfCLfpiiPfOruXQbCuHSIiOnlGRjb2OTckUY8B dQWmH6EyZ9JwVBroDM2POXZhFIQhxLUzXNQwLHCsQkF7BAUtGZomYP0LtZGpDAhnQWVyUIFnAtAeGJXk OSAwIFIgMTEgMCBSIDEzIDAgUiAxNSAwIFIgMTcgMC SVUI8RMlFdL3JbnM18WCuBXf7+PUpixzIyQfhPOnU3KSMmp4WjSFh3TX1OFWKtNgqpr0OeKgLfMZCFDB prHK6XYCI0GSJ5BYJkCx9WXENkH909pxFvLG0XBw9IHwYtMG3xpj8CApHgKBVnPheQHyr7MThrCW5GdW FyWLrThh8kyqLvtmMDq9AscyGkvKFLTQCbSMM2rh5p fphpZSIyJSVaAY8kWM3rCZUdDBB0ZuJkVQRUZD2CKMXiVFRycRMeSZDiLVIMQJ1RIVfjZGQ3HZKzxiUi sTLrERjvKN0XLTLfwbCfYiUlIOMDWEn+Vo5UEH3tt1PbRZylQfAaLD9fbb9LOPfLVsCbH7U0vQTmP0Z3 PUzkNs4NXXDgIPJsRzJfIYYEPSnmMR9JCF9qliH4MO 7QxLBzCNAwARKjiTJpMJq9O90hrGVaQMpnBR2HVDS+Sadie+Dr0MFWCnCJHcQULsSyKrWZFIZeXiM9HaC6 QVz9OwA5JuOL45qGnuhpFsOJuvHL2QBM5tCLSxXHYLUX4DlAJsuO3qdrPkRPHbJHGSCaQdT59geCWrQV SqYDCbBOFaZi3LPHJbN7OkgxDlzAlxzmEeODYgQFKC SY8JHVeisbFtgEMrrAagAU52gWsnUW7NRd7KKpPzKL7kyw5NiSMaGu4PCRHvDn1ELXJdJIMhOQAbOBH1 PMEkFmJgOPszZTDoGCSkSEB5SVSdJLZmBQ3QLyCgSGCrOrG5WUSiYMUzXRPuxj0OMWDnQSOwALTvAMFi TJTePTItELldVEOpQAVoYJR4HZRaJWZePX8IKzZqCX UkHGM5XWHpJDCrDPSkwf8BJEChQFQmBnv9SxJgFBOaVGFbHYszAAUgDPE1OJB3UQAiTCWkXN1VCxAcRS ZvXCwfWwPlNOJoCCDxuo8HYTFdXNBrIYBlEVFvGUZyUISbSVgtQUKoENLzQrT7AQBqJDXzNH4SUbLjGY CpLEP0DRJfZWPtBNHyrh6AALCsHRBsNzj0QOGoWVYv NHPbBCpuLVGqVLC3NOB0YQLcHHPiBB2BVwUvYENaDJK3HrTnYGKyTXWsui6MENAtCCFpJJDbJDQsFNWx UCHnFDhrYCXzCQJ2PdToRDFkEZPmSM7FIuPhGATfWGq1YPddFLDpEOWpdj0OQRAjLSEvJQXrYGOkDNGf ZVLvYUaiKFTkIYCwBGV4PXSzOEBzRS5GZgOcHIIzVb WzFnOsFNKlRSFdmk8PAQFvRZOpNXV7TCQoKVPmKJGvXCtdHIAmBEHvDJV0SDHlJGMaEH0NWoZuFHZvHi F6YDRfPPSeTVQlwm0EVBUwQUFiVmv8EWNdOWAeSFPmYMuiOZOoBEZ5LnT4FSOeDQWhYV4HHhHzIINhLy F5KKpcZHOdCJKbiv3TETQzPBYdZIr7THIcQBYmLPZl QUxySMNiFUC4WYK6QCYbYHUxTO3DIgQwYOUsWlKwIOXrPXLzAHLmeu0BJRGrQRWnJtZ1ZBGdAUGdUMZl XRqeMAEtNNI9Ciz8NFNyVLWcYJ9IBpZlIDReFhA1DbMjKZEsWNHxla0ZGPMpJVTfUbn7QUBeATJgEFKy AVoeORGkYOZ0ZoU6CTXeSTVcCC7USvBaCGIgQhl1Do XpYOCfIIAhyb1QLQLnZKZpUGG3QxLcWEBeIZYgLRn4aeXtwHIyTAn0BW3FV6XfhvZxXqtOUi6Sg711MY U2EEEcAx8DO8uwGo8oDKJyATUBRg1SUTo3NeW0MbcvLUZeOPtdJoO3TJMoTRC8XeXoKSB0GNF9IiE+ID p8IXokP1EfNsWxMZDaNUWwGxJ2EuT2ZlT5YRB9TUs9 CS7iWQJKUd7+OWdkuZVfeOuzYQXLScP2RAMzQQauUOXIGl1F ID Date Data Source [id number] 01/16/2020 01:09:59 AM EDT [facility] Name Value Range Interpretation Code Description Data Corrie rce(s) Supporting Document(s) ED Provider Note [facility] NDZFWk8iEoREZiCn47/NTTqsJAVys8BwTOwwLKu9UGizDVQbR7GhCFO4kV4aKSE7WRjCLiEkFwArFYSy lbm [file] Press Operator [file] WGIGSjcXYpFBMJb0KweqUmeOOOZKFlIUzkLXEOghFa lWjmCw9cDUYlUL4yMr0lPDPtIFR6NpX1UDSZQU9RXIUyTXAdqTRpTWU2ZYMaFaFwOMtyHATmUkY1CX88 kVqwRX2LWHJkZIAmLZ89UHXuSZQwGn4MTWNqZKWklxG6WHXmKUYRRuIhI91peFNzKuXyKEIWDEp+Pg0K ZT4bf5NgFZp3KgJkOB7gee7UXQxYUjSzT9DnxUcjKO TRZD2tcROjNJS8URhnlBBrOYBfgQKgq7ldvilvWb4xRLMqIN9sBj4hQJFwKOE7WuI1TAASKI3QSVVzOI HliUSaTCP5ORPlXmHoFWrlNJCgKDJ3AU40kGsjPW9QCSHhLJWcPP36CBPvOGCuQo9HFFWmKNBdutM6QK AwIFINCj4+KTnergIiTrtBKtVqBRHhz5ZvQVl4WS6X BWSkSZmkVG2KAMRfyW2rXRnvYA6RUjP6ULGdKPBHJyStQ76bxWJgMQb6B5KgRkGyFVNfOzbdCZVfARab TmFtZXMgWyBdDQogID4+ID4+TOvjYY1BUAxcylQyDYUaMv2KEDQlPRAhZP3lPFHpNPZgO5E5hSswLFNS IbQlA6yqxirsPV7gOUZwL954fQqzobMtUWEpPQPxHy 1SHRHvJEP6GXTmrLYqUPWoGUPCQAulIS3XbAFkPTO5gV2iCRlcWDArZYBrL6aRVcCmzDjjQB41bUgjfy VsbCBdDQo+Fl3XQN2ee0HpIRc6gxMiSWaoHRO5MDaxVSMcDQFoTEBkQIU2EUW5HONAWdHaFCJyUYSwTA ckSXDmTTYurd7HTVMfDBH0NAh1ACNmEOWuVOFlWOei VMFeRRyiSeFsLNMyPBYzOU7DAkUuRDQoSMZcHOzsVKUtWUFkim7JLXBoQJKqKyI2IcVtRCTyBDWmPSvt UCNyGNJxPgGyPVDwQLBaAE2UGlQgMVJfOGI5BuBhSKEmAXMiat6FISDyKGOrAdZuJtRaPQOrVIOzVSlh QBVuMSB5GDNoSNJhOAGuVT7FWmFbAUOoONrpKSHbKW EsMIEpqu2UKQRlZMCbNaB5PyKtBQAiEWVpDDytRVFuQGIuZRL6JHYlFYNtYO9OUdLlGQVzBOF5PGrqDF WfSSItuc5KYSEdRJQoLVsiMQBrYUZnRTLuLFdxZPXxQCG3EfZnCRSiACMzHT7BQcDbCQGhHSh4HejvDB IeWMJhan6FYHUxXNLkCYxcIGVpQTVaCIDzFOxlDLWd ICFwLMX2PWZlAFBlBL9ZBlGeQSIqOpScDBMyAKIbQJSito5NGOWrVKUxJzX2XgGmLKHuZLCtSNjhLUTb QFE4SVDdFCZsMNNpDF5CCrBdDSAcIcYyIWeeTJCwETGzuh8ROFWmEINsOQq5LnVnMOBrCWAdBNncXMAm VJM5UOr0AMVuHKDcZM6NHsYxAUBhLbq3SOibOEZcWC Njzu6MXALzDIPoKFP1LHHcKPDvVDIkMWmjPEBvNNXcZqN8ZSVkOTQnIF3YFtSkAEVaWGH8BfTmFCIjUR Ubqe6MITTdTBH4KjK3HOPhOJRlEMUkNQpsEOUkYQGgSQK6DPRwWTTqPB8PVjJlZTNhVYF9VepuPTDoOA Oibp4REYMsVDN5QVQeZEIlYWAmDYWoLWccLEGmVRO7 AIT0IRAiMBMiFP0MSkWlLTSxSSL5GlBxCQApCHDqpv5ITPTpVIP4WXt9NLRrPSGlSTQlKIfsPLExYQP7 HBQ3PHAiBZNpOW7JAhVrYDZnXlK4IwKhWRYzULZtpg8MTSMuKYW4KbF1FaIvSHQgRLNrWCylZNBoOJO9 XWsbAFXdYZXhNU8ULgQrRDHuXlptTwIhHGHwBJAijc 6TEKSuENV2QgZ0WYMaQTOsANJdWCgySFWcINP7KRX1SYMyXNAxZC8WQfFhXXPwRgjwYRZxUYKhPDMrzk 9GCFDwIZY8IPP3UhGvHDJqIYZdXXdpNVQtBGs7XEP2VPIkBLLdSD6YIaMtIJEnIWPeOsMqUFAoPWZayv 2RLCPeWBJ9GNL5XcKxTFOgXMIdFFddVJDvTXsxEjqe BFMvDHMsGF3DMqRcWYPwIFH3NwtjFIKjURFbeq4PSYWlZGX9PWU3RZJrFXIoTTGdRHjcSEUdFHpuWisr OFObVLSyXH8EIxGvOSWrVKP8KxQcASGjZQJzaj6UUSVeHCT1MuVsUbKpITHoYXHnPOldKUVqUGsjCbU4 JJHcLCAjKK7PUhTmWDOjILF1MTqvOVKsNBPiss3GBJ ZqIQT3VdF3FTMiFRWeNNQxVFfvUFEdUMssCfE9CMYpBSWpAD1BBnXpRRZuEQH4HEPfXRHpUKYoup2IIF ZqOOX8UQCzVKPlSTCzQJXiNPjxUQHuCLk3PvF7EYWjQFWsIT5ACsUjEJHgIVB2JIXfWGSxPSVhdi5HZA FfZIR0IOY4XFUgLXMcBWTsMJlwWPUfGVn4UHP7XRKj JKPfXZ8JIhNhVXqxYMHXEcf1RZcpA1k4OEH0RD5YI1Pjf2CjHzZbVBQLORzeQP8nmpHzDHYtPo8EY7mA TrsnXzV5IFMiIUs3GMD4GYceN4MiA8Q0JRp7P3B1AvHeFI9xHBTwQRO0HoFiDrZ0FmR7QQWmQQNoHjt8 DJDtNxo1DhG9OnCgPQ4AXz7ORcZ6MVT6wUUlDs5VQTBoOmJQZbAxEM7ZYDv= ID Date Data Source [id number] 01/14/2020 08:03:12 PM EDT [facility] Name Value Range Interpretation Code Description Data Corrie rce(s) Supporting Document(s) Discharge Summary [facility] EBSVVi9mOvRZHlKg91/XZGkgFVJkt4OySAhpZVy1BXvjIHCuU4UrFZC5gP9aZLK2WMcHSzNlHuJjTCG2 lbm [file] ZkiDqHrOMhEXh5Xf/deputy jailer/NhpLOt+NUK317NBVbdeKi [file] ICAgICAgICAgICAgICAgICAgICAgICAgICAgICAgICAgICAgICAgICAgICAgICAgICAgICAgICAgICAg ICAgICAgICAgICAgICAgICAgICAgICAgICANCiAgICAgICAgICAgICAgICAgICAgICAgICAgICAgICAg ICAgICAgICAgICAgICAgICAgICAgICAgICAgICAgIC AgICAgICAgICAgICAgICAgICAgICAgICAgICAgICAgICAgICANCiAgICAgICAgICAgICAgICAgICAgIC AgICAgICAgICAgICAgICAgICAgICAgICAgICAgICAgICAgICAgICAgICAgICAgICAgICAgICAgICAgIC AgICAgICAgICAgICAgICAgICANCiAgICAgICAgICAg ICAgICAgICAgICAgICAgICAgICAgICAgICAgICAgICAgICAgICAgICAgICAgICAgICAgICAgICAgICAg ICAgICAgICAgICAgICAgICAgICAgICAgICAgICANCiAgICAgICAgICAgICAgICAgICAgICAgICAgICAg ICAgICAgICAgICAgICAgICAgICAgICAgICAgICAgIC AgICAgICAgICAgICAgICAgICAgICAgICAgICAgICAgICAgICAgICANCiAgICAgICAgICAgICAgICAgIC AgICAgICAgICAgICAgICAgICAgICAgICAgICAgICAgICAgICAgICAgICAgICAgICAgICAgICAgICAgIC AgICAgICAgICAgICAgICAgICAgICANCiAgICAgICAg ICAgICAgICAgICAgICAgICAgICAgICAgICAgICAgICAgICAgICAgICAgICAgICAgICAgICAgICAgICAg ICAgICAgICAgICAgICAgICAgICAgICAgICAgICAgICANCiAgICAgICAgICAgICAgICAgICAgICAgICAg ICAgICAgICAgICAgICAgICAgICAgICAgICAgICAgIC AgICAgICAgICAgICAgICAgICAgICAgICAgICAgICAgICAgICAgICAgICANCiAgICAgICAgICAgICAgIC AgICAgICAgICAgICAgICAgICAgICAgICAgICAgICAgICAgICAgICAgICAgICAgICAgICAgICAgICAgIC AgICAgICAgICAgICAgICAgICAgICAgICANCiAgICAg ICAgICAgICAgICAgICAgICAgICAgICAgICAgICAgICAgICAgICAgICAgICAgICAgICAgICAgICAgICAg ICAgICAgICAgICAgICAgICAgICAgICAgICAgICAgICAgICANCjw/bNKkP6giaPDbsfI3L0fuDn7POh9T KX7rf6IfWRZqICenluTvSduOTeXhYSUeUgcQHjm6EQ yeZY9JbCKmL9VxB7CyBRtfNQ2DJWKhWDNxuJYwRYCvRZKhJdD0TDRxPOffXV6VdUFzFFxiVEShWMXjPs NgNTLaIDMzDGJqMUIcRVAGIVNcAALmOzZmHMsiUF6Uu5GofEZ2YDu+Ge9NFF4sh8GiGFngMKGmZG5ymn 7ASIqTEqKlK1AstgI3DJReOWBtCj6DYCViRLFgnTTu QPVtYBQZIqUyR9UawC63HRGIYh8+CQlylgYgGdaVLcRlQOUon7BwXCb5OG7CQLTrKUf0gKNfWWlvV5bp ovywJSM0cC8opaibZqrcDvjjMYLOq9aiBeeyGTBeIEUmFB2zCP6vLYZmHYR1PgEsBSKCRU6CRWAvEPLv zJHhUQSlUZWBIO6YIIejKDZ2VTJsdwTkmZPcBFaoSG 9QYXJlbnQgMzAgMCBSDQo+Zv4AZJ2jn9SlSHaoKlCwHB7jzz1NLXkRWbJvE3U2aTRrS7K4JOeaHs6ZZV UaOUHtBaapDKFTXShmAG8ITJ2wahF5HR5GvIRfLVXbPSUxcTOqIEk1L22uiRJeNTohRK9QOJH+Sadie+Pg 6KOOPhKAMuZZDdTeCmYYOAJyIzB9LjI9XCd4TcH1Ll MP86iHflwqHtWOifGW0XQH2eKGEdWKLZRM6JzUNpxT3kmvFqKDHxXYPSSxIrT58kiMMvZJOrMDK7UJTi Wn0MISAzC1JqmyCkwLhfrvAjDRRtGOWGUO5SNLeywcHbxYAazIjnEF07vRljFB3TOk0MJmDeSW7gxb0H kXRkBd9KTGHtOf1WKXDcZGOuOYEsXZA0PIOjGrGeDY ddFCMiSOWeOIG2BEPeBHIrDA4AOuRcFOOcVgJ2GnOkGKFuOANscb3HDCBuLCKyCvK1PRZkFKXqVMEtEL axXCGwGHEmOCH2NPKuZDTcIJ5WOcSeEFLpIEU4YGFzBOFhMFDhun9WZJOtROTyNYX7HDDmUMIwXNPbOS adOZYmXYW8GwDyUZViHTWlLN3XArXxTTTwSZh2WpYl YVErFOSsoj9IUSDcGKJsLBP1DdFcZQCgHVSqDZnxWJZgMYXgEUd7NSNeALRhBT5MCaZfEXIhPVD5KvYq HYZmXSDjwa4HYVYcZMYrTGK5CAKiYAAbGLXmOAwzHRZdNRC5ZYmxNPFeFBTxZV8GNpAjXYSuPCImSJWf YPXwKCIhmm1QJCByLOXqWgO4YkHmEJAkLBRfPWxeEL MoVMB7JUKbRVFiHKOcKG6TBeZmNNWeBHS7AcOpCDIpJNZzje6RBXCsLPSwKdK9GORvWDRzVXRdBGlgAE CiVUD4GVg4KBSdUOGiHG4ZWaLzQPPdLSodIjQrXQJsOGXwcs2XNQTxYZDaZWQeRANnWEIpFXWrSWnlRQ KrHGG0DmYuJDWnWJXaVN4ADjOwTXYxGXq2EXMkOIGp ZGIayh2HZGInPBXcDBanXWXiSAEpHMFlNZhaKCXtPRDvXZA0ZCOpDDWcVO7JGwIrYQUjXvBvTcrtRGDg JCWzel8GFUYzGMRxLQC1KxCpCRDqUKOhJPudACQrJJBiEyEpLLLtTHEmGD7JDvCbFULrWfTfLadzMSXv KDVgvr9GMSWwRKKyPmC3UvLtMZRgOOSvLJubANPbSE NpHfU7BHNcYGPqYL9TOgUrCDAeElW3RDFaPFTmDLSxwt6LmVCmaGavct4IEUaIHc9UlMqdMNOkWNqzFz 4wyZEqTcXaFADCCl9UrqWiMZAwVNCKWRjzPBZqBEvrRjP9EFNpFxO4BZGpKpP1PAP1OGZaI1J1IdGlYu F8JmW8KWIoAmDkCaCkUUA7X4GlDRJsEuK7WWA8EgRh JPN8Enr+MY8nBJi+Xz3Gy9QemyC9lcVnNHbrRUP9Ic7FKJTLD0EKEy== ID Date Data Source [id number] 01/14/2020 04:27:39 AM EDT [facility] Name Value Range Interpretation Code Description Data Corrie e(s) Supporting Document(s) Leukocytes [#/volume] in Blood by Automated count 5.4 10*3/uL 4-10 [facility] Erythrocytes [#/volume] in Blood by Automated count 4.39 10*6/uL 4.1- 5.3 [facility] Hemoglobin [Mass/volume] in Blood 12.1 g/dL 11.5-15.5 [facility] Hematocrit [Volume Fraction] of Blood by Automated count 37.4 % 3 6-45 [facility] Erythrocyte mean corpuscular volume [Entitic volume] by Auto mated count 85.2 fL 80-96 [facility] Erythrocyte mean corpuscular hemoglobin [Entitic mass] by Automated count 27.5 pg 27-33 [facility] Erythrocyte mean corpuscular hemoglobin concentration [Mass/volume] by Automated count 32.3 g/[facility] width [Ratio] by Automated count 14.9 % 11.5-14.[address] [facility] Platelets [#/volume] in Blood by Automated count 180 10*3/uL 150-400 [facility] Differential cell count method - Blood [facility] Neutrophils/100 leukocytes in Blood by Automated count 58 % [facility] Lymphocytes/100 leukocytes in Blood by Automated count 31 % [facility] Monocytes/100 leukocytes in Blood by Automated count 8 % [facility] Eosinophils/100 leukocytes in Blood by Automated count 2 % [facility] Basophils/100 leukocytes in Blood by Automated count 1 % [facility] Neutrophils [#/volume] in Blood by Automated count 3.19 10*3/uL 1.8-[address] [facility] Lymphocytes [#/volume] in Blood by Automated count 1.66 10*3/uL 1.2-[address] [facility] Monocytes [#/volume] in Blood by Automated count 0.44 10*3/uL 0-0.8 [facility] Eosinophils [#/volume] in Blood by Automated count 0.13 10*3/uL 0-0.5 [facility] Basophils [#/volume] in Blood by Automated count 0.03 10*3/uL 0-0.2 [facility] Nucleated erythrocytes/100 leukocytes [Ratio] in Blood by Automated count 0 /100{WBCs} 0-0 [facility] ID Date Data Source [id number] 01/14/2020 04:47:09 AM T [facility] Name Value Range Interpretation Code Description Data Corrie rce(s) Supporting Document(s) Bicarbonate [Moles/volume] in Serum 22 mmol/L 22-29 [facility] Chloride [Moles/volume] in Serum or Plasma 105 mmol/L 98-107 [facility] Creatinine [Mass/volume] in Serum or Plasma 0.59 mg/dL 0.50-0.90 [facility] Glucose [Mass/volume] in Serum or Plasma 90 mg/dL 70-140 [facility] Potassium [Moles/volume] in Serum or Plasma 3.7 mmol/L 3.4-5.1 [facility] Sodium [Moles/volume] in Serum or Plasma 138 mmol/L 136-145 [facility] Urea nitrogen [Mass/volume] in Serum or Plasma 5 mg/dL 6-[address] [facility] Anion gap 3 in Serum or Plasma 11 mmol/L 8-15 [facility] Osmolality of Serum or Plasma by calculation 283 mosm/kg 275-300 [facility] Creatinine/Urea nitrogen [Mass Ratio] in Serum or Plasma 8 [facility] Calcium [Mass/volume] in Serum or Plasma 8.3 mg/dL 8.6-10.[address] [facility] Glomerular filtration rate/1.73 sq M pre dicted among non-blacks [Volume Rate/Area] in Serum or Plasma by Creatinine-based formula (MDRD) >[address] [facility] Glomerular filtration rate/1.73 sq M pre dicted among blacks [Volume Rate/Area] in Serum or Plasma by Creatinine-based formula (MDRD) >60 [facility] ID Date Data Source [id number] 01/13/2020 09:34:16 AM EDT [facility] Name Value Range Interpretation Code Description Data Corrie rce(s) Supporting Document(s) Consultation [facility] [id number] m [file] ICAgICAgICAgICAgICAgICAgICAgICAgICAgICAgIC AgICAgICAgICAgICAgICAgICAgICAgICAgICAgICAgICAgICAgICAgICAgICAgICAgICAgICAgICAgIC WmHSFrLT1DJXFyAYUjXVApMUUtGGFvMEQjMAUjQJWvKNUpKCXgLUMxFBUuCENfQRFqIORqAKEuNJDuDS AgICAgICAgICAgICAgICAgICAgICAgICAgICAgICAg ZPRzVKIgAXIqZVNuEUNaIT0OBRYeAWUmQKXsDMYoBSXxBGQjJINiFEZzNHHaMEYjTCLuJXUlMZIfFEHx XZRnNHAcVGSqMTMxGVBgBVLgBOLlHUAjOGUxYPVcCWCkZWIgRTSxVZDeXJTaFROdOTXaJSLjYQKqXT8G ICAgICAgICAgICAgICAgICAgICAgICAgICAgICAgIC AgICAgICAgICAgICAgICAgICAgICAgICAgICAgICAgICAgICAgICAgICAgICAgICAgICAgICAgICAgIC CeJXLuPCGsYN4AZORgMNQfPSVeQLPrUDUiNTUfQIJzGGKdKWFuIGZtOCBvQWNoVTXxPDEnXDXfSGGyJA AgICAgICAgICAgICAgICAgICAgICAgICAgICAgICAg OXPiLEIfZHUeJBPwGTQvXBGwRM7SITXmNZNyUEEeXYKwYJMrNXPdIMHsCTSoAFTpVDBjYBNhRLMoOGDt ICAgICAgICAgICAgICAgICAgICAgICAgICAgICAgICAgICAgICAgICAgICAgICAgICAgICAgICAgICAg MF6TTVSxOCCrBQFiJJElRMNfWLMiHNEoPKKhVCJcYN AgICAgICAgICAgICAgICAgICAgICAgICAgICAgICAgICAgICAgICAgICAgICAgICAgICAgICAgICAgIC CiWAEwCVWmCQMoHE9CPGHkSWGxKQCaFIPuFWDeCFOqBMNbSEMpRKNhOKKzKFWhPNFbJELkYGPdHTJfCI AgICAgICAgICAgICAgICAgICAgICAgICAgICAgICAg EEGcZVTxYOLtWVMnGBQxCWKgUVWuTL5CKXWaRSKxLBCxWVEpLEVcGANsWFYyWRPmKZHvVUEhRWLyUPTi ICAgICAgICAgICAgICAgICAgICAgICAgICAgICAgICAgICAgICAgICAgICAgICAgICAgICAgICAgICAg LQEaWU0ZJRXlPRHqIVKeINIiNSFkFYYiSUZzLOOzFL AgICAgICAgICAgICAgICAgICAgICAgICAgICAgICAgICAgICAgICAgICAgICAgICAgICAgICAgICAgIC FaCFQrPCFyWIJyGNXyWJ3XIW10yXOcv4B0RFOqTL6pdjm/Cc8TUUxjenPrsFHxDG6PAhPjQO9uye4UKd HfLG5ujg3LUSaEUnPoK2G2zUAjNMJgNHLSLbQoK80y MLqbLd82WOoiDPIoTqHuHDq2Zs5MDtEoY6bkGWXwBrN5AMJfEbS8UJKqUoUqIXgyAK6Am1ObsXGqWLi+ Ao2LOF2jf9YcMShxBlSjNB1ofk4JNTqJDvElC0EkuuT1WQGuDLByCf2HMNXgQLKsxFZyNeMsMNDRAzQn O2XtaC24COBJEt4+NItpufZpCeuWQoSlWHZyy7QlIY f2GF1UTOZxKPl0kSTxN07ap6BnjQMtBmhfVqLurYJverrwCHDGFNUeaN4idO3iCVFKzOXnuNZeBLPuAI 5hNL3eUBHiYBK6BnOpNUDGQB3KGSHfTAUslCOfPOPaZYULAA4YAUnfRQN7SLGejpWctJReBEhcLR0EQV JlbnQgMjIgMCBSDQo+Pf5AXM7gf9KgTLxkZDWyFY9c hs7QASwSJuCjS3A8oGEtX1T1GSxzCo2FXAHeWYHzJbMdELFQHKdqXE8JBU5dcrM7HR7VxDQwFDXeLPKt yLWzKEl6Y67qoGSfCWcbUH0TDNH+Sadie+Wa3YQLWbQMLwUUCsNiLeUNYPNqEsA4BkL7EJi3CtH1GeRI86 mAtjqhMyTCdfAN4YKL4vQHTrAYHUHP0EzCMhyL9alf RaFzIoBOAKLsVeG50enIPdYRViURPjMBLnHs4OSWXtS2BxccDgjMncoaBbFCVuTQKZFN6BAJakicSfnK KwxWvrFJ16qGyiSE8UYd3LUsRmLH4apn9AaGJyXe1IQONcJE2BCVSuQGCyDFZiKYG8UXUuPnMbXCqyFD YdSSFkKEG7TVEeSPOiRV3XKnFhASUyLHTiVjIpEZCg PWTkwn0QZLQlQACpOxE2YlKzLIHdLXRsCCavJCUiVBSaQXJ7LBIaQVTlUE3PMlAzMLCtTZB4TFCyHHSj PIZipt7VQWDeDHWiTtk8BXNaZCHiQKNkGRebDDSxBRC6PgZ8PMYhESNhGP7BWcRvGLAuJMF6MjBvWKLb LZTbnp6FESEnAOIjJVz3WSUaSKSvKJCtHXtkOPGrIX Q3HMg8QEIpQATtSG4WPzVdMBSfPFJkDbnaWZGyDVStcs4SUVAkMKFlCrJgRcSyHABqNKFxZOplGDKsPT E1GHH6IFGqZTMuCF4RUjTuXBOfEAr6DJnnBZQrQNNowh5KQHIyMKWzEFB5OyZcNHPmCKVgNZpgSBInUQ M5Vjc5EWXqTJJnRW5XXwIqCNBtWUf7SoWjYLZyPZSx nd7NVRKsJWBcSSuwTyMsREVfZRLfAErbHKLnZMVpRJCzJJXjTAZtEU7SBgDsGTQbCOBoJFDiTALaCLMz vr7ZDPFbEALjQDz2LoZrGUSsCWOeCPkhEDXlNPFaNArmWZRpZSNrXS5RRoEmPVQnXOKrLhDcHOFnJNFq sz1DMPInNZMuQrKmSgBdKYFoZXDlQBc8pnRswZJmOE r8ZH4PK9YodpQjYfRCLd2Gc858TFF3GUYxCb6LB1anXu8gUQJeUABPUw3DGIg9XRdpGEU6WDWtM2SvBM PgEKRiCSe6YFF0V9HuWmH5LMV+HRqtO4FlWEW7CfRxSeCfErY5XSGlUFmzPsu7JBO0LYG2Yv6xXDHJRb 4+FLefvKFqoQpsVNHVGwNuHrDbHNsdSOPVKb6H ID Date Data Source [id number] 01/13/2020 08:13:48 AM EDT [facility] Name Value Range Interpretation Code Description Data Corrie rce(s) Supporting Document(s) [facility] EYASYg0xPhMIPaGna5TuTuBcFJRfQV1nrwm4Z5U3kIZbJ8IesWMdk7qiW2HlJ1YtBDFeMAWOGG5CgPDx jb2 [file] sj+RUEZL6RJHYdI+PzmUHNH3QYYIvoDRrEVfSpwTUP a2q4FB4FcckRvT1TZ763m3M8S736RDbQWw/WAlED6frOhOR93yWqjHwZfIhuxWO2dfMSloOwOAYFdOHY 6797IFGoEvQekQIZYfdvEG7hbJNVVhqw5UtvXt66I64cZw27Ct8ZvpdFtyM7EPNbzjP+lisXnVY+lr3O 1DJvX/9JmXqIiae5E6yjtF87XYN4Jqm+xyv7eK18Q8 r9QizWm++fenrif0d93oZGKmay+RoqegydoYq8CIlahddf9KvYdqotQv/IUGf5dMjLRkEEE/gL1tm+fY N1ti/5sfWMiEZc7MbZojhcZa/LVb96+Ms2ZDWjB6xAO+hXm0DC6jhSPV0P5FXmaeM24NNuYBcDjJvds2 r9DVdzhFmahwOFHqigamdH3gFiY3n5rvrEWBIzBtVO vzRXiEFMewshoeAT3rVupYENQRDMhzVgMZEvvTpxIsKQUyNDTnUgEO3XNur9KglICw2CxCFTI1WdyXLU fLhloMKpJFaoKHHZ1AFWUrSdITIP8PNCFoLuHDWX9FUSJxIkdUWugi2N6yZaGjvCig8c0GvUqALZJR4K sNwPNCo23cHbeAjL6B+ciaTbRajbreUmy7YsTtFgkH iJk7A/FSmxxejSZejRUzlSOsiAJirPCgw2aDaLWt+MJt+Nk+/AwLriwN7n7To9IZ+5dMSjEKeQMiF4OU imEZe4Ky+tVt5D9XML+rropsp6aEm2YFyCzB/cCRDHYDLj7HNQb+Af2AX/yBLKLU9qTLMrH9OIEnMMdu PUZxfqkfb8VGGqRGEAq9HehLoTuJwCeXUPsMEJyAO8 vCR9yj9GDKYlFPlWuE2OQoQlGEeSnG863tw8UB3JqWWY8tTuL4JNfLPA0pPTZ/Op0iJJh/IIJINkkEwS 9AeVj+GFTFTTDANb39iyOTe4W9bH77kXclU2hTsBNyX46trxP6mUOJegHLueudl2kD26emvaYQELRUAA yAXiEUZhCQREpYdg5cUEdN43VAssbiOCNMzJnzB6WR Y+yiCbkOZExaGBKVCXmbVs7XP5YAY8zg7+0milVeyRF9ZEPpJM6fJREja9mzN0AftQwwRZmzuP64ii9G OpNtfZH+G1apjIG2oa2pj74kNPR5kvI7c7yh1bLzX11EphVP+dyhXbV9qCy4yGo0Ugl24xpzvL/2DlY1 cgLCw7xMo71FHK1d/L/Moo79h8DFUkMWi+xg2skxYw aG+puFaDxq8Qzdmsc1KpsMg2GFqqdpyS06yADrKKjMSuUz0pd/O80Msw4BI3anbwUVRfH0xiUEx+loqH gjrqL6SY3KJEBS5gGv6QGbSObNg5soBbI6ebU424TZNIrWpPiqIwAcD/SD+cua9WbZ9AUenDT6guezNm ylVl2VKrk6tl+AgkTuIknaSTBEmQDJJBMkkmyLwuCi HLUzGBdfLGiCnJvNEaUWNkBHoACHxQ6pPGDbS4kZZQdL1qdLPok6tC5iljJsEyBA719dDf4WG1VIEyOE ZchAYL9zlOPHzAtPXDGYcP13MGgxkM3bS6FIgCWEc9vVjNG3tygOK6twad88ctkvwUd2Mt0bizCcUiKL R4X0mKUt7NjcTerELdPyY1i+ynU1DKGcg9SNa+ROf+ ROf+ROf+ROf+ROf+ROf+ROf+ROf+WIf1vbB/XhOjYIao17ZJfxapyPAXrmwPquC+4iOQCImQKImSNJJG MsPR9hBF6v/71OscSwlBEiSDhDao/I7sFFCgzaa4YC3dEYMlWVoZLJdDwBtJpkvAvXN5scLAKlcBzKH8 upDPSfg3adY1vgSUPll31iwaG6vpJNFHPtZY1hIS5y i1KWNYAbnTA0EIpsaTzrnkGAKAPaC9RRu/7Rag6P01law0879c648PcXcqqeDd4nx49edhd124OTi0oL 5or2MvL8ted/Qx7ZJs9iGQZBqQawxYmxeSuMnkf2B+goe2wOyqjCKq36Q5npRUyHK025Z70RAdkmEklU S565cY2hc2TtwBxD6g5MC96r/gJ1Y+hugZSj6VWRyO xo1Pq8EPUD7u7pG3WunVTdrxEg8TjV3otW2ywiRBCWpBRXDPua1cbG+Y7A8m+4PJ/vMqB4pyRmb2nQq+ cbJPnOwTJ/qXxL3hbu+c7BMn+0SuO1c+dp4aT1rwZ2X6oQZMJ1tq3JqeoRTEZG4z8AA5EbUQTlRwG2MZ 6RoYeqTaxsUziuuXbzZxWNYUBkpNMpq8hvkghbn38g YqwAt35pNstQtvP9a+mMqanjsw8lzYItvKl/u7Lz+0pfKgq0z57v/e/yez8V5a8y62w5/vX22ufprlEw tbeysfw0thyvaJt//Pu3/58Wd4fvS8OQ/59USLluIWMeEVLPnKg7u9/Oy797/52dq8+ZTwM4j69ydPF4 aF5/Pf/nsqu4t96E+++/Tu0/u3X7//+dDY95401hoc Pvzu/bjaLnq8q03m9itn4r0xKn46259dura/3xB3q00w0a/u3a9+Ywimi38a+NlvuytWhjtY3/Xhm99+ 9/bp3Ve//Cgd2q94+sO7v/HZ+yV8f/udb8155+2nt4+//vA2s9r7k638u8/j1w6b6o0KT16+fPvwzS/e qaah94i//pevPnx6//Xbt9+8vbRfvv/Ftx/rb49HM2 F//fu/8Q1SJf/m22+++866xb280eZRh6/e/yrp303/vfvym28//tjck34F/+kfrhhe+bjyU2/vv/qvf+ Huu1Jgy+yff/n+h3mknw44l174sL5Qp/3v7Dz8N5p4+wv+tmuuqQU7W/8Cww9AvG/mn377/cfRC0949c 3IC5c96iz96/zX96/yv/59+YFu0RbwGg2v/Xf3XR/r /Or9u6+/++hjT7VdXvv//+nf//CXH3/4t7f/9n/efveHP/7x+7/85Yfv//gPb19//6c//NCWn3Nj/Ovf v/35T2/z5zp+vn7m+TPfD0Zt2696ri14Beh8Mj7/+OPP/8qvnUMOluuFf/tptNo9NT/crl/+q0MsyQrB +Y/KPksqDxgltu6h/StFe26p+W9bdATFvb46Bso356 ysDbg79n39/QVxl2hN23cYT36e0030jjZdC607+V6ED672BTixO828NHjw/Ufs7sJb/uk6Hn+ayJe/4Y 0TxG1L4pUCgzb60J0++NN//OPbX77/jx8+u/6dHu0DOBzoS/3415/xcONg8rJ7r/ibj29/+NN//PCX// Vgoj0dzcjd32fyPyyj61/cfbN/+vjd27/9z9dv/8Of //EH149wns+6ga7qFj/06ef/9On34K/8tGW3z2+nw8NqlrLYFRfc5FR6vX3/4Kdrg13gy3Fz/qrNfvOz jz/79Pb9//7hr/+52ZyHOn/67xfadkmGQLm5vNx0/p+/wINvda2qfqZEn4//8bMnPD/jX33/P3///V// 8B2dzmLGjqd+/vAT+Fjp45///GHKb3z12n28QTliZ8 /+/NfquW8AJ/hnjG1PB/z+f/zpD79//NBz0g588p85a+8+/Prbb95/+slfrDQi+Rd//M9X2sl7B/72q2 F9//JRVgm//fWv33/c7jvw7Stmw+///XS0YQjdvree52g/1553c4c///jaN6nr4xg6t5v126/+Qcbb+6 8/gAP37XJf+Er78mQG6m3+8hps756YSQx226ZB1/72 t8im92TmlQq2PxTz/oek2LrvDgRyCMF5ifGsmRjsbuFlUdkHCIcpELPdKae9TE4LeQVnVNTbW3L7RJUz vo6oOCJqSHGunLUoOyEsWHNGAY5ZuBLuOA4LAXz6RVCbDWCvFzLiUODdsgD2LBReAYVqMQJmJ3XjslOj dCAyIDAgUj4+QH9lx8RdKuClARSbCmf4VB1TxBXiVX 9LkJJxsN7boiLqO523gwUiAXLuUxczi5WbDRkyXUNWHY6OFIK9APM1JXTeRm1+IN3lt8FkFdRgABNhKz q8HE5LnAXxu8CwRE3XC7SkPUYhENFJCOP6f7CoKYKpgfpjcyrdI5TkIWL6yQ1eLWH1ACPmJYnvCOXbBU nuFNS2TQVlLOcjUEUfTETkVOWeVXTzMSi8jWHeSQ5W O5WqEEWxBOTNDEMmcaBfFc7gPTZKQjTPRfweW6DNRLFdSlt2DUGeXAgiB2V6TeomF0RdHK0EC7IgZFJw TTESQYGqkyMeOI8QosYjaR7dSFdHXHNSZMzSWKyeSoE5m24amfTHGIFwFTMmDMavWYFlLVWmLWPmCJVp SUGkVFWeFBMbBL7QM8BiYISxTOKJLXQ8e2KtLBDlqv xmuuafSp6yvyQuIvm+XepaWCArp2AbWLagH1G0bTLaU4WaU7ZrCW5DyVZuNWjpBXDqTDBkLAVlX617xx QgMT4+RV3tw9MsIefoDGBANGYePVHgKKTuMAM2WzDhFBHoDLZpJWSkTuM7SeCiHwCJBLEoBZS9FOXmUQ GtQJIyPTLlGOzkWMNpJWE7QcafTHRhIBQkAO7xRdZc OIQoNeDmQZJkITWwYLXujgIKQYRfSCIhMFOhYGL5CFGzCQSsPLmmCVVvQRFkXMF6ZVXlLEAbTK9vDkTs KCFrJHVjRxiwQGBbUPQkgtAQFWYrRVNrLMR5WsUxGDVqJDZqPDcqPSMvDZQkPsj4TXOeTQDzXC4xRiBw EOEyCNP2HLbjHAMbNBMeocFITWUwDHWvMGGzCjNuLD ItTHMtKMteHGGoALRoGjXpLTHoLCFsRW4gQaQcVQEhUHH2BCWtPCEwKEYbrkCVZLScUKBpGNw1ZPTeXU ExBSPgZVkcZHQpGGMrZZV9XDTuGSShCO5rGcXiLXDaBVOaINFwHAPdXPLhaqNZOADmMDEgIOU6KUIvPK TmQXBqAGgnMTLhZBKnXoy2XERaXDCjTK4wLyCdEKVz ZIC3JNNlVJMyPUEirhUHWRAvJDZ6MIU2OTByTUGlMLTqUZsoZVFiJOAfFrB3AGXlNAGkEU8dMlGkFMUg XEJ0LlGqBCXdZWGuptTQRJNoFVRdRMJ3CuOqXEUmGNOqTJnwSOVzJMCeMMLxSYU9OWH2HPVcVfXvTLsz FVRSSZhCY0EjjnJhLqUTO3lmSy5sIvDyQHCTX6Rto9 QgNSAwIFIKCj4+RdH6TPI3sULoXkh6WOL6OUvpMNRJKj== ID Date Data Source [id number] 01/13/2020 08:13:27 AM EDT [facility] Name Value Range Interpretation Code Description Data Corrie rce(s) Supporting Document(s) [facility] VECMPi3uOjFRWePjt1ZjNyMhWNDlLZ5sxkp5O6E2zHVcX1CkbMVxr2ocT4UgG4ArMVBsDZJBJS0HqTJh jb2 [file] rF+fD0SFx69iLvePs17/OxGQNOMxK2kNh1blnfif60klxA/p4CmZ/g3XyiAL1/Anca/j+xtHgqTOOCX/j o+do8jc++v5of+Dq8TBlH1MWVq5lVkxHic/25VKfn1 qNQw426c47v2cJQ6c7+eMidZz2v0/hGK3mtKjSjaQWBJUvs4Mi+7E4Hz3B7JcwO0DB80O4XclLL5d8zU 80+FFvBt1gsa58e1IHl1Q280YB02st58siz3qgK5A19lYcaiLK2ZJ8+CusX+iZi70ci6wD4rrzSS9WG2 ck3Aq18szaQnx8d9UgtV44yWgPI99qwC/utMvx1tRP l2i0p86MEU8e8c5kxttv0tMQgbO4fiPM1KhljM/+gR79npfuB59HtI0FL7etTXoDllsxgE09m6qp/SPr d7/M+kR67B+gllo36p8Wm32tTHoT8dg3+ugJ86yC874G96+X7V0BWPMiq32AMBPp7Um6Rjz3htqWnr4E mCn0a5qlv3l8zcq/ZLKQvvD+Fa11zcQY/sanitation officer/2hI77 ec2B/Z41vVQaE3dv5I53Sb2C/agL6xP/y4LxePS0rz/hlumJd4VTuW5N7Wd+8b+2YcrXBShisc5AtIgk MgG5zFT25Twu85PZtmlbkQSzeh0JEJF27bonc+whbE9C2UNv2bXaIO7E+Ra7y6rC13sxerq3yUT8g7jB mRQ509f4+usSHAOelM1MlI7SSUSkRH8de/In2i/Qvt X3h/4/4aV8lynXS0Wj9d/fINc/hnh3/G+pU5fl/N67g4F0F6gPA/0PzGC+wslf5PDqI+94/OEdunf/pG OvzzhH+eDenoz/Ou59i8+7008k5e/CUdOYp51otf/8SkUEgmG3VrNl5ltf/NifT7/YZh/crmXc+xCX2x fmUL/mrd/Z4kUvqhGlf+Fuezlum8w31FpaO4uRD6EK d9w2J/8BQIBzrnw0N2k29H15/8a1i/BjKjP1562vxyU5I25uHV/eJsr2NgK2zk/Xlj/A9B776maYf+FW N/33jQNvTdjnTH+/WUs8DotuMB4hxR4a/d241/ct3txjh6zSq9e/dEwX928Eqm8/K7JZ9rCXH1fgAO+l 7i6Yf8oDgI1Tp+9M2h4aC9u8ektL99vya+nRcTyh3p Z7jispfPfswzfb847ZJQ9cozkWoUrPSfA4Fl4r+/gl8k6O56WMVk/5YBGwU1b1b2RJ9h+RsfRexzjsBO c5HAk2j0Q5P3V3f42jgk+Yjyv/OLFoneP99/5cdvJCc+DiOGRfb407HnWUs4+6PPs+UaTmy5SZ0T226a S87r0X4/8Dm/ZJI48YRBb4qnc4/vbuxCFShG7sZm35 n0y68c/CcAw3dm43YPnwAe+isf1z/45DqnYUszN0BQ8nyVAed1/dnHPb/g+Z0OydArjP3WTwM+98t8XP 3tOqM09hlVc95DhGR26caRVu+93wRZzsx71ZMvgBLzfO6t/+kmNBodS1Fey7Owhl480R6ZXcTC/L4GfQ 494yvre775GapQnAuA42/gOO6a9j/179bgC3azD2fd [file] /9iReGqNtLeJ546MCp5Ivd3LZmGUsfo2PS7/P0W 9lVeX/ZGC/sq+gug8zcOkVFkOJCTpGoU6E45+EkVppLHEh2i0346qyKedSxmp2/HUa04uBBHorLkhS5X Vh96l76vJ2XT1Ej6G1wS9qFg1FR1C+VtLF4YtXgFjD10zXc+Qd+e51H65E64k48JX8At6T/bNKy755Dg O1bpZ/mD+6rIjdcyDOtUEuOAmKGIT7p2v55Hi1So8S ivJsarifFqTugdeoxXE+PVLP+gYo6gKg9m4ejHswYw+fbmNR/bHP+jnL+KdEc+GWg4p9E+Lp0Ylvtj+7 s9hJ8QK8nMPzyB/Ldg8Ac5RxYCzUr9fP6aya9c3Cv9uC3L3/mZ69dzgUvX0+v/HvbVSUM/oB/QT+gn9I 72Dd8m6Ng/2LE6t8+uXSbXXv7ppfwv5KtI03Le1Fui O/QGfdnP/Rg0dA4Z+nx1rN2hrT4KntMfCz0i41Z+UcojNveokn3lf9GVroAliF/Qd+gNeoO+7KsO+6rD zclpvKjzCtgMagIrXcbbf74thW647AqPkq2+06Dus4X92ADIN9xhjCmeGS0PyCYz5so/7jjqZHdaEK4K eXP+joq5Qn81bw5qffUq0N/6hsrI8bsiyy7cw95uJE p759tXE+hrPbTH/VTQtkfeDuAS7j5a79lUP2zUTLv7+Bq86g8F2a2k8y5KDextrfZI+VsXdXa6qT22Vv siXtw2aj/saR2qMpfX97C+bAke29eZv43O4Q1zDvr7Lf94WbzRg1l1z/mrqE8r/7cb+q/h+0iVF5WY7J u1h5i/oxGAtcYk2Ke4D/qaj+1W88/yim38r3Xsi3+8 b39W638HY0D3wb/4AhSOvJBt7aZvNV/41zLo0XstJ/AcO3AMFg13TIg15CiIQ/yhs57tJ+Ud6L+Yv+ox nqA6NRg/v4+DvBx3j/Stj3xu+8yICAu30Y3V51a1LzSWefp/NDP/6q3q3q6v++j9Ho45sj9lfXsl9F+F f0KBzLkCe+wzILnWs4+ApE+4O8QiL0F94b5/aJ//eO 4ti8uWMv4pUVS3A9/myOn88ru26Crvw//MXqE9h2Aqy/sub+TvNb/EjgYds4E/pd3smU4fhK19S2yxW1 WsD+7zHuebevkL+7RH0+9z1iYniY94y46Wf2Gw8/qEg333MpX1PM638Oz4Wg+of0K79Yw8Yh8SX7Xa0U /oJ/QOvUO/oF+Pfh/qqPSuB9/cHp9Lgm6nQ+gb9A36 Jw9B3uW29Ba6S/oJ/YTeoXfo6/bjHpjiIzW8MzNIEv5ID/E4oHfDuj6m+wX8a58Tf556oNnjiTRUfgK/ oZ/QO/QO/tI5ow7yCd6p2QG9AYMvhgb/ymWX8ambJXo1RzxjSxHyi6K6/mse0S4kvS7G8w3S98gyL/qy vxf8ggS+VslY2buahIu+aOMBdtcVy7WpCm6shkV3Vt fX/KRh/5Vh/5Vh/5Vh/5Vh/1G1fvnUr0DW32yjaqQZK6Ye/yQ4kYqzuZ4vY+vS3eTd99FHY/Qd+rI3rO S6hywmrf/r7U04xU7WNbQhCvqvbEfuR8bo4s/Cuy3Blx3Au9Dj/gIRAts6jrWndmK9klUyaqakdtIZ3w GAitCSrD6k5tCeenXBbY5gRJQ9rHcuty1hD+gVeoW+ QV/r+zY69Pi+A+OaMZ5WeWvVL/I2V89pdTgbMK4CrEG+Kq6ZZU/gFMkQKk0qy6O2L7e41W0o0Rznlw56 y/+7Lw8iKRPfcM/IZ0Bf+7Jc5gaShrqJvfzl6j8cYlwwErf672L+avsmFvNXmRboBdfXerfF/PB832c+ l3vschgvm0cl97vM7iA3oh+awr3zWS30On/vO7Us3S +L+dpTkkyozmd5xw0YL9m9fBm5onOdXJsho/0qtmq/hu9025C/0erQG/QGffkLtmr+5TnSo9Yy3M01/r 3cN203gx8uQ4135GK02Jdijyh8iQh6TzcMfv56d9NgEo9G/bp5mH6exfp9+MmuTv8aJGA/x1Xr+yPmr3 OiRrX3NVyl1uxOY3x+uiIfkWe/3JDtL+s2Ku607yGX j+tv/2juNjNk+7qO4Wlkm2GcKAZ2orIxL+m/YRGRaph1752xmHt9z5m5D/bokJy8VySiit4e4PH2gB/1 dvWdJfcC1zZ2muOztphrUbB0+9p91bzJl23eDz922fx70FW3wr4dXMfgZibtQ/2MG0Or/w6t/Dao2Ltc F3CFj2W+s1KWchnq+2rZzyPWB/P9oo6ufqOr+3m08h dGK/9oNIFeoFfoFfoGfYO+Q9+hN+gN+cY7nV0AH2M76B43CV48S0Sbu35plsmBynr2Ae0Fy5P06Ys9Ik oFzFKs8NX/5wOGBbd18ND9i50Eu9Mgn1BnwAZmxXCwhRYlqHCXoN7Gx/RdYiwWcN6j9ieGHht/aBjGK8 D2JYhyJKQ2hLlUYvE0GzHK+uDA+uDA+uDA+uCI+aso yyj/aAyUF/NXA/NXA/NXA/uNoKqZHS80+h+SWbOOpEPoY16bri/35iIGFtjl3keT3q/GqP/vmOUfjXlB X/OTY9Z+wjHLPxpToa/9SGPW/pwxO/QdeoPeoB/QD+Q/9ibJdrO9Me5T+tp/Jimmy+JAMES+JAMES+JAMES+OFyh [file] v/d197iZ048+/s1Md48438d6891+1yrkI8q03wknoep+w6/kkjla84jiz0+++/jV1+/fPrz/+WBs9140 79pyKSq5Sj1kN6i8e1sXmNV8zP++/u7bt4/ 549+ATn076V8yax+H72i/spi58Wu/fPnz3q/dvr2e/hrJsZ31dXvb0xb+ybs9Yde+++Pj2i9+9NB++em ne/+d/+j+//B8xx0sZl/7mVZLXhV/8008v2+G57sv+yy/ff/32xTe//s27D++/zDytK2197Y4Q4rs/+H bZZ//Xu68/uw+Iv7L9/NK3X3/5Q63g1wTZ/v4/yPE2 Ge4cv/7m7duv/unrr/0bDxDhv3g75mywcc2o6//F0fiVdip36a/92x/+8uMP//r2X//X22//8Mc/fv+X v/zw/R///u3L7//0hx/++PYv/0n8X/7u7c9/els/V//5/s7+ubTPVd/e/fpvvsk+rQKcuy2255//yscu b4MsycQ//cJ6h2hdUmsos/4b6LuFU8X8i/UPE+gmba l97ddmqrjPkC9S1NMk0c72EEBsJZ/0pntEo68/cb9OiEOr1TKGh/rwNKZ0iX3+0jnan81J/PbVLz68++ VXv/0wyN9Jz3dCk8XvzkEpit4n7/n1asG/+Q4v9cRpGfAF3hPPyFE/+8Of/v5k1w0w/b//8En2r3/oW0 TUuS/68a8/zf1gr/f/ae4H/M2Htz/86d9/+Mv/+Ju3 j+xPfX6a/S72LkrBN1N/2D9/+PbtX//7693/8Oc//TT7HY/qE0rEEf/2zx9//r2lc34vdT8wlQYZu6/7 kE9y3y+9o7QoE8f49YKyrKdyr7TnqGWsntFBrcJVq44+vn3/P3/64498mzaz42Iv34/w4U1a5JE4Dp/9 X3/5l7/7ydXnO/zjDz9+/5qZsyD1QE/i+//+++//+o fv//LQMU3dS//VL5Reli23+c8/bk9hlzPf6pnlp3//3Iwd+hK4m2Ufxt/+8Pv/509/+P3r+Z/oojt04O JN7hGX/sBzV02iUu//9v1X//d3H95/+5fD5VgPWgQ9e/71+68/fvs5u/n9O/z/v+Q5vpMi2rV7c+//2w 7b4zaqk9i0rF2submzADe1m/8aEV7/3pvzxji3/r29 amat0pn79qEL8f64/tFJ5ivwO8s+5BkmzHLt696fF8n3yPfbJD+5/23ZtDdkTwAcCAA7ljWfyAszsgVu HpbAHKpgVVCxSzc9FR1GuMOwLMQtJ0E2RATdbs9jGHQtZOCygMFzXwNlNXLAKK6CaDLlHV1ZZCp0YZCl XXTkEgHmFYKkbxL7QVNwMRJjOPFsL8KbtbJufEGsUI AgUj4+VG4lo4TeCjLlMXRxUki8VA0JbDJwVW6QzEBwbM2sciDpX900fpHlCVRwOpvwq9RsQKmuAJQIWE 1TLZO1YCZ6YYFlOw5+CC1sv0AbVsWsFYUxTib3IZ9YhUGuy3HzDG9LD5OwWXPmQXIMSIR9a6XlRDTffj htgugqI6SaEIY3lQ3sHOO3IXXaXYfmWTTwGVjrGFE0 BRMxGTisLAAwBQMxZZWiSMBgAUf4oBPbAY5FX2KaRSVvGNCQKZPrmyPjXg1dSOJNTaJACcdaX6VMRSNs Tyg7HHTmMXhcX1C7DmmlZ4BuSI6PR9KbVCFrKOBZURIexkGiFN9BkoIqrG3dMTdNRBDICTzENPihXhG2 l64gujCUUXFqZCSrDTwrGHToPUZfZEJhBAObSXChIG JtUQDcWW2VE2LrVDYaATHENNW8t6ZjFNBhidijdnnpGr5dzdWsUue+LhujCAKeo8NoMMgmN3J8kWJnI3 KpX8XrSF2XyQWdUCiiXVOhVSTiEXVnJ132egMiJC3+HC7vq6HkKzwvMXCWIWGvHBHzQLJxWJH7DeJpAL HaPAJsGJBtAeL2ZwKpQjZCGVDbXEH7KbM4LxUzZTFb YKBrXXzzARVsFHY5TUEfETToYFFeCD5hUdXgSZYvAnE2HADfJNUaDTTgpsUZZNQhHRScOAGjTHA5NZBa WRGqWFilGIYjLNAgFHS1QSAdLUYjFA3mJuDfYNGaWLNzUsphSSWgQSFbhvKKIRGgJRAdKBI9YwGhPKMp MQTvTNpuZJVkOKFfPlx4GUQgHOGfWU7iPeNhSUHrJU H0ESutBXYoMJEiteFQGEBuELJsSZGiEkGfQJAjBBNfNUvoCNAjLRIwLlHdAZHvLQTyKE9iEfDnSILxLY W2BRRmSMYhFZNgagBMPMOnGQJsUAm5XLEoBZGiAWIrAJneXCSdMQHmQEJ1FHSqYHTbVZ1cHvAkBSBgRV AnAEXxXQBcCMUhcqWBVPCqAZLiCRW6CTQkIVBnGFIl OKysXJIgNOPcPqz0HMNrFRRhYZ2oKfXlSNVvSAQ9LLFrLCYsULGdpnRFTWQrHYM8NlalBeDoGWRnSNMv CZtvTEHuDHThYmU1TLAbOWBkQT1xIgFzWEZaIMC0EhVmGVBbGQPprrXMHDFlHKYdVVS1CtZyJBQpGFLe ZVkyZRUbFOAnCGKaXBI3LKN2ITGsIeBkFObvQLXDOP xTU9AtkcUyXmFAH2maZi3fFuDiUVGIL4Sak1YtDOBwUADCDo3+AoR4UOC7cROoOds7QoCsGzjjTKTHQc == ID Date Data Source [id number] 01/12/2020 05:51:13 AM EDT [facility] Name Value Range Interpretation Code Description Data Corrie rce(s) Supporting Document(s) Bicarbonate [Moles/volume] in Serum 19 mmol/L 22-[address] [facility] Chloride [Moles/volume] in Serum or Plasma 111 mmol/L 98-[address] [facility] Creatinine [Mass/volume] in Serum or Plasma 0.66 mg/dL 0.50-0.90 [facility] Glucose [Mass/volume] in Serum or Plasma 94 mg/dL 70-140 [facility] Potassium [Moles/volume] in Serum or Plasma 3.7 mmol/L 3.4-5.1 [facility] Sodium [Moles/volume] in Serum or Plasma 137 mmol/L 136-145 [facility] Urea nitrogen [Mass/volume] in Serum or Plasma 9 mg/dL 6-20 [facility] QA FLAGS AND/OR RANGES MODIFIED BY [employer] RAPHIC UPDATE ON 01/11 AT 1515 Anion gap 3 in Serum or Plasma 8 mmol/L 8-15 [facility] Osmolality of Serum or Plasma by calculation 282 mosm/kg 275-300 [facility] Creatinine/Urea nitrogen [Mass Ratio] in Serum or Plasma 13 [facility] Calcium [Mass/volume] in Serum or Plasma 7.7 mg/dL 8.6-10.0 [facility] QA FLAGS AND/OR RANGES MODIFIED BY [employer] RAPHIC UPDATE ON 01/11 AT 1515 Glomerular filtration rate/1.73 sq M pre dicted among non-blacks [Volume Rate/Area] in Serum or Plasma by Creatinine-based formula (MDRD) >[address] [facility] Glomerular filtration rate/1.73 sq M pre dicted among blacks [Volume Rate/Area] in Serum or Plasma by Creatinine-based formula (MDRD) >60 [facility] ID Date Data Source [id number] 01/11/2020 04:24:53 PM EDT [facility] Name Value Range Interpretation Code Description Data Corrie rce(s) Supporting Document(s) Bicarbonate [Moles/volume] in Serum 20 mmol/L 22-[address] [facility] Chloride [Moles/volume] in Serum or Plasma 105 mmol/L 98-107 [facility] Creatinine [Mass/volume] in Serum or Plasma 0.66 mg/dL 0.50-0.90 [facility] Glucose [Mass/volume] in Serum or Plasma 89 mg/dL 70-140 [facility] Potassium [Moles/volume] in Serum or Plasma 3.9 mmol/L 3.4-5.1 [facility] Hemolyzed Sodium [Moles/volume] in Serum or Plasma 136 mmol/L 136-145 [facility] Urea nitrogen [Mass/volume] in Serum or Plasma 8 mg/dL 6-20 [facility] QA FLAGS AND/OR RANGES MODIFIED BY [employer] RAPHIC UPDATE ON 01/11 AT 1515 Anion gap 3 in Serum or Plasma 11 mmol/L 8-15 [facility] Osmolality of Serum or Plasma by calculation 280 mosm/kg 275-300 [facility] Creatinine/Urea nitrogen [Mass Ratio] in Serum or Plasma 12 [facility] Calcium [Mass/volume] in Serum or Plasma 8.4 mg/dL 8.6-10.0 [facility] QA FLAGS AND/OR RANGES MODIFIED BY [employer] RAPHIC UPDATE ON 01/11 AT 1515 Glomerular filtration rate/1.73 sq M pre dicted among non-blacks [Volume Rate/Area] in Serum or Plasma by Creatinine-based formula (MDRD) >[address] [facility] Glomerular filtration rate/1.73 sq M pre dicted among blacks [Volume Rate/Area] in Serum or Plasma by Creatinine-based formula (MDRD) >60 [facility] ID Date Data Source [id number] 01/11/2020 09:25:31 AM [facility] Name Value Range Interpretation Code Description Data Corrie rce(s) Supporting Document(s) Sodium [Moles/volume] in Blood 138 mmol/L 136-145 [facility] Potassium [Moles/volume] in Blood 3.8 mmol/L 3.4-5.1 [facility] Chloride [Moles/volume] in Blood 108 mmol/L 98-[address] [facility] Carbon dioxide, total [Moles/volume] in Blood 22 mmol/L 22-29 [facility] Calcium.ionized [Moles/volume] in Blood 1.16 mmol/L 1.13-1.32 [facility] Glucose [Mass/volume] in Blood 115 mg/dL 70-140 [facility] Urea nitrogen [Mass/volume] in Blood 8 mg/dL 6-20 [facility] QA FLAGS AND/OR RANGES MODIFIED BY [facility] RAPHIC UPDATE ON 01/11 AT 1515 Creatinine [Mass/volume] in Blood 0.5 mg/dL 0.50-0.90 [facility] Hematocrit [Volume Fraction] of Blood 35 % 36-[address] [facility] Hemoglobin [Mass/volume] in Blood by calculation 11.9 g/dL 11.5-15.5 [facility] ID Date Data Source [id number] 01/11/2020 10:26:42 AM [facility] Name Value Range Interpretation Code Description Data Corrie rce(s) Supporting Document(s) Bicarbonate [Moles/volume] in Serum 22 mmol/L 22-29 [facility] Chloride [Moles/volume] in Serum or Plasma 104 mmol/L 98-107 [facility] Creatinine [Mass/volume] in Serum or Plasma 0.66 mg/dL 0.50-0.90 [facility] Glucose [Mass/volume] in Serum or Plasma 115 mg/dL 70-140 [facility] Potassium [Moles/volume] in Serum or Plasma 4.0 mmol/L 3.4-5.1 [facility] Hemolyzed Sodium [Moles/volume] in Serum or Plasma 133 mmol/L 136-[address] [facility] Urea nitrogen [Mass/volume] in Serum or Plasma 9 mg/dL 6-20 [facility] QA FLAGS AND/OR RANGES MODIFIED BY [employer] UPDATE ON 01/11 AT 1515 Anion gap 3 in Serum or Plasma 7 mmol/L 8-[address] [facility] Osmolality of Serum or Plasma by calculation 276 mosm/kg 275-300 [facility] Creatinine/Urea nitrogen [Mass Ratio] in Serum or Plasma 14 [facility] Calcium [Mass/volume] in Serum or Plasma 8.2 mg/dL 8.6-10.[address] [facility] QA FLAGS AND/OR RANGES MODIFIED BY [employer] UPDATE ON 01/11 AT 1515 Glomerular filtration rate/1.73 sq M pre dicted among non-blacks [Volume Rate/Area] in Serum or Plasma by Creatinine-based formula (MDRD) >[address] [facility] Glomerular filtration rate/1.73 sq M pre dicted among blacks [Volume Rate/Area] in Serum or Plasma by Creatinine-based formula (MDRD) >60 [facility] ID Date Data Source [id number] 01/06/2020 09:55:00 AM EDT [facility] Name Value Range Interpretation Code Description Data Corrie rce(s) Supporting Document(s) Albumin [Mass/volume] in Serum or Plasma by Bromocresol green (BCG) dye binding method 4[facility]6 [facility] [Mass/volume] in Serum or Plasma 0.4 mg/dL <1.2 [facility] Calcium [Mass/volume] in Serum or Plasma 8.8 mg/dL 8.6-10.0 [facility] Chloride [Moles/volume] in Serum or Plasma 102 mmol/L 98-107 [facility] Creatinine [Mass/volume] in Serum or Plasma 0.74 mg/dL 0.50-0.90 [facility] Glucose [Mass/volume] in Serum or Plasma 77 mg/dL 70-140 [facility] Alkaline phosphatase [Enzymatic activity/volume] in Serum or Plasma 57 U/L 35-104 [facility] Potassium [Moles/volume] in Serum or Plasma 3.9 mmol/L 3.4-5.1 [facility] Protein [Mass/volume] in Serum or Plasma 7.2 g/dL 6.4-8.3 [facility] Sodium [Moles/volume] in Serum or Plasma 137 mmol/L 136-145 [facility] Aspartate aminotransferase [Enzymatic activity/volume] in Serum or Plasma 16 U/L <32 [facility] Urea nitrogen [Mass/volume] in Serum or Plasma 9 mg/dL 6-20 [facility] Osmolality of Serum or Plasma by calculation 281 mosm/kg 275-300 [facility] Creatinine/Urea nitrogen [Mass Ratio] in Serum or Plasma 12 [facility] Bicarbonate [Moles/volume] in Serum 26 mmol/L 22-29 [facility] Alanine aminotransferase [Enzymatic activity/volume] in Seru m or Plasma 7 U/L <33 [facility] Anion gap 3 in Serum or Plasma 9 mmol/L 8-15 [facility] Glomerular filtration rate/1.73 sq M pre dicted among non-blacks [Volume Rate/Area] in Serum or Plasma by Creatinine-based formula (MDRD) >[address] [facility] Glomerular filtration rate/1.73 sq M pre dicted among blacks [Volume Rate/Area] in Serum or Plasma by Creatinine-based formula (MDRD) >60 [facility] ID Date Data Source [id number] 01/06/2020 10:10:43 AM [facility] Name Value Range Interpretation Code Description Data Corrie rce(s) Supporting Document(s) Lactate dehydrogenase [Enzymatic activit y/volume] in Serum or Plasma by Lactate to pyruvate reaction 146 U/L 122-214 [facility] ID Date Data Source [id number] 01/06/2020 11:41:03 AM [facility] Name Value Range Interpretation Code Description Data Corrie rce(s) Supporting Document(s) Leukocytes [#/volume] in Blood by Automated count 6.1 10*3/uL 4-10 [facility] Erythrocytes [#/volume] in Blood by Automated count 4.89 10*6/uL 4.1- 5.3 [facility] Hemoglobin [Mass/volume] in Blood 13.4 g/dL 11.5-15.5 [facility] Hematocrit [Volume Fraction] of Blood by Automated count 41.2 % 3 6-45 [facility] Erythrocyte mean corpuscular volume [Entitic volume] by Auto mated count 84.3 fL 80-96 [facility] Erythrocyte mean corpuscular hemoglobin [Entitic mass] by Automated count 27.5 pg 27-33 [facility] Erythrocyte mean corpuscular hemoglobin concentration [Mass/volume] by [facility] 32.6 [facility] width [Ratio] by Automated count 14.2 % 11.5-14.5 [facility] Platelets [#/volume] in Blood by Automated count 188 10*3/uL 150-400 [facility] Confirmed Differential cell count method - Blood [facility] Neutrophils/100 leukocytes in Blood by Automated count 66 % [facility] Lymphocytes/100 leukocytes in Blood by Automated count 30 % [facility] Monocytes/100 leukocytes in Blood by Automated count 3 % [facility] Basophils/100 leukocytes in Blood by Automated count 1 % [facility] Neutrophils [#/volume] in Blood by Automated count 4.06 10*3/uL 1.8-[address] [facility] Lymphocytes [#/volume] in Blood by Automated count 1.81 10*3/uL 1.2-[address] [facility] Monocytes [#/volume] in Blood by Automated count 0.20 10*3/uL 0-0.8 [facility] Basophils [#/volume] in Blood by Automated count 0.03 10*3/uL 0-0.2 [facility] ID Date Data Source [id number] 11/29/2019 02:42:20 AM EDT [facility] Name Value Range Interpretation Code Description Data Corrie rce(s) Supporting Document(s) Progress Note [facility] IGCPEf0tYkVDHmUt47/YFPcqMVYcc5TzARmiDXk3HOarMZAtB8SeZXI0sK0lABC9LWfPWxKtViMkFJJ4 lbm [file] YeIPkqKSByYVb5Wwr6ASe4PPSwZHK1BE7rBTBQDo2+VEntoGJpvRscCGSLZgqyRgBAIiRyIW0ULCw= ID Date Data Source [id number] 12/05/2019 01:05:00 AM EDT [facility] Name Value Range Interpretation Code Description Data Corrie rce(s) Supporting Document(s) Levetiracetam, S 20.6 ug/mL 10.0-40.0 [facility] This test was developed and its performa nce characteristicsdetermined by [facility]. It has not been cleared or approvedby the Food and Drug Administration. ID Date Data Source [id number] 11/06/2019 12:13:11 AM EDT [facility] Name Value Range Interpretation Code Description Data Corrie rce(s) Supporting Document(s) Progress Note [facility] MXAYEv0uWnFOBoCj37/VOBvhSUWfe0TcGRydTNi4DAskUFKrX5WjPZJ6qZ1nQIA7TQzDExVsBxBmXbIe lbm [file] /ZYMelMBMZvS5U1zfXhc3bn+zLXp/FIRE PATROL/j8Awy3WrOwSsQuwwUrrkTvhO15tiAQutKfhzRhKQjbk+rZl [file] dVlZtbPexhaZUYrCSDjb5rOV0OtPNGsKAtLrUocz+xHzMd2CKBiYlud2soKGj68rB/3/Pot Washer+xcs+M4h5m [file] AgICAgICAgICAgICAgICAgICAgICAgICAgICAgICAgICAgICAgICAgICAgICAgICAgICAgICAgICAgIC JiKOPpZVOoUFFhSNWtPBKdJDYlYPBqPA0YQSUjZBFdOYUkFZVeHHGxVCDiTHIsFAAuFXEaHBMdRZMjTK AgICAgICAgICAgICAgICAgICAgICAgICAgICAgICAg PUUlJIDmRNNxYSHrASRdNTRiLDLzLUGkDCDsKAIqYFWcYX6RHTZpJLPlYTRxNQKuURPnUQXyXTDiZWCc ICAgICAgICAgICAgICAgICAgICAgICAgICAgICAgICAgICAgICAgICAgICAgICAgICAgICAgICAgICAg SEIjHDBgUSWrUKBkYVAzSB0ZCTPrHXIqFULkEXMgSU AgICAgICAgICAgICAgICAgICAgICAgICAgICAgICAgICAgICAgICAgICAgICAgICAgICAgICAgICAgIC BsEYZcSJIsLWJfAYBrHBSuQRMwQWYtOXUsNV7JTLXdKHPcVYYyFIVwJJUgMHXbNMNhGGLmCHKnTWIdUV AgICAgICAgICAgICAgICAgICAgICAgICAgICAgICAg PNUpVNYkTOGuTSUgWYVuKUYtWGYtQJYrYUEmSEOsTOCuQWInMF9ZRGTwNVNwUHQdKHRoCMIbGUOaOCIv ICAgICAgICAgICAgICAgICAgICAgICAgICAgICAgICAgICAgICAgICAgICAgICAgICAgICAgICAgICAg OBWuFIBnQWZjAGSzKBMjMQCyGY3GIGRlAMPsNJXzSB AgICAgICAgICAgICAgICAgICAgICAgICAgICAgICAgICAgICAgICAgICAgICAgICAgICAgICAgICAgIC TnQBLgILHmSCYkLVLbJUOwYVLoTDWuOVQvQLLtBI5ARYWuYMBvCJTySJWxTIBlCSDtPVUoMGNqPPOuTH AgICAgICAgICAgICAgICAgICAgICAgICAgICAgICAg XXGkGKNgYAXjLTZiRJErUVOoISLiYQHhPFUfPLIbSFXtTXXlVZEmAK1XALLuGOVpWDBiGNXkVQIyMXOn ICAgICAgICAgICAgICAgICAgICAgICAgICAgICAgICAgICAgICAgICAgICAgICAgICAgICAgICAgICAg OQUxXHRyINViGCBmODHqQSCpGOOwWS9SKKWdVRAmHI AgICAgICAgICAgICAgICAgICAgICAgICAgICAgICAgICAgICAgICAgICAgICAgICAgICAgICAgICAgIC FjWMSxSCMoKWShNDQrQOIeYTOmYRSzBDXwUPLmVDPgEF1NMJ63hOSyq3L3CODqOQ3owpa/Sm9VFPuzvt LwpIVySQ3UWhQsYV8bue9RWzWfOJ7vya2OLFkNPoJx I3Z7pPEaILMgFOLRFjUcG30tHRlePi18QLzvOAApMlAmCVd9Mu0SBlLdE0xsUXZtGsA8RUHfEzM8JQPe OxI1VWSjFwMtFHBnUDJuFSDwKFSULCH3SBFwNxRhFdCzOMMvHMieUPMXVYMfOMWcZeEhTOheXK4Uk2Sj lXQ5DFz+Qp3ZSL0sh4KjDZjcPUIwIA5phn5IWSxAJu JeJ7TufoI4EAB2ZCTaRf7LKCJiEJPrgTXmFVKzMDCENeMrU1MhkP19TYHXYg8+KBslsxWhWbkEHlY5WJ Sem3QaRSz1LE5UBOStNCn5mRJpBKAkZ8Hcb7DxGa50WKAlTyylCTzvoukzsK4tYTmrw2CqPN0HLMY3CK vsFzCdPfXhGYQqOAknPJTDCKyHGcFbE0Fql9HfTaL7 FRUxXuWdSPhlNFLkHoI7UR06iMntXY2OCOVmNLFpCZ83WLC4JAGlPp4PPy1TVhNiTF5scj9DZYLxRDOo GovXDvm0OKpmCQ6KeIFhU4NloITjg8pTMnHmW0OSOSA8QJUxKg1BQTXqYjQaNAUoEAhaSJ0aHFDxTIOT wHyazwU9XH0NZD2dtxTfSZ0YKbVtSn1eVj7GMlUmY0 DhH5MsEGBoWVHQAXmaYP0DYXrgKV6lMH6Fn6ZWtWQhoI0awg7IQMShUTRkDofwqb4JWynhK1R1sMctBC HsUpcrCNXHEUzrER1AZWDaUUP8EAEiZaHrVIBUMuXxF10lJN2FV6Vvk88rEiN9ENFjYtHiQUeqHP57eD ueykAtlCNfaIhaJJ5QPg9+DQplbmRvYmoNCnhyZWYN GxTrZTBPThZeXWBuDLVxAHUcKmM6QoLySd5KVUFzIRUwCGQxIvWjQEXvHRHhPQlnURGcYZF8MoQ2UJLa IWGfZC4YIuZcTBAnAJK5HIjeKYRgXMHcbq2ENCZhZFAbYKD5YhXiVRIvQCUaIDxjKEVoTLZ1OVl0FMFx XYOgFA6TCcUlOTNtIXT9WXMdIMGmJUFuqm3KQTXlNX MyBIZ8IzPjWGRlPXYbWBtwFBXmHYS3VQa3ZZQrZNZyML0VRfBqLIKtYLPcUdXtTGBkJYHjjg2JPMGzIA UhGTWrFMPdHJMcIDCdYGlcYKXiJNV9EyV6AZQxJYPxFT4DJkIePCEkLUM8UCKxKCOqMGHolk9BTNHxRV DqTtf4WmNmADXlVVMaERnoFRTnEZN0YFX1OPMiENWu FI5XVsMlVGOjXkIuYzSjWAXbWIImqo7BZBEhXEGyKRJ8KWAbEENvVIMpJTguHPZyQDZzNjB9BZGqPMEt FN9ACkUqVFSeHlI9ARDgBVNoUILauh5JHAHkWDIlBvSoEYQqQQOmOTXlICmfOJXfVJR4TsB8XRPkJOOb PL5POeDdHEUwJzlcIKMjYMUjGMSmkh4UAMEqBWPdHI IdZYOuSZJtZYGxYYeyZVGkUJEaSmYrXHPeIATyEO1AIcFjEXPoOtQ3MZwjUTXeJUEnrn7BZFRnVVJbEN U6BPUzCXXbHXZnGKwpKZWkQDKnZwBoCPDaRBDgNR4OEzImOHHiRkM7FBEoKXGsFOKuuy1WQZNhJOXdOG r4QDIeFZNhUHVvUIgeKVFoROMlRKFvENPuMVHjYM0C PoGyMGCrCCNtPkApYARdBZBfat0VUBPnXJR7NrLcGUEgORMkCWDcKSicMUWvJHKtXdE2PYQyDNSdZU5O NaNvXOXjLRE9NVSeSNFfKSUujt3FCUNcNSI9FKozHdLeCFXeXPNaSJhgLJGxDQP5RLE7MIFiMNIhZM6M MjLzCOOkSNCaNKOlTGKaMLTdpe7OLIGtUNE0QQPvEK DnJCSxHAMiUOrzCHJqNYV4VUSkKSIeDFArWN2LInHeLGVnQKphYeUaAVYuRUBdaw4WLAOqCZI7JvUxPO SrPMFmJSVlQMp0mtBpdAHtHYz4GE7GB6GoayQoMLTKSs0Yc370DHAlGOFgLi7JS8eiMe6rFWHkBPVTTm 3TEAd1ZSSkXgt5SxXfXUlcGjJ4CTG5RqK9SoWyUCOc YWVhYjU+BWj7L2LmIafwV3J3YVC4Qga3ECAuLoj7JoRfLvTiQYSjED7wIICVAc5+DQpzdGFydHhyZWYN DnD2BJE2BQwbXGBNYg5A ID Date Data Source [id number] 11/05/2019 01:06:00 PM EDT [facility] ([facility]) Name Value Range Interpretation Code Description Data Corrie rce(s) Supporting Document(s) Free T4 2.21 ng/dL 0.76-1.46 [facility] Thyroid Stimulating Hormone Laboratory test result 0.358-3.740 [facility]) ID Date Data Source [id number] 09/01/2019 08:30:00 AM EDT [facility] ([facility] ) Name Value Range Interpretation Code Description Data Corrie rce(s) Supporting Document(s) Thyroglobulin Ab [Units/volume] in Serum or Plasma Laboratory test re sult [facility] ([facility]) ID Date Data Source [id number] 09/01/2019 08:30:00 AM EDT [facility] ([facility]) Name Value Range Interpretation Code Description Data Corrie rce(s) Supporting Document(s) Thyroid Stimulating Hormone 5.420 uIU/ML 0.358-3.740 [facility] ([facility]) Free T4 0.82 ng/dL 0.76-1.46 [facility] ([facility] ID Date Data Source [id number] 09/01/2019 08:30:00 AM EDT [facility] ([facility]) Name Value Range Interpretation Code Description Data Corrie rce(s) Supporting Document(s) Thyroperoxidase Ab [Units/volume] in Serum or Plasma 28.6 U/ML [facility] ([facility]) ID Date Data Source [id number] 08/08/2019 07:00:00 PM EDT [facility] Name Value Range Interpretation Code Description Data Corrie rce(s) Supporting Document(s) Progress Note [facility] JCYFGo3kMlHERaSw68/DLRlcHUEce7RiSXdcLIi0IJzzBKBcI7NuCVO4bN3zHWP2CNdIMgSuGpTgIHYh m [file] IOM2IWVOczaOcSvyRcbsuDZUzRGQql6eKA7ElRYRqLZdJdMxse+uRpOj2QZFtWrjf5qdBEo74iB/3/Pot Washer [file] SP/MAP/T+sketch maker+5//AyIgCLO2B00iLalTmWSw/iPqTWe [file] FIELD RADIO OPERATOR+Mf9MQMWqVNe6O6H2OVUpAMz4W3KSM4AVVNVaCJbwKBxdJEEvYLz8D3D2KKAnD3EEC2Ckdpticj7+ RO4KW21NJSJxNNj4C2N4dUGmB6N0iRaTdNA3SN7NIV6UpIg9kRBhvE4+EB2PW6YMHiZvTIv3L1H5hXSd I0P8nKmCeWK6UM9XNK0EfMXhNTTeoiLwMl4gJ9QBUI qRDrCLNTR7TB6EoWNnBS6XcUYKI1EzrEBlCy7aAMefjHRmaM6vVr3aGFswZR1GNqTMHGnEXLZ8JX4XkJ VaVN0FuLUXA5HkuQSxBn3aKDapvTJzzr7+LE3OPWKjFk9LTp0+FEdariLfRsjCLrW6SKFle4DpPYn1NO 7WZL2uvMbhYVA5Po0YzCN2hUObN8mJXT7HtCQiK09m nTMzODVmHu7RZeG0zdVxsP8KVN79kWJfb8E7UDYuR8uaOPzqb79fCKjqUYgLTP3jDBLOQIobGFwpXED7 RqVlxnkjHUPbVi8GToDjIQr4qS1faJO0DSF5HmdonAKmPMzsIzBqCtLgPzE2fNnxeqh9TGytQZ5gKVlp czptZXRhLyc+RVjhNFOjHPXqKtfOUUMwlP8fseK8ld JcWZjgmZHhSg9ye7s6SyvfDu8iFe7nPVs8QpBaJuKkJQNdAb2mhC91HNaednCjWm1JNvUxHZP3C3WqQr pSREY+LXpvZAmxnMw9cIUoBNGnQu2KBJUxDJTfWIHmHEIjXJKeVXDnIOHiRDIwPFPdIYMpRDEzJKSnVR AgICAgICAgICAgICAgICAgICAgICAgICAgICAgICAg IEDrLPNqOJPdHDMoKFIcRGDhNKZeMFVdCNWdFHQzZY4CPWTuBAZoATRfWXSjJEYgUAFtGVUsJKEnAPAd ICAgICAgICAgICAgICAgICAgICAgICAgICAgICAgICAgICAgICAgICAgICAgICAgICAgICAgICAgICAg UWNvVYJmKNVrSUOyQU4TUWPkXJRgKHSjXARhKMGeOE AgICAgICAgICAgICAgICAgICAgICAgICAgICAgICAgICAgICAgICAgICAgICAgICAgICAgICAgICAgIC KqXPOcXQSnYDBmBNAqPEBhBMVvGTGpZV3TLTBgHWSdJWFkQSTsNBUxKXRrKKIzPKJjUNDgHOBqMIGrKH AgICAgICAgICAgICAgICAgICAgICAgICAgICAgICAg UWPsUJYgGQToFXNvBOFbLCIhDOKeCYQiKQNzZJDlUIAoGJ6THJQsNLZuWLPiNCGmLBDlWICxECNdUHSq ICAgICAgICAgICAgICAgICAgICAgICAgICAgICAgICAgICAgICAgICAgICAgICAgICAgICAgICAgICAg TMEoBAPjDVTkEVEbGBQiBM2KIXGrEEMhXHClSKNbYE AgICAgICAgICAgICAgICAgICAgICAgICAgICAgICAgICAgICAgICAgICAgICAgICAgICAgICAgICAgIC DwWXBhBSYhZZKeBBNfVRQsOTHjCRAbUCUpRB0CWZYlJOBjMMWdMQNtISRhDFZtSCQvMQWlQACoROAmSS AgICAgICAgICAgICAgICAgICAgICAgICAgICAgICAg VNGcTRWdSOGwJZKnYIPbYYVzHPZvWCZjNSXuUOPjGTPaJSNvNS6FTJThMJWhWDAuOEOmKPRzHCCfVYZq ICAgICAgICAgICAgICAgICAgICAgICAgICAgICAgICAgICAgICAgICAgICAgICAgICAgICAgICAgICAg QUHsWEPgGELlPJNhROYtWVJpKY2SPVZtYZEdSDBnPF AgICAgICAgICAgICAgICAgICAgICAgICAgICAgICAgICAgICAgICAgICAgICAgICAgICAgICAgICAgIC EbBANrRWHtBMAeKBZvPHOkARCuTEJoIMSoTRWgUB4PGTFtMQFmIGCvBOQkJPZxJEYiKKYcHMUqZGHeYY AgICAgICAgICAgICAgICAgICAgICAgICAgICAgICAg DJDnIERxIINhGRIzULKcILUgBGLdDOKyWLGeBOSmRSSyNEIaOZSqTH0UEN62fYMna7M7FTEhAB4ojet/ Ue6NTDgrdcYucOUmJL0GZcDyBO3qvf7CPmAuMI2skb5RDCqPGtAkI3Y5mBQnCPZrOZHEOfLjH24lSCjg Li59VNieYDKrFrDqAOb1Aa1RKuNmA4ggDSSjLnI9KG KlGvF9JLQfYtU1XLGtSqIeSFBrSGUyZUSaIPTGUYB1JHGyKgUaViMaXSYaOGmqSDMRYMHsDNMbQmDeKT dbER2Pe4KgpPT1NEr+Hb3QZW4sg5DjBMbfNDZdSF5ajj2BSUwYJtHeX3IjdiG5MKT4DDWaVq3GYXScDQ QqsIQbNEZfAKQCRvSeY1DdcW88YKVCFy6+DQplbmRv ZyaSNlB9VFFxk6QtZJm9NY1QJOIgWIx5xVMjKHZpD9Omq2SoNa68NXWfLzcbUThoyonkwG9zAXyns2Lt EI4AHYD5GRVnXpEuNwXbKFPvLXdwBMFPPDuGZiWeE3Yqq9FcYiX0RQEqWoLbAAguMUIiAkI3WX77uMno DD1NYRXcJALrQB59FHS0WIJgZj6YSe5OHaXiGC3ofn 0EHFZfOCKvEnvUAdg8MGigAA4FzFSqI8JnfGKnr1eXUiXrX2WBOYC2EBLdBo9QOEJlIbIxWXTmBJhpZI 1hONGcWKJHvBsoaeX6TM4ZVJ2fleDlPE3OByAjXr8tLf4JIdBjF8JhR4XiJWGuJUNGTYaqOG5AIVsrPE 6vXW1Ez2ZXsBVqhV9fyy4BQGBlIDVvYameos1GNqak Y4W7jFbiZAZnHkydOIQAMBzkHA3REKTpOCO4DOXtSyRjEHLWLfFqY62nBH7ZY3Gzv39qMaO5BBDbVbAw ETfhTV95jKhrivVkaACstGzyML6EUo6+DQplbmRvYmoNCnhyZWYNCjAgNDENCjAwMDAwMDAwMDAgNjU1 YkJbFb8FZQWwCPIhCXPoWxGcJHBvHIPsSOitZUOoEI Y7OxXeZSDzDXYkQH9OVtFyFNGqTRbwXBuiTZEfYKPrur5ETZLrLEMpYZX2BbIkDHLxRHXwNTlkVJBdEG T5Myo2WGMpVQXwHD2CSiWaRXYgXCQ6BICkWVPlTYTkuo2KTGVnTVKuHYG8YJSyRUMdRSWvBVbfKSYxAE R0Zyk3EEHdXGNfGB6ZJsEgRESgXHTcRlQrLGUeAMYr ee6PWLXyIVFlWXI7NlWsZCYvYPZyVYtlCBFcBLRxHYLfZUFwYSCuQJ1CQnFwMRPtYBOnSjarVVNgHHUb hy6MDJDkSTPgQdI2XFEzCZElEADfZTdjZVOdLEV7NiB8ARImBWAuUD8TMkSzTLTdQxUwUHVxZGFvMFSj zy7BALJwIWWvULE3ZpLdJECbUPOxGGzvWULoVQShWu b0IPBsHVCfTT6UNzWcUWQaPgL8AODuNWLkZAWlec7NPGFbUKXgAuCvKFWdXBNlYKFeNLsgKIIuLPU0WE T4MTNrAAAhRW4KUoAjGTHxEzywCKNzHHRoJMVadw8WEFQxFLLzLNCdRMPwJSZpLBAbEFviFUMhHOHnQk AoVZCzONKsIH7VCmRoEIEjQoG3KYokAWXkYWWvaf0Q NVReIHFuTYo1RAZiOXTjHGWxGXflEJLuFETxNjt4JOAuXWHjYX2WDaSgEVRtAiX6MIIbBYCoMJZsoj9P BKPgAUVkBgH4CHQkLKTgMOQnJGycNBIaIWWvPyUfPYRuCFIyQY8IIjSeXFPpLKFuOaFsHRYiTGWdvm9V ZCQfGLO9RoHkStTlGCRzNTKjXAvhISFnGVXeDQN9GK PzDRImCT7BZhQlOIAkNMP1UGIwTGPvRORlsx6FNIMbRFS4CTapZDBjGCQxLVGiWFzoRLFfEBH7NMJvED IbLCKzXV5GKlKxXVOiVHSzAWQeAAAtYFBiyi6CGVGqXUZ0DPmpVVSvHWWuYCZfVRquLNNxMGO4LmBjNA OqQEAmNJ8YZqLhGRZbVErbFnMmBGRzVOClsf4RLKNu ACU5FzKbHZDyAZGcHLCcUYb6rhObpXQxBQu3CR2GB9YcquEvKWIBZf5Ri243MTEnJZWuIx1VF9ncAv9y NHDnCBKOIy3CJXk0CxNuFMKmPMnhTffvMQCnIrNyYDA9SxBuI8C4CVwfNot+XKs9XiN8DyZeNKTvJAA4 KRHwWaIxOsK6HtLlZTH1BHXfYu3sPIBPZf3+XXjeqVFvdVlsNOWFJaO7HjN9IMpnJBWIXj4T ID Date Data Source [id number] 04/26/2019 04:04:00 PM EST [facility] 1 OrderSheet [facility] Emergency Department [address] [place] [address] Phone #: ext- [phone] 04/26/2019 15:25 Patient: [...] R.N.18:05 04/26/2019) Physician;DIAGNOSTIC STUDY ORDERS 2 OrderSheet [facility] Emergency Department [address] [place] [address] Phone #: ext- [phone] 04/26/2019 15:25 Patient: [...] rce(s) Supporting Document(s) ID Date Data Source [id number] 04/26/2019 04:04:00 PM EST [facility] 1 Medication Reconciliation Report [facility] Emergency Department [address] [place] [address] Phone #: ext- [phone] 04/26/2019 15:25 Patient: [...] to the patient:None. 2 Medication Reconciliation Report [facility] Emergency Department [address] [place] [address] Phone #: ext- [phone] 04/26/2019 15:25 Patient: NERY WAN Sex: F : 1990 Age: 29y Name Value Range Interpretation Code Description Data Corrie e(s) Supporting Document(s) ID Date Data Source [id number] 04/26/2019 04:04:00 PM [place] [address] Medication Administration Record [facility] Emergency Department [address] [place] [address] Phone #: ext [phone] 04/26/2019 15:25 Patient: NERY WAN Acct#: [id number] Sex: F : 1990 Age: 29yWeight: 74.8 kgHeight/Length: 64 inBMI: 28.3ALLERGIES: Ketamine, Latex, Fentanyl and RelatedDate/Time Medication Administered Medication Ordered Name Value Range Interpretation Code Description Data Corrie rce(s) Supporting Document(s) ID Date Data Source [id number] 04/26/2019 04:04:00 PM [facility] 1 General Instructions [facility] Emergency Department [address] [place] [address] Phone #: ext [phone] 04/26/2019 15:25 Patient: NERY WAN Sex: F : 1990 Age: 29yMild pre-menopausal dysfunctional uterine bleeding. (Minimal).Vaginal discharge (Mild).INSTRUCTIONSDrink plenty of fluids.Warnings: GENERAL WARNINGS: Return or contact your physician immediately if your conditionworsens or changes unexpectedly, if not improving as expected, or if other problems arise.Follow- up:Follow up with a junk removal specialist if not better. Call for an appointment. Reason for referral: evaluation,treatment and Dysfunction uterine bleeding / Cystitis / Bacterial vaginosis.Understanding of the discharge instructions verbalized by patient. ADDITIONAL INFORMATIONDysfunctional Uterine BleedingDysfunctional uterine bleeding, also called abnormal uterine bleeding, is a condition in which bleeding 2 General Instructions [facility] Emergency Department [address] [place] [address] Phone #: ext- [phone] 04/26/2019 15:25 Patient: NERY WAN Sex: F : 1990 Age: 29yis abnormal and occurs at unexpected times of the month. This happens because of changes in thehormones that help control a woman's menstrual cycle each month.The bleeding may be heavier or stretch box tender than normal. If you have heavy bleeding [...] better even with treatment 3 General Instructions [facility] Emergency Department [address] [place] [address] Phone #: ext- [phone] 04/26/2019 15:25 Patient: NERY WAN Sex: F : 1990 Age: 29y Fever of 100.4F (38C) or higher, or as directed by your provider Signs of anemia, such as pale skin, extreme fatigue or weakness, or shortness of breath Dizziness or fainting [id number] [employer]. [address] [place] [address]. All rights re served. This information is [...] more than one partner 4 General Instructions [facility] Emergency Department [address] [place] [address] Phone #: ext- [phone] 04/26/2019 15:25 - Patient: NERY WAN Sex: [...] (STDs) Infection after surgery on the reproductive [facility]En[facility] BV is most often treated with medicines [...] or cream you're prescribed. 5 General Instructions [facility] Emergency Department [address] [place] [address] Phone #: ext- [phone] 04/26/2019 15:25 Patient: NERY WAN Sex: F : 1990 Age: 29y You or any partners you have sex with have new symptoms, such as a rash, joint pain, or sores. [id number] [employer]. [address] [place] [address]. All rights reserved. This information is not intended as asubstitute for professional medical care. Always follow your healthcare professional's instructions. You have been given the following additional information: Dysfunctional Uterine Bleeding Bacterial Vaginosis (BV)(Electronically signed by Vamsi Novoa, Physician 04/27/2019 08:06) Name Value Range Interpretation Code Description Data Corrie rce(s) Supporting Document(s) ID Date Data Source [id number] 04/26/2019 04:04:00 PM [facility] 1 Clinical Report - Nurses [facility] Emergency Department [address] [place] [address] Phone #: [phone]- [phone] 04/26/2019 15:25 Patient: NERY WAN Sex: F : 1990 Age: 29yTRIAGEArrived by private vehicle. Historian: patient.Acuity: LEVEL 3.Chief Complaint: VAGINAL BLEED and ABDOMINAL PAIN.Onset. (1 weeks ago). ( Pt states she was taken to [facility] 3 days ago for abdominal pain along with vaginalbleeding, she was worked up and told per her OBGYN that her bladder is 3 times larger than normal andhas bleeding outside of the bladder, she voices the vaginal bleeding continues today and voices 6 pads perhour).Treatment [facility]:Seen within the last 72 hours at another [...] 04/26/19 BRI Doty Nexplanon Subcutaneous. --15:51 04/26/19 eWsley Childers RN.AllergiesFentanyl and Related.(hives) (seizures) --15:47 04/26/19 Wesley Childers RN 2 Clinical Report - Nurses [facility] Emergency Department [address] [place] [address] Phone #: ext- [phone] 04/26/2019 15:25 Patient: [...] Childers RN.Interventions 3 Clinical Report - Nurses [facility] Emergency Department [address] [place] [address] Phone #: ext- [phone] 04/26/2019 15:25 Patient: NERY WAN [facility] [id number] Sex: F : 1990 Age: 29y To waiting room. --15:54 04/26/19 Wesley Childers RN.PHYSICAL [id number] 04/26/19. Ambulatory to room.GENERAL / NEURO / [...] Sheffield R.N. 18:15 04/26/19. [facility] with hearing aid repair technician. --18:15 04/26/19 Tacos Sharif R.N. 18:15 [...] RR: 16. O2 saturation: 98%. --18:57 04/26/19 [place] [id number] 19:03 04/26/19. Patient [facility] with hearing aid repair technician. --19:18 04/26/19 Tacos Sharif R.N. Reassurance [...] / DISCHARGE 4 Clinical Report - Nurses [facility] Emergency Department [address] [place] [address] Phone #: ext- [phone] 04/26/2019 15:25 Patient: NERY WAN Sex: F [...] medication(s). Treatments reviewed. Reviewed referral to a junk removal specialist and primary care physician. Patient verbalized understanding. Written instructions provided in Tanzanian. The patient was discharged by the physician. [...] rce(s) Supporting Document(s) ID Date Data Source [id number] 0001 04/26/2019 04:04:00 PM [facility] 1 Clinical Report - Physicians/Mid Levels [facility] Emergency Department [address] [place] [address] Phone #: ext- [phone] 04/26/2019 15:25 Patient: [...] in the emergency department. ( seen at [facility] 3 days ago).REVIEW OF SYSTEMSNo nausea, vomiting, [...] air. 2 Clinical Report - Physicians/Mid Levels [facility] Emergency Department [address] [place] [address] Phone #: ext- [phone] 04/26/2019 15:25 Patient: [...] Test Result Flag Units (Reference) [place] [address] ---------NAME--------- NUMBER SEX AGE ADMIT DISC. XRAY# F/C TYPE SOCO Wisdom [id number] F 29 04/26/19 [id number] XBE E/R DATE OF : 1990 M/R# [id number] #: [id number] VT-05 LOCATION: EMERGENCY DEPT TRANSCRIBED: 04/26/19 19:09 IF US TRANSVAGINAL [id number] COMPLETED:04/26/19 19:10 meme [id number] {REASON FOR PELVIS: irregular vaginal bleeding -- PHYSICIAN: JONN SCHAEFER -- -- R A D I O L O G Y R E P O R T -- PATIENT HISTORY: intermittent pelvic pain and irregular vaginal bleeding, , currently on exelon arm contraceptive device, h/o of hodgkins lymphoma [id number], w/bone marrow transplant in 2011 and remission since 2013 EXAM: US Pelvis, Complete. -- CLINICAL HISTORY: Intermittent pelvic pain and irregular vaginal bleeding, , currently on exelon arm contraceptive device, h/o of hodgkins lymphoma [id number], w/bone marrow transplant in 2011 and remission since 2013 -- TECHNIQUE: Transvaginal pelvic ultrasound (complete) with image documentation. -- COMPARISON: Transabdominal pelvic ultrasound earlier the same day. -- -- FINDINGS: -- 3 Clinical Report - Physicians/[facility] Emergency Department [address] [place] [address] Phone #: ext- [phone] 04/26/2019 15:25 Patient: [...] ABD //T// PELV W/O ORAL [place] [address] ---------NAME--------- NUMBER SEX AGE ADMIT DISC. XRAY# F/C TYPE SOCO Wisdom [id number] F 29 04/26/19 [id number] XBE E/R DATE OF : 1990 M/R# [id number] #: [id number] VT-05 LOCATION: EMERGENCY DEPT TRANSCRIBED: 04/26/19 19:[address] ABD //T// PELV W/O ORAL W/[place] [id number] COMPLETED:04/26/19 19:15 meme [id number] Reason(s): Abdominal Pain Pelvic Pain PHYSICIAN: JONN [...] provided. FINDINGS: 4 Clinical Report - Physicians/[facility] Emergency Department [address] [place] [address] Phone #: ext- [phone] 04/26/2019 15:25 Patient: [...] IV Contrast Only: (HUSSEIN: 04/26/2019 17:56) ( [facility] 04/[place] 18:08) CanceledReason(s): Abdominal PainReason(s): Abdominal PainTRANSPORTATION: WC IV? IV?(Yes) O2? Oxygen?(No) Ro: No CMTS: Hematuria / Pelvic painPTT: (HUSSEIN: 04/26/2019 18:05) ( [facility] [place] 04/26/[place] 18:42) Final results Test Result Flag Units (Reference) PTT 26.1 SECONDS (24.8 - 36.7)PT/INR: (HUSSEIN: 04/26/2019 18:05) ( MsgRcvd 04/26/2019 18:42) Final results Test Result Flag Units (Reference) PROTIME 12.4 SECONDS (11.0 - 15.5) INR 0.91 L (0.93 - 1.23) 5 Clinical Report - Physicians/Mid Levels [facility] Emergency Department [address] [place] [address] Phone #: ext- [phone] 04/26/2019 15:25 Patient: NERY WAN Sex: F : 1990 Age: 29y \\BLDo\\INR INTERPRETATION\\BLDx\\ Therapeutic range for Coumadin andrelated oral anticoagulants. -International Normalized Ratio (INR): 2.0 - 3.0 for VenousThrombosis, Pulmonary Embolus, Tissue heart valves, Acute RI, Atrial Fibrillation, Valvular heartdisease and recurrent Systemic [...] yrs 6 Clinical Report - Physicians/Mid Levels [facility] Emergency Department [address] [place] [address] Phone #: ext- [phone] 04/26/2019 15:25 Patient: NERY WAN Sex: F : 1990 Age: 29y NON-AA GFR >60 mL/min AFR AMER GFR >60 mL/min Male GFR Interprentation 20-49 yrs >60 mL/min Dddgqz54-97 yrs >56 mL/min Normal 60-69 yrs >49 mL/min Normal 70-79yrs>42 mL/min Normal 80 and above >35 mL/min Normal Female GFRInterpretation 20-39 yrs >60 mL/min Normal 40-49 yrs >58 mL/minNormal 50-59 yrs > 51 mL/min Normal 60-69 yrs >45 mL/min Ebsrlm92-34 yrs >39 mL/min Normal 80 and above >32 mL/min NormalCPK: (HUSSEIN: 04/26/2019 18:05) ( MsgRcvd 04/26/2019 18:59) Final results Test Result Flag Units (Reference) CPK 58 U/L (30 - 170)US Pelvis: (HUSSEIN: 04/26/2019 17:55) ( MsgRcvd 04/26/2019 19:11) Final resultsUS PELVICReason(s): Abnormal BleedingTRANSPORTATION: WC IV? O2? Oxygen?(No) Room: ED: [place] [address] ---------NAME--------- NUMBER SEX AGE ADMIT DISC. XRAY# F/C TYPE [employer] Wisdom [id number] F 29 04/26/19 [id number] XBE E/R DATE OF : 1990 M/R# [id number] #: [id number] [place]-05 LOCATION: EMERGENCY DEPT TRANSCRIBED: 04/26/19 19:10 IF US PELVIC [id number] COMPLETED:04/26/19 19:11 meme [id number] Reason(s): Abnormal Bleeding PHYSICIAN: JONN BR R A D I O L O G Y R E P O R T PATIENT HISTORY: intermittent pelvic pain and irregular vaginal bleeding, , currently on exelon arm contraceptive device, h/o of hodgkins lymphoma [id number], w/bone marrow transplant in 2011 and remission since 2013 EXAM: US Pelvis, Complete. CLINICAL HISTORY: Intermittent pelvic pain and irregular vaginal bleeding, , currently on exelon arm contraceptive device, h/o of hodgkins lymphoma [id number], w/bone marrow transplant in 2011 and remission since 2013 TECHNIQUE: Transabdominal pelvic ultrasound (complete) with image documentation. COMPARISON: None provided. FINDINGS: ENDOMETRIUM: Normal thickness. UTERUS/CERVIX: The uterus is not seen. RIGHT OVARY: Not seen LEFT OVARY: Not seen. FREE FLUID: No free fluid. Bladder: No filling defect or bladder wall mass. IMPRESSIONS: 7 Clinical Report - Physicians/Mid Levels [facility] Emergency Department [address] [place] [address] Phone #: ext- [phone] 04/26/2019 15:25 Patient: [...] being treated for bacterial vaginosis by her junk removal specialist and she is on an antibiotic. Labs [...] (Mild). 8 Clinical Report - Physicians/Mid Levels [facility] Emergency Department [address] [place] [address] Phone #: ext- [phone] 04/26/2019 15:25 Patient: NERY WAN Sex: F : 1990 Age: 29yINSTRUCTIONS Drink plenty of fluids. Warnings: GENERAL WARNINGS: Return or contact your physician immediately if your condition worsens or changes unexpectedly, if not improving as expected, or if other problems arise. Follow-up: Follow up with a junk removal specialist if not better. Call for an appointment. Reason for referral: evaluation, treatment and Dysfunction uterine bleeding / Cystitis / Bacterial vaginosis. Understanding of the discharge instructions verbalized by patient.(Electronically signed by Vamsi Novoa, Physician 04/27/2019 08:06) Name Value Range Interpretation Code Description Data Corrie rce(s) Supporting Document(s) ID Date Data Source [id number] 04/26/2019 08:43:00 PM [facility] [address] [place] [address] ---------NAME--------- NUMBER SEX AGE ADMIT DISC. XRAY# F/C TYPE SOCO Wisdom [id number] F 29 04/26/19 [id number] XBE E/R DATE OF : 1990 M/R# [id number] #: [id number] [place]-05 LOCATION: EMERGENCY DEPT TRANSCRIBED: 04/26/19 19:[address] ABD //T// PELV W/O ORAL W/[place] [id number] COMPLETED:04/26/19 19:15 meme [id number] Reason(s): Abdominal Pain Pelvic Pain PHYSICIAN: JONN BR = R A D [...] rce(s) Supporting Document(s) ID Date Data Source [id number] 04/26/2019 07:10:00 PM [facility] [address] [facility] [place] [address] ---------NAME--------- NUMBER SEX AGE ADMIT DISC. XRAY# F/C TYPE SOCO Wisdom [id number] F 29 04/26/19 [id number] XBE E/R DATE OF : 1990 M/R# [id number] #: [id number] VT-05 LOCATION: EMERGENCY DEPT TRANSCRIBED: 04/26/19 19:10 IF US PELVIC [id number] COMPLETED:04/26/19 19:11 meme [id number] Reason(s): Abnormal Bleeding PHYSICIAN: JONN BR======== R A D I O L O G Y R E P O R T =PATIENT HISTORY:intermittent pelvic pain and irregular vaginal bleeding, , currently onexelon arm contraceptive device, h/o of hodgkins lymphoma [id number], w/bonemarrow transplant in 2011 and remission since 2013EXAM: US Pelvis, Complete.CLINICAL HISTORY: Intermittent pelvic pain and irregular vaginal bleeding, ,currently on exelon arm contraceptive device, h/o of hodgkins [id number], w/bone marrow transplant in 2011 and remission [...] rce(s) Supporting Document(s) ID Date Data Source [id number] 04/26/2019 07:09:00 PM [facility] [address] [place] [address] ---------NAME--------- NUMBER SEX AGE ADMIT DISC. XRAY# F/C TYPE SOCO Wisdom [id number] F 29 04/26/19 [id number] XBE E/R DATE OF : 1990 M/R# [id number] PH#: [phone] VT-05 LOCATION: EMERGENCY DEPT TRANSCRIBED: 04/26/19 19:09 IF US TRANSVAGINAL [id number] COMPLETED:04/26/19 19:10 meme [id number] {REASON FOR PELVIS: irregular vaginal bleeding PHYSICIAN: JONN BR = R A D I O L O G Y R E P O R T PATIENT HISTORY:intermittent pelvic pain and irregular vaginal bleeding, , currently onexelon arm contraceptive device, h/o of hodgkins lymphoma [id number], w/bonemarrow transplant in 2011 and remission since 2013EXAM: US Pelvis, Complete.CLINICAL HISTORY: Intermittent pelvic pain and irregular vaginal bleeding, ,currently on exelon arm contraceptive device, h/o of hodgkins [id number], w/bone marrow transplant in 2011 and remission [...] rce(s) Supporting Document(s) ID Date Data Source [id number] 05/02/2019 11:39:00 AM [facility] [id number] Name Value Range Interpretation Code Description Data Corrie rce(s) Supporting Document(s) Bacteria identified in Blood by Culture [facility] NO GROWTH AFTER 5 DAYS ID Date Data Source [id number] 05/02/2019 09:18:00 PM [facility] Name Value Range Interpretation Code Description Data Corrie rce(s) Supporting Document(s) CULTURE BLOOD [facility] _CULTURE BLOOD_ [place] [address] CLIA# [id number] SEE SCANNED REPORT{ PRELIM ID Date Data Source [id number] 05/02/2019 09:18:00 PM [facility] Name Value Range Interpretation Code Description Data Corrie rce(s) Supporting Document(s) CULTURE BLOOD [facility] spital _CULTURE BLOOD_ [place] [address] [facility]# [id number] SEE SCANNED REPORT{ PRELIM ID Date Data Source [id number] 04/26/2019 06:59:00 PM [facility] Name Value Range Interpretation Code Description Data Corrie rce(s) Supporting Document(s) Creatine kinase [Enzymatic activity/volume] in Serum or Plasma 5 8 U/L 30 - 170 [facility] ID Date Data Source [id number] 04/26/2019 06:59:00 PM EST [facility] Name Value Range Interpretation Code Description Data Corrie rce(s) Supporting Document(s) COMPREHENSIVE METABOLIC PANEL [facility] COMPREHENSIVE METABOLIC PANEL Sodium [Moles/volume] in Serum or Plasma 139 mEq/L 134 - 153 [facility] Potassium [Moles/volume] in Serum or Plasma 4.2 mEq/L 3.6 - 5.0 [facility] Chloride [Moles/volume] in Serum or Plasma 104 mEq/L 98 - 107 [facility] Carbon dioxide, total [Moles/volume] in Serum or Plasma 26 MEQ/L 22 - 30 [facility] Glucose [Mass/volume] in Serum or Plasma 86 MG/DL 65 - 110 [facility] BUN 19 MG/DL 7 - 21 [facility] al Creatinine [Mass/volume] in Serum or Plasma 0.9 MG/DL 0.7 - 1.5 [facility] BUN/CREAT 21 8 - 27 [facility] Protein [Mass/volume] in Serum or Plasma 7.1 G/DL 6.3 - 8.2 [facility] Albumin [Mass/volume] in Serum or Plasma 4.5 G/DL 3.9 - 5.0 [facility] Globulin [Mass/volume] in Serum by calculation 2.6 GM/DL 2.4 - 3.2 [facility] A/G RATIO 1.7 0.8 - 2.0 [facility] Calcium [Mass/volume] in Serum or Plasma 9.6 MG/DL 8.4 - 10.2 [facility] Bilirubin.total [Mass/volume] in Serum or Plasma 0.7 MG/DL 0.2 - 1.3 [facility] Alkaline phosphatase [Enzymatic activity/volume] in Serum or Plasma 52 U/L 38 - 126 [facility] Aspartate aminotransferase [Enzymatic activity/volume] in Serum or Plasma 13 U/L 5 - 40 [facility] Alanine aminotransferase [Enzymatic activity/volume] in Seru m or Plasma 10 U/L 7 - 56 [facility] Anion gap 3 in Serum or Plasma 9.0 mmol/L 8.0 - 16.0 [facility] AGE 29 yrs [facility] NON-AA GFR >60 mL/min [facility] AFR AMER GFR >60 mL/min [facility] Male GFR In terprentation [...] >32 mL/min Normal ID Date Data Source [id number] 04/26/2019 06:59:00 PM [facility] Name Value Range Interpretation Code Description Data Corrie rce(s) Supporting Document(s) Lipase [Enzymatic activity/volume] in Serum or Plasma 33 U/L 13 - 60 [facility] ID Date Data Source [id number] 04/26/2019 06:42:00 PM [facility] Name Value Range Interpretation Code Description Data Corrie rce(s) Supporting Document(s) aPTT in Blood by Coagulation assay 26.1 SECONDS 24.8 - 36.7 [facility] ID Date Data Source [id number] 04/26/2019 06:42:[address] [facility] Value Range Interpretation Code Description Data Corrie rce(s) Supporting Document(s) Prothrombin time (PT) 12.4 SECONDS 11.0 - 15.5 [facility] INR in Platelet poor plasma by Coagulation assay 0.91 0.93 - 1. 23 L [facility] \\BLDo\\INR INTERPRETATION\\BLDx\\ Therapeutic range for Coumadin and related oral anticoagulants. - International Normalized Ratio (INR): 2.0 - 3.0 for Venous Thrombosis, Pulmonary Embolus, Tissue heart valves, Acute RI, Atrial Fibrillation, Valvular heart disease and recurrent Systemic Embolism. -International Normalized Ratio (INR): 2.5 - 3.5 for Mechanical Prosthetic valve. ID Date Data Source [id number] 04/26/2019 06:31:00 PM EST [facility] Name Value Range Interpretation Code Description Data Corrie rce(s) Supporting Document(s) CBC W/AUTOMATED DIFF [facility] COMPLETE BLOOD COUNT Leukocytes [#/volume] in Blood by Automated count 5.8 10^3/uL 4.2 - 1 1.0 [facility] Erythrocytes [#/volume] in Blood by Automated count 4.31 10^6/uL 4. 20 - 5.40 [facility] Hemoglobin [Mass/volume] in Blood 12.2 g/dL 12.0 - 16.0 [facility] Hematocrit [Volume Fraction] of Blood by Automated count 37.8 % 3 7.0 - 47.0 [facility] Erythrocyte mean corpuscular volume [Entitic volume] by Auto mated count 87.7 fL 81.0 - 101 [facility] Erythrocyte mean corpuscular hemoglobin [Entitic mass] by Automated count 28.3 pg 27.0 - 34.0 [facility] Erythrocyte mean corpuscular hemoglobin concentration [Mass/volume] by Automated count 32.3 g/dL 31.0 - 36.0 [facility] Erythrocyte distribution width [Ratio] by Automated count 12.1 % 11.5 - 14.5 [facility] Platelets [#/volume] in Blood by Automated count 195 10^3/uL 150 - 45 0 [facility] Platelet mean volume [Entitic volume] in Blood by Automated count 9.2 fL 7.4 - 10.4 [facility] Neutrophils/100 leukocytes in Blood by Automated count 56.2 % 37. 0 - 80.0 [facility] Lymphocytes/100 leukocytes in Blood by Manual count 36.0 % 25.0 - 40.0 [facility] Monocytes/100 leukocytes in Blood by Automated count 6.0 % 3.0 - 8.0 [facility] Eosinophils/100 leukocytes in Blood by Automated count 1.2 % 0.0 - 7.0 [facility] Basophils/100 leukocytes in Blood by Automated count 0.3 % 0.0 - 2.5 [facility] %IG 0.3 % 0.0 - 0.0 H [facility] %NRBC 0.0 % 0.0 - 0.0 [facility] al Neutrophils [#/volume] in Blood by Automated count 3.28 10^3/uL 2.00 - 6.90 [facility] Lymphocytes [#/volume] in Blood by Automated count 2.10 10^3/uL 0.60 - 3.40 [facility] Monocytes [#/volume] in Blood by Automated count 0.35 10^3/uL 0.00 - 0.90 [facility] Eosinophils [#/volume] in Blood by Automated count 0.07 10^3/uL 0.00 - 0.70 [facility] Basophils [#/volume] in Blood by Automated count 0.02 10^3/uL 0.00 - 0.20 [facility] #IG 0.02 10^3/uL 0.00 - 0.10 [facility] osp[facility] #NRBC 0.00 10^3/uL 0.00 - 0.00 [facility] ospital MANUAL DIFF NOT INDICATED [facility] RBC MORPH NOT INDICATED [facility] spital ID Date Data Source [id number] 04/26/2019 05:32:00 PM EST [facility] Name Value Range Interpretation Code Description Data Corrie rce(s) Supporting Document(s) [facility] SOURCE Clean Catch [facility] ital COLOR yellow NORMAL: Yellow [facility] ospital CLARITY clear NORMAL: Clear [facility] spital Specific gravity of Urine by Test strip 1.030 1.001 - 1.030 [facility] pH 5 5 - 9 [facility] al Glucose [Mass/volume] in Urine by Test strip NORM NORMAL: Negat sy [facility] Bilirubin.total [Presence] in Urine by Test strip NEG NORMAL: Negative [facility] Ketones [Presence] in Urine by Test strip 5 NORMAL: Negative [facility] Protein [Mass/volume] in Urine by Test strip 15 NORMAL: Negat sy [facility] Nitrite [Presence] in Urine by Test strip NEG NORMAL: Negative [facility] BLOOD 25 NORMAL: Negative [facility] Leukocyte esterase [Presence] in Urine by Test strip 25 STORMY L: Negative [facility] Urobilinogen [Mass/volume] in Urine by Test strip NOR less sapphire n 1.0 mg/dL [facility] MICROSCOPIC See Below [facility] ital WBC 1 - 3 NORMAL: NONE SEEN [facility] Erythrocytes [#/volume] in Urine by Test strip 1 - 3 NORMAL: NON E SEEN [facility] EPITHELIAL FEW NORMAL: NONE SEEN [facility] Mucus [Presence] in Urine sediment by Light microscopy Trace NORMAL: NONE SEEN [facility] ID Date Data Source [id number] 04/25/2019 10:48:52 PM [facility] Name Value Range Interpretation Code Description Data Corrie rce(s) Supporting Document(s) Progress Note [facility] [id number] lbm [file] [id number]== ID Date Data Source [id number] 04/25/2019 10:48:47 PM [facility] Name Value Range Interpretation Code Description Data Corrie rce(s) Supporting Document(s) Progress Note [facility] [id number] lbm [file] [id number]== ID Date Data Source [id number] 04/22/2019 02:18:59 PM [facility] Name Value Range Interpretation Code Description Data Corrie e(s) Supporting Document(s) Leukocytes [#/volume] in Blood by Automated count 6.9 10*3/uL 4-10 [facility] Erythrocytes [#/volume] in Blood by Automated count 4.88 10*6/uL 4.1- 5.3 [facility] Hemoglobin [Mass/volume] in Blood 14.1 g/dL 11.5-15.5 [facility] Hematocrit [Volume Fraction] of Blood by Automated count 42.9 % 3 6-45 [facility] Erythrocyte mean corpuscular volume [Entitic volume] by Auto mated count 88.0 fL 80-96 [facility] Erythrocyte mean corpuscular hemoglobin [Entitic mass] by Automated count 29.0 pg 27-33 [facility] Erythrocyte mean corpuscular hemoglobin concentration [Mass/volume] by Automated count 33.0 g/dL 32.0[facility] distribution width [Ratio] by Automated count 13.1 % 11.5-14.5 [facility] Platelets [#/volume] in Blood by Automated count 234 10*3/uL 150-400 [facility] Differential cell count method - Blood [facility] Neutrophils/100 leukocytes in Blood by Automated count 71 % [facility] Lymphocytes/100 leukocytes in Blood by Automated count 22 % [facility] Monocytes/100 leukocytes in Blood by Automated count 5 % [facility] Eosinophils/100 leukocytes in Blood by Automated count 1 % [facility] Basophils/100 leukocytes in Blood by Automated count 1 % [facility] Neutrophils [#/volume] in Blood by Automated count 4.90 10*3/uL 1.8-[address] [facility] Lymphocytes [#/volume] in Blood by Automated count 1.54 10*3/uL 1.2-[address] [facility] Monocytes [#/volume] in Blood by Automated count 0.34 10*3/uL 0-0.8 [facility] Eosinophils [#/volume] in Blood by Automated count 0.06 10*3/uL 0-0.5 [facility] Basophils [#/volume] in Blood by Automated count 0.05 10*3/uL 0-0.2 [facility] Nucleated erythrocytes/100 leukocytes [Ratio] in Blood by Automated count 0 /100{WBCs} 0-0 [facility] ID Date Data Source [id number] 04/22/2019 03:10:46 PM [facility] Name Value Range Interpretation Code Description Data Corrie rce(s) Supporting Document(s) Lactate dehydrogenase [Enzymatic activit y/volume] in Serum or Plasma by Lactate to pyruvate reaction 172 U/L 122-214 [facility] ID Date Data Source [id number] 04/22/2019 03:10:46 PM [facility] Name Value Range Interpretation Code Description Data Corrie rce(s) Supporting Document(s) Albumin [Mass/volume] in Serum or Plasma by Bromocresol green (BCG) dye binding method 4.6 g/dL 3.5-5.2 [facility] al Bilirubin.total [Mass/volume] in Serum or Plasma 0.3 mg/dL <1.2 [facility] Calcium [Mass/volume] in Serum or Plasma 9.2 mg/dL 8.6-10.0 [facility] Chloride [Moles/volume] in Serum or Plasma 102 mmol/L 98-107 [facility] Creatinine [Mass/volume] in Serum or Plasma 0.86 mg/dL 0.50-0.90 [facility] Glucose [Mass/volume] in Serum or Plasma 98 mg/dL 70-140 [facility] Alkaline phosphatase [Enzymatic activity/volume] in Serum or Plasma 59 U/L 35-104 [facility] Potassium [Moles/volume] in Serum or Plasma 4.1 mmol/L 3.4-5.1 [facility] Protein [Mass/volume] in Serum or Plasma 7.5 g/dL 6.4-8.3 [facility] Sodium [Moles/volume] in Serum or Plasma 139 mmol/L 136-145 [facility] Aspartate aminotransferase [Enzymatic activity/volume] in Serum or Plasma 15 U/L <32 [facility] Urea nitrogen [Mass/volume] in Serum or Plasma 17 mg/dL 6-20 [facility] Osmolality of Serum or Plasma by calculation 289 mosm/kg 275-300 [facility] Creatinine/Urea nitrogen [Mass Ratio] in Serum or Plasma 19 [facility] Bicarbonate [Moles/volume] in Serum 22 mmol/L 22-29 [facility] Alanine aminotransferase [Enzymatic activity/volume] in Seru m or Plasma 11 U/L <33 [facility] Anion gap 3 in Serum or Plasma 14 mmol/L 8-15 [facility] Albumin/Globulin [Mass Ratio] in Serum or Plasma 1.6 [facility] Glomerular filtration rate/1.73 sq M pre dicted among non-blacks [Volume Rate/Area] in Serum or Plasma by Creatinine-based formula (MDRD) >[address] [facility] Glomerular filtration rate/1.73 sq M pre dicted among blacks [Volume Rate/Area] in Serum or Plasma by Creatinine-based formula (MDRD) >60 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) Protein, Urine Auto NEGATIVE mg/dL [facility] T ([employer]) Specific [place] Urine Auto 1.021 1.002-1.035 [facility] ([employer]) Glucose, Urine (Ua) Auto NEGATIVE mg/dL [facility] ([employer]) Urobilinogen, Urine Auto 0.2 mg/dL 0.0-2.0 [facility] T ([employer]) Ketone, Urine Auto NEGATIVE mg/dL [facility] ([employer]) Bilirubin, Urine Auto NEGATIVE [facility] ( [facility] [employer]) Nitrite, Urine Auto NEGATIVE [facility] (Wi se Woman [employer]) Leukocyte Esterase, Urine Auto 3+ Above high stormy l [facility] ([employer]) RBC, Urine Auto 6 /HPF 0-3 Above high normal [facility] ([employer]) Blood, Urine Blood NEGATIVE [facility] ([facility] e Woman [employer]EL M[employer] ADVIS[employer]) WBC, Urine Auto 11 /HPF 0-3 Above high normal [facility] ([employer]) Squamous Epithelial Cell Ur AU 16 /HPF 0-6 [facility] ([employer]) Hyaline Cast, Urine Auto 0 /LPF 0-1 [facility] T ([employer]) Bacteria, Urine Auto 2+ Above high normal M [facility]ENT ([employer]) ID Date Data Source [id number] 03/13/2019 11:26:00 AM EST [facility] ([employer]) Name Value Range Interpretation Code Description Data Corrie rce(s) Supporting Document(s) Urine Culture Result NO GROWTH [facility] ([facility] [employer]) <External Comment eCWMed> FULL REPORT IN L <SEE NOTE> [facility] ([employer]) FULL REPORT IN LAB NOTES (eCW and [facility] ). Procedure Social History Code Duration Value Status Description Data Source(s ) Smoking 04/01/2020 12:00:00 AM EST Patient has never smoked co mpleted Patient has never smoked [facility] ([facility] ) Smoking 03/27/2020 12:00:00 AM EST Never Smoker completed Never S moker eCW1 ([facility]) Smoking 03/27/2020 12:00:00 AM EST Never Smoker completed Never S moker eCW1 ([facility]) Smoking 03/25/2020 12:00:00 AM EST Non-smoker, Non-drink er, Non-drug User completed Non-smoker, Non-drinker, Non-drug User [facility] ([facility] [employer] [facility] [employer]) Alcohol intake 03/18/2020 12:00:00 AM EST Ex-drinker (finding) comp leted Ex- drinker (finding) [facility] Tobacco use and exposure 03/18/2020 12:00:00 AM EST Never used co mpleted Never used [facility] Smoking 03/18/2020 12:00:00 AM EST Never smoker completed Never s [facility] Smoking 02/25/2020 12:00:00 AM EST Never Smoker completed Never S moker eCW1 ([facility]) Smoking 01/29/2020 06:23:00 PM EDT Denies Ever Smoked complete d Denies Ever Smoked [facility] Alcohol intake 01/25/2020 12:00:00 AM EDT Current non-d kumar of alcohol (finding) completed Current non-drinker of alcohol (finding) [facility] Smoking 01/20/2020 12:00:00 AM EDT Never [...] smoked comp leted Unknown if ever smoked [facility] Alcohol intake 01/06/2020 12:00:00 AM EDT Current non-d kumar of alcohol (finding) completed Current non-drinker of alcohol (finding) [facility] Alcohol intake 11/05/2019 12:00:00 AM EDT Current non-d kumar of alcohol (finding) completed Current non-drinker of alcohol (finding) [facility] Smoking 11/05/2019 12:00:00 AM EDT Never smoker completed Never s [facility] Smoking 09/11/2019 12:00:00 AM EDT Never Smoked Cigarettes com pleted Never Smoked Cigarettes [facility] ([facility]) Alcohol intake 08/07/2019 12:00:00 AM EDT Current non-d kumar of alcohol (finding) completed Current non-drinker of alcohol (finding) [facility] Smoking 08/07/2019 12:00:00 AM EDT Never smoker completed Never s [facility] Smoking 08/02/2019 12:00:00 AM EDT Never Smoker completed Never S moker eCW1 ([facility]) Smoking 08/02/2019 12:00:00 AM EDT Never Smoker completed Never S moker eCW1 ([facility]) Alcohol intake 04/25/2019 12:00:00 AM EST Current non-d kumar of alcohol (finding) completed Current non-drinker of alcohol (finding) [facility] Smoking 04/25/2019 12:00:00 AM EST Never smoker completed Never s [facility] Vital Signs ID Date Data Source [id number] Name Value Range Interpretation Code Description Data Source(s) Body surface area Derived from formula 1.75 m2 1.75 m2 [facility] Body weight 69.854 kg 69.854 kg [facility] ([facility]) [place] body weight 120 [lb_av] 120 [lb_av] MEDEN T ([facility]) Body mass index (BMI) [Ratio] 26.4 kg/m2 26.4 k g/m2 [facility] ([facility]) Body weight 154.00 [lb_av] 154.00 [lb_av] [facility] Body height 64 [in_i] 64 [in_i] [facility] ([facility]) 5'4" Oxygen saturation in Arterial blood by Pulse oximetry 99 % 99 % [facility] ([facility]) Heart rate 103 /min 103 /min [facility]) Diastolic blood pressure 80 mm[Hg] 80 mm[Hg] MEDENT ([facility]) Systolic blood pressure 120 mm[Hg] 120 mm[Hg] M EDENT ([facility]) Diastolic blood pressure 66 mm[Hg] 66 mm[Hg] eCW1 ([facility]) Systolic blood pressure 100 mm[Hg] 100 mm[Hg] e CW1 ([facility]) Body temperature 97.4 [degF] 97.4 [degF] W1 ( [facility]) Respiratory rate 18 /min 18 /min eCW1 ([facility]) Heart rate 111 /min 111 /min eCW1 ([facility]) Body mass index (BMI) [Ratio] 26.12 kg/m2 26.12 kg/m2 W1 ([facility]) Body height 65 [in_i] 65 [in_i] eCW1 ([facility]) Body weight 157 [lb_av] 157 [lb_av] eCW1 ([facility]) Diastolic blood pressure 66 mm[Hg] 66 mm[Hg] MEDENT ([facility]) Systolic blood pressure 104 mm[Hg] 104 mm[Hg] M EDENT ([facility] [facility] [employer]) Body surface area Derived from formula 1.76 m2 1.76 m2 [facility] Body weight 70.535 kg 70.535 kg [facility] ([facility]) [place] body weight 120 [lb_av] 120 [lb_av] MEDEN T ([facility]) Body mass index (BMI) [Ratio] 26.7 kg/m2 26.7 k g/m2 [facility] ([facility]) Body weight 155.50 [lb_av] 155.50 [lb_av] [facility] Body height 64 [in_i] 64 [in_i] [facility] ([facility]) 5'4" Oxygen saturation in Arterial blood by Pulse oximetry 98 % 98 % [facility] ([facility]) Heart rate 89 /min 89 /min [facility] ([facility]) Diastolic blood pressure 78 mm[Hg] 78 mm[Hg] [facility] ([facility]) Systolic blood pressure 116 mm[Hg] 116 mm[Hg] M [facility] Diastolic blood pressure 56 mm[Hg] 56 mm[Hg] [facility] ([facility]) Systolic blood pressure 116 mm[Hg] 116 mm[Hg] M [facility] ([facility]) Diastolic blood pressure 62 mm[Hg] 62 mm[Hg] eCW1 ([facility]) Systolic blood pressure 100 mm[Hg] 100 mm[Hg] e CW1 ([facility]) Body temperature 97.9 [degF] 97.9 [degF] eCW1 ( [facility]) Respiratory rate 18 /min 18 /min eCW1 ([facility]) Heart rate 106 /min 106 /min eCW1 ([facility]) Body mass index (BMI) [Ratio] 25.06 kg/m2 25.06 kg/m2 W1 ([facility]) Body height 65 [in_i] 65 [in_i] eCW1 ([facility]) Body weight 150.6 [lb_av] 150.6 [lb_av] eCW1 ([facility]) Diastolic blood pressure 60 mm[Hg] 60 mm[Hg] MEDENT ([employer]) Systolic blood pressure 106 mm[Hg] 106 mm[Hg] M EDENT ([facility]) Body temperature 36.8 shruthi Normal (applies to non-numeric results) 36.8 shruthi [facility] Respiratory rate 16 min Normal (applies to non-numeric results) 16 min [facility] Deprecated Oxygen saturation in Capillary blood by Oximetry 100 % Normal (applies to non-numeric results) 100 % [facility] Heart rate 99 min Normal (applies to non-numeric resul ts) 99 min [facility] Diastolic blood pressure 91 mm[Hg] Normal (applies to non-numeric results) 91 mm[Hg] [facility] Systolic blood pressure 140 mm[Hg] Normal (applies t o non-numeric results) 140 mm[Hg] [facility] Body mass index (BMI) [Ratio] 24.3 kg/m2 No rmal (applies to non-numeric results) 24.3 kg/m2 [facility] Body weight Measured 142 [lb_av] Normal (applies to n on-numeric results) 142 [lb_av] [facility] Body height 162.1536 cm Normal (applies to non-numeric res ults) 162.1536 cm [facility] Diastolic blood pressure 58 mm[Hg] 58 mm[Hg] eCW1 ([facility]) Systolic blood pressure 96 mm[Hg] 96 mm[Hg] e CW1 ([facility]) Body temperature 96.8 [degF] 96.8 [degF] eCW1 ( [facility]) Respiratory rate 18 /min 18 /min eCW1 ([facility]) Heart rate 104 /min 104 /min eCW1 ([facility]) Body mass index (BMI) [Ratio] 25.62 kg/m2 25.62 kg/m2 eCW1 ([facility]) Body height 65 [in_i] 65 [in_i] eCW1 ([facility]) Body weight 154 [lb_av] 154 [lb_av] eCW1 ([facility]) Oxygen saturation in Arterial blood by Pulse oximetry 98 % 98 % MEDENT ([facility]) Body mass index (BMI) [Ratio] 28.2 kg/m2 28.2 k g/m2 MED[facility] ([facility]) Body weight 172.38 [lb_av] 172.38 [lb_av] MEDEN T ([facility]) Body height 65.5 [in_i] 65.5 [in_i] MEDENT ([facility]) 5'5.50" Heart rate 112 /min 112 /min MEDENT ([facility]) Diastolic blood pressure 62 mm[Hg] 62 mm[Hg] MEDENT ([facility]) Systolic blood pressure 110 mm[Hg] 110 mm[Hg] M EDENT ([facility]) Oxygen saturation in Arterial blood by Pulse oximetry 96 % 96 % MEDENT ([facility]) Body mass index (BMI) [Ratio] 28.4 kg/m2 28.4 k g/m2 MEDENT ([facility]) Body weight 173.38 [lb_av] 173.38 [lb_av] MEDEN T ([facility]) Body height 65.5 [in_i] 65.5 [in_i] MEDENT ([facility]) 5'5.50" Heart rate 103 /min 103 /min MEDENT ([facility]) Diastolic blood pressure 68 mm[Hg] 68 mm[Hg] MEDENT ([facility]) Systolic blood pressure 110 mm[Hg] 110 mm[Hg] M EDENT ([facility]) Diastolic blood pressure 78 mm[Hg] 78 mm[Hg] eCW1 ([facility]) Systolic blood pressure 122 mm[Hg] 122 mm[Hg] e CW1 ([facility]) Body temperature 99.3 [degF] 99.3 [degF] eCW1 ( [facility]) Heart rate 104 /min 104 /min eCW1 ([facility]) Body mass index (BMI) [Ratio] 29.62 kg/m2 29.62 kg/m2 eCW1 ([facility]) Body height 65 [in_us] 65 [in_us] eCW1 ([facility]) Body weight Measured 178 [lb_av] 178 [lb_av] eC W1 ([facility]) Diastolic blood pressure 68 mm[Hg] 68 mm[Hg] [facility] ([facility]) Systolic blood pressure 108 mm[Hg] 108 mm[Hg] M EDENT ([facility]) Diastolic blood pressure 72 mm[Hg] 72 mm[Hg] [facility] ([facility] [employer]) Systolic blood pressure 112 mm[Hg] 112 mm[Hg] M EDENT ([facility]) Diastolic blood pressure 62 mm[Hg] 62 mm[Hg] eCW1 ([facility]) Systolic blood pressure 118 mm[Hg] 118 mm[Hg] e CW1 ([facility]) Body temperature 97 [degF] 97 [degF] eCW1 ([facility]) Respiratory rate 18 /min 18 /min eCW1 ([facility]) Heart rate 110 /min 110 /min eCW1 ([facility]) Body mass index (BMI) [Ratio] 28.95 kg/m2 28.95 kg/m2 eCW1 ([facility]) Body height 65 [in_us] 65 [in_us] eCW1 ([facility]) Body weight Measured 174 [lb_av] 174 [lb_av] eC W1 ([facility]) Diastolic blood pressure 64 mm[Hg] 64 mm[Hg] MED[facility] ([employer]) Systolic blood pressure 116 mm[Hg] 116 mm[Hg] M EDENT ([employer]) Diastolic blood pressure 70 mm[Hg] 70 mm[Hg] eCW1 ([facility]) Systolic blood pressure 120 mm[Hg] 120 mm[Hg] e CW1 ([facility]) Body temperature 97.7 [degF] 97.7 [degF] eCW1 ( [facility]) Respiratory rate 18 /min 18 /min eCW1 ([facility]) Heart rate 101 /min 101 /min eCW1 ([facility]) Body mass index (BMI) [Ratio] 27.95 kg/m2 27.95 kg/m2 eCW1 ([facility]) Body height 65 [in_us] 65 [in_us] eCW1 ([facility]) Body weight Measured 168 [lb_av] 168 [lb_av] eC W1 ([facility]) Diastolic blood pressure 70 mm[Hg] 70 mm[Hg] [facility] ([employer]) Systolic blood pressure 100 mm[Hg] 100 mm[Hg] M EDENT ([employer]) ID Date Data Source [id number] 03/30/2020 01:33:45 AM [facility] Name Value Range Interpretation Code Description Data Source(s) Body height Measured 64.5 in 64.5 in [facility] ID Date Data Source [id number] [facility] Interpretation Code Description Data Source(s) TRANSFER FROM [facility] ID Date Data Source [id number] 01/28/2020 07:27:58 PM [facility] Value Range Interpretation Code Description Data Source(s) WEIGHT RECORDED 140 lb 140 lb [facility] Body height Measured 67.99 in 67.99 in [facility] ID Date Data Source [id number] 01/16/2020 01:09:59 AM [facility] Value Range Interpretation Code Description Data Source(s) Body height Measured 67.99 in 67.99 in [facility] WEIGHT RECORDED 180.56 lb 180.56 lb [facility] ID Date Data Source [id number] 01/18/2020 08:29:15 AM [facility] Value Range Interpretation Code Description Data Source(s) WEIGHT RECORDED 159.2 lb 159.2 lb [facility] ID Date Data Source [id number] 11/06/2019 12:13:11 AM [facility] Value Range Interpretation Code Description Data Source(s) WEIGHT RECORDED 160 lb 160 lb [facility] Body height Measured 64.5 in 64.5 in [facility] ID Date Data Source [id number] 08/08/2019 07:00:00 PM [facility] Value Range Interpretation Code Description Data Source(s) WEIGHT RECORDED 170 lb 170 lb [facility] ID Date Data Source [id number] 04/25/2019 10:48:52 PM EST [facility] Name Value Range Interpretation Code Description Data Source(s) WEIGHT RECORDED 170.6 lb 170.6 lb [facility] Patient Treatment Plan of Care Planned Activity Planned Date Details Description Data Source (s) lamotrigine 200 MG Oral Tablet 03/18/2020 12:00:00 AM [facility] Levetiracetam 750 MG Oral Tablet 03/18/2020 12:00:00 AM [facility] POLYETHYLENE GLYCOL 3350 142 MG/ML Oral Solution 02/21/2020 12:00:0 0 AM [facility] Acetaminophen 325 MG / Oxycodone Hydrochloride 5 MG Or al Tablet 02/20/2020 12:00:00 AM [facility] NITROFURANTOIN, MACROCRYSTALS 25 MG / Ni trofurantoin, Monohydrate 75 MG Oral Capsule 02/20/2020 12:00:00 AM [facility] Acetaminophen 325 MG / Hydrocodone Bitartrate 5 MG Ora l Tablet 02/14/2020 12:00:00 AM [facility] Magnesium Hydroxide 80 MG/ML Oral Suspension 01/13/2020 10:00:00 PM [facility] Bisacodyl 10 MG Rectal Suppository 01/13/2020 07:45:55 AM [facility] sennofort [facility] [place], [facility] 8.6 MG Oral Tablet 01/13/2020 07:45:55 AM [facility], [facility] 35.2 MG/ML Oral Solution 01/13/2020 07:45:55 AM [facility] ondansetron (ZOFRAN) 4 MG/2ML injection 01/11/2020 08:06:55 PM [facility] Levothyroxine Sodium 0.2 MG Oral Tablet [Synthroid] 10/07/19 12:00:00 AM [facility] Levetiracetam 750 MG Oral Tablet 08/07/2019 12:00:00 AM [facility] lamotrigine 200 MG Oral Tablet 08/07/2019 12:00:00 AM [facility] Levothyroxine Sodium 0.175 MG Oral Tablet 05/30/2019 [...] 750 MG Oral Tablet 10/08/2018 12:00:00 AM [facility] lamotrigine 200 MG Oral Tablet 10/08/2018 12:00:00 AM [facility] gabapentin [address] [facility] Amitriptyline Hydrochloride [address] [facility] Levetiracetam [address] [facility] lamotrigine [address] [facility] Levothyroxine Sodium 0.[address] [facility]
[2020-04-28] MEDS ORDERED: diphenhydrAMINE 50MG/ML VIAL (J1200) IV STA (00:01)
[2020-04-28] MEDS ORDERED: METOCLOPRAMIDE INJ 10MG/2ML VIAL (J2765 PER 1) IV ONE (00:15)
[2020-04-28] MEDS ORDERED: NS 1,000 ML IV ONE (00:15)
[2020-04-28] MEDS ORDERED: KETOROLAC 30 MG/ML 1ML VIAL IV ONE (00:15)
[2020-04-28 00:47] LABS: BASO % 0.3 % (0.0-1.0); EOS % 0.3 % (0.0-3.0); HEMATOCRIT 39.5 % (36.0-47.0); HEMOGLOBIN 12.5 g/dl (12.0-15.5); LYMPH # 1.7 10^3/uL (1.5-5.0); LYMPH % 14.6 % (24.0-44.0); MEAN CORPUSCULAR HEMOGLOBIN 27.5 pg (27.0-33.0); MEAN CORPUSCULAR HGB CONC 31.6 g/dl (32.0-36.5); MONO # 0.5 10^3/uL (0.0-0.8); MONO % 4.7 % (0.0-5.0); NEUTROPHILS # 9.2 10^3/uL (1.5-8.5); NEUTROPHILS % 79.8 % (36.0-66.0); PLATELET COUNT, AUTOMATED 215 10^3/uL (150-450); RED BLOOD COUNT 4.54 10^6/uL (4.00-5.40); WHITE BLOOD COUNT 11.6 10^3/uL (4.0-10.0)
[2020-04-28 01:24] LABS: BLOOD UREA NITROGEN 9 MG/DL (7-18); CARBON DIOXIDE LEVEL 26 MEQ/L (21-32); CHLORIDE LEVEL 107 MEQ/L (98-107); CREATININE FOR GFR 0.82 MG/DL (0.55-1.30); GLOMERULAR FILTRATION RATE > 60.0 (>60); GLUCOSE, FASTING 98 MG/DL (70-100); MAGNESIUM LEVEL 2.2 MG/DL (1.8-2.4); POTASSIUM SERUM 4.9 MEQ/L (3.5-5.1); SODIUM LEVEL 137 MEQ/L (136-145)
[2020-04-28 01:40] LABS: RSV AMPLIFICATION NEGATIVE (NEGATIVE)
[2020-04-28] MEDS ORDERED: methylPREDNISolone 125MG 2ML VIAL IV ONE (02:00)
--- NOTE | 2020-04-30 11:57 | REP ---
INDICATION: SOB, body aches COMPARISON: 11/29/2019. TECHNIQUE: PA/Lateral FINDINGS: Lungs: Clear, no infiltrate. Heart: Normal in size. Mediastinum: Mediastinal silhouette unremarkable. Pleural angles: Unremarkable.. Bones and soft tissues: Unremarkable. IMPRESSION: No acute pulmonary disease. <Electronically signed by Bartolo Dorado > 04/30/20 [id number]
--- NOTE | 2020-04-30 11:59 | REP ---
INDICATION: LÓPEZ, hx "spots' on brain/seizures. COMPARISON: None. TECHNIQUE: CT BRAIN PERFORMED IN THE AXIAL PLANE. CORONAL RECONSTRUCTION IMAGES ARE PERFORMED. FINDINGS: THE VENTRICLES ARE NORMAL IN SIZE AND POSITION. THERE IS NO MIDLINE SHIFT OR MASS EFFECT. DORADO-WHITE DIFFERENTIATION IS WELL MAINTAINED. THERE IS NO ACUTE INTRACRANIAL HEMORRHAGE OR EXTRA-AXIAL FLUID COLLECTION. There is opacification of right mastoid air cells and the right middle ear cavity IMPRESSION: No acute intracranial hemorrhage, midline shift or mass effect. Opacification of right mastoid air cells and middle ear cavity suggesting inflammatory changes. A preliminary report was provided by virtual Radiology at the time of the exam. <Electronically signed by Bartolo Dorado > 04/30/20 [id number]
== END 2020-04-28 03:30 | disposition home or self-care (01) ==
LOC: M ED 22:11
DX: R51.9 Headache, unspecified (principal); R06.02 Shortness of breath; L65.9 Nonscarring hair loss, unspecified; C81.90 Hodgkin lymphoma, unspecified, unspecified site; G40.909 Epilepsy, unspecified, not intractable, without status epilepticus; Z94.81 Bone marrow transplant status; Z91.041 Radiographic dye allergy status; Z88.5 Allergy status to narcotic agent; Z91.040 Latex allergy status; Z79.899 Other long term (current) drug therapy
CPT/HCPCS: 70450; 71046; 80048; 83735; 84702; 85025; 85379; 87631; 96374; 96375; 99284; J1200; J1885; J2765; J2930

== ENCOUNTER 2020-04-29 20:09 | Inpatient (IN) | payer MEDICAID ==
[~2020-04-29] VITALS: Ht 162.6 cm; Wt 71.0 kg
--- OUTSIDE RECORDS SUMMARY | 2020-04-29 20:20 | CCD ---
Author Author [facility] Organization [facility] Address Unknown Phone Unavailable Care Team Providers Care Supervisor Fabrication And Assembly Name Role Phone Palak Seymour MD Unavailable [...] MD Unavailable Unavailable JOSE, ABILIO ROSA MARIA ARTIFICIAL CHERRY MAKER-C Unavailable Unavailable JOSE, ABILIO ROSA MARIA ARTIFICIAL CHERRY MAKER-C Unavailable Unavailable JOSE, ABILIO ROSA MARIA ARTIFICIAL CHERRY MAKER-C Unavailable Unavailable JOSE, ABILIO ROSA MARIA ARTIFICIAL CHERRY MAKER-C Unavailable Unavailable JOSE, ABILIO ROSA MARIA ARTIFICIAL CHERRY MAKER-C Unavailable Unavailable JOSE, ABILIO ROSA MARIA ARTIFICIAL CHERRY MAKER-C Unavailable Unavailable JOSE, ABILIO ROSA MARIA ARTIFICIAL CHERRY MAKER-C Unavailable Unavailable JOSE, ABILIO ROSA MARIA ARTIFICIAL CHERRY MAKER-C Unavailable Unavailable JOSE, ABILIO ROSA MARIA ARTIFICIAL CHERRY MAKER-C Unavailable Unavailable JOSE, ABILIO ROSA MARIA ARTIFICIAL CHERRY MAKER-C Unavailable Unavailable JOSE, ABILIO ROSA MARIA ARTIFICIAL CHERRY MAKER-C Unavailable Unavailable JOSE, ABILIO ROSA MARIA ARTIFICIAL CHERRY MAKER-C Unavailable Unavailable JOSE, ABILIO ROSA MARIA ARTIFICIAL CHERRY MAKER-C Unavailable Unavailable JOSE, ABILIO ROSA MARIA ARTIFICIAL CHERRY MAKER-C Unavailable Unavailable JOSE, ABILIO ROSA MARIA ARTIFICIAL CHERRY MAKER-C Unavailable Unavailable [place], Artis Dyer PA-C Unavailable Unavailable [place], M Manisha PA-C Unavailable Unavailable [place], M Manisha PA-C Unavailable Unavailable COOK, B BOO ASSISTANT FAMILY TEACHER Unavailable Unavailable COOK, B BOO ASSISTANT FAMILY TEACHER Unavailable Unavailable COOK, B BOO ASSISTANT FAMILY TEACHER Unavailable Unavailable COOK, B BOO ASSISTANT FAMILY TEACHER Unavailable Unavailable COOK, B BOO ASSISTANT FAMILY TEACHER Unavailable Unavailable COOK, B BOO ASSISTANT FAMILY TEACHER Unavailable Unavailable COOK, B BOO ASSISTANT FAMILY TEACHER Unavailable Unavailable COOK, B BOO ASSISTANT FAMILY TEACHER Unavailable Unavailable COOK, B BOO ASSISTANT FAMILY TEACHER Unavailable Unavailable COOK, B BOO ASSISTANT FAMILY TEACHER Unavailable Unavailable COOK, B BOO ASSISTANT FAMILY TEACHER Unavailable Unavailable COOK, B BOO ASSISTANT FAMILY TEACHER Unavailable Unavailable COOK, B BOO ASSISTANT FAMILY TEACHER Unavailable Unavailable COOK, B BOO ASSISTANT FAMILY TEACHER Unavailable Unavailable COOK, B BOO ASSISTANT FAMILY TEACHER Unavailable Unavailable COOK, B BOO ASSISTANT FAMILY TEACHER Unavailable Unavailable COOK, B BOO ASSISTANT FAMILY TEACHER Unavailable Unavailable COOK, B BOO ASSISTANT FAMILY TEACHER Unavailable Unavailable COOK, B BOO ASSISTANT FAMILY TEACHER Unavailable Unavailable COOK, B BOO ASSISTANT FAMILY TEACHER Unavailable Unavailable COOK, B BOO ASSISTANT FAMILY TEACHER Unavailable Unavailable COOK, B BOO ASSISTANT FAMILY TEACHER Unavailable Unavailable COOK, B BOO ASSISTANT FAMILY TEACHER Unavailable Unavailable COOK, B BOO ASSISTANT FAMILY TEACHER Unavailable Unavailable COOK, B BOO ASSISTANT FAMILY TEACHER Unavailable Unavailable COOK, B BOO ASSISTANT FAMILY TEACHER Unavailable Unavailable COOK, B BOO ASSISTANT FAMILY TEACHER Unavailable Unavailable COOK, B BOO ASSISTANT FAMILY TEACHER Unavailable Unavailable COOK, B BOO ASSISTANT FAMILY TEACHER Unavailable Unavailable COOK, B BOO ASSISTANT FAMILY TEACHER Unavailable Unavailable COOK, B BOO ASSISTANT FAMILY TEACHER Unavailable Unavailable COOK, B BOO ASSISTANT FAMILY TEACHER Unavailable Unavailable COOK, B BOO ASSISTANT FAMILY TEACHER Unavailable Unavailable COOK, B BOO ASSISTANT FAMILY TEACHER Unavailable Unavailable COOK, B BOO ASSISTANT FAMILY TEACHER Unavailable Unavailable COOK, B BOO ASSISTANT FAMILY TEACHER Unavailable Unavailable COOK, B BOO ASSISTANT FAMILY TEACHER Unavailable Unavailable COOK, B BOO ASSISTANT FAMILY TEACHER Unavailable Unavailable COOK, B BOO ASSISTANT FAMILY TEACHER Unavailable Unavailable COOK, B BOO ASSISTANT FAMILY TEACHER Unavailable Unavailable COOK, B BOO ASSISTANT FAMILY TEACHER Unavailable Unavailable COOK, B BOO ASSISTANT FAMILY TEACHER Unavailable Unavailable COOK, B BOO ASSISTANT FAMILY TEACHER Unavailable Unavailable COOK, B BOO ASSISTANT FAMILY TEACHER Unavailable Unavailable COOK, B BOO ASSISTANT FAMILY TEACHER Unavailable Unavailable COOK, B BOO ASSISTANT FAMILY TEACHER Unavailable Unavailable COOK, B BOO ASSISTANT FAMILY TEACHER Unavailable Unavailable COOK, B BOO ASSISTANT FAMILY TEACHER Unavailable Unavailable COOK, B BOO ASSISTANT FAMILY TEACHER Unavailable Unavailable COOK, B BOO ASSISTANT FAMILY TEACHER Unavailable Unavailable COOK, B BOO ASSISTANT FAMILY TEACHER Unavailable Unavailable COOK, B BOO ASSISTANT FAMILY TEACHER Unavailable Unavailable COOK, B BOO ASSISTANT FAMILY TEACHER Unavailable Unavailable COOK, B BOO ASSISTANT FAMILY TEACHER Unavailable Unavailable COOK, B BOO ASSISTANT FAMILY TEACHER Unavailable Unavailable COOK, B BOO ASSISTANT FAMILY TEACHER Unavailable Unavailable COOK, B BOO ASSISTANT FAMILY TEACHER Unavailable Unavailable COOK, B BOO ASSISTANT FAMILY TEACHER Unavailable Unavailable COOK, B BOO ASSISTANT FAMILY TEACHER Unavailable Unavailable COOK, B BOO ASSISTANT FAMILY TEACHER Unavailable Unavailable COOK, B BOO ASSISTANT FAMILY TEACHER Unavailable Unavailable COOK, B BOO ASSISTANT FAMILY TEACHER Unavailable Unavailable COOK, B BOO ASSISTANT FAMILY TEACHER Unavailable Unavailable IGOR, M CASTRO ASSISTANT FAMILY TEACHER Unavailable Unavailable IGOR, M CASTRO ASSISTANT FAMILY TEACHER Unavailable Unavailable IGOR, M CASTRO ASSISTANT FAMILY TEACHER Unavailable Unavailable IGOR, M CASTRO ASSISTANT FAMILY TEACHER Unavailable Unavailable IGOR, M CASTRO ASSISTANT FAMILY TEACHER Unavailable Unavailable IGOR, M CASTRO ASSISTANT FAMILY TEACHER Unavailable Unavailable IGOR, M CASTRO ASSISTANT FAMILY TEACHER Unavailable Unavailable IGOR, M CASTRO ASSISTANT FAMILY TEACHER Unavailable Unavailable IGOR, M CASTRO ASSISTANT FAMILY TEACHER Unavailable Unavailable IGOR, M CASTRO ASSISTANT FAMILY TEACHER Unavailable Unavailable IGOR, M CASTRO ASSISTANT FAMILY TEACHER Unavailable Unavailable IGOR, M CASTRO ASSISTANT FAMILY TEACHER Unavailable Unavailable IGOR, M CASTRO ASSISTANT FAMILY TEACHER Unavailable Unavailable IGOR, M CASTRO ASSISTANT FAMILY TEACHER Unavailable Unavailable IGOR, M CASTRO ASSISTANT FAMILY TEACHER Unavailable Unavailable IGOR, M CASTRO ASSISTANT FAMILY TEACHER Unavailable Unavailable IGOR, M CASTRO ASSISTANT FAMILY TEACHER Unavailable Unavailable IGOR, M CASTRO ASSISTANT FAMILY TEACHER Unavailable Unavailable IGOR, M CASTRO ASSISTANT FAMILY TEACHER Unavailable Unavailable IGOR, M CASTRO ASSISTANT FAMILY TEACHER Unavailable Unavailable IGOR, M CASTRO ASSISTANT FAMILY TEACHER Unavailable Unavailable IGOR, M CASTRO ASSISTANT FAMILY TEACHER Unavailable Unavailable IGOR, M CASTRO ASSISTANT FAMILY TEACHER Unavailable Unavailable IGOR, M CASTRO ASSISTANT FAMILY TEACHER Unavailable Unavailable IGOR, M CASTRO ASSISTANT FAMILY TEACHER Unavailable Unavailable IGOR, M CASTRO ASSISTANT FAMILY TEACHER Unavailable Unavailable IGOR, M CASTRO ASSISTANT FAMILY TEACHER Unavailable Unavailable IGOR, M CASTRO ASSISTANT FAMILY TEACHER Unavailable Unavailable IGOR, M CASTRO ASSISTANT FAMILY TEACHER Unavailable Unavailable IGOR, M CASTRO ASSISTANT FAMILY TEACHER Unavailable Unavailable IGOR, M CASTRO ASSISTANT FAMILY TEACHER Unavailable Unavailable IGOR, M CASTRO ASSISTANT FAMILY TEACHER Unavailable Unavailable Quezada, [place] Unavailable Unavailable Quezada, [...] BAKER, L ELOIDA ARENAS Unavailable Unavailable BAKER, L ELODIA ARENAS [...] Unavailable BAKER, L ELODIA ARENAS Unavailable Unavailable BAKRE, L ELODIA ARENAS Unavailable Unavailable BAKER, L [...] E Nargis MD Unavailable Unavailable Skipton, E Narigs MD Unavailable Unavailable Skipton, E Nargis MD [...] Unavailable Artis FONTENOT MD Unavailable Unavailable CORIEArtis ORUSE MD Unavailable Unavailable CORIEArtis ROUSE MD Unavailable [...] is protected by Article 27-F of the [facility] Public Health law. If you continue you may have access to information: Regarding HIV / AIDS; Provided by facilities licensed or operated by the [facility] Office of Mental Health; or Provided by the [facility] Office for People With Developmental Disabilities. If such information is present, then the following [facility] mandated warning applies: This information [...] law may result in a fine or shelter sentence or both. A general authorization for the release of medical or other information is NOT sufficient authorization for further disc losure. Allergies and Adverse Reactions Type Description Substance Reaction Status Data Source(s ) No Known Food Allergies No Known Food Allergies [facility] Drug allergy NOSE SPRAY NOSE SPRAY [facility] Drug allergy CT CONTRAST CT CONTRAST ANAPHYLAXIS [facility] CLASS CONTRAST MEDIA, IODINE RELATED CONTRAST MEDIA, I ODINE RELATED ANAPHYLAXIS [facility] BRANDNAME FENTANYL TRANSDERMAL SYSTEM FENTANYL TRANSDERMAL SYSTEM HI VES [facility] ENVIRONMENTAL LATEX LATEX [facility] Drug Class NO KNOWN ALLERGIES NO KNOWN ALLERGIES [facility] Drug allergy Fentanyl Fentanyl seizures Active eCW1 ([facility]) CT dye, contrast CT dye, contrast CT dye, contrast Anaphylaxis Acti ve [facility] latex latex latex Anaphylaxis Active eCW1 ([facility]) latex latex latex Anaphylaxis Active eCW1 ([facility]) CT dye, contrast CT dye, contrast CT dye, contrast Anaphylaxis Acti ve [facility] CT dye, contrast CT dye, contrast CT dye, contrast Anaphylaxis Acti ve eCW1 ([facility]) latex latex latex Anaphylaxis Active eCW1 ([facility]) Family History Family Member Name Family Member Gender Family Member Status Date o f Status Description Data Source(s) Unknown Female Problem [facility] ([facility]) Encounters Encounter Providers Location Date Indications Data Source(s ) Outpatient Attender: NOELLE FONTENOT MD 01/11/2021 12:00:00 AM [facility] Unknown [address] [address] 04/28/2020 12:00:00 AM EST [facility] Outpatient Attender: NOELLE FONTENOT MD 04/27/2020 12:00:00 AM [facility] Unknown [address] [facility] [address] 04/20/2020 12:00:00 AM EST eCW1 ([facility] hospital) Outpatient [address] [facility] [address] 03/26/2020 12:00:00 AM EST eCW1 ([facility] hospital) Outpatient Attender: Mariano Quezada [id number] [id number] 12:00:00 AM EST - 03/18/2020 08:34:34 AM EST 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, not intractable, without status epilepticus [facility] 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, not intractable, without status epilepticus Outpatient Attender: ROSA MARIA Kaye/Sindhu/Ron/Juwan hassan 03/03/2020 12:15:00 PM EST [facility] ([facility]) Office Visit Attender: ELODIA Rivera Woman transportation manager 02/2020 09:00:00 AM EST [facility] (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) Outpatient [address] [facility] [address] 02/25/2020 12:00:00 AM EST eCW1 ([facility] hospital) Office Visit Attender: ELODIA Rivera Woman transportation manager 07/2019 02:00:00 PM EST [facility] (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) Unknown [address] [facility] [address] 02/19/2020 12:00:00 AM EST eCW1 (Psych[facility] hospital) Outpatient Attender: ELODIA Rivera Woman transportation manager 11:15:00 AM EDT [facility] (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) Emergency Attender: JESSEE MARKAttender: ER PHYSICIAN 01/29/2020 01:38:00 PM EDT - 01/29/2020 06:59:00 PM EDT ABDOMINAL PAIN AND SEIZURES [facility] ABDOMINAL PAIN AND SEIZURES Patient discharged. Outpatient Referrer: VAMSI NOVOA MD 01/29/2020 10: 36:00 AM EDT seizure disorder [facility] seizure disorder Emergency Attender: MANUELITO CARVAJALConsultant: Nargis marte MD 01/29/2020 06:03:00 AM EDT - 01/29/2020 11:59:00 AM EDT [facility] Patient discharged. Outpatient Attender: Manisha Conrad PA-C CMP Internal Med a t [place] 01/29/2020 03:53:00 AM EDT [facility] ([facility]) Outpatient Attender: Mariano Quezada [id number] 020 12:00:00 AM EDT - 01/28/2020 12:03:03 PM T [facility] Unknown [address] [facility] [address] 01/24/2020 12:00:00 AM EDT eCW1 ([facility] hospital) Outpatient [address] [facility] [address] 01/20/2020 12:00:00 AM EDT eCW1 (Psychiatric hospital) Unknown [address] [facility] [address] 01/15/2020 12:00:00 AM EDT eCW1 ([facility] hospital) Inpatient Attender: RACH POWELL MDAttender: Sandoval Seymour MDAdmitter: Sandoval Gene Dawn MDReferrer: Sandoval Seymour MDConsultant: Sandoval Seymour MD [id number] 01/11/2020 12:00:00 AM EDT - 01/14/2020 12:10:00 PM EDT Epilepsy, unspecified, not intractable, with status ep ilepticus [facility] Epilepsy, unspecified, not intractable, with status epilepticus Patient discharged. Outpatient Attender: NOELLE FONTENOT MD [id number] 12/17 12:00:00 AM EDT - 01/06/2020 10:20:34 AM EDT Hodgkin lymphoma, unspecified, unspecified site [facility] Hodgkin lymphoma, unspecified, unspecifi ed site Outpatient Referrer: GLEN NELSON MD [id number] 11/29/2019 02:0 3:00 AM EDT [facility] encephalitis Outpatient Attender: Mariano Quezada [id number] 020 12:00:00 AM EDT - 11/05/2019 01:01:40 PM EDT [address] [address] 09/26/2019 12:00:00 AM EDT eCW1 ([facility]) [address] [address] 09/24/2019 12:00:00 AM EDT eCW1 ([facility]) Outpatient Attender: BOO HEAD NP Physical Therapy 09/11/2019 0 8:30:00 AM EDT [facility] ([facility]) [address] [address] 09/03/2019 12:00:00 AM EDT eCW1 ([facility]) Outpatient Attender: BOO HEAD NP Physical Therapy 08/30/2019 1 0:45:00 AM EDT [facility] ([facility]) [address] [address] 08/27/2019 12:00:00 AM EDT eCW1 ([facility]) [address] [address] 08/22/2019 12:00:00 AM EDT eCW1 ([facility]) [address] [address] 08/20/2019 12:00:00 AM EDT eCW1 ([facility]) Outpatient Attender: Mariano Quezada [id number] [id number] 12:00:00 AM EDT - 08/07/2019 03:31:04 PM EDT 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, not intractable, without status epilepticus [facility] 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, not intractable, without status epilepticus [address] [address] 08/02/2019 12:00:00 AM EDT eCW1 ([facility]) [address] [address] 07/29/2019 12:00:00 AM EDT eCW1 ([facility]) [address] [address] 07/29/2019 12:00:00 AM EDT [facility]CW1 ([facility] [address] [address] 07/29/2019 12:00:00 AM EDT eCW1 ([facility]) Outpatient Attender: ELODIA Rivera Woman transportation manager 01:00:00 PM EST [facility] (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) [address] [address] 06/04/2019 12:00:00 AM EST eCW1 ([facility]) [address] [address] 06/03/2019 12:00:00 AM EST eCW1 ([facility]) [address] [address] 05/30/2019 12:00:00 AM EST eCW1 ([facility]) [address] [address] 05/30/2019 12:00:00 AM EST eCW1 ([facility] hospital[place] [address] [address] 05/29/2019 12:00:00 AM EST eCW1 ([facility] hospital[place] [address] [address] 05/21/2019 12:00:00 AM EST eCW1 (Psychiatric hospital) Outpatient 04/26/2019 06:05:00 PM EST [facility] Emergency Attender: VAMSI NOVOA MDConsultant: Nargis hayward MD 04/26/2019 04:04:00 PM EST - 04/26/2019 07:47:00 PM EST [facility] Patient discharged. [address] [address] 04/26/2019 12:00:00 AM EST eCW1 ([facility] hospital[place] [address] [address] 04/26/2019 12:00:00 AM EST eCW1 (Psych[facility] hospital) Outpatient Attender: ELODIA Rviera Woman transportation manager 11/2019 01:45:00 PM EST [facility] (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) [address] [address] 04/24/2019 12:00:00 AM EST eCW1 ([facility]) Outpatient Attender: NOELLE FONTENOT MD 04/24/2019 12:00:00 AM [facility] Outpatient Attender: NOELLE FONTENOT MD [id number] 09/2019 12:00:00 AM EST - 04/22/2019 03:02:39 PM EST Hodgkin lymphoma, unspecified, unspecified site [facility] Hodgkin lymphoma, unspecified, unspecifi [place] site [address] [address] 03/26/2019 12:00:00 AM EST eCW1 (Psychiatric hospital) [facility] [address] [facility] [address] 03/25/2019 12:00:00 AM EST eCW1 (Psychiatric hospital) Outpatient Attender: CASTRO COSTA NP [facility] 08/2018 08:15:00 AM EST [facility] (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) Outpatient Attender: ELODIA BAKER MD [facility] 10:45:00 AM EST [facility] (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) Immunizations Vaccine Date Status Description Data Source(s) New in 2011. IIV4 04/01/2020 12:40:00 PM EST completed [facility] ([facility] ) Medications Medication Brand Name Start Date Product Form Dose Route Admi nistrative Instructions Pharmacy Instructions Status Indications Reaction Description Data Source(s) Levetiracetam 750 MG Oral Tablet levETIRAcetam 750 MG Oral Tablet (KEPPRA) levETIRAcetam 750 MG Oral Tablet (KEPPRA) 03/18/2020 12:00:00 AM EST 750 mg Oral active Take 1 tablet by tata th Two Times Daily [facility] lamotrigine 200 MG Oral Tablet lamoTRIgine 200 MG Oral Tablet (LaMICtal) lamoTRIgine 200 MG Oral Tablet (LaMICtal) 03/18/2020 12:00:00 AM EST 200 mg Oral active Nonintractable g eneralized idiopathic epilepsy without status epilepticus Take 1 tablet by mouth Two Times Daily [facility] Nonintractable generalized idiopathic ep ilepsy without status epilepticus POLYETHYLENE GLYCOL 3350 142 MG/ML Oral Solution Polyethylene Glycol 3350 17 GM/SCOOP Oral Powder (GLYCOLAX) Polyethylene Glycol 3350 17 GM/SCOOP Ora l Powder (GLYCOLAX) 02/21/2020 12:00:00 AM EST active MIX 17 GRAMS IN 8 OUNCES OF WATER OR JUICE AND TK PO D PRN FOR CONSTIPATION [facility] Acetaminophen 325 MG / Oxycodone Hydroch loride 5 MG Oral Tablet oxyCODONE- Acetaminophen 5-325 MG Oral Tablet (PERCOCET) oxyCODONE-Acetaminophen 5-325 MG Oral Tablet (PERCOCET) 02/20/2020 12:00:00 AM EST active TK 2 TS PO Q 4 H PRF PAIN. MDD 6 [facility] NITROFURANTOIN, MACROCRYSTALS 25 MG / Ni trofurantoin, Monohydrate 75 MG Oral Capsule Nitrofurantoin Monohyd Macro 100 MG Oral Capsule (MACROBID) Nitrofurantoin Monohyd Macro 100 MG Oral Capsule (MACROBID) 02/20/2020 12:00:00 AM EST active TK 1 C PO BID Ups [facility] celecoxib 200 MG Oral Capsule [Celebrex] Celebrex 02/19/2020 12 :00:00 AM EST ORAL active [facility] (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) Acetaminophen 325 MG / Oxycodone Hydrochloride 5 MG Or al Tablet [Percocet] Percocet 02/18/2020 12:00:00 AM EST ORAL active [facility] (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) Acetaminophen 325 MG / Hydrocodone Mounika trate 5 MG Oral Tablet HYDROcodone- Acetaminophen 5-325 MG Oral Tablet (LORTAB) HYDROcodone-Acetaminophen 5-325 MG Oral Tablet (LORTAB) 02/14/2020 12:00:00 AM EDT active TK 2 TS PO Q 4 H PRF PAIN. 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
If serum creatinine > 2 notify provider before administering.
[facility] Medication administered onsite Docusate Sodium 100 MG Oral Capsule docusate sodium (C OLACE) capsule 100 mg docusate sodium (COLACE) capsule 100 mg 01/13/2020 09:00:00 AM EDT 100 mg Oral active 100 mg, Oral, 2 Times Daily, First dose on 9/28/20 at 0900, For 30 days [facility] Medication administered onsite sennosides, FCI 8.6 MG Oral Tablet senna tablet 2 tablet sen na tablet 2 tablet 01/13/2020 07:45:55 AM EDT 2 {tbl} Oral active 2 tablet, Oral, Nightly PRN, Constipation, Starting 01/13/20 at 0745, For 30 days [facility] Medication administered onsite sennosides, FCI 35.2 MG/ML Oral Solution senna (SENOKO T) syrup 10 mL senna (SENOKOT) syrup 10 mL 01/13/2020 07:45:55 AM EDT 10 mL Oral active 10 mL, Oral, Nightly PRN, Constipation, Starting Mon01/13/20 at 0745, For 30 days [facility] Medication administered onsite Bisacodyl 10 MG Rectal Suppository bisacodyl (DULCOLAX ) suppository 10 mg bisacodyl (DULCOLAX) suppository 10 mg 01/13/2020 07:45:55 AM EDT 10 mg Rectal active 10 mg, Rectal, Every 72 hours PRN, Constipation, Starting Mon01/13/20 at 0745, For 30 days
Hold if patient has had BM within the past 2 days.
[facility] Medication administered onsite magnesium sulfate in dextrose 5 % infusion (premix) 1 g [id number] [id number] 01/13/2020 04:00:00 AM EDT 1 g Intravenous completed 1 g, Intravenous, Administer over 60 Minutes, Once, Mon01/13/20 at 0400, For 1 dose [facility] Medication administered onsite 2 ML Metoclopramide 5 MG/ML Prefilled Sy ringe metoclopramide (REGLAN) injection 10 mg metoclopramide (REGLAN) injection 10 mg 01/13/2020 04:00:00 AM E DT 10 mg Intravenous completed 10 mg, I ntravenous, Once, Mon01/13/20 at 0400, For 1 dose [facility] Medication administered onsite Loratadine 10 MG Oral Tablet loratadine (CLARITIN) tab let 10 mg loratadine (CLARITIN) tablet 10 mg 01/13/2020 04:00:00 AM EDT 10 mg Oral completed 10 mg, Oral, Once, Mon01/13/20 at 0400, For 1 dose [facility] Medication administered onsite Melatonin 5 MG Oral Tablet melatonin tablet 5 mg melatonin t ablet 5 mg 01/13/2020 02:30:00 AM EDT 5 mg Oral completed 5 mg, Oral, Once, Mon01/13/20 at 0230, For 1 dose [facility] Medication administered onsite Acetaminophen 10 MG/ML Injectable Soluti on acetaminophen (OFIRMEV) infusion 1,000 mg acetaminophen (OFIRMEV) infusion 1,000 mg 01/13/2020 01:45:00 AM EDT 1000 mg Intravenous completed 1,000 mg , Intravenous, Administer over 15 Minutes, Once, Mon01/13/20 at 0145, For 1 dose
Maximum dose 3 gm daily from all sources
[facility] Medication administered onsite Metoprolol Tartrate 25 MG Oral Tablet me toprolol tartrate (LOPRESSOR) tablet 25 mg metoprolol tartrate (LOPRESSOR) tablet 25 mg 01/13/2020 12:00:00 AM EDT 25 mg Oral completed 25 mg, Oral, Once, Mon01/13/20 at 0000, For 1 dose [facility] Medication administered onsite pantoprazole 40 MG Delayed Release Oral Tablet pantoprazole (PROTONIX) EC tablet 40 mg pantoprazole (PROTONIX) EC tablet 40 mg 01/12/2020 09:45:00 PM E DT 40 mg Oral active 40 mg, Ora l, Daily Standard, First dose on 01/12/20 at 2145, For 30 days
Do not crush or chew
[facility] Medication administered onsite alginic acid 200 MG / Calcium Carbonate 80 MG / magnesium trisilicate 20 MG / Sodium Bicarbonate 70 MG Oral Tablet calcium carbonate (TUMS) chewable tablet 500 mg calcium carbonate (TUMS) chewable tablet 500 mg 2019 09:37:32 PM EDT 500 mg Oral active 500 mg, Oral, Three Times Daily-PRN, Indigestion, Heartburn, Starting 01/12/20 at 2137, For 30 days [facility] Medication administered onsite Famotidine 8 MG/ML Oral Suspension famot idine (PEPCID) 40 MG/5ML oral suspension 20 mg famotidine (PEPCID) 40 MG/5ML oral suspension 20 mg 09:00:00 PM EDT 20 mg Oral active 20 mg, O ral, 2 Times Daily, First dose on 01/12/20 at 2100, For 30 days
Tablet order changed to suspension due to backorder on tablets
[facility] Medication administered onsite sodium chloride 0.9 % bolus 500 mL 01/12/2020 08:15:00 PM EDT 500 mL Intravenous completed 500 mL, Intravenous, Once, [place] 01/12/20 at 2015, For 1 dose [facility] Medication administered onsite 1 ML Ketorolac Tromethamine 15 MG/ML Car tridge ketorolac (TORADOL) 15 MG/ML injection 15 mg ketorolac (TORADOL) 15 MG/ML injection 15 mg 0 09:45:00 AM EDT 15 mg Intravenous completed 15 mg, Intravenous, Once, [place] 01/12/20 at 0945, For 1 dose [facility] Medication administered onsite 0.4 ML Enoxaparin sodium 100 MG/ML Prefi lled Syringe enoxaparin sodium (LOVENOX) injection 40 mg enoxaparin sodium (LOVENOX) injection 40 mg 01/12/2020 09:00:00 AM EDT 40 mg Subcutaneous active 40 mg, Subcutaneous, Daily Standard, First dose on Mon01/12/20 at 0900, For 30 days
Non Patients: body weight < 150 kg, CrCl > 30 mL/min. Guidelines for Lovenox:MUST wait 24 hours before starting Enoxaparin if patient has epidural catheter.D/C Enoxaparin 10-12 hours prior to removing epidural catheter.May restart Enoxaparin 24 hours after epidural catheter has been removed.
[facility] Medication administered onsite sodium chloride 0.9 % bolus 1,000 mL 01/12/2020 05:45: 00 AM EDT 1000 mL Intravenous completed 1,000 mL , Intravenous, Once, [place] 01/12/20 at 0545, For 1 dose [facility] Medication administered onsite sodium chloride 0.9 % bolus 500 mL 01/12/2020 01:15:00 AM EDT 500 mL Intravenous completed 500 mL, Intravenous, Once, [place] 01/12/20 at 0115, For 1 dose [facility] Medication administered onsite sodium chloride 0.9 % bolus 500 mL 26/2020 10:45:00 PM EDT 500 mL Intravenous completed 500 mL, Intravenous, Once, 01/11/20 at 2245, For 1 dose [facility] Medication administered onsite Levetiracetam 100 MG/ML Oral Solution le vETIRAcetam (KEPPRA) 100 MG/ML oral solution 750 mg levETIRAcetam (KEPPRA) 100 MG/ML oral solution 750 mg 01/11/2020 09:00:00 PM EDT 750 mg Per NG tube active 750 mg, Per NG tube, 2 Times Daily, First dose on 01/11/20 at 2100, For 30 days [facility] Medication administered onsite ondansetron (ZOFRAN) [...] 2022, For 7 doses [Order 2 End] [facility] Medication administered onsite ondansetron (ZOFRAN) 4 MG/2ML injection [id number] 01/11/20 08:06:55 PM EDT completed Starting Sat at 2005, For 1 dose
Brayan SANCHEZ : cabinet override
[facility] Medication administered onsite Acetaminophen 32 [...] mg from all sources in 24 hours.
[facility] Medication administered onsite propofol (DIPRIVAN) infusion 1,000 mg/100 mL [id number] 01/11/2020 01:45:00 PM EDT ug/kg/min Intravenous aborted 1 0-80 mcg/kg/min 81.9 kg (4.914-39.312 mL/hr, rounded to 4.9-39.3 mL/hr), Intravenous, at 4.9- 39.3 mL/hr, Continuous, Starting 01/11/20 at 1345, For 30 days
Starting dose = 10 mcg/kg/minTitrate to maintain RASS of -3 Increase by 5-10 mcg/kg/minMax Dose = 80 mcg/kg/min Titrate down if RASS of -3
[facility] Medication administered onsite dexmedetomidine (PRECEDEX) in NaCl 0.9 % infusion 4 mcg/mL 1 [id number] 01/11/2020 01:30:00 PM EDT ug/kg/h Intravenous aborted 0.1-1.5 mcg/kg/hr 81.9 kg (2.0475-30.7125 mL/hr, rounded to 2-30.7 mL/hr), Intravenous, at 2-30.7 mL/hr, Continuous, Starting 01/11/20 at 1330, For 30 days
Starting dose = 0.2 mcg/kg/hrTitrate to maintain RASS of -3 Titrate by 0.1-0.2 mcg/kg/hrMax Dose = 1.5 mcg/kg/hr Titrate down if RASS of -3
[facility] Medication administered onsite NaCl infusion 0.9 % [id number] 01/11/2020 12:45:00 PM EDT Intravenous aborted at 100 mL/hr, Intrav enous, Continuous, Starting 01/11/20 at 1245, For 30 days [facility] Medication administered onsite lamotrigine 100 MG Oral Tablet lamoTRIgine (LaMICtal) tablet 200 mg lamoTRIgine (LaMICtal) tablet 200 mg 01/11/2020 11:45:00 AM EDT 200 mg Oral active 200 mg, Oral, 2 Times Daily, First dose (after last reorder) on 01/11/20 at 1145, For 30 days [facility] Medication administered onsite Levetiracetam 750 MG Oral Tablet levETIRAcetam (KEPPRA ) tablet 750 mg levETIRAcetam (KEPPRA) tablet 750 mg 01/11/2020 10:30:00 AM EDT 750 m g Oral aborted 750 mg, Oral, 2 Times Daily, First dose on 01/11/20 at 1030, For 30 days [facility] Medication administered onsite propofol (DIPRIVAN) infusion 200 mg/20 mL [id number] 01/11/2020 09:00:00 AM EDT ug/kg/min Intravenous completed 10-80 mcg/kg/min 81.9 kg (4.914-39.312 mL/hr, rounded to 4.9-39.3 mL/hr), Intravenous, at 4.9- 39.3 mL/hr, Once, 01/11/20 at 0900, For 1 dose
Starting dose = 10 mcg/kg/minTitrate to maintain RASS of -2 Increase by 5-10 mcg/kg/minMax Dose = 80 mcg/kg/min Titrate down if RASS of 0
[facility] Medication administered onsite Levothyroxine Sodium 0.2 MG Oral Tablet [Synthroid] Synthroid 200 MCG Oral Tablet Synthroid 200 MCG Oral Tablet 10/07/2019 12:00:00 AM EDT 200 ug Oral aborted Take 200 mcg by mouth daily [facility] Levothyroxine Sodium 0.2 MG Oral Tablet [Synthroid] Synthroi d 09/11/2019 12:00:00 AM EDT ORAL active M EDENT ([facility]) Levetiracetam 750 MG Oral Tablet levETIRAcetam 750 MG Oral Tablet (KEPPRA) levETIRAcetam 750 MG Oral Tablet (KEPPRA) 08/07/2019 12:00:00 AM EDT 750 mg Oral aborted Take 1 tablet by tata th Two Times Daily [facility] lamotrigine 200 MG Oral Tablet lamoTRIgine 200 MG Oral Tablet (LaMICtal) lamoTRIgine 200 MG Oral Tablet (LaMICtal) 08/07/2019 12:00:00 AM EDT 200 mg Oral aborted Nonintractable g eneralized idiopathic epilepsy without status epilepticus Take 1 tablet by mouth Two Times Daily [facility] Nonintractable generalized idiopathic ep ilepsy without status epilepticus Acetaminophen 325 MG / Hydrocodone Bitartrate 5 MG Oral Tabl et [[place]] [place] 06/11/2019 12:00:00 AM EST ORAL active [facility] (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) Ibuprofen 600 MG Oral Tablet Ibuprofen 06/11/2019 12:00:00 AM EST ORAL active [facility] ([facility] 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) Levothyroxine Sodium 0.175 MG Oral Tablet Levothyroxin e Sodium 175 MCG Levothyroxine Sodium 175 MCG 05/30/2019 12:00:00 AM EST active 1 tablet in the morning on an empty stomach [facility]) gabapentin 100 MG Oral Capsule Gabapentin 04/24/2019 12:00:00 AM EST active [facility] ([facility] 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) Metronidazole 500 MG Oral Tablet Metronidazole 04/24/2019 12:00:00 AM EST ORAL completed MED[facility] ([facility] 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) Levothyroxine Sodium 0.15 MG Oral Tablet Levothyroxine Sodium 150 MCG Levothyroxine Sodium 150 MCG 03/26/2019 12:00:00 AM EST active 1 tablet in the morning on an empty stomach [facility] ([facility]) Levothyroxine Sodium 0.15 MG Oral Tablet Levothyroxine Sodium 150 MCG Levothyroxine Sodium 150 MCG 03/26/2019 12:00:00 AM EST active 1 tablet in the morning on an empty stomach [facility] ([facility]) 1 ML heparin sodium, porcine [id number] UNT/ML Injection Heparin Sodium (Porcine) 03/13/2019 12:00:00 AM EST completed [facility] (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) Pentosan Polysulfate 100 MG Oral Capsule [[place]] [place] 03/04/2019 12:00:00 AM EST ORAL active [facility] (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) lamotrigine 200 MG Oral Tablet lamoTRIgine (LAMICTAL) 200 MG tablet lamoTRIgine (LAMICTAL) 200 MG tablet 10/08/2018 12:00:00 AM EDT 200 mg Oral aborted Nonintractable generalized idiopathic epilepsy without status epilepticus Take 1 tablet by mouth Two Times Daily [facility] Nonintractable generalized idiopathic ep ilepsy without status epilepticus Levetiracetam 750 MG Oral Tablet levETIRAcetam (KEPPRA ) 750 MG tablet levETIRAcetam (KEPPRA) 750 MG tablet 10/08/2018 12:00:00 AM EDT 750 m g Oral aborted Take 1 tablet by mouth Two T imes Daily [facility] Amitriptyline Hydrochloride 25 MG Oral T ablet Amitriptyline HCl 25 MG Oral Tablet (ELAVIL) Amitriptyline HCl 25 MG Oral Tablet (ELAVIL) 25 mg Oral aborted Take 25 mg by mouth Two Times Da [facility] gabapentin 100 MG Oral Capsule Gabapentin 100 MG Oral Capsule (NEURONTIN) Gabapentin 100 MG Oral Capsule (NEURONTIN) 100 mg Oral aborted Take 100 mg by mouth Two Times Daily [facility] lamotrigine 200 MG Oral Tablet lamoTRIgine 200 MG Oral Tablet (LaMICtal) lamoTRIgine 200 MG Oral Tablet (LaMICtal) 200 mg Oral aborted Take 200 mg by mouth Two Times Daily [facility] Levetiracetam 750 MG Oral Tablet levETIRAcetam 750 MG Oral Tablet (KEPPRA) levETIRAcetam 750 MG Oral Tablet (KEPPRA) 750 mg Oral aborted Take 750 mg by mouth Two Times Daily [facility] Levothyroxine Sodium 0.112 MG Oral Table t levothyroxine (SYNTHROID, LEVOTHROID) 112 MCG tablet levothyroxine (SYNTHROID, LEVOTHROID) 112 MCG tablet 112 ug Oral aborted Take 112 mcg by mout h Daily [facility] Insurance Providers Payer name Policy type / Coverage type Policy ID Covered libertarian ID Covered libertarian's relationship to [place] Policy [place] Plan Information EMEDNY [id number] SP [id number] MEDICAID M [id number] Self [id number] MEDICAID - O/P EMERGENCY ROOM [id number] 18 [id number] MEDICAID HEA [id number] S [id number] MEDICAID M [id number] Self [id number] MEDICAID [id number] SP [id number] ANSI-Medicaid [id number] ANSI-Medicaid [id number] ANSI-Medicaid [id number] ANSI-Medicaid [id number] ANSI-Medicaid [id number] ANSI-Medicaid [id number] ANSI-Medicaid [id number] ANSI-Medicaid [id number] ANSI-Medicaid [id number] ANSI-Medicaid [id number] ANSI-Medicaid [id number] ANSI-Medicaid [id number] ANSI-Medicaid [id number] ANSI-Medicaid [id number] MEDICAID M [id number] S [id number] ANSI-Medicaid [id number] ANSI-Medicaid [id number] ANSI-Medicaid [id number] ANSI-Medicaid [id number] ANSI-Medicaid [id number] ANSI-Medicaid [id number] ANSI-Medicaid [id number] ANSI-Medicaid [id number] ANSI-Medicaid [id number] MEDICAID [id number] SP [id number] MEDICAID [id number] S [id number] MEDICAID [id number] UNAVAILABLE UNAVAILA BLE MEDICAID [facility] [id number] B [id number] Medicaid [facility] Medicaid Self SELF PAY UNAVAILABLE UNAVAILA BLE MEDICAID -PHYSICIAN [id number] MEDICAID-O/P [id number] MEDICAID - CLINIC [id number] Medicaid [place] Self Medicaid [id number] MEDICAID W [id number] S [id number] MEDICAID 3 [id number] 1 [id number] SELFPAY 5 UNAVAILABLE 1 UNAVAILA BLE MEDICAID -RECURRING [id number] MEDICAID - CLINIC [id number] W UNAVAILABLE UNAVAILA BLE Problems, Conditions, and Diagnoses Code Display Name Description Problem Type Effective Dates Data Source(s) H91.93 [id number] Decreased hearing of both ears Problem 04/20/2020 12:00:00 AM EST [facility] ([facility]) G47.19 [id number] Excessive daytime sleepiness Problem 01/20/2020 12:00:00 AM EDT [facility]CW[facility] ([facility]) G40.909 583441459 Seizure disorder Problem 01/20/2020 12:00:00 AM EDT eCW1 ([facility]) F44.5 081227020 Pseudoseizures Problem 08/02/2019 12:00:00 A M EDT eCW1 ([facility]) F44.5 511152488 Pseudoseizures Problem 08/02/2019 12:00:00 A M EDT [facility]CW[facility] ([facility]) 979070588 Chronic interstitial cystitis Chronic interstitial cys titis Problem 04/08/2019 12:00:00 AM EST [facility] (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) [id number] History of Hodgkin lymphoma History of Hodgkin lymphom a Problem 04/08/2019 12:00:00 AM EST [facility] (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) I73.00 425786101 Raynaud's phenomenon without gangrene Pro blem 03/25/2019 12:00:00 AM EST [facility]CW[facility] ([facility]) N30.10 098058122 Interstitial cystitis Problem 03/25/2019 12: 00:00 AM EST eCW1 ([facility]) E16.2 074284121 Hypoglycemia Problem 03/25/2019 12:00:00 AM EST eCW1 ([facility]) 561541659 Raynaud's phenomenon Raynaud's phenomenon Problem 03/25/2019 12:00:00 AM EST [facility] ([facility]) 768622326 Hypoglycemia Hypoglycemia Problem 03/25/2019 12:00:00 A M EST [facility] ([facility]) E16.2 029650168 Hypoglycemia Problem 03/25/2019 12:00:00 AM EST eCW1 ([facility]) I73.00 462157335 Raynaud's phenomenon without gangrene Pro blem 03/25/2019 12:00:00 AM EST eCW1 ([facility]) N30.10 735023674 Interstitial cystitis Problem 03/25/2019 12: 00:00 AM EST eCW1 ([facility]) G40.309 Generalized idiopathic epile psy and epileptic syndromes, not intractable, without status epilepticus Generalized idiopathic epilepsy and epileptic syndromes, not intractable, without status epilepticus Diagnosis 03/18/2020 07:26:37 AM [facility] seizure disorder seizure disorder Diagnosis 01/29/2020 10 :36:00 AM [facility] [id number] Latex allergy status Latex allergy status Diagnosis 01/29/2020 06:03:00 AM [facility] E039 Hypothyroidism, unspecified Hypothyroidism, unspecifie d Diagnosis 01/29/2020 06:03:00 AM [facility] U41784 Unspecified asthma, uncomplicated Unspecified as thma, uncomplicated Diagnosis 01/29/2020 06:03:00 AM [facility] R1084 Generalized abdominal pain Generalized abdominal pain Diagnosis 01/29/2020 06:03:00 AM [facility] [id number] Epilepsy, unspecified, not intractable, without status epilepticus Epilepsy, unspecified, not intractable, without status epilepticus Diagnosis 01/29/2020 06:03:00 AM [facility] G40.901 Epilepsy, unspecified, not intractable, with status epilepticus Epilepsy, unspecified, not intractable, with status epilepticus Diagnosis 01/12/2020 01:58:11 PM EDT [facility] s/p seizure s/p seizure Diagnosis [facility] Diagnosis 11/29/2019 02:03:00 AM ED [facility] encephalitis encephalitis Diagnosis 11/29/2019 02:03:00 A M [facility] N924 Excessive bleeding in the premenopausal period Excessive bleeding in the premenopausal period Diagnosis 04/26/2019 04:04:00 PM [facility] R102 Pelvic and perineal pain Pelvic and perineal pain Diag nosis 04/26/2019 04:04:00 PM [facility] Surgeries/Procedures Procedure Description Date Indications Data Source(s) VAGINAL HYSTERECTOMY UTERUS 250 GM/< 02/13/2020 12:00: 00 AM EDT [facility] (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) BLOOD COUNT COMPLETE AUTO&AUTO DIFRNTL WBC COUNT CBC AND DIFFER ENTIAL Routine 01/14/2020 3:53 AM EDT [facility]/14[facility] BASIC METABOLIC PANEL CALCIUM TOTAL BASIC METABOLIC PANEL Routi ne 01/14/2020 3:53 AM EDT 01/14/2020 03:53:00 AM EDT [facility] EKG 12-LEAD - CMAXX REPORT EKG 12-LEAD - CMAXX REPORT 01/13/2020 12:17 AM EDT 01/13/2020 12:17:52 AM EDT [facility] EKG 12-LEAD - CMAXX REPORT EKG 12-LEAD - CMAXX REPORT 01/13/2020 12:17 AM EDT 01/13/2020 12:17:52 AM EDT [facility] EKG 12-LEAD EKG 12-LEAD Routine 01/13/2020 12:17 AM EDT 01/13/2020 12:17:52 AM [facility] BLOOD COUNT COMPLETE AUTO&AUTO DIFRNTL WBC COUNT CBC AND DIFFER ENTIAL Routine 01/12/2020 4:59 AM EDT 01/12/2020 04:59:00 AM [facility] BASIC METABOLIC PANEL CALCIUM TOTAL BASIC METABOLIC PANEL Routi ne 01/12/2020 4:59 AM EDT 01/12/2020 04:59:00 AM EDT [facility] BASIC METABOLIC PANEL CALCIUM TOTAL BASIC METABOLIC PANEL Routi ne 01/11/2020 3:50 PM EDT 01/11/2020 03:50:00 PM EDT [facility] BLOOD GASES ANY COMBINATION PH PCO2 PO2 CO2 HCO3 BLOOD GAS, ART ERIAL Routine 01/11/2020 1:22 PM EDT 01/11/2020 01:22:[address] [facility] CT HEAD/BRAIN W/O CONTRAST MATERIAL CT HEAD WITHOUT CONTRAST 70 450 STAT 01/11/2020 9:52 AM EDT 01/11/2020 09:52:10 AM [facility] COVID-19 PCR COVID-19 PCR Routine 01/11/2020 9:22 AM EDT 01/11/2020 09:22:00 AM [facility] BASIC METABOLIC PANEL CALCIUM IONIZED POCT ISTAT CHEM8 Routine 01/11/2020 9:19 AM EDT 01/11/2020 09:19:00 AM EDT [facility] GONADOTROPIN CHORIONIC QUANTITATIVE POCT ISTAT BHCG Routine 01/11/2020 9:13 AM EDT 01/11/2020 09:13:00 AM EDT [facility] BLOOD GASES ANY COMBINATION PH PCO2 PO2 CO2 HCO3 POCT ISTAT VBG /LAC Routine 01/11/2020 9:10 AM EDT 01/11/2020 09:10:00 AM [facility] LAMOTRIGINE LAMOTRIGINE Routine 01/11/2020 9:01 AM EDT 01/11/2020 09:01:00 AM [facility] LEVETIRACETAM LEVEL LEVETIRACETAM LEVEL Routine 01/11/2020 9:01 AM EDT 01/11/2020 09:01:00 AM [facility] URNLS DIP STICK/TABLET REAGENT AUTO MICROSCOPY URINALYSIS W ITH MICROSCOPIC STAT 01/11/2020 8:57 AM EDT 01/11/2020 08:57:00 AM [facility] BLOOD COUNT COMPLETE AUTO&AUTO DIFRNTL WBC COUNT CBC AND DIFFER ENTIAL STAT 01/11/2020 8:57 AM EDT 01/11/2020 08:57:00 AM [facility] HEPATIC FUNCTION PANEL HEPATIC FUNCTION PANEL A STAT 0 8:57 AM EDT 01/11/2020 08:57:00 AM [facility] BASIC METABOLIC PANEL CALCIUM TOTAL BASIC METABOLIC PANEL STAT 01/11/2020 8:57 AM EDT 01/11/2020 08:57:00 AM EDT [facility] EKG 12-LEAD - CMAXX REPORT EKG 12-LEAD - CMAXX REPORT 01/11/2020 8:56 AM EDT 01/11/2020 08:56:40 AM EDT [facility] EKG 12-LEAD - CMAXX REPORT EKG 12-LEAD - CMAXX REPORT 01/11/2020 8:56 AM EDT 01/11/2020 08:56:40 AM EDT [facility] EKG 12-LEAD EKG 12-LEAD STAT 01/11/2020 8:56 AM EDT 01/11/2020 08:56:40 AM T [facility] EKG 12-LEAD - CMAXX REPORT EKG 12-LEAD - CMAXX REPORT 01/11/2020 8:56 AM EDT 01/11/2020 08:56:00 AM EDT [facility] XR CHEST FRONTAL ONLY [id number] XR CHEST FRONTAL ONLY [id number] STAT 01/11/2020 8:45 AM EDT 01/11/2020 08:45:00 AM EDT [facility] BLOOD COUNT COMPLETE AUTOMATED CBC AND DIFFERENTIAL STAT 01/06/2020 9:20 AM EDT Hodgkin lymphoma, unspecified Hodgkin lymphoma type, unspecified body region 01/06/2020 09:20:00 AM EDT Hodgkin lymphoma, unspecified Hodgkin ly mphoma type, unspecified body region [facility] Hodgkin lymphoma, unspecified Hodgkin ly mphoma type, unspecified body region LACTATE DEHYDROGENASE LDH LACTATE DEHYDROGENASE STAT 01/05 9:20 AM EDT Hodgkin lymphoma, unspecified Hodgkin lymphoma type, unspecified body region 01/06/2020 09:20:00 AM EDT Hodgkin lymphoma, unspecified Hodgkin ly mphoma type, unspecified body region [facility] Hodgkin lymphoma, unspecified Hodgkin ly mphoma type, unspecified body region COMPREHENSIVE METABOLIC PANEL COMPREHENSIVE METABOLIC PANEL Diandra gilbert 01/06/2020 9:20 AM EDT Hodgkin lymphoma, unspecified Hodgkin lymphoma type, unspecified body region 01/06/2020 09:20:00 AM EDT Hodgkin lymphoma, unspecified Hodgkin ly mphoma type, unspecified body region [facility] Hodgkin lymphoma, unspecified Hodgkin ly mphoma type, unspecified body region TRANS CARE MGMT 7 DAY DISCH 08/02/2019 12:00:00 AM EDT [facility] Transitional Care NO CHARGE Visit 07/29/2019 12:00:00 AM EDT [facility]CW1 ([facility]) Laparoscopy W/Removal Of Adnexal Struc Oophorectomy/Salp 06/13/2019 12:00:00 AM EST [facility] (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) BLOOD COUNT COMPLETE AUTO&AUTO DIFRNTL WBC COUNT CBC AND DIFFER ENTIAL STAT 04/22/2019 2:00 PM EST Hodgkin lymphoma, unspecified Hodgkin lymphoma type, unspecified body region 04/22/2019 07:00:00 PM EST Hodgkin lymphoma, unspecified Hodgkin ly mphoma type, unspecified body region [facility] Hodgkin lymphoma, unspecified Hodgkin ly mphoma type, unspecified body region LACTATE DEHYDROGENASE LDH LACTATE DEHYDROGENASE STAT 04/22 2:00 PM EST Hodgkin lymphoma, unspecified Hodgkin lymphoma type, unspecified body region 04/22/2019 07:00:00 PM EST Hodgkin lymphoma, unspecified Hodgkin ly mphoma type, unspecified body region [facility] Hodgkin lymphoma, unspecified Hodgkin ly mphoma type, unspecified body region COMPREHENSIVE METABOLIC PANEL COMPREHENSIVE METABOLIC PANEL STA T 04/22/2019 2:00 PM EST Hodgkin lymphoma, unspecified Hodgkin lymphoma type, unspecified body region 04/22/2019 07:00:00 PM EST Hodgkin lymphoma, unspecified Hodgkin ly mphoma type, unspecified body region [facility] Hodgkin lymphoma, unspecified Hodgkin ly mphoma type, unspecified body region Irrigation Of Bladder 04/08/2019 12:00:00 AM EST [facility] ([facility] 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) Irrigation Of Bladder 03/28/2019 12:00:00 AM EST [facility] (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) Results ID Date Data Source [id number] 04/28/2020 12:21:00 AM EST [facility] Name Value Range Interpretation Code Description Data Corrie rce(s) Supporting Document(s) SARS coronavirus 2 RNA [Presence] in Res piratory specimen by [facility] with probe detection NEGATIVE [facility] This lab was ordered by [facility] a nd reported by [facility]. ID Date Data Source [id number] 03/30/2020 01:33:45 AM EST [facility] Name Value Range Interpretation Code Description Data Corrie rce(s) Supporting Document(s) Progress Note [facility] COUDXq4fNaURUmWa58/NGGcdHNJiy4DoYMofDGi6LIqgSGPeH1IpEIU8hC7qKJY7HGzENzJxNuByDoJ7 lbm ZjQgwFTdZaCTXhCnyHLqZvTAytRjeuoQCbID1ZbCB5AWBmF28fISJiSKTyG9XdNXUlBEz+Ff0JOHQorY ZcBK0AZirG3U7uf3YWNz5+Vfc/OBZQ8hMZYMx/UtsFKTHkFHIJqjGZujwsRStiQ8C1wnHe/jpShmCR1R ee8zmGUNhYZkRtdRt4e4/TM1Kq+Z80hSyLzyQicR+H j6ynf93l8J//ouav+d7Da/N/spfIDzwnceLiB/k/fffLHzzrqPUdR+NDWAxoi3lzwhsRB8AyKt7uT1qp y81w6nwbEkz+hxx33DpE+8cHKklcz/M/FQ7nZg5O1y664jsi8iVsEMiQ0pYWWrFfphBWFTpOYasq7E3e Kd2mywzMLw1CtvbmVn9J/dgL2V+f5BPzHx0mIEf0PK n9UiMs9PUHAExlWG3a6MQI1kwu5GsIm0OMDZ827Tq9c7SnwS/ei8Ui0SEcTydJp4kbp/uHoczgxW2O5q gdZZtAwl7NAaaZXqhiFznCRJpFbxbdtmpKx+iQPY479TmPXecJuIbEN/jeKxJGWV6cC42yDrk0VxRXvR OhIv8fMzXEMQz7VGx53k924eLdA9TK7JX8ukS9ZpqG 3eMx5ce/X7S8NaC1KA0bTtY4vaaaH+71U8rJxyfYP4sS6d8Y6gyy5rTlp4YaiqIA6vtKe22Og6shM4zg ifz8dmYqHVLXJ9tm1MuvJJiBjgrUi0PUCERN0PD+rvZ2v0hOg6oBRI63kUeefELYcx6bVsKc9QAIi59v 11zESUtdr4AvarLbrQjY2hxv0bWOoaj+4lJq7q1pGl PSNWOHYhwfyCYAg35xNL7FwBWQJ7vlO5xz8ZSxxoAoO0zVSSx0xNmvHyxpJwG2SzR3NDUxg5EfJBSYlN 6RUZ+aaSO35UK+KO6MoYCZndlIn4AHutjMeZ5Use6zUXWQRXK/jQQyvp+zcJnH7ncNw8tzke75gy/Sofie [file] PrCWSP/MAP/T+care worker+5//LsNqLMR4D97tSmfHqSYx/wEzBKuq8CokP9w/I1J57PFHcOeV9Gq+bidak1rfs [file] ICAgICAgICAgICAgICAgICAgICAgICAgICAgICAgIC AgICAgICAgICAgICAgICAgICAgICAgICAgICAgICAgICAgICAgICAgICAgICAgICAgICAgICAgICAgIC OmBKGzLY4IQHTqTVGoZMAcGKFuZHKzSNUxTWVgQMKcUBMhKHCdCQQcLVDeRGArWWBmTIIiXUPfDJPtJT AgICAgICAgICAgICAgICAgICAgICAgICAgICAgICAg VUQdNUUtXCCeQZRlYLMqJZ7QEZMtEVYsFKRtDSItEUClXUPoDMOtQJDkASYtXUEfNNIzGJRjPFBwFMHm GYYbWEOnZJXqNSZfYRFlAXKaGLEmSHSfGTKwYFTqVRSgIZClSIKdYAMqYKTsKFMeARZcYWNkITOrSC3P ICAgICAgICAgICAgICAgICAgICAgICAgICAgICAgIC AgICAgICAgICAgICAgICAgICAgICAgICAgICAgICAgICAgICAgICAgICAgICAgICAgICAgICAgICAgIC LcAVSnDEIaCD2EWRKsWJYpOATrJPHxYGPnQMWaFNJhDBRmZAEfUPRtTOPjXUAsUKGcIPFiETObUIOwZD AgICAgICAgICAgICAgICAgICAgICAgICAgICAgICAg RGZcXPUdEFUtYBRwTDIcCDJzKB1LBSMoETYnCDQcITOuJZMlCYIdDUFlFLMzUVTtXMZoISYbUUEpVNQr ICAgICAgICAgICAgICAgICAgICAgICAgICAgICAgICAgICAgICAgICAgICAgICAgICAgICAgICAgICAg TN4LARTtJNLmIEDfOACjWZBvASBqCVCmZWVqRYKgAS AgICAgICAgICAgICAgICAgICAgICAgICAgICAgICAgICAgICAgICAgICAgICAgICAgICAgICAgICAgIC JjOZOjGVNcBNKtXC3QJFVlSWUtRNWoEMAvXYKeIVZpIKQzPJOwLGJlMZTmFEIkRKJmVFOyPNGxDHDfPD AgICAgICAgICAgICAgICAgICAgICAgICAgICAgICAg NQVcVYPjNFRsQOLrXUPsEWEvXCIvIW3YXSCcOXKzOZJxXFFfTAAbHSJyDJQtQNLaIMAsFCUdUCYlVPFa ICAgICAgICAgICAgICAgICAgICAgICAgICAgICAgICAgICAgICAgICAgICAgICAgICAgICAgICAgICAg ZJPpVP5HAJJaXFUaNQIxOKIfERSlYWHaVMPcMCLmCC AgICAgICAgICAgICAgICAgICAgICAgICAgICAgICAgICAgICAgICAgICAgICAgICAgICAgICAgICAgIC OuXSHnFUOgTQArZZQsFH8AVR95sFNbx8M3BLPiHX5xcqj/Wb8UBJneckIqkMZiTZ9RErIeCJ9eyb0SYs ZwWR5oog0BZEvORpNnY0P8hSXzSXElMEHTDiMxR83a KLowCk62SKfvPFPaLnPfAJi9Ko9IDyDfC6jxKVAzElQ9BDTdEaF5ANIoTgN9KYFkAvZmSUUaBZFyGDXw QWVKLJN6HMNkZxSpNlZhNALgTCqqZNZPOWBwGOCyYxDlKiTcWQQmIH5NSZBcJ849gcAgWASKVo6+DQpl qeIoMfqTFaSsKHUqg5OmNYb1EO7NEEDzMogoy2VzGB TcACBALFwvRI7VVOD6WMKoCBFxPi6VJLZnK754ebXiYM9HYn3JZqWsAL6dlf5UWTDhZSUvLlhQMus6EU lkAF5NmRCaQGeFui4tvuKgroXUa1MfohWjuAXOuPLlF3QlnycdBenrtWiuZPUiMJUjUTLnSl6zECWgYS U3FdD9HUHNQM6EKMTlDKSqrJFtKHBnWJFWFS7WBJzk QGY8ZWJwjkYinHVcPNdyLX9DOPUokhBzJHMnLKEIZUb+Pb1RAV0tm1UsIQp9WxNvXN6fko9QGAaPHpSo C1Q1kZVeF1G7CDvaTs0FYENcVZReVqluAGNMAXcuKH0KLL7ggaM0TE6CfKGjWZBdABRvhSQzKMi3H13d gQVtXDflWD9UQPI+Sadie+Mq9WYAPgDKHyKYBhKnSvAF RSYbThS3AvO5CPd6QgO1CdDR29wElqwbYwHZykVO3SIJ0jXBTjDJPKMZ4AzUUreQ9qquQ9BVLeHFUXVx MsE32znEMgDEHeTJX1EDSuVc3IRKPuU1PodtNcuWaestAfSBOsCPQNFP8DIJfnurLrhIZklKawQV28wI koIP7ZWs1CGpScRE2zov5RyINqEq3JMZD0Ol2NRTZv SPEnTKShIQE9QEKkVeHaDJfqDLUsTMLoISM8GZByMDZhTS1MZkKvLIGxQkAbLNUlLKBuLREfbb4XJPFg KZF4YPp0MLNaPUFyIWKvKVdfJHLsPJOwKEV5GUZnKWNkNL0OFxClBMXeVVV8BCwuWBCtKDQrtu7VXWOm XZVzMBl6WCYbGUXmDYNmBRegYCRdJYD6YUttBQBpXL LvXZ2NIkCiOCOnSOpqGKnvDXSyJQNmww5FBFApEFWyVJrhLZBeRKQfFQHbSHqsFJIwPQKzQUL9HHLuNF EgHP7ZGxYjLQFaRBQ4XESaAQIbTVWxrf3ASLFhNCYvFNKhIKPsLWOuSYQjUMjjBKUaQBX8DfXkQHQnAS UfJQ5UXiQjJFBjIWu1RRJkEYXhHUPxhd1UUDVoUXWv GKz6EmVrWEOjDJZvHMqjGHEgKKMuPFntWUYzTPWjAL0LQdIoXJLrSpX9MLoqCUXpITPpqp5DVOPxPLPu QqttLSKeBADiRNFqFCckWERzTMC5CUC8RWEhWWIqAV3UZtIoXFExKdH6QGGxJTFdJZIqmi9NWUChQXGj QRP8SSBjDOSxAXCtYRvdPBMkDLWyTvy0LTMbPBWcPH 8WCaRxHZReVvJ0ZnHmYGVoRWWohk4OZKLzUGDbFZVgXLGgZVZcLVIzEWsgWPUqZSC3YLtkZPWrHLSaEP 4IAmObYDViHsOzGKfpVMQzQZWscc0DPIWiAODwNDN5IFDoBBSsOUEaNEtxGAIlXCT3AXQnCAYmHREvVS 5ZThVnDUIzBpT8KpQtZFUtFQJfuq7LEQIvVVSaHyjv DXSbEZOaQBFqFFhcNRTxHKZ7BnshTQZoIRWpDC0QHkTnRSGhPFe6FVZvGSVbCNQahr9EHHTnFEX3ENK2 EKDxJQUtDMBcFZcpQSQaERL8DBO8UMYqWKBpZU1UBpOsZLPkWOe2WJAjENOhYFKbjm3PRUUiYYJ5RHR5 IvKdKMTuOGBgYVamYEGbWSA6CZK1PDMjWVBxYE1PPa MhNQTaRiWvWzMlRVNvMMKrhb9KPPMfMBM6ZOZrNINxDOEjMWPhLYgwZQJtCHSdFJI7EFEsNYDdUY4EKq LxMRVuNtQfAEVoNMChXWZuuc8TJUDsXDT0FxD0OMJrXOHxBEWsPLe0fpSsoMUyGEa7ZI8VR7EbezAfVG JGSu2Bs916BRNzMUZyFm8WJ2qcHe7dCBZlOUYHYw7D OLv1OrGgJWN0EeasFVxwXTXgQvg3FWl0WUvrKOPvZWP6AEl+PDodL4E6QjnaI7WqLIXuDFTgBLqnDpfn F6HoYOInSOr3UU9cRFDETg4+CPbtxDZyzMdqBCTVNxRkFJFlETcwAZKAOw2R ID Date Data Source LAMOTRIGINE (LAMICTAL) 03/20/2020 12:00:[facility] Name Value Range Interpretation Code Description Data Corrie rce(s) Supporting Document(s) 0.6 2.0-20.0 LAMOTRIGINE (LAMICTAL) [facility] ([facility]) ID Date Data Source [id number] 03/20/2020 12:00:00 AM EST eCW1 ([facility]) Name Value Range Interpretation Code Description Data Corrie rce(s) Supporting Document(s) Hemoglobin A1c/Hemoglobin.total in Blood 5.3 HEMOGLOBIN A1c [facility] ID Date Data Source [id number] 02/08/2020 09:00:00 AM EDT [facility] Name Value Range Interpretation Code Description Data Corrie rce(s) Supporting Document(s) SARS coronavirus 2 RNA [facility] This lab was ordered by [facility] and reported by [facility]. ID Date Data Source [id number] 01/31/2020 09:01:00 AM EDT [facility] [address] [place] [address] PHONE: [phone] FAX: [phone] Name .................. : SOCO iWsdom Acct Number.................. : [id number] ROOM. ................. : TR-07 MR Number ................... : [id number] Stay type ............. : E/R Discharge Date......... ... : 01/29/20 Admit Date ......... : 01/29/20 Admit Phys .................... : WEI BRISCOE Date of ....... : 1990 Family Phys ................... : SEMAJ VAUGHN Phone .................. : [phone] Age ................................ : 29 Film# .................. .:[id number] Sex ................................. : F Unsigned transcriptions are preliminary reports and do not represent a medical or legal document CT ABD & PELV W/O ORAL W/O IV [id number] COMPLETE:01/29/20 07:22 RLB [id number] Reason(s): periumbilical pain w vomiting CT SCAN [...] or ureteral calculi. Page 1 of 2 [place] [address] PHONE: [phone] FAX: [phone] Name ............. ..... : SOCO Wisdom Acct Number.................. : [id number] ROOM. ................. : TR-07 Number ................... : [id number] Stay type ............. : E/R Discharge Date......... ... : 01/29/20 Admit Date ......... : 01/29/20 Admit Phys .................... : WEI BRISCOE Date of ....... : 1990 Family Phys ................... : SEMAJ VAUGHN Phone .................. : [phone] Age ................................ : 29 Film# .................. .:[id number] Sex ................................. : F Unsigned transcriptions are preliminary reports and do not represent a medical or legal document CT ABD & PELV W/O ORAL W/O IV [id number] COMPLETE:01/29/20 07:22 RLB 10502 Reason(s): periumbilical pain w vomiting While performing [...] rce(s) Supporting Document(s) ID Date Data Source [id number] 01/31/2020 09:00:00 AM EDT [address] [place] [address] PHONE: [phone] FAX: [phone] Name .................. : SOCO Wisdom Acct Number.................. : [id number] ROOM. ................. : TR-07 MR Number ................... : [id number] Stay type ............. : E/R Discharge Date......... ... : 01/29/20 Admit Date ......... : 01/29/20 Admit Phys .................... : WEI BRISCOE Date of ....... : 1990 Family Phys ................... : SEMAJ VAUGHN [facility] .................. : [phone] Age ................................ : 29 Film# .................. .:[id number] Sex ................................. : F Unsigned transcriptions are preliminary reports and do not represent a medical or legal document CHEST PORTABLE [id number] COMPLETE:01/29/20 06:31 RLB 84400 Reason(s): seizure PORTABLE CHEST X-RAY: COMPARISON: 09/22/11 FINDINGS: There is no evidence of acute consolidation or congestive heart failure. The heart is not enlarged. There is no hilar adenopathy. IMPRESSION: No evidence of significant acute pulmonary disease. Electronically Reviewed and Signed By Madhu Costa MD , 01/31/20 09:00, [facility] Transcribe Initials: EPHRAIM , Transcribe Date: 01/29/20 23:31, Dictation Date: Copy for: 710 MED REC DISCHARGED Page 1 of 1 Name Value Range Interpretation Code Description Data Corrie rce(s) Supporting Document(s) ID Date Data Source [id number] 01/31/2020 09:00:00 AM EDT [facility] [address] [place] [address] PHONE: [phone] FAX: [phone] Name .................. : SOCO Wisdom Acct Number.................. : [id number] ROOM. ................. : TR-07 Number ................... : [id number] Stay type ............. : E/R Discharge Date......... ... : 01/29/20 Admit Date ......... : 01/29/20 Admit Phys .................... : WEI BRISCOE Date of ....... : 1990 Family Phys ................... : DYLLANSHANON VAUGHN Phone .................. : [phone] Age ................................ : 29 Film# .................. .:[id number] Sex ................................. : F Unsigned transcriptions are preliminary reports and do not represent a medical or legal document CT HEAD W/O CONTRAST [id number] COMPLETE:01/29/20 07:41 40154 Reason(s): Headache CT SCAN OF THE HEAD [...] By Madhu Costa MD , 01/31/20 09:00, [facility] Transcribe Initials: EPHRAIM , Transcribe Date: 01/29/20 16:29, Dictation Date: Page 1 of 2 [place] [address] PHONE: [phone] FAX: [phone] Name .................. : SOCO VAUGHNCLAUDINE Wisdom Acct Number.................. : [id number] ROOM. ................. : TR-07 MR Number ................... : [id number] Stay type ............. : E/R Discharge Date......... ... : 01/29/20 Admit Date ......... : 01/29/20 Admit Phys .................... : WEI BRISCOE Date of ....... : 1990 Family Phys ................... : SEMAJ VAUGHN Phone .................. : [phone] Age ................................ : 29 Film# .................. .:[id number] Sex ................................. : F Unsigned transcriptions are preliminary reports and do not represent a medical or legal document CT HEAD W/O CONTRAST [id number] COMPLETE:01/29/20 07:41 [id number] Reason(s): Headache Copy for: 710 MED REC DISCHARGED Page 2 of 2 Name Value Range Interpretation Code Description Data Corrie rce(s) Supporting Document(s) ID Date Data Source [id number] 01/29/2020 06:03:00 AM EDT [facility] 1 OrderSheet [facility] Emergency Department [address] [place] [address] Phone #: ext- [phone] 01/29/2020 06:00 Patient: NERY WAN Sex: F : 1990 Age: 29yWEIGHT:68.0 kg (S) HEIGHT:64 inches (S) BMI:25.8ALLERGIES: Fentanyl and Related, IV Contrast, Ketamine, LatexCHIEF COMPLAINT: seizure, x1, seizure, [id number]: Seizure, Abdominal painLAB ORDERSOrder Description Priority Entered Acknowledged [facility] 06:12 01/29/2020 06:31 Wei [...] Ying; Reason for Study: seizure 2 OrderSheet [facility] Emergency Department [address] [place] [address] Phone #: ext- [phone] 01/29/2020 06:00 Patient: NERY WAN Sex: F : 1990 Age: 29yCT Abd PEL W/ IV STAT 06:41 01/29/2020 Ack'd: 06:45 Glenys Sullivan R.N.Contrast Only Manuelito Carvajal Cancelled: Duplicate Order 06:54 Wei(Oxygen?(No)) Ying; Devan del real M.D.(IV?(Yes)) Reason for Study: periumbilical pain w vomitingCT ABD PEL W/O STAT 06:54 01/29/2020 07:38 Zachary,Oral W/O IV Manuelito Carvajal M.D.;(Oxygen?(No))(IV?(Yes)) Reason for Study: periumbilical pain w vomitingCT Head W/O Cont STAT 07:41 01/29/2020 07:42 Marley(Oxygen?(No)) Vamsi Elmore RN Physician; NOTES: Seizures Reason for Study: HeadacheMEDICATION/IV/DRIP/FLUID ORDERSOrder Description Priority Entered Acknowledged InitialedAtivan IVP 2 mg 06:13 01/29/2020 06:39 Nate(HIGH ALERT Turrin, Manuelito Glenys R.N.MEDICATION) Ying;NS IV 1000 mL 06:13 01/29/2020 06:50 [place],Bolus: : Bolus 1000 Turrin, Manuelito Denys R.N.mL (X1) Ying;Phenergan IV 25mg 06:13 01/29/2020 06:52 [place],in 50mL NS, give Turrin, Manuelito Denys R.N.wide open: 25 mg M.D.;(NOW x1, HIGHALERTMEDICATION)Morphine IVP 4 mg 08:16 01/29/2020 08:31 Zachary,(NOW, HIGH ALERT Vamsi Garcia R.N.MEDICATION) Physician;Zofran 4 mg IVP X 1 08:16 01/29/2020 08:31 Zachary,dose: 4 mg (NOW Vamsi Lomasica R.N.x1) Physician;Keppra 1000 mg 10:36 01/29/2020 10:52 PeterIVPB X1 dose: 1000 Vamsi Childers RNmg with Dextrose Physician;Intravenous 100 mL(D5W) 3 OrderSheet [facility] Emergency Department [address] [place] [address] Phone #: ext- [phone] 01/29/2020 06:00 Patient: NERY WAN Sex: F : 1990 Age: 29yGENERAL ORDERSOrder Description Priority Entered Acknowledged InitialedBlood Pressure 06:12 01/29/2020 06:30 [place],Monitor Manuleito Carvajal R.N., M.D.;Membership Director 06:12 01/29/2020 06:30 [place](continuous) Manuelito Carvajal R.N., [...] RN (11:59 01/29/2020)][Electronically signed by Vamsi Novoa (14:30 01/29/2020)][Electronically signed by Manuelito Carvajal M.D. (07:38 01/30/2020)][Electronically locked by Wesley Childers RN (11:59 01/29/2020)] Name Value Range Interpretation Code Description Data Corrie rce(s) Supporting Document(s) ID Date Data Source [id number] 01/29/2020 06:03:00 AM EDT [facility] 1 Medication Reconciliation Report [facility] Emergency Department [address] [place] [address] Phone #: ext- [phone] 01/29/2020 06:00 Patient: [...] 01/29/2020 6:50:00 AM 2 Medication Reconciliation Report [facility] Emergency Department [address] [place] [address] Phone #: ext- [phone] 01/29/2020 06:00 Patient: NREY WAN Sex: F : 1990 Age: 29yPhenergan [...] rce(s) Supporting Document(s) ID Date Data Source [id number] 01/29/2020 06:03:00 AM EDT [facility] 1 Medication Administration Record [facility] Emergency Department [address] [place] [address] Phone #: ext- [phone] 01/29/2020 06:00 Patient: NERY WAN Sex: F : 1990 Age: 29yWeight: 68.0 kgHeight/Length: 64 inBMI: 25.8ALLERGIES: Fentanyl and Related, Ketamine, Latex, IV Contrast Date/Time Medication Administered Medication OrderedGiven ATIVAN [IVP] (LORAZEPAM) Ativan IVP 2 mg (HIGH ALERT06:14 01/29/2020 Dose: 2 mg IVP MEDICATION)Glenys Sullivan R.N. Site: #1Start NS [IV] NS IV 1000 mL Bolus: : Bolus 006751:[id number] 01/29/2020 Dose: IV Fluids mL (X1)Denys Niño R.N. Bolus: 1000 mL wide open---- Dispensed: 1000 mL bagStop Site: #1 right EJ07:38 01/29/2020Radha Sharma RKaylahNKaylahStart PHENERGAN [IV DRIP] Phenergan IV 25mg in 50mL NS,06:51 01/29/2020 (PROMETHAZINE HCL) give wide open: 25 mg (NOW x1,Denys Niño RKaylahNKaylah Dose: 25 mg Drip IV HIGH ALERT MEDICATION)---- Rate: 25 mg/min over 1 minute(s)Stop Dispensed: 50 mL bag07:32 01/29/2020 Site: #1 right Chelly Childers RNGiven MORPHINE [IVP] Morphine IVP 4 mg (NOW, HIGH08:31 01/29/2020 Dose: 4 mg IVP ALERT MEDICATION)Radha Sharma R.N. Site: #1 right FARZANAGiven ZOFRAN [IVP] (ONDANSETRON HCL) Zofran 4 mg IVP X 1 dose: 4 mg08:31 01/29/2020 Dose: 4 mg IVP (NOW x1)Radha Sharma R.N. Site: #1 right FARZANAStart KEPPRA [IVPB] (LEVETIRACETAM) Keppra 1000 mg IVPB X1 dose:10:52 01/29/2020 Dose: 1000 mg IVPB 1000 mg with Carola Childers RN Rate: 400 mL/hr over 15 minute(s) Intravenous 100 mL (D5W)---- Dispensed: 100 mL bagStop Site: #1 right EJ11:11 01/29/2020Wesley Childers RN Name Value Range Interpretation Code Description Data Corrie rce(s) Supporting Document(s) ID Date Data Source [id number] 01/29/2020 06:03:00 AM EDT [facility] 1 General Instructions [facility] Emergency Department [address] [place] [address] Phone #: ext- [phone] 01/29/2020 06:00 Patient: [...] rce(s) Supporting Document(s) ID Date Data Source [id number] 01/29/2020 06:03:00 AM EDT [facility] 1 Clinical Report - Nurses [facility] Emergency Department [address] [place] [address] Phone #: ext- [phone] 01/29/2020 06:00 Patient: NERY WAN Sex: F : 1990 Age: 29yTRIAGEArrived by private vehicle. ( Per patient's fiance, patient was released from [facility] for seizures. Hx ofseizures. Per report, patient was home for an hour and began complaining of abdominal pain andrequested to go to the hospital. While in the car, patient had a seizure and became unresponsive. Patientassisted to room 7. Dr. Carvajal to bedside.).Triage time: 06:07 01/29/2020. Acuity: LEVEL 1.Chief Complaint: SEIZURE and (became unresponsive in car).Not alert.Onset: just prior to arrival.Treatment SENIOR CONSTRUCTION ESTIMATOR:Seen within the last 24 hours at another [...] saturation: 100%. Temp: 98.6 F. Pain levelnow 7/10. --06:33 01/29/20 Glenys Sullivan R.N.06:30 01/29/20. BP: [...] tablet, daily. 2 Clinical Report - Nurses [facility] Emergency Department [address] [place] [address] Phone #: ext- [phone] 01/29/2020 06:00 Patient: [...] in arms/hands). --06:34 01/29/20 Glenys Sullivan R.N. gambling monitor, NIBP monitor and pulse oximeter placed on patient. EKG time: (06:16 01/29/2020). EKG was performed by a nurse and shown to the ED physician. Patient gowned. Reassurance given. Patient identifiers checked. Call light placed in reach. Bed placed in lowest position. Brakes of bed on. --06:35 01/29/20 Glenys Sullivan R.N. 3 Clinical Report - Nurses [facility] Emergency Department [address] [place] [address] Phone #: ext- [phone] 01/29/2020 06:00 Patient: [...] status is 4 Clinical Report - Nurses [facility] Emergency Department [address] [place] [address] Phone #: ext- [phone] 01/29/2020 06:00 Patient: [...] ( pt now to be transferred to [facility]). --10:01/29/20 Wesley Childers RN 11:11 01/29/2020 Keppra IVPB via IV site #1 Discontinued: infused. Total amount infused: 100 mL. IV patency established. IV site checked: no pain, redness, or swelling. IV flushed thoroughly. --11:11 01/29/20 Wesley Childers RN 11:19 01/29/20. BP: 138/98. MAP: 111. HR: 106. RR: 16. O2 saturation: 100%. Temp: 97.1 F. Pain level now: 10/24. --11:19 01/29/20 Wesley Childers RN.DISPOSITION / DISCHARGE Transferred to [facility]. Visit overview and summary of care [...] (Melisa Park RN). --11:01/29/20 Wesley Childers RN 11:19 01/29/20. BP: 138/98. MAP: 111. HR: 106. RR: 16. O2 saturation: 100%. Temp: 97.1 F. Pain level now: 10/24. --11:20 01/29/20 Wesley Childers RN ( pt remains awake and alert, continues to voice abdominal pain along with a headache, EMS is loading her onto the stretcher). --11:56 01/29/20 Wesley Childers RN 11:55 01/29/20. BP: 136/98. MAP: 110. HR: 111. RR: 18. O2 saturation: 98%. Temp: 97.1 F. Pain level now: 10/24. --11:56 01/29/20 Wesley Childers RN 5 Clinical Report - Nurses [facility] Emergency Department [address] [place] [address] Phone #: ext- [phone] 01/29/2020 06:00 Patient: NERY WAN Sex: F : 1990 Age: 29y De parture time: 11:59 01/29/2020. --11:59 01/29/20 Wesley Childers RN.Locked/Released at 01/29/2020 11:59 by Wesley Childers RN Name Value Range Interpretation Code Description Data Corrie rce(s) Supporting Document(s) ID Date Data Source [id number] 01/29/2020 06:03:00 AM EDT [facility] 1 Clinical Report - Physicians/Mid Levels [facility] Emergency Department [address] [place] [address] Phone #: ext- [phone] 01/29/2020 06:00 Patient: [...] pt was admitted 4 weeks ago in [place] and 2 weeks ago in [place], and had multiple scans and EEG, to find out it's stress related; pt arguing w neighbors lately; pt was just released from [facility] SENIOR CONSTRUCTION ESTIMATOR, went home for about 1 hour then asked her fianc?e to be brought here, not feeling well, and she began shaking in car, in route. Similar symptoms previously. Patient has had similar symptoms many times, chronically. Recent medical care: The patient was seen recently at another facility in the emergency department. ( [facility] last evening).REVIEW OF SYSTEMSNo fever, chest pain, [...] lymphoma. 2 Clinical Report - Physicians/Mid Levels [facility] Emergency Department [address] [place] [address] Phone #: ext- [phone] 01/29/2020 06:00 Patient: [...] normal. 3 Clinical Report - Physicians/Mid Levels [facility] Emergency Department [address] [place] [address] Phone #: ext- [phone] 01/29/2020 06:00 Patient: [...] 5.0) 4 Clinical Report - Physicians/Mid Levels [facility] Emergency Department [address] [place] [address] Phone #: ext- [phone] 01/29/2020 06:00 Patient: [...] mL/min Normal PT/PTT: (HUSSEIN: 01/29/2020 06:17) ( MigRcvd 01/29/2020 06:49) Final results Test Result Flag Units (Reference) PROTIME 13.3 SECONDS (11.0 - 15.5) INR 1.00 (0.93 - 1.23) PTT 29.0 SECONDS (24.8 - 36.7) \\BLDo\\INR INTERPRETATION\\BLDx\\ Therapeutic range for Coumadin and related oral anticoagulants. -International Normalized Ratio (INR): 2.0 - 3.0 for Venous Thrombosis, Pulmonary Embolus, Tissue heart valves, Acute CT Atrial Fibrillation, Valvular heart disease and recurrent Systemic Embolism. -International Normalized Ratio (INR): 2.5 - 3.5 for Mechanical Prosthetic valve. Troponin-T: (HUSSEIN: 01/29/2020 06:17) ( MigRcvd 01/29/2020 06:47) Final results Test Result Flag Units (Reference) TROPONIN T <0.01 NG/ML (0.00 - 0.10) TROPONIN T0.1 ng/ml Recommended as the clinical threshold value forTroponin T. Magnesium: (HUSSEIN: 01/29/2020 06:17) ( [facility] [place] 01/29/[place] 06:46) Final results Test Result Flag Units (Reference) MAGNESIUM 1.9 MG/DL (1.7 - 2.2) Chest Portable 1 View: (HUSSEIN: 01/29/2020 06:12) ( MigRcvd 01/29/2020 06:31) In Progress CHEST PORTABLE Reason(s): seizure TRANSPORTATION: P IV? O2? Oxygen?(No) Room: ED. 5 Clinical Report - Physicians/Mid Levels [facility] Emergency Department [address] [place] [address] Phone #: ext- [phone] 01/29/2020 06:00 [id number] Sex: F : 1990 Age: 29yPROGRESS AND [...] and hospitalized. ( Has been hospitalized in [place] 4 weeks ago and [facility] 2 weeks ago and has had multiple scans and EEGs. Just seen and released from [facility] ED 1 hour before arriving here at [facility]REVIEW OF SYSTEMSNo fever, chest pain, palpitations, cough or difficulty breathing. No eye irritation, sore throat, diarrhea,black stools or difficulty with urination. No vomiting or bloody stools. The patient has had abdominal painand nausea. 6 Clinical Report - Physicians/Mid Levels [facility] Emergency Department [address] [place] [address] Phone #: ext- [phone] 01/29/2020 06:00 Patient: [...] RR: 12. O2 saturation: 100%. Temp: 98.6 Monika Cat reviewed and appear to be correct. Blood [...] the 7 Clinical Report - Physicians/Mid Levels [facility] Emergency Department [address] [place] [address] Phone #: ext- [phone] 01/29/2020 06:00 Patient: [...] Not IndicateDrug Screen-Urine: (HUSSEIN: 01/29/2020 08:00) ( [facility] [place] 01/29/2020 08:51) Final results Test Result Flag [...] PRESUMPTIVE POSITIVE CONFIRMATION [facility] A[facility] PEL W/O Oral W/O IV Contrast: (HUSSEIN: 01/29/2020 06:54) ( MigRcvd 01/29/2020 07:22) InProgressCT ABDReason(s): periumbilical pain w vomitingTRANSPORTATION: S IV? IV?(Yes) O2? Oxygen?(No) RoCT Abd PEL W/ IV Contrast Only: (HUSSEIN: 01/29/2020 06:41) ( MsgRcvd 01/29/2020 06:54) CanceledReason(s): periumbilical pain w vomitingReason(s): periumbilical pain w vomitingTRANSPORTATION: S IV? IV?(Yes) O2? Oxygen?(No) RoCBC w Diff: (HUSSEIN: 01/29/2020 06:17) ( [facility] [place] 01/29/[place] 06:50) Final results 8 Clinical Report - Physicians/Mid Levels [facility] Emergency Department [address] [place] [address] Phone #: ext- [phone] 01/29/2020 06:00 Patient: [...] Male GFR Interprentation 20-49 yrs >60 mL/min Htsdfa74-61 yrs >56 mL/min Normal 60-69 yrs >49 mL/min Normal 70-79yrs>42 mL/min Normal 80 and above >35 mL/min Normal Female GFRInterpretation 20-39 yrs >60 mL/min Normal 40-49 yrs >58 mL/min 9 Clinical Report - Physicians/Mid Levels [facility] Emergency Department [address] [place] [address] Phone #: ext- [phone] 01/29/2020 06:00 [id number] Sex: F : 1990 Age: 29y Normal 50-59 yrs >51 mL/min Normal 60-69 yrs >45 mL/min Normal 70- 79 yrs >39 mL/min Normal 80 and above >32 mL/min Normal PT/PTT: (HUSSEIN: 01/29/2020 06:17) ( [facility] [place] 01/29/2020 06:49) Final results Test Result Flag Units (Reference) PROTIME 13.3 SECONDS (11.0 - 15.5) INR 1.00 (0.93 - 1.23) PTT 29.0 SECONDS (24.8 - 36.7) \\BLDo\\INR INTERPRETATION\\BLDx\\ Therapeutic range for Coumadin and related oral anticoagulants. -International Normalized Ratio (INR): 2.0 - 3.0 for Venous Thrombosis, Pulmonary Embolus, Tissue heart valves, Acute CT Atrial Fibrillation, Valvular heart disease and recurrent Systemic Embolism. -International Normalized Ratio (INR): 2.5 - 3.5 for Mechanical Prosthetic valve. Troponin-T: (HUSSEIN: 01/29/2020 06:17) ( MigRcvd 01/29/2020 06:47) Final results Test Result Flag Units (Reference) TROPONIN T <0.01 NG/ML (0.00 - 0.10) TROPONIN T0.1 ng/ml Recommended as the clinical threshold value forTroponin T. Magnesium: (HUSSEIN: 01/29/2020 06:17) ( MsgRcvd 01/29/2020 06:46) Final results Test Result Flag Units (Reference) MAGNESIUM 1.9 MG/DL (1.7 - 2.2) Beta-HCG, Qual Serum: (HUSSEIN: 01/29/2020 06:17) ( MsgRcvd 01/29/2020 07:41) Final results Test Result Flag Units (Reference) HCG SERUM QUAL NEGATIVE (NORMAL: NEGAT HCG SERUM QL REENTER NEGATIVE (NORMAL: NEGAT { KIT LOT # [id number] ){ KIT EXP DATE 01.20.21 ){ PROCEDURAL [...] unremarkable. 10 Clinical Report - Physicians/Mid Levels [facility] Emergency Department [address] [place] [address] Phone #: ext- [phone] 01/29/2020 06:00 Patient: NERY WAN Sex: F : 1990 Age: 29y Labs are unremarkable. Pt. wants to be transferred to [facility], but she has apparently been evaluated and discharged from there recently. I will speak to Neurology at [facility] and get their opinion. 11:16 Jan 29 2020. Pt. was accepted for transfer to [place] [facility] by Dr. Cronin at 10:45AM. Pt. [...] to transfer explained to patient. Transferred to [facility]. Summary of care (CCDA) provided to transport team, EMS, patient, family and transfer facility via paper and digital media. 10:45 Jan 29 2020 Transfer to [facility] by ambulance as per Dr. Cronin [...] rce(s) Supporting Document(s) ID Date Data Source [id number] 01/29/2020 06:59:00 [place] [address] RESPIRATORY CARE REPORT ==== ---------NAME------- NUMBER SEX AGE ADMIT DISC. XRAY# F/C TYPEABBAGRACE Wisdom [id number] F 29 01/29/20 01/29/20 [id number] XBE E/R DATE OF : 1990 M/R# [id number] #: [id number] TR-07 LOCATION: EKG [id number] COMPLETE:01/29/20 0 8:16 [facility] [id number] PHYSICIAN: WEI BRISCOE Name Value Range Interpretation Code Description Data Corrie rce(s) Supporting Document(s) ID Date Data Source [id number] 01/29/2020 08:51:00 AM EDT [facility] Name Value Range Interpretation Code Description Data [facility](s) Supporting Document(s) DRUG SCREEN URINE [facility] URINE DRUG SCREEN Amphetamine [Presence] in Urine by Screen method NEGATIVE NORMAL: N EGATIVE [facility] BARBITURATES NEGATIVE NORMAL: NEGATIVE [facility] BENZO NEGATIVE NORMAL: NEGATIVE [facility] COCAINE NEGATIVE NORMAL: NEGATIVE [facility] Tetrahydrocannabinol [Presence] in Urine NEGATIVE NORMAL: NEGATIVE [facility] OPIATES NEGATIVE NORMAL: NEGATIVE [facility] Phencyclidine [Presence] in Urine by Screen method NEGATIVE NOR MAL: NEGATIVE [facility] \\BLDo\\URINE DRUG SCR EEN INTERPRETATION\\BLDx\\ THE CUTOFFF LEVELS FOR DETECTION ARE FOLLOWS: AMPHETAMINES 1000 ng/ml BARBITUARATES 200 ng/ml BENZODIAZEPINES 100 ng/ml THC 50 ng/ml PHENCYCLIDINE 25 ng/ml OPIATES 300 ng/ml COCAINE 300 ng/ml ALL POSITIVES ARE CONSIDERED PRESUMPTIVE POSITIVE CONFIRMATION WILL BE PERFORMED AT PHYSICIAN REQUEST. ID Date Data Source [id number] 01/29/2020 08:42:00 AM EDT [facility] Name Value Range Interpretation Code Description Data [facility](s) Supporting Document(s) [facility] COL[facility] yellow NORMAL: Yellow [facility] CLARITY clear NORMAL: Clear [facility] Specific gravity of Urine by Test strip 1.005 1.001 - 1.030 [facility] pH 7 5 - 9 [facility] al Glucose [Mass/volume] in Urine by Test strip NORM NORMAL: Negat [facility] Bilirubin.total [Presence] in Urine by Test strip NEG NORMAL: Negative [facility] Ketones [Presence] in Urine by Test strip 5 NORMAL: Negative [facility] Protein [Mass/volume] in Urine by Test strip NEG NORMAL: Negat [facility] Nitrite [Presence] in Urine by Test strip NEG NORMAL: Negative [facility] BLOOD NEG NORMAL: Negative [facility] Leukocyte esterase [Presence] in Urine by Test strip NEG STORMY L: Negative [facility] Urobilinogen [Mass/volume] in Urine by Test strip NOR less sapphire n 1.0 mg/dL [facility] MICROSCOPIC Not Indicate [facility] ID Date Data Source [id number] 01/29/2020 07:41:00 AM EDT [facility] Name Value Range Interpretation Code Description Data Corrie rce(s) Supporting Document(s) HCG SERUM QUAL NEGATIVE NORMAL: NEGATIVE [facility] HCG SERUM QL REENTER NEGATIVE NORMAL: NEGATIVE [facility] { [facility] LOT # [id number] ){ KIT EXP DATE 01.20.21 ){ PROCEDURAL CONTROL VALID ) ID Date Data Source [id number] 01/29/2020 06:50:00 AM EDT [facility] Name Value Range Interpretation Code Description Data Corrie rce(s) Supporting Document(s) CBC W/AUTOMATED DIFF [facility] COMPLETE BLOOD COUNT Leukocytes [#/volume] in Blood by Automated count 6.7 10^3/uL 4.2 - 1 1.0 [facility] Erythrocytes [#/volume] in Blood by Automated count 4.35 10^6/uL 4. 20 - 5.40 [facility] Hemoglobin [Mass/volume] in Blood 11.8 g/dL 12.0 - 16.0 L [facility] Hematocrit [Volume Fraction] of Blood by Automated count 36.4 % 3 7.0 - 47.0 L [facility] Erythrocyte mean corpuscular volume [Entitic volume] by Auto mated count 83.7 fL 81.0 - 101 [facility] Erythrocyte mean corpuscular hemoglobin [Entitic mass] by Automated count 27.1 pg 27.0 - 34.0 [facility] Erythrocyte mean corpuscular hemoglobin concentration [Mass/volume] by Automated count 32.4 g/dL 31.0 - 36.0 [facility] Erythrocyte distribution width [Ratio] by Automated count 13.9 % 11.5 - 14.5 [facility] Platelets [#/volume] in Blood by Automated count 189 10^3/uL 150 - 45 0 [facility] Platelet mean volume [Entitic volume] in Blood by Automated count 9.6 fL 7.4 - 10.4 [facility] Neutrophils/100 leukocytes in Blood by Automated count 78.6 % 37. 0 - 80.0 [facility] Lymphocytes/100 leukocytes in Blood by Manual count 14.9 % 25.0 - 40.0 L [facility] Monocytes/100 leukocytes in Blood by Automated count 5.7 % 3.0 - 8.0 [facility] Eosinophils/100 leukocytes in Blood by Automated count 0.3 % 0.0 - 7.0 [facility] Basophils/100 leukocytes in Blood by Automated count 0.3 % 0.0 - 2.5 [facility] %IG 0.2 % 0.0 - 0.0 H [facility] %NRBC 0.0 % 0.0 - 0.0 [facility] al Neutrophils [#/volume] in Blood by Automated count 5.23 10^3/uL 2.00 - 6.90 [facility] Lymphocytes [#/volume] in Blood by Automated count 0.99 10^3/uL 0.60 - 3.40 [facility] Monocytes [#/volume] in Blood by Automated count 0.38 10^3/uL 0.00 - 0.90 [facility] Eosinophils [#/volume] in Blood by Automated count 0.02 10^3/uL 0.00 - 0.70 [facility] Basophils [#/volume] in Blood by Automated count 0.02 10^3/uL 0.00 - 0.20 [facility] #IG 0.01 10^3/uL 0.00 - 0.10 [facility] ospital #NRBC 0.00 10^3/uL 0.00 - 0.00 [facility] MANUAL DIFF NOT INDICATED [facility] RBC MORPH NOT INDICATED [facility] ID Date Data Source [id number] 01/29/2020 06:49:00 AM EDT [facility] Name Value Range Interpretation Code Description Data Corrie rce(s) Supporting Document(s) Prothrombin time (PT) 13.3 SECONDS 11.0 - 15.5 [facility] INR in Platelet poor plasma by Coagulation assay 1.00 0.93 - 1. 23 [facility] aPTT in Blood by Coagulation assay 29.0 SECONDS 24.8 - 36.7 [facility] \\BLDo\\INR INTERPRETATION\\BLDx\\ Therapeutic range for Coumadin and related oral anticoagulants. - International Normalized Ratio (INR): 2.0 - 3.0 for Venous Thrombosis, Pulmonary Embolus, Tissue heart valves, Acute CT Atrial Fibrillation, Valvular heart disease and recurrent Systemic Embolism. - International Normalized Ratio (INR): 2.5 - 3.5 for Mechanical Prosthetic valve. ID Date Data Source [id number] 01/29/2020 06:47:00 AM EDT [facility] Name Value Range Interpretation Code Description Data Corrie rce(s) Supporting Document(s) COMPREHENSIVE METABOLIC PANEL [facility] COMPREHENSIVE METABOLIC PANEL Sodium [Moles/volume] in Serum or Plasma 140 mEq/L 134 - 153 [facility] Potassium [Moles/volume] in Serum or Plasma 4.0 mEq/L 3.6 - 5.0 [facility] Chloride [Moles/volume] in Serum or Plasma 107 mEq/L 98 - 107 [facility] Carbon dioxide, total [Moles/volume] in Serum or Plasma 24 MEQ/L 22 - 30 [facility] Glucose [Mass/volume] in Serum or Plasma 112 MG/DL 65 - 110 H [facility] BUN 8 MG/DL 7 - 21 [facility] Creatinine [Mass/volume] in Serum or Plasma 0.6 MG/DL 0.7 - 1.5 L [facility] BUN/CREAT 13 8 - 27 [facility] al Protein [Mass/volume] in Serum or Plasma 6.6 G/DL 6.3 - 8.2 [facility] Albumin [Mass/volume] in Serum or Plasma 4.5 G/DL 3.9 - 5.0 [facility] Globulin [Mass/volume] in Serum by calculation 2.1 GM/DL 2.4 - 3.2 L [facility] A/G RATIO 2.1 0.8 - 2.0 H [facility] Calcium [Mass/volume] in Serum or Plasma 9.1 MG/DL 8.4 - 10.2 [facility] Bilirubin.total [Mass/volume] in Serum or Plasma <0.7 MG/DL 0.2 - 1.3 [facility] Alkaline phosphatase [Enzymatic activity/volume] in Serum or Plasma 57 U/L 38 - 126 [facility] Aspartate aminotransferase [Enzymatic activity/volume] in Serum or Plasma 12 U/L 5 - 40 [facility] Alanine aminotransferase [Enzymatic activity/volume] in Seru m or Plasma 9 U/L 7 - 56 [facility] Anion gap 3 in Serum or Plasma 9.0 mmol/L 8.0 - 16.0 [facility] AGE 29 yrs [facility] NON-AA GFR >60 mL/min [facility] AFR AMER GFR >60 mL/min [facility] Male GFR In terprentation 20-49 [...] >32 mL/min Normal ID Date Data Source [id number] 01/29/2020 06:47:00 AM EDT [facility] Name Value Range Interpretation Code Description Data Corrie rce(s) Supporting Document(s) TROPONIN T <0.01 NG/ML 0.00 - 0.10 [facility]ital TROPONIN T0.1 ng/ml Recommended as the c linical threshold value forTroponin T. ID Date Data Source [id number] 01/29/2020 06:46:00 AM EDT [facility] Name Value Range Interpretation Code Description Data Corrie rce(s) Supporting Document(s) Magnesium [Mass/volume] in Serum or Plasma 1.9 MG/DL 1.7 - 2.2 [facility] ID Date Data Source [id number] 01/28/2020 07:27:58 PM EDT [facility] Name Value Range Interpretation Code Description Data Corrie rce(s) Supporting Document(s) Progress Note [facility] CFJHFx3zHcRGMsLj22/ZEWtmDOHsy0PrKOotXNw7UVbtXAQqO6ReYFU1kN8xYEU3LCfYHpLmGhYdTDVj lbm [file] RBv38tU/3/Cap Inspector+xcs+U4a0cNar+LVeylQeB2g9hGyCfJQl2yl6ZvjqGNiEiKZR73/r/6lY3Aj5ffhcfdS [file] RipRCZ6RSaLZLX/MAP/T+care worker+5//TkBeTXP2B01gBos [file] [id number] ID Date Data Source FREE T4 & TSH PANEL 01/21/2020 07:39:50 AM EDT eCW1 ([facility]) Name Value Range Interpretation Code Description Data Corrie rce(s) Supporting Document(s) 2.200 THYROID STIMULATING HORMONE [facility]C [facility] 1.01 FREE T4 eCW1 ([facility]) ID Date Data Source [id number] 01/18/2020 08:29:15 AM EDT [facility] Name Value Range Interpretation Code Description Data Corrie rce(s) Supporting Document(s) Progress Note [facility] CUUJAz4nReCNLrAj40/QLAsbUZDgn6FoEMotHZs3YUrsBHAxI7PqLOS1uA2kKOD5ISeBLiLuLwBlPPKo lbm [file] SFP5UNkhPYO8SJGwVaTwFV0ZIp7SFgR2IDQ4vXVzSe5AJQfiQdSOMgNoSR3EMYq= ID Date Data Source [id number] 01/18/2020 08:29:10 AM EDT [facility] Name Value Range Interpretation Code Description Data Corrie rce(s) Supporting Document(s) Progress Note [facility] ETRRFl8yVhGNWvXo97/QSYtsYBXij7ZnXFgxWOb3RGlzTZWuF5YeKUM8bY6zGMY7IBpKOmKeKuBoEQXe lbm HeCivXJmPcDGTySjyLZjNlEIiiUygwxUHhGS1UhFT5YLUbH60oTHMuXSCgR2FeKQY0WZR+Hz8BFKJggE PpVQ0CTunU3N6nc7lDAK4r5D1vPSS4s52imaq2feW7N9mrjWrLThBBDH7iGvmWBuTzzz8f87eMy0Bfv4 J/5XSUlkX7m9F7nHK4rweYpZyCrONrg6Eh2EyYDwe/ qz+DSIqrO/ZoF7q6NSyise1/WJRTY0UPfhW4GVmJwy320ZTgwe2pbTDOb+un06dRkdh9DtmBl/Gr/cvL kFr5BU3LO9rmdSe+klo0FNKmdOlhxEzdMwA5QqDR6q0gqMlqf/HW00A4xgnHyZ2cj7yXrXBWJhEFvXsk HxBg15WVA46G7fMghI69MAVBJUlD7IAN5Y6zpGxVEK mXu6BTFKFQZy9wOYYmD8K0SAcPMekkfbb0bqOjxZRVZtGwpLnzLDK732sS3fpTuXcq7teDKLhoJ0iSjw f4Hdp02SvLUCeKqbO9hOOdBHtuY5eu3vDyyXoeD/aGyW/ygKMeLLxSmE06IAJtf0up/TBcM/Pm/MAcMw h2VmnZe5g0y6IRFzYaF5CBdielWAgfeWIX++PxIlka YPJEuqIZNt6e/AHTX4AytQ0Et2T5RpQ7r+n4RhyJ/ftUOMZx+YQU603TREeFyy4vpmCSiwnqvCnXPEa3 aWmSHq51otN29gX9yfiObmUtN10XfXTnJ8V2xFcleTfPDrxKojm9rqMgEJ2/Jp3gGQqk+Nrb+gkng0IH bDV7vrefdj5IaTU7T3vZ84tGvQMBDGQ6tBG7v69Pmv v8c5vOioc50TnLFRXaHFhV+PtWKLYL+d5IPMhgJ3X3AhX7WJSd5rj8SM+aT1sJ0awSi3hsG48i03PyEj ESmqb3n4IP0zKSCLqQ4HfBHHD2H+Y1FLhW01Mu8+WIk7u4qmiKuDtzbavCIEAveb9HU7N+ItpzLLH/LK pMvdWOIn16Tf8WdwOYugl12KGNVcX5gGmNvER6Mr6j vAZLG7IuQwTi3jyx8RS3uA0F0RzUPCC7VhkX5Vml7TDl0R9ssLaFDb8ndfDHXiTXMdvnpbxdd6uyNvix /zoOlzq4SdEM0P1Yp5R47d0wsXmfuoEmfjpHWuZVE0ZncX9ckICuhbRBhO8QFIXf8T9QcNU5pOuuvUTk EPHqObtCozmxQBFrHsI7lXb4dwefdyhuREHGgRWfeN zxT8z2DuN9vbLOCVBL4i1KHrotd8ZaZ2kbzOI/aG5GJ7sin6Dkx1/jJ9U7Kk2pZ5Eq+Nn617avz9wMAB porwuiB5+BZSv9BegOiwH6FiU3mhnYlym39qM94jzz/7CsS/care worker/5fXB01JP8K3j2QZkK1jJ3X3Ziy5tQ BiWKDTfrWxiB4fhj+QvvqeKAb0kG4vnIB2o/C2teuo gOAwn3Nn2fgIxrF0oiKXM7D4KCp8wyvBdQ+FQRL0Yfg1h7kxuTIXg3baXflYEgXYkmzNs4HdJ4aXzyt+ TO2VtUTo4v1R9V7gE/+hKgrmq2qGQhmqEQfa1LlG/7hkNX1fU1R9O60kF5FoR7uAX/dcivxeSfrzE8Lo /2yU/8dskU4yxwTfNy6sLOlWQ32a7cg+pEw0vISpFz [facility]4+uUVjKoZt+aw2xDw/u9W7MjNF+8ije9emQv5sS9hjXDvqVLGLLY0uECWbTNXMXnbJCxyz2GkR+7 [file] uM5gx16RM27ifRp20mqn1hsu6e8pIe9NpeZx1mWp7QQ/GO6efotdS5/XvR/tCBwrUMpG+Meléndez+Azym7HG [file] AgICAgICAgICAgICAgICAgICAgICAgICAgICAgICAgICAgICAgICAgICAgICAgICAgICAgICAgICAgIC AgICAgICAgICAgICAgICAgICAgICANCiAgICAgICAg ICAgICAgICAgICAgICAgICAgICAgICAgICAgICAgICAgICAgICAgICAgICAgICAgICAgICAgICAgICAg ICAgICAgICAgICAgICAgICAgICAgICAgICAgICAgICANCiAgICAgICAgICAgICAgICAgICAgICAgICAg ICAgICAgICAgICAgICAgICAgICAgICAgICAgICAgIC AgICAgICAgICAgICAgICAgICAgICAgICAgICAgICAgICAgICAgICAgICANCiAgICAgICAgICAgICAgIC AgICAgICAgICAgICAgICAgICAgICAgICAgICAgICAgICAgICAgICAgICAgICAgICAgICAgICAgICAgIC AgICAgICAgICAgICAgICAgICAgICAgICANCiAgICAg ICAgICAgICAgICAgICAgICAgICAgICAgICAgICAgICAgICAgICAgICAgICAgICAgICAgICAgICAgICAg ICAgICAgICAgICAgICAgICAgICAgICAgICAgICAgICAgICANCiAgICAgICAgICAgICAgICAgICAgICAg ICAgICAgICAgICAgICAgICAgICAgICAgICAgICAgIC AgICAgICAgICAgICAgICAgICAgICAgICAgICAgICAgICAgICAgICAgICAgICANCiAgICAgICAgICAgIC AgICAgICAgICAgICAgICAgICAgICAgICAgICAgICAgICAgICAgICAgICAgICAgICAgICAgICAgICAgIC AgICAgICAgICAgICAgICAgICAgICAgICAgICANCiAg ICAgICAgICAgICAgICAgICAgICAgICAgICAgICAgICAgICAgICAgICAgICAgICAgICAgICAgICAgICAg ICAgICAgICAgICAgICAgICAgICAgICAgICAgICAgICAgICAgICANCiAgICAgICAgICAgICAgICAgICAg ICAgICAgICAgICAgICAgICAgICAgICAgICAgICAgIC AgICAgICAgICAgICAgICAgICAgICAgICAgICAgICAgICAgICAgICAgICAgICAgICANCiAgICAgICAgIC AgICAgICAgICAgICAgICAgICAgICAgICAgICAgICAgICAgICAgICAgICAgICAgICAgICAgICAgICAgIC AgICAgICAgICAgICAgICAgICAgICAgICAgICAgICAN Cjw/lIYvZ2acgIHpvkB4B0pmCi3MCo2MRN5uo0LwQXRsUGjyxmSmMidEZkEwWHXuZuzYCjv8RUulOQ3Y xNClH7EiH8VzSSbyWX2LLTYzEQEeiFIbXNBmRNSrPbO7XXZiUAdhST9AqNYeQPqkSXMyPTXzNqOgNDVq OSAwIFIgMTEgMCBSIDEzIDAgUiAxNSAwIFIgMTcgMC PXXL5MDtYhM8DnmQ77WCzLQj8+BCjsslIbRdtBAnX4JVEvd1NrEUc8WR8PLCHkBztic5GeMeBaPRPUZB kwQD1MIGX0MTI0TEXzKy6TSFQlY531ipKmXC7FYn3YKnEpZR3hby3BNiXaWXLxUzeUAvf3URdbUB3SeT KcNFuIks0fgrCuezCPl0GocvAeeORCIAVfUDO3vc2z wncuOHKoWLMmHN3mKU5wCYHtZAH7HaPnLPJERV0JKXRjRXHgfXPmLXMqNMARHP9SGQadZHQ0ZVNtplZz jEIxCEdpRU2VWGCtdbVfYcUzDCHNCAo+Nc1JHW1zt6IgUBcnAxQtRO3ueq8BSXrPCfIoR4I3qLBpL6F8 CUhpRw0UWGQbMAYsQpKnQNLDBObeWP9GXQ8ncgB1QL 8TaSVtBIDiTYTbqHTvAOr5X52oqSXbIPsgZZ7BAKY+Sadie+Uo6SQSYmJROoYNPqMlKtKBPPZqGmT3SeQ6 ZLv4PoL9CaOA02hPeukjEeJJtgFF1RXY0wXZVuJYEUBN6JuVXayA3kypYjSLBaGUXDGlCyG06keEOrYD RbXUCeLLLnJb1XKIVsA6WirbEgjTceunMsSUZeCMKC UZ1ROZbkcaCkdKEalBkjVE60ySxhGQ5USg4RCjPwCX5ych7NfUBsGx7BZENnVj0IIMRuFSZrPJDvSTJ7 OXGdZaWtPTdrIAQoOXRfVTU6TTOmJCDtCT5JHsJeSZJcYfF1WAQhXCYmQKCytw7DZQFvESNrTMFbTNMy RNIjLYMlMPzpOUNgVFLzCLD2WFExOGRgJX5JMaXaXR MpBSJ9ZJVrRWBuPDMsoq7BUUWeHVSzFph3ReJnZNFgKJQkIHlbDTQhAFS2NYG9YEQdRXTgVD4HQiCfBM BuPDlsQnZsQGJyCYUknx5RXIYzWKEjDAZxXKTfKGRlTBDzWGauIEHhNEFhNiF8HYLbTNUrCE1YHwAtEQ RcZQZ4EKTnIAMeXKTjgu9BSCNbVSNhBry3FBNgNNCt WEKxTIvsSDNxVAZ3FJD5DUQnJDBlUG7JHfFdNURlENR7VcTsCIHjSNWjxw8THXYcWEUtRMBgKPOnRGKa XZZeNVrnUBAbBYZ2FmCcEZNcFDSqWU7DFeKhJVLsZIi1EKokRMUpNZCjdi9VCVWpSUMdUZUfXEEnYELw WIRdMOnsBBOeSDQoQCG8NXHmCXHaRM4HOzIvCFDeVm XsPuRnMPKxJDFveu1FLHRwKDVpCLN2FYYbBWNzRCSlKCyaQRRzDIVjZIS4KBPmQOWrRS9TWiDoWHGsXk W2LIPuSXQdSFXavt8SZHMhXSQsEcn7WSAyKYEcUGSbFIvcYAYiAQO2RiJ0YATiYWMrXM9QKiBmUWKlGa B9VTbvMWTzDDQhjl0WLJOgMEDcJGw1PSRfVTHlZOQj HMzdZMLjRBV4VKJ0ASBkIGLyEZ0CLlSdYLPyPvPnCCFiMJZxBEGavc2FVKEyBNVlPgU1MYYkLFJlSGEp WCmuXVXfGUN9Xhh0LKUtOORuSW7IZkInQLVdPrA6HkZkULYiMVCekf3YHSOjKMWnQle4ILAwJOOsJBBs TDkhFKFlSDM9YpS9UNNcNUHzFP9JDfThLJHjYkg0Ax GvRAYqMAJyvf4ZITRsCPKhLRY5SpEqBYZuTIZxUUf1bnHbdVIeJUc1WL8XD1FxgmFcIgoTTq1Zm929BC B5HUFdNp5ON3wwFd2yZNOdETTJZu4CWBn0AkK2FeanFWRhEGhyVtD7UOEkDDK9KiSvJPF0ABL9FgQ+ID h0VPhxL1VrZiIlQZXoUCFkBgS2FxJ9XkL0XOC6HSo7 HU4gXFFKJa0+OVgubREmhAblBVZQIcI3CSRaXSekHCAJXc5Q ID Date Data Source [id number] 01/16/2020 01:09:59 AM EDT [facility] Name Value Range Interpretation Code Description Data Corrie rce(s) Supporting Document(s) ED Provider Note [facility] LUSDBe6aLvGMQoBv29/LQIxeARLwb0EmZOkzNTd4APejVZCwI0EmQRA4aF5tFNN6XGwKScDqVrWiQGFl lbm [file] f65wOSuY78dS7qfEsYi29rju4gG23Vr8CrTW3KXdsikmrk2tpl8OztZ6zx/08k82R25FgQrulkQI+School Based Therapist [file] PPLQLbeOQaZKTIx3PtydAuwZOFMKHbEQkoPWJFlcHz vReyKp3pQINjWQ5qHq1vEBYjONK7KjD4RLTSBG3KWOKiMOPsfKTyNRF2KRTtZiGcMWwcTGMjIxH2XI42 vSdgRO0EFATqRYAmYN97CUUpBRTvRf5KZHOkJGQrlcT7WPQcRFVCFaHlN59teUEfKiRjHQNMPEm+Pg0K WL6qn1ZgRQd8DuAsRK9hic7XPEyPVgMpX5SlqKyaEJ JRJK4dnJCaTHJ9QLrxnAVdEXFuhWVbb5yjirjbMn3nJHMuWY6aIr4fEENyVIY7XeN6IXRVJZ8SEAZuXM AzfOYtGLX4HSAfIpUzFZmoUEBrETD7RI74qQarSF9RLIIoSZRaBA07PFNvEVKeCf7TKRPhWOVgwvX3IZ AwIFINCj4+FZffmfNcNvaZTkSvDYZoh1YrOLt3EL9S PNAzBGfoMU5DTEPwrK9nSRlxAG0GOfC5YYLtPFJTVqRhK24oeVInBEl6U0JzVfKoOMRhJtbjMAArDHuo TmFtZXMgWyBdDQogID4+ID4+VGyrHT3CHUpvnxWuWSLeUy9DAFDfMQQjVM5pCZBcBPJcJ5R3jBdeRHIN FxDiO7xouyujVS6wGFJxJ141dSinzuJoRWMkIADeMy 6RFJVlUBN4VVJghYOvMSOzQXQIDTnpZU7SxGWrAQS3fX8qEYzaYBCeQVDvE4oTJeWdzCtpCG11xRoyzb VsbCBdDQo+Bb4GYY2te3XyREp0joRiNIixWRA4IPtvHSCaLKFjHXYtSNF0KRT0DDQECvCjPXIyMOUfTR xjGEPmXBBhsb9MMJQpTKE6GQs0WCVvSOPmOVIkNVae RLTiNMaiHbMcLNJeEDZaLM6MMvGaWSTsBAPoBBinMWSlIVEcwz7WOHRqTUEbSdP1DuLzRDZtFWJaROos NCAnHOBdMdNsGBCdHRCtCY9MHmEgVXNrKTE1KgDbDXIxKZCwbw4HYVXtHRGbFlAkMcPsABOgXIGhYJbc BFHnZOY2KVXiBJJsGRDjSI4DDzGgFXAdLEkxTQHnOY IvGHUwbd8DWZKxJSShKtV7JbQpPEWsRTLoNEfzIAHfQTBfCPY2QWApUQWoOH2ZVfFjAKDiNTC8FScuXE IxVNAwcu6CZSPpKGGjDVdpQZBvUSGvSFQqLGeaSRLjPGX2EjPhQGGnKRKhDN1TEzEgGMWvSSp4OwppAL MxBLSuyj2AXAZfURIoAUstXEGxODWyNDZcRXejUSJc FHFnNXL9WTRhVHIxTE8VOyFeSELrXmRsXWNaAFRrDZEscq1YTJYjMGIiPgW9OpQwXSXpMJDyKLsrEUAm ZMF3IRRoNHGrINLuWT7AEsSaLKXtLiSaQLrkASDpFCVkly0NYOHhTASpLVd5UoOqTIBjDVItXGmcTMCj HNU3MTa5KXNgRQMyMS1TVwAzZMSnLni3UVsfAPSeLW Lkih4QLBKsRSFjQNK1DMHdXOAxRJUzYWqjYHTfAKRaWuZ5DYDsDFTtUF5ZDuTbJKSmNSC9ClBgIWHaIY Ahih9NUEVtEML9IwS9CSUjXOAaKRRnCRpnLVVaGLNgMKE6SGYaJNDqDF1DGcIjBNCgEET7WcwbYFHySK Fhgk2YBYAiFHN2CYLjTMVdAGAjVOIzWFyfRAPxQDU3 XLF4EFKoEFIyKI8BFiOrUFHsSQK3DoRuJQKwSKXojg5CTKSkWTT8VDh0XIGlGJFsGHYiRVmsBEXvMHK1 WAH1MJUkOHQeKP3PYkPlTNIeWxP7RpAiXWUfQYBzxm1TJWReJKI2YzC5DiTfKPFiNBJkZSrtRGZjCNB5 SErkZPUiETYyCN8CQyElGIDkHwleFiHoPGMnESWmjn 8HAGLwKGD7RxJ8NZEsDNDqESKcUXupMRLyLRY8DHC4XZYcRZDiZK5YDlYfDDGwAmifHFTlDUBbQVFvud 4SZNWiSQR8ORO7DtXyWRQtWYAoGZhwLOZsUGi6YYN7CKJkYCKiUI8OCnLoSUZxUEGaNbIcFPMmTORxzc 4EIXEtTPS5LCD3ZkWtYXJcVFDgTHrvTAUvYPgvDgtr MQIrCFRtUN6ZTuHqFGJpDBA7BdujUQJjNGLhcr4CRMEkBIM6LXF4KBQzTSCkCCRgHJpyFDCnYGzmPwxq QWRpRCLlAC7BImEcWBLsTUA5TgChQMDkCPGuxj1AFNCcCME5ItNeMcEwCZKzYRYeHLmbFAOtMQvrOuL9 HNWuARXjFB5DJsVeBUKhFKZ5OYepAQFfIOCsam7ILX OuOUX2QuJ7ZXMmIERtOYWcVUtaHITwGBfsEoS3JYObDIVmDR6BMbRwKEViGIB0WMAiTGDkILZgtd8HZU EyBPS2AGBlXFNrPEVpKLGhVXoeMSAmBXz7JsN7GIRmFAOpAW3FWoIrBAOdYDL7OEXsJREmZNFuwr6HBR XbKMP2YBC5FMIxQMScZVNpUWdlGEZkHUs1IEL1PWIt GNLpLC1ZMuJoKDieBXFFAkz8ORecG5f1JGG3XQ5GE1Cxk1YlOeGfLTTYGMczLJ4gccBgZKMoPl3AG7zX FpugIbL0XCYmAEk6JZU4INpqL7TdH5O6SPo2N8L3IcLfXW0cXSDkGZP7VvBfNtW5PrO1GKYgSXBiKqc8 FBBkCyi9GoD2NtBvQR5UJl0XGdG3GTF3nLHiRc3YCZNkPuKGOvNvOM6HCJk= ID Date Data Source [id number] 01/14/2020 08:03:12 PM EDT [facility] Name Value Range Interpretation Code Description Data Corrie rce(s) Supporting Document(s) Discharge Summary [facility] VRZTFo3gUdVAAsHh89/ZPUazRJAds1SvVGnnBAf8ZOsjMMLvY4VeELG4gP8zPRG6RVlDErVePeIkEXT3 lbm [file] VrcBdHxUWdSAv0Sv/clinical engineering director/NhpLOt+ITE837FWUlueLb [file] ICAgICAgICAgICAgICAgICAgICAgICAgICAgICAgICAgICAgICAgICAgICAgICAgICAgICAgICAgICAg ICAgICAgICAgICAgICAgICAgICAgICAgICANCiAgICAgICAgICAgICAgICAgICAgICAgICAgICAgICAg ICAgICAgICAgICAgICAgICAgICAgICAgICAgICAgIC AgICAgICAgICAgICAgICAgICAgICAgICAgICAgICAgICAgICANCiAgICAgICAgICAgICAgICAgICAgIC AgICAgICAgICAgICAgICAgICAgICAgICAgICAgICAgICAgICAgICAgICAgICAgICAgICAgICAgICAgIC AgICAgICAgICAgICAgICAgICANCiAgICAgICAgICAg ICAgICAgICAgICAgICAgICAgICAgICAgICAgICAgICAgICAgICAgICAgICAgICAgICAgICAgICAgICAg ICAgICAgICAgICAgICAgICAgICAgICAgICAgICANCiAgICAgICAgICAgICAgICAgICAgICAgICAgICAg ICAgICAgICAgICAgICAgICAgICAgICAgICAgICAgIC AgICAgICAgICAgICAgICAgICAgICAgICAgICAgICAgICAgICAgICANCiAgICAgICAgICAgICAgICAgIC AgICAgICAgICAgICAgICAgICAgICAgICAgICAgICAgICAgICAgICAgICAgICAgICAgICAgICAgICAgIC AgICAgICAgICAgICAgICAgICAgICANCiAgICAgICAg ICAgICAgICAgICAgICAgICAgICAgICAgICAgICAgICAgICAgICAgICAgICAgICAgICAgICAgICAgICAg ICAgICAgICAgICAgICAgICAgICAgICAgICAgICAgICANCiAgICAgICAgICAgICAgICAgICAgICAgICAg ICAgICAgICAgICAgICAgICAgICAgICAgICAgICAgIC AgICAgICAgICAgICAgICAgICAgICAgICAgICAgICAgICAgICAgICAgICANCiAgICAgICAgICAgICAgIC AgICAgICAgICAgICAgICAgICAgICAgICAgICAgICAgICAgICAgICAgICAgICAgICAgICAgICAgICAgIC AgICAgICAgICAgICAgICAgICAgICAgICANCiAgICAg ICAgICAgICAgICAgICAgICAgICAgICAgICAgICAgICAgICAgICAgICAgICAgICAgICAgICAgICAgICAg ICAgICAgICAgICAgICAgICAgICAgICAgICAgICAgICAgICANCjw/fDScH0dloYIkfvK7T0bkZl1SWf7X MW7ki5IsQNCyRXphzkNuTxfKZyYxGHEsLhfOOlb3SM egAL0ImAQrP7XzE8SyWNosMY2BAYZpTWVvjNWgLCIrSJTfFfV1IUKbCUhxRX5KoYCzYOphBOKvZBJhGp ZhMBAkUOPiVPBdSTGzPWOTBJRoLTLlEbHzWIymUM5Hq3GnmQA6QJl+Iu4NSW1wp9BuUFceOHZfHM8dnc 7KRVmLBtXjN6KhxfO1YLPnKRXsNg0RSXFxOJMyoXPw RZJeYVVDCxZoB4IvgF44DQTSKy2+VCmjhsQgCqrTNqDdMFTjy2SdOVm0KQ6JGCXmUSy0mUNfJOfyE4dk njnaREI3uG4jcnhdGcyhQpdoWOKKs4qiBskwBCBwEZZjJO7nPO4pQWLaDHC2OaZlNKOYMG9MDMTuFLGp lHCoMBMaWOXGDH7SKSkmDRU5YGQmshHquOWmZIbjII 9QYXJlbnQgMzAgMCBSDQo+Sa9TLO0pc1VdCGvjMxQpTN5fmi0QHTaOUvHvK2D0zPXcA9P2CJonTo2KGA AlJAKpMojoXGLXKDcwCS3WMO1hwpU3RN3MuIGaMGDtUIBsaWRfYEf2H75ovMUaQBorFG5LUGI+Sadie+Pg 6WUKSqGZGyGIQgLkVeJRNJSbRhA7DyD1LQr7AzE2Fi SB45qXtuyiCqAXtrHN3LWM5bHRHfXBILOV9AkGLyvC7lltUdKIWgRZMUEsNmP09xlFNpOUDwWZP0BCCk Rf1WBZNqY6CpbvPgqNtyqeEjCSDmSCJXNO9PBEtcpaToxKMchBdcAL26rIokAE2TGo2JQbHlJV5pxt8V aMTmWa0RBPTpXv2ORYRlKRAsWUNoFKS5VAXaXuCmYH nwPHWjITGzRAB9VXWbVWRrBH7ZZmJfRNKlJuZ9XkSoOJCwQWBykv5YXWFeMBLqKqS8GJJlOLLoENDqNS ueEWUtIRJrRHG5XXKwGRNnEI9EDeUoQEHwQSP9RUMtKNInWDZklb8LROHlNJPoFWO0VBRtEKIeRLJdTD haILPqYYQ2VvEyLXGlDHYuRD9BIbVkDAHuREj3PrUw GMNaGPOzbx9FTWSvFUHzJMJ1GvEgTEFvWALtDKnxYTDqXQZwTEn0YLZoLESjZZ1LAdHoTVGtHEL9IgSe FTUiBLZaga6HECTlIVGrDHA3YISuGETkYSZqWKpuHSQnSOR8XDfuSIPsUZUgIC3ZXpBkPGIlKYCsZGMj UBIeNKEpdn9MVDWgEMWsDkH6HlVoERXrETEgTMdrOY GoBQP7DKDjNDJjHDEgJD7FHjXuKWUwQDR0FnJtMYFuHVBpbg6EUERwQCEjPuZ6BZEiOGObNYEwVBwvOJ UoIGS9CAi0MIXoOUHsIV9MXvWeOXVzROfcApPwBJBbHGIbwe9JEEOkAVMxGDVgVHIbJGRdWWZvZPzuGX ZsGGS1EdVoMEZtFJZpJC6CKqGfAABkAOu0HQIcUCAd TBUinp7WEEBnXVDuXPvvZDSnLTFkUUFlVUbeLQVtVRKcTJF3ZEHpEPZeDP4EPqTuEGNzByXsLznaUBEk UEIrlh0EEILmEWSvPEY2StSuXSCaLKWvGFaoOXDaXDAaLbVbYDFqPAHmUA5YZcYrWXAgVsAzQlseOKQf RPGpkv9ZAXErOEPaNrN6AtQcXMSxCIWrHEnyEFOoYL UnWrU5EXOuRSMkPW5SFxPeMVZlVkW3PUXoNYNiEFZzxf6CqCXuhCzcel0PWGaMBm1VzIdoUCEvLZsnGf 7ziFYyTqUxMSSWCx9FluMsKWFsQRURLNqiMUMiRYcxBrT1PJGgMbE2IIYaIuZ9KGN6RDMpQ5F7PhQeLz G0EsB0FEStXeWuQhKrDRI9X6OrABXiHwK8MBA0VdKm QSR3Zxa+PZ9dUNc+Xn8Ln3JajiW8jhDrOXzbPUH4Yw2IBGKUD5RYVp== ID Date Data Source [id number] 01/14/2020 04:27:39 AM EDT [facility] Name Value Range Interpretation Code Description Data Corrie rce(s) Supporting Document(s) Leukocytes [#/volume] in Blood by Automated count 5.4 10*3/uL 4-10 [facility] Erythrocytes [#/volume] in Blood by Automated count 4.39 10*6/uL 4.1- 5.3 [facility] Hemoglobin [Mass/volume] in Blood 12.1 g/dL 11.5-15.5 [facility] Hematocrit [Volume Fraction] of Blood by Automated count 37.4 % 3 6-45 [facility] Erythrocyte mean corpuscular volume [Entitic volume] by Auto mated count 85.2 fL 80-96 [facility] Erythrocyte mean corpuscular hemoglobin [Entitic mass] by Automated count 27.5 pg 27-33 [facility] Erythrocyte mean corpuscular hemoglobin concentration [Mass/volume] by [facility] 32.3 g/dL [facility]0-[facility] width [Ratio] by Automated count 14.9 % 11.5-14.5 H [facility] Platelets [#/volume] in Blood by Automated count 180 10*3/uL 150-400 [facility] Differential cell count method - Blood [facility] Neutrophils/100 leukocytes in Blood by Automated count 58 % [facility] Lymphocytes/100 leukocytes in Blood by Automated count 31 % [facility] Monocytes/100 leukocytes in Blood by Automated count 8 % [facility] Eosinophils/100 leukocytes in Blood by Automated count 2 % [facility] Basophils/100 leukocytes in Blood by Automated count 1 % [facility] Neutrophils [#/volume] in Blood by Automated count 3.19 10*3/uL 1.8-7 .0 [facility] Lymphocytes [#/volume] in Blood by Automated count 1.66 10*3/uL 1.2-4 .0 [facility] Monocytes [#/volume] in Blood by Automated count 0.44 10*3/uL 0-0.8 [facility] Eosinophils [#/volume] in Blood by Automated count 0.13 10*3/uL 0-0.5 [facility] Basophils [#/volume] in Blood by Automated count 0.03 10*3/uL 0-0.2 [facility] Nucleated erythrocytes/100 leukocytes [Ratio] in Blood by Automated count 0 /100{WBCs} 0-0 [facility] ID Date Data Source [id number] 01/14/2020 04:47:09 AM EDT [facility] Name Value Range Interpretation Code Description Data Corrie rce(s) Supporting Document(s) Bicarbonate [Moles/volume] in Serum 22 mmol/L - [facility] Chloride [Moles/volume] in Serum or Plasma 105 mmol/L 98-107 [facility] Creatinine [Mass/volume] in Serum or Plasma 0.59 mg/dL 0.50-0.90 [facility] Glucose [Mass/volume] in Serum or Plasma 90 mg/dL 70-140 [facility] Potassium [Moles/volume] in Serum or Plasma 3.7 mmol/L 3.4-5.1 [facility] Sodium [Moles/volume] in Serum or Plasma 138 mmol/L 136-145 [facility] Urea nitrogen [Mass/volume] in Serum or Plasma 5 mg/dL 6-20 L [facility] Anion gap 3 in Serum or Plasma 11 mmol/L 8-15 [facility] Osmolality of Serum or Plasma by calculation 283 mosm/kg 275-300 [facility] Creatinine/Urea nitrogen [Mass Ratio] in Serum or Plasma 8 [facility] Calcium [Mass/volume] in Serum or Plasma 8.3 mg/dL 8.6-10.0 L [facility] Glomerular filtration rate/1.73 sq M pre dicted among non-blacks [Volume Rate/Area] in Serum or Plasma by Creatinine-based formula (MDRD) >6 0 [facility] Glomerular filtration rate/1.73 sq M pre dicted among blacks [Volume Rate/Area] in Serum or Plasma by Creatinine-based formula (MDRD) >60 [facility] ID Date Data Source [id number] 01/13/2020 09:34:16 AM EDT [facility] Name Value Range Interpretation Code Description Data Corrie rce(s) Supporting Document(s) [facility] QECRCd8hTrXGPpAa29/EFTksMNAjs2MrDZhvQSk1CEnxZENlX7FsWJY7eX0bTTL0LUbAWzHtTfTrIOK5 m [file] ICAgICAgICAgICAgICAgICAgICAgICAgICAgICAgIC AgICAgICAgICAgICAgICAgICAgICAgICAgICAgICAgICAgICAgICAgICAgICAgICAgICAgICAgICAgIC BfOLWuPN8VDDEjYWYfLSIzSDFxHJQnJEYyWQVmXSVrUVTnIBPcTAOsRVSvJYXePUFqPUWpMOElOFPrCN AgICAgICAgICAgICAgICAgICAgICAgICAgICAgICAg GGLsXOWpGBVpQYQqKBFgJP3CNOHnZKFzVNNuXUMtEJUqGSMuCTGeGIOjIKOaEBNfMYWkVXCcTZTcWCYs HWUiJHImPIAgXHQcHLFvEQMoDMCbVEMhXXQkXAEmTRHuSAVuJHDoFFEpIWPdCJPdUWNwFMZaQDZkSE2X ICAgICAgICAgICAgICAgICAgICAgICAgICAgICAgIC AgICAgICAgICAgICAgICAgICAgICAgICAgICAgICAgICAgICAgICAgICAgICAgICAgICAgICAgICAgIC JiUSSrVJFuFA2APSYiWRFoMPViXVBzWBIbQMAmXANqFMJyQIWeKQTwHPBnOXFyBKPyPQKpHYFrDCApLN AgICAgICAgICAgICAgICAgICAgICAgICAgICAgICAg RUDvVKMnQFUfKIVnGKDtUCSsOR1VIBTkWXCuEGJiHKWaLCGsSTKtEPSpDPMwXWBlKKRhWNZwWDQsAYMs ICAgICAgICAgICAgICAgICAgICAgICAgICAgICAgICAgICAgICAgICAgICAgICAgICAgICAgICAgICAg WS8XITNmEYYrMROiQSTqKGUgMGNwYVCwMVQnMGPaVC AgICAgICAgICAgICAgICAgICAgICAgICAgICAgICAgICAgICAgICAgICAgICAgICAgICAgICAgICAgIC IcZEFlAJPbWYWhCX7CKTNcZKIuLTQaELSjOWOmIFHkGZAfTZPnDVGtZLHsUFBfNYQgXQLjFHXvVXUfWO AgICAgICAgICAgICAgICAgICAgICAgICAgICAgICAg AWNkBSUcWDWsRDOlQFIzYCVkTEIxRL9IXVNrGJNvHJPhKQYuYHJoJRJnRRDnZYKmEKVlEPPjMZAnXHPc ICAgICAgICAgICAgICAgICAgICAgICAgICAgICAgICAgICAgICAgICAgICAgICAgICAgICAgICAgICAg CVKpSS7SINDoCHJoCNCmIJYeTEFqDYOhVLOmJJRzKI AgICAgICAgICAgICAgICAgICAgICAgICAgICAgICAgICAgICAgICAgICAgICAgICAgICAgICAgICAgIC VvXNUpGJJuXSVmUSHdGS9SUC72jMPbl2Y8UMAhRT2ptdw/Fk1GKRmalsDaiBSyHJ7DSyUbTR7asf1ZUb VyXL4cnw9ZKNxSBaFkZ5U1rZGlEDYqKXJKWnVmA25t GLmgVd51OAnoQKEsIuGjUKx9Bj3MQlJmO4kaSKEgWjV9AZRlHkI0TSKzMhOnFXccFA6Up8RqmDYoEUr+ Qq1BSE2iu2PuATbgAyTlXB0ajq5QKYcRIlTpA0TsdrB5FCAaDYFjSl9RWFZtZTOniSVbUxUhBCPUXyGo O8ReyG93MNESPl9+FDciopRmXpwCKyLgBQWlq3BdOR z3BS6QGSMeFRp9lGPrV84wb6JbyRBjKsddKsVbxXQkjayxJVDIACQkbA4ygL1sUHBCkPOwfKFlDEWgTT 3jFP7uSQEaWPB2GbSmLBVNGS0ZREYsBSQqeSQhTXSjWVOFWF4BSQjcJRX1OJBlefTygYOvPPuoTH1EYA JlbnQgMjIgMCBSDQo+Jy9TVB6if7YgXSsfAGJwRA4r nt1XZQhHRbFtM0G4gSTdO5F6EWwxZq8TOECtMSQtBxNcCJQYYQynHO8CCE1ljfM6KU1SmRLmTCYmSSZq iIFlSXz5T79pfXDyMRblKU1ZCEW+Sadie+Tx7GSZJuBPTgAWAjLbHhWGBEDkYtE6TkS0ZTe4PrM9HdPE46 dKghbtCkZLypDB6KJQ2pZIGpRUCISN3FzFGguL5dxh KjSmEuFHFBJmZoD07xnAMqDXRfYGKvPQIxXs2BQUYsA4AhubGoySczfzHoAOYkTIPXYR5AIIraehMkqN BqnElgBW61nFmoTA9EAc7JHsFjMP5czf1UfJHmQx2JUVHgUJ3QGSOzSVYhQZCaXFC3RMPeRfHvPNojDF RyUAVbOSZ0CSLsTKQnYW3PBsMdHNFaIFEiMnUsDNCs NJHdwf6WAADaDXCfFwM8EjZnXYXsYQSyRIstAWBkZPWhBLB1NGTpGJPePV3NWxLmBNGfDRW3ZJPfTCJc MBZwce4PMBVyCZOvSaz6LMXhVIVrNKXrRCcdFFZeUHP2LiY4NCTzPWFcPQ3TUcYmOVLiBKT0NdDmZMFr OTBtlq5AXUYdZOBrLCa8GLRkIMPaIGUcHZwqWTIaRD D1ECy0TRTnIXAiUQ1STsQzLPRlBJMcRqanUHTtKHNcge6NDEHtDKPqDsPhStDbWSQgNXTlICdcANRiEY M6JTV5GMFoEJImUX2HBvBsKXUrFFf1PCarSLIhUMErsa5LWQJcDTKnGJV6PmLoOSNvYUThCOrmLFToDJ G7Bgn2AKRlQSOpHZ8PVmDhCKYzQOb1TjBlVISvUKSx fx5DMQFpUTJdBPmzNiApLLAqRYMdJPufBGZrIHWwSKHtWQKpGXRuGK3IWsOqEHPwYSHkMBFfORTkMHKz wv9VVEWtMZHmGPj9IdJtAJZqJPUoITdqLDEgAKOiWMtjXMRdCCUpSC4ZVtTtMUUgMRPvAnZiNIKsMTOv jn3ZXWGdBSMbEvVvQrLqGWOtKFCgVNi9ykAkuJCvMU a3EA4PT0MiktMsObJEXa5Nv622VHC8PKVvYe3XI1clYn6eEUJpHQTPWq3USEy5LSfuTHG3CPFvS2BxSY BhZXXlJCc2JBQ6X9EnUyL8EXC+BIqeQ8ZiBUO6ZxBgRhYtGfI4EJRsKJexPnt6NAG8WXB1Co8mVESPJo 4+YHckzXKwuSmvYJNGYwRlBwYyKQhpAQCENj8Q ID Date Data Source [id number] 01/13/2020 08:13:48 AM EDT [facility] Name Value Range Interpretation Code Description Data Corrie rce(s) Supporting Document(s) [facility] NRSVOi5rRdKXBxQjm9AmFwDgIBKfWB4vurc0A0Z1aZHmH1VavRSbs5lvZ0BxZ6JjIELxFJSGOZ8OhXTc jb2 [file] sj+FEYJM9ARKYaE+NosSJRQ7EFCOhnGTxJDbQxyAEJ p6j0KG7ZzopEkL4FF617h6B1X514WZyIVt/CMrBH5aiKvGI63qEdrHuPdItnuNG7dbKDfhOnNGZWaNMV 0798IJJqXiGlbLIPPnrbWM9cvPKHLlop1NlkXd22R35qZg37Ex1JrisKjoH3ARChjlE+lisXnVY+lr3O 1DJvX/0GzItTwtf5N1yceD72PLC0Sdl+kqp2zP12W6 t0LflJt++neippm4a78mRJEcqf+UvytrebxSy3BOcuemfb6UaKkjbzEn/TPPf8sNqIOxQJK/gL1tm+fY N1ti/6lfBIoGCd3ArIdevtLj/LVb96+Ol9LYKwP5pZZ+gHs2FF5yjOUQ0D2PUmvtX35HGgGCsWtFjcl8 t1JCtatSveuzUQBjpklydB3qVyN2s6zbcUOGKkMsPG jcFPfDZHbtxkznCL3wLgxBHWWTOLvpLnLPIahVzjJhJZLdSEYjLkLN9BIsu0LskTRf3BiRMFE4AojXKF tMwvzJSiHZgpQIKS0AVHMrDjCOXT0OTVPkMoNOUM1FPOXjOucTKhne6Q4gYtUldYuj7q6WhEkOKUXW3A lSoHEHn76gDboOhY7X+zpsOzCuvhlfGoy8QaBwEtfD iJk7A/ZWgcjdhLQjaGAvjBLodOEbgOXlm9hOdCBc+MJt+Nk+/DvDcxuR3h7Gw8LW+4wDQbKHgCQcM7QW fuXBe2Hf+bMf4M3THS+shogsb7jPq1JNzPmT/dTGHJXMAe1VPIz+Af2AX/jHRKBA0nQEDfV3MLGcDYqx QQHlyykgb9TMSwSSGBs6MtvUvPzLnWkJLExIVHyQU9 cOU5lb3XBFChRNiYxI0QXlZvVLrBuL437xp8FU7TiPUD9sLqD8SZiFVG4eFEU/Ay7gKXc/IIJINkkEwS 9AeVj+IMDOCSEIZd38pdWXi5J2uP63hRmfA0oQhZMaQ44lqyF6wXTCssFKlnqph7bX12pskkOZNULIHV kCXuVUOwBSSMnJrd2jWFtZ02BFbxbwZLMAxNihW8FW Y+lhLqpOMAawJEQSZAyxCv1XY8XRL2dr0+6hmpPzoDJ2YCNnRR5uUPLuo7fgC3DsxCacZTingZ58gq3K OpNtfZH+T4qdxOL7xx4cs68iDZW9ppJ4y1os5wNbP99YxbZR+jqqIeD5xVb0xGi6Icl31byohL/2DlY1 znMOj2eZc97YKX1l/L/Ccn03t6LMMnJJr+ss6poaAq aG+ijGiSwu2Kxepqh9DncTj6VXhtbkmZ67qGIfCMnURuSb6ff/V20Bao9UQ6uyiaXALyB8tlWCz+loqH niwgK7EM4KVWDI2zYg8ARzKUnSk6xbTcO9tjQ956RDTEdUyWrrPkMuV/SD+icr7EfL5PYlpKL6zoobXm myMc3VSjw8hk+AgkTuIknaSTBEmQDJJBMkkmyLwuCi OBNqOZlxSIuOkMgCYrNOJhTMpSSEoA2lNTNdC0cRAPeA6svPJxs6uD8ijlBwJbAJ911hUj2LB3IMBlLN PtfRQD8hrWKGkJgTNIQJcT34FVryjE6hX5GVbPGIn0zNmSR1wiwZY5nstx99lmeckBb9Al5ylxSbSmUK I1T1mBHt3GrgLcjBVlEbR0l+iaL7PGHfj2RMb+ROf+ ROf+ROf+ROf+ROf+ROf+ROf+ROf+AUc8ziU/JhDdFQgw51UJcjfxmCGIrtnEfnQ+4iOQCImQKImSNJJG YaSQ6eJK8e/71OscSwlBEiSDhDao/Q3yGYHucvq2FD2qXMXgJGgEXQyVoRsRiwyEeOH1dxXNOwoOrXP3 knWFCyo8xgL6ysOEZdr91lqcL5zmTBTNEjNE6vXM2b e6HKLCSkpCO2TZoabOlqmzFKWPTqK9HUd/5Gux7T52nkw6871q800LrKnxogDk5ja22aswh964AOg8wV 4hn3RbX3yhb/Na7BEr5pHXSPcKyakDwqeKkQmvh1I+ggb1sHjrqTHv45F3oyNRmLQ997M50MKgtaArzC V474cB7hb2EghKqC6m2JC51e/gJ1Y+kvyRIf1ILNiO vf3Wh4NOJT2v1oU3HzdHMwrnCc6XnS5qhF9yrmKTNViMYLRBox8idY+Y7A8m+4PJ/gLkF4iqXpk0lRl+ cbJPnOwTJ/wRuO0xnq+c7BMn+0SuO1c+af7wX1bdE3S7aVFDK5ba4ZvjrWUVUY7y3QY9DrVECmIdR9XD 3PlQzvWbypZctirTduIyFVIVVjyXQty9ykahyjn24f BblLh46gFljVctU4k+iNyqwary3beIYhzAm/u7Lz+8zuRjq3m27m/e/csd9Q9j1v38b1/tH59xrskrQm ttakmpd6zsontQi//Pu3/94Jd0gaX3OB/77JELizZVOzOLGSvFo3u9/Oy797/52dq8+FGoS3y06abXH4 aF5/Pf/jhvq5c34E+++/Tu0/u3X7//+bNH68139aih Pvzu/izeJwb1f86w0smo5n5uRy15847mvea/9eL9n37g3q/u3a9+Hpzue08i+NlvuytWhjtY3/Xhm99+ 9/bp3Ve//Way4g23+sO7v/HZ+yV8f/yjq6639+2nt4+//lL9c6d8n234a2/c1e0o3y1PR58+fPvwzS/e khqi39d//pevPnx6//Xbt9+8vbRfvv/Ftx/rk72KG7 F//fu/8Q1SJf/m22+++150zo743jEYu9/e/aic541/vfvym28//nqdf59J/+kfrhhe+bjyU2/vv/qvf+ Srd6Vnt+yff/n+p6ravf06p010eM4Au/8r2Dy0M9f9+wv+vtkbtCY9B/4Hnz2MhK/mn377/hnOK6499d 0KO8w11sx55/zX96/yv/59+BSq0DcbOv1u/Xf3XR/r /Or9u6+/++oqI6WxNxu//+nf//CXH3/4t7f/9n/efveHP/7x+7/85Yfv//gPb19//6c//GUFs4Hq/Ovf v/35T2/z5zp+vn7m+AMuH8Yf1702cx17Pbh0Gj5/+OPP/8qvnUMOluuFf/ubgRs6IT/crl/+f1UkqGsH +Y/JCeffHnayaz9f/NfJa60k+P0jlMENkp56Ntn952 noMpb45t66/DCqh5wX34bVX45h6624aaAqR668+P1UL006PYiuP534ADkw/Tix6gUi/uk6Hn+ayJe/4Y 3AaD6X4jRRqwf57I4++NN//OPbX77/jx8+u/1xFz1TFPheP/3415/bsEQg0dH4s/ibj29/+NN//PCX// Kdzh8yxbph25huKxnc66/cfbN/+vjd27/9z9dv/8Of //GL287kpb+5sw1gZc/06ef/9On34K/0pLU4g4+rt6GfixFLTVrl4VE2mU0/1Mxyn87bo6Rm/qrNfvOz jz/79Pb9//7hr/+52ZyHOn/62arqcdsGZQp9nCo4/p+/kFYnuo6tgeERa1//8bMnPD/jX33/P3///V// 7E4riaUIkxv+/vAT+Fjp45///GJLf5h14m82ZKcmB7 /+/ObhzW8ZI/yybP1HX/z+f/zpD79//ZLf9a646u62t+8+/Prbb95/+slfrDQi+Rd//M0Y9sz3O/72q2 F9//JRVgm//fWv33/z4jtf3Klgz+///QD8LEmofodl69p/4144e0o///vsA3zs5zs7u5m076/+Qcbb+6 8/vSX42YWh+Tp93sDR9t6+2nzo381NKXz567UP4/72 w9gy96LdqRh5IoPd/ins5DxwPbLeDHL3dwCchDpvheUbXkgADYmqVGCoUkx0RT9NpUWeTGTlY9S9TLUu ui0lLPTvUXEluEIvJaYnIOFGRQ9AnYSbUU8AWFs4RPWrHCLvSkIaHBMdgkK4RKYlBGMlEBVfK9GpqjJq dCAyIDAgUj4+LG7rt5ZxEnPsLEUkDbv6JA8WcJMgTB 3JuQRaeY2ajsXnE456mfZvPYNhBttus6YrSBenJDBBRW2LGNO1HOC3DKKnBf9+GW3um3MwZwCdIJEfCe a9MO3IfLZkb6UsWG9NV1XvTGLdEAQXHIA6j1XjNSHiprdkrjyhR4SjBQH3bH9gBIZ9FNYgTBjhOAJbJN osMTO1WTIsLCmiHNEtOXUbAVUuUSWpHWh7jAWjDK8G U5EtEFUaSGFLXDFywgZvGu7jDAFLObONNzytD4DDRKWzXve3JIIqDRtgH6F1ClvzU4GhTJ5PF7FtTHXc RCGGWHAbsqQxUQ2RmtXflL4nPMxIPLKIPUcVIDjfVsO6o30wwrZIZUXwQLIiWKvyGYCqUPHzRPKoOCCf YCNaHPBmRPKfZN2MM8OkQIGnRCIIFIP0i5AuQQUoaf jsjcczSo5tyqOkHkj+SxhtGNTgn8WiPZjgA5N0lFCxM6SdP2DaXD3NaMEqQGqnXDTxCMJkWKBzP470ee QgMT4+GQ0nq0TvXcwoVVTBKLGpHTGfVNScNBQ4DcLmCAUfNVVgSMLtOkL2StToJpEDURBgHYL7ENNvBR UwXJIoPSKcNEneAAPrGYI4ZcwxEDFjNAImSZ0aRgSy OGJzDdIvQYLhGKIpTFIgddUCGHXaVLEeUUWnNFO4RSXqSGAoWUezRRKsQJGlAJY8PKFjPMPaIY8sSrXs HXTiLDFgVcypLBVhRBQjtcRBTVGjCUTmKLG9TgUqKYEoKNKoJHmbUDYwDDCoNvv0XAFcCEOiDQ7zGgNr XZYaRUC6JFxhGRQbRTLuldKARYZcOQErMYLkRpDqOS ErDXIcMHsuOWXlLZZzMfXsPCMkHKRsIX6kZjOhNRNyLJT1HYXiNCXqKEJwilBIXWIqEWPpFAr3OKXjXZ EmBILmIUgiTRAvQYWbHAG4UJPqSBXkDU1nFhDaUOYrKDXeQJHpONNnWJKrdiDLLBTkLYNmELW7LKGkRD AgESKfRJmuGBVpXHVzTjf6ULBhKMYmSR3lViMmFEYt QYE7NIIaAOEuTLEhwhKQLVJfREU8BDX6CUXgNPLfDOZcGApbRKEwVQQjAmF2AUPrRJThQM5sBuLfWVCy ARO4OdIoKTKuIGCgrxEYZCDiVVCiQIY9KtKfRROcJDNcKWpbUGXhRJDjRBEsPJZ6FGF1KKUnCxAjUPel OHVVCPuTE5RbdlVcXgEGP8npOy2sSjFeUCFUA6Byt9 QgNSAwIFIKCj4+ZrM6KPL6tRAdJcz7RIP3AKpmZFVAMk== ID Date Data Source [id number] 01/13/2020 08:13:27 AM EDT [facility] Name Value Range Interpretation Code Description Data Corrie rce(s) Supporting Document(s[facility] XBLUKu9lGuJZDcFeg4TtNvNyVCAuKJ0jxom2L9Q9tTNtM6DgeZBlf9zsZ6ZrB6HpHBRpIBVWST0ObHBq jb2 [file] rF+aS3IMi05xEpzIc05/KoDHRUTzT0dFh2ljqdie72wqpO/p4CmZ/d8KcnDE2/Anca/j+xtHgqTOOCX/j o+do8jc++v5of+Wd6WXoG4FVDn0mYfuJsm/43PEim8 jBTk973b19z4hYG5l6+rWmyKx1m9/kDG7enEbConOOETOxf2Jg+8G9Br5X0NxtN9MY51T9SzePO3z9iE 80+TCxOa6wxn30f7UDj9J603KE71hg71fjj2exO5Q90fJhczUD1RR2+CusX+jMq89lm8fV6qsfQR4VS2 mw1Mo52yskRwq9t4KjdC96yQkHO36ouK/poQup4vAM y6d6r40EGP5w5q0uaptw7iRVxoU7gvVN0MlqwR/+oW43evnfK72TxN1EM1mhLXcJwbronZ92c9dw/SPr d7/M+kR67B+pouu60n0Pc41mMQiQ4ae3+xdN36bK608W93+Y0F4RUOFml85VDGPe9Ce2Qnq1jgzZos0E hIn6m1kvj4v1zuw/ZLKQvvD+Kn25kvXK/enthone solder stripper/2hI77 ec2B/M55vCRwX5qm7Q92Fe6D/agL6xP/g6JijAE0tu/kxmsQy6OHdB0U4Xi+8b+3IpaKFMbank8JvAii GdN8bYD30Mnv35RPovstuCEykl9CPWE56ldcy+oyuU6X0QQp6hUgJT0E+Pj4z6xT68psxoa1qHM5i9tR wKY237n6+ikKUWTiaV6BdW8XJGCjEY8xq/In2i/Qvt X3h/4/2qW7pmwGD0Vx1m/fINc/hnh3/G+pU5fl/U77u9F6B8nVB/0PzGC+gcpr6CFmH+94/OEdunf/pG OvzzhH+eDenoz/Ou59i8+3211i4b/FAgYHy78wxc/7UqATdfP6UbQq8itl/NifT7/YZh/crmXc+xCX2x fmUL/mrd/P6bBzuhFwe+Xrfeizk0i90PpgX6gXB1NV d9w2J/3TVALccgv6X4m11M45/8a1i/ZdDlW3752vbdJ2W50gOZ/hCqh9XoV7tf/Xlj/M7D797osXa+FW N/33jQNvTdjnTH+/IBq0WikhKO6nrQ0h/d241/bd5gnyw4hUc3q/kOvU380Tgp9/N4MT3gRQG8qwUY+l 4s4Tx6uPrT2Ln+5R4h7hX9f0dleE13rex+sAmYix4h Y0ilnjzQlyxknm713KHH1oissCfZwVIdB7Du6m+/te6h0O25NSXq/3FEMuX8v0y3EQ5e+RsfRexzjsBO r4SBz6j9H8F7S1i79zgc+Yjyv/AVXueaJ92/5cdvJCc+ChZIHip971MwFVn7+6PPs+ViFqb3IX6T914z N13j6E4/8Dm/UJK88MOGo6dsl2/xfwwQCJaE5cEi54 n0y68c/MzXv2ut52LIwwUx+isf1z/42RhoXFxvK8FK8loJHrf6/dnHPb/g+K5SgyEsfC4HNwA+98t8XP 2eQoJ00ntVb11CaTX07pvZSs+44jTKhru79WJunNLwsH2a/+vgXVjzO9Yla8Kewf699C4MEnJL/L4GfQ 506ekxt955UgcSpDyK55/hKK0y9w/809dhM7xjG1xt [file] /7cTiXmDfWhJ182ITn2Wvm3ICwHWsjc7LG9/P0W 9lVeX/ZGC/sq+ypn7ixAdILaESGJgCaJ3Z36+MrXulHBYc3s6467scZhvDjut4/OGx07wQCEzkJfbO0Q Vf09h59xD7YW7Gv1Z7iW6cIb4SZ7J+DrZO3PpBaEhE47pRy+Qd+n34G48S82i93VZ5Ka6I/bANk253Oc O1bpZ/mD+1sKyfpnEOpUQmMVnPQIH7q1d12Lx0My4S ivJsarifFqTugdeoxXE+PVLP+iFk4wWt9b5eoMruFr+fbmNR/bHP+jnL+KdEc+RIs7s8F+Qp3Liuad+7 j3dA9HX2xFAuwA/Kkm1Tk8KvTNcYq8qD2vds4y7Rj7sT5R6/wN87iziMdU7+v/HvbVSUM/oB/QT+gn9I 98Ax0l1We/2LE6t8+mNAnDZi8vaxau1SlF32Pi8Njn O/QGfdnP/Ob4vM7M+ep2nP8qbS2XbaGdJm7l89U+VlubWgbjfa9xi1DHbwNqqQ/Qd+gNeoO+7KsO+6rD kcrrlXbnDplTysJhUztoj27fzZ870YhWru1+94Lxs4T36TFTG6rqaWjrQZ6RmFIo1yy/9exwAJslTV1U eXP+vdj8Dq35zv5ltxCz5Y/0pgiV3kjtwr7ik71lFL n036sGE+hrPbTH/HSYvqxaIlWL5u6b26yYZ0kRYVq3+Ub55g5N5x4g7b6AGhmbyiSQ+NpTnHk7oW06Tk omFjf7dx/ooR6hBcoI11E+bIjx71oAx57M7Y7tGpz9Ur73OkgRy5y3y/mrqE8r/7cb+q/h+5fBZ8UT2G u1h5i/fcNXkpUe0Ni3O/qaj+1W88/ype18y0Hmf9+8 c29S972DZ2B2wo/9XiPUaPNl2tKkWE/30wFa5IrwA/YuI0YEUr03HOg10VdYM/del72cA+Ud6L+Yv+ox rjZ9TLn/v4+DvBx3j/Stj3xu+6dYDUj33F6T00i8CqFIwoq/NDP/7e0f1q4v++x6He26ly4zjLdg1G+F z5BXqAkOd+wzILnWs4+ApE+4H8NgU0P89f6/aJ//eO 6lj4rGSt2tAGP5R5/neSc96hm89Pgsw//YPlK6b6Mku/sub+TvNb/WjpKcp2U/tq2doX1jzS51P1svE8 WsD+7zHuebevkL+7RH0+1p9kAcoQ11d45Uu7As6/oJt595VlS0YW282Is4Ao+gm4O16Mz1Zd7AN5On9M /oJ/QOvUO/oF+Pfh/qqPSuB9/nOr7Vvd7mX+gb9A36 Lq3L6aP77Bg8P/oJ/YTeoXfo6/ymWdeuNlH7GyFKPe1PX/N3hXxTbx1h+rA9u55Vt936mKwkkPHMygG/ oZ/QO/QO/uI7dv1cIc6k5JW8XUUprox/xeRN2tvzPHn4EfqtAjMjw3V9/rnr5E1yzX6S0p4K50hhQ/qy mmi8hkM+XorU4hikzTg+yVRPdqiXc1OhNz7zalH6Ni fX/KRh/5Vh/5Vh/5Vh/5Vh/5A4iojFg7OR68qvqbVGA1Yp/bM1oQxsmD5sA+gS0zPr76OPP/Qd+rI3rO N8iqmktg/a1S57xJ4YHlNlYigmgDkrA5ju2j/Qnl8Nbx8Av2Sv/oMGDfd7rdBthyM6fvAxdsczgsSK3s TLhyDMwO5j9jDdjeKQoJ9rBYK9fWlrqj7vT+gVeoW+ QV/r+zY69Pi+A+FbCN3NzCqQA/G3L23uhFxhWA9CdHT+Kq6ZZU/yAVsGAb4tw4U2G0b62O9h8Bbfxb28 y/+0Cw0xWFAbqV/IZ0Bf+3Um4ydIkxrFsicl2y1eNhsbVlz548T+avsmFvNXmRboBdfXerfF/RC024a+ t4lzqlijp1fp74yD6nD7uw+uta6sQB13Zd/hP0Xg6H +L+jeHmlmiqxh7dj6SM8p7aOs0djRtKLtjb/0qtmq/kd7625H/0erQG/QGffkLtmr+3ZoJd8Kn3Z46/r 8aT613pc4eU9420SK95Pldasm8rNi0TwoGbk68p6UlNb9T/zj2jV9pswf7+LleLo4kPUL/x1Xr+yPmr3 XaUbD8FRyr1noCG5l+uiIfkWe/3JDtL+t4Sp617xND j+tv/2juNjNk+5eQ6Wuec1QaPGH5daFlN+m/OXCHspx3141vyLr9q0b5P/qssDg7XsFrfq5t6YM0gY/1 eoOiSdyX9nL9plBbviceEfJ2+3c92liPj36nHn791ay64PB3le3zLEyuAhycD/2MG0Or/w6t/Unj5Qvy V6PLm5E+d8PLrnxh+2rZzyPWB/Z1uy2xeaAh+3m08h dGK/9oNIFeoFfoFfoGfYO+Q9+hN+gN+pF0zY6JW1O83H69AI56Q1Ewd65koljRrno4Ke7Cm3A06Ny4Zm vXrAXn8TR/7jDNAgs97LF0g12Yf1Vir5BdiKEtwVMmcJKgbXUOdL5Jv/PrOxzMtN7x9uxNOdg/aBjGK8 E1XUheEST9iUtZWeS8WuOC+uDA+uDA+uDA+uCI+aso yyj/aAyUF/NXA/NXA/NXA/lYiQeQJH65+h+MCgSXnKFwC62yxd/14nWDMnqj1ccA0v/GqP/vmOUfjXlB X/OTY9Z+wjHLPxpToa/9SGPW/pwxO/QdeoPeoB/QD+Q/5ymNsiO4Nl1S+tp/Jimmy+JAMES+JAMES+JAMES+OFyh [file] v/q585wC813+/s7Ue67165m2433+6fndC8u65uqsyew+w6/wgrqq86wbd8+++/jV1+/fPrz/+NYx3232 59jiHLd8Mx9gC1f4s8cOrID0nT++/u7bt4/ 549+WSs451Q4ytq+H72i/xku78Sa/fPnz3q/dvr2e/shJpO66nHld6uq+ojb0Vub+++Pj2i9+9NB++em ne/+d/+j+//I2zq8xIb/7mVZLXhV/8008v2+G57sv+yy/ff/32xTe//s27D++/sVzhO9071L8W8dt/+H bZZ//Xu68/uw+Iv7L9/NK3X3/7V22c9sNR/v4/yPE2 Ge4cv/7m7duv/unrr/6dTzRry9p51kyrmh6i1//P8lvRjgd78e/92x/+8uMP//r2X//X22//8Mc/fv+X v/zw/R///u3L7//0hx/++PYv/0n8X/7u7c9/els/V//5/s7+ubTPVd/e/fpvvsk+wNGbhg3562//yscu a5PlwfQ//hM0g0jfTqwwc/9s4CkNN4E2u/UPE+gmba j92cmyqglHiW2N0ZMf2p19HQSoKW/4dipIf27/lr7RfTGf9SLSi/jaWIG9tP9+0rxbn09V/PbVLz68++ VXv/0iwP3Wo4nQi8VddoJplf7v2/n1asG/+A8f2hRdItDD0rFZxHD/+8Of/j3c4k6i/b//8En2r3/oW0 TUuS/68a8/zf1gr/f/ae4H/M2Htz/86d9/+Mv/+Ju3 j+xPfX6a/Q78TcaDN1O/2D9/+PbtX//7693/8Oc//TT7HY/tM0tGJn/2zx9//t7uq27duO7bbHDSo7/7 kE9y3y+6k8WqR3o34GNorEkii0LnhTXoqoPQivKAt94+vn3/P3/40504xnvb52Zy72/a3X5k9TZ2Wu/9 X3/5l7/7ydXnO/zjDz9+/0rRrgY9TJ/i+//+++//+o fv//AGXM5nW//ID9Ofxx43+c8/jy6lwwGr0nvda7//3Iwd+vN8b8Uatb/+8Pv/509/+P3r+Z/totz78J JN7hGX/iQwP14fDz//9v1X//d3H95/+8yF5OlMJqN4c/71+68/fvs5u/n9O/z/v+Q7kpRb6xK1x+//2w 2n6lbed8v5lV9kvxniOBp7k/8aEV7/4ygayvv8/r29 ukgi8jn34gFG3w50/dZT7mhiR2x+9TccwTPm093bQ1m0dPvcQF+5/18FnSueMyOtJEV6joObiHgvjgKl RlmWFLimNNEeWwo7OF4VzMXnCXYbE1V6FCBtru2nZWSqKDGmcHQmBnJmRMLYSD4BjXZmIX3BIWr5ROWg IGWbXbHqYYNdsiW9STXiKJOlWLRzH3AktsUcuIHmIO AgUj4+PF1ms7IbEgVfIPMzBhv5GX9EtMSdPT9IvOAzpT6osyXsS089wlQsZIKaIuqfp4GsTKqiXZEFUQ 9RCEZ1TUQ3VMIfOz8+GD9kk4YrJbHdZCSsJtu1CT5LjBJfm9NkQP4BT1LnFZUwJRRTCFZ5m1EiEJTbte vqhowqB5SoXIS7eD9cKMK5DFPaXQqqLKRsHDcsKFY4 UPKySNxlGMVzFOJeTDUgKYGmLPz8lMIqBO1SQ7ZoAHOtXATCAKXokpOwGk4qNPVGYaOMJpjqD4DFOGRk Ziy6USGrYDjdF0Q8DilqL8UzGD9ZQ4ApWDMtULHJPBVdtcTvZN7NtyCgmZ6xSGoSUGITGKhZQCpzKmQ4 o53gbhLGJZHuRUItAHccETQhNVAqETHmHPPdZGKmZI XxIAMnTH0UF3XaBPHzMEFMOXW2d5PqMZIkxdbcelppDq3hosGcKpd+QziuMPCnp1FfJJupU4B4hZGyN0 DuB6HpVK7NjVSzAAdpUYQbJUGjHPTvQ803amYeRY4+AF6xk1MtYrmlMKPGHNXpDLKrBXCiDKW6LaUkJL UxWHQdWDEbBfO5NbLnPsWTIUJaMUY6GpU7WyNbNEZu SDEwTQnqKUWwLBB9JPXeGGLuMKIoOW6uTwFpIIKdAfF3DWBhJQIsWHVxeaZVLRDfUIMlMOIvZCD4PRLd LVZgBKwxSUSkMUTqVHH8PPFbHFWeMF4vVjMpKGJyCWEtFefaVBFqCKLgmjENHAUqMQJvKRM5LpMrNAUk ECAcHNgxEEKeACMpIbu5SPHhMXRwOJ0lUzWfHTJzVZ P4HWbvEGJdBYZcvrJBFEFpTDMpIUNhKrZoPDKqDOMmGNgxFDDzYROvDoPgKUFhIBEaYO9pOyHoNZVzDU A0ONUyQUPsWDSgnlQJWHWeDXSjSUx7WOLxNHJfUWHlSQlvQYMnSCUdBWQ2IQDzZPEcST8qCoIhKSTbRS GtOSXkYQChOAOfieSKHYPlTCWyNJS0ZNRnGUMzVHTy YJagISUbXGGgPzo7CHZaSAOwHV8aVsUuJWNeYEG2OLGmNKAuADZcwzGUAVSuCQE5CrxfDnItPFHmUPMt PBmyNUGeSLRiBmK8LHDsOGGiUG5tNxUhWLBhGMQ5AhRaIHAyTPUqiwZHEFVoJRSpITO9OgIeHTDjTRAw VWkeURWrBCTjXSTkMJW9UCM3XYUzEvBpUOudCEDMBI iFI4ZlqnDiAkJCJ9pdEk6hJgWbZTRYG2Ulz9XqDUSkPIUCZz2+PpA9VQV7dCIrNwe7NfLuKhrqXVKHIl == ID Date Data Source [id number] 01/12/2020 05:51:13 AM EDT [facility] Name Value Range Interpretation Code Description Data Corrie e(s) Supporting Document(s) Bicarbonate [Moles/volume] in Serum 19 mmol/L 22-29 L [facility] Chloride [Moles/volume] in Serum or Plasma 111 mmol/L 98-107 H [facility] Creatinine [Mass/volume] in Serum or Plasma 0.66 mg/dL 0.50-0.90 [facility] Glucose [Mass/volume] in Serum or Plasma 94 mg/dL 70-140 [facility] Potassium [Moles/volume] in Serum or Plasma 3.7 mmol/L 3.4-5.1 [facility] Sodium [Moles/volume] in Serum or Plasma 137 mmol/L 136-145 [facility] Urea nitrogen [Mass/volume] in Serum or Plasma 9 mg/dL 6-20 [facility] QA FLAGS AND/OR RANGES MODIFIED BY DEMOG RAPHIC UPDATE ON 01/11 AT 1515 Anion gap 3 in Serum or Plasma 8 mmol/L 8-15 [facility] Osmolality of Serum or Plasma by calculation 282 mosm/kg 275-300 [facility] Creatinine/Urea nitrogen [Mass Ratio] in Serum or Plasma 13 [facility] Calcium [Mass/volume] in Serum or Plasma 7.7 mg/dL 8.6-10.0 L [facility] QA FLAGS AND/OR RANGES MODIFIED BY DescribeMeIC UPDATE ON 01/11 AT 1515 Glomerular filtration rate/1.73 sq M pre dicted among non-blacks [Volume Rate/Area] in Serum or Plasma by Creatinine-based formula (MDRD) >6 0 [facility] Glomerular filtration rate/1.73 sq M pre dicted among blacks [Volume Rate/Area] in Serum or Plasma by Creatinine-based formula (MDRD) >60 [facility] ID Date Data Source [id number] 01/11/2020 04:24:53 PM EDT [facility] Name Value Range Interpretation Code Description Data Corrie rce(s) Supporting Document(s) Bicarbonate [Moles/volume] in Serum 20 mmol/L 22-29 L [facility] Chloride [Moles/volume] in Serum or Plasma 105 mmol/L 98-107 [facility] Creatinine [Mass/volume] in Serum or Plasma 0.66 mg/dL 0.50-0.90 [facility] Glucose [Mass/volume] in Serum or Plasma 89 mg/dL 70-140 [facility] Potassium [Moles/volume] in Serum or Plasma 3.9 mmol/L 3.4-5.1 [facility] Hemolyzed Sodium [Moles/volume] in Serum or Plasma 136 mmol/L 136-145 [facility] Urea nitrogen [Mass/volume] in Serum or Plasma 8 mg/dL 6-20 [facility] QA FLAGS AND/OR RANGES MODIFIED BY [employer] UPDATE ON 01/11 AT 1515 Anion gap 3 in Serum or Plasma 11 mmol/L 8-15 [facility] Osmolality of Serum or Plasma by calculation 280 mosm/kg 275-300 [facility] Creatinine/Urea nitrogen [Mass Ratio] in Serum or Plasma 12 [facility] Calcium [Mass/volume] in Serum or Plasma 8.4 mg/dL 8.6-10.0 [facility] QA FLAGS AND/OR RANGES MODIFIED BY [employer] RAPHIC UPDATE ON 01/11 AT 1515 Glomerular filtration rate/1.73 sq M pre dicted among non-blacks [Volume Rate/Area] in Serum or Plasma by Creatinine-based formula (MDRD) >6 0 [facility] Glomerular filtration rate/1.73 sq M pre dicted among blacks [Volume Rate/Area] in Serum or Plasma by Creatinine-based formula (MDRD) >60 [facility] ID Date Data Source [id number] 01/11/2020 09:25:31 AM [facility] Name Value Range Interpretation Code Description Data Corrie rce(s) Supporting Document(s) Sodium [Moles/volume] in Blood 138 mmol/L 136-145 [facility] Potassium [Moles/volume] in Blood 3.8 mmol/L 3.4-5.1 [facility] Chloride [Moles/volume] in Blood 108 mmol/L 98-107 H [facility] Carbon dioxide, total [Moles/volume] in Blood 22 mmol/L 22-29 [facility] Calcium.ionized [Moles/volume] in Blood 1.16 mmol/L 1.13-1.32 [facility] Glucose [Mass/volume] in Blood 115 mg/dL 70-140 [facility] Urea nitrogen [Mass/volume] in Blood 8 mg/dL 6-20 [facility] QA FLAGS AND/OR RANGES MODIFIED BY [facility] RAPHIC UPDATE ON 01/11 AT 1515 Creatinine [Mass/volume] in Blood 0.5 mg/dL 0.50-0.90 [facility] Hematocrit [Volume Fraction] of Blood 35 % 36-45 L [facility] Hemoglobin [Mass/volume] in Blood by calculation 11.9 g/dL 11.5-15.5 [facility] ID Date Data Source [id number] 01/11/2020 10:26:42 AM [facility] Name Value Range Interpretation Code Description Data Corrie rce(s) Supporting Document(s) Bicarbonate [Moles/volume] in Serum 22 mmol/L 22-29 [facility] Chloride [Moles/volume] in Serum or Plasma 104 mmol/L 98-107 [facility] Creatinine [Mass/volume] in Serum or Plasma 0.66 mg/dL 0.50-0.90 [facility] Glucose [Mass/volume] in Serum or Plasma 115 mg/dL 70-140 [facility] Potassium [Moles/volume] in Serum or Plasma 4.0 mmol/L 3.4-5.1 [facility] Hemolyzed Sodium [Moles/volume] in Serum or Plasma 133 mmol/L 136-145 L [facility] Urea nitrogen [Mass/volume] in Serum or Plasma 9 mg/dL 6-20 [facility] QA FLAGS AND/OR RANGES MODIFIED BY FLORENTIN MATHEWS UPDATE ON 01/11 AT 1515 Anion gap 3 in Serum or Plasma 7 mmol/L 8-15 L [facility] Osmolality of Serum or Plasma by calculation 276 mosm/kg 275-300 [facility] Creatinine/Urea nitrogen [Mass Ratio] in Serum or Plasma 14 [facility] Calcium [Mass/volume] in Serum or Plasma 8.2 mg/dL 8.6-10.0 L [facility] QA FLAGS AND/OR RANGES MODIFIED BY [employer] RAPHLUCIA UPDATE ON 01/11 AT 1515 Glomerular filtration rate/1.73 sq M pre dicted among non-blacks [Volume Rate/Area] in Serum or Plasma by Creatinine-based formula (MDRD) >6 0 [facility] Glomerular filtration rate/1.73 sq M pre dicted among blacks [Volume Rate/Area] in Serum or Plasma by Creatinine-based formula (MDRD) >60 [facility] ID Date Data Source [id number] 01/06/2020 09:55:00 AM EDT [facility] Name Value Range Interpretation Code Description Data Corrie rce(s) Supporting Document(s) Albumin [Mass/volume] in Serum or Plasma by Bromocresol green (BCG) dye binding method 4.6 g/dL 3.5-5.2 [facility] Bil[facility].total [Mass/volume] in Serum or Plasma 0.4 mg/dL <1.2 [facility] Calcium [Mass/volume] in Serum or Plasma 8.8 mg/dL 8.6-10.0 [facility] Chloride [Moles/volume] in Serum or Plasma 102 mmol/L 98-107 [facility] Creatinine [Mass/volume] in Serum or Plasma 0.74 mg/dL 0.50-0.90 [facility] Glucose [Mass/volume] in Serum or Plasma 77 mg/dL 70-140 [facility] Alkaline phosphatase [Enzymatic activity/volume] in Serum or Plasma 57 U/L 35-104 [facility] Potassium [Moles/volume] in Serum or Plasma 3.9 mmol/L 3.4-5.1 [facility] Protein [Mass/volume] in Serum or Plasma 7.2 g/dL 6.4-8.3 [facility] Sodium [Moles/volume] in Serum or Plasma 137 mmol/L 136-145 [facility] Aspartate aminotransferase [Enzymatic activity/volume] in Serum or Plasma 16 U/L <32 [facility] Urea nitrogen [Mass/volume] in Serum or Plasma 9 mg/dL 6-20 [facility] Osmolality of Serum or Plasma by calculation 281 mosm/kg 275-300 [facility] Creatinine/Urea nitrogen [Mass Ratio] in Serum or Plasma 12 [facility] Bicarbonate [Moles/volume] in Serum 26 mmol/L 22-29 [facility] Alanine aminotransferase [Enzymatic activity/volume] in Seru m or Plasma 7 U/L <33 [facility] Anion gap 3 in Serum or Plasma 9 mmol/L 8-15 [facility] Glomerular filtration rate/1.73 sq M pre dicted among non-blacks [Volume Rate/Area] in Serum or Plasma by Creatinine-based formula (MDRD) >6 0 [facility] Glomerular filtration rate/1.73 sq M pre dicted among blacks [Volume Rate/Area] in Serum or Plasma by Creatinine-based formula (MDRD) >60 [facility] ID Date Data Source [id number] 01/06/2020 10:10:43 AM [facility] Name Value Range Interpretation Code Description Data Corrie rce(s) Supporting Document(s) Lactate dehydrogenase [Enzymatic activit y/volume] in Serum or Plasma by Lactate to pyruvate reaction 146 U/L 122-214 [facility] ID Date Data Source [id number] 01/06/2020 11:41:03 AM [facility] Name Value Range Interpretation Code Description Data Corrie rce(s) Supporting Document(s) Leukocytes [#/volume] in Blood by Automated count 6.1 10*3/uL 4-10 [facility] Erythrocytes [#/volume] in Blood by Automated count 4.89 10*6/uL 4.1- 5.3 [facility] Hemoglobin [Mass/volume] in Blood 13.4 g/dL 11.5-15.5 [facility] Hematocrit [Volume Fraction] of Blood by Automated count 41.2 % 3 6-45 [facility] Erythrocyte mean corpuscular volume [Entitic volume] by Auto mated count 84.3 fL 80-96 [facility] Erythrocyte mean corpuscular hemoglobin [Entitic mass] by Automated count 27.5 pg 27-33 [facility] Erythrocyte mean corpuscular hemoglobin concentration [Mass/volume] by Automated count 32.6 g/dL 32.0-36.0 [facility] E[facility]th[facility] distribution width [Ratio] by Automated count 14.2 % 11.5-14.5 [facility] Platelets [#/volume] in Blood by Automated count 188 10*3/uL 150-400 [facility] Confirmed Differential cell count method - Blood [facility] Neutrophils/100 leukocytes in Blood by Automated count 66 % [facility] Lymphocytes/100 leukocytes in Blood by Automated count 30 % [facility] Monocytes/100 leukocytes in Blood by Automated count 3 % [facility] Basophils/100 leukocytes in Blood by Automated count 1 % [facility] Neutrophils [#/volume] in Blood by Automated count 4.06 10*3/uL 1.8-7 .0 [facility] Lymphocytes [#/volume] in Blood by Automated count 1.81 10*3/uL 1.2-4 .0 [facility] Monocytes [#/volume] in Blood by Automated count 0.20 10*3/uL 0-0.8 [facility] Basophils [#/volume] in Blood by Automated count 0.03 10*3/uL 0-0.2 [facility] ID Date Data Source [id number] 11/29/2019 02:42:20 AM EDT [facility] Name Value Range Interpretation Code Description Data Corrie rce(s) Supporting Document(s) Progress Note [facility] SWJLFv8uOmIKCmUl89/SMRuuZAHds6IjEDydLQb8ULloXGKvJ3KeHQZ8cF7lCEP7SQuLFrGzDsZpJYW5 lbm [file] JqHJzrGTVoTTt4Rnm8MOp4RDZdVAP6VZ3eLWIMSn9+SSvspDBmvTsfZFGEXhmeVkJWLzBaUE8FTId= ID Date Data Source [id number] 12/05/2019 01:05:00 AM EDT [facility] Name Value Range Interpretation Code Description Data Corrie rce(s) Supporting Document(s) Levetiracetam, S 20.6 ug/mL 10.0-40.0 [facility] This test was developed and its performa nce characteristicsdetermined by [facility]. It has not been cleared or approvedby the Food and Drug Administration. ID Date Data Source [id number] 11/06/2019 12:13:11 AM EDT [facility] Name Value Range Interpretation Code Description Data Corrie rce(s) Supporting Document(s) Progress Note [facility] CORHLw3xIwYWEaJh90/FRFuaFBByv4DvCThzSTd1CShfUGBmS5CyJSQ2rW1jNKG4HKiXLoTnMnBlHhTq lbm [file] /RBSztDLFAuB1Z8mlPcc8dx+zLXp/WEB DESIGNER DEVELOPER/s4Oag8FzEeMxAjgtFpnxMvsY73zkHCdkNfxgGiIQhue+rZl [file] hYeLvbGetqdLCNwDMKvi1qMP1CmLZMuJOrJjYzhd+aXlHa3WZSaAxlc9qdSGb00dN/3/Cap Inspector+xcs+M4h5m [file] BxY1QHU6DGjbKCCACr6S ID Date Data Source [id number] 11/05/2019 01:06:00 PM EDT [facility] ([facility] ) Name Value Range Interpretation Code Description Data Corrie rce(s) Supporting Document(s) Free T4 2.21 ng/dL 0.76-1.46 [facility] ([facility] ) Thyroid Stimulating Hormone Laboratory test result 0.358-3.740 [facility] ([facility]) ID Date Data Source [id number] 09/01/2019 08:30:00 AM EDT [facility] ([facility] ) Name Value Range Interpretation Code Description Data Corrie rce(s) Supporting Document(s) Thyroglobulin Ab [Units/volume] in Serum or Plasma Laboratory test re sult [facility] ([facility] ) ID Date Data Source [id number] 09/01/2019 08:30:00 AM EDT [facility] ([facility] ) Name Value Range Interpretation Code Description Data Corrie rce(s) Supporting Document(s) Thyroid Stimulating Hormone 5.420 uIU/ML 0.358-3.740 [facility] ([facility]) Free T4 0.82 ng/dL 0.76-1.46 [facility] ([facility]) ID Date Data Source [id number] 09/01/2019 08:30:00 AM EDT [facility] ([facility]) Name Value Range Interpretation Code Description Data Corrie rce(s) Supporting Document(s) Thyroperoxidase Ab [Units/volume] in Serum or Plasma 28.6 U/ML [facility] ([facility]) ID Date Data Source [id number] 08/08/2019 07:00:00 PM EDT [facility] Name Value Range Interpretation Code Description Data Corrie rce(s) Supporting Document(s) Progress Note [facility] XZMWCn0oWbMQIhEp99/ZMCwgETOni9UjMNbnJGk1SKtaQPVbS5CtAVD4wU5cXAR5YEtAFlMsTdMvFGPm [facility] [file] IAO3LSDDmelElBgjOarcmTCNlUTBlz9qGM5HlOVWuOExPdQmtw+qMdRd5AOXqLieq0ydTBj43pY/3/Cap Inspector [file] SP/MAP/T+care worker+5//NuKeSBI9C53gKxfHwCBy/iPqTWe [file] DUST SAMPLER+Bv0ZYISmYKe1H2S1NCKhSDs7U1OFS0UNFSHmRNyyMJffCZQxXMs6H7Y2CSUoZ2JUM9Twqlnieg2+ JQ7HM18KOKTwOTo7M1O0mSYfU3P6zLxGwBM7XO6NCG1NeXc1eBKdoF7+VM1KY0IUPjUmTJl3J0B2bDYm R2G8fPsGdNK7QE0UTV6GkLUsBYMhfmQyQd5iN7AXIM oQXrEIWFW3GI6CmVAmUT8NfRLAU1FimVHkBi8qWMocyVKovQ8wNx9qDFkzTZ2ZDqCSUNgYNHP7CI9HoR IwFY3QaMPAX5HkdHCzIy0vFLnvmRBzfh7+YK3KRQHoJi4OGt1+OBenxrIlVeaUJwQ9ELBzd4GoZZx5YJ 6GIF2meBcgGGG4Rl8DbDJ1cUYhA9lXHU8OsKPfE82l eUHeETFhIv8GSgC0pdTzrJ6YBE77tWMwx6G4ZMDeO1ydSJoeg85rZYdjULqBPQ4jQNWVLUrcVZsgWCN0 MaWjjcjmVEKpHt2BOvZeATj4xW3faKE4HXW1LtjuvDRhWGmvPsAgCpMvIfA0gTrnwom8PHpvEE9xBRdh czptZXRhLyc+AEwvECSgZJDoBckCVSKoaZ0imiW5xc VgQGqjwWYeJo1he8i4ZdtuOe3hYt7wRAj4UkQcJmQlOBIdDb7kyM44JQrhsfAhTz8GGxZnOPC5R9WjKd pSREY+TTzhWAzomZz2hUEbFJAcZl1LGLZrXXMhEJHuCTDlNQZxEGFrUORcHPWrZMPoIBLoJIQsEUVtNR AgICAgICAgICAgICAgICAgICAgICAgICAgICAgICAg KGLrFDPtRYFmDQPnPWZpVUPrBISiDSMxQUKoHYFqGO6ZPPYvTTGjXGPxODDwILRwOKGwXGUwNNOmPGRi ICAgICAgICAgICAgICAgICAgICAgICAgICAgICAgICAgICAgICAgICAgICAgICAgICAgICAgICAgICAg EHCwLRLmXYIhBQJwIW0BTWJuJCTfRSWsNTSeSQRhKS AgICAgICAgICAgICAgICAgICAgICAgICAgICAgICAgICAgICAgICAgICAgICAgICAgICAgICAgICAgIC WxCCIxODFeQLIyYHKtUUMmGKAfLBEiSC1CHXYkGDXsTFEiJKZaLTIaJZGjDBRqIAGjCTHsSVYnWJFaQM AgICAgICAgICAgICAgICAgICAgICAgICAgICAgICAg FTXfPHRzGIRbUDXvZSRyVHQnPFRqXRTfQBCjMVGhNZCbRW6RXEIoFILcBYSlNZKjSFGrOGDwKXDoQHJh ICAgICAgICAgICAgICAgICAgICAgICAgICAgICAgICAgICAgICAgICAgICAgICAgICAgICAgICAgICAg XOHxAZIhQIStGFSbTJBvBT7QDLUkSTLtWWNkLHQaPT AgICAgICAgICAgICAgICAgICAgICAgICAgICAgICAgICAgICAgICAgICAgICAgICAgICAgICAgICAgIC VdEITvIJTtJLUeFBJfWQJxKFKcDBFrZOZyPU8UUAKtOSDtYIPkWLMvBWSuVPAzMIEqQUQsVUPxRWAkSF AgICAgICAgICAgICAgICAgICAgICAgICAgICAgICAg ZLMvCSBaRCMgELNiTJIlWEYeYJOhEZUpZMMrRZXmJZKnOZSzLA1CFLPyEZXtANMkVZCuACYrSITeZGPb ICAgICAgICAgICAgICAgICAgICAgICAgICAgICAgICAgICAgICAgICAgICAgICAgICAgICAgICAgICAg NWDtHRDlJZWkPWUwOPYoBUJsHH0HQDMcLHGlFKMsRA AgICAgICAgICAgICAgICAgICAgICAgICAgICAgICAgICAgICAgICAgICAgICAgICAgICAgICAgICAgIC GcAZJkOAPxAQGrKMEoYQPpHIQmIGAsITFvNGUnSG5SNTEfOJBxVUHxTJOtTLBbUTKbSSLgDAThDTYdOV AgICAgICAgICAgICAgICAgICAgICAgICAgICAgICAg ZCBwLWHwKJUiAYWbWSPlAEOiGEAsIPHiRRIuAIOmUHYrACRfWWRwCR7RLX12fTDjt1U1PTGtSK6xvzl/ Ob6HGMbgddEhvFUbYL3BSgDeVA5hre9RFvOrSM1drh0IRAnVPzJzZ7Q9iNPkSEZzSXIGEmUmM33nQYzb Fs89TYnrBXSoXwWgEIv3Bb8JTxTcH4uxTRBaGkN4BV LjQoO2IFIlQhL1XDXjFvZkBHXkTZJgAJEaXVMWJFV6TETyLuKvSiZdAUQcRQklBOSZTQMlAVSdQeKiQR lyKR1Wj7GmlCX5OHl+Pw8FIC6dq3PeHQjcASPgAC9ecs4AVZoZMxJjI0GcggV4RDO1ZZFxWi1YDWLqCR QkrVJfSHHiEWTRUqTqZ0WbdQ68NYCDIf9+DQplbmRv CygLHnM2DTEan2ChQEa7XG2ISDIsXXl2wSEoZUUpU6Vfl1NvXc52CQZsFwcuDJavptoooI1sFAerb7Yb BB2MAFC3UKTdHkAeOdGdXIWkCShuEXBYHFhTXmZpX2Sdm0NsVxH5EZCsNwFeGCpvAJLwQcW6MR45cFnk MT3KNKRvUVUkXR13BVX4LKQhGa7KAn2XAjBtYT5tse 5CRPFmSMGkWblZMbh5JAonJS3HhEQxM5QkbSOpw6oSHyTzW7WHVBK9PGOaIi6ZNUVsPgMlYJLcACcbHJ 8nTPFlRAOAeJapfbM3XV7KZC3qmzJwBS8RJvFfHm4mNy4VLbYxG9VfC9SmWTSoUYMAIUfbQD9MWYegFZ 0cXM0Uf2HJwBNirK7rwm5SUFAbARMuAunjmf0EKrti Q3X6kQehXPLaQcyjUIWCUYsnOA0REVOmKVD7MVCtMcDmFBNHDhVnQ04kXX2KM0Ctg98pZwD0BIFxYjTg UBczFV91kTntonUxdCXkeZnqZE6SAh4+DQplbmRvYmoNCnhyZWYNCjAgNDENCjAwMDAwMDAwMDAgNjU1 XyKkSg4RELJmVPBqXAJhQsDjGGIxBRUdHOgcGVNxXF O5BdGgATEwDMOvTM5OVhRfCAEwPAueCTnhUBXjIDAbsr4BCSKmXPNrMWJ9YkEzVIXpSFHoGTkyVVVnLH Q1Nsg0DTTqAFSmUL6JCeMqERUkPDR5FKCmGPUuGPPihc2VXFGaMRYvTTL9VIViRTSyCZCrTOabGRVsNI R4Smk9JAKhFCPvOU0GApVqIQMySJOmImVbIYKoAOPi wc0BWUExYCIlCIN0CnLbHEJzUCUzNTphBRMiMQTyLVRuHQOaSZSmEY2VWhMoQFVuZOKmDuuvERNgNVTf id5OZMVvCIDjYcP0ZXPaIMVgLAOcJAzaHNYvRLU8GbV0UFJrSTJwTQ4IHbUsYUBrGeUrYJGpLJAnQCFv ne0UYHVlPOHdAVT7BvRhBIJgYKDnYOdyVPOuTCUoAv m1SSLvDAQnXE0RIvNsUFQsEyS9WZRjAYPeFUTswu2RKHFgBLYwNvZoGRXsARFjWEEzPGqgRXOxEYB1GC U6PRUeLSHxXA3MOhVfMKNzXzitFYUbIPLaGSTadi7UCJJrCEFpQBMsLLWmGFCtYIRwOFzfZABrBIWsRy SfBRVsIZTcQI1HRrJfJGVvJjK0XOaoQVBkBBMdsh6A MSJwMCUbCJo0OQIbDSGoPWDyOKmpAZBrVHMtKyb6RXKbSOUmMA6UHjQhQNNcCwM0HPRoYDRxPYXsbc2Z KVYuVRDtGrJ7JQNhPXOhZJHoAQqnUNTrKWJjMcMiNVXaSZNnVC1ZAvJkQJCrVCBcXyDbQPCjBBFrwg9I PYDhOSD8IpNuTlMoZJSnIKGdJRmbHFBuCLQdKUB3YI UaKLLnJM7TCaKrHSUkYUD5EEFnVCLiQQNbbk4IAELpZSL5HYzdGDXwLNUyHTTqAUtsHFQsWRU9OBWsYD PnDMIqCX4EZwGpPSYbOOPlWQDnBBKjKCYfqz9TGYWgRUK3DXqaULQpWKQrSQOjVSfdCUZwYOD6TfFuYM SePWMaYI0AYjVnRMIgYMwsQmJeSJVoECEidd2FJKUc YQK2DxEyEGXlCBXsWKZtIYu4gtDljIQzZKs3UG8UL2BvclFvTTJWMe5Az304CBOoFJKoPy9YK3aiIo8y EQLgEOYMHl7TQZg9XvKgGXZoZYfeKlftKELrOtHzBMO2YlLpM7W5KLpvQfn+AWq2QoU9RfLyYYCpVKL2 CZIoAlWbVwV2XnQtCII0QGPxYa6dGBYKAn3+LVsbdLThnBmnAMVFYgS5HbO0BRjdRUZYBs6E ID Date Data Source [id number] 04/26/2019 04:04:00 PM EST [facility] 1 OrderSheet [facility] Emergency Department [address] [place] [address] Phone #: ext- [phone] 04/26/2019 15:25 Patient: [...] R.N. Physician;CMP STAT 17:55 04/26/2019 17:58 Vamsi Sharif R.N. Physician;CPK STAT 17:55 04/26/2019 17:58 Vamsi Sharif R.N. Physician;Blood Culture STAT 17:55 04/26/2019 17:58 Kole,q10m X2 (Sched Vamsi Balderrama R.N.17:55 04/26/2019) Physician;Blood Culture STAT 17:55 04/26/2019 17:58 Kole,q10m X2 (Sched Vamsi Balderrama R.N.18:05 04/26/2019) Physician;DIAGNOSTIC STUDY ORDERS 2 OrderSheet [facility] Emergency Department [address] [place] [address] Phone #: ext- [phone] 04/26/2019 15:25 Patient: [...] rce(s) Supporting Document(s) ID Date Data Source [id number] 04/26/2019 04:04:00 PM EST [facility] 1 Medication Reconciliation Report [facility] Emergency Department [address] [place] [address] Phone #: ext- [phone] 04/26/2019 15:25 Patient: [...] to the patient:None. 2 Medication Reconciliation Report [facility] Emergency Department [address] [place] [address] Phone #: ext [phone] 04/26/2019 15:25 Patient: NERY WAN Sex: F : 1990 Age: 29y Name Value Range Interpretation Code Description Data Corrie rce(s) Supporting Document(s) ID Date Data Source [id number] 04/26/2019 04:04:00 PM [facility] 1 Medication Administration Record [facility] Emergency Department [address] [place] [address] Phone #: ext- [phone] 04/26/2019 15:25 Patient: NERY WAN Acct#: [id number] Sex: F : 1990 Age: 29yWeight: 74.8 kgHeight/Length: 64 inBMI: 28.3ALLERGIES: Ketamine, Latex, Fentanyl and RelatedDate/Time Medication Administered Medication Ordered Name Value Range Interpretation Code Description Data Corrie rce(s) Supporting Document(s) ID Date Data Source [id number] 04/26/2019 04:04:00 PM [facility] 1 General Instructions [facility] Emergency Department [address] [place] [address] Phone #: ext [phone] 04/26/2019 15:25 Patient: ENRY WAN Sex: F : 1990 Age: 29yMild pre-menopausal dysfunctional uterine bleeding. (Minimal).Vaginal discharge (Mild).INSTRUCTIONSDrink plenty of fluids.Warnings: GENERAL WARNINGS: Return or contact your physician immediately if your conditionworsens or changes unexpectedly, if not improving as expected, or if other problems arise.Follow- up:Follow up with a sow farm barn technician if not better. Call for an appointment. Reason for referral: evaluation,treatment and Dysfunction uterine bleeding / Cystitis / Bacterial vaginosis.Understanding of the discharge instructions verbalized by patient. ADDITIONAL INFORMATIONDysfunctional Uterine BleedingDysfunctional uterine bleeding, also called abnormal uterine bleeding, is a condition in which bleeding 2 General Instructions [facility] Emergency Department [address] [place] [address] Phone #: ext- [phone] 04/26/2019 15:25 Patient: NERY WAN Sex: F : 1990 Age: 29yis abnormal and occurs at unexpected times of the month. This happens because of changes in thehormones that help control a woman's menstrual cycle each month.The bleeding may be heavier or brush fabrication supervisor than normal. If you have heavy bleeding [...] better even with treatment 3 General Instructions [facility] Emergency Department [address] [place] [address] Phone #: ext- [phone] 04/26/2019 15:25 Patient: NERY WAN Sex: F : 1990 Age: 29y Fever of 100.4F (38C) or higher, or as directed by your provider Signs of anemia, such as pale skin, extreme fatigue or weakness, or shortness of breath Dizziness or fainting [id number] [employer] [address] [place] [address]. All rights re served. This information is [...] more than one partner 4 General Instructions [facility] Emergency Department [address] [place] [address] Phone #: ext- [phone] 04/26/2019 15:25 - Patient: NERY WAN Sex: [...] (STDs) Infection [facility] is most often treated with medicines [...] or cream you're prescribed. 5 General Instructions [facility] Emergency Department [address] [place] [address] Phone #: ext- [phone] 04/26/2019 15:25 Patient: NERY WAN Sex: F : 1990 Age: 29y You or any partners you have sex with have new symptoms, such as a rash, joint pain, or sores. [id number] [employer] [address] [place] [address]. All rights reserved. This information is not intended as asubstitute for professional medical care. Always follow your healthcare professional's instructions. You have been given the following additional information: Dysfunctional Uterine Bleeding Bacterial Vaginosis (BV)(Electronically signed by Vamsi Novoa, Physician 04/27/2019 08:06) Name Value Range Interpretation Code Description Data Corrie rce(s) Supporting Document(s) ID Date Data Source [id number] 04/26/2019 04:04:00 PM EST [facility] 1 Clinical Report - Nurses [facility] Emergency Department [address] [place] [address] Phone #: ext- [phone] 04/26/2019 15:25 Patient: NERY WAN Sex: F : 1990 Age: 29yTRIAGEArrived by private vehicle. Historian: patient.Acuity: LEVEL 3.Chief Complaint: VAGINAL BLEED and ABDOMINAL PAIN.Onset. (1 weeks ago). ( Pt states she was taken to [facility] 3 days ago for abdominal pain along with vaginalbleeding, she was worked up and told per her OBGYN that her bladder is 3 times larger than normal andhas bleeding outside of the bladder, she voices the vaginal bleeding continues today and voices 6 pads perhour).Treatment SENIOR CONSTRUCTION ESTIMATOR:Seen within the last 72 hours at another [...] Childers RN 2 Clinical Report - Nurses [facility] Emergency Department [address] [place] [address] Phone #: ext- [phone] 04/26/2019 15:25 Patient: [...] Childers RN.Interventions 3 Clinical Report - Nurses [facility] Emergency Department [address] [place] [address] Phone #: ext- [phone] 04/26/2019 15:25 Patient: NERY WAN Sex: F : 1990 Age: 29y To waiting room. --15:54 04/26/19 Wesley Childers RN.PHYSICAL [id number] 04/26/19. Ambulatory to room.GENERAL / NEURO / [...] Sheffield R.N. 18:15 04/26/19. Patient transported to [facility] by wheelchair with delivery technician. --18:15 04/26/19 Tacos Sharif R.N. 18:15 [...] Brakes of bed on. --18:16 04/26/19 Tacos Shairf R.N. 18:57 04/26/19. BP: 124/85. MAP: 98. HR: 108. RR: 16. O2 saturation: 98%. --18:57 04/26/19 [place] [id number] 19:03 04/26/19. [facility] with delivery technician. --19:18 04/26/19 Tacos Sharif R.N. Reassurance [...] / DISCHARGE 4 Clinical Report - Nurses [facility] Emergency Department [address] [place] [address] Phone #: ext- [phone] 04/26/2019 15:25 Patient: NERY WAN Sex: F [...] medication(s). Treatments reviewed. Reviewed referral to a sow [employer] barn technician and primary care physician. Patient verbalized understanding. Written instructions provided in [place]. The patient was discharged by the physician. [...] rce(s) Supporting Document(s) ID Date Data Source [id number] 04/26/2019 04:04:00 PM [facility] 1 Clinical Report - Physicians/Mid Levels [facility] Emergency Department [address] [place] [address] Phone #: ext- [phone] 04/26/2019 15:25 Patient: NERY WAN Sex: F [...] in the emergency department. ( seen at [facility] 3 days ago).REVIEW OF SYSTEMSNo nausea, vomiting, [...] air. 2 Clinical Report - Physicians/Mid Levels [facility] Emergency Department [address] [place] [address] Phone #: ext- [phone] 04/26/2019 15:25 Patient: NERY WAN Sex: F [...] Test Result Flag Units (Reference) [place] [address] ---------NAME--------- NUMBER SEX AGE ADMIT DISC. XRAY# F/C TYPE SOCO Wisdom [id number] F 29 04/26/19 [id number] XBE E/R DATE OF : 1990 M/R# [id number] #: [id number] VT-05 LOCATION: EMERGENCY DEPT TRANSCRIBED: 04/26/19 19:09 IF US TRANSVAGINAL [id number] COMPLETED:04/26/19 19:10 meme [id number] {REASON FOR PELVIS: irregular vaginal bleeding -- PHYSICIAN: JONN SCHAEFER -- -- R A D I O L O G Y R E P O R T -- PATIENT HISTORY: intermittent pelvic pain and irregular vaginal bleeding, , currently on exelon arm contraceptive device, h/o of hodgkins lymphoma [id number], w/bone marrow transplant in 2011 and remission since 2013 EXAM: US Pelvis, Complete. -- CLINICAL HISTORY: Intermittent pelvic pain and irregular vaginal bleeding, , currently on exelon arm contraceptive device, h/o of hodgkins lymphoma 5684-1219, w/bone marrow transplant in 2011 and remission since 2013 -- TECHNIQUE: Transvaginal pelvic ultrasound (complete) with image documentation. -- COMPARISON: Transabdominal pelvic ultrasound earlier the same day. -- -- FINDINGS: -- 3 Clinical Report - Physicians/[facility] Emergency Department [address] [place] [address] Phone #: ext- [phone] 04/26/2019 15:25 Patient: [...] ABD //T// PELV W/O ORAL W/[place] [address] ---------NAME--------- NUMBER SEX AGE ADMIT DISC. XRAY# F/C TYPE SOCO Wisdom [id number] F 29 04/26/19 [id number] XBE E/R DATE OF : 1990 M/R# [id number] #: [id number] VT-05 LOCATION: EMERGENCY DEPT TRANSCRIBED: 04/26/19 19:[address] ABD //T// PELV W/O ORAL W/[place] [id number] COMPLETED:04/26/19 19:15 meme [id number] Reason(s): Abdominal Pain Pelvic Pain PHYSICIAN: JONN [...] provided. FINDINGS: 4 Clinical Report - Physicians/Mid Levels [facility] Emergency Department [address] [place] [address] Phone #: ext- [phone] 04/26/2019 15:25 Patient: NERY WAN Sex: F [...] IV Contrast Only: (HUSSEIN: 04/26/2019 17:56) ( MsgRcvd 04/26/2019 18:08) CanceledReason(s): Abdominal PainReason(s): Abdominal PainTRANSPORTATION: WC IV? IV?(Yes) O2? Oxygen?(No) Ro: No CMTS: Hematuria / Pelvic painPTT: (HUSSEIN: 04/26/2019 18:05) ( MsgRcvd 04/26/2019 18:42) Final results Test Result Flag Units (Reference) PTT 26.1 SECONDS (24.8 - 36.7)PT/INR: (HUSSEIN: 04/26/2019 18:05) ( MsgRcvd 04/26/2019 18:42) Final results Test Result Flag Units (Reference) PROTIME 12.4 SECONDS (11.0 - 15.5) INR 0.91 L (0.93 - 1.23) 5 Clinical Report - Physicians/Mid [facility] Emergency Department [address] [place] [address] Phone #: ext- [phone] 04/26/2019 15:25 Patient: NERY WAN Sex: F : 1990 Age: 29y \\BLDo\\INR INTERPRETATION\\BLDx\\ Therapeutic range for Coumadin andrelated oral anticoagulants. -International Normalized Ratio (INR): 2.0 - 3.0 for VenousThrombosis, Pulmonary Embolus, Tissue heart valves, Acute CT, Atrial Fibrillation, Valvular heartdisease and recurrent Systemic [...] yrs 6 Clinical Report - Physicians/Mid Levels [facility] Emergency Department [address] [place] [address] Phone #: ext- [phone] 04/26/2019 15:25 Patient: NERY WAN Sex: F : 1990 Age: 29y NON-AA GFR >60 mL/min AFR AMER GFR >60 mL/min Male GFR Interprentation 20-49 yrs >60 mL/min [id number] yrs >56 mL/min Normal 60-69 yrs >49 mL/min Normal 70-79yrs>42 mL/min Normal 80 and above >35 mL/min Normal Female GFRInterpretation 20-39 yrs >60 mL/min Normal 40-49 yrs >58 mL/minNormal 50-59 yrs > 51 mL/min Normal 60-69 yrs >45 mL/min [id number] yrs >39 mL/min Normal 80 and above >32 mL/min NormalCPK: (HUSSEIN: 04/26/2019 18:05) ( MsgRcvd 04/26/2019 18:59) Final results Test Result Flag Units (Reference) CPK 58 U/L (30 - 170)US Pelvis: (HUSSEIN: 04/26/2019 17:55) ( MsgRcvd 04/26/2019 19:11) Final resultsUS PELVICReason(s): Abnormal BleedingTRANSPORTATION: WC IV? O2? Oxygen?(No) Room: ED: No Exam [facility] [address] [place] [address] ---------NAME--------- NUMBER SEX AGE ADMIT DISC. XRAY# F/C TYPE SOCO Wisdom [id number] F 29 04/26/19 [id number] XBE E/R DATE OF : 1990 M/R# [id number] #: [id number] VT-05 LOCATION: EMERGENCY DEPT TRANSCRIBED: 04/26/19 19:10 IF US PELVIC [id number] COMPLETED:04/26/19 19:11 meme [id number] Reason(s): Abnormal Bleeding PHYSICIAN: JONN BR R A D I O L O G Y R E P O R T PATIENT HISTORY: intermittent pelvic pain and irregular vaginal bleeding, , currently on exelon arm contraceptive device, h/o of hodgkins lymphoma [id number], w/bone marrow transplant in 2011 and remission since 2013 EXAM: US Pelvis, Complete. CLINICAL HISTORY: Intermittent pelvic pain and irregular vaginal bleeding, , currently on exelon arm contraceptive device, h/o of hodgkins lymphoma 8821-0882, w/bone marrow transplant in 2011 and remission since 2013 TECHNIQUE: Transabdominal pelvic ultrasound (complete) with image documentation. COMPARISON: None provided. FINDINGS: ENDOMETRIUM: Normal thickness. UTERUS/CERVIX: The uterus is not seen. RIGHT OVARY: Not seen LEFT OVARY: Not seen. FREE FLUID: No free fluid. Bladder: No filling defect or bladder wall mass. IMPRESSIONS: 7 Clinical Report - Physicians/Mid Levels [facility] Emergency Department [address] [place] [address] Phone #: ext- [phone] 04/26/2019 15:25 Patient: [...] - Mild constipation.).PROGRESS AND PROCEDURESCourse of Care: 19:Apr 26 2019. Patient is stable. Symptoms much better. 19:33 Apr 26 2019. Pt. already being treated for bacterial vaginosis by her sow farm barn technician and she is on an antibiotic. Labs [...] Discharged home in good and improved condition (19:37 Apr 26 2019). Condition: good.CLINICAL IMPRESSION Mild pre-menopausal dysfunctional uterine bleeding. (Minimal). Vaginal discharge (Mild). 8 Clinical Report - Physicians/Mid Levels [facility] Emergency Department [address] [place] [address] Phone #: ext- [phone] 04/26/2019 15:25 Patient: NERY WAN Sex: F : 1990 Age: 29yINSTRUCTIONS Drink plenty of fluids. Warnings: GENERAL WARNINGS: Return or contact your physician immediately if your condition worsens or changes unexpectedly, if not improving as expected, or if other problems arise. Follow-up: Follow up with a sow farm barn technician if not better. Call for an appointment. Reason for referral: evaluation, treatment and Dysfunction uterine bleeding / Cystitis / Bacterial vaginosis. Understanding of the discharge instructions verbalized by patient.(Electronically signed by Vamsi Novoa, Physician 04/27/2019 08:06) Name Value Range Interpretation Code Description Data Corrie rce(s) Supporting Document(s) ID Date Data Source [id number] 04/26/2019 08:43:00 PM [facility] [address] [place] [address] ---------NAME--------- NUMBER SEX AGE ADMIT DISC. XRAY# F/C TYPE SOCO NERY Wisdom [id number] F 29 04/26/19 [id number] XBE E/R DATE OF : 1990 M/R# [id number] PH#: [phone] VT-05 LOCATION: EMERGENCY DEPT TRANSCRIBED: 04/26/19 19:[address] ABD //T// PELV W/O ORAL W/[place] [id number] COMPLETED:04/26/19 19:15 meme [id number] Reason(s): Abdominal Pain Pelvic Pain PHYSICIAN: JONN [...] rce(s) Supporting Document(s) ID Date Data Source [id number] 04/26/2019 07:10:00 PM [facility] [address] [place] [address] ---------NAME--------- NUMBER SEX AGE ADMIT DISC. XRAY# F/C TYPE SOCO GABRIEL M [id number] F 29 04/26/19 [id number] XBE E/R DATE OF : 1990 M/R# [id number] #: [id number] VT-05 LOCATION: EMERGENCY DEPT TRANSCRIBED: 04/26/19 19:10 IF US PELVIC [id number] COMPLETED:04/26/19 19:11 meme [id number] Reason(s): Abnormal Bleeding PHYSICIAN: JONN BR======== R A D I O L O G Y R E P O R T =PATIENT HISTORY:intermittent pelvic pain and irregular vaginal bleeding, , currently onexelon arm contraceptive device, h/o of hodgkins lymphoma [id number], w/bonemarrow transplant in 2011 and remission since 2013EXAM: US Pelvis, Complete.CLINICAL HISTORY: Intermittent pelvic pain and irregular vaginal bleeding, ,currently on exelon arm contraceptive device, h/o of hodgkins [id number], w/bone marrow transplant in 2011 and remission [...] rce(s) Supporting Document(s) ID Date Data Source [id number] 04/26/2019 07:09:00 PM [facility] [address] [place] [address] ---------NAME--------- NUMBER SEX AGE ADMIT DISC. XRAY# F/C TYPE SOCO NERY Wisdom [id number] F 29 04/26/19 [id number] XBE E/R DATE OF : 1990 M/R# [id number] #: [id number] VT-05 LOCATION: EMERGENCY DEPT TRANSCRIBED: 04/26/19 19:09 IF US TRANSVAGINAL [id number] COMPLETED:04/26/19 19:10 meme [id number] {REASON FOR PELVIS: irregular vaginal bleeding PHYSICIAN: JONN BR = R A D I O L O G Y R E P O R T PATIENT HISTORY:intermittent pelvic pain and irregular vaginal bleeding, , currently onexelon arm contraceptive device, h/o of hodgkins lymphoma 9918-8058, w/bonemarrow transplant in 2011 and remission since 2013EXAM: US Pelvis, Complete.CLINICAL HISTORY: Intermittent pelvic pain and irregular vaginal bleeding, ,currently on exelon arm contraceptive device, h/o of hodgkins [id number], w/bone marrow transplant in 2011 and remission [...] rce(s) Supporting Document(s) ID Date Data Source [id number] 05/02/2019 11:39:00 AM [facility] [address] Name Value Range Interpretation Code Description Data Corrie rce(s) Supporting Document(s) Bacteria identified in Blood by Culture [facility] NO GROWTH AFTER 5 DAYS ID Date Data Source [id number] 05/02/2019 09:18:00 PM [facility] Name Value Range Interpretation Code Description Data Corrie rce(s) Supporting Document(s) CULTURE BLOOD [facility] _CULTURE BLOOD_ [place] [address] CLIA# [id number] SEE SCANNED REPORT{ PRELIM ID Date Data Source [id number] 05/02/2019 09:18:00 PM [facility] Name Value Range Interpretation Code Description Data Corrie rce(s) Supporting Document(s) CULTURE BLOOD [facility] _CULTURE BLOOD_ TEST PERFORM ED AT [address] [address] [facility]# [id number] SEE SCANNED REPORT{ PRELIM ID Date Data Source [id number] 04/26/2019 06:59:00 PM [facility] Name Value Range Interpretation Code Description Data Corrie rce(s) Supporting Document(s) Creatine kinase [Enzymatic activity/volume] in Serum or Plasma 5 8 U/L 30 - 170 [facility] ID Date Data Source [id number] 04/26/2019 06:59:00 PM [facility] Name Value Range Interpretation Code Description Data Corrie rce(s) Supporting Document(s) COMPREHENSIVE METABOLIC PANEL [facility] COMPREHENSIVE METABOLIC PANEL Sodium [Moles/volume] in Serum or Plasma 139 mEq/L 134 - 153 [facility] Potassium [Moles/volume] in Serum or Plasma 4.2 mEq/L 3.6 - 5.0 [facility] Chloride [Moles/volume] in Serum or Plasma 104 mEq/L 98 - 107 [facility] Carbon dioxide, total [Moles/volume] in Serum or Plasma 26 MEQ/L 22 - 30 [facility] Glucose [Mass/volume] in Serum or Plasma 86 MG/DL 65 - 110 [facility] BUN 19 MG/DL 7 - 21 [facility] al Creatinine [Mass/volume] in Serum or Plasma 0.9 MG/DL 0.7 - 1.5 [facility] BUN/CREAT 21 8 - 27 [facility] al Protein [Mass/volume] in Serum or Plasma 7.1 G/DL 6.3 - 8.2 [facility] Albumin [Mass/volume] in Serum or Plasma 4.5 G/DL 3.9 - 5.0 [facility] Globulin [Mass/volume] in Serum by calculation 2.6 GM/DL 2.4 - 3.2 [facility] A/G RATIO 1.7 0.8 - 2.0 [facility] Calcium [Mass/volume] in Serum or Plasma 9.6 MG/DL 8.4 - 10.2 [facility] Bilirubin.total [Mass/volume] in Serum or Plasma 0.7 MG/DL 0.2 - 1.3 [facility] Alkaline phosphatase [Enzymatic activity/volume] in Serum or Plasma 52 U/L 38 - 126 [facility] Aspartate aminotransferase [Enzymatic activity/volume] in Serum or Plasma 13 U/L 5 - 40 [facility] Alanine aminotransferase [Enzymatic activity/volume] in Seru m or Plasma 10 U/L 7 - 56 [facility] Anion gap 3 in Serum or Plasma 9.0 mmol/L 8.0 - 16.0 [facility] AGE 29 yrs [facility] NON-AA GFR >60 mL/min [facility] AFR AMER GFR >60 mL/min [facility] Male GFR In terprentation 20-49 [...] >32 mL/min Normal ID Date Data Source [id number] 04/26/2019 06:59:00 PM [facility] Name Value Range Interpretation Code Description Data Corrie rce(s) Supporting Document(s) Lipase [Enzymatic activity/volume] in Serum or Plasma 33 U/L 13 - 60 [facility] ID Date Data Source [id number] 04/26/2019 06:42:00 PM [facility] Name Value Range Interpretation Code Description Data Corrie rce(s) Supporting Document(s) aPTT in Blood by Coagulation assay 26.1 SECONDS 24.8 - 36.7 [facility] ID Date Data Source [id number] 04/26/2019 06:42:00 PM [facility] Name Value Range Interpretation Code Description Data Corrie rce(s) Supporting Document(s) Prothrombin time (PT) 12.4 SECONDS 11.0 - 15.5 [facility] INR in Platelet poor plasma by Coagulation assay 0.91 0.93 - 1. 23 L [facility] \\BLDo\\INR INTERPRETATION\\BLDx\\ Therapeutic range for Coumadin and related oral anticoagulants. - International Normalized Ratio (INR): 2.0 - 3.0 for Venous Thrombosis, Pulmonary Embolus, Tissue heart valves, Acute CT, Atrial Fibrillation, Valvular heart disease and recurrent Systemic Embolism. -International Normalized Ratio (INR): 2.5 - 3.5 for Mechanical Prosthetic valve. ID Date Data Source [id number] 04/26/2019 06:31:00 PM EST [facility] Name Value Range Interpretation Code Description Data Corrie rce(s) Supporting Document(s) CBC W/AUTOMATED DIFF [facility] COMPLETE BLOOD COUNT Leukocytes [#/volume] in Blood by Automated count 5.8 10^3/uL 4.2 - 1 1.0 [facility] Erythrocytes [#/volume] in Blood by Automated count 4.31 10^6/uL 4. 20 - 5.40 [facility] Hemoglobin [Mass/volume] in Blood 12.2 g/dL 12.0 - 16.0 [facility] Hematocrit [Volume Fraction] of Blood by Automated count 37.8 % 3 7.0 - 47.0 [facility] Erythrocyte mean corpuscular volume [Entitic volume] by Auto mated count 87.7 fL 81.0 - 101 [facility] Erythrocyte mean corpuscular hemoglobin [Entitic mass] by Automated count 28.3 pg 27.0 - 34.0 [facility] Erythrocyte mean corpuscular hemoglobin concentration [Mass/volume] by Automated count 32.3 g/dL 31.0 - 36.0 [facility] Erythrocyte distribution width [Ratio] by Automated count 12.1 % 11.5 - 14.5 [facility] Platelets [#/volume] in Blood by Automated count 195 10^3/uL 150 - 45 0 [facility] Platelet mean volume [Entitic volume] in Blood by Automated count 9.2 fL 7.4 - 10.4 [facility] Neutrophils/100 leukocytes in Blood by Automated count 56.2 % 37. 0 - 80.0 [facility] Lymphocytes/100 leukocytes in Blood by Manual count 36.0 % 25.0 - 40.0 [facility] Monocytes/100 leukocytes in Blood by Automated count 6.0 % 3.0 - 8.0 [facility] Eosinophils/100 leukocytes in Blood by Automated count 1.2 % 0.0 - 7.0 [facility] Basophils/100 leukocytes in Blood by Automated count 0.3 % 0.0 - 2.5 [facility] %IG 0.3 % 0.0 - 0.0 H [facility] al %NRBC 0.0 % 0.0 - 0.0 [facility] al Neutrophils [#/volume] in Blood by Automated count 3.28 10^3/uL 2.00 - 6.90 [facility] Lymphocytes [#/volume] in Blood by Automated count 2.10 10^3/uL 0.60 - 3.40 [facility] Monocytes [#/volume] in Blood by Automated count 0.35 10^3/uL 0.00 - 0.90 [facility] Eosinophils [#/volume] in Blood by Automated count 0.07 10^3/uL 0.00 - 0.70 [facility] Basophils [#/volume] in Blood by Automated count 0.02 10^3/uL 0.00 - 0.20 [facility] #IG 0.02 10^3/uL 0.00 - 0.10 [facility] #NRBC 0.00 10^3/uL 0.00 - 0.00 [facility] ospital MANUAL DIFF NOT INDICATED [facility] RBC MORPH NOT INDICATED [facility] spital ID Date Data Source [id number] 04/26/2019 05:32:00 PM EST [facility] Name Value Range Interpretation Code Description Data Corrie rce(s) Supporting Document(s) [facility] S[facility] Clean Catch [facility] ital COLOR yellow NORMAL: Yellow [facility] ospital CLARITY clear NORMAL: Clear [facility] Specific gravity of Urine by Test strip 1.030 1.001 - 1.030 [facility] pH 5 5 - 9 [facility] al Glucose [Mass/volume] in Urine by Test strip NORM NORMAL: Negat sy [facility] Bilirubin.total [Presence] in Urine by Test strip NEG NORMAL: Negative [facility] Ketones [Presence] in Urine by Test strip 5 NORMAL: Negative A [facility] Protein [Mass/volume] in Urine by Test strip 15 NORMAL: Negat sy [facility] Nitrite [Presence] in Urine by Test strip NEG NORMAL: Negative [facility] BLOOD 25 NORMAL: Negative A [facility] Leukocyte esterase [Presence] in Urine by Test strip 25 STORMY L: Negative [facility] Urobilinogen [Mass/volume] in Urine by Test strip NOR less sapphire n 1.0 mg/dL [facility] MICROSCOPIC See Below [facility] ital WBC 1 - 3 NORMAL: NONE SEEN [facility] Erythrocytes [#/volume] in Urine by Test strip 1 - 3 NORMAL: NON E SEEN [facility] EPITHELIAL FEW NORMAL: NONE SEEN [facility] Mucus [Presence] in Urine sediment by Light microscopy Trace NORMAL: NONE SEEN [facility] ID Date Data Source [id number] 04/25/2019 10:48:52 PM [facility] Name Value Range Interpretation Code Description Data Corrie rce(s) Supporting Document(s) Progress Note [facility] [id number] lbm [file] [id number] ID Date Data Source [id number] 04/25/2019 10:48:47 PM [facility] Name Value Range Interpretation Code Description Data Corrie rce(s) Supporting Document(s) Progress Note [facility] [id number] lbm [file] [id number] ID Date Data Source [id number] 04/22/2019 02:18:59 PM [facility] Name Value Range Interpretation Code Description Data Corrie rce(s) Supporting Document(s) Leukocytes [#/volume] in Blood by Automated count 6.9 10*3/uL 4-10 [facility] Erythrocytes [#/volume] in Blood by Automated count 4.88 10*6/uL 4.1- 5.3 [facility] Hemoglobin [Mass/volume] in Blood 14.1 g/dL 11.5-15.5 [facility] Hematocrit [Volume Fraction] of Blood by Automated count 42.9 % 3 6-45 [facility] Erythrocyte mean corpuscular volume [Entitic volume] by Auto mated count 88.0 fL 80-96 [facility] Erythrocyte mean corpuscular hemoglobin [Entitic mass] by Automated count 29.0 pg 27-33 [facility] Erythrocyte mean corpuscular hemoglobin concentration [Mass/volume] by Automated count 33.0 g/dL 32.0-36.0 [facility] distribution width [Ratio] by Automated count 13.1 % 11.5-14.5 [facility] Platelets [#/volume] in Blood by Automated count 234 10*3/uL 150-400 [facility] Differential cell count method - Blood [facility] Neutrophils/100 leukocytes in Blood by Automated count 71 % [facility] Lymphocytes/100 leukocytes in Blood by Automated count 22 % [facility] Monocytes/100 leukocytes in Blood by Automated count 5 % [facility] Eosinophils/100 leukocytes in Blood by Automated count 1 % [facility] Basophils/100 leukocytes in Blood by Automated count 1 % [facility] Neutrophils [#/volume] in Blood by Automated count 4.90 10*3/uL 1.8-7 .0 [facility] Lymphocytes [#/volume] in Blood by Automated count 1.54 10*3/uL 1.2-4 .0 [facility] Monocytes [#/volume] in Blood by Automated count 0.34 10*3/uL 0-0.8 [facility] Eosinophils [#/volume] in Blood by Automated count 0.06 10*3/uL 0-0.5 [facility] Basophils [#/volume] in Blood by Automated count 0.05 10*3/uL 0-0.2 [facility] Nucleated erythrocytes/100 leukocytes [Ratio] in Blood by Automated count 0 /100{WBCs} 0-0 [facility] ID Date Data Source [id number] 04/22/2019 03:10:46 PM [facility] Name Value Range Interpretation Code Description Data Corrie rce(s) Supporting Document(s) Lactate dehydrogenase [Enzymatic activit y/volume] in Serum or Plasma by Lactate to pyruvate reaction 172 U/L 122-214 [facility] ID Date Data Source [id number] 04/22/2019 03:10:46 PM [facility] Name Value Range Interpretation Code Description Data Corrie rce(s) Supporting Document(s) Albumin [Mass/volume] in Serum or Plasma by Bromocresol green (BCG) dye binding method 4.6 g/dL 3.5-5.2 [facility] Bilirubin.total [Mass/volume] in Serum or Plasma 0.3 mg/dL <1.2 [facility] Calcium [Mass/volume] in Serum or Plasma 9.2 mg/dL 8.6-10.0 [facility] Chloride [Moles/volume] in Serum or Plasma 102 mmol/L 98-107 [facility] Creatinine [Mass/volume] in Serum or Plasma 0.86 mg/dL 0.50-0.90 [facility] Glucose [Mass/volume] in Serum or Plasma 98 mg/dL 70-140 [facility] Alkaline phosphatase [Enzymatic activity/volume] in Serum or Plasma 59 U/L 35-104 [facility] Potassium [Moles/volume] in Serum or Plasma 4.1 mmol/L 3.4-5.1 [facility] Protein [Mass/volume] in Serum or Plasma 7.5 g/dL 6.4-8.3 [facility] Sodium [Moles/volume] in Serum or Plasma 139 mmol/L 136-145 [facility] Aspartate aminotransferase [Enzymatic activity/volume] in Serum or Plasma 15 U/L <32 [facility] Urea nitrogen [Mass/volume] in Serum or Plasma 17 mg/dL 6-20 [facility] Osmolality of Serum or Plasma by calculation 289 mosm/kg 275-300 [facility] Creatinine/Urea nitrogen [Mass Ratio] in Serum or Plasma 19 [facility] Bicarbonate [Moles/volume] in Serum 22 mmol/L 22-29 [facility] Alanine aminotransferase [Enzymatic activity/volume] in Seru m or Plasma 11 U/L <33 [facility] Anion gap 3 in Serum or Plasma 14 mmol/L 8-15 [facility] Albumin/Globulin [Mass Ratio] in Serum or Plasma 1.6 [facility] Glomerular filtration rate/1.73 sq M pre dicted among non-blacks [Volume Rate/Area] in Serum or Plasma by Creatinine-based formula (MDRD) >6 0 [facility] Glomerular filtration rate/1.73 sq M pre dicted among blacks [Volume Rate/Area] in Serum or Plasma by Creatinine-based formula (MDRD) >60 [facility] ID Date Data Source [id number] 03/13/2019 11:26:00 AM EST [facility] (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) Name Value Range Interpretation Code Description Data Corrie rce(s) Supporting Document(s) Appearance, Urine CLOUDY Above high normal MEDE NT ([place] 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) Color, Urine YELLOW MEDENT (Rivera Woma n [employer]IC[employer]URE INSTRUCTOR) PH,Urine 5.0 units 5.0-9.0 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 ([place]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) Protein, Urine Auto NEGATIVE mg/dL MEDEN T ([place] 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) Specific [place] Urine Auto 1.021 1.002-1.035 MEDENT ([place] 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) Glucose, Urine (Ua) Auto NEGATIVE mg/dL MEDENT ([place] 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) Urobilinogen, Urine Auto 0.2 mg/dL 0.0-2.0 MEDEN T ([place] 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) Ketone, Urine Auto NEGATIVE mg/dL MEDENT ([place] 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) Bilirubin, Urine Auto NEGATIVE MEDENT ( [place] 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) Nitrite, Urine Auto NEGATIVE MEDENT (Wi se 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) Leukocyte Esterase, Urine Auto 3+ Above high stormy l MEDENT ([place] 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) RBC, Urine Auto 6 /HPF 0-3 Above high normal MEDENT ([place]iver[place] 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) Blood, Urine Blood NEGATIVE MEDENT ([facility] 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) WBC, Urine Auto 11 /HPF 0-3 Above high normal MEDENT ([place] 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) Squamous Epithelial Cell Ur AU 16 /HPF 0-6 MEDENT ([place]ivera 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) Hyaline Cast, Urine Auto 0 /LPF 0-1 MEDEN T ([place] 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) Bacteria, Urine Auto 2+ Above high normal M EDENT (Miguel 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) ID Date Data Source [id number] 03/13/2019 11:26:00 AM EST MEDENT (Miguel 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) Name Value Range Interpretation Code Description Data Corrie rce(s) Supporting Document(s) Urine Culture Result NO GROWTH MEDENT (W ise 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) <External Comment eCWMed> FULL REPORT IN L <SEE NOTE> MEDENT (Miguel 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) FULL REPORT IN LAB NOTES (eCW and Medent ). Procedure Social History Code Duration Value Status Description Data Source(s ) Smoking 04/01/2020 12:00:00 AM EST Patient has never smoked co mpleted Patient has never smoked MEDENT ([facility], ) Smoking 03/27/2020 12:00:00 AM EST Never Smoker completed Never S moker [facility] Smoking 03/27/2020 12:00:00 AM EST Never Smoker completed Never S moker eCW1 ([facility]) Smoking 03/27/2020 12:00:00 AM EST Never Smoker completed Never S moker eCW1 ([facility]) Smoking 03/25/2020 12:00:00 AM EST Non-smoker, Non-drink er, Non-drug User completed Non-smoker, Non-drinker, Non-drug User MEDENT (Miguel Wo m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) Alcohol intake 03/18/2020 12:00:00 AM EST Ex-drinker (finding) comp leted Ex- drinker (finding) [facility] Tobacco use and exposure 03/18/2020 12:00:00 AM EST Never used co mpleted Never used [facility] Smoking 03/18/2020 12:00:00 AM EST Never smoker completed Never s [facility] Smoking 02/25/2020 12:00:00 AM EST Never Smoker completed Never S moker eCW1 ([facility]) Smoking 01/29/2020 06:23:00 PM EDT Denies Ever Smoked complete d Denies Ever Smoked [facility] Alcohol intake 01/25/2020 12:00:00 AM EDT Current non-d kumar of alcohol (finding) completed Current non-drinker of alcohol (finding) [facility] Smoking 01/20/2020 12:00:00 AM EDT Never Smoker completed Never S moker eCW1 ([facility]) Smoking 01/20/2020 12:00:00 AM EDT Never Smoker completed Never S moker eCW1 ([facility]) Smoking 01/20/2020 12:00:00 AM EDT Never Smoker completed Never S moker eCW1 ([facility]) Smoking 01/11/2020 12:00:00 AM EDT Unknown if ever smoked comp leted Unknown if ever smoked [facility] Alcohol intake 01/06/2020 12:00:00 AM EDT Current non-d kumar of alcohol (finding) completed Current non-drinker of alcohol (finding) [facility] Alcohol intake 11/05/2019 12:00:00 AM EDT Current non-d kumar of alcohol (finding) completed Current non-drinker of alcohol (finding) [facility] Smoking 11/05/2019 12:00:00 AM EDT Never smoker completed Never s [facility] Smoking 09/11/2019 12:00:00 AM EDT Never Smoked Cigarettes com pleted Never Smoked Cigarettes MEDENT ([facility]) Alcohol intake 08/07/2019 12:00:00 AM EDT Current non-d kumar of alcohol (finding) completed Current non-drinker of alcohol (finding) [facility] Smoking 08/07/2019 12:00:00 AM EDT Never smoker completed Never s [facility] Smoking 08/02/2019 12:00:00 AM EDT Never Smoker completed Never S moker eCW1 ([facility]) Smoking 08/02/2019 12:00:00 AM EDT Never Smoker completed Never S moker eCW1 ([facility]) Alcohol intake 04/25/2019 12:00:00 AM EST Current non-d kumar of alcohol (finding) completed Current non-drinker of alcohol (finding) [facility] Smoking 04/25/2019 12:00:00 AM EST Never smoker completed Never s [facility] Vital Signs ID Date Data Source UNK Name Value Range Interpretation Code Description Data Source(s) Body surface area Derived from formula 1.75 m2 1.75 m2 [facility] Body weight 69.854 kg 69.854 kg [facility] ([facility]) [place] body weight 120 [lb_av] 120 [lb_av] MEDEN T ([facility]) Body mass index (BMI) [Ratio] 26.4 kg/m2 26.4 k g/m2 [facility] Body weight 154.00 [lb_av] 154.00 [[facility]_av] [facility] Body height 64 [in_i] 64 [in_i] [facility] ([facility]) 5'4" Oxygen saturation in Arterial blood by Pulse oximetry 99 % 99 % [facility] ([facility]) Heart rate 103 /min 103 /min [facility] Diastolic blood pressure 80 mm[Hg] 80 mm[Hg] MEDENT ([facility]) Systolic blood pressure 120 mm[Hg] 120 mm[Hg] M EDENT ([facility]) Diastolic blood pressure 66 mm[Hg] 66 mm[Hg] eCW1 [facility] Systolic blood pressure 100 mm[Hg] 100 mm[Hg] e CW1 ([facility]) Body temperature 97.4 [degF] 97.4 [degF] eCW1 ( [facility]) Respiratory rate 18 /min 18 /min eCW1 ([facility]) Heart rate 111 /min 111 /min eCW1 ([facility]) Body mass index (BMI) [Ratio] 26.12 kg/m2 26.12 kg/m2 W1 ([facility]) Body height 65 [in_i] 65 [in_i] eCW1 ([facility]) Body weight 157 [lb_av] 157 [lb_av] eCW1 ([facility]) Diastolic blood pressure 66 mm[Hg] 66 mm[Hg] MEDENT ([place] 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) [place] body weight 120 [lb_av] 120 [lb_av] MEDEN T ([facility]) Body mass index (BMI) [Ratio] 26.7 kg/m2 26.7 k g/m2 [facility] ([facility]) Body weight 155.50 [lb_av] 155.50 [lb_av] [facility] Body height 64 [in_i] 64 [in_i] [facility] ([facility]) 5'4" Oxygen saturation in Arterial blood by Pulse oximetry 98 % 98 % [facility] ([facility]) Heart rate 89 /min 89 /min [facility] (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) Systolic blood pressure 116 mm[Hg] 116 mm[Hg] M [facility] (Rivera 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) Diastolic blood pressure 62 mm[Hg] 62 mm[Hg] eCW1 [facility] Systolic blood pressure 100 mm[Hg] 100 mm[Hg] e CW1 ([facility]) Body temperature 97.9 [degF] 97.9 [degF] eCW1 ( [facility]) Respiratory rate 18 /min 18 /min eCW1 ([facility]) Heart rate 106 /min 106 /min eCW1 ([facility]) Body mass index (BMI) [Ratio] 25.06 kg/m2 25.06 kg/m2 W1 ([facility]) Body height 65 [in_i] 65 [in_i] eCW1 ([facility]) Body weight 150.6 [lb_av] 150.6 [lb_av] eCW1 ([facility]) Diastolic blood pressure 60 mm[Hg] 60 mm[Hg] MEDENT (River[place] 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) Systolic blood pressure 106 mm[Hg] 106 mm[Hg] M EDENT ([place]iver[place] 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) Body temperature 36.8 shruthi Normal (applies to non-numeric results) 36.8 shurthi [facility] Respiratory rate 16 min Normal (applies to non-numeric results) 16 min [facility] Deprecated Oxygen saturation in Capillary blood by Oximetry 100 % Normal (applies to non-numeric results) 100 % [facility] Heart rate 99 min Normal (applies to non-numeric resul ts) 99 min [facility] Diastolic blood pressure 91 mm[Hg] Normal (applies to non-numeric results) 91 mm[Hg] [facility] Systolic blood pressure 140 mm[Hg] Normal (applies t o non-numeric results) 140 mm[Hg] [facility] Body mass index (BMI) [Ratio] 24.3 kg/m2 No rmal (applies to non-numeric results) 24.3 kg/m2 [facility] Body weight Measured 142 [lb_av] Normal (applies to n on-numeric results) 142 [lb_av] [facility] Body height 162.1536 cm Normal (applies to non-numeric res ults) 162.1536 cm [facility] Diastolic blood pressure 58 mm[Hg] 58 mm[Hg] eCW1 [facility]) Systolic blood pressure 96 mm[Hg] 96 mm[Hg] e CW1 ([facility]) Body temperature 96.8 [degF] 96.8 [degF] eCW1 ( [facility]) Respiratory rate 18 /min 18 /min eCW1 ([facility]) Heart rate 104 /min 104 /min eCW1 ([facility]) Body mass index (BMI) [Ratio] 25.62 kg/m2 25.62 kg/m2 W1 ([facility]) Body height 65 [in_i] 65 [in_i] eCW1 ([facility]) Body weight 154 [lb_av] 154 [lb_av] eCW1 ([facility]) Oxygen saturation in Arterial blood by Pulse oximetry 98 % 98 % MEDENT ([facility]) Body mass index (BMI) [Ratio] 28.2 kg/m2 28.2 k g/m2 MEDENT ([facility]) Body weight 172.38 [lb_av] 172.38 [lb_av] MEDEN T ([facility]) Body height 65.5 [in_i] 65.5 [in_i] MEDENT ([facility]) 5'5.50" Heart rate 112 /min 112 /min MEDENT ([facility]) Diastolic blood pressure 62 mm[Hg] 62 mm[Hg] MEDENT ([facility]) Systolic blood pressure 110 mm[Hg] 110 mm[Hg] M EDENT ([facility]) Oxygen saturation in Arterial blood by Pulse oximetry 96 % 96 % MEDENT ([facility]) Body mass index (BMI) [Ratio] 28.4 kg/m2 28.4 k g/m2 MEDENT ([facility]) Body weight 173.38 [lb_av] 173.38 [lb_av] MEDEN T ([facility]) Body height 65.5 [in_i] 65.5 [in_i] MEDENT ([facility]) 5'5.50" Heart rate 103 /min 103 /min MEDENT ([facility]) Diastolic blood pressure 68 mm[Hg] 68 mm[Hg] MEDENT ([facility]) Systolic blood pressure 110 mm[Hg] 110 mm[Hg] M EDENT ([facility]) Diastolic blood pressure 78 mm[Hg] 78 mm[Hg] eCW1 [facility]) Systolic blood pressure 122 mm[Hg] 122 mm[Hg] e CW1 ([facility]) Body temperature 99.3 [degF] 99.3 [degF] eCW1 ( [facility]) Heart rate 104 /min 104 /min eCW1 ([facility]) Body mass index (BMI) [Ratio] 29.62 kg/m2 29.62 kg/m2 eCW1 ([facility]) Body height 65 [in_us] 65 [in_us] eCW1 ([facility]) Body weight Measured 178 [lb_av] 178 [lb_av] eC W1 ([facility]) Diastolic blood pressure 68 mm[Hg] 68 mm[Hg] MEDENT ([place] 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) Systolic blood pressure 108 mm[Hg] 108 mm[Hg] M EDENT ([place] 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) Diastolic blood pressure 72 mm[Hg] 72 mm[Hg] MEDENT ([place] 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) Systolic blood pressure 112 mm[Hg] 112 mm[Hg] M EDENT ([place] 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) Diastolic blood pressure 62 mm[Hg] 62 mm[Hg] eCW1 ([facility]) Systolic blood pressure 118 mm[Hg] 118 mm[Hg] e CW1 ([facility]) Body temperature 97 [degF] 97 [degF] eCW1 ([facility]) Respiratory rate 18 /min 18 /min eCW1 ([facility]) Heart rate 110 /min 110 /min eCW1 ([facility]) Body mass index (BMI) [Ratio] 28.95 kg/m2 28.95 kg/m2 eCW1 ([facility]) Body height 65 [in_us] 65 [in_us] eCW1 ([facility]) Body weight Measured 174 [lb_av] 174 [lb_av] eC W1 ([facility]) Diastolic blood pressure 64 mm[Hg] 64 mm[Hg] MEDENT ([place]iver[place] 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) Systolic blood pressure 116 mm[Hg] 116 mm[Hg] M EDENT ([place]iver[place] 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) Diastolic blood pressure 70 mm[Hg] 70 mm[Hg] eCW1 ([facility]) Systolic blood pressure 120 mm[Hg] 120 mm[Hg] e CW1 ([facility]) Body temperature 97.7 [degF] 97.7 [degF] eCW1 ( [facility]) Respiratory rate 18 /min 18 /min eCW1 ([facility]) Heart rate 101 /min 101 /min eCW1 ([facility]) Body mass index (BMI) [Ratio] 27.95 kg/m2 27.95 kg/m2 eCW1 ([facility]) Body height 65 [in_us] 65 [in_us] eCW1 ([facility]) Body weight Measured 168 [lb_av] 168 [lb_av] eC W1 ([facility]) Diastolic blood pressure 70 mm[Hg] 70 mm[Hg] MEDENT (Miguel 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) Systolic blood pressure 100 mm[Hg] 100 mm[Hg] M EDENT (Miguel 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) ID Date Data Source [id number] 03/30/2020 01:33:45 AM [facility] Name Value Range Interpretation Code Description Data Source(s) Body height Measured 64.5 in 64.5 in [facility] ID Date Data Source [id number] [facility] Range Interpretation Code Description Data Source(s) TRANSFER FROM [facility] ID Date Data Source [id number] [facility] Name Value Range Interpretation Code Description Data Source(s) WEIGHT RECORDED [address] [facility] Body height Measured 67.99 in 67.99 in [facility] ID Date Data Source [id number] 01/16/2020 01:09:59 AM [facility] Value Range Interpretation Code Description Data Source(s) Body height Measured 67.99 in 67.99 in [facility] WEIGHT RECORDED 180.[address] [facility] ID Date Data Source [id number] 01/18/2020 08:29:15 AM [facility] Name Value Range Interpretation Code Description Data Source(s) WEIGHT RECORDED 159.[address] [facility] ID Date Data Source [id number] 11/06/2019 12:13:11 AM [facility] Name Value Range Interpretation Code Description Data Source(s) WEIGHT RECORDED [address] [facility] Body height Measured 64.5 in 64.5 in [facility] ID Date Data Source [id number] [facility] Name Value Range Interpretation Code Description Data Source(s) WEIGHT RECORDED [address] [facility] ID Date Data Source [id number] 04/25/2019 10:48:52 PM [facility] Name Value Range Interpretation Code Description Data Source(s) WEIGHT RECORDED 170.[address] [facility] Patient Treatment Plan of Care Planned Activity Planned Date Details Description Data Source (s) lamotrigine 200 MG Oral Tablet 03/18/2020 12:00:00 AM [facility] Levetiracetam 750 MG Oral Tablet 03/18/2020 12:00:00 AM [facility] POLYETHYLENE GLYCOL 3350 142 MG/ML Oral Solution 02/21/2020 12:00:0 0 AM [facility] Acetaminophen 325 MG / Oxycodone Hydrochloride 5 MG Or al Tablet 02/20/2020 12:00:00 AM [facility]spital NITROFURANTOIN, MACROCRYSTALS 25 MG / Ni trofurantoin, Monohydrate 75 MG Oral Capsule 02/20/2020 12:00:00 AM [facility] Acetaminophen 325 MG / Hydrocodone Bitartrate 5 MG Ora l Tablet 02/14/2020 12:00:00 AM [facility] ospital Magnesium Hydroxide 80 MG/ML Oral Suspension 01/13/2020 10:00:00 PM [facility] Bisacodyl 10 MG Rectal Suppository 01/13/2020 07:45:55 AM [facility] sennoside, FCI 8.6 MG Oral Tablet 01/13/2020 07:45:55 AM [facility], [facility] 35.2 MG/ML Oral Solution 01/13/2020 07:45:55 AM [facility] ondansetron (ZOFRAN) 4 MG/2ML injection 01/11/2020 08:06:55 PM [facility] Levothyroxine Sodium 0.2 MG Oral Tablet [Synthroid] 10/07/19 12:00:00 AM [facility] Levetiracetam 750 MG Oral Tablet 08/07/2019 12:00:00 AM [facility] lamotrigine 200 MG Oral Tablet 08/07/2019 12:00:00 AM [facility] Levothyroxine Sodium 0.175 MG Oral Tablet 05/30/2019 12:00:00 AM SARAH Castorena eCW1 ([facility] Levothyroxine Sodium 0.15 MG Oral Tablet 03/26/2019 12:00:00 AM EST eCW1 ([facility]) Levetiracetam 750 MG Oral Tablet 10/08/2018 12:00:00 AM T [facility] lamotrigine 200 MG Oral Tablet 10/08/2018 12:00:00 AM [facility] gabapentin 100 MG Oral Capsule [facility] Amitriptyline Hydrochloride 25 MG Oral Tablet [facility] Levetiracetam 750 MG Oral Tablet [facility] lamotrigine 200 MG Oral Tablet [facility] Levothyroxine Sodium 0.112 MG Oral Tablet [facility]
[2020-04-29 21:37] LABS: BASO % 0.3 % (0.0-1.0); EOS % 0.3 % (0.0-3.0); HEMATOCRIT 40.2 % (36.0-47.0); HEMOGLOBIN 12.9 g/dl (12.0-15.5); MEAN CORPUSCULAR HEMOGLOBIN 27.4 pg (27.0-33.0); MEAN CORPUSCULAR HGB CONC 32.1 g/dl (32.0-36.5); MEAN CORPUSCULAR VOLUME 85.5 fl (80.0-96.0); MONO # 0.6 10^3/uL (0.0-0.8); MONO % 5.3 % (0.0-5.0); NEUTROPHILS # 8.4 10^3/uL (1.5-8.5); NEUTROPHILS % 75.8 % (36.0-66.0); PLATELET COUNT, AUTOMATED 253 10^3/uL (150-450)
--- OUTSIDE RECORDS SUMMARY | 2020-04-29 21:40 | CCD ---
Author Author [facility] Organization [facility] Address Unknown Phone Unavailable Care Team Providers Care Textile Examiner Name Role Phone Palak Seymour MD Unavailable [...] Cid Sandoval Gene MD Unavailable Unavailabl e Adwn, Cid Sandoval Gene MD Unavailable Unavailabl e [...] MD Unavailable Unavailable JOSE, ABILIO ROSA MARIA MASTERCAM PROGRAMMER-C Unavailable Unavailable JOSE, ABILIO ROSA MARIA MASTERCAM PROGRAMMER-C Unavailable Unavailable JOSE, ABILIO ROSA MARIA MASTERCAM PROGRAMMER-C Unavailable Unavailable JOSE, ABILIO ROSA MARIA MASTERCAM PROGRAMMER-C Unavailable Unavailable JOSE, ABILIO ROSA MARIA MASTERCAM PROGRAMMER-C Unavailable Unavailable JOSE, ABILIO ROSA MARIA MASTERCAM PROGRAMMER-C Unavailable Unavailable JOSE, ABILIO ROSA MARIA MASTERCAM PROGRAMMER-C Unavailable Unavailable JOSE, ABILIO ROSA MARIA MASTERCAM PROGRAMMER-C Unavailable Unavailable JOSE, ABILIO ROSA MARIA MASTERCAM PROGRAMMER-C Unavailable Unavailable JOSE, ABILIO ROSA MARIA MASTERCAM PROGRAMMER-C Unavailable Unavailable JOSE, ABILIO ROSA MARIA MASTERCAM PROGRAMMER-C Unavailable Unavailable JOSE, ABILIO ROSA MARIA MASTERCAM PROGRAMMER-C Unavailable Unavailable JOSE, ABILIO ROSA MARIA MASTERCAM PROGRAMMER-C Unavailable Unavailable JOSE, ABILIO ROSA MARIA MASTERCAM PROGRAMMER-C Unavailable Unavailable JOSE, ABILIO ROSA MARIA MASTERCAM PROGRAMMER-C Unavailable Unavailable [place], Artis Dyer PA-C Unavailable Unavailable [place], M Manisha PA-C Unavailable Unavailable [place], M Manisha PA-C Unavailable Unavailable COOK, B BOO SOCIAL INSURANCE SPECIALIST Unavailable Unavailable COOK, B BOO SOCIAL INSURANCE SPECIALIST Unavailable Unavailable COOK, B BOO SOCIAL INSURANCE SPECIALIST Unavailable Unavailable COOK, B BOO SOCIAL INSURANCE SPECIALIST Unavailable Unavailable COOK, B BOO SOCIAL INSURANCE SPECIALIST Unavailable Unavailable COOK, B BOO SOCIAL INSURANCE SPECIALIST Unavailable Unavailable COOK, B BOO SOCIAL INSURANCE SPECIALIST Unavailable Unavailable COOK, B BOO SOCIAL INSURANCE SPECIALIST Unavailable Unavailable COOK, B BOO SOCIAL INSURANCE SPECIALIST Unavailable Unavailable COOK, B BOO SOCIAL INSURANCE SPECIALIST Unavailable Unavailable COOK, B BOO SOCIAL INSURANCE SPECIALIST Unavailable Unavailable COOK, B BOO SOCIAL INSURANCE SPECIALIST Unavailable Unavailable COOK, B BOO SOCIAL INSURANCE SPECIALIST Unavailable Unavailable COOK, B BOO SOCIAL INSURANCE SPECIALIST Unavailable Unavailable COOK, B BOO SOCIAL INSURANCE SPECIALIST Unavailable Unavailable COOK, B BOO SOCIAL INSURANCE SPECIALIST Unavailable Unavailable COOK, B BOO SOCIAL INSURANCE SPECIALIST Unavailable Unavailable COOK, B BOO SOCIAL INSURANCE SPECIALIST Unavailable Unavailable COOK, B BOO SOCIAL INSURANCE SPECIALIST Unavailable Unavailable COOK, B BOO SOCIAL INSURANCE SPECIALIST Unavailable Unavailable COOK, B BOO SOCIAL INSURANCE SPECIALIST Unavailable Unavailable COOK, B BOO SOCIAL INSURANCE SPECIALIST Unavailable Unavailable COOK, B BOO SOCIAL INSURANCE SPECIALIST Unavailable Unavailable COOK, B BOO SOCIAL INSURANCE SPECIALIST Unavailable Unavailable COOK, B BOO SOCIAL INSURANCE SPECIALIST Unavailable Unavailable COOK, B BOO SOCIAL INSURANCE SPECIALIST Unavailable Unavailable COOK, B BOO SOCIAL INSURANCE SPECIALIST Unavailable Unavailable COOK, B BOO SOCIAL INSURANCE SPECIALIST Unavailable Unavailable COOK, B BOO SOCIAL INSURANCE SPECIALIST Unavailable Unavailable COOK, B BOO SOCIAL INSURANCE SPECIALIST Unavailable Unavailable COOK, B BOO SOCIAL INSURANCE SPECIALIST Unavailable Unavailable COOK, B BOO SOCIAL INSURANCE SPECIALIST Unavailable Unavailable COOK, B BOO SOCIAL INSURANCE SPECIALIST Unavailable Unavailable COOK, B BOO SOCIAL INSURANCE SPECIALIST Unavailable Unavailable COOK, B BOO SOCIAL INSURANCE SPECIALIST Unavailable Unavailable COOK, B BOO SOCIAL INSURANCE SPECIALIST Unavailable Unavailable COOK, B BOO SOCIAL INSURANCE SPECIALIST Unavailable Unavailable COOK, B BOO SOCIAL INSURANCE SPECIALIST Unavailable Unavailable COOK, B BOO SOCIAL INSURANCE SPECIALIST Unavailable Unavailable COOK, B BOO SOCIAL INSURANCE SPECIALIST Unavailable Unavailable COOK, B BOO SOCIAL INSURANCE SPECIALIST Unavailable Unavailable COOK, B BOO SOCIAL INSURANCE SPECIALIST Unavailable Unavailable COOK, B BOO SOCIAL INSURANCE SPECIALIST Unavailable Unavailable COOK, B BOO SOCIAL INSURANCE SPECIALIST Unavailable Unavailable COOK, B BOO SOCIAL INSURANCE SPECIALIST Unavailable Unavailable COOK, B BOO SOCIAL INSURANCE SPECIALIST Unavailable Unavailable COOK, B BOO SOCIAL INSURANCE SPECIALIST Unavailable Unavailable COOK, B BOO SOCIAL INSURANCE SPECIALIST Unavailable Unavailable COOK, B BOO SOCIAL INSURANCE SPECIALIST Unavailable Unavailable COOK, B BOO SOCIAL INSURANCE SPECIALIST Unavailable Unavailable COOK, B BOO SOCIAL INSURANCE SPECIALIST Unavailable Unavailable COOK, B BOO SOCIAL INSURANCE SPECIALIST Unavailable Unavailable COOK, B BOO SOCIAL INSURANCE SPECIALIST Unavailable Unavailable COOK, B BOO SOCIAL INSURANCE SPECIALIST Unavailable Unavailable COOK, B BOO SOCIAL INSURANCE SPECIALIST Unavailable Unavailable COOK, B BOO SOCIAL INSURANCE SPECIALIST Unavailable Unavailable COOK, B BOO SOCIAL INSURANCE SPECIALIST Unavailable Unavailable COOK, B BOO SOCIAL INSURANCE SPECIALIST Unavailable Unavailable COOK, B BOO SOCIAL INSURANCE SPECIALIST Unavailable Unavailable COOK, B BOO SOCIAL INSURANCE SPECIALIST Unavailable Unavailable COOK, B BOO SOCIAL INSURANCE SPECIALIST Unavailable Unavailable COOK, B BOO SOCIAL INSURANCE SPECIALIST Unavailable Unavailable COOK, B BOO SOCIAL INSURANCE SPECIALIST Unavailable Unavailable IGOR, M CASTRO SOCIAL INSURANCE SPECIALIST Unavailable Unavailable IGOR, M CASTRO SOCIAL INSURANCE SPECIALIST Unavailable Unavailable IGOR, M CASTRO SOCIAL INSURANCE SPECIALIST Unavailable Unavailable IGOR, M CASTRO SOCIAL INSURANCE SPECIALIST Unavailable Unavailable IGOR, M CASTRO SOCIAL INSURANCE SPECIALIST Unavailable Unavailable IGOR, M CASTRO SOCIAL INSURANCE SPECIALIST Unavailable Unavailable IGOR, M CASTRO SOCIAL INSURANCE SPECIALIST Unavailable Unavailable IGOR, M CASTRO SOCIAL INSURANCE SPECIALIST Unavailable Unavailable IGOR, M CASTRO SOCIAL INSURANCE SPECIALIST Unavailable Unavailable IGOR, M CASTRO SOCIAL INSURANCE SPECIALIST Unavailable Unavailable IGOR, M CASTRO SOCIAL INSURANCE SPECIALIST Unavailable Unavailable IGOR, M CASTRO SOCIAL INSURANCE SPECIALIST Unavailable Unavailable IGOR, M CASTRO SOCIAL INSURANCE SPECIALIST Unavailable Unavailable IGOR, M CASTRO SOCIAL INSURANCE SPECIALIST Unavailable Unavailable IGOR, M CASTRO SOCIAL INSURANCE SPECIALIST Unavailable Unavailable IGOR, M CASTRO SOCIAL INSURANCE SPECIALIST Unavailable Unavailable IGOR, M CASTRO SOCIAL INSURANCE SPECIALIST Unavailable Unavailable IGOR, M CASTRO SOCIAL INSURANCE SPECIALIST Unavailable Unavailable IGOR, M CASTRO SOCIAL INSURANCE SPECIALIST Unavailable Unavailable IGOR, M CASTRO SOCIAL INSURANCE SPECIALIST Unavailable Unavailable IGOR, M CASTRO SOCIAL INSURANCE SPECIALIST Unavailable Unavailable IGOR, M CASTRO SOCIAL INSURANCE SPECIALIST Unavailable Unavailable IGOR, M CASTRO SOCIAL INSURANCE SPECIALIST Unavailable Unavailable IGOR, M CASTRO SOCIAL INSURANCE SPECIALIST Unavailable Unavailable IGOR, M CASTRO SOCIAL INSURANCE SPECIALIST Unavailable Unavailable IGOR, M CASTRO SOCIAL INSURANCE SPECIALIST Unavailable Unavailable IGOR, M CASTRO SOCIAL INSURANCE SPECIALIST Unavailable Unavailable IGOR, M CASTRO SOCIAL INSURANCE SPECIALIST Unavailable Unavailable IGOR, M CASTRO SOCIAL INSURANCE SPECIALIST Unavailable Unavailable IGOR, M CASTRO SOCIAL INSURANCE SPECIALIST Unavailable Unavailable IGOR, M CASTRO SOCIAL INSURANCE SPECIALIST Unavailable Unavailable IGOR, M CASTRO SOCIAL INSURANCE SPECIALIST Unavailable Unavailable Quezada, Xiangping Unavailable Unavailable Quezada, [...] BAKER, L ELODIA ARENAS Unavailable Unavailable BAKER, Foina CLIFTON MD Unavailable Unavailable BAKER, L ELODIA [...] Unavailable Artis FONTENOT MD Unavailable Unavailable Artis FONTEONT MD Unavailable Unavailable Artis FONTENOT MD Unavailable [...] Unavailable Unavailable TURRIN, MANUELITO Unavailable Unavailable TURRIN, AMNUELITO Unavailable Unavailable MARK, JESSEE Unavailable Unavailable James [...] is protected by Article 27-F of the [facility] Public Health law. If you continue you may have access to information: Regarding HIV / AIDS; Provided by facilities licensed or operated by the [facility] Office of Mental Health; or Provided by the [facility] Office for People With Developmental Disabilities. If such information is present, then the following [facility] mandated warning applies: This information has been [...] law may result in a fine or penitentiary sentence or both. A general authorization for the release of medical or other information is NOT sufficient authorization for further disc losure. Allergies and Adverse Reactions Type Description Substance Reaction Status Data Source(s ) No Known Food Allergies No Known Food Allergies [facility] Drug allergy NOSE SPRAY NOSE SPRAY [facility] Drug allergy CT CONTRAST CT CONTRAST ANAPHYLAXIS [facility] CLASS CONTRAST MEDIA, IODINE RELATED CONTRAST MEDIA, I ODINE RELATED ANAPHYLAXIS [facility] BRANDNAME FENTANYL TRANSDERMAL SYSTEM FENTANYL TRANSDERMAL SYSTEM HI VES [facility] ENVIRONMENTAL LATEX LATEX [facility] Drug Class NO KNOWN ALLERGIES NO KNOWN ALLERGIES [facility] Drug allergy Fentanyl Fentanyl seizures Active eCW1 ([facility]) CT dye, contrast CT dye, contrast CT dye, contrast Anaphylaxis Acti ve eCW1 ([facility]) latex latex latex Anaphylaxis Active eCW1 ([facility]) latex latex latex Anaphylaxis Active eCW1 ([facility]) CT dye, contrast CT dye, contrast CT dye, contrast Anaphylaxis Acti ve eCW1 ([facility]) CT dye, contrast CT dye, contrast CT dye, contrast Anaphylaxis Acti ve eCW1 ([facility]) latex latex latex Anaphylaxis Active eCW1 ([facility]) Family History Family Member Name Family Member Gender Family Member Status Date o f Status Description Data Source(s) Unknown Female Problem MEDENT ([facility]) Encounters Encounter Providers Location Date Indications Data Source(s ) Outpatient Attender: NOELLE FONTENOT MD 01/11/2021 12:00:00 AM [facility] Unknown [address] [facility] [address] 04/28/2020 12:00:00 AM EST eCW1 ([facility]) Outpatient Attender: NOELLE FONTENOT MD 04/27/2020 12:00:00 AM [facility] Unknown [address] [facility] [facility] [address] 04/20/2020 12:00:00 AM EST eCW1 ([facility]) Outpatient [address] [facility] [facility] [address] 03/26/2020 12:00:00 AM EST eCW1 ([facility]) Outpatient Attender: Mariano Quezada [id number] 12:00:00 AM EST - 03/18/2020 08:34:34 AM EST 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, not intractable, without status epilepticus [facility] 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, not intractable, without status epilepticus Outpatient Attender: ROSA MARIA Kaye/Sindhu/Ron/Juwan hassan 03/03/2020 12:15:00 PM EST MEDENT ([facility]) Office Visit Attender: ELODIA Rivera Woman jawbone puller 02/2020 09:00:00 AM EST [facility] ([facility] Out[place] [address] [facility] [address] 02/25/2020 12:00:00 AM EST eCW1 ([facility]) Office Visit Attender: ELODIA Rivera Woman jawbone puller 07/2019 02:00:00 PM EST [facility] ([facility]) [place] [address] [facility] [facility] [address] 02/19/2020 12:00:00 AM EST eCW1 ([facility]) Outpatient Attender: ELODIA Rivera Woman jawbone puller 11:15:00 AM EDT MED[facility] ([facility]) Emergency Attender: JESSEE MARKAttender: ER PHYSICIAN 01/29/2020 01:38:00 PM EDT - 01/29/2020 06:59:00 PM EDT ABDOMINAL PAIN AND SEIZURES [facility] ABDOMINAL PAIN AND SEIZURES Patient discharged. Outpatient Referrer: VAMSI NOVOA MD 01/29/2020 10: 36:00 AM EDT seizure disorder [facility] seizure disorder Emergency Attender: MANUELITO CARVAJALConsultant: Nargis marte MD 01/29/2020 06:03:00 AM EDT - 01/29/2020 11:59:00 AM EDT [facility] Patient discharged. Outpatient Attender: Manisha Conrad PA-C CMP Internal Med a t [place] 01/29/2020 03:53:00 AM EDT MEDENT ([facility]) Outpatient Attender: Mariano Quezada [id number] 020 12:00:00 AM EDT - 01/28/2020 12:03:03 PM T [facility] Unknown [address] [facility] [facility] [address] 01/24/2020 12:00:00 AM EDT eCW1 ([facility]) Outpatient [address] [facility] [facility] [address] 01/20/2020 12:00:00 AM EDT eCW1 ([facility]) Unknown [address] [facility] [facility] [address] 01/15/2020 12:00:00 AM EDT eCW1 ([facility]) Inpatient Attender: RACH POWELL MDAttender: Sandoval Seymour MDAdmitter: Sandoval Gene Dawn MDReferrer: Sandoval Seymour MDConsultant: Sandoval Seymour MD [id number] 01/11/2020 12:00:00 AM EDT - 01/14/2020 12:10:00 PM EDT Epilepsy, unspecified, not intractable, with status ep ilepticus [facility] Epilepsy, unspecified, not intractable, with status epilepticus Patient discharged. Outpatient Attender: NOELLE FONTENOT MD [id number] 12/17 12:00:00 AM EDT - 01/06/2020 10:20:34 AM EDT Hodgkin lymphoma, unspecified, unspecified site [facility] Hodgkin lymphoma, unspecified, unspecifi ed site Outpatient Referrer: GLEN NELSON MD [id number] 11/29/2019 02:0 3:00 AM EDT [facility] encephalitis Outpatient Attender: Mariano Quezada [id number] 020 12:00:00 AM EDT - 11/05/2019 01:01:40 PM EDT [address] [address] 09/26/2019 12:00:00 AM EDT eCW1 ([facility]) [address] [address] 09/24/2019 12:00:00 AM EDT eCW1 ([facility]) Outpatient Attender: BOO HEAD NP Physical Therapy 09/11/2019 0 8:30:00 AM EDT MEDENT ([facility]) [address] [address] 09/03/2019 12:00:00 AM EDT eCW1 ([facility]) Outpatient Attender: BOO HEAD NP Physical Therapy 08/30/2019 1 0:45:00 AM EDT MEDENT ([facility]) [address] [address] 08/27/2019 12:00:00 AM EDT eCW1 ([facility]) [address] [address] 08/22/2019 12:00:00 AM EDT eCW1 ([facility]) [address] [address] 08/20/2019 12:00:00 AM EDT eCW1 ([facility]) Outpatient Attender: Mariano Quezada [id number] 12:00:00 AM EDT - 08/07/2019 03:31:04 PM EDT 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, not intractable, without status epilepticus [facility] 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, not intractable, without status epilepticus [address] [address] 08/02/2019 12:00:00 AM EDT eCW1 ([facility]) [address] [address] 07/29/2019 12:00:00 AM EDT eCW1 ([facility]) [address] [address] 07/29/2019 12:00:00 AM EDT eCW1 ([facility]) [address] [address] 07/29/2019 12:00:00 AM EDT eCW1 ([facility]) Outpatient Attender: ELODIA Rivera Woman jawbone puller 01:00:00 PM EST [facility] ([facility]) [address] [address] 06/04/2019 12:00:00 AM EST eCW1 ([facility]) [address] [address] 06/03/2019 12:00:00 AM EST eCW1 ([facility]) [address] [address] 05/30/2019 12:00:00 AM EST eCW1 ([facility]) [address] [address] 05/30/2019 12:00:00 AM EST eCW1 ([facility]) [address] [address] 05/29/2019 12:00:00 AM EST eCW1 ([facility]) [address] [address] 05/21/2019 12:00:00 AM EST eCW1 ([facility]) Outpatient 04/26/2019 06:05:00 PM EST [facility] Emergency Attender: VAMSI NOVOA MDConsultant: Nargis hayward MD 04/26/2019 04:04:00 PM EST - 04/26/2019 07:47:00 PM EST [facility] Patient discharged. [address] [address] 04/26/2019 12:00:00 AM EST eCW1 ([facility]) [address] [address] 04/26/2019 12:00:00 AM EST eCW1 ([facility]) Outpatient Attender: ELODIA Rivera Woman jawbone puller 11/2019 01:45:00 PM EST [facility] ([facility]) [address] [address] 04/24/2019 12:00:00 AM EST eCW1 ([facility]) Outpatient Attender: NOELLE FONTENOT MD 04/24/2019 12:00:00 AM [facility] Outpatient Attender: NOELLE FONTENOT MD [id number] 09/2019 12:00:00 AM EST - 04/22/2019 03:02:39 PM EST Hodgkin lymphoma, unspecified, unspecified site [facility] Hodgkin lymphoma, unspecified, unspecifi ed site [address] [address] 03/26/2019 12:00:00 AM EST eCW1 ([facility]) [facility] [address] [facility], [facility] [address] 03/25/2019 12:00:00 AM EST eCW1 ([facility]) Outpatient Attender: CASTRO COSTA NP [facility] 08/2018 08:15:00 AM EST MED[facility] ([facility]) Outpatient Attender: ELODIA BAKER MD [facility] 10:45:00 AM EST MEDENT ([facility]) Immunizations Vaccine Date Status Description Data Source(s) New in 2011. IIV4 04/01/2020 12:40:00 PM EST completed MEDENT ([facility] ) Medications Medication Brand Name Start Date Product Form Dose Route Admi nistrative Instructions Pharmacy Instructions Status Indications Reaction Description Data Source(s) Levetiracetam 750 MG Oral Tablet levETIRAcetam 750 MG Oral Tablet (KEPPRA) levETIRAcetam 750 MG Oral Tablet (KEPPRA) 03/18/2020 12:00:00 AM EST 750 mg Oral active Take 1 tablet by tata th [facility] lamotrigine 200 MG Oral Tablet lamoTRIgine 200 MG Oral Tablet (LaMICtal) lamoTRIgine 200 MG Oral Tablet (LaMICtal) 03/18/2020 12:00:00 AM EST 200 mg Oral active Nonintractable g eneralized idiopathic epilepsy without status epilepticus Take 1 tablet by mouth [facility] Nonintractable generalized idiopathic ep ilepsy without status epilepticus POLYETHYLENE GLYCOL 3350 142 MG/ML Oral Solution Polyethylene Glycol 3350 17 GM/SCOOP Oral Powder (GLYCOLAX) Polyethylene Glycol 3350 17 GM/SCOOP Ora l Powder (GLYCOLAX) 02/21/2020 12:00:00 AM EST active MIX 17 GRAMS IN 8 OUNCES OF WATER OR JUICE AND TK PO D PRN FOR CONSTIPATION [facility] Acetaminophen 325 MG / Oxycodone Hydroch loride 5 MG Oral Tablet oxyCODONE- Acetaminophen 5-325 MG Oral Tablet (PERCOCET) oxyCODONE-Acetaminophen 5-325 MG Oral Tablet (PERCOCET) 02/20/2020 12:00:00 AM EST active TK 2 TS PO Q 4 H PRF PAIN. MDD 6 [facility] NITROFURANTOIN, MACROCRYSTALS 25 MG / Ni trofurantoin, Monohydrate 75 MG Oral Capsule Nitrofurantoin Monohyd Macro 100 MG Oral Capsule (MACROBID) Nitrofurantoin Monohyd Macro 100 MG Oral Capsule (MACROBID) 02/20/2020 12:00:00 AM EST active TK 1 C PO BID Ups [facility] celecoxib 200 MG Oral Capsule [Celebrex] Celebrex 02/19/2020 12 :00:00 AM EST ORAL active [facility] ([facility] Acetaminophen 325 MG / Oxycodone Hydrochloride 5 MG Or al Tablet [Percocet] Percocet 02/18/2020 12:00:00 AM EST ORAL active [facility] ([facility]) Acetaminophen 325 MG / Hydrocodone Mounika trate 5 MG Oral Tablet HYDROcodone- Acetaminophen 5-325 MG Oral Tablet (LORTAB) HYDROcodone-Acetaminophen 5-325 MG Oral Tablet (LORTAB) 02/14/2020 12:00:00 AM EDT active TK 2 TS PO Q 4 H PRF PAIN. MDD [address] [place] [address] Acetaminophen 325 MG / Hydrocodone Bitartrate 5 MG Oral Tabl et [[place]] [place] 02/11/2020 12:00:00 AM EDT ORAL completed [facility] ([facility]) Ibuprofen 600 MG Oral Tablet Ibuprofen 02/11/2020 12:00:00 AM EDT ORAL active [facility] ([facility]) Magnesium Hydroxide 80 MG/ML Oral Suspen shanna magnesium hydroxide (MILK OF MAGNESIA) 400 MG/5ML suspension 45 mL magnesium hydroxide (MILK OF MAGNESIA) 4 00 MG/5ML suspension 45 mL 01/13/2020 10:00:00 PM EDT 45 mL Oral active 45 mL, Oral, Nightly, First dose on Mon01/13/20 at 2200, For 30 days
If serum creatinine > 2 notify provider before administering.
[facility] Medication administered onsite Docusate Sodium 100 MG Oral Capsule docusate sodium (C OLACE) capsule 100 mg docusate sodium (COLACE) capsule 100 mg 01/13/2020 09:00:00 AM EDT 100 mg Oral active 100 mg, Oral, 2 Times Daily, First dose on 9/28/20 at 0900, For 30 days [facility] Medication administered onsite sennosides, FPC 8.6 MG Oral Tablet senna tablet 2 tablet sen na tablet 2 tablet 01/13/2020 07:45:55 AM EDT 2 {tbl} Oral active 2 tablet, Oral, Nightly PRN, Constipation, Starting 01/13/20 at 0745, For 30 days [facility] Medication administered onsite sennosides, FPC 35.2 MG/ML Oral Solution senna (SENOKO T) syrup 10 mL senna (SENOKOT) syrup 10 mL 01/13/2020 07:45:55 AM EDT 10 mL Oral active 10 mL, Oral, Nightly PRN, Constipation, Starting Mon01/13/20 at 0745, For 30 days [facility] Medication administered onsite Bisacodyl 10 MG Rectal Suppository bisacodyl (DULCOLAX ) suppository 10 mg bisacodyl (DULCOLAX) suppository 10 mg 01/13/2020 07:45:55 AM EDT 10 mg Rectal active 10 mg, Rectal, Every 72 hours PRN, Constipation, Starting Mon01/13/20 at 0745, For 30 days
Hold if patient has had BM within the past 2 days.
[facility] Medication administered onsite magnesium sulfate in dextrose 5 % infusion (premix) 1 g [id number] [id number] 01/13/2020 04:00:00 AM EDT 1 g Intravenous completed 1 g, Intravenous, Administer over 60 Minutes, Once, Mon01/13/20 at 0400, For 1 dose [facility] Medication administered onsite 2 ML Metoclopramide 5 MG/ML Prefilled Sy ringe metoclopramide (REGLAN) injection 10 mg metoclopramide (REGLAN) injection 10 mg 01/13/2020 04:00:00 AM E DT 10 mg Intravenous completed 10 mg, I ntravenous, Once, Mon01/13/20 at 0400, For 1 dose [facility] Medication administered onsite Loratadine 10 MG Oral Tablet loratadine (CLARITIN) tab let 10 mg loratadine (CLARITIN) tablet 10 mg 01/13/2020 04:00:00 AM EDT 10 mg Oral completed 10 mg, Oral, Once, Mon01/13/20 at 0400, For 1 dose [facility] Medication administered onsite Melatonin 5 MG Oral Tablet melatonin tablet 5 mg melatonin t ablet 5 mg 01/13/2020 02:30:00 AM EDT 5 mg Oral completed 5 mg, Oral, Once, Mon01/13/20 at 0230, For 1 dose [facility] Medication administered onsite Acetaminophen 10 MG/ML Injectable Soluti on acetaminophen (OFIRMEV) infusion 1,000 mg acetaminophen (OFIRMEV) infusion 1,000 mg 01/13/2020 01:45:00 AM EDT 1000 mg Intravenous completed 1,000 mg , Intravenous, Administer over 15 Minutes, Once, Mon01/13/20 at 0145, For 1 dose
Maximum dose 3 gm daily from all sources
[facility] Medication administered onsite Metoprolol Tartrate 25 MG Oral Tablet me toprolol tartrate (LOPRESSOR) tablet 25 mg metoprolol tartrate (LOPRESSOR) tablet 25 mg 01/13/2020 12:00:00 AM EDT 25 mg Oral completed 25 mg, Oral, Once, Mon01/13/20 at 0000, For 1 dose [facility] Medication administered onsite pantoprazole 40 MG Delayed Release Oral Tablet pantoprazole (PROTONIX) EC tablet 40 mg pantoprazole (PROTONIX) EC tablet 40 mg 01/12/2020 09:45:00 PM E DT 40 mg Oral active 40 mg, Ora l, Daily Standard, First dose on 01/12/20 at 2145, For 30 days
Do not crush or chew
[facility] Medication administered onsite alginic acid 200 MG / Calcium Carbonate 80 MG / magnesium trisilicate 20 MG / Sodium Bicarbonate 70 MG Oral Tablet calcium carbonate (TUMS) chewable tablet 500 mg calcium carbonate (TUMS) chewable tablet 500 mg 2019 09:37:32 PM EDT 500 mg Oral active 500 mg, Oral, Three Times Daily-PRN, Indigestion, Heartburn, Starting 01/12/20 at 2137, For 30 days [facility] Medication administered onsite Famotidine 8 MG/ML Oral Suspension famot idine (PEPCID) 40 MG/5ML oral suspension 20 mg famotidine (PEPCID) 40 MG/5ML oral suspension 20 mg 09:00:00 PM EDT 20 mg Oral active 20 mg, O ral, 2 Times Daily, First dose on 01/12/20 at 2100, For 30 days
Tablet order changed to suspension due to backorder on tablets
[facility] Medication administered onsite sodium chloride 0.9 % bolus 500 mL 01/12/2020 08:15:00 PM EDT 500 mL Intravenous completed 500 mL, Intravenous, Once, [place] 01/12/20 at 2015, For 1 dose [facility] Medication administered onsite 1 ML Ketorolac Tromethamine 15 MG/ML [place] ketorolac (TORADOL) 15 MG/ML injection 15 mg ketorolac (TORADOL) 15 MG/ML injection 15 mg 0 09:45:00 AM EDT 15 mg Intravenous completed 15 mg, Intravenous, Once, [place] 01/12/20 at 0945, For 1 dose [facility] Medication administered onsite 0.4 ML Enoxaparin sodium [...] hours after epidural catheter has been removed.
[facility] Medication administered onsite sodium chloride 0.9 % bolus 1,000 mL 01/12/2020 05:45: 00 AM EDT 1000 mL Intravenous completed 1,000 mL , Intravenous, Once, [place] 01/12/20 at 0545, For 1 dose [facility] Medication administered onsite sodium chloride 0.9 % bolus 500 mL 01/12/2020 01:15:00 AM EDT 500 mL Intravenous completed 500 mL, Intravenous, Once, [place] 01/12/20 at 0115, For 1 dose [facility] Medication administered onsite sodium chloride 0.9 % bolus 500 mL 26/2020 10:45:00 PM EDT 500 mL Intravenous completed 500 mL, Intravenous, Once, 01/11/20 at 2245, For 1 dose [facility] Medication administered onsite Levetiracetam 100 MG/ML Oral Solution le vETIRAcetam (KEPPRA) 100 MG/ML oral solution 750 mg levETIRAcetam (KEPPRA) 100 MG/ML oral solution 750 mg 01/11/2020 09:00:00 PM EDT 750 mg Per NG tube active 750 mg, Per NG tube, 2 Times Daily, First dose on 01/11/20 at 2100, For 30 days [facility] Medication administered onsite ondansetron (ZOFRAN) injection 4 [...] 2022, For 7 doses [Order 2 End] [facility] Medication administered onsite ondansetron (ZOFRAN) 4 MG/2ML injection [id number] 01/11/20 08:06:55 PM EDT completed Starting Sat at 2005, For 1 dose
Brayan SANCHEZ : cabinet override
[facility] Medication administered onsite Acetaminophen 32 MG/ML Oral [...] mg from all sources in 24 hours.
[facility] Medication administered onsite propofol (DIPRIVAN) infusion 1,000 mg/100 mL [id number] 01/11/2020 01:45:00 PM EDT ug/kg/min Intravenous aborted 1 0-80 mcg/kg/min 81.9 kg (4.914-39.312 mL/hr, rounded to 4.9-39.3 mL/hr), Intravenous, at 4.9- 39.3 mL/hr, Continuous, Starting 01/11/20 at 1345, For 30 days
Starting dose = 10 mcg/kg/minTitrate to maintain RASS of -3 Increase by 5-10 mcg/kg/minMax Dose = 80 mcg/kg/min Titrate down if RASS of -3
[facility] Medication administered onsite dexmedetomidine (PRECEDEX) in NaCl 0.9 % infusion 4 mcg/mL 1 [id number] 01/11/2020 01:30:00 PM EDT ug/kg/h Intravenous aborted 0.1-1.5 mcg/kg/hr 81.9 kg (2.0475-30.7125 mL/hr, rounded to 2-30.7 mL/hr), Intravenous, at 2-30.7 mL/hr, Continuous, Starting 01/11/20 at 1330, For 30 days
Starting dose = 0.2 mcg/kg/hrTitrate to maintain RASS of -3 Titrate by 0.1-0.2 mcg/kg/hrMax Dose = 1.5 mcg/kg/hr Titrate down if RASS of -3
[facility] Medication administered onsite NaCl infusion 0.9 % [id number] 01/11/2020 12:45:00 PM EDT Intravenous aborted at 100 mL/hr, Intrav enous, Continuous, Starting 01/11/20 at 1245, For 30 days [facility] Medication administered onsite lamotrigine 100 MG Oral Tablet lamoTRIgine (LaMICtal) tablet 200 mg lamoTRIgine (LaMICtal) tablet 200 mg 01/11/2020 11:45:00 AM EDT 200 mg Oral active 200 mg, Oral, 2 Times Daily, First dose (after last reorder) on 01/11/20 at 1145, For 30 days [facility] Medication administered onsite Levetiracetam 750 MG Oral Tablet levETIRAcetam (KEPPRA ) tablet 750 mg levETIRAcetam (KEPPRA) tablet 750 mg 01/11/2020 10:30:00 AM EDT 750 m g Oral aborted 750 mg, Oral, 2 Times Daily, First dose on 01/11/20 at 1030, For 30 days [facility] Medication administered onsite propofol (DIPRIVAN) infusion 200 mg/20 mL [id number] 01/11/2020 09:00:00 AM EDT ug/kg/min Intravenous completed 10-80 mcg/kg/min 81.9 kg (4.914-39.312 mL/hr, rounded to 4.9-39.3 mL/hr), Intravenous, at 4.9- 39.3 mL/hr, Once, 01/11/20 at 0900, For 1 dose
Starting dose = 10 mcg/kg/minTitrate to maintain RASS of -2 Increase by 5-10 mcg/kg/minMax Dose = 80 mcg/kg/min Titrate down if RASS of 0
[facility] Medication administered onsite Levothyroxine Sodium 0.2 MG Oral Tablet [Synthroid] Synthroid 200 MCG Oral Tablet Synthroid 200 MCG Oral Tablet 10/07/2019 12:00:00 AM EDT 200 ug Oral aborted Take 200 mcg by mouth daily [facility] Levothyroxine Sodium 0.2 MG Oral Tablet [Synthroid] Synthroi d 09/11/2019 12:00:00 AM EDT ORAL active M EDENT ([facility]) Levetiracetam 750 MG Oral Tablet levETIRAcetam 750 MG Oral Tablet (KEPPRA) levETIRAcetam 750 MG Oral Tablet (KEPPRA) 08/07/2019 12:00:00 AM EDT 750 mg Oral aborted Take 1 tablet by tata th Two Times Daily [facility] lamotrigine 200 MG Oral Tablet lamoTRIgine 200 MG Oral Tablet (LaMICtal) lamoTRIgine 200 MG Oral Tablet (LaMICtal) 08/07/2019 12:00:00 AM EDT 200 mg Oral aborted Nonintractable g eneralized idiopathic epilepsy without status epilepticus Take 1 tablet by mouth Two Times Daily [facility] Nonintractable generalized idiopathic ep ilepsy without status epilepticus Acetaminophen 325 MG / Hydrocodone Bitartrate 5 MG Oral Tabl et [[place]] [place] 06/11/2019 12:00:00 AM EST ORAL active [facility] ([facility] [employer] [facility]) Ibuprofen 600 MG Oral Tablet Ibuprofen 06/11/2019 12:00:00 AM EST ORAL active [facility] ([facility] [employer]) Levothyroxine Sodium 0.175 MG Oral Tablet Levothyroxin e Sodium 175 MCG Levothyroxine Sodium 175 MCG 05/30/2019 12:00:00 AM EST active 1 tablet in the morning on an empty stomach eCW1 ([facility]) gabapentin 100 MG Oral Capsule Gabapentin 04/24/2019 12:00:00 AM EST active [facility] ([facility] [employer]) Metronidazole 500 MG Oral Tablet Metronidazole 04/24/2019 12:00:00 AM EST ORAL completed [facility] ([facility] [employer] [facility]) Levothyroxine Sodium 0.15 MG Oral Tablet Levothyroxine Sodium 150 MCG Levothyroxine Sodium 150 MCG 03/26/2019 12:00:00 AM EST active 1 tablet in the morning on an empty stomach eCW1 ([facility]) Levothyroxine Sodium 0.15 MG Oral Tablet Levothyroxine Sodium 150 MCG Levothyroxine Sodium 150 MCG 03/26/2019 12:00:00 AM EST active 1 tablet in the morning on an empty stomach eCW1 ([facility]) 1 ML heparin sodium, porcine 72691 UNT/ML Injection Heparin Sodium (Porcine) 03/13/2019 12:00:00 AM EST completed [facility] ([facility] [employer] [facility]) Pentosan Polysulfate 100 MG Oral Capsule [Elmiron] Elmiron 03/04/2019 12:00:00 AM EST ORAL active [facility] ([facility] [employer] [facility]) lamotrigine 200 MG Oral Tablet lamoTRIgine (LAMICTAL) 200 MG tablet lamoTRIgine (LAMICTAL) 200 MG tablet 10/08/2018 12:00:00 AM EDT 200 mg Oral aborted Nonintractable generalized idiopathic epilepsy without status epilepticus Take 1 tablet by mouth Two Times Daily [facility] Nonintractable generalized idiopathic ep ilepsy without status epilepticus Levetiracetam 750 MG Oral Tablet levETIRAcetam (KEPPRA ) 750 MG tablet levETIRAcetam (KEPPRA) 750 MG tablet 10/08/2018 12:00:00 AM EDT 750 m g Oral aborted Take 1 tablet by mouth Two T imes Daily [facility] Amitriptyline Hydrochloride 25 MG Oral T ablet Amitriptyline HCl 25 MG Oral Tablet (ELAVIL) Amitriptyline HCl 25 MG Oral Tablet (ELAVIL) 25 mg Oral aborted Take 25 mg by mouth Two Times Da [facility] gabapentin 100 MG Oral Capsule Gabapentin 100 MG Oral Capsule (NEURONTIN) Gabapentin 100 MG Oral Capsule (NEURONTIN) 100 mg Oral aborted Take 100 mg by mouth Two Times Daily [facility] lamotrigine 200 MG Oral Tablet lamoTRIgine 200 MG Oral Tablet (LaMICtal) lamoTRIgine 200 MG Oral Tablet (LaMICtal) 200 mg Oral aborted Take 200 mg by mouth Two Times Daily [facility] Levetiracetam 750 MG Oral Tablet levETIRAcetam 750 MG Oral Tablet (KEPPRA) levETIRAcetam 750 MG Oral Tablet (KEPPRA) 750 mg Oral aborted Take 750 mg by mouth Two Times Daily [facility] Levothyroxine Sodium 0.112 MG Oral Table t levothyroxine (SYNTHROID, LEVOTHROID) 112 MCG tablet levothyroxine (SYNTHROID, LEVOTHROID) 112 MCG tablet 112 ug Oral aborted Take 112 mcg by mout h Daily [facility] Insurance Providers Payer name Policy type / Coverage type Policy ID Covered constitution party ID Covered constitution party's relationship to [place] Policy [place] Plan Information EMEDNY [id number] MEDICAID M [id number] Self [id number] MEDICAID - O/P EMERGENCY ROOM [id number] 18 [id number] MEDICAID HEA [id number] S [id number] MEDICAID M [id number] Self [id number] MEDICAID [id number] ANSI-Medicaid [id number] ANSI-Medicaid [id number] ANSI-Medicaid [id number] ANSI-Medicaid [id number] ANSI-Medicaid [id number] ANSI-Medicaid [id number] ANSI-Medicaid [id number] ANSI-Medicaid [id number] ANSI-Medicaid [id number] ANSI-Medicaid [id number] ANSI-Medicaid [id number] ANSI-Medicaid [id number] ANSI-Medicaid [id number] ANSI-Medicaid [id number] MEDICAID M [id number] S [id number] ANSI-Medicaid [id number] ANSI-Medicaid [id number] ANSI-Medicaid [id number] ANSI-Medicaid [id number] ANSI-Medicaid [id number] ANSI-Medicaid [id number] ANSI-Medicaid [id number] ANSI-Medicaid [id number] ANSI-Medicaid [id number] MEDICAID [id number] SP [id number] MEDICAID [id number] S [id number] MEDICAID [id number] UNAVAILABLE [place] BLE [facility]ICAID [facility] [id number] Medicaid [facility] Medicaid Self SELF PAY UNAVAILABLE UNAVAILA BLE MEDICAID -PHYSICIAN [id number] MEDICAID-O/P [id number] MEDICAID - CLINIC [id number] [place] Self Medicaid [id number] MEDICAID W [id number] S [id number] MEDICAID 3 [id number] SELFPAY 5 UNAVAILABLE 1 UNAVAILA BLE MEDICAID -RECURRING [id number] MEDICAID - CLINIC [id number] W UNAVAILABLE UNAVAILA BLE Problems, Conditions, and Diagnoses Code Display Name Description Problem Type Effective Dates Data Source(s) H91.93 403590589 Decreased hearing of both ears Problem 04/20/2020 12:00:00 AM EST eCW1 ([facility]) G47.19 [id number] Excessive daytime sleepiness Problem 01/20/2020 12:00:00 AM EDT eCW1 ([facility]) G40.909 368331791 Seizure disorder Problem 01/20/2020 12:00:00 AM EDT eCW1 ([facility]) F44.5 970299467 Pseudoseizures Problem 08/02/2019 12:00:00 A M EDT eCW1 ([facility]) F44.5 152056704 Pseudoseizures Problem 08/02/2019 12:00:00 A M EDT eCW1 ([facility]) 541946333 Chronic interstitial cystitis Chronic interstitial cys titis Problem 04/08/2019 12:00:00 AM EST [facility] ([facility] [employer] [facility]) 527628354 History of Hodgkin lymphoma History of Hodgkin lymphom a Problem 04/08/2019 12:00:00 AM EST [facility] ([facility] [employer] [facility]) I73.00 513728289 Raynaud's phenomenon without gangrene Pro blem 03/25/2019 12:00:00 AM EST eCW1 ([facility]) N30.10 023950724 Interstitial cystitis Problem 03/25/2019 12: 00:00 AM EST eCW1 ([facility]) E16.2 888771346 Hypoglycemia Problem 03/25/2019 12:00:00 AM EST eCW1 ([facility]) 892453534 Raynaud's phenomenon Raynaud's phenomenon Problem 03/25/2019 12:00:00 AM EST [facility] ([facility]) 969860915 Hypoglycemia Hypoglycemia Problem 03/25/2019 12:00:00 A M EST [facility] ([facility]) E16.2 341911000 Hypoglycemia Problem 03/25/2019 12:00:00 AM EST eCW1 ([facility]) I73.00 924302204 Raynaud's phenomenon without gangrene Pro blem 03/25/2019 12:00:00 AM EST eCW1 ([facility]) N30.10 824823887 Interstitial cystitis Problem 03/25/2019 12: 00:00 AM EST eCW1 ([facility]) G40.309 Generalized idiopathic epile psy and epileptic syndromes, not intractable, without status epilepticus Generalized idiopathic epilepsy and epileptic syndromes, not intractable, without status epilepticus Diagnosis 03/18/2020 07:26:37 AM [facility] seizure disorder seizure disorder Diagnosis 01/29/2020 10 :36:00 AM [facility] [id number] Latex allergy status Latex allergy status Diagnosis 01/29/2020 06:03:00 AM [facility] E039 Hypothyroidism, unspecified Hypothyroidism, unspecifie d Diagnosis 01/29/2020 06:03:00 AM [facility] [id number] Unspecified asthma, uncomplicated Unspecified as thma, uncomplicated Diagnosis 01/29/2020 06:03:00 AM [facility] R1084 Generalized abdominal pain Generalized abdominal pain Diagnosis 01/29/2020 06:03:00 AM [facility] L15334 Epilepsy, unspecified, not intractable, without status epilepticus Epilepsy, unspecified, not intractable, without status epilepticus Diagnosis 01/29/2020 06:03:00 AM [facility] G40.901 Epilepsy, unspecified, not intractable, with status epilepticus Epilepsy, unspecified, not intractable, with status epilepticus Diagnosis 01/12/2020 01:58:11 PM EDT [facility] s/p seizure s/p seizure Diagnosis [facility] 11/29/2019 02:03:00 AM ED [facility] encephalitis encephalitis Diagnosis 11/29/2019 02:03:00 A M [facility] N924 Excessive bleeding in the premenopausal period Excessive bleeding in the premenopausal period Diagnosis 04/26/2019 04:04:00 PM [facility] R102 Pelvic and perineal pain Pelvic and perineal pain Diag nosis 04/26/2019 04:04:00 PM [facility] Surgeries/Procedures Procedure Description Date Indications Data Source(s) VAGINAL HYSTERECTOMY UTERUS 250 GM/< 02/13/2020 12:00: 00 AM EDT [facility] ([facility] [employer] [facility]) BLOOD COUNT COMPLETE AUTO&AUTO DIFRNTL WBC COUNT CBC AND DIFFER ENTIAL Routine 01/14/2020 3:53 AM EDT [facility]/14[facility]OLIC PANEL CALCIUM TOTAL BASIC METABOLIC PANEL Routi ne 01/14/2020 3:53 AM EDT 01/14/2020 03:53:00 AM EDT [facility] EKG 12-LEAD - CMAXX REPORT EKG 12-LEAD - CMAXX REPORT 01/13/2020 12:17 AM EDT 01/13/2020 12:17:52 AM EDT [facility] EKG 12-LEAD - CMAXX REPORT EKG 12-LEAD - CMAXX REPORT 01/13/2020 12:17 AM EDT 01/13/2020 12:17:52 AM EDT [facility] EKG 12-LEAD EKG 12-LEAD Routine 01/13/2020 12:17 AM EDT 01/13/2020 12:17:52 AM [facility] BLOOD COUNT COMPLETE AUTO&AUTO DIFRNTL WBC COUNT CBC AND DIFFER ENTIAL Routine 01/12/2020 4:59 AM EDT 01/12/2020 04:59:00 AM [facility] BASIC METABOLIC PANEL CALCIUM TOTAL BASIC METABOLIC PANEL Routi ne 01/12/2020 4:59 AM EDT 01/12/2020 04:59:00 AM EDT [facility] BASIC METABOLIC PANEL CALCIUM TOTAL BASIC METABOLIC PANEL Routi ne 01/11/2020 3:50 PM EDT 01/11/2020 03:50:00 PM EDT [facility] BLOOD GASES ANY COMBINATION PH PCO2 PO2 CO2 HCO3 BLOOD GAS, ART ERIAL Routine 01/11/2020 1:22 PM EDT 01/11/2020 01:22:00 PM [facility] CT HEAD/BRAIN W/O CONTRAST MATERIAL CT HEAD WITHOUT CONTRAST 70 450 STAT 01/11/2020 9:52 AM EDT 01/11/2020 09:52:10 AM [facility] COVID-19 PCR COVID-19 PCR Routine 01/11/2020 9:22 AM EDT 01/11/2020 09:22:00 AM [facility] BASIC METABOLIC PANEL CALCIUM IONIZED POCT ISTAT CHEM8 Routine 01/11/2020 9:19 AM EDT 01/11/2020 09:19:00 AM EDT [facility] GONADOTROPIN CHORIONIC QUANTITATIVE POCT ISTAT BHCG Routine 01/11/2020 9:13 AM EDT 01/11/2020 09:13:00 AM EDT [facility] BLOOD GASES ANY COMBINATION PH PCO2 PO2 CO2 HCO3 POCT ISTAT VBG /LAC Routine 01/11/2020 9:10 AM EDT 01/11/2020 09:10:00 AM [facility] LAMOTRIGINE LAMOTRIGINE Routine 01/11/2020 9:01 AM EDT 01/11/2020 09:01:00 AM [facility] LEVETIRACETAM LEVEL LEVETIRACETAM LEVEL Routine 01/11/2020 9:01 AM EDT 01/11/2020 09:01:00 AM [facility] URNLS DIP STICK/TABLET REAGENT AUTO MICROSCOPY URINALYSIS W ITH MICROSCOPIC STAT 01/11/2020 8:57 AM EDT 01/11/2020 08:57:00 AM [facility] BLOOD COUNT COMPLETE AUTO&AUTO DIFRNTL WBC COUNT CBC AND DIFFER ENTIAL STAT 01/11/2020 8:57 AM EDT 01/11/2020 08:57:00 AM [facility] HEPATIC FUNCTION PANEL HEPATIC FUNCTION PANEL A STAT 0 8:57 AM EDT 01/11/2020 08:57:00 AM [facility] BASIC METABOLIC PANEL CALCIUM TOTAL BASIC METABOLIC PANEL STAT 01/11/2020 8:57 AM EDT 01/11/2020 08:57:00 AM EDT [facility] EKG 12-LEAD - CMAXX REPORT EKG 12-LEAD - CMAXX REPORT 01/11/2020 8:56 AM EDT 01/11/2020 08:56:40 AM EDT [facility] EKG 12-LEAD - CMAXX REPORT EKG 12-LEAD - CMAXX REPORT 01/11/2020 8:56 AM EDT 01/11/2020 08:56:40 AM EDT [facility] EKG 12-LEAD EKG 12-LEAD STAT 01/11/2020 8:56 AM EDT 01/11/2020 08:56:40 AM T [facility] EKG 12-LEAD - CMAXX REPORT EKG 12-LEAD - CMAXX REPORT 01/11/2020 8:56 AM EDT 01/11/2020 08:56:00 AM EDT [facility] XR CHEST FRONTAL ONLY 56691 XR CHEST FRONTAL ONLY 26259 STAT 01/11/2020 8:45 AM EDT 01/11/2020 08:45:00 AM EDT [facility] BLOOD COUNT COMPLETE AUTOMATED CBC AND DIFFERENTIAL STAT 01/06/2020 9:20 AM EDT Hodgkin lymphoma, unspecified Hodgkin lymphoma type, unspecified body region 01/06/2020 09:20:00 AM EDT Hodgkin lymphoma, unspecified Hodgkin ly mphoma type, unspecified body region [facility] Hodgkin lymphoma, unspecified Hodgkin ly mphoma type, unspecified body region LACTATE DEHYDROGENASE LDH LACTATE DEHYDROGENASE STAT 01/05 9:20 AM EDT Hodgkin lymphoma, unspecified Hodgkin lymphoma type, unspecified body region 01/06/2020 09:20:00 AM EDT Hodgkin lymphoma, unspecified Hodgkin ly mphoma type, unspecified body region [facility] Hodgkin lymphoma, unspecified Hodgkin ly mphoma type, unspecified body region COMPREHENSIVE METABOLIC PANEL COMPREHENSIVE METABOLIC PANEL Diandra gilbert 01/06/2020 9:20 AM EDT Hodgkin lymphoma, unspecified Hodgkin lymphoma type, unspecified body region 01/06/2020 09:20:00 AM EDT Hodgkin lymphoma, unspecified Hodgkin ly mphoma type, unspecified body region [facility] Hodgkin lymphoma, unspecified Hodgkin ly mphoma type, unspecified body region TRANS CARE MGMT 7 DAY DISCH 08/02/2019 12:00:00 AM EDT eCW1 ([facility]) Transitional Care NO CHARGE Visit 07/29/2019 12:00:00 AM EDT eCW1 ([facility]) Laparoscopy W/Removal Of Adnexal Struc Oophorectomy/Salp 06/13/2019 12:00:00 AM EST [facility] ([facility] [employer]) BLOOD COUNT COMPLETE AUTO&AUTO DIFRNTL WBC COUNT CBC AND DIFFER ENTIAL STAT 04/22/2019 2:00 PM EST Hodgkin lymphoma, unspecified Hodgkin lymphoma type, unspecified body region 04/22/2019 07:00:00 PM EST Hodgkin lymphoma, unspecified Hodgkin ly mphoma type, unspecified body region [facility] Hodgkin lymphoma, unspecified Hodgkin ly mphoma type, unspecified body region LACTATE DEHYDROGENASE LDH LACTATE DEHYDROGENASE STAT 04/22 2:00 PM EST Hodgkin lymphoma, unspecified Hodgkin lymphoma type, unspecified body region 04/22/2019 07:00:00 PM EST Hodgkin lymphoma, unspecified Hodgkin ly mphoma type, unspecified body region [facility] Hodgkin lymphoma, unspecified Hodgkin ly mphoma type, unspecified body region COMPREHENSIVE METABOLIC PANEL COMPREHENSIVE METABOLIC PANEL STA T 04/22/2019 2:00 PM EST Hodgkin lymphoma, unspecified Hodgkin lymphoma type, unspecified body region 04/22/2019 07:00:00 PM EST Hodgkin lymphoma, unspecified Hodgkin ly mphoma type, unspecified body region [facility] Hodgkin lymphoma, unspecified Hodgkin ly mphoma type, unspecified body region Irrigation Of Bladder 04/08/2019 12:00:00 AM EST [facility] ([facility] [employer]) Irrigation Of Bladder 03/28/2019 12:00:00 AM EST [facility] ([facility] [employer]) Results ID Date Data Source [id number] 04/28/2020 12:21:00 AM EST [facility] Name Value Range Interpretation Code Description Data Corrie rce(s) Supporting Document(s) SARS coronavirus 2 RNA [Presence] in Res piratory specimen by [facility] with probe detection NEGATIVE [facility] This lab was ordered by [facility] a nd reported by [facility]. ID Date Data Source [id number] 03/30/2020 01:33:45 AM EST [facility] Name Value Range Interpretation Code Description Data Corrie rce(s) Supporting Document(s) Progress Note [facility] JOCCCl5tCbQOTdFt90/COFbrZTSig9XvUVonLVq7WDpcFNCkL2VaAAL4mE6bHPU8HQlRBeIoPqDfGcD2 lbm TzGmxRIfLtWDZdOheLCpBsAEcpEwobhZYaRY5DkAN0XSCrP40cMBLpIECnS0UzRXVaOBy+De1RCOYrnS BjCT1SEecM3T4cv9IROa0+Vfc/LHSO2rHKCFh/UxrMUDQtMPVZmeCRdgnsLYigG3X7ugOl/wkSctKW0B ob7xlOHNsLPxEekEx1h0/TM1Kq+C26lYwXbiEsnL+H d9rpl12h3P//ouav+d7Da/N/spfIDzwnceLiB/k/fffLHzzrqPUdR+XYMXhoo9fyxvqVC9IoOe5vW2mv z73h4spyJwy+pwo27OmH+8cHKklcz/M/MW6eMe3I9p472kgm3kQeZOhA0pRNIlZfipTHGFpNPekt2X4i Le9rhyuODq4JfqjaOf3I/dgL2V+v3BNzLy9hNLu6PV q8XyOd5JSNDAtzPY6j7KST7uxk3PdDk7VOEI842Dg2s5QpeY/hg7Er2AWgNkyXf2hqj/aSikjurZ4J8z qqQAvYzo1WFdvOJjmqXojGFViAjstvyeoAs+tUOJ329WqOFkeVvArPC/nsSnDNZQ1aT53oUmd2GbQViZ UsAx8tIsOYUDi6IIl40a930zWsF6US2SJ5kbR2MenN 6lLg0sm/R8H5RwN8FN1wIvS7ndfzH+71T3rAxkhKU8cB5s5C5xce9sPnl7EeczKV0srYa14Kn0ilW2ol dyb0evAiDMXRG5rr5RgkNGhOrwsHz8MJHICY9RM+koX9n5fMg8wTQM30kQbopBQPya5gCmMw5LKEa76q 52vQDLvwg7XssaNaqUqW1bra0zHGyml+8jYm5x4jYe SPJRQMDbwnaZVBo64dFR6UuVESV8xgR5ht5OVvlsSdH7tKKNw3qDpfLlxhGlW5JgH4CNNvg0AsVGNPiB 6RUZ+ngPK46VJ+SW6YwZYFqknPw7ABkzyMcA6Xxj3aIWHCLMD/jQQyvp+wcOsH3joHc3xtyw22at/Sofie [file] PrCWSP/MAP/T+computing consultant+5//RmTkQHE2P32iShzGyVLh/yPcRBap0IbmQ2n/B9R49EDUnEnF2Fa+jpxdo6wco [file] ICAgICAgICAgICAgICAgICAgICAgICAgICAgICAgIC AgICAgICAgICAgICAgICAgICAgICAgICAgICAgICAgICAgICAgICAgICAgICAgICAgICAgICAgICAgIC IwBIJcPW4SEEXhATEeOPXfAPDwEKYaACRlUYPgCMWsNFGbNELgBJPzLSDcBPLoJASbOMGoWZAxXIEmGE AgICAgICAgICAgICAgICAgICAgICAgICAgICAgICAg GHAkBPIeZTJzWCBqQKFdUB7QIPYzXSGlDNAiPOKhCQZwXBSeEAErTNXdKHNgJCJlBTMnGPOeSOWjLWWr KTOyLWJtZTFdBWWuHDNiTGSfOEQoUNZfVHBcXQIaWLZmBORkZQOhSKZvSKAbTCMkESMdARScNJXySM4R ICAgICAgICAgICAgICAgICAgICAgICAgICAgICAgIC AgICAgICAgICAgICAgICAgICAgICAgICAgICAgICAgICAgICAgICAgICAgICAgICAgICAgICAgICAgIC EfMZDlXBJgUZ2CAZAjVYLkWRZpBRGdOSTbNYCwSEQkHTZdOHCrQCFpKNKxPPUySKBaGJUeEEOoBXMoRS AgICAgICAgICAgICAgICAgICAgICAgICAgICAgICAg UCCaNRDuRYRmJUYqJFAkJLJrKE1RBYEuWGXnWLIkSEUwSCTeUOHuLKVwNIZtMFQdRUWmYEBgSOCtPTSd ICAgICAgICAgICAgICAgICAgICAgICAgICAgICAgICAgICAgICAgICAgICAgICAgICAgICAgICAgICAg KX6SFZAxJAHgYHMfGCWgETJwSLWvRCGdVGMxZXVhYB AgICAgICAgICAgICAgICAgICAgICAgICAgICAgICAgICAgICAgICAgICAgICAgICAgICAgICAgICAgIC OrGAZaDACfHGUsTO2RPQEbLBBjFIVbJYZrRXUgNRTtZRZaMVDqXLEdSQUkFSQfJWHcTODkZSNiJOHgWZ AgICAgICAgICAgICAgICAgICAgICAgICAgICAgICAg SGAuHFOsECGpJZSkUPBrRDVnBXCpPV2LCQOoOVFkMTEmPLNxWSYsRNOuHDFfZSKhSNVwIHAsCJTvEKLa ICAgICAgICAgICAgICAgICAgICAgICAgICAgICAgICAgICAgICAgICAgICAgICAgICAgICAgICAgICAg QKYzBK5YJPUpMNRfAKJzTEOtSOTcOZBgPNZaQOUgEV AgICAgICAgICAgICAgICAgICAgICAgICAgICAgICAgICAgICAgICAgICAgICAgICAgICAgICAgICAgIC RvEZWlHGRaJCUiNIMiYD7GRC99hNOyb0X4ENNuAZ4npjc/Ph8MQKnmclKaxBGzVS7SLmIzZQ3ncu9CWl OmPA2ehz0PADiUSpCvQ1N3fIDtNKQsDEJHJwOwO44i IVlpJc53DCudRFEmYpJgDNc7Nh4NZpYaD1eoHZArJnW6UPOyGvI7HIZuLvW0AYOvKxUpMNKrQPRiTIFk LJBFDMI0PJBkYmGkTrRdRRGvQUdlJQDLEFBqLBVsFaAxZuEhRWDlOM7ZQFRhJ029frWdMJTTPs0+DQpl teLjEusQBiEbSYNtj5XxZKr5TO8IEAJlSjzgb8WnNY OfWOTFNCmlGM5JNCT7LVQkLEGrMj0WYTHaY171gaFfKU0GTv1UMgUwHH9mfv2MAMGvQEIaFgrQSru5RN icUB4RhYGsMAtRbb4yduKtmbBGj7OynwRztZPLcOOuP9BaksghSewhnKkrZAKmDIIeHWRwIw3uYGQyMI N6RfR7JDKMSW9PPPAoNMWkqCHzFQLnPCPMFZ5QYDpx ABL4QTFlkqNxrLNfTZiaWW6KYFBqbxScJULkBZXELHv+Rf7DUQ7ex7BbBLh4AwKoUV3wgt3LETeEVsOl X6F4bBUpB9E6NEhdTn1BOYHkDBKcHnzzZUKCIAdkMJ5GPR0tqgU4RL1ZcTIyCSDqCXZooVLlTAx6N62j qXNuHKljPV5SHKZ+Sadie+Sn4NZLGgVHWgJVUrEqHsBQ ZBQnEkR5ZfS9OHj4FxR4ItGW04vDwwhwDgLGicTA2LFB2zZNFbFOBBBH1RmGSzfI9gdoZ5VGCsOZGDEh LnP03iwNHxZIUeSMG5DSSfUr1KMPEzA7XznmLknRsmcxAgZEGmUPSRWN5UKQzvknRfnZRlgAteTB82kZ ksVZ5RYf5YAyQwVJ8ohm5KiJSaFw8CZPI1Qo2OOUXy CWGqRVXwDVI7OOTvGdSmOWtqBBUvHABqSKF0NHHoYJGwHY3DYxDaXKUnKgEfGLBwINNhMTHcnr9TZDFj FHR7DDa1CSEgIVBpYEJsGRscKGFzOCPtDWN9JDAdFGEfXY5LYdRtLIJzPBH1IGnmHLEpZSZlbn2LDCQo DRYpVAl1CROuTPOqELFvMYpsWWHoPWS8JUrsOEPlEF QmGX5WEhOoIUHkPDguOSzsEFYqDWJtlf2UXTUyHNKwJEvcGLZgPKVcPMYxXRruQWAiYLReYBF1ELSxFX GiHI2GReJlFSRjFQS0HGLsMQLkCRQazz8AHKZsLNMvYLIuWCAlQXSvIBSzHNumGSZvBUA2ZtUzBYGtKE PbNY5HTxInWKHxVMr7HHKuNTIeWKRjnv5LDAWnZOMt UWe8BkMwUZJsEOXeYMycVTMrZPHcFAecBQRkKEWzPN4IVwHrTMCdPbS9APyqNJZrGRUiqn8QFWTeMIKe GbfsANKlVORyLBVfGGufPVGxAZO1QTE6BDShAHMqIH8JVxWyHLFlBuW1MGPsAIByZFSalm4DQCIaNZFf QZR0WXRzIBUjHBNvTXjaLKOkXOYyWpp6KBOdSNHzZN 1YUvCiDSMgUxX2JuLiDLKyZYBmab0TBFXyEYKvBENkYVSaITGzTHWiPFqiYQWbSXN4BWilDRMoMZImWB 5KYwFrAEDoUoJpGJssETPiBLIbdq5JBWAzZHCoMPU6HREwCWFlEKCxQAvgMHIdVGQ9CJQiMDJbEFBeNP 0XTnSgXECqIyY6RiFfFEFhNWEmgk3NULJbTRGuFyji XSPsTVFxODRrQDrhFBKoSPE2XqyxOHVaCNSwHT6BIoVtZUTzEEf2FKPzRWDjYJCsro4UOJMbCTD7UWY2 QYAyYJGvOMSqTFiyMKIdDEA1IRS7RQXbIVPoMK1YHdBzGRPhJRr8QZFrBQIlOLJrig4IXJFdRLF3VLA8 RhGpNSLlRQAaLQafTTJzVMT0TJK5SQPwBKCoLP4BWy KsHNFdGhRoZzSnGVOaJSUltx8TRPCeXWM8BOBtQCXrJJItXMKnPTccLBAfERWaLNU0PMBkOVJiMV3KQc JlYWUpIoMtZZTyFEXvATXcqe6XYHBmOBD4YiN1EPPkGHVyQPTmZWp7ufYteCVbHJr1BL5YE7SemaBsYB KEDr6Sz043MYBmZSWnWx9UU3dxGk7yXZUwTHWWJr7H QYe5FbEqNSR6IxhgCHbkFXTvEbb5IOx1ATvnXNIyCSW0GSz+JAotB8B9XxhvZ4QpACDtJUZsMBhwTbek B1RnUJSzCEd1VF8dDPHYBe7+IOdrcQFtgDjbGDYODoHyRAQiPBfqTIFEKs8D ID Date Data Source LAMOTRIGINE (LAMICTAL) 03/20/2020 12:00[facility] Name Value Range Interpretation Code Description Data Corrie rce(s) Supporting Document(s) 0.6 2.0-20.0 LAMOTRIGINE (LAMICTAL) [facility] ([facility]ly [facility]) ID Date Data Source [id number] 03/20/2020 12:00:00 AM EST eCW1 ([facility]) Name Value Range Interpretation Code Description Data Corrie rce(s) Supporting Document(s) Hemoglobin A1c/Hemoglobin.total in Blood 5.3 HEMOGLOBIN A1c eCW1 ([facility]) ID Date Data Source [id number] 02/08/2020 09:00:00 AM EDT [facility] Name Value Range Interpretation Code Description Data Corrie rce(s) Supporting Document(s) SARS coronavirus 2 RNA [facility] This lab was ordered by [facility] and reported by [facility]. ID Date Data Source [id number] 01/31/2020 09:01:00 AM EDT [facility] [address] [place] [address] PHONE: [phone] FAX: [phone] Name .................. : SOCO Wisdom Acct Number.................. : [id number] ROOM. ................. : TR-07 MR Number ................... : [id number] Stay type ............. : E/R Discharge Date......... ... : 01/29/20 Admit Date ......... : 01/29/20 Admit Phys .................... : WEI BRISCOE Date of ....... : 1990 Family Phys ................... : SEMAJ VAUGHN Phone .................. : [phone] Age ................................ : 29 Film# .................. .:[id number] Sex ................................. : F Unsigned transcriptions are preliminary reports and do not represent a medical or legal document CT ABD & PELV W/O ORAL W/O IV [id number] COMPLETE:01/29/20 07:22 RLB [id number] Reason(s): periumbilical pain w vomiting CT SCAN [...] or ureteral calculi. Page 1 of 2 [place] [address] PHONE: [phone] FAX: [phone] Name ............. ..... : SOCO Wisdom Acct Number.................. : [id number] ROOM. ................. : TR-07 Number ................... : [id number] Stay type ............. : E/R Discharge Date......... ... : 01/29/20 Admit Date ......... : 01/29/20 Admit Phys .................... : WEI BRISCOE Date of ....... : 1990 Family Phys ................... : SEMAJ VAUGHN Phone .................. : [phone] Age ................................ : 29 Film# .................. .:[id number] Sex ................................. : F Unsigned transcriptions are preliminary reports and do not represent a medical or legal document CT ABD & PELV W/O ORAL W/O IV [id number] COMPLETE:01/29/20 07:22 RLB [id number] Reason(s): periumbilical pain w vomiting While performing [...] rce(s) Supporting Document(s) ID Date Data Source [id number] 01/31/2020 09:00:00 AM EDT [address] [place] [address] PHONE: [phone] FAX: [phone] Name .................. : SOCO Wisdom Acct Number.................. : [id number] ROOM. ................. : TR-07 MR Number ................... : [id number] Stay type ............. : E/R Discharge Date......... ... : 01/29/20 Admit Date ......... : 01/29/20 Admit Phys .................... : WEI BRISCOE Date of ....... : 1990 Family Phys ................... : SEMAJ VAUGHN [facility] .................. : [phone] Age ................................ : 29 Film# .................. .:[id number] Sex ................................. : F Unsigned transcriptions are preliminary reports and do not represent a medical or legal document CHEST PORTABLE [id number] COMPLETE:01/29/20 06:31 RLB [id number] Reason(s): seizure PORTABLE CHEST X-RAY: COMPARISON: 09/22/11 FINDINGS: There is no evidence of acute consolidation or congestive heart failure. The heart is not enlarged. There is no hilar adenopathy. IMPRESSION: No evidence of significant acute pulmonary disease. Electronically Reviewed and Signed By Madhu Costa MD , 01/31/20 09:00, [facility] Transcribe Initials: EPHRAIM , Transcribe Date: 01/29/20 23:31, Dictation Date: Copy for: 710 MED REC DISCHARGED Page 1 of 1 Name Value Range Interpretation Code Description Data Corrie rce(s) Supporting Document(s) ID Date Data Source [id number] 01/31/2020 09:00:00 AM EDT [facility] [address] [place] [address] PHONE: [phone] FAX: [phone] Name .................. : SOCO Wisdom Acct Number.................. : [id number] ROOM. ................. : TR-07 Number ................... : [id number] Stay type ............. : E/R Discharge Date......... ... : 01/29/20 Admit Date ......... : 01/29/20 Admit Phys .................... : WEI BRISCOE Date of ....... : 1990 Family Phys ................... : DYLLANSHANON VAUGHN Phone .................. : [phone] Age ................................ : 29 Film# .................. .:[id number] Sex ................................. : F Unsigned transcriptions are preliminary reports and do not represent a medical or legal document CT HEAD W/O CONTRAST [id number] COMPLETE:01/29/20 07:41 [id number] Reason(s): Headache CT SCAN OF THE HEAD [...] By Madhu Costa MD , 01/31/20 09:00, [facility] Transcribe Initials: EPHRAIM , Transcribe Date: 01/29/20 16:29, Dictation Date: Page 1 of 2 [place] [address] PHONE: [phone] FAX: [phone] Name .................. : SOCO VAUGHNCLAUDINE Wisdom Acct Number.................. : [id number] ROOM. ................. : TR-07 MR Number ................... : [id number] Stay type ............. : E/R Discharge Date......... ... : 01/29/20 Admit Date ......... : 01/29/20 Admit Phys .................... : WEI BRISCOE Date of ....... : 1990 Family Phys ................... : SEMAJ VAUGHN Phone .................. : [phone] Age ................................ : 29 Film# .................. .:[id number] Sex ................................. : F Unsigned transcriptions are preliminary reports and do not represent a medical or legal document CT HEAD W/O CONTRAST [id number] COMPLETE:01/29/20 07:41 [id number] Reason(s): Headache Copy for: 710 MED REC DISCHARGED Page 2 of 2 Name Value Range Interpretation Code Description Data Corrie rce(s) Supporting Document(s) ID Date Data Source [id number] 01/29/2020 06:03:00 AM EDT [facility] 1 OrderSheet [facility] [address] [place] [address] Phone #: ext- [phone] 01/29/2020 06:00 Patient: NERY WAN Sex: F : 1990 Age: 29yWEIGHT:68.0 kg (S) HEIGHT:64 inches (S) BMI:25.8ALLERGIES: Fentanyl and Related, IV Contrast, Ketamine, LatexCHIEF COMPLAINT: seizure, x1, seizure, [id number]: Seizure, Abdominal painLAB ORDERSOrder Description Priority Entered Acknowledged [facility] 06:12 01/29/2020 06:31 [...] Ying; Reason for Study: seizure 2 OrderSheet [facility] [address] [place] [address] Phone #: ext- [phone] 01/29/2020 06:00 Patient: [...] with Dextrose Physician;Intravenous 100 mL(D5W) 3 OrderSheet [facility] [address] [place] [address] Phone #: ext- [phone] 01/29/2020 06:00 Patient: NERY WAN Sex: F : 1990 Age: 29yGENERAL ORDERSOrder Description Priority Entered Acknowledged InitialedBlood Pressure 06:12 01/29/2020 06:30 [place],Monitor Manuelito Carvajal R.N., M.D.;Tool Radial Drill Press Set Up Operator 06:12 01/29/2020 06:30 [place](continuous) Manuelito Carvajal R.N., [...] rce(s) Supporting Document(s) ID Date Data Source [id number] 01/29/2020 06:03:00 AM EDT [facility] 1 Medication Reconciliation Report [facility] [address] [place] [address] Phone #: ext- [phone] 01/29/2020 06:00 Patient: [...] 01/29/2020 6:50:00 AM 2 Medication Reconciliation Report [facility] [address] [place] [address] Phone #: ext- [phone] 01/29/2020 06:00 Patient: [...] rce(s) Supporting Document(s) ID Date Data Source [id number] 01/29/2020 06:03:00 AM EDT [facility] 1 Medication Administration Record [facility] [address] [place] [address] Phone #: ext- [phone] 01/29/2020 06:00 Patient: NERY WAN Sex: F : 1990 Age: 29yWeight: 68.0 kgHeight/Length: 64 inBMI: 25.8ALLERGIES: Fentanyl and Related, Ketamine, Latex, IV Contrast Date/Time Medication Administered Medication OrderedGiven ATIVAN [IVP] (LORAZEPAM) Ativan IVP 2 mg (HIGH ALERT06:14 01/29/2020 Dose: 2 mg IVP MEDICATION)Glenys Sullivan R.N. Site: #1Start NS [IV] NS IV 1000 mL Bolus: : Bolus 486035:50 01/29/2020 Dose: IV Fluids mL (X1)Denys Niño R.N. Bolus: 1000 mL wide open---- Dispensed: 1000 mL bagStop Site: #1 right EJ07:38 01/29/2020Rahda Sharma RKaylahNKaylahStart PHENERGAN [IV DRIP] Phenergan IV [...] rce(s) Supporting Document(s) ID Date Data Source [id number] 01/29/2020 06:03:00 AM EDT [facility] 1 General Instructions [facility] [address] [place] [address] Phone #: ext- [phone] 01/29/2020 06:00 Patient: [...] rce(s) Supporting Document(s) ID Date Data Source [id number] 01/29/2020 06:03:00 AM EDT [facility] 1 Clinical Report - Nurses [facility] [address] [place] [address] Phone #: ext- [phone] 01/29/2020 06:00 Patient: NERY WAN Sex: F : 1990 Age: 29yTRIAGEArrived by private vehicle. ( Per patient's fiance, patient was released from [facility] for seizures. Hx ofseizures. Per report, patient was home for an hour and began complaining of abdominal pain andrequested to go to the hospital. While in the car, patient had a seizure and became unresponsive. Patientassisted to room 7. Dr. Carvajal to bedside.).Triage time: 06:07 01/29/2020. Acuity: LEVEL 1.Chief Complaint: SEIZURE and (became unresponsive in car).Not alert.Onset: just prior to arrival.Treatment CLOTH PRESSER:Seen within the last 24 hours at another [...] tablet, daily. 2 Clinical Report - Nurses [facility] [address] [place] [address] Phone #: ext- [phone] 01/29/2020 06:00 Patient: [...] in arms/hands). --06:34 01/29/20 Glenys Sullivan R.N. electronic device monitor, NIBP monitor and pulse oximeter placed on patient. EKG time: (06:16 01/29/2020). EKG was performed by a nurse and shown to the ED physician. Patient gowned. Reassurance given. Patient identifiers checked. Call light placed in reach. Bed placed in lowest position. Brakes of bed on. --06:35 01/29/20 Glenys Sullivan R.N. 3 Clinical Report - Nurses [facility] [address] [place] [address] Phone #: ext- [phone] 01/29/2020 06:00 Patient: [...] status is 4 Clinical Report - Nurses [facility] [address] [place] [address] Phone #: ext- [phone] 01/29/2020 06:00 Patient: [...] ( pt now to be transferred [facility]). --10:01/29/20 Wesley Childers RN 11:11 [...] Wesley Childers RN.DISPOSITION / DISCHARGE Transferred to [facility]. Visit overview and summary of care [...] Childers RN 5 Clinical Report - Nurses [facility] [address] [place] [address] Phone #: ext- [phone] 01/29/2020 06:00 Patient: NERY WAN Sex: F : 1990 Age: 29y De parture time: 11:59 01/29/2020. --11:59 01/29/20 Wesley Childers RN.Locked/Released at 01/29/2020 11:59 by Wesley Childers RN Name Value Range Interpretation Code Description Data Corrie rce(s) Supporting Document(s) ID Date Data Source [id number] 01/29/2020 06:03:00 AM EDT [facility] 1 Clinical Report - Physicians/Mid Levels [facility] [address] [place] [address] Phone #: ext- [phone] 01/29/2020 06:00 Patient: [...] pt was admitted 4 weeks ago in [place] and 2 weeks ago in [place], and had multiple scans and EEG, to find out it's stress related; pt arguing w neighbors lately; pt was just released from [facility] ER CLOTH PRESSER, went home for about 1 hour then asked her fianc?e to be brought here, not feeling well, and she began shaking in car, in route. Similar symptoms previously. Patient has had similar symptoms many times, chronically. Recent medical care: The patient was seen recently at another facility in the emergency department. ( [facility] last evening).REVIEW OF SYSTEMSNo fever, [...] lymphoma. 2 Clinical Report - Physicians/Mid Levels [facility] [address] [place] [address] Phone #: ext- [phone] 01/29/2020 06:00 Patient: [...] normal. 3 Clinical Report - Physicians/Mid Levels [facility] [address] [place] [address] Phone #: ext- [phone] 01/29/2020 06:00 Patient: [...] 5.0) 4 Clinical Report - Physicians/Mid Levels [facility] [address] [place] [address] Phone #: ext- [phone] 01/29/2020 06:00 Patient: [...] Thrombosis, Pulmonary Embolus, Tissue heart valves, Acute ME Atrial Fibrillation, Valvular heart disease and recurrent Systemic Embolism. -International Normalized Ratio (INR): 2.5 - 3.5 for Mechanical Prosthetic valve. Troponin-T: (HUSSEIN: 01/29/2020 06:17) ( MigRcvd 01/29/2020 06:47) Final results Test Result Flag Units (Reference) TROPONIN T <0.01 NG/ML (0.00 - 0.10) TROPONIN T0.1 ng/ml Recommended as the clinical threshold value forTroponin T. Magnesium: (HUSSEIN: 01/29/2020 06:17) ( [facility] 06[facility]46) Final results Test Result Flag Units (Reference) MAGNESIUM 1.9 MG/DL (1.7 - 2.2) Chest Portable 1 View: (HUSSEIN: 01/29/2020 06:12) ( MigRcvd 01/29/2020 06:31) In Progress CHEST PORTABLE Reason(s): seizure TRANSPORTATION: P IV? O2? Oxygen?(No) Room: ED. 5 Clinical Report - Physicians/Mid Levels [facility] [address] [place] [address] Phone #: ext- [phone] 01/29/2020 06:00 [id number] Sex: F : 1990 Age: 29yPROGRESS AND [...] and hospitalized. ( Has been hospitalized in [place] 4 weeks ago and [facility] 2 weeks ago and has had multiple scans and EEGs. Just seen and released from [facility] ED 1 hour before arriving here at [facility]REVIEW OF SYSTEMSNo fever, chest pain, palpitations, cough or difficulty breathing. No eye irritation, sore throat, diarrhea,black stools or difficulty with urination. No vomiting or bloody stools. The patient has had abdominal painand nausea. 6 Clinical Report - Physicians/Mid Levels [facility] [address] [place] [address] Phone #: ext- [phone] 01/29/2020 06:00 Patient: [...] the 7 Clinical Report - Physicians/Mid Levels [facility] [address] [place] [address] Phone #: ext- [phone] 01/29/2020 06:00 Patient: [...] Not IndicateDrug Screen-Urine: (HUSSEIN: 01/29/2020 08:00) ( [facility] 01/29/2020 08:51) Final results Test Result Flag [...] PRESUMPTIVE POSITIVE CONFIRMATION [facility] PEL W/O Oral W/O IV Contrast: (HUSSEIN: 01/29/2020 06:54) ( MigRcvd 01/29/2020 07:22) InProgressCT ABDReason(s): periumbilical pain w vomitingTRANSPORTATION: S IV? IV?(Yes) O2? Oxygen?(No) RoCT Abd PEL W/ IV Contrast Only: (HUSSEIN: 01/29/2020 06:41) ( MsgRcvd 01/29/2020 06:54) CanceledReason(s): periumbilical pain w vomitingReason(s): periumbilical pain w vomitingTRANSPORTATION: S IV? IV?(Yes) O2? Oxygen?(No) RoCBC w Diff: (HUSSEIN: 01/29/2020 06:17) ( [facility] 01/29/2020 06:50) Final results 8 Clinical Report - Physicians/Mid Levels [facility] [address] [place] [address] Phone #: ext- [phone] 01/29/2020 06:00 Patient: [...] Male GFR Interprentation 20-49 yrs >60 mL/min Hnvnvo43-13 yrs >56 mL/min Normal 60-69 yrs >49 mL/min Normal 70-79yrs>42 mL/min Normal 80 and above >35 mL/min Normal Female GFRInterpretation 20-39 yrs >60 mL/min Normal 40-49 yrs >58 mL/min 9 Clinical Report - Physicians/Mid Levels [facility] [address] [place] [address] Phone #: ext- [phone] 01/29/2020 06:00 [id number] Sex: F : 1990 Age: 29y Normal 50-59 yrs >51 mL/min Normal 60-69 yrs >45 mL/min Normal 70- 79 yrs >39 mL/min Normal 80 and above >32 mL/min Normal PT/PTT: (HUSSEIN: 01/29/2020 06:17) ( [facility] 01/29/2020 06:49) Final results Test Result Flag Units (Reference) PROTIME 13.3 SECONDS (11.0 - 15.5) INR 1.00 (0.93 - 1.23) PTT 29.0 SECONDS (24.8 - 36.7) \\BLDo\\INR INTERPRETATION\\BLDx\\ Therapeutic range for Coumadin and related oral anticoagulants. -International Normalized Ratio (INR): 2.0 - 3.0 for Venous Thrombosis, Pulmonary Embolus, Tissue heart valves, Acute ME Atrial Fibrillation, Valvular heart disease and recurrent [...] NEGATIVE (NORMAL: NEGAT { KIT LOT # [id number] ){ KIT EXP DATE 01.20.21 ){ PROCEDURAL [...] unremarkable. 10 Clinical Report - Physicians/Mid Levels [facility] [address] [place] [address] Phone #: ext- [phone] 01/29/2020 06:00 Patient: NERY WAN Sex: F : 1990 Age: 29y Labs are unremarkable. Pt. wants to be transferred to [facility], but she has apparently been evaluated and discharged from there recently. I will speak to Neurology at [facility] and get their opinion. 11:16 Jan 29 2020. Pt. was accepted for transfer to [place] ED by Dr. Cronin at 10:45AM. Pt. [...] to transfer explained to patient. Transferred to [facility]. Summary of care (CCDA) provided to transport team, EMS, patient, family and transfer facility via paper and digital media. 10:45 Jan 29 2020 Transfer to [facility] by ambulance as per Dr. Cronin [...] rce(s) Supporting Document(s) ID Date Data Source [id number] 01/29/2020 06:59:00 [place] [address] RESPIRATORY CARE REPORT ==== ---------NAME------- NUMBER SEX AGE ADMIT DISC. XRAY# F/C [id number] Wisdom [id number] F 29 01/29/20 01/29/20 [id number] XBE E/R DATE OF : 1990 M/R# [id number] #: [id number] TR-07 LOCATION: EKG [id number] COMPLETE:01/29/20 0 8:16 [facility] [id number] PHYSICIAN: WEI BRISCOE Name Value Range Interpretation Code Description Data Corrie rce(s) Supporting Document(s) ID Date Data Source [id number] 01/29/2020 08:51:00 AM EDT [facility] Name Value Range Interpretation Code Description Data [facility](s) Supporting Document(s) DRUG SCREEN URINE [facility] URINE DRUG SCREEN Amphetamine [Presence] in Urine by Screen method NEGATIVE NORMAL: N EGATIVE [facility] BARBITURATES NEGATIVE NORMAL: NEGATIVE [facility] BENZO NEGATIVE NORMAL: NEGATIVE [facility] COCAINE NEGATIVE NORMAL: NEGATIVE [facility] Tetrahydrocannabinol [Presence] in Urine NEGATIVE NORMAL: NEGATIVE [facility] OPIATES NEGATIVE NORMAL: NEGATIVE [facility] Phencyclidine [Presence] in Urine by Screen method NEGATIVE NOR MAL: NEGATIVE [facility] \\BLDo\\URINE DRUG SCR EEN INTERPRETATION\\BLDx\\ THE CUTOFFF LEVELS FOR DETECTION ARE FOLLOWS: AMPHETAMINES 1000 ng/ml BARBITUARATES 200 ng/ml BENZODIAZEPINES 100 ng/ml THC 50 ng/ml PHENCYCLIDINE 25 ng/ml OPIATES 300 ng/ml COCAINE 300 ng/ml ALL POSITIVES ARE CONSIDERED PRESUMPTIVE POSITIVE CONFIRMATION WILL BE PERFORMED AT PHYSICIAN REQUEST. ID Date Data Source [id number] 01/29/2020 08:42:00 AM EDT [facility] Name Value Range Interpretation Code Description Data [facility](s) Supporting Document(s) [facility] COLOR yellow NORMAL: Yellow [facility] CLARITY clear NORMAL: Clear [facility] Specific gravity of Urine by Test strip 1.005 1.001 - 1.030 [facility] pH 7 5 - 9 [facility] al Glucose [Mass/volume] in Urine by Test strip NORM NORMAL: Negat [facility] Bilirubin.total [Presence] in Urine by Test strip NEG NORMAL: Negative [facility] Ketones [Presence] in Urine by Test strip 5 NORMAL: Negative [facility] Protein [Mass/volume] in Urine by Test strip NEG NORMAL: Negat [facility] Nitrite [Presence] in Urine by Test strip NEG NORMAL: Negative [facility] BLOOD NEG NORMAL: Negative [facility] Leukocyte esterase [Presence] in Urine by Test strip NEG STORMY L: Negative [facility] Urobilinogen [Mass/volume] in Urine by Test strip NOR less sapphire n 1.0 mg/dL [facility] MICROSCOPIC Not Indicate [facility] ID Date Data Source [id number] 01/29/2020 07:41:00 AM EDT [facility] Name Value Range Interpretation Code Description Data Corrie rce(s) Supporting Document(s) HCG SERUM QUAL NEGATIVE NORMAL: NEGATIVE [facility] HCG SERUM QL REENTER NEGATIVE NORMAL: NEGATIVE [facility] [id number] ){ KIT EXP DATE 01.20.21 ){ PROCEDURAL CONTROL VALID ) ID Date Data Source [id number] 01/29/2020 06:50:00 AM EDT [facility] Name Value Range Interpretation Code Description Data Corrie rce(s) Supporting Document(s) CBC W/AUTOMATED DIFF [facility] COMPLETE BLOOD COUNT Leukocytes [#/volume] in Blood by Automated count 6.7 10^3/uL 4.2 - 1 1.0 [facility] Erythrocytes [#/volume] in Blood by Automated count 4.35 10^6/uL 4. 20 - 5.40 [facility] Hemoglobin [Mass/volume] in Blood 11.8 g/dL 12.0 - 16.0 L [facility] Hematocrit [Volume Fraction] of Blood by Automated count 36.4 % 3 7.0 - 47.0 L [facility] Erythrocyte mean corpuscular volume [Entitic volume] by Auto mated count 83.7 fL 81.0 - 101 [facility] Erythrocyte mean corpuscular hemoglobin [Entitic mass] by Automated count 27.1 pg 27.0 - 34.0 [facility] Erythrocyte mean corpuscular hemoglobin concentration [Mass/volume] by Automated count 32.4 g/dL 31.0 - 36.0 [facility] Erythrocyte distribution width [Ratio] by Automated count 13.9 % 11.5 - 14.5 [facility] Platelets [#/volume] in Blood by Automated count 189 10^3/uL 150 - 45 0 [facility] Platelet mean volume [Entitic volume] in Blood by Automated count 9.6 fL 7.4 - 10.4 [facility] Neutrophils/100 leukocytes in Blood by Automated count 78.6 % 37. 0 - 80.0 [facility] Lymphocytes/100 leukocytes in Blood by Manual count 14.9 % 25.0 - 40.0 L [facility] Monocytes/100 leukocytes in Blood by Automated count 5.7 % 3.0 - 8.0 [facility] Eosinophils/100 leukocytes in Blood by Automated count 0.3 % 0.0 - 7.0 [facility] Basophils/100 leukocytes in Blood by Automated count 0.3 % 0.0 - 2.5 [facility] %IG 0.2 % 0.0 - 0.0 [facility] %NRBC 0.0 % 0.0 - 0.0 [facility] al Neutrophils [#/volume] in Blood by Automated count 5.23 10^3/uL 2.00 - 6.90 [facility] Lymphocytes [#/volume] in Blood by Automated count 0.99 10^3/uL 0.60 - 3.40 [facility] Monocytes [#/volume] in Blood by Automated count 0.38 10^3/uL 0.00 - 0.90 [facility] Eosinophils [#/volume] in Blood by Automated count 0.02 10^3/uL 0.00 - 0.70 [facility] Basophils [#/volume] in Blood by Automated count 0.02 10^3/uL 0.00 - 0.20 [facility] #IG 0.01 10^3/uL 0.00 - 0.10 [facility] ospital #NRBC 0.00 10^3/uL 0.00 - 0.00 [facility]spital MANUAL DIFF NOT INDICATED [facility] RBC MORPH NOT INDICATED [facility] ID Date Data Source [id number] 01/29/2020 06:49:00 AM EDT [facility] Name Value Range Interpretation Code Description Data Corrie rce(s) Supporting Document(s) Prothrombin time (PT) 13.3 SECONDS 11.0 - 15.5 [facility] INR in Platelet poor plasma by Coagulation assay 1.00 0.93 - 1. 23 [facility] aPTT in Blood by Coagulation assay 29.0 SECONDS 24.8 - 36.7 [facility] \\BLDo\\INR INTERPRETATION\\BLDx\\ Therapeutic range for Coumadin and related oral anticoagulants. - International Normalized Ratio (INR): 2.0 - 3.0 for Venous Thrombosis, Pulmonary Embolus, Tissue heart valves, Acute ME Atrial Fibrillation, Valvular heart disease and recurrent Systemic Embolism. - International Normalized Ratio (INR): 2.5 - 3.5 for Mechanical Prosthetic valve. ID Date Data Source [id number] 01/29/2020 06:47:00 AM EDT [facility] Name Value Range Interpretation Code Description Data Corrie rce(s) Supporting Document(s) COMPREHENSIVE METABOLIC PANEL [facility] COMPREHENSIVE METABOLIC PANEL Sodium [Moles/volume] in Serum or Plasma 140 mEq/L 134 - 153 [facility] Potassium [Moles/volume] in Serum or Plasma 4.0 mEq/L 3.6 - 5.0 [facility] Chloride [Moles/volume] in Serum or Plasma 107 mEq/L 98 - 107 [facility] Carbon dioxide, total [Moles/volume] in Serum or Plasma 24 MEQ/L 22 - 30 [facility] Glucose [Mass/volume] in Serum or Plasma 112 MG/DL 65 - 110 H [facility] BUN 8 MG/DL 7 - [facility] Creat[facility] [Mass/volume] in Serum or Plasma 0.6 MG/DL 0.7 - 1.5 L [facility] BUN/CREAT 13 8 - 27 [facility] al Protein [Mass/volume] in Serum or Plasma 6.6 G/DL 6.3 - 8.2 [facility] Albumin [Mass/volume] in Serum or Plasma 4.5 G/DL 3.9 - 5.0 [facility] Globulin [Mass/volume] in Serum by calculation 2.1 GM/DL 2.4 - 3.2 L [facility] A/G RATIO 2.1 0.8 - 2.0 [facility] Calcium [Mass/volume] in Serum or Plasma 9.1 MG/DL 8.4 - 10.2 [facility] Bilirubin.total [Mass/volume] in Serum or Plasma <0.7 MG/DL 0.2 - 1.3 [facility] Alkaline phosphatase [Enzymatic activity/volume] in Serum or Plasma 57 U/L 38 - 126 [facility] Aspartate aminotransferase [Enzymatic activity/volume] in Serum or Plasma 12 U/L 5 - 40 [facility] Alanine aminotransferase [Enzymatic activity/volume] in Seru m or Plasma 9 U/L 7 - 56 [facility] Anion gap 3 in Serum or Plasma 9.0 mmol/L 8.0 - 16.0 [facility] AGE 29 yrs [facility] NON-AA GFR >60 mL/min [facility] AFR AMER GFR >60 mL/min [facility] Male GFR In [...] >32 mL/min Normal ID Date Data Source [id number] 01/29/2020 06:47:00 AM EDT [facility] Name Value Range Interpretation Code Description Data Corrie rce(s) Supporting Document(s) TROPONIN T <0.01 NG/ML 0.00 - 0.10 [facility] ospital TROPONIN T0.1 ng/ml Recommended as the c linical threshold value forTroponin T. ID Date Data Source [id number] 01/29/2020 06:46:00 AM EDT [facility] Name Value Range Interpretation Code Description Data Corrie rce(s) Supporting Document(s) Magnesium [Mass/volume] in Serum or Plasma 1.9 MG/DL 1.7 - 2.2 [facility] ID Date Data Source [id number] 01/28/2020 07:27:58 PM EDT [facility] Name Value Range Interpretation Code Description Data Corrie rce(s) Supporting Document(s) Progress Note [facility] HTSIHe4zYdUYWrQt46/IZDyuNZPdl4IdVTdpHWd2SPlqHIYiX2KlGJT8hV3wUWB2DJzVKaNoTbClPXSt lbm [file] WJz87bO/3/Blow Molder+xcs+N8l2iHeu+ZTceyHrB2u7iBzZdQXj5dy5BefbMTwWnZFU49/r/7cY1Dt2lvnpnxV [file] VhxZJP0KKeTZPR/MAP/T+computing consultant+5//YbJqJPW9C37dNal [file] AgICAgICAgICAgICAgICAgICAgICAgICAgICAgICAg DFMoNFAsPCUlSDIhYTAxJOCuVHIfRLIbIQZuUSQtSWUgFWMmSFYqES1CBTEjPHQyVBIyXYReIOKcAUMw ICAgICAgICAgICAgICAgICAgICAgICAgICAgICAgICAgICAgICAgICAgICAgICAgICAgICAgICAgICAg PPQfWJUsHYAsFQTaQTUpXJRxSBDlYY8KZVFdISHlZJ AgICAgICAgICAgICAgICAgICAgICAgICAgICAgICAgICAgICAgICAgICAgICAgICAgICAgICAgICAgIC YeHMCfYFQhJISqXTQvGNDlBVBgEEDnKHBvLKWzKZSpHJ3YZFBnDAAqZAWkOYMfVUZaXTYeCICmOKIhGL AgICAgICAgICAgICAgICAgICAgICAgICAgICAgICAg MMNmWVBxXRVmLXRvWHBiSKIkKZXbVHAxOAQxKKUcEWCvDVUwIJGeVPYkID5EJDMgZUHvVZCeELLqYWCa ICAgICAgICAgICAgICAgICAgICAgICAgICAgICAgICAgICAgICAgICAgICAgICAgICAgICAgICAgICAg FIHzDHUxWFBqOYLvDRVfRUIrXAUdDAZsMI6DKMFzKH AgICAgICAgICAgICAgICAgICAgICAgICAgICAgICAgICAgICAgICAgICAgICAgICAgICAgICAgICAgIC YgDDGwAAWgDXClHMInNEBcNUUkYLEqFVUwWBLiLQRfUXItYZ1TEZQaDLPtOLXiFGOpYSDyRMFpHZHnNH AgICAgICAgICAgICAgICAgICAgICAgICAgICAgICAg MEBrWUIjJCBnTQIjTWZbMXQbHRAgMAHmZOWzKSVkIGJdBJIcONVrGODqCOWhON9EJSTsRMKdUKFdAZDi ICAgICAgICAgICAgICAgICAgICAgICAgICAgICAgICAgICAgICAgICAgICAgICAgICAgICAgICAgICAg JAEcLDEcZKKaVHRyOREaPHZrOMChEOAaISQfEH6FLD AgICAgICAgICAgICAgICAgICAgICAgICAgICAgICAgICAgICAgICAgICAgICAgICAgICAgICAgICAgIC PaPLXpRZJqYULkNNCyALIhUKGwWQLvJXYlIXQuVEHvDVAxTDCyZL4AQSPwFBGcSIUzRHLyEJIcOVIvTF AgICAgICAgICAgICAgICAgICAgICAgICAgICAgICAg YQTsBDYnDZMpOCWdHRMaVTFsUWNkKPJaGZTvMTPhQBTxOSDoGITsLFUlVFTbAWPfSQ8GGF63oHNgi8S8 LNIuGA7smre/Vd5PDMalbzGhdBYyPU0WHzZzFA6wdr7YJpUzFE6zpf8DHKjISgJaL3D2nDAuQYCeNSMF EuJbX68kKJfnCw48BAysOFQvTzDjBUh7Oz7GJjGrS9 xgLIYcSzI6RHCtKpU5OCTpYdS7KUXgQpAiDASzVXHuBPAwSCTYDNJ8ZKQeSdPhKnIdRSTfZIfzITGVPZ GmEQZcKoPaXaXaTRTbKlItOKWEHR0HJfFnH8NhcJ54BTLyNAd+Sr7MBZ6sk8VjWCl5RyUmNW8bgd8QMU lBGvEgR3DelpU8IPEzPFTfHo1FWHSsFYOymDM4YaBy XQSWQpKuQ6YuuT01AMTCFc1+JClyyyGbZrqELmYeEJXlt3NdKFd1SL5QUYPoDBx2pKZqPDUnT2Log8Ge Tw07QIHeEmmvCGuhfdrbqI6eXSqlf6VpNT8VSKI6VPSlYiCaZnQiCwYeLGN5CnErHZ1lQRlfEL7FGQU9 AWboDEDuQLLmX6bBShMcKCWnVVUihGpbWF9ESyWrF7 DajmTniTE3XpNrTEANQs6+SReugrJvHzjHLvB5NPNeb9QxMDe8BK5IAKGtZLsxMB8VQEMvdN9sSNuyOE 7TYgE6BFJqCAUQGcFjA24cwJBsMPg8F9NuPrIxXRBvBcgiELUtHDtdErIiTCFnQwWnEEvzWZ1+ID4+DQ feKB8CZEvhxaWeXMZoMl3YXGVeNQQkLT8rPBDhHFMk A2T5tKupZZDUIzWwI9gkppnwPD2lNGZqX344pPsmjuQmQKFsFAStUq6DMMCnZUE8RPCicVZdPZDeXGIP MJnpLY7OqNEoYUJ6bY7jGTqwSEOlKUZeN2iNQlTewRyvNA68eHstgoJdrWYbNBw+Cu9EPM6rn1FuPDi0 syOeJVtlXGE8PUgwICTnMSElFVXpVBL1MFK8XFYWWu ZpJKPuVBXwGZsjTREqXQYbyd1WWHWrDYB3UCB9RdGdAAXeDQNgHKgqGOMjAUVdVQS7MVRhFRVjPJ1BDk RiGCYaQJNpUNivHYFhDNSdva5EVBPaVRNtSHL8ABFlUKDwOTZdLMfcADIjHPA9AdfqYGHzUUKqVQ3SJb WsBFGhBFz9IbGzHNSsKDHhhf1YBEMoWMJjDLMrRcCp RPJaLOMkTAwgTGTpFUDpLAEnDACvBPCiQA3PKjRuPNRyJYMvMMImTTYdCIAkkt3VNNElDFBwMQw1PDNs MFZgRSWvQJfrIYRvVCU9TXyxRABsCCQqPB3KCrGzSTRcCKr7KjMmRJQoYESzgu2XRQXbTENpEdRqXURr KAPrRVClZBvyAVHsRBOpAFgwTBQoMTOiNY8GHkQsYV ZwIxUtKxksHXHaJFHely0LXCTuOAVtJzFeJKExOKKdPSFaJYufIZVnTTQfCMO8RISpJSEeRQ7SWdKxVJ QsHtUiUTnzPFRzFTKswj3ORHKvIMAqMdF7TUQmLKVnGFQyDIutOKZmKIYcHkZ5JJRfKTBjDF0SUtRoZC MaPmD9IVZjXBMnYMWvlc9PLFKxFKUyDSWsSaEvVJRu OUGmBLylIBEsMRT0LqCeROPiUDUvPH3TAlBaDPWySyEkBrScDMKmLLVqgq9ZSTXpSVQvNPX3FOCiHPFy ZNHwHDzmBELdLDP7XNN3YGPoEEMvWO2ASuJpTRXtWqE5RnIeLJGoEFFsow2XSUPgICRqJlmrRVHgYKRg PSSpAPwnTBKqGPR9YqC3LPHeSFXnNE5QSmZeITMgAj g9XbAfXYRdDCDtdo7CQAYgYRLgFGS9FXWfHSPuDKNgKVytXVXhDQT9FnYfMWTjLIUmDA2DQhBgZJQuOM tvAKChIGDkDQMcsg4SQBWkGXM0SAHlMoSnMIFiOQIpWGuoKSRjBFD1GLQ6HBAmUXJtIW7TUaKrNDZxVz QbAADyWQGmDYDuil8HRNHbIEB5GPj0PFTdJHEkEKHv XJmjOOEgKOBxXIcyGWLyHAWvCR1EEtIlWBYiVsYeIrKcIQQcNLJpve4ARVHoLQV8UTs5BrVlEVNmQPHj VPyeGGPbTPIdJle8TPWaAUSxFJ9CJpGmNGTgWiVnIBOvWRVjJHSggh1DJHNlYHQ1OcGiCDWvZEUxPQCd WIk8atDfrNUkZEh7KK6OV0EighYhVQYZPf6Tc870BN M3HZOoCg9DT6qyDx2pZWYcPYMBSv5LSEk8NUHkGSGwVlD9ASG2Qhg5AKP1FNXwYPN3QkAsVHDyHWC+ID jzH7J1YAK4Seh5PpRhSFRhPKVjDFQyYrKmHZB8TMH4Sf9uNBAIWp8+NXfiyRHglSkgOOEVDxAfKnX8SU vbLNSOQr5Y ID Date Data Source FREE T4 & TSH PANEL 01/21/2020 07:39:50 AM EDT eCW1 ([facility]) Name Value Range Interpretation Code Description Data Corrie rce(s) Supporting Document(s) 2.200 THYROID STIMULATING HORMONE eC W1 ([facility]) 1.01 FREE T4 eCW1 ([facility] ID Date Data Source [id number] 01/18/2020 08:29:15 AM EDT [facility] Name Value Range Interpretation Code Description Data Corrie rce(s) Supporting Document(s) Progress Note [facility] SVQMWj9nKmIKExQn48/FEHakFPBxc7XoYLysLCk8TXvyMOGkJ7TwPOV9wZ2uCLL7GDxRWjUnGwSqPDZt lbm [file] CKU0LAjoWED1KRDhZdGbJR5LXi4SBcV2ELZ6cECxQw8SEJngOuEVYtIhMP6IMQw= ID Date Data Source [id number] 01/18/2020 08:29:10 AM EDT [facility] Name Value Range Interpretation Code Description Data Corrie rce(s) Supporting Document(s) Progress Note [facility] UUWJMo3kHbKQDjHe91/RKCahOPDfv2ChNOffLYu4CCjtEJEuI3HaKER1mU7kKEJ1PStGPfAwOjRyGWVu lbm [file] porwuiB5+JGIq2JbvFwbR7AlW1fprNkbn73yA32smh/7CsS/computing consultant/6nVK28TU3L9k6GZhK5tL1L8Itu0eZ JfUYLTqiWmtM0ngq+EcgcdJVx4wL2drEX5g/C2teuo gAVrc5Mp3gdHrvN6ckLUZ8B4DMj6aljIhT+JMFA8Xtm6i3wdwEYUi3ewIgnYGcBXlrwPe2OoO8zPida+ QO1SfHGn2o1V0Q3cG/+hAelkz5kVOaioORhw1YxU/8odRT2aO2X1I74hW8IvB5dYO/rpmogbXabkT8Cf /2yU/3zkyB4yqwMtNk1cBRyOH04h7wz+bQx9pPFuOe [facility]+uUVjKoZt+aw2xDw/o3J4HaMC+0kuv1moSu9eT9fgWKmaEMCKGZ9tTMRoUZLDPsaRAalm9DoB+7 [file] pI9nt00XQ76kmEz66ckh1lqh1w1eQt3YkxFk6jBv1UE/AZ1jsjrlF0/XvR/tCBwrUMpG+Meléndez+Rsat2ZC [file] AgICAgICAgICAgICAgICAgICAgICAgICAgICAgICAgICAgICAgICAgICAgICAgICAgICAgICAgICAgIC AgICAgICAgICAgICAgICAgICAgICANCiAgICAgICAg ICAgICAgICAgICAgICAgICAgICAgICAgICAgICAgICAgICAgICAgICAgICAgICAgICAgICAgICAgICAg ICAgICAgICAgICAgICAgICAgICAgICAgICAgICAgICANCiAgICAgICAgICAgICAgICAgICAgICAgICAg ICAgICAgICAgICAgICAgICAgICAgICAgICAgICAgIC AgICAgICAgICAgICAgICAgICAgICAgICAgICAgICAgICAgICAgICAgICANCiAgICAgICAgICAgICAgIC AgICAgICAgICAgICAgICAgICAgICAgICAgICAgICAgICAgICAgICAgICAgICAgICAgICAgICAgICAgIC AgICAgICAgICAgICAgICAgICAgICAgICANCiAgICAg ICAgICAgICAgICAgICAgICAgICAgICAgICAgICAgICAgICAgICAgICAgICAgICAgICAgICAgICAgICAg ICAgICAgICAgICAgICAgICAgICAgICAgICAgICAgICAgICANCiAgICAgICAgICAgICAgICAgICAgICAg ICAgICAgICAgICAgICAgICAgICAgICAgICAgICAgIC AgICAgICAgICAgICAgICAgICAgICAgICAgICAgICAgICAgICAgICAgICAgICANCiAgICAgICAgICAgIC AgICAgICAgICAgICAgICAgICAgICAgICAgICAgICAgICAgICAgICAgICAgICAgICAgICAgICAgICAgIC AgICAgICAgICAgICAgICAgICAgICAgICAgICANCiAg ICAgICAgICAgICAgICAgICAgICAgICAgICAgICAgICAgICAgICAgICAgICAgICAgICAgICAgICAgICAg ICAgICAgICAgICAgICAgICAgICAgICAgICAgICAgICAgICAgICANCiAgICAgICAgICAgICAgICAgICAg ICAgICAgICAgICAgICAgICAgICAgICAgICAgICAgIC AgICAgICAgICAgICAgICAgICAgICAgICAgICAgICAgICAgICAgICAgICAgICAgICANCiAgICAgICAgIC AgICAgICAgICAgICAgICAgICAgICAgICAgICAgICAgICAgICAgICAgICAgICAgICAgICAgICAgICAgIC AgICAgICAgICAgICAgICAgICAgICAgICAgICAgICAN Cjw/sNQqJ5lwdABfxsP4G7btEu9EFi5NIV5ub6QgNHVdTRlugvRyUapYMgUvYVNnIggNHrd0RRcfOE2M uLZnC9LyF6EzMBoyCJ8DEYYnTZZdfHNtFMEzEMPvKnE6RBDnRKjqJX3RuPQeFOfdGEMkSKJhAvUuNSAr OSAwIFIgMTEgMCBSIDEzIDAgUiAxNSAwIFIgMTcgMC DGYB3GPaVbN4EgpM92IUzPIq2+IRmybyIeEwxUMgO7LFDuy4KvSEj4WP5LPJIgMzueo3CjCrAnJTBMRB ehXS6NWDC3PBB0HDWpIv9MMDZwW051jqWcRQ2XSw0KFwGcKL3vpf2MBaVoISRyLtfWPdl6EIdiHJ6OfJ HdPIhQbe2fesTzeyUBv7UriaAcfTRMHGBwARI3by2d zsodNBBcLHRfZX6uMD0uLVBmQCL0XcFyVKRSDH1RNAMuFJOwzYXnNJAvKEZTNI8BYAkqOUY2EBIlclKt jFBaOVkwPA8PSYGtotFfYuVeTECWZKv+Zd1GHI9lw8PnIQutPtJbKI6qpa7HCSlZHpXhU8F6hEChQ7Y7 TDycCl8BSBZsGAHoJvQaWDARJYbhYQ8VAC3fyyF2MN 1RwCZlOURoEMRkeTRrTLj9P74ibXMgTLiwGC8LQKO+Sadie+Wo0PIUSdLIWoFWHsMxPfDNWGUxCaB3AyY7 NAc7TrE1PnXR10nFxcrpSvOYvqKD6CJG4iIMPpUQYQJB8PwOCaeM5pdtHmIVNbLQVHFiZzQ56hjZWvMX TjKTKeCQSjYr9RDUKdY0DiruRvhGcgtuIsBQCkRWSY NB7QMBwhvxJmtLRyiXrhGX77vMfhNL3RBt8INaEeAF4skt2CgECaGt9VPIAhBi0QXNIaDWSvXZNrOBH9 BKWdZuSaAKlxFKJoUAMhYPO1QQLtXBTwUS6FTmDlWKRvTwD6SLRsBDOkLKUpsp0ZRAIhOMDfRFVjPVHt GUCkSLKaUIglXGXzVZYzGZF2UGYfUNRgWO6FHuAbXF LjMFY0OMFsWCMbHFAtnt4BOJZhYCRkUxx3ToJbXIHjDLLhDKglVPAkWQZ8OYS9YCSvMFCmCO2ZCmLqIB ZaAKorElYoJEGkRIVdmi8MTALcPYMiGDWiRZZiQSMbEYHvCTtiRWUjKYPqLcY7GWKrLHFtCP3IToYuVG HtQVL1AIMwGASvWIDwcb3MDOOyDBCiMbp6LBHxCQKt ENZlDRlvONIzPWQ5WQO8KOChVGEnFI0RFhRpXPTwEQI9OzYdBIPiDKEdfb7CECLgPWVwBOPoIFFwUAHp PEKxROhvNONoFLY2SmHbQVKdSAMeMV4CZdBnTBCjWPq7JKclYRIvZGThyp8RRGVtFIEsJSXaVRMgOCDj HJNlALayDYVtVQSiFVQ7KTVvILOyKV7HMtHjOHIfTe WdTxOcAGVsNEFhye7VJZGxIXMgYML1WPKtVEWtFYDbZZajWJVjFKGaEBT9LJUmVHLqMV3IKrTfRTQrEs Q5LJHsKHArUPLjxv6IEWZrYYMxUxw9QBTgONEhSRSjOIwcVGGtPGG8LuE4QQNkCUZsBK6ZUaEwCBJoZb X1TUgzFCVqPDSijg3VKWGdRJYrTOt2ONFuERKuOSBs YQzvSKWuLSK6ZXP6SLNfSZNtZZ0IBbYuCMAaRuGjMBFaUWBkNJTlah8CZINtMUAtFaQ1DHTjILHdLWOj IHerABYzHLS3Sta0PGCePOQwPR4KOnPeZKKcOlI5IcQvUSNrJQPcfs5FDLIjATIbXig7XIPtGJNoFTNn KAyoGHOxGPB9WhR4PTSoIIYuNL4CQdFcRGEdYwg2Vf FpZRSjPTTnvh3TTFSxNCIuBCD5XzKsIJNcHUGsJKf1oaZurQVvJNa5QX4KY8MjshBzRpaQNa7Ne471WL S6KMKiGy3PP0ttGn1hAFErORBDAu6PYBg2WkW1SwwsVDPcDQvjDlL0SNHqZHZ2RdBnKJG0DAA0WnQ+ID g1DDjnH4IeKlPaVTOqLVCiTzL4OsD8WcO3BHY6NXm0 YQ2jJQDODz8+EZdfkKXwdNuxZQPFGlT7XSVfVOlgBWAXBt5Z ID Date Data Source [id number] 01/16/2020 01:09:59 AM EDT [facility] Name Value Range Interpretation Code Description Data Corrie rce(s) Supporting Document(s) ED Provider Note [facility] OGMOZq6eKeVWHjTx90/SHCcrOBLlf3YrETosHNg0XIhyVBYzU0ZbSRG7rJ6cEEG2KGjGImPmVqHtXBEw lbm [file] y67aXFnA72uC6apAsJa67fwq2kY13Hv7MhHM2EXwlastln6xqp9NrfH4le/16g81B96QgUqrxoEM+Student Financial Aid Manager [file] RHIJZsxKXqWUXKq0MerhMkyXISLGVtLKpnDHYMdqKi qUwiFz2hIPFuCE5mPu2dGFEnBMK8WvB8PYSVJU8PLQZaCUTnnCJpUTM0KNHdFmOvYHitEEHbQaP1SE56 yQozCW1PKNLmBOWqOB51LAQqREEsAk5IKSVeCVQtluN4OQLoRZMJKvWjJ65bbPFeLqYdJLFGFJx+Pg0K PM8lf7QaOLf3XjTjPC8ypv6CYXiRSvFoI4LbqZjiJM HDBL6nqXLuCIW9MWnvsXJtOFNjpYQno8sbpjjaDb1fHFTdSW7hQr9yNZKoNYY8TdH3PQXMEL7ZPWEpNF MfaHKuNGJ0AHAaSpMrTBeeKPTiYTJ5BQ04jUepXP8DXUVfIQLwRV90DUEnUWYtGz5TWRSkMMScnsU2JN AwIFINCj4+TZtgjwFjBrrSWiLuREBui8EdCHw6CP2B AYWqFQqeDH4PPUTtbB8sWMwnBG5VXwO5YBJcPAUDHbDdU15ymOUxABm0M3AgNlKnDQClNhpyIAXxSNnt TmFtZXMgWyBdDQogID4+ID4+UFkeSO1YUDunjaIoNXGdDi8CHMRrWUGdLF9eMZOrZPByH0Q3rOvgDWLW TmPaP4jiydbkRR1eGONoC296xCdhxyVlWPAmEXDiOj 5KADZgDHO7BPWnsOPzHOHnVANTWIsgCE3NgVYoUHD7yT9sYXbjODPmTZUxP8nFXzNboXpwYB88lZptri VsbCBdDQo+Qq6SLA6pp5CqHAx8vvQnEVmlLNT4TUoeJODhORDmKXHbHTO5JJU1JCZUFlTmAOVlTGMiTS bdGLVoREEqbj3WKBXmNOO5EGt3LIXdIQDqOEIdQZqe TMJqJXvlSaZlOVQkAZXuZK3PQsJqBFYwSZFoWEjhIJBcTNPfcl8GXXPdWWVkIoN5HsGpUAErCJLoQQnc HIPlXPTxGdTgABYzAGEfGD5OIbOnWTSsOIO2HbAkQDMxIVBeon1GQIOeJMGxCcHaOwWxKHDaMMGtQNjh GAXmFHR6SWLzYQCrGZZjHD9SSvBbKSFzSLsuPDHzQM HzVIUldc9RJAEvQDUhEkJ9VsUjVBLbUHZjHWysCSIzOMIxSFK1DWCvEOMuJQ6XPoZhVMSqZRD1TVfpFH AfXIUivr4XRYKrKYSfLMpiZTPpSDYyKVHyIWgkTTJxEFT5CwVwGEWlQXEjUK2AJdVqRGRgBJw4AwjzWA RxODOltu3TNXBgASGrOLsxSMYaWFRsJCJvWOwcGMNz QMRnFAL4LIAfIBNhZG5CGxSlWZSxEeLlPCZlYHTyBGHjxh3UPXXeTZBjXrW5VpDkQIJaERCzIPjjXRNh LFV5ESTpELYvBJRkIT9IJfIeYGXwDkFbWXxkCNXrTUIutl6MGTZrUZYrPQp5QvDoPMUhSMQrNNxdTCMg VPN0WWq3HSGgXFFnCW0CRsJzWTXhYxh0XVyhOEEsDV Yrsg6MCALhIYOlGRD4UJHaEDWmPPFzLXarWMUtEDBrHfG0GEHqGWShRT1QIrEeAPLfDQS4FoQwGPXlAS Oidf6VXGQiPRJ5DmB1KMFhFOSsZOMhFYbbORAdJVFgUZR2LJTiZOYnNX7YBlKeTEYtPAE7JazmZUZyKU Kkev4BBLSiXIA0BBTqXWRdAFVhCUJpQVfbEOTxKXW0 LVQ8KPTdFUIzVY4BOvEuOVJbYVQ4JaOmKVEeFAAwzf2NEJEyCNU4AAp9RNMrXKNbKXFxIJwkDAErSUO2 DMM4PUNhKZIiUB0KMlEkHCCvHsM0JsUsMNDgSSCtfv1VUKLtBRE7OhI8YgEfZFGfVMWoJXfeCOUqQAN7 YZzoBWYyRSCgVE9JYaKbSCKwEyqqRoWvCFIsOVQqvz 3KGHSjUHB9IrV4YJImXSQmEJNqEHbiRANnXUT4CKQ8OCNbJOLoNB4EJsQsAHKtUccbTEByJDVzLJWheo 3JUIAuJIS5FTR7SfUhONRtDLKgZJkxHOBiKOy2HXX0TEOeBROuBU6MTkZoFKBxROVyIhGxYXRwDUNvpe 8GFFAwYLU9CEK9FhEiYQVeRAFeOOheYJFzBTbiMdhl RCUdNFAgES6TClLqSUBrYGJ3VhmiGAHwFGNupz6XDGJaSYP0FBD2THAzPNInYZCfTZvhMRThAKieEydo RRIpUPQbQT3LJmYtOOTfPVI5GcFoDGNhJQSsaf3LEVRkOXB4RrHwQvLeGPLrESYwMYggXUTrIJulJmH2 WGBzYDOjKK3UCkFsCBYdMIP0YIteHZReJFMzpz7SAH UmZJQ0QsT0KUIuBVFuGYXrQOzkTIPcCHioHdP8EHSxNCMbOF9ILoVhRATlCAY4ZFElVTMrGMXety5BIF IvYNQ7HMVxGOPvVIWkOHZgZPxsXDOzZNx2SkZ0CKOiDSHnTA1ZWxTvHKCjLGJ2YQVxXYZyVTJkdn2JIN SpZHA0LDH0SGHwYSWlPJGlCClhVUIrEAh3BNN5YTLt NINfHN7EAuYuRFzlOWTEPdc4OCqrN5t8HJE3GT8QD6Igh1PeErIbZBNETHgqWT7jumLzNJAmAf3CA2vL LzulChR3HHMjETj3OHF8RWreS8MwG1U7UUs8J9B4GcZhVD8jIHGeFJP4LxAaZkB3DqS7BPJvDIOhUlp4 HNDsItm1FcU7GeRbRO3PCf0MVgA9PCX1pPKtYi8ZFEMdVlNEVxXkIU0AGFt= ID Date Data Source [id number] 01/14/2020 08:03:12 PM EDT [facility] Name Value Range Interpretation Code Description Data Corrie rce(s) Supporting Document(s) Discharge Summary [facility] QKDILm6mZjHZUdGq91/QZQpcKSLjn8QeXMthMWy6WNgzTOJhM2VxYNB7zO9pSHS7PTyYMuWoGvOzNTS8 lbm [file] JppZrBcNWyVKn7Nf/election assistant/NhpLOt+OTF764URWuraXb [file] ICAgICAgICAgICAgICAgICAgICAgICAgICAgICAgICAgICAgICAgICAgICAgICAgICAgICAgICAgICAg ICAgICAgICAgICAgICAgICAgICAgICAgICANCiAgICAgICAgICAgICAgICAgICAgICAgICAgICAgICAg ICAgICAgICAgICAgICAgICAgICAgICAgICAgICAgIC AgICAgICAgICAgICAgICAgICAgICAgICAgICAgICAgICAgICANCiAgICAgICAgICAgICAgICAgICAgIC AgICAgICAgICAgICAgICAgICAgICAgICAgICAgICAgICAgICAgICAgICAgICAgICAgICAgICAgICAgIC AgICAgICAgICAgICAgICAgICANCiAgICAgICAgICAg ICAgICAgICAgICAgICAgICAgICAgICAgICAgICAgICAgICAgICAgICAgICAgICAgICAgICAgICAgICAg ICAgICAgICAgICAgICAgICAgICAgICAgICAgICANCiAgICAgICAgICAgICAgICAgICAgICAgICAgICAg ICAgICAgICAgICAgICAgICAgICAgICAgICAgICAgIC AgICAgICAgICAgICAgICAgICAgICAgICAgICAgICAgICAgICAgICANCiAgICAgICAgICAgICAgICAgIC AgICAgICAgICAgICAgICAgICAgICAgICAgICAgICAgICAgICAgICAgICAgICAgICAgICAgICAgICAgIC AgICAgICAgICAgICAgICAgICAgICANCiAgICAgICAg ICAgICAgICAgICAgICAgICAgICAgICAgICAgICAgICAgICAgICAgICAgICAgICAgICAgICAgICAgICAg ICAgICAgICAgICAgICAgICAgICAgICAgICAgICAgICANCiAgICAgICAgICAgICAgICAgICAgICAgICAg ICAgICAgICAgICAgICAgICAgICAgICAgICAgICAgIC AgICAgICAgICAgICAgICAgICAgICAgICAgICAgICAgICAgICAgICAgICANCiAgICAgICAgICAgICAgIC AgICAgICAgICAgICAgICAgICAgICAgICAgICAgICAgICAgICAgICAgICAgICAgICAgICAgICAgICAgIC AgICAgICAgICAgICAgICAgICAgICAgICANCiAgICAg ICAgICAgICAgICAgICAgICAgICAgICAgICAgICAgICAgICAgICAgICAgICAgICAgICAgICAgICAgICAg ICAgICAgICAgICAgICAgICAgICAgICAgICAgICAgICAgICANCjw/mUJuZ9jvpZHpsnP9S9ifPh6KGa2D ME5vp2ZgLXHeZEvoxeOsVnqAYfCwREIzZjhWUsm8VL ekKF6MfPFxY3PoJ6DlNGfkWS6JSOMmJZGzyGTvUPCnHWViXoQ2KQSwGMhfAD0JtUBxBSzyJGAxAIVcAr KxZHZrMQOrPWMmPISzXQRMXDZbJAFsRtQdMPcqIF8Ki1HtbKI5OBq+Od0PDD7sy1TiXWwzSJCoHD5suv 6MTDhCDeMvJ3EoshG7TJHuSZDaOw8MYPCcBJPrfHTe ENTtDLRSIuFxR4TgnE05QDGPIh7+QIiyonDqMimVEjLpMZEgg7HwNZr7ZL6KCHUdXBo0kRMdNJzwI8on ttcxVVI2gH2niarcTaiuHdwaYQCYn0szKyyhPONbOYZiZM9xLI3xSPNkYHN7AqHaUFOVHC9CCUYgKYJb dUYkZWKwZZCHVM6MOJvxVXF8MGKwxnDqnBVhUXqwJF 9QYXJlbnQgMzAgMCBSDQo+Cv4NZX1eg6QoHNfuOeFgOV3lzt3TJAgJQoWrP7L0eYTeB6H9FDebRk6SZF AuWJXmPgysWAGYGFzaGB2SRP4sxwJ6RP2QhFKuVDIcLJRbeQUmGIh7Y57zmOWtYFviJQ6THRC+Sadie+Pg 4HKJDoTXRzMHSvWuZqJBWENcRjP0DuW8GYh7VrJ5Rh LS22kUqrmdJsOObeEX7WAU3mQGLtBXMHQD9TzUOheV1rcuTuIAOmCXIBXfNrQ95bsYOvUBTiOKZ6QJXq Pj3KNULlA5RfohJjjVckzmFyJHZmVPRFVO1CJOruxfKekDVmnBcmKM06nIcbJB2GNf1GDjKzUZ7ncp2S sIZoHp2ZMVMjSl0ZHKGxGPIaOPMnMZW5FJJqDsGfXN qpLXObLXGpWZT7DWAwNRXjFI3KNwIeDKAjJoT3CvQoGBOqKTAdwn5NTQNzMENcYiT1WDIhDCNeBHBdBC vyDHRgPRLwGBY7EYXpCBMcPY6MMcAwWXMhBHP6CBSsIDEwMCUcis5QCRQiZNAeJQE9GFXzGQGxCYClIT glEBFqXHS5MdYgYCZeQTZyQU8GVuTlAEGrZMe9QoZg UJSlDURenr0TDYTgWFUzYUK0FqGpVKZtOVGtVCvtAQArPOWjOJg3ZBKyZUXgGU4MYaZqFOWzBDX9NbNr WLIrYWSgru7AJILuCBHwKZV8UHUjQNHdABPyUEdsSWFuACL0WQqyKSRbDZZbMD6GJlChGHUbZCPkBOAd OUGmAEIdpc1UEQVmYRJcVvF7FaNkQTQrSMWxGBytZI CfDBU5QSChNRAsKOOvAP7KCcRwQPWzCOS4UtFqWXJnKAVfws0PYWTfWRGjImO9ENJwSJThWVHhXWguUN MxDLS8KPw9MTOuPRAiHH6GLhNxPLHvISuoFiYwWFQsFWMtwg2VHLMoQZZeAQMeJNSrSYMwXVWjEWhtWD WsOFM1XlEmXJQjVDCjCZ0FHgOlBGSeUCb4LWZaREJr BVAxam8BIEWrRQCiFYyiQZCvEQHrFGKyRBroPSJhCFDsIKU2AWGzOCDgEO9QBnBaCQBwEtOqWdvhOHUl FJGgvr4ZNUZyTZUkGBT1JzOtIZIvVXXpIWfsYDFeOXZbBzIbVQXhGXXzLR9PDsOdEOBmJzUpHhpgDFUa TNGoxw6COVRdLVBtYsU1RqStSVTzXMRlRBhqKQOzKC GmGhY5CRLcZILiUW6CCpVpBOBoSjR0SEQyCSGbQQDjec5VqIBszQueyi1WQUfVUg7QyIflBWZhZCucFd 7aiGRfKfLaOWRSAa4CmnZaVCSsCSJNSCpyDITjHAlgRfX2JZShGcV7ICFkIeR2SGY3EMGiI6V2FmIpKa D8MmP8AAWsCcNxRxDpSQO3G8KjTFQlXaB8PDH4AmOo NYW6Tsf+MM0uFPy+Fv[id number]== ID Date Data Source [id number] 01/14/2020 04:27:39 AM EDT [facility] Name Value Range Interpretation Code Description Data Corrie rce(s) Supporting Document(s) Leukocytes [#/volume] in Blood by Automated count 5.4 10*3/uL 4-10 [facility] Erythrocytes [#/volume] in Blood by Automated count 4.39 10*6/uL 4.1- 5.3 [facility] Hemoglobin [Mass/volume] in Blood 12.1 g/dL 11.5-15.5 [facility] Hematocrit [Volume Fraction] of Blood by Automated count 37.4 % 3 6-45 [facility] Erythrocyte mean corpuscular volume [Entitic volume] by Auto mated count 85.2 fL 80-96 [facility] Erythrocyte mean corpuscular hemoglobin [Entitic mass] by Automated count 27.5 pg 27-33 [facility] Erythrocyte mean corpuscular hemoglobin concentration [Mass/volume] by Automated count 32.3 g/dL [facility].0-[facility]0 [facility] width [Ratio] by Automated count 14.9 % 11.5-14.5 H [facility] Platelets [#/volume] in Blood by Automated count 180 10*3/uL 150-400 [facility] Differential cell count method - Blood [facility] Neutrophils/100 leukocytes in Blood by Automated count 58 % [facility] Lymphocytes/100 leukocytes in Blood by Automated count 31 % [facility] Monocytes/100 leukocytes in Blood by Automated count 8 % [facility] Eosinophils/100 leukocytes in Blood by Automated count 2 % [facility] Basophils/100 leukocytes in Blood by Automated count 1 % [facility] Neutrophils [#/volume] in Blood by Automated count 3.19 10*3/uL 1.8-7 .0 [facility] Lymphocytes [#/volume] in Blood by Automated count 1.66 10*3/uL 1.2-4 .0 [facility] Monocytes [#/volume] in Blood by Automated count 0.44 10*3/uL 0-0.8 [facility] Eosinophils [#/volume] in Blood by Automated count 0.13 10*3/uL 0-0.5 [facility] Basophils [#/volume] in Blood by Automated count 0.03 10*3/uL 0-0.2 [facility] Nucleated erythrocytes/100 leukocytes [Ratio] in Blood by Automated count 0 /100{WBCs} 0-0 [facility] ID Date Data Source [id number] 01/14/2020 04:47:09 AM EDT [facility] Name Value Range Interpretation Code Description Data Corrie rce(s) Supporting Document(s) Bicarbonate [Moles/volume] in Serum 22 mmol/L - [facility] Chloride [Moles/volume] in Serum or Plasma 105 mmol/L 98-107 [facility] Creatinine [Mass/volume] in Serum or Plasma 0.59 mg/dL 0.50-0.90 [facility] Glucose [Mass/volume] in Serum or Plasma 90 mg/dL 70-140 [facility] Potassium [Moles/volume] in Serum or Plasma 3.7 mmol/L 3.4-5.1 [facility] Sodium [Moles/volume] in Serum or Plasma 138 mmol/L 136-145 [facility] Urea nitrogen [Mass/volume] in Serum or Plasma 5 mg/dL 6-20 L [facility] Anion gap 3 in Serum or Plasma 11 mmol/L 8-15 [facility] Osmolality of Serum or Plasma by calculation 283 mosm/kg 275-300 [facility] Creatinine/Urea nitrogen [Mass Ratio] in Serum or Plasma 8 [facility] Calcium [Mass/volume] in Serum or Plasma 8.3 mg/dL 8.6-10.0 L [facility] Glomerular filtration rate/1.73 sq M pre dicted among non-blacks [Volume Rate/Area] in Serum or Plasma by Creatinine-based formula (MDRD) >6 0 [facility] Glomerular filtration rate/1.73 sq M pre dicted among blacks [Volume Rate/Area] in Serum or Plasma by Creatinine-based formula (MDRD) >60 [facility] ID Date Data Source [id number] 01/13/2020 09:34:16 AM EDT [facility] Name Value Range Interpretation Code Description Data Corrie rce(s) Supporting Document(s) [facility] LEAEJh2cNnZMJqMy63/KHZdwIAQep0DwZWjsRSf9XLfyHCYiN0MsWYP3sF1iHOZ0EQfKYrLkOnTfIHS8 m [file] ICAgICAgICAgICAgICAgICAgICAgICAgICAgICAgIC AgICAgICAgICAgICAgICAgICAgICAgICAgICAgICAgICAgICAgICAgICAgICAgICAgICAgICAgICAgIC WpRMLoFK1BLVYmQIOvAUVdNPEnEAQrVWBtIBTgULFjEOMtZMWtOCZoUWQbIPHrYLVhJGWtQPSbWXPcRJ AgICAgICAgICAgICAgICAgICAgICAgICAgICAgICAg JAGlBQEwSGQqNOEcCGOgCA4TIPPcVMCaQBReXQSgEAEsDQQjVKGdSUBqMLWwRXQwPBCzKGEyWIRzGGUt HMOqQDPeKFZhTKLsPIFsKURtNRBaIBUePZQvCKWlYIQePSHvNYHxZPTqNIYiEYJqOJEeHCUrQRGlSH9E ICAgICAgICAgICAgICAgICAgICAgICAgICAgICAgIC AgICAgICAgICAgICAgICAgICAgICAgICAgICAgICAgICAgICAgICAgICAgICAgICAgICAgICAgICAgIC QqDWNjVSGrGB8PITFrJDTiVCIbAMZkXOWwPZFnYUNpZLUxYFGxRLNnKXPtMBYrPHVfVYYeCHCuAAGeKQ AgICAgICAgICAgICAgICAgICAgICAgICAgICAgICAg CJIcBMZaTKVhHBDeRREkBKKaUD7RYPLlNAOuFLDxMNUoRFShKVRhGAJhLNZoFGLrNFKdVYOyBOIsWOGn ICAgICAgICAgICAgICAgICAgICAgICAgICAgICAgICAgICAgICAgICAgICAgICAgICAgICAgICAgICAg JM5KERCkCOWwBMDaOPPbUZYxBLIqGYDlATCfPEOuVD AgICAgICAgICAgICAgICAgICAgICAgICAgICAgICAgICAgICAgICAgICAgICAgICAgICAgICAgICAgIC UwHPKiVCMmNAIlCC0EXUIjLRUgDMBkYLPnCEYhRKUuCTPhURNkGFOaQPKlOEKtPGPmMSKkHMSiEARpSF AgICAgICAgICAgICAgICAgICAgICAgICAgICAgICAg QWRjZJWtNDAiPDAoIDApFRNbOAXjDF9FQNXcOUEnLTQdPTCzHSMfAVPmHSFwBHYySSUqUHAgVIGxVJVn ICAgICAgICAgICAgICAgICAgICAgICAgICAgICAgICAgICAgICAgICAgICAgICAgICAgICAgICAgICAg CGMwHC4SYXVgTUOkULKuKMTfYYAyZZAaPXMfPGPrIN AgICAgICAgICAgICAgICAgICAgICAgICAgICAgICAgICAgICAgICAgICAgICAgICAgICAgICAgICAgIC HgTBPnBFFbNFTeBCXmRY5UJD93cGGrf3C8FKCbUN9vrhf/Wh5DLPlkwrGtxURbEU4XNuInBK7wkf1DOy UiYO8hxc8LLBzIAfYvC4F6ySRnRFMtCDLYJkOhG82m EMvsVc81SBnwXGAzJuDzHGf1Px5MLdGvF7ehWDPkDyR6KGPqPqX4NUWhLrViMAmdWO8Lb9YshAPjJSo+ Ax0DKQ7nj4LcQYiyJuJaXW5xai5RAGvIOcSaC0KfodA6JYPyCNOjFa7HCQXdLLSdeEHsOuGjISOIXkFj W0VgfG76STLKBy3+FMsfijMbQayTYoSzAXUzk9HoSI d4FE6AJLPqWWm9dCNuA86rj6ZkvIVaJwciKsZotNWttxwaJYDQUAWuwA3mgJ6cHEULoWGpvFHzWFVqYV 9nTL9kHKWgBWP1KnBxHXAFYO5VGVSgVIQxmLIiLVQlMXHWXB1KOAwhGBQ0KZTcyvIbrZXqLWxeDW5MYN JlbnQgMjIgMCBSDQo+Fy1FDY1rz0AsXJklINKdXX1w he6BROyFXcSpP1T6zOGwZ1R2PBonUo4IUNClGKTxXhVbFTIJRIjiJJ4AGA4jkaJ3AZ2RdKNbBVBlAHDe pSAoUOy7T20bvEYyAMihHS7HVYE+Sadie+Nq8WDDUwRKIzILUjIbVmQXYGQyCrX3VlZ1CMt7WfL6HlVD56 cUvtzjOgUFvxMB7TPP7qTBLsBNUDOK6XkNOqoC9ljv PuCpHbVUPWTjUnK99gcSZoEYWfRXDuXZGiWi9GJVNvU8XwrlTytYdrcqYsFDLhMKCDIA3MSKbdocWvjA TshYbcPM57jAndRT4FHj0QFuUjKB0bkj8OvFFnIi4TEKHzLO6KOIUiMAVuMERfZHV3PMRxAmAhDJuaLA KzVIGqYVL4NTWqNATjNA1IEvLeEANaHQPnGdEtGUMp PLMoon3RSNDfYFDoQkQ7ZpCpBHIgULWfXCxpEIDwWFNkBXM5YPKzRLUeEQ0GRaTaIRCmWKU5QROaEGZa KESjuj2MWRUbXCKtDwi6XDGdFILcTRLpZUkwBEHkYJF6EuK4SGDzILWgUW6POiReKXNsMAY4ToHlSFZo VGDaay8NWLOyHHVuWNg6FXZpGGFxPIVmVWobOTSySF J3ZNz2OESaETJuPR0NKlLhTXXjFUKgHjemZCAvKDCrhs0ZUDPsIPPwHcCfXlYnHFMkHCQuBOnsVMNcQM L7ZQH0JBOlBSZfFE8GVwUjEDApNJy0CRptSZYwMFTlvm4SEOIaIYSlESG2LuVgZJWxWCQoWYnfMRSeUM X4Pea8ABOmJCAfJF3STaFoYURxMFw9ElMvXKSbXEXk rz9UZLBrYGDsHUubRdNkJOHyQESvMElzSKBbPBUzFUExGAByDCPrPP9WDfWsNHSqFAWrSVPtPDHfDANo xe2XSLVtFQErQZe0EaAyKQBhPAMrENrdTESiIIOnWYukWJNdOTNhKC9YXxOtLXLfKQHyHcBoNMMsIJKl wi5GWKKjOXJnTrCrYnMqHUEnJUUrEOk2lbZkaRStUB s1UC9DW9KgeiNcVrGTZe6Yx334YVZ6YQJqYq1TV0reTc6xCWWkZTDFGe0SMLr8QRcpPVT4RKBzX2WfJS MjBJYlVSj2YMZ7Y3HmUcI9GDD+INwqQ5FzLSH1UxHxGaPkNnC3EGJcKLmnNim5GUU2CRX0Kw7iYAFEYv 4+EWrhmNLnqNvbHRUUFxKjDlMqTDcwBHMYCd7T ID Date Data Source [id number] 01/13/2020 08:13:48 AM EDT [facility] Name Value Range Interpretation Code Description Data Corrie rce(s) Supporting Document(s) [facility] UUIDQv5lOyNJDpZaw2PyWjDmJAJyYZ7dodi7S0P1sZQjR0NnbKWkl3ilZ5GrB0YnBTTeOKAKIP4OoEZm jb2 [file] sj+BMQRW4IKFMoJ+TtoGRMX5YLCSpqHSoFNuZbzEHY q6x0SL9FnveDjT5VF412c8T2Y134BNxKQo/FZlSM3baOfLZ72fHleEwFtRypkXP2igXHdwElJZMUfGAU 2306WBLjNgVluOVGVhmuTH6xkBYJPiez3VqfRg06H68vDj12Hv8RlzsNehF4LPFaziP+lisXnVY+lr3O 1DJvX/0RjGzGlds4F9eouC27LZB0Ynh+wkg9xA30B8 q4RpbTl++gwzoun1v38vAJXyev+FoejbugeLo2QLhveixq7WdQdahfWg/CLJa6gCyLMjGWN/gL1tm+fY N1ti/5jzTSuHPk6MkUeiifOt/LVb96+Ck7XNMiS2wEA+oNk9ZS7zaBJR1L9NAkzxA21IXrTOwIkIkut0 m3SPwyiJvcibMZFvutarnS8wSnU2t5ltaBJZCtHsCE hcWAwBORzwrdjcJK5gAtvWYCFHIVeiQbOAQszQqiOpKSMcOTBaDcRV5SQol7McjMRg5OhJBZR8LgdXYI cFrwqSTdGZpwCNVZ2GEGKnVsYLDQ1LKMNgEyMXUG0TQGVqYirYQduq7S4zDwIctFwm8a8HkCfOYJOX3C mCgMDVi03iTuoTzC6V+ccpSoIkwoowLro7OrUnUvhG iJk7A/EFkjqwqXCmfOWzuWTejZTvzBPbe0qDxQDs+MJt+Nk+/GiRsdrQ4c9Yx7BL+3jUCoDVvJSbA1PT xsABl4Hx+wWo6Z4KAP+yshael2xCo2CIvMxH/nXHSIJHVn1MPKy+Af2AX/fHSYCT4xKXDiB5IVGnCDnd ZGIaiymkl2HBSkGYYOn6VeuEgAvSrFuUGVmDQOaMH1 zQL0ni0PIJJxGGxUeD2GIxIyTHgUdG472qy9ZP3KyQIR8nHmM6UCcYDU3tPMW/Ou1rMEv/IIJINkkEwS 9AeVj+GDYDLNLCPu42jsJOs4L9vC00zZofT2gVaUOmH93xqxX7dZZCxwRRxsqoy1nJ27qouuFIBRFDLU zYCkZNZwCVVOtWll2uHExE11PVdcvlBFNIvAgdP1BS Y+qsXlxXHVwzSQSQULwaMz3CU4GRI8oj4+4zbzIinAK8APAuPU2gHJOiw8gdJ7XlpYttBHicoI13jm3Y OpNtfZH+W2odmQR1oc6kx48jCVN2koN2s7ip0xFnC75KbzHU+cxgJmJ4uMv0dXf9Dxy45vpjbQ/2DlY1 tzRHy2lGm21DZZ6w/L/Hib76k7FCBhGTj+tv3nuqSo aG+ddVxFbc0Sjoivz5SymCr1HUiytvcE24bIRqEJqDEkCz4il/C18Wtv1RT0fdpyBZObP4ptOYc+loqH nfzeN5CT6RLPKK8rLe9FBeJUgDp2nfXhD7juW289PGUAaMgOisKkIwK/SD+ugb9SqV2LXwqZB0fuemPv jlMj9YItk4ij+AgkTuIknaSTBEmQDJJBMkkmyLwuCi QCIvHYybHVjUxKeYDlYFWkESjASBrC9uIXWjO7tSIZfC4juBTkl7gH1ihvOgYkQN558hAz3PX2YTHaEH FasOFH7gbEXAcNxPWUMFhW84WUpgaW9fB7LCbOVOq5iGcII1okyNN9ltki92bxwjnMy7Sb5bulMiBwXR M6Q7wWUx9OarYgjIUqNvV0i+foN3SKJzy1VQn+ROf+ ROf+ROf+ROf+ROf+ROf+ROf+ROf+SOx1xxU/BnXpQMmr85KZpcrgzDVImetImrX+4iOQCImQKImSNJJG ZtOG7eNY4z/71OscSwlBEiSDhDao/G7lJCRmgfr2RO1bJCHkGCmRTSgAhRmCzekJaKW5yrRWQxiFsJW2 acIDKvj4yuI8qpTZIdk76vmzV2elMWATLdJA6yJH4z e0KVFIQobXA3OFcxwCdteuYRPANsH5TSr/0Ujk5Y22jeq6310t178QwWplzeEe5bq51nzvd624XLf2pR 8md4ZfX6bei/Hu8ZGu4cXNOIrTxpsFpvvLtKdvp3W+kxk9rUjoeYBq59K0heEKwUJ038L27GQeovWoaD X086sG5sd3FfpXyC6c8HO25r/gJ1Y+xmuXJn6VHDoF qu8Vw8NUJT9e4eS5QvbJAujvRy2ZcP3dgA2pqlWEHMtWBTOUzj1wfO+Y7A8m+4PJ/lJkA2crUuw1pLh+ cbJPnOwTJ/yQnN8vhk+c7BMn+0SuO1c+kk3rV0gjG2C9ePJPM2ot4NzohPZSIH0v7KV9AtHLVeZlC6CV 8IqBaoJqmpVfhqlDcsXaCNZLVhhKLwj8zwtehgh99u HhsCs28xCpcIkhG8u+dWshdjff3ykZVnuSv/u7Lz+6kgYmn8r93u/e/ffe0O4v2v45w4/cL05pzhlcOn mfcfqsj6kxgmhGi//Pu3/12Oi6lnY7YO/60YCVubGCBfNGWSpEp7b8/Oy797/52dq8+RWrT8e17abHH1 aF5/Pf/wwho0h04O+++/Tu0/u3X7//+mWF86628rql Pvzu/sqqVgl7q23x5doa0m6qFz35823fdaf/7fA3j78k1z/u3a9+Hpoom42p+NlvuytWhjtY3/Xhm99+ 9/bp3Ve//Krr6j46+sO7v/HZ+yV8f/nnc2136+2nt4+//pD9c8r9o553a3/f5c7k9s7EH15+fPvwzS/e kdfx25y//pevPnx6//Xbt9+8vbRfvv/Ftx/yu30DT1 F//fu/8Q1SJf/m22+++262vc661nTTd4/e/lue112/vfvym28//ekgb46R/+kfrhhe+bjyU2/vv/qvf+ Kbw7Nwh+yff/n+a7mlyo21f350oI2Lv/9t0Qf8I5a4+wv+vsdliJC1A/8Wzq0GkB/mn377/xuDF5632e 3RX2m45lm27/zX96/yv/59+QYv2WvnDf7x/Xf3XR/r /Or9u6+/++irP3FxVvn//+nf//CXH3/4t7f/9n/efveHP/7x+7/85Yfv//gPb19//6c//PWWl7Rj/Ovf v/35T2/z5zp+vn7m+CNcR0Vb6743yd39Luy3Tx7/+OPP/8qvnUMOluuFf/rsjHp8WO/crl/+z8LqbLrC +Y/UHotlGfnnkz0o/KfJm05o+Z9nvZNHcw62Rhk657 ffOhu93g24/KZwu8xY97rQU85f3630hjZwG670+H6NA823LDymM816YSuv/Acw3kJo/uk6Hn+ayJe/4Y 8MtJ1K5iUWflf49V7++NN//OPbX77/jx8+u/8bPx7OXWsnV/3415/tnOTo8aE9x/ibj29/+NN//PCX// Rqjc6hdnzm01umKyob81/cfbN/+vjd27/9z9dv/8Of //KL403vlb+3sh8wUo/06ef/9On34K/6dKK6r2+ju7OfgsJGOKlo5FF6fX1/1Ktsz22yq8Hj/qrNfvOz jz/79Pb9//7hr/+52ZyHOn/52ljeiyxRYWt0fVj9/p+/jZUtbc6gwpIBr8//8bMnPD/jX33/P3///V// 3I4ofwSJtie+/vAT+Fjp45///HBTv1v58i50MVawX0 /+/TrmsJ6UT/phuP6OI/z+f/zpD79//MIy6g431t10e+8+/Prbb95/+slfrDQi+Rd//G4N8gk6P/72q2 F9//JRVgm//fWv33/c2xel9Yhpl+///CC1UQmhudeb96n/6093x6c///rvV7hm8xx0x0c111/+Qcbb+6 8/eUG94TAk+Bg90kTO1j6+8xaw797ZICm133JP0/72 f6kw41KyeVx3UgRa/fno7ZobWnKtKVI3xpHdwOxiqwGzQppIGKjlINFcPgv5YQ1KwJWxSLMjA1O4EPRh ro3oRELcCNXqjWPoXrKtITXVCC3MzHXkKF8KPJx0DTOzKEHhPzJsFDBtncW6QTJqHAGeXVIiE7ImirKc dCAyIDAgUj4+UF8cz5RfGbGoBGQwAjy7CO5KdZRcNX 6CkHYlxY2xvnIcY053emXeCHXqNohyu0NoVOggLDJFPU6LYUR8HKD0PIWjZo3+KF3uj2IeLlLpVJDdWb p5RU0FeUXce2FqND7IE3WlUMRcFPRMMZY6j1YyVLHhildhdcftH2DnPSU6pU7aUBS7XHMoBIgxOSTvDE qyCCC1OBVbXOdlEMAgTPObXOBeBKGfQAn2mVUlJF4J B9WaEHSfIRYRLQEnwtFtRv7wBZOYGbEXXlnkE2AGITQdZgx6YEVtOZgvJ6K6XhwxZ7OoTQ3TY4RiKUVo AACICEGbqrEaOY4VrsDqhH5sESoWILDLBSsVVFvqOiD6a47bjxXZSLKsMIIpXWduRSXdWBVaBIDuHLAx EYHcJCMhRCFpLV8FC2HmRGFzZCVDXYV6v0PbMJGjjk pdougnWt0ljxXiKol+TbxpXLLtd5DmQOphF5U9nRDsE6NxL4XkCW2MaVVuALxiZVLoGBEyVRGbH209ns QgMT4+JR7mg6BpGxnyEOJCJJBrFZTjCDXgILI6OfQnBOSbRASsDJIxHrB7BbRgTfLOGVDvNSE2PVAzWZ SaZTNiQWTbGBsqPLNhCWT5HluhOOGzYIIbHL8oFbBy QCCrNkSfAWVdYBMdWSHoqbGYBPHxJAMnJLPkOQX6CVMaXHUfGRmiSFGrWGHrAWM9KCZjOKNaIL4aOvPg BSNxLJNhOqouVNMwLTQevfBVGSGcUJGyWJH6TqVrYCEiCJNzZVrwKOCiJKWmYgt3MWJcUHTuAQ9xOoXt WKNiFUD3QNxgXRKcBXUjfdAMBJOnDMWgMVMwFlUvGU SwRHHgLXvhYLWqECFhRkGrPFDwSGAxHU5rIrQePKJuXBB1OEPcKDNgLTPzkkKPEFAfIWUjYPz8RVTuES MaAMMpPCnvDWQmLYExDRK2AIEfTXJzMQ6eLmJjMGDdOHIqLZRyGIFhUFZslhAKXXZlZMYpGJR4VVUqEG MxSFPhGBweOJUgSJQkLnv1BJTrIPEvEK3dGcQlBHJn JMF9EEIuWXWkDOOymyBNQSDpSNB1YYP1VTByAVXjEETqEQidRVLdQFMbTbB1PHUfPVGgRM8qAsQxGZOd PKK8CjKcBNWeCUUlwhUYIUReXZXaNSJ3ExMwLDOeFJWlDTyqOPAcBIQtRXJrQYS0OQR9UFNwIlPfHGxv CMWRPWmAY7EktvPhJhQVY6puWq1uWpJnXYWUD9Zfq3 QgNSAwIFIKCj4+GrF7MYZ8tIOjXxh2UPE7THfqDKGKIp== ID Date Data Source [id number] 01/13/2020 08:13:27 AM EDT [facility] Name Value Range Interpretation Code Description Data Corrie rce(s) Supporting Document(s) [facility] TSLKMc5gXrYTZdLtb9RhAvRvLYRmPW3peid0E4I1kNIkO9EpvZEum7acY7FgX9BjLQZcOHMVCG0ZiFIs jb2 [file] rF+pH8XPy69dYvqZb78/JeRNOWUkB2vXc3csnsix57enyI/p4CmZ/o9ByeBJ3/Anca/j+xtHgqTOOCX/j o+do8jc++v5of+Pq8WJfS5HHRf2aNenPtp/84QKbe1 gZDg684m07x8mPT3a8+jPgdGg9a2/bAS3cqYdUzpGDPSDnw3Re+5I1Ht3L6HroQ9SN30E2YqgHZ2l3vW 80+ORrFm3dyn77t2ZDy6F669NV58yw32xjl8ekN5O07hAblaFH6CB6+CusX+wOs91nz7iA8httLW8NV8 mc4Vx20ajrDza2c5FbsX28vFdCH79mrK/ucBdb8vXH p2o4m55HCS1x9q4armwh8rBSswJ6rtVL6LmrwK/+jZ82vwmzR23ZzB1PE2fpMJzLvuqxpV10g4il/SPr d7/M+kR67B+wtff93z1Kh77bDDtY8ja2+ysB37dL605T87+B8Q4CGEQik28AXFDx3Ib1Eat8ezzMax3C aTy8e0zdb8o0eif/ZLKQvvD+Qo82pwCF/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 ec2B/W43yTUbF3eg8H39Ut7Q/agL6xP/b1ZnfZA9fs/rebkXk8AWvY1M5Ve+8b+5BrqTMCmell1JoBsw KjF8mLX71Iwv35CStbxfiCDaem0AJEM89wech+bjzM8M3ZKo9cZtSO7G+Ac0h9zG07xdcfr7yYC8z1wU rNJ184b2+oxBPBChxZ8UvA1HRTPjFV0gc/In2i/Qvt X3h/4/2kW3lfaLS2Qw8k/fINc/hnh3/G+pU5fl/V19v5V2K6zII/0PzGC+gwsu0URoO+94/OEdunf/pG OvzzhH+eDenoz/Ou59i8+4606d1w/JSoGIq97uxm/1EeMAakM1RjVq9lpn/NifT7/YZh/crmXc+xCX2x fmUL/mrd/P8mMdmqJpq+Bupjswk3m12AgnL5mDU8IT d9w2J/1FQZXgbou7B0j32O17/8a1i/MhZsS2596jhbL9G31cEM/wCkv9VvO8ol/Xlj/A7Y327beVp+FW N/33jQNvTdjnTH+/ACm6ZcdcYQ0qyQ4a/d241/tp8ersw3dTp8c/eOzT271Wdl4/Z6BR8hAIS3iwBE+l 2b7Iu1yKaE9Kh+8B0y7aL6c6xwbI22onx+mWvJwf3m C8ojnuyDwsmimv837NCC7sbmgFoXkGSmX8Wq0f+/zc3y4D70CQUu/0KYLsH8x5l9AC9x+RsfRexzjsBO m6OUw0s7W3U2K6j97urd+Yjyv/THGgefF59/5cdvJCc+RoHILqv679McPKv8+6PPs+JxTtp7HB4H784d J14l2K9/8Dm/SSG69FLOb3clq6/ustoBQXxS9gWr73 n0y68c/BeJu8lm24EHmdOj+isf1z/57BjaKNrrO3BT8uvACgj5/dnHPb/g+L3PidMdhR0JSdZ+98t8XP 4uHmQ99soCa91VbYJ60onIIs+98bOEggz02FQiiZEsrG2b/+hoLQrbS2Mta4Bxil476P2JVeVV/L4GfQ 254zwnw171HjlJdRaT06/lJH8d4j/113bvA9daJ6zt [file] /8hJmWrYqKdI600GCf8Rkg9DVyGFvub3TG1/P0W 9lVeX/ZGC/sq+fxd4qgJoWJsVYGOnXsA9W69+MeJsxOKLn2m7767ztFckWamw3/AUn96tAUVriYenL2K Sc84p15pD8TS9Ry8C1uA5nQh2NW0G+LvEV4JjMbBoU98kDb+Qd+g71S47M92t50AD0Ki1P/uVDy061Yl O1bpZ/mD+0qQonzfPIrBVcGLaUIYX7l7z18Ad7Lq3N ivJsarifFqTugdeoxXE+PVLP+gVt8qBb3l0jhIfgZi+fbmNR/bHP+jnL+KdEc+JEq8i3P+Tr3Jlfue+7 i3wG2KR6bRMvxJ/Pfz3Kp6HoGLjFt1nP2pyq1d3Cv4qO6S5/qY63mvuVtG9+v/HvbVSUM/oB/QT+gn9I 66Wv6p9Te/2LE6t8+mXWtVOf0ykfxc8RgA26Am2Pzb O/QGfdnP/Wo6qM0S+hu2nX0yvA7MfzPkXd1x29Z+KgyrXscevu4yo3HMnpJbdA/Qd+gNeoO+7KsO+6rD qjytlUnfJoaBauUrKbuxe47waK367LmRab7+01Lqi8O32XIFN4ktjSsdMO7XpDPe2do/7ozoAVmdIK2V eXP+ipo1We07ct0hehDb8N/9cjlR7zmxge6iq28tEX a761uAI+hrPbTH/CKTygkxLlRD8p4a62kZU3sTXEy2+Df73b7R9g1l7v1FFlbfgmHL+OlVrQv5sK01Fm dePru0fd/yrA0iNavU42Y+lDev70yFx28Q5E5iRgo4Jl57UarUm9m3l/mrqE8r/7cb+q/h+0rZA9ZM6B u1h5i/dxWFneYi6At9G/qaj+1W88/hjt44m5Qgi5+8 i10I589GT3T1lr/3YxFBuUFw7sCyLB/62vXb9KvfG/YcT5XHKx33BIj97WmNT/ysh04jU+Ud6L+Yv+ox buD5IPh/v4+DvBx3j/Stj3xu+2fGPMa03U2W44r4PpJRcwu/NDP/9c4y4r2d++i2Qf94cy4wqJhn8K+F z7SEzDlRz+wzILnWs4+ApE+6B4XvJ2Y91r0/aJ//eO 4nd4fNYf1jYSZ8X5/nrWf64gy83Sofa//SGnM9i2Www/sub+TvNb/NqqPxc0T/jp6jgX8caW24J9kdE6 WsD+7zHuebevkL+7RH0+7f3gDauN53w47We0Ox7/nCr290AxU7XH570Hv2Gn+cz5G36Je0Dw3JM7Nw6L /oJ/QOvUO/oF+Pfh/qqPSuB9/gGp7Bkw8fU+gb9A36 Qv3O1nN90Lj4U/oJ/YTeoXfo6/sdZobnAuK1VkXAHg9JV/K2dJoPnz3c+aH3m80Rs014tBfyjVEZkcT/ oZ/QO/QO/cZ3ll7sRh8q2KY7UQQxcwq/slSV6xvyINr8QnvhRgBlo6E9/ily8F3ziA7G5u6K35jdL/qy mwm8yyL+ZykN1kqwiNu+gOTGkvjSi0FtWu8mmbB0An fX/KRh/5Vh/5Vh/5Vh/5Vh/1V7umcYl9KH79vvnsDEC0Pw/iS4dZlnmK3cL+fK4hGj02YOP/Qd+rI3rO F6xqttzv/v0F52bF6LSxJsEgmhfYwiK4iu8d/Ali0Bzw0Rj5Dq/tDHXqb8koHlmcU3ssNaprmrxoVQ7w LQvdHVaC0f0kClpqMWfH3rHWG8dQgbax3oO+gVeoW+ QV/r+zY69Pi+A+ZfAL5PwHoKY/U5Z89avTqfFJ7VmZZ+Kq6ZZU/xNXdFVt8qq6W6X0c20W9m8Ifhhu75 y/+8Ee6uXKWhdE/IZ0Bf+9Rw1ioSynwXbtsr1y5pIuspCmr768T+avsmFvNXmRboBdfXerfF/DP232d+ x7dixzuue1ed91oA4rP7ir+hfi1wOA32Vi/iL1Kx8O +L+wtTjqebpac2yw5WM1x9dXa7yxOqYWlzy/0qtmq/rt9865L/0erQG/QGffkLtmr+2IrYk5Kn8Y05/r 0wR253ni7jU8770AK62Dqzxsa2nUz2TqfAdb97a9GuJk3O/ox4xV9ofdr0+BuhGk5tPCC/x1Xr+yPmr3 MqGdK5ZCcn0qsNT3f+uiIfkWe/3JDtL+m7Go095rLN j+tv/2juNjNk+0kU9Ysdv3KbAPN2wuNoC+m/HRLYyfw7597kkTl0z1v1W/kkhDw8XsAixl1n1BR0tZ/1 utEyTzpZ2vF0cjHyqoyjRfD9+7u45oiQy91fBh398ex53NV5yo6yZQkrLdsrL/2MG0Or/w6t/Vat2Jtm G3AWr6D+x1VNaqqc+2rZzyPWB/T8lg3ivgYz+3m08h dGK/9oNIFeoFfoFfoGfYO+Q9+hN+gN+hC7dL2HU4W29X21CU48E5Rbl44pgdrNbhk3Fp9Ww8G08Mh8Sy mHiATl8DW/9fMYJjr43NY7t79Wv5Ghm1EqnGUtqEEslEUkuBSNrO2Rf/VqOyjEmH9q8xaGYrp/aBjGK8 S8IAovAAF6zMpPWyY0McJB+uDA+uDA+uDA+uCI+aso yyj/aAyUF/NXA/NXA/NXA/xFfPaVXY90+h+UDoMXnRTqY80zjp/93oKMPwrp4afX6s/GqP/vmOUfjXlB X/OTY9Z+wjHLPxpToa/9SGPW/pwxO/QdeoPeoB/QD+Q/1xiXhfW4Ku2Z+tp/Jimmy+JAMES+JAMES+JAMES+OFyh [file] v/u514eP833+/q0Il39067e4363+4yxvY5e59nzvxcl+w6/kjjcr49lvd9+++/jV1+/fPrz/+DYm5135 69duAMh7Dg3sE5s5c4rQeSU5uJ++/u7bt4/ 549+MCf553V7xyv+H72i/xnu36Et/fPnz3q/dvr2e/fnMcZ20zXvm4df+xrr2Pat+++Pj2i9+9NB++em ne/+d/+j+//S9qz3kUg/7mVZLXhV/8008v2+G57sv+yy/ff/32xTe//s27D++/rHdfR7644O1Q9jj/+H bZZ//Xu68/uw+Iv7L9/NK3X3/4H09d4yRZ/v4/yPE2 Ge4cv/7m7duv/unrr/6gCjDxa9l23ocpxe5n0//I4mzXhwp03y/92x/+8uMP//r2X//X22//8Mc/fv+X v/zw/R///u3L7//0hx/++PYv/0n8X/7u7c9/els/V//5/s7+ubTPVd/e/fpvvsk+qQUptm6356//yscu g0FuquN//wN4g6evDwyfh/0u9MzYD2L9d/UPE+gmba c96hvdiifMqP7R9EBf9w00JFCsRX/5djwWa93/hy5SkXEz3JZBg/zlEFP9lO0+7saio92J/PbVLz68++ VXv/9hsS1Pf0dCf7NmeyAftq7g4/n1asG/+D2e2kSjUaRG4zDHaMW/+8Of/c0l1k5c/b//8En2r3/oW0 TUuS/68a8/zf1gr/f/ae4H/M2Htz/86d9/+Mv/+Ju3 j+xPfX6a/O91BaqFS6O/2D9/+PbtX//7693/8Oc//TT7HY/aW8kOKl/2zx9//i9xn21wwX9ujKGVk3/7 kE9y3y+2q2WiV7x40NHdfMysw4CckOIqfzWYcjAYd15+vn3/P3/46342sphm41Nt64/i6N8b3LX0Rl/9 X3/5l7/7ydXnO/zjDz9+/8vChcZ8NV/i+//+++//+o fv//UAKU1fL//WX1Vwtd32+c8/vm0eilYg7upbs6//3Iwd+aK7y6Mcks/+8Pv/509/+P3r+Z/kbbx79E JN7hGX/oXzQ73iSi//9v1X//d3H95/+2yY4GgIDzV2v/71+68/fvs5u/n9O/z/v+Z8plCe7kD0b+//2w 1j4ldbo4c5bV9erlkvCPc0a/8aEV7/1cdzbwu4/r29 huae0cz47bBK7y07/bPL7astC3r+0UgxlADt340iP5p9uJofGJ+5/51HeYloNkSmBCU0kqWleQidusLv LhyEDLstAVOuZdw0VI6NePZlOHStJ0H3GSVnzc1oYLCkJEWxpGZfWjRfYGJZLO6MqWZoMG2XOKe3FSGt BYMiIjRgXWIxenG4PBOvFPOgSBFfN9ZwqaGynHKuQQ AgUj4+OK9ng4JgPhOkARDfOja8DX4IyZEoQI3BlOWfyK4ygaHmP817ztTgPQAwNewdv8QoUXelDARPJW 1BAKV8KEG7FDIxJi0+DQ6um7KiPuSvPSQuPky4HG2SdIYrk7WkEV2EN0CoPRBvQEFVOSK0k5OiXDZcjn fklmauW2CgEPH8yM2eNTF8CICySSjzOVTgJUlmUVD2 IXAcNFcoCQLbAHFpEXWwURTsARs5nXNxJU6WX8IhKNEjXAWAMTGyfmFvHg7pCAVAAjHMMobnA8WQQXJc Ohj1HZDhEPpcC8L2AzwgH4HsYC1QU4MlYKOiYNAWQIBkvsHrME2QpcNipC6bRBbIHOQTINaQCJdrEvX2 l89idcKJROVsNTBuDUpcWHDbURAxLTSeBUQmWVTfQU JcXCNqIN4XK1IjMXXxNMGIEIJ6e2QqKHIwtywhouftJv0pcgUuGhu+YejuTRXcs3OiWHzmA0L1yEXsU4 QwF5GlMU7PzNEyRRxzVNObUWOiPPBuZ403xcLqBI3+RG9cu4DnZwjhHMCCUYEaIKLrIJRgLCO5VnGcGJ WfDREyNRTrKiC8NwOcLpJSCJHgGEI2FkK2XzBzKGZc WPEdEWpzGAKsQGS3AKYoDHYcKKIeND2cKkExHFHaIuA1YIWiFESnWSFrcjNFGHSkIJRjQADqZIM5NTEw YOZnPOtkDEQiNRIhEKY8UZYhYQVxCE2qPqWsYDOjBZSzKlkdLPXhOWJhiuBALGZnTDHqQRT7JqVkAJDv TZFpVJdpEBKnZHIyJnk0DVKmJCKvPV5iAuXyBHVzEJ R9BJopDHNbEXKfvgNHBXFcWZXlDITsTqNkDMLhFBMoLMwaPLRaIXJxNbNcEDDsYIBsJM9pHkOjJGLeGK V3PVSlJJMhZNSredAMTMJoPDXuQIu0FONcDJAbHROjMOjpTEWaXCTlNBJ1CQOyDSOhXS6yUaCrBNXjQY KySTVkUXDvSEAbbtUVIPFfJWLnMTU0QZOwGSXkHYGe GXxgBPIfIXQiCbb1VZGgVAXtMG0nXoRwJPTtQWH2TFAbXTAcGPBbeyRPARMuQRX8BxzjAcMsGLFeMBOk ETrtZCOdMSHnGtI9HNWxFCXnPS9iKhSzIMEmKPF3FhTaPDIaAQXlhjQPZGFzIAZqXDG7ElUkOGAjOZKr CAvkCKHqHOJfXGBkEOZ2GKK7VVCzHcNwYQvhLOOVTP iHV9KhrrLpOjKAM4lmOb7oCuDnUMSSQ5Zvs9RcLFDvYYFNOg6+FtZ9CKE5lXIhQmt2AjDwIqccTCGUBk == ID Date Data Source [id number] 01/12/2020 05:51:13 AM EDT [facility] Name Value Range Interpretation Code Description Data Corrie e(s) Supporting Document(s) Bicarbonate [Moles/volume] in Serum 19 mmol/L 22-29 L [facility] Chloride [Moles/volume] in Serum or Plasma 111 mmol/L 98-107 H [facility] Creatinine [Mass/volume] in Serum or Plasma 0.66 mg/dL 0.50-0.90 [facility] Glucose [Mass/volume] in Serum or Plasma 94 mg/dL 70-140 [facility] Potassium [Moles/volume] in Serum or Plasma 3.7 mmol/L 3.4-5.1 [facility] Sodium [Moles/volume] in Serum or Plasma 137 mmol/L 136-145 [facility] Urea nitrogen [Mass/volume] in Serum or Plasma 9 mg/dL 6-20 [facility] QA FLAGS AND/OR RANGES MODIFIED BY DEMOG RAPHIC UPDATE ON 01/11 AT 1515 Anion gap 3 in Serum or Plasma 8 mmol/L 8-15 [facility] Osmolality of Serum or Plasma by calculation 282 mosm/kg 275-300 [facility] Creatinine/Urea nitrogen [Mass Ratio] in Serum or Plasma 13 [facility] Calcium [Mass/volume] in Serum or Plasma 7.7 mg/dL 8.6-10.0 L [facility] QA FLAGS AND/OR RANGES MODIFIED BY [employer] UPDATE ON 01/11 AT 1515 Glomerular filtration rate/1.73 sq M pre dicted among non-blacks [Volume Rate/Area] in Serum or Plasma by Creatinine-based formula (MDRD) >6 0 [facility] Glomerular filtration rate/1.73 sq M pre dicted among blacks [Volume Rate/Area] in Serum or Plasma by Creatinine-based formula (MDRD) >60 [facility] ID Date Data Source [id number] 01/11/2020 04:24:53 PM EDT [facility] Name Value Range Interpretation Code Description Data Corrie rce(s) Supporting Document(s) Bicarbonate [Moles/volume] in Serum 20 mmol/L 22-29 L [facility] Chloride [Moles/volume] in Serum or Plasma 105 mmol/L 98-107 [facility] Creatinine [Mass/volume] in Serum or Plasma 0.66 mg/dL 0.50-0.90 [facility] Glucose [Mass/volume] in Serum or Plasma 89 mg/dL 70-140 [facility] Potassium [Moles/volume] in Serum or Plasma 3.9 mmol/L 3.4-5.1 [facility] Hemolyzed Sodium [Moles/volume] in Serum or Plasma 136 mmol/L 136-145 [facility] Urea nitrogen [Mass/volume] in Serum or Plasma 8 mg/dL 6-20 [facility] QA FLAGS AND/OR RANGES MODIFIED BY [employer] UPDATE ON 01/11 AT 1515 Anion gap 3 in Serum or Plasma 11 mmol/L 8-15 [facility] Osmolality of Serum or Plasma by calculation 280 mosm/kg 275-300 [facility] Creatinine/Urea nitrogen [Mass Ratio] in Serum or Plasma 12 [facility] Calcium [Mass/volume] in Serum or Plasma 8.4 mg/dL 8.6-10.0 [facility] QA FLAGS AND/OR RANGES MODIFIED BY [employer] RAPHIC UPDATE ON 01/11 AT 1515 Glomerular filtration rate/1.73 sq M pre dicted among non-blacks [Volume Rate/Area] in Serum or Plasma by Creatinine-based formula (MDRD) >6 0 [facility] Glomerular filtration rate/1.73 sq M pre dicted among blacks [Volume Rate/Area] in Serum or Plasma by Creatinine-based formula (MDRD) >60 [facility] ID Date Data Source [id number] 01/11/2020 09:25:31 AM [facility] Name Value Range Interpretation Code Description Data Corrie rce(s) Supporting Document(s) Sodium [Moles/volume] in Blood 138 mmol/L 136-145 [facility] Potassium [Moles/volume] in Blood 3.8 mmol/L 3.4-5.1 [facility] Chloride [Moles/volume] in Blood 108 mmol/L 98-107 H [facility] Carbon dioxide, total [Moles/volume] in Blood 22 mmol/L 22-29 [facility] Calcium.ionized [Moles/volume] in Blood 1.16 mmol/L 1.13-1.32 [facility] Glucose [Mass/volume] in Blood 115 mg/dL 70-140 [facility] Urea nitrogen [Mass/volume] in Blood 8 mg/dL 6-20 [facility] QA FLAGS AND/OR RANGES MODIFIED BY [facility] RAPHIC UPDATE ON 01/11 AT 1515 Creatinine [Mass/volume] in Blood 0.5 mg/dL 0.50-0.90 [facility] Hematocrit [Volume Fraction] of Blood 35 % 36-45 L [facility] Hemoglobin [Mass/volume] in Blood by calculation 11.9 g/dL 11.5-15.5 [facility] ID Date Data Source [id number] 01/11/2020 10:26:42 AM [facility] Name Value Range Interpretation Code Description Data Corrie rce(s) Supporting Document(s) Bicarbonate [Moles/volume] in Serum 22 mmol/L 22-29 [facility] Chloride [Moles/volume] in Serum or Plasma 104 mmol/L 98-107 [facility] Creatinine [Mass/volume] in Serum or Plasma 0.66 mg/dL 0.50-0.90 [facility] Glucose [Mass/volume] in Serum or Plasma 115 mg/dL 70-140 [facility] Potassium [Moles/volume] in Serum or Plasma 4.0 mmol/L 3.4-5.1 [facility] Hemolyzed Sodium [Moles/volume] in Serum or Plasma 133 mmol/L 136-145 L [facility] Urea nitrogen [Mass/volume] in Serum or Plasma 9 mg/dL 6-20 [facility] QA FLAGS AND/OR RANGES MODIFIED BY FLORENTIN MATHEWS UPDATE ON 01/11 AT 1515 Anion gap 3 in Serum or Plasma 7 mmol/L 8-15 L [facility] Osmolality of Serum or Plasma by calculation 276 mosm/kg 275-300 [facility] Creatinine/Urea nitrogen [Mass Ratio] in Serum or Plasma 14 [facility] Calcium [Mass/volume] in Serum or Plasma 8.2 mg/dL 8.6-10.0 L [facility] QA FLAGS AND/OR RANGES MODIFIED BY [employer] RAPHLUCIA UPDATE ON 01/11 AT 1515 Glomerular filtration rate/1.73 sq M pre dicted among non-blacks [Volume Rate/Area] in Serum or Plasma by Creatinine-based formula (MDRD) >6 0 [facility] Glomerular filtration rate/1.73 sq M pre dicted among blacks [Volume Rate/Area] in Serum or Plasma by Creatinine-based formula (MDRD) >60 [facility] ID Date Data Source [id number] 01/06/2020 09:55:00 AM EDT [facility] Name Value Range Interpretation Code Description Data Corrie rce(s) Supporting Document(s) Albumin [Mass/volume] in Serum or Plasma by Bromocresol green (BCG) dye binding method 4.6 g/dL 3.5-5.2 [facility] Bil[facility].total [Mass/volume] in Serum or Plasma 0.4 mg/dL <1.2 [facility] Calcium [Mass/volume] in Serum or Plasma 8.8 mg/dL 8.6-10.0 [facility] Chloride [Moles/volume] in Serum or Plasma 102 mmol/L 98-107 [facility] Creatinine [Mass/volume] in Serum or Plasma 0.74 mg/dL 0.50-0.90 [facility] Glucose [Mass/volume] in Serum or Plasma 77 mg/dL 70-140 [facility] Alkaline phosphatase [Enzymatic activity/volume] in Serum or Plasma 57 U/L 35-104 [facility] Potassium [Moles/volume] in Serum or Plasma 3.9 mmol/L 3.4-5.1 [facility] Protein [Mass/volume] in Serum or Plasma 7.2 g/dL 6.4-8.3 [facility] Sodium [Moles/volume] in Serum or Plasma 137 mmol/L 136-145 [facility] Aspartate aminotransferase [Enzymatic activity/volume] in Serum or Plasma 16 U/L <32 [facility] Urea nitrogen [Mass/volume] in Serum or Plasma 9 mg/dL 6-20 [facility] Osmolality of Serum or Plasma by calculation 281 mosm/kg 275-300 [facility] Creatinine/Urea nitrogen [Mass Ratio] in Serum or Plasma 12 [facility] Bicarbonate [Moles/volume] in Serum 26 mmol/L 22-29 [facility] Alanine aminotransferase [Enzymatic activity/volume] in Seru m or Plasma 7 U/L <33 [facility] Anion gap 3 in Serum or Plasma 9 mmol/L 8-15 [facility] Glomerular filtration rate/1.73 sq M pre dicted among non-blacks [Volume Rate/Area] in Serum or Plasma by Creatinine-based formula (MDRD) >6 0 [facility] Glomerular filtration rate/1.73 sq M pre dicted among blacks [Volume Rate/Area] in Serum or Plasma by Creatinine-based formula (MDRD) >60 [facility] ID Date Data Source [id number] 01/06/2020 10:10:43 AM [facility] Name Value Range Interpretation Code Description Data Corrie rce(s) Supporting Document(s) Lactate dehydrogenase [Enzymatic activit y/volume] in Serum or Plasma by Lactate to pyruvate reaction 146 U/L 122-214 [facility] ID Date Data Source [id number] 01/06/2020 11:41:03 AM [facility] Name Value Range Interpretation Code Description Data Corrie rce(s) Supporting Document(s) Leukocytes [#/volume] in Blood by Automated count 6.1 10*3/uL 4-10 [facility] Erythrocytes [#/volume] in Blood by Automated count 4.89 10*6/uL 4.1- 5.3 [facility] Hemoglobin [Mass/volume] in Blood 13.4 g/dL 11.5-15.5 [facility] Hematocrit [Volume Fraction] of Blood by Automated count 41.2 % 3 6-45 [facility] Erythrocyte mean corpuscular volume [Entitic volume] by Auto mated count 84.3 fL 80-96 [facility] Erythrocyte mean corpuscular hemoglobin [Entitic mass] by Automated count 27.5 pg 27-33 [facility] Erythrocyte mean corpuscular hemoglobin concentration [Mass/volume] by Automated count 32.6 g/dL 32.0-36.0 [facility] distribution width [Ratio] by Automated count 14.2 % 11.5-14.5 [facility] Platelets [#/volume] in Blood by Automated count 188 10*3/uL 150-400 [facility] Confirmed Differential cell count method - Blood [facility] Neutrophils/100 leukocytes in Blood by Automated count 66 % [facility] Lymphocytes/100 leukocytes in Blood by Automated count 30 % [facility] Monocytes/100 leukocytes in Blood by Automated count 3 % [facility] Basophils/100 leukocytes in Blood by Automated count 1 % [facility] Neutrophils [#/volume] in Blood by Automated count 4.06 10*3/uL 1.8-7 .0 [facility] Lymphocytes [#/volume] in Blood by Automated count 1.81 10*3/uL 1.2-4 .0 [facility] Monocytes [#/volume] in Blood by Automated count 0.20 10*3/uL 0-0.8 [facility] Basophils [#/volume] in Blood by Automated count 0.03 10*3/uL 0-0.2 [facility] ID Date Data Source [id number] 11/29/2019 02:42:20 AM EDT [facility] Name Value Range Interpretation Code Description Data Corrie rce(s) Supporting Document(s) Progress Note [facility] FTGUIp2nJcJBNuWn39/XELscSPKfk1CbKKyeQCn1IOgtBJPkK7RjIWO9kD5mZDE2IXlNPbDoCdFoGWV5 lbm [file] EkFApfHZXuGIi1Blz4LGp1AZBkCRS1IG6zEGMALw0+UDprkWCvbPrfXQEKFdlzYaNIAoSnXN2QLGq= ID Date Data Source [id number] 12/05/2019 01:05:00 AM EDT [facility] Name Value Range Interpretation Code Description Data Corrie rce(s) Supporting Document(s) Levetiracetam, S 20.6 ug/mL 10.0-40.0 [facility] This test was developed and its performa nce characteristicsdetermined by [facility]. It has not been cleared or approvedby the Food and Drug Administration. ID Date Data Source [id number] 11/06/2019 12:13:11 AM EDT [facility] Name Value Range Interpretation Code Description Data Corrie rce(s) Supporting Document(s) Progress Note [facility] IDHDSo3iHqWGCqMx20/YMSbiNLEyt2QwUSrkEJo6USqxIGLlI4FcBBW9gO3nXCB6KLlMBwVgRlUmWjNe lbm [file] /NZJklZNFSjW0B8fkVma7pe+zLXp/ASSISTANT ELEMENTARY TEACHER/g8Amq1CtTcNaEwdzRknqDlxZ45xyLYxqExocAhWVzvc+rZl [file] aSrMmoSnzagKZEhARXsn9xDQ0XvZNOaVMxPqIsjl+zAiJt1HKMzFtcd2rbAFb29dN/3/Blow Molder+xcs+M4h5m [file] EtY0TGY8VLcdIOELAw9Y ID Date Data Source [id number] 11/05/2019 01:06:00 PM EDT [facility] ([facility] ) Name Value Range Interpretation Code Description Data Corrie rce(s) Supporting Document(s) Free T4 2.21 ng/dL 0.76-1.46 [facility] ([facility] ) Thyroid Stimulating Hormone Laboratory test result 0.358-3.740 [facility] ([facility]) ID Date Data Source [id number] 09/01/2019 08:30:00 AM EDT [facility] ([facility] ) Name Value Range Interpretation Code Description Data Corrie rce(s) Supporting Document(s) Thyroglobulin Ab [Units/volume] in Serum or Plasma Laboratory test re sult [facility] ([facility] ) ID Date Data Source [id number] 09/01/2019 08:30:00 AM EDT [facility] ([facility] ) Name Value Range Interpretation Code Description Data Corrie rce(s) Supporting Document(s) Thyroid Stimulating Hormone 5.420 uIU/ML 0.358-3.740 [facility] ([facility]) Free T4 0.82 ng/dL 0.76-1.46 [facility] ([facility]) ID Date Data Source [id number] 09/01/2019 08:30:00 AM EDT [facility] ([facility]) Name Value Range Interpretation Code Description Data Corrie rce(s) Supporting Document(s) Thyroperoxidase Ab [Units/volume] in Serum or Plasma 28.6 U/ML [facility] ([facility]) ID Date Data Source [id number] 08/08/2019 07:00:00 PM EDT [facility] Name Value Range Interpretation Code Description Data Corrie rce(s) Supporting Document(s) Progress Note [facility] QZHSVk3mUlFRKdTt63/VMEskEIPks5IzEZthIPq6YJxkBXBzG8YqIHI5kT7lNCN5CPgHAlYkPbVdXJSj [facility] [file] DEL4MZQAxlqLwBisTwralAFTfVDGba5lRV8ViLCJuEZrKvFsyi+rKdYq6AHUsNzin1ctKPf07xY/3/Blow Molder [file] SP/MAP/T+computing consultant+5//WdAlBDN2P16gOgnCeWSc/iPqTWe [file] QUALITY COORDINATOR+Qk4SWWVzNBy4O2D6DZCsCYr7O5ECG2REMHLkWYbdRLrvYAOkFJw3F8G0WQOjP3XQT3Nbuiumze9+ TT7EP73FHWIzYEg5F5C7mYDvA0Z3tMoOsES2YH9UZH5DhAw6jRVapP2+ZU5OS7WOPrCvRBb8S3I6tXKp R8G9mGuCfOC9PI0CYQ4WeLTiTCVjlrYpDv5bP5YIAJ jLJsHUNTH5DH5RwNNuCI9IiWYEZ6IgpTHaXm6wYHbyaETblN4jZi5zIVscBF2QTmGZXPuECHV7AI1LkV YhXE8RiGIEO8XuzUVfFh7yIRixoTMiri8+EK7BHMExYh8ZOx8+WXwwofHpIopZYaO8XRKem8NhSZq7OB 5IMV7chTabNSN5Jm7WzIC4mIWmG7rXMJ7IoNEdY96h rPYrKFZjJp6RPfX5nrNzvA3OLZ62eZXsk1Q0ZPYmD1duLJdqq92lCNpgOWpONF4hHNFHHXojGWpfOPO6 BiEtaeloHUFpFn5WNnNxBNw7gE7agAE0WIC6OkhfoACvGEjjUcRuRkOoJaA0gCuwlmn1JRqqDS5vDMsz czptZXRhLyc+AEetXGXyCTMxArsBUZZugR1qcoI4nd NgQNmlnZEuLz8as5x4NsjlYn8oJq1lJIa2BnHhSuOcHYSxTe4vhN21ONpdaiItMn8FTxWsWDT4B9RyZn pSREY+LCkuLQzsuOy4iQJoHNLbMl6CJSMuMLYgFJGcUIEuNVItFULmUTBlJTVnZEBhGPOeQRCmGTKkZC AgICAgICAgICAgICAgICAgICAgICAgICAgICAgICAg RZGuECZvQQFiOMDxZKGzUJLrSFDqNLPhPXHbEQSpAL4PCIQnMXSePSUvMTRsVWUlICUuRWAdJWXsVVSl ICAgICAgICAgICAgICAgICAgICAgICAgICAgICAgICAgICAgICAgICAgICAgICAgICAgICAgICAgICAg WFDnCMEcUBGgMOAuMR9IMBLwENRbBWLoBSYaNMFaMP AgICAgICAgICAgICAgICAgICAgICAgICAgICAgICAgICAgICAgICAgICAgICAgICAgICAgICAgICAgIC WoWTAnGKQkAHPbZCNsBVPgXWMwGNUcYD6IZKAbAWTxHVObSGMsNOQqUJKbAUHaVEHhPKPpWICfJHUaEL AgICAgICAgICAgICAgICAgICAgICAgICAgICAgICAg XQSgIMZxMPZbJRAnWJJeKXPpSXZlYTRyGWNlLNHnBEAqCD7LYBWtJFCrIWLvESTfTLPqOYZuOZLfSSCf ICAgICAgICAgICAgICAgICAgICAgICAgICAgICAgICAgICAgICAgICAgICAgICAgICAgICAgICAgICAg OLBhQZCvSYSrIHEqTZLcYS7FDUZnSIPoNKXxGWLlRW AgICAgICAgICAgICAgICAgICAgICAgICAgICAgICAgICAgICAgICAgICAgICAgICAgICAgICAgICAgIC IiWCAtXVJqLOGdVUPmCECcSUPzSVYjFVSiHW9IJTCkDATtKHYoYCYpROFhGPEqWHYmAYTyMPZuHYMoGW AgICAgICAgICAgICAgICAgICAgICAgICAgICAgICAg NDNjYHVrNQSrYZDhXVXtQPBoQYZpHTQjKOGuTDMeZNFvHBSpJU5ONIBvIUItLVVhJNZuMJFxJZAbKGVn ICAgICAgICAgICAgICAgICAgICAgICAgICAgICAgICAgICAgICAgICAgICAgICAgICAgICAgICAgICAg GHDjUTIdYHZtOXNnURMmTBSiNB0FSBCtKONrGAJuXB AgICAgICAgICAgICAgICAgICAgICAgICAgICAgICAgICAgICAgICAgICAgICAgICAgICAgICAgICAgIC LsUTRxIWOzVVBqKMKdCKExWHOlVXGyWFQrPHObNO0LSLAoXUKoALWqWYIeLZMaUMRpCGAjXXTlBVLnBI AgICAgICAgICAgICAgICAgICAgICAgICAgICAgICAg AWBlJRRlTYNmIUUbAGPwAFGuUYHpUVIaUKMcFXChTJXwKJLlXNInBB3CIN99jONke2A4OIYiGN1zufa/ Yc0QAKvuhsIufFUrTE9HBwBmNZ4chq6RCpJoBX1wqq3IKSiUJzOjZ6Y2tHXeUUCnAUNBQcCvR63pRBxf Xy42DMxpQBWkWhByJBk9Iw5VJnXcQ4nqEGNzKxD1NJ TvLzH7WMFbHiS8LJOmOhJzTHJeNTYnHFPcCUJUZWZ5RBXmTmBoEoBgAFRsLDxjJHCBNALjGIToMnElDQ ksCJ6Hs7UntYT1OSo+El4ORI2sv0OwJPbfAZLwFQ0jyx4AYWwYMyYjT5XchyX7XVL2UWWbSj5AIPNbTC MivGKhDKMhTQNVEsTgY3QotA59KUYBHi8+DQplbmRv PumSPcF6TLUax5KnQDr8QQ0YUXJsEWk5vMDeRVTdI8Cmy1FwLv76HPZrNtayFNxyhvhhsR3uXPdxw7Rt YM6QTTH4FBXwPdDyXjEdEHZzDLckKUCRMGrXZyGkL8Gxe0ByKjY0GCGaFpXqYUysXOVqJtQ9TQ77xKow TQ7HUAAkKHFiUN03IZQ7JGWqKi6IWs1FDnKiEG8xqw 8TQRQjOTLrDqcUObg8NKkqTE8WxNHsX2QmdEJnv4kCWkYyI1LWTKM7ITBaAr2TWPJmAtSyGSHmQVtrKJ 6xUBDhGBLMaKkkwpS5RJ7ZVL5aapRzKS1LPbQbXg2yDp3ISpFyH0NsQ2EmFEPfPXRFHCkjQQ1DXUhiSG 5jAA0Dc2EArBVjuP6kbz3RJVFnLWEhNaqlqp9PTuwd Q4H5wZfwDZFmOrpsVWXEPYsaJU6HUAVkYIM1MTKqYsEeSHVSViOfC86uOU8QR5Phf37iGoL1ZYSwEmHv MVcuPI10uZryrlKvjNRvqRucGN9SJk6+DQplbmRvYmoNCnhyZWYNCjAgNDENCjAwMDAwMDAwMDAgNjU1 MzGhYp7CHWJmAVXeMTClKbFdPZAjDFGhKZqgEKDkCI Y3EeFdDTSrKVDzNS0ADuRoXCZbMAodLSabUDZxVKIfxw2VTOCtJVAhEDE5FaHyBITuIOKiOWpdAUTmQJ O9Jpf6YOKhQQPcGL4ASrTaAAPeDHI7PDGkXYGbPVOjhx1WBJKuBUDbQYV1TVPsFNUbCYVvFDnkLEQqFT K7Tig3CGQyXJTfLE9BTzSdOMAvMYTtQuLxNNAhZEXa fc6TSTPeBRJnLQZ4FzQlTOVcSWPqDVvuPQFfIYSvMCBuMBMuYWSeTY3IWuGjKFCbKPBjVfbfWEItDDKg rv2AEEZqZJDkHxQ7WFUvUAFrGBUsJFvcZDFyKMB2TwB2HXNiMMNzDS1WUvHpIYOuYfXpMGNeFSKcTBQw ov6WZSKiDDXpALM8ArThKVNyDUHyTFleTDBiZYGfMn b4MIRqQLNoDA4YRsPcWCXrLlQ7FXWtYUThKUPdyk0TBSMxFGLmZoYiBFLnXBOzKNVjLAogREMbVKH5NZ B9IBRfPDOjVP3FFwGsYRRcMqftNMGaLUYzVMDecu7ZWKIoEBTjSPPhYJTaSDSsANJfZSakXTFbGPEoWh UsNFBeTXVzOE4RIaCbWRUaWcW5LIvzBSItFKGmeb8R LPXqPSGeWZi8ANVqQJAjSWBfNRscXBIsZOGlAuh1DCOqTZMqBR0IIcYuYTBrEaY6FQMiWYYsGWUcmw3X GUHnZXSbJjU3JJKmYYHwUUYlJNvbYFAqNVZmCvAhHEVvPQUuLA1FAzXjQAOqQTQlLbJqJRCgOVZjvb1U HCPwPQI2TfSyVqHtIGXsEZAzYFxiFJJlWYVwATB9JB TcPCOhWC1NWdTgLFMhLRS1GYTnDRNvBNFcnm1HMHFwLJD9KPjvXMLcDUAwKKPsKIuhUJVeUAU3BGZlCH NfIWYgNY7UHiTuEVObSVGaXWJoAXZeFONkgp7OVJLaAUW1RGnkYDRvXIDuDMZhJUozAOQmBBQ8GzLgTK KhGFIzLU9ELqBkEWZeUCihPbMhSBRcEZHjgn5UUWYp KBI8MdSxYZAaNUNkUUCwJHu5arBeuOFpSKn5QD2ZT5VxlyApZYRGVt4Wd960ZOOsOWAjQr7EI5xcYi1e LOLdADUNNo7OJLs9AxIxOYMbNEcgMhjqWVLeQaWmVSL2SlZrQ6H9OYhkQnc+GKe4RdO9DyGrWPQvIFD4 AAWoWyPlGrB1WbUtUZQ2BCGlXq7bJPQNXf6+ZXbvfSSppQwaNEQFCiR4LuG0XYjaCYNFUh7C ID Date Data Source [id number] 04/26/2019 04:04:00 PM EST [facility] 1 OrderSheet [facility] [address] [place] [address] Phone #: ext- [phone] 04/26/2019 15:25 Patient: [...] R.N.18:05 04/26/2019) Physician;DIAGNOSTIC STUDY ORDERS 2 OrderSheet [facility] [address] [place] [address] Phone #: ext- [phone] 04/26/2019 15:25 Patient: [...] rce(s) Supporting Document(s) ID Date Data Source [id number] 04/26/2019 04:04:00 PM EST [facility] 1 Medication Reconciliation Report [facility] [address] [place] [address] Phone #: ext- [phone] 04/26/2019 15:25 Patient: [...] to the patient:None. 2 Medication Reconciliation Report [facility] [address] [place] [address] Phone #: ext [phone] 04/26/2019 15:25 Patient: NERY WAN Sex: F : 1990 Age: 29y Name Value Range Interpretation Code Description Data Corrie rce(s) Supporting Document(s) ID Date Data Source [id number] 04/26/2019 04:04:00 PM [facility] 1 Medication Administration Record [facility] [address] [place] [address] Phone #: ext- [phone] 04/26/2019 15:25 Patient: NERY WAN Acct#: [id number] Sex: F : 1990 Age: 29yWeight: 74.8 kgHeight/Length: 64 inBMI: 28.3ALLERGIES: Ketamine, Latex, Fentanyl and RelatedDate/Time Medication Administered Medication Ordered Name Value Range Interpretation Code Description Data Corrie rce(s) Supporting Document(s) ID Date Data Source [id number] 04/26/2019 04:04:00 PM [facility] 1 General Instructions [facility] [address] [place] [address] Phone #: ext [phone] 04/26/2019 15:25 Patient: NERY WAN Sex: F : 1990 Age: 29yMild pre-menopausal dysfunctional uterine bleeding. (Minimal).Vaginal discharge (Mild).INSTRUCTIONSDrink plenty of fluids.Warnings: GENERAL WARNINGS: Return or contact your physician immediately if your conditionworsens or changes unexpectedly, if not improving as expected, or if other problems arise.Follow- up:Follow up with a resource efficiency manager if not better. Call for an appointment. Reason for referral: evaluation,treatment and Dysfunction uterine bleeding / Cystitis / Bacterial vaginosis.Understanding of the discharge instructions verbalized by patient. ADDITIONAL INFORMATIONDysfunctional Uterine BleedingDysfunctional uterine bleeding, also called abnormal uterine bleeding, is a condition in which bleeding 2 General Instructions [facility] [address] [place] [address] Phone #: ext- [phone] 04/26/2019 15:25 Patient: NERY WAN Sex: F : 1990 Age: 29yis abnormal and occurs at unexpected times of the month. This happens because of changes in thehormones that help control a woman's menstrual cycle each month.The bleeding may be heavier or cork floor installer than normal. If you have heavy bleeding [...] better even with treatment 3 General Instructions [facility] [address] [place] [address] Phone #: ext- [phone] 04/26/2019 15:25 Patient: NERY WAN Sex: F : 1990 Age: 29y Fever of 100.4F (38C) or higher, or as directed by your provider Signs of anemia, such as pale skin, extreme fatigue or weakness, or shortness of breath Dizziness or fainting [id number] [employer]. [address] [place] [address]. All rights re served. This information is [...] more than one partner 4 General Instructions [facility] [address] [place] [address] Phone #: ext- [phone] 04/26/2019 15:25 - [...] (STDs) [facility] is most often treated with medicines [...] or cream you're prescribed. 5 General Instructions [facility] [address] [place] [address] Phone #: ext- [phone] 04/26/2019 15:25 Patient: NERY WAN Sex: F : 1990 Age: 29y You or any partners you have sex with have new symptoms, such as a rash, joint pain, or sores. [phone] [employer]. [address] [place] [address]. All rights reserved. This information is not intended as asubstitute for professional medical care. Always follow your healthcare professional's instructions. You have been given the following additional information: Dysfunctional Uterine Bleeding Bacterial Vaginosis (BV)(Electronically signed by Vamsi Novoa, Physician 04/27/2019 08:06) Name Value Range Interpretation Code Description Data Corrie rce(s) Supporting Document(s) ID Date Data Source [id number] 04/26/2019 04:04:00 PM EST [facility] 1 Clinical Report - Nurses [facility] [address] [place] [address] Phone #: [phone] ext- [phone] 04/26/2019 15:25 Patient: NERY WAN Sex: F : 1990 Age: 29yTRIAGEArrived by private vehicle. Historian: patient.Acuity: LEVEL 3.Chief Complaint: VAGINAL BLEED and ABDOMINAL PAIN.Onset. (1 weeks ago). ( Pt states she was taken to [facility] 3 days ago for abdominal pain along with vaginalbleeding, she was worked up and told per her OBGYN that her bladder is 3 times larger than normal andhas bleeding outside of the bladder, she voices the vaginal bleeding continues today and voices 6 pads perhour).Treatment CLOTH PRESSER:Seen within the last 72 hours at another [...] Childers RN 2 Clinical Report - Nurses [facility] [address] [place] [address] Phone #: ext- [phone] 04/26/2019 15:25 Patient: [...] Childers RN.Interventions 3 Clinical Report - Nurses [facility] [address] [place] [address] Phone #: ext- [phone] 04/26/2019 15:25 Patient: NERY WAN Sex: F : 1990 Age: 29y To waiting room. --15:54 04/26/19 Wesley Childers RN.PHYSICAL HEAZNVVDNH53:13 04/26/19. Ambulatory to room.GENERAL / NEURO / [...] Sheffield R.N. 18:15 04/26/19. Patient transported to [facility] by wheelchair with copy technician. --18:15 04/26/19 Tacos Sharif R.N. 18:15 [...] RR: 16. O2 saturation: 98%. --18:57 04/26/19 [place] [id number] 19:03 04/26/19. [facility]. --19:18 04/26/19 Tacos Sharif R.N. Reassurance [...] / DISCHARGE 4 Clinical Report - Nurses [facility] [address] [place] [address] Phone #: ext- [phone] 04/26/2019 15:25 Patient: NERY WAN Sex: F [...] medication(s). Treatments reviewed. Reviewed referral to a resource efficiency manager and primary care physician. Patient verbalized understanding. Written instructions provided in Mauritanian. The patient was discharged by the physician. [...] rce(s) Supporting Document(s) ID Date Data Source [id number] 04/26/2019 04:04:00 PM [facility] 1 Clinical Report - Physicians/Mid Levels [facility] [address] [place] [address] Phone #: ext- [phone] 04/26/2019 15:25 Patient: NERY WAN Sex: F [...] the emergency department. ( seen at [facility] 3 days ago).REVIEW OF SYSTEMSNo [...] air. 2 Clinical Report - Physicians/Mid Levels [facility] [address] [place] [address] Phone #: ext- [phone] 04/26/2019 15:25 Patient: NERY WAN Sex: F [...] Test Result Flag Units (Reference) [place] [address] ---------NAME--------- NUMBER SEX AGE ADMIT DISC. XRAY# F/C TYPE SOCO Wisdom [id number] F 29 04/26/19 [id number] XBE E/R DATE OF : 1990 M/R# [id number] #: [id number] VT-05 LOCATION: EMERGENCY DEPT TRANSCRIBED: 04/26/19 19:09 IF US TRANSVAGINAL [id number] COMPLETED:04/26/19 19:10 meme [id number] {REASON FOR PELVIS: irregular vaginal bleeding -- PHYSICIAN: JONN SCHAEFER -- -- R A D I O L O G Y R E P O R T -- PATIENT HISTORY: intermittent pelvic pain and irregular vaginal bleeding, , currently on exelon arm contraceptive device, h/o of hodgkins lymphoma 8579-4113, w/bone marrow transplant in 2011 and remission since 2013 EXAM: US Pelvis, Complete. -- CLINICAL HISTORY: Intermittent pelvic pain and irregular vaginal bleeding, , currently on exelon arm contraceptive device, h/o of hodgkins lymphoma 9885-2370, w/bone marrow transplant in 2011 and remission since 2013 -- TECHNIQUE: Transvaginal pelvic ultrasound (complete) with image documentation. -- COMPARISON: Transabdominal pelvic ultrasound earlier the same day. -- -- FINDINGS: -- 3 Clinical Report - Physicians/[facility] Emergency Department [address] [place] [address] Phone #: ext- [phone] 04/26/2019 15:25 Patient: [...] ABD //T// PELV W/O ORAL [place] [address] ---------NAME--------- NUMBER SEX AGE ADMIT DISC. XRAY# F/C TYPE SOCO Wisdom [id number] F 29 04/26/19 [id number] XBE E/R DATE OF : 1990 M/R# [id number] #: [id number] VT-05 LOCATION: EMERGENCY DEPT TRANSCRIBED: 04/26/19 19:[address] ABD //T// PELV W/O ORAL W/[place] [id number] COMPLETED:04/26/19 19:15 meme [id number] Reason(s): Abdominal Pain Pelvic Pain PHYSICIAN: JONN [...] FINDINGS: 4 Clinical Report - Physicians/Mid Levels [facility] [address] [place] [address] Phone #: ext- [phone] 04/26/2019 15:25 Patient: NERY WAN Sex: F [...] - 1.23) 5 Clinical Report - Physicians/[facility] Emergency Department [address] [place] [address] Phone #: ext- [phone] 04/26/2019 15:25 Patient: NERY WAN Sex: F : 1990 Age: 29y \\BLDo\\INR INTERPRETATION\\BLDx\\ Therapeutic range for Coumadin andrelated oral anticoagulants. -International Normalized Ratio (INR): 2.0 - 3.0 for VenousThrombosis, Pulmonary Embolus, Tissue heart valves, Acute ME, Atrial Fibrillation, Valvular heartdisease and recurrent Systemic [...] yrs 6 Clinical Report - Physicians/Mid Levels [facility] [address] [place] [address] Phone #: ext- [phone] 04/26/2019 15:25 Patient: NERY WAN Sex: F : 1990 Age: 29y NON-AA GFR >60 mL/min AFR AMER GFR >60 mL/min Male GFR Interprentation 20-49 yrs >60 mL/min Fzgkxh68-19 yrs >56 mL/min Normal 60-69 yrs >49 mL/min Normal 70-79yrs>42 mL/min Normal 80 and above >35 mL/min Normal Female GFRInterpretation 20-39 yrs >60 mL/min Normal 40-49 yrs >58 mL/minNormal 50-59 yrs > 51 mL/min Normal 60-69 yrs >45 mL/min Nyorpz59-56 yrs >39 mL/min Normal 80 and above >32 mL/min NormalCPK: (HUSSEIN: 04/26/2019 18:05) ( MsgRcvd 04/26/2019 18:59) Final results Test Result Flag Units (Reference) CPK 58 U/L (30 - 170)US Pelvis: (HUSSEIN: 04/26/2019 17:55) ( MsgRcvd 04/26/2019 19:11) Final resultsUS PELVICReason(s): Abnormal BleedingTRANSPORTATION: WC IV? O2? Oxygen?(No) Room: ED: No Exam [facility] [address] [place] [address] ---------NAME--------- NUMBER SEX AGE ADMIT DISC. XRAY# F/C TYPE SOCO Wisdom [id number] F 29 04/26/19 [id number] XBE E/R DATE OF : 1990 M/R# [id number] #: [id number] VT-05 LOCATION: EMERGENCY DEPT TRANSCRIBED: 04/26/19 19:10 IF US PELVIC [id number] COMPLETED:04/26/19 19:11 meme [id number] Reason(s): Abnormal Bleeding PHYSICIAN: JONN BR R A D I O L O G Y R E P O R T PATIENT HISTORY: intermittent pelvic pain and irregular vaginal bleeding, , currently on exelon arm contraceptive device, h/o of hodgkins lymphoma [id number], w/bone marrow transplant in 2011 and remission since 2013 EXAM: US Pelvis, Complete. CLINICAL HISTORY: Intermittent pelvic pain and irregular vaginal bleeding, , currently on exelon arm contraceptive device, h/o of hodgkins lymphoma [id number], w/bone marrow transplant in 2011 and remission since 2013 TECHNIQUE: Transabdominal pelvic ultrasound (complete) with image documentation. COMPARISON: None provided. FINDINGS: ENDOMETRIUM: Normal thickness. UTERUS/CERVIX: The uterus is not seen. RIGHT OVARY: Not seen LEFT OVARY: Not seen. FREE FLUID: No free fluid. Bladder: No filling defect or bladder wall mass. IMPRESSIONS: 7 Clinical Report - Physicians/Mid [facility] [address] [place] [address] Phone #: ext- [phone] 04/26/2019 15:25 Patient: [...] being treated for bacterial vaginosis by her resource efficiency manager and she is on an antibiotic. Labs [...] (Mild). 8 Clinical Report - Physicians/Mid Levels [facility] [address] [place] [address] Phone #: ext- [phone] 04/26/2019 15:25 Patient: NERY WAN Sex: F : 1990 Age: 29yINSTRUCTIONS Drink plenty of fluids. Warnings: GENERAL WARNINGS: Return or contact your physician immediately if your condition worsens or changes unexpectedly, if not improving as expected, or if other problems arise. Follow-up: Follow up with a resource efficiency manager if not better. Call for an appointment. Reason for referral: evaluation, treatment and Dysfunction uterine bleeding / Cystitis / Bacterial vaginosis. Understanding of the discharge instructions verbalized by patient.(Electronically signed by Vamsi Novoa, Physician 04/27/2019 08:06) Name Value Range Interpretation Code Description Data Corrie rce(s) Supporting Document(s) ID Date Data Source [id number] 04/26/2019 08:43:00 PM [facility] [address] [facility] [place] [address] ---------NAME--------- NUMBER SEX AGE ADMIT DISC. XRAY# F/C TYPE SOCO NERY Wisdom [id number] F 29 04/26/19 [id number] [id number] E/R DATE OF : 1990 M/R# [id number] PH#: [phone] [place]-05 LOCATION: EMERGENCY DEPT TRANSCRIBED: 04/26/19 19:[address] ABD //T// PELV W/O ORAL W/[place] [id number] COMPLETED:04/26/19 19:15 meme [id number] Reason(s): Abdominal Pain Pelvic Pain PHYSICIAN: JONN [...] rce(s) Supporting Document(s) ID Date Data Source [id number] 04/26/2019 07:10:00 PM [facility] [address] [place] [address] ---------NAME--------- NUMBER SEX AGE ADMIT DISC. XRAY# F/C TYPE SOCO GABRIEL M [id number] F 29 04/26/19 [id number] XBE E/R DATE OF : 1990 M/R# [id number] #: [id number] [place]-05 LOCATION: EMERGENCY DEPT TRANSCRIBED: 04/26/19 19:10 IF US PELVIC [id number] COMPLETED:04/26/19 19:11 meme [id number] Reason(s): Abnormal Bleeding PHYSICIAN: JONN BR======== R A D I O L O G Y R E P O R T =PATIENT HISTORY:intermittent pelvic pain and irregular vaginal bleeding, , currently onexelon arm contraceptive device, h/o of hodgkins lymphoma [id number], w/bonemarrow transplant in 2011 and remission since 2013EXAM: US Pelvis, Complete.CLINICAL HISTORY: Intermittent pelvic pain and irregular vaginal bleeding, ,currently on exelon arm contraceptive device, h/o of hodgkins [id number], w/bone marrow transplant in 2011 and remission [...] rce(s) Supporting Document(s) ID Date Data Source [id number] 04/26/2019 07:09:00 PM [facility] [address] [place] [address] ---------NAME--------- NUMBER SEX AGE ADMIT DISC. XRAY# F/C TYPE SOOC NERY Wisdom [id number] F 29 04/26/19 [id number] XBE E/R DATE OF : 1990 M/R# [id number] #: [id number] [place]-05 LOCATION: EMERGENCY DEPT TRANSCRIBED: 04/26/19 19:09 IF US TRANSVAGINAL [id number] COMPLETED:04/26/19 19:10 meme [id number] {REASON FOR PELVIS: irregular vaginal bleeding PHYSICIAN: JONN BR = R A D I O L O G Y R E P O R T PATIENT HISTORY:intermittent pelvic pain and irregular vaginal bleeding, , currently onexelon arm contraceptive device, h/o of hodgkins lymphoma [id number], w/bonemarrow transplant in 2011 and remission since 2013EXAM: US Pelvis, Complete.CLINICAL HISTORY: Intermittent pelvic pain and irregular vaginal bleeding, ,currently on exelon arm contraceptive device, h/o of hodgkins [id number], w/bone marrow transplant in 2011 and remission [...] rce(s) Supporting Document(s) ID Date Data Source [id number] 05/02/2019 11:39:00 AM [facility] [address] Name Value Range Interpretation Code Description Data Corrie rce(s) Supporting Document(s) Bacteria identified in Blood by Culture [facility] NO GROWTH AFTER 5 DAYS ID Date Data Source [id number] 05/02/2019 09:18:00 PM [facility] Name Value Range Interpretation Code Description Data Corrie rce(s) Supporting Document(s) CULTURE BLOOD [facility] _CULTURE BLOOD_ [place] [address] CLIA# [id number] SEE SCANNED REPORT{ PRELIM ID Date Data Source [id number] 05/02/2019 09:18:00 PM [facility] Name Value Range Interpretation Code Description Data Corrie rce(s) Supporting Document(s) CULTURE BLOOD [facility] _CULTURE BLOOD_ TEST PERFORM ED AT [address] [address] [facility]# [id number] SEE SCANNED REPORT{ PRELIM ID Date Data Source [id number] 04/26/2019 06:59:00 PM [facility] Name Value Range Interpretation Code Description Data Corrie rce(s) Supporting Document(s) Creatine kinase [Enzymatic activity/volume] in Serum or Plasma 5 8 U/L 30 - 170 [facility] ID Date Data Source [id number] 04/26/2019 06:59:00 PM [facility] Name Value Range Interpretation Code Description Data Corrie rce(s) Supporting Document(s) COMPREHENSIVE METABOLIC PANEL [facility] COMPREHENSIVE METABOLIC PANEL Sodium [Moles/volume] in Serum or Plasma 139 mEq/L 134 - 153 [facility] Potassium [Moles/volume] in Serum or Plasma 4.2 mEq/L 3.6 - 5.0 [facility] Chloride [Moles/volume] in Serum or Plasma 104 mEq/L 98 - 107 [facility] Carbon dioxide, total [Moles/volume] in Serum or Plasma 26 MEQ/L 22 - 30 [facility] Glucose [Mass/volume] in Serum or Plasma 86 MG/DL 65 - 110 [facility] BUN 19 MG/DL 7 - 21 [facility] Creatinine [Mass/volume] in Serum or Plasma 0.9 MG/DL 0.7 - 1.5 [facility] BUN/CREAT 21 8 - 27 [facility] Protein [Mass/volume] in Serum or Plasma 7.1 G/DL 6.3 - 8.2 [facility] Albumin [Mass/volume] in Serum or Plasma 4.5 G/DL 3.9 - 5.0 [facility] Globulin [Mass/volume] in Serum by calculation 2.6 GM/DL 2.4 - 3.2 [facility] A/G RATIO 1.7 0.8 - 2.0 [facility] Calcium [Mass/volume] in Serum or Plasma 9.6 MG/DL 8.4 - 10.2 [facility] Bilirubin.total [Mass/volume] in Serum or Plasma 0.7 MG/DL 0.2 - 1.3 [facility] Alkaline phosphatase [Enzymatic activity/volume] in Serum or Plasma 52 U/L 38 - 126 [facility] Aspartate aminotransferase [Enzymatic activity/volume] in Serum or Plasma 13 U/L 5 - 40 [facility] Alanine aminotransferase [Enzymatic activity/volume] in Seru m or Plasma 10 U/L 7 - 56 [facility] Anion gap 3 in Serum or Plasma 9.0 mmol/L 8.0 - 16.0 [facility] AGE 29 yrs [facility] NON-AA GFR >60 mL/min [facility] AFR AMER GFR >60 mL/min [facility] Male GFR In [...] >32 mL/min Normal ID Date Data Source [id number] 04/26/2019 06:59:00 PM [facility] Name Value Range Interpretation Code Description Data Corrie rce(s) Supporting Document(s) Lipase [Enzymatic activity/volume] in Serum or Plasma 33 U/L 13 - 60 [facility] ID Date Data Source [id number] 04/26/2019 06:42:00 PM [facility] Name Value Range Interpretation Code Description Data Corrie rce(s) Supporting Document(s) aPTT in Blood by Coagulation assay 26.1 SECONDS 24.8 - 36.7 [facility] ID Date Data Source [id number] 04/26/2019 06:42:00 PM [facility] Name Value Range Interpretation Code Description Data Corrie rce(s) Supporting Document(s) Prothrombin time (PT) 12.4 SECONDS 11.0 - 15.5 [facility] INR in Platelet poor plasma by Coagulation assay 0.91 0.93 - 1. 23 L [facility] \\BLDo\\INR INTERPRETATION\\BLDx\\ Therapeutic range for Coumadin and related oral anticoagulants. - International Normalized Ratio (INR): 2.0 - 3.0 for Venous Thrombosis, Pulmonary Embolus, Tissue heart valves, Acute ME, Atrial Fibrillation, Valvular heart disease and recurrent Systemic Embolism. -International Normalized Ratio (INR): 2.5 - 3.5 for Mechanical Prosthetic valve. ID Date Data Source [id number] 04/26/2019 06:31:00 PM EST [facility] Name Value Range Interpretation Code Description Data Corrie rce(s) Supporting Document(s) CBC W/AUTOMATED DIFF [facility] COMPLETE BLOOD COUNT Leukocytes [#/volume] in Blood by Automated count 5.8 10^3/uL 4.2 - 1 1.0 [facility] Erythrocytes [#/volume] in Blood by Automated count 4.31 10^6/uL 4. 20 - 5.40 [facility] Hemoglobin [Mass/volume] in Blood 12.2 g/dL 12.0 - 16.0 [facility] Hematocrit [Volume Fraction] of Blood by Automated count 37.8 % 3 7.0 - 47.0 [facility] Erythrocyte mean corpuscular volume [Entitic volume] by Auto mated count 87.7 fL 81.0 - 101 [facility] Erythrocyte mean corpuscular hemoglobin [Entitic mass] by Automated count 28.3 pg 27.0 - 34.0 [facility] Erythrocyte mean corpuscular hemoglobin concentration [Mass/volume] by Automated count 32.3 g/dL 31.0 - 36.0 [facility] Erythrocyte distribution width [Ratio] by Automated count 12.1 % 11.5 - 14.5 [facility] Platelets [#/volume] in Blood by Automated count 195 10^3/uL 150 - 45 0 [facility] Platelet mean volume [Entitic volume] in Blood by Automated count 9.2 fL 7.4 - 10.4 [facility] Neutrophils/100 leukocytes in Blood by Automated count 56.2 % 37. 0 - 80.0 [facility] Lymphocytes/100 leukocytes in Blood by Manual count 36.0 % 25.0 - 40.0 [facility] Monocytes/100 leukocytes in Blood by Automated count 6.0 % 3.0 - 8.0 [facility] Eosinophils/100 leukocytes in Blood by Automated count 1.2 % 0.0 - 7.0 [facility] Basophils/100 leukocytes in Blood by Automated count 0.3 % 0.0 - 2.5 [facility] %IG 0.3 % 0.0 - 0.0 [facility] %NRBC 0.0 % 0.0 - 0.0 [facility] Neutrophils [#/volume] in Blood by Automated count 3.28 10^3/uL 2.00 - 6.90 [facility] Lymphocytes [#/volume] in Blood by Automated count 2.10 10^3/uL 0.60 - 3.40 [facility] Monocytes [#/volume] in Blood by Automated count 0.35 10^3/uL 0.00 - 0.90 [facility] Eosinophils [#/volume] in Blood by Automated count 0.07 10^3/uL 0.00 - 0.70 [facility] Basophils [#/volume] in Blood by Automated count 0.02 10^3/uL 0.00 - 0.20 [facility] #IG 0.02 10^3/uL 0.00 - 0.10 [facility] #NRBC 0.00 10^3/uL 0.00 - 0.00 [facility] ospital MANUAL DIFF NOT INDICATED [facility] RBC MORPH NOT INDICATED [facility] spital ID Date Data Source [id number] 04/26/2019 05:32:00 PM EST [facility] Name Value Range Interpretation Code Description Data Corrie rce(s) Supporting Document(s) [facility] S[facility] Clean Catch [facility] ital COLOR yellow NORMAL: Yellow [facility] ospital CLARITY clear NORMAL: Clear [facility] Specific gravity of Urine by Test strip 1.030 1.001 - 1.030 [facility] pH 5 5 - 9 [facility] Glucose [Mass/volume] in Urine by Test strip NORM NORMAL: Negat sy [facility] Bilirubin.total [Presence] in Urine by Test strip NEG NORMAL: Negative [facility] Ketones [Presence] in Urine by Test strip 5 NORMAL: Negative A [facility] Protein [Mass/volume] in Urine by Test strip 15 NORMAL: Negat sy [facility] Nitrite [Presence] in Urine by Test strip NEG NORMAL: Negative [facility] BLOOD 25 NORMAL: Negative A [facility] Leukocyte esterase [Presence] in Urine by Test strip 25 STORMY L: Negative [facility] Urobilinogen [Mass/volume] in Urine by Test strip NOR less sapphire n 1.0 mg/dL [facility] MICROSCOPIC See Below [facility] WBC 1 - 3 NORMAL: NONE SEEN [facility] Erythrocytes [#/volume] in Urine by Test strip 1 - 3 NORMAL: NON E SEEN [facility] EPITHELIAL FEW NORMAL: NONE SEEN [facility] Mucus [Presence] in Urine sediment by Light microscopy Trace NORMAL: NONE SEEN [facility] ID Date Data Source [id number] 04/25/2019 10:48:52 PM [facility] Name Value Range Interpretation Code Description Data Corrie rce(s) Supporting Document(s) Progress Note [facility] [id number] lbm [file] [id number] ID Date Data Source [id number] 04/25/2019 10:48:47 PM [facility] Name Value Range Interpretation Code Description Data Corrie rce(s) Supporting Document(s) Progress Note [facility] [id number] lbm [file] [id number] ID Date Data Source [id number] 04/22/2019 02:18:59 PM [facility] Name Value Range Interpretation Code Description Data Corrie rce(s) Supporting Document(s) Leukocytes [#/volume] in Blood by Automated count 6.9 10*3/uL 4-10 [facility] Erythrocytes [#/volume] in Blood by Automated count 4.88 10*6/uL 4.1- 5.3 [facility] Hemoglobin [Mass/volume] in Blood 14.1 g/dL 11.5-15.5 [facility] Hematocrit [Volume Fraction] of Blood by Automated count 42.9 % 3 6-45 [facility] Erythrocyte mean corpuscular volume [Entitic volume] by Auto mated count 88.0 fL 80-96 [facility] Erythrocyte mean corpuscular hemoglobin [Entitic mass] by Automated count 29.0 pg 27-33 [facility] Erythrocyte mean corpuscular hemoglobin concentration [Mass/volume] by Automated count 33.0 g/dL 32.0-36.0 [facility] E[facility]throcyte distribution width [Ratio] by Automated count 13.1 % 11.5-14.5 [facility] Platelets [#/volume] in Blood by Automated count 234 10*3/uL 150-400 [facility] Differential cell count method - Blood [facility] Neutrophils/100 leukocytes in Blood by Automated count 71 % [facility] Lymphocytes/100 leukocytes in Blood by Automated count 22 % [facility] Monocytes/100 leukocytes in Blood by Automated count 5 % [facility] Eosinophils/100 leukocytes in Blood by Automated count 1 % [facility] Basophils/100 leukocytes in Blood by Automated count 1 % [facility] Neutrophils [#/volume] in Blood by Automated count 4.90 10*3/uL 1.8-7 .0 [facility] Lymphocytes [#/volume] in Blood by Automated count 1.54 10*3/uL 1.2-4 .0 [facility] Monocytes [#/volume] in Blood by Automated count 0.34 10*3/uL 0-0.8 [facility] Eosinophils [#/volume] in Blood by Automated count 0.06 10*3/uL 0-0.5 [facility] Basophils [#/volume] in Blood by Automated count 0.05 10*3/uL 0-0.2 [facility] Nucleated erythrocytes/100 leukocytes [Ratio] in Blood by Automated count 0 /100{WBCs} 0-0 [facility] ID Date Data Source [id number] 04/22/2019 03:10:46 PM [facility] Name Value Range Interpretation Code Description Data Corrie rce(s) Supporting Document(s) Lactate dehydrogenase [Enzymatic activit y/volume] in Serum or Plasma by Lactate to pyruvate reaction 172 U/L 122-214 [facility] ID Date Data Source [id number] 04/22/2019 03:10:46 PM [facility] Name Value Range Interpretation Code Description Data Corrie rce(s) Supporting Document(s) Albumin [Mass/volume] in Serum or Plasma by Bromocresol green (BCG) dye binding method 4.6 g/dL 3.5-5.2 [facility] Bilirubin.total [Mass/volume] in Serum or Plasma 0.3 mg/dL <1.2 [facility] Calcium [Mass/volume] in Serum or Plasma 9.2 mg/dL 8.6-10.0 [facility] Chloride [Moles/volume] in Serum or Plasma 102 mmol/L 98-107 [facility] Creatinine [Mass/volume] in Serum or Plasma 0.86 mg/dL 0.50-0.90 [facility] Glucose [Mass/volume] in Serum or Plasma 98 mg/dL 70-140 [facility] Alkaline phosphatase [Enzymatic activity/volume] in Serum or Plasma 59 U/L 35-104 [facility] Potassium [Moles/volume] in Serum or Plasma 4.1 mmol/L 3.4-5.1 [facility] Protein [Mass/volume] in Serum or Plasma 7.5 g/dL 6.4-8.3 [facility] Sodium [Moles/volume] in Serum or Plasma 139 mmol/L 136-145 [facility] Aspartate aminotransferase [Enzymatic activity/volume] in Serum or Plasma 15 U/L <32 [facility] Urea nitrogen [Mass/volume] in Serum or Plasma 17 mg/dL 6-20 [facility] Osmolality of Serum or Plasma by calculation 289 mosm/kg 275-300 [facility] Creatinine/Urea nitrogen [Mass Ratio] in Serum or Plasma 19 [facility] Bicarbonate [Moles/volume] in Serum 22 mmol/L 22-29 [facility] Alanine aminotransferase [Enzymatic activity/volume] in Seru m or Plasma 11 U/L <33 [facility] Anion gap 3 in Serum or Plasma 14 mmol/L 8-15 [facility] Albumin/Globulin [Mass Ratio] in Serum or Plasma 1.6 [facility] Glomerular filtration rate/1.73 sq M pre dicted among non-blacks [Volume Rate/Area] in Serum or Plasma by Creatinine-based formula (MDRD) >6 0 [facility] Glomerular filtration rate/1.73 sq M pre dicted among blacks [Volume Rate/Area] in Serum or Plasma by Creatinine-based formula (MDRD) >60 [facility] ID Date Data Source [id number] 03/13/2019 11:26:00 AM EST [facility] ([facility] [employer]) Name Value Range Interpretation Code Description Data Corrie rce(s) Supporting Document(s) Appearance, Urine CLOUDY Above high normal MEDE NT ([facility] [employer]) Color, Urine YELLOW [facility] ([facility] [employer]) PH,Urine 5.0 units 5.0-9.0 [facility] ([facility] O B/CLIENT LIAISON) Protein, Urine Auto NEGATIVE mg/dL [facility] T ([facility] [employer]) Specific [place] Urine Auto 1.021 1.002-1.035 [facility] ([facility] [employer]) Glucose, Urine (Ua) Auto NEGATIVE mg/dL [facility] ([facility] [employer]) Urobilinogen, Urine Auto 0.2 mg/dL 0.0-2.0 [facility] T ([facility] [employer]) Ketone, Urine Auto NEGATIVE mg/dL [facility] ([facility] [employer]) Bilirubin, Urine Auto NEGATIVE [facility] ( [facility] [employer]) Nitrite, Urine Auto NEGATIVE [facility] ([facility] [employer]) Leukocyte Esterase, Urine Auto 3+ Above high stormy l [facility] ([facility] [employer]) RBC, Urine Auto 6 /HPF 0-3 Above high normal [facility] ([facility] [employer]) Blood, Urine Blood NEGATIVE [facility] ([facility] [employer]) WBC, Urine Auto 11 /HPF 0-3 Above high normal [facility] ([facility] [employer]) Squamous Epithelial Cell Ur AU 16 /HPF 0-6 [facility] ([facility] [employer]) Hyaline Cast, Urine Auto 0 /LPF 0-1 [facility] T ([facility] [employer]) Bacteria, Urine Auto 2+ Above high normal M [facility]ENT ([facility] [employer]) ID Date Data Source [id number] 03/13/2019 11:26:00 AM EST [facility] ([facility] [employer]) Name Value Range Interpretation Code Description Data Corrie rce(s) Supporting Document(s) Urine Culture Result NO GROWTH [facility] ([facility] [employer]) <External Comment eCWMed> FULL REPORT IN L <SEE NOTE> [facility] ([facility] [employer]) FULL REPORT IN LAB NOTES (eCW and [facility] ). Procedure Social History Code Duration Value Status Description Data Source(s ) Smoking 04/01/2020 12:00:00 AM EST Patient has never smoked co mpleted Patient has never smoked [facility] ([facility], ) Smoking 03/27/2020 12:00:00 AM EST Never Smoker completed Never S moker eCW1 ([facility]) Smoking 03/27/2020 12:00:00 AM EST Never Smoker completed Never S moker eCW1 ([facility]) Smoking 03/27/2020 12:00:00 AM EST Never Smoker completed Never S moker eCW1 ([facility]) Smoking 03/25/2020 12:00:00 AM EST Non-smoker, Non-drink er, Non-drug User completed Non-smoker, Non-drinker, Non-drug User [facility] ([facility] [employer]) Alcohol intake 03/18/2020 12:00:00 AM EST Ex-drinker (finding) comp leted Ex- drinker (finding) [facility] Tobacco use and exposure 03/18/2020 12:00:00 AM EST Never used co mpleted Never used [facility] Smoking 03/18/2020 12:00:00 AM EST Never smoker completed Never s [facility] Smoking 02/25/2020 12:00:00 AM EST Never Smoker completed Never S moker eCW1 ([facility]) Smoking 01/29/2020 06:23:00 PM EDT Denies Ever Smoked complete d Denies Ever Smoked [facility] Alcohol intake 01/25/2020 12:00:00 AM EDT Current non-d kumar of alcohol (finding) completed Current non-drinker of alcohol (finding) [facility] Smoking 01/20/2020 12:00:00 AM EDT Never Smoker completed Never S moker eCW1 ([facility]) Smoking 01/20/2020 12:00:00 AM EDT Never Smoker completed Never S moker eCW1 ([facility]) Smoking 01/20/2020 12:00:00 AM EDT Never Smoker completed Never S moker eCW1 ([facility]) Smoking 01/11/2020 12:00:00 AM EDT Unknown if ever smoked comp leted Unknown if ever smoked [facility] Alcohol intake 01/06/2020 12:00:00 AM EDT Current non-d kumar of alcohol (finding) completed Current non-drinker of alcohol (finding) [facility] Alcohol intake 11/05/2019 12:00:00 AM EDT Current non-d kumar of alcohol (finding) completed Current non-drinker of alcohol (finding) [facility] Smoking 11/05/2019 12:00:00 AM EDT Never smoker completed Never s [facility] Smoking 09/11/2019 12:00:00 AM EDT Never Smoked Cigarettes com pleted Never Smoked Cigarettes [facility] ([facility]) Alcohol intake 08/07/2019 12:00:00 AM EDT Current non-d kuamr of alcohol (finding) completed Current non-drinker of alcohol (finding) [facility] Smoking 08/07/2019 12:00:00 AM EDT Never smoker completed Never s [facility] Smoking 08/02/2019 12:00:00 AM EDT Never Smoker completed Never S moker eCW1 ([facility]) Smoking 08/02/2019 12:00:00 AM EDT Never Smoker completed Never S moker eCW1 ([facility]) Alcohol intake 04/25/2019 12:00:00 AM EST Current non-d kumar of alcohol (finding) completed Current non-drinker of alcohol (finding) [facility] Smoking 04/25/2019 12:00:00 AM EST Never smoker completed Never s [facility] Vital Signs ID Date Data Source UNK Name Value Range Interpretation Code Description Data Source(s) Body surface area Derived from formula 1.75 m2 1.75 m2 [facility] Body weight 69.854 kg 69.854 kg [facility] ([facility]) Vansant body weight 120 [lb_av] 120 [lb_av] MED[facility] T ([facility]) Body mass index (BMI) [Ratio] 26.4 kg/m2 26.4 k g/m2 [facility] Body weight 154.00 [lb_av] 154.00 [lb_av] [facility] Body height 64 [in_i] 64 [in_i] [facility] ([facility]) 5'4" Oxygen saturation in Arterial blood by Pulse oximetry 99 % 99 % [facility] ([facility]) Heart rate 103 /min 103 /min [facility]) Diastolic blood pressure 80 mm[Hg] 80 mm[Hg] [facility] ([facility]) Systolic blood pressure 120 mm[Hg] 120 mm[Hg] M [facility]ENT ([facility]) Diastolic blood pressure 66 mm[Hg] 66 mm[Hg] eCW1 ([facility]) Systolic blood pressure 100 mm[Hg] 100 mm[Hg] e CW1 ([facility]) Body temperature 97.4 [degF] 97.4 [degF] eCW1 ( [facility]) Respiratory rate 18 /min 18 /min eCW1 ([facility]) Heart rate 111 /min 111 /min eCW1 ([facility]) Body mass index (BMI) [Ratio] 26.12 kg/m2 26.12 kg/m2 W1 ([facility]) Body height 65 [in_i] 65 [in_i] eCW1 ([facility]) Body weight 157 [lb_av] 157 [lb_av] eCW1 ([facility]) Diastolic blood pressure 66 mm[Hg] 66 mm[Hg] [facility] ([place] [facility] [employer]) Systolic blood pressure 104 mm[Hg] 104 mm[Hg] M EDENT ([facility] [place] [facility] [employer]) Body surface area Derived from formula 1.76 m2 1.76 m2 [facility] Body weight 70.535 kg 70.535 kg [facility] ([facility]) V[place] body weight 120 [lb_av] 120 [lb_av] MED[facility] T ([facility]) Body mass index (BMI) [Ratio] 26.7 kg/m2 26.7 k g/m2 [facility] ([facility]) Body weight 155.50 [lb_av] 155.50 [lb_av] [facility] Body height 64 [in_i] 64 [in_i] [facility] ([facility]) 5'4" Oxygen saturation in Arterial blood by Pulse oximetry 98 % 98 % [facility] ([facility]) Heart rate 89 /min 89 /min [facility] ([facility]) Diastolic blood pressure 78 mm[Hg] 78 mm[Hg] [facility] ([facility]) Systolic blood pressure 116 mm[Hg] 116 mm[Hg] M [facility] ([facility]) Diastolic blood pressure 56 mm[Hg] 56 mm[Hg] [facility] ([place] [employer]) Systolic blood pressure 116 mm[Hg] 116 mm[Hg] [facility] ([place] [employer]) Diastolic blood pressure 62 mm[Hg] 62 mm[Hg] eCW1 ([facility]) Systolic blood pressure 100 mm[Hg] 100 mm[Hg] e CW1 ([facility]) Body temperature 97.9 [degF] 97.9 [degF] eCW1 ( [facility]) Respiratory rate 18 /min 18 /min eCW1 ([facility]) Heart rate 106 /min 106 /min eCW1 ([facility]) Body mass index (BMI) [Ratio] 25.06 kg/m2 25.06 kg/m2 W1 ([facility]) Body height 65 [in_i] 65 [in_i] eCW1 ([facility]) Body weight 150.6 [lb_av] 150.6 [lb_av] eCW1 ([facility]) Diastolic blood pressure 60 mm[Hg] 60 mm[Hg] [facility] ([facility] [employer]) Systolic blood pressure 106 mm[Hg] 106 mm[Hg] M [facility] ([facility] [employer]) Body temperature 36.8 shruthi Normal (applies to non-numeric results) 36.8 shruthi [facility] Respiratory rate 16 min Normal (applies to non-numeric results) 16 min [facility] Deprecated Oxygen saturation in Capillary blood by Oximetry 100 % Normal (applies to non-numeric results) 100 % [facility] Heart rate 99 min Normal (applies to non-numeric resul ts) 99 min [facility] Diastolic blood pressure 91 mm[Hg] Normal (applies to non-numeric results) 91 mm[Hg] [facility] Systolic blood pressure 140 mm[Hg] Normal (applies t o non-numeric results) 140 mm[Hg] [facility] Body mass index (BMI) [Ratio] 24.3 kg/m2 No rmal (applies to non-numeric results) 24.3 kg/m2 [facility] Body weight Measured 142 [lb_av] Normal (applies to n on-numeric results) 142 [lb_av] [facility] Body height 162.1536 cm Normal (applies to non-numeric res ults) 162.1536 cm [facility] Diastolic blood pressure 58 mm[Hg] 58 mm[Hg] eCW1 ([facility]) Systolic blood pressure 96 mm[Hg] 96 mm[Hg] e CW1 ([facility]) Body temperature 96.8 [degF] 96.8 [degF] eCW1 ( [facility]) Respiratory rate 18 /min 18 /min eCW1 ([facility]) Heart rate 104 /min 104 /min eCW1 ([facility]) Body mass index (BMI) [Ratio] 25.62 kg/m2 25.62 kg/m2 W1 ([facility]) Body height 65 [in_i] 65 [in_i] eCW1 ([facility]) Body weight 154 [lb_av] 154 [lb_av] eCW1 ([facility]) Oxygen saturation in Arterial blood by Pulse oximetry 98 % 98 % [facility] ([facility]) Body mass index (BMI) [Ratio] 28.2 kg/m2 28.2 k g/m2 [facility] ([facility]) Body weight 172.38 [lb_av] 172.38 [lb_av] MEDEN T ([facility]) Body height 65.5 [in_i] 65.5 [in_i] [facility] ([facility]) 5'5.50" Heart rate 112 /min 112 /min [facility] ([facility]) Diastolic blood pressure 62 mm[Hg] 62 mm[Hg] [facility] ([facility]) Systolic blood pressure 110 mm[Hg] 110 mm[Hg] M EDENT ([facility]) Oxygen saturation in Arterial blood by Pulse oximetry 96 % 96 % [facility] ([facility]) Body mass index (BMI) [Ratio] 28.4 kg/m2 28.4 k g/m2 [facility] ([facility]) Body weight 173.38 [lb_av] 173.38 [lb_av] MEDEN T ([facility]) Body height 65.5 [in_i] 65.5 [in_i] [facility] ([facility]) 5'5.50" Heart rate 103 /min 103 /min [facility] ([facility]) Diastolic blood pressure 68 mm[Hg] 68 mm[Hg] [facility] ([facility]) Systolic blood pressure 110 mm[Hg] 110 mm[Hg] M EDENT ([facility]) Diastolic blood pressure 78 mm[Hg] 78 mm[Hg] eCW1 ([facility]) Systolic blood pressure 122 mm[Hg] 122 mm[Hg] e CW1 ([facility]) Body temperature 99.3 [degF] 99.3 [degF] eCW1 ( [facility]) Heart rate 104 /min 104 /min eCW1 ([facility]) Body mass index (BMI) [Ratio] 29.62 kg/m2 29.62 kg/m2 eCW1 ([facility]) Body height 65 [in_us] 65 [in_us] eCW1 ([facility]) Body weight Measured 178 [lb_av] 178 [lb_av] eC W1 ([facility]) Diastolic blood pressure 68 mm[Hg] 68 mm[Hg] [facility] ([facility] [employer]) Systolic blood pressure 108 mm[Hg] 108 mm[Hg] M [facility] ([facility] [employer]) Diastolic blood pressure 72 mm[Hg] 72 mm[Hg] [facility] ([facility] [employer]) Systolic blood pressure 112 mm[Hg] 112 mm[Hg] M [facility] ([facility] [employer]) Diastolic blood pressure 62 mm[Hg] 62 mm[Hg] eCW1 ([facility]) Systolic blood pressure 118 mm[Hg] 118 mm[Hg] e CW1 ([facility]) Body temperature 97 [degF] 97 [degF] eCW1 ([facility]) Respiratory rate 18 /min 18 /min eCW1 ([facility]) Heart rate 110 /min 110 /min eCW1 ([facility]) Body mass index (BMI) [Ratio] 28.95 kg/m2 28.95 kg/m2 eCW1 ([facility]) Body height 65 [in_us] 65 [in_us] eCW1 ([facility]) Body weight Measured 174 [lb_av] 174 [lb_av] eC W1 ([facility]) Diastolic blood pressure 64 mm[Hg] 64 mm[Hg] [facility] ([facility] [employer]) Systolic blood pressure 116 mm[Hg] 116 mm[Hg] M ED[facility] ([facility] [employer]) Diastolic blood pressure 70 mm[Hg] 70 mm[Hg] eCW1 ([facility]) Systolic blood pressure 120 mm[Hg] 120 mm[Hg] e CW1 ([facility]) Body temperature 97.7 [degF] 97.7 [degF] eCW1 ( [facility]) Respiratory rate 18 /min 18 /min eCW1 ([facility]) Heart rate 101 /min 101 /min eCW1 ([facility]) Body mass index (BMI) [Ratio] 27.95 kg/m2 27.95 kg/m2 eCW1 ([facility]) Body height 65 [in_us] 65 [in_us] eCW1 ([facility]) Body weight Measured 168 [lb_av] 168 [lb_av] eC W1 ([facility]) Diastolic blood pressure 70 mm[Hg] 70 mm[Hg] [facility] ([place] [employer]) Systolic blood pressure 100 mm[Hg] 100 mm[Hg] M [facility] ([facility] [employer]) ID Date Data Source [id number] 03/30/2020 01:33:45 AM [facility] Name Value Range Interpretation Code Description Data Source(s) Body height Measured 64.5 in 64.5 in [facility] ID Date Data Source [id number] [facility] Name Value Range Interpretation Code Description Data Source(s) TRANSFER FROM [facility] ID Date Data Source [id number] 01/28/2020 07:27:[facility] Name Value Range Interpretation Code Description Data Source(s) WEIGHT RECORDED 140 lb 140 lb Health system Body height Measured 67.99 in 67.99 in [facility] ID Date Data Source [id number] 01/16/2020 01:09:59 AM [facility] Value Range Interpretation Code Description Data Source(s) Body height Measured 67.99 in 67.99 in [facility] WEIGHT RECORDED 180.56 lb 180.56 lb Health system ID Date Data Source [id number] 01/18/2020 08:29:15 AM [facility] Name Value Range Interpretation Code Description Data Source(s) WEIGHT RECORDED 159.2 lb 159.2 lb Health system ID Date Data Source [id number] 11/06/2019 12:13:11 AM [facility] Name Value Range Interpretation Code Description Data Source(s) WEIGHT RECORDED 160 lb 160 lb Health system Body height Measured 64.5 in 64.5 in [facility] ID Date Data Source [id number] 08/08/2019 07:00:[facility] Name Value Range Interpretation Code Description Data Source(s) WEIGHT RECORDED 170 lb 170 lb Health system ID Date Data Source [id number] 04/25/2019 10:48:52 PM [facility] Name Value Range Interpretation Code Description Data Source(s) WEIGHT RECORDED 170.6 lb 170.6 lb Health system Patient Treatment Plan of Care Planned Activity Planned Date Details Description Data Source (s) lamotrigine 200 MG Oral Tablet 03/18/2020 12:00:00 AM [facility] Levetiracetam 750 MG Oral Tablet 03/18/2020 12:00:00 AM [facility] POLYETHYLENE GLYCOL 3350 142 MG/ML Oral Solution 02/21/2020 12:00:0 0 AM [facility] Acetaminophen 325 MG / Oxycodone Hydrochloride 5 MG Or al Tablet 02/20/2020 12:00:00 AM [facility] NITROFURANTOIN, MACROCRYSTALS 25 MG / Ni trofurantoin, Monohydrate 75 MG Oral Capsule 02/20/2020 12:00:00 AM [facility] Acetaminophen 325 MG / Hydrocodone Bitartrate 5 MG Ora l Tablet 02/14/2020 12:00:00 AM [facility]spital Magnesium Hydroxide 80 MG/ML Oral Suspension 01/13/2020 10:00:00 PM [facility] Bisacodyl 10 MG Rectal Suppository 01/13/2020 07:45:55 AM [facility] sennoside, FPC 8.6 MG Oral Tablet 01/13/2020 07:45:55 AM [facility], FPC 35.2 MG/ML Oral Solution 01/13/2020 07:45:55 AM [facility] ondansetron (ZOFRAN) 4 MG/2ML injection 01/11/2020 08:06:55 PM [facility] Levothyroxine Sodium 0.2 MG Oral Tablet [Synthroid] 10/07/19 12:00:00 AM [facility] Levetiracetam 750 MG Oral Tablet 08/07/2019 12:00:00 AM [facility] lamotrigine 200 MG Oral Tablet 08/07/2019 12:00:00 AM [facility] Levothyroxine Sodium 0.175 MG Oral Tablet 05/30/2019 12:00:00 AM SARAH [facility] eCW1 ([facility]) Levothyroxine Sodium 0.15 MG Oral Tablet 03/26/2019 12:00:00 AM EST eCW1 ([facility]) Levetiracetam 750 MG Oral Tablet 10/08/2018 12:00:00 AM [facility] lamotrigine 200 MG Oral Tablet 10/08/2018 12:00:00 AM [facility] gabapentin 100 MG Oral Capsule [facility] Amitriptyline Hydrochloride 25 MG Oral Tablet [facility] Levetiracetam 750 MG Oral Tablet [facility] lamotrigine 200 MG Oral Tablet [facility] Levothyroxine Sodium 0.112 MG Oral Tablet [facility]
[2020-04-29 22:09] LABS: HCG, SERUM QUALITATIVE NEGATIVE (NEGATIVE)
[2020-04-29 22:22] LABS: ALBUMIN 4.3 GM/DL (3.2-5.2); ALT/SGPT 18 U/L (12-78); BILIRUBIN,DIRECT < 0.1 MG/DL (0.0-0.2); BILIRUBIN,TOTAL 0.2 MG/DL (0.2-1.0); BLOOD UREA NITROGEN 14 MG/DL (7-18); CALCIUM LEVEL 9.2 MG/DL (8.5-10.1); CARBON DIOXIDE LEVEL 23 MEQ/L (21-32); CHLORIDE LEVEL 108 MEQ/L (98-107); CK-MB VALUE MASS < 1.0 NG/ML (<3.6); CPK CREATINE PHOSPHOKINASE 60 U/L (26-192); GLOMERULAR FILTRATION RATE > 60.0 (>60); GLUCOSE, FASTING 97 MG/DL (70-100); LIPASE 1482 U/L (73-393); MB/CK RELATIVE INDEX 1.67 (< OR =4); POTASSIUM SERUM 3.8 MEQ/L (3.5-5.1); SODIUM LEVEL 140 MEQ/L (136-145); TOTAL PROTEIN 7.7 GM/DL (6.4-8.2); TROPONIN I < 0.02 NG/ML (< 0.10)
[2020-04-29] MEDS ORDERED: NS 1,000 ML IV ONE (23:00)
[2020-04-29] MEDS ORDERED: MORPHINE 4 MG/ML 1ML VIAL/SYRINGE (J2270) IV ONE (23:00)
[2020-04-30] MEDS ORDERED: MORPHINE 4 MG/ML 1ML VIAL/SYRINGE (J2270) IV ONE ×2 (00:45)
[2020-04-30] MEDS ORDERED: ONDANSETRON 4MG/2ML VIAL IV ONE (01:00)
[2020-04-30] MEDS ORDERED: GI COCKTAIL 50ML BTL(HYOSCYAMINE/MAALOX/LIDOCAINE VISCOUS)(1:3:1) PO ONE (01:00)
[2020-04-30] MEDS ORDERED: PANTOPRAZOLE 40MG VIAL (C9113 PER 1) IV ONE (01:00)
[2020-04-30] MEDS ORDERED: RA M10TA PO (02:47)
[2020-04-30] MEDS ORDERED: ALBU83IN INH (02:47)
[2020-04-30] MEDS ORDERED: IBUP-1720 PO (02:47)
[2020-04-30] MEDS ORDERED: MIRA1POW3 PO (02:48)
--- OUTSIDE RECORDS SUMMARY | 2020-04-30 03:47 | CCD ---
Author Author [facility] Organization [facility] Address Unknown Phone Unavailable Care Team Providers Care Veterinary Pharmacologist Name Role Phone Nargis Shane Unavailable PROBLEMS Type Condition ICD9-CM Code [id number] Code Onset Dates Condition S tatus SNOMED Code Notes Problem Hypothyroidism, unspecified type E03.9 Active 36185962 Problem Allergic rhinitis, unspecified seasonality, unspecifie d trigger J30.9 Active 08228265 Problem Hypoglycemia E16.2 Active 743071106 Problem Seizure disorder G40.909 Active 942272066 Problem History of hodgkin's lymphoma Z85.71 Active 47 8629115 Problem Decreased hearing of both ears H91.93 Active 1 43909225 Problem Asthma, unspecified asthma s everity, unspecified whether complicated, unspecified whether persistent J45.909 Active 51878 7001 Problem Interstitial cystitis N30.10 Active 795421250 Problem Raynaud's phenomenon without gangrene I73.00 Ac tive 376811984 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 065590855 Problem Excessive daytime sleepiness G47.19 Active 141 109557108 ALLERGIES Allergen (clinical drug ingredient) Drug/Non Drug Allergy do cumented on EMR Reaction Allergy Type Onset Date Status CT dye, contrast Anaphylaxis Non Drug Allergy A ctive latex Anaphylaxis Non Drug Allergy Active fentanyl Fentanyl([facility] Code:[address]-79) seizures Drug Allergy Active ENCOUNTERS from 1989 to 2020-04-28 Encounter Location Date Provider Diagnosis [address] [address] Apr, Nargis Shane IMMUNIZATIONS No Information SOCIAL HISTORY Tobacco Use: Social History Observation Description Date Details (start date - stop date) Never Smoker Sex Assigned At : Social History Observation Description Sex Assigned At Unknown Education: Question Answer Notes Level of Education: High School Audit Question Answer Notes Total Score: 0 Interpretation: Alcohol Education Language: Question Answer Notes Languages spoken: Chinese Mandaen: Question Answer Notes Mandaen 99 Other [employer] Domestic Violence: Question Answer Notes Status: Single [...] (J45.909) every 6 hours as needed (Medicaid ID:[id number]) Sep, Active Keppra 750 MG 1 tablet Orally Twice a day Active Full Kit Nebulizer Set - as directed orally J45.909 e very 6 hours as needed (Medicaid ID:[id number]) for 30 Days Sep, Active Ibuprofen 600 [...] Information RESULTS No Results REASON FOR VISIT ER Visit [facility] 04/27; SOB MEDICAL (GENERAL) HISTORY Type Description Date Medical [...] Hypoglycemia per pt. (previously followe d at [facility]) Medical History Diverticulosis noted on CT [...] central venous access device with subcutaneous port [id number] Surgical History adnoids removed child Surgical History bone marrow transplant 2014 Hospitalization History cancer dx 2010 Hospitalization History bone marrow transplant 2014 Hospitalization History seizure x 2 times 12/2018 Hospitalization History seizure x1 07/29/2019 Hospitalization History [facility] seizure and stopped breathin g 01/2020 Hospitalization History partioal hystorectomy 01/2020 Goals Section No Information Health Concerns No Information MEDICAL EQUIPMENT No Information MENTAL STATUS No Information FUNCTIONAL STATUS No Information ASSESSMENTS No Information PLAN OF TREATMENT Medication Medication Name Sig [...] Sep, Next Appt Details Provider Name:Nargis Shane, 2020-05-12 11:15:00 AM, [address] [place], [address], Provider Name:Nargis Shane, 2020-09-24 10:30:00 AM, [address] [place], [address], Insurance Providers Payer Name Payer Address Payer Phone Insured Name Patient Relati onship to Insured Coverage Start Date Coverage End Date MEDICAID [employer] [address] [facility] [id number] [place] self
--- OUTSIDE RECORDS SUMMARY | 2020-04-30 03:49 | CCD ---
Author Author [facility] Organization [facility] Address Unknown Phone Unavailable Care Team Providers Care Digital Marketing Officer Name Role Phone Palak Seymour MD Unavailable [...] MD Unavailable Unavailable JOSE, ABILIO ROSA MARIA CLIENT LIAISON-C Unavailable Unavailable JOSE, ABILIO ROSA MARIA CLIENT LIAISON-C Unavailable Unavailable JOSE, ABILIO ROSA MARIA CLIENT LIAISON-C Unavailable Unavailable JOSE, ABILIO ROSA MARIA CLIENT LIAISON-C Unavailable Unavailable JOSE, ABILIO ROSA MARIA CLIENT LIAISON-C Unavailable Unavailable JOSE, ABILIO ROSA MARIA CLIENT LIAISON-C Unavailable Unavailable JOSE, ABILIO ROSA MARIA CLIENT LIAISON-C Unavailable Unavailable JOSE, ABILIO ROSA MARIA CLIENT LIAISON-C Unavailable Unavailable JOSE, ABILIO ROSA MARIA CLIENT LIAISON-C Unavailable Unavailable JOSE, ABILIO ROSA MARIA CLIENT LIAISON-C Unavailable Unavailable JOSE, ABILIO ROSA MARIA CLIENT LIAISON-C Unavailable Unavailable JOSE, ABILIO ROSA MARIA CLIENT LIAISON-C Unavailable Unavailable JOSE, ABILIO ROSA MARIA CLIENT LIAISON-C Unavailable Unavailable JOSE, ABILIO ROSA MARIA CLIENT LIAISON-C Unavailable Unavailable JOSE, ABILIO ROSA MARIA CLIENT LIAISON-C Unavailable Unavailable [place], Artis Dyer PA-C Unavailable Unavailable [place], M Manisha PA-C Unavailable Unavailable [place], M Manisha PA-C Unavailable Unavailable COOK, B BOO MILLWRIGHT HELPER Unavailable Unavailable COOK, B BOO MILLWRIGHT HELPER Unavailable Unavailable COOK, B BOO MILLWRIGHT HELPER Unavailable Unavailable COOK, B BOO MILLWRIGHT HELPER Unavailable Unavailable COOK, B BOO MILLWRIGHT HELPER Unavailable Unavailable COOK, B BOO MILLWRIGHT HELPER Unavailable Unavailable COOK, B BOO MILLWRIGHT HELPER Unavailable Unavailable COOK, B BOO MILLWRIGHT HELPER Unavailable Unavailable COOK, B BOO MILLWRIGHT HELPER Unavailable Unavailable COOK, B BOO MILLWRIGHT HELPER Unavailable Unavailable COOK, B BOO MILLWRIGHT HELPER Unavailable Unavailable COOK, B BOO MILLWRIGHT HELPER Unavailable Unavailable COOK, B BOO MILLWRIGHT HELPER Unavailable Unavailable COOK, B BOO MILLWRIGHT HELPER Unavailable Unavailable COOK, B BOO MILLWRIGHT HELPER Unavailable Unavailable COOK, B BOO MILLWRIGHT HELPER Unavailable Unavailable COOK, B BOO MILLWRIGHT HELPER Unavailable Unavailable COOK, B BOO MILLWRIGHT HELPER Unavailable Unavailable COOK, B BOO MILLWRIGHT HELPER Unavailable Unavailable COOK, B BOO MILLWRIGHT HELPER Unavailable Unavailable COOK, B BOO MILLWRIGHT HELPER Unavailable Unavailable COOK, B BOO MILLWRIGHT HELPER Unavailable Unavailable COOK, B BOO MILLWRIGHT HELPER Unavailable Unavailable COOK, B BOO MILLWRIGHT HELPER Unavailable Unavailable COOK, B BOO MILLWRIGHT HELPER Unavailable Unavailable COOK, B BOO MILLWRIGHT HELPER Unavailable Unavailable COOK, B BOO MILLWRIGHT HELPER Unavailable Unavailable COOK, B BOO MILLWRIGHT HELPER Unavailable Unavailable COOK, B BOO MILLWRIGHT HELPER Unavailable Unavailable COOK, B BOO MILLWRIGHT HELPER Unavailable Unavailable COOK, B BOO MILLWRIGHT HELPER Unavailable Unavailable COOK, B BOO MILLWRIGHT HELPER Unavailable Unavailable COOK, B BOO MILLWRIGHT HELPER Unavailable Unavailable COOK, B BOO MILLWRIGHT HELPER Unavailable Unavailable COOK, B BOO MILLWRIGHT HELPER Unavailable Unavailable COOK, B BOO MILLWRIGHT HELPER Unavailable Unavailable COOK, B BOO MILLWRIGHT HELPER Unavailable Unavailable COOK, B BOO MILLWRIGHT HELPER Unavailable Unavailable COOK, B BOO MILLWRIGHT HELPER Unavailable Unavailable COOK, B BOO MILLWRIGHT HELPER Unavailable Unavailable COOK, B BOO MILLWRIGHT HELPER Unavailable Unavailable COOK, B BOO MILLWRIGHT HELPER Unavailable Unavailable COOK, B BOO MILLWRIGHT HELPER Unavailable Unavailable COOK, B BOO MILLWRIGHT HELPER Unavailable Unavailable COOK, B BOO MILLWRIGHT HELPER Unavailable Unavailable COOK, B BOO MILLWRIGHT HELPER Unavailable Unavailable COOK, B BOO MILLWRIGHT HELPER Unavailable Unavailable COOK, B BOO MILLWRIGHT HELPER Unavailable Unavailable COOK, B BOO MILLWRIGHT HELPER Unavailable Unavailable COOK, B BOO MILLWRIGHT HELPER Unavailable Unavailable COOK, B BOO MILLWRIGHT HELPER Unavailable Unavailable COOK, B BOO MILLWRIGHT HELPER Unavailable Unavailable COOK, B BOO MILLWRIGHT HELPER Unavailable Unavailable COOK, B BOO MILLWRIGHT HELPER Unavailable Unavailable COOK, B BOO MILLWRIGHT HELPER Unavailable Unavailable COOK, B BOO MILLWRIGHT HELPER Unavailable Unavailable COOK, B BOO MILLWRIGHT HELPER Unavailable Unavailable COOK, B BOO MILLWRIGHT HELPER Unavailable Unavailable COOK, B BOO MILLWRIGHT HELPER Unavailable Unavailable COOK, B BOO MILLWRIGHT HELPER Unavailable Unavailable COOK, B BOO MILLWRIGHT HELPER Unavailable Unavailable COOK, B BOO MILLWRIGHT HELPER Unavailable Unavailable COOK, B BOO MILLWRIGHT HELPER Unavailable Unavailable IGOR, M CASTRO MILLWRIGHT HELPER Unavailable Unavailable IGOR, M CASTRO MILLWRIGHT HELPER Unavailable Unavailable IGOR, M CASTRO MILLWRIGHT HELPER Unavailable Unavailable IGOR, M CASTRO MILLWRIGHT HELPER Unavailable Unavailable IGOR, M CASTRO MILLWRIGHT HELPER Unavailable Unavailable IGOR, M CASTRO MILLWRIGHT HELPER Unavailable Unavailable IGOR, M CASTRO MILLWRIGHT HELPER Unavailable Unavailable IGOR, M CASTRO MILLWRIGHT HELPER Unavailable Unavailable IGOR, M CASTRO MILLWRIGHT HELPER Unavailable Unavailable IGOR, M CASTRO MILLWRIGHT HELPER Unavailable Unavailable IGOR, M CASTRO MILLWRIGHT HELPER Unavailable Unavailable IGOR, M CASTRO MILLWRIGHT HELPER Unavailable Unavailable IGOR, M CASTRO MILLWRIGHT HELPER Unavailable Unavailable IGOR, M CASTRO MILLWRIGHT HELPER Unavailable Unavailable IGOR, M CASTRO MILLWRIGHT HELPER Unavailable Unavailable IGOR, M CASTRO MILLWRIGHT HELPER Unavailable Unavailable IGOR, M CASTRO MILLWRIGHT HELPER Unavailable Unavailable IGOR, M CASTRO MILLWRIGHT HELPER Unavailable Unavailable IGOR, M CASTRO MILLWRIGHT HELPER Unavailable Unavailable IGOR, M CASTRO MILLWRIGHT HELPER Unavailable Unavailable IGOR, M CASTRO MILLWRIGHT HELPER Unavailable Unavailable IGOR, M CASTRO MILLWRIGHT HELPER Unavailable Unavailable IGOR, M CASTRO MILLWRIGHT HELPER Unavailable Unavailable IGOR, M CASTRO MILLWRIGHT HELPER Unavailable Unavailable IGOR, M CASTRO MILLWRIGHT HELPER Unavailable Unavailable IGOR, M CASTRO MILLWRIGHT HELPER Unavailable Unavailable IGOR, M CASTRO MILLWRIGHT HELPER Unavailable Unavailable IGOR, M CASTRO MILLWRIGHT HELPER Unavailable Unavailable IGOR, M CASTRO MILLWRIGHT HELPER Unavailable Unavailable IGOR, M CASTRO MILLWRIGHT HELPER Unavailable Unavailable IGOR, M CASTRO MILLWRIGHT HELPER Unavailable Unavailable IGOR, M CASTRO MILLWRIGHT HELPER Unavailable Unavailable Quezada, Xiangping Unavailable Unavailable Quezada, Xiangping Unavailable Unavailable Quezada, Xiangping Unavailable Unavailable Quezada, Xiangping Unavailable Unavailable Quezada, Xiangping Unavailable Unavailable Quezada, Xiangping Unavailable Unavailable Quezada, Xiangping Unavailable Unavailable Quezada, Xiangping Unavailable Unavailable Quezada, Xiangping Unavailable Unavailable Quezada, Xiangping Unavailable Unavailable Qeuzada, Xiangping Unavailable Unavailable Quezada, Xiangping Unavailable Unavailable [...] L ELODIA ARENAS Unavailable Unavailable BAKER, L EOLDIA ARENAS Unavailable Unavailable BAKER, L ELODIA ARENAS [...] E Nargis MD Unavailable Unavailable Skipton, E Nagris MD Unavailable Unavailable Skipton, E Nargis MD [...] is protected by Article 27-F of the [facility] Public Health law. If you continue you may have access to information: Regarding HIV / AIDS; Provided by facilities licensed or operated by the [facility] Office of Mental Health; or Provided by the [facility] Office for People With Developmental Disabilities. If such information is present, then the following [facility] mandated warning applies: This information [...] law may result in a fine or retirement sentence or both. A general authorization for the release of medical or other information is NOT sufficient authorization for further disc losure. Allergies and Adverse Reactions Type Description Substance Reaction Status Data Source(s ) No Known Food Allergies No Known Food Allergies [facility] Drug allergy NOSE SPRAY NOSE SPRAY [facility] Drug allergy CT CONTRAST CT CONTRAST ANAPHYLAXIS [facility] CLASS CONTRAST MEDIA, IODINE RELATED CONTRAST MEDIA, I ODINE RELATED ANAPHYLAXIS [facility] BRANDNAME FENTANYL TRANSDERMAL SYSTEM FENTANYL TRANSDERMAL SYSTEM HI VES [facility] ENVIRONMENTAL LATEX LATEX [facility] Drug Class NO KNOWN ALLERGIES NO KNOWN ALLERGIES [facility] Drug allergy Fentanyl Fentanyl seizures Active eCW1 ([facility]) CT dye, contrast CT dye, contrast CT dye, contrast Anaphylaxis Acti ve [facility] latex latex latex Anaphylaxis Active eCW1 ([facility]) latex latex latex Anaphylaxis Active eCW1 ([facility]) CT dye, contrast CT dye, contrast CT dye, contrast Anaphylaxis Acti ve [facility] CT dye, contrast CT dye, contrast CT dye, contrast Anaphylaxis Acti ve eCW1 [facility]) latex latex latex Anaphylaxis Active eCW1 ([facility]) Family History Family Member Name Family Member Gender Family Member Status Date o f Status Description Data Source(s) Unknown Female Problem MEDENT ([facility]) Encounters Encounter Providers Location Date Indications Data Source(s ) Outpatient Attender: NOELLE FONTENOT MD 01/11/2021 12:00:00 AM [facility] Unknown [address] [facility] [address] 04/28/2020 12:00:00 AM EST eCW1 ([facility]) Outpatient Attender: NOELLE FONTENOT MD 04/27/2020 12:00:00 AM [facility] Unknown [address] [facility] [address] 04/20/2020 12:00:00 AM EST eCW1 ([facility]) Outpatient [address] [facility] [facility] [address] 03/26/2020 12:00:00 AM EST eCW1 ([facility]) Outpatient Attender: Mariano Quezada [id number] 12:00:00 AM EST - 03/18/2020 08:34:34 AM EST 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, not intractable, without status epilepticus [facility] 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, not intractable, without status epilepticus Outpatient Attender: ROSA MARIA Kaye/Sindhu/Ron/Juwan hassan 03/03/2020 12:15:00 PM EST MEDENT ([facility]) Office Visit Attender: ELODIA Rivera Woman cobbler mckay 02/2020 09:00:00 AM EST [facility] (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) Outpatient [address] [facility] [address] 02/25/2020 12:00:00 AM EST eCW1 ([facility]) Office Visit Attender: ELODIA Rivera Woman cobbler mckay 07/2019 02:00:00 PM EST [facility] (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 Unknown [address] [facility] [address] 02/19/2020 12:00:00 AM EST eCW1 ([facility]) Outpatient Attender: ELODIA Rivera Woman cobbler mckay 11:15:00 AM EDT [facility] (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) Emergency Attender: JESSEE MARKAttender: ER PHYSICIAN 01/29/2020 01:38:00 PM EDT - 01/29/2020 06:59:00 PM EDT ABDOMINAL PAIN AND SEIZURES [facility] ABDOMINAL PAIN AND SEIZURES Patient discharged. Outpatient Referrer: VAMSI NOVOA MD 01/29/2020 10: 36:00 AM EDT seizure disorder [facility] seizure disorder Emergency Attender: MANUELITO CARVAJALConsultant: Nargis marte MD 01/29/2020 06:03:00 AM EDT - 01/29/2020 11:59:00 AM EDT [facility] Patient discharged. Outpatient Attender: Manisha Conrad PA-C CMP Internal Med a t [place] 01/29/2020 03:53:00 AM EDT MEDENT ([facility]) Outpatient Attender: Mariano Quezada [id number] 020 12:00:00 AM EDT - 01/28/2020 12:03:03 PM T [facility] Unknown [address] [facility] [address] 01/24/2020 12:00:00 AM EDT eCW1 ([facility]) Outpatient [address] [facility] [facility] [address] 01/20/2020 12:00:00 AM EDT eCW1 ([facility]) Unknown [address] [facility] [address] 01/15/2020 12:00:00 AM EDT eCW1 ([facility]) Inpatient Attender: RACH POWELL MDAttender: Sandoval Seymour MDAdmitter: Sandoval Gene Dawn MDReferrer: Sandoval Seymour MDConsultant: Sandoval Seymour MD [id number] 01/11/2020 12:00:00 AM EDT - 01/14/2020 12:10:00 PM EDT Epilepsy, unspecified, not intractable, with status ep ilepticus [facility] Epilepsy, unspecified, not intractable, with status epilepticus Patient discharged. Outpatient Attender: NOELLE FONTENOT MD [id number] 12/17 12:00:00 AM EDT - 01/06/2020 10:20:34 AM EDT Hodgkin lymphoma, unspecified, unspecified site [facility] Hodgkin lymphoma, unspecified, unspecifi ed site Outpatient Referrer: GLEN NELSON MD [id number] 11/29/2019 02:0 3:00 AM EDT [facility] encephalitis Outpatient Attender: Mariano Quezada [id number] 020 12:00:00 AM EDT - 11/05/2019 01:01:40 PM EDT [address] [address] 09/26/2019 12:00:00 AM EDT [facility] [address] [address] 09/24/2019 12:00:00 AM EDT eCW1 ([facility]) Outpatient Attender: BOO HEAD NP Physical Therapy 09/11/2019 0 8:30:00 AM EDT MEDENT ([facility]) [address] [address] 09/03/2019 12:00:00 AM EDT eCW1 ([facility]) Outpatient Attender: BOO HEAD NP Physical Therapy 08/30/2019 1 0:45:00 AM EDT MEDENT ([facility]) [address] [address] 08/27/2019 12:00:00 AM EDT eCW1 ([facility]) [address] [address] 08/22/2019 12:00:00 AM EDT eCW1 ([facility] [address] [address] 08/20/2019 12:00:00 AM EDT eCW1 (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 [address] [address] 07/29/2019 12:00:00 AM EDT eCW1 ([facility] [address] [address] 07/29/2019 12:00:00 AM EDT eCW1 ([facility]) [address] [address] 07/29/2019 12:00:00 AM EDT eCW1 ([facility]) Outpatient Attender: ELODIA Rivera Woman cobbler mckay 01:00:00 PM EST [facility] (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) [address] [address] 06/04/2019 12:00:00 AM EST eCW1 ([facility] [address] [address] 06/03/2019 12:00:00 AM EST eCW1 ([facility] [address] [address] 05/30/2019 12:00:00 AM EST eCW1 ([facility] [address] [address] 05/30/2019 12:00:00 AM EST eCW1 ([facility]) [address] [address] 05/29/2019 12:00:00 AM EST eCW1 ([facility]) [address] [address] 05/21/2019 12:00:00 AM EST eCW1 ([facility]) Outpatient 04/26/2019 06:05:00 PM EST [facility] Emergency Attender: VAMSI NOVOA MDConsultant: Nargis hayward MD 04/26/2019 04:04:00 PM EST - 04/26/2019 07:47:00 PM EST [facility] Patient discharged. [address] [address] 04/26/2019 12:00:00 AM EST eCW1 ([facility]) [address] [address] 04/26/2019 12:00:00 AM EST eCW1 ([facility]) Outpatient Attender: ELODIA Rivera Woman cobbler mckay 11/2019 01:45:00 PM EST [facility] (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) [address] [address] 04/24/2019 12:00:00 AM EST eCW1 ([facility]) Outpatient Attender: NOELLE FONTENOT MD 04/24/2019 12:00:00 AM [facility] Outpatient Attender: NOELLE FONTENOT MD [id number] 09/2019 12:00:00 AM EST - 04/22/2019 03:02:39 PM EST Hodgkin lymphoma, unspecified, unspecified site [facility] Hodgkin lymphoma, unspecified, unspecifi ed site [address] [address] 03/26/2019 12:00:00 AM EST eCW1 ([facility]) [facility] [address] [facility] [facility], [facility] [address] 03/25/2019 12:00:00 AM EST eCW1 ([facility]) Outpatient Attender: CASTRO COSTA NP [facility] 08/2018 08:15:00 AM EST [facility] (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) Outpatient Attender: ELODIA BAKER MD [facility] 10:45:00 AM EST [facility] (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) Immunizations Vaccine Date Status Description Data Source(s) New in 2011. IIV4 04/01/2020 12:40:00 PM EST completed MEDENT ([facility] ) Medications Medication Brand Name Start Date Product Form Dose Route Admi nistrative Instructions Pharmacy Instructions Status Indications Reaction Description Data Source(s) Levetiracetam 750 MG Oral Tablet levETIRAcetam 750 MG Oral Tablet (KEPPRA) levETIRAcetam 750 MG Oral Tablet (KEPPRA) 03/18/2020 12:00:00 AM EST 750 mg Oral active Take 1 tablet by tata th Two Times Daily [facility] lamotrigine 200 MG Oral Tablet lamoTRIgine 200 MG Oral Tablet (LaMICtal) lamoTRIgine 200 MG Oral Tablet (LaMICtal) 03/18/2020 12:00:00 AM EST 200 mg Oral active Nonintractable g eneralized idiopathic epilepsy without status epilepticus Take 1 tablet by mouth Two Times Daily [facility] Nonintractable generalized idiopathic ep ilepsy without status epilepticus POLYETHYLENE GLYCOL 3350 142 MG/ML Oral Solution Polyethylene Glycol 3350 17 GM/SCOOP Oral Powder (GLYCOLAX) Polyethylene Glycol 3350 17 GM/SCOOP Ora l Powder (GLYCOLAX) 02/21/2020 12:00:00 AM EST active MIX 17 GRAMS IN 8 OUNCES OF WATER OR JUICE AND TK PO D PRN FOR CONSTIPATION [facility] Acetaminophen 325 MG / Oxycodone Hydroch loride 5 MG Oral Tablet oxyCODONE- Acetaminophen 5-325 MG Oral Tablet (PERCOCET) oxyCODONE-Acetaminophen 5-325 MG Oral Tablet (PERCOCET) 02/20/2020 12:00:00 AM EST active TK 2 TS PO Q 4 H PRF PAIN. MDD 6 [facility] NITROFURANTOIN, MACROCRYSTALS 25 MG / Ni trofurantoin, Monohydrate 75 MG Oral Capsule Nitrofurantoin Monohyd Macro 100 MG Oral Capsule (MACROBID) Nitrofurantoin Monohyd Macro 100 MG Oral Capsule (MACROBID) 02/20/2020 12:00:00 AM EST active TK 1 C PO BID U[facility] celecoxib 200 MG Oral Capsule [Celebrex] Celebrex 02/19/2020 12 :00:00 AM EST ORAL active [facility] (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) Acetaminophen 325 MG / Oxycodone Hydrochloride 5 MG Or al Tablet [Percocet] Percocet 02/18/2020 12:00:00 AM EST ORAL active [facility] (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) Acetaminophen 325 MG / Hydrocodone Mounika trate 5 MG Oral Tablet HYDROcodone- Acetaminophen 5-325 MG Oral Tablet (LORTAB) HYDROcodone-Acetaminophen 5-325 MG Oral Tablet (LORTAB) 02/14/2020 12:00:00 AM EDT active TK 2 TS PO Q 4 H PRF PAIN. MDD [address] [place] [address] Acetaminophen 325 MG / Hydrocodone Bitartrate 5 MG Oral Tabl et [Blairs] Blairs 02/11/2020 12:00:00 AM EDT ORAL completed [facility] (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) Ibuprofen 600 MG Oral Tablet Ibuprofen 02/11/2020 12:00:00 AM EDT ORAL active [facility] (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) Magnesium Hydroxide 80 MG/ML Oral Suspen hsanna magnesium hydroxide (MILK OF MAGNESIA) 400 MG/5ML suspension 45 mL magnesium hydroxide (MILK OF MAGNESIA) 4 00 MG/5ML suspension 45 mL 01/13/2020 10:00:00 PM EDT 45 mL Oral active 45 mL, Oral, Nightly, First dose on Mon01/13/20 at 2200, For 30 days
If serum creatinine > 2 notify provider before administering.
[facility] Medication administered onsite Docusate Sodium 100 MG Oral Capsule docusate sodium (C OLACE) capsule 100 mg docusate sodium (COLACE) capsule 100 mg 01/13/2020 09:00:00 AM EDT 100 mg Oral active 100 mg, Oral, 2 Times Daily, First dose on 9/28/20 at 0900, For 30 days [facility] Medication administered onsite sennosides, HALF-WAY 8.6 MG Oral Tablet senna tablet 2 tablet sen na tablet 2 tablet 01/13/2020 07:45:55 AM EDT 2 {tbl} Oral active 2 tablet, Oral, Nightly PRN, Constipation, Starting 01/13/20 at 0745, For 30 days [facility] Medication administered onsite sennosides, HALF-WAY 35.2 MG/ML Oral Solution senna (SENOKO T) syrup 10 mL senna (SENOKOT) syrup 10 mL 01/13/2020 07:45:55 AM EDT 10 mL Oral active 10 mL, Oral, Nightly PRN, Constipation, Starting Mon01/13/20 at 0745, For 30 days [facility] Medication administered onsite Bisacodyl 10 MG Rectal Suppository bisacodyl (DULCOLAX ) suppository 10 mg bisacodyl (DULCOLAX) suppository 10 mg 01/13/2020 07:45:55 AM EDT 10 mg Rectal active 10 mg, Rectal, Every 72 hours PRN, Constipation, Starting Mon01/13/20 at 0745, For 30 days
Hold if patient has had BM within the past 2 days.
[facility] Medication administered onsite magnesium sulfate in dextrose 5 % infusion (premix) 1 g [id number] [id number] 01/13/2020 04:00:00 AM EDT 1 g Intravenous completed 1 g, Intravenous, Administer over 60 Minutes, Once, Mon01/13/20 at 0400, For 1 dose [facility] Medication administered onsite 2 ML Metoclopramide 5 MG/ML Prefilled Sy ringe metoclopramide (REGLAN) injection 10 mg metoclopramide (REGLAN) injection 10 mg 01/13/2020 04:00:00 AM E DT 10 mg Intravenous completed 10 mg, I ntravenous, Once, Mon01/13/20 at 0400, For 1 dose [facility] Medication administered onsite Loratadine 10 MG Oral Tablet loratadine (CLARITIN) tab let 10 mg loratadine (CLARITIN) tablet 10 mg 01/13/2020 04:00:00 AM EDT 10 mg Oral completed 10 mg, Oral, Once, Mon01/13/20 at 0400, For 1 dose [facility] Medication administered onsite Melatonin 5 MG Oral Tablet melatonin tablet 5 mg melatonin t ablet 5 mg 01/13/2020 02:30:00 AM EDT 5 mg Oral completed 5 mg, Oral, Once, Mon01/13/20 at 0230, For 1 dose [facility] Medication administered onsite Acetaminophen 10 MG/ML Injectable Soluti on acetaminophen (OFIRMEV) infusion 1,000 mg acetaminophen (OFIRMEV) infusion 1,000 mg 01/13/2020 01:45:00 AM EDT 1000 mg Intravenous completed 1,000 mg , Intravenous, Administer over 15 Minutes, Once, Mon01/13/20 at 0145, For 1 dose
Maximum dose 3 gm daily from all sources
[facility] Medication administered onsite Metoprolol Tartrate 25 MG Oral Tablet me toprolol tartrate (LOPRESSOR) tablet 25 mg metoprolol tartrate (LOPRESSOR) tablet 25 mg 01/13/2020 12:00:00 AM EDT 25 mg Oral completed 25 mg, Oral, Once, Mon01/13/20 at 0000, For 1 dose [facility] Medication administered onsite pantoprazole 40 MG Delayed Release Oral Tablet pantoprazole (PROTONIX) EC tablet 40 mg pantoprazole (PROTONIX) EC tablet 40 mg 01/12/2020 09:45:00 PM E DT 40 mg Oral active 40 mg, Ora l, Daily Standard, First dose on 01/12/20 at 2145, For 30 days
Do not crush or chew
[facility] Medication administered onsite alginic acid 200 MG / Calcium Carbonate 80 MG / magnesium trisilicate 20 MG / Sodium Bicarbonate 70 MG Oral Tablet calcium carbonate (TUMS) chewable tablet 500 mg calcium carbonate (TUMS) chewable tablet 500 mg 2019 09:37:32 PM EDT 500 mg Oral active 500 mg, Oral, Three Times Daily-PRN, Indigestion, Heartburn, Starting 01/12/20 at 2137, For 30 days [facility] Medication administered onsite Famotidine 8 MG/ML Oral Suspension famot idine (PEPCID) 40 MG/5ML oral suspension 20 mg famotidine (PEPCID) 40 MG/5ML oral suspension 20 mg 09:00:00 PM EDT 20 mg Oral active 20 mg, O ral, 2 Times Daily, First dose on 01/12/20 at 2100, For 30 days
Tablet order changed to suspension due to backorder on tablets
[facility] Medication administered onsite sodium chloride 0.9 % bolus 500 mL 01/12/2020 08:15:00 PM EDT 500 mL Intravenous completed 500 mL, Intravenous, Once, [place] 01/12/20 at 2015, For 1 dose [facility] Medication administered onsite 1 ML Ketorolac Tromethamine 15 MG/ML Car tridge ketorolac (TORADOL) 15 MG/ML injection 15 mg ketorolac (TORADOL) 15 MG/ML injection 15 mg 0 09:45:00 AM EDT 15 mg Intravenous completed 15 mg, Intravenous, Once, [place] 01/12/20 at 0945, For 1 dose [facility] Medication administered onsite 0.4 ML Enoxaparin [...] hours after epidural catheter has been removed.
[facility] Medication administered onsite sodium chloride 0.9 % bolus 1,000 mL 01/12/2020 05:45: 00 AM EDT 1000 mL Intravenous completed 1,000 mL , Intravenous, Once, [place] 01/12/20 at 0545, For 1 dose [facility] Medication administered onsite sodium chloride 0.9 % bolus 500 mL 01/12/2020 01:15:00 AM EDT 500 mL Intravenous completed 500 mL, Intravenous, Once, [place] 01/12/20 at 0115, For 1 dose [facility] Medication administered onsite sodium chloride 0.9 % bolus 500 mL 26/2020 10:45:00 PM EDT 500 mL Intravenous completed 500 mL, Intravenous, Once, 01/11/20 at 2245, For 1 dose [facility] Medication administered onsite Levetiracetam 100 MG/ML Oral Solution le vETIRAcetam (KEPPRA) 100 MG/ML oral solution 750 mg levETIRAcetam (KEPPRA) 100 MG/ML oral solution 750 mg 01/11/2020 09:00:00 PM EDT 750 mg Per NG tube active 750 mg, Per NG tube, 2 Times Daily, First dose on 01/11/20 at 2100, For 30 days [facility] Medication administered onsite ondansetron (ZOFRAN) injection [...] 2022, For 7 doses [Order 2 End] [facility] Medication administered onsite ondansetron (ZOFRAN) 4 MG/2ML injection [id number] 01/11/20 08:06:55 PM EDT completed Starting Sat at 2005, For 1 dose
Brayan SANCHEZ : cabinet override
[facility] Medication administered onsite Acetaminophen 32 MG/ML [...] mg from all sources in 24 hours.
[facility] Medication administered onsite propofol (DIPRIVAN) infusion 1,000 mg/100 mL [id number] 01/11/2020 01:45:00 PM EDT ug/kg/min Intravenous aborted 1 0-80 mcg/kg/min 81.9 kg (4.914-39.312 mL/hr, rounded to 4.9-39.3 mL/hr), Intravenous, at 4.9- 39.3 mL/hr, Continuous, Starting 01/11/20 at 1345, For 30 days
Starting dose = 10 mcg/kg/minTitrate to maintain RASS of -3 Increase by 5-10 mcg/kg/minMax Dose = 80 mcg/kg/min Titrate down if RASS of -3
[facility] Medication administered onsite dexmedetomidine (PRECEDEX) in NaCl 0.9 % infusion 4 mcg/mL 1 [id number] 01/11/2020 01:30:00 PM EDT ug/kg/h Intravenous aborted 0.1-1.5 mcg/kg/hr 81.9 kg (2.0475-30.7125 mL/hr, rounded to 2-30.7 mL/hr), Intravenous, at 2-30.7 mL/hr, Continuous, Starting 01/11/20 at 1330, For 30 days
Starting dose = 0.2 mcg/kg/hrTitrate to maintain RASS of -3 Titrate by 0.1-0.2 mcg/kg/hrMax Dose = 1.5 mcg/kg/hr Titrate down if RASS of -3
[facility] Medication administered onsite NaCl infusion 0.9 % [id number] 01/11/2020 12:45:00 PM EDT Intravenous aborted at 100 mL/hr, Intrav enous, Continuous, Starting 01/11/20 at 1245, For 30 days [facility] Medication administered onsite lamotrigine 100 MG Oral Tablet lamoTRIgine (LaMICtal) tablet 200 mg lamoTRIgine (LaMICtal) tablet 200 mg 01/11/2020 11:45:00 AM EDT 200 mg Oral active 200 mg, Oral, 2 Times Daily, First dose (after last reorder) on 01/11/20 at 1145, For 30 days [facility] Medication administered onsite Levetiracetam 750 MG Oral Tablet levETIRAcetam (KEPPRA ) tablet 750 mg levETIRAcetam (KEPPRA) tablet 750 mg 01/11/2020 10:30:00 AM EDT 750 m g Oral aborted 750 mg, Oral, 2 Times Daily, First dose on 01/11/20 at 1030, For 30 days [facility] Medication administered onsite propofol (DIPRIVAN) infusion 200 mg/20 mL [id number] 01/11/2020 09:00:00 AM EDT ug/kg/min Intravenous completed 10-80 mcg/kg/min 81.9 kg (4.914-39.312 mL/hr, rounded to 4.9-39.3 mL/hr), Intravenous, at 4.9- 39.3 mL/hr, Once, 01/11/20 at 0900, For 1 dose
Starting dose = 10 mcg/kg/minTitrate to maintain RASS of -2 Increase by 5-10 mcg/kg/minMax Dose = 80 mcg/kg/min Titrate down if RASS of 0
[facility] Medication administered onsite Levothyroxine Sodium 0.2 MG Oral Tablet [Synthroid] Synthroid 200 MCG Oral Tablet Synthroid 200 MCG Oral Tablet 10/07/2019 12:00:00 AM EDT 200 ug Oral aborted Take 200 mcg by mouth daily [facility] Levothyroxine Sodium 0.2 MG Oral Tablet [Synthroid] Synthroi d 09/11/2019 12:00:00 AM EDT ORAL active M [facility]ENT ([facility]) Levetiracetam 750 MG Oral Tablet levETIRAcetam 750 MG Oral Tablet (KEPPRA) levETIRAcetam 750 MG Oral Tablet (KEPPRA) 08/07/2019 12:00:00 AM EDT 750 mg Oral aborted Take 1 tablet by tata th Two Times Daily [facility] lamotrigine 200 MG Oral Tablet lamoTRIgine 200 MG Oral Tablet (LaMICtal) lamoTRIgine 200 MG Oral Tablet (LaMICtal) 08/07/2019 12:00:00 AM EDT 200 mg Oral aborted Nonintractable g eneralized idiopathic epilepsy without status epilepticus Take 1 tablet by mouth Two Times Daily [facility] Nonintractable generalized idiopathic ep ilepsy without status epilepticus Acetaminophen 325 MG / Hydrocodone Bitartrate 5 MG Oral Tabl et [Blairs] Blairs 06/11/2019 12:00:00 AM EST ORAL active [facility] (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) Ibuprofen 600 MG Oral Tablet Ibuprofen 06/11/2019 12:00:00 AM EST ORAL active [facility] ([facility]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) Levothyroxine Sodium 0.175 MG Oral Tablet Levothyroxin e Sodium 175 MCG Levothyroxine Sodium 175 MCG 05/30/2019 12:00:00 AM EST active 1 tablet in the morning on an empty stomach [facility] gabapentin 100 MG Oral Capsule Gabapentin 04/24/2019 12:00:00 AM EST active MED[facility] ([facility]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) Metronidazole 500 MG Oral Tablet Metronidazole 04/24/2019 12:00:00 AM EST ORAL completed [facility] (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) Levothyroxine Sodium 0.15 MG Oral Tablet Levothyroxine [...] [facility]) 1 ML heparin sodium, porcine 01770 UNT/ML Injection Heparin Sodium (Porcine) 03/13/2019 12:00:00 AM EST completed [facility] (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) Pentosan Polysulfate 100 MG Oral Capsule [Elmiron] Elmiron 03/04/2019 12:00:00 AM EST ORAL active [facility] (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) lamotrigine 200 MG Oral Tablet lamoTRIgine (LAMICTAL) 200 MG tablet lamoTRIgine (LAMICTAL) 200 MG tablet 10/08/2018 12:00:00 AM EDT 200 mg Oral aborted Nonintractable generalized idiopathic epilepsy without status epilepticus Take 1 tablet by mouth Two Times Daily [facility] Nonintractable generalized idiopathic ep ilepsy without status epilepticus Levetiracetam 750 MG Oral Tablet levETIRAcetam (KEPPRA ) 750 MG tablet levETIRAcetam (KEPPRA) 750 MG tablet 10/08/2018 12:00:00 AM EDT 750 m g Oral aborted Take 1 tablet by mouth Two T imes Daily [facility] Amitriptyline Hydrochloride 25 MG Oral T ablet Amitriptyline HCl 25 MG Oral Tablet (ELAVIL) Amitriptyline HCl 25 MG Oral Tablet (ELAVIL) 25 mg Oral aborted Take 25 mg by mouth Two Times [facility] gabapentin 100 MG Oral Capsule Gabapentin 100 MG Oral Capsule (NEURONTIN) Gabapentin 100 MG Oral Capsule (NEURONTIN) 100 mg Oral aborted Take 100 mg by mouth Two Times Daily [facility] lamotrigine 200 MG Oral Tablet lamoTRIgine 200 MG Oral Tablet (LaMICtal) lamoTRIgine 200 MG Oral Tablet (LaMICtal) 200 mg Oral aborted Take 200 mg by mouth Two Times Daily [facility] Levetiracetam 750 MG Oral Tablet levETIRAcetam 750 MG Oral Tablet (KEPPRA) levETIRAcetam 750 MG Oral Tablet (KEPPRA) 750 mg Oral aborted Take 750 mg by mouth Two Times Daily [facility] Levothyroxine Sodium 0.112 MG Oral Table t levothyroxine (SYNTHROID, LEVOTHROID) 112 MCG tablet levothyroxine (SYNTHROID, LEVOTHROID) 112 MCG tablet 112 ug Oral aborted Take 112 mcg by mout h Daily [facility] Insurance Providers Payer name Policy type / Coverage type Policy ID Covered libertarian ID Covered libertarian's relationship to [place] Policy [place] Plan Information EMEDNY [id number] SP [id number] MEDICAID M [id number] Self [id number] MEDICAID - O/P EMERGENCY ROOM [id number] MEDICAID HEA [id number] MEDICAID M [id number] Self [id number] MEDICAID [id number] SP [id number] ANSI-Medicaid [id number] ANSI-Medicaid [id number] ANSI-Medicaid [id number] ANSI-Medicaid [id number] ANSI-Medicaid [id number] ANSI-Medicaid [id number] ANSI-Medicaid [id number] ANSI-Medicaid [id number] ANSI-Medicaid [id number] ANSI-Medicaid [id number] ANSI-Medicaid [id number] ANSI-Medicaid [id number] ANSI-Medicaid [id number] ANSI-Medicaid [id number] MEDICAID M [id number] S [id number] ANSI-Medicaid [id number] ANSI-Medicaid [id number] ANSI-Medicaid [id number] ANSI-Medicaid [id number] ANSI-Medicaid [id number] ANSI-Medicaid [id number] ANSI-Medicaid [id number] ANSI-Medicaid [id number] ANSI-Medicaid [id number] MEDICAID [id number] SP [id number] MEDICAID [id number] S [id number] MEDICAID [id number] UNAVAILABLE UNAVAILA BLE MEDICAID [facility] [id number] Medicaid [facility] Medicaid Self SELF PAY UNAVAILABLE UNAVAILA BLE MEDICAID -PHYSICIAN [id number] MEDICAID-O/P [id number] MEDICAID - CLINIC [id number] Medicaid [place] Self Medicaid [id number] MEDICAID W [id number] S [id number] MEDICAID 3 [id number] SELFPAY 5 UNAVAILABLE 1 UNAVAILA BLE MEDICAID -RECURRING [id number] 8 [id number] MEDICAID - CLINIC [id number] W UNAVAILABLE UNAVAILA BLE Problems, Conditions, and Diagnoses Code Display Name Description Problem Type Effective Dates Data Source(s) H91.93 910886052 Decreased hearing of both ears Problem 04/20/2020 12:00:00 AM EST [facility]) G47.19 [id number] Excessive daytime sleepiness Problem 01/20/2020 12:00:00 AM EDT [facility]CW[facility] ([facility]) G40.909 500473470 Seizure disorder Problem 01/20/2020 12:00:00 AM EDT eCW1 ([facility]) F44.5 596190326 Pseudoseizures Problem 08/02/2019 12:00:00 A M EDT eCW1 ([facility]) F44.5 139282046 Pseudoseizures Problem 08/02/2019 12:00:00 A M EDT [facility]CW1 ([facility]) 017412827 Chronic interstitial cystitis Chronic interstitial cys titis Problem 04/08/2019 12:00:00 AM EST [facility] (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) [id number] History of Hodgkin lymphoma History of Hodgkin lymphom a Problem 04/08/2019 12:00:00 AM EST [facility] (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) I73.00 240269245 Raynaud's phenomenon without gangrene Pro blem 03/25/2019 12:00:00 AM EST [facility]) N30.10 607273872 Interstitial cystitis Problem 03/25/2019 12: 00:00 AM EST eCW1 ([facility]) E16.2 464453183 Hypoglycemia Problem 03/25/2019 12:00:00 AM EST [facility]CW1 ([facility]) 376934960 Raynaud's phenomenon Raynaud's phenomenon Problem 03/25/2019 12:00:00 AM EST [facility] ([facility]) 540506483 Hypoglycemia Hypoglycemia Problem 03/25/2019 12:00:00 A M EST [facility] ([facility]) E16.2 973763151 Hypoglycemia Problem 03/25/2019 12:00:00 AM EST eCW1 ([facility]) I73.00 604456214 Raynaud's phenomenon without gangrene Pro blem 03/25/2019 12:00:00 AM EST eCW1 ([facility]) N30.10 521621280 Interstitial cystitis Problem 03/25/2019 12: 00:00 AM EST [facility]CW1 ([facility]) G40.309 Generalized idiopathic epile psy and epileptic syndromes, not intractable, without status epilepticus Generalized idiopathic epilepsy and epileptic syndromes, not intractable, without status epilepticus Diagnosis 03/18/2020 07:26:37 AM [facility] seizure disorder seizure disorder Diagnosis 01/29/2020 10 :36:00 AM [facility] [id number] Latex allergy status Latex allergy status Diagnosis 01/29/2020 06:03:00 AM [facility] E039 Hypothyroidism, unspecified Hypothyroidism, unspecifie d Diagnosis 01/29/2020 06:03:00 AM [facility] [id number] Unspecified asthma, uncomplicated Unspecified as thma, uncomplicated Diagnosis 01/29/2020 06:03:00 AM [facility] R1084 Generalized abdominal pain Generalized abdominal pain Diagnosis 01/29/2020 06:03:00 AM [facility] Q92022 Epilepsy, unspecified, not intractable, without status epilepticus Epilepsy, unspecified, not intractable, without status epilepticus Diagnosis 01/29/2020 06:03:00 AM [facility] G40.901 Epilepsy, unspecified, not intractable, with status epilepticus Epilepsy, unspecified, not intractable, with status epilepticus Diagnosis 01/12/2020 01:58:11 PM EDT [facility] s/p seizure s/p seizure Diagnosis [facility] 11/29/2019 02:03:00 AM ED [facility] encephalitis encephalitis Diagnosis 11/29/2019 02:03:00 A M [facility] N924 Excessive bleeding in the premenopausal period Excessive bleeding in the premenopausal period Diagnosis 04/26/2019 04:04:00 PM [facility] R102 Pelvic and perineal pain Pelvic and perineal pain Diag nosis 04/26/2019 04:04:00 PM [facility] Surgeries/Procedures Procedure Description Date Indications Data Source(s) VAGINAL HYSTERECTOMY UTERUS 250 GM/< 02/13/2020 12:00: 00 AM EDT [facility] (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) BLOOD COUNT COMPLETE AUTO&AUTO DIFRNTL WBC COUNT CBC AND DIFFER ENTIAL Routine 01/14/2020 3:53 AM EDT [facility]/14[facility] CALCIUM TOTAL BASIC METABOLIC PANEL Routi ne 01/14/2020 3:53 AM EDT 01/14/2020 03:53:00 AM EDT [facility] EKG 12-LEAD - CMAXX REPORT EKG 12-LEAD - CMAXX REPORT 01/13/2020 12:17 AM EDT 01/13/2020 12:17:52 AM EDT [facility] EKG 12-LEAD - CMAXX REPORT EKG 12-LEAD - CMAXX REPORT 01/13/2020 12:17 AM EDT 01/13/2020 12:17:52 AM EDT [facility] EKG 12-LEAD EKG 12-LEAD Routine 01/13/2020 12:17 AM EDT 01/13/2020 12:17:52 AM [facility] BLOOD COUNT COMPLETE AUTO&AUTO DIFRNTL WBC COUNT CBC AND DIFFER ENTIAL Routine 01/12/2020 4:59 AM EDT 01/12/2020 04:59:00 AM [facility] BASIC METABOLIC PANEL CALCIUM TOTAL BASIC METABOLIC PANEL Routi ne 01/12/2020 4:59 AM EDT 01/12/2020 04:59:00 AM EDT [facility] BASIC METABOLIC PANEL CALCIUM TOTAL BASIC METABOLIC PANEL Routi ne 01/11/2020 3:50 PM EDT 01/11/2020 03:50:00 PM EDT [facility] BLOOD GASES ANY COMBINATION PH PCO2 PO2 CO2 HCO3 BLOOD GAS, ART ERIAL Routine 01/11/2020 1:22 PM EDT 01/11/2020 01:22:00 PM [facility] CT HEAD/BRAIN W/O CONTRAST MATERIAL CT HEAD WITHOUT CONTRAST 70 450 STAT 01/11/2020 9:52 AM EDT 01/11/2020 09:52:10 AM [facility] COVID-19 PCR COVID-19 PCR Routine 01/11/2020 9:22 AM EDT 01/11/2020 09:22:00 AM [facility] BASIC METABOLIC PANEL CALCIUM IONIZED POCT ISTAT CHEM8 Routine 01/11/2020 9:19 AM EDT 01/11/2020 09:19:00 AM EDT [facility] GONADOTROPIN CHORIONIC QUANTITATIVE POCT ISTAT BHCG Routine 01/11/2020 9:13 AM EDT 01/11/2020 09:13:00 AM EDT [facility] BLOOD GASES ANY COMBINATION PH PCO2 PO2 CO2 HCO3 POCT ISTAT VBG /LAC Routine 01/11/2020 9:10 AM EDT 01/11/2020 09:10:00 AM [facility] LAMOTRIGINE LAMOTRIGINE Routine 01/11/2020 9:01 AM EDT 01/11/2020 09:01:00 AM [facility] LEVETIRACETAM LEVEL LEVETIRACETAM LEVEL Routine 01/11/2020 9:01 AM EDT 01/11/2020 09:01:00 AM [facility] URNLS DIP STICK/TABLET REAGENT AUTO MICROSCOPY URINALYSIS W ITH MICROSCOPIC STAT 01/11/2020 8:57 AM EDT 01/11/2020 08:57:00 AM [facility] BLOOD COUNT COMPLETE AUTO&AUTO DIFRNTL WBC COUNT CBC AND DIFFER ENTIAL STAT 01/11/2020 8:57 AM EDT 01/11/2020 08:57:00 AM [facility] HEPATIC FUNCTION PANEL HEPATIC FUNCTION PANEL A STAT 0 8:57 AM EDT 01/11/2020 08:57:00 AM [facility] BASIC METABOLIC PANEL CALCIUM TOTAL BASIC METABOLIC PANEL STAT 01/11/2020 8:57 AM EDT 01/11/2020 08:57:00 AM EDT [facility] EKG 12-LEAD - CMAXX REPORT EKG 12-LEAD - CMAXX REPORT 01/11/2020 8:56 AM EDT 01/11/2020 08:56:40 AM EDT [facility] EKG 12-LEAD - CMAXX REPORT EKG 12-LEAD - CMAXX REPORT 01/11/2020 8:56 AM EDT 01/11/2020 08:56:40 AM EDT [facility] EKG 12-LEAD EKG 12-LEAD STAT 01/11/2020 8:56 AM EDT 01/11/2020 08:56:40 AM T [facility] EKG 12-LEAD - CMAXX REPORT EKG 12-LEAD - CMAXX REPORT 01/11/2020 8:56 AM EDT 01/11/2020 08:56:00 AM EDT [facility] XR CHEST FRONTAL ONLY 66582 XR CHEST FRONTAL ONLY 91578 STAT 01/11/2020 8:45 AM EDT 01/11/2020 08:45:00 AM EDT [facility] BLOOD COUNT COMPLETE AUTOMATED CBC AND DIFFERENTIAL STAT 01/06/2020 9:20 AM EDT Hodgkin lymphoma, unspecified Hodgkin lymphoma type, unspecified body region 01/06/2020 09:20:00 AM EDT Hodgkin lymphoma, unspecified Hodgkin ly mphoma type, unspecified body region [facility] Hodgkin lymphoma, unspecified Hodgkin ly mphoma type, unspecified body region LACTATE DEHYDROGENASE LDH LACTATE DEHYDROGENASE STAT 01/05 9:20 AM EDT Hodgkin lymphoma, unspecified Hodgkin lymphoma type, unspecified body region 01/06/2020 09:20:00 AM EDT Hodgkin lymphoma, unspecified Hodgkin ly mphoma type, unspecified body region [facility] Hodgkin lymphoma, unspecified Hodgkin ly mphoma type, unspecified body region COMPREHENSIVE METABOLIC PANEL COMPREHENSIVE METABOLIC PANEL Diandra gilbert 01/06/2020 9:20 AM EDT Hodgkin lymphoma, unspecified Hodgkin lymphoma type, unspecified body region 01/06/2020 09:20:00 AM EDT Hodgkin lymphoma, unspecified Hodgkin ly mphoma type, unspecified body region [facility] Hodgkin lymphoma, unspecified Hodgkin ly mphoma type, unspecified body region TRANS CARE MGMT 7 DAY DISCH 08/02/2019 12:00:00 AM EDT [facility] Transitional Care NO CHARGE Visit 07/29/2019 12:00:00 AM EDT [facility]CW1 ([facility] Laparoscopy W/Removal Of Adnexal Struc Oophorectomy/Salp 06/13/2019 12:00:00 AM EST [facility] (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) BLOOD COUNT COMPLETE AUTO&AUTO DIFRNTL WBC COUNT CBC AND DIFFER ENTIAL STAT 04/22/2019 2:00 PM EST Hodgkin lymphoma, unspecified Hodgkin lymphoma type, unspecified body region 04/22/2019 07:00:00 PM EST Hodgkin lymphoma, unspecified Hodgkin ly mphoma type, unspecified body region [facility] Hodgkin lymphoma, unspecified Hodgkin ly mphoma type, unspecified body region LACTATE DEHYDROGENASE LDH LACTATE DEHYDROGENASE STAT 04/22 2:00 PM EST Hodgkin lymphoma, unspecified Hodgkin lymphoma type, unspecified body region 04/22/2019 07:00:00 PM EST Hodgkin lymphoma, unspecified Hodgkin ly mphoma type, unspecified body region [facility] Hodgkin lymphoma, unspecified Hodgkin ly mphoma type, unspecified body region COMPREHENSIVE METABOLIC PANEL COMPREHENSIVE METABOLIC PANEL STA T 04/22/2019 2:00 PM EST Hodgkin lymphoma, unspecified Hodgkin lymphoma type, unspecified body region 04/22/2019 07:00:00 PM EST Hodgkin lymphoma, unspecified Hodgkin ly mphoma type, unspecified body region [facility] Hodgkin lymphoma, unspecified Hodgkin ly mphoma type, unspecified body region Irrigation Of Bladder 04/08/2019 12:00:00 AM EST [facility] (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) Irrigation Of Bladder 03/28/2019 12:00:00 AM EST [facility] (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) Results ID Date Data Source [id number] 04/28/2020 12:21:00 AM EST [facility] Name Value Range Interpretation Code Description Data Corrie rce(s) Supporting Document(s) SARS coronavirus 2 RNA [Presence] in Res piratory specimen by ALIX with probe detection NEGATIVE [facility] This lab was ordered by [facility] a nd reported by [facility]. ID Date Data Source [id number] 03/30/2020 01:33:45 AM EST [facility] Name Value Range Interpretation Code Description Data Corrie rce(s) Supporting Document(s) Progress Note [facility] IEXWUp5xSrSJYnIl94/YKHsoDOTyg7GwUQtuDLf0GResZQTbL6XeUZR3qS3hTOE0AGdHLkPnOxAqAuN2 lbm FrZjjWCbChWDVhTvuGJzUyTQdhAvzorRXvIA6SrBT0HPIjX99pAREoPNFmH6CgCRWnGTu+Vr8WILVliC TzEX1KHrsM7K3mf7WFMx7+Vfc/FSXV2oKSMYy/RkoKWNOrFHRPknTSmhirGBrbW8I8wvMw/xoRgwDX1E qh7qdKRSaTDtQgdCn8z7/TM1Kq+Z03gWgPytGnxG+H w0zpy86c5O//ouav+d7Da/N/spfIDzwnceLiB/k/fffLHzzrqPUdR+XDUAlno2tqvqaAO3PeGj2xQ3xh l75a5svlMfv+egk81NmV+8cHKklcz/M/RA5nLi8A1z100aam2zKnQSjY4aUAQpBohbOCIAzRIzqv5C0y Fz7vwuzGUj0UrjepNa3E/dgL2V+p0KElWi1jCJw8OS l8PgFw1SSXZGfnKL7t3EXI1pvl4AsFi0GWOZ175Om1v1LhgL/vu5Vc0RLaPwcNz5wrd/fSgpfhaU4F0x xrEMoRyz8EHtqTGnhdDggTNWdQeiuysykKd+uMTV114BiIUixFhAsDU/vkWgKRKS6pJ62yLyc7OuRIoZ FfIa7dOwTGYTu8CPy80k975yFdF1QL4KH1hcS4AydP 3aDz0ma/G4Z1OgB0LI2jPiE5zpyhP+88V5xFseiUA9tV3r2F1sez3gOoy8EievPV9zwVv67Ts7jkC4wa ejw8ljSaHETFG7mj1ZnhSDaLfzkTx7BNTIZT3VV+gnJ5k2vXd7iFSM71tTidpMKYhg4fHkDg9PEYe27t 14iBFReet7IprdWglWyS8njf8kAFcoe+3bVw5v9lBb ZVAGWNIhaeiZZXl89wOQ2XpMVVW6sgR6ac9JUmbsGdC3zGMTr2gUnzJuunDxH1EqV8ATPkw6KmRBELrB 6RUZ+ouED83BQ+HI7LjIATvajWn5HQhjjCoA2Lmj6qYVRSZUC/jQQyvp+qjVjX8fvMo8fmcg97hj/Sofie [file] 4WsQUZoUJhLrEkiw+eHlLm1CPYhQgop1tlDOo31eL/3/Butcher [place]+xcs+M5c4vKws+GDbrtIjJ7m9bXbCvEJo4 [file] PrCWSP/MAP/T+manager analytical+5//IkWrIZD9X58iFgdJmOUf/kJoTKma3OqaR0y/J5J04APLxZgP7Ua+ukjez3xgf [file] ICAgICAgICAgICAgICAgICAgICAgICAgICAgICAgIC AgICAgICAgICAgICAgICAgICAgICAgICAgICAgICAgICAgICAgICAgICAgICAgICAgICAgICAgICAgIC VvDOAkJG4EUMGbOXPrCLZgJIMsMYNsQSKyXCGzCNJcGQOcACHiKIWpIHCvCEEvEYKkYOZdQAWqVNLdOJ AgICAgICAgICAgICAgICAgICAgICAgICAgICAgICAg DBSdZWSbQLHhZOKbLCPrFO5MIXYfXZBmEVAtJVCwWKLfNLIcPHFrTNJjYCWkAEFxWSPnVQQjVYCfOQGg XHNqGOXvFQQiZWRmTMLoXRGzOJUjYTVvZTWoSHWnAVJeUYHhGFHvBMMmLHAbQMRhIIYtKXIxBPIoVJ0D ICAgICAgICAgICAgICAgICAgICAgICAgICAgICAgIC AgICAgICAgICAgICAgICAgICAgICAgICAgICAgICAgICAgICAgICAgICAgICAgICAgICAgICAgICAgIC XmVKAnKSNvAT1XJKFiECPrXAUuPOSaRUQlETBgYNKvCGEsCPQmYQDcHLFvZDGiFBQbGRPxOGNcDNWkEY AgICAgICAgICAgICAgICAgICAgICAgICAgICAgICAg QURnSLNvZVOpGPRoFCRlPUUlZN2HPFPjZMJrYDBfBOIqSTLwRWOmEJFdBCZaDQTrNZVmETRuIHIbRQCm ICAgICAgICAgICAgICAgICAgICAgICAgICAgICAgICAgICAgICAgICAgICAgICAgICAgICAgICAgICAg NP5SQPLvYNHaSBByNCBlRWExYXIdDCFtNIWyHTPhEG AgICAgICAgICAgICAgICAgICAgICAgICAgICAgICAgICAgICAgICAgICAgICAgICAgICAgICAgICAgIC SaZDZaZWTxQOMwGC3KZRFcJMSpWNEsNOVdSQJiPECpJBVwEBZfSSGkNVOgHJSpEXVqJJHmWPGzSUWnOU AgICAgICAgICAgICAgICAgICAgICAgICAgICAgICAg DBJeDREnVUFvESTkDWVdPHPpYFUzHP3PSMWySHLgTCYzFEQxQALlIKDiNMDmXCXhRDAqRALwKAHjLODl ICAgICAgICAgICAgICAgICAgICAgICAgICAgICAgICAgICAgICAgICAgICAgICAgICAgICAgICAgICAg HNZtTN0PUREwIVMrDTYuMIRwRPHdYVCvLRNmQSArGM AgICAgICAgICAgICAgICAgICAgICAgICAgICAgICAgICAgICAgICAgICAgICAgICAgICAgICAgICAgIC SsJIVpXQUlXYBvJYFfSO5UAM56fCFky1V7ENNiTI3jynd/Wt9PCEjeizUirCQqSR6AGzRbHK2hws4PLt AaSV6ssx4WFSwGFnScO2E8cHKmKWUqAJQBVzXlT46c QLvqLn04EXfcJJAcCqQhBBd7Qv3QNdIrQ4kuWUOkOwV0UAUhCkZ1RGAqYsN1NSAnXeUkIYWzTHTnRMEw QSQTDDC9NMQmDgGiFwNjLCJbLYyzVJQKCAKuZJDeUnMuHvSvQMTwXC7LDKVlZ656ocHrTMSYVs4+DQpl elIbPpzNZhWcKJBcp2SqUIf6JK9MGKMvXzgqk4KcWQ JoTRLQTKngUN6BBEX9ATVrHXOqDt1NRJJsP221ulSeCI9WFy0BTzNaEK9ihf9EMCYbKWLlLtrIPsc9SM ggNC6VxEFyGJuJdt2jdqBdgeORv1AymzAqlVKJyLRfW4FuuowzKdmehUasJSCbCOJgKJEhMx0wGDSsLT B2FdR7EACMLZ9INJOgXCNzsVNyXYVlPHQUTG0PEGaw OHE3WSOwovCeeMZlVSgnLW4JZKGsfiQjUPFdXXKKORt+Wu9PUH5qp0UvWZw2WbDnLB4qnb6FBTpQCeEe E1O3xQKcF4H7XEsqKw6OKTCqAFDbObsqACMKBEmvDA8XAN8oovC8HC8VmPPsUWZuWWRjjVStRTk8I23o gXNtYDlhBI5DBAQ+Sadie+Cq6FOFLpYQDhFPZbKiSjUZ RFGvFjO2AiY3VGj6RkM5ZbUL42kMipfpVuXBtyJY4PPE8jIJVzOANPDS8RoVNshZ1axzK3JLXyPCUQGw NxB90ncOXxZWUrSPQ3GKQuDa0IJRYuD6CebcLzxCnylpMcYKUqLABADF8OXIoesdGqmCMktQglXM41fW dgNU9QAl6LCeDfLS0fdx8DxSUhPc6LJIO9Lk3ATTRy TQUuQSLcXFN8NZXuVeRbHMnuVOIuCTUiURR8SDYbHXIxFH1BFvHsWQHgKoMfKAKpZWEbCEAkzz8EPQMw WXG7PMh0PIAwSYPuGSWfGDwyGXSxZWLgZLK6VWHfOGGsFI5PRtLnCWWeTUI9KWphOWUcJNOuig8MYAJb EUUpZFl5YNLfBGRuAQAbVDlxKPHzVVI2YImgBDCdSV PiBT7DViEsXRCmXQtwVEjhUCSpRKNbgo6PTCLwKRQrIFxrSKDgUKXmKVUxAQioQSIuZNWkZXK1BRLqSR LnEQ0SXwIwOWNiLYV2AUBeUREkSMPaul6OHCPsGLGzCYCjXBCkZOEcHBCgBUwlCABgEUB2CoGyKXNmFO UlZH1WDzHgQCKgUEr0RWAeOQHmIUYljz7HOHXkUPXh ICh9NbKfTVWyBYSgVMgbCCAqLRGbHUmwDWDfPEWhBJ6BPiHwBXCpPbJ7PFdmSMXbRXCrrh1PNCSpWUJp GdmbYFKiRYZbFRAdLZzwPHLpKBP1MQP9HYZwVGPwBQ4RWfWlCJRmWrH0ZIYdVUZdGSPkvd9QOJApRIXm XUL0XDIsFNXeNNPjBXuzONFvFWDfCwn0GKGrQBHkYU 5ZExMvPFXuThP2ZxFnRHFyTOPrdo7MQRXbBBPkWNQdWBSyAZYyPUTyIUxbDNIiXZU1KClrKTZhXWSzLZ 5KJmDvFUBzUxSmIXngUNStDHXszz1IHCUuPLSbWJX5HFVxEUNiTSJcAExuJFHhIQD7QUKxHHHeGLXuXY 4ICbLyVBVhUxS5NdSfGLRxBFLevd7QZXMpLQWkSixr TNLyTXSiBUKcIKayPXOgIAW3QavvTJBeXEHoUW6XZbBnUFZwZPd9AQFcODDhHZJzfq5WVCYlIFG7NUI5 FLEgDGTrEGMwGXloIWVrQQP5EHH1EDTePEHwKT1ZTbBvZUAeQZq5WKRyZDVfBWQazb3IEXDlAJS1IYC4 NdUtOSBxOWUgYUqbVSXpTQK4MMD4DFMpTWSnNC6OVh PzACBqEiLmHiVlBZZaWQWmgc0QRBNwOKE8TXBhLIEhRRTzBADrMJwsAIMhQXBzHKT6NQOtVIBaIR2PSm NsTUQcAqJcOKVlWDLxBZIouo8KIZImWPF8TrH9ORStWZOpYLIlTNx3tbHexICjLHe3YY7YK0FfdvJzMV SUXg8Ef420YWGoIPFpBw7WF8uuRt4pXKAgJQRPXs6O QRw6RrScIFD0QzfpPVtyASHgWhp5HQh8XTpdZHMbYOS6DQx+OZfsW0W2WuwtV7HtYRPmHPXhGMqfYefe S2RvJJGfJWr5AT1zWPZJVi8+PDqtsHOsyDkyZXGPLsHsLFLdSDqiWFFKQi1B ID Date Data Source LAMOTRIGINE (LAMICTAL) 03/20/2020 12:00:00 AM W1 ([facility]) Name Value Range Interpretation Code Description Data Corrie rce(s) Supporting Document(s) 0.6 2.0-20.0 LAMOTRIGINE (LAMICTAL) [facility] ([facility]) ID Date Data Source [id number] 03/20/2020 12:00:00 AM EST eCW1 ([facility]) Name Value Range Interpretation Code Description Data Corrie rce(s) Supporting Document(s) Hemoglobin A1c/Hemoglobin.total in Blood 5.3 HEMOGLOBIN A1c eCW1 ([facility] ID Date Data Source [id number] 02/08/2020 09:00:00 AM EDT [facility] Name Value Range Interpretation Code Description Data Corrie rce(s) Supporting Document(s) SARS coronavirus 2 RNA [facility] This lab was ordered by [facility] and reported by [facility]. ID Date Data Source [id number] 01/31/2020 09:01:00 AM EDT [facility] [address] [place] [address] PHONE: [phone] FAX: [phone] Name .................. : SOCO Wisdom Acct Number.................. : [id number] ROOM. ................. : TR-07 MR Number ................... : [id number] Stay type ............. : E/R Discharge Date......... ... : 01/29/20 Admit Date ......... : 01/29/20 Admit Phys .................... : WEI BRISCOE Date of ....... : 1990 Family Phys ................... : SEMAJ VAUGHN Phone .................. : [phone] Age ................................ : 29 Film# .................. .:[id number] Sex ................................. : F Unsigned transcriptions are preliminary reports and do not represent a medical or legal document CT ABD & PELV W/O ORAL W/O IV [id number] COMPLETE:01/29/20 07:22 RLB [id number] Reason(s): periumbilical pain w vomiting CT SCAN [...] or ureteral calculi. Page 1 of 2 [place] [address] PHONE: [phone] FAX: [phone] Name ............. ..... : SOCO Wisdom Acct Number.................. : [id number] ROOM. ................. : TR-07 Number ................... : [id number] Stay type ............. : E/R Discharge Date......... ... : 01/29/20 Admit Date ......... : 01/29/20 Admit Phys .................... : WEI BRISCOE Date of ....... : 1990 Family Phys ................... : SEMAJ VAUGHN Phone .................. : [phone] Age ................................ : 29 Film# .................. .:[id number] Sex ................................. : F Unsigned transcriptions are preliminary reports and do not represent a medical or legal document CT ABD & PELV W/O ORAL W/O IV [id number] COMPLETE:01/29/20 07:22 RLB [id number] Reason(s): periumbilical pain w vomiting While performing [...] rce(s) Supporting Document(s) ID Date Data Source [id number] 01/31/2020 09:00:00 AM EDT [address] [place] [address] PHONE: [phone] FAX: [phone] Name .................. : SOCO Wisdom Acct Number.................. : [id number] ROOM. ................. : TR-07 MR Number ................... : [id number] Stay type ............. : E/R Discharge Date......... ... : 01/29/20 Admit Date ......... : 01/29/20 Admit Phys .................... : WEI BRISCOE Date of ....... : 1990 Family Phys ................... : SEMAJ VAUGHN [facility] .................. : [phone] Age ................................ : 29 Film# .................. .:[id number] Sex ................................. : F Unsigned transcriptions are preliminary reports and do not represent a medical or legal document CHEST PORTABLE [id number] COMPLETE:01/29/20 06:31 RLB 91331 Reason(s): seizure PORTABLE CHEST X-RAY: COMPARISON: 09/22/11 FINDINGS: There is no evidence of acute consolidation or congestive heart failure. The heart is not enlarged. There is no hilar adenopathy. IMPRESSION: No evidence of significant acute pulmonary disease. Electronically Reviewed and Signed By Madhu Costa MD , 01/31/20 09:00, [facility] Transcribe Initials: EPHRAIM , Transcribe Date: 01/29/20 23:31, Dictation Date: Copy for: 710 MED REC DISCHARGED Page 1 of 1 Name Value Range Interpretation Code Description Data Corrie rce(s) Supporting Document(s) ID Date Data Source [id number] 01/31/2020 09:00:00 AM EDT [facility] [address] [place] [address] PHONE: [phone] FAX: [phone] Name .................. : SOCO Wisdom Acct Number.................. : [id number] ROOM. ................. : TR-07 Number ................... : [id number] Stay type ............. : E/R Discharge Date......... ... : 01/29/20 Admit Date ......... : 01/29/20 Admit Phys .................... : EWI BRISCOE Date of ....... : 1990 Family Phys ................... : DYLLANSHANON VAUGHN Phone .................. : [phone] Age ................................ : 29 Film# .................. .:[id number] Sex ................................. : F Unsigned transcriptions are preliminary reports and do not represent a medical or legal document CT HEAD W/O CONTRAST [id number] COMPLETE:01/29/20 07:41 75595 Reason(s): Headache CT SCAN OF THE HEAD [...] By Madhu Costa MD , 01/31/20 09:00, [facility] Transcribe Initials: EPHRAIM , Transcribe Date: 01/29/20 16:29, Dictation Date: Page 1 of 2 [place] [address] PHONE: [phone] FAX: [phone] Name .................. : SOCO VAUGHNCLAUDINE Wisdom Acct Number.................. : [id number] ROOM. ................. : TR-07 MR Number ................... : [id number] Stay type ............. : E/R Discharge Date......... ... : 01/29/20 Admit Date ......... : 01/29/20 Admit Phys .................... : WEI BRISCOE Date of ....... : 1990 Family Phys ................... : SEMAJ VAUGHN Phone .................. : [phone] Age ................................ : 29 Film# .................. .:[id number] Sex ................................. : F Unsigned transcriptions are preliminary reports and do not represent a medical or legal document CT HEAD W/O CONTRAST [id number] COMPLETE:01/29/20 07:41 76031 Reason(s): Headache Copy for: 710 MED REC DISCHARGED Page 2 of 2 Name Value Range Interpretation Code Description Data Corrie rce(s) Supporting Document(s) ID Date Data Source [id number] 01/29/2020 06:03:00 AM EDT [facility] 1 OrderSheet [facility] Emergency Department [address] [place] [address] Phone #: ext- [phone] 01/29/2020 06:00 Patient: NERY WAN Sex: F : 1990 Age: 29yWEIGHT:68.0 kg (S) HEIGHT:64 inches (S) BMI:25.8ALLERGIES: Fentanyl and Related, IV Contrast, Ketamine, LatexCHIEF COMPLAINT: seizure, x1, seizure, [id number]: Seizure, Abdominal painLAB ORDERSOrder Description Priority Entered Acknowledged [facility]edK[facility] w [facility] STAT 06:12 01/29/2020 06:31 [...] Ying; Reason for Study: seizure 2 OrderSheet [facility] Emergency Department [address] [place] [address] Phone #: ext- [phone] 01/29/2020 06:00 Patient: [...] with Dextrose Physician;Intravenous 100 mL(D5W) 3 OrderSheet [facility] Emergency Department [address] [place] [address] Phone #: ext- [phone] 01/29/2020 06:00 Patient: NERY WAN Sex: F : 1990 Age: 29yGENERAL ORDERSOrder Description Priority Entered Acknowledged InitialedBlood Pressure 06:12 01/29/2020 06:30 [place],Monitor Manuelito Carvajal R.N., M.D.;Casino Cashier 06:12 01/29/2020 06:30 [place](continuous) Manuelito Carvajal R.N., [...] rce(s) Supporting Document(s) ID Date Data Source [id number] 01/29/2020 06:03:00 AM EDT [facility] 1 Medication Reconciliation Report [facility] Emergency Department [address] [place] [address] Phone #: ext- [phone] 01/29/2020 06:00 Patient: [...] 01/29/2020 6:50:00 AM 2 Medication Reconciliation Report [facility] Emergency Department [address] [place] [address] Phone #: ext- [phone] 01/29/2020 06:00 Patient: [...] rce(s) Supporting Document(s) ID Date Data Source [id number] 01/29/2020 06:03:00 AM EDT [facility] 1 Medication Administration Record [facility] Emergency Department [address] [place] [address] Phone #: ext- [phone] 01/29/2020 06:00 Patient: NERY WAN Sex: F : 1990 Age: 29yWeight: 68.0 kgHeight/Length: 64 inBMI: 25.8ALLERGIES: Fentanyl and Related, Ketamine, Latex, IV Contrast Date/Time Medication Administered Medication OrderedGiven ATIVAN [IVP] (LORAZEPAM) Ativan IVP 2 mg (HIGH ALERT06:14 01/29/2020 Dose: 2 mg IVP MEDICATION)Glenys Sullivan R.N. Site: #1Start NS [IV] NS IV 1000 mL Bolus: : Bolus 488686:50 01/29/2020 Dose: IV Fluids mL (X1)Denys Niño [...] rce(s) Supporting Document(s) ID Date Data Source [id number] 01/29/2020 06:03:00 AM EDT [facility] 1 General Instructions [facility] Emergency Department [address] [place] [address] Phone #: ext- [phone] 01/29/2020 06:00 Patient: [...] rce(s) Supporting Document(s) ID Date Data Source [id number] 01/29/2020 06:03:00 AM EDT [facility] 1 Clinical Report - Nurses [facility] Emergency Department [address] [place] [address] Phone #: ext- [phone] 01/29/2020 06:00 Patient: NERY WAN Sex: F : 1990 Age: 29yTRIAGEArrived by private vehicle. ( Per patient's fiance, patient was released from [facility] for seizures. Hx ofseizures. Per report, patient was home for an hour and began complaining of abdominal pain andrequested to go to the hospital. While in the car, patient had a seizure and became unresponsive. Patientassisted to room 7. Dr. Carvajal to bedside.).Triage time: 06:07 01/29/2020. 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 2 Clinical Report - Nurses [facility] Emergency Department [address] [place] [address] Phone #: ext- [phone] 01/29/2020 06:00 Patient: [...] in arms/hands). --06:34 01/29/20 Glenys Sullivan R.N. site monitor, NIBP monitor and pulse oximeter placed on patient. EKG time: (06:16 01/29/2020). EKG was performed by a nurse and shown to the ED physician. Patient gowned. Reassurance given. Patient identifiers checked. Call light placed in reach. Bed placed in lowest position. Brakes of bed on. --06:35 01/29/20 Glenys Sullivan R.N. 3 Clinical Report - Nurses [facility] Emergency Department [address] [place] [address] Phone #: ext- [phone] 01/29/2020 06:00 Patient: [...] status is 4 Clinical Report - Nurses [facility] Emergency Department [address] [place] [address] Phone #: ext- [phone] 01/29/2020 06:00 Patient: [...] ( pt now to be transferred to [facility]). --10:01/29/20 Wesley Childers RN 11:11 01/29/2020 Keppra [...] Wesley Childers RN.DISPOSITION / DISCHARGE Transferred to [facility]. Visit overview and summary of care (CCDA) [...] Childers RN 5 Clinical Report - Nurses [facility] Emergency Department [address] [place] [address] Phone #: ext- [phone] 01/29/2020 06:00 Patient: NERY WAN Sex: F : 1990 Age: 29y De parture time: 11:59 01/29/2020. --11:59 01/29/20 Wesley Childers RN.Locked/Released at 01/29/2020 11:59 by Wesley Childers RN Name Value Range Interpretation Code Description Data Corrie rce(s) Supporting Document(s) ID Date Data Source [id number] 01/29/2020 06:03:00 AM EDT [facility] 1 Clinical Report - Physicians/Mid Levels [facility] Emergency Department [address] [place] [address] Phone #: ext- [phone] 01/29/2020 06:00 Patient: [...] pt was admitted 4 weeks ago in [place] and 2 weeks ago in [place], and had multiple scans and EEG, to find out it's stress related; pt arguing w neighbors lately; 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 Similar symptoms previously. Patient has had similar symptoms many times, chronically. Recent medical care: The patient was seen recently at another facility in the emergency department. ( [facility] last evening).REVIEW OF SYSTEMSNo fever, [...] lymphoma. 2 Clinical Report - Physicians/Mid Levels [facility] Emergency Department [address] [place] [address] Phone #: ext- [phone] 01/29/2020 06:00 Patient: [...] normal. 3 Clinical Report - Physicians/Mid Levels [facility] Emergency Department [address] [place] [address] Phone #: ext- [phone] 01/29/2020 06:00 Patient: [...] 5.0) 4 Clinical Report - Physicians/Mid Levels [facility] Emergency Department [address] [place] [address] Phone #: ext- [phone] 01/29/2020 06:00 Patient: [...] mL/min Normal PT/PTT: (HUSSEIN: 01/29/2020 06:17) ( NjgRcvd 01/29/2020 06:49) Final results Test Result Flag Units (Reference) PROTIME 13.3 SECONDS (11.0 - 15.5) INR 1.00 (0.93 - 1.23) PTT 29.0 SECONDS (24.8 - 36.7) \\BLDo\\INR INTERPRETATION\\BLDx\\ Therapeutic range for Coumadin and related oral anticoagulants. -International Normalized Ratio (INR): 2.0 - 3.0 for Venous Thrombosis, Pulmonary Embolus, Tissue heart valves, Acute VT Atrial Fibrillation, Valvular heart disease and recurrent Systemic Embolism. -International Normalized Ratio (INR): 2.5 - 3.5 for Mechanical Prosthetic valve. Troponin-T: (HUSSEIN: 01/29/2020 06:17) ( NjgRcvd 01/29/2020 06:47) Final results Test Result Flag Units (Reference) TROPONIN T <0.01 NG/ML (0.00 - 0.10) TROPONIN T0.1 ng/ml Recommended as the clinical threshold value forTroponin T. Magnesium: (HUSSEIN: 01/29/2020 06:17) ( [facility] Final results Test Result Flag Units (Reference) MAGNESIUM 1.9 MG/DL (1.7 - 2.2) Chest Portable 1 View: (HUSSEIN: 01/29/2020 06:12) ( NjgRcvd 01/29/2020 06:31) In Progress CHEST PORTABLE Reason(s): seizure TRANSPORTATION: P IV? O2? Oxygen?(No) Room: ED. 5 Clinical Report - Physicians/Mid Levels [facility] Emergency Department [address] [place] [address] Phone #: ext- [phone] 01/29/2020 06:00 Patient: NERY WAN [facility]#: [id number] Sex: F : 1990 Age: 29yPROGRESS AND [...] and hospitalized. ( Has been hospitalized in [place] 4 weeks ago and [facility] 2 weeks ago and has had multiple scans and EEGs. Just seen and released from [facility] ED 1 hour before arriving here at [facility].).REVIEW OF SYSTEMSNo fever, chest pain, palpitations, cough or difficulty breathing. No eye irritation, sore throat, diarrhea,black stools or difficulty with urination. No vomiting or bloody stools. The patient has had abdominal painand nausea. 6 Clinical Report - Physicians/Mid Levels [facility] Emergency Department [address] [place] [address] Phone #: ext- [phone] 01/29/2020 06:00 Patient: [...] the 7 Clinical Report - Physicians/Mid Levels [facility] Emergency Department [address] [place] [address] Phone #: ext- [phone] 01/29/2020 06:00 Patient: [...] Not IndicateDrug Screen-Urine: (HUSSEIN: 01/29/2020 08:00) ( [facility] 01/29[facility] 08:51) Final results Test Result Flag [...] [facility]IT[facility] PEL W/O Oral W/O IV Contrast: (HUSSEIN: 01/29/2020 06:54) ( NjgRcvd 01/29/2020 07:22) InProgressCT ABDReason(s): periumbilical pain w vomitingTRANSPORTATION: S IV? IV?(Yes) O2? Oxygen?(No) RoCT Abd PEL W/ IV Contrast Only: (HUSSEIN: 01/29/2020 06:41) ( MsgRcvd 01/29/2020 06:54) CanceledReason(s): periumbilical pain w vomitingReason(s): periumbilical pain w vomitingTRANSPORTATION: S IV? IV?(Yes) O2? Oxygen?(No) RoCBC w Diff: (HUSSEIN: 01/29/2020 06:17) ( [facility] 01/29/[facility] 06:50) Final results 8 Clinical Report - Physicians/Mid Levels [facility] Emergency Department [address] [place] [address] Phone #: ext- [phone] 01/29/2020 06:00 Patient: [...] Male GFR Interprentation 20-49 yrs >60 mL/min Ppejjh07-05 yrs >56 mL/min Normal 60-69 yrs >49 mL/min Normal 70-79yrs>42 mL/min Normal 80 and above >35 mL/min Normal Female GFRInterpretation 20-39 yrs >60 mL/min Normal 40-49 yrs >58 mL/min 9 Clinical Report - Physicians/Mid Levels [facility] Emergency Department [address] [place] [address] Phone #: ext- [phone] 01/29/2020 06:00 Patient: NERY WAN [facility]#: [id number] Sex: F : 1990 Age: 29y Normal 50-59 yrs >51 mL/min Normal 60-69 yrs >45 mL/min Normal 70- 79 yrs >39 mL/min Normal 80 and above >32 mL/min Normal PT/PTT: (HUSSEIN: 01/29/2020 06:17) ( [facility] 01/29/2020 06:49) Final results Test Result Flag Units (Reference) PROTIME 13.3 SECONDS (11.0 - 15.5) INR 1.00 (0.93 - 1.23) PTT 29.0 SECONDS (24.8 - 36.7) \\BLDo\\INR INTERPRETATION\\BLDx\\ Therapeutic range for Coumadin and related oral anticoagulants. -International Normalized Ratio (INR): 2.0 - 3.0 for Venous Thrombosis, Pulmonary Embolus, Tissue heart valves, Acute VT Atrial Fibrillation, Valvular heart disease and recurrent Systemic Embolism. -International Normalized Ratio (INR): 2.5 - 3.5 for Mechanical Prosthetic valve. Troponin-T: (HUSSEIN: 01/29/2020 06:17) ( NjgRcvd 01/29/2020 06:47) Final results Test Result Flag [...] NEGATIVE (NORMAL: NEGAT { KIT LOT # [id number] ){ KIT EXP DATE 01.20.21 ){ PROCEDURAL [...] unremarkable. 10 Clinical Report - Physicians/Mid Levels [facility] Emergency Department [address] [place] [address] Phone #: ext- [phone] 01/29/2020 06:00 Patient: NERY WAN Sex: F : 1990 Age: 29y Labs are unremarkable. Pt. wants to be transferred to [facility], but she has apparently been evaluated and discharged from there recently. I will speak to Neurology at [facility] and get their opinion. 11:16 Jan 29 2020. Pt. was accepted for transfer to [place] ED by Dr. Cronin at 10:45AM. Pt. [...] to transfer explained to patient. Transferred to [facility]. Summary of care (CCDA) provided to transport team, EMS, patient, family and transfer facility via paper and digital media. 10:45 Jan 29 2020 Transfer to [facility] by ambulance as per Dr. Cronin [...] rce(s) Supporting Document(s) ID Date Data Source [id number] 01/29/2020 06:59:00 [place] [address] RESPIRATORY CARE REPORT ==== ---------NAME------- NUMBER SEX AGE ADMIT DISC. XRAY# F/C [id number] Wisdom [id number] F 29 01/29/20 01/29/20 [id number] XBE E/R DATE OF : 1990 M/R# [id number] #: [id number] TR-07 LOCATION: EKG [id number] COMPLETE:01/29/20 0 8:16 [facility] [id number] PHYSICIAN: WEI BRISCOE Name Value Range Interpretation Code Description Data Corrie rce(s) Supporting Document(s) ID Date Data Source [id number] 01/29/2020 08:51:00 AM EDT [facility] Name Value Range Interpretation Code Description Data [facility](s) Supporting Document(s) DRUG SCREEN URINE [facility] URINE DRUG SCREEN Amphetamine [Presence] in Urine by Screen method NEGATIVE NORMAL: N EGATIVE [facility] BARBITURATES NEGATIVE NORMAL: NEGATIVE [facility] BENZO NEGATIVE NORMAL: NEGATIVE [facility] COCAINE NEGATIVE NORMAL: NEGATIVE [facility] Tetrahydrocannabinol [Presence] in Urine NEGATIVE NORMAL: NEGATIVE [facility] OPIATES NEGATIVE NORMAL: NEGATIVE [facility] Phencyclidine [Presence] in Urine by Screen method NEGATIVE NOR MAL: NEGATIVE [facility] \\BLDo\\URINE DRUG SCR EEN INTERPRETATION\\BLDx\\ THE CUTOFFF LEVELS FOR DETECTION ARE FOLLOWS: AMPHETAMINES 1000 ng/ml BARBITUARATES 200 ng/ml BENZODIAZEPINES 100 ng/ml THC 50 ng/ml PHENCYCLIDINE 25 ng/ml OPIATES 300 ng/ml COCAINE 300 ng/ml ALL POSITIVES ARE CONSIDERED PRESUMPTIVE POSITIVE CONFIRMATION WILL BE PERFORMED AT PHYSICIAN REQUEST. ID Date Data Source [id number] 01/29/2020 08:42:00 AM EDT [facility] Name Value Range Interpretation Code Description Data [facility](s) Supporting Document(s) [facility] yellow NORMAL: Yellow [facility] CLARITY clear NORMAL: Clear [facility] Specific gravity of Urine by Test strip 1.005 1.001 - 1.030 [facility] pH 7 5 - 9 [facility] Glucose [Mass/volume] in Urine by Test strip NORM NORMAL: Negat [facility] Bilirubin.total [Presence] in Urine by Test strip NEG NORMAL: Negative [facility] Ketones [Presence] in Urine by Test strip 5 NORMAL: Negative [facility] Protein [Mass/volume] in Urine by Test strip NEG NORMAL: Negat [facility] Nitrite [Presence] in Urine by Test strip NEG NORMAL: Negative [facility] BLOOD NEG NORMAL: Negative [facility] Leukocyte esterase [Presence] in Urine by Test strip NEG STORMY L: Negative [facility] Urobilinogen [Mass/volume] in Urine by Test strip NOR less sapphire n 1.0 mg/dL [facility] MICROSCOPIC Not Indicate [facility] ID Date Data Source [id number] 01/29/2020 07:41:00 AM EDT [facility] Name Value Range Interpretation Code Description Data Corrie rce(s) Supporting Document(s) HCG SERUM QUAL NEGATIVE NORMAL: NEGATIVE [facility] HCG SERUM QL REENTER NEGATIVE [facility]AL: [id number] ){ KIT EXP DATE 01.20.21 ){ PROCEDURAL CONTROL VALID ) ID Date Data Source [id number] 01/29/2020 06:50:00 AM EDT [facility] Name Value Range Interpretation Code Description Data Corrie rce(s) Supporting Document(s) CBC W/AUTOMATED DIFF [facility] COMPLETE BLOOD COUNT Leukocytes [#/volume] in Blood by Automated count 6.7 10^3/uL 4.2 - 1 1.0 [facility] Erythrocytes [#/volume] in Blood by Automated count 4.35 10^6/uL 4. 20 - 5.40 [facility] Hemoglobin [Mass/volume] in Blood 11.8 g/dL 12.0 - 16.0 L [facility] Hematocrit [Volume Fraction] of Blood by Automated count 36.4 % 3 7.0 - 47.0 L [facility] Erythrocyte mean corpuscular volume [Entitic volume] by Auto mated count 83.7 fL 81.0 - 101 [facility] Erythrocyte mean corpuscular hemoglobin [Entitic mass] by Automated count 27.1 pg 27.0 - 34.0 [facility] Erythrocyte mean corpuscular hemoglobin concentration [Mass/volume] by Automated count 32.4 g/dL 31.0 - 36.0 [facility] Erythrocyte distribution width [Ratio] by Automated count 13.9 % 11.5 - 14.5 [facility] Platelets [#/volume] in Blood by Automated count 189 10^3/uL 150 - 45 0 [facility] Platelet mean volume [Entitic volume] in Blood by Automated count 9.6 fL 7.4 - 10.4 [facility] Neutrophils/100 leukocytes in Blood by Automated count 78.6 % 37. 0 - 80.0 [facility] Lymphocytes/100 leukocytes in Blood by Manual count 14.9 % 25.0 - 40.0 L [facility] Monocytes/100 leukocytes in Blood by Automated count 5.7 % 3.0 - 8.0 [facility] Eosinophils/100 leukocytes in Blood by Automated count 0.3 % 0.0 - 7.0 [facility] Basophils/100 leukocytes in Blood by Automated count 0.3 % 0.0 - 2.5 [facility] %IG 0.2 % 0.0 - 0.0 H [facility] %NRBC 0.0 % 0.0 - 0.0 [facility] al Neutrophils [#/volume] in Blood by Automated count 5.23 10^3/uL 2.00 - 6.90 [facility] Lymphocytes [#/volume] in Blood by Automated count 0.99 10^3/uL 0.60 - 3.40 [facility] Monocytes [#/volume] in Blood by Automated count 0.38 10^3/uL 0.00 - 0.90 [facility] Eosinophils [#/volume] in Blood by Automated count 0.02 10^3/uL 0.00 - 0.70 [facility] Basophils [#/volume] in Blood by Automated count 0.02 10^3/uL 0.00 - 0.20 [facility] #IG 0.01 10^3/uL 0.00 - 0.10 [facility] ospital #NRBC 0.00 10^3/uL 0.00 - 0.00 [facility] MANUAL DIFF NOT INDICATED [facility] RBC MORPH NOT INDICATED [facility] ID Date Data Source [id number] 01/29/2020 06:49:00 AM EDT [facility] Name Value Range Interpretation Code Description Data Corrie rce(s) Supporting Document(s) Prothrombin time (PT) 13.3 SECONDS 11.0 - 15.5 [facility] INR in Platelet poor plasma by Coagulation assay 1.00 0.93 - 1. 23 [facility] aPTT in Blood by Coagulation assay 29.0 SECONDS 24.8 - 36.7 [facility] \\BLDo\\INR INTERPRETATION\\BLDx\\ Therapeutic range for Coumadin and related oral anticoagulants. - International Normalized Ratio (INR): 2.0 - 3.0 for Venous Thrombosis, Pulmonary Embolus, Tissue heart valves, Acute [place] Atrial Fibrillation, Valvular heart disease and recurrent Systemic Embolism. - International Normalized Ratio (INR): 2.5 - 3.5 for Mechanical Prosthetic valve. ID Date Data Source [id number] 01/29/2020 06:47:00 AM EDT [facility] Name Value Range Interpretation Code Description Data Corrie rce(s) Supporting Document(s) COMPREHENSIVE METABOLIC PANEL [facility] COMPREHENSIVE METABOLIC PANEL Sodium [Moles/volume] in Serum or Plasma 140 mEq/L 134 - 153 [facility] Potassium [Moles/volume] in Serum or Plasma 4.0 mEq/L 3.6 - 5.0 [facility] Chloride [Moles/volume] in Serum or Plasma 107 mEq/L 98 - 107 [facility] Carbon dioxide, total [Moles/volume] in Serum or Plasma 24 MEQ/L 22 - 30 [facility] Glucose [Mass/volume] in Serum or Plasma 112 MG/DL 65 - 110 H [facility] BUN 8 MG/DL 7 - 21 [facility] Creatinine [Mass/volume] in Serum or Plasma 0.6 MG/DL 0.7 - 1.5 L [facility] BUN/CREAT 13 8 - 27 [facility] Protein [Mass/volume] in Serum or Plasma 6.6 G/DL 6.3 - 8.2 [facility] Albumin [Mass/volume] in Serum or Plasma 4.5 G/DL 3.9 - 5.0 [facility] Globulin [Mass/volume] in Serum by calculation 2.1 GM/DL 2.4 - 3.2 L [facility] A/G RATIO 2.1 0.8 - 2.0 H [facility] Calcium [Mass/volume] in Serum or Plasma 9.1 MG/DL 8.4 - 10.2 [facility] Bilirubin.total [Mass/volume] in Serum or Plasma <0.7 MG/DL 0.2 - 1.3 [facility] Alkaline phosphatase [Enzymatic activity/volume] in Serum or Plasma 57 U/L 38 - 126 [facility] Aspartate aminotransferase [Enzymatic activity/volume] in Serum or Plasma 12 U/L 5 - 40 [facility] Alanine aminotransferase [Enzymatic activity/volume] in Seru m or Plasma 9 U/L 7 - 56 [facility] Anion gap 3 in Serum or Plasma 9.0 mmol/L 8.0 - 16.0 [facility] AGE 29 yrs [facility] NON-AA GFR >60 mL/min [facility] AFR AMER GFR >60 mL/min [facility] Male GFR In terprentation 20-49 [...] >32 mL/min Normal ID Date Data Source [id number] 01/29/2020 06:47:00 AM EDT [facility] Name Value Range Interpretation Code Description Data Corrie rce(s) Supporting Document(s) TROPONIN T <0.01 NG/ML 0.00 - 0.10 [facility] TROPONIN T0.1 ng/ml Recommended as the c linical threshold value forTroponin T. ID Date Data Source [id number] 01/29/2020 06:46:00 AM EDT [facility] Name Value Range Interpretation Code Description Data Corrie rce(s) Supporting Document(s) Magnesium [Mass/volume] in Serum or Plasma 1.9 MG/DL 1.7 - 2.2 [facility] ID Date Data Source [id number] 01/28/2020 07:27:58 PM EDT [facility] Name Value Range Interpretation Code Description Data Corrie rce(s) Supporting Document(s) Progress Note [facility] EYRPNt7gMuXVEsGk78/UUCpfVGCao0HtYZzsLVu1KIjhXPRvO2SnPJR1eB9sAOJ3WYxGZtHsTsBsUQTq lbm [file] CLi55nJ/3/[place]+xcs+X3u1pVyr+GUysrEgE8r0nFpYhDLa3br5RyhoFRaFbNZS80/r/6cW5Tj2ddyhkxJ [file] CmtNVD8XUvFLCJ/MAP/T+manager analytical+5//SvOoYZV7A63lYcd [file] AgICAgICAgICAgICAgICAgICAgICAgICAgICAgICAg CUHhDSNaAWSdANGtCTAaUKYoKHGhAEGfQALhNHTrUITmVQAwUSUwIT6HFEYwHTMjOGFoNBHwHWPqWJNv ICAgICAgICAgICAgICAgICAgICAgICAgICAgICAgICAgICAgICAgICAgICAgICAgICAgICAgICAgICAg YEOcELGwLKRqBCUoEZQaEFZgTCLtVZ6GVHYhMIRhSU AgICAgICAgICAgICAgICAgICAgICAgICAgICAgICAgICAgICAgICAgICAgICAgICAgICAgICAgICAgIC YiBHEvFEZwGVSvZRJhQBNnLNIsMKBoTSToKQFcHLKvCH6MRJMuSAGhAMWwQPCpEKWaYPGcRNUzYOYrTC AgICAgICAgICAgICAgICAgICAgICAgICAgICAgICAg DXOkSZHgNALkYOHcMJZlMCBoQGFvUMYbYOClNTJmLXArEWWwNGJcPSThQX8CWAGpTOYxLOHcIWUrWHXq ICAgICAgICAgICAgICAgICAgICAgICAgICAgICAgICAgICAgICAgICAgICAgICAgICAgICAgICAgICAg MLZyXXXrAPEqTQJqZYGvKYBaMYWxKVVjZH5JSYOfUZ AgICAgICAgICAgICAgICAgICAgICAgICAgICAgICAgICAgICAgICAgICAgICAgICAgICAgICAgICAgIC ZkPVXpFMIjFXYbXYMaJYIzEJVoIOTqUYCdYHCxWRUvKJJhWP8AFYAeNFEtYTUeOJBsNSWlBADkEOFbCM AgICAgICAgICAgICAgICAgICAgICAgICAgICAgICAg MBGbHCFiVFQyVYIlZQEeAYCzTPUlXIYdOUNkWMBlGBBmDRBxYBOqIOXmHBCmFA4ESJXbVYTjDHUnALYz ICAgICAgICAgICAgICAgICAgICAgICAgICAgICAgICAgICAgICAgICAgICAgICAgICAgICAgICAgICAg WPCkKTYrHGUaVADzNTMeFJUiDMJpGOZrQGAiJE8UNW AgICAgICAgICAgICAgICAgICAgICAgICAgICAgICAgICAgICAgICAgICAgICAgICAgICAgICAgICAgIC PuMBQlGZAdZASkWZAoTODpYHLpJGLgNLVlZDJaWIDnLRKiOQQxWJ3OWECwBUCiHHOqHGPpMSZuJSXrIN AgICAgICAgICAgICAgICAgICAgICAgICAgICAgICAg TRGhUUWaXANlZAFoRKWgASOuOVGgLZHeYWXhPPPjIUBoNCXkUUVrHYVmQZWjMHCvXE1YDZ58wNHoj8D5 NANwBL7ybsg/Kj6AZLmehrLciRCuTQ3GJxGbNA6ygi0DEoZnGC6hox2HALtCLmViC5W6hJZtLJRcQUNO GuCrZ45bQJoqIb29IEnsYAEbNvBlDHt6Wq4CZeXaM3 gvDPAbIwE6KBKxCgF6JZKuSqD5UMLqFqBbIZSeDVLeTWIkEZLRNHT0NDEqOlZpXiQgEDMmCVwpEUCTKU EbFGDpBeEiFhLiMYJwApWrZLGYGP1CSvEbR2XjvD18FSCqZJw+Po6TGE9mo7LaXHg3MbCeXO9fro0ZAS mYNyZcQ3VhldQ2CVEhXSZzIv3VQVRbXUFotVM7UwCh DHXUSiAzV6BfpP88NRIVQt3+YUsapiTxEraYUzIsXJQrb7NtHTd9CA8PBOFdWMt2fBCfBPZnA2Hnh4Sa Bb07VWWoZdcjIIdnjrwbgU1iGHbgb5BwSK0NAJG8ETKeRvVnTwDfRyYfKNL5VxLuZV3nFQlmVQ6HTHE9 KBkkXZWfBIAkQ7vQNiXaJIPiMTKpoGysJQ0NAuDvK7 VxmhEruMC0XvPoUZWHGa3+XOxoccRcObxYYeX3LNSas2XfTGj2ZK5HPDVyOZrfXP3YFPDooH5oITjsIT 7UYgT4SFKeGFELCdZxA63xpJUjKUf7B0UwIoWdPVYkFocgPHFwDNdyQpIoHZXsJgXmKUzfWR0+ID4+DQ quUQ7CQJbumnKrKCBlZf5MTAXfNXMjRQ6tCFNuFWBw V1O1nPcnFYPFZwZjM0kxigzoPQ0vNGSeH409mVoyxsFzFQZdXJEfXr1FIJXhVZD9FKOyxIEzUOHnHLDQ BLfmXF4EjYRuOMF0uM7mKVgmFWPuLUHiI0oNItGmfIdyLQ81kHfrmhKmcPUpZVj+Yt1GNK0uh7WeTKd1 xoWhDLotXXE4WYytDYBfHDUhBGMsRLF3PUB8CQXRJi LtNMRmURBjAOixAFAiXRVgig0XKOOxCAG6HVF3KyGuHXOgYZElUVerFMWwBLFxQGH0IXAzBXJeQB3ULa XuVBJxFWXxHZvdDXOfLPZaav4RVLVdINVmGWI9BGJvKQThMWQdSJutCSXyDFW8SwuaKVIdVUTrTF5TEc IwUHUaXWt8MuJyGEZsEZWovh3UCFCcOQJeXAIcYxAb CNNdQNQbYDufSPAfQCBgANBqSXBaNWLyYK4ZSeVqJWUnTZDvLUQqPMRaWOEjbx2JOSEuAYStWJa1SXFm MHOyRGJaRCavHUEpKQT7CFsyPESuRLTsLG9WOhGjXGRfGCy5NyNwFQAmQRHout9TDORsETNqWvNaDHQs UHXgLUSoBGsxRROgLQLdBOvyMJDzBILrGJ7JTiFlOR SuZyFhHthmSBDqXGCvyr1SDRClEQIgFlUtEBHmXFArRGPkRFljATGwNGVcHDD4YCFlTBXkMK9CLxIeEB RrZlApMDjgUPLfJUIdiv5ZOMFhPFJdBuT9QEJdTQMgRDQeFXefXXWyHHUqKsS5RWVkTKYiNU5YDdSiRR WlXuO0GQJhBOUiYTErut9DINOsGTItDVRtYlNcIAGl TFQzCDmpDKKeZKU8ZtAzDMDiVFFiWS2WGaYpXXMfOcArOqCqNLAqXHUaum1HOVToYEIbDST5YJWuFSFo HGChPRbxZUKrHCF0CGV9OVPsWXZwHG7TUzZeANUcScN4PfTlWPIbFYIokl6ROFDcDPBuBggmRWGhEMMw UQNgXEvtHFGkRGS5FrZ4ALGhOMXnBI8WZqFyTBAtIh w1PpWhKDEcIYVidk6HMLDxGENhUIN0QKPjDZIpEKGbGPenPTLpGGX5UuHvKHItQSYrXM9AVzCwDUVvYA vnMHOpTVSvOVAzti4DITWnATV1GJHtQzJpXVLpNQNyTOfgHYOfRKF0YOZ2VAWjWNVqSJ8VWiOzJAQcRf OpIOCjRQEsCYRemw1APVQoLTI0WIh6YWDsGCWfOGBm YCbqIZQcISJoXLbgGNFiPNIrPD9ELhMyGBRtToXhYdEvNMWcTJGqas0TQPXeEGR3SCq5JmVtFIWsPLVm KAmhIJDnOYFlNle3FSSrRRWcEC5FSrMwJRWhIxGuOMBjYEGaFZLgtb6HTDCcUFH5ZvBvWYPnWHYfJLFt CKo9coBtxXBvKFa2NO5AO2BwmbWwWBBVBg3Ww702HV S2FXDfVc4CQ1jaCn6uCAZbOFMYUt4TCBl6GIJxMLLkFtL3XON7Ezw3DCI5VCLdOEX9BrJzWPBzWTB+ID tiQ7M6HJE6Hgj1FnLyLNReISYkYCGfKhWeEVX9XZR7Lp5qCPQAAf8+ZYfsnAXufLskFKQKNlBwIgB5RO akOILSFf9S ID Date Data Source FREE T4 & TSH PANEL 01/21/2020 07:39:50 AM EDT eCW1 ([facility]) Name Value Range Interpretation Code Description Data Corrie rce(s) Supporting Document(s) 2.200 THYROID STIMULATING HORMONE [facility]C [facility] 1.01 FREE T4 eCW1 ([facility]) ID Date Data Source [id number] 01/18/2020 08:29:15 AM EDT [facility] Name Value Range Interpretation Code Description Data Corrie rce(s) Supporting Document(s) Progress Note [facility] SLNCFf7yGzYRZxRu67/SEHodTIVrm9CtXNtcNWe3MLfiAVGyG6RfYGE5xB6zWZI7ANoPYbRdMqVzRXGb lbm [file] IST9RTydUUO8CDGzFkWwZE7FSo4BWaA6DZW7qMJyYb1DMNifDzWRXhLwWW4RXXm= ID Date Data Source [id number] 01/18/2020 08:29:10 AM EDT [facility] Name Value Range Interpretation Code Description Data Corrie rce(s) Supporting Document(s) Progress Note [facility] JREOFn0kJjBUAsKr78/FOQitFUJii9MiCCfqDSd0JYijLVCwR5BgNOI8zU5oYAA1ZBfYCnBiQcKmBYQt lbm [file] porwuiB5+OAFl1KgiBsaT2QuE6lpzJrta66uR00oic/7CsS/manager analytical/1zAX40QN3V7q0ZNoO4cA8X7Cyj9oL XcTOFXveLprM9zhv+DsbaeWMf6zT1kiYE6j/C2teuo rDOqw0La7tvUezV2wlDUU3R8UKt8ltjCaU+SZYQ5Pht1p1ceeCODx3hgFjcBBkLRbxxXr2NnQ5zZwli+ IS0ZmKZu2r2N8C7aD/+bZiodz4rHSpexRWdq6MoK/6ebKN6jI7E6O12tL5KjF3wFL/tuxwqjQvchT4Qo /2yU/8hhzH2ssdGoWt8tASkPQ48a6fa+hCy4lPNcGg [facility]+uUVjKoZt+aw2xDw/r2W7TzVV+0loz4iuOv4uS4xzATaoHDGVFY7yOQYjMJPSOvhATxeo1IaP+7 [file] fD3ty13OZ67esJf47jnv9mgy1d7zTn2CbuFf7kLb7GU/HF9ucxtzF5/XvR/tCBwrUMpG+Meléndez+Yvlm2WP [file] AgICAgICAgICAgICAgICAgICAgICAgICAgICAgICAgICAgICAgICAgICAgICAgICAgICAgICAgICAgIC AgICAgICAgICAgICAgICAgICAgICANCiAgICAgICAg ICAgICAgICAgICAgICAgICAgICAgICAgICAgICAgICAgICAgICAgICAgICAgICAgICAgICAgICAgICAg ICAgICAgICAgICAgICAgICAgICAgICAgICAgICAgICANCiAgICAgICAgICAgICAgICAgICAgICAgICAg ICAgICAgICAgICAgICAgICAgICAgICAgICAgICAgIC AgICAgICAgICAgICAgICAgICAgICAgICAgICAgICAgICAgICAgICAgICANCiAgICAgICAgICAgICAgIC AgICAgICAgICAgICAgICAgICAgICAgICAgICAgICAgICAgICAgICAgICAgICAgICAgICAgICAgICAgIC AgICAgICAgICAgICAgICAgICAgICAgICANCiAgICAg ICAgICAgICAgICAgICAgICAgICAgICAgICAgICAgICAgICAgICAgICAgICAgICAgICAgICAgICAgICAg ICAgICAgICAgICAgICAgICAgICAgICAgICAgICAgICAgICANCiAgICAgICAgICAgICAgICAgICAgICAg ICAgICAgICAgICAgICAgICAgICAgICAgICAgICAgIC AgICAgICAgICAgICAgICAgICAgICAgICAgICAgICAgICAgICAgICAgICAgICANCiAgICAgICAgICAgIC AgICAgICAgICAgICAgICAgICAgICAgICAgICAgICAgICAgICAgICAgICAgICAgICAgICAgICAgICAgIC AgICAgICAgICAgICAgICAgICAgICAgICAgICANCiAg ICAgICAgICAgICAgICAgICAgICAgICAgICAgICAgICAgICAgICAgICAgICAgICAgICAgICAgICAgICAg ICAgICAgICAgICAgICAgICAgICAgICAgICAgICAgICAgICAgICANCiAgICAgICAgICAgICAgICAgICAg ICAgICAgICAgICAgICAgICAgICAgICAgICAgICAgIC AgICAgICAgICAgICAgICAgICAgICAgICAgICAgICAgICAgICAgICAgICAgICAgICANCiAgICAgICAgIC AgICAgICAgICAgICAgICAgICAgICAgICAgICAgICAgICAgICAgICAgICAgICAgICAgICAgICAgICAgIC AgICAgICAgICAgICAgICAgICAgICAgICAgICAgICAN Cjw/uGXnQ5zyvVMcmhQ1A8weBw2TTl4HYI2yo2NdRJXhYLglfnPsFneUArRgOIMsZomYFdl4ZLtjNP3R aYFwA7DbB5WdOHmnAM0TOUQmEHHiqMMkCSIcNRQgJxK9DHPmTMnbBU8ChXQiXHtqIGKyBEElNyZiVDVx OSAwIFIgMTEgMCBSIDEzIDAgUiAxNSAwIFIgMTcgMC DSTU1NArPkP8HciQ06XFtFVh1+QBfoqaXmKlwUHvB2TRZgw4YpLHo7SW5FYXHhGjnha4ZcZvSeQUSJHD zdJM4LPHV5IEB6ZNXmLz7NYRMqG970giEwZU8ZRo0BQiWpPG1ewa1QJqMcFPKgBfcTGva1YPpiZM6OhU UoMOuBnv0shsGoohBHp0RrzxIxmLUQEJRzUVH4bp7r qtrdBYFhYBZyFE4aNC8sNWDcAEN6LtGtIZGDCV1QHRMgNLXvuMOzXLTtDHTYMA5SNIorGAC4NFOqkcLp dLFvXJizYM5VHXXjsvRpMrClERDQKMz+Qd2UKU0sa1XqDNmwRaZiRS1hdl7VNMgABmNwP7P2wAPwD9I9 OUckRs9AEOHaOQUeLiAgRGJJMSmpTA0IWI5aibJ5KI 0AsFVgBOMcRDRpcJLvZUp7W51hfGNbDOduIO9BLNX+Sadie+Pm1RQKNaPCRuVYDtZhZiWSMIKlKnO2DbB8 MXm2UyC4BbHI13aRsnbvZmRSrvIQ4PHQ9zRAAoIDFMUS3OvAIfiY0gjdRzGABuOXSTSgOeU39xgCOgVX CqEYCnEYRxVi6WRNAzN0MymlGfbUoykpBoCBKpVHET LN1JHIfluyLwjBTnxDjiLJ08tCqwNQ4ZKz1JOfOkZP2hob7TdSVgJq9WBNBpCe3NPUYeCSBnQOJmZNN4 BFMmKnFtHSaePGIxNAMsMRD5JNOlEMGdNH8YRsDmBLPqPaY8MVVkGHVmREGesn0SKDGvRPJqIHVrZOCz LAYpBNFeBJhwFYHkYOPrLPD0LGBuEEElCR0ACgFtHI FyUBR3BSOdYYRfTPXsky1PAJYjEFZgGmy7EtZfSCHwSPZmVLzcCMLzDMA8MKD3SPBsTROqZJ5OYzSyZA RmDFsnJsBrOUUbVYDyzo6JDKQoXQGeCVLmMNJfVTXtVDKqVUljNVTlFSRoSoM4TFLiVSJwFT4FJeOuWL EwABJ4OGVrNOJlLCWane6VKJPeAWLxQco4EGUlJTVc XNPuUArqUQOwIQN0UWA0WCKaYYFdHC2JPuJyZWHoWCN8SgBfOGUiUKGnxp6ATBQcEKEfTTWtKBPaLNZo DXGgIGbkMGYxEZX4BjWsKDNwGKLxXD6PYgKrOZPbIAd8LPgsXOLsSHMzpy0QWBMhDXXuMKLfRTEnBWRn XRNjEYyfCUGgLDNoNEI0ZBVcZKUoHU3YNmKjKTAaTq DiWtLePMRiFWQhae5AKIFaXLVdJOD3NZJyOLIqBTTkTKxnONSuPNUzYVO0SGEhAALkAG6UMeNzVANaCk B7RGFlCIPcHMEynt9SRJWnUDVoAzy0JWSfQPHaBCJhULgqBEPbXKS5YhI5EZJwYKFbYN5YNeYoXCMzFy A9VPnhCUVwDHArrk5JDQClAAPeQBo7PTIjNEPbKMFj DPdjGEFvUTG4SNG0WMPrNYGzKI8AJxKmUBLeWkTtODTtSUQaSRQnri0OAJEkLHAwVeP3PLIaOUYvTRCf UAjnVJIoMGM1Fof5IIVoJQIdSS9XNjQqUQFpHmK2XnJbEZCrCNWiqj0AAOVoIEJwHcu8YJXfSXIuUXKo CEsfBKEyCEA1VpX3CEPmGGKkJE3MUjPnAIGnIyq0Al PqIPGeFKAirk4NQBLrAMEgPFS5CfQsPXNmXSCiQEi9hnDnkDAhAYb2QE1MJ5GxbdMyFqlPAa1Xt603QF I3OPCeBg2FS6lpDb3aEDDmANRJIy5SHOs1JlE5CskqCOBrNOqoRnU0DHTnXCS3TaAbZCD5VBO1EbA+ID b9XCclH2CwUyEaBCQhAEIpXcI2RgM1TdR9RJB2NEs1 SJ1eZVCUIy6+ZMjkvYJssAspNPELLbX1TSFyXFwaLFHNZw5V ID Date Data Source [id number] 01/16/2020 01:09:59 AM EDT [facility] Name Value Range Interpretation Code Description Data Corrie rce(s) Supporting Document(s) ED Provider Note [facility] YXYHVs5iDsKGZzGn54/GBZalPGGnm4PgCIzjRZd8CUutADJeD7IlPZQ5cY6fQXC1XNxZVqAtWzQzSSGy lbm [file] i57oGEgC66fC6bpSrEo59rma6mQ74Wk1BmKN6BZxairjza8zlx2DueL3te/35v54H51DlWuaqdGB+[employer] [file] VBJICbkONhNJJLl7LrcpRwfZSLJJCtWYwhYFZLriSd gDukBy1vCSJwYI8rLn3zQKSrEBX1EgP2KJRSBI2SYDMhDMWfhHSsHGF8RTQhFfKyAPxoCYQcRdU3HO38 xBymHW5NKSGyAGUkFY31IRRnLQFxNf2YYXTqQFRqeeI0LEPxJAZURpDvD40awSGcLwFeYVKCUHd+Pg0K WR2it1ExCTb2AsYyFC3hrj0NXLmCQjVgN7CihSxgYH QHKG6xiFKkIYH5PIjcnRKqUXQlpORdl8fcdvjiSr6zEZHvQM8gId5iLTMaMCR1TbV1YREFLG2VGBFbFF AoyEYjMWB0WDNqOcRvIVlvRZNiPMB4EO54xKudPB7IBIFkVVGmSH94FXEuDCNqSo7YEFWqWHGjfzH1FR AwIFINCj4+UFjwdgHqFbzFApGfIWJxy5MpROx8IT6E PVOhPEwnBU2FLUYlzN8eQGfjIZ1JIgN9ZEMtOBUZXkGpV68vbCXnJBi1F3RrUuWtXVKbStboLSHqENme TmFtZXMgWyBdDQogID4+ID4+XWpoAD0NRNaxelKfOKUkNe0OPPEaHQBwOZ1bZXChFXRvM5E8zLazWSYZ UcZhD0bnsqiyNS5yAOVdD104kXcjatMlZRWdCFLpUo 0NGJScUJE6HXMrhWLuYLRlGQRULUckHE6OsGGzTTO1kH6mCLssGOVeRZSrG1sXEtIqzLugWY40tMlmwk VsbCBdDQo+Rp0LBV1ag7MnEKc7fcHoIGupCTH2VVceNAEmCTRlTCRnSTS4FIO3WVWPIcQhKLUtBLPeBB veKLHpQSDkca3KKICsTJV8KSc7FOUuDFPhXXJiOXyk AWAtUDgaLlLxSUKbINSwZZ4DQcXlOSLeGJWiOBchDOUdOIEpka4KAMVcGVLnGlZ0DyUfVZFmXPHjIWsg ADAkNEPpMnNhJNHsBRUtGY7VRpAnZOOfNZO5YbTnTYHgBIImxj1TIGJjUPKkAiSdBsVkETQoKPDbRFhw GYQeGCH4YBAyUKDmMYAfMM2QOsZyXDNhUNicMPLaYK EwCSMdkh8ACJLqDKOdQiQ7MxKeMOGxUTLhLZxcWQAmNYHmOZP1ISBlRVUnJS9TDwQkMLGcWGK6FZedGK DsVPNaux2RTAKoFCRlYBbpCQKgPYMaQRCpRCgdAEXjJNJ8ZhUaIXNzHXHlCJ3BIlZmMKWxLYo6OytoJS HkPKAyqn9WLOYpHINmBZkpTSEnCMOnYFAsKJgjBLCa OOJzPIG5RJBbSIDcNH4UOeMhPSWiEdCuULXaOTLjIFFitw5DJKPpGFLqXiQ5HlUxZZVrVXPyNYaoSMNg TQO7MZXwYCSnKZWhSH2ZRhGzNKNkYkThGHutFFEkVLTuyx8YZUDwFHMiSPc3RuUrIIKeKUCoEHsbKANi ISP9TVk5ZQOnYIJiME1TLuMuEYOhVsd2HUfgJQCqPS Kqit8DCKTuBVSvYQM4AVTiDGJlMQBcDMrtPCAcWYZrLcH9OBEtWCZvFL2XUeIaELCuIKS5HhKqGLVoTB Oqjj7HSNQcVLT5YlW8UGSmRRWcGYMnCJkeCHReLAHhGTE5KCNqFSRjNZ4BRaWsORCfIOK2UkkoLDGtXI Vlyp8ILZMoYEF7YCPnJOFdQGDvRFNrEAxrXOAxIDQ3 SDD9UBQcBKCtGK8PPvQmRYEyLCG2BiVyHYHbXCZmvy4WEVTiXVX2NRm1VEGtGLMrRSZwKTtmRYPwXTA5 AQN6QZBzMDHmUC2KUwFcPTNhVqA3LjStKOSaVVVley1WSJSkRPP1XgR6NkAvXYBkDRYiEIjrBQWeXDH1 FLcxTNRlCZQcNG5PFxAgMRMuMtasJoOrBUTkSHRbkw 8WFLUqAEO0TtO2CZZsBQBpXOJsHYozGJIbKGH0HWF2SSAfNLIrRF1CDjGdKZHvEnerDGScRZDzEFGjzh 9ERINyTBF0RIG8NfEkEHRnZVRvZRvdDRZdQJs6VCN4NKZlLOCyZF2IQzBvIAAbVEXwDtDoXJUjVFDnda 6MWKBvKRG3YDA0TvUsMAJuQCIwHWhbQJShDHecNxxd QDNdEFBqWM5PRyFkZMJwZGH4KdsgBUZzZSFndt5TLNAhRWA4FIV8HEElQUOdHTYmVJmcCIZkLTjlEvuk OVVdJRSsAI5LZdIlNCEcDRT2UhJxZJPaGZOtkw3EDLWnMAO4QgXqYiHcZKKvLTNnMSwbBGGcSPfvRwI6 GALiQODnEC7FMhPnYNJlECY5KQzpUYHjZIYprm3RLK NxPHR9LuT6CHGdFSCoLCYnZCegGTFnUGziBbU3DRLcGZVbAH2KEdUqLAPaKQQ4RZMcXFLiGHJesc8RJA OpTIW9SUFjSHLtLBRjIIGhOLpcFFJcRZb9JzA5TNIySFAeRW4IHjAiZNMzHLR7NBSvYELkDLAnwa6VWW SjWQH3FKV4ADFnZXGaESTsEYlyKOFnQJo7RCC2SUIf RJZbNI1QZgGeCBohNZMOXor6ZPnmH2h9PPG7XY2LL8Fzd0HpYmDnZBWOZJxaTK7omuHjHXDgIq9GJ8sE YilvSfN3PKUqRJe5AXF3PRcmN3GkS0U1BZo8Q3X9BgXwHL0cXAUzNIW0SwPhFrY7XuJ5HWTlLEHkTau8 JMEgGpe2JsG0AnLqNA1BAa8DIjL1XXB9eANnEy6KYZAgUvGJLaPfNL5FQPs= ID Date Data Source [id number] 01/14/2020 08:03:12 PM EDT [facility] Name Value Range Interpretation Code Description Data Corrie rce(s) Supporting Document(s) Discharge Summary [facility] UMAJYy1wPnZQJcEz58/XXYidJXZkd1LrJOcbMBi6CNkcXIFkW9PhPVW2bX0iBLF8URtIXzVgNgAkFZX0 lbm [file] NsaUsQoULbBLm2Po/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/NhpLOt+MXH102ERAdcrWg [file] ICAgICAgICAgICAgICAgICAgICAgICAgICAgICAgICAgICAgICAgICAgICAgICAgICAgICAgICAgICAg ICAgICAgICAgICAgICAgICAgICAgICAgICANCiAgICAgICAgICAgICAgICAgICAgICAgICAgICAgICAg ICAgICAgICAgICAgICAgICAgICAgICAgICAgICAgIC AgICAgICAgICAgICAgICAgICAgICAgICAgICAgICAgICAgICANCiAgICAgICAgICAgICAgICAgICAgIC AgICAgICAgICAgICAgICAgICAgICAgICAgICAgICAgICAgICAgICAgICAgICAgICAgICAgICAgICAgIC AgICAgICAgICAgICAgICAgICANCiAgICAgICAgICAg ICAgICAgICAgICAgICAgICAgICAgICAgICAgICAgICAgICAgICAgICAgICAgICAgICAgICAgICAgICAg ICAgICAgICAgICAgICAgICAgICAgICAgICAgICANCiAgICAgICAgICAgICAgICAgICAgICAgICAgICAg ICAgICAgICAgICAgICAgICAgICAgICAgICAgICAgIC AgICAgICAgICAgICAgICAgICAgICAgICAgICAgICAgICAgICAgICANCiAgICAgICAgICAgICAgICAgIC AgICAgICAgICAgICAgICAgICAgICAgICAgICAgICAgICAgICAgICAgICAgICAgICAgICAgICAgICAgIC AgICAgICAgICAgICAgICAgICAgICANCiAgICAgICAg ICAgICAgICAgICAgICAgICAgICAgICAgICAgICAgICAgICAgICAgICAgICAgICAgICAgICAgICAgICAg ICAgICAgICAgICAgICAgICAgICAgICAgICAgICAgICANCiAgICAgICAgICAgICAgICAgICAgICAgICAg ICAgICAgICAgICAgICAgICAgICAgICAgICAgICAgIC AgICAgICAgICAgICAgICAgICAgICAgICAgICAgICAgICAgICAgICAgICANCiAgICAgICAgICAgICAgIC AgICAgICAgICAgICAgICAgICAgICAgICAgICAgICAgICAgICAgICAgICAgICAgICAgICAgICAgICAgIC AgICAgICAgICAgICAgICAgICAgICAgICANCiAgICAg ICAgICAgICAgICAgICAgICAgICAgICAgICAgICAgICAgICAgICAgICAgICAgICAgICAgICAgICAgICAg ICAgICAgICAgICAgICAgICAgICAgICAgICAgICAgICAgICANCjw/bBOmX2xjuGZjbkK1D6ytLi0ROp6E DT1hc3EaRIWoORwipkVaZirCPnTeQTJiHatJRgz2GI vwBJ4ZcADwM7YoI1MfCEklRA2VMYFcWFHdaKQeMBGdAUEiPkF5QNVmTJpgAY6DgKQcATyjBVAmOXLuIf TrDCAuRSJiABTxJIXzXZYAFTUaULDeLjJxUQmeZK2Yv9NbeSN5MZr+Uv4LIY9hj9DiFLxeGGRaLD7wqm 4BJWtYEzXlS8HqtmH1PONsOEKoBx0XJYFqOBDkrJTg PMZpBNQNQiOfX2FfzL88JRFHMt5+FPzwztEvHknYIsYhNODtx7XfANn0ZF9LMICcMDq1kTWrRTqnZ6lr wrstOFD4xK5csrzhVyvkEltyWGIFx6udOpmvQDLkFFJsOB9mTU7pCLFeEXM4VvPkXJRDGP2KSZQmRYZt eOYbWOQoPRZTUT7RPCylQRB2MGEnwbCsmRDtHAheRQ 9QYXJlbnQgMzAgMCBSDQo+Zu1MTH7za1McWMptMtByGV2efy9HZVvTZzBjD2M7zXLzS6I6AJsyCy8FNM JsIOAhNezyMDOHTAztIH6ABJ7gskC3US8YdMDeMIRlCFCtkPEhIEl9I68mxTIpWAmbFU1UKGR+Sadie+Pg 4YGAFaIYYpFHDiWeAeNOPDVkPuH4PsR8AUx5LaA9Pk WJ93uIcfvwIsBRjiYO7BUH5sDCFhWISXID1SqHWkuN1otdVuUTFyVQPRNeXbV18fdTHjLAHmWCX8YQGl An3AZXZsB3MoraDphUlppaKhBVFvMTAOGX2NWPjpviWkkQZpiYlzSP85zDjoUZ2VUw3WCgFjOJ1ngz2N lNBpDr1AAAGcDz3KOTHcMJRhLZEbDHL6BKTcPxNbZE vvTSUrHMYxATM2EMNnOMJcKM2JRmYlFQLbJgK6BwNrPSOtSHPjgt2CGAJaWRWmMnO9VBAzIXMdAURpZB kwGOOdXSHdCOW2NLIwJFMuSQ3HTeOoQAUfTQM6LUGlJTVfIOHfge6LDAWpEDMsLCZ2TFSrPZGwCHPpKR jiROCmPFX5IiFmZCWaYZAgIQ8XCzVpGIHyYPj2NrTz ZYAfFTGuyz4UUTUvOPYyPMT4PjAaDUTnGRTyTOwsIMNePMVzWGt0RTOzEWWxWO4OCqLjAERdVFM5OrYd ZNMvZEInpi3QHLCdBGUvIVO6KZDlBVKuVSPsEYakPIPdKKU9BFcnWTOgTOItYW0QVyZsXPAgFROdRWBt OFZvWMPmmq9JHVVhXYJdKiV8IeZvCOJjRJLfEJyxWD EdCIR9XAQtZGHlBSIjHO5DMgQiITBpXJN1JxXgKHWiBBWnsb2AMKNrLGNmKzK8YYPiSKTmHIDxSDfmLD EgWWV8SSw6MDBuTFOqPZ1GSjFrYQYwPFhcYdOjJCTfXVRpds6RWZAhKZBnJMNhYNBvKVJxSPPxTLhtQD LgUUD8LdRhWQEjGPJnJR9YZpUqRZCuXCt6IVZfCTIq DARemc5TPDGnVFLtIUdaZKPjRGBtQZDjACxvZOEfLEHgFWL4UEHiGTTqWP9BNaYkXWEcExQkWnkwVNGn RQUmsi9GDJDkGAJvXCC1GsPuTSXpGMQpXVfuPIVxSAIqQlIhEGBsYWJlVU0HYxQeMMBsNpMbEdcbIFDj TZAttt3NAZZpXYVvRbX3VzZrFXSbGGDsQRxnWXCoRM DzUdZ7ESCsMNLaDD0VYgLeKPBhXcE4JCAxGPLxWOVgvn7FoFEvtQfkul1UFKlLHv7TgEauSCAeQEtvGl 5laWYzWgDlCCRLQn3OpsFgPOJgUDOUBBbzFMPeBElxYiO0MIKqGvM0JASsQaK0FFN7QTEpF5J0IbGaOi E3CxT8ZIIwWaNcVuLtLMX3E7ZcVAIoNkQ7PDZ0VgIv FYK9Bdy+PM4bEAk+Xi7Bb6PjowQ1bgRlLGnfHCU8Ma6XZCNGZ3HPHa== ID Date Data Source [id number] 01/14/2020 04:27:39 AM EDT [facility] Name Value Range Interpretation Code Description Data Corrie rce(s) Supporting Document(s) Leukocytes [#/volume] in Blood by Automated count 5.4 10*3/uL 4-10 [facility] Erythrocytes [#/volume] in Blood by Automated count 4.39 10*6/uL 4.1- 5.3 [facility] Hemoglobin [Mass/volume] in Blood 12.1 g/dL 11.5-15.5 [facility] Hematocrit [Volume Fraction] of Blood by Automated count 37.4 % 3 6-45 [facility] Erythrocyte mean corpuscular volume [Entitic volume] by Auto mated count 85.2 fL 80-96 [facility] Erythrocyte mean corpuscular hemoglobin [Entitic mass] by Automated count 27.5 pg 27-33 [facility] Erythrocyte mean corpuscular hemoglobin concentration [Mass/volume] by Autom[facility] 32.3 g/dL [facility].0[facility] distribution width [Ratio] by Automated count 14.9 % 11.5-14.5 H [facility] Platelets [#/volume] in Blood by Automated count 180 10*3/uL 150-400 [facility] Differential cell count method - Blood [facility] Neutrophils/100 leukocytes in Blood by Automated count 58 % [facility] Lymphocytes/100 leukocytes in Blood by Automated count 31 % [facility] Monocytes/100 leukocytes in Blood by Automated count 8 % [facility] Eosinophils/100 leukocytes in Blood by Automated count 2 % [facility] Basophils/100 leukocytes in Blood by Automated count 1 % [facility] Neutrophils [#/volume] in Blood by Automated count 3.19 10*3/uL 1.8-7 .0 [facility] Lymphocytes [#/volume] in Blood by Automated count 1.66 10*3/uL 1.2-4 .0 [facility] Monocytes [#/volume] in Blood by Automated count 0.44 10*3/uL 0-0.8 [facility] Eosinophils [#/volume] in Blood by Automated count 0.13 10*3/uL 0-0.5 [facility] Basophils [#/volume] in Blood by Automated count 0.03 10*3/uL 0-0.2 [facility] Nucleated erythrocytes/100 leukocytes [Ratio] in Blood by Automated count 0 /100{WBCs} 0-0 [facility] ID Date Data Source [id number] 01/14/2020 04:47:09 AM EDT [facility] Name Value Range Interpretation Code Description Data Corrie rce(s) Supporting Document(s) Bicarbonate [Moles/volume] in Serum 22 mmol/L - [facility] Chloride [Moles/volume] in Serum or Plasma 105 mmol/L 98-107 [facility] Creatinine [Mass/volume] in Serum or Plasma 0.59 mg/dL 0.50-0.90 [facility] Glucose [Mass/volume] in Serum or Plasma 90 mg/dL 70-140 [facility] Potassium [Moles/volume] in Serum or Plasma 3.7 mmol/L 3.4-5.1 [facility] Sodium [Moles/volume] in Serum or Plasma 138 mmol/L 136-145 [facility] Urea nitrogen [Mass/volume] in Serum or Plasma 5 mg/dL 6-20 L [facility] Anion gap 3 in Serum or Plasma 11 mmol/L 8-15 [facility] Osmolality of Serum or Plasma by calculation 283 mosm/kg 275-300 [facility] Creatinine/Urea nitrogen [Mass Ratio] in Serum or Plasma 8 [facility] Calcium [Mass/volume] in Serum or Plasma 8.3 mg/dL 8.6-10.0 L [facility] Glomerular filtration rate/1.73 sq M pre dicted among non-blacks [Volume Rate/Area] in Serum or Plasma by Creatinine-based formula (MDRD) >6 0 [facility] Glomerular filtration rate/1.73 sq M pre dicted among blacks [Volume Rate/Area] in Serum or Plasma by Creatinine-based formula (MDRD) >60 [facility] ID Date Data Source [id number] 01/13/2020 09:34:16 AM EDT [facility] Name Value Range Interpretation Code Description Data Corrie rce(s) Supporting Document(s) [facility] YYUGGt2uQmSYKpAt02/BULsaTWOth6RjDZyoLVq5QMjeEIDwY4SpPRZ6oU4xMGU6CZfQWyXaRiIyLXS0 m [file] ICAgICAgICAgICAgICAgICAgICAgICAgICAgICAgIC AgICAgICAgICAgICAgICAgICAgICAgICAgICAgICAgICAgICAgICAgICAgICAgICAgICAgICAgICAgIC KeQKAcQU6PTVCiCAOrMGFgBRKrLDOcWMAkEQMpXXQvCLMeIJCgKKQgMBSeTQNkKXIbGQJwCGQvJTAqGR AgICAgICAgICAgICAgICAgICAgICAgICAgICAgICAg LHSlHAUhSFJdSWZbLSFbGR1BTDHtMBGyEPBlFUQhWQMmVUXuJGDeWKUwTEIiIBStXWHbZEZyUUSfFAEq ZXRjNMUqWGSpOGHxSYSlATRaUSFxOMWxVOMdGSUsGHKfMDGaJTSbTKAfKKPkFPXiVUPlQKLhKCNaYW3D ICAgICAgICAgICAgICAgICAgICAgICAgICAgICAgIC AgICAgICAgICAgICAgICAgICAgICAgICAgICAgICAgICAgICAgICAgICAgICAgICAgICAgICAgICAgIC VdEQDtGOCdZN2FKYBbFKCoUWMnOORxESKoIXClTNIiEKBqLZKqZSKsOOToCDCaCTJhMXUgCYTsMDCnYG AgICAgICAgICAgICAgICAgICAgICAgICAgICAgICAg MFCgFFArZYXfZHYyTXWfTLItAF2RXQWcPTIpAJKiXTMtUBJxWCQjWQIwVVBkBWFxVELoFPDyNFRzZMUu ICAgICAgICAgICAgICAgICAgICAgICAgICAgICAgICAgICAgICAgICAgICAgICAgICAgICAgICAgICAg LX0PWQHvXJXbKBRpNKBtQLTkRYKpRZGgZSCyIHUvMY AgICAgICAgICAgICAgICAgICAgICAgICAgICAgICAgICAgICAgICAgICAgICAgICAgICAgICAgICAgIC FfHSAvCPHeZDWcBR5VGPDzNORcKWOdNYVlLSNfBRMhUOJoPJAtPBYaEEYiGRAoRMQgIIPfZBUbZKFkQO AgICAgICAgICAgICAgICAgICAgICAgICAgICAgICAg MPQqPEHiXIOsWZCkPOEeUTGmTQTxOZ2QDYJtALYxIKGwLQRdWBNyXASuKNEzSNRmMXRtIEFrOVRgULRk ICAgICAgICAgICAgICAgICAgICAgICAgICAgICAgICAgICAgICAgICAgICAgICAgICAgICAgICAgICAg JIYwDW7MLRPdWOSuHJJwEHDtLUFhLNTnGTHpJHNcFJ AgICAgICAgICAgICAgICAgICAgICAgICAgICAgICAgICAgICAgICAgICAgICAgICAgICAgICAgICAgIC WiEEKdSNNhKRGpQQGcJC7EXE09bPXde1M4UVBnRS9beux/Ju1KVIqiueWqjOMiEG5CUyIdQL8nwc3XZf EqZP4mzm2KWMhCZqTuX0Q0mNLiUXEnYWDLQyGxF00c EEkyHe14GSvrZGZpGfVjUHb1Gg2XScLxB9laORYzHwW8ISAiKlQ1PSOqFhZjVMfdOE5Vo8CnuHNkXMr+ Lk7MLD2uk1TrJFsnApBvWS7nkb9SKBuBKxQbY4CiosD0VMIpPAKpZb2KUEExOTLtpAUsSkNgESZWXnMs X4FsgB05SLHHDs4+VDdphaTcAfzZDyInPWSei0RbSV y8WQ3PPQCzXMv8bYWaT56gc4PfaSRkTovyIuHvbIVsoqolCZHJCPApjL6wmI3mCDTYgYYxtROxGQDvNL 8xHQ9zEWLjJAA5GcLvPOTQNW1IXSNwOBVjlIHhGITsEOMKDH2WLIiqYDN1DCEdngMzbXXrKLwqAX2BXL JlbnQgMjIgMCBSDQo+Kj3XZY9gc5IkHDtfWCSuYF7p xx1WFRvASqCvC8K1mIOgI0E9FRzuCu1NTPRbHSSrLoFrVIWVMCrvQV8KZS8crdI5CO6QdGKcMLYoIOKj cWCqMTg5E53oyTBrVKqcHA0YJLR+Sadie+Ft3EOKGaYQRmCWAkGbTvYUHQQkMjA3LmL1IIv4LeD3KnVC11 tPktlqJsOVfvSA2RXV5uVOPwNGKYAU6VkZQynR8del AqMlTkCMPZToAlJ21moTYcRLNhPQOkSPYzQs5HPZIsG3UespYbvZhtwiNjKQRgHETWDP0NKRbqeiWudY IscPprKQ56jSfjZV2VSa7UOqOfDZ1ock9LaXZvPi9QDYLvOL8PFOYfTOWlTMArJYZ1JPFyDaUzLKnsYU KsUSZaSAA5ORTeEUApJR0BErBxNRReOYCrNkNdULDo MBAjmj2DZQVuJGDhTcD6SbXiIQPtBRKzQRsqNOVdVOEsJJL5UGGtTRCjKO4IXlUaRBQmLCM3XKXeQTMp ZAZxwk1SHIDbSYHvDvl5VPMqWEIpNNAcUDamSUHrCFA8WhL3SUEuBZRmOM9LHlEvQLJiDVS6KkCoJVMz MVLzit8OTSYiJWSpAIu5BFXiCGQnLAAbCWsnOHYrME V5VXe1HSIzTRBmTB7UDzBpXDMxMADpYlehCKPoMZFaie0XJJTqBIAbAmGxNrCqLSBkDJOkOMjpTXWlLN P2IBY6BLWcTRVnPI8URuHdFUWhHGd9HUkkOJKxQQBhdg4IUJIwIZLaQMH5XaIeFCOaEDBlCTrrKNWxVW Y4Qhg9YOKwVXDtXV9WFpQnOGXlVJt6LhJgRRYgUXLk ul5KARZoUUZpHQmtPsOkFZYvEDUbZUuyRJXkPMWzYPZnWTHjDDBvXA5MCyYmPANbKTMzGUUtXHYkIKJm vx7CNFDwVARdTIq3XnJhEXIdEWHcMVgtRRDuQUNlRDvpKOIrZBFcPE2PMeAyZWSzSBVfNaUsWONlHEMh gd3JUKYxUFXpDoXdNsXcQQZeZCSmSAk4rjTciHWwNZ u7OD0JL0MknuRiHiHRHv8Am795IML3BQWbYr1OT6fxDl2xMNTzCFPAYy4HZVs9DQrkVON3DWFyY1EiYC IlXXUiKTl3QBJ5K3JoOuI0NTX+MAxoP5VfVGO6AaJpFwImHqV8QWHbBHemLow1HCT0HRL9Kg6cMXUXWi 4+FKbrtVMbqNyeVQYJRvIhGaAfREebLDDIDa3J ID Date Data Source [id number] 01/13/2020 08:13:48 AM EDT [facility] Name Value Range Interpretation Code Description Data Corrie rce(s) Supporting Document(s) [facility] CIFKKd7uKcCSLbOde0UfJxNtKUVhNB6dboy5A4J2oBKgN7GisGBjf2tjU6XxY3YpTQJmCFDWDO6VpCLm jb2 [file] sj+XIICZ8JQBLyI+IewKSZX4BAPJfvPTjZOcOfvGEQ k3d2PU7FibnKoW8CC836a8Q1F326YNtYIc/TRcBH1zjFdLJ10qZizCcDeTmufAZ5fsAJxhPyUQCRwKOX 3158NZSoGjHuvLHYQqgnWK3rdMRWYavg9UxhUv21A55jSa30Ne5BbrgXusR3SDMfqgY+lisXnVY+lr3O 1DJvX/7QdOuDeit9K1sxiI12FCT1Omo+xce0kZ36S3 t1UxnFn++dbhjvr3w63nWDIydq+GdrrrrbhDn5OFbqzowy7LfGriqnHn/ONSl7qDjSSkOLT/gL1tm+fY N1ti/1iaDLdAMc2DuOtxweAp/LVb96+Wi2ZVFlY8yJY+tVl8OF1ghJNP1B6ZWpfmX62DGzAIyYuXipp4 h1TRsylPojlzKCUbzvxbsO8rQhR9e0yfjTJJUxFaQY zmBVoNNXwdqhcmUO9jYgtEUYQFJZckTzIHIfvIakRuRCQkHCUcOdYG6ZXdx7RhrZIy4JaXJYZ2IslGQE iOcdcFKnZJffOMZZ8LKCAcWeLSZZ4TDOKeJpPWOG9HPODoVrcQOxte8V7uNnNduInf3p6UwGcQPRLV7D xEsFYAv99iOvcKrQ0J+nniVsDklcgjRku4OhKxZsaJ iJk7A/ZOkxjzxCAvsBJyxJTyxUUwsDFkb5tMoUEs+MJt+Nk+/VdJdkaX2e6Hr5RI+3kFGzFVnTBqI7LS ipLQh5Nz+yOh0Z7ZHF+ucctyz9oUj3TJqVdR/wMVOAHBRl9YVYq+Af2AX/aUGXRC1xHTJbM3JBKjSWtq FGZdzzxxh5NYUjWZKVj2QokWmOdXgRwKGAaGRNwHV8 tYA1tb5YYMBaTNqWkA3ZJaIxLOoIhC863py9GS5WsAWT6dHpB4PBzHTX2jHUE/Ss4mNYz/IIJINkkEwS 9AeVj+PBYLCDGFNz73efPAs4T5jP58qMuwU8hZvKAoQ57wapK5oDRHspOFqgrmw3nR36jowbZIAMFROA eNKvARUqXELVzPym0eOCbB23EBqhxxWUAUeAwcS7RV Y+lvAmoBGAiiCCAKYMqyUd4QP2QOB5za3+3choEkgZB5EVCaYU8zCPClz6qxD1UzlRrsVDfbtV13vg7C OpNtfZH+G8lteZM6oi4di91eEAR4arS5a2dc0qEzL02NzdJD+rhoSsE7eXs6oSh4Eqy40slfiV/2DlY1 mgIZh6oCd76KSL9m/L/Wgp74v5SRVkSWt+ad7ojgDz aG+yeRhVuv4Dqdchv9GawAa4KDgxyinU45dNVgIXyNKlJh9lk/P06Cxo7TY6ptukWZYvS4dyREy+loqH pukoY9FX4BAIFT7yWg7AKwRBoNn7koSeF1eqQ832QYDWdHqPriZzLhU/SD+dmm2UbV8PGzyHD6ttroCs ivPe7VAuw1zt+AgkTuIknaSTBEmQDJJBMkkmyLwuCi HOItOLxjWIhHvTaYGyKKEmWDoQTUpJ0kFOLgY1kSZHpS0zlGTgp5lI0qqwDjIvAB858iVx4EK5DMMsYA JatCHW8qbCRYtCnXKWXXsS32ZCssxG3oI1TYvILIn7vLiEO5pgdXG1ceea82zjzbjRp0Ql5lxyVhDsZM K0Y8tSDg6WfqUgzMYdHgO8c+czP8OUTor1YIi+ROf+ ROf+ROf+ROf+ROf+ROf+ROf+ROf+UBt3lnP/LuKlDLql39KXqpsjoQEEgqwBdlV+4iOQCImQKImSNJJG MmHZ5mKC2l/71OscSwlBEiSDhDao/V4aAPOmhgq2UV3uAJDbZQwCWSnPqCcXvgrAxZN2mqRNPziXzVW4 taFMYgd7qbR3bbMKVzn53cjzC3jmBYKVLzDD2cYY2b b0LRGUPxsGZ1LJvsxTxhrxIPCSYdM0QMc/8Lgo8C05tlj1354b127GwOyngwVq6ab71ucnj247JFd4oU 5vl6LqO7zsa/Ln4JMc2uCMFCkOguaVxotJzAhqd9W+tty1vQwvcVYo53Q5jkHBvKW235X32GMyduAedH W222rZ6ct3PgfLxF7t8SH53b/gJ1Y+rinIYb1AYVfY tu1Dt8KUPX4o6jX6OhuCWoffVb4WuE3enZ4ofhCWHBvXNYEHqm0wgF+Y7A8m+4PJ/dJlS8vnBln8vCz+ cbJPnOwTJ/dLtI3kbc+c7BMn+0SuO1c+mz1iF5lgW1Z0qBUUF1kp9EogvSFCTW6c2AD6VuOOOwKmT7IP 9RaCrhSykdUafalNcgOvFQBYDdoGRag8lksdjkg41q UfkYn43cSdxYnaW2d+kCixfoky5izOFlwPx/u7Lz+2zrRzk7s82q/e/tpa3K4n3w98j3/cL44gjdkcNz ockxoyb0rylrnIb//Pu3/12Uu1snO6OO/61VUFvvRUSwFSIBlMw9l7/Oy797/52dq8+ADfH0w37flYH4 aF5/Pf/crcw8f21N+++/Tu0/u3X7//+iFB74802wdi Pvzu/nkuUep9a17w0ewj8w7mQr60953dijl/7kY6c54k5x/u3a9+Rzmep17g+NlvuytWhjtY3/Xhm99+ 9/bp3Ve//Ehc0p34+sO7v/HZ+yV8f/sqq1367+2nt4+//mX4w9z8o213x2/p6z4c9y5YR39+fPvwzS/e nvxy37h//pevPnx6//Xbt9+8vbRfvv/Ftx/po42MB8 F//fu/8Q1SJf/m22+++576dx641uTGa5/e/ycb384/vfvym28//xlrl62B/+kfrhhe+bjyU2/vv/qvf+ Uot6Vuk+yff/n+t8cagq90n520yJ7Lc/7z7Dx3Z9e8+wv+jmtzsDS3W/2Pvi9YnN/mn377/vgST4860c 3VS5s93tc49/zX96/yv/59+FUf8UdrJy0p/Xf3XR/r /Or9u6+/++abO0ClWlw//+nf//CXH3/4t7f/9n/efveHP/7x+7/85Yfv//gPb19//6c//GPYa9Kf/Ovf v/35T2/z5zp+vn7m+LVyS3Vm5889pe95Irb3Cg6/+OPP/8qvnUMOluuFf/cztHt2QH/crl/+k8HgzJnC +Y/OWomjOwjsiy7x/LdFd91d+W4ddMEEvs20Fei222 rlLop16n41/UWuu0kG69aXK94b8012yyClP583+Q8NF886EInrT802NClr/Ihw5vGx/uk6Hn+ayJe/4Y 8ZzZ1T0bWWopc86E6++NN//OPbX77/jx8+u/2sPx5WFEwyG/3415/dqLSd2dU2n/ibj29/+NN//PCX// Bovy4aqndh33wqOkwa01/cfbN/+vjd27/9z9dv/8Of //PQ111dzq+3yi3cLd/06ef/9On34K/4qXL8h0+tu7VhauOPXIbg2XN8tJ2/9Abul37cr9Dq/qrNfvOz jz/79Pb9//7hr/+52ZyHOn/37cysbuxOTWk8oZj0/p+/cADpid3kbpVWw1//8bMnPD/jX33/P3///V// 9J2jprBCfuj+/vAT+Fjp45///KOTx4h82s56WHsxN6 /+/QwrsW2KP/hfqL9SJ/z+f/zpD79//HQg0h555o47g+8+/Prbb95/+slfrDQi+Rd//N8K7yk9A/72q2 F9//JRVgm//fWv33/m7nmk5Dspj+///OG8LSscphek16n/9542h8n///xsL0ea4qz8n8z165/+Qcbb+6 8/pXC19KVa+No14yZT3x3+6jci149UTLd910NR1/72 l2uq82AjdNj5FzJb/kde2CdcQuLkHKG7kpPabTtefqPbRkdKSNlzYOIkNxk8NN9QdXIhOSXiU8O9ROVa he3vGYAhBQFxfHJxXdDdZHXBFP6YiYFvEW1BUCv0ECNmQSVpNeAtCVKrwdQ3EVRiISYwIWHrV9QoktNv dCAyIDAgUj4+KK7bi7DvFiRaHPBpZtl4EX4GsLJeCT 1OxLKrpW1xjgHoF811nfGcXEJoUxonr1GfGPasGPERDI3GXDR9JPL1KKLnAo8+LW2pp9RyKePzURXpUi d0HH9NmLYxy3ZfPC6HK0GmWYYtGSUNDNE7d3TjIXFmmaqwpbdhH6BdLYC8tL6zTOI1ZQOiAXpqJXCyOX qsUTI2IGQnBRwkYHOcASQqELFpEFSiVNi1hJLrRG5N Z1QuUMRrGXMBWVCkdpZgTi1hPFDVVuIAUldhM3UIRZTiJpn0EUCvWDfxO6A6NnxxK5OtBD8NL9AwVXGp MIITHTDkprAnOU5SrqEdsE1vEAjOGGJRZMfASXsmWlR1y73igiDZHTWxYKAtBBgsANCjPTFgRSDlXJJz NINzSEDpYFHuAA8HC4DeWFCyZRXKWBL5p6WpLFNhih ebbolrQb6jekYtYme+NwiqBVGan4FvHAlmF4E9nWIiN5HkE6MtYY9AsGRsVIumNWNyMMTcWQEcX571ng QgMT4+BS7yt3EqLmmcLGYMPMLvWYSwEXKxULF8QwNxREDfMHJnODEaRvZ2BsTgVyOTEALnUKT5BNNxQH ZzCZWeTJChNOmrVBLpEAV9IvanQONxXSNhKX8eOkFr MXWhXcIbFRJkJKKjVJYeksOSSXWcVOFxIISdDES1RQJmAGFlSUjhKEDnAWZsJCY6EWOnYUQgHU9pQtCz TPPcCLSkOvfjCVAkCKGqjfMTJPKrQPObSJA7RnSzBJCyDBRiGWciWKEuCLQtJxu4KZQhZKBxEY4fIqUi UWNrMSD2WAeuQEYzWRUbidTCYNDuOZFtQLUaKoMtWD DlCQIbSHzfBQQcMPOeCqNlIXXvYYCgPV4eAnQyBPJxHPS2SEVbMILoPOIujsPRRMBgVXJxMVw1UNGkJR GxWXWjGGfzDEMvPEYiNJY3RAWaGQDcLH3pBzDbXBNmFGDhXXSzXEEnNHAsiiKOSHLpYQYvQOM2PXZsTL FsIHDhKQbaVFIbPDDpJpo5EGMsQTKlTC4eEeRgLNKc EDD8EUGdCBYvRQXocuMXMCIjMHM3CZY4EOCsKOBeSPFqHAytEKSkRYRzBbW3YDJyXDReQT2wFmByQUGd UTX2ApNyXFOoTHZotjWMBYVwOVOaJEG8ReKfDHFuVJJcFSaeQSSfVAPiGEYtLRZ3CJT2WUGaQuCmNBmz GCCLQIwMD7HtaeGxNnRDF2igVc7bBzEkMURWZ8Lhz0 QgNSAwIFIKCj4+JvY1HAE2mOPfEte3BOS4HTlwJKQFTv== ID Date Data Source [id number] 01/13/2020 08:13:27 AM EDT [facility] Name Value Range Interpretation Code Description Data Corrie rce(s) [facility] RQMWSo1gXpWRDvNtg5SeAsTxMBNqPX6wnlw1R0O9pEZtV7YnoUUyr9rkO1HrC0ZfEXBsMXLPFJ8BzVHq jb2 [file] rF+cA3UFd94eTxyRb56/XrQZUSDiY4bAo2dfhanw87srpA/p4CmZ/z6XdjSO7/Anca/j+xtHgqTOOCX/j o+do8jc++v5of+Kp5XOwB7QVIu7oAqvRyv/64KItf9 oBHx095k75v3qXO8d2+iUsoXe8x8/bTE8wfQyQyyUJMKLiy9Eq+4C0Yr1V6EykW9IB75B6KpiUD3h1rD 80+MKtJb7cim29u4WMp5S331FA02yj49hrm5dnJ8F16uEvgfHS5BQ1+CusX+vXl42st9mF6jfjUH4MB7 gi3Eu91hnqVdn9x3VnkA69kExGS82wzB/wdYxe2bOL z1u6u91DGH7v7r4hnerq4zRKngS9yxDN4GcaaU/+jN72twgfQ87ItC3JB0izQBqTmykbnI03b4wm/SPr d7/M+kR67B+ngrp07y3Ah10fGTuQ0dj2+tiV61kS016I62+S6L0FGKQoy21KDXFe4Om3Sca9bbmAvi3A wCg5t7yzf0x1dcp/ZLKQvvD+Ed33drBO/tooth cutter pinion/2hI77 ec2B/M01cWUwP9ld3X17Da1O/agL6xP/a3KchXN0ug/wslgDr8CDiG1C7Uh+8b+0StuRFQlblu8TiWek JrG3lCY90Ijb16XVkuxhuNQjxq8JRAQ62roev+ddwS1C2OKa9qTnGI0H+Nv5d1sB67vgios5jAA4e8nZ wDR737m5+trXLHSgeB4ViR2WAJGxQS1xc/In2i/Qvt X3h/4/4bB9egzBC1Ie3n/fINc/hnh3/G+pU5fl/V04b0V2S4aHB/0PzGC+huhq8AOiZ+94/OEdunf/pG OvzzhH+eDenoz/Ou59i8+0279v5b/DRdTKq51cfd/2XkEXeyD4AvPs7loa/NifT7/YZh/crmXc+xCX2x fmUL/mrd/J5tQwtgWjh+Rctrtpt4k04VupU1uSR5CV d9w2J/4TXJOxxlc3X6c35G46/8a1i/VvSqK0555walK0X89qDB/aXvf5HjO1ds/Xlj/D8S136eoJk+FW N/33jQNvTdjnTH+/CTs1BqshVB7ykL9e/d241/vw5uogl1iNf5v/tSlO539Qxv1/M5AW2lETT0fhMU+l 0j0Lz5eJpY7Yr+7B2b0yN3n7kecW49xkx+aVqLkf4k O4jhhewJlsvpjm920WQO7vilqQiVzBGkE1Pg8w+/pg7w9H08YTEs/3IUAaT1b4j3YB2z+RsfRexzjsBO l1RPf6f3X3Z8E6f28dsw+Yjyv/WPHharH30/5cdvJCc+DtEVWqa520WtLDo9+6PPs+AgWqd4QG7C428p K61t5P8/8Dm/XOO62ZWLh5jwh6/uksgNEFtX8gKh96 n0y68c/HjNf7bs45ZCubHw+isf1z/39BpgMXluW6JT9bxRDof8/dnHPb/g+V2DfcCwdE5FEcC+98t8XP 2dLrH23dmQl45ZxXK10ioAUl+71jFDtxq09AZxnRIfgS3s/+fkMOmkC9Feu3Xgic230A0OUoNC/L4GfQ 220admk967MopOrVgT55/gPG1a4i/940iiK8otZ2pz [file] /6oNzWyTtJcQ247HXt6Mbk9KFiOLrwr7YY1/P0W 9lVeX/ZGC/sq+nvp0krWnJLiGNIZgIbT5Z06+GuRorZVPf7g3908ueLeeHzat6/DWc24jHPCbeLwjN9Z Td39c57bT5UG2Il3Y3bD1mTs6CU0Y+EbRZ7AwEnWjO94jBm+Qd+y68J87K75d83NZ3Wz0V/qTMx892Cd O1bpZ/mD+3hVsunvQAdCHuIDgXAOS1v2z15Vj8Rz1T ivJsarifFqTugdeoxXE+PVLP+oMr3oWj6g3saGvyAx+fbmNR/bHP+jnL+KdEc+STj6t4U+Rb8Ggujp+7 k7cD4KL7dNCetL/Ery3Vx2NpCJeKs2yA4vws1p8Ui0bA1D9/zU27kieLxL4+v/HvbVSUM/oB/QT+gn9I 41Cy5a5Lv/2LE6t8+vJUnGQr0ebikk7GdH55Nb1Lwj O/QGfdnP/Gz5qM4C+sx9aT3vrI2BonGvWz6p92L+BfarHktgqa2ci8UHjlCyhP/Qd+gNeoO+7KsO+6rD ypsrfUwhUfdNcsAhDpuzd99uiT925IyLdf1+91Vpv8V60YMWM2xsoGubKY5OtLZq5qv/0mlwBRlvNM7T eXP+qap5Rx76pi3hqyMx4R/9ygxY7bukcp2xv07jVB h554wRR+hrPbTH/IFKteaeUbKA2k9h34fSL8kGPQc1+Hz81p5V2w5q7a6VBrsjppYT+NiToSq9oE21Uh hzRix2dv/toU7wTpxQ93C+gAwu72nYt71G9C5rHfv5Tv50GprRw9i5m/mrqE8r/7cb+q/h+9eDZ6MZ1J u1h5i/dbCCxvEb0Zb9A/qaj+1W88/dmt52q5Bcv5+8 z06G786ZT3Z9cm/7EyYOnBAe7rGfGP/81yMe8XucC/MrR1KIPx81HTp59WpVI/gpz63bZ+Ud6L+Yv+ox xqW3DWk/v4+DvBx3j/Stj3xu+3kYQVy50B9A62d9RwJCxge/NDP/4i5h5b3h++q4Kp33ub0crOrd1B+F l4MWjTpJp+wzILnWs4+ApE+8H9WiH1K93n6/aJ//eO 2fo4fCTv8uTML2F2/drEo19vt86Ztaa//VTtK9z9Zdi/sub+TvNb/BrtEbg7N/ep4ksO9gqZ13A3fxT0 WsD+7zHuebevkL+7RH0+6t7sWjoO36i16Gz0Dj8/wXs778PcY2HY740Ru9Gl+sd7Y34Ee0Ok7JG2Gf2Q /oJ/QOvUO/oF+Pfh/qqPSuB9/kKc7Kyt0bK+gb9A36 Bp1N4vP08Tg9H/oJ/YTeoXfo6/mlMdsnIyV5EjJXIr7HM/A6iCfHle4h+mY1j83Kb361xFhuuPFOwiW/ oZ/QO/QO/jF0qs5xKn6o1AV8PWJxjxk/ejDF8ljlRGs5DxwmZwVyi0R5/lui7C4avU5E8f3H29fhL/qy cwk3gaP+QhpJ9qdhzKp+bEIZcyhXc1SuBw7dzwZ8Rp fX/KRh/5Vh/5Vh/5Vh/5Vh/0X6jpdMr3PI44jjudTUC6Yj/gU5dBjcqI8aB+lZ6tJy87QQG/Qd+rI3rO B4mpeybx/g2C51qU9MUaVwWhzgyShyB1os9e/Fcc4Zex1Ji3Md/lKQDwg9dhNxqiV0hlWvratpcoYK4u ZAneFRgH1s1zDdxySKdR1nMYD4eToxue1aY+gVeoW+ QV/r+zY69Pi+A+PjFA0CoTcGH/Q5A58maPblDM4HoNX+Kq6ZZU/cWFtOVb6yr6G0W1n55D9d4Ucwru47 y/+5Jd2oGXEdiM/IZ0Bf+9Ho1grPsjoFofbl4n8gIwksHcx160X+avsmFvNXmRboBdfXerfF/KD659m+ y0znigerw7vh92zY4xF6au+xat1pHR06Rw/jN7Ul3N +L+ouOswzbucm5hj7EX0s5eHz2hmKmUQnks/0qtmq/jj5411L/0erQG/QGffkLtmr+5PxPn9Ui2F48/r 8lB785ex1wE6699WR31Dxknbb9pSo8YsbBdi62b7NaIc5V/mi3vD8sazh4+CiuCv7zCXL/x1Xr+yPmr3 HcFkV5CLwq2kuMF0c+uiIfkWe/3JDtL+s6Td876bUP j+tv/2juNjNk+4qS4Ltfv8OgSCC8yrNrT+m/BPWNrlt0021feSq7y3h8H/qndXw5JpNldy9k0CK7mD/1 qzQbJcuB1qK5ouBnpoxmZaO6+6k36rzZh25oVj751dg31RZ9dh9hEUmhCspcU/2MG0Or/w6t/Eqz9Mhr A5HNe4D+i9IGmgnv+2rZzyPWB/U6sq8sofCz+3m08h dGK/9oNIFeoFfoFfoGfYO+Q9+hN+gN+xB1pM2MA0Q24T61GB40N2Abw36npgaLsuz1Vn5Eu2G65Bj4Gp gRnWWa9DT/3jUOCxk85SM1u38Gr9Uah5DnqRCksMLwuNXvcKAHoH6Nu/OkIckIuY8z3fuCRvf/aBjGK8 U1ZRjqGQA9wHuIAoE6PaNY+uDA+uDA+uDA+uCI+aso yyj/aAyUF/NXA/NXA/NXA/qJqUgGIY96+h+FZnXSoZEtE97ucd/62wFPMfif1ryF0y/GqP/vmOUfjXlB X/OTY9Z+wjHLPxpToa/9SGPW/pwxO/QdeoPeoB/QD+Q/7juCohF1Rl9D+tp/Jimmy+JAMES+JAMES+JAMES+OFyh [file] v/m697eJ089+/y5Ql61991c1133+3sggI0v94yognrs+w6/kiqss01dav9+++/jV1+/fPrz/+HWn7324 37wsRVw9Vs5oT8d9k7hXvAD2zK++/u7bt4/ 549+UWm238F1ptj+H72i/rvr73Zf/fPnz3q/dvr2e/xlSoO12xAnp8av+niq5Lhs+++Pj2i9+9NB++em ne/+d/+j+//E6bd6dGy/7mVZLXhV/8008v2+G57sv+yy/ff/32xTe//s27D++/iVouM3345X1N9jp/+H bZZ//Xu68/uw+Iv7L9/NK3X3/6X70c8oQX/v4/yPE2 Ge4cv/7m7duv/unrr/1tBvZeh4z33mrybm1b5//Q6cnPond70p/92x/+8uMP//r2X//X22//8Mc/fv+X v/zw/R///u3L7//0hx/++PYv/0n8X/7u7c9/els/V//5/s7+ubTPVd/e/fpvvsk+mWLuxb4179//yscu j0FrbkK//zX0d7awItjke/3k9FjNX5N8t/UPE+gmba w87zjzhlwDfN8E7YWx8m84JPXuBL/4kwqFj99/js6GbXPr8WFJp/qzUAS9lO6+6omwp07J/PbVLz68++ VXv/9ztS7Qf8qRc5UjduHyut7d8/n1asG/+A3c3fSgXxTO6pAIyKT/+8Of/z8l5d6q/b//8En2r3/oW0 TUuS/68a8/zf1gr/f/ae4H/M2Htz/86d9/+Mv/+Ju3 j+xPfX6a/K98QfwMF9H/2D9/+PbtX//7693/8Oc//TT7HY/qB9zUUr/2zx9//m5gx91fbM7ydJLHa8/7 kE9y3y+2o6TaE5d55VBtiNquh2RbfJIrawFDixYVv40+vn3/P3/51729geqc00Ca37/z0B2x5DY7Wn/9 X3/5l7/7ydXnO/zjDz9+/1vYsrW9CR/i+//+++//+o fv//NHGW2xZ//JK5Cqat42+c8/em2wzbTi9umfe9//3Iwd+dZ6a0Jvjg/+8Pv/509/+P3r+Z/glha06B JN7hGX/mEmT22wXl//9v1X//d3H95/+5rN4KuPZdQ1j/71+68/fvs5u/n9O/z/v+K7bvHn5sF6i+//2w 8v8nipe9n6yZ0dpcrtDXz7q/8aEV7/9hqfskl7/r29 oifw4cz25sCQ8h84/gDP3ptmS1p+0GoxzCOc924xO5n4vBgeUB+5/29NnZhiNrWjTKK7nsVfbKtyyrQr SjeGIMmuSZPtBjd7NG8TpYUxDARfO1Y4SBScqy1wQWCkETMczAYbGgIoJWZLWT4SpZEaJT5UMYi0HFZt JVEvGnOwCKJvqtP1FLJqRBWpYDTdL0XjdwLtqSGgKA AgUj4+IP1xi5AiEtChLRAdMqi8CO8EyDEmZB6SzOJtbN9onkVwI731uqYbMQLsEyitc4BwSIcaQAQDRU 0VDBN7SVA4CSXvJo6+PE8zh2OfFvQrVMUpHog6JD8BbFXqx1WvUR6XT0ZtHVLzQXMYXYE1s6WgIFYmsy npcpbkT7QeVHR0iO0pQUG8AMKuSIrpMPIaSDitYMG7 WPWaNPpbCGCfHXYjARAxZGFeYWr8jZVgFO2LJ7GbPZIxDPEDEBWfwrHqEc8jNXCLTcZJRgfeL4YXKHEx Ybw8IBZsALviB4X4XktjY7ThYO5AF9LvBMBkIBQUJXDztwUrBC1RgoGsbE9pVNqYMWCUMJzREImhXgQ1 a87orfLRYGFwIMPtATtpYQYnCOWxVCIkZUSaWJIuBB CzSGVmCO6IS4NgFEKaOGQQHVJ1x8UcFTIjlrcmvgqsDa1ssbKgUaz+CpwhNUQet0PrXZkeE6N7mUMfU3 MuV3HzFO5SeCTfIEgpLHAzIAJbFYDrD476kmSyWM8+DT8kx7GcAesyYUARLAKiDWCsJVIxAOR3BzZjEJ RmGQSsKSClOyU0JgGuEyIVCLUzGRS5ToO3DkQsJOKy WHHoEPxcWBHuRWE2WDSiXNDlXRPsXX1uJoYnCYNxLdI1DGIoOOAtTSZwdlAKUQOdNJIlIBSpSGH3NHJu STIqPRnhFFTyDUCxAXY3VSIyDJPnHE6iFtFmNFDmSZXmVsuzPZAyEYKimrLNSEDjUBMtICW1NvKwLYDv XRVvVHftHZMcNLQxDin6MQDjESPwRG5tYbQwFNCmUV W3JKlcAXNcMCRtpcGZLCZtZPTiDRZrNpBiJPXwLZSeXDbgLAHkMHFhCnYgNUVuSJJkJS5iSeTuWSOmHX U6AVHwMGWpBVXeihWPQHOeYZQoLUg9IJAmDUMvOYAlKKonTIIgPZHbLJS6XRJhDUDiXA7vVlRhNIDfDQ ZiHBAbLHEzUKNycfAGPMLaRRGpNGJ9TMZsVQDwUJCp KMvdWIDmPESeFqc5TEBhNTNgGL3jIzNvBAEuEUG0OBLcVDOrJFNfxnKKCDPhJDH8JttcSyRpDAUmXBOu MIvvDYInIRMdGcZ5BURyQQPvQX2mOpWkTBPkVFP2GtEhEXTsPDCbqkWAZJMiVKGvPCW9BrIjPXYgHMQo KBezBFFzSAZfHIImYPA9VDY7IOHoZeCrTUbjKXGIMO tMP3CzvlTkDmNNH6mxLd6eMxTvFTHVX3Kkr2WcNJJmAEBFNa3+NkZ0LTE4wKEtDjx1McImWydzWBIZXp == ID Date Data Source [id number] 01/12/2020 05:51:13 AM EDT [facility] Name Value Range Interpretation Code Description Data Corrie e(s) Supporting Document(s) Bicarbonate [Moles/volume] in Serum 19 mmol/L 22-29 L [facility] Chloride [Moles/volume] in Serum or Plasma 111 mmol/L 98-107 H [facility] Creatinine [Mass/volume] in Serum or Plasma 0.66 mg/dL 0.50-0.90 [facility] Glucose [Mass/volume] in Serum or Plasma 94 mg/dL 70-140 [facility] Potassium [Moles/volume] in Serum or Plasma 3.7 mmol/L 3.4-5.1 [facility] Sodium [Moles/volume] in Serum or Plasma 137 mmol/L 136-145 [facility] Urea nitrogen [Mass/volume] in Serum or Plasma 9 mg/dL 6-20 [facility] QA FLAGS AND/OR RANGES MODIFIED BY DEMOG RAPHIC UPDATE ON 01/11 AT 1515 Anion gap 3 in Serum or Plasma 8 mmol/L 8-15 [facility] Osmolality of Serum or Plasma by calculation 282 mosm/kg 275-300 [facility] Creatinine/Urea nitrogen [Mass Ratio] in Serum or Plasma 13 [facility] Calcium [Mass/volume] in Serum or Plasma 7.7 mg/dL 8.6-10.0 L [facility] QA FLAGS AND/OR RANGES MODIFIED BY [employer] UPDATE ON 01/11 AT 1515 Glomerular filtration rate/1.73 sq M pre dicted among non-blacks [Volume Rate/Area] in Serum or Plasma by Creatinine-based formula (MDRD) >6 0 [facility] Glomerular filtration rate/1.73 sq M pre dicted among blacks [Volume Rate/Area] in Serum or Plasma by Creatinine-based formula (MDRD) >60 [facility] ID Date Data Source [id number] 01/11/2020 04:24:53 PM EDT [facility] Name Value Range Interpretation Code Description Data Corrie rce(s) Supporting Document(s) Bicarbonate [Moles/volume] in Serum 20 mmol/L 22-29 L [facility] Chloride [Moles/volume] in Serum or Plasma 105 mmol/L 98-107 [facility] Creatinine [Mass/volume] in Serum or Plasma 0.66 mg/dL 0.50-0.90 [facility] Glucose [Mass/volume] in Serum or Plasma 89 mg/dL 70-140 [facility] Potassium [Moles/volume] in Serum or Plasma 3.9 mmol/L 3.4-5.1 [facility] Hemolyzed Sodium [Moles/volume] in Serum or Plasma 136 mmol/L 136-145 [facility] Urea nitrogen [Mass/volume] in Serum or Plasma 8 mg/dL 6-20 [facility] QA FLAGS AND/OR RANGES MODIFIED BY [employer] UPDATE ON 01/11 AT 1515 Anion gap 3 in Serum or Plasma 11 mmol/L 8-15 [facility] Osmolality of Serum or Plasma by calculation 280 mosm/kg 275-300 [facility] Creatinine/Urea nitrogen [Mass Ratio] in Serum or Plasma 12 [facility] Calcium [Mass/volume] in Serum or Plasma 8.4 mg/dL 8.6-10.0 [facility] QA FLAGS AND/OR RANGES MODIFIED BY [employer] RAPHIC UPDATE ON 01/11 AT 1515 Glomerular filtration rate/1.73 sq M pre dicted among non-blacks [Volume Rate/Area] in Serum or Plasma by Creatinine-based formula (MDRD) >6 0 [facility] Glomerular filtration rate/1.73 sq M pre dicted among blacks [Volume Rate/Area] in Serum or Plasma by Creatinine-based formula (MDRD) >60 [facility] ID Date Data Source [id number] 01/11/2020 09:25:31 AM [facility] Name Value Range Interpretation Code Description Data Corrie rce(s) Supporting Document(s) Sodium [Moles/volume] in Blood 138 mmol/L 136-145 [facility] Potassium [Moles/volume] in Blood 3.8 mmol/L 3.4-5.1 [facility] Chloride [Moles/volume] in Blood 108 mmol/L 98-107 H [facility] Carbon dioxide, total [Moles/volume] in Blood 22 mmol/L 22-29 [facility] Center Calcium.ionized [Moles/volume] in Blood 1.16 mmol/L 1.13-1.32 [facility] Glucose [Mass/volume] in Blood 115 mg/dL 70-140 [facility] Urea nitrogen [Mass/volume] in Blood 8 mg/dL 6-20 [facility] QA FLAGS AND/OR RANGES MODIFIED BY [facility] RAPHIC UPDATE ON 01/11 AT 1515 Creatinine [Mass/volume] in Blood 0.5 mg/dL 0.50-0.90 [facility] Hematocrit [Volume Fraction] of Blood 35 % 36-45 L [facility] Hemoglobin [Mass/volume] in Blood by calculation 11.9 g/dL 11.5-15.5 [facility] ID Date Data Source [id number] 01/11/2020 10:26:42 AM [facility] Name Value Range Interpretation Code Description Data Corrie rce(s) Supporting Document(s) Bicarbonate [Moles/volume] in Serum 22 mmol/L 22-29 [facility] Chloride [Moles/volume] in Serum or Plasma 104 mmol/L 98-107 [facility] Creatinine [Mass/volume] in Serum or Plasma 0.66 mg/dL 0.50-0.90 [facility] Glucose [Mass/volume] in Serum or Plasma 115 mg/dL 70-140 [facility] Potassium [Moles/volume] in Serum or Plasma 4.0 mmol/L 3.4-5.1 [facility] Hemolyzed Sodium [Moles/volume] in Serum or Plasma 133 mmol/L 136-145 L [facility] Urea nitrogen [Mass/volume] in Serum or Plasma 9 mg/dL 6-20 [facility] QA FLAGS AND/OR RANGES MODIFIED BY FLORENTIN MATHEWS UPDATE ON 01/11 AT 1515 Anion gap 3 in Serum or Plasma 7 mmol/L 8-15 L [facility] Osmolality of Serum or Plasma by calculation 276 mosm/kg 275-300 [facility] Creatinine/Urea nitrogen [Mass Ratio] in Serum or Plasma 14 [facility] Calcium [Mass/volume] in Serum or Plasma 8.2 mg/dL 8.6-10.0 L [facility] QA FLAGS AND/OR RANGES MODIFIED BY [employer] RAP[facility]UCIA UPDATE ON 01/11 AT 1515 Glomerular filtration rate/1.73 sq M pre dicted among non-blacks [Volume Rate/Area] in Serum or Plasma by Creatinine-based formula (MDRD) >6 0 [facility] Glomerular filtration rate/1.73 sq M pre dicted among blacks [Volume Rate/Area] in Serum or Plasma by Creatinine-based formula (MDRD) >60 [facility] ID Date Data Source [id number] 01/06/2020 09:55:00 AM EDT [facility] Name Value Range Interpretation Code Description Data Corrie rce(s) Supporting Document(s) Albumin [Mass/volume] in Serum or Plasma by Bromocresol green (BCG) dye binding method 4.6 g/dL 3.5[facility].2 [facility] Bilirubin.total [Mass/volume] in Serum or Plasma 0.4 mg/dL <1.2 [facility] Calcium [Mass/volume] in Serum or Plasma 8.8 mg/dL 8.6-10.0 [facility] Chloride [Moles/volume] in Serum or Plasma 102 mmol/L 98-107 [facility] Creatinine [Mass/volume] in Serum or Plasma 0.74 mg/dL 0.50-0.90 [facility] Glucose [Mass/volume] in Serum or Plasma 77 mg/dL 70-140 [facility] Alkaline phosphatase [Enzymatic activity/volume] in Serum or Plasma 57 U/L 35-104 [facility] Potassium [Moles/volume] in Serum or Plasma 3.9 mmol/L 3.4-5.1 [facility] Protein [Mass/volume] in Serum or Plasma 7.2 g/dL 6.4-8.3 [facility] Sodium [Moles/volume] in Serum or Plasma 137 mmol/L 136-145 [facility] Aspartate aminotransferase [Enzymatic activity/volume] in Serum or Plasma 16 U/L <32 [facility] Urea nitrogen [Mass/volume] in Serum or Plasma 9 mg/dL 6-20 [facility] Osmolality of Serum or Plasma by calculation 281 mosm/kg 275-300 [facility] Creatinine/Urea nitrogen [Mass Ratio] in Serum or Plasma 12 [facility] Bicarbonate [Moles/volume] in Serum 26 mmol/L 22-29 [facility] Alanine aminotransferase [Enzymatic activity/volume] in Seru m or Plasma 7 U/L <33 [facility] Anion gap 3 in Serum or Plasma 9 mmol/L 8-15 [facility] Glomerular filtration rate/1.73 sq M pre dicted among non-blacks [Volume Rate/Area] in Serum or Plasma by Creatinine-based formula (MDRD) >6 0 [facility] Glomerular filtration rate/1.73 sq M pre dicted among blacks [Volume Rate/Area] in Serum or Plasma by Creatinine-based formula (MDRD) >60 [facility] ID Date Data Source [id number] 01/06/2020 10:10:43 AM [facility] Name Value Range Interpretation Code Description Data Corrie rce(s) Supporting Document(s) Lactate dehydrogenase [Enzymatic activit y/volume] in Serum or Plasma by Lactate to pyruvate reaction 146 U/L 122-214 [facility] ID Date Data Source [id number] 01/06/2020 11:41:03 AM [facility] Name Value Range Interpretation Code Description Data Corrie rce(s) Supporting Document(s) Leukocytes [#/volume] in Blood by Automated count 6.1 10*3/uL 4-10 [facility] Erythrocytes [#/volume] in Blood by Automated count 4.89 10*6/uL 4.1- 5.3 [facility] Hemoglobin [Mass/volume] in Blood 13.4 g/dL 11.5-15.5 [facility] Hematocrit [Volume Fraction] of Blood by Automated count 41.2 % 3 6-45 [facility] Erythrocyte mean corpuscular volume [Entitic volume] by Auto mated count 84.3 fL 80-96 [facility] Erythrocyte mean corpuscular hemoglobin [Entitic mass] by Automated count 27.5 pg 27-33 [facility] Erythrocyte mean corpuscular hemoglobin concentration [Mass/volume] by Automated count 32.6 g/dL 32.0-36.0 [facility] Erythrocyte distribution width [Ratio] by Automated count 14.2 % 11.5-14.5 [facility] Platelets [#/volume] in Blood by Automated count 188 10*3/uL 150-400 [facility] Confirmed Differential cell count method - Blood [facility] Neutrophils/100 leukocytes in Blood by Automated count 66 % [facility] Lymphocytes/100 leukocytes in Blood by Automated count 30 % [facility] Monocytes/100 leukocytes in Blood by Automated count 3 % [facility] Basophils/100 leukocytes in Blood by Automated count 1 % [facility] Neutrophils [#/volume] in Blood by Automated count 4.06 10*3/uL 1.8-7 .0 [facility] Lymphocytes [#/volume] in Blood by Automated count 1.81 10*3/uL 1.2-4 .0 [facility] Monocytes [#/volume] in Blood by Automated count 0.20 10*3/uL 0-0.8 [facility] Basophils [#/volume] in Blood by Automated count 0.03 10*3/uL 0-0.2 [facility] ID Date Data Source [id number] 11/29/2019 02:42:20 AM EDT [facility] Name Value Range Interpretation Code Description Data Corrie rce(s) Supporting Document(s) Progress Note [facility] BJUIVp9hMvLYBpIm83/OTJcgCCLvj1CeBWxuLGi9TOjqRQWdT7TrKUD0lY7rRLM4SHlUAaQjRkAwZKE2 lbm [file] ApSEcyJHMqMGl1Npo8VOb1LFJeRDT5IY2oPRZKQb4+UFrwuKJrcKzoNEGZUtczEfBFWiPaNC1MNOb= ID Date Data Source [id number] 12/05/2019 01:05:00 AM EDT [facility] Name Value Range Interpretation Code Description Data Corrie rce(s) Supporting Document(s) Levetiracetam, S 20.6 ug/mL 10.0-40.0 [facility] This test was developed and its performa nce characteristicsdetermined by [facility]. It has not been cleared or approvedby the Food and Drug Administration. ID Date Data Source [id number] 11/06/2019 12:13:11 AM EDT [facility] Name Value Range Interpretation Code Description Data Corrie rce(s) Supporting Document(s) Progress Note [facility] RALJAh3eOdKILmKq68/YSJldPNUhw0UkDHffNBj5HQyyVFJyY4TyYUL7yH2uION2DXzYNbAzXtJdKaKm lbm [file] /RADxtZKIWhA2W0hsZzu0qh+zLXp/VISCERA WASHER/e3Zrz1TrYfYwAopdDoqdNntE65mdFVqbSuupSqQHkuc+rZl [file] hChQjwFreetUKKqFSYqi1fRL9DjLLZeZEgHbZdon+hYzTb4DCEjYwtj7usAEm95eT/3/[place]+xcs+M4h5m [file] YkS4PUB6AWjtJVYEKk4T ID Date Data Source [id number] 11/05/2019 01:06:00 PM EDT [facility] ([facility] ) Name Value Range Interpretation Code Description Data Corrie rce(s) Supporting Document(s) Free T4 2.21 ng/dL 0.76-1.46 [facility] ([facility] ) Thyroid Stimulating Hormone Laboratory test result 0.358-3.740 [facility] ([facility]) ID Date Data Source [id number] 09/01/2019 08:30:00 AM EDT [facility] ([facility] ) Name Value Range Interpretation Code Description Data Corrie rce(s) Supporting Document(s) Thyroglobulin Ab [Units/volume] in Serum or Plasma Laboratory test re sult [facility] ([facility] ) ID Date Data Source [id number] 09/01/2019 08:30:00 AM EDT [facility] ([facility] ) Name Value Range Interpretation Code Description Data Corrie rce(s) Supporting Document(s) Thyroid Stimulating Hormone 5.420 uIU/ML 0.358-3.740 [facility] ([facility]) Free T4 0.82 ng/dL 0.76-1.46 [facility] ([facility]) ID Date Data Source [id number] 09/01/2019 08:30:00 AM EDT [facility] ([facility]) Name Value Range Interpretation Code Description Data Corrie rce(s) Supporting Document(s) Thyroperoxidase Ab [Units/volume] in Serum or Plasma 28.6 U/ML [facility] ([facility]) ID Date Data Source [id number] 08/08/2019 07:00:00 PM EDT [facility] Name Value Range Interpretation Code Description Data Corrie rce(s) Supporting Document(s) Progress Note [facility] CRTBCe3wVuWZAcZp08/UMJloYYRcl5DwCXayHJp3DRhjWLFkI3AlHWS4rV0zVDS2EStSFaUwYmHrPNVc [facility] [file] NSA7KOVSmzsYqLriMsenyFHKvACVjo5eMC6EnVAErCFcYkYeoa+aRhUx3LKJcBwph1kgOXr49kG/3/[place] [file] SP/MAP/T+manager analytical+5//XwDqFAK5X96sGjtWePPl/iPqTWe [file] RN OSTOMY+Da4ZRWTeXAo5M0E1JWWuRTa2M9IFG2HITEJpQZnfWUsnOHTxHSt1C1E6NROpC6OMD2Becixlxa9+ UB5OW55ERATbJKr4G2B4aIOrB2M5mNfWlLB8FZ1TGW9HqNg1bIQzbE0+UP6GT6VKBvJdSHe5L6R5oIKn J8X5xNuRpIX1NX4YUR5JsDCvSLMtdlToXn1pW2MMBG bJZkVDDWI4AR6IlORlJQ1LxNAHH6PpbGXcDo8rKPcqjPCckQ9gEt2iIKnpXA5JTxCFUZoNOMC5QE2HaM EgMO6XfFIVG4FjwZZaKt5uBKhlxWTeeg3+EE0YQAFvCm2UWb4+JFkznjDeNfiMThN4OCHsm0PxIPk3RN 4JTQ5bwGejFSE8Bq8RyPG1mJGnN4uCDF3AiMIuD98b vHKrYOSnOo6YCdU9kfBfpH4SGI44vHCmt3U5XSJyU8ruZPomn39jZFhiEPfGIB9dBFMOYAatKCohCUX0 SpQwwqliHIJiKh0ATeBiGLl4wT9fdJB9YDE8CfjkiSYoOSkcWbJbWfAqCiQ2fNcrdxi5SUrlDW9uYGyz czptZXRhLyc+YSvjRJDmOKBvZteDZSBadQ0celC6yy OwHIpbrLJzIm1aq2c7BnetSj4jXt8hLYi4PlWyBeHwIAZyXk8wqX69HOuyukQnJz8VUhYgHRI2V6EuBk pSREY+CKpuITcneRu1gIPuTPKfIk8WOWQtJGLtHHRqOTHePGVfUZEqGQNoKFIzGFJjBIVaHFMqLBMgOG AgICAgICAgICAgICAgICAgICAgICAgICAgICAgICAg ELBoZRRgFWPpVQFpAEFdPFGuFHQiEEOuTHOsTQPrNF8KYSCzWILqDSBcSUJfEQZpUXQpBACpKENzCABj ICAgICAgICAgICAgICAgICAgICAgICAgICAgICAgICAgICAgICAgICAgICAgICAgICAgICAgICAgICAg VVEeJLCmDFExQHFdQG9GKTWdPKWpUGBoKMEiNYNwCJ AgICAgICAgICAgICAgICAgICAgICAgICAgICAgICAgICAgICAgICAgICAgICAgICAgICAgICAgICAgIC CjHWYtJMBaXEWjDCTxESKcQZFsLATuDB3OJYUwEEUzTCZuQQGaRPLqJTCgHMBrNBCeTGWsTIFtRRFtYZ AgICAgICAgICAgICAgICAgICAgICAgICAgICAgICAg CUSeHNCgVIRbVHWwLXGjDYJiTVNkJOCaMRQpEUHmLYEkQZ9LZBWqZRAfDIXuOBByAGDgVICcLNInTICt ICAgICAgICAgICAgICAgICAgICAgICAgICAgICAgICAgICAgICAgICAgICAgICAgICAgICAgICAgICAg GARzZWSwKVSlKPLaJNLcOU6IQIDxZTTiWWHtCOEcMS AgICAgICAgICAgICAgICAgICAgICAgICAgICAgICAgICAgICAgICAgICAgICAgICAgICAgICAgICAgIC SrWCEoCIEsSBChRSHoRBYhTNNdURKgGKZeVT2TUQQfFTFsUPYvVYBlEIHnSFRhEPSvWOHnHUGtZRAeVO AgICAgICAgICAgICAgICAgICAgICAgICAgICAgICAg BAPsVOShHKIkKZEoPESyIKNtPUXsSWBmXXTmOYLoGBFtPAWbIP1GZFGtCNPmULZhOECjTIOqLWYqBKVq ICAgICAgICAgICAgICAgICAgICAgICAgICAgICAgICAgICAgICAgICAgICAgICAgICAgICAgICAgICAg OWWuTMCsNGXeJGHiNVWoNAZvLR1KJVEoRUFeEKBhWO AgICAgICAgICAgICAgICAgICAgICAgICAgICAgICAgICAgICAgICAgICAgICAgICAgICAgICAgICAgIC BkRGJvOWXoMLYdIJObGFMnBMApZLCpWMIkZHCmHP1QOCQcMTWxWSJqNNAkPNJsURZxWDBwZVDaCIJvWI AgICAgICAgICAgICAgICAgICAgICAgICAgICAgICAg DNSnTPCpEOFaSBDqNWUnNQNiCDEeIPCfUGSiQDFySXTjXJGnHYZxCR6GPS52tXWma3P3PPUkKL6dxgm/ Do3NPAvvejByuFOpVL9HMfQiFT2vnz7QNgLnYJ3ouy6UBFgEUvXqE5C7bZCnZOMmNZLBKjIbS52qXBgf Wf59HBaiPRSiEbEqEIf2Sh7WLfOrO1ghQVFlBdH2XN VjBfJ1GTLuLdI5MJVnOpXuWOQdDYUmHFAwTBHUQIL7LSSpEcYjDiIcWDGnGUzqIMJCNSNaIDQnCgDuJJ xmKP8Mk3WrcFH0OIi+Gq3YRY8tw1RdXIvsKWCjQB7fjy9ERDbHCqXnL0GukkI6FTD2ZXPsYq3ITMJsEH EghUVtUZWmIGVLMkLvZ9FeiQ56YRPUQl2+DQplbmRv VmoEIhG8MQRbx5TeILe2HE8VEKUaDCz3zGVlJIEyG2Jrq1EcTt84AUCeYtwaVLetyelhzM5zHPebn9Lr WS8HIRM2TLZvRpZhPaRtINFmSCtySETCXCuJVsMbB1Tdj5EmPxT4BFDiZiAbIFohQFVmEeC7PK96oDnq MT7DXLZnRUSrNX54XST1NZQyZh9OWd4UXcNfPN0aia 3UQTVpBKPkCkuGEhw4VLptVI3WlJDaC4XczLXah7mPMnZeG9DHBZS5NBGqUa8KRHDwQjDlOMGwYOqoSN 8oNQKzFXOEgCwiohP7PP1JUN1ggoHiLA5JCsEdFr3lWq4KHcTxX4TvP1DrMYCxAXNIJWepNE9BGSffIN 4sMY1Fk4YUbJGcgK3itr1UECQkBUZwKirfcc2XMrfn D4Z0sYayQXUaKwwoWQSFENjbDJ8HPTRfJOY0DNEmWuCiEKKXAnXzZ44cQA0TN7Gvh68hWzT7PSMzZiIi RHswTR08uFbjfyMnbIQhgKcqPB4JQn8+DQplbmRvYmoNCnhyZWYNCjAgNDENCjAwMDAwMDAwMDAgNjU1 NzDlQq7GKVNgNQOoFAEsMyLsYMXfLQDhYFkgKIChOP S4VnRtQPLdICXuDP3OTkMsLOHkHWtkFCmcXXTyYOMqgf8HBEMgXHWcIYU4ZgOfMCXpCAXeYPwvLHRoCB W2Kpd7OELfVGJqKO8LTrEeTBYvQSM1LQAqPGRyFDHcxv0UKHHhNJXvCPJ1EQDvHTErTWCzXJwcXRDvPN U8Yzp8YZRkTDWvHM6GMrYoHMHoVZVtTmPtIQBsLIKz by6VUVHoHSLgKCH1PhXzVBZqHFHgANggLTDtHMLjAOCqTEXjLOQwRM7RHdMrVHEaMAYqInwzHYMlPAXo tv5VQPGhRWYgDmG7ITHjZBAzEUBrXNtsLYGlKCA9HiV5JXJhYUZzSB4QDmXaRXRlEtVgHRJpBAHzSTZb sz0KOIAyAKHsZSV7OiQjHYHnIBIeYPsmWQGiYZSaHo q2JLTgMBTrVT6IYpUeURXfYvO8ASJrOEHfCUYmca6COZWiDOPpKqJpAJWfWAVvWPNlITsxXWQhEEQ4DX M8CCLpIINlXR1PZoLaPVGzZfssJWNhZSDjZNVode5ZXDAkFDHkUJOgEFMeHBKtOQArSXzpDTSiEEReTy QsEAFaJVRmEG3KSoNdQLZmNsE2XIimONMpSIHucy8M TGGsIAHzQSm8VSLbLZWyEKSuRJlhQVBiJVGnYds6VCOlDPQjAT1FYsUhBLOyZgL9UGGvBMDdCBYfwz3E INAaFLUaOwU4MJZwKNQoOWPpWAcqMPNsDVBlYrMzTZNoSYCjBV0HZyYsLJJaZWDpFmVyDGFcWYJrxe2S WNRfBOZ1KkPnFrOlBHQjJQRbDStsTKThNWWmAWT4IC RcPHJjCW5MSoAiUNOkNQE9UJUwOVLbGDJtps7BKDHqWZW1ACowYGZxXNKjQUIaNYaqCOLiBDT7NDOqFQ WwCIPzWT3OBfSiBQLxZDTpXSEyLTStFRGewy9YOYAdUNT8CVfpSTNiAJIpNHUvPDmmHOCwNAR3EfCiBX GcFJTlWH7MWiZiSSCgGJjrAvZnAMZmBRQvqi4ZMTFn FXR5WiMoIEWwARYhBQZwTMd3dfVlsOPuNDe1HD7CP5RzxiXkKWROHt0Lp843WDHzRLZsOg5KT7bvDk8b LRQjUZNKJc2WOGh5QuRiSSNeWCkeRmldIRNtQiRaVMU6HiIeJ5F1IYktUgm+MGl8UiN2XhDpWVOmZRZ2 WMAwDtUpNxY5QnHvWKL6TJOlVx6bFTXFBo7+AYvciGEjiEdwKDTZEpC7JsE3KNwbPBEGOh9V ID Date Data Source [id number] 04/26/2019 04:04:00 PM EST [facility] 1 OrderSheet [facility] Emergency Department [address] [place] [address] Phone #: ext- [phone] 04/26/2019 15:25 Patient: [...] R.N.18:05 04/26/2019) Physician;DIAGNOSTIC STUDY ORDERS 2 OrderSheet [facility] Emergency Department [address] [place] [address] Phone #: ext- [phone] 04/26/2019 15:25 Patient: [...] rce(s) Supporting Document(s) ID Date Data Source [id number] 04/26/2019 04:04:00 PM EST [facility] 1 Medication Reconciliation Report [facility] Emergency Department [address] [place] [address] Phone #: ext- [phone] 04/26/2019 15:25 Patient: [...] to the patient:None. 2 Medication Reconciliation Report [facility] Emergency Department [address] [place] [address] Phone #: ext [phone] 04/26/2019 15:25 Patient: NERY WAN Sex: F : 1990 Age: 29y Name Value Range Interpretation Code Description Data Corrie rce(s) Supporting Document(s) ID Date Data Source [id number] 04/26/2019 04:04:00 PM [facility] 1 Medication Administration Record [facility] Emergency Department [address] [place] [address] Phone #: ext- [phone] 04/26/2019 15:25 Patient: NERY WAN Acct#: [id number] Sex: F : 1990 Age: 29yWeight: 74.8 kgHeight/Length: 64 inBMI: 28.3ALLERGIES: Ketamine, Latex, Fentanyl and RelatedDate/Time Medication Administered Medication Ordered Name Value Range Interpretation Code Description Data Corrie rce(s) Supporting Document(s) ID Date Data Source [id number] 04/26/2019 04:04:00 PM [facility] 1 General Instructions [facility] Emergency Department [address] [place] [address] Phone #: ext [phone] 04/26/2019 15:25 Patient: NERY WAN Sex: F : 1990 Age: 29yMild pre-menopausal dysfunctional uterine bleeding. (Minimal).Vaginal discharge (Mild).INSTRUCTIONSDrink plenty of fluids.Warnings: GENERAL WARNINGS: Return or contact your physician immediately if your conditionworsens or changes unexpectedly, if not improving as expected, or if other problems arise.Follow- up:Follow up with a cook starch if not better. Call for an appointment. Reason for referral: evaluation,treatment and Dysfunction uterine bleeding / Cystitis / Bacterial vaginosis.Understanding of the discharge instructions verbalized by patient. ADDITIONAL INFORMATIONDysfunctional Uterine BleedingDysfunctional uterine bleeding, also called abnormal uterine bleeding, is a condition in which bleeding 2 General Instructions [facility] Emergency Department [address] [place] [address] Phone #: ext- [phone] 04/26/2019 15:25 Patient: NERY WAN Sex: F : 1990 Age: 29yis abnormal and occurs at unexpected times of the month. This happens because of changes in thehormones that help control a woman's menstrual cycle each month.The bleeding may be heavier or network systems consultant than normal. If you have heavy bleeding [...] better even with treatment 3 General Instructions [facility] Emergency Department [address] [place] [address] Phone #: ext- [phone] 04/26/2019 15:25 Patient: NERY WAN Sex: F : 1990 Age: 29y Fever of 100.4F (38C) or higher, or as directed by your provider Signs of anemia, such as pale skin, extreme fatigue or weakness, or shortness of breath Dizziness or fainting [id number] [employer]. [address] [place] [address]. All rights re served. This information is [...] more than one partner 4 General Instructions [facility] Emergency Department [address] [place] [address] Phone #: ext- [phone] 04/26/2019 15:25 - [...] [facility] BV is most often treated [...] or cream you're prescribed. 5 General Instructions [facility] Emergency Department [address] [place] [address] Phone #: ext- [phone] 04/26/2019 15:25 Patient: NERY WAN Sex: F : 1990 Age: 29y You or any partners you have sex with have new symptoms, such as a rash, joint pain, or sores. [id number] [employer]. [address] [place] [address]. All rights reserved. This information is not intended as asubstitute for professional medical care. Always follow your healthcare professional's instructions. You have been given the following additional information: Dysfunctional Uterine Bleeding Bacterial Vaginosis (BV)(Electronically signed by Vamsi Novoa, Physician 04/27/2019 08:06) Name Value Range Interpretation Code Description Data Corrie rce(s) Supporting Document(s) ID Date Data Source [id number] 04/26/2019 04:04:00 PM EST [facility] 1 Clinical Report - Nurses [facility] Emergency Department [address] [place] [address] Phone #: ext- [phone] 04/26/2019 15:25 Patient: NERY WAN Sex: F : 1990 Age: 29yTRIAGEArrived by private vehicle. Historian: patient.Acuity: LEVEL 3.Chief Complaint: VAGINAL BLEED and ABDOMINAL PAIN.Onset. (1 weeks ago). 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 --15:54 04/26/19 Wesley Childers RN.PHYSICAL UVAVUWXAMR12:13 04/26/19. Ambulatory to room.GENERAL / NEURO / [...] Sheffield R.N. 18:15 04/26/19. Patient transported to [facility] by wheelchair with bottle house quality control technician. --18:15 04/26/19 Tacos Sharif R.N. 18:15 [...] RR: 16. O2 saturation: 98%. --18:57 04/26/19 [place] [address] 19:03 04/26/19. [facility] with bottle house quality control technician. --19:18 04/26/19 Tacos Sharif R.N. Reassurance [...] / DISCHARGE 4 Clinical Report - Nurses [facility] Emergency Department [address] [place] [address] Phone #: ext- [phone] 04/26/2019 15:25 Patient: NERY WAN Sex: F [...] medication(s). Treatments reviewed. Reviewed referral to a cook starch and primary care physician. Patient verbalized understanding. Written instructions provided in Russian. The patient was discharged by the physician. [...] rce(s) Supporting Document(s) ID Date Data Source [id number] 04/26/2019 04:04:00 PM [facility] 1 Clinical Report - Physicians/Mid Levels [facility] Emergency Department [address] [place] [address] Phone #: ext- [phone] 04/26/2019 15:25 Patient: NERY WAN Sex: F [...] in the emergency department. ( seen at [facility] 3 days ago).REVIEW OF SYSTEMSNo [...] air. 2 Clinical Report - Physicians/Mid Levels [facility] Emergency Department [address] [place] [address] Phone #: ext- [phone] 04/26/2019 15:25 Patient: NERY WAN Sex: F [...] Test Result Flag Units (Reference) [place] [address] ---------NAME--------- NUMBER SEX AGE ADMIT DISC. XRAY# F/C TYPE SOCO Wisdom [id number] F 29 04/26/19 [id number] XBE E/R DATE OF : 1990 M/R# [id number] #: [phone] VT-05 LOCATION: EMERGENCY DEPT TRANSCRIBED: 04/26/19 19:09 IF US TRANSVAGINAL [id number] COMPLETED:04/26/19 19:10 meme [id number] {REASON FOR PELVIS: irregular vaginal bleeding -- PHYSICIAN: JONN SCHAEFER -- -- R A D I O L O G Y R E P O R T -- PATIENT HISTORY: intermittent pelvic pain and irregular vaginal bleeding, , currently on exelon arm contraceptive device, h/o of hodgkins lymphoma [phone], w/bone marrow transplant in 2011 and remission since 2013 EXAM: US Pelvis, Complete. -- CLINICAL HISTORY: Intermittent pelvic pain and irregular vaginal bleeding, , currently on exelon arm contraceptive device, h/o of hodgkins lymphoma [phone], w/bone marrow transplant in 2011 and remission since 2013 -- TECHNIQUE: Transvaginal pelvic ultrasound (complete) with image documentation. -- COMPARISON: Transabdominal pelvic ultrasound earlier the same day. -- -- FINDINGS: -- 3 Clinical Report - Physicians/[facility] Emergency Department [address] [place] [address] Phone #: ext- [phone] 04/26/2019 15:25 Patient: [...] ABD //T// PELV W/O ORAL [place] [address] ---------NAME--------- NUMBER SEX AGE ADMIT DISC. XRAY# F/C TYPE SOCO Wisdom [id number] F 29 04/26/19 [id number] XBE E/R DATE OF : 1990 M/R# [id number] #: [id number] VT-05 LOCATION: EMERGENCY DEPT TRANSCRIBED: 04/26/19 19:[address] ABD //T// PELV W/[place] ORAL W/[place] [id number] COMPLETED:04/26/19 19:15 meme [id number] Reason(s): Abdominal Pain Pelvic Pain PHYSICIAN: JONN [...] FINDINGS: 4 Clinical Report - Physicians/[facility] Emergency Department [address] [place] [address] Phone #: ext- [phone] 04/26/2019 15:25 Patient: NERY WAN Sex: F [...] - 1.23) 5 Clinical Report - Physicians/[facility] Emergency Department [address] [place] [address] Phone #: ext- [phone] 04/26/2019 15:25 Patient: NERY WAN Sex: F : 1990 Age: 29y \\BLDo\\INR INTERPRETATION\\BLDx\\ Therapeutic range for Coumadin andrelated oral anticoagulants. -International Normalized Ratio (INR): 2.0 - 3.0 for VenousThrombosis, Pulmonary Embolus, Tissue heart valves, Acute VT, Atrial Fibrillation, Valvular heartdisease and recurrent Systemic [...] yrs 6 Clinical Report - Physicians/Mid Levels [facility] Emergency Department [address] [place] [address] Phone #: ext- [phone] 04/26/2019 15:25 Patient: NERY WAN Sex: F : 1990 Age: 29y NON-AA GFR >60 mL/min AFR AMER GFR >60 mL/min Male GFR Interprentation 20-49 yrs >60 mL/min Ejmzvk24-53 yrs >56 mL/min Normal 60-69 yrs >49 mL/min Normal 70-79yrs>42 mL/min Normal 80 and above >35 mL/min Normal Female GFRInterpretation 20-39 yrs >60 mL/min Normal 40-49 yrs >58 mL/minNormal 50-59 yrs > 51 mL/min Normal 60-69 yrs >45 mL/min Afittc62-18 yrs >39 mL/min Normal 80 and above >32 mL/min NormalCPK: (HUSSEIN: 04/26/2019 18:05) ( MsgRcvd 04/26/2019 18:59) Final results Test Result Flag Units (Reference) CPK 58 U/L (30 - 170)US Pelvis: (HUSSEIN: 04/26/2019 17:55) ( MsgRcvd 04/26/2019 19:11) Final resultsUS PELVICReason(s): Abnormal BleedingTRANSPORTATION: WC IV? O2? Oxygen?(No) Room: ED: No Exam [facility] [address] [place] [address] ---------NAME--------- NUMBER SEX AGE ADMIT DISC. XRAY# F/C TYPE SOCO Wisdom [id number] F 29 04/26/19 [id number] XBE E/R DATE OF : 1990 M/R# [id number] #: [id number] [place]-05 LOCATION: EMERGENCY DEPT TRANSCRIBED: 04/26/19 19:10 IF US PELVIC [id number] COMPLETED:04/26/19 19:11 mmee [id number] Reason(s): Abnormal Bleeding PHYSICIAN: JONN BR R A D I O L O G Y R E P O R T PATIENT HISTORY: intermittent pelvic pain and irregular vaginal bleeding, , currently on exelon arm contraceptive device, h/o of hodgkins lymphoma [id number], w/bone marrow transplant in 2011 and remission since 2013 EXAM: US Pelvis, Complete. CLINICAL HISTORY: Intermittent pelvic pain and irregular vaginal bleeding, , currently on exelon arm contraceptive device, h/o of hodgkins lymphoma [phone], w/bone marrow transplant in 2011 and remission since 2013 TECHNIQUE: Transabdominal pelvic ultrasound (complete) with image documentation. COMPARISON: None provided. FINDINGS: ENDOMETRIUM: Normal thickness. UTERUS/CERVIX: The uterus is not seen. RIGHT OVARY: Not seen LEFT OVARY: Not seen. FREE FLUID: No free fluid. Bladder: No filling defect or bladder wall mass. IMPRESSIONS: 7 Clinical Report - Physicians/Mid Levels [facility] Emergency Department [address] [place] [address] Phone #: ext- [phone] 04/26/2019 15:25 Patient: [...] being treated for bacterial vaginosis by her cook starch and she is on an antibiotic. Labs [...] (Mild). 8 Clinical Report - Physicians/Mid Levels [facility] Emergency Department [address] [place] [address] Phone #: ext- [phone] 04/26/2019 15:25 Patient: NERY WAN Sex: F : 1990 Age: 29yINSTRUCTIONS Drink plenty of fluids. Warnings: GENERAL WARNINGS: Return or contact your physician immediately if your condition worsens or changes unexpectedly, if not improving as expected, or if other problems arise. Follow-up: Follow up with a cook starch if not better. Call for an appointment. Reason for referral: evaluation, treatment and Dysfunction uterine bleeding / Cystitis / Bacterial vaginosis. Understanding of the discharge instructions verbalized by patient.(Electronically signed by Vamsi Novoa, Physician 04/27/2019 08:06) Name Value Range Interpretation Code Description Data Corrie rce(s) Supporting Document(s) ID Date Data Source [id number] 04/26/2019 08:43:00 PM [facility] [address] [facility] [place] [address] ---------NAME--------- NUMBER SEX AGE ADMIT DISC. XRAY# F/C TYPE SOCO NERY Wisdom [id number] F 29 04/26/19 [id number] XBE E/R DATE OF : 1990 M/R# [id number] PH#: [phone] [place]-05 LOCATION: EMERGENCY DEPT TRANSCRIBED: 04/26/19 19:[address] ABD //T// PELV W/O ORAL W/[place] [id number] COMPLETED:04/26/19 19:15 meme [id number] Reason(s): Abdominal Pain Pelvic Pain PHYSICIAN: JONN [...] rce(s) Supporting Document(s) ID Date Data Source [id number] 04/26/2019 07:10:00 PM [facility] [address] [place] [address] ---------NAME--------- NUMBER SEX AGE ADMIT DISC. XRAY# F/C TYPE SOCO GABRIEL M [id number] F 29 04/26/19 [id number] XBE E/R DATE OF : 1990 M/R# [id number] #: [id number] [place]-05 LOCATION: EMERGENCY DEPT TRANSCRIBED: 04/26/19 19:10 IF US PELVIC [id number] COMPLETED:04/26/19 19:11 meme [id number] Reason(s): Abnormal Bleeding PHYSICIAN: JONN BR======== R A D I O L O G Y R E P O R T =PATIENT HISTORY:intermittent pelvic pain and irregular vaginal bleeding, , currently onexelon arm contraceptive device, h/o of hodgkins lymphoma [id number], w/bonemarrow transplant in 2011 and remission since 2013EXAM: US Pelvis, Complete.CLINICAL HISTORY: Intermittent pelvic pain and irregular vaginal bleeding, ,currently on exelon arm contraceptive device, h/o of hodgkins [id number], w/bone marrow transplant in 2011 and remission [...] rce(s) Supporting Document(s) ID Date Data Source [id number] 04/26/2019 07:09:00 PM [facility] [address] [facility] [place] [address] ---------NAME--------- NUMBER SEX AGE ADMIT DISC. XRAY# F/C TYPE SOCO NERY Wisdom [id number] F 29 04/26/19 [id number] XBE E/R DATE OF : 1990 M/R# [id number] #: [id number] [place]-05 LOCATION: EMERGENCY DEPT TRANSCRIBED: 04/26/19 19:09 IF US TRANSVAGINAL [id number] COMPLETED:04/26/19 19:10 meme [id number] {REASON FOR PELVIS: irregular vaginal bleeding PHYSICIAN: JONN BR = R A D I O L O G Y R E P O R T PATIENT HISTORY:intermittent pelvic pain and irregular vaginal bleeding, , currently onexelon arm contraceptive device, h/o of hodgkins lymphoma [id number], w/bonemarrow transplant in 2011 and remission since 2013EXAM: US Pelvis, Complete.CLINICAL HISTORY: Intermittent pelvic pain and irregular vaginal bleeding, ,currently on exelon arm contraceptive device, h/o of hodgkins [id number], w/bone marrow transplant in 2011 and remission [...] rce(s) Supporting Document(s) ID Date Data Source [id number] 05/02/2019 11:39:00 AM [facility] [address] Name Value Range Interpretation Code Description Data Corrie rce(s) Supporting Document(s) Bacteria identified in Blood by Culture [facility] NO GROWTH AFTER 5 DAYS ID Date Data Source [id number] 05/02/2019 09:18:00 PM [facility] Name Value Range Interpretation Code Description Data Corrie rce(s) Supporting Document(s) CULTURE BLOOD [facility] _CULTURE BLOOD_ TEST [place] [address] CLIA# [id number] SEE SCANNED REPORT{ PRELIM ID Date Data Source [id number] 05/02/2019 09:18:00 PM [facility] Name Value Range Interpretation Code Description Data Corrie rce(s) Supporting Document(s) CULTURE BLOOD [facility] _CULTURE BLOOD_ TEST PERFORM ED AT [address] [address] [facility]# [id number] SEE SCANNED REPORT{ PRELIM ID Date Data Source [id number] 04/26/2019 06:59:00 PM [facility] Name Value Range Interpretation Code Description Data Corrie rce(s) Supporting Document(s) Creatine kinase [Enzymatic activity/volume] in Serum or Plasma 5 8 U/L 30 - 170 [facility] ID Date Data Source [id number] 04/26/2019 06:59:00 PM [facility] Name Value Range Interpretation Code Description Data Corrie rce(s) Supporting Document(s) COMPREHENSIVE METABOLIC PANEL [facility] COMPREHENSIVE METABOLIC PANEL Sodium [Moles/volume] in Serum or Plasma 139 mEq/L 134 - 153 [facility] Potassium [Moles/volume] in Serum or Plasma 4.2 mEq/L 3.6 - 5.0 [facility] Chloride [Moles/volume] in Serum or Plasma 104 mEq/L 98 - 107 [facility] Carbon dioxide, total [Moles/volume] in Serum or Plasma 26 MEQ/L 22 - 30 [facility] Glucose [Mass/volume] in Serum or Plasma 86 MG/DL 65 - 110 [facility] BUN 19 MG/DL 7 - 21 [facility] Creatinine [Mass/volume] in Serum or Plasma 0.9 MG/DL 0.7 - 1.5 [facility] BUN/CREAT 21 8 - 27 [facility] Protein [Mass/volume] in Serum or Plasma 7.1 G/DL 6.3 - 8.2 [facility] Albumin [Mass/volume] in Serum or Plasma 4.5 G/DL 3.9 - 5.0 [facility] Globulin [Mass/volume] in Serum by calculation 2.6 GM/DL 2.4 - 3.2 [facility] A/G RATIO 1.7 0.8 - 2.0 [facility] Calcium [Mass/volume] in Serum or Plasma 9.6 MG/DL 8.4 - 10.2 [facility] Bilirubin.total [Mass/volume] in Serum or Plasma 0.7 MG/DL 0.2 - 1.3 [facility] Alkaline phosphatase [Enzymatic activity/volume] in Serum or Plasma 52 U/L 38 - 126 [facility] Aspartate aminotransferase [Enzymatic activity/volume] in Serum or Plasma 13 U/L 5 - 40 [facility] Alanine aminotransferase [Enzymatic activity/volume] in Seru m or Plasma 10 U/L 7 - 56 [facility] Anion gap 3 in Serum or Plasma 9.0 mmol/L 8.0 - 16.0 [facility] AGE 29 yrs [facility] NON-AA GFR >60 mL/min [facility] AFR AMER GFR >60 mL/min [facility] Male GFR In terprentation 20-49 [...] >32 mL/min Normal ID Date Data Source [id number] 04/26/2019 06:59:00 PM [facility] Name Value Range Interpretation Code Description Data Corrie rce(s) Supporting Document(s) Lipase [Enzymatic activity/volume] in Serum or Plasma 33 U/L 13 - 60 [facility] ID Date Data Source [id number] 04/26/2019 06:42:00 PM [facility] Name Value Range Interpretation Code Description Data Corrie rce(s) Supporting Document(s) aPTT in Blood by Coagulation assay 26.1 SECONDS 24.8 - 36.7 [facility] ID Date Data Source [id number] 04/26/2019 06:42:00 PM [facility] Name Value Range Interpretation Code Description Data Corrie rce(s) Supporting Document(s) Prothrombin time (PT) 12.4 SECONDS 11.0 - 15.5 [facility] INR in Platelet poor plasma by Coagulation assay 0.91 0.93 - 1. 23 L [facility] \\BLDo\\INR INTERPRETATION\\BLDx\\ Therapeutic range for Coumadin and related oral anticoagulants. - International Normalized Ratio (INR): 2.0 - 3.0 for Venous Thrombosis, Pulmonary Embolus, Tissue heart valves, Acute VT, Atrial Fibrillation, Valvular heart disease and recurrent Systemic Embolism. -International Normalized Ratio (INR): 2.5 - 3.5 for Mechanical Prosthetic valve. ID Date Data Source [id number] 04/26/2019 06:31:00 PM EST [facility] Name Value Range Interpretation Code Description Data Corrie rce(s) Supporting Document(s) CBC W/AUTOMATED DIFF [facility] COMPLETE BLOOD COUNT Leukocytes [#/volume] in Blood by Automated count 5.8 10^3/uL 4.2 - 1 1.0 [facility] Erythrocytes [#/volume] in Blood by Automated count 4.31 10^6/uL 4. 20 - 5.40 [facility] Hemoglobin [Mass/volume] in Blood 12.2 g/dL 12.0 - 16.0 [facility] Hematocrit [Volume Fraction] of Blood by Automated count 37.8 % 3 7.0 - 47.0 [facility] Erythrocyte mean corpuscular volume [Entitic volume] by Auto mated count 87.7 fL 81.0 - 101 [facility] Erythrocyte mean corpuscular hemoglobin [Entitic mass] by Automated count 28.3 pg 27.0 - 34.0 [facility] Erythrocyte mean corpuscular hemoglobin concentration [Mass/volume] by Automated count 32.3 g/dL 31.0 - 36.0 [facility] Erythrocyte distribution width [Ratio] by Automated count 12.1 % 11.5 - 14.5 [facility] Platelets [#/volume] in Blood by Automated count 195 10^3/uL 150 - 45 0 [facility] Platelet mean volume [Entitic volume] in Blood by Automated count 9.2 fL 7.4 - 10.4 [facility] Neutrophils/100 leukocytes in Blood by Automated count 56.2 % 37. 0 - 80.0 [facility] Lymphocytes/100 leukocytes in Blood by Manual count 36.0 % 25.0 - 40.0 [facility] Monocytes/100 leukocytes in Blood by Automated count 6.0 % 3.0 - 8.0 [facility] Eosinophils/100 leukocytes in Blood by Automated count 1.2 % 0.0 - 7.0 [facility] Basophils/100 leukocytes in Blood by Automated count 0.3 % 0.0 - 2.5 [facility] %IG 0.3 % 0.0 - 0.0 H [facility] al %NRBC 0.0 % 0.0 - 0.0 [facility] Neutrophils [#/volume] in Blood by Automated count 3.28 10^3/uL 2.00 - 6.90 [facility] Lymphocytes [#/volume] in Blood by Automated count 2.10 10^3/uL 0.60 - 3.40 [facility] Monocytes [#/volume] in Blood by Automated count 0.35 10^3/uL 0.00 - 0.90 [facility] Eosinophils [#/volume] in Blood by Automated count 0.07 10^3/uL 0.00 - 0.70 [facility] Basophils [#/volume] in Blood by Automated count 0.02 10^3/uL 0.00 - 0.20 [facility] #IG 0.02 10^3/uL 0.00 - 0.10 [facility] #NRBC 0.00 10^3/uL 0.00 - 0.00 [facility] ospital MANUAL DIFF NOT INDICATED [facility] RBC MORPH NOT INDICATED [facility] spital ID Date Data Source [id number] 04/26/2019 05:32:00 PM EST [facility] Name Value Range Interpretation Code Description Data Corrie rce(s) Supporting Document(s) [facility] Clean Catch [facility] COLOR yellow NORMAL: Yellow [facility] ospital CLARITY clear NORMAL: Clear [facility] Specific gravity of Urine by Test strip 1.030 1.001 - 1.030 [facility] pH 5 5 - 9 [facility] Glucose [Mass/volume] in Urine by Test strip NORM NORMAL: Negat sy [facility] Bilirubin.total [Presence] in Urine by Test strip NEG NORMAL: Negative [facility] Ketones [Presence] in Urine by Test strip 5 NORMAL: Negative A [facility] Protein [Mass/volume] in Urine by Test strip 15 NORMAL: Negat sy [facility] Nitrite [Presence] in Urine by Test strip NEG NORMAL: Negative [facility] BLOOD 25 NORMAL: Negative A [facility] Leukocyte esterase [Presence] in Urine by Test strip 25 STORMY L: Negative [facility] Urobilinogen [Mass/volume] in Urine by Test strip NOR less sapphire n 1.0 mg/dL [facility] MICROSCOPIC See Below [facility] WBC 1 - 3 NORMAL: NONE SEEN [facility] Erythrocytes [#/volume] in Urine by Test strip 1 - 3 NORMAL: NON E SEEN [facility] EPITHELIAL FEW NORMAL: NONE SEEN [facility] Mucus [Presence] in Urine sediment by Light microscopy Trace NORMAL: NONE SEEN [facility] ID Date Data Source [id number] 04/25/2019 10:48:52 PM [facility] Name Value Range Interpretation Code Description Data Corrie rce(s) Supporting Document(s) Progress Note [facility] [id number] lbm [file] [id number] ID Date Data Source [id number] 04/25/2019 10:48:47 PM [facility] Name Value Range Interpretation Code Description Data Corrie rce(s) Supporting Document(s) Progress Note [facility] [id number] lbm [file] [id number]== ID Date Data Source [id number] 04/22/2019 02:18:59 PM [facility] Name Value Range Interpretation Code Description Data Corrie rce(s) Supporting Document(s) Leukocytes [#/volume] in Blood by Automated count 6.9 10*3/uL 4-10 [facility] Erythrocytes [#/volume] in Blood by Automated count 4.88 10*6/uL 4.1- 5.3 [facility] Hemoglobin [Mass/volume] in Blood 14.1 g/dL 11.5-15.5 [facility] Hematocrit [Volume Fraction] of Blood by Automated count 42.9 % 3 6-45 [facility] Erythrocyte mean corpuscular volume [Entitic volume] by Auto mated count 88.0 fL 80-96 [facility] Erythrocyte mean corpuscular hemoglobin [Entitic mass] by Automated count 29.0 pg 27-33 [facility] Erythrocyte mean corpuscular hemoglobin concentration [Mass/volume] by Automated count 33.0 g/dL 32.0-36.0 [facility] distribution width [Ratio] by Automated count 13.1 % 11.5-14.5 [facility] Platelets [#/volume] in Blood by Automated count 234 10*3/uL 150-400 [facility] Differential cell count method - Blood [facility] Neutrophils/100 leukocytes in Blood by Automated count 71 % [facility] Lymphocytes/100 leukocytes in Blood by Automated count 22 % [facility] Monocytes/100 leukocytes in Blood by Automated count 5 % [facility] Eosinophils/100 leukocytes in Blood by Automated count 1 % [facility] Basophils/100 leukocytes in Blood by Automated count 1 % [facility] Neutrophils [#/volume] in Blood by Automated count 4.90 10*3/uL 1.8-7 .0 [facility] Lymphocytes [#/volume] in Blood by Automated count 1.54 10*3/uL 1.2-4 .0 [facility] Monocytes [#/volume] in Blood by Automated count 0.34 10*3/uL 0-0.8 [facility] Eosinophils [#/volume] in Blood by Automated count 0.06 10*3/uL 0-0.5 [facility] Basophils [#/volume] in Blood by Automated count 0.05 10*3/uL 0-0.2 [facility] Nucleated erythrocytes/100 leukocytes [Ratio] in Blood by Automated count 0 /100{WBCs} 0-0 [facility] ID Date Data Source [id number] 04/22/2019 03:10:46 PM [facility] Name Value Range Interpretation Code Description Data Corrie rce(s) Supporting Document(s) Lactate dehydrogenase [Enzymatic activit y/volume] in Serum or Plasma by Lactate to pyruvate reaction 172 U/L 122-214 [facility] ID Date Data Source [id number] 04/22/2019 03:10:46 PM [facility] Name Value Range Interpretation Code Description Data Corrie rce(s) Supporting Document(s) Albumin [Mass/volume] in Serum or Plasma by Bromocresol green (BCG) dye binding method 4.6 g/dL 3.5-5.2 [facility] Bilirubin.total [Mass/volume] in Serum or Plasma 0.3 mg/dL <1.2 [facility] Calcium [Mass/volume] in Serum or Plasma 9.2 mg/dL 8.6-10.0 [facility] Chloride [Moles/volume] in Serum or Plasma 102 mmol/L 98-107 [facility] Creatinine [Mass/volume] in Serum or Plasma 0.86 mg/dL 0.50-0.90 [facility] Glucose [Mass/volume] in Serum or Plasma 98 mg/dL 70-140 [facility] Alkaline phosphatase [Enzymatic activity/volume] in Serum or Plasma 59 U/L 35-104 [facility] Potassium [Moles/volume] in Serum or Plasma 4.1 mmol/L 3.4-5.1 [facility] Protein [Mass/volume] in Serum or Plasma 7.5 g/dL 6.4-8.3 [facility] Sodium [Moles/volume] in Serum or Plasma 139 mmol/L 136-145 [facility] Aspartate aminotransferase [Enzymatic activity/volume] in Serum or Plasma 15 U/L <32 [facility] Urea nitrogen [Mass/volume] in Serum or Plasma 17 mg/dL 6-20 [facility] Osmolality of Serum or Plasma by calculation 289 mosm/kg 275-300 [facility] Creatinine/Urea nitrogen [Mass Ratio] in Serum or Plasma 19 [facility] Bicarbonate [Moles/volume] in Serum 22 mmol/L 22-29 [facility] Alanine aminotransferase [Enzymatic activity/volume] in Seru m or Plasma 11 U/L <33 [facility] Anion gap 3 in Serum or Plasma 14 mmol/L 8-15 [facility] Albumin/Globulin [Mass Ratio] in Serum or Plasma 1.6 [facility] Glomerular filtration rate/1.73 sq M pre dicted among non-blacks [Volume Rate/Area] in Serum or Plasma by Creatinine-based formula (MDRD) >6 0 [facility] Glomerular filtration rate/1.73 sq M pre dicted among blacks [Volume Rate/Area] in Serum or Plasma by Creatinine-based formula (MDRD) >60 [facility] ID Date Data Source [id number] 03/13/2019 11:26:00 AM EST [facility] (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) Name Value Range Interpretation Code Description Data Corrie rce(s) Supporting Document(s) Appearance, Urine CLOUDY Above high normal MEDE NT (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) Color, Urine YELLOW [facility] ([facility]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) PH,Urine 5.0 units 5.0-9.0 [facility] ([facility]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) Protein, Urine Auto NEGATIVE mg/dL [facility] T (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) Specific [place] Urine Auto 1.021 1.002-1.035 [facility] (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) Glucose, Urine (Ua) Auto NEGATIVE mg/dL [facility] (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) Urobilinogen, Urine Auto 0.2 mg/dL 0.0-2.0 [facility] T (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) Ketone, Urine Auto NEGATIVE mg/dL [facility] (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) Bilirubin, Urine Auto NEGATIVE [facility] ( [place] 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) Nitrite, Urine Auto NEGATIVE [facility] ([facility]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) Leukocyte Esterase, Urine Auto 3+ Above high stormy l [facility] (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) RBC, Urine Auto 6 /HPF 0-3 Above high normal [facility] (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) Blood, Urine Blood NEGATIVE [facility] ([facility] 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) WBC, Urine Auto 11 /HPF 0-3 Above high normal [facility] (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) Squamous Epithelial Cell Ur AU 16 /HPF 0-6 [facility] ([place] 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) Hyaline Cast, Urine Auto 0 /LPF 0-1 [facility] T (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) Bacteria, Urine Auto 2+ Above high normal M [facility] (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) ID Date Data Source [id number] 03/13/2019 11:26:00 AM EST [facility] (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 Procedure Social History Code Duration Value Status Description Data Source(s ) Smoking 04/01/2020 12:00:00 AM EST Patient has never smoked co mpleted Patient has never smoked [facility] (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) Alcohol intake 03/18/2020 12:00:00 AM EST Ex-drinker (finding) comp leted Ex- drinker (finding) [facility] Tobacco use and exposure 03/18/2020 12:00:00 AM EST Never used co mpleted Never used [facility] Smoking 03/18/2020 12:00:00 AM EST Never smoker completed Never s [facility] Smoking 02/25/2020 12:00:00 AM EST Never Smoker completed Never S moker [facility] Smoking 01/29/2020 06:23:00 PM EDT Denies Ever Smoked complete d Denies Ever Smoked [facility] Alcohol intake 01/25/2020 12:00:00 AM EDT Current non-d kumar of alcohol (finding) completed Current non-drinker of alcohol (finding) [facility] Smoking 01/20/2020 12:00:00 AM EDT Never Smoker completed Never S moker [facility] ([facility]) Smoking 01/20/2020 12:00:00 AM EDT Never Smoker completed Never S moker [facility]CW[facility] ([facility]) Smoking 01/20/2020 12:00:00 AM EDT Never Smoker completed Never S moker [facility]CW[facility] ([facility]) Smoking 01/11/2020 12:00:00 AM EDT Unknown if ever smoked comp leted Unknown if ever smoked [facility] [facility] Alcohol intake 01/06/2020 12:00:00 AM EDT Current non-d kumar of alcohol (finding) completed Current non-drinker of alcohol (finding) [facility] Alcohol intake 11/05/2019 12:00:00 AM EDT Current non-d kumar of alcohol (finding) completed Current non-drinker of alcohol (finding) [facility] Smoking 11/05/2019 12:00:00 AM EDT Never smoker completed Never s [facility] Smoking 09/11/2019 12:00:00 AM EDT Never Smoked Cigarettes com pleted Never Smoked Cigarettes [facility] ([facility]) Alcohol intake 08/07/2019 12:00:00 AM EDT Current non-d kumar of alcohol (finding) completed Current non-drinker of alcohol (finding) [facility] Smoking 08/07/2019 12:00:00 AM EDT Never smoker completed Never s [facility] Smoking 08/02/2019 12:00:00 AM EDT Never Smoker completed Never S moker e[facility] ([facility] Smoking 08/02/2019 12:00:00 AM EDT Never Smoker completed Never S moker eCW1 ([facility]) Alcohol intake 04/25/2019 12:00:00 AM EST Current non-d kumar of alcohol (finding) completed Current non-drinker of alcohol (finding) [facility] Smoking 04/25/2019 12:00:00 AM EST Never smoker completed Never s [facility] Vital Signs ID Date Data Source UNK Name Value Range Interpretation Code Description Data Source(s) Body surface area Derived from formula 1.75 m2 1.75 m2 [facility] ([facility]) Body weight 69.854 kg 69.854 kg [facility] ([facility]) [place] body weight 120 [lb_av] 120 [lb_av] [facility] ([facility]) Body mass index (BMI) [Ratio] 26.4 kg/m2 26.4 k g/m2 [facility] ([facility]) Body weight 154.00 [lb_av] 154.00 [lb_av] [facility] ([facility]) Body height 64 [in_i] 64 [in_i] [facility] ([facility]) 5'4" Oxygen saturation in Arterial blood by Pulse oximetry 99 % 99 % [facility] ([facility]) Heart rate 103 /min 103 /min [facility] ([facility]) Diastolic blood pressure 80 mm[Hg] 80 mm[Hg] [facility] ([facility]) Systolic blood pressure 120 mm[Hg] 120 mm[Hg] [facility] ([facility]) Diastolic blood pressure 66 mm[Hg] 66 mm[Hg] eCW1 ([facility]) Systolic blood pressure 100 mm[Hg] 100 mm[Hg] e CW1 ([facility]) Body temperature 97.4 [degF] 97.4 [degF] eCW1 ( [facility]) Respiratory rate 18 /min 18 /min eCW1 ([facility]) Heart rate 111 /min 111 /min eCW1 ([facility]) Body mass index (BMI) [Ratio] 26.12 kg/m2 26.12 kg/m2 W1 ([facility]) Body height 65 [in_i] 65 [in_i] eCW1 ([facility]ly [facility]) Body weight 157 [lb_av] 157 [lb_av] eCW1 ([facility]) Diastolic blood pressure 66 mm[Hg] 66 mm[Hg] [facility] (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) Systolic blood pressure 104 mm[Hg] 104 mm[Hg] M [facility] (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) Body surface area Derived from formula 1.76 m2 1.76 m2 [facility] ([facility]) Body weight 70.535 kg 70.535 kg [facility] ([facility]) [place] body weight 120 [lb_av] 120 [lb_av] [facility] ([facility]) Body mass index (BMI) [Ratio] 26.7 kg/m2 26.7 k g/m2 [facility] ([facility]) Body weight 155.50 [lb_av] 155.50 [lb_av] [facility] ([facility]) Body height 64 [in_i] 64 [in_i] [facility] ([facility]) 5'4" Oxygen saturation in Arterial blood by Pulse oximetry 98 % 98 % [facility] ([facility]) Heart rate 89 /min 89 /min [facility] ([facility]) Diastolic blood pressure 78 mm[Hg] 78 mm[Hg] [facility] ([facility]) Systolic blood pressure 116 mm[Hg] 116 mm[Hg] M [facility] ([facility]) Diastolic blood pressure 56 mm[Hg] 56 mm[Hg] [facility] (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) Systolic blood pressure 116 mm[Hg] 116 mm[Hg] 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) Diastolic blood pressure 62 mm[Hg] 62 mm[Hg] eCW1 ([facility]) Systolic blood pressure 100 mm[Hg] 100 mm[Hg] e CW1 ([facility]) Body temperature 97.9 [degF] 97.9 [degF] eCW1 ( [facility]) Respiratory rate 18 /min 18 /min eCW1 ([facility]) Heart rate 106 /min 106 /min eCW1 ([facility]) Body mass index (BMI) [Ratio] 25.06 kg/m2 25.06 kg/m2 W1 ([facility]) Body height 65 [in_i] 65 [in_i] eCW1 ([facility]) Body weight 150.6 [lb_av] 150.6 [lb_av] eCW1 ([facility]) Diastolic blood pressure 60 mm[Hg] 60 mm[Hg] [facility] (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) Systolic blood pressure 106 mm[Hg] 106 mm[Hg] M [facility] (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) Body temperature 36.8 shruthi Normal (applies to non-numeric results) 36.8 shruthi [facility] Respiratory rate 16 min Normal (applies to non-numeric results) 16 min [facility] Deprecated Oxygen saturation in Capillary blood by Oximetry 100 % Normal (applies to non-numeric results) 100 % [facility] Heart rate 99 min Normal (applies to non-numeric resul ts) 99 min [facility] Diastolic blood pressure 91 mm[Hg] Normal (applies to non-numeric results) 91 mm[Hg] [facility] Systolic blood pressure 140 mm[Hg] Normal (applies t o non-numeric results) 140 mm[Hg] [facility] Body mass index (BMI) [Ratio] 24.3 kg/m2 No rmal (applies to non-numeric results) 24.3 kg/m2 [facility] Body weight Measured 142 [lb_av] Normal (applies to n on-numeric results) 142 [lb_av] [facility] Body height 162.1536 cm Normal (applies to non-numeric res ults) 162.1536 cm [facility] Diastolic blood pressure 58 mm[Hg] 58 mm[Hg] eCW1 ([facility]) Systolic blood pressure 96 mm[Hg] 96 mm[Hg] e CW1 ([facility]) Body temperature 96.8 [degF] 96.8 [degF] eCW1 ( [facility]) Respiratory rate 18 /min 18 /min eCW1 ([facility]) Heart rate 104 /min 104 /min eCW1 ([facility]) Body mass index (BMI) [Ratio] 25.62 kg/m2 25.62 kg/m2 W1 ([facility]) Body height 65 [in_i] 65 [in_i] eCW1 ([facility]) Body weight 154 [lb_av] 154 [lb_av] eCW1 ([facility]) Oxygen saturation in Arterial blood by Pulse oximetry 98 % 98 % [facility] ([facility]) Body mass index (BMI) [Ratio] 28.2 kg/m2 28.2 k g/m2 [facility] ([facility]) Body weight 172.38 [lb_av] 172.38 [lb_av] [facility] T ([facility]) Body height 65.5 [in_i] 65.5 [in_i] [facility] ([facility]) 5'5.50" Heart rate 112 /min 112 /min [facility] ([facility]) Diastolic blood pressure 62 mm[Hg] 62 mm[Hg] [facility] ([facility]) Systolic blood pressure 110 mm[Hg] 110 mm[Hg] M [facility] ([facility]) Oxygen saturation in Arterial blood by Pulse oximetry 96 % 96 % [facility] ([facility]) Body mass index (BMI) [Ratio] 28.4 kg/m2 28.4 k g/m2 [facility] ([facility]) Body weight 173.38 [lb_av] 173.38 [lb_av] [facility] T ([facility]) Body height 65.5 [in_i] 65.5 [in_i] [facility] ([facility]) 5'5.50" Heart rate 103 /min 103 /min [facility] ([facility]) Diastolic blood pressure 68 mm[Hg] 68 mm[Hg] [facility] ([facility]) Systolic blood pressure 110 mm[Hg] 110 mm[Hg] M [facility] ([facility]) Diastolic blood pressure 78 mm[Hg] 78 mm[Hg] eCW1 ([facility]) Systolic blood pressure 122 mm[Hg] 122 mm[Hg] e CW1 ([facility]) Body temperature 99.3 [degF] 99.3 [degF] eCW1 ( [facility]) Heart rate 104 /min 104 /min eCW1 ([facility]) Body mass index (BMI) [Ratio] 29.62 kg/m2 29.62 kg/m2 eCW1 ([facility]) Body height 65 [in_us] 65 [in_us] eCW1 ([facility]) Body weight Measured 178 [lb_av] 178 [lb_av] eC W1 ([facility]) Diastolic blood pressure 68 mm[Hg] 68 mm[Hg] [facility] (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) Systolic blood pressure 108 mm[Hg] 108 mm[Hg] M [facility] (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) Diastolic blood pressure 72 mm[Hg] 72 mm[Hg] [facility] (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) Systolic blood pressure 112 mm[Hg] 112 mm[Hg] M [facility] (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) Diastolic blood pressure 62 mm[Hg] 62 mm[Hg] eCW1 ([facility]) Systolic blood pressure 118 mm[Hg] 118 mm[Hg] e CW1 ([facility]) Body temperature 97 [degF] 97 [degF] eCW1 (formerly [facility]) Respiratory rate 18 /min 18 /min eCW1 ([facility]) Heart rate 110 /min 110 /min eCW1 ([facility]) Body mass index (BMI) [Ratio] 28.95 kg/m2 28.95 kg/m2 eCW1 ([facility]) Body height 65 [in_us] 65 [in_us] eCW1 ([facility]) Body weight Measured 174 [lb_av] 174 [lb_av] eC W1 ([facility]) Diastolic blood pressure 64 mm[Hg] 64 mm[Hg] [facility] (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) Systolic blood pressure 116 mm[Hg] 116 mm[Hg] M [facility] (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) Diastolic blood pressure 70 mm[Hg] 70 mm[Hg] eCW1 ([facility]) Systolic blood pressure 120 mm[Hg] 120 mm[Hg] e CW1 ([facility]) Body temperature 97.7 [degF] 97.7 [degF] eCW1 ( [facility]) Respiratory rate 18 /min 18 /min eCW1 ([facility]) Heart rate 101 /min 101 /min eCW1 ([facility]) Body mass index (BMI) [Ratio] 27.95 kg/m2 27.95 kg/m2 eCW1 ([facility]) Body height 65 [in_us] 65 [in_us] eCW1 ([facility]) Body weight Measured 168 [lb_av] 168 [lb_av] eC W1 ([facility]) Diastolic blood pressure 70 mm[Hg] 70 mm[Hg] [facility] (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) Systolic blood pressure 100 mm[Hg] 100 mm[Hg] M [facility] (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) ID Date Data Source [id number] 03/30/2020 01:33:45 AM [facility] Name Value Range Interpretation Code Description Data Source(s) Body height Measured 64.5 in 64.5 in [facility] ID Date Data Source [id number] [facility]/29[facility]2020 [facility]08[facility] Name Value Range Interpretation Code Description Data Source(s) TRANSFER FROM [facility] ID Date Data Source [id number] 01/28/2020 07:27:58 [facility] Name Value Range Interpretation Code Description Data Source(s) WEIGHT RECORDED 140 lb 140 lb [facility] Body height Measured 67.99 in 67.99 in [facility] ID Date Data Source [id number] 01/16/2020 01:09:59 AM [facility] Value Range Interpretation Code Description Data Source(s) Body height Measured 67.99 in 67.99 in [facility] WEIGHT RECORDED 180.56 lb 180.56 lb [facility] ID Date Data Source [id number] 01/18/2020 08:29:15 AM [facility] Name Value Range Interpretation Code Description Data Source(s) WEIGHT RECORDED 159.2 lb 159.2 lb [facility] ID Date Data Source [id number] 11/06/2019 12:13:11 AM [facility] Name Value Range Interpretation Code Description Data Source(s) WEIGHT RECORDED 160 lb 160 lb [facility] Body height Measured 64.5 in 64.5 in [facility] ID Date Data Source [id number] 08/08/2019 07:00:00 [facility] Name Value Range Interpretation Code Description Data Source(s) WEIGHT RECORDED 170 lb 170 lb [facility] ID Date Data Source [id number] 04/25/2019 10:48:52 PM [facility] Name Value Range Interpretation Code Description Data Source(s) WEIGHT RECORDED 170.6 lb 170.6 lb [facility] Patient Treatment Plan of Care Planned Activity Planned Date Details Description Data Source (s) lamotrigine 200 MG Oral Tablet 03/18/2020 12:00:00 AM [facility] Levetiracetam 750 MG Oral Tablet 03/18/2020 12:00:00 AM [facility] POLYETHYLENE GLYCOL 3350 142 MG/ML Oral Solution 02/21/2020 12:00:0 0 AM [facility] Acetaminophen 325 MG / Oxycodone Hydrochloride 5 MG Or al Tablet 02/20/2020 12:00:[address] [facility] NITROFURANTOIN, MACROCRYSTALS 25 MG / Ni trofurantoin, Monohydrate 75 MG Oral Capsule 02/20/2020 12:00:00 AM [facility] Acetaminophen 325 MG / Hydrocodone Bitartrate 5 MG Ora l Tablet 02/14/2020 12:00:00 AM [facility] Magnesium Hydroxide 80 MG/ML Oral Suspension 01/13/2020 10:00:00 PM [facility] Bisacodyl 10 MG Rectal Suppository 01/13/2020 07:45:55 AM [facility] sennoside, HALF-WAY 8.6 MG Oral Tablet 01/13/2020 07:45:[address] [facility], HALF-WAY 35.2 MG/ML Oral Solution 01/13/2020 07:45:55 AM [facility] ondansetron (ZOFRAN) 4 MG/2ML injection 01/11/2020 08:06:55 PM [facility] Levothyroxine Sodium 0.2 MG Oral Tablet [Synthroid] 10/07/19 12:00:00 AM [facility] Levetiracetam 750 MG Oral Tablet 08/07/2019 12:00:00 AM [facility] lamotrigine 200 MG Oral Tablet 08/07/2019 12:00:00 AM [facility] Levothyroxine Sodium 0.175 MG Oral Tablet 05/30/2019 12:00:00 AM [facility] eCW[facility] ([facility] Levothyroxine Sodium 0.15 MG Oral Tablet 03/26/2019 12:00:00 AM EST eCW1 ([facility]) Levetiracetam 750 MG Oral Tablet 10/08/2018 12:00:00 AM T [facility] lamotrigine 200 MG Oral Tablet 10/08/2018 12:00:00 AM [facility] gabapentin 100 MG Oral Capsule [facility] Amitriptyline Hydrochloride 25 MG Oral Tablet [facility] Levetiracetam 750 MG Oral Tablet [facility] lamotrigine 200 MG Oral Tablet [facility] Levothyroxine Sodium 0.112 MG Oral Tablet [facility]
[2020-04-30] MEDS ORDERED: MAALOX 30 ML SUSP *UDC PO PRN (04:30)
[2020-04-30] MEDS ORDERED: ALBUTEROL 90 MCG/ACT 8GM HFA INHALER INH PRN (04:30)
[2020-04-30] MEDS ORDERED: ALBUTEROL SULFATE 2.5 MG/0.5 ML INH NEB SOLN INH PRN (04:30)
[2020-04-30] MEDS ORDERED: MIRALAX *UNIT DOSE* 17GM PACKET PO PRN (04:30)
[2020-04-30] MEDS ORDERED: MOM 30ML SUSPENSION UDC PO PRN (04:30)
--- NOTE | 2020-04-30 04:39 | HPEPDOC ---
General Date of Admission Apr 30, 2020 at 03:37 Date of Service: Apr 30, 2020 Attending Physician: BRAXTON ABDALLA MD Chief Complaint The patient is a 30-year-old female admitted with a reason for visit of Pancreatitis. History of Present Illness History of present illness: 30-year-old female patient with epilepsy, Hodgkin's disease status post chemotherapy/bone marrow transplant, hypothyroidism, asthma presented to the ED with complaints of mid chest pain since 2 days and vomiting since yesterday. She reports having mid chest pain which worsens with deep breath and radiates to abdomen and back, nothing relieves it and she rates the pain as 9/10 . 5 episodes of vomiting yesterday, food contained and bile no blood. She denies having any fever, acute viral illnesses, any other complaint. Past medical history: Epilepsy Raynaud's disease Hodgkin's lymphoma s/p chemotherapy/bone marrow transplantation Hypothyroidism Asthma Diverticulosis Past surgical history Pericardial window 2010 Bone marrow transplantation 2014 Partial hysterectomy 2019 Biopsy of neck fusion 2010 Social history: Denies smoking Denies alcohol use Denies illicit/recreational drug use Family History: Father/sister/daughter: Have seizure disorder Paternal aunt has Hodgkin's lymphoma Mother has cervical cancer REVIEW OF SYSTEMS: Constitutional: Denies having fever, chills, night sweats, weight loss, headaches. Eyes: Denies blurry vision or double vision. ENT: Denies any dysphagia, odynophagia, ear discharge. Cardiovascular: Reports having chest pain. Respiratory: Denies shortness of breath and cough. Gastrointestinal (GI): Reports having vomiting Genitourinary: Denies dysuria, hematuria. Musculoskeletal: Denies muscle aches and pains. Skin: Denies any rashes or ulcers. Hematology/Oncology: Denies any easy bleeding or bruising. All other review of systems is negative. PHYSICAL EXAMINATION: General: Patient is awake, alert, oriented times three, laying in bed , mild apparent distress. Eyes: Conjunctiva clear, pupils equal round and reactive to light and accom modation. EOM full, Fundus: not visualized. ENT: Hearing Bilateral normal. No nasal deviation, oropharynx clear with no lesions/erythema. Neck: supple, no masses, trachea midline, no thyroid nodules, masses, tenderness or enlargement. Cardiovascular: S1, S2, normal rhythm, no murmur. Respiratory: Chest is clear to auscultation bilaterally. No rhonchi, wheezes or rubs. Abdomen: Soft, bowel sounds positive, reports having diffuse tenderness on palpation, more severe[9/10] in left lower quadrant and epigastric region. And reports radiating to the back as well. Extremities: No clubbing or cyanosis. No edema, no tenderness. 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 Cranial nerves III-XII grossly intact. Motor: Strength normal, patient moves all extremities. Sensory: grossly normal to touch and pin prick Imaging: CT chest without contrast as patient is allergic to contrast: On 04/29/2020 reported as: No acute findings CT abdomen and pelvis without contrast: 04/29/2020 reported as: No acute finding. Assessment: 30-year-old female with a history of epilepsy, Hodgkin's disease, hypothyroidism, asthma presented to the ED with complaining of chest pain and multiple episodes of vomiting yesterday. She reports her chest pain is radiating to her abdomen and back.. The ED her in her initial labs her lipase is elevated. Plan: Acute pancreatitis: - Unknown cause at this time/ idiopathic - Will order lipid profile to rule out hypertriglyceridemia - CT was done in ED showed no calcified stones in the gallbladder or bile duct, no ductal dilatation. - Patient denies any alcohol use. - Will keep her nothing by mouth except medications -Will start her on Ringer lactate at 1 90 mls/h Chest pain: - Most likely her chest pain is referred pain from her pancreatitis. - Event has history of pericardial window will get an echocardiogram to rule out pericarditis Seizure disorder/epilepsy: - Continue her home medication Hypothyroid: -Patient has an elevated TSH level but her free T4 levels are normal. - Not sure what is causing her elevated TSH level. - Will continue on Synthyroid home dose. Asthma: - Will continue her home inhalers. DVT prophylaxis: - Lovenox Home Medications Scheduled Amitriptyline HCl (Amitriptyline HCl) 25 Mg Tablet, 25 MG PO BID, (Reported) Gabapentin (Gabapentin) 100 Mg Capsule, 100 MG PO BID, (Reported) Lamotrigine (Lamictal) 200 Mg Tab, 200 MG PO BID, (Reported) Levetiracetam (Keppra) 750 Mg Tablet, 750 MG PO BID, (Reported) Levothyroxine Sodium (Levoxyl) 175 Mcg Tablet, 175 MCG PO QHS, (Reported) Melatonin (Melatonin) 10 Mg Tablet, 20 MG PO QHS, (Reported) Scheduled PRN Albuterol Sulf (Albuterol Sulfate) 2.5 Mg/3 Ml Vial.neb, 2.5 MG INH QID PRN for SHORTNESS OF BREATH, (Reported) Albuterol Sulfate (Proair Hfa) 8.5 Gm Hfa.aer.ad, 2 PUFF INH Q4H PRN for SHORTNESS OF BREATH, (Reported) Ibuprofen (Ibuprofen) 200 Mg Tablet, 600 MG PO Q6H PRN for PAIN, (Reported) Polyethylene Glycol 3350 (Miralax) 17 Gm Powd.pack, 17 GM PO DAILY PRN for CONSTIPATION, (Reported) Allergies Coded Allergies: Iodinated Contrast Media (Verified Allergy, Severe, STOPS BREATHING, 02/23/20) latex (Verified Allergy, Severe, " everything reacts" , 02/23/20) fentanyl (Verified Allergy, Intermediate, hives, 02/23/20) A-FIB/CHADSVASC A-FIB History Current/History of A-Fib/PAF?: No Vital Signs Vital Signs Date Time Temp Pulse Resp B/P (MAP) Pulse Ox O2 Delivery O2 Flow Rate FiO2 04/30/20 04:29 97.3 110 18 99 Room Air 04/30/20 04:20 142/87 (105) Laboratory Data Labs 24H Laboratory Tests 2 04/29/20 21:18: Immature Granulocyte % (Auto) 0.3, Neutrophils (%) (Auto) 75.8H, Lymphocytes (%) (Auto) 18.0L, Monocytes (%) (Auto) 5.3H, Eosinophils (%) (Auto) 0.3, Basophils (%) (Auto) 0.3, Neutrophils # (Auto) 8.4, Lymphocytes # (Auto) 2.0, Monocytes # (Auto) 0.6, Eosinophils # (Auto) 0.0, Basophils # (Auto) 0.0, Nucleated Red Blood Cells % (auto) 0.0, D-Dimer, Quantitative 375.60, Anion Gap 9, Glomerular Filtration Rate > 60.0, Calcium Level 9.2, Total Bilirubin 0.2, Direct Bilirubin < 0.1, Aspartate Amino Transf (AST/SGOT) 10, Alanine Aminotransferase (ALT/SGPT) 18, Alkaline Phosphatase 72, Total Creatine Kinase 60, Creatine Kinase MB < 1.0, Creatine Kinase MB Relative Index 1.67, Troponin I < 0.02, Total Protein 7.7, Albumin 4.3, Albumin/Globulin Ratio 1.3, Lipase 1482H, Thyroid Stimulating Hormone (TSH) 25.200H, Free Thyroxine 1.00, Human Chorionic Gonadotropin, Qual NEGATIVE CBC/BMP Laboratory Tests 04/29/20 21:18 Microbiology Microbiology 04/30/20 Respiratory Virus Panel (PCR) ([facility]) - Final, Complete Plan / VTE VTE Prophylaxis Ordered?: Yes Vargas Saenz MD Apr 30, 2020 04:39
[2020-04-30 04:45] LABS: CHOLESTEROL LEVEL 202 MG/DL (<200); CHOLESTEROL RISK RATIO 2.525 (<5); HDL CHOLESTEROL 80 MG/DL (>40); LDL CHOLESTEROL 107 MG/DL (<100); NON-HDL-C 122 MG/DL; TRIGLYCERIDES LEVEL 73 MG/DL (<150)
[2020-04-30] MEDS: LR 1,000 ML IV SCH ×3 (05:12→19:03)
[2020-04-30 06:53] LABS: CHOLESTEROL RISK RATIO 2.527 (<5)
[2020-04-30] MEDS: GABAPENTIN 100 MG CAP PO SCH ×2 (08:06→20:55)
[2020-04-30] MEDS: MORPHINE 4 MG/ML 1ML VIAL/SYRINGE (J2270) IV PRN ×3 (08:06→21:14)
[2020-04-30] MEDS: lamoTRIgine 100MG TAB PO SCH ×2 (08:06→20:55)
[2020-04-30] MEDS: levETIRAcetam 250MG TABLET (KEPPRA) PO SCH ×2 (08:07→20:55)
[2020-04-30] MEDS: AMITRIPTYLINE 25MG TABLET PO SCH ×2 (08:07→20:55)
[2020-04-30] MEDS: ENOXAPARIN 40MG/0.4ML SYRINGE (J1650 PER 10MG) SC SCH (08:08)
[2020-04-30] MEDS: DOCUSATE SODIUM 100MG CAPSULE PO SCH ×2 (08:08→20:55)
--- NOTE | 2020-04-30 08:29 | ECGEPIP ---
[facility] - ED Test Date: 2020-04-29 Pat Name: NERY WAN Department: Room: [place] [address] Gender: Female [employer]: : 1990 Requested By: REEMA Merino Order Number: [id number] Reading MD: Jose Enrique Thompson Measurements Intervals [place] Rate: 111 P: 63 WV: 151 QRS: 83 QRSD: 83 T: 63 QT: 320 QTc: 436 Interpretive Statements SINUS TACHYCARDIA ANTEROSEPTAL MYOCARDIAL INFARCTION, OF INDETERMINATE AGE NSTTW ABNORMALITY(S) SIMILAR TO 02/23/20 Electronically Signed on 04-30-2020 8:28:20 EST by Jose Enrique Thompson
[2020-04-30 10:00] VITALS: BP 138/76
--- NOTE | 2020-04-30 11:51 | REP ---
INDICATION: chest pain, elev lipase. COMPARISON: None. TECHNIQUE: CT chest performed without the use of intravenous contrast. Sagittal and coronal reconstruction images are performed. FINDINGS: Lungs: There is fibrotic scarring in the upper lobes bilaterally. There is no acute infiltrate or pulmonary edema. There is no pneumothorax. Mediastinum: No gross adenopathy. Shila: No gross adenopathy. Axilla: No gross adenopathy. Pleura: No effusion. Heart: Not enlarged. Thoracic aorta: No aneurysm. Visualized osseous structures: Unremarkable. IMPRESSION: Unremarkable noncontrast CT chest. A preliminary report was provided by [facility] at the time of the exam. <Electronically signed by Bartolo Dorado > 04/30/20 [id number]
--- NOTE | 2020-04-30 11:55 | REP ---
INDICATION: chest pain, elev lipase COMPARISON: 02/20/2020. TECHNIQUE: CT Scan of the abdomen and pelvis was performed without intravenous contrast. Sagittal and coronal reconstruction images performed. FINDINGS: Liver: Grossly unremarkable. Gallbladder: Unremarkable. Spleen: Grossly unremarkable.. Adrenals: Normal. Pancreas: Grossly unremarkable.. Kidneys: No hydronephrosis or nephrolithiasis. Ureters demonstrate no dilatation or calculus. Small and large bowel: Grossly unremarkable.. Free fluid: None. Abdominal aorta: No aneurysm. Adenopathy: None. Appendix: Not inflamed. Osseous structures: Unremarkable. Pelvis: No mass. No bladder calculus seen. There has been a prior hysterectomy. IMPRESSION: Negative non-contrast CT abdomen and pelvis. A preliminary report was provided by [facility] at the time of the exam. <Electronically signed by Bartolo Dorado > 04/30/20 [id number]
--- NOTE | 2020-04-30 11:56 | REP ---
INDICATION: CHEST PAIN. COMPARISON: 04/28/2020. TECHNIQUE: SINGLE PORTABLE AP VIEW OF THE CHEST WAS PERFORMED. FINDINGS: THERE IS NO ACUTE INFILTRATE OR PULMONARY EDEMA. LUNGS ARE CLEAR. HEART IS NOT SIGNIFICANTLY ENLARGED. MEDIASTINAL SILHOUETTE IS UNREMARKABLE. THE VISUALIZED OSSEOUS STRUCTURES ARE INTACT. IMPRESSION: NO ACUTE PULMONARY DISEASE. <Electronically signed by Bartolo Dorado > 04/30/20 [id number]
[2020-04-30 14:00] VITALS: BP 137/81
[2020-04-30 18:00] VITALS: BP 133/81
--- NOTE | 2020-04-30 18:54 | IPNPDOC ---
Text Note Date of Service The patient was seen on 04/30/20. NOTE Subjective: Patient is to complain of substernal chest pain increased with pa lpation and pressure Objective: GENERAL APPEARANCE: Morbidly Is female HEENT: no scleral icterus, no JVD, EOMI CARDIOVASCULAR: S1S2 LUNGS: CTA ABDOMEN: soft & not tender w palpitation MUSCULOSKELETAL: no cyanosis, no swelling, midsternal area tender on palpation INTEGUMENT: no generalized palor NEUROLOGICAL: cranial nerve function from 2-12 intact intact, follows commands, speech not dysarthric Assessment: 30-year-old female with a history of epilepsy, Hodgkin's disease, hypothyroidism, asthma presented to the ED with complaining of chest pain and multiple episodes of vomiting yesterday. She reports her chest pain is radiating to her abdomen and back.. The ED her in her initial labs her lipase is elevated. Plan: Questionable Acute pancreatitis: Most likely idiopathic Lipase elevated to [address] scan negative for acute pancreatitis Triglycerides with a normal limit Continue IV fluid Midsternal Chest pain: Patient has a history of pericardial window EKG negative for pericarditis Troponin negative Will proceed with echo Chest CT unremarkable Patient has a history of Hodgkin lymphoma and bone marrow transplant. If patient continues to have midsternal pain I will ask clinical consultant for consult Seizure disorder/epilepsy: - Continue her home medication Hypothyroid: -Patient has an elevated TSH level but her free T4 levels are normal. -Continue Synthroid Asthma: - Will continue her home inhalers. DVT prophylaxis: - Lovenox VS,Fishbone, I+O VS, Fishbone, I+O Laboratory Tests 04/29/20 21:18 Vital Signs Date Time Temp Pulse Resp B/P (MAP) Pulse Ox O2 Delivery O2 Flow Rate FiO2 04/30/20 14:51 18 Room Air 04/30/20 14:00 98.7 70 137/81 (99) 98 I&O- Last 24 Hours up to 6 AM 04/30/20 05:59 Intake Total 1000 ml Balance 1000 ml HU SALGADO DO Apr 30, 2020 18:54
[2020-04-30 20:53] VITALS: BP 143/99
[2020-04-30] MEDS: LEVOTHYROXINE 75MCG TABLET (0.075MG) PO SCH (20:55)
[2020-04-30] MEDS: ONDANSETRON 4MG/2ML VIAL IV PRN (21:13)
[2020-05-01] MEDS: NS 1,000 ML IV SCH ×2 (00:48→10:02)
[2020-05-01 02:00] VITALS: BP 145/98
[2020-05-01] MEDS: MORPHINE 4 MG/ML 1ML VIAL/SYRINGE (J2270) IV PRN ×6 (02:15→22:26)
[2020-05-01] MEDS: ACETAMINOPHEN TAB 650MG DOSE (2X325MG) PO PRN ×2 (04:58→20:52)
[2020-05-01 05:00] VITALS: BP 155/107
[2020-05-01 06:24] LABS: BASO % 0.3 % (0.0-1.0); EOS % 0.6 % (0.0-3.0); HEMATOCRIT 39.1 % (36.0-47.0); HEMOGLOBIN 12.1 g/dl (12.0-15.5); LYMPH # 1.4 10^3/uL (1.5-5.0); LYMPH % 19.8 % (24.0-44.0); MEAN CORPUSCULAR HEMOGLOBIN 27.5 pg (27.0-33.0); MEAN CORPUSCULAR HGB CONC 30.9 g/dl (32.0-36.5); MEAN CORPUSCULAR VOLUME 88.9 fl (80.0-96.0); MONO # 0.4 10^3/uL (0.0-0.8); MONO % 5.4 % (0.0-5.0); NEUTROPHILS # 5.2 10^3/uL (1.5-8.5); NEUTROPHILS % 73.6 % (36.0-66.0); PLATELET COUNT, AUTOMATED 191 10^3/uL (150-450)
[2020-05-01] MEDS: ONDANSETRON 4MG/2ML VIAL IV PRN ×4 (06:50→17:28)
[2020-05-01 06:59] LABS: ALBUMIN 3.9 GM/DL (3.2-5.2); ALT/SGPT 16 U/L (12-78); BILIRUBIN,TOTAL 0.3 MG/DL (0.2-1.0); BLOOD UREA NITROGEN 4 MG/DL (7-18); CALCIUM LEVEL 8.4 MG/DL (8.5-10.1); CARBON DIOXIDE LEVEL 25 MEQ/L (21-32); CHLORIDE LEVEL 105 MEQ/L (98-107); GLOMERULAR FILTRATION RATE > 60.0 (>60); GLUCOSE, FASTING 90 MG/DL (70-100); POTASSIUM SERUM 3.8 MEQ/L (3.5-5.1); SODIUM LEVEL 138 MEQ/L (136-145); TOTAL PROTEIN 7.1 GM/DL (6.4-8.2)
[2020-05-01] MEDS: AMITRIPTYLINE 25MG TABLET PO SCH ×2 (09:59→20:52)
[2020-05-01] MEDS: GABAPENTIN 100 MG CAP PO SCH (10:00)
[2020-05-01] MEDS: lamoTRIgine 100MG TAB PO SCH ×2 (10:00→20:51)
[2020-05-01] MEDS: DOCUSATE SODIUM 100MG CAPSULE PO SCH ×2 (10:00→20:52)
[2020-05-01] MEDS: levETIRAcetam 250MG TABLET (KEPPRA) PO SCH ×2 (10:01→20:52)
[2020-05-01] MEDS: ENOXAPARIN 40MG/0.4ML SYRINGE (J1650 PER 10MG) SC SCH (10:01)
--- NOTE | 2020-05-01 11:55 | ECHO ---
DATE OF PROCEDURE: 04/30/2020 Age: 30 Gender: Female Height: 64 inches Weight: 154 pounds Body surface area: 1.75 m2 PATIENT LOCATION: Inpatient [address] [place] [address], Room 5147. REFERRING PHYSICIAN: Vargas Saenz MD INDICATION: Chest pain. MEASUREMENTS: 2D Measurements: RV 3.2 cm LV 3.8 cm Septum 1.0 cm Posterior wall 1.0 cm Aortic Root 2.8 cm LA 3.0 cm LVEF 65% Doppler Measurements: AV 1.19 m/s LVOT 0.8 m/s LVOT diameter 1.8 cm MV-E 85, A 70, E/A ratio 1.2 Early mitral deceleration time 203 msec E prime medial 10.6, A prime medial 12, E prime lateral 14 PV 1.1 m/s Pulmonary artery acceleration time 106 msec PASP 34 mmHg IVC 1.7 cm COMMENTS: Normal sinus rhythm without intraventricular conduction disturbance. M-mode and two-dimensional echocardiography was performed with pulse, continuous wave, color flow, and tissue Doppler studies. Normal left ventricular size, wall thickness, and wall motion. Normal left atrial size and Doppler assessment of LV diastolic function and estimated mean left atrial pressure. Normal right heart chamber sizes and motion with single Doppler sign of borderline pulmonary hypertension. Normal IVC size and collapse against an elevated central venous pressure. Normal aortic dimensions. Normal appearing aortic valve with normal cusp separate, but perhaps trace aortic insufficiency. Normal appearing mitral valve apparatus and leaflet excursion with no posterior systolic buckling, but very mild posteriorly directed mitral insufficiency (physiological finding). Normal appearing tricuspid valve with very mild insufficiency (physiologic). No apparent intracardiac mass or pericardial effusion. MTDD
[2020-05-01] MEDS ORDERED: METOPROLOL TART 25 MG TABLET PO ONE (13:00)
[2020-05-01 13:30] LABS: LIPASE 146 U/L (73-393)
[2020-05-01 14:00] VITALS: BP 139/91
[2020-05-01] MEDS: METOCLOPRAMIDE 5 MG TAB PO PRN (17:29)
--- NOTE | 2020-05-01 19:31 | IPNPDOC ---
Text Note Date of Service The patient was seen on 05/01/20. NOTE Subjective: Patient complains of low abdominal pain bilaterally. She stated that her pain is severe 8 out of 10 Objective: GENERAL APPEARANCE: Morbidly Is female HEENT: no scleral icterus, no JVD, EOMI CARDIOVASCULAR: S1S2 LUNGS: CTA ABDOMEN: soft & bowel sounds present MUSCULOSKELETAL: no cyanosis, no swelling, midsternal area tender on palpation INTEGUMENT: no generalized palor NEUROLOGICAL: cranial nerve function from 2-12 intact intact, follows commands, speech not dysarthric Assessment: 30-year-old female with a history of epilepsy, Hodgkin's disease, hypothyroidism, asthma presented to the ED with complaining of chest pain and multiple episodes of vomiting yesterday. She reports her chest pain is radiating to her abdomen and back.. The ED her in her initial labs her lipase is elevated. Plan: Questionable Acute pancreatitis: Most likely idiopathic Lipase elevated to 1200, normalized today However CT scan negative for acute pancreatitis Triglycerides within a normal limit Continue gentle IV fluid Midsternal Chest pain: Improved today Patient has a history of pericardial window EKG negative for pericarditis Troponin negative echo unremarkable Chest CT unremarkable Patient has a history of Hodgkin lymphoma and bone marrow transplant. 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 -Continue Synthroid Asthma: - Will continue her home inhalers. Low abdominal pain Unknown etiology Abdomen soft, mildly tender procalcitonin negative DVT prophylaxis: - Lovenox VS,Fishbone, I+O VS, Fishbone, I+O Laboratory Tests 05/01/20 06:17 Vital Signs Date Time Temp Pulse Resp B/P (MAP) Pulse Ox O2 Delivery O2 Flow Rate FiO2 05/01/20 17:29 18 Room Air 05/01/20 14:00 98.0 110 139/91 (107) 98 I&O- Last 24 Hours up to 6 AM 05/01/20 05:59 Intake Total 120 ml Output Total 2450 ml Balance -2330 ml HU SALGADO DO May 01, 2020 19:31
[2020-05-01] MEDS ORDERED: OMEPRAZOLE 20 MG CAP PO ONE (20:00)
[2020-05-01 20:24] LABS: APPEARANCE, URINE CLEAR (CLEAR); BACTERIA, URINE AUTO NEGATIVE (NEGATIVE); BILIRUBIN, URINE AUTO NEGATIVE (NEGATIVE); BLOOD, URINE BLOOD NEGATIVE (NEGATIVE); COLOR, URINE STRAW (YELLOW); GLUCOSE, URINE (UA) AUTO NEGATIVE (NEGATIVE); KETONE, URINE AUTO 1+ mg/dL (NEGATIVE); LEUKOCYTE ESTERASE, URINE AUTO NEGATIVE (NEGATIVE); MUCUS, URINE SMALL (NEGATIVE); NITRITE, URINE AUTO NEGATIVE (NEGATIVE); PROTEIN, URINE AUTO NEGATIVE (NEGATIVE); RBC, URINE AUTO 0 /HPF (0-3); SPECIFIC GRAVITY URINE AUTO 1.008 (1.002-1.035); SQUAMOUS EPITHELIAL CELL UR AU 2 /HPF (0-6); UROBILINOGEN, URINE AUTO 0.2 mg/dL (0.0-2.0); WBC, URINE AUTO 1 /HPF (0-3)
[2020-05-01] MEDS: LEVOTHYROXINE 75MCG TABLET (0.075MG) PO SCH (20:50)
[2020-05-01] MEDS: LEVOTHYROXINE 100MCG TABLET (0.1MG) PO SCH (20:51)
[2020-05-01] MEDS: METOPROLOL TART 25 MG TABLET PO SCH (20:51)
[2020-05-01] MEDS ORDERED: METOPROLOL TART 25 MG TABLET PO SCH (21:00)
[2020-05-01 22:00] VITALS: BP 136/88
[2020-05-02] MEDS: MORPHINE 4 MG/ML 1ML VIAL/SYRINGE (J2270) IV PRN (03:10)
[2020-05-02 06:00] VITALS: BP 110/78
[2020-05-02] MEDS: ACETAMINOPHEN TAB 650MG DOSE (2X325MG) PO PRN (06:33)
[2020-05-02 06:52] LABS: HEMATOCRIT 40.4 % (36.0-47.0); HEMOGLOBIN 12.7 g/dl (12.0-15.5); MEAN CORPUSCULAR HGB CONC 31.4 g/dl (32.0-36.5); PLATELET COUNT, AUTOMATED 203 10^3/uL (150-450); RED BLOOD COUNT 4.54 10^6/uL (4.00-5.40); WHITE BLOOD COUNT 5.5 10^3/uL (4.0-10.0)
[2020-05-02 07:19] LABS: BLOOD UREA NITROGEN 13 MG/DL (7-18); CALCIUM LEVEL 8.4 MG/DL (8.5-10.1); CARBON DIOXIDE LEVEL 23 MEQ/L (21-32); CHLORIDE LEVEL 105 MEQ/L (98-107); CREATININE FOR GFR 0.86 MG/DL (0.55-1.30); GLOMERULAR FILTRATION RATE > 60.0 (>60); GLUCOSE, FASTING 57 MG/DL (70-100); POTASSIUM SERUM 3.9 MEQ/L (3.5-5.1); SODIUM LEVEL 138 MEQ/L (136-145)
[2020-05-02 08:44] LABS: ATYPICAL LYMPH 9 % (0-5); EOSINOPHILS 1 % (0-3); LYMPHOCYTES 18 % (16-44); MONOCYTES 3 % (0-5); NEUTROPHILS 69 % (28-66)
[2020-05-02 08:45] LABS: PLATELET ESTIMATE NORMAL (NORMAL)
[2020-05-02] MEDS ORDERED: OMEPRAZOLE 20 MG CAP PO SCH (09:00)
[2020-05-02] MEDS: AMITRIPTYLINE 25MG TABLET PO SCH ×2 (09:05→21:26)
[2020-05-02] MEDS: DOCUSATE SODIUM 100MG CAPSULE PO SCH ×2 (09:06→21:26)
[2020-05-02] MEDS: lamoTRIgine 100MG TAB PO SCH ×2 (09:06→21:27)
[2020-05-02] MEDS: levETIRAcetam 250MG TABLET (KEPPRA) PO SCH ×2 (09:06→21:27)
[2020-05-02] MEDS: METOPROLOL TART 25 MG TABLET PO SCH ×3 (09:06→21:27)
[2020-05-02] MEDS: ENOXAPARIN 40MG/0.4ML SYRINGE (J1650 PER 10MG) SC SCH (09:07)
[2020-05-02] MEDS: METOCLOPRAMIDE 5 MG TAB PO PRN (09:07)
[2020-05-02] MEDS: ONDANSETRON 4MG/2ML VIAL IV PRN (10:20)
[2020-05-02] MEDS ORDERED: METOCLOPRAMIDE 5 MG TAB PO PRN (11:45)
[2020-05-02] MEDS: SUCRALFATE 1 GM TAB PO SCH ×2 (12:18→16:54)
[2020-05-02 14:49] VITALS: BP 107/71
--- NOTE | 2020-05-02 15:14 | IPNPDOC ---
Text Note Date of Service The patient was seen on 05/02/20. NOTE Subjective: Patient continues to complains of low abdominal pain bilaterally. Objective: GENERAL APPEARANCE: Morbidly Is female HEENT: no scleral icterus, no JVD, EOMI CARDIOVASCULAR: S1S2 LUNGS: CTA ABDOMEN: soft & bowel sounds present MUSCULOSKELETAL: no cyanosis, no swelling, midsternal area tender on palpation INTEGUMENT: no generalized palor NEUROLOGICAL: cranial nerve function from 2-12 intact intact, follows commands, speech not dysarthric Assessment: 30-year-old female with a history of epilepsy, Hodgkin's disease, hypothyroidism, asthma presented to the ED with complaining of chest pain and multiple episodes of vomiting yesterday. She reports her chest pain is radiating to her abdomen and back.. The ED her in her initial labs her lipase is elevated. Plan: Questionable Acute pancreatitis: Most likely idiopathic Lipase elevated to 1200, normalized yesterday However CT scan negative for acute pancreatitis Triglycerides within a normal limit DC IV fluid Midsternal Chest pain: Resolved Patient had a history of pericardial window EKG negative for pericarditis Troponin negative echo unremarkable Chest CT unremarkable Patient has a history of Hodgkin lymphoma and bone marrow transplant. If patient continues to have midsternal pain I will ask rn perinatal for consult Seizure disorder/epilepsy: - Continue her home medication Hypothyroid: -Patient has an elevated TSH level but her free T4 levels are normal. -Continue Synthroid Asthma: - Will continue her home inhalers. Low abdominal pain Unknown etiology Abdomen soft, mildly tender procalcitonin negative Chest CT/abdomen/pelvis negative Abdomen soft on palpation Persistent nausea I don't have an good explanation for low abdominal pain and persistent nausea Procalcitonin negative, patient does not have leukocytosis, patient afebrile Imaging study negative Trial of PPI IV Tachycardia Could be attributed to pain Echo normal EKG showed sinus tachycardia Metoprolol 25 3 times a day DVT prophylaxis: - Lovenox VS,Fishbone, I+O VS, Fishbone, I+O Laboratory Tests 05/02/20 06:21 Vital Signs Date Time Temp Pulse Resp B/P (MAP) Pulse Ox O2 Delivery O2 Flow Rate FiO2 05/02/20 09:06 102 131/88 05/02/20 06:00 97.8 18 97 Room Air I&O- Last 24 Hours up to 6 AM 05/02/20 06:00 Intake Total 1760 ml Output Total 2350 ml Balance -590 ml HU SALGADO DO May 02, 2020 15:14
[2020-05-02] MEDS: LEVOTHYROXINE 75MCG TABLET (0.075MG) PO SCH (21:26)
[2020-05-02] MEDS: LEVOTHYROXINE 100MCG TABLET (0.1MG) PO SCH (21:26)
[2020-05-02] MEDS: PANTOPRAZOLE 40MG VIAL (C9113 PER 1) IV SCH (21:27)
[2020-05-02 22:00] VITALS: BP 110/56
[2020-05-03 05:54] VITALS: BP 96/60
[2020-05-03 06:41] LABS: HEMATOCRIT 38.8 % (36.0-47.0); HEMOGLOBIN 12.2 g/dl (12.0-15.5); MEAN CORPUSCULAR HEMOGLOBIN 27.5 pg (27.0-33.0); MEAN CORPUSCULAR HGB CONC 31.4 g/dl (32.0-36.5); MEAN CORPUSCULAR VOLUME 87.4 fl (80.0-96.0); PLATELET COUNT, AUTOMATED 214 10^3/uL (150-450); RED BLOOD COUNT 4.44 10^6/uL (4.00-5.40); WHITE BLOOD COUNT 5.2 10^3/uL (4.0-10.0)
[2020-05-03 07:10] LABS: BLOOD UREA NITROGEN 15 MG/DL (7-18); CALCIUM LEVEL 8.9 MG/DL (8.5-10.1); CARBON DIOXIDE LEVEL 27 MEQ/L (21-32); CHLORIDE LEVEL 104 MEQ/L (98-107); CREATININE FOR GFR 0.95 MG/DL (0.55-1.30); GLOMERULAR FILTRATION RATE > 60.0 (>60); GLUCOSE, FASTING 90 MG/DL (70-100); POTASSIUM SERUM 4.2 MEQ/L (3.5-5.1); SODIUM LEVEL 138 MEQ/L (136-145)
[2020-05-03 08:09] LABS: ATYPICAL LYMPH 2 % (0-5); BASOPHILS 1 % (0-1); LYMPHOCYTES 41 % (16-44); MONOCYTES 2 % (0-5); NEUTROPHILS 52 % (28-66)
[2020-05-03 08:10] LABS: PLATELET ESTIMATE NORMAL (NORMAL)
[2020-05-03 09:00] VITALS: BP 96/60
[2020-05-03] MEDS: ENOXAPARIN 40MG/0.4ML SYRINGE (J1650 PER 10MG) SC SCH (09:00)
[2020-05-03] MEDS: METOPROLOL TART 25 MG TABLET PO SCH (09:00)
[2020-05-03] MEDS ORDERED: METO1TAB87 PO ×2 (09:38→14:31)
[2020-05-03] MEDS ORDERED: METO5TAB2 PO ×2 (09:38→14:31)
[2020-05-03] MEDS ORDERED: OMEP40CA97 PO ×2 (09:38→14:31)
[2020-05-03] MEDS ORDERED: ACET1TAB55 PO ×2 (09:38→14:31)
[2020-05-03] MEDS ORDERED: SUCR1TA PO ×2 (09:38→14:31)
[2020-05-03] MEDS: levETIRAcetam 250MG TABLET (KEPPRA) PO SCH (09:59)
[2020-05-03] MEDS: DOCUSATE SODIUM 100MG CAPSULE PO SCH (09:59)
[2020-05-03] MEDS: lamoTRIgine 100MG TAB PO SCH (10:00)
[2020-05-03] MEDS: AMITRIPTYLINE 25MG TABLET PO SCH (10:01)
[2020-05-03] MEDS: PANTOPRAZOLE 40MG VIAL (C9113 PER 1) IV SCH (10:01)
[2020-05-03] MEDS: SUCRALFATE 1 GM TAB PO SCH (10:04)
--- NOTE | 2020-05-03 12:33 | DS.PDOC ---
Discharge Summary General Date of Admission Apr 30, 2020 at 03:37 Date of Discharge 05/03/20 Discharge Summary PROCEDURES PERFORMED DURING STAY: [None]. ADMITTING DIAGNOSES: Acute pancreatitis Midsternal Chest pain Seizure disorder/epilepsy: Hypothyroid Asthma Low abdominal pain Persistent nausea Tachycardia DISCHARGE DIAGNOSES: Acute pancreatitis Midsternal Chest pain Seizure disorder/epilepsy: Hypothyroid Asthma Low abdominal pain Persistent nausea Tachycardia Gastritis COMPLICATIONS/CHIEF COMPLAINT: Pancreatitis. HISTORY OF PRESENT ILLNESS:30-year-old female with a history of epilepsy, Hodgkin's disease, hypothyroidism, asthma presented to the ED with complaining of chest pain and multiple episodes of vomiting yesterday. She reports her chest pain is radiating to her abdomen and back.. HOSPITAL COURSE: During hospital stay following issues addressed Questionable Acute pancreatitis: Most likely idiopathic Lipase elevated to 1200, normalized yesterday However CT scan negative for acute pancreatitis Triglycerides within a normal limit Midsternal Chest pain: Resolved Patient had a history of pericardial window EKG negative for pericarditis Troponin negative echo unremarkable Chest CT unremarkable Seizure disorder/epilepsy: - Continue her home medication Hypothyroid: -Patient has an elevated TSH level but her free T4 levels are normal. -Continue Synthroid Asthma: - Will continue her home inhalers. Low abdominal pain Unknown etiology Abdomen soft, mildly tender procalcitonin negative Chest CT/abdomen/pelvis negative Abdomen soft on palpation Persistent nausea I don't have an good explanation for low abdominal pain and persistent nausea Procalcitonin negative, patient does not have leukocytosis, patient afebrile Imaging study negative Trial of PPI IV with positive dynamics. Most likely patient developed gastritis secondary to ibuprofen responded to PPI. Tachycardia Could be attributed to pain Echo normal EKG showed sinus tachycardia Metoprolol 25 3 times a day DVT prophylaxis: - Lovenox DISCHARGE MEDICATIONS: Please see below. ALLERGIES: Please see below. PHYSICAL EXAMINATION ON DISCHARGE: VITAL SIGNS: Please see below. GENERAL APPEARANCE: Morbidly Is female HEENT: no scleral icterus, no JVD, EOMI CARDIOVASCULAR: S1S2 LUNGS: CTA ABDOMEN: soft & bowel sounds present MUSCULOSKELETAL: no cyanosis, no swelling, midsternal area tender on palpation INTEGUMENT: no generalized palor NEUROLOGICAL: cranial nerve function from 2-12 intact intact, follows commands, speech not dysarthric LABORATORY DATA: Please see below. IMAGING: See above PROGNOSIS: Fair ACTIVITY: [As tolerated]. DIET: Cardiac DISPOSITION: Home, Self-Care. DISCHARGE INSTRUCTIONS: Stop taking ibuprofen ITEMS TO FOLLOWUP ON ON OUTPATIENT: Follow-up with PCP in 3-5 days DISCHARGE CONDITION: [Stable]. TIME SPENT ON DISCHARGE: Greater than 40 minutes. Vital Signs/I&Os Vital Signs Date Time Temp Pulse Resp B/P (MAP) Pulse Ox O2 Delivery O2 Flow Rate FiO2 05/03/20 09:00 84 96/60 05/03/20 05:54 98.1 18 98 Room Air I&O- Last 24 Hours up to 6 AM 05/03/20 06:00 Intake Total 1360 ml Output Total 800 ml Balance 560 ml Laboratory Data Labs 24H Laboratory Tests 2 05/03/20 06:23: Neutrophils (%) (Auto) , Nucleated Red Blood Cells % (auto) 0.0, Neutrophils 52, Band Neutrophils 2, Lymphocytes (Manual) 41, Monocytes (Manual) 2, Basophils (Manual) 1, Atypical Lymphocytes 2, Platelet Estimate NORMAL, Anion Gap 7L, Glomerular Filtration Rate > 60.0, Calcium Level 8.9 CBC/BMP Laboratory Tests 05/03/20 06:23 Microbiology Microbiology 04/30/20 Respiratory Virus Panel (PCR) ([facility]) - Final, Complete Discharge Medications Scheduled Amitriptyline HCl (Amitriptyline HCl) 25 Mg Tablet, 25 MG PO BID, (Reported) Gabapentin (Gabapentin) 100 Mg Capsule, 100 MG PO BID, (Reported) Lamotrigine (Lamictal) 200 Mg Tab, 200 MG PO BID, (Reported) Levetiracetam (Keppra) 750 Mg Tablet, 750 MG PO BID, (Reported) Levothyroxine Sodium (Levoxyl) 175 Mcg Tablet, 175 MCG PO QHS, (Reported) Melatonin (Melatonin) 10 Mg Tablet, 20 MG PO QHS, (Reported) Metoprolol Tartrate (Metoprolol Tartrate) 25 Mg Tablet, 25 MG PO BID Omeprazole (Omeprazole) 40 Mg Capsule.dr, 40 MG PO BID Sucralfate (Sucralfate) 1 Gm Tablet, 1 GM PO BID@0730,1730 Scheduled PRN Acetaminophen (Acetaminophen) 325 Mg Tablet, 650 MG PO Q4H PRN for PAIN OR FEVER Albuterol Sulf (Albuterol Sulfate) 2.5 Mg/3 Ml Vial.neb, 2.5 MG INH QID PRN for SHORTNESS OF BREATH, (Reported) Albuterol Sulfate (Proair Hfa) 8.5 Gm Hfa.aer.ad, 2 PUFF INH Q4H PRN for SHORTNESS OF BREATH, (Reported) Metoclopramide HCl (Metoclopramide HCl) 5 Mg Tablet, 5 MG PO Q4HP PRN for NAUSEA OR VOMITING Polyethylene Glycol 3350 (Miralax) 17 Gm Powd.pack, 17 GM PO DAILY PRN for CONSTIPATION, (Reported) Allergies Coded Allergies: Iodinated Contrast Media (Verified Allergy, Severe, STOPS BREATHING, 02/23/20) latex (Verified Allergy, Severe, " everything reacts" , 02/23/20) fentanyl (Verified Allergy, Intermediate, hives, 02/23/20) HU SALGADO DO May 03, 2020 12:32
--- NOTE | 2020-05-03 13:01 | ECGEPIP ---
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
== END 2020-05-03 11:50 | disposition home or self-care (01) | DRG 282 ==
LOC: M ED 20:09 → M ED INP 04-30 03:37 → M MS5PR 04-30 04:45
PROVIDERS: ADMIT Family Medicine; ATTEND Internal Medicine
DX: K85.90 Acute pancreatitis without necrosis or infection, unspecified (principal); Z94.81 Bone marrow transplant status; G40.909 Epilepsy, unspecified, not intractable, without status epilepticus; E03.9 Hypothyroidism, unspecified; I73.00 Raynaud's syndrome without gangrene; R10.30 Lower abdominal pain, unspecified; J45.909 Unspecified asthma, uncomplicated; R00.0 Tachycardia, unspecified; R11.0 Nausea; Z85.79 Personal history of other malignant neoplasms of lymphoid, hematopoietic and related tissues; Z79.899 Other long term (current) drug therapy; Z88.8 Allergy status to other drugs, medicaments and biological substances; Z91.040 Latex allergy status; Z92.21 Personal history of antineoplastic chemotherapy; Z92.3 Personal history of irradiation; K29.70 Gastritis, unspecified, without bleeding; T39.315A Adverse effect of propionic acid derivatives, initial encounter

== ENCOUNTER 2020-05-04 02:28 | Emergency (ER) | payer MEDICAID ==
[~2020-05-04] VITALS: Ht 162.6 cm; Wt 68.2 kg
[~2020-05-04 02:28] MED LIST changes: +ACET1TAB55 PO; +ALBU83IN INH; +IBUP-1720 PO; +METO1TAB87 PO; +METO5TAB2 PO; +MIRA1POW3 PO; +OMEP40CA97 PO; +RA M10TA PO; +SUCR1TA PO
--- OUTSIDE RECORDS SUMMARY | 2020-05-04 02:36 | CCD ---
Author Author [facility] Organization [facility] Address Unknown Phone Unavailable Care Team Providers Care [employer] Physiological Technician Name Role Phone Palak Seymour MD Unavailable [...] Dawn, Cid Sandoval Gene Unavailable Unavailabl e VENERUSJmaes MD Unavailable Unavailable VENERUSJames MD Unavailable Unavailable VENERUSJames MD Unavailable Unavailable VENERUSJames MD Unavailable Unavailable VENERUSJames MD Unavailable Unavailable VENERUSJames MD Unavailable Unavailable VENERUSJames MD Unavailable Unavailable VENERUSJames MD Unavailable Unavailable VENERUSJames MD Unavailable Unavailable JOSE, ABILIO ROSA MARIA CABINET BUILDER-C Unavailable Unavailable JOSE, ABILIO ROSA MARIA CABINET BUILDER-C Unavailable Unavailable JOSE, ABILIO ROSA MARIA CABINET BUILDER-C Unavailable Unavailable JOSE, ABILIO ROSA MARIA CABINET BUILDER-C Unavailable Unavailable JOSE, ABILIO ROSA MARIA CABINET BUILDER-C Unavailable Unavailable JOSE, ABILIO ROSA MARIA CABINET BUILDER-C Unavailable Unavailable JOSE, ABILIO ROSA MARIA CABINET BUILDER-C Unavailable Unavailable JOES, ABILIO ROSA MARIA CABINET BUILDER-C Unavailable Unavailable JOSE, ABILIO ROSA MARIA CABINET BUILDER-C Unavailable Unavailable JOSE, ABILIO ROSA MARIA CABINET BUILDER-C Unavailable Unavailable JOSE, ABILIO ROSA MARIA CABINET BUILDER-C Unavailable Unavailable JOSE, BAILIO ROSA MARIA CABINET BUILDER-C Unavailable Unavailable JOSE, ABILIO ROSA MARIA CABINET BUILDER-C Unavailable Unavailable JOSE, ABILIO ROSA MARIA CABINET BUILDER-C Unavailable Unavailable JOSE, ABILIO ROSA MARIA CABINET BUILDER-C Unavailable Unavailable [place], Artis Dyer PA-C Unavailable Unavailable [place], M Manisha PA-C Unavailable Unavailable [place], M Manisha PA-C Unavailable Unavailable COOK, B BOO PHYS THERAPIST Unavailable Unavailable COOK, B BOO PHYS THERAPIST Unavailable Unavailable COOK, B BOO PHYS THERAPIST Unavailable Unavailable COOK, B BOO PHYS THERAPIST Unavailable Unavailable COOK, B BOO PHYS THERAPIST Unavailable Unavailable COOK, B BOO PHYS THERAPIST Unavailable Unavailable COOK, B BOO PHYS THERAPIST Unavailable Unavailable COOK, B BOO PHYS THERAPIST Unavailable Unavailable COOK, B BOO PHYS THERAPIST Unavailable Unavailable COOK, B BOO PHYS THERAPIST Unavailable Unavailable COOK, B BOO PHYS THERAPIST Unavailable Unavailable COOK, B BOO PHYS THERAPIST Unavailable Unavailable COOK, B BOO PHYS THERAPIST Unavailable Unavailable COOK, B BOO PHYS THERAPIST Unavailable Unavailable COOK, B BOO PHYS THERAPIST Unavailable Unavailable COOK, B BOO PHYS THERAPIST Unavailable Unavailable COOK, B BOO PHYS THERAPIST Unavailable Unavailable COOK, B BOO PHYS THERAPIST Unavailable Unavailable COOK, B BOO PHYS THERAPIST Unavailable Unavailable COOK, B BOO PHYS THERAPIST Unavailable Unavailable COOK, B BOO PHYS THERAPIST Unavailable Unavailable COOK, B BOO PHYS THERAPIST Unavailable Unavailable COOK, B BOO PHYS THERAPIST Unavailable Unavailable COOK, B BOO PHYS THERAPIST Unavailable Unavailable COOK, B BOO PHYS THERAPIST Unavailable Unavailable COOK, B BOO PHYS THERAPIST Unavailable Unavailable COOK, B BOO PHYS THERAPIST Unavailable Unavailable COOK, B BOO PHYS THERAPIST Unavailable Unavailable COOK, B BOO PHYS THERAPIST Unavailable Unavailable COOK, B BOO PHYS THERAPIST Unavailable Unavailable COOK, B BOO PHYS THERAPIST Unavailable Unavailable COOK, B BOO PHYS THERAPIST Unavailable Unavailable COOK, B BOO PHYS THERAPIST Unavailable Unavailable COOK, B BOO PHYS THERAPIST Unavailable Unavailable COOK, B BOO PHYS THERAPIST Unavailable Unavailable COOK, B BOO PHYS THERAPIST Unavailable Unavailable COOK, B BOO PHYS THERAPIST Unavailable Unavailable COOK, B BOO PHYS THERAPIST Unavailable Unavailable COOK, B BOO PHYS THERAPIST Unavailable Unavailable COOK, B BOO PHYS THERAPIST Unavailable Unavailable COOK, B BOO PHYS THERAPIST Unavailable Unavailable COOK, B BOO PHYS THERAPIST Unavailable Unavailable COOK, B BOO PHYS THERAPIST Unavailable Unavailable COOK, B BOO PHYS THERAPIST Unavailable Unavailable COOK, B BOO PHYS THERAPIST Unavailable Unavailable COOK, B BOO PHYS THERAPIST Unavailable Unavailable COOK, B BOO PHYS THERAPIST Unavailable Unavailable COOK, B BOO PHYS THERAPIST Unavailable Unavailable COOK, B BOO PHYS THERAPIST Unavailable Unavailable COOK, B BOO PHYS THERAPIST Unavailable Unavailable COOK, B BOO PHYS THERAPIST Unavailable Unavailable COOK, B BOO PHYS THERAPIST Unavailable Unavailable COOK, B BOO PHYS THERAPIST Unavailable Unavailable COOK, B BOO PHYS THERAPIST Unavailable Unavailable COOK, B BOO PHYS THERAPIST Unavailable Unavailable COOK, B BOO PHYS THERAPIST Unavailable Unavailable COOK, B BOO PHYS THERAPIST Unavailable Unavailable COOK, B BOO PHYS THERAPIST Unavailable Unavailable COOK, B BOO PHYS THERAPIST Unavailable Unavailable COOK, B BOO PHYS THERAPIST Unavailable Unavailable COOK, B BOO PHYS THERAPIST Unavailable Unavailable COOK, B BOO PHYS THERAPIST Unavailable Unavailable COOK, B BOO PHYS THERAPIST Unavailable Unavailable COOK, B BOO PHYS THERAPIST Unavailable Unavailable IGOR, M CASTRO PHYS THERAPIST Unavailable Unavailable IGOR, M CASTRO PHYS THERAPIST Unavailable Unavailable IGOR, M CASTRO PHYS THERAPIST Unavailable Unavailable IGOR, M CASTRO PHYS THERAPIST Unavailable Unavailable IGOR, M CASTRO PHYS THERAPIST Unavailable Unavailable IGOR, M CASTRO PHYS THERAPIST Unavailable Unavailable IGOR, M CASTRO PHYS THERAPIST Unavailable Unavailable IGOR, M CASTRO PHYS THERAPIST Unavailable Unavailable IGOR, M CASTRO PHYS THERAPIST Unavailable Unavailable IGOR, M CASTRO PHYS THERAPIST Unavailable Unavailable IGOR, M CASTRO PHYS THERAPIST Unavailable Unavailable IGOR, M CASTRO PHYS THERAPIST Unavailable Unavailable IGOR, M CASTRO PHYS THERAPIST Unavailable Unavailable IGOR, M CASTRO PHYS THERAPIST Unavailable Unavailable IGOR, M CASTRO PHYS THERAPIST Unavailable Unavailable IGOR, M CASTRO PHYS THERAPIST Unavailable Unavailable IGOR, M CASTRO PHYS THERAPIST Unavailable Unavailable IGOR, M CASTRO PHYS THERAPIST Unavailable Unavailable IGOR, M CASTRO PHYS THERAPIST Unavailable Unavailable IGOR, M CASTRO PHYS THERAPIST Unavailable Unavailable IGOR, M CASTRO PHYS THERAPIST Unavailable Unavailable IGOR, M CASTRO PHYS THERAPIST Unavailable Unavailable IGOR, M CASTRO PHYS THERAPIST Unavailable Unavailable IGOR, M CASTRO PHYS THERAPIST Unavailable Unavailable IGOR, M CASTRO PHYS THERAPIST Unavailable Unavailable IGOR, M CASTRO PHYS THERAPIST Unavailable Unavailable IGOR, M CASTRO PHYS THERAPIST Unavailable Unavailable IGOR, M CASTRO PHYS THERAPIST Unavailable Unavailable IGOR, M CASTRO PHYS THERAPIST Unavailable Unavailable IGOR, M CASTRO PHYS THERAPIST Unavailable Unavailable IGOR, M CASTRO PHYS THERAPIST Unavailable Unavailable IGOR, M CASTRO PHYS THERAPIST Unavailable Unavailable Quezada, Xiang[place] Unavailable Unavailable Quezada, [...] BAKER, Fiona CLIFTON MD Unavailable Unavailable BAKER, Fiona CLIFTON MD [...] Unavailable BAKER, Fiona CLIFTON MD Unavailable Unavailable Gerardo Shane MD Unavailable [...] Unavailable Unavailable Artis FONTENOT MD Unavailable Unavailable TURRIN, MANUELITO Unavailable Unavailable [...] is protected by Article 27-F of the [facility] Public Health law. If you continue you may have access to information: Regarding HIV / AIDS; Provided by facilities licensed or operated by the [facility] Office of Mental Health; or Provided by the [facility] Office for People With Developmental Disabilities. If such information is present, then the following [facility] mandated warning applies: This information has [...] law may result in a fine or senior living sentence or both. A general authorization for the release of medical or other information is NOT sufficient authorization for further disc losure. Allergies and Adverse Reactions Type Description Substance Reaction Status Data Source(s ) No Known Food Allergies No Known Food Allergies [facility] Drug allergy NOSE SPRAY NOSE SPRAY [facility] Drug allergy CT CONTRAST CT CONTRAST ANAPHYLAXIS [facility] CLASS CONTRAST MEDIA, IODINE RELATED CONTRAST MEDIA, I ODINE RELATED ANAPHYLAXIS [facility] BRANDNAME FENTANYL TRANSDERMAL SYSTEM FENTANYL TRANSDERMAL SYSTEM HI VES [facility] ENVIRONMENTAL LATEX LATEX [facility] Drug Class NO KNOWN ALLERGIES NO KNOWN ALLERGIES [facility] Drug allergy Fentanyl Fentanyl seizures Active eCW1 ([facility]) CT dye, contrast CT dye, contrast CT dye, contrast Anaphylaxis Acti ve eCW1 ([facility]) latex latex latex Anaphylaxis Active eCW1 ([facility]) latex latex latex Anaphylaxis Active eCW1 ([facility]) CT dye, contrast CT dye, contrast CT dye, contrast Anaphylaxis Acti ve eCW1 ([facility]) CT dye, contrast CT dye, contrast CT dye, contrast Anaphylaxis Acti ve eCW1 ([facility]) latex latex latex Anaphylaxis Active eCW1 ([facility]) Family History Family Member Name Family Member Gender Family Member Status Date o f Status Description Data Source(s) Unknown Female Problem MEDENT ([facility]) Encounters Encounter Providers Location Date Indications Data Source(s ) Outpatient Attender: NOELLE FONTENOT MD 01/11/2021 12:00:00 AM [facility] [place] [address] [address] 04/28/2020 12:00:00 AM EST eCW1 ([facility]) Outpatient Attender: NOELLE FONTENOT MD 04/27/2020 12:00:00 AM [facility] [place] [address] [address] 04/20/2020 12:00:00 AM EST eCW1 ([facility]) [place] [address] [address] 03/26/2020 12:00:00 AM EST eCW1 ([facility]) Outpatient Attender: Mariano Quezada [id number] 12:00:00 AM EST - 03/18/2020 08:34:34 AM EST 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, not intractable, without status epilepticus [facility] 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, not intractable, without status epilepticus Outpatient Attender: ROSA MARIA Kaye/Sindhu/Ron/Juwan hassan 03/03/2020 12:15:00 PM EST MED[facility] ([facility]) Office Visit Attender: ELODIA Rivera Woman sole rounder 02/2020 09:00:00 AM EST [facility] ([facility] [place] [address] [address] 02/25/2020 12:00:00 AM EST eCW1 ([facility]) Office Visit Attender: ELODIA BAKER MD [facility] sole rounder 07/2019 02:00:00 PM EST [facility] ([facility]) [place] [address] [address] 02/19/2020 12:00:00 AM EST eCW1 ([facility]) Outpatient Attender: ELODIA BAKER MD [facility] sole rounder 11:15:00 AM EDT [facility] ([facility]) Emergency Attender: JESSEE Bonillaender: ER PHYSICIAN 01/29/2020 01:38:00 PM EDT - 01/29/2020 06:59:00 PM EDT ABDOMINAL PAIN AND SEIZURES [facility] ABDOMINAL PAIN AND SEIZURES Patient discharged. Outpatient Referrer: VAMSI NOVOA MD 01/29/2020 10: 36:00 AM EDT seizure disorder [facility] seizure disorder Emergency Attender: MANUELITO Rosassultant: Nargis marte MD 01/29/2020 06:03:00 AM EDT - 01/29/2020 11:59:00 AM EDT [facility] Patient discharged. Outpatient Attender: Manisha Conrad PA-C [facility] Internal Med a t [place] 01/29/2020 03:53:00 AM EDT MEDENT ([facility]) Outpatient Attender: Mariano Quezada [id number] 12:00:00 AM EDT - 01/28/2020 12:03:03 PM T [facility] [place] [address] [address] 01/24/2020 12:00:00 AM EDT eCW1 ([facility]) [place] [address] [address] 01/20/2020 12:00:00 AM EDT eCW1 ([facility]) [place] [address] [address] 01/15/2020 12:00:00 AM EDT eCW1 ([facility]) Inpatient Attender: RACH POWELL MDAttender: Sandoval Triplette MDAdmitter: Sandoval Seymour MDReferrer: Sandoval Seymour MDConsultant: Sandoval Seymour MD [id number] 01/11/2020 12:00:00 AM EDT - 01/14/2020 12:10:00 PM EDT Epilepsy, unspecified, not intractable, with status ep ilepticus [facility] Epilepsy, unspecified, not intractable, with status epilepticus Patient discharged. Outpatient Attender: NOELLE FONTENOT MD [id number] 12/17 12:00:00 AM EDT - 01/06/2020 10:20:34 AM EDT Hodgkin lymphoma, unspecified, unspecified site [facility] Hodgkin lymphoma, unspecified, unspecifi ed site Outpatient Referrer: GLEN NELSON MD A-UHTRANS 11/29/2019 02:0 3:00 AM EDT [facility] encephalitis Outpatient Attender: Mariano Quezada [id number] 020 12:00:00 AM EDT - 11/05/2019 01:01:40 PM EDT [address] [address] 09/26/2019 12:00:00 AM EDT [facility] [address] [address] 09/24/2019 12:00:00 AM EDT eCW1 ([facility]) Outpatient Attender: BOO HEAD PHYS THERAPIST Physical Therapy 09/11/2019 0 8:30:00 AM EDT MED[facility] ([facility]) [address] [address] 09/03/2019 12:00:00 AM EDT [facility]CW1 [facility]) Outpatient Attender: BOO HEAD NP Physical Therapy 08/30/2019 1 0:45:00 AM EDT MED[facility] ([facility]) [address] [address] 08/27/2019 12:00:00 AM EDT [facility] [address] [address] 08/22/2019 12:00:00 AM EDT [facility]CW1 [facility] [address] [address] 08/20/2019 12:00:00 AM EDT [facility]CW1 [facility]) Outpatient Attender: Mariano Quezada [id number] 12:00:00 AM EDT - 08/07/2019 03:31:04 PM EDT 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, not intractable, without status epilepticus [facility] 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, not intractable, without status epilepticus [address] [address] 08/02/2019 12:00:00 AM EDT eCW1 ([facility]) [address] [address] 07/29/2019 12:00:00 AM EDT eCW1 ([facility]) [address] [address] 07/29/2019 12:00:00 AM EDT eCW1 ([facility]) [address] [address] 07/29/2019 12:00:00 AM EDT eCW1 ([facility]) Outpatient Attender: ELODIA Rivera Woman sole rounder 01:00:00 PM EST [facility] ([facility]) [address] [address] 06/04/2019 12:00:00 AM EST [facility]CW1 ([facility] [address] [address] 06/03/2019 12:00:00 AM EST [facility]CW1 ([facility] [address] [address] 05/30/2019 12:00:00 AM EST [facility] [address] [address] 05/30/2019 12:00:00 AM EST [facility] [address] [place] [address], [place] [address] 05/29/2019 12:00:00 AM EST [facility]CW1 [facility]) [address] [address] 05/21/2019 12:00:00 AM EST eCW1 ([facility]) Outpatient 04/26/2019 06:05:00 PM EST [facility] Emergency Attender: VAMSI NOVOA MDConsultant: Nargis hayward MD 04/26/2019 04:04:00 PM EST - 04/26/2019 07:47:00 PM EST [facility] Patient discharged. [address] [address] 04/26/2019 12:00:00 AM EST [facility]CW1 ([facility]) [address] [address] 04/26/2019 12:00:00 AM EST [facility]CW1 [facility]) Outpatient Attender: ELODIA Rivera Woman sole rounder 11/2019 01:45:00 PM EST [facility] ([facility]) [address] [address] 04/24/2019 12:00:00 AM EST [facility]CW1 [facility]) Outpatient Attender: NOELLE FONTENOT MD 04/24/2019 12:00:00 AM [facility] Outpatient Attender: NOELLE FONTENOT MD [id number] 09/2019 12:00:00 AM EST - 04/22/2019 03:02:39 PM EST Hodgkin lymphoma, unspecified, unspecified site [facility] Hodgkin lymphoma, unspecified, unspecifi ed site [address] [address] 03/26/2019 12:00:00 AM EST eCW1 ([facility]) [facility] [address] [address] 03/25/2019 12:00:00 AM EST eCW1 ([facility]) Outpatient Attender: CASTRO COSTA NP [facility] sole [facility] 08/2018 08:15:00 AM EST [facility] ([facility]) Outpatient Attender: ELODIA [facility] Woman sole rounder 10:45:00 AM EST MED[facility] ([facility]) Immunizations Vaccine Date Status Description Data Source(s) New in 2011. IIV4 04/01/2020 12:40:00 PM EST completed MED[facility] ([facility] ) Medications Medication Brand Name Start Date Product Form Dose Route Admi nistrative Instructions Pharmacy Instructions Status Indications Reaction Description Data Source(s) Levetiracetam 750 MG Oral Tablet levETIRAcetam 750 MG Oral Tablet (KEPPRA) levETIRAcetam 750 MG Oral Tablet (KEPPRA) 03/18/2020 12:00:00 AM EST 750 mg Oral active Take 1 tablet by tata th Two Times Daily [facility] lamotrigine 200 MG Oral Tablet lamoTRIgine 200 [...] AND TK PO D PRN FOR CONSTIPATION [facility] Acetaminophen 325 MG / Oxycodone Hydroch loride 5 MG Oral Tablet oxyCODONE- Acetaminophen 5-325 MG Oral Tablet (PERCOCET) oxyCODONE-Acetaminophen 5-325 MG Oral Tablet (PERCOCET) 02/20/2020 12:00:00 AM EST active TK 2 TS PO Q 4 H PRF PAIN. MDD [address] [place] [address] NITROFURANTOIN, MACROCRYSTALS 25 MG / Ni trofurantoin, Monohydrate 75 MG Oral Capsule Nitrofurantoin Monohyd Macro 100 MG Oral Capsule (MACROBID) Nitrofurantoin Monohyd Macro 100 MG Oral Capsule (MACROBID) 02/20/2020 12:00:00 AM EST active TK 1 C PO BID Ups [facility] celecoxib 200 MG Oral Capsule [Celebrex] Celebrex 02/19/2020 12 :00:00 AM EST ORAL active [facility] ([facility]) Acetaminophen 325 MG / Oxycodone Hydrochloride 5 MG Or al Tablet [Percocet] Percocet 02/18/2020 12:00:00 AM EST ORAL active [facility] ([facility]) Acetaminophen 325 MG / Hydrocodone Mounika trate 5 MG Oral Tablet HYDROcodone- Acetaminophen 5-325 MG Oral Tablet (LORTAB) HYDROcodone-Acetaminophen 5-325 MG Oral Tablet (LORTAB) 02/14/2020 12:00:00 AM EDT active TK 2 TS PO Q 4 H PRF PAIN. MDD [address] [place] [address] Acetaminophen 325 MG / Hydrocodone Bitartrate 5 MG Oral Tabl et [[place]] [place] 02/11/2020 12:00:00 AM EDT ORAL completed MED[facility] ([facility]) Ibuprofen 600 MG Oral Tablet Ibuprofen 02/11/2020 12:00:00 AM EDT ORAL active [facility] ([facility]) Magnesium Hydroxide 80 MG/ML Oral Suspen shanna magnesium hydroxide (MILK OF MAGNESIA) 400 MG/5ML suspension 45 mL magnesium hydroxide (MILK OF MAGNESIA) 4 00 MG/5ML suspension 45 mL 01/13/2020 10:00:00 PM EDT 45 mL Oral active 45 mL, Oral, Nightly, First dose on Mon01/13/20 at 2200, For 30 days
If serum creatinine > 2 notify provider before administering.
[facility] Medication administered onsite Docusate Sodium 100 MG Oral Capsule docusate sodium (C OLACE) capsule 100 mg docusate sodium (COLACE) capsule 100 mg 01/13/2020 09:00:00 AM EDT 100 mg Oral active 100 mg, Oral, 2 Times Daily, First dose on Mon01/13/20 at 0900, For 30 days [facility] Medication administered onsite sennosides, HALF-WAY 8.6 MG Oral Tablet senna tablet 2 tablet sen na tablet 2 tablet 01/13/2020 07:45:55 AM EDT 2 {tbl} Oral active 2 tablet, Oral, Nightly PRN, Constipation, Starting Mon01/13/20 at 0745, For 30 days [facility] Medication administered onsite sennosides, HALF-WAY 35.2 MG/ML Oral Solution senna (SENOKO T) syrup 10 mL senna (SENOKOT) syrup 10 mL 01/13/2020 07:45:55 AM EDT 10 mL Oral active 10 mL, Oral, Nightly PRN, Constipation, Starting Mon01/13/20 at 0745, For 30 days [facility] Medication administered onsite Bisacodyl 10 MG Rectal Suppository bisacodyl (DULCOLAX ) suppository 10 mg bisacodyl (DULCOLAX) suppository 10 mg 01/13/2020 07:45:55 AM EDT 10 mg Rectal active 10 mg, Rectal, Every 72 hours PRN, Constipation, Starting Mon01/13/20 at 0745, For 30 days
Hold if patient has had BM within the past 2 days.
[facility] Medication administered onsite magnesium sulfate in dextrose 5 % infusion (premix) 1 g [id number] [id number] 01/13/2020 04:00:00 AM EDT 1 g Intravenous completed 1 g, Intravenous, Administer over 60 Minutes, Once, Mon01/13/20 at 0400, For 1 dose [facility] Medication administered onsite 2 ML Metoclopramide 5 MG/ML Prefilled Sy ringe metoclopramide (REGLAN) injection 10 mg metoclopramide (REGLAN) injection 10 mg 01/13/2020 04:00:00 AM E DT 10 mg Intravenous completed 10 mg, I ntravenous, Once, Mon01/13/20 at 0400, For 1 dose [facility] Medication administered onsite Loratadine 10 MG Oral Tablet loratadine (CLARITIN) tab let 10 mg loratadine (CLARITIN) tablet 10 mg 01/13/2020 04:00:00 AM EDT 10 mg Oral completed 10 mg, Oral, Once, Mon01/13/20 at 0400, For 1 dose [facility] Medication administered onsite Melatonin 5 MG Oral Tablet melatonin tablet 5 mg melatonin t ablet 5 mg 01/13/2020 02:30:00 AM EDT 5 mg Oral completed 5 mg, Oral, Once, Mon01/13/20 at 0230, For 1 dose [facility] Medication administered onsite Acetaminophen 10 MG/ML Injectable Soluti on acetaminophen (OFIRMEV) infusion 1,000 mg acetaminophen (OFIRMEV) infusion 1,000 mg 01/13/2020 01:45:00 AM EDT 1000 mg Intravenous completed 1,000 mg , Intravenous, Administer over 15 Minutes, Once, Mon01/13/20 at 0145, For 1 dose
Maximum dose 3 gm daily from all sources
[facility] Medication administered onsite Metoprolol Tartrate 25 MG Oral Tablet me toprolol tartrate (LOPRESSOR) tablet 25 mg metoprolol tartrate (LOPRESSOR) tablet 25 mg 01/13/2020 12:00:00 AM EDT 25 mg Oral completed 25 mg, Oral, Once, Mon01/13/20 at 0000, For 1 dose [facility] Medication administered onsite pantoprazole 40 MG Delayed Release Oral Tablet pantoprazole (PROTONIX) EC tablet 40 mg pantoprazole (PROTONIX) EC tablet 40 mg 01/12/2020 09:45:00 PM E DT 40 mg Oral active 40 mg, Ora l, Daily Standard, First dose on 01/12/20 at 2145, For 30 days
Do not crush or chew
[facility] Medication administered onsite alginic acid 200 MG / Calcium Carbonate 80 MG / magnesium trisilicate 20 MG / Sodium Bicarbonate 70 MG Oral Tablet calcium carbonate (TUMS) chewable tablet 500 mg calcium carbonate (TUMS) chewable tablet 500 mg 2019 09:37:32 PM EDT 500 mg Oral active 500 mg, Oral, Three Times Daily-PRN, Indigestion, Heartburn, Starting 01/12/20 at 2137, For 30 days [facility] Medication administered onsite Famotidine 8 MG/ML Oral Suspension famot idine (PEPCID) 40 MG/5ML oral suspension 20 mg famotidine (PEPCID) 40 MG/5ML oral suspension 20 mg 09:00:00 PM EDT 20 mg Oral active 20 mg, O ral, 2 Times Daily, First dose on 01/12/20 at 2100, For 30 days
Tablet order changed to suspension due to backorder on tablets
[facility] Medication administered onsite sodium chloride 0.9 % bolus 500 mL 01/12/2020 08:15:00 PM EDT 500 mL Intravenous completed 500 mL, Intravenous, Once, [place] 01/12/20 at 2015, For 1 dose [facility] Medication administered onsite 1 ML Ketorolac Tromethamine 15 MG/ML [place] ketorolac (TORADOL) 15 MG/ML injection 15 mg ketorolac (TORADOL) 15 MG/ML injection 15 mg 0 09:45:00 AM EDT 15 mg Intravenous completed 15 mg, Intravenous, Once, [place] 01/12/20 at 0945, For 1 dose [facility] Medication administered onsite 0.4 ML Enoxaparin sodium [...] hours after epidural catheter has been removed.
[facility] Medication administered onsite sodium chloride 0.9 % bolus 1,000 mL 01/12/2020 05:45: 00 AM EDT 1000 mL Intravenous completed 1,000 mL , Intravenous, Once, [place] 01/12/20 at 0545, For 1 dose [facility] Medication administered onsite sodium chloride 0.9 % bolus 500 mL 01/12/2020 01:15:00 AM EDT 500 mL Intravenous completed 500 mL, Intravenous, Once, 01/12/20 at 0115, For 1 dose [facility] Medication administered onsite sodium chloride 0.9 % bolus 500 mL [id number] 01/11/2020 10:45:00 PM EDT 500 mL Intravenous completed 500 mL, Intravenous, Once, 01/11/20 at 2245, For 1 dose [facility] Medication administered onsite Levetiracetam 100 MG/ML Oral Solution le vETIRAcetam (KEPPRA) 100 MG/ML oral solution 750 mg levETIRAcetam (KEPPRA) 100 MG/ML oral solution 750 mg 01/11/2020 09:00:00 PM EDT 750 mg Per NG tube active 750 mg, Per NG tube, 2 Times Daily, First dose on 01/11/20 at 2100, For 30 days [facility] Medication administered onsite ondansetron (ZOFRAN) injection 4 [...] 2022, For 7 doses [Order 2 End] [facility] Medication administered onsite ondansetron (ZOFRAN) 4 MG/2ML injection [id number] 01/11/20 08:06:55 PM EDT completed Starting Sat at 2005, For 1 dose
Brayan SANCHEZ : cabinet override
[facility] Medication administered onsite Acetaminophen 32 MG/ML Oral [...] mg from all sources in 24 hours.
[facility] Medication administered onsite propofol (DIPRIVAN) infusion 1,000 mg/100 mL [id number] 01/11/2020 01:45:00 PM EDT ug/kg/min Intravenous aborted 1 0-80 mcg/kg/min 81.9 kg (4.914-39.312 mL/hr, rounded to 4.9-39.3 mL/hr), Intravenous, at 4.9- 39.3 mL/hr, Continuous, Starting 01/11/20 at 1345, For 30 days
Starting dose = 10 mcg/kg/minTitrate to maintain RASS of -3 Increase by 5-10 mcg/kg/minMax Dose = 80 mcg/kg/min Titrate down if RASS of -3
[facility] Medication administered onsite dexmedetomidine (PRECEDEX) in NaCl 0.9 % infusion 4 mcg/mL 1 25705 01/11/2020 01:30:00 PM EDT ug/kg/h Intravenous aborted 0.1-1.5 mcg/kg/hr 81.9 kg (2.0475-30.7125 mL/hr, rounded to 2-30.7 mL/hr), Intravenous, at 2-30.7 mL/hr, Continuous, Starting 01/11/20 at 1330, For 30 days
Starting dose = 0.2 mcg/kg/hrTitrate to maintain RASS of -3 Titrate by 0.1-0.2 mcg/kg/hrMax Dose = 1.5 mcg/kg/hr Titrate down if RASS of -3
[facility] Medication administered onsite NaCl infusion 0.9 % [id number] 01/11/2020 12:45:00 PM EDT Intravenous aborted at 100 mL/hr, Intrav enous, Continuous, Starting 01/11/20 at 1245, For 30 days [facility] Medication administered onsite lamotrigine 100 MG Oral Tablet lamoTRIgine (LaMICtal) tablet 200 mg lamoTRIgine (LaMICtal) tablet 200 mg 01/11/2020 11:45:00 AM EDT 200 mg Oral active 200 mg, Oral, 2 Times Daily, First dose (after last reorder) on 01/11/20 at 1145, For 30 days [facility] Medication administered onsite Levetiracetam 750 MG Oral Tablet levETIRAcetam (KEPPRA ) tablet 750 mg levETIRAcetam (KEPPRA) tablet 750 mg 01/11/2020 10:30:00 AM EDT 750 m g Oral aborted 750 mg, Oral, 2 Times Daily, First dose on 01/11/20 at 1030, For 30 days [facility] Medication administered onsite propofol (DIPRIVAN) infusion 200 mg/20 mL [id number] 01/11/2020 09:00:00 AM EDT ug/kg/min Intravenous completed 10-80 mcg/kg/min 81.9 kg (4.914-39.312 mL/hr, rounded to 4.9-39.3 mL/hr), Intravenous, at 4.9- 39.3 mL/hr, Once, 01/11/20 at 0900, For 1 dose
Starting dose = 10 mcg/kg/minTitrate to maintain RASS of -2 Increase by 5-10 mcg/kg/minMax Dose = 80 mcg/kg/min Titrate down if RASS of 0
[facility] Medication administered onsite Levothyroxine Sodium 0.2 MG Oral Tablet [Synthroid] Synthroid 200 MCG Oral Tablet Synthroid 200 MCG Oral Tablet 10/07/2019 12:00:00 AM EDT 200 ug Oral aborted Take 200 mcg by mouth daily [facility] Levothyroxine Sodium 0.2 MG Oral Tablet [Synthroid] Synthroi d 09/11/2019 12:00:00 AM EDT ORAL active M [facility] ([facility]) Levetiracetam 750 MG Oral Tablet levETIRAcetam 750 MG Oral Tablet (KEPPRA) levETIRAcetam 750 MG Oral Tablet (KEPPRA) 08/07/2019 12:00:00 AM EDT 750 mg Oral aborted Take 1 tablet by tata th [facility] [employer] [facility] lamotrigine 200 MG Oral Tablet lamoTRIgine 200 [...] Hydrocodone Bitartrate 5 MG Oral Tabl et [[place]] [place] 06/11/2019 12:00:00 AM EST ORAL active [facility] ([facility]) Ibuprofen 600 MG Oral Tablet Ibuprofen 06/11/2019 12:00:00 AM EST ORAL active [facility] ([facility]) Levothyroxine Sodium 0.175 MG Oral Tablet Levothyroxin e Sodium 175 MCG Levothyroxine Sodium 175 MCG 05/30/2019 12:00:00 AM EST active 1 tablet in the morning on an empty stomach eCW1 ([facility]) gabapentin 100 MG Oral Capsule Gabapentin 04/24/2019 12:00:00 AM EST active [facility] ([facility]) Metronidazole 500 MG Oral Tablet Metronidazole 04/24/2019 12:00:00 AM EST ORAL completed [facility] ([facility]) Levothyroxine Sodium 0.15 MG Oral Tablet Levothyroxine Sodium 150 MCG Levothyroxine Sodium 150 MCG 03/26/2019 12:00:00 AM EST active 1 tablet in the morning on an empty stomach eCW1 ([facility]) Levothyroxine Sodium 0.15 MG Oral Tablet Levothyroxine Sodium 150 MCG Levothyroxine Sodium 150 MCG 03/26/2019 12:00:00 AM EST active 1 tablet in the morning on an empty stomach eCW1 ([facility]) 1 ML heparin sodium, porcine 43622 UNT/ML Injection Heparin Sodium (Porcine) 03/13/2019 12:00:00 AM EST completed [facility] ([facility]) lamotrigine 200 MG Oral Tablet lamoTRIgine (LAMICTAL) 200 MG tablet lamoTRIgine (LAMICTAL) 200 MG tablet 10/08/2018 12:00:00 AM EDT 200 mg Oral aborted Nonintractable generalized idiopathic epilepsy without status epilepticus Take 1 tablet by mouth Two Times Daily [facility] Nonintractable generalized idiopathic ep ilepsy without status epilepticus Levetiracetam 750 MG Oral Tablet levETIRAcetam (KEPPRA ) 750 MG tablet levETIRAcetam (KEPPRA) 750 MG tablet 10/08/2018 12:00:00 AM EDT 750 m g Oral aborted Take 1 tablet by mouth Two T imes Daily [facility] Amitriptyline Hydrochloride 25 MG Oral T ablet Amitriptyline HCl 25 MG Oral Tablet (ELAVIL) Amitriptyline HCl 25 MG Oral Tablet (ELAVIL) 25 mg Oral aborted Take 25 mg by mouth Two Times Da [facility] gabapentin 100 MG Oral Capsule Gabapentin 100 MG Oral Capsule (NEURONTIN) Gabapentin 100 MG Oral Capsule (NEURONTIN) 100 mg Oral aborted Take 100 mg by mouth Two Times Daily [facility] lamotrigine 200 MG Oral Tablet lamoTRIgine 200 MG Oral Tablet (LaMICtal) lamoTRIgine 200 MG Oral Tablet (LaMICtal) 200 mg Oral aborted Take 200 mg by mouth Two Times Daily [facility] Levetiracetam 750 MG Oral Tablet levETIRAcetam 750 MG Oral Tablet (KEPPRA) levETIRAcetam 750 MG Oral Tablet (KEPPRA) 750 mg Oral aborted Take 750 mg by mouth Two Times Daily [facility] Levothyroxine Sodium 0.112 MG Oral Table t levothyroxine (SYNTHROID, LEVOTHROID) 112 MCG tablet levothyroxine (SYNTHROID, LEVOTHROID) 112 MCG tablet 112 ug Oral aborted Take 112 mcg by mout h Daily [facility] Insurance Providers Payer name Policy type / Coverage type Policy ID Covered republican ID Covered republican's relationship to [place] Policy [place] Plan Information EMEDNY [id number] SP [id number] MEDICAID M [id number] Self [id number] MEDICAID - O/P EMERGENCY ROOM [id number] 18 [id number] MEDICAID HEA [id number] MEDICAID M [id number] Self [id number] MEDICAID [id number] SP [id number] ANS-Medicaid [id number] ANS-Medicaid [id number] ANSI-Medicaid [id number] ANSI-Medicaid [id number] ANSI-Medicaid [id number] ANSI-Medicaid [id number] ANSI-Medicaid [id number] ANSI-Medicaid [id number] ANSI-Medicaid [id number] ANSI-Medicaid [id number] ANSI-Medicaid [id number] ANSI-Medicaid [id number] ANSI-Medicaid [id number] ANSI-Medicaid [id number] MEDICAID [id number] S [id number] ANSI-Medicaid [id number] ANSI-Medicaid [id number] ANSI-Medicaid [id number] ANSI-Medicaid [id number] ANSI-Medicaid [id number] ANSI-Medicaid [id number] ANSI-Medicaid [id number] ANSI-Medicaid [id number] ANSI-Medicaid [id number] MEDICAID [id number] SP [id number] MEDICAID [id number] S [id number] MEDICAID [id number] UNAVAILABLE UNAVAILA BLE MEDICAID OR CLINIC [id number] B [id number] Medicaid OR Clinic Medicaid Self SELF PAY UNAVAILABLE UNAVAILA BLE MEDICAID -PHYSICIAN [id number] MEDICAID-O/P [id number] MEDICAID - CLINIC [id number] Medicaid [place] Medicaid Self Medicaid [id number] MEDICAID W [id number] S [id number] MEDICAID 3 [id number] SELFPAY 5 UNAVAILABLE 1 UNAVAILA BLE MEDICAID -RECURRING [id number] 1 8 [id number] MEDICAID - CLINIC [id number] W UNAVAILABLE UNAVAILA BLE Problems, Conditions, and Diagnoses Code Display Name Description Problem Type Effective Dates Data Source(s) H91.93 382080917 Decreased hearing of both ears Problem 04/20/2020 12:00:00 AM EST eCW1 ([facility]) G47.19 [id number] Excessive daytime sleepiness Problem 01/20/2020 12:00:00 AM EDT eCW1 ([facility]) G40.909 025522804 Seizure disorder Problem 01/20/2020 12:00:00 AM EDT eCW1 ([facility]) F44.5 187448407 Pseudoseizures Problem 08/02/2019 12:00:00 A M EDT eCW1 ([facility]) F44.5 364889840 Pseudoseizures Problem 08/02/2019 12:00:00 A M EDT eCW1 ([facility]) 723645340 Chronic interstitial cystitis Chronic interstitial cys titis Problem 04/08/2019 12:00:00 AM EST [facility] ([facility]) 838248137 History of Hodgkin lymphoma History of Hodgkin lymphom a Problem 04/08/2019 12:00:00 AM EST [facility] ([facility]) I73.00 003385307 Raynaud's phenomenon without gangrene Pro blem 03/25/2019 12:00:00 AM EST eCW1 ([facility]) N30.10 921484651 Interstitial cystitis Problem 03/25/2019 12: 00:00 AM EST eCW1 ([facility]) E16.2 585172063 Hypoglycemia Problem 03/25/2019 12:00:00 AM EST eCW1 ([facility]) 582014450 Raynaud's phenomenon Raynaud's phenomenon Problem 03/25/2019 12:00:00 AM EST [facility] ([facility]) 312947222 Hypoglycemia Hypoglycemia Problem 03/25/2019 12:00:00 A M EST [facility] ([facility]) E16.2 366423905 Hypoglycemia Problem 03/25/2019 12:00:00 AM EST eCW1 ([facility]) I73.00 167656959 Raynaud's phenomenon without gangrene Pro blem 03/25/2019 12:00:00 AM EST eCW1 ([facility]) N30.10 761540192 Interstitial cystitis Problem 03/25/2019 12: 00:00 AM EST eCW1 ([facility]) G40.309 Generalized idiopathic epile psy and epileptic syndromes, not intractable, without status epilepticus Generalized idiopathic epilepsy and epileptic syndromes, not intractable, without status epilepticus Diagnosis 03/18/2020 07:26:37 AM [facility] seizure disorder seizure disorder Diagnosis 01/29/2020 10 :36:00 AM [facility] [id number] Latex allergy status Latex allergy status Diagnosis 01/29/2020 06:03:00 AM [facility] E039 Hypothyroidism, unspecified Hypothyroidism, unspecifie d Diagnosis 01/29/2020 06:03:00 AM [facility] [id number] Unspecified asthma, uncomplicated Unspecified as thma, uncomplicated Diagnosis 01/29/2020 06:03:00 AM [facility] R1084 Generalized abdominal pain Generalized abdominal pain Diagnosis 01/29/2020 06:03:00 AM [facility] [id number] Epilepsy, unspecified, not intractable, without status epilepticus Epilepsy, unspecified, not intractable, without status epilepticus Diagnosis 01/29/2020 06:03:00 AM [facility] G40.901 Epilepsy, unspecified, not intractable, with status epilepticus Epilepsy, unspecified, not intractable, with status epilepticus Diagnosis 01/12/2020 01:58:11 PM EDT [facility] s/p seizure s/p seizure Diagnosis 11/29/2019 02:03:00 AM [facility] intubated intubated Diagnosis 11/29/2019 02:03:00 AM ED [facility] encephalitis encephalitis Diagnosis 11/29/2019 02:03:00 A M [facility] N924 Excessive bleeding in the premenopausal period Excessive bleeding in the premenopausal period Diagnosis 04/26/2019 04:04:00 PM [facility] R102 Pelvic and perineal pain Pelvic and perineal pain Diag nosis 04/26/2019 04:04:00 PM [facility] Surgeries/Procedures Procedure Description Date Indications Data Source(s) VAGINAL HYSTERECTOMY UTERUS 250 GM/< 02/13/2020 12:00: 00 AM EDT [facility] BLOOD COUNT COMPLETE AUTO&AUTO DIFRNTL WBC COUNT CBC AND DIFFER ENTIAL Routine 01/14/2020 3:53 AM EDT 01/14/2020 03:53:00 AM [facility] BASIC METABOLIC PANEL CALCIUM TOTAL BASIC METABOLIC PANEL Routi ne 01/14/2020 3:53 AM EDT 01/14/2020 03:53:00 AM EDT [facility] EKG 12-LEAD - CMAXX REPORT EKG 12-LEAD - CMAXX REPORT 01/13/2020 12:17 AM EDT 01/13/2020 12:17:52 AM EDT [facility] EKG 12-LEAD - CMAXX REPORT EKG 12-LEAD - CMAXX REPORT 01/13/2020 12:17 AM EDT 01/13/2020 12:17:52 AM EDT [facility] EKG 12-LEAD EKG 12-LEAD Routine 01/13/2020 12:17 AM EDT 01/13/2020 12:17:52 AM [facility] BLOOD COUNT COMPLETE AUTO&AUTO DIFRNTL WBC COUNT CBC AND DIFFER ENTIAL Routine 01/12/2020 4:59 AM EDT 01/12/2020 04:59:00 AM [facility] BASIC METABOLIC PANEL CALCIUM TOTAL BASIC METABOLIC PANEL Routi ne 01/12/2020 4:59 AM EDT 01/12/2020 04:59:00 AM EDT [facility] BASIC METABOLIC PANEL CALCIUM TOTAL BASIC METABOLIC PANEL Routi ne 01/11/2020 3:50 PM EDT 01/11/2020 03:50:00 PM EDT [facility] BLOOD GASES ANY COMBINATION PH PCO2 PO2 CO2 HCO3 BLOOD GAS, ART ERIAL Routine 01/11/2020 1:22 PM EDT 01/11/2020 01:22:[address] [facility] [address] HEAD/BRAIN W/O CONTRAST MATERIAL CT HEAD WITHOUT CONTRAST 70 450 STAT 01/11/2020 9:52 AM EDT 01/11/2020 09:52:10 AM [facility] COVID-19 PCR COVID-19 PCR Routine 01/11/2020 9:22 AM EDT 01/11/2020 09:22:00 AM [facility] BASIC METABOLIC PANEL CALCIUM IONIZED POCT ISTAT CHEM8 Routine 01/11/2020 9:19 AM EDT 01/11/2020 09:19:00 AM EDT [facility] GONADOTROPIN CHORIONIC QUANTITATIVE POCT ISTAT BHCG Routine 01/11/2020 9:13 AM EDT 01/11/2020 09:13:00 AM EDT [facility] BLOOD GASES ANY COMBINATION PH PCO2 PO2 CO2 HCO3 POCT ISTAT VBG /LAC Routine 01/11/2020 9:10 AM EDT 01/11/2020 09:10:00 AM [facility] LAMOTRIGINE LAMOTRIGINE Routine 01/11/2020 9:01 AM EDT 01/11/2020 09:01:00 AM [facility] LEVETIRACETAM LEVEL LEVETIRACETAM LEVEL Routine 01/11/2020 9:01 AM EDT 01/11/2020 09:01:00 AM [facility] URNLS DIP STICK/TABLET REAGENT AUTO MICROSCOPY URINALYSIS W ITH MICROSCOPIC STAT 01/11/2020 8:57 AM EDT 01/11/2020 08:57:00 AM [facility] BLOOD COUNT COMPLETE AUTO&AUTO DIFRNTL WBC COUNT CBC AND DIFFER ENTIAL STAT 01/11/2020 8:57 AM EDT 01/11/2020 08:57:00 AM [facility] HEPATIC FUNCTION PANEL HEPATIC FUNCTION PANEL A STAT 0 8:57 AM EDT 01/11/2020 08:57:00 AM [facility] BASIC METABOLIC PANEL CALCIUM TOTAL BASIC METABOLIC PANEL STAT 01/11/2020 8:57 AM EDT 01/11/2020 08:57:00 AM EDT [facility] EKG 12-LEAD - CMAXX REPORT EKG 12-LEAD - CMAXX REPORT 01/11/2020 8:56 AM EDT 01/11/2020 08:56:40 AM EDT [facility] EKG 12-LEAD - CMAXX REPORT EKG 12-LEAD - CMAXX REPORT 01/11/2020 8:56 AM EDT 01/11/2020 08:56:40 AM EDT [facility] EKG 12-LEAD EKG 12-LEAD STAT 01/11/2020 8:56 AM EDT 01/11/2020 08:56:40 AM T [facility] EKG 12-LEAD - CMAXX REPORT EKG 12-LEAD - CMAXX REPORT 01/11/2020 8:56 AM EDT 01/11/2020 08:56:00 AM EDT [facility] XR CHEST FRONTAL ONLY [id number] XR CHEST FRONTAL ONLY [id number] STAT 01/11/2020 8:45 AM EDT 01/11/2020 08:45:00 AM EDT [facility] BLOOD COUNT COMPLETE AUTOMATED CBC AND DIFFERENTIAL STAT 01/06/2020 9:20 AM EDT Hodgkin lymphoma, unspecified Hodgkin lymphoma type, unspecified body region 01/06/2020 09:20:00 AM EDT Hodgkin lymphoma, unspecified Hodgkin ly mphoma type, unspecified body region [facility] Hodgkin lymphoma, unspecified Hodgkin ly mphoma type, unspecified body region LACTATE DEHYDROGENASE LDH LACTATE DEHYDROGENASE STAT 01/05 9:20 AM EDT Hodgkin lymphoma, unspecified Hodgkin lymphoma type, unspecified body region 01/06/2020 09:20:00 AM EDT Hodgkin lymphoma, unspecified Hodgkin ly mphoma type, unspecified body region [facility] Hodgkin lymphoma, unspecified Hodgkin ly mphoma type, unspecified body region COMPREHENSIVE METABOLIC PANEL COMPREHENSIVE METABOLIC PANEL [place] 01/06/2020 9:20 AM EDT Hodgkin lymphoma, unspecified Hodgkin lymphoma type, unspecified body region 01/06/2020 09:20:00 AM EDT Hodgkin lymphoma, unspecified Hodgkin ly mphoma type, unspecified body region [facility] Hodgkin lymphoma, unspecified Hodgkin ly mphoma type, unspecified body region TRANS CARE MGMT 7 DAY DISCH 08/02/2019 12:00:00 AM EDT eCW1 ([facility]) Transitional Care NO CHARGE Visit 07/29/2019 12:00:00 AM EDT eCW1 ([facility]) Laparoscopy W/Removal Of Adnexal Struc Oophorectomy/Salp 06/13/2019 12:00:00 AM EST [facility] ([facility]) BLOOD COUNT COMPLETE AUTO&AUTO DIFRNTL WBC COUNT CBC AND DIFFER ENTIAL STAT 04/22/2019 2:00 PM EST Hodgkin lymphoma, unspecified Hodgkin lymphoma type, unspecified body region 04/22/2019 07:00:00 PM EST Hodgkin lymphoma, unspecified Hodgkin ly mphoma type, unspecified body region [facility] Hodgkin lymphoma, unspecified Hodgkin ly mphoma type, unspecified body region LACTATE DEHYDROGENASE LDH LACTATE DEHYDROGENASE STAT 04/22 2:00 PM EST Hodgkin lymphoma, unspecified Hodgkin lymphoma type, unspecified body region 04/22/2019 07:00:00 PM EST Hodgkin lymphoma, unspecified Hodgkin ly mphoma type, unspecified body region [facility] Hodgkin lymphoma, unspecified Hodgkin ly mphoma type, unspecified body region COMPREHENSIVE METABOLIC PANEL COMPREHENSIVE METABOLIC PANEL STA T 04/22/2019 2:00 PM EST Hodgkin lymphoma, unspecified Hodgkin lymphoma type, unspecified body region 04/22/2019 07:00:00 PM EST Hodgkin lymphoma, unspecified Hodgkin ly mphoma type, unspecified body region [facility] Hodgkin lymphoma, unspecified Hodgkin ly mphoma type, unspecified body region Irrigation Of Bladder 04/08/2019 12:00:00 AM EST [facility] ([facility]) Irrigation Of Bladder 03/28/2019 12:00:00 AM EST [facility] ([facility]) Results ID Date Data Source [id number] 04/30/2020 01:53:00 AM EST [facility] Name Value Range Interpretation Code Description Data Corrie rce(s) Supporting Document(s) SARS-CoV-2 (COVID 19) NEGATIVE - SARS-CoV-2 (COVID19) [facility] This lab was ordered by [facility] a nd reported by [facility]. ID Date Data Source [id number] 04/28/2020 12:21:00 AM EST [facility] Name Value Range Interpretation Code Description Data Corrie rce(s) Supporting Document(s) SARS coronavirus 2 RNA [Presence] in Res piratory specimen by ALIX with probe detection NEGATIVE [facility] This lab was ordered by [facility] a nd reported by [facility]. ID Date Data Source [id number] 03/30/2020 01:33:45 AM [facility] Name Value Range Interpretation Code Description Data Corrie rce(s) Supporting Document(s) Progress Note [facility] RYKHKa5qMfCOXjCg79/PCJlcOTNdf7MoGCdtVCa0MNdcNXKuZ0KmSYL8fM9yNJG7OUaTMdYlQzTcIwI9 lbm ItGmmHDeLxYUDmQiaUQdTpEPgxOpsawBLnDR1YfDD3KYNsT65jOUEqIVVdP8DcKYBeCXm+Rs4HEKExgD OxYO2FFbwT4H5if0QDIg9+Vfc/ZRYD2hAABFo/RvqSEYTgFWMStmQHkkogQBfmL0F7qeNa/wbTbxMV8Z yu1vkTCNwGMzUwkDi5c3/TM1Kq+F52lLeFvpTgiJ+H v7ywh06o3K//ouav+d7Da/N/spfIDzwnceLiB/k/fffLHzzrqPUdR+BJTDvqz4tweqyEC0IhSp1eH7kf b71c0ysbFgf+uea40GtA+8cHKklcz/M/ZB2mSx9Y7o780ngu8jJvRFtA1oYKJaLgtlZRIJwVUkqk6R0m Hz5vpmsISd5QhcauPr3H/dgL2V+a8FXoGw5qPVb8XW z3ZtUn9GCGLFcnYG5c0GQD1pbq8XcGb5YBWC858Il9y2JqlU/fk9Eb9APxIooRq2oho/iKbvyqvJ1H5j oaDJvEsn6YJiwGVzsbHnsKKIkSuaaqkozHd+wOCZ998RzZVysUaXlKM/zaGvRCDB1vP33bHxx1RxJNgW TrHg2nAwBOSSq6FOi92p446bIxB5NF5TN1lfP0OjgW 7vEy2wa/C8L3BoK5TQ7kZpL6pooqO+20I5qCafuJM2mD7k2Y2oug8oXtd6KwwdGE4xyMr72Pw7elO4ea htv0auCyWIQIA5nx0CsnLMmSrnkPp5ZHJLLX9AQ+brG2v1cLo7aHDB10lXlmdLHQtw8vOmKc7QVIu03l 71tRXUjrg3NckrJnjKeT3slb3gZCddd+7aTe8t7gYh QBFDBTZgrfyAUBh42nNP8WvMSYR2mlA1lm8RMixqHvQ5eXYCh2dKdkEagaAiA9AoJ0ZLUgs0RjDJBOnZ 6RUZ+gcPW78QY+IO2SjMAKjevBn1KPfnzGtF1Ccd4yEXAZKQL/jQQyvp+hoZwH1mmLy7cktm31bo/Sofie [file] PrCWSP/MAP/T+photographer lithographic+5//HdPhSPU4Q44gDcrYmXRd/tZjJIvz1SlgP5r/K4I27ABCbQzA1Nh+zzchr4wta [file] ICAgICAgICAgICAgICAgICAgICAgICAgICAgICAgIC AgICAgICAgICAgICAgICAgICAgICAgICAgICAgICAgICAgICAgICAgICAgICAgICAgICAgICAgICAgIC VqOBPgQF8QDBIkAEMoNMIeKTGdUPTiFCVkOUMmCPMdHGAgQKNmDFUnVYPbSDKcIGKtEMSfYQKuPAXtSC AgICAgICAgICAgICAgICAgICAgICAgICAgICAgICAg VLEuRJNtYOFaQCHoEHSuDZ1RRRKpTLTyBUTdZRIlSEAcSLFvIVAgITWvUDYzEBTaIFDbEEPcFJJiRDBp SBBnKAHiXBUzTMEbCGPwABRhGQPaIRQyTRExILCjTGJvBGMqOQWiRKAtCYPzZUDgXMLzFDIbMPBwGE5B ICAgICAgICAgICAgICAgICAgICAgICAgICAgICAgIC AgICAgICAgICAgICAgICAgICAgICAgICAgICAgICAgICAgICAgICAgICAgICAgICAgICAgICAgICAgIC JfIWQlPBHaYN9ZGPVnJHNdMJFxCLYqNOKnRLZaUPTqOUPjIYGyUQFyTBLvSSGyCOLfDENdMMVvVJGwBC AgICAgICAgICAgICAgICAgICAgICAgICAgICAgICAg LJAoGBRzWGWnAAMxZHVaKYXnYO3DQMAeQQIxEFJgNRHdGIZtOFGcLNYxXYHfTJIaVSAbSGVzAHXfZCYz ICAgICAgICAgICAgICAgICAgICAgICAgICAgICAgICAgICAgICAgICAgICAgICAgICAgICAgICAgICAg ZS4FWISrNSZcXEMwOFZpELShTUPrWSNrOYDhURCpNY AgICAgICAgICAgICAgICAgICAgICAgICAgICAgICAgICAgICAgICAgICAgICAgICAgICAgICAgICAgIC QvVEUbLLDiHDRwNQ9NPMLuDPWkNXRjGGXpYFBfCTZgTOOeFBXjAYFpLWRbQLOqDGUcLGFgQTQhLKFrJJ AgICAgICAgICAgICAgICAgICAgICAgICAgICAgICAg GWLdKUSrKAZnRTJoWJPjOJSmIMNoIT0QLSOwTPUqHAZcHXWtBLVwGFLiOUVxDYEdYCMoBLIqZEMuSUAp ICAgICAgICAgICAgICAgICAgICAgICAgICAgICAgICAgICAgICAgICAgICAgICAgICAgICAgICAgICAg WKYoHF5RXIZrARGqXCAwPPAsBERqLIRfBOWbFDQhDI AgICAgICAgICAgICAgICAgICAgICAgICAgICAgICAgICAgICAgICAgICAgICAgICAgICAgICAgICAgIC BiUMJsMZTxCKKoFGBhLE1XTA04yBUfw0L3KUHeLP9luxj/Jq3KDObslkIopLYjBO4KGwDhOK5hay8MZa MrNS2mob1YUYpHGoAzQ6W1jHTrQJZdXBKVXrFgB12k ACcqJt12XRqoISLlOqXxMKo3Pf1WSiUvX8cnWIFxYbH1ELWpExH1KUZrNpC2SOQcRpKtKKHzGEWiCBMl EFZAAHV5YXWnIhChHyJcXARfZJtnXSTXZJFnMMSqKzAuLfQkDYNoPJ0UXAYtK891owGiKYAFRe9+DQpl tvHoHqoPDyEdBBYsl0ReOHa1RK4IBPBqTdnbi1KqKA RhRIIPUXsqQM4BIAH8UMHpKWJmUq4VDLQlG219taUkJA5FKq9VRtIqRH3bon9QGMFnBXJlSubITqe1LT aiUL1DiPHeKNtCla8qndCfqhDJy5XrimOkoLDKvFTyU0IouivdUtkrhNoqRKWeKMRfOEPaKc7pTMBoHF R3YaU7FZMKMD7WPMPjIFKwcVLwPZHfZDUAUD3WVRhm MJR6XWMhmuXnxBNpBDskIY8TDODtazUhBQYiFSJEGSr+Wd0IQI6wm5LxSNc8DnRnMX8dgx2AVZcYAoRs P5C4xITvP6Q8YFeeKr4KJEDzAOEaMzrxYBSOJNawNA5ICL4cxxU1LB7IbQKuKLYvVDQbbDCuYWe8E72q wMRrCJbhCF7TVAI+Sadie+Da3ESEChRFUvCLLcCzJzCN WKGaUeT0HwE8GOj6SgK7HzGM40vJoeaaZnSVpfIO1ZJR4dAFMuKFFQHN6KhXZzkZ5eyrA5UEHmTGZSMl WiR44wgLBmYAYvOVN9GQImRk2QAULgO8DjyyIcbSgljwVnMWGwXHZQBG1PNSyqqiZxzNZdwSwlXQ12fV kyNM7IFn5LNmPiAM2gvb5AhVFmIw1CEKW3Gc7TAADy LPMlZPVwRIF9MYWmHeUfQYrbSXBpWYNkSOL4NHVnJMXfDX9EMsOoVSCtJgEzWMZzKLCeLVXfrk6EEOHf IXI1HBq5OBEjOWIpJZKyHEbaTNSzBGPiBAM5YPFdAXRcMZ6JKcTeRWGsBEF8OKooOFShABVuzx2YCVWm FBDsPZd4AQWiURSmNUGiDOtbYWNnZSB6OQihCMFeTR LtZW6PGzFbJPOmJZjfOVzwPNJjORLakd3OOEHaWOHqZDzsWYMlAGPrUOWsGUhbQBXyPXPzJPG5GOUpYL UwNB5VCzAjASOjLHT3LVMrJHIfLGQweo1YWGEhCFCiOQVnTZAeBGFxDWSbEWitVTGiJZS6UxFdSRRmWQ XcXU2DCfPkBRVuFYg7IPOeXTWjXCVmjt1DJPBiNGEa UPh4PzPyKLOlWTAhHUatODWhMJYtGZdlPUOvFTEfPN4QRhWwKHDiWbK9OHzvWUOeRUErrq2VLCGxHWDv InloHUHfOLPbWAPrMGwmYFAlHLG4FUG8OQBaTZBgEG3YEuSdTYMwBtL3TSKvABArWDVoxj9JTWCeURCf VLU0NGTdNWAuHDZhLJbsLHEkFIEpDxh0SQOeRWBiMJ 9CRwQlRDCuXtJ8MzInYFIvOYQqqt4IMSEoFTViVAJoXVCjIFXmJTGeARekJSHxJAI9GTtyZOXkZKKlPP 1JLeSnMODfZbYuQJymNAJtJZMghe2YMHExJNFoCDB4ONFlFDOmCBQlCJusHDLlEZG9PGFpBLTyRWEyNQ 3OXmEzAUOvRdR2XjXtLGDaCMPueq9NUQJnTGLmNxyl ALOvYCGzTDPnLXjrTWLbDJA5OccfCTStPLFiIP9XAqYeAEJmHCj7EDYrREHoEUPzdj4DTHMuHKL5DYT2 YUArJEKtWMErGLscKKIlFQF2YKF7KDCrJWYbFM1KHbQyIDLsDJd3WMXlLEYuTFLkjv6PWEBqCHK7JMM3 AyIjYNWzTUSaIYrkMRZqCSZ3LPN2BCQwPYUcQC6LJh UyYTHuCnWdJiGfRZMqQWLzgc7WVMFmREY6DIZvUICpBPPfFCZxAHdqZJDsGSUmDYH8UPOdOERfEH5KWt NhQOCcCuXcIXGxESBaBIUgut6GHODrZQO1GyH6PBToFORxFBAsYEf7rmYajRNhTGw7LQ9LO4YvfsDvUB JVYd2Jy828RMKkWTVmLy9HX2iwYm0tZMByRGEXSk3B FDk9UtWvSNL3LvcaCTenZCIxJib6EBr8UYwuOVLcHGO0XZp+CFutT9C9PjmnU9StKAJaEVGeBJgnYiao O0TxLHWbYUk9OF6jAMRFQx0+RErprUEjpXqnHYSIUoNgVBPeZVttHCFJHr0R ID Date Data Source LAMOTRIGINE (LAMICTAL) 03/20/2020 12:00:00 AM EST eCW1 ([facility]) Name Value Range Interpretation Code Description Data Corrie rce(s) Supporting Document(s) 0.6 2.0-20.0 LAMOTRIGINE (LAMICTAL) eCW1 ([facility]) ID Date Data Source [id number] 03/20/2020 12:00:00 AM EST eCW1 ([facility] Name Value Range Interpretation Code Description Data Corrie rce(s) Supporting Document(s) Hemoglobin A1c/Hemoglobin.total in Blood 5.3 HEMOGLOBIN A1c eCW1 ([facility]) ID Date Data Source [id number] 02/08/2020 09:00:00 AM EDT [facility] Name Value Range Interpretation Code Description Data Corrie rce(s) Supporting Document(s) SARS coronavirus 2 RNA [facility] This lab was ordered by [facility] and reported by [facility]. ID Date Data Source [id number] 01/31/2020 09:01:00 [place] [address] PHONE: [phone] FAX: [phone] Name .................. : SOCO Wisdom Acct Number.................. : [id number] ROOM. ................. : TR-07 Number ................... : [id number] Stay type ............. : E/R Discharge Date......... ... : 01/29/20 Admit Date ......... : 01/29/20 Admit Phys .................... : WEI BRISCOE Date of ....... : 1990 Family Phys ................... : SKIPTON KA Phone .................. : [phone] Age ................................ : 29 Film# .................. .:[id number] Sex ................................. : F Unsigned transcriptions are preliminary reports and do not represent a medical or legal document CT ABD & PELV W/O ORAL W/O IV [id number] COMPLETE:01/29/20 07:22 RLB [id number] Reason(s): periumbilical pain w vomiting CT SCAN [...] or ureteral calculi. Page 1 of 2 [facility] [address] [place] [address] PHONE: [phone] FAX: [phone] Name ............. ..... : SOCO Wisdom Acct Number.................. : [id number] ROOM. ................. : TR-07 MR Number ................... : [id number] Stay type ............. : E/R Discharge Date......... ... : 01/29/20 Admit Date ......... : 01/29/20 Admit Phys .................... : WEI BRISCOE Date of ....... : 1990 [facility] Phone .................. : [phone] Age ................................ : 29 Film# .................. .:[id number] Sex ................................. : F Unsigned transcriptions are preliminary reports and do not represent a medical or legal document CT ABD & PELV W/O ORAL W/O IV [id number] COMPLETE:01/29/20 07:22 RLB [id number] Reason(s): periumbilical pain w vomiting While performing [...] rce(s) Supporting Document(s) ID Date Data Source [id number] 01/31/2020 09:00:00 AM EDT [facility] [address] [place] [address] PHONE: [phone] FAX: [phone] Name .................. : SOCO Wisdom Acct Number.................. : [id number] ROOM. ................. : TR-07 Number ................... : [id number] Stay type ............. : E/R Discharge Date......... ... : 01/29/20 Admit Date ......... : 01/29/20 Admit Phys .................... : WEI BRISCOE Date of ....... : 1990 Family Phys ................... : SEMAJ VAUGHN Phone .................. : [phone] Age ................................ : 29 Film# .................. .:[id number] Sex ................................. : F Unsigned transcriptions are preliminary reports and do not represent a medical or legal document CHEST PORTABLE [id number] COMPLETE:01/29/20 06:31 RLB [id number] Reason(s): seizure PORTABLE CHEST X-RAY: COMPARISON: 09/22/11 FINDINGS: There is no evidence of acute consolidation or congestive heart failure. The heart is not enlarged. There is no hilar adenopathy. IMPRESSION: No evidence of significant acute pulmonary disease. Electronically Reviewed and Signed By Madhu Costa MD , 01/31/20 09:00, [facility] Transcribe Initials: EPHRAIM , Transcribe Date: 01/29/20 23:31, Dictation Date: Copy for: 710 MED REC DISCHARGED Page 1 of 1 Name Value Range Interpretation Code Description Data Corrie rce(s) Supporting Document(s) ID Date Data Source [id number] 01/31/2020 09:00:00 AM EDT [facility] [address] [place] [address] PHONE: [phone] FAX: [phone] Name .................. : SOCO Wisdom Acct Number.................. : [id number] ROOM. ................. : TR-07 MR Number ................... : [id number] Stay type ............. : E/R Discharge Date......... ... : 01/29/20 Admit Date ......... : 01/29/20 Admit Phys .................... : WEI BRISCOE Date of ....... : 1990 Family Phys ................... : SEMAJ VAUGHN Phone .................. : [phone] Age ................................ : 29 Film# .................. .:[id number] Sex ................................. : F Unsigned transcriptions are preliminary reports and do not represent a medical or legal document CT HEAD W/O CONTRAST [id number] COMPLETE:01/29/20 07:41 [id number] Reason(s): Headache CT SCAN OF THE HEAD [...] By Madhu Costa MD , 01/31/20 09:00, [facility] Transcribe Initials: EPHRAIM , Transcribe Date: 01/29/20 16:29, Dictation Date: Page 1 of 2 [place] [address] PHONE: [phone] FAX: [phone] Name .................. : SOCO Wisdom Acct Number.................. : [id number] ROOM. ................. : TR-07 MR Number ................... : [id number] Stay type ............. : E/R Discharge Date......... ... : 01/29/20 Admit Date ......... : 01/29/20 Admit Phys .................... : WEI BRISCOE Date of ....... : 1990 Family Phys ................... : SEMAJ VAUGHN Phone .................. : [phone] Age ................................ : 29 Film# .................. .:[id number] Sex ................................. : F Unsigned transcriptions are preliminary reports and do not represent a medical or legal document CT HEAD W/O CONTRAST [id number] COMPLETE:01/29/20 07:41 [id number] Reason(s): Headache Copy for: 710 MED REC DISCHARGED Page 2 of 2 Name Value Range Interpretation Code Description Data Corrie rce(s) Supporting Document(s) ID Date Data Source [id number] 01/29/2020 06:03:00 AM EDT [facility] 1 OrderSheet [facility] Emergency Department [address] [place] [address] Phone #: ext- [phone] 01/29/2020 06:00 Patient: NERY WAN Sex: F : 1990 Age: 29yWEIGHT:68.0 kg (S) HEIGHT:64 inches (S) BMI:25.8ALLERGIES: Fentanyl and Related, IV Contrast, Ketamine, LatexCHIEF COMPLAINT: seizure, x1, seizure, [id number]: Seizure, Abdominal painLAB ORDERSOrder Description Priority Entered Acknowledged InitialedHA[facility] w Diff STAT 06:12 01/29/2020 06:31 Wei [...] R.N. M.D.;Urinalysis (Clean STAT 08:23 01/29/2020 08:24 Carolyn Sharma) Vamsi Garcia R.N. Physician;Urine Drug Screen STAT 08:23 01/29/2020 08:24 Vamsi Sharma R.N. Physician;DIAGNOSTIC STUDY ORDERSOrder Description Priority Entered Acknowledged InitialedChest Portable 1 STAT 06:12 01/29/2020 06:31 Carroll Niño Riccardo Robert R.N.(Oxygen?(No)) Ying; Reason for Study: seizure 2 OrderSheet [facility] Emergency Department [address] [place] [address] Phone #: ext- [phone] 01/29/2020 06:00 Patient: NERY WAN Sex: F : 1990 Age: 29yCT Abd PEL W/ IV STAT 06:41 01/29/2020 Ack'd: 06:45 Glenys Sullivan R.N.Contrast Only Manuelito Nova Cancelled: Duplicate Order 06:54 Wei(Oxygen?(No)) Ying; Devan del real M.D.(IV?(Yes)) Reason for Study: periumbilical pain w vomitingCT ABD PEL W/O STAT 06:54 01/29/2020 07:38 Zachary,Oral W/O IV Manuelito NovaNKaylahContrast Ying;(Oxygen?(No))(IV?(Yes)) Reason for Study: periumbilical pain w vomitingCT Head W/O Cont STAT 07:41 01/29/2020 07:42 Marley(Oxygen?(No)) Vamsi Elmore RN Physician; NOTES: Seizures Reason for Study: HeadacheMEDICATION/IV/DRIP/FLUID ORDERSOrder Description Priority Entered Acknowledged InitialedAtivan IVP 2 mg 06:13 01/29/2020 06:39 Nate(HIGH ALERT Manuelito Nova R.N.MEDICATION) Ying;NS IV 1000 mL 06:13 01/29/2020 06:50 [place],Bolus: : Bolus 1000 WaylonrinManuelito R.N.mL (X1) Ying;Phenergan IV 25mg 06:13 01/29/2020 06:52 Salinasin 50mL NS, give TurrinManuelito R.N.wide open: 25 mg M.D.;(NOW x1, HIGHALERTMEDICATION)Morphine IVP 4 mg 08:16 01/29/2020 08:31 Zachary,(NOW, HIGH ALERT Vamsi Garcia R.N.MEDICATION) Physician;Zofran 4 mg IVP X 1 08:16 01/29/2020 08:31 Zachary,dose: 4 mg (NOW Vamsi Garcia R.N.x1) Physician;Keppra 1000 mg 10:36 01/29/2020 10:52 PeterIVPB X1 dose: 1000 Vamsi Childers RNmg with Dextrose Physician;Intravenous 100 mL(D5W) 3 OrderSheet [facility] Emergency Department [address] [place] [address] Phone #: ext- [phone] 01/29/2020 06:00 [id number] Sex: F : 1990 Age: 29yGENERAL ORDERSOrder Description Priority Entered Acknowledged InitialedBlood Pressure 06:12 01/29/2020 06:30 [place],Monitor Manuelito Nova R.N., M.D.;Certified Health Education Specialist 06:12 01/29/2020 06:30 [place](continuous) Manuelito Nova R.N., M.D.;EKG 06:12 01/29/2020 06:30 Wei Niño Riccardo Robert R.N. M.D.;NPO 06:12 01/29/2020 06:30 Wei Niño Riccardo Robert R.N. M.D.;Obtain Old EKG 06:12 01/29/2020 06:45 Wei Sullivan Riccardo Melissa R.N. M.D.;Obtain Old Records 06:12 01/29/2020 06:45 Wei Sullivan Riccardo Melissa R.N. M.D.;Oxygen titrate to 06:12 01/29/2020 06:30 [place],92% Manuelito Nova R.N., M.D.;Pulse oximeter 06:12 01/29/2020 06:30 [place](Continuous) Manuelito Nova R.N., M.D.;Saline Lock 06:12 01/29/2020 06:30 Wei Niño Riccardo Robert R.N. M.D.;Vitals 06:12 01/29/2020 06:31 Wei Niño Riccardo Robert R.N. M.D.;[Electronically signed by Wesley Childers RN (11:59 01/29/2020)][Electronically signed by Vamsi Novoa (14:30 01/29/2020)][Electronically signed by Manuelito Nova M.D. (07:38 01/30/2020)][Electronically locked by Wesley Childers RN (11:59 01/29/2020)] Name Value Range Interpretation Code Description Data Corrie rce(s) Supporting Document(s) ID Date Data Source [id number] 01/29/2020 06:03:00 AM EDT [facility] 1 Medication Reconciliation Report [facility] Emergency Department [address] [place] [address] Phone #: ext- [phone] 01/29/2020 06:00 Patient: [...] 01/29/2020 6:50:00 AM 2 Medication Reconciliation Report [facility] Emergency Department [address] [place] [address] Phone #: ext- [phone] 01/29/2020 06:00 Patient: [...] rce(s) Supporting Document(s) ID Date Data Source [id number] 01/29/2020 06:03:00 AM EDT [facility] 1 Medication Administration Record [facility] Emergency Department [address] [place] [address] Phone #: ext- [phone] 01/29/2020 06:00 Patient: NERY WAN Sex: F : 1990 Age: 29yWeight: 68.0 kgHeight/Length: 64 inBMI: 25.8ALLERGIES: Fentanyl and Related, Ketamine, Latex, IV Contrast Date/Time Medication Administered Medication OrderedGiven ATIVAN [IVP] (LORAZEPAM) Ativan IVP 2 mg (HIGH ALERT06:14 01/29/2020 Dose: 2 mg IVP MEDICATION)Glenys Sullivan R.N. Site: #1Start NS [IV] NS IV 1000 mL Bolus: : Bolus 952199:50 01/29/2020 Dose: IV Fluids mL (X1)Denys Niño R.N. Bolus: 1000 mL wide open---- Dispensed: 1000 mL bagStop Site: #1 right EJ07:38 01/29/2020Radha Sharma RKaylahNKaylahStart PHENERGAN [IV DRIP] Phenergan IV 25mg in 50mL NS,06:51 01/29/2020 (PROMETHAZINE HCL) give wide open: 25 mg (NOW x1,Denys Niño RKhai Dose: 25 mg Drip IV HIGH ALERT [...] Dose: 4 mg IVP (NOW x1)Radha Sharma R.NKaylah Site: #1 right EJStart KEPPRA [IVPB] (LEVETIRACETAM) Keppra 1000 mg IVPB X1 dose:10:52 01/29/2020 Dose: 1000 mg IVPB 1000 mg with Carola Childers RN Rate: 400 mL/hr over 15 minute(s) Intravenous 100 mL (D5W)---- Dispensed: 100 mL bagStop Site: #1 right EJ11:11 01/29/2020Wesley Childers RN Name Value Range Interpretation Code Description Data Corrie rce(s) Supporting Document(s) ID Date Data Source [id number] 01/29/2020 06:03:00 AM EDT [facility] 1 General Instructions [facility] Emergency Department [address] [place] [address] Phone #: ext- [phone] 01/29/2020 06:00 Patient: NERY WAN Sex: F : 1990 Age: 29y(Electronically signed by Manuelito Nova M.D. 01/30/2020 07:38)Generalized abdominal pain of undetermined cause.Generalized seizure of unknown cause. History of poorly controlled and idiopathic etiology epilepsy. Nofebrile seizure or status epilepticus.(Electronically signed by Vamsi Novoa, Physician 01/29/2020 14:30) Name Value Range Interpretation Code Description Data Corrie rce(s) Supporting Document(s) ID Date Data Source [id number] 01/29/2020 06:03:00 AM EDT [facility] 1 Clinical Report - Nurses [facility] Emergency Department [address] [place] [address] Phone #: ext- [phone] 01/29/2020 06:00 Patient: NERY WAN Sex: F : 1990 Age: 29yTRIAGEArrived by private vehicle. ( Per patient's fiance, patient was released from [facility] for seizures. Hx ofseizures. Per report, patient was home for an hour and began complaining of abdominal pain andrequested to go to the hospital. While in the car, patient had a seizure and became unresponsive. Patientassisted to room 7. Dr. Nova to bedside.).Triage time: 06:07 01/29/2020. 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 2 Clinical Report - Nurses [facility] Emergency Department [address] [place] [address] Phone #: ext- [phone] 01/29/2020 06:00 Patient: NERY WAN Sex: F : 1990 Age: 29y metroNIDAZOLE Oral (Tablet 500 mg) 1 tablet, daily (for 7 days, d/c 05/01/2019). MiraLax Oral 1 packet, daily. Nexplanon Subcutaneous. --06:15 01/29/20 Manuelito Nova M.D. Allergies Fentanyl and Related.(hives) (seizures) Ketamine.(hives, SOB) Latex. --06:15 01/29/20 Manuelito Nova M.D. IV Contrast. --06:54 01/29/20 Denys Niño [...] in arms/hands). --06:34 01/29/20 Glenys Sullivan R.N. bucket operator, NIBP monitor and pulse oximeter placed on patient. EKG time: (06:16 01/29/2020). EKG was performed by a nurse and shown to the ED physician. Patient gowned. Reassurance given. Patient identifiers checked. Call light placed in reach. Bed placed in lowest position. Brakes of bed on. --06:35 01/29/20 Glenys Sullivan R.N. 3 Clinical Report - Nurses [facility] Emergency Department [address] [place] [address] Phone #: ext- [phone] 01/29/2020 06:00 Patient: NERY WAN Sex: F [...] 100%. Temp: 98.6 F. Pain level now 11/24.--09:19 01/29/20 Radha Sharma R.N.R eassessment after medication administered. She is calm and resting quietly. Overall patient status is 4 Clinical Report - Nurses [facility] Emergency Department [address] [place] [address] Phone #: ext- [phone] 01/29/2020 06:00 Patient: NERY WAN Sex: F : 1990 Age: 29y the same- she states feels the same. --09:01/29/20 Radha Sharma R.N. 10:24 01/29/20. BP: 135/94. MAP: 107. HR: 112. RR: 18. O2 saturation: 100%. Pain level now: 10/24. --10:25 01/29/20 Wesley Childers RN ( pt remains awake and alert, continues to voice a headache and abdominal pain, waiting for final results). --10:25 01/29/20 Wesley Childers RN 10:52 01/29/2020 Started 1000 [...] [facility] --10:55 01/29/20 Wesley Childers RN 11:11 01/29/2020 [...] Wesley Childers RN.DISPOSITION / DISCHARGE Transferred to [facility]. Visit overview and summary of care (CCDA) [...] Childers RN 5 Clinical Report - Nurses [facility] Emergency Department [address] [place] [address] Phone #: ext- [phone] 01/29/2020 06:00 Patient: NERY WAN Sex: F : 1990 Age: 29y De parture time: 11:59 01/29/2020. --11:59 01/29/20 Wesley Childers RN.Locked/Released at 01/29/2020 11:59 by Wesley Childers RN Name Value Range Interpretation Code Description Data Corrie rce(s) Supporting Document(s) ID Date Data Source [id number] 01/29/2020 06:03:00 AM EDT [facility] 1 Clinical Report - Physicians/Mid Levels [facility] Emergency Department [address] [place] [address] Phone #: ext- [phone] 01/29/2020 06:00 Patient: [...] pt was admitted 4 weeks ago in [place] and 2 weeks ago in [place], and had multiple scans and EEG, to find out it's stress related; pt arguing w neighbors lately; 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 Similar symptoms previously. Patient has had similar symptoms many times, chronically. Recent medical care: The patient was seen recently at another facility in the emergency department. ( [facility] last evening).REVIEW OF SYSTEMSNo fever, [...] Hodgkin's lymphoma. 2 Clinical Report - Physicians/Mid [facility] Emergency Department [address] [place] [address] Phone #: ext- [phone] 01/29/2020 06:00 Patient: [...] normal. 3 Clinical Report - Physicians/Mid Levels [facility] Emergency Department [address] [place] [address] Phone #: ext- [phone] 01/29/2020 06:00 Patient: [...] 5.0) 4 Clinical Report - Physicians/Mid Levels [facility] Emergency Department [address] [place] [address] Phone #: ext- [phone] 01/29/2020 06:00 Patient: [...] mL/min Normal PT/PTT: (HUSSEIN: 01/29/2020 06:17) ( [facility] 01/29/2020 06:49) Final results Test Result Flag Units (Reference) PROTIME 13.3 SECONDS (11.0 - 15.5) INR 1.00 (0.93 - 1.23) PTT 29.0 SECONDS (24.8 - 36.7) \\BLDo\\INR INTERPRETATION\\BLDx\\ Therapeutic range for Coumadin and related oral anticoagulants. -International Normalized Ratio (INR): 2.0 - 3.0 for Venous Thrombosis, Pulmonary Embolus, Tissue heart valves, Acute TN Atrial Fibrillation, Valvular heart disease and recurrent Systemic Embolism. -International Normalized Ratio (INR): 2.5 - 3.5 for Mechanical Prosthetic valve. Troponin-T: (HUSSEIN: 01/29/2020 06:17) ( [facility] 01/29/2020 06:47) Final results Test Result Flag Units (Reference) TROPONIN T <0.01 NG/ML (0.00 - 0.10) TROPONIN T0.1 ng/ml Recommended as the clinical threshold value forTroponin T. Magnesium: (HUSSEIN: 01/29/2020 06:17) ( [facility] 01/29/2020 06:46) Final results Test Result Flag Units (Reference) MAGNESIUM 1.9 MG/DL (1.7 - 2.2) Chest Portable 1 View: (HUSSEIN: 01/29/2020 06:12) ( MsgRcvd 01/29/2020 06:31) In Progress CHEST PORTABLE Reason(s): seizure TRANSPORTATION: P IV? O2? Oxygen?(No) Room: ED. 5 Clinical Report - Physicians/Mid Levels [facility] Emergency Department [address] [place] [address] Phone #: ext- [phone] 01/29/2020 06:00 Patient: [...] disposition: discharge from ED.(Electronically signed by Manuelito Nova M.D. 01/30/2020 07:38) Time Seen: 07:00 01/29/2020 (Dr. Novoa assumes care from Dr. Nova). ED care transferred. Case discussed and assumed [...] and hospitalized. ( Has been hospitalized in [place] 4 weeks ago and [facility] 2 weeks ago and has had multiple scans and EEGs. Just seen and released from [facility] ED 1 hour before arriving here at [facility]REVIEW OF SYSTEMSNo fever, chest pain, palpitations, cough or difficulty breathing. No eye irritation, sore throat, diarrhea,black stools or difficulty with urination. No vomiting or bloody stools. The patient has had abdominal painand nausea. 6 Clinical Report - Physicians/Mid Levels [facility] Emergency Department [address] [place] [address] Phone #: ext- [phone] 01/29/2020 06:00 Patient: [...] RR: 12. O2 saturation: 100%. Temp: 98.6 FKaylah Finleyen reviewed and appear to be correct. Blood [...] the 7 Clinical Report - Physicians/Mid Levels [facility] Emergency Department [address] [place] [address] Phone #: ext- [phone] 01/29/2020 06:00 Patient: NERY WAN Sex: F [...] Not IndicateDrug Screen-Urine: (HUSSEIN: 01/29/2020 08:00) ( ScgRcvd 01/29/2020 08:51) Final results Test Result Flag [...] PRESUMPTIVE POSITIVE CONFIRMATION WILL BE PERFORMED AT [facility].CT ABD PEL W/O Oral W/O IV Contrast: (HUSSEIN: 01/29/2020 06:54) ( MsgRcvd 01/29/2020 07:22) InProgressCT ABDReason(s): periumbilical pain w vomitingTRANSPORTATION: S IV? IV?(Yes) O2? Oxygen?(No) RoCT Abd PEL W/ IV Contrast Only: (HUSSEIN: 01/29/2020 06:41) ( MsgRcvd 01/29/2020 06:54) CanceledReason(s): periumbilical pain w vomitingReason(s): periumbilical pain w vomitingTRANSPORTATION: S IV? IV?(Yes) O2? Oxygen?(No) RoCBC w Diff: (HUSSEIN: 01/29/2020 06:17) ( MsgRcvd 01/29/2020 06:50) Final results 8 Clinical Report - Physicians/Mid Levels [facility] Emergency Department [address] [place] [address] Phone #: ext- [phone] 01/29/2020 06:00 Patient: [...] Male GFR Interprentation 20-49 yrs >60 mL/min Kugevl89-58 yrs >56 mL/min Normal 60-69 yrs >49 mL/min Normal 70-79yrs>42 mL/min Normal 80 and above >35 mL/min Normal Female GFRInterpretation 20-39 yrs >60 mL/min Normal 40-49 yrs >58 mL/min 9 Clinical Report - Physicians/Mid Levels [facility] Emergency Department [address] [place] [address] Phone #: ext- [phone] 01/29/2020 06:00 Patient: NERY WAN Sex: F : 1990 Age: 29y Normal 50-59 yrs >51 mL/min Normal 60-69 yrs >45 mL/min Normal 70- 79 yrs >39 mL/min Normal 80 and above >32 mL/min Normal PT/PTT: (HUSSEIN: 01/29/2020 06:17) [facility] 06[facility]) Final results Test Result Flag Units (Reference) PROTIME 13.3 SECONDS (11.0 - 15.5) INR 1.00 (0.93 - 1.23) PTT 29.0 SECONDS (24.8 - 36.7) \\BLDo\\INR INTERPRETATION\\BLDx\\ Therapeutic range for Coumadin and related oral anticoagulants. -International Normalized Ratio (INR): 2.0 - 3.0 for Venous Thrombosis, Pulmonary Embolus, Tissue heart valves, Acute [place] Atrial Fibrillation, Valvular heart disease and recurrent Systemic Embolism. -International Normalized Ratio (INR): 2.5 - 3.5 for Mechanical Prosthetic valve. Troponin-T: (HUSSEIN: 01/29/2020 06:17) ( MsgRcvd 01/29/2020 06:47) [...] NEGATIVE (NORMAL: NEGAT { KIT LOT # [id number] ){ KIT EXP DATE 01.20.21 ){ PROCEDURAL [...] unremarkable. 10 Clinical Report - Physicians/Mid Levels [facility] Emergency Department [address] [place] [address] Phone #: [phone] 01/29/2020 06:00 Patient: NERY WAN Sex: F : 1990 Age: 29y Labs are unremarkable. Pt. wants to be transferred to [facility], but she has apparently been evaluated and discharged from there recently. I will speak to Neurology at [facility] and get their opinion. 11:16 Jan 29 2020. Pt. was accepted for transfer to [facility] by Dr. Cronin at 10:45AM. Pt. informed [...] to transfer explained to patient. Transferred to [facility]. Summary of care (CCDA) provided to transport team, EMS, patient, family and transfer facility via paper and digital media. 10:45 Jan 29 2020 Transfer to [facility] by ambulance as per Dr. Cronin [...] rce(s) Supporting Document(s) ID Date Data Source [id number] 01/29/2020 06:59:00 PM EDT [address] [address] RESPIRATORY CARE REPORT ==== ---------NAME------- NUMBER SEX AGE ADMIT DISC. XRAY# F/C MARY NERY Wisdom [id number] F 29 01/29/20 01/29/20 [id number] XBE E/R DATE OF : 1990 M/R# [id number] PH#: [phone] TR-07 LOCATION: [facility] [id number] COMPLETE:01/29/20 0 8:16 [facility] [id number] PHYSICIAN: WEI BRISCOE Name Value Range Interpretation Code Description Data Corrie rce(s) Supporting Document(s) ID Date Data Source [id number] 01/29/2020 08:51:00 AM EDT [facility] Name Value Range Interpretation Code Description Data [facility] rce(s) Supporting Document(s) DRUG SCREEN URINE [facility] URINE DRUG SCREEN Amphetamine [Presence] in Urine by Screen method NEGATIVE NORMAL: N EGATIVE [facility] BARBITURATES NEGATIVE NORMAL: NEGATIVE [facility] BENZO NEGATIVE NORMAL: NEGATIVE [facility] COCAINE NEGATIVE NORMAL: NEGATIVE [facility] Tetrahydrocannabinol [Presence] in Urine NEGATIVE NORMAL: NEGATIVE [facility] OPIATES NEGATIVE NORMAL: NEGATIVE [facility] Phencyclidine [Presence] in Urine by Screen method NEGATIVE NOR MAL: NEGATIVE [facility] \\BLDo\\URINE DRUG SCR EEN INTERPRETATION\\BLDx\\ THE CUTOFFF LEVELS FOR DETECTION ARE FOLLOWS: AMPHETAMINES 1000 ng/ml BARBITUARATES 200 ng/ml BENZODIAZEPINES 100 ng/ml THC 50 ng/ml PHENCYCLIDINE 25 ng/ml OPIATES 300 ng/ml COCAINE 300 ng/ml ALL POSITIVES ARE CONSIDERED PRESUMPTIVE POSITIVE CONFIRMATION WILL BE PERFORMED AT PHYSICIAN REQUEST. ID Date Data Source [id number] 01/29/2020 08:42:00 AM EDT [facility] Name Value Range Interpretation Code Description Data [facility](s) Supporting Document(s) URINALYSIS [facility] yellow NORMAL: Yellow [facility] CLARITY clear NORMAL: Clear [facility] sp[facility] Specific gravity of Urine by Test strip 1.005 1.001 - 1.030 [facility] pH 7 5 - 9 [facility] al Glucose [Mass/volume] in Urine by Test strip NORM NORMAL: Negat sy [facility] Bilirubin.total [Presence] in Urine by Test strip NEG NORMAL: Negative [facility] Ketones [Presence] in Urine by Test strip 5 NORMAL: Negative A [facility] Protein [Mass/volume] in Urine by Test strip NEG NORMAL: Negat sy [facility] Nitrite [Presence] in Urine by Test strip NEG NORMAL: Negative [facility] BLOOD NEG NORMAL: Negative [facility] Leukocyte esterase [Presence] in Urine by Test strip NEG STORMY L: Negative [facility] Urobilinogen [Mass/volume] in Urine by Test strip NOR less sapphire n 1.0 mg/dL [facility] MICROSCOPIC Not Indicate [facility] ID Date Data Source [id number] 01/29/2020 07:41:00 AM EDT [facility] Name Value Range Interpretation Code Description Data Corrie rce(s) Supporting Document(s) HCG SERUM QUAL NEGATIVE NORMAL: NEGATIVE [facility] HCG SERUM QL REENTER NEGATIVE NORMAL: NEGATIVE [facility] { KIT LOT # [id number] ){ KIT EXP DATE 01.20.21 ){ PROCEDURAL CONTROL VALID ) ID Date Data Source [id number] 01/29/2020 06:50:00 AM EDT [facility] Name Value Range Interpretation Code Description Data Corrie rce(s) Supporting Document(s) CBC W/AUTOMATED DIFF [facility] COMPLETE BLOOD COUNT Leukocytes [#/volume] in Blood by Automated count 6.7 10^3/uL 4.2 - 1 1.0 [facility] Erythrocytes [#/volume] in Blood by Automated count 4.35 10^6/uL 4. 20 - 5.40 [facility] Hemoglobin [Mass/volume] in Blood 11.8 g/dL 12.0 - 16.0 L [facility] Hematocrit [Volume Fraction] of Blood by Automated count 36.4 % 3 7.0 - 47.0 L [facility] Erythrocyte mean corpuscular volume [Entitic volume] by Auto mated count 83.7 fL 81.0 - 101 [facility] Erythrocyte mean corpuscular hemoglobin [Entitic mass] by Automated count 27.1 pg 27.0 - 34.0 [facility] Erythrocyte mean corpuscular hemoglobin concentration [Mass/volume] by Automated count 32.4 g/dL 31.0 - 36.0 [facility] Erythrocyte distribution width [Ratio] by Automated count 13.9 % 11.5 - 14.5 [facility] Platelets [#/volume] in Blood by Automated count 189 10^3/uL 150 - 45 0 [facility] Platelet mean volume [Entitic volume] in Blood by Automated count 9.6 fL 7.4 - 10.4 [facility] Neutrophils/100 leukocytes in Blood by Automated count 78.6 % 37. 0 - 80.0 [facility] Lymphocytes/100 leukocytes in Blood by Manual count 14.9 % 25.0 - 40.0 L [facility] Monocytes/100 leukocytes in Blood by Automated count 5.7 % 3.0 - 8.0 [facility] Eosinophils/100 leukocytes in Blood by Automated count 0.3 % 0.0 - 7.0 [facility] Basophils/100 leukocytes in Blood by Automated count 0.3 % 0.0 - 2.5 [facility] %IG 0.2 % 0.0 - 0.0 H [facility] al %NRBC 0.0 % 0.0 - 0.0 [facility] al Neutrophils [#/volume] in Blood by Automated count 5.23 10^3/uL 2.00 - 6.90 [facility] Lymphocytes [#/volume] in Blood by Automated count 0.99 10^3/uL 0.60 - 3.40 [facility] Monocytes [#/volume] in Blood by Automated count 0.38 10^3/uL 0.00 - 0.90 [facility] Eosinophils [#/volume] in Blood by Automated count 0.02 10^3/uL 0.00 - 0.70 [facility] Basophils [#/volume] in Blood by Automated count 0.02 10^3/uL 0.00 - 0.20 [facility] #IG 0.01 10^3/uL 0.00 - 0.10 [facility] ospital #NRBC 0.00 10^3/uL 0.00 - 0.00 [facility] MANUAL DIFF NOT INDICATED [facility] RBC MORPH NOT INDICATED [facility] Ho spital ID Date Data Source [id number] 01/29/2020 06:49:00 AM EDT [facility] Name Value Range Interpretation Code Description Data Corrie rce(s) Supporting Document(s) Prothrombin time (PT) 13.3 SECONDS 11.0 - 15.5 [facility] INR in Platelet poor plasma by Coagulation assay 1.00 0.93 - 1. 23 [facility] aPTT in Blood by Coagulation assay 29.0 SECONDS 24.8 - 36.7 [facility] \\BLDo\\INR INTERPRETATION\\BLDx\\ Therapeutic range for Coumadin and related oral anticoagulants. - International Normalized Ratio (INR): 2.0 - 3.0 for Venous Thrombosis, Pulmonary Embolus, Tissue heart valves, Acute [place] Atrial Fibrillation, Valvular heart disease and recurrent Systemic Embolism. - International Normalized Ratio (INR): 2.5 - 3.5 for Mechanical Prosthetic valve. ID Date Data Source [id number] 01/29/2020 06:47:00 AM EDT [facility] Name Value Range Interpretation Code Description Data Corrie rce(s) Supporting Document(s) COMPREHENSIVE METABOLIC PANEL [facility] COMPREHENSIVE METABOLIC PANEL Sodium [Moles/volume] in Serum or Plasma 140 mEq/L 134 - 153 [facility] Potassium [Moles/volume] in Serum or Plasma 4.0 mEq/L 3.6 - 5.0 [facility] Chloride [Moles/volume] in Serum or Plasma 107 mEq/L 98 - 107 [facility] Carbon dioxide, total [Moles/volume] in Serum or Plasma 24 MEQ/L 22 - 30 [facility] Glucose [Mass/volume] in Serum or Plasma 112 MG/DL 65 - 110 H [facility] BUN 8 MG/DL 7 - [facility] Creatinine [Mass/volume] in Serum or Plasma 0.6 MG/DL 0.7 - 1.5 L [facility] BUN/CREAT 13 8 - 27 [facility] al Protein [Mass/volume] in Serum or Plasma 6.6 G/DL 6.3 - 8.2 [facility] Albumin [Mass/volume] in Serum or Plasma 4.5 G/DL 3.9 - 5.0 [facility] Globulin [Mass/volume] in Serum by calculation 2.1 GM/DL 2.4 - 3.2 L [facility] A/G RATIO 2.1 0.8 - 2.0 H [facility] al Calcium [Mass/volume] in Serum or Plasma 9.1 MG/DL 8.4 - 10.2 [facility] Bilirubin.total [Mass/volume] in Serum or Plasma <0.7 MG/DL 0.2 - 1.3 [facility] Alkaline phosphatase [Enzymatic activity/volume] in Serum or Plasma 57 U/L 38 - 126 [facility] Aspartate aminotransferase [Enzymatic activity/volume] in Serum or Plasma 12 U/L 5 - 40 [facility] Alanine aminotransferase [Enzymatic activity/volume] in Seru m or Plasma 9 U/L 7 - 56 [facility] Anion gap 3 in Serum or Plasma 9.0 mmol/L 8.0 - 16.0 [facility] AGE 29 yrs [facility] al NON-AA GFR >60 mL/min [facility] ital AFR AMER GFR >60 mL/min [facility] Ho spital Male GFR In terprentation 20-49 [...] >32 mL/min Normal ID Date Data Source [id number] 01/29/2020 06:47:00 AM EDT [facility] Name Value Range Interpretation Code Description Data Corrie rce(s) Supporting Document(s) TROPONIN T <0.01 NG/ML 0.00 - 0.10 [facility] ospital TROPONIN T0.1 ng/ml Recommended as the c linical threshold value forTroponin T. ID Date Data Source [id number] 01/29/2020 06:46:00 AM EDT [facility] Name Value Range Interpretation Code Description Data Corrie rce(s) Supporting Document(s) Magnesium [Mass/volume] in Serum or Plasma 1.9 MG/DL 1.7 - 2.2 [facility] ID Date Data Source [id number] 01/28/2020 07:27:58 PM EDT [facility] Name Value Range Interpretation Code Description Data Corrie rce(s) Supporting Document(s) Progress Note [facility] CSENOk5hOxEXIbRd68/LSTupYDCih5YyBJalQRc9IAiyQHQrJ2OvNNG0iY7mXGP8XDrYSoZoPxMnPELr m [file] RLg63kP/3/Surface Grinder+xcs+J3q2vZyv+TLtyuKsV1j0aUgBpLRq5qw9LbuoROjAoPZG18/r/5qA6Gw1plnsqyN [file] WfbFWK8UDyLIMO/MAP/T+photographer lithographic+5//FnEnUUP5C58zUta [file] aiXKSLFs7N ID Date Data Source FREE T4 & TSH PANEL 01/21/2020 07:39:50 AM EDT e[facility] ([facility]) Name Value Range Interpretation Code Description Data Corrie rce(s) Supporting Document(s) 2.200 THYROID STIMULATING HORMONE eC W1 ([facility]) 1.01 FREE T4 eCW1 ([facility]) ID Date Data Source [id number] 01/18/2020 08:29:15 AM EDT [facility] Name Value Range Interpretation Code Description Data Corrie rce(s) Supporting Document(s) Progress Note [facility] XNFUQu9sKoVWKgTb05/CGFioHZLnw3BqIAnxKDj6STdiKZMdZ9FlLTC2sR1zCKQ2MKgIHlFeBwLqVGDn lbm [file] OYL4BOneQYB8EYUcYnXrXN9GYa5IFyQ3PHY1iMIgWt3QYWumDrVGEhScVX9LDSd= ID Date Data Source [id number] 01/18/2020 08:29:10 AM EDT [facility] Name Value Range Interpretation Code Description Data Corrie rce(s) Supporting Document(s) Progress Note [facility] HWBLYq2zJjODRbLy14/SBJprJNKna9OrKAxbJNn4HSapNDGwR2JlLDG7jL7qVTK3UYkZIiHwTySkVXGs lbm [file] mU5nj61NU25iaGe33kln0pvn9d6xUc4ByoJp3lAf9RR/ZF1nktrqC2/XvR/tCBwrUMpG+Meléndez+Mqzv0ZL [file] AgICAgICAgICAgICAgICAgICAgICAgICAgICAgICAgICAgICAgICAgICAgICAgICAgICAgICAgICAgIC AgICAgICAgICAgICAgICAgICAgICANCiAgICAgICAg ICAgICAgICAgICAgICAgICAgICAgICAgICAgICAgICAgICAgICAgICAgICAgICAgICAgICAgICAgICAg ICAgICAgICAgICAgICAgICAgICAgICAgICAgICAgICANCiAgICAgICAgICAgICAgICAgICAgICAgICAg ICAgICAgICAgICAgICAgICAgICAgICAgICAgICAgIC AgICAgICAgICAgICAgICAgICAgICAgICAgICAgICAgICAgICAgICAgICANCiAgICAgICAgICAgICAgIC AgICAgICAgICAgICAgICAgICAgICAgICAgICAgICAgICAgICAgICAgICAgICAgICAgICAgICAgICAgIC AgICAgICAgICAgICAgICAgICAgICAgICANCiAgICAg ICAgICAgICAgICAgICAgICAgICAgICAgICAgICAgICAgICAgICAgICAgICAgICAgICAgICAgICAgICAg ICAgICAgICAgICAgICAgICAgICAgICAgICAgICAgICAgICANCiAgICAgICAgICAgICAgICAgICAgICAg ICAgICAgICAgICAgICAgICAgICAgICAgICAgICAgIC AgICAgICAgICAgICAgICAgICAgICAgICAgICAgICAgICAgICAgICAgICAgICANCiAgICAgICAgICAgIC AgICAgICAgICAgICAgICAgICAgICAgICAgICAgICAgICAgICAgICAgICAgICAgICAgICAgICAgICAgIC AgICAgICAgICAgICAgICAgICAgICAgICAgICANCiAg ICAgICAgICAgICAgICAgICAgICAgICAgICAgICAgICAgICAgICAgICAgICAgICAgICAgICAgICAgICAg ICAgICAgICAgICAgICAgICAgICAgICAgICAgICAgICAgICAgICANCiAgICAgICAgICAgICAgICAgICAg ICAgICAgICAgICAgICAgICAgICAgICAgICAgICAgIC AgICAgICAgICAgICAgICAgICAgICAgICAgICAgICAgICAgICAgICAgICAgICAgICANCiAgICAgICAgIC AgICAgICAgICAgICAgICAgICAgICAgICAgICAgICAgICAgICAgICAgICAgICAgICAgICAgICAgICAgIC AgICAgICAgICAgICAgICAgICAgICAgICAgICAgICAN Cjw/fDPcW6pbdKHxqeJ4F7nkMa0KDv0UAE3zi2YsDNYqHVeskzJaHmaEFqAjWCYqQxgBHwx0ETppSG0J aQWmB2EgS4LpMSwyVG4KCJImYIEaeMHmXDJuDQZrItU6SIEfKTfpVR9QfZJdJBntTECrGEUkOnXbXPYu OSAwIFIgMTEgMCBSIDEzIDAgUiAxNSAwIFIgMTcgMC JLVL7ZKaWuV4IeyC57MKyGQl1+JWxhwwDzZabZCwL8BALbc0CcCHd9UC2JRHKyZrrnl6DsSmBvNEUOSJ pfFD1TEKI0LWW9XEXtZm5YJPRjH643tlTmJL7YAd4ZNaYlUG7pob7KZmDoTPRfSkkCHaq9NIdoKB8AzT LrLBvPhu4rshHcfbYJk2SnykIfuDJCJUHwPWK6vf3p gurfUGCkXPNlVI4gEC3vQXRyECR5QgOzCTTAEX4QEMKaJZFfsTKsXCPoVCZWHS1FTGxbVGK3TZAjrlAm rPEpYHqoEA0WMZXzhvBqJyScQPEDZOe+Iz3ANF4nf0RsGUdiYlLbGD2srp0BSSgBQpMvR4S3lBWjQ8B5 PZzaNg1CFXAaAEQrHmHjSPBGKJgrLT3DRW6okgO7UL 4ZbRMdUBScBHUeqIKoEUh1C48bySNsEOtmDG9PZMH+Sadie+Ga2DAILcZRBlWHIxQbEbSRPGQgDuL6LeV3 CXn3UsM1TqXG12pZqxhbMuZUlwVI2EWU8sILHhPMKUYB4QbHKplH0gzwYtFQRbTEWWWkVlP81ywLQoOY AeIAUvFTDmEh6AQXMgZ7EpgkZwmNgcooLeFTYbLERT AE2AXFoyorVonAFhrCvgUC91tDkhIL5JHn3AOoJlHQ1bae8AnXAtXi4DWOZrGv2FYXUxTDTySUSnZGG5 BJIaWrOsFNcoZCMlANVyWKT3RIIyLJXmDD0HKyLwMWKcLmY1ZFVgWOAlMMVzzz7YKQYxUKMvNBPyHKHg LHIbXVIuJGwqEKWnKPYnPNG1DZUoIFVaMA5JQoDgCU FlVWO0VZZaQCNiWQJfre5LFJFdOANrFtj5NdWiDKXbGDIuJHatFZLyHJW9WFE7LRJrNHIpFF3UXlZbOG VtQXloUbXtYWFfCYAotq3LUHNbLXAfJAVjHGSvUIAyZVLwLWkgLSPnJPTtRgZ4DOAsSXGlQH1LRlOaQK IhMIW9WUYwAVHtNEOiwe4UHSHpKVWoElu9SMDqJTJp YGLtGAcmSGObHQH1VHP8MRLtYOGuCU4UVhJnWMIxEFY5OfQhXZTtYQMybh4UUDFlZFMpQLSoVJQkWOUx QLJnJUprKKTmBJS0FaJrOSZyLQViVZ2PFnNqFFRpEQj2FAtjFOHyLWXzsb4HREJfFWEuGJNaWWXhMXQl PSMeWGpbFNIfBWFaMXM4KFTkAQRfZN0WGmLdWDNtGq SuXhXjNJLqDEWogw2AGOHuSTWnSCU7MCYxYQJqABArQCviESRdBVTcGCE9AWCmWXLcYS5GVrIvSLObAu V4RTReBWLgHAUtbr4RQCCkGQAcGyy4YAFtSSViKVQwCMjhDTUgYLV8XtG3KCCnBVPhNA2SKjOfPVMrOg X5CCqyJCTyGCRorh7XSJYlPYCnARj0QUVcLRZdFOYo QDkfXUKwHBN6RCR2NLDrQHSwEO1DJwXsECMoMaJoXWOrSDDaUVOlzn4OWEKgTRDkDjR2JTYqFOWdLBDp INmoODMvTFO7Ydd5RSDxANKePH4QGhFlENUwDdL2CvKqMWJvWRRsvn4DSZJwZFHwFfm2CFZgIPQaECHh AJcfFUZuXLZ7LtB0PGHwJDByGV2VMtGhOSYkQwa2Sp NaQRNjFKMgfu4TAKXzFQHkEPF4DiGeTZJhKKMlZMu8tcIpwMVrUEm0YA5GZ2HcogIkYbsVRn3Cn933DM D5UOZgCj0IN0veZc3gPFOhTGLSBl7CKKm4NuQ0UdfbCSHbPMtjPjD3FZOaZYL9BhSrHPD2FLC2CnP+ID j9CKvsO1AwNwUbDRRsJAKxHxO3EbZ1PjY0AQJ2BVg5 KF6lTSNKNg9+QGpjfLNerZywNEOAFjE1WBIfXIkhNYOOGh2C ID Date Data Source [id number] 01/16/2020 01:09:59 AM EDT [facility] Name Value Range Interpretation Code Description Data Corrie rce(s) Supporting Document(s) ED Provider Note [facility] ZHXQBl3iSnCTBvRd92/YOOqyVXRwj6WfVGzwTOy9XMtxOTLaX9KrAGN4dD8eKOW9PCvFJyKbCyTnJMTg lbm [file] k83oVMnG56aG7ilZaPy55zbk9bX07Sq7IbXU2RGbhdyzjm9rrc6NrsF1qd/23j52F95XyGgpbuFK+Instructional Services Specialist [file] KQXINbiGBrFLQRh8XukqZsyJBENQTyPKpoXTRZriTb wTubYm7dWVXnDH2hNe3vNNTcHVY0QeU9YLUMUW3DGJSwZVNqrGClSBM4BLAvFwJiTIyxZMWoZiQ6TC41 xEdzRZ5PLMDpXBVzCS93BMYeGURmXr2UUJFaKBQrqhZ7CCUuQHZVCpLtC14cdYJbYaAuBLTTSNp+Pg0K DW5fx0YvJBz0YlOxTL4jwp5IFZuVNgXpZ1AnhTvbIN YHFT5yjZXuWAT8KKyqbHQjRTQtvAYtn7hrtgqgPd9aIOZtMN1tFj6zQWXwKPC5PrF0ZZEEDH3OZOTvLE CpxJEgVZZ5XUYaXtKpPUgsBUVaTTT7DR62dRjbFH2TKFXmSTAcGE85SEZbHIFwRo1XJSEuHLHdgqW9SS AwIFINCj4+FDdeghOxOfjKItGoFFWwp3MsCGm6SS7H JIXgMDclFV8ZLGIxhW9xONkmYG5AYnU9TSDfWTKYWgQbJ58lyYDjJOu3N3TjUqPpMCIsOpisQSEhOGum TmFtZXMgWyBdDQogID4+ID4+KVxpDY0JYNpgdnXiTWExCj1JUFQlYMXlAI9hXMSzDULlC7H3cXzsEOFS DbZmJ1njtdttYC1jPNUxS251cBiaclHrXJXoUCKwBe 2YPLEsHLB1BLFwaINyPOEfBQSWETweBL1IbZUeSKZ3cZ2eYLxxBQPzSVFiN5dGOzAmsOciUZ45dNyhfu VsbCBdDQo+Ui2FPI4xp6QyQFq8caSbYDedLIT5LIhgMEJjNKFuTCBqOWJ0JUZ7GXEVOeBtVJFwFHXnHO asGKFcDOUqiz3UZVQrBET8ASd1SBUtLIUeWSMuSCnm RPGxEVmpFqMwTUMsSNHrUS5CPiTjSSFsCZTrISwpJOUoHKTytt5LQWCiMCRuHcW2HzVdXKEoPQDeAAqu AZLtYMVsDtOjNDGjURGzJL0YFoDdNQHpZLX3UjOuBGHjTSYzwu7DXYZoJRDzKaYiQcEcVJFoUWAwSEge ZBFrKRU3CQOwAWVwBHKhMH0MHuIkMXScQQddBQKgPT OcYAOylr4GUHRgMJMaFjW9EfSsMIGmAEYoJDeyGQIwVWEuWWH2FDUwUVWrIP7PDzJuVXVgSMT7ARqrDO NaEZMsuj1WXOGjEPGhLAiuVZDxIIDcMSVsXCmdEPAxGOM9GhCqFCDhZYSvKI8KOzLfLXFnZKd1DexcXA YwRGXulj8FYGXhUGKqKDzkYBBwVXPoIXVqCZffFIMj LYMoNLJ5EGIiIKKsPJ2ISvYtJVElEePfZQAfTUAgIMEzet0UTIAqTFIrWhV6JnLwKTHpHWSaRAlmQASw NIY6VZWoFUPaUWYmQL5DSvKnEKLzCvVkOJihNMOoUNIkxk0CFAXxHEAwBTw3DsZiRLWmCLPuTCgpRALp ACD2VSs6UNSzRQXiNY5JCsHzBQVyBhw7EWbnPCBqEP Xbww5AUUJnKBUrVXV3XFCaOUEiPCMfUMioZHGsZGMjPwU2UXNfGEDxUA1MAqWeRPSsDCI9YtKvESAnPL Qoxu6YZIKqJIC8IbE5FEWuXAFhFNXxAVwqHIIlRGHnJHZ9SFBzETXkXU3DYtQrVAZjIXO1IovlNGDaKV Tkii6HAWPfOIC7DEAfMKIvAWCtSOHsEUhdLLJhCTY9 MAH9DMEjGIPxXM4QRgYvQKZeGZS1TcXlQLChIOBhju4DDOGbJGI7KFs3SETdYECfMRCoEElmTEBrVMZ3 TIC7RATbHWNqER9ASaMzJFLiIuZ8LsRmXLWzGOFfhp3JPYVoEKT9IbA2IjOnWFCsAVZlEFhyMKBuNWF1 LCnqACVgDKIfGO7ZDcKlVIFpMwniKfSiNZZtOSTafa 6MTUKvQUA9NkH2XASdNXPvXICkHWadUWBrRVL0VUY2MUKuRNDdPA5DVpBbKBFtLglaDKNxBDFhGFKlta 8BMHDsGVA4QSK3JnAyRKMfKKNqQHduCYNvPAh8BBY9GAQbJVItDC5RCwHhABYdPLXnAaPeYHXvAZDmef 5TIZTgEYJ3MRX4JqEnRYVfHJLtLIiaBAVhSWcbYthw STOcPIQrYE9TEmQnZFAgDTN6HxwjFAXlMXYesc6DSBFgYUG3BDM1OHYvAZXzKKJoKExfSSVyITdrPfvc LAYkAYGxRY4AEqEqEZXxORN7FkKaFKZlMTEmwv9PAUIrSPH5VoOlYxZfQYJeWLJaHKtjTXOwUOkbJxQ4 YFEbWFYcGJ1OVoPjQPSeQTF6XLyzCEMjYAMfay5FUM XdFGM5UiT3TDVxJQYqUPPbCSykSJKzYIdnMcX0GGByJCFdWY6DAiUqEXKbETW7RWIjSAUxEXVvza4BEP BmDFI5YDCaUKUeEBYjXEAyEKutWHXxRIr9SwM4KPDjFVRsEX8JRmXeENXgYJU1WNNtAWPaKRJqbl8AZM TrZZK1HYM0GGYxALYxXNPkNTyyHPZiDOb5GLW0RBLw DNQpRX1FDhUoCKsqGZRQPae0GZunN4y9HFR9UI1YW8Hbm4AfBlPtFGSLNLuqFG3fqxIlPFVnQs6UQ8yE OkynZmA1WRWkSZs1IFK1OSyvH2LiY5L9BFy0F6P5AwZzUV4bBPYhJDI5IcJaNfR1IaP0PWPjFPZiLeo9 DMEkPld6PdY8WhXkER5NTp0DMzC1CNQ0wBPgVy4XVHXpDmMKNyRgMT1NHZf= ID Date Data Source [id number] 01/14/2020 08:03:12 PM EDT [facility] Name Value Range Interpretation Code Description Data Corrie rce(s) Supporting Document(s) Discharge Summary [facility] DNZQHc2oMxWBDgDx68/QYCguXMKfp7BzPAtnGLq9SEfhXKUgU4ChVHA8wQ5pHUZ6ZQaSXmUpCbLsGDL6 lbm [file] JhdXrRzRRzEBz7Di/psychotherapist counselor/NhpLOt+KDE942KZZapnYl [file] ICAgICAgICAgICAgICAgICAgICAgICAgICAgICAgICAgICAgICAgICAgICAgICAgICAgICAgICAgICAg ICAgICAgICAgICAgICAgICAgICAgICAgICANCiAgICAgICAgICAgICAgICAgICAgICAgICAgICAgICAg ICAgICAgICAgICAgICAgICAgICAgICAgICAgICAgIC AgICAgICAgICAgICAgICAgICAgICAgICAgICAgICAgICAgICANCiAgICAgICAgICAgICAgICAgICAgIC AgICAgICAgICAgICAgICAgICAgICAgICAgICAgICAgICAgICAgICAgICAgICAgICAgICAgICAgICAgIC AgICAgICAgICAgICAgICAgICANCiAgICAgICAgICAg ICAgICAgICAgICAgICAgICAgICAgICAgICAgICAgICAgICAgICAgICAgICAgICAgICAgICAgICAgICAg ICAgICAgICAgICAgICAgICAgICAgICAgICAgICANCiAgICAgICAgICAgICAgICAgICAgICAgICAgICAg ICAgICAgICAgICAgICAgICAgICAgICAgICAgICAgIC AgICAgICAgICAgICAgICAgICAgICAgICAgICAgICAgICAgICAgICANCiAgICAgICAgICAgICAgICAgIC AgICAgICAgICAgICAgICAgICAgICAgICAgICAgICAgICAgICAgICAgICAgICAgICAgICAgICAgICAgIC AgICAgICAgICAgICAgICAgICAgICANCiAgICAgICAg ICAgICAgICAgICAgICAgICAgICAgICAgICAgICAgICAgICAgICAgICAgICAgICAgICAgICAgICAgICAg ICAgICAgICAgICAgICAgICAgICAgICAgICAgICAgICANCiAgICAgICAgICAgICAgICAgICAgICAgICAg ICAgICAgICAgICAgICAgICAgICAgICAgICAgICAgIC AgICAgICAgICAgICAgICAgICAgICAgICAgICAgICAgICAgICAgICAgICANCiAgICAgICAgICAgICAgIC AgICAgICAgICAgICAgICAgICAgICAgICAgICAgICAgICAgICAgICAgICAgICAgICAgICAgICAgICAgIC AgICAgICAgICAgICAgICAgICAgICAgICANCiAgICAg ICAgICAgICAgICAgICAgICAgICAgICAgICAgICAgICAgICAgICAgICAgICAgICAgICAgICAgICAgICAg ICAgICAgICAgICAgICAgICAgICAgICAgICAgICAgICAgICANCjw/iJGmP4korAHwleY5U7uiGf5JKm9S SF1yj0SvTHViJCjrbnTrHhiSZdIxRZMmZsrGXuk2SP mfQY1MwXZxP2RnS6OeRJpqOK1IHPJwWLBrzLUpLUWzVSMzLbT8RVUyUUvwAH4TcLPiHLugNZMkWRMjDf VvCGPhSQNyQPYtEXHcKWMQSKElPBDpXfFjDJnmVN9Uf6XnsMV8XJf+Co6YAZ8nt7OuNPijSWIwHZ9ikr 2QBWpLImUkQ5SbwcM9IPWrHGXzHt1GPUGxAXTfqLDg ODHrWUGCGbWbL5UjqK66MDPYBo9+HMmnvwMsZyvNAaCgGNEdk6LiTKd6BQ6NCJZlGHj9kOPgVVmiI0ug ekaiAKR1jW9nsuzsGyxfCkekNFCMg2gmZqbcKVOtUYEkOX3aLF9yMTLeOBM6EwFoIGCBKJ4PTIJoRCCg xJTnLIToWXLEQJ4FUUxdVWG7NEXjneKsiBEtXPveUT 9QYXJlbnQgMzAgMCBSDQo+Lg0ORY9hn2OhUZyiKnLuGY3sej9TMXcADfVmP2M6yZJsO5L6JHlrYr4KNI BiBRUnWiexEHQSOEkmEK5ATL5qppH1KK4BcLRaVSWpRULgmYPrSUg4D90inCUmBZucFU8PDWE+Sadie+Pg 5UUTBaVBUhURSbMcIbWDLEVdYeG7LeF5CSn9LkF4Bk HV99nCbhsfRwINzrYF1DSQ3iMESgQUYERH2SkEMxmW5hkpCnWZSuAKZUAoJbT90rlFMiDYDvYJI0BKOh Ki9MQPGnL4IdscNzaRrdziJcWBLqVDRDJJ4SRMzciyGngLSkfWcsZL53bBhaJL3CYi7ACdIzRG1kut7T wQBhHd6KJJSxEc1DBQTqUSOhARAcMZT6JROfKpZgJA wgJNYnLDXxGGQ5XOJnHDIgCM3COlRqKFPvKdZ7SeAyQMUxVCIscb5NFSAiEFFsOaC1QPKzLRLmWFHiSP goAZHoKQWrDPD2EKFkFCMyLG5OOtFgFJKvKZV0IHLkUOLpSSAosb9LHXJcZKKzRGT8DGEzHQQaWKCtYD lqUYQjPUV2TeZhWEEeSHGxGD2NMiBqGHRuDBl1OlYs JYLeBXPdvc1IQPHwTQNlCVU2WkVtBQNuIKJvPCbxTSWpPFWvXCu2EMOjYLGmGP9FBiTsFFUvIHC7SbJe KGYzAVPrgq9FLBQbVVRxJXI0NYMtSFSeNXFhSZmgZSAqDYV6FQowTPItSSOuYG2VJjFyHHRuBVRpZHTx CHEkYLEhdo0LMBHeIQXoNuT4CwKiWOOdBQKaLCogMZ AeLIO1LWZfCLYeBLYtUS4LMbSjVNYbHUJ9KxBrLKVcKZKpqo6QYPLjJYLfWwB6PYBuXAHjGLCwJJlzSE DtMTH1AOc0BDLkZJWeZM2FVvCzRZQqJPjfOrKcEPQcDMRbfk0TIWWoVURrHVZkENLkJOJkOYCiWFloVG OgNQJ5MyJbYWFnIZRhAQ4BHgTjITScFUg4XQCqADQa DMByye9GBGGhJTElVKbsDPCmJYNaTWJbLIjyYJLeQBCeVEB3XLLlQVJyFY8NOnSlQELqXjIuXeheRXXq UFFlpq2YCSZeJQTiRNW9XvCdZHHlMDAgWGtgKUNxJTCuMgSlPESpUIWnSN6GHvOkWZWaByGhAmahPDJs LSMvwa6EREOyBRPzHkR4LyNbYJTyRPFmANfeUFNjOV EkFtV8DSPgYYYqSO6BWeMrOEYjWfF9RJJyBFUtNAEzht9UoRWbdCleht1LSBqWKc0LrUeyMVUcGQqkVz 9hhUXkKmBkXJWFBw6XycOvCVHgUPWAOBmkTZZaPPadYfJ7OBLuLtF9UXYzArV0KIP2UBMsN8H2UhUhFm N0RrG2TKLxBgGoLjYxCBB8M3DpXWIvFxF1NJK1ToWy NOX3Ymb+HD8aIFp+Ve6Tv4UoxqG0tkFqJDdxTMT6Au7ZTLCWT4ZPXp== ID Date Data Source [id number] 01/14/2020 04:27:39 AM EDT [facility] Name Value Range Interpretation Code Description Data Corrie rce(s) Supporting Document(s) Leukocytes [#/volume] in Blood by Automated count 5.4 10*3/uL 4-10 [facility] Erythrocytes [#/volume] in Blood by Automated count 4.39 10*6/uL 4.1- 5.3 [facility] Hemoglobin [Mass/volume] in Blood 12.1 g/dL 11.5-15.5 [facility] Hematocrit [Volume Fraction] of Blood by Automated count 37.4 % 3 6-45 [facility] Erythrocyte mean corpuscular volume [Entitic volume] by Auto mated count 85.2 fL 80-96 [facility] Erythrocyte mean corpuscular hemoglobin [Entitic mass] by Automated count 27.5 pg 27-33 [facility] Erythrocyte mean corpuscular hemoglobin concentration [Mass/volume] by Automated count 32.3 g/dL 32.0-[facility]0 [facility] [Ratio] by Automated count 14.9 % 11.5-14.5 [facility] Platelets [#/volume] in Blood by Automated count 180 10*3/uL 150-400 [facility] Differential cell count method - Blood [facility] Neutrophils/100 leukocytes in Blood by Automated count 58 % [facility] Lymphocytes/100 leukocytes in Blood by Automated count 31 % [facility] Monocytes/100 leukocytes in Blood by Automated count 8 % [facility] Eosinophils/100 leukocytes in Blood by Automated count 2 % [facility] Basophils/100 leukocytes in Blood by Automated count 1 % [facility] Neutrophils [#/volume] in Blood by Automated count 3.19 10*3/uL 1.8-7 .0 [facility] Lymphocytes [#/volume] in Blood by Automated count 1.66 10*3/uL 1.2-4 .0 [facility] Monocytes [#/volume] in Blood by Automated count 0.44 10*3/uL 0-0.8 [facility] Eosinophils [#/volume] in Blood by Automated count 0.13 10*3/uL 0-0.5 [facility] Basophils [#/volume] in Blood by Automated count 0.03 10*3/uL 0-0.2 [facility] Nucleated erythrocytes/100 leukocytes [Ratio] in Blood by Automated count 0 /100{WBCs} 0-0 [facility] ID Date Data Source [id number] 01/14/2020 04:47:09 AM EDT [facility] Name Value Range Interpretation Code Description Data Corrie rce(s) Supporting Document(s) Bicarbonate [Moles/volume] in Serum 22 mmol/L 22-29 [facility] Chloride [Moles/volume] in Serum or Plasma 105 mmol/L 98-107 [facility] Creatinine [Mass/volume] in Serum or Plasma 0.59 mg/dL 0.50-0.90 [facility] Glucose [Mass/volume] in Serum or Plasma 90 mg/dL 70-140 [facility] Potassium [Moles/volume] in Serum or Plasma 3.7 mmol/L 3.4-5.1 [facility] Sodium [Moles/volume] in Serum or Plasma 138 mmol/L 136-145 [facility] Urea nitrogen [Mass/volume] in Serum or Plasma 5 mg/dL 6-20 L [facility] Anion gap 3 in Serum or Plasma 11 mmol/L 8-15 [facility] Osmolality of Serum or Plasma by calculation 283 mosm/kg 275-300 [facility] Creatinine/Urea nitrogen [Mass Ratio] in Serum or Plasma 8 [facility] Calcium [Mass/volume] in Serum or Plasma 8.3 mg/dL 8.6-10.0 L [facility] Glomerular filtration rate/1.73 sq M pre dicted among non-blacks [Volume Rate/Area] in Serum or Plasma by Creatinine-based formula (MDRD) >6 0 [facility] Glomerular filtration rate/1.73 sq M pre dicted among blacks [Volume Rate/Area] in Serum or Plasma by Creatinine-based formula (MDRD) >60 [facility] ID Date Data Source [id number] 01/13/2020 09:34:16 AM EDT [facility] Name Value Range Interpretation Code Description Data Corrie rce(s) Supporting Document(s) [facility] CXBCMv7gAoTQLvAs58/EUXliBCCgk5XfBEetNFg2ZJhqKOHfY3SgUUF1vK7aLOU9JRvVNmMaYlOqJAY2 [place] [file] ICAgICAgICAgICAgICAgICAgICAgICAgICAgICAgIC AgICAgICAgICAgICAgICAgICAgICAgICAgICAgICAgICAgICAgICAgICAgICAgICAgICAgICAgICAgIC ViOQGjLW3NQLQeSCAjRTBjWRRtJNKqCSYmMYJiCZQpMYEtMQVzVONnDWHfXYIzPOOsDKAjQITkYMOnUT AgICAgICAgICAgICAgICAgICAgICAgICAgICAgICAg DOQqYJDyUJSoPDVwZWLlBL8AXERiGAZaFOEsQZGtIQLbGYNwDNOhBQAvQOPsKLLnWJGtAPHgASTnGPFo OSSyBBTwSCYaBTFyLLPzLSChENIuGMOmVIAhYRCgPBGgXEMsOAMbMNItQBRjQIQzGXDqLMJnVNRfZJ8U ICAgICAgICAgICAgICAgICAgICAgICAgICAgICAgIC AgICAgICAgICAgICAgICAgICAgICAgICAgICAgICAgICAgICAgICAgICAgICAgICAgICAgICAgICAgIC ZyMOHaZTWvZV2OMSCrNCVyEAMtGUMlTBJnWBKsDZXbZOFrJIYwRTTeVCCgIFVfINLyGRQnGVSzXQKmQB AgICAgICAgICAgICAgICAgICAgICAgICAgICAgICAg SSWaZVCaFDQoFDWcYHOkUFPcTT7GGAJvLLAwNRTfOMAcIAInNESoNWYqQZAiRFWaABTzGPOsIBOkIOYo ICAgICAgICAgICAgICAgICAgICAgICAgICAgICAgICAgICAgICAgICAgICAgICAgICAgICAgICAgICAg HD5JYVNaTOAqANSdQLUaXKBgNTPcAVYpOCCqZAMrKD AgICAgICAgICAgICAgICAgICAgICAgICAgICAgICAgICAgICAgICAgICAgICAgICAgICAgICAgICAgIC VySIKpMYRsMJKdHP3NKTOyVOHnQFQcGQLcJINsUDOvIONrKZEmVXKyOJFyJNQkIBOcZVRxPMCvUGIsMW AgICAgICAgICAgICAgICAgICAgICAgICAgICAgICAg UOIpPMCyOSBhLNNyVNRiIIRnLRPnVB0RJOXjDIIwMQNgZPGjIOVdPYDdXISwUTBzEFQuHOPuQTOgGUQg ICAgICAgICAgICAgICAgICAgICAgICAgICAgICAgICAgICAgICAgICAgICAgICAgICAgICAgICAgICAg IAVqNG1QEGRhXOCbBBGpTZOiISQfUTXzZLPgFPOwJK AgICAgICAgICAgICAgICAgICAgICAgICAgICAgICAgICAgICAgICAgICAgICAgICAgICAgICAgICAgIC YnHTQfJOTpMLCeOQSnIP5ZUY79mVRca1P4AWEdXQ1umgr/Nf4NBTlpzgEabXPsAM6TLnZcMP3wxo4NId CeME5vps0UPNhNLiIbQ9L7iSGaKZCsQNYGVsGxT71q HFusSo98WXsfJFWcNvCvJKn6Eu8QMfJyY5aqWOVsNdP6IAUkRqM6CDSwRpHwVVofVX6Mf2LzhBKsPNq+ Xw6SCP3ym4QwJXrxCySxIF3rmh3GQJzHWuLiX8UvejZ1YCJeSCVsSb8ZISWeTPWauNDfSxYuAWRQMxKr C7NifL28WFLJAm2+BAtfmvRxEjkZNiSaEGYsr8EtIC x4EO6OWLGuCNd8iFWpX05vb0GetUCbEesvAtNnuVQjgxfnBLIMWMDpyP3uzA3rWPLIrBFnuNGcERNvSM 4tYI6mCKVmCZK5KpSoOPDXGN9XNURzLVHnzRHsEWLtGCBTKX2JTLgnPTE2AOYwksMbvZCjYYbfNB7VJS JlbnQgMjIgMCBSDQo+Yl5BDV2xj5XyUTydOUYcZE7m fj9WWMoEYxBeB7X9fBSyO7E7CBvzHm1DNXXkGSEySfPsSLZRCScsTF8ELD2syfK9DQ5LwUZpNIOwJNTw nIRfJUq3D10ayCJeYKupKV7QVNB+Sadie+Im4ONRNjNWVsKUFsJwNvSJGVOlArK7FbT8WZv4CdY3QoQX25 yEdqzhZiYBwrVR0JYG8hSTSjRGJQAV5EiCFnpM6ztl WhOdOnTOMGDyKjI34fiCLmTRTvNRDjVTPvVv0XTQElS6AczePlkInbhpKoMQFnVQQRTZ1ORWermcZyxW WlcFrkSC95mHvzWE0VVo1GXhSpGM0nqu8IwEOmUd0FGSBbKK7SVPJtWRMfUVEqTDZ9DLNrJcBnNMldUV BfBDOsBEM3NKJlUKEzIO8YFcUwOVIdPHYeNpOvMMJl EMCeuo0ZTAJtBPDhEtE3ZxUiDGJjZPLoZIgvVDCwWRIwARL5LVFgAAUtBD2JQlWpLTFgQSW5SFGwJZMp WEZbnt6XKSXwREAqKov2WVAlJKYkYLQjPAmtJJKaQFI2ExI5AOOeDYLjQM4DCgGyGXShNWA2GsAsPFPm EBLasg9SZIRbXGWvBAd2NCJiGALtRJSeHZnhMHUuAS H0ZXj1BFAeUYPuGQ7YMmKmBBQbDDFyXohlGCQuYFLikc7IADQqMBMzHjPiCeYtIXYgTQLbXMhsMLLrDM Y8YUY0UCHsJCFcDA2CErQlGAZaSUx4PRdkKJGvSNFxas0ANLHvGAMgCXH0XxHnEDQhEWSwPGrbBEIjAP H0Mbq2CVTgDBVtRL5FZdNaOFLwNGe6DbNtITJaHNRl eb8ZURVlAESzFPzlQqZgTFLxZKVdGJmwIALsGPFfCFPfJDZaXSIkEQ5WTtBtVVNoOQJpKMMlCZCgPCNf aa9VPAEpRUUmRNq0GnPsLNYfAQDgMTosRDVgMZDpQJcuSAAoROIuVW5BRxWjMDGnKORsCtAmASLtREOm lk3YDUZiFGQwYiTjMwGqVEVwQNNhVSq9nkVbjHCwCO a7PV4CX4EgjxArWsVGCj4Rz360TNX7BYVnKz3HG5bdGp5bNVXuZQOOGf9OANr6OKesWHP0NJSfO9TlPL YgCCLdLVy3KYL4H3OcVhV0VGC+CUybA1LgHQD5HySfMvVnYjB4JYPkXTdwHns2ZUZ2WDY5Yq1sIDETCk 4+ULyyxMNeqSldMBFVPtChTjEsGYryAPVPRq8Y ID Date Data Source [id number] 01/13/2020 08:13:48 AM EDT [facility] Name Value Range Interpretation Code Description Data Corrie rce(s) Supporting Document(s) [facility] ANBQRz5oLjNDJyFkp7QmCjYdUZHxYW0bazx8G3M4mDFyD5RpsFSlp6hmU2RdI1BxTJWhDSHPZP4RjZTn jb2 [file] sj+LQAKS8TBCBdU+HgsSRUQ2IZPIqhJBxGUoZisHZG v8f3AF7GnytAiN2ES575q8F8H930CJhUUq/XZfMB5wjBnPZ77wAnlYmIcGpxcGT6ldCLqtAcQAJOgGBE 4060KNFaJcIkpCUTSipkOG0dqMCSWrah0IhxJn01S71sLk60Mb9JmaxNwjI3WGRmipX+lisXnVY+lr3O 1DJvX/2XeDpNjbb3A8iblV41RHQ2Pnk+xho8oJ74U9 c5TclHz++dglxic1b72gOEDyew+DggiappxIs5VJhuajzd7BvQsrkoBd/PNJe9jZuDQtGLH/gL1tm+fY N1ti/5kqWVeLNv4UsJjquqAo/LVb96+Nn4RFXgW0lHT+lTm0DO4ebEFL0J6ILrebF10QHfQFmVqFgjv2 t0ICojlRoawaOZWmenyowH0pAcM4d3pvyVZZOqIxOJ ouYIeUVHeczmsiEZ4iEomWRWOBZExbYvDLXpdKzsNnPDApDFWgKkYQ4AKnc2GeqLWm4SsQEJG4FbxYJU uXmugNRnRQqkVQHE1JYSHbLkSBSF5ERWAnMhKOMD1FVIJqDbjYLfem6F6aTbElzCrd2l2CmEyKBPSV4T rBtATRx21nErrLoT4K+oevBtAfmjgeHmx6SwViYzfN iJk7A/DWgbvmkRYuaFBdnWBgzUNpkUHln5jDuXZq+MJt+Nk+/QfZtibY2x2Dj1ZM+0vPFiXAtHCgI8SI yjXQp3Wo+qSk3Y0UDO+odrhwt5oGs6KLsVnO/bXJGNTVMb2ELZz+Af2AX/fGFUFO8rIWIiR0TGXrFYdq DIBclcucx4FZSmZUFGa1HogJiOnKaAzCEEhFMKiGF6 kYU5rn4OFQSbIQfKhW1UQpLpPBnQvZ250xf8MH8BnOPL6vOrR7GYhITT4cDKB/Hq1yNUo/IIJINkkEwS 9AeVj+SYZYUAIQOr38gfZVy6M4mN93vGpvX9nRpIPuD88cvsH3tVZZcaTRjvrsh9qY69vdfrCOHGQWKN cEDwQNJyRAMXnImz2kLDsW17AHlcofTUMQbUrdS3WB Y+skLikMXPsgOYUPXWdzCl7JU9XYP6ti3+0vwqPyeIV0NNQmEJ2yLVYsq4vqO0EvdXnrABtttT04yr8D OpNtfZH+U9gvgTX7sv9kw70lSCV0ovX4b1es5pWhM18TwcKD+kmzUhX8kPu7lZx8Cwn49qvkwC/2DlY1 gnGQp6lDb68XTZ0c/L/Cde44d0XKZqLQz+fn8lnuUx aG+yeRlPtf7Yzadha9WepKa6AVxjwdcO27dMUkVToNDrIo0lt/N07Ldg5GV4devjXFIgY6vrOZt+loqH jnpjU6LK8YAHXE9oTm9KNmSHsKu2chJxP0dnJ520QQFOpDwPhsSaXzD/SD+zjf8QiL0LNlyZI7plvmAd woYl5PAlh9ky+AgkTuIknaSTBEmQDJJBMkkmyLwuCi NNSgSTvdYBrRpCeFLbDCXbBIoJRGtM6tGBOgD7hDGRyO2fuFZdp9sK2lzqPiQwGF106oSi3JG6TPJzZB KjwDWS6bqNAOqEjIKCDYzD21WAdnbL0bI7HJsOVMp3cTwVC7wdpFL0bhpt31xureoTp8Si5tjyXbMpEQ R8G8yRBo7XcaHqjOElZtP5j+leS8PYBiz7YFq+ROf+ ROf+ROf+ROf+ROf+ROf+ROf+ROf+BZb7rdI/YlQkNNoq98YQvhhguILJokuTkdX+4iOQCImQKImSNJJG FaXB7wNT7u/71OscSwlBEiSDhDao/E8uDBTfqog0RX8rLTVwHHhXOHfCgDdJamzDnIS8irJLFxuAwQF2 wfDRQck6mpT3meLNFvc12ekwT3oxRQKSPkXG8pQR0q g0DNPZRbiKZ3WAaodCmfweTGUIClC2LPv/5Rza3E57ukm7536s305LrPdlrqZx1ba80xtnj139QDg3wA 1mw4HrL5cft/Zx1HFw6lIYKSlIcxrZhhiReViky5V+riu4bBcmcRVi73Y2stKLsSK111M39WZiogIuqN A748xS6kr5KqzItC8g8CX85d/gJ1Y+bzcTGo8MTDcI rw7Ki2VHET4l8qB6BfvFUywnSh6CqP6jmZ2atcTZZViIYHCZnn3gsG+Y7A8m+4PJ/hVbS8xmHyz3bOu+ cbJPnOwTJ/vAeN2jvw+c7BMn+0SuO1c+vk0uS8yjC4S4bFDCQ5vu0VhllRIEEI5y5AM9LgCYSdYnY4XJ 9WqLhmOjxyUfworNmsKyKUCAXojZXpt8kfbfkam80n MtvEe90bJagWfoX6g+aYclyvlz5tjLMjuDf/u7Lz+8pvKuy5q67o/e/gvo7V3m2q73y9/gO61ishcmDf cqgjben9lhuwcZu//Pu3/46Nd4vrD4EY/54BAOpgRELdFJPQtGl5y8/Oy797/52dq8+HYeI9p10soQO9 aF5/Pf/qfae8l86J+++/Tu0/u3X7//+iJD14088jtf Pvzu/uljJgq3y36u3tfy6u4hWe44743vtel/5jX3j28g0c/u3a9+Lpysw91c+NlvuytWhjtY3/Xhm99+ 9/bp3Ve//Ktd4p65+sO7v/HZ+yV8f/tpo4163+2nt4+//zY4r5p4a752x7/u4a5b6l2PE43+fPvwzS/e zycv52i//pevPnx6//Xbt9+8vbRfvv/Ftx/tw32CU9 F//fu/8Q1SJf/m22+++971oq732iWZz5/e/wjb711/vfvym28//mdge85P/+kfrhhe+bjyU2/vv/qvf+ Lxa8Uam+yff/n+x1mtqk88h755kS5Ss/7w3Ub3H0s0+wv+vgxouWC3G/0Vll7LrH/mn377/rtRV7065e 7AW0i81go97/zX96/yv/59+FIz9VgvQc4s/Xf3XR/r /Or9u6+/++slR9LaDqk//+nf//CXH3/4t7f/9n/efveHP/7x+7/85Yfv//gPb19//6c//GISl0Bg/Ovf v/35T2/z5zp+vn7m+WPbF8Pg1093qt65Dbk7Mc8/+OPP/8qvnUMOluuFf/ztwXz7OA/crl/+f4AqbZsF +Y/MRrbbQkcqti1a/JjEm45m+H1crSCNbk29Kpw647 ezPnh30y55/DRyv9cX66gAT69x3151wvBaG906+V7ZK578EQorG553LFdb/Rwl5cYe/uk6Hn+ayJe/4Y 8FwE1A7gMFwpx66D9++NN//OPbX77/jx8+u/5jCs2DGQbjQ/3415/ziYQj9pH0y/ibj29/+NN//PCX// Shdq1kcajf47znRvlv15/cfbN/+vjd27/9z9dv/8Of //QN282jlk+8zj0rBs/06ef/9On34K/7fIM4q5+fd8SozdOTSDmw5XI0yY7/3Rplc14rd8Rz/qrNfvOz jz/79Pb9//7hr/+52ZyHOn/14uflegkNJLu8vMt8/p+/qDWego5icqVWk7//8bMnPD/jX33/P3///V// 0I3rqiCQjbe+/vAT+Fjp45///NXLm1j84l77THiaC6 /+/DtahO6CE/udbQ7GX/z+f/zpD79//OUy1o521n31p+8+/Prbb95/+slfrDQi+Rd//S6G6vu6C/72q2 F9//JRVgm//fWv33/x2ulh7Prgp+///XQ0BOzxkflx12b/3327k7q///fhF0iv2uw8h2b721/+Qcbb+6 8/fGL30WNt+Tk14fUD5b9+8snt912EYDw158RT6/72 c7or34BubPr5VxSs/gpp0ZnwFnEfLDA1bgVieIbysyOnTrrLZAltMWAiVuc4BR6HvHRvTBYdD9S1NDQx xw2bLBQnJTAqdQLbItAaJJJCTY2PoIIyXV0YNHk5IERlYFUzYfItEUAbvlK3SLYmRKKoMUVmP8DzgeDv dCAyIDAgUj4+PQ2ng5MeHoChMVUpFye3OQ0PzGAlTR 4HzAVkoX0nsuIgC232jkHyGVTdEwpjc0GsRLdvNMILBW6KKPW6SKR6AIEgMt8+MM1nb9AjBmPuBPFvDx i2XH2AwNEis5VoXZ7US8AlEATgPNPDLEH4h8HtJHLmwqknpanzI1UbFEN1vX2sHNB7YNNzNUazVZJoBP gbKBL9WHDwCFkpDEFwELVfSGZtFPVeALx8cBTzPW7Q H9FcVAQySTMDKJFmmjJxPe0fYTMDDtWGNxmwZ9VKGFQaKgy4QXTcRXkxJ3C2AdssM8AwGZ9QP6QgLITp UZAJYVZpvgWyHQ8OhpPilN7nZYtWBPYNKSgKZZeyOjU8x02basWOMDEdDPNgJEskXCLxNSPsIBGxZNAr JYJlZKNkTNDpNH1KK6KsRPCnTJPWEFX0s5YwQMXhcu lqmteyZy8ogoOfWst+AflmLWDnn3ZuYAvgW5X1rSUeY9MoK7YfGQ0IbVEcQJemWROgPTWhBOMgJ529an QgMT4+EO8xn9TzDpceMAVDOFZyAXGmNVSgMOQ1OqXoWHWmZXBiWFZuNoL2ZoFkXyQMIJVkAEM4UGEjGJ DaYWFrWVGkGAznPBHzXYW6WvxwHLMzTFKpCE1xFgUr BENnYoCrMDGpMNEcVGHskgTHWKQmBXJtJJExAXY2ESOhMNFwJRchSRSjZNRgSMH2SLKfNAYyXO5jYbEg DLOwBINjVnveMRKwCQZwdmWVHBFwHAZmKFB3UjPnBNXdLNHkKFzmLDQxYPEjXyb1LJGcOMPsJE9lAeCh ZARwLJE5OVgkWJRrSFPhioQPLFDrFOArPSZcGrTlXY RlRFIzIHhfRXRoSGVnAjWsWNPxGHVoAY3cUjWbLNFpEUS7ODFbYKYbAFEvtsAFAWNeTEKrJRr8BVEvTB LlZGFpEQjqFQBvFANsYWU3RZKjAQZjNZ0qOwFfWAAoRLBzNWMzKIXdQHWwnpNWRLFbCBLkFJE9SSNuDN SpLLXmDAheXWMwPRHqDbx3ZWIsQKKtLE2uStOgHKKr URL2DVArANHxVEKifhQRJBWxJTN4DJO0DQSxCBCnLBZuMNveESGzPPPhPaU8YEImKTYcIC0qCyYpXZBu DAA7BlBlETAzIXCzhgKVHWDrKPUtPVB0TmJzRYNcDOCcRZgpDCAzHTAqHRZtUGJ3CFU0PVPxYpFqOKun MIUOKXhYR1HarfIrEpYKB6vlSu3lSsRsHYQWE7Vyr5 QgNSAwIFIKCj4+NeU5LDJ9rLOzWjm8ZXY5MFhlHCXDIt== ID Date Data Source [id number] 01/13/2020 08:13:27 AM EDT [facility] Name Value Range Interpretation Code Description Data Corrie rce(s) Supporting Document(s) [facility] ORPCBj8rPlLWOmBdn0WqGkUwNAIaNU4zvdu2E9D1kCDhX2JlpANgo4wxQ2EhA7XrUYYgCBYKOY9YoIYe jb2 [file] rF+nN1MUu59bZcoYr78/LrSDEZAzR5wNw4xmmmbn01lheU/p4CmZ/m4FfkNF5/Anca/j+xtHgqTOOCX/j o+do8jc++v5of+Mj6TAqT7TVBi2vYygMcu/65OQor9 tVYp529z23i9wOV1u7+jAneRo0t3/lFH3pxDrUmeFLFEXxg8Ui+5C3Rx2L2RffU0WW62V1JozLM8x4pX 80+LXvFs1gqs40e4FKv0O166WF30lq67jjl2jzQ5V30mDhbbKN5WC1+CusX+zAv87qr0kP3chlSP8KC7 cf6Ax34jduEvu5a7LkdV94qRzYP03kiW/qgJkd4pZV o1k6c05FNO4c3h1cofea6vPXtyE6oiVA5IiwaO/+qM12bbppD70EwV4AJ2ksVPnEsdduxK77f6ps/SPr d7/M+kR67B+gjpo07d6Gc85eSUgW2xl9+xqE72rW548Q69+F1B3VRHCwl86GEORy0Eh4Znk3jkwWzr0M mBu5d8gpx8r6baq/ZLKQvvD+Vu36jiYE/personnel assistant/2hI77 ec2B/T71gJYsL6ll1R81Ym2E/agL6xP/s5RvnQS0ox/jhszHl9SRsB4M9Bz+8b+6EadFBMjgxu9SmAqf MhF9mDK85Xng55XSwlevsDQcwp1HQST59lbbs+hnpH9A7GJv7dDxEY6N+Xe9n3sQ96joyki9gNN7t3qB yZV704b0+xePPEMlmZ2IkI8YPNDuEN2sv/In2i/Qvt X3h/4/7lW5funRN6Wk6l/fINc/hnh3/G+pU5fl/W18g0I1P7dIK/0PzGC+iscq3QWuA+94/OEdunf/pG OvzzhH+eDenoz/Ou59i8+6985a3a/SWaZVs61wss/1PkZEiiF2JuFp6hhx/NifT7/YZh/crmXc+xCX2x fmUL/mrd/A9dLdwdKwx+Wgkcjwx6p09RshA3xYD6TL d9w2J/6DATGdsbh7S7p46W98/8a1i/NkWqM6165ttmW5M47bNV/bFlf7FnS0eq/Xlj/X0V667uwZc+FW N/33jQNvTdjnTH+/ZKm5GvegQX9utM5o/d241/wn9mtbn3kTh5n/mWtB484Crb1/B4WI2iALH1swSY+l 7w5Uc7jCrH5Zp+8P1h6jD2e1hwaH60uyg+tJzPhv4u U5kseckLhkwdri283XDT5nafxTxFrKHgR2Iq6k+/wp9o3D42VDVl/6WLWrY3d0h8IA4i+RsfRexzjsBO n8RYx8b9S5J5Q4r70fsu+Yjyv/PWHduxI72/5cdvJCc+RgPEEki410XuRAd4+6PPs+RrVms0KS4R666q H24b7K7/8Dm/OIK36ONZy0tqw3/mnbkCDUfS9tHe86 n0y68c/KfNf1pg12AQpnNs+isf1z/48DhcQNlfF9IC5xpBJwy8/dnHPb/g+V8UrbWhpP9YToK+98t8XP 4fFaQ58mwWk24CxVB90lgAZo+92vEYyuc02HCayLYcmV1u/+mlTKknT6Ruc4Whcg016H7QIbGY/L4GfQ 146xwig165EryZjLlL07/cTP1i6j/356qzY7zcG5ro [file] /6xZrNzFoVbK976ZRl5Pfs7GItRCsks2EW8/P0W 9lVeX/ZGC/sq+qzm2bkTwCWkUXBSdUkS0Q31+WtLqtNJSb4m9526kbMxxCxzz7/DSl34vGUWjnNeyG5R Cx40i43xE7JU8Ho9D9hK8cFt0FO3K+JlLD6MeTwAkM06nJi+Qd+m53K87O76j31EJ4Uu9J/tQIm383Zw O1bpZ/mD+9qTypvqZAwAKfDYnSTCD7e0c33Fz5My3B ivJsarifFqTugdeoxXE+PVLP+cGo3hNx9x2rfPixDg+fbmNR/bHP+jnL+KdEc+RCc8b0C+Mw7Cohbe+7 q2tL7OF5mAVbkF/Qxs5Vg8MyRQwTz9fO8xfd2q6Fl9iW0J2/lW72vuqTrM8+v/HvbVSUM/oB/QT+gn9I 74Zf2m8Ki/2LE6t8+cIFbDPz6oymoy4NgY15Zq8Oip O/QGfdnP/Ey0qL2D+jb3mO9vqU9KejBbDa3y19I+OgfhTrnicy8oz2TJsiLiwL/Qd+gNeoO+7KsO+6rD yqoevNhaSgfRsoZqJmudu48mkC418EkJhl4+83Dpj5U05FXRB6ituMubPC0XnTDh4vo/0tpqXRzbCI5B eXP+kjn0Zf86gm4lnfZv8Q/5mamY5itfxd8lr42cQU m648vXB+hrPbTH/WEJhzjwGnJY7y4q91qSW6vXVUq2+Hi71e5X1k9c1a4DWohxinFP+MoNxFm2tN60Zy dxHgk0bi/urY8dArfN27K+sBbu26yNt80B6Y1sDjr6Bp63DysDa0r6j/mrqE8r/7cb+q/h+0eMS7PK4J u1h5i/zxVRkrCs6Sa7J/qaj+1W88/aqk51z7Czu9+8 f69Q713RF4P7ip/3QtMPaFEt0ePfHU/50fEe5AvdV/HbM2ZHQo78LFs39VgHD/qlo44wE+Ud6L+Yv+ox xbD0MTx/v4+DvBx3j/Stj3xu+4nQTHc67Q4P38i1WuFBtus/NDP/6i3c9a1h++y2Ko15ld0moXpa5W+F r2ERhSpZd+wzILnWs4+ApE+5R5XpR1M33l4/aJ//eO 3xr2oMDc1lGFC1K4/yzBi06uu72Xdmb//KTzA5b7Zib/sub+TvNb/KpmRum5Y/jg1mnP4rmX21N2cfY5 WsD+7zHuebevkL+7RH0+7t0rTysX55c85Nz5Mh7/hXt239MiV4DZ289Sl7Yr+xy0T07Jg8Ar1RV8Bf7W /oJ/QOvUO/oF+Pfh/qqPSuB9/jXo0Fog3kL+gb9A36 Uz8S8vB20Qz2T/oJ/YTeoXfo6/zbKkzfQwG1DcJORh2JU/W4mQiZle4t+uY6m31Ee994nZxytMMOimV/ oZ/QO/QO/eF2gl5yZy9v2JK1FDObuky/vdFD3lyxGRf8PmwdYqEzb6U5/oqi1H6ldF3S6u5K37qyO/qy msb0jmD+PngO4srudRf+aMUPwlrYj3IeSa2guaZ3Bx fX/KRh/5Vh/5Vh/5Vh/5Vh/1J8iebBz0HD21icbmVTX2Ok/eS8jPnpfS1oM+kN9eBg78ION/Qd+rI3rO G7acaiey/w5A72rV8FBrZnNnlfnKzhO4tj0t/Dlh9Zgn0Zb5Os/yOXZda3rlPkxoH6xaBydypdimJP5x FMoiJWkH9d6uScbuTDaM9iYEZ0kJeifw1iF+gVeoW+ QV/r+zY69Pi+A+RlRT5VxCxPQ/Y3P32pbYgkER7GySI+Kq6ZZU/dKTuEYp7bo1O5M8h12E3x8Uediy55 y/+1Fi3fBVHqmM/IZ0Bf+4Ga8aiMxroCroug0r1hEpzkGze943E+avsmFvNXmRboBdfXerfF/SH536w+ p8thqiunt4pi65zK0jH9kl+odb2cEZ97Yx/eS3Wy5I +L+yiNtxzafkl3xy1RH8h6cHo7ywFwQMyrq/0qtmq/ym3703H/0erQG/QGffkLtmr+7CtPw6Fr8H24/r 9cJ254gd5wE7505LK40Yhvass3dQd0NpnIek77o3WgEc6P/rp5cY2ncgy1+NakJc5iLJD/x1Xr+yPmr3 LsHgM3WNne1riVU3p+uiIfkWe/3JDtL+r2Ak955fPF j+tv/2juNjNk+8wZ5Twxv4UiKIT2rlAaH+m/ZQFIsmy1798jrHu8n4w7T/ceyKq2JjQydk0p0HT7aS/1 cePuDvhQ1pM0gxRfnguqMeD6+1z99ifMr75wHy649yb82MV7sh3qVKjfYuxzV/2MG0Or/w6t/Gha4Tyd M2BPg0Z+a5JUlivz+2rZzyPWB/R9ll8catNr+3m08h dGK/9oNIFeoFfoFfoGfYO+Q9+hN+gN+pD5iG8MD2T53G15UZ15Q4Ipi09pkmjZira4Hf1Nq3O35Xw5Mf uCvFZr5ZW/4vBSTtl54HH0g49Ff5Csv3UweNJxmFEdnGXdjJMGaM3Yn/EjWmhIdQ1w1cpWClv/aBjGK8 G2HFhxHHD2bClYDvN3NaAU+uDA+uDA+uDA+uCI+aso yyj/aAyUF/NXA/NXA/NXA/lMeCbKCL59+h+FIiVYwVKgU19rwb/08sYGJhqb4tqH0b/GqP/vmOUfjXlB X/OTY9Z+wjHLPxpToa/9SGPW/pwxO/QdeoPeoB/QD+Q/3geLbpT2Je2X+tp/Jimmy+JAMES+JAMES+JAMES+OFyh [file] v/a267lV214+/k1Fe10488c9367+4rmuL2g76rwxfnb+w6/lkrtn14heo3+++/jV1+/fPrz/+YBz2661 58icMWr8Rk2lX6h9u1xRbAS2bK++/u7bt4/ 549+YJq069K0wsr+H72i/asu92In/fPnz3q/dvr2e/gyWeG63aWoj1qn+kce3Xvg+++Pj2i9+9NB++em ne/+d/+j+//Y7wa6wWh/7mVZLXhV/8008v2+G57sv+yy/ff/32xTe//s27D++/hMlfA4926T2G9sy/+H bZZ//Xu68/uw+Iv7L9/NK3X3/5K48p6lXX/v4/yPE2 Ge4cv/7m7duv/unrr/5sZpNhc0y81oarav7n6//L2alGbxg00m/92x/+8uMP//r2X//X22//8Mc/fv+X v/zw/R///u3L7//0hx/++PYv/0n8X/7u7c9/els/V//5/s7+ubTPVd/e/fpvvsk+sOTqcl8149//yscu l0VdntT//qT0c2tlZraap/8z7QnTS4Y3w/UPE+gmba s98zktmsbXiU2S4ONg0a12XOBaOS/9xjeBa49/sp9LaFVt8UDAo/unGJX1zS1+2vuno39B/PbVLz68++ VXv/1haK0Fx2hUk4VpziLlpn5w9/n1asG/+H3z6jRvRiPE4xCTpAM/+8Of/o0g5i6e/b//8En2r3/oW0 TUuS/68a8/zf1gr/f/ae4H/M2Htz/86d9/+Mv/+Ju3 j+xPfX6a/N19JejDI0R/2D9/+PbtX//7693/8Oc//TT7HY/gK6oZWl/2zx9//e5ml46lfB9tjHQOv8/7 kE9y3y+5k0SqZ0s82NEboTsgr3RngNDwnfPPfeRHa79+vn3/P3/36670vcjt78Ez30/r3G7v6XA9Rx/9 X3/5l7/7ydXnO/zjDz9+/3cGhqO2TY/i+//+++//+o fv//ZLDF5mH//KY3Msna62+c8/vf7kiaEk5dvgj8//3Iwd+qV6i4Znga/+8Pv/509/+P3r+Z/fudd37K JN7hGX/qSiH08rOk//9v1X//d3H95/+2tQ8GsDDnI2d/71+68/fvs5u/n9O/z/v+N3pbZg8vB2x+//2w 2r3qgob1a2zV4rltzkEXx4i/8aEV7/9qtfuju8/r29 qhtt4id80gYT6p10/bVB1pgyQ5w+4SgkcHOf112oZ3o8jKtcQR+5/43ZnItrBwWbMDH3xdKpxQbfhcWw VhzMWIfhUAXsFuf0NX5ToAQkWOAiG8A1WZWjuc9hPUWkRGTexUKbKoLlLBVKSX2FlHAvIM2SDJd0MOFo DPImAlHqNMHpfnG3AQXtZNTsOORcQ5QqlePkdXTuNM AgUj4+XW6sh8WoUyRwGDHwRxa7PF1XoTLlFY2YaJSwdA6uwbRgS391eyLzUUCuIuewx3PbCBdsPNSSFL 3ZRWD9RGZ4ECZtJn0+BK6hn5NpZtZrDDOjUjd1AY2HjFLtc8XpYI7OY4AmKZIxQFUPBNU7m5RpCFLxpn zrdctzL9ShYVX3nO2lZGW9RRYgWDgiLWIiHUtuIBK1 TUQfGQkpRZJfQJUpHQIuKJQgDBl9uLVvLT0LT0SbXYQaDZADQRAllqVdYu6nRJLJTdNVMftzE5IYXSYq Dbl5EXHfFWibE4Z3JyseX1ZjSB9WY8LyZTBvHWPXEYXmbdKiZJ8KsuLlqC7aEJyAFCDAQHyXZXaaAjX8 o43odsOWFPTtXJEuSOdkVHLmVJKlIRUeXXEeBDAhZO IpKFUmIV2MS9DbVMDcCQNHFPH5x8SsUWBrizirpuiaEv0zfhPhHfh+IhkeIBSta6EoHPneI7C1wINtE0 ReN6PgXN2HmIFpDMnrSAPwCHVrUOIyX696abDsVY4+KK2yp9YhBbexAJHOBOHgSEChLDJgIAE8IyCfGN SvTDVzPXYnYjB1LjNwYyNOAHQmCBJ1WeT7PsUzEFDv OQRbBJyeQSGdFSU8WWEtSKCfVNPlYJ0bVbItUPScEkW8QZYhSVPvOMZfpiSURDUpYNVbMQGuQLB0LCRa VJFyTJfqNFJiJTOmHLS8WJBcYKHaKD1mMrCbYEYfIDDeRiocDEJxTHXagvMCXMFdVSSgXNB3LkFtNGBt ZVAmXFvvQVBhNUUoRci5AEDlUUKlVV2oYgUvLNLlQT W3IZjgWCYmBWDikmIKXVVeNGXyUJMqPkVeWBPiPPGjFVwbKJQuWXZtBeAcBAMvHTQqGP1bYeBaQWNsSL B1NOKvOOZuVRSxiyDMIWWbMJIsJNy6HKRlWKGpPJXuPYrhWQEoKOIaCEI4CCScHSJzQN7vCnZfYPNkGG UfRBLlFISmDBGtqgSYUNGjNPWjMDW5LQTeKERmBXTw NNijCLQmXXVuFij5TFJeXWFhNP9aBqPcMZSiFNZ4YZCiOGDmBEUupkLSTRGgGVM2YpxkBeVuCUBwYCTy VHhtXNQnGDPcSjY6BABgYNUzIQ6hMvFyWBImTUJ1XaBzIORpMTTtyuLRCVSgDQAjBEK3LeUcPKNlTNEc MOsjQQTmOYMrHEKoGJD5YSU5NVZhQsDxWFbqVTFQNV hBD7JlldWoEzBNF4crJf7qEdQkCMFIE2Qof4CuVNHdRSNDNb3+UeR5OUU0tAIpBvf7SxNlLneyGQJEVs == ID Date Data Source [id number] 01/12/2020 05:51:13 AM EDT [facility] Name Value Range Interpretation Code Description Data [facility](s) Supporting Document(s) Bicarbonate [Moles/volume] in Serum 19 mmol/L 22-29 L [facility] Chloride [Moles/volume] in Serum or Plasma 111 mmol/L 98-107 H [facility] Creatinine [Mass/volume] in Serum or Plasma 0.66 mg/dL 0.50-0.90 [facility] Glucose [Mass/volume] in Serum or Plasma 94 mg/dL 70-140 [facility] Potassium [Moles/volume] in Serum or Plasma 3.7 mmol/L 3.4-5.1 [facility] Sodium [Moles/volume] in Serum or Plasma 137 mmol/L 136-145 [facility] Urea nitrogen [Mass/volume] in Serum or Plasma 9 mg/dL 6- [facility] QA FLAGS AND/OR RANGES MODIFIED BY [employer] UPDATE ON 01/11 AT 151 Anion gap 3 in Serum or Plasma 8 mmol/L 8 [facility] Osmolality of Serum or Plasma by calculation 282 mosm/kg 275-300 [facility] Creatinine/Urea nitrogen [Mass Ratio] in Serum or Plasma 13 [facility] Calcium [Mass/volume] in Serum or Plasma 7.7 mg/dL 8.6-10.0 L [facility] QA FLAGS AND/OR RANGES MODIFIED BY [employer] UPDATE ON 01/11 AT 1514 Glomerular filtration rate/1.73 sq M pre dicted among non-blacks [Volume Rate/Area] in Serum or Plasma by Creatinine-based formula (MDRD) >6 0 [facility] Glomerular filtration rate/1.73 sq M pre dicted among blacks [Volume Rate/Area] in Serum or Plasma by Creatinine-based formula (MDRD) >60 [facility] ID Date Data Source [id number] 01/11/2020 04:24:53 PM EDT [facility] Name Value Range Interpretation Code Description Data Corrie rce(s) Supporting Document(s) Bicarbonate [Moles/volume] in Serum 20 mmol/L 22-29 L [facility] Chloride [Moles/volume] in Serum or Plasma 105 mmol/L 98-107 [facility] Creatinine [Mass/volume] in Serum or Plasma 0.66 mg/dL 0.50-0.90 [facility] Glucose [Mass/volume] in Serum or Plasma 89 mg/dL 70-140 [facility] Potassium [Moles/volume] in Serum or Plasma 3.9 mmol/L 3.4-5.1 [facility] Hemolyzed Sodium [Moles/volume] in Serum or Plasma 136 mmol/L 136-145 [facility] Urea nitrogen [Mass/volume] in Serum or Plasma 8 mg/dL 6-20 [facility] QA FLAGS AND/OR RANGES MODIFIED BY [employer] UPDATE ON 01/11 AT 1515 Anion gap 3 in Serum or Plasma 11 mmol/L - [facility] Osmolality of Serum or Plasma by calculation 280 mosm/kg 275-300 [facility] Creatinine/Urea nitrogen [Mass Ratio] in Serum or Plasma 12 [facility] Calcium [Mass/volume] in Serum or Plasma 8.4 mg/dL 8.6-10.0 L [facility] QA FLAGS AND/OR RANGES MODIFIED BY [employer] UPDATE ON 01/11 AT 1515 Glomerular filtration rate/1.73 sq M pre dicted among non-blacks [Volume Rate/Area] in Serum or Plasma by Creatinine-based formula (MDRD) >6 0 [facility] Glomerular filtration rate/1.73 sq M pre dicted among blacks [Volume Rate/Area] in Serum or Plasma by Creatinine-based formula (MDRD) >60 [facility] ID Date Data Source [id number] 01/11/2020 09:25:31 AM [facility] Name Value Range Interpretation Code Description Data Corrie rce(s) Supporting Document(s) Sodium [Moles/volume] in Blood 138 mmol/L 136-145 [facility] Potassium [Moles/volume] in Blood 3.8 mmol/L 3.4-5.1 [facility] Chloride [Moles/volume] in Blood 108 mmol/L 98-107 H [facility] Carbon dioxide, total [Moles/volume] in Blood 22 mmol/L 22-29 [facility] Calcium.ionized [Moles/volume] in Blood 1.16 mmol/L 1.13-1.32 [facility] Glucose [Mass/volume] in Blood 115 mg/dL 70-140 [facility] Urea nitrogen [Mass/volume] in Blood 8 mg/dL 6-20 [facility] QA FLAGS AND/OR RANGES MODIFIED BY [employer] UPDATE ON 01/11 AT 1515 Creatinine [Mass/volume] in Blood 0.5 mg/dL 0.50-0.90 [facility] Hematocrit [Volume Fraction] of Blood 35 % 36-45 L [facility] Hemoglobin [Mass/volume] in Blood by calculation 11.9 g/dL 11.5-15.5 [facility] ID Date Data Source [id number] 01/11/2020 10:26:42 AM [facility] Name Value Range Interpretation Code Description Data Corrie rce(s) Supporting Document(s) Bicarbonate [Moles/volume] in Serum 22 mmol/L 22-29 [facility] Chloride [Moles/volume] in Serum or Plasma 104 mmol/L 98-107 [facility] Creatinine [Mass/volume] in Serum or Plasma 0.66 mg/dL 0.50-0.90 [facility] Glucose [Mass/volume] in Serum or Plasma 115 mg/dL 70-140 [facility] Potassium [Moles/volume] in Serum or Plasma 4.0 mmol/L 3.4-5.1 [facility] Hemolyzed Sodium [Moles/volume] in Serum or Plasma 133 mmol/L 136-145 L [facility] Urea nitrogen [Mass/volume] in Serum or Plasma 9 mg/dL 6-20 [facility] QA FLAGS AND/OR RANGES MODIFIED BY [employer] UPDATE ON 01/11 AT 1515 Anion gap 3 in Serum or Plasma 7 mmol/L 8-15 L [facility] Osmolality of Serum or Plasma by calculation 276 mosm/kg 275-300 [facility] Creatinine/Urea nitrogen [Mass Ratio] in Serum or Plasma 14 [facility] Calcium [Mass/volume] in Serum or Plasma 8.2 mg/dL 8.6-10.0 [facility] QA FLAGS AND/OR RANGES MODIFIED BY [employer] UPDATE ON 01/11 AT 1515 Glomerular filtration rate/1.73 sq M pre dicted among non-blacks [Volume Rate/Area] in Serum or Plasma by Creatinine-based formula (MDRD) >6 0 [facility] Glomerular filtration rate/1.73 sq M pre dicted among blacks [Volume Rate/Area] in Serum or Plasma by Creatinine-based formula (MDRD) >60 [facility] ID Date Data Source [id number] 01/06/2020 09:55:00 AM [facility] Name Value Range Interpretation Code Description Data Corrie rce(s) Supporting Document(s) Albumin [Mass/volume] in Serum or Plasma by Bromocresol green (BCG) dye binding method 4.6 g/dL 3.5-5.2 [facility] Bilirubin.total [Mass/volume] in Serum or Plasma 0.4 mg/dL <1.2 [facility] Calcium [Mass/volume] in Serum or Plasma 8.8 mg/dL 8.6-10.0 [facility] Chloride [Moles/volume] in Serum or Plasma 102 mmol/L 98-107 [facility] Creatinine [Mass/volume] in Serum or Plasma 0.74 mg/dL 0.50-0.90 [facility] Glucose [Mass/volume] in Serum or Plasma 77 mg/dL 70-140 [facility] Alkaline phosphatase [Enzymatic activity/volume] in Serum or Plasma 57 U/L 35-104 [facility] Potassium [Moles/volume] in Serum or Plasma 3.9 mmol/L 3.4-5.1 [facility] Protein [Mass/volume] in Serum or Plasma 7.2 g/dL 6.4-8.3 [facility] Sodium [Moles/volume] in Serum or Plasma 137 mmol/L 136-145 [facility] Aspartate aminotransferase [Enzymatic activity/volume] in Serum or Plasma 16 U/L <32 [facility] Urea nitrogen [Mass/volume] in Serum or Plasma 9 mg/dL 6-20 [facility] Osmolality of Serum or Plasma by calculation 281 mosm/kg 275-300 [facility] Creatinine/Urea nitrogen [Mass Ratio] in Serum or Plasma 12 [facility] Bicarbonate [Moles/volume] in Serum 26 mmol/L 22-29 [facility] Alanine aminotransferase [Enzymatic activity/volume] in Seru m or Plasma 7 U/L <33 [facility] Anion gap 3 in Serum or Plasma 9 mmol/L 8-15 [facility] Glomerular filtration rate/1.73 sq M pre dicted among non-blacks [Volume Rate/Area] in Serum or Plasma by Creatinine-based formula (MDRD) >6 0 [facility] Glomerular filtration rate/1.73 sq M pre dicted among blacks [Volume Rate/Area] in Serum or Plasma by Creatinine-based formula (MDRD) >60 [facility] ID Date Data Source [id number] 01/06/2020 10:10:43 AM [facility] Name Value Range Interpretation Code Description Data Corrie rce(s) Supporting Document(s) Lactate dehydrogenase [Enzymatic activit y/volume] in Serum or Plasma by Lactate to pyruvate reaction 146 U/L 122-214 [facility] ID Date Data Source [id number] 01/06/2020 11:41:03 AM [facility] Name Value Range Interpretation Code Description Data Corrie rce(s) Supporting Document(s) Leukocytes [#/volume] in Blood by Automated count 6.1 10*3/uL 4-10 [facility] Erythrocytes [#/volume] in Blood by Automated count 4.89 10*6/uL 4.1- 5.3 [facility] Hemoglobin [Mass/volume] in Blood 13.4 g/dL 11.5-15.5 [facility] Hematocrit [Volume Fraction] of Blood by Automated count 41.2 % 3 6-45 [facility] Erythrocyte mean corpuscular volume [Entitic volume] by Auto mated count 84.3 fL 80-96 [facility] Erythrocyte mean corpuscular hemoglobin [Entitic mass] by Automated count 27.5 pg 27-33 [facility] Erythrocyte mean corpuscular hemoglobin concentration [Mass/volume] by Automated count 32.6 g/dL 32.0-36.0 [facility] Erythrocyte distribution width [Ratio] by Automated count 14.2 % 11.5-14.5 [facility] Platelets [#/volume] in Blood by Automated count 188 10*3/uL 150-400 [facility] Confirmed Differential cell count method - Blood [facility] Neutrophils/100 leukocytes in Blood by Automated count 66 % [facility] Lymphocytes/100 leukocytes in Blood by Automated count 30 % [facility] Monocytes/100 leukocytes in Blood by Automated count 3 % [facility] Basophils/100 leukocytes in Blood by Automated count 1 % [facility] Neutrophils [#/volume] in Blood by Automated count 4.06 10*3/uL 1.8-7 .0 [facility] Lymphocytes [#/volume] in Blood by Automated count 1.81 10*3/uL 1.2-4 .0 [facility] Monocytes [#/volume] in Blood by Automated count 0.20 10*3/uL 0-0.8 [facility] Basophils [#/volume] in Blood by Automated count 0.03 10*3/uL 0-0.2 [facility] ID Date Data Source [id number] 11/29/2019 02:42:20 AM EDT [facility] Name Value Range Interpretation Code Description Data Corrie rce(s) Supporting Document(s) Progress Note [facility] SKTLBw0kCyECHzTj72/JJEjbSOGns2JcTJuxJGn1SSylUIFsH0NoHLZ1rK6fVKO0SElLVsPwBqVfXAZ3 lbm [file] JqFSkjPUBgGCt5Cdi6CEt9GGOeKHN2HO3fSWELEw2+NXlkoQJmnXqfPQSQMywdRnCSTwTpDR5UZZh= ID Date Data Source [id number] 12/05/2019 01:05:00 AM EDT [facility] Name Value Range Interpretation Code Description Data Corrie rce(s) Supporting Document(s) Levetiracetam, S 20.6 ug/mL 10.0-40.0 [facility] This test was developed and its performa nce characteristicsdetermined by [facility]. It has not been cleared or approvedby the Food and Drug Administration. ID Date Data Source [id number] 11/06/2019 12:13:11 AM EDT [facility] Name Value Range Interpretation Code Description Data Corrie rce(s) Supporting Document(s) Progress Note [facility] WDHYMm6qFjAPKuQg82/CBIxuHXNum3AsVNhpJKv0HVpwBDRxN2QyPLP4nD3pERL6LFeRNjOiMpOvNnDl lbm [file] /UQWftRJDBdR2T0bvRdc7dh+zLXp/PROVIDER RELATIONS CONSULTANT/e2Jec4FrRnCvEssuBfzmXcgU78icGXpjFtimUdGGgid+rZl [file] tYrQmgFhzuzGNVmBYKfa0qYB0QuUPOwNLgDzIfgq+cKoVb6ZYDnXptr3wtZDu62iL/3/Surface Grinder+xcs+M4h5m [file] JrF3AMN8VVyoAEAJPo8G ID Date Data Source [id number] 11/05/2019 01:06:00 PM EDT [facility] ([facility]) Name Value Range Interpretation Code Description Data Corrie rce(s) Supporting Document(s) Free T4 2.21 ng/dL 0.76-1.46 [facility] ([facility]) Thyroid Stimulating Hormone Laboratory test result 0.358-3.740 [facility] ([facility]) ID Date Data Source [id number] 09/01/2019 08:30:00 AM EDT [facility] ([facility]) Name Value Range Interpretation Code Description Data Corrie rce(s) Supporting Document(s) Thyroglobulin Ab [Units/volume] in Serum or Plasma Laboratory test re sult [facility] ([facility]) ID Date Data Source [id number] 09/01/2019 08:30:00 AM EDT [facility] ([facility]) Name Value Range Interpretation Code Description Data Corrie rce(s) Supporting Document(s) Thyroid Stimulating Hormone 5.420 uIU/ML 0.358-3.740 [facility] ([facility]) Free T4 0.82 ng/dL 0.76-1.46 [facility] ([facility]) ID Date Data Source [id number] 09/01/2019 08:30:00 AM EDT [facility] ([facility]) Name Value Range Interpretation Code Description Data Crorie rce(s) Supporting Document(s) Thyroperoxidase Ab [Units/volume] in Serum or Plasma 28.6 U/ML [facility] ([facility]) ID Date Data Source [id number] 08/08/2019 07:00:00 PM EDT [facility] Name Value Range Interpretation Code Description Data Corrie rce(s) Supporting Document(s) Progress Note [facility] XPAEWs4sXbQZPxRn63/FVYkyNDKjl4MlHPndFSl5BMsvTUWhT1UmBFE3mA6rFEC3SEeVBxEkBzQzKVIn [place] [file] OPY8QWEVsnmQaGfnXozrzBNLqLMYby4hVH1EzIIPeMDdDzIxay+bBiQj6UJEaEesa2avUEj02uM/3/Surface Grinder [file] SP/MAP/T+photographer lithographic+5//XnIwFDV7D22uQsyBcEPr/iPqTWe [file] WIRELESS CONSTRUCTION MANAGER+Am2RFCExLUg2L4R9AAIcNYd8Q5FQX3VQNCDcVHciIEbkPVTdSHt9C7R3TPAcY7SPE1Iviwhnwo3+ IP5KF47DLDRmJJh3W4X9oIZuP1D2lPzBuLP5XN4YAB1SzBe5aVLvcS2+WF9PW5ZTEbYfIJs1X0O5yNMo Y5T8pRgGaPB2PV7VQX3RcGRfHAExtiUpUq0vL0INCM gCAbNWTWB5CG5BaROkPN1ZkKDRK9GpsBXsZg5zIZuahMFqmO9yEo5bHNdpSB1ULdYIVSrTQKS8XA4NwW TpHP7CfIRLQ3BonHZlZr3oLEcuxIKkjs1+XG0IKWClDp4ORw4+XWlactGuDeyZSfK3LUJsp1BuZVf5TG 7INL6cvSkxRKH6Kz4JaFP9eSCbM8hTKO4KiELlZ47y hHSfHKBmLd8YAeT2hlSanP8VNM70aJQey1Q7WBLiH9jiBEvhg43wMCzbENaYBU6iIWHOHEfgLAwyCVS0 EnHvlcpbCOUtMc8KTyFsVDk8aU4qvGA4GSC0VykrbPCbIOnfKzEfOmQoMzU1gAlezkt3UVmzYV0fJIps czptZXRhLyc+WZseVLUaOWMhIkxTRXWpvJ6wyqN7eg RlOMdqvICuZa3dt1j5BknyAm3aAb5aPMd8JfSkUiKxWNXsPj0mvO67KTnwnyOzHw3CPjBdYBQ2H1SsFq pSREY+TMtqNZwqlQf4dIXnLQYxCu9BXQPeZMFiIBSzMVKzEAFzEZGwPLEnORLnJPYoAMQmXYFxCWYeWR AgICAgICAgICAgICAgICAgICAgICAgICAgICAgICAg HZTeGPWlGYRhCOCsTRYsBZRpGCSeQFApWSKbCKMqTE5BKRPkDUMeMCFfKGAoNVMoTRTeHWWtQMMfIQQc ICAgICAgICAgICAgICAgICAgICAgICAgICAgICAgICAgICAgICAgICAgICAgICAgICAgICAgICAgICAg CAHmPJFhNRTgWHEpPC0PVALwROEiJHZaZAOmAISnIV AgICAgICAgICAgICAgICAgICAgICAgICAgICAgICAgICAgICAgICAgICAgICAgICAgICAgICAgICAgIC BqWEJtMQEwOVBzWZFjPVPnPJZrPIJjLP8HVTFfTMYmTUFbEHUmUJNhONHyQBGbLXUzQJWoKKFlVOCnRV AgICAgICAgICAgICAgICAgICAgICAgICAgICAgICAg BAPrUTInODBbRZXmYHFoADTgIDAkYUFsTVAvDPYaRHTzKW3MVIYiQNPeWLGmHYPeYIHuZYQvLQFhBJTn ICAgICAgICAgICAgICAgICAgICAgICAgICAgICAgICAgICAgICAgICAgICAgICAgICAgICAgICAgICAg ATWsQPRrCCTsFBJdHRFsUE7NTIYlAWPuVRGtCALnAZ AgICAgICAgICAgICAgICAgICAgICAgICAgICAgICAgICAgICAgICAgICAgICAgICAgICAgICAgICAgIC FiVCEjQMOsBIDdNVNkGCVsMMOcUIOzOBKkMT6XXBJlAZJdEJWwJEToWVTpNSCdHGFwBEIoUVRsJZTsZT AgICAgICAgICAgICAgICAgICAgICAgICAgICAgICAg XEOuBRDyFFNpJBMqMBJdFSUeUNNoRQTqWUKrYQDwYWLeQOJfNK8OFVJuFCNiGOJwASPyEGLrKKRaEAFt ICAgICAgICAgICAgICAgICAgICAgICAgICAgICAgICAgICAgICAgICAgICAgICAgICAgICAgICAgICAg GDYdWHMsSEAoBCDoJXTpKDEdUH4KBQHaARUjYCJsVJ AgICAgICAgICAgICAgICAgICAgICAgICAgICAgICAgICAgICAgICAgICAgICAgICAgICAgICAgICAgIC XcETSvBBSbBALyUEHeJPBgAFNdTMZcUAHxEGIcPG0BENSoLZKnBILkBJRcXSBrRLQxGIGkPUDxCMNdDG AgICAgICAgICAgICAgICAgICAgICAgICAgICAgICAg DNQhXWYdLYOgICPpDJJfOSEfQEGtYFVlURHkKZWlMLDcBLJjJOSjMH8UVA10cICzi8U8NQEdWZ1ceff/ Su5JWMwphxGpdCNcHP9LGmWmDI8eap1ZWwTpVF9lkw2WLPfMNeNbM5N9zNLgSISgIPIKDeKnA93sSNmr Sd05ZLwgFAPlQxKxMGd8Ho4GXiFpY6ahCYWmFwJ1DF BuGkZ0EBEvEzV3IRAmNoMjBAOxSSHbXBWaHIMAHGV6TGAdGrNgNpEcCRKjXEqlTUCCAZRbHGOjPfTwQZ xnOF5Nv8KjgCB9VRj+Ys8ZJO1ts2UmJTxwLAKwQI9mkv7YMKsFHeHlV2UxwfD1QNO6DYQaOk1CGIKePJ EzhXWnLUHpFIFPZjDqT1RpaW62UNKASw8+DQplbmRv VplCVjN4NIYlc0OxMSp3SF1CFXOhHMa9uVJxTVPoM5Vaz4JrYx18WACrNddpDSqsyjzmcO4mPZavf5Ya JV6EWVT0GGUmSoYcHaBzVCPfQTmoGLFTWIkMArOjI8Pep4AxMxV8NESaUhAjLAxzPCBuRdH0YN17yTeq UT6CMKYoUYJpHX22JKU5DHKhWf5WSy1TVvUxDZ3gaz 8WBSPjZZNaTbyOYzn0JPzcBE7AhADxJ6QcxWDwp5qAOaBpW2FWWXX9FSJnSy9UEPVeIlSnLOLtMCugOF 8tTDVuDQCXsDwzjfL7YU7LVX7revVbIR8MUtJcXo5kYw5AAkPlQ8VvA1SkTXYfHPJBWCgxCU3SCMjxVA 8gMK2Qz6CIrZArcC9ekb7HDRTnNRAoNxdvjs6JFliv M6Z2eOmfUHOjKwulNHNJBRsvHJ1DEGYxSPD8UEGhJvOyTYKPWtBhN45qSQ9GQ0Doc34dAeH6UBVpPvUk FTzjXM34hZhljuTzvGHxlVdgHH7JJz0+DQplbmRvYmoNCnhyZWYNCjAgNDENCjAwMDAwMDAwMDAgNjU1 PtBrNb1WWIJlGLPiDNHwElYyKBSqZLFsDTehWHQlDY K5HyBkOHKtJWLzLG2WZgLgFEFpTVscHGmvKSGrAJEdtd3RDLNpMPJzDDJ3WwGgEMZmANDpONqjXFTzAA V9Afk5TKPeUORmRX4JAwShPYNrHPR3HWUeVKEdKYJgnb9ODSLoKAHgRKU9LFQsAKXaAJAkWAhbXCSnGH J6Aeb8FAZuTFOgDD3WFxRyIJPbHBLoIuCvOKSpPBJv av2UWBXbJMRnAWC6GkMiXCFzRBWwVUstABHsJKRoGWQaKCYhWZXcKM3LPsCkQCUfEJFdOnznTSTbXKPl lk4FQYFiUXWnDfE8UASaMTJcDYFcGRblNIPzVSD8RyF8OYKiLEOjWI2KLvXkGTGeWcBmLZSoMIZkCWZy ct9HYZUkXHZsGZS9UfAgGBOdZTEdEYaiETEpLWImNa a6YTDtKRVkCV0FTaCaJIXzLyJ8YIMlGJCfDFKrtr3QORBlNGJhUqUhZSXyECRrHVZfXPkeXOBhCMA0JB P5YOLwTTLiKA5OMdCpBYZlWqxgODMkWZHoDBXedz9LBASlAQFrJMVbRNLuTWDmYGAfUHnvTOPdDJPcTv NwUYJnVKVpOU4QEfAiGIKeTyD6WKitZUKbSUTvun4F LTBoNJOnSOm0XWCdYWCySZCxBMxlBCCgETOqTvl3CKAwDNHlKN9TVkPgJPQvFzS6BREiNMAdLWWqkp5V YDHxKKDuRoY3AOKjNHPaLDBdXYhzPWDyAVElKdTaWKZeRNUrTJ7ECrGsUYLpUGTtXiVtOOAwOKEhkd8S GFUxNGB3JqDoKbXlDOLsKEIyDRjeYCBuAHIlWBY6CY GeYPSiHI6ZRbZjOORtQUO5KFYiRCDaRGHyde9GGFLxPOZ1QDbrHENxDDUeGFKqMKssWOJiCUA0XMFaGT SdXXBeGM2LFmNtRBDmIJHsPSKnSHWrYZUrhr0OBEBrHSQ1JYnxESUrUAKzOIOgHLxnPOVvPDB0JkEyAK PcHGPdSP0CGfNmGQUcMEanIlPoESNoTGUdcu5YHDLv RXT5GkIbOQQbMVZsGURoVMt9bkKneKJvHDe1UE7FB7UoyaImFEPBAb5Zh174ZMHrGZOhLj0YZ4pbNr7x KIQgQVIXIg2EKLe1CvTdGYSvRUyeStabUHZxAcFeSAB7FcLaQ8V8AZqqXgv+RHu4QaT4ZuNzCPEcBID4 VSBdKaRdSeY1JsAqQMI2TQOuHb7hRGXWXz2+JQktlIBelUxsADLTYbK6WoG5TFhmLYUXEq9H ID Date Data Source [id number] 04/26/2019 04:04:00 PM EST [facility] 1 OrderSheet [facility] Emergency Department [address] [place] [address] Phone #: ext- [phone] 04/26/2019 15:25 Patient: NERY WAN Sex: F : 1990 Age: 29yWEIGHT:74.8 kg (S) HEIGHT:64 inches (S) BMI:28.3ALLERGIES: Fentanyl and Related, Ketamine, LatexCHIEF COMPLAINT: dysuria, pelvic pain, abd cramps, abnml bleedingDIAGNOSIS: Vaginal discharge symptom, Vaginal bleeding problemLAB ORDERSOrder Description Priority Entered Acknowledged InitialedUrinalysis (Clean STAT 16:59 04/26/2019 17:14 Carolyn Sheffield) Xi Sheffield R.N. RKaylahNKaylah; Verbal order per; Vamsi Novoa PhysicianPTT STAT [...] R.N.18:05 04/26/2019) Physician;DIAGNOSTIC STUDY ORDERS 2 OrderSheet [facility] Emergency Department [address] [place] [address] Phone #: ext- [phone] 04/26/2019 15:25 Patient: [...] R.N. Physician;[Electronically signed by Tacos Sharif R.N. (:04/26/2019)][El ectronically signed by Vamsi Novoa Physician (08:06 04/27/2019)][Electronically locked by Tacos Sharif R.N. (04/26/2019)] Name Value Range Interpretation Code Description Data Corrie rce(s) Supporting Document(s) ID Date Data Source [id number] 04/26/2019 04:04:00 PM EST [facility] 1 Medication Reconciliation Report [facility] Emergency Department [address] [place] [address] Phone #: ext- [phone] 04/26/2019 15:25 Patient: [...] to the patient:None. 2 Medication Reconciliation Report [facility] Emergency Department [address] [place] [address] Phone #: ext- [phone] 04/26/2019 15:25 Patient: NERY WAN Sex: F : 1990 Age: 29y Name Value Range Interpretation Code Description Data Corrie [facility](s) Supporting Document(s) ID Date Data Source [id number] 04/26/2019 04:04:00 PM [facility] 1 Medication Administration Record [facility] Emergency Department [address] [place] [address] Phone #: ext [phone] 04/26/2019 15:25 Patient: NERY WAN Acct#: [id number] Sex: F : 1990 Age: 29yWeight: 74.8 kgHeight/Length: 64 inBMI: 28.3ALLERGIES: Ketamine, Latex, Fentanyl and RelatedDate/Time Medication Administered Medication Ordered Name Value Range Interpretation Code Description Data Corrie rce(s) Supporting Document(s) ID Date Data Source [id number] 04/26/2019 04:04:00 PM [facility] 1 General Instructions [facility] Emergency Department [address] [place] [address] Phone #: ext- [phone] 04/26/2019 15:25 Patient: NERY WAN Sex: F : 1990 Age: 29yMild pre-menopausal dysfunctional uterine bleeding. (Minimal).Vaginal discharge (Mild).INSTRUCTIONSDrink plenty of fluids.Warnings: GENERAL WARNINGS: Return or contact your physician immediately if your conditionworsens or changes unexpectedly, if not improving as expected, or if other problems arise.Follow- up:Follow up with a studio operator if not better. Call for an appointment. Reason for referral: evaluation,treatment and Dysfunction uterine bleeding / Cystitis / Bacterial vaginosis.Understanding of the discharge instructions verbalized by patient. ADDITIONAL INFORMATIONDysfunctional Uterine BleedingDysfunctional uterine bleeding, also called abnormal uterine bleeding, is a condition in which bleeding 2 General Instructions [facility] Emergency Department [address] [place] [address] Phone #: ext- [phone] 04/26/2019 15:25 Patient: NERY WAN Sex: F : 1990 Age: 29yis abnormal and occurs at unexpected times of the month. This happens because of changes in thehormones that help control a woman's menstrual cycle each month.The bleeding may be heavier or intrusion analyst than normal. If you have heavy bleeding [...] better even with treatment 3 General Instructions [facility] Emergency Department [address] [place] [address] Phone #: ext- [phone] 04/26/2019 15:25 Patient: NERY AWN Sex: F : 1990 Age: 29y Fever of 100.4F (38C) or higher, or as directed by your provider Signs of anemia, such as pale skin, extreme fatigue or weakness, or shortness of breath Dizziness or fainting [id number] [employer]. [address] [place] [address], [place] [id number]. All rights re served. This information is [...] more than one partner 4 General Instructions [facility] Emergency Department [address] [place] [address] Phone #: ext- [phone] 04/26/2019 15:25 - Patient: NERY AWN Sex: F : 1990 Age: 29yBV will sometimes go away on its own. But treatment is usually recommended. This is becauseuntreated BV can increase the risk of more serious health problems such as: Pelvic inflammatory disease (PID) delivery (giving to a baby early if you're ) HIV and certain other sexually transmitted diseases (STDs) Infection after [facility] the [facility] BV is most often treated [...] or cream you're prescribed. 5 General Instructions [facility] Emergency Department [address] [place] [address] Phone #: ext- [phone] 04/26/2019 15:25 Patient: NERY WAN Sex: F : 1990 Age: 29y You or any partners you have sex with have new symptoms, such as a rash, joint pain, or sores. [phone] [employer] [place] [address]. All rights reserved. This information is not intended as asubstitute for professional medical care. Always follow your healthcare professional's instructions. You have been given the following additional information: Dysfunctional Uterine Bleeding Bacterial Vaginosis (BV)(Electronically signed by Vamsi Novoa, Physician 04/27/2019 08:06) Name Value Range Interpretation Code Description Data Corrie rce(s) Supporting Document(s) ID Date Data Source [id number] 04/26/2019 04:04:00 PM EST [facility] 1 Clinical Report - Nurses [facility] Emergency Department [address] [place] [address] Phone #: [phone]- [phone] 04/26/2019 15:25 Patient: NERY WAN Sex: F : 1990 Age: 29yTRIAGEArrived by private vehicle. Historian: patient.Acuity: LEVEL 3.Chief Complaint: VAGINAL BLEED and ABDOMINAL PAIN.Onset. (1 weeks ago). ( Pt states she was taken to [facility] 3 days ago for abdominal pain along with vaginalbleeding, she was worked up and told per her OBGYN that her bladder is 3 times larger than normal andhas bleeding outside of the bladder, she voices the vaginal bleeding continues today and voices 6 pads perhour).Treatment PHYSICAL DESIGN ENGINEER:Seen within the last 72 hours at [...] Childers RN 2 Clinical Report - Nurses [facility] Emergency Department [address] [place] [address] Phone #: ext- [phone] 04/26/2019 15:25 Patient: [...] Childers RN.Interventions 3 Clinical Report - Nurses [facility] Emergency Department [address] [place] [address] Phone #: ext- [phone] 04/26/2019 15:25 [id number] Sex: F : 1990 Age: 29y To waiting room. --15:54 04/26/19 Wesley Childers RN.PHYSICAL [id number] 04/26/19. Ambulatory to room.GENERAL / NEURO / [...] Sheffield R.N. 18:15 04/26/19. Patient transported to [facility] by wheelchair with graphics edit technician. --18:15 04/26/19 Tacos Sharif R.N. 18:15 [...] RR: 16. O2 saturation: 98%. --18:57 04/26/19 [facility] [place] [address] 19:03 04/26/19. [facility] with graphics edit technician. --19:18 04/26/19 Tacos Sharif R.N. Reassurance [...] / DISCHARGE 4 Clinical Report - Nurses [facility] Emergency Department [address] [place] [address] Phone #: ext- [phone] 04/26/2019 15:25 Patient: NERY WAN Sex: F [...] medication(s). Treatments reviewed. Reviewed referral to a studio operator and primary care physician. Patient verbalized understanding. Written instructions provided in [place]. The patient was discharged by the physician. [...] rce(s) Supporting Document(s) ID Date Data Source [id number] 04/26/2019 04:04:00 PM EST [facility] 1 Clinical Report - Physicians/Mid Levels [facility] Emergency Department [address] [place] [address] Phone #: ext- [phone] 04/26/2019 15:25 Patient: [...] in the emergency department. ( seen at [facility] 3 days ago).REVIEW OF SYSTEMSNo [...] air. 2 Clinical Report - Physicians/Mid Levels [facility] Emergency Department [address] [place] [address] Phone #: ext- [phone] 04/26/2019 15:25 Patient: NERY WAN Sex: F [...] Test Result Flag Units (Reference) US TRANSVAGINAL [facility] [address] [place] [address] ---------NAME--------- NUMBER SEX AGE ADMIT DISC. XRAY# F/C TYPE SOCO Wisdom [id number] F 29 04/26/19 [id number] [id number] E/R DATE OF : 1990 M/R# [id number] #: [id number] VT-05 LOCATION: EMERGENCY DEPT TRANSCRIBED: 04/26/19 19:09 IF US TRANSVAGINAL [id number] COMPLETED:04/26/19 19:10 meme [id number] {REASON FOR PELVIS: irregular vaginal bleeding -- PHYSICIAN: JONN SCHAEFER -- -- R A D I O L O G Y R E P O R T -- PATIENT HISTORY: intermittent pelvic pain and irregular vaginal bleeding, , currently on exelon arm contraceptive device, h/o of hodgkins lymphoma 1341-3631, w/bone marrow transplant in 2011 and remission since 2013 EXAM: US Pelvis, Complete. -- CLINICAL HISTORY: Intermittent pelvic pain and irregular vaginal bleeding, , currently on exelon arm contraceptive device, h/o of hodgkins lymphoma 3066-4037, w/bone marrow transplant in 2011 and remission since 2013 -- TECHNIQUE: Transvaginal pelvic ultrasound (complete) with image documentation. -- COMPARISON: Transabdominal pelvic ultrasound earlier the same day. -- -- FINDINGS: -- 3 Clinical Report - Physicians/Mid Levels [facility] Emergency Department [address] [place] [address] Phone #: ext- [phone] 04/26/2019 15:25 Patient: [...] ABD //T// PELV W/O ORAL W/[place] [address] ---------NAME--------- NUMBER SEX AGE ADMIT DISC. XRAY# F/C TYPE SOCO Wisdom [id number] F 29 04/26/19 [id number] XBE E/R DATE OF : 1990 M/R# [id number] #: [id number] VT-05 LOCATION: EMERGENCY DEPT TRANSCRIBED: 04/26/19 19:[address] ABD //T// PELV W/O ORAL W/O [place] [id number] COMPLETED:04/26/19 19:15 meme [id number] Reason(s): Abdominal Pain Pelvic Pain PHYSICIAN: JONN [...] FINDINGS: 4 Clinical Report - Physicians/Mid Levels [facility] Emergency Department [address] [place] [address] Phone #: ext- [phone] 04/26/2019 15:25 Patient: [...] IV Contrast Only: (HUSSEIN: 04/26/2019 17:56) [facility] 18[facility]08[facility] CanceledReason(s): Abdominal PainReason(s): Abdominal PainTRANSPORTATION: WC IV? IV?(Yes) O2? Oxygen?(No) Ro: No CMTS: Hematuria / Pelvic painPTT: (HUSSEIN: 04/26/2019 18:05) [facility] 18:42) Final results Test Result Flag Units (Reference) PTT 26.1 SECONDS (24.8 - 36.7)PT/INR: (HUSSEIN: 04/26/2019 18:05) [facility] 18:42) Final results Test Result Flag Units (Reference) PROTIME 12.4 SECONDS (11.0 - 15.5) INR 0.91 L (0.93 - 1.23) 5 Clinical Report - Physicians/Mid Levels [facility] Emergency Department [address] [place] [address] Phone #: [phone]- [phone] 04/26/2019 15:25 Patient: NERY WAN Sex: F : 1990 Age: 29y \\BLDo\\INR INTERPRETATION\\BLDx\\ Therapeutic range for Coumadin andrelated oral anticoagulants. -International Normalized Ratio (INR): 2.0 - 3.0 for VenousThrombosis, Pulmonary Embolus, Tissue heart valves, Acute TN, Atrial Fibrillation, Valvular heartdisease and recurrent Systemic [...] yrs 6 Clinical Report - Physicians/Mid Levels [facility] Emergency Department [address] [place] [address] Phone #: ext- [phone] 04/26/2019 15:25 Patient: NERY WAN Sex: F : 1990 Age: 29y NON-AA GFR >60 mL/min AFR AMER GFR >60 mL/min Male GFR Interprentation 20-49 yrs >60 mL/min Oqtfrw30-50 yrs >56 mL/min Normal 60-69 yrs >49 mL/min Normal 70-79yrs>42 mL/min Normal 80 and above >35 mL/min Normal Female GFRInterpretation 20-39 yrs >60 mL/min Normal 40-49 yrs >58 mL/minNormal 50-59 yrs > 51 mL/min Normal 60-69 yrs >45 mL/min Yshbke84-88 yrs >39 mL/min Normal 80 and above >32 mL/min NormalCPK: (HUSSEIN: 04/26/2019 18:05) ( MsgRcvd 04/26/2019 18:59) Final results Test Result Flag Units (Reference) CPK 58 U/L (30 - 170)US Pelvis: (HUSSEIN: 04/26/2019 17:55) ( MsgRcvd 04/26/2019 19:11) Final resultsUS PELVICReason(s): Abnormal BleedingTRANSPORTATION: WC IV? O2? Oxygen?(No) Room: ED: [place] [address] ---------NAME--------- NUMBER SEX AGE ADMIT DISC. XRAY# F/C TYPE SOCO Wisdom [id number] F 29 04/26/19 [id number] XBE E/R DATE OF : 1990 M/R# [id number] #: [id number] [place]-05 LOCATION: EMERGENCY DEPT TRANSCRIBED: 04/26/19 19:10 IF US PELVIC [id number] COMPLETED:04/26/19 19:11 meme [id number] Reason(s): Abnormal Bleeding PHYSICIAN: JONN BR R A D I O L O G Y R E P O R T PATIENT HISTORY: intermittent pelvic pain and irregular vaginal bleeding, , currently on exelon arm contraceptive device, h/o of hodgkins lymphoma [id number], w/bone marrow transplant in 2011 and remission since 2013 EXAM: US Pelvis, Complete. CLINICAL HISTORY: Intermittent pelvic pain and irregular vaginal bleeding, , currently on exelon arm contraceptive device, h/o of hodgkins lymphoma [id number], w/bone marrow transplant in 2011 and remission since 2013 TECHNIQUE: Transabdominal pelvic ultrasound (complete) with image documentation. COMPARISON: None provided. FINDINGS: ENDOMETRIUM: Normal thickness. UTERUS/CERVIX: The uterus is not seen. RIGHT OVARY: Not seen LEFT OVARY: Not seen. FREE FLUID: No free fluid. Bladder: No filling defect or bladder wall mass. IMPRESSIONS: 7 Clinical Report - Physicians/Mid Levels [facility] Emergency Department [address] [place] [address] Phone #: ext- [phone] 04/26/2019 15:25 Patient: [...] - Mild constipation.).PROGRESS AND PROCEDURESCourse of Care: 19:33 Apr 26 2019. Patient is stable. Symptoms much better. 19:33 Apr 26 2019. Pt. already being treated for bacterial vaginosis by her studio operator and she is on an antibiotic. Labs [...] (Mild). 8 Clinical Report - Physicians/Mid Levels [facility] Emergency Department [address] [place] [address] Phone #: ext- [phone] 04/26/2019 15:25 Patient: NERY WAN Sex: F : 1990 Age: 29yINSTRUCTIONS Drink plenty of fluids. Warnings: GENERAL WARNINGS: Return or contact your physician immediately if your condition worsens or changes unexpectedly, if not improving as expected, or if other problems arise. Follow-up: Follow up with a studio operator if not better. Call for an appointment. Reason for referral: evaluation, treatment and Dysfunction uterine bleeding / Cystitis / Bacterial vaginosis. Understanding of the discharge instructions verbalized by patient.(Electronically signed by Vamsi Novoa, Physician 04/27/2019 08:06) Name Value Range Interpretation Code Description Data Corrie rce(s) Supporting Document(s) ID Date Data Source [id number] 04/26/2019 08:43:00 [place] [address] ---------NAME--------- NUMBER SEX AGE ADMIT DISC. XRAY# F/C TYPE SOCO Wisdom [id number] F 29 04/26/19 [id number] XBE E/R DATE OF : 1990 M/R# [id number] #: [id number] VT-05 LOCATION: EMERGENCY DEPT TRANSCRIBED: 04/26/19 19:[address] ABD //T// PELV W/O ORAL W/[place] [id number] COMPLETED:04/26/19 19:15 meme [id number] Reason(s): Abdominal Pain Pelvic Pain PHYSICIAN: JONN [...] rce(s) Supporting Document(s) ID Date Data Source [id number] 04/26/2019 07:10:00 PM [facility] [address] [place] [address] ---------NAME--------- NUMBER SEX AGE ADMIT DISC. XRAY# F/C TYPE ABBZAKI Wisdom [id number] F 29 04/26/19 [id number] XBE E/R DATE OF : 1990 M/R# [id number] PH#: [phone] VT-05 LOCATION: EMERGENCY DEPT TRANSCRIBED: 04/26/19 19:10 IF US PELVIC [id number] COMPLETED:04/26/19 19:11 meme [id number] Reason(s): Abnormal Bleeding PHYSICIAN: JONN BR======== R A D I O L O G Y R E P O R T =PATIENT HISTORY:intermittent pelvic pain and irregular vaginal bleeding, , currently onexelon arm contraceptive device, h/o of hodgkins lymphoma [id number], w/bonemarrow transplant in 2011 and remission since 2013EXAM: US Pelvis, Complete.CLINICAL HISTORY: Intermittent pelvic pain and irregular vaginal bleeding, ,currently on exelon arm contraceptive device, h/o of hodgkins [id number], w/bone marrow transplant in 2011 and remission [...] rce(s) Supporting Document(s) ID Date Data Source [id number] 04/26/2019 07:09:00 PM [facility] [address] [place] [address] ---------NAME--------- NUMBER SEX AGE ADMIT DISC. XRAY# F/C TYPE SOCO Wisdom [id number] F 29 04/26/19 [id number] XBE E/R DATE OF : 1990 M/R# [id number] #: [id number] VT-05 LOCATION: EMERGENCY DEPT TRANSCRIBED: 04/26/19 19:09 IF US TRANSVAGINAL [id number] COMPLETED:04/26/19 19:10 meme [id number] {REASON FOR PELVIS: irregular vaginal bleeding PHYSICIAN: JONN BR = R A D I O L O G Y R E P O R T PATIENT HISTORY:intermittent pelvic pain and irregular vaginal bleeding, , currently onexelon arm contraceptive device, h/o of hodgkins lymphoma 3662-0386, w/bonemarrow transplant in 2011 and remission since 2013EXAM: US Pelvis, Complete.CLINICAL HISTORY: Intermittent pelvic pain and irregular vaginal bleeding, ,currently on exelon arm contraceptive device, h/o of hodgkins [id number], w/bone marrow transplant in 2011 and remission [...] rce(s) Supporting Document(s) ID Date Data Source [id number] 05/02/2019 11:39:00 AM [facility] [address] Name Value Range Interpretation Code Description Data Corrie rce(s) Supporting Document(s) Bacteria identified in Blood by Culture [facility] NO GROWTH AFTER 5 DAYS ID Date Data Source [id number] 05/02/2019 09:18:00 PM [facility] Name Value Range Interpretation Code Description Data Corrie rce(s) Supporting Document(s) CULTURE BLOOD [facility] spital _CULTURE BLOOD_ [place] [address] CLIA# [id number] SEE SCANNED REPORT{ PRELIM ID Date Data Source [id number] 05/02/2019 09:18:00 PM EST [facility] Name Value Range Interpretation Code Description Data Corrie rce(s) Supporting Document(s) CULTURE BLOOD [facility] spital _CULTURE BLOOD_ TEST PERFORM ED AT [place] [id number] [place] [address] CLIA# [id number] SEE SCANNED REPORT{ PRELIM ID Date Data Source [id number] 04/26/2019 06:59:00 PM [facility] Name Value Range Interpretation Code Description Data Corrie rce(s) Supporting Document(s) Creatine kinase [Enzymatic activity/volume] in Serum or Plasma 5 8 U/L 30 - 170 [facility] ID Date Data Source [id number] 04/26/2019 06:59:00 PM [facility] Name Value Range Interpretation Code Description Data Corrie rce(s) Supporting Document(s) COMPREHENSIVE METABOLIC PANEL [facility] COMPREHENSIVE METABOLIC PANEL Sodium [Moles/volume] in Serum or Plasma 139 mEq/L 134 - 153 [facility] Potassium [Moles/volume] in Serum or Plasma 4.2 mEq/L 3.6 - 5.0 [facility] Chloride [Moles/volume] in Serum or Plasma 104 mEq/L 98 - 107 [facility] Carbon dioxide, total [Moles/volume] in Serum or Plasma 26 MEQ/L 22 - 30 [facility] Glucose [Mass/volume] in Serum or Plasma 86 MG/DL 65 - 110 [facility] BUN 19 MG/DL 7 - [facility] Creatinine [Mass/volume] in Serum or Plasma 0.9 MG/DL 0.7 - 1.5 [facility] BUN/CREAT 21 8 - 27 [facility] al Protein [Mass/volume] in Serum or Plasma 7.1 G/DL 6.3 - 8.2 [facility] Albumin [Mass/volume] in Serum or Plasma 4.5 G/DL 3.9 - 5.0 [facility] Globulin [Mass/volume] in Serum by calculation 2.6 GM/DL 2.4 - 3.2 [facility] A/G RATIO 1.7 0.8 - 2.0 [facility] Calcium [Mass/volume] in Serum or Plasma 9.6 MG/DL 8.4 - 10.2 [facility] Bilirubin.total [Mass/volume] in Serum or Plasma 0.7 MG/DL 0.2 - 1.3 [facility] Alkaline phosphatase [Enzymatic activity/volume] in Serum or Plasma 52 U/L 38 - 126 [facility] Aspartate aminotransferase [Enzymatic activity/volume] in Serum or Plasma 13 U/L 5 - 40 [facility] Alanine aminotransferase [Enzymatic activity/volume] in Seru m or Plasma 10 U/L 7 - 56 [facility] Anion gap 3 in Serum or Plasma 9.0 mmol/L 8.0 - 16.0 [facility] AGE [address] [facility] NON-AA GFR >60 mL/min [facility] Hosp ital AFR AMER GFR >60 mL/min [facility] Ho spital Male GFR In terprentation 20-49 [...] >32 mL/min Normal ID Date Data Source [id number] 04/26/2019 06:59:00 PM [facility] Name Value Range Interpretation Code Description Data Corrie rce(s) Supporting Document(s) Lipase [Enzymatic activity/volume] in Serum or Plasma 33 U/L 13 - 60 [facility] ID Date Data Source [id number] 04/26/2019 06:42:00 PM [facility] Name Value Range Interpretation Code Description Data Corrie rce(s) Supporting Document(s) aPTT in Blood by Coagulation assay 26.1 SECONDS 24.8 - 36.7 [facility] ID Date Data Source [id number] 04/26/2019 06:42:00 PM [facility] Value Range Interpretation Code Description Data Corrie rce(s) Supporting Document(s) Prothrombin time (PT) 12.4 SECONDS 11.0 - 15.5 [facility] INR in Platelet poor plasma by Coagulation assay 0.91 0.93 - 1. 23 L [facility] \\BLDo\\INR INTERPRETATION\\BLDx\\ Therapeutic range for Coumadin and related oral anticoagulants. - International Normalized Ratio (INR): 2.0 - 3.0 for Venous Thrombosis, Pulmonary Embolus, Tissue heart valves, Acute TN, Atrial Fibrillation, Valvular heart disease and recurrent Systemic Embolism. -International Normalized Ratio (INR): 2.5 - 3.5 for Mechanical Prosthetic valve. ID Date Data Source [id number] 04/26/2019 06:31:00 PM EST [facility] Name Value Range Interpretation Code Description Data Corrie rce(s) Supporting Document(s) CBC W/AUTOMATED DIFF [facility] COMPLETE BLOOD COUNT Leukocytes [#/volume] in Blood by Automated count 5.8 10^3/uL 4.2 - 1 1.0 [facility] Erythrocytes [#/volume] in Blood by Automated count 4.31 10^6/uL 4. 20 - 5.40 [facility] Hemoglobin [Mass/volume] in Blood 12.2 g/dL 12.0 - 16.0 [facility] Hematocrit [Volume Fraction] of Blood by Automated count 37.8 % 3 7.0 - 47.0 [facility] Erythrocyte mean corpuscular volume [Entitic volume] by Auto mated count 87.7 fL 81.0 - 101 [facility] Erythrocyte mean corpuscular hemoglobin [Entitic mass] by Automated count 28.3 pg 27.0 - 34.0 [facility] Erythrocyte mean corpuscular hemoglobin concentration [Mass/volume] by Automated count 32.3 g/dL 31.0 - 36.0 [facility] Erythrocyte distribution width [Ratio] by Automated count 12.1 % 11.5 - 14.5 [facility] Platelets [#/volume] in Blood by Automated count 195 10^3/uL 150 - 45 0 [facility] Platelet mean volume [Entitic volume] in Blood by Automated count 9.2 fL 7.4 - 10.4 [facility] Neutrophils/100 leukocytes in Blood by Automated count 56.2 % 37. 0 - 80.0 [facility] Lymphocytes/100 leukocytes in Blood by Manual count 36.0 % 25.0 - 40.0 [facility] Monocytes/100 leukocytes in Blood by Automated count 6.0 % 3.0 - 8.0 [facility] Eosinophils/100 leukocytes in Blood by Automated count 1.2 % 0.0 - 7.0 [facility] Basophils/100 leukocytes in Blood by Automated count 0.3 % 0.0 - 2.5 [facility] %IG 0.3 % 0.0 - 0.0 H [facility] Hospit al %NRBC 0.0 % 0.0 - 0.0 [facility] al Neutrophils [#/volume] in Blood by Automated count 3.28 10^3/uL 2.00 - 6.90 [facility] Lymphocytes [#/volume] in Blood by Automated count 2.10 10^3/uL 0.60 - 3.40 [facility] Monocytes [#/volume] in Blood by Automated count 0.35 10^3/uL 0.00 - 0.90 [facility] Eosinophils [#/volume] in Blood by Automated count 0.07 10^3/uL 0.00 - 0.70 [facility] Basophils [#/volume] in Blood by Automated count 0.02 10^3/uL 0.00 - 0.20 [facility] #IG 0.02 10^3/uL 0.00 - 0.10 [facility] ospital #NRBC 0.00 10^3/uL 0.00 - 0.00 [facility] ospital MANUAL DIFF NOT INDICATED [facility] RBC MORPH NOT INDICATED [facility] Ho spital ID Date Data Source [id number] 04/26/2019 05:32:00 PM EST [facility] Name Value Range Interpretation Code Description Data Corrie rce(s) Supporting Document(s) [facility]IS [facility] URINALYSIS SOURCE Clean Catch [facility] Hosp ital COLOR yellow NORMAL: Yellow [facility] H ospital CLARITY clear NORMAL: Clear [facility] Ho spital Specific gravity of Urine by Test strip 1.030 1.001 - 1.030 [facility] pH 5 5 - 9 [facility] Glucose [Mass/volume] in Urine by Test strip NORM NORMAL: Negat sy [facility] Bilirubin.total [Presence] in Urine by Test strip NEG NORMAL: Negative [facility] Ketones [Presence] in Urine by Test strip 5 NORMAL: Negative [facility] Protein [Mass/volume] in Urine by Test strip 15 NORMAL: Negat [facility] Nitrite [Presence] in Urine by Test strip NEG NORMAL: Negative [facility] BLOOD 25 NORMAL: Negative [facility] Leukocyte esterase [Presence] in Urine by Test strip 25 STORMY L: Negative [facility] Urobilinogen [Mass/volume] in Urine by Test strip NOR less sapphire n 1.0 mg/dL [facility] MICROSCOPIC See Below [facility] ital WBC 1 - 3 NORMAL: NONE SEEN [facility] Erythrocytes [#/volume] in Urine by Test strip 1 - 3 NORMAL: NON E SEEN [facility] EPITHELIAL FEW NORMAL: NONE SEEN [facility] Mucus [Presence] in Urine sediment by Light microscopy Trace NORMAL: NONE SEEN [facility] ID Date Data Source [id number] 04/25/2019 10:48:52 PM [facility] Name Value Range Interpretation Code Description Data Corrie rce(s) Supporting Document(s) Progress Note [facility] [id number] lbm [file] [id number] ID Date Data Source [id number] 04/25/2019 10:48:47 PM [facility] Name Value Range Interpretation Code Description Data Corrie rce(s) Supporting Document(s) Progress Note [facility] [id number] lbm [file] [id number] ID Date Data Source [id number] 04/22/2019 02:18:59 PM [facility] Name Value Range Interpretation Code Description Data Corrie rce(s) Supporting Document(s) Leukocytes [#/volume] in Blood by Automated count 6.9 10*3/uL 4-10 [facility] Erythrocytes [#/volume] in Blood by Automated count 4.88 10*6/uL 4.1- 5.3 [facility] Hemoglobin [Mass/volume] in Blood 14.1 g/dL 11.5-15.5 [facility] Hematocrit [Volume Fraction] of Blood by Automated count 42.9 % 3 6-45 [facility] Erythrocyte mean corpuscular volume [Entitic volume] by Auto mated count 88.0 fL 80-96 [facility] Erythrocyte mean corpuscular hemoglobin [Entitic mass] by Automated count 29.0 pg 27-33 [facility] Erythrocyte mean corpuscular hemoglobin concentration [Mass/volume] by Automated count 33.0 g/dL 32.0-36.0 [facility] E[facility]th[facility] distribution width [Ratio] by Automated count 13.1 % 11.5-14.5 [facility] Platelets [#/volume] in Blood by Automated count 234 10*3/uL 150-400 [facility] Differential cell count method - Blood [facility] Neutrophils/100 leukocytes in Blood by Automated count 71 % [facility] Lymphocytes/100 leukocytes in Blood by Automated count 22 % [facility] Monocytes/100 leukocytes in Blood by Automated count 5 % [facility] Eosinophils/100 leukocytes in Blood by Automated count 1 % [facility] Basophils/100 leukocytes in Blood by Automated count 1 % [facility] Neutrophils [#/volume] in Blood by Automated count 4.90 10*3/uL 1.8-7 .0 [facility] Lymphocytes [#/volume] in Blood by Automated count 1.54 10*3/uL 1.2-4 .0 [facility] Monocytes [#/volume] in Blood by Automated count 0.34 10*3/uL 0-0.8 [facility] Eosinophils [#/volume] in Blood by Automated count 0.06 10*3/uL 0-0.5 [facility] Basophils [#/volume] in Blood by Automated count 0.05 10*3/uL 0-0.2 [facility] Nucleated erythrocytes/100 leukocytes [Ratio] in Blood by Automated count 0 /100{WBCs} 0-0 [facility] ID Date Data Source [id number] 04/22/2019 03:10:46 PM [facility] Name Value Range Interpretation Code Description Data Corrie rce(s) Supporting Document(s) Lactate dehydrogenase [Enzymatic activit y/volume] in Serum or Plasma by Lactate to pyruvate reaction 172 U/L 122-214 [facility] ID Date Data Source [id number] 04/22/2019 03:10:46 PM [facility] Name Value Range Interpretation Code Description Data Corrie rce(s) Supporting Document(s) Albumin [Mass/volume] in Serum or Plasma by Bromocresol green (BCG) dye binding method 4.6 g/dL 3.5-5.2 [facility] Bilirubin.total [Mass/volume] in Serum or Plasma 0.3 mg/dL <1.2 [facility] Calcium [Mass/volume] in Serum or Plasma 9.2 mg/dL 8.6-10.0 [facility] Chloride [Moles/volume] in Serum or Plasma 102 mmol/L 98-107 [facility] Creatinine [Mass/volume] in Serum or Plasma 0.86 mg/dL 0.50-0.90 [facility] Glucose [Mass/volume] in Serum or Plasma 98 mg/dL 70-140 [facility] Alkaline phosphatase [Enzymatic activity/volume] in Serum or Plasma 59 U/L 35-104 [facility] Potassium [Moles/volume] in Serum or Plasma 4.1 mmol/L 3.4-5.1 [facility] Protein [Mass/volume] in Serum or Plasma 7.5 g/dL 6.4-8.3 [facility] Sodium [Moles/volume] in Serum or Plasma 139 mmol/L 136-145 [facility] Aspartate aminotransferase [Enzymatic activity/volume] in Serum or Plasma 15 U/L <32 [facility] Urea nitrogen [Mass/volume] in Serum or Plasma 17 mg/dL 6-20 [facility] Osmolality of Serum or Plasma by calculation 289 mosm/kg 275-300 [facility] Creatinine/Urea nitrogen [Mass Ratio] in Serum or Plasma 19 [facility] Bicarbonate [Moles/volume] in Serum 22 mmol/L 22-29 [facility] Alanine aminotransferase [Enzymatic activity/volume] in Seru m or Plasma 11 U/L <33 [facility] Anion gap 3 in Serum or Plasma 14 mmol/L 8-15 [facility] Albumin/Globulin [Mass Ratio] in Serum or Plasma 1.6 [facility] Glomerular filtration rate/1.73 sq M pre dicted among non-blacks [Volume Rate/Area] in Serum or Plasma by Creatinine-based formula (MDRD) >6 0 [facility] Glomerular filtration rate/1.73 sq M pre dicted among blacks [Volume Rate/Area] in Serum or Plasma by Creatinine-based formula (MDRD) >60 [facility] ID Date Data Source [id number] 03/13/2019 11:26:00 AM EST [facility] ([facility] [employer]) Name Value Range Interpretation Code Description Data Corrie rce(s) Supporting Document(s) Appearance, Urine CLOUDY Above high normal [facility] NT ([facility] [employer]) Color, Urine YELLOW [facility] ([facility] [employer]) PH,Urine 5.0 units 5.0-9.0 [facility] ([facility] [employer]) Protein, Urine Auto NEGATIVE mg/dL [facility] T ([facility] [employer]) Specific [place] Urine Auto 1.021 1.002-1.035 [facility] ([facility] [employer]) Glucose, Urine (Ua) Auto NEGATIVE mg/dL [facility] ([facility] [employer]) Urobilinogen, Urine Auto 0.2 mg/dL 0.0-2.0 [facility] T ([facility] [employer]) Ketone, Urine Auto NEGATIVE mg/dL [facility] ([facility] [employer]) Bilirubin, Urine Auto NEGATIVE [facility] ( [facility] [employer]) Nitrite, Urine Auto NEGATIVE [facility] ([facility] [employer]) Leukocyte Esterase, Urine Auto 3+ Above high stormy l [facility] ([facility] [employer]) RBC, Urine Auto 6 /HPF 0-3 Above high normal [facility] ([facility] [employer]) Blood, Urine Blood NEGATIVE [facility] ([facility] [employer]) WBC, Urine Auto 11 /HPF 0-3 Above high normal [facility] ([facility] [employer]) Squamous Epithelial Cell Ur AU 16 /HPF 0-6 [facility] ([facility] [employer]) Hyaline Cast, Urine Auto 0 /LPF 0-1 [facility] T ([facility] [employer]) Bacteria, Urine Auto 2+ Above high normal [facility] ([facility] [employer]) ID Date Data Source [id number] 03/13/2019 11:26:00 AM EST [facility] ([facility] [employer]) Name Value Range Interpretation Code Description Data Corrie rce(s) Supporting Document(s) Urine Culture Result NO GROWTH [facility] ([facility] [employer]) <External Comment eCWMed> FULL REPORT IN L <SEE NOTE> [facility] ([facility] [employer]) FULL REPORT IN LAB NOTES ([facility]CW and [facility] ). Procedure Social History Code Duration Value Status Description Data Source(s ) Smoking 04/01/2020 12:00:00 AM EST Patient has never smoked co mpleted Patient has never smoked [facility] ([facility] ) Smoking 03/27/2020 12:00:00 AM EST Never Smoker completed Never S moker eCW1 ([facility]) Smoking 03/27/2020 12:00:00 AM EST Never Smoker completed Never S moker eCW1 ([facility]) Smoking 03/27/2020 12:00:00 AM EST Never Smoker completed Never S moker eCW1 ([facility]) Smoking 03/25/2020 12:00:00 AM EST Non-smoker, Non-drink er, Non-drug User completed Non-smoker, Non-drinker, Non-drug User [facility] ([facility] [employer]) Alcohol intake 03/18/2020 12:00:00 AM EST Ex-drinker (finding) comp leted Ex- drinker (finding) [facility] Tobacco use and exposure 03/18/2020 12:00:00 AM EST Never used co mpleted Never used [facility] Smoking 03/18/2020 12:00:00 AM EST Never smoker completed Never s [facility] Smoking 02/25/2020 12:00:00 AM EST Never Smoker completed Never S moker eCW1 ([facility]) Smoking 01/29/2020 06:23:00 PM EDT Denies Ever Smoked complete d Denies Ever Smoked [facility] Alcohol intake 01/25/2020 12:00:00 AM EDT Current non-d kumar of alcohol (finding) completed Current non-drinker of alcohol (finding) [facility] Smoking 01/20/2020 12:00:00 AM EDT Never Smoker completed Never S moker eCW1 ([facility]) Smoking 01/20/2020 12:00:00 AM EDT Never Smoker completed Never S moker eCW1 ([facility]) Smoking 01/20/2020 12:00:00 AM EDT Never Smoker completed Never S moker eCW1 ([facility]) Smoking 01/11/2020 12:00:00 AM EDT Unknown if ever smoked comp leted Unknown if ever smoked [facility] Alcohol intake 01/06/2020 12:00:00 AM EDT Current non-d kumar of alcohol (finding) completed Current non-drinker of alcohol (finding) [facility] Alcohol intake 11/05/2019 12:00:00 AM EDT Current non-d kumar of alcohol (finding) completed Current non-drinker of alcohol (finding) [facility] Smoking 11/05/2019 12:00:00 AM EDT Never smoker completed Never s [facility] Smoking 09/11/2019 12:00:00 AM EDT Never Smoked Cigarettes com pleted Never Smoked Cigarettes [facility] ([facility]) Alcohol intake 08/07/2019 12:00:00 AM EDT Current non-d kumar of alcohol (finding) completed Current non-drinker of alcohol (finding) [facility] Smoking 08/07/2019 12:00:00 AM EDT Never smoker completed Never s [facility] Smoking 08/02/2019 12:00:00 AM EDT Never Smoker completed Never S moker eCW1 ([facility]) Smoking 08/02/2019 12:00:00 AM EDT Never Smoker completed Never S moker eCW1 ([facility]) Alcohol intake 04/25/2019 12:00:00 AM EST Current non-d kumar of alcohol (finding) completed Current non-drinker of alcohol (finding) [facility] Smoking 04/25/2019 12:00:00 AM EST Never smoker completed Never s [facility] Vital Signs ID Date Data Source UNK Name Value Range Interpretation Code Description Data Source(s) Body surface area Derived from formula 1.75 m2 1.75 m2 [facility] ([facility]) Body weight 69.854 kg 69.854 kg [facility] ([facility]) [place] body weight 120 [lb_av] 120 [lb_av] MED[facility] T ([facility]) Body mass index (BMI) [Ratio] 26.4 kg/m2 26.4 k g/m2 [facility] ([facility]) Body weight 154.00 [lb_av] 154.00 [lb_av] [facility] Body height 64 [in_i] 64 [in_i] [facility] ([facility]) 5'4" Oxygen saturation in Arterial blood by Pulse oximetry 99 % 99 % [facility] ([facility]) Heart rate 103 /min 103 /min [facility] ([facility]) Diastolic blood pressure 80 mm[Hg] 80 mm[Hg] [facility] ([facility]) Systolic blood pressure 120 mm[Hg] 120 mm[facility]Hg] [facility] Diastolic blood pressure 66 mm[Hg] 66 mm[Hg] eCW1 ([facility]) Systolic blood pressure 100 mm[Hg] 100 mm[Hg] e CW1 ([facility]) Body temperature 97.4 [degF] 97.4 [degF] eCW1 ( [facility]) Respiratory rate 18 /min 18 /min eCW1 ([facility]) Heart rate 111 /min 111 /min eCW1 ([facility]) Body mass index (BMI) [Ratio] 26.12 kg/m2 26.12 kg/m2 [facility] ([facility]) Body height 65 [in_i] 65 [in_i] eCW1 ([facility]) Body weight 157 [lb_av] 157 [lb_av] eCW1 ([facility]) Diastolic blood pressure 66 mm[Hg] 66 mm[Hg] [facility] Systolic blood pressure 104 mm[Hg] 104 mm[Hg] M EDENT ([facility] [employer] [facility]) Body surface area Derived from formula 1.76 m2 1.76 m2 [facility] ([facility]) Body weight 70.535 kg 70.535 kg [facility] ([facility]) [place] body weight 120 [lb_av] 120 [lb_av] [facility] T ([facility]) Body mass index (BMI) [Ratio] 26.7 kg/m2 26.7 k g/m2 [facility] ([facility]) Body weight 155.50 [lb_av] 155.50 [lb_av] [facility] Body height 64 [in_i] 64 [in_i] [facility] ([facility]) 5'4" Oxygen saturation in Arterial blood by Pulse oximetry 98 % 98 % [facility] ([facility]) Heart rate 89 /min 89 /min [facility] ([facility]) Diastolic blood pressure 78 mm[Hg] 78 mm[Hg] [facility] ([facility]) Systolic blood pressure 116 mm[Hg] 116 mm[Hg] M [facility] ([facility]) Diastolic blood pressure 56 mm[Hg] 56 mm[Hg] [facility] Systolic blood pressure 116 mm[Hg] 116 mm[Hg] [facility] [employer] Diastolic blood pressure 62 mm[Hg] 62 mm[Hg] eCW1 ([facility]) Systolic blood pressure 100 mm[Hg] 100 mm[Hg] e CW1 ([facility]) Body temperature 97.9 [degF] 97.9 [degF] eCW1 ( [facility]) Respiratory rate 18 /min 18 /min eCW1 ([facility]) Heart rate 106 /min 106 /min eCW1 ([facility]) Body mass index (BMI) [Ratio] 25.06 kg/m2 25.06 kg/m2 eCW1 ([facility]) Body height 65 [in_i] 65 [in_i] eCW1 ([facility]) Body weight 150.6 [lb_av] 150.6 [lb_av] eCW1 ([facility]) Diastolic blood pressure 60 mm[Hg] 60 mm[Hg] [facility] ([facility]) Systolic blood pressure 106 mm[Hg] 106 mm[Hg] M EDENT ([facility] [employer] [facility]) Body temperature 36.8 shruthi Normal (applies to non-numeric results) 36.8 shruthi [facility] Respiratory rate 16 min Normal (applies to non-numeric results) 16 min [facility] Deprecated Oxygen saturation in Capillary blood by Oximetry 100 % Normal (applies to non-numeric results) 100 % [facility] Heart rate 99 min Normal (applies to non-numeric resul ts) 99 min [facility] Diastolic blood pressure 91 mm[Hg] Normal (applies to non-numeric results) 91 mm[Hg] [facility] Systolic blood pressure 140 mm[Hg] Normal (applies t o non-numeric results) 140 mm[Hg] [facility] Body mass index (BMI) [Ratio] 24.3 kg/m2 No rmal (applies to non-numeric results) 24.3 kg/m2 [facility] Body weight Measured 142 [lb_av] Normal (applies to n on-numeric results) 142 [lb_av] [facility] Body height 162.1536 cm Normal (applies to non-numeric res ults) 162.1536 cm [facility] Diastolic blood pressure 58 mm[Hg] 58 mm[Hg] eCW1 ([facility]) Systolic blood pressure 96 mm[Hg] 96 mm[Hg] e CW1 ([facility]) Body temperature 96.8 [degF] 96.8 [degF] eCW1 ( [facility]) Respiratory rate 18 /min 18 /min eCW1 ([facility]) Heart rate 104 /min 104 /min eCW1 ([facility]) Body mass index (BMI) [Ratio] 25.62 kg/m2 25.62 kg/m2 W1 ([facility]) Body height 65 [in_i] 65 [in_i] eCW1 ([facility]) Body weight 154 [lb_av] 154 [lb_av] eCW1 ([facility]) Oxygen saturation in Arterial blood by Pulse oximetry 98 % 98 % [facility] ([facility]) Body mass index (BMI) [Ratio] 28.2 kg/m2 28.2 k g/m2 [facility] ([facility]) Body weight 172.38 [lb_av] 172.38 [lb_av] MED[facility] T ([facility]) Body height 65.5 [in_i] 65.5 [in_i] [facility] ([facility]) 5'5.50" Heart rate 112 /min 112 /min [facility] ([facility]) Diastolic blood pressure 62 mm[Hg] 62 mm[Hg] [facility] ([facility]) Systolic blood pressure 110 mm[Hg] 110 mm[Hg] M EDENT ([facility]) Oxygen saturation in Arterial blood by Pulse oximetry 96 % 96 % [facility] ([facility]) Body mass index (BMI) [Ratio] 28.4 kg/m2 28.4 k g/m2 [facility] ([facility]) Body weight 173.38 [lb_av] 173.38 [lb_av] [facility] T ([facility]) Body height 65.5 [in_i] 65.5 [in_i] [facility] ([facility]) 5'5.50" Heart rate 103 /min 103 /min [facility] ([facility]) Diastolic blood pressure 68 mm[Hg] 68 mm[Hg] [facility] ([facility]) Systolic blood pressure 110 mm[Hg] 110 mm[Hg] M EDENT ([facility]) Diastolic blood pressure 78 mm[Hg] 78 mm[Hg] eCW1 ([facility]) Systolic blood pressure 122 mm[Hg] 122 mm[Hg] e CW1 ([facility]) Body temperature 99.3 [degF] 99.3 [degF] eCW1 ( [facility]) Heart rate 104 /min 104 /min eCW1 ([facility]) Body mass index (BMI) [Ratio] 29.62 kg/m2 29.62 kg/m2 eCW1 ([facility]) Body height 65 [in_us] 65 [in_us] eCW1 ([facility]) Body weight Measured 178 [lb_av] 178 [lb_av] eC W1 ([facility]) Diastolic blood pressure 68 mm[Hg] 68 mm[Hg] [facility] ([facility] [employer] [facility] [facility]) Systolic blood pressure 108 mm[Hg] 108 mm[Hg] M EDENT ([facility] [employer] [facility] [facility]) Diastolic blood pressure 72 mm[Hg] 72 mm[Hg] [facility] ([facility] [employer] [facility] [facility]) Systolic blood pressure 112 mm[Hg] 112 mm[Hg] M EDENT ([facility] [employer] [facility] [facility]) Diastolic blood pressure 62 mm[Hg] 62 mm[Hg] eCW1 ([facility]) Systolic blood pressure 118 mm[Hg] 118 mm[Hg] e CW1 ([facility]) Body temperature 97 [degF] 97 [degF] eCW1 ([facility]) Respiratory rate 18 /min 18 /min eCW1 ([facility]) Heart rate 110 /min 110 /min eCW1 ([facility]) Body mass index (BMI) [Ratio] 28.95 kg/m2 28.95 kg/m2 eCW1 ([facility]) Body height 65 [in_us] 65 [in_us] eCW1 ([facility]) Body weight Measured 174 [lb_av] 174 [lb_av] eC W1 ([facility]) Diastolic blood pressure 64 mm[Hg] 64 mm[Hg] [facility] ([facility] [employer] [facility] [facility]) Systolic blood pressure 116 mm[Hg] 116 mm[Hg] M EDENT ([facility] [employer] [facility] [facility]) Diastolic blood pressure 70 mm[Hg] 70 mm[Hg] eCW1 ([facility]) Systolic blood pressure 120 mm[Hg] 120 mm[Hg] e CW1 ([facility]) Body temperature 97.7 [degF] 97.7 [degF] eCW1 ( [facility]) Respiratory rate 18 /min 18 /min eCW1 ([facility]) Heart rate 101 /min 101 /min eCW1 ([facility]) Body mass index (BMI) [Ratio] 27.95 kg/m2 27.95 kg/m2 eCW1 ([facility]) Body height 65 [in_us] 65 [in_us] eCW1 ([facility]) Body weight Measured 168 [lb_av] 168 [lb_av] eC W1 ([facility]) Diastolic blood pressure 70 mm[Hg] 70 mm[Hg] [facility] ([facility]) Systolic blood pressure 100 mm[Hg] 100 mm[Hg] M EDENT ([facility] [employer] [facility]) ID Date Data Source [id number] 03/30/2020 01:33:45 AM [facility] Name Value Range Interpretation Code Description Data Source(s) Body height Measured 64.5 in 64.5 in [facility] ID Date Data Source [id number] 01/29/2020 09:08:53 PM [facility] Name Value Range Interpretation Code Description Data Source(s) TRANSFER FROM [facility] ID Date Data Source [id number] 01/28/2020 07:27:58 PM [facility] Name Value Range Interpretation Code Description Data Source(s) WEIGHT RECORDED 140 lb 140 lb [facility] Body height Measured 67.99 in 67.99 in [facility] ID Date Data Source [id number] 01/16/2020 01:09:59 AM [facility] Name Value Range Interpretation Code Description Data Source(s) Body height Measured 67.99 in 67.99 in [facility] WEIGHT RECORDED 180.56 lb 180.56 lb [facility] ID Date Data Source [id number] 01/18/2020 08:29:15 AM [facility] Name Value Range Interpretation Code Description Data Source(s) WEIGHT RECORDED 159.2 lb 159.2 lb [facility] ID Date Data Source [id number] 11/06/2019 12:13:11 AM [facility] Name Value Range Interpretation Code Description Data Source(s) WEIGHT RECORDED 160 lb 160 lb [facility] Body height Measured 64.5 in 64.5 in [facility] ID Date Data Source [id number] 08/08/2019 07:00:00 PM [facility] Name Value Range Interpretation Code Description Data Source(s) WEIGHT RECORDED 170 lb 170 lb [facility] ID Date Data Source [id number] 04/25/2019 10:48:52 PM [facility] Name Value Range Interpretation Code Description Data Source(s) WEIGHT RECORDED 170.6 lb 170.6 lb [facility] Patient Treatment Plan of Care Planned Activity Planned Date Details Description Data Source (s) lamotrigine 200 MG Oral Tablet 03/18/2020 12:00:00 AM [facility] Levetiracetam 750 MG Oral Tablet 03/18/2020 12:00:00 AM [facility] POLYETHYLENE GLYCOL 3350 142 MG/ML Oral Solution 02/21/2020 12:00:0 0 AM [facility] Acetaminophen 325 MG / Oxycodone Hydrochloride 5 MG Or al Tablet 02/20/2020 12:00:00 AM [facility] NITROFURANTOIN, MACROCRYSTALS 25 MG / Ni trofurantoin, Monohydrate 75 MG Oral Capsule 02/20/2020 12:00:00 AM [facility] Acetaminophen 325 MG / Hydrocodone Bitartrate 5 MG Ora l Tablet 02/14/2020 12:00:00 AM [facility] Magnesium Hydroxide 80 MG/ML Oral Suspension 01/13/2020 10:00:00 PM [facility] Bisacodyl 10 MG Rectal Suppository 01/13/2020 07:45:55 AM [facility] 8.6 MG Oral Tablet 01/13/2020 07:45:55 AM [facility] 35.2 MG/ML Oral Solution 01/13/2020 07:45:55 AM [facility] ondansetron (ZOFRAN) 4 MG/2ML injection 01/11/2020 08:06:55 PM [facility] Levothyroxine Sodium 0.2 MG Oral Tablet [Synthroid] 10/07/19 12:00:00 AM [facility] Levetiracetam 750 MG Oral Tablet 08/07/2019 12:00:00 AM [facility] lamotrigine 200 MG Oral Tablet 08/07/2019 12:00:00 AM [facility] Levothyroxine Sodium 0.175 MG Oral Tablet 05/30/2019 12:00:00 AM ES T eCW1 ([facility]) Levothyroxine Sodium 0.15 MG Oral Tablet 03/26/2019 12:00:00 AM EST eCW1 ([facility]) Levetiracetam 750 MG Oral Tablet 10/08/2018 12:00:00 AM [facility] lamotrigine 200 MG Oral Tablet 10/08/2018 12:00:00 AM [facility] gabapentin 100 MG Oral Capsule [facility] Amitriptyline Hydrochloride 25 MG Oral Tablet [facility] Levetiracetam 750 MG Oral Tablet [facility] lamotrigine 200 MG Oral Tablet [facility] Levothyroxine Sodium 0.112 MG Oral Tablet [facility]
[2020-05-04] MEDS ORDERED: NS 1,000 ML IV ONE (02:45)
[2020-05-04] MEDS ORDERED: ONDANSETRON 4MG/2ML VIAL IV ONE (02:45)
[2020-05-04 02:52] LABS: BASO % 0.3 % (0.0-1.0); EOS # 0.1 10^3/uL (0.0-0.5); EOS % 1.4 % (0.0-3.0); HEMOGLOBIN 12.7 g/dl (12.0-15.5); LYMPH # 1.7 10^3/uL (1.5-5.0); LYMPH % 29.2 % (24.0-44.0); MEAN CORPUSCULAR HEMOGLOBIN 27.5 pg (27.0-33.0); MEAN CORPUSCULAR HGB CONC 31.8 g/dl (32.0-36.5); MEAN CORPUSCULAR VOLUME 86.6 fl (80.0-96.0); MONO # 0.5 10^3/uL (0.0-0.8); MONO % 7.9 % (0.0-5.0); NEUTROPHILS # 3.6 10^3/uL (1.5-8.5); PLATELET COUNT, AUTOMATED 210 10^3/uL (150-450); RED BLOOD COUNT 4.62 10^6/uL (4.00-5.40); WHITE BLOOD COUNT 5.8 10^3/uL (4.0-10.0)
[2020-05-04] MEDS ORDERED: ONDANSETRON 4 MG ORAL DISINTEGRATING TAB PO ONE (03:00)
[2020-05-04 03:06] LABS: INR 0.93; PROTHROMBIN TIME 12.7 SECONDS (12.5-14.3)
[2020-05-04 03:07] LABS: PARTIAL THROMBOPLASTIN TIME 26.6 SECONDS (24.2-38.5)
[2020-05-04 03:13] LABS: ALBUMIN 3.9 GM/DL (3.2-5.2); ALT/SGPT 15 U/L (12-78); AMYLASE 52 U/L (25-115); BILIRUBIN,DIRECT < 0.1 MG/DL (0.0-0.2); BILIRUBIN,TOTAL 0.3 MG/DL (0.2-1.0); BLOOD UREA NITROGEN 10 MG/DL (7-18); CALCIUM LEVEL 9.2 MG/DL (8.5-10.1); CARBON DIOXIDE LEVEL 26 MEQ/L (21-32); CHLORIDE LEVEL 107 MEQ/L (98-107); CREATININE FOR GFR 0.89 MG/DL (0.55-1.30); GLOMERULAR FILTRATION RATE > 60.0 (>60); GLUCOSE, FASTING 101 MG/DL (70-100); LIPASE 199 U/L (73-393); POTASSIUM SERUM 3.9 MEQ/L (3.5-5.1); SODIUM LEVEL 142 MEQ/L (136-145); TOTAL PROTEIN 7.5 GM/DL (6.4-8.2)
[2020-05-04] MEDS ORDERED: ONDANSETRON 4 MG TAB PO ONE (04:30)
--- OUTSIDE RECORDS SUMMARY | 2020-05-04 04:33 | CCD ---
Author Author [facility] Organization [facility] Address Unknown Phone Unavailable Care Team Providers Care [employer] Driver Name Role Phone Palak Seymour MD Unavailable [...] MD Unavailable Unavailable JOSE, ABILIO ROSA MARIA CASER-C Unavailable Unavailable JOSE, ABILIO ROSA MARIA CASER-C Unavailable Unavailable JOSE, ABILIO ROSA MARIA CASER-C Unavailable Unavailable JOSE, ABILIO ROSA MARIA CASER-C Unavailable Unavailable JOSE, ABILIO ROSA MARIA CASER-C Unavailable Unavailable JOSE, ABILIO ROSA MARIA CASER-C Unavailable Unavailable JOSE, ABILIO ROSA MARIA CASER-C Unavailable Unavailable JOSE, ABILIO ROSA MARIA CASER-C Unavailable Unavailable JOSE, ABILIO ROSA MARIA CASER-C Unavailable Unavailable JOSE, ABILIO ROSA MARIA CASER-C Unavailable Unavailable JOSE, ABILIO ROSA MARIA CASER-C Unavailable Unavailable JOSE, ABILIO ROSA MARIA CASER-C Unavailable Unavailable JOSE, ABILIO ROSA MARIA CASER-C Unavailable Unavailable JOSE, ABILIO ROSA MARIA CASER-C Unavailable Unavailable JOSE, ABILIO ROSA MARIA CASER-C Unavailable Unavailable [place], Artis Dyer PA-C Unavailable Unavailable [place], M Manisha PA-C Unavailable Unavailable [place], M Manisha PA-C Unavailable Unavailable COOK, B BOO RESTUARANT CREW WORKER Unavailable Unavailable COOK, B BOO RESTUARANT CREW WORKER Unavailable Unavailable COOK, B BOO RESTUARANT CREW WORKER Unavailable Unavailable COOK, B BOO RESTUARANT CREW WORKER Unavailable Unavailable COOK, B BOO RESTUARANT CREW WORKER Unavailable Unavailable COOK, B BOO RESTUARANT CREW WORKER Unavailable Unavailable COOK, B BOO RESTUARANT CREW WORKER Unavailable Unavailable COOK, B BOO RESTUARANT CREW WORKER Unavailable Unavailable COOK, B BOO RESTUARANT CREW WORKER Unavailable Unavailable COOK, B BOO RESTUARANT CREW WORKER Unavailable Unavailable COOK, B BOO RESTUARANT CREW WORKER Unavailable Unavailable COOK, B BOO RESTUARANT CREW WORKER Unavailable Unavailable COOK, B BOO RESTUARANT CREW WORKER Unavailable Unavailable COOK, B BOO RESTUARANT CREW WORKER Unavailable Unavailable COOK, B BOO RESTUARANT CREW WORKER Unavailable Unavailable COOK, B BOO RESTUARANT CREW WORKER Unavailable Unavailable COOK, B BOO RESTUARANT CREW WORKER Unavailable Unavailable COOK, B BOO RESTUARANT CREW WORKER Unavailable Unavailable COOK, B BOO RESTUARANT CREW WORKER Unavailable Unavailable COOK, B BOO RESTUARANT CREW WORKER Unavailable Unavailable COOK, B BOO RESTUARANT CREW WORKER Unavailable Unavailable COOK, B BOO RESTUARANT CREW WORKER Unavailable Unavailable COOK, B BOO RESTUARANT CREW WORKER Unavailable Unavailable COOK, B BOO RESTUARANT CREW WORKER Unavailable Unavailable COOK, B BOO RESTUARANT CREW WORKER Unavailable Unavailable COOK, B BOO RESTUARANT CREW WORKER Unavailable Unavailable COOK, B BOO RESTUARANT CREW WORKER Unavailable Unavailable COOK, B BOO RESTUARANT CREW WORKER Unavailable Unavailable COOK, B BOO RESTUARANT CREW WORKER Unavailable Unavailable COOK, B BOO RESTUARANT CREW WORKER Unavailable Unavailable COOK, B BOO RESTUARANT CREW WORKER Unavailable Unavailable COOK, B BOO RESTUARANT CREW WORKER Unavailable Unavailable COOK, B BOO RESTUARANT CREW WORKER Unavailable Unavailable COOK, B BOO RESTUARANT CREW WORKER Unavailable Unavailable COOK, B BOO RESTUARANT CREW WORKER Unavailable Unavailable COOK, B BOO RESTUARANT CREW WORKER Unavailable Unavailable COOK, B BOO RESTUARANT CREW WORKER Unavailable Unavailable COOK, B BOO RESTUARANT CREW WORKER Unavailable Unavailable COOK, B BOO RESTUARANT CREW WORKER Unavailable Unavailable COOK, B BOO RESTUARANT CREW WORKER Unavailable Unavailable COOK, B BOO RESTUARANT CREW WORKER Unavailable Unavailable COOK, B BOO RESTUARANT CREW WORKER Unavailable Unavailable COOK, B BOO RESTUARANT CREW WORKER Unavailable Unavailable COOK, B BOO RESTUARANT CREW WORKER Unavailable Unavailable COOK, B BOO RESTUARANT CREW WORKER Unavailable Unavailable COOK, B BOO RESTUARANT CREW WORKER Unavailable Unavailable COOK, B BOO RESTUARANT CREW WORKER Unavailable Unavailable COOK, B BOO RESTUARANT CREW WORKER Unavailable Unavailable COOK, B BOO RESTUARANT CREW WORKER Unavailable Unavailable COOK, B BOO RESTUARANT CREW WORKER Unavailable Unavailable COOK, B BOO RESTUARANT CREW WORKER Unavailable Unavailable COOK, B BOO RESTUARANT CREW WORKER Unavailable Unavailable COOK, B BOO RESTUARANT CREW WORKER Unavailable Unavailable COOK, B BOO RESTUARANT CREW WORKER Unavailable Unavailable COOK, B BOO RESTUARANT CREW WORKER Unavailable Unavailable COOK, B BOO RESTUARANT CREW WORKER Unavailable Unavailable COOK, B BOO RESTUARANT CREW WORKER Unavailable Unavailable COOK, B BOO RESTUARANT CREW WORKER Unavailable Unavailable COOK, B BOO RESTUARANT CREW WORKER Unavailable Unavailable COOK, B BOO RESTUARANT CREW WORKER Unavailable Unavailable COOK, B BOO RESTUARANT CREW WORKER Unavailable Unavailable COOK, B BOO RESTUARANT CREW WORKER Unavailable Unavailable COOK, B BOO RESTUARANT CREW WORKER Unavailable Unavailable COOK, B BOO RESTUARANT CREW WORKER Unavailable Unavailable IGOR, M CASTRO RESTUARANT CREW WORKER Unavailable Unavailable IGOR, M CASTRO RESTUARANT CREW WORKER Unavailable Unavailable IGOR, M CASTRO RESTUARANT CREW WORKER Unavailable Unavailable IGOR, M CASTRO RESTUARANT CREW WORKER Unavailable Unavailable IGOR, M CASTRO RESTUARANT CREW WORKER Unavailable Unavailable IGOR, M CASTRO RESTUARANT CREW WORKER Unavailable Unavailable IGOR, M CASTRO RESTUARANT CREW WORKER Unavailable Unavailable IGOR, M CASTRO RESTUARANT CREW WORKER Unavailable Unavailable IGOR, M CASTRO RESTUARANT CREW WORKER Unavailable Unavailable IGOR, M CASTRO RESTUARANT CREW WORKER Unavailable Unavailable IGOR, M CASTRO RESTUARANT CREW WORKER Unavailable Unavailable IGOR, M CASTRO RESTUARANT CREW WORKER Unavailable Unavailable IGOR, M CASTRO RESTUARANT CREW WORKER Unavailable Unavailable IGOR, M CASTRO RESTUARANT CREW WORKER Unavailable Unavailable IGOR, M CASTRO RESTUARANT CREW WORKER Unavailable Unavailable IGOR, M CASTRO RESTUARANT CREW WORKER Unavailable Unavailable IGOR, M CASTRO RESTUARANT CREW WORKER Unavailable Unavailable IGOR, M CASTRO RESTUARANT CREW WORKER Unavailable Unavailable IGOR, M CASTRO RESTUARANT CREW WORKER Unavailable Unavailable IGOR, M CASTRO RESTUARANT CREW WORKER Unavailable Unavailable IGOR, M CASTRO RESTUARANT CREW WORKER Unavailable Unavailable IGOR, M CASTRO RESTUARANT CREW WORKER Unavailable Unavailable IGOR, M CASTRO RESTUARANT CREW WORKER Unavailable Unavailable IGOR, M CASTRO RESTUARANT CREW WORKER Unavailable Unavailable IGOR, M CASTRO RESTUARANT CREW WORKER Unavailable Unavailable IGOR, M CASTRO RESTUARANT CREW WORKER Unavailable Unavailable IGOR, M CASTRO RESTUARANT CREW WORKER Unavailable Unavailable IGOR, M CASTRO RESTUARANT CREW WORKER Unavailable Unavailable IGOR, M CASTRO RESTUARANT CREW WORKER Unavailable Unavailable IGOR, M CASTRO RESTUARANT CREW WORKER Unavailable Unavailable IGOR, M CASTRO RESTUARANT CREW WORKER Unavailable Unavailable IGOR, M CASTRO RESTUARANT CREW WORKER Unavailable Unavailable Quezada, Xiangping Unavailable Unavailable Quezada, [...] is protected by Article 27-F of the [facility] Public Health law. If you continue you may have access to information: Regarding HIV / AIDS; Provided by facilities licensed or operated by the [facility] Office of Mental Health; or Provided by the [facility] Office for People With Developmental Disabilities. If such information is present, then the following [facility] mandated warning applies: This information [...] law may result in a fine or detention sentence or both. A general authorization for the release of medical or other information is NOT sufficient authorization for further disc losure. Allergies and Adverse Reactions Type Description Substance Reaction Status Data Source(s ) No Known Food Allergies No Known Food Allergies [facility] Drug allergy NOSE SPRAY NOSE SPRAY [facility] Drug allergy CT CONTRAST CT CONTRAST ANAPHYLAXIS [facility] CLASS CONTRAST MEDIA, IODINE RELATED CONTRAST MEDIA, I ODINE RELATED ANAPHYLAXIS [facility] BRANDNAME FENTANYL TRANSDERMAL SYSTEM FENTANYL TRANSDERMAL SYSTEM HI VES [facility] ENVIRONMENTAL LATEX LATEX [facility] Drug Class NO KNOWN ALLERGIES NO KNOWN ALLERGIES [facility] Drug allergy Fentanyl Fentanyl seizures Active eCW1 ([facility]) CT dye, contrast CT dye, contrast CT dye, contrast Anaphylaxis Acti ve eCW1 ([facility]) latex latex latex Anaphylaxis Active eCW1 ([facility]) latex latex latex Anaphylaxis Active eCW1 ([facility]) CT dye, contrast CT dye, contrast CT dye, contrast Anaphylaxis Acti ve eCW1 ([facility]) CT dye, contrast CT dye, contrast CT dye, contrast Anaphylaxis Acti ve eCW1 ([facility]) latex latex latex Anaphylaxis Active eCW1 ([facility]) Family History Family Member Name Family Member Gender Family Member Status Date o f Status Description Data Source(s) Unknown Female Problem MEDENT ([facility]) Encounters Encounter Providers Location Date Indications Data Source(s ) Outpatient Attender: NOELLE FONTENOT MD 01/11/2021 12:00:00 AM [facility] Unknown [address] [address] 04/28/2020 12:00:00 AM EST eCW1 ([facility]) Outpatient Attender: NOELLE FONTENOT MD 04/27/2020 12:00:00 AM [facility] Unknown [address] [address] 04/20/2020 12:00:00 AM EST eCW1 ([facility]) [place] [address] [address] 03/26/2020 12:00:00 AM EST eCW1 ([facility]) Outpatient Attender: Mariano Quezada [id number] 12:00:00 AM EST - 03/18/2020 08:34:34 AM EST 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, not intractable, without status epilepticus [facility] 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, not intractable, without status epilepticus Outpatient Attender: ROSA MARIA Kaye/Sindhu/Ron/Juwan hassan 03/03/2020 12:15:00 PM EST MEDENT ([facility]) Office Visit Attender: ELODIA Rivera Woman form builder helper 02/2020 09:00:00 AM EST [facility] ([facility] [place] [address] [address] 02/25/2020 12:00:00 AM EST eCW1 ([facility]) Office Visit Attender: ELODIA BAKER MD [facility] Woman form builder helper 07/2019 02:00:00 PM EST [facility] ([facility] [place] [address] [address] 02/19/2020 12:00:00 AM EST eCW1 ([facility]) Outpatient Attender: ELODIA BAKER MD [facility] Woman form builder helper 11:15:00 AM EDT [facility] ([facility] Emergency Attender: JESSEE Bonillaender: ER PHYSICIAN 01/29/2020 01:38:00 PM EDT - 01/29/2020 06:59:00 PM EDT ABDOMINAL PAIN AND SEIZURES [facility] ABDOMINAL PAIN AND SEIZURES Patient discharged. Outpatient Referrer: VAMSI NOVOA MD 01/29/2020 10: 36:00 AM EDT seizure disorder [facility] seizure disorder Emergency Attender: MANUELITO Rosassultant: Nargis marte MD 01/29/2020 06:03:00 AM EDT - 01/29/2020 11:59:00 AM EDT [facility] Patient discharged. Outpatient Attender: Manisha Conrad PA-C [facility] Internal Med a t Dana 01/29/2020 03:53:00 AM EDT MEDENT ([facility]) Outpatient Attender: Mariano Quezada [id number] 12:00:00 AM EDT - 01/28/2020 12:03:03 PM T [facility] Unknown [address] [address] 01/24/2020 12:00:00 AM EDT eCW1 ([facility]) [place] [address] [address] 01/20/2020 12:00:00 AM EDT eCW1 ([facility]) Unknown [address] [address] 01/15/2020 12:00:00 AM EDT eCW1 ([facility]) Inpatient Attender: RACH POWELL MDAttender: Sandoval Triplette MDAdmitter: Sandoval Seymour MDReferrer: Sandoval Seymour MDConsultant: Sandoval Seymour MD [id number] 01/11/2020 12:00:00 AM EDT - 01/14/2020 12:10:00 PM EDT Epilepsy, unspecified, not intractable, with status ep ilepticus [facility] Epilepsy, unspecified, not intractable, with status epilepticus Patient discharged. Outpatient Attender: NOELLE FONTENOT MD [id number] 12/17 12:00:00 AM EDT - 01/06/2020 10:20:34 AM EDT Hodgkin lymphoma, unspecified, unspecified site [facility] Hodgkin lymphoma, unspecified, unspecifi ed site Outpatient Referrer: GLEN NELSON MD A-[facility] 11/29/2019 02:0 3:00 AM EDT [facility] encephalitis Outpatient Attender: Mariano Quezada [id number] 020 12:00:00 AM EDT - 11/05/2019 01:01:40 PM EDT [address] [address] 09/26/2019 12:00:00 AM EDT [facility] [address] [address] 09/24/2019 12:00:00 AM EDT eCW1 ([facility]) Outpatient Attender: BOO HEAD RESTUARANT CREW WORKER Physical Therapy 09/11/2019 0 8:30:00 AM EDT MED[facility] ([facility]) [address] [address] 09/03/2019 12:00:00 AM EDT [facility] Outpatient Attender: BOO HEAD NP Physical Therapy 08/30/2019 1 0:45:00 AM EDT MED[facility] ([facility]) [address] [address] 08/27/2019 12:00:00 AM EDT [facility] [address] [address] 08/22/2019 12:00:00 AM EDT [facility] [address] [address] 08/20/2019 12:00:00 AM EDT [facility] Outpatient Attender: Mariano Quezada [id number] 12:00:00 AM EDT - 08/07/2019 03:31:04 PM EDT 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, not intractable, without status epilepticus [facility] 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, not intractable, without status epilepticus [address] [address] 08/02/2019 12:00:00 AM EDT eCW1 ([facility]) [address] [address] 07/29/2019 12:00:00 AM EDT eCW1 ([facility]) [address] [address] 07/29/2019 12:00:00 AM EDT eCW1 ([facility]) [address] [address] 07/29/2019 12:00:00 AM EDT eCW1 ([facility]) Outpatient Attender: ELODIA Rivera Woman form builder helper 01:00:00 PM EST [facility] ([facility]) [address] [address] 06/04/2019 12:00:00 AM EST [facility] [address] [address] 06/03/2019 12:00:00 AM EST [facility] [address] [address] 05/30/2019 12:00:00 AM EST eCW1 [facility] [address] [address] 05/30/2019 12:00:00 AM EST [facility] [address] [place] [address], [place] [address] 05/29/2019 12:00:00 AM EST [facility] [address] [address] 05/21/2019 12:00:00 AM EST [facility]) Outpatient 04/26/2019 06:05:00 PM EST [facility] Emergency Attender: VAMSI NOVOA MDConsultant: Nargis hayward MD 04/26/2019 04:04:00 PM EST - 04/26/2019 07:47:00 PM EST [facility] Patient discharged. [address] [address] 04/26/2019 12:00:00 AM EST [facility] [address] [address] 04/26/2019 12:00:00 AM EST [facility] Outpatient Attender: ELODIA Rivera Woman form builder helper 11/2019 01:45:00 PM EST [facility] ([facility]) [address] [address] 04/24/2019 12:00:00 AM EST [facility] Outpatient Attender: NOELLE FONTENOT MD 04/24/2019 12:00:00 AM [facility] Outpatient Attender: NOELLE FONTENOT MD [id number] 09/2019 12:00:00 AM EST - 04/22/2019 03:02:39 PM EST Hodgkin lymphoma, unspecified, unspecified site [facility] Hodgkin lymphoma, unspecified, unspecifi ed site [address] [address] 03/26/2019 12:00:00 AM EST eCW1 ([facility]) [facility] [address] [address] 03/25/2019 12:00:00 AM EST eCW1 ([facility]) Outpatient Attender: CASTRO COSTA NP [facility] 08/2018 08:15:00 AM EST [facility] ([facility]) Outpatient Attender: ELODIA Rivera Woman form builder helper 10:45:00 AM EST [facility] ([facility]) Immunizations Vaccine Date Status Description Data Source(s) New in 2011. IIV4 04/01/2020 12:40:00 PM EST completed MEDENT ([facility] ) Medications Medication Brand Name Start Date Product Form Dose Route Admi nistrative Instructions Pharmacy Instructions Status Indications Reaction Description Data Source(s) Levetiracetam 750 MG Oral Tablet levETIRAcetam 750 MG Oral Tablet (KEPPRA) levETIRAcetam 750 MG Oral Tablet (KEPPRA) 03/18/2020 12:00:00 AM EST 750 mg Oral active Take 1 tablet by tata th Two Times Daily [facility] lamotrigine 200 MG Oral Tablet lamoTRIgine 200 MG Oral Tablet (LaMICtal) lamoTRIgine 200 MG Oral Tablet (LaMICtal) 03/18/2020 12:00:00 AM EST 200 mg Oral active Nonintractable g eneralized idiopathic epilepsy without status epilepticus Take 1 tablet by mouth Two Times Daily [facility] Nonintractable generalized idiopathic ep ilepsy without status epilepticus POLYETHYLENE GLYCOL 3350 142 MG/ML Oral Solution Polyethylene Glycol 3350 17 GM/SCOOP Oral Powder (GLYCOLAX) Polyethylene Glycol 3350 17 GM/SCOOP Ora l Powder (GLYCOLAX) 02/21/2020 12:00:00 AM EST active MIX 17 GRAMS IN 8 OUNCES OF WATER OR JUICE AND TK PO D PRN FOR CONSTIPATION [facility] Acetaminophen 325 MG / Oxycodone Hydroch loride 5 MG Oral Tablet oxyCODONE- Acetaminophen 5-325 MG Oral Tablet (PERCOCET) oxyCODONE-Acetaminophen 5-325 MG Oral Tablet (PERCOCET) 02/20/2020 12:00:00 AM EST active TK 2 TS PO Q 4 H PRF PAIN. MDD [address] [place] [address] NITROFURANTOIN, MACROCRYSTALS 25 MG / Ni trofurantoin, Monohydrate 75 MG Oral Capsule Nitrofurantoin Monohyd Macro 100 MG Oral Capsule (MACROBID) Nitrofurantoin Monohyd Macro 100 MG Oral Capsule (MACROBID) 02/20/2020 12:00:00 AM EST active TK 1 C PO BID [facility] celecoxib 200 MG Oral Capsule [Celebrex] Celebrex 02/19/2020 12 :00:00 AM EST ORAL active [facility] ([facility] Acetaminophen 325 MG / Oxycodone Hydrochloride 5 MG Or al Tablet [Percocet] Percocet 02/18/2020 12:00:00 AM EST ORAL active [facility] ([facility] Acetaminophen 325 MG / Hydrocodone Mounika trate 5 MG Oral Tablet HYDROcodone- Acetaminophen 5-325 MG Oral Tablet (LORTAB) HYDROcodone-Acetaminophen 5-325 MG Oral Tablet (LORTAB) 02/14/2020 12:00:00 AM EDT active TK 2 TS PO Q 4 H PRF PAIN. MDD [address] [place] [address] Acetaminophen 325 MG / Hydrocodone Bitartrate 5 MG Oral Tabl et [Wallace] Wallace 02/11/2020 12:00:00 AM EDT ORAL completed [facility] ([facility]) Ibuprofen 600 MG Oral Tablet Ibuprofen 02/11/2020 12:00:00 AM EDT ORAL active [facility] ([facility] Magnesium Hydroxide 80 MG/ML Oral Suspen shanna magnesium hydroxide (MILK OF MAGNESIA) 400 MG/5ML suspension 45 mL magnesium hydroxide (MILK OF MAGNESIA) 4 00 MG/5ML suspension 45 mL 01/13/2020 10:00:00 PM EDT 45 mL Oral active 45 mL, Oral, Nightly, First dose on Mon01/13/20 at 2200, For 30 days
If serum creatinine > 2 notify provider before administering.
[facility] Medication administered onsite Docusate Sodium 100 MG Oral Capsule docusate sodium (C OLACE) capsule 100 mg docusate sodium (COLACE) capsule 100 mg 01/13/2020 09:00:00 AM EDT 100 mg Oral active 100 mg, Oral, 2 Times Daily, First dose on Mon01/13/20 at 0900, For 30 days [facility] Medication administered onsite sennosides, DETENTION 8.6 MG Oral Tablet senna tablet 2 tablet sen na tablet 2 tablet 01/13/2020 07:45:55 AM EDT 2 {tbl} Oral active 2 tablet, Oral, Nightly PRN, Constipation, Starting Mon01/13/20 at 0745, For 30 days [facility] Medication administered onsite sennosides, DETENTION 35.2 MG/ML Oral Solution senna (SENOKO T) syrup 10 mL senna (SENOKOT) syrup 10 mL 01/13/2020 07:45:55 AM EDT 10 mL Oral active 10 mL, Oral, Nightly PRN, Constipation, Starting Mon01/13/20 at 0745, For 30 days [facility] Medication administered onsite Bisacodyl 10 MG Rectal Suppository bisacodyl (DULCOLAX ) suppository 10 mg bisacodyl (DULCOLAX) suppository 10 mg 01/13/2020 07:45:55 AM EDT 10 mg Rectal active 10 mg, Rectal, Every 72 hours PRN, Constipation, Starting Mon01/13/20 at 0745, For 30 days
Hold if patient has had BM within the past 2 days.
[facility] Medication administered onsite magnesium sulfate in dextrose 5 % infusion (premix) 1 g [id number] [id number] 01/13/2020 04:00:00 AM EDT 1 g Intravenous completed 1 g, Intravenous, Administer over 60 Minutes, Once, Mon01/13/20 at 0400, For 1 dose [facility] Medication administered onsite 2 ML Metoclopramide 5 MG/ML Prefilled Sy ringe metoclopramide (REGLAN) injection 10 mg metoclopramide (REGLAN) injection 10 mg 01/13/2020 04:00:00 AM E DT 10 mg Intravenous completed 10 mg, I ntravenous, Once, Mon01/13/20 at 0400, For 1 dose [facility] Medication administered onsite Loratadine 10 MG Oral Tablet loratadine (CLARITIN) tab let 10 mg loratadine (CLARITIN) tablet 10 mg 01/13/2020 04:00:00 AM EDT 10 mg Oral completed 10 mg, Oral, Once, Mon01/13/20 at 0400, For 1 dose [facility] Medication administered onsite Melatonin 5 MG Oral Tablet melatonin tablet 5 mg melatonin t ablet 5 mg 01/13/2020 02:30:00 AM EDT 5 mg Oral completed 5 mg, Oral, Once, Mon01/13/20 at 0230, For 1 dose [facility] Medication administered onsite Acetaminophen 10 MG/ML Injectable Soluti on acetaminophen (OFIRMEV) infusion 1,000 mg acetaminophen (OFIRMEV) infusion 1,000 mg 01/13/2020 01:45:00 AM EDT 1000 mg Intravenous completed 1,000 mg , Intravenous, Administer over 15 Minutes, Once, Mon01/13/20 at 0145, For 1 dose
Maximum dose 3 gm daily from all sources
[facility] Medication administered onsite Metoprolol Tartrate 25 MG Oral Tablet me toprolol tartrate (LOPRESSOR) tablet 25 mg metoprolol tartrate (LOPRESSOR) tablet 25 mg 01/13/2020 12:00:00 AM EDT 25 mg Oral completed 25 mg, Oral, Once, Mon01/13/20 at 0000, For 1 dose [facility] Medication administered onsite pantoprazole 40 MG Delayed Release Oral Tablet pantoprazole (PROTONIX) EC tablet 40 mg pantoprazole (PROTONIX) EC tablet 40 mg 01/12/2020 09:45:00 PM E DT 40 mg Oral active 40 mg, Ora l, Daily Standard, First dose on 01/12/20 at 2145, For 30 days
Do not crush or chew
[facility] Medication administered onsite alginic acid 200 MG / Calcium Carbonate 80 MG / magnesium trisilicate 20 MG / Sodium Bicarbonate 70 MG Oral Tablet calcium carbonate (TUMS) chewable tablet 500 mg calcium carbonate (TUMS) chewable tablet 500 mg 2019 09:37:32 PM EDT 500 mg Oral active 500 mg, Oral, Three Times Daily-PRN, Indigestion, Heartburn, Starting 01/12/20 at 2137, For 30 days [facility] Medication administered onsite Famotidine 8 MG/ML Oral Suspension famot idine (PEPCID) 40 MG/5ML oral suspension 20 mg famotidine (PEPCID) 40 MG/5ML oral suspension 20 mg 09:00:00 PM EDT 20 mg Oral active 20 mg, O ral, 2 Times Daily, First dose on 01/12/20 at 2100, For 30 days
Tablet order changed to suspension due to backorder on tablets
[facility] Medication administered onsite sodium chloride 0.9 % bolus 500 mL 01/12/2020 08:15:00 PM EDT 500 mL Intravenous completed 500 mL, Intravenous, Once, [place] 01/12/20 at 2015, For 1 dose [facility] Medication administered onsite 1 ML Ketorolac Tromethamine 15 MG/ML Car tridge ketorolac (TORADOL) 15 MG/ML injection 15 mg ketorolac (TORADOL) 15 MG/ML injection 15 mg 0 09:45:00 AM EDT 15 mg Intravenous completed 15 mg, Intravenous, Once, Pettus 01/12/20 at 0945, For 1 dose [facility] Medication administered onsite 0.4 ML [...] hours after epidural catheter has been removed.
[facility] Medication administered onsite sodium chloride 0.9 % bolus 1,000 mL 01/12/2020 05:45: 00 AM EDT 1000 mL Intravenous completed 1,000 mL , Intravenous, Once, Pettus 01/12/20 at 0545, For 1 dose [facility] Medication administered onsite sodium chloride 0.9 % bolus 500 mL 01/12/2020 01:15:00 AM EDT 500 mL Intravenous completed 500 mL, Intravenous, Once, 01/12/20 at 0115, For 1 dose [facility] Medication administered onsite sodium chloride 0.9 % bolus 500 mL [id number] 01/11/2020 10:45:00 PM EDT 500 mL Intravenous completed 500 mL, Intravenous, Once, 01/11/20 at 2245, For 1 dose [facility] Medication administered onsite Levetiracetam 100 MG/ML Oral Solution le vETIRAcetam (KEPPRA) 100 MG/ML oral solution 750 mg levETIRAcetam (KEPPRA) 100 MG/ML oral solution 750 mg 01/11/2020 09:00:00 PM EDT 750 mg Per NG tube active 750 mg, Per NG tube, 2 Times Daily, First dose on 01/11/20 at 2100, For 30 days [facility] Medication administered onsite ondansetron (ZOFRAN) [...] 2022, For 7 doses [Order 2 End] [facility] Medication administered onsite ondansetron (ZOFRAN) 4 MG/2ML injection [id number] 01/11/20 08:06:55 PM EDT completed Starting Sat at 2005, For 1 dose
Brayan SANCHEZ : cabinet override
[facility] Medication administered onsite Acetaminophen 32 [...] mg from all sources in 24 hours.
[facility] Medication administered onsite propofol (DIPRIVAN) infusion 1,000 mg/100 mL [id number] 01/11/2020 01:45:00 PM EDT ug/kg/min Intravenous aborted 1 0-80 mcg/kg/min 81.9 kg (4.914-39.312 mL/hr, rounded to 4.9-39.3 mL/hr), Intravenous, at 4.9- 39.3 mL/hr, Continuous, Starting 01/11/20 at 1345, For 30 days
Starting dose = 10 mcg/kg/minTitrate to maintain RASS of -3 Increase by 5-10 mcg/kg/minMax Dose = 80 mcg/kg/min Titrate down if RASS of -3
[facility] Medication administered onsite dexmedetomidine (PRECEDEX) in NaCl 0.9 % infusion 4 mcg/mL 1 [id number] 01/11/2020 01:30:00 PM EDT ug/kg/h Intravenous aborted 0.1-1.5 mcg/kg/hr 81.9 kg (2.0475-30.7125 mL/hr, rounded to 2-30.7 mL/hr), Intravenous, at 2-30.7 mL/hr, Continuous, Starting 01/11/20 at 1330, For 30 days
Starting dose = 0.2 mcg/kg/hrTitrate to maintain RASS of -3 Titrate by 0.1-0.2 mcg/kg/hrMax Dose = 1.5 mcg/kg/hr Titrate down if RASS of -3
[facility] Medication administered onsite NaCl infusion 0.9 % [id number] 01/11/2020 12:45:00 PM EDT Intravenous aborted at 100 mL/hr, Intrav enous, Continuous, Starting 01/11/20 at 1245, For 30 days [facility] Medication administered onsite lamotrigine 100 MG Oral Tablet lamoTRIgine (LaMICtal) tablet 200 mg lamoTRIgine (LaMICtal) tablet 200 mg 01/11/2020 11:45:00 AM EDT 200 mg Oral active 200 mg, Oral, 2 Times Daily, First dose (after last reorder) on 01/11/20 at 1145, For 30 days [facility] Medication administered onsite Levetiracetam 750 MG Oral Tablet levETIRAcetam (KEPPRA ) tablet 750 mg levETIRAcetam (KEPPRA) tablet 750 mg 01/11/2020 10:30:00 AM EDT 750 m g Oral aborted 750 mg, Oral, 2 Times Daily, First dose on 01/11/20 at 1030, For 30 days [facility] Medication administered onsite propofol (DIPRIVAN) infusion 200 mg/20 mL [id number] 01/11/2020 09:00:00 AM EDT ug/kg/min Intravenous completed 10-80 mcg/kg/min 81.9 kg (4.914-39.312 mL/hr, rounded to 4.9-39.3 mL/hr), Intravenous, at 4.9- 39.3 mL/hr, Once, 01/11/20 at 0900, For 1 dose
Starting dose = 10 mcg/kg/minTitrate to maintain RASS of -2 Increase by 5-10 mcg/kg/minMax Dose = 80 mcg/kg/min Titrate down if RASS of 0
[facility] Medication administered onsite Levothyroxine Sodium 0.2 MG Oral Tablet [Synthroid] Synthroid 200 MCG Oral Tablet Synthroid 200 MCG Oral Tablet 10/07/2019 12:00:00 AM EDT 200 ug Oral aborted Take 200 mcg by mouth daily [facility] Levothyroxine Sodium 0.2 MG Oral Tablet [Synthroid] Synthroi d 09/11/2019 12:00:00 AM EDT ORAL active M [facility]ENT ([facility]) Levetiracetam 750 MG Oral Tablet levETIRAcetam 750 MG Oral Tablet (KEPPRA) levETIRAcetam 750 MG Oral Tablet (KEPPRA) 08/07/2019 12:00:00 AM EDT 750 mg Oral aborted Take 1 tablet by tata th Two Times Daily [facility] lamotrigine 200 MG Oral Tablet lamoTRIgine 200 MG Oral Tablet (LaMICtal) lamoTRIgine 200 MG Oral Tablet (LaMICtal) 08/07/2019 12:00:00 AM EDT 200 mg Oral aborted Nonintractable g eneralized idiopathic epilepsy without status epilepticus Take 1 tablet by mouth Two Times Daily [facility] Nonintractable generalized idiopathic ep ilepsy without status epilepticus Acetaminophen 325 MG / Hydrocodone Bitartrate 5 MG Oral Tabl et [Wallace] Wallace 06/11/2019 12:00:00 AM EST ORAL active [facility] ([facility] Ibuprofen 600 MG Oral Tablet Ibuprofen 06/11/2019 12:00:00 AM EST ORAL active [facility] ([facility] Levothyroxine Sodium 0.175 MG Oral Tablet Levothyroxin e Sodium 175 MCG Levothyroxine Sodium 175 MCG 05/30/2019 12:00:00 AM EST active 1 tablet in the morning on an empty stomach eCW1 ([facility]) gabapentin 100 MG Oral Capsule Gabapentin 04/24/2019 12:00:00 AM EST active [facility] ([facility] Metronidazole 500 MG Oral Tablet Metronidazole 04/24/2019 12:00:00 AM EST ORAL completed [facility] ([facility] Levothyroxine Sodium 0.15 MG Oral Tablet Levothyroxine Sodium 150 MCG Levothyroxine Sodium 150 MCG 03/26/2019 12:00:00 AM EST active 1 tablet in the morning on an empty stomach eCW1 ([facility]) Levothyroxine Sodium 0.15 MG Oral Tablet Levothyroxine Sodium 150 MCG Levothyroxine Sodium 150 MCG 03/26/2019 12:00:00 AM EST active 1 tablet in the morning on an empty stomach eCW1 ([facility]) 1 ML heparin sodium, porcine 60379 UNT/ML Injection Heparin Sodium (Porcine) 03/13/2019 12:00:00 AM EST completed [facility] ([facility] lamotrigine 200 MG Oral Tablet lamoTRIgine (LAMICTAL) 200 MG tablet lamoTRIgine (LAMICTAL) 200 MG tablet 10/08/2018 12:00:00 AM EDT 200 mg Oral aborted Nonintractable generalized idiopathic epilepsy without status epilepticus Take 1 tablet by mouth Two Times Daily [facility] Nonintractable generalized idiopathic ep ilepsy without status epilepticus Levetiracetam 750 MG Oral Tablet levETIRAcetam (KEPPRA ) 750 MG tablet levETIRAcetam (KEPPRA) 750 MG tablet 10/08/2018 12:00:00 AM EDT 750 m g Oral aborted Take 1 tablet by mouth Two T imes Daily [facility] Amitriptyline Hydrochloride 25 MG Oral T ablet Amitriptyline HCl 25 MG Oral Tablet (ELAVIL) Amitriptyline HCl 25 MG Oral Tablet (ELAVIL) 25 mg Oral aborted Take 25 mg by mouth Two Times Da [facility] gabapentin 100 MG Oral Capsule Gabapentin 100 MG Oral Capsule (NEURONTIN) Gabapentin 100 MG Oral Capsule (NEURONTIN) 100 mg Oral aborted Take 100 mg by mouth Two Times Daily [facility] lamotrigine 200 MG Oral Tablet lamoTRIgine 200 MG Oral Tablet (LaMICtal) lamoTRIgine 200 MG Oral Tablet (LaMICtal) 200 mg Oral aborted Take 200 mg by mouth Two Times Daily [facility] Levetiracetam 750 MG Oral Tablet levETIRAcetam 750 MG Oral Tablet (KEPPRA) levETIRAcetam 750 MG Oral Tablet (KEPPRA) 750 mg Oral aborted Take 750 mg by mouth Two Times Daily [facility] Levothyroxine Sodium 0.112 MG Oral Table t levothyroxine (SYNTHROID, LEVOTHROID) 112 MCG tablet levothyroxine (SYNTHROID, LEVOTHROID) 112 MCG tablet 112 ug Oral aborted Take 112 mcg by mout h Daily [facility] Insurance Providers Payer name Policy type / Coverage type Policy ID Covered republican ID Covered republican's relationship to [place] Policy [place] Plan Information EMEDNY [id number] SP [id number] MEDICAID M [id number] Self [id number] MEDICAID - O/P EMERGENCY ROOM [id number] 18 [id number] MEDICAID HEA [id number] MEDICAID [id number] Self [id number] MEDICAID [id number] SP [id number] ANS-Medicaid [id number] ANS-Medicaid [id number] ANSI-Medicaid [id number] ANSI-Medicaid [id number] ANSI-Medicaid [id number] ANSI-Medicaid [id number] ANSI-Medicaid [id number] ANSI-Medicaid [id number] ANSI-Medicaid [id number] ANSI-Medicaid [id number] ANSI-Medicaid [id number] ANSI-Medicaid [id number] ANSI-Medicaid [id number] ANSI-Medicaid [id number] MEDICAID [id number] S [id number] ANSI-Medicaid [id number] ANSI-Medicaid [id number] ANSI-Medicaid [id number] ANSI-Medicaid [id number] ANSI-Medicaid [id number] ANSI-Medicaid [id number] ANSI-Medicaid [id number] ANSI-Medicaid [id number] ANSI-Medicaid [id number] MEDICAID [id number] SP [id number] MEDICAID [id number] S [id number] MEDICAID [id number] UNAVAILABLE UNA[place]ILA BLE [facility]ICA[facility] [id number] [facility] Self SELF PAY UNAVAILABLE UNAVAILA BLE MEDICAID -PHYSICIAN [id number] MEDICAID-O/P [id number] 18 [id number] MEDICAID - CLINIC [id number] Medicaid [place] Self Medicaid [id number] MEDICAID W [id number] S [id number] MEDICAID 3 [id number] SELFPAY 5 UNAVAILABLE 1 UNAVAILA BLE MEDICAID -RECURRING [id number] MEDICAID - CLINIC [id number] W UNAVAILABLE UNAVAILA BLE Problems, Conditions, and Diagnoses Code Display Name Description Problem Type Effective Dates Data Source(s) H91.93 [id number] Decreased hearing of both ears Problem 04/20/2020 12:00:00 AM EST eCW1 ([facility]) G47.19 [id number] Excessive daytime sleepiness Problem 01/20/2020 12:00:00 AM EDT eCW1 ([facility]) G40.909 [id number] Seizure disorder Problem 01/20/2020 12:00:00 AM EDT eCW1 ([facility]) F44.5 [id number] Pseudoseizures Problem 08/02/2019 12:00:00 A M EDT eCW1 ([facility]) F44.5 495110816 Pseudoseizures Problem 08/02/2019 12:00:00 A M EDT eCW1 ([facility]) 970415535 Chronic interstitial cystitis Chronic interstitial cys titis Problem 04/08/2019 12:00:00 AM EST [facility] ([facility]) [id number] History of Hodgkin lymphoma History of Hodgkin lymphom a Problem 04/08/2019 12:00:00 AM EST [facility] ([facility]) I73.00 [id number] Raynaud's phenomenon without gangrene Pro blem 03/25/2019 12:00:00 AM EST eCW1 ([facility]) N30.10 454337117 Interstitial cystitis Problem 03/25/2019 12: 00:00 AM EST eCW1 ([facility]) E16.2 020681413 Hypoglycemia Problem 03/25/2019 12:00:00 AM EST eCW1 ([facility]) 226512838 Raynaud's phenomenon Raynaud's phenomenon Problem 03/25/2019 12:00:00 AM EST [facility] ([facility]) 103658974 Hypoglycemia Hypoglycemia Problem 03/25/2019 12:00:00 A M EST [facility] ([facility]) E16.2 750511653 Hypoglycemia Problem 03/25/2019 12:00:00 AM EST eCW1 ([facility]) I73.00 540942454 Raynaud's phenomenon without gangrene Pro blem 03/25/2019 12:00:00 AM EST eCW1 ([facility]) N30.10 764168863 Interstitial cystitis Problem 03/25/2019 12: 00:00 AM EST eCW1 ([facility]) G40.309 Generalized idiopathic epile psy and epileptic syndromes, not intractable, without status epilepticus Generalized idiopathic epilepsy and epileptic syndromes, not intractable, without status epilepticus Diagnosis 03/18/2020 07:26:37 AM [facility] seizure disorder seizure disorder Diagnosis 01/29/2020 10 :36:00 AM [facility] [id number] Latex allergy status Latex allergy status Diagnosis 01/29/2020 06:03:00 AM [facility] E039 Hypothyroidism, unspecified Hypothyroidism, unspecifie d Diagnosis 01/29/2020 06:03:00 AM [facility] [id number] Unspecified asthma, uncomplicated Unspecified as thma, uncomplicated Diagnosis 01/29/2020 06:03:00 AM [facility] R1084 Generalized abdominal pain Generalized abdominal pain Diagnosis 01/29/2020 06:03:00 AM [facility] [id number] Epilepsy, unspecified, not intractable, without status epilepticus Epilepsy, unspecified, not intractable, without status epilepticus Diagnosis 01/29/2020 06:03:00 AM [facility] G40.901 Epilepsy, unspecified, not intractable, with status epilepticus Epilepsy, unspecified, not intractable, with status epilepticus Diagnosis 01/12/2020 01:58:11 PM EDT [facility] s/p seizure s/p seizure Diagnosis 11/29/2019 02:03:00 AM [facility] intubated intubated Diagnosis 11/29/2019 02:03:00 AM ED [facility] encephalitis encephalitis Diagnosis 11/29/2019 02:03:00 A M [facility] N924 Excessive bleeding in the premenopausal period Excessive bleeding in the premenopausal period Diagnosis 04/26/2019 04:04:00 PM [facility] R102 Pelvic and perineal pain Pelvic and perineal pain Diag nosis 04/26/2019 04:04:00 PM [facility] Surgeries/Procedures Procedure Description Date Indications Data Source(s) VAGINAL HYSTERECTOMY UTERUS 250 GM/< 02/13/2020 12:00: 00 AM EDT [facility] ([facility] BLOOD COUNT COMPLETE AUTO&AUTO DIFRNTL WBC COUNT CBC AND DIFFER ENTIAL Routine 01/14/2020 3:53 AM EDT 01/14/2020 03:53:00 AM [facility] BASIC METABOLIC PANEL CALCIUM TOTAL BASIC METABOLIC PANEL Routi ne 01/14/2020 3:53 AM EDT 01/14/2020 03:53:00 AM EDT [facility] EKG 12-LEAD - CMAXX REPORT EKG 12-LEAD - CMAXX REPORT 01/13/2020 12:17 AM EDT 01/13/2020 12:17:52 AM EDT [facility] EKG 12-LEAD - CMAXX REPORT EKG 12-LEAD - CMAXX REPORT 01/13/2020 12:17 AM EDT 01/13/2020 12:17:52 AM EDT [facility] EKG 12-LEAD EKG 12-LEAD Routine 01/13/2020 12:17 AM EDT 01/13/2020 12:17:52 AM [facility] BLOOD COUNT COMPLETE AUTO&AUTO DIFRNTL WBC COUNT CBC AND DIFFER ENTIAL Routine 01/12/2020 4:59 AM EDT 01/12/2020 04:59:00 AM [facility] BASIC METABOLIC PANEL CALCIUM TOTAL BASIC METABOLIC PANEL Routi ne 01/12/2020 4:59 AM EDT 01/12/2020 04:59:00 AM EDT [facility] BASIC METABOLIC PANEL CALCIUM TOTAL BASIC METABOLIC PANEL Routi ne 01/11/2020 3:50 PM EDT 01/11/2020 03:50:00 PM EDT [facility] BLOOD GASES ANY COMBINATION PH PCO2 PO2 CO2 HCO3 BLOOD GAS, ART ERIAL Routine 01/11/2020 1:22 PM EDT 01/11/2020 01:22:[address] [facility] CT HEAD/BRAIN W/O CONTRAST MATERIAL CT HEAD WITHOUT CONTRAST 70 450 STAT 01/11/2020 9:52 AM EDT 01/11/2020 09:52:10 AM [facility] COVID-19 PCR COVID-19 PCR Routine 01/11/2020 9:22 AM EDT 01/11/2020 09:22:00 AM [facility] BASIC METABOLIC PANEL CALCIUM IONIZED POCT ISTAT CHEM8 Routine 01/11/2020 9:19 AM EDT 01/11/2020 09:19:00 AM EDT [facility] GONADOTROPIN CHORIONIC QUANTITATIVE POCT ISTAT BHCG Routine 01/11/2020 9:13 AM EDT 01/11/2020 09:13:00 AM EDT [facility] BLOOD GASES ANY COMBINATION PH PCO2 PO2 CO2 HCO3 POCT ISTAT VBG /LAC Routine 01/11/2020 9:10 AM EDT 01/11/2020 09:10:00 AM [facility] LAMOTRIGINE LAMOTRIGINE Routine 01/11/2020 9:01 AM EDT 01/11/2020 09:01:00 AM [facility] LEVETIRACETAM LEVEL LEVETIRACETAM LEVEL Routine 01/11/2020 9:01 AM EDT 01/11/2020 09:01:00 AM [facility] URNLS DIP STICK/TABLET REAGENT AUTO MICROSCOPY URINALYSIS W ITH MICROSCOPIC STAT 01/11/2020 8:57 AM EDT 01/11/2020 08:57:00 AM [facility] BLOOD COUNT COMPLETE AUTO&AUTO DIFRNTL WBC COUNT CBC AND DIFFER ENTIAL STAT 01/11/2020 8:57 AM EDT 01/11/2020 08:57:00 AM [facility] HEPATIC FUNCTION PANEL HEPATIC FUNCTION PANEL A STAT 0 8:57 AM EDT 01/11/2020 08:57:00 AM [facility] BASIC METABOLIC PANEL CALCIUM TOTAL BASIC METABOLIC PANEL STAT 01/11/2020 8:57 AM EDT 01/11/2020 08:57:00 AM EDT [facility] EKG 12-LEAD - CMAXX REPORT EKG 12-LEAD - CMAXX REPORT 01/11/2020 8:56 AM EDT 01/11/2020 08:56:40 AM EDT [facility] EKG 12-LEAD - CMAXX REPORT EKG 12-LEAD - CMAXX REPORT 01/11/2020 8:56 AM EDT 01/11/2020 08:56:40 AM EDT [facility] EKG 12-LEAD EKG 12-LEAD STAT 01/11/2020 8:56 AM EDT 01/11/2020 08:56:40 AM T [facility] EKG 12-LEAD - CMAXX REPORT EKG 12-LEAD - CMAXX REPORT 01/11/2020 8:56 AM EDT 01/11/2020 08:56:00 AM EDT [facility] XR CHEST FRONTAL ONLY 32435 XR CHEST FRONTAL ONLY 80600 STAT 01/11/2020 8:45 AM EDT 01/11/2020 08:45:00 AM EDT [facility] BLOOD COUNT COMPLETE AUTOMATED CBC AND DIFFERENTIAL STAT 01/06/2020 9:20 AM EDT Hodgkin lymphoma, unspecified Hodgkin lymphoma type, unspecified body region 01/06/2020 09:20:00 AM EDT Hodgkin lymphoma, unspecified Hodgkin ly mphoma type, unspecified body region [facility] Hodgkin lymphoma, unspecified Hodgkin ly mphoma type, unspecified body region LACTATE DEHYDROGENASE LDH LACTATE DEHYDROGENASE STAT 01/05 9:20 AM EDT Hodgkin lymphoma, unspecified Hodgkin lymphoma type, unspecified body region 01/06/2020 09:20:00 AM EDT Hodgkin lymphoma, unspecified Hodgkin ly mphoma type, unspecified body region [facility] Hodgkin lymphoma, unspecified Hodgkin ly mphoma type, unspecified body region COMPREHENSIVE METABOLIC PANEL COMPREHENSIVE METABOLIC PANEL [place] 01/06/2020 9:20 AM EDT Hodgkin lymphoma, unspecified Hodgkin lymphoma type, unspecified body region 01/06/2020 09:20:00 AM EDT Hodgkin lymphoma, unspecified Hodgkin ly mphoma type, unspecified body region [facility] Hodgkin lymphoma, unspecified Hodgkin ly mphoma type, unspecified body region TRANS CARE MGMT 7 DAY DISCH 08/02/2019 12:00:00 AM EDT eCW1 ([facility]) Transitional Care NO CHARGE Visit 07/29/2019 12:00:00 AM EDT eCW1 ([facility]) Laparoscopy W/Removal Of Adnexal Struc Oophorectomy/Salp 06/13/2019 12:00:00 AM EST [facility] ([facility]) BLOOD COUNT COMPLETE AUTO&AUTO DIFRNTL WBC COUNT CBC AND DIFFER ENTIAL STAT 04/22/2019 2:00 PM EST Hodgkin lymphoma, unspecified Hodgkin lymphoma type, unspecified body region 04/22/2019 07:00:00 PM EST Hodgkin lymphoma, unspecified Hodgkin ly mphoma type, unspecified body region [facility] Hodgkin lymphoma, unspecified Hodgkin ly mphoma type, unspecified body region LACTATE DEHYDROGENASE LDH LACTATE DEHYDROGENASE STAT 04/22 2:00 PM EST Hodgkin lymphoma, unspecified Hodgkin lymphoma type, unspecified body region 04/22/2019 07:00:00 PM EST Hodgkin lymphoma, unspecified Hodgkin ly mphoma type, unspecified body region [facility] Hodgkin lymphoma, unspecified Hodgkin ly mphoma type, unspecified body region COMPREHENSIVE METABOLIC PANEL COMPREHENSIVE METABOLIC PANEL STA T 04/22/2019 2:00 PM EST Hodgkin lymphoma, unspecified Hodgkin lymphoma type, unspecified body region 04/22/2019 07:00:00 PM EST Hodgkin lymphoma, unspecified Hodgkin ly mphoma type, unspecified body region [facility] Hodgkin lymphoma, unspecified Hodgkin ly mphoma type, unspecified body region Irrigation Of Bladder 04/08/2019 12:00:00 AM EST [facility] ([facility]) Irrigation Of Bladder 03/28/2019 12:00:00 AM EST [facility] ([facility]) Results ID Date Data Source [id number] 04/30/2020 01:53:00 AM EST [facility] Name Value Range Interpretation Code Description Data Corrie rce(s) Supporting Document(s) SARS-CoV-2 (COVID 19) NEGATIVE - SARS-CoV-2 (COVID19) [facility] This lab was ordered by [facility] a nd reported by [facility]. ID Date Data Source [id number] 04/28/2020 12:21:00 AM EST [facility] Name Value Range Interpretation Code Description Data Corrie rce(s) Supporting Document(s) SARS coronavirus 2 RNA [Presence] in Res piratory specimen by ALIX with probe detection NEGATIVE [facility] This lab was ordered by [facility] a nd reported by [facility]. ID Date Data Source [id number] 03/30/2020 01:33:45 AM [facility] Name Value Range Interpretation Code Description Data Corrie rce(s) Supporting Document(s) Progress Note [facility] [id number]/UODkbNZVtp6OcUWjcINs7NEakKYCiF1ZlOCI2sD6gASB5TRqMFcAbZfCmCtI8 lbm XjCqbZPfSdZQZdVnkVOzTmRXbrNanomYWkLB7FpDS2VBSpZ18yTRKwYSTkO7RhCYYpAXu+Qf6TJSEndA GfXG0DBieU2J9ki8VFMf9+Vfc/BPXZ9fGRGOg/OwgVZPLtBYRBolGQsbokVCzjS4C6kpBi/byYfbCL4Z eb5mmZFJmAHdOnnLp7a8/TM1Kq+F16uOuDqmEdqE+H z5bzb89i6H//ouav+d7Da/N/spfIDzwnceLiB/k/fffLHzzrqPUdR+KEUXqsh9sypfaET8FcGl9hI2dg u04w1gzbUyd+krg99DxG+8cHKklcz/M/XH0pHi4E8h606bhw3sDkDAkR8nXVEbDmfxXZKWjTRduf4X0w Gv2pmqsFOc5HfscwQl4I/dgL2V+u2DRwDy7zYLa5JU h5DpYz9JKDJOijOF5x8ZXV0wzo5RwBl7TKRX993Ux0p7AipV/nb7Hw7RWlAcgJq4unp/mQjdrlhJ3S2c pzNZjGds2SJvyCQvlxNswEYUnCawxvcjsQq+vLSB525RhHHyvQjGeCR/mzHpIGME2vZ69xQlx8DeFQuM FvXc6vLeGAMCg8GRh04b565vLjE7UT7AQ4mlR4VijA 2lXq0lx/A3U9FdN3JI0vYwJ8nibbT+79B7aCrfzHC5bM9o6D4wkx0eKrv6TbaeBS8bnUv19Gw1czM8am nea0bfYuGVCUQ7nj6TadKAbXewhFi9KJDSHP0RY+xhT1k0gFq3qTFP25gEpwkOFXre1dOuAa1OQWa14u 38bVQUcsh2YodzUnzHzY6hix3uQCunj+0bVk4e2oYe XZAWZEGfczlIXIa27rLF1RaGOEH2xfY6wx4LPltgEtO2hDVUb3wVuaNuqtDpU0OdT8CSJdt9JySSLJfH 6RUZ+jlXH30IB+ZZ0ObFVNgneDl6JGjsmIxW1Cdr8rCXJUAOJ/jQQyvp+wbJiF2oiUa7akuh53lc/Sofie [file] PrCWSP/MAP/T+imaging specialist+5//HeAqQCQ6P13bWcxMkJXs/mPpOWgp5FnfR1p/M3B79BWAsUwJ9Qh+mozhw4leb [file] ICAgICAgICAgICAgICAgICAgICAgICAgICAgICAgIC AgICAgICAgICAgICAgICAgICAgICAgICAgICAgICAgICAgICAgICAgICAgICAgICAgICAgICAgICAgIC AbYJSlON4FRZTrBDFhODMlCSDtKLKaZYAgAWDmPTQmLEYlSOKrGNNoQXLcMFSkFNZvOEFfSMRjKRVnSP AgICAgICAgICAgICAgICAgICAgICAgICAgICAgICAg KIVrQSCcXDXaMZSaPSImFU6VYCGsMYXgMTIdHFNpOQXcBAQcZZZiHRZtUIJmUGRtRQXqKNSvRCUwFFQu OAEbUCPuXDKgRVNkUQQeQKSyMMBhVLTyUQUxBRHmSODaMFAvOIJxSDBvVFKqNIEdQQUxWEUwGFCwEX6O ICAgICAgICAgICAgICAgICAgICAgICAgICAgICAgIC AgICAgICAgICAgICAgICAgICAgICAgICAgICAgICAgICAgICAgICAgICAgICAgICAgICAgICAgICAgIC MvSWCmEDFqHC6AOIIdQDOwLBYcZIHaSKBdRATgEOZuKDQmXCXtESSxAMTeOPMaZOLhBHMjQMAoGLZaZQ AgICAgICAgICAgICAgICAgICAgICAgICAgICAgICAg DCSrTVIeIPPiMPRsHSWpNHMhSI9BUEScMDKjIZVtGXPhRTKkUBCzYPYkEFSyRXYdYHPmARExAKBxRLJk ICAgICAgICAgICAgICAgICAgICAgICAgICAgICAgICAgICAgICAgICAgICAgICAgICAgICAgICAgICAg QW6WLMVyIGVpRVHcKAIeFBAzULLlJINkUSNmFKGfRH AgICAgICAgICAgICAgICAgICAgICAgICAgICAgICAgICAgICAgICAgICAgICAgICAgICAgICAgICAgIC CkOQJvOVTyZLIlMN1GKJOhFXPxUIIiYIBwGIFqPTGkNCCiWKXaFGErLMLeXUAbOQWqQGItARJfYXAqRX AgICAgICAgICAgICAgICAgICAgICAgICAgICAgICAg VAPhILFqTBLvUVPwKOMrPQAiKBQlPZ1PMEPsFDOnWBOqNVWzNHTdXCYdCQSgRLBfTSExNDDmRFHrAUYw ICAgICAgICAgICAgICAgICAgICAgICAgICAgICAgICAgICAgICAgICAgICAgICAgICAgICAgICAgICAg WMWoAE7NFARnVYNeCBWtGXBcDYLmRTGkNGQxOYLoPD AgICAgICAgICAgICAgICAgICAgICAgICAgICAgICAgICAgICAgICAgICAgICAgICAgICAgICAgICAgIC HkDHRyHCAcHVReKEHkBY3HIH58cXMgq5Z2ZBElVR2rzva/Ao5CEMrpwuUobWPqVA5YDiOfMV9ytk4SGt LbMZ2bzs8ZAZcWQjRiT0H7iMHkIHAhDVAGNoHwG13b PWsrJs64AXscSVBdApZuLPv7Wg1GHmIkG6ivVIMhVhF4HTPwTxR0YGOyKlT1BPUmBlGzTEPaTNBtDZDc YFZSHPK7APHgUiGaYiYuIXPnJOgmAXCUOHNvJRSzLiJgTnAxBYPzNQ0YSCEhQ283nnJkVBLZSy4+DQpl cmEgOckSUyQcZPQjc2KqBUn3SR9STFXeUnosv3ZrRC ErEAKUIYweCB2KIQE4KSNySSBfOg2MUVUdR818yeIeEN2FIi0LKfIbCB6msr3NSAHjLRVlKukHYfi8KV peUF8YeITtGIbJyj7fovDunkCZn7SzwjJzcOIOkMQgP4RaigvqAxjzwCnsNBGdGJOeTCPeYg0kYUYvSH D4KuV3FSSQTB9ILMBrCLEflJYfFBRsQBDEQB6PHStu YZX0XEZdicEwgJYcEQqrAT5PDTWzmyUvBTJuOXNJNFg+Rl7LQN5cr6SbVDg8YvAsGC6xpw8BQFhSKiUr Z3S8pYYrI9P6ANkdSu0SJOZxEWNzThboDMUNFUuvFY9BHL5bzhW2MR6LiADrODWyMBQwsJXcAWo4H48r yPYmJDsgBT6WWNT+Sadie+Fn4QPOZlJBYdTTIzBxBtAY METlPfZ3EkU1JRm8MrZ1VmCT48kBkvheEjWJeoFI4TAC4rCELwVFJHNP7QkLHcvA6ndeV6KMClDRKCAn PuR01ekVBoXGCxRDU1NMTnQr5BIMYxB9GemkZjeRnwspIsQDZdLSFVWI6ZXBvxiiHxjDOonPrzUT46sI xuVJ1QHr9VRcSqKV6cvj4PcJTbCm5NPAK6En0WZMFr RKJeRWSmOLT8GSJpWkOcLGqoVBAgHWTbEGB2GTRxVNBmKZ8WZzYaNDKbTkBxUHDxUNHxICZpin8PEYMm NLB8JNj1OSNtJSQxTDScCHfuIZBaBNBjXJF0WDNvIDZeIZ6ZKuNeNHTzUKL2RSeoDMJqYXQqfa2BHVMu EUSyRNw6EYIhFMLaCLJqHYhuWGGjUAF0GPsxXDQpPJ IyGS9TWhYnXHWjYVhdSWmfYEKcCAYsxt2ZMZFlGVPwVSzfXQPeQFJuTMBrNAgxNEDyOKXrSGQ0RIIvIX UfOR8VInCaOZMyGGC2EOJqWVCqRVXihb9PFKMvPZPoCOLiRJTkYINvBSTbSMjpUZJuCGS5SqWiUMGsSO VsIL6KTaMuHVNuGFk0JFVhVHYmGMGonw0JGCVnUVAn IJp6CqOhRRYmGBEcTVtnBEReXRXgQPlxWCMgELPaDR4BWqWsKTPhKeC4PMerZDImCHEylz1PWGZbKMQy UbbtYSRxLBSxMFRkSKejIUDoGQN0EJG7VGOlLYFmFG5OSdLjXVMcZlW1RYOgJWZtHZRras8BGXHwQEQr GKK2RPQnXMEkYSDxSRexWBXcVEByRnh9JCTqRPQcLX 3LDyUlCMPqQoN9JeYoMLEqXCXytf5HJHJwGLSyZFTnUBTnXLNgSETjOZqfVNMcACQ9KFslEVCvVAIySB 6BRqCbHCPrZtZmRTapDSWgWNXqpq7IYEPhXQZlJFL2GNIyUTOjBLJiDErqLIJfCLB9AUCeZYQkTOAhRM 9IZrXvUHNuEnH5PsYsMBRyHHZqtu7QLJVnHCGqCvet DENoZWFaYDWmUXblYYDfMZC5SwsgWMIcZPNaEP6RNyGdADQwMGy4UCJqMYPmDZNffp9BWQZrWIY7SMX9 COHeEQHkOBRcOSgzZQDfTBF8CTU2RKNsJNYuXU9LOiRgFFIvQFw8OOVrQYIdVUVxbj1LFLKfZRJ8REJ4 MeBtQGCgCWGvFXetGRDiHRZ1RAP9SHAyXRNvUJ9HVi SaUARdSpHzTsRcHGAvISHwpk0XJHMzGLB1AWFiANOgTQQyPXTyPYsdEERdARIoCOO6FRNpKOGvPV0KSf JqFHWlHqSsRMQnHOOoALMfdc1QUAYwLHI2XsW9FFGkRYAoLNIrSOb2nyOkfEFiUTn6WQ0KB0GhobHrKX PXBj3Rc614HACmLNMaWv6DH8ywEs9rGMLmXXBSIr7T CIl5PsKgFAQ0BqmcKOceFEOrRvp4QVn5TPtzQKXtSMG5RZb+ZKcmY9N5JtxvG6ZqBFLvAMVkIEjaIsim W5TmCUQzVSa8TF8iLHSEUf4+CHrhbUSbeUwgCBCIKnSxOLWnLMhuCXKZBy5T ID Date Data Source LAMOTRIGINE (LAMICTAL) 03/20/2020 12:00:00 AM EST eCW1 ([facility]) Name Value Range Interpretation Code Description Data Corrie rce(s) Supporting Document(s) 0.6 2.0-20.0 LAMOTRIGINE (LAMICTAL) eCW1 ([facility]) ID Date Data Source [id number] 03/20/2020 12:00:00 AM EST eCW1 ([facility]) Name Value Range Interpretation Code Description Data Corrie rce(s) Supporting Document(s) Hemoglobin A1c/Hemoglobin.total in Blood 5.3 HEMOGLOBIN A1c eCW1 ([facility]) ID Date Data Source [id number] 02/08/2020 09:00:00 AM EDT [facility] Name Value Range Interpretation Code Description Data Corrie rce(s) Supporting Document(s) SARS coronavirus 2 RNA [facility] This lab was ordered by [facility] and reported by [facility]. ID Date Data Source [id number] 01/31/2020 09:01:00 [place] [address] PHONE: [phone] FAX: [phone] Name .................. : SOCO Wisdom Acct Number.................. : [id number] ROOM. ................. : TR-07 Number ................... : [id number] Stay type ............. : E/R Discharge Date......... ... : 01/29/20 Admit Date ......... : 01/29/20 Admit Phys .................... : WEI BRISCOE Date of ....... : 1990 Family Phys ................... : SKIPTON KA Phone .................. : [phone] Age ................................ : 29 Film# .................. .:[id number] Sex ................................. : F Unsigned transcriptions are preliminary reports and do not represent a medical or legal document CT ABD & PELV W/O ORAL W/O IV [id number] COMPLETE:01/29/20 07:22 RLB [id number] Reason(s): periumbilical pain w vomiting CT SCAN [...] or ureteral calculi. Page 1 of 2 [facility] [address] [place] [address] PHONE: [phone] FAX: [phone] Name ............. ..... : SOCO Wisdom Acct Number.................. : [id number] ROOM. ................. : TR-07 MR Number ................... : [id number] Stay type ............. : E/R Discharge Date......... ... : 01/29/20 Admit Date ......... : 01/29/20 Admit Phys .................... : WEI BRISCOE Date of ....... : 1990 [facility] ................[facility] Phone .................. : [phone] Age ................................ : 29 Film# .................. .:[id number] Sex ................................. : F Unsigned transcriptions are preliminary reports and do not represent a medical or legal document CT ABD & PELV W/O ORAL W/O IV [id number] COMPLETE:01/29/20 07:22 RLB [id number] Reason(s): periumbilical pain w vomiting While performing [...] rce(s) Supporting Document(s) ID Date Data Source [id number] 01/31/2020 09:00:00 AM EDT [facility] [address] [place] [address] PHONE: [phone] FAX: [phone] Name .................. : SOCO Wisdom Acct Number.................. : [id number] ROOM. ................. : TR-07 Number ................... : [id number] Stay type ............. : E/R Discharge Date......... ... : 01/29/20 Admit Date ......... : 01/29/20 Admit Phys .................... : WEI BRISCOE Date of ....... : 1990 Family Phys ................... : SEMAJ VAUGHN Phone .................. : [phone] Age ................................ : 29 Film# .................. .:[id number] Sex ................................. : F Unsigned transcriptions are preliminary reports and do not represent a medical or legal document CHEST PORTABLE [id number] COMPLETE:01/29/20 06:31 RLB 47395 Reason(s): seizure PORTABLE CHEST X-RAY: COMPARISON: 09/22/11 [...] rce(s) Supporting Document(s) ID Date Data Source [id number] 01/31/2020 09:00:00 AM EDT [facility] [address] [place] [address] PHONE: [phone] FAX: [phone] Name .................. : SOCO Wisdom Acct Number.................. : [id number] ROOM. ................. : TR-07 MR Number ................... : [id number] Stay type ............. : E/R Discharge Date......... ... : 01/29/20 Admit Date ......... : 01/29/20 Admit Phys .................... : WEI BRISCOE Date of ....... : 1990 Family Phys ................... : SEMAJ VAUGHN Phone .................. : [phone] Age ................................ : 29 Film# .................. .:[id number] Sex ................................. : F Unsigned transcriptions are preliminary reports and do not represent a medical or legal document CT HEAD W/O CONTRAST [id number] COMPLETE:01/29/20 07:41 [id number] Reason(s): Headache CT SCAN OF THE HEAD [...] By Madhu Costa MD , 01/31/20 09:00, [facility] Transcribe Initials: EPHRAIM , Transcribe Date: 01/29/20 16:29, Dictation Date: Page 1 of 2 [place] [address] PHONE: [phone] FAX: [phone] Name .................. : SOCO Wisdom Acct Number.................. : [id number] ROOM. ................. : TR-07 MR Number ................... : [id number] Stay type ............. : E/R Discharge Date......... ... : 01/29/20 Admit Date ......... : 01/29/20 Admit Phys .................... : WEI BRISCOE Date of ....... : 1990 Family Phys ................... : SEMAJ VAUGHN Phone .................. : [phone] Age ................................ : 29 Film# .................. .:[id number] Sex ................................. : F Unsigned transcriptions are preliminary reports and do not represent a medical or legal document CT HEAD W/O CONTRAST [id number] COMPLETE:01/29/20 07:41 [id number] Reason(s): Headache Copy for: 710 MED REC DISCHARGED Page 2 of 2 Name Value Range Interpretation Code Description Data Corrie rce(s) Supporting Document(s) ID Date Data Source [id number] 01/29/2020 06:03:00 AM EDT [facility] 1 OrderSheet [facility] Emergency Department [address] [place] [address] Phone #: ext- [phone] 01/29/2020 06:00 Patient: NERY WAN Sex: F : 1990 Age: 29yWEIGHT:68.0 kg (S) HEIGHT:64 inches (S) BMI:25.8ALLERGIES: Fentanyl and Related, IV Contrast, Ketamine, LatexCHIEF COMPLAINT: seizure, x1, seizure, [id number]: Seizure, Abdominal painLAB ORDERSOrder Description Priority Entered [...] Ying; Reason for Study: seizure 2 OrderSheet [facility] Emergency Department [address] [place] [address] Phone #: ext- [phone] 01/29/2020 06:00 Patient: [...] with Dextrose Physician;Intravenous 100 mL(D5W) 3 OrderSheet [facility] Emergency Department [address] [place] [address] Phone #: ext- [phone] 01/29/2020 06:00 [id number] Sex: F : 1990 Age: 29yGENERAL ORDERSOrder Description Priority Entered Acknowledged InitialedBlood Pressure 06:12 01/29/2020 06:30 [place],Monitor Manuelito Nova R.N., M.D.;Green Prize Packer 06:12 01/29/2020 06:30 [place](continuous) Manuelito Nova R.N., [...] rce(s) Supporting Document(s) ID Date Data Source [id number] 01/29/2020 06:03:00 AM EDT [facility] 1 Medication Reconciliation Report [facility] Emergency Department [address] [place] [address] Phone #: ext- [phone] 01/29/2020 06:00 Patient: [...] 01/29/2020 6:50:00 AM 2 Medication Reconciliation Report [facility] Emergency Department [address] [place] [address] Phone #: ext- [phone] 01/29/2020 06:00 Patient: [...] rce(s) Supporting Document(s) ID Date Data Source [id number] 01/29/2020 06:03:00 AM EDT [facility] 1 Medication Administration Record [facility] Emergency Department [address] [place] [address] Phone #: ext- [phone] 01/29/2020 06:00 Patient: NERY WAN Sex: F : 1990 Age: 29yWeight: 68.0 kgHeight/Length: 64 inBMI: 25.8ALLERGIES: Fentanyl and Related, Ketamine, Latex, IV Contrast Date/Time Medication Administered Medication OrderedGiven ATIVAN [IVP] (LORAZEPAM) Ativan IVP 2 mg (HIGH ALERT06:14 01/29/2020 Dose: 2 mg IVP MEDICATION)Glenys Sullivan R.N. Site: #1Start NS [IV] NS IV 1000 mL Bolus: : Bolus 968486:50 01/29/2020 Dose: IV Fluids mL (X1)Denys Niño [...] rce(s) Supporting Document(s) ID Date Data Source [id number] 01/29/2020 06:03:00 AM EDT [facility] 1 General Instructions [facility] Emergency Department [address] [place] [address] Phone #: ext- [phone] 01/29/2020 06:00 Patient: [...] rce(s) Supporting Document(s) ID Date Data Source [id number] 01/29/2020 06:03:00 AM EDT [facility] 1 Clinical Report - Nurses [facility] Emergency Department [address] [place] [address] Phone #: ext- [phone] 01/29/2020 06:00 Patient: NERY WAN Sex: F : 1990 Age: 29yTRIAGEArrived by private vehicle. ( Per patient's fiance, patient was released from [facility] for seizures. Hx ofseizures. Per report, patient was home for an hour and began complaining of abdominal pain andrequested to go to the hospital. While in the car, patient had a seizure and became unresponsive. Patientassisted to room 7. Dr. Nova to bedside.).Triage time: 06:07 01/29/2020. 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 2 Clinical Report - Nurses [facility] Emergency Department [address] [place] [address] Phone #: ext- [phone] 01/29/2020 06:00 Patient: [...] in arms/hands). --06:34 01/29/20 Glenys Sullivan R.N. clinical research monitor, NIBP monitor and pulse oximeter placed on patient. EKG time: (06:16 01/29/2020). EKG was performed by a nurse and shown to the ED physician. Patient gowned. Reassurance given. Patient identifiers checked. Call light placed in reach. Bed placed in lowest position. Brakes of bed on. --06:35 01/29/20 Glenys Sullivan R.N. 3 Clinical Report - Nurses [facility] Emergency Department [address] [place] [address] Phone #: ext- [phone] 01/29/2020 06:00 Patient: NERY WAN Sex: F [...] status is 4 Clinical Report - Nurses [facility] Emergency Department [address] [place] [address] Phone #: ext- [phone] 01/29/2020 06:00 Patient: [...] [facility] --10:55 01/29/20 Wesley Childers RN 11:11 01/29/2020 [...] Wesley Childers RN.DISPOSITION / DISCHARGE Transferred to [facility]. Visit overview and summary of care [...] Childers RN 5 Clinical Report - Nurses [facility] Emergency Department [address] [place] [address] Phone #: ext- [phone] 01/29/2020 06:00 Patient: NERY WAN Sex: F : 1990 Age: 29y De parture time: 11:59 01/29/2020. --11:59 01/29/20 Wesley Childers RN.Locked/Released at 01/29/2020 11:59 by Wesley Childers RN Name Value Range Interpretation Code Description Data Corrie rce(s) Supporting Document(s) ID Date Data Source [id number] 01/29/2020 06:03:00 AM EDT [facility] 1 Clinical Report - Physicians/Mid Levels [facility] Emergency Department [address] [place] [address] Phone #: ext- [phone] 01/29/2020 06:00 Patient: [...] pt was admitted 4 weeks ago in [place] and 2 weeks ago in [place], and had multiple scans and EEG, to find out it's stress related; pt arguing w neighbors lately; pt was just released from [facility] ER 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 Similar symptoms previously. Patient has had similar symptoms many times, chronically. Recent medical care: The patient was seen recently at another facility in the emergency department. ( [facility] last evening).REVIEW OF SYSTEMSNo fever, chest [...] Hodgkin's lymphoma. 2 Clinical Report - Physicians/Mid [facility] Emergency Department [address] [place] [address] Phone #: ext- [phone] 01/29/2020 06:00 Patient: [...] normal. 3 Clinical Report - Physicians/Mid Levels [facility] Emergency Department [address] [place] [address] Phone #: ext- [phone] 01/29/2020 06:00 Patient: [...] 5.0) 4 Clinical Report - Physicians/Mid Levels [facility] Emergency Department [address] [place] [address] Phone #: ext- [phone] 01/29/2020 06:00 Patient: [...] mL/min Normal PT/PTT: (HUSSEIN: 01/29/2020 06:17) ( [facility] 01/29/2020 06:49) Final results Test Result Flag Units (Reference) PROTIME 13.3 SECONDS (11.0 - 15.5) INR 1.00 (0.93 - 1.23) PTT 29.0 SECONDS (24.8 - 36.7) \\BLDo\\INR INTERPRETATION\\BLDx\\ Therapeutic range for Coumadin and related oral anticoagulants. -International Normalized Ratio (INR): 2.0 - 3.0 for Venous Thrombosis, Pulmonary Embolus, Tissue heart valves, Acute [place] Atrial Fibrillation, Valvular heart disease and recurrent Systemic Embolism. -International Normalized Ratio (INR): 2.5 - 3.5 for Mechanical Prosthetic valve. Troponin-T: (HUSSEIN: 01/29/2020 06:17) ( [facility] 01/29/2020 06:47) Final results Test Result Flag Units (Reference) TROPONIN T <0.01 NG/ML (0.00 - 0.10) TROPONIN T0.1 ng/ml Recommended as the clinical threshold value forTroponin T. Magnesium: (HUSSEIN: 01/29/2020 06:17) ( [facility] 01/29/2020 06:46) Final results Test Result Flag Units (Reference) MAGNESIUM 1.9 MG/DL (1.7 - 2.2) Chest Portable 1 View: (HUSSEIN: 01/29/2020 06:12) ( MsgRcvd 01/29/2020 06:31) In Progress CHEST PORTABLE Reason(s): seizure TRANSPORTATION: P IV? O2? Oxygen?(No) Room: ED. 5 Clinical Report - Physicians/Mid Levels [facility] Emergency Department [address] [place] [address] Phone #: ext- [phone] 01/29/2020 06:00 Patient: [...] and hospitalized. ( Has been hospitalized in [place] 4 weeks ago and [facility] 2 weeks ago and has had multiple scans and EEGs. Just seen and released from [facility] ED 1 hour before arriving here at [facility]REVIEW OF SYSTEMSNo fever, chest pain, palpitations, cough or difficulty breathing. No eye irritation, sore throat, diarrhea,black stools or difficulty with urination. No vomiting or bloody stools. The patient has had abdominal painand nausea. 6 Clinical Report - Physicians/Mid Levels [facility] Emergency Department [address] [place] [address] Phone #: ext- [phone] 01/29/2020 06:00 Patient: [...] the 7 Clinical Report - Physicians/Mid Levels [facility] Emergency Department [address] [place] [address] Phone #: ext- [phone] 01/29/2020 06:00 Patient: NERY WAN Sex: F [...] Not IndicateDrug Screen-Urine: (HUSSEIN: 01/29/2020 08:00) ( AzgRcvd 01/29/2020 08:51) Final results Test Result Flag [...] results 8 Clinical Report - Physicians/Mid Levels [facility] Emergency Department [address] [place] [address] Phone #: ext- [phone] 01/29/2020 06:00 Patient: [...] Male GFR Interprentation 20-49 yrs >60 mL/min Yfykyo35-09 yrs >56 mL/min Normal 60-69 yrs >49 mL/min Normal 70-79yrs>42 mL/min Normal 80 and above >35 mL/min Normal Female GFRInterpretation 20-39 yrs >60 mL/min Normal 40-49 yrs >58 mL/min 9 Clinical Report - Physicians/Mid Levels [facility] Emergency Department [address] [place] [address] Phone #: ext- [phone] 01/29/2020 06:00 Patient: NERY WAN Sex: F : 1990 Age: 29y Normal 50-59 yrs >51 mL/min Normal 60-69 yrs >45 mL/min Normal 70- 79 yrs >39 mL/min Normal 80 and above >32 mL/min Normal PT/PTT: (HUSSEIN: 01/29/2020 06:17) ( [facility] 01/29/2020 06:49) Final results Test Result Flag Units (Reference) PROTIME 13.3 SECONDS (11.0 - 15.5) INR 1.00 (0.93 - 1.23) PTT 29.0 SECONDS (24.8 - 36.7) \\BLDo\\INR INTERPRETATION\\BLDx\\ Therapeutic range for Coumadin and related oral anticoagulants. -International Normalized Ratio (INR): 2.0 - 3.0 for Venous Thrombosis, Pulmonary Embolus, Tissue heart valves, Acute AK Atrial Fibrillation, Valvular heart disease and recurrent [...] NEGATIVE (NORMAL: NEGAT { KIT LOT # [id number] ){ KIT EXP DATE 01.20.21 ){ PROCEDURAL [...] unremarkable. 10 Clinical Report - Physicians/Mid Levels [facility] Emergency Department [address] [place] [address] Phone #: ext- [phone] 01/29/2020 06:00 Patient: NERY WAN Sex: F : 1990 Age: 29y Labs are unremarkable. Pt. wants to be transferred to [facility], but she has apparently been evaluated and discharged from there recently. I will speak to Neurology at [facility] and get their opinion. 11:16 Jan 29 2020. Pt. was accepted for transfer to [facility] by Dr. Cronin at 10:45AM. Pt. informed [...] to transfer explained to patient. Transferred to [facility]. Summary of care (CCDA) provided to transport team, EMS, patient, family and transfer facility via paper and digital media. 10:45 Jan 29 2020 Transfer to [facility] by ambulance as per Dr. Cronin [...] rce(s) Supporting Document(s) ID Date Data Source [id number] 01/29/2020 06:59:00 PM EDT [address] [address] RESPIRATORY CARE REPORT ==== ---------NAME------- NUMBER SEX AGE ADMIT DISC. XRAY# F/C MARY NERY Wisdom [id number] F 29 01/29/20 01/29/20 [id number] XBE E/R DATE OF : 1990 M/R# [id number] PH#: [phone] [id number] LOCATION: [facility] [id number] COMPLETE:01/29/20 0 8:16 [facility] [id number] PHYSICIAN: WEI BRISCOE Name Value Range Interpretation Code Description Data Corrie rce(s) Supporting Document(s) ID Date Data Source [id number] 01/29/2020 08:51:00 AM EDT [facility] Name Value Range Interpretation Code Description Data [facility] rce(s) Supporting Document(s) DRUG SCREEN URINE [facility] URINE DRUG SCREEN Amphetamine [Presence] in Urine by Screen method NEGATIVE NORMAL: N EGATIVE [facility] BARBITURATES NEGATIVE NORMAL: NEGATIVE [facility] BENZO NEGATIVE NORMAL: NEGATIVE [facility] COCAINE NEGATIVE NORMAL: NEGATIVE [facility] Tetrahydrocannabinol [Presence] in Urine NEGATIVE NORMAL: NEGATIVE [facility] OPIATES NEGATIVE NORMAL: NEGATIVE [facility] Phencyclidine [Presence] in Urine by Screen method NEGATIVE NOR MAL: NEGATIVE [facility] \\BLDo\\URINE DRUG SCR EEN INTERPRETATION\\BLDx\\ THE CUTOFFF LEVELS FOR DETECTION ARE FOLLOWS: AMPHETAMINES 1000 ng/ml BARBITUARATES 200 ng/ml BENZODIAZEPINES 100 ng/ml THC 50 ng/ml PHENCYCLIDINE 25 ng/ml OPIATES 300 ng/ml COCAINE 300 ng/ml ALL POSITIVES ARE CONSIDERED PRESUMPTIVE POSITIVE CONFIRMATION WILL BE PERFORMED AT PHYSICIAN REQUEST. ID Date Data Source [id number] 01/29/2020 08:42:00 AM EDT [facility] Name Value Range Interpretation Code Description Data [facility](s) Supporting Document(s) URINALYSIS [facility] yellow NORMAL: Yellow [facility] CLARITY clear NORMAL: Clear [facility] Specific gravity of Urine by Test strip 1.005 1.001 - 1.030 [facility] pH 7 5 - 9 [facility] al Glucose [Mass/volume] in Urine by Test strip NORM NORMAL: Negat sy [facility] Bilirubin.total [Presence] in Urine by Test strip NEG NORMAL: Negative [facility] Ketones [Presence] in Urine by Test strip 5 NORMAL: Negative A [facility] Protein [Mass/volume] in Urine by Test strip NEG NORMAL: Negat sy [facility] Nitrite [Presence] in Urine by Test strip NEG NORMAL: Negative [facility] BLOOD NEG NORMAL: Negative [facility] Leukocyte esterase [Presence] in Urine by Test strip NEG STORMY L: Negative [facility] Urobilinogen [Mass/volume] in Urine by Test strip NOR less sapphire n 1.0 mg/dL [facility] MICROSCOPIC Not Indicate [facility] ID Date Data Source [id number] 01/29/2020 07:41:00 AM EDT [facility] Name Value Range Interpretation Code Description Data Corrie rce(s) Supporting Document(s) HCG SERUM QUAL NEGATIVE NORMAL: NEGATIVE [facility] HCG SERUM QL REENTER NEGATIVE NORMAL: NEGATIVE [facility] { KIT LOT # [id number] ){ KIT EXP DATE 01.20.21 ){ PROCEDURAL CONTROL VALID ) ID Date Data Source [id number] 01/29/2020 06:50:00 AM EDT [facility] Name Value Range Interpretation Code Description Data Corrie rce(s) Supporting Document(s) CBC W/AUTOMATED DIFF [facility] COMPLETE BLOOD COUNT Leukocytes [#/volume] in Blood by Automated count 6.7 10^3/uL 4.2 - 1 1.0 [facility] Erythrocytes [#/volume] in Blood by Automated count 4.35 10^6/uL 4. 20 - 5.40 [facility] Hemoglobin [Mass/volume] in Blood 11.8 g/dL 12.0 - 16.0 L [facility] Hematocrit [Volume Fraction] of Blood by Automated count 36.4 % 3 7.0 - 47.0 L [facility] Erythrocyte mean corpuscular volume [Entitic volume] by Auto mated count 83.7 fL 81.0 - 101 [facility] Erythrocyte mean corpuscular hemoglobin [Entitic mass] by Automated count 27.1 pg 27.0 - 34.0 [facility] Erythrocyte mean corpuscular hemoglobin concentration [Mass/volume] by Automated count 32.4 g/dL 31.0 - 36.0 [facility] Erythrocyte distribution width [Ratio] by Automated count 13.9 % 11.5 - 14.5 [facility] Platelets [#/volume] in Blood by Automated count 189 10^3/uL 150 - 45 0 [facility] Platelet mean volume [Entitic volume] in Blood by Automated count 9.6 fL 7.4 - 10.4 [facility] Neutrophils/100 leukocytes in Blood by Automated count 78.6 % 37. 0 - 80.0 [facility] Lymphocytes/100 leukocytes in Blood by Manual count 14.9 % 25.0 - 40.0 L [facility] Monocytes/100 leukocytes in Blood by Automated count 5.7 % 3.0 - 8.0 [facility] Eosinophils/100 leukocytes in Blood by Automated count 0.3 % 0.0 - 7.0 [facility] Basophils/100 leukocytes in Blood by Automated count 0.3 % 0.0 - 2.5 [facility] %IG 0.2 % 0.0 - 0.0 H [facility] %NRBC 0.0 % 0.0 - 0.0 [facility] al Neutrophils [#/volume] in Blood by Automated count 5.23 10^3/uL 2.00 - 6.90 [facility] Lymphocytes [#/volume] in Blood by Automated count 0.99 10^3/uL 0.60 - 3.40 [facility] Monocytes [#/volume] in Blood by Automated count 0.38 10^3/uL 0.00 - 0.90 [facility] Eosinophils [#/volume] in Blood by Automated count 0.02 10^3/uL 0.00 - 0.70 [facility] Basophils [#/volume] in Blood by Automated count 0.02 10^3/uL 0.00 - 0.20 [facility] #IG 0.01 10^3/uL 0.00 - 0.10 [facility] ospital #NRBC 0.00 10^3/uL 0.00 - 0.00 [facility] MANUAL DIFF NOT INDICATED [facility] RBC MORPH NOT INDICATED [facility] ID Date Data Source [id number] 01/29/2020 06:49:00 AM EDT [facility] Name Value Range Interpretation Code Description Data Corrie rce(s) Supporting Document(s) Prothrombin time (PT) 13.3 SECONDS 11.0 - 15.5 [facility] INR in Platelet poor plasma by Coagulation assay 1.00 0.93 - 1. 23 [facility] aPTT in Blood by Coagulation assay 29.0 SECONDS 24.8 - 36.7 [facility] \\BLDo\\INR INTERPRETATION\\BLDx\\ Therapeutic range for Coumadin and related oral anticoagulants. - International Normalized Ratio (INR): 2.0 - 3.0 for Venous Thrombosis, Pulmonary Embolus, Tissue heart valves, Acute [place] Atrial Fibrillation, Valvular heart disease and recurrent Systemic Embolism. - International Normalized Ratio (INR): 2.5 - 3.5 for Mechanical Prosthetic valve. ID Date Data Source [id number] 01/29/2020 06:47:00 AM EDT [facility] Name Value Range Interpretation Code Description Data Corrie rce(s) Supporting Document(s) COMPREHENSIVE METABOLIC PANEL [facility] COMPREHENSIVE METABOLIC PANEL Sodium [Moles/volume] in Serum or Plasma 140 mEq/L 134 - 153 [facility] Potassium [Moles/volume] in Serum or Plasma 4.0 mEq/L 3.6 - 5.0 [facility] Chloride [Moles/volume] in Serum or Plasma 107 mEq/L 98 - 107 [facility] Carbon dioxide, total [Moles/volume] in Serum or Plasma 24 MEQ/L 22 - 30 [facility] Glucose [Mass/volume] in Serum or Plasma 112 MG/DL 65 - 110 H [facility] BUN 8 MG/DL 7 - 21 [facility] Creatinine [Mass/volume] in Serum or Plasma 0.6 MG/DL 0.7 - 1.5 L [facility] BUN/CREAT 13 8 - 27 [facility] al Protein [Mass/volume] in Serum or Plasma 6.6 G/DL 6.3 - 8.2 [facility] Albumin [Mass/volume] in Serum or Plasma 4.5 G/DL 3.9 - 5.0 [facility] Globulin [Mass/volume] in Serum by calculation 2.1 GM/DL 2.4 - 3.2 L [facility] A/G RATIO 2.1 0.8 - 2.0 H [facility] Calcium [Mass/volume] in Serum or Plasma 9.1 MG/DL 8.4 - 10.2 [facility] Bilirubin.total [Mass/volume] in Serum or Plasma <0.7 MG/DL 0.2 - 1.3 [facility] Alkaline phosphatase [Enzymatic activity/volume] in Serum or Plasma 57 U/L 38 - 126 [facility] Aspartate aminotransferase [Enzymatic activity/volume] in Serum or Plasma 12 U/L 5 - 40 [facility] Alanine aminotransferase [Enzymatic activity/volume] in Seru m or Plasma 9 U/L 7 - 56 [facility] Anion gap 3 in Serum or Plasma 9.0 mmol/L 8.0 - 16.0 [facility] AGE 29 yrs [facility] al NON-AA GFR >60 mL/min [facility] ital AFR AMER GFR >60 mL/min [facility] Male GFR In [...] >32 mL/min Normal ID Date Data Source [id number] 01/29/2020 06:47:00 AM EDT [facility] Name Value Range Interpretation Code Description Data Corrie rce(s) Supporting Document(s) TROPONIN T <0.01 NG/ML 0.00 - 0.10 [facility] ospital TROPONIN T0.1 ng/ml Recommended as the c linical threshold value forTroponin T. ID Date Data Source [id number] 01/29/2020 06:46:00 AM EDT [facility] Name Value Range Interpretation Code Description Data Corrie rce(s) Supporting Document(s) Magnesium [Mass/volume] in Serum or Plasma 1.9 MG/DL 1.7 - 2.2 [facility] ID Date Data Source [id number] 01/28/2020 07:27:58 PM EDT [facility] Name Value Range Interpretation Code Description Data Corrie rce(s) Supporting Document(s) Progress Note [facility] IMGCOo7tKxWDRfIu38/UDNkpXJEpv4XiCNajBFq4HUgoBJUpG5ErKIE9bR9dCYD5IMfXWaJwWqWqPZLo m [file] ZQy50cW/3/Hat Checker+xcs+F2a9oKms+LOgfmEkK7t3vAoRkZBv7kj2ZkstSAvMpEIX91/r/0uH6Rj1becjshX [file] XezKTU1KNpEHQZ/MAP/T+imaging specialist+5//ZrQgKOQ1L98fEuk [file] lsUQHUEs5K ID Date Data Source FREE T4 & TSH PANEL 01/21/2020 07:39:50 AM EDT eCW1 ([facility]) Name Value Range Interpretation Code Description Data Corrie rce(s) Supporting Document(s) 2.200 THYROID STIMULATING HORMONE eC W1 ([facility]) 1.01 FREE T4 eCW1 ([facility]) ID Date Data Source [id number] 01/18/2020 08:29:15 AM EDT [facility] Name Value Range Interpretation Code Description Data Corrie rce(s) Supporting Document(s) Progress Note [facility] MWOOWt3wIuCSFtHq95/NNSopYUVae5UvWXuaGYn0RUwvKMVpZ7JfQVU0pL5uFER7JBmJPuGdBoRpKTWx lbm [file] ZSK7JPghQBT3OMGbUbYdOX8HOe7MMeW2VWV3bXHiBf7TNCghNdTNAvAnSW7JSZq= ID Date Data Source [id number] 01/18/2020 08:29:10 AM EDT [facility] Name Value Range Interpretation Code Description Data Corrie rce(s) Supporting Document(s) Progress Note [facility] HYLEAu4jWiUBVsQq14/BJKnwPJGgv3BwIRhqXNz4KXftRAEdJ2QmTNO4pH9iHJS4OVdJNyTiDdGtXADa lbm [file] tT2lc37MU34djIe56vaa7ywj8m4rXi6LomOn0zUt6OO/UA4kuliaU9/XvR/tCBwrUMpG+Meléndez+Uhfs0QR [file] AgICAgICAgICAgICAgICAgICAgICAgICAgICAgICAgICAgICAgICAgICAgICAgICAgICAgICAgICAgIC AgICAgICAgICAgICAgICAgICAgICANCiAgICAgICAg ICAgICAgICAgICAgICAgICAgICAgICAgICAgICAgICAgICAgICAgICAgICAgICAgICAgICAgICAgICAg ICAgICAgICAgICAgICAgICAgICAgICAgICAgICAgICANCiAgICAgICAgICAgICAgICAgICAgICAgICAg ICAgICAgICAgICAgICAgICAgICAgICAgICAgICAgIC AgICAgICAgICAgICAgICAgICAgICAgICAgICAgICAgICAgICAgICAgICANCiAgICAgICAgICAgICAgIC AgICAgICAgICAgICAgICAgICAgICAgICAgICAgICAgICAgICAgICAgICAgICAgICAgICAgICAgICAgIC AgICAgICAgICAgICAgICAgICAgICAgICANCiAgICAg ICAgICAgICAgICAgICAgICAgICAgICAgICAgICAgICAgICAgICAgICAgICAgICAgICAgICAgICAgICAg ICAgICAgICAgICAgICAgICAgICAgICAgICAgICAgICAgICANCiAgICAgICAgICAgICAgICAgICAgICAg ICAgICAgICAgICAgICAgICAgICAgICAgICAgICAgIC AgICAgICAgICAgICAgICAgICAgICAgICAgICAgICAgICAgICAgICAgICAgICANCiAgICAgICAgICAgIC AgICAgICAgICAgICAgICAgICAgICAgICAgICAgICAgICAgICAgICAgICAgICAgICAgICAgICAgICAgIC AgICAgICAgICAgICAgICAgICAgICAgICAgICANCiAg ICAgICAgICAgICAgICAgICAgICAgICAgICAgICAgICAgICAgICAgICAgICAgICAgICAgICAgICAgICAg ICAgICAgICAgICAgICAgICAgICAgICAgICAgICAgICAgICAgICANCiAgICAgICAgICAgICAgICAgICAg ICAgICAgICAgICAgICAgICAgICAgICAgICAgICAgIC AgICAgICAgICAgICAgICAgICAgICAgICAgICAgICAgICAgICAgICAgICAgICAgICANCiAgICAgICAgIC AgICAgICAgICAgICAgICAgICAgICAgICAgICAgICAgICAgICAgICAgICAgICAgICAgICAgICAgICAgIC AgICAgICAgICAgICAgICAgICAgICAgICAgICAgICAN Cjw/hQCpH6tmtDYtjkZ5Q2hcIy7MYl5VPF3fj3IeTXZcTAmbjcNzHzdJCgXeEBYiWsuOVsd0NAdoHL6Y dJBgC1XaT5UiHApqLG8WJSBrHOHrfUXeAYRhZTIvXsA4CLCuIVmaWV2GcGGkNNbqGZOjIADnPqVkURNx OSAwIFIgMTEgMCBSIDEzIDAgUiAxNSAwIFIgMTcgMC XKEK2RNrRpA9JdxZ19RMsCTc2+FDmxxqVdTlzMFdT0YPOht6JfCZq9KS1KRCFwZziwn8DkKkVkSEOPSS qdGY7PAJH8KHP3CPCeGr3BZIDoU408ocTvUH7BZy3DJaFxXW5zts6FVtDuGGVcBfjHJte7VCjcHP2XhE DcJLdIid8wgcOzrqBSs0GzftWsqHIBUUDlVRE9pu5i pgyoPPCoDQIoKY6aME4vZCEzROP4FjBoDCINZW3MVIEhFYXsrIQpCTQhFNPNGH4AYIocCKB5HXTwqkCi xWDdAXsyRA2XIGXfqjCjBkRrCGBKKSg+Pi6KVD4zh3AoAJdiYzLrBT6shr9XBLnFAsPpS5V1nUMuV7D9 ZKoyVg0YIOBsIOOgZfAsLYWILIupTS7XZM8lydT4JI 7JzAZeLAWlHHCtvEBnJCr3O18taVSfMLqdLA1GWVH+Sadie+Qg0MHPDcBEVxJXMfVrGjQHNWVuIfS1HmA8 REw2LgW3SoHE60tKbpsqSlVZvhTP9XKJ0nVQQuRLIMQB6SoOOkcK6myeJeYXPeFXAIHiNkO19ugMRtIA KzSNAeAELyKt6PPXWhX3RcpgRpmLncmvQgZMJlEWQN LH5NQYkzroGrbNFogLjiXF87mIztRV3SKh5PIeTiCL6zzm3VdQOfKg6QMLQhLa5TAPFcBKDmKDMjBCC4 AEJxZkJeDUruLWSkZWZbYIG2ZDMeKGSyWL1OHnArWVLjFjD3NFNrLGGsZRXgdi3DFODpHXAqZRFiSAWb HWZoALUiSYgbAYTyEKUoBLW1HNGfKCMfLC3CHeQcSW AhOPT1HVKpABZeHMAgep6LKZBkAJNfSos3KkLkLMIpNRChKYcvEWYzPMA6QID9DERbNHHvPC8BJkJlDL FsGNprAsJpAFSoFIJnpi0HKLJgCAUdGRZbNARgUTNrHIOnNRkhPCQqDPMyThQ2JLYcZMLiFP5LPpKyVU ZmBGE0VTLiSZJlXISqzm1YYKTwMSGfMxu6MOIqBDWj SLEdSPhmDZSoKSE3FUD1WCLcRZAaEP2ZLjTgYIKiNJK0ZeVaHCUcVUGehy2SSXQtFKXsVKCwCQLgUXGb YYFxKKeeHIUnGLE5JiKpTBNqDMUxPZ0QEjTyINLlTJy9RHquBLLlDEFoue9AYUZmBINeFSXeZAXqSDBc EFGiYJvsNLFgXQUyGXG1VLMlBZXsJM3QKmKvFPUoUk XcFvMsDPCmTYAoxz4FLWOaQLTlXCR0LWAxGAAwIUXvIKtjLRHfUFSbBZB7ALZmWUMzCW3MOiZbLCJeAa U2NRNnXKNgYGUshi6YTEMqYCZqMfh3WJNsNDRxNCTaTSewAFRbLVL5KvT6HNCaBCDsKP4AQwYpTLPgJw I3THcdRVAqIMXhdi1KHGCnRCFyBBj0UIJgAKSvVTPm OGkpMLPaRLE2HBV8VSBhZLMwYH0TMgNfAOWpHqQwRQVjSEEoPKKycj4BOJHpYQLpTaU0OBYdSSOwYZLr KNjfXVPnDXU3Tah9UQKvLLQyNI0QKyElWTPaNkA5PhDvYBKkHERtkx2OCPCwQVAuVsf6OMMhALHtIEGg HLycBSFcOOA0PsV3LPVtTEHfQJ5YJlBuYLTrQgp7Ds GtGQPgDSDvvd1AEOKiKFMzBYP2CcBzRAVbWHCiPOx9okYhcGUxIQt1GH0UE7JeosWcAgaMVl8Dh895KF C9IBSzGw6NP8qkVz0lCTCfHVWKBx8OZGz4IyD7YpngHWTgJWxtMsV6IIUhJGP8CwTpQHO2URI2KdB+ID w2YZdaY3LtGcIiRHFdXUEfGoJ7KmJ9TdY0UZW2NCo9 ST7aSPDYNi0+NHqjyGLuaScrRAGTDiX1HCGuHQbqTORGRv2D ID Date Data Source [id number] 01/16/2020 01:09:59 AM EDT [facility] Name Value Range Interpretation Code Description Data Corrie rce(s) Supporting Document(s) ED Provider Note [facility] ZZJOLb2mYgBZJtFn41/LCWauQPSzi2KmJFcnMVv9YWraRSHhI1JoWYU8eU5eCFR6CMiKFrDvRrQoKASk lbm [file] z99sQAdM47sK6sdQbOd59vxx9yT85Tq2HeIS8UTxfcaift5yjh0XzlU6mx/94z08V63PlZsjuuFQ+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 [file] ELOCTvjDHiFPAGi4SromFtfOWJINXaEZdnHKILwtEw pPxyZk8sSEPuAZ1zRo3qWDBhRLA6VwX1DWUFKP3PRNKyPIXwzTKsRFL2RNGkKwSpUAorLGOoBvW4BD67 sTuuYR5VYWLtXIGuSC87TTRlKJGePt2NDMQqIDQdjdK9HRCdMBYPHdYiB38egDCtEsVsNFMGYUw+Pg0K KU9tm3GkLIg5GaGoCW4vvk4ZDEzXGwGdD7IlxRasNB RHWW6qjWCoBFE1RRowzWFuLKGoxVQai1fvmmtbBk9dUVSxZJ3wDa1rPXGsNAL4JcN2SAPUXD6XRHAfJL CunPInAEB2VSQmNnBbDFoiTECkYDI9YQ10yAmqXA4GCPLoQNRkBB47JHYcQMSjDz0EYOFeMBImjzD2KP AwIFINCj4+EXqriaWrHkwLOpCuCOPmb3OwLXa4VJ2D TBKuGPhmSQ4WHYZdsJ3aFXirAJ7RVgV4RMNcTHZRLlAfV72dcSBpLNr9W1UgCaFxJQUqQncgXBLhUDgf TmFtZXMgWyBdDQogID4+ID4+ZSkaBD9HZJyprlLfRYSfMl0FVNDzBBOdVU7yFTNdQEWaZ5L5oHglUXHE MuCpX9iwxjemUP5eAEZkH166gJblpjWsOOHvAHSeEz 7ZNHWnBEY3OZGgaRJtAVItORURVYodYV9GkZDlJDZ0aF3yFHulXCYmWTLtZ5mZKhCvuBwiQF12jBwrzj VsbCBdDQo+Xb6GGO8vx5NpZNa8yyBqGSanGRU1GJgvMTBsIQHxGJRgDMP4LCY7OZHGZgMyQSMqAAQkXA ltRYYwSTJlhk1SXLBkXKZ8KIh9SLIzDTXmUEAqGEgq SCBjPEhwIlGsBPOyUXHvSS6ANyOhAJQcLYRdKDuxGUMrODJhlh5CUBZuWJRpQkB9RaGkBYCcXHNyCNkp QUBmRTAtHjFyDOGlZTFvEI2ZLhJwDPNaNZW8CmUsTFZkYSZixt0CXZOdPHGkKwRhDcWqNDGlBLZdUFpz MPJaUBX3NONpERBcJVOwSN8MCyCwAKLkOQvgJHQhJC QlQBAifa6YCRUgDKRcEzH5FgNrURZgEURzNWofKFUwGATxPWD1WOVfXYJzEW3SFrHfILBjYEI8CTjpZV HxWRPurh0ATQTsSBXeJOfeRLOwZMVyNDSjASqbKMUaQTW5JmFlRADqRHLzBG2QZiLfPCOeLBk7FdggXD HuBKHvbe0ODACfTIMsKKloXDHpWJWfKCDkDCqvTGFl CTZgIIH7TBMcEQKuCS3AOeWuVXLdHbWnATZfMSAjREKfgu1BMLFkLWLoKqJ1QiGpNQMlQDTqVQquKQPi IAY0HCEsJGZvXCWvLI9TElBbYZPsMsDnIZkjTIErISFlav4KRHSmCJGkTUh7GuTkJUTpVLBwLFopELHr EBE9HDk7OLVnKFChLP4TBfYjOXLtBni6XYddPXIbIH Chfh6WFEVaQXAzLZX9YXQiFFZnCXHaIIbfUOSnXIMjKjT4CVYfFOInRC5GWyLcPHVlOZX7OxPaBMJmLT Vjsh8JTUAtMXY3DnN2AGTvWPCyTJEvMEleXZXlNFRpOTT6IBMzTKXgUV5RScXyZYUpRHI9CxohMRAyAE Grxd2AFYPpHIB8VZHfTWIdPSRgUAZgHZnhSNQtOIL4 OJC4EVJqVMAyDK8CNqNsUXWeWZO6MlCcQSLkRAHptv6COPMwVLF0XDw0LAEhQCOqNJMjZQeoBYXjHTG1 ZFD9NUYlJKEdFW1AZkBgPQJhVyY2YuSuUTHbKDPutc2HXHJbJVN7ZnV8KtScEVOgMKJiQUfcEWPhFTZ6 JOdfTHTpJZAtYK3DBsFuWJUsCettIkRlWNJrHHDvjp 0QCQUbRPQ5FuZ7NONiROZhPSTiLWmiCTUyTMC6LGE1MWJjXYGcIZ0VGpHlVLQuKxjqUSFjNNWaMQQhwt 4JRCQsDBO8ICT4IjQwQSIlGROxQDcnHXNfKVx3QNR3GJFoTINxJH7LIhLjVZNtRSJhXyKsMROgNUQkfc 8OPQUhSTJ8PJR3NyAsPJFkOKPfBZreWXAsLLleFdae RINpSEWaNZ1TQvHpAZSbPYN1WbzmUHIwCQMqab3JUDAyRCV4ECN3UPFdSXSxOZZhQVhxPNPzPFeuTwuf MZHdXWAwIC7QKqWuCUQoHQY0IsRbAWYoBMYvtq7KMRSvDDB1TcFbKlBqRFGvZFJiTQlhVFYuOWimHaQ5 WKQwMKErUC1PIaVcNUWuPJP3OUauWOVoTQIjtt8QNJ ZiHEA6AdN9TBUxNQHuCWBmLCfsJQHkLPilDpE9CQMrBZZjJX9YRlEuAJWeYWA7SVAyWYVoAJDlfn3OKH HdFMG5MKUwMGSrNCIdCJCuPRlfANFzVLl6VkS1YPGfYBDbEZ1QApRwONFtUOX2YKSkGJDiLYUxpf0FPL BtBDF1LTJ0YZXiDMDdRUEbYWucOIAzNQi5IPE3GBBv QAPvSI0QYyDjFLwyIWZWQhd6JKcpS9t6KCM1AP7ZM9Utl6BdUmSvSRMVLOidDA3rthNlFFVqBm8TJ8bA FrmtNhC4TSQrAQv7FVW6UKlpC2PkD6U0EHn5I6Q9NqAaTG8mHEIiTEP9CgMyCxY7QiZ9DOUuMMRmMpa0 QZZtXcg4EbR3PeAcZF8URh8QXzO6ZDV9xDSlLg2GEROhRaNQKtTcKE5KEVn= ID Date Data Source [id number] 01/14/2020 08:03:12 PM EDT [facility] Name Value Range Interpretation Code Description Data Corrie rce(s) Supporting Document(s) Discharge Summary [facility] ADNAEp6dOpBAWlFe56/CPFewCEPyl7PhEZtiAOx2XVhnATEzL2KvEEG5iU7lCKO6ASeGXgXoWwIvINW5 lbm [file] ApiMsAuNPxMXe3Ha/rig superintendent/NhpLOt+LEK566IISgsfJs [file] ICAgICAgICAgICAgICAgICAgICAgICAgICAgICAgICAgICAgICAgICAgICAgICAgICAgICAgICAgICAg ICAgICAgICAgICAgICAgICAgICAgICAgICANCiAgICAgICAgICAgICAgICAgICAgICAgICAgICAgICAg ICAgICAgICAgICAgICAgICAgICAgICAgICAgICAgIC AgICAgICAgICAgICAgICAgICAgICAgICAgICAgICAgICAgICANCiAgICAgICAgICAgICAgICAgICAgIC AgICAgICAgICAgICAgICAgICAgICAgICAgICAgICAgICAgICAgICAgICAgICAgICAgICAgICAgICAgIC AgICAgICAgICAgICAgICAgICANCiAgICAgICAgICAg ICAgICAgICAgICAgICAgICAgICAgICAgICAgICAgICAgICAgICAgICAgICAgICAgICAgICAgICAgICAg ICAgICAgICAgICAgICAgICAgICAgICAgICAgICANCiAgICAgICAgICAgICAgICAgICAgICAgICAgICAg ICAgICAgICAgICAgICAgICAgICAgICAgICAgICAgIC AgICAgICAgICAgICAgICAgICAgICAgICAgICAgICAgICAgICAgICANCiAgICAgICAgICAgICAgICAgIC AgICAgICAgICAgICAgICAgICAgICAgICAgICAgICAgICAgICAgICAgICAgICAgICAgICAgICAgICAgIC AgICAgICAgICAgICAgICAgICAgICANCiAgICAgICAg ICAgICAgICAgICAgICAgICAgICAgICAgICAgICAgICAgICAgICAgICAgICAgICAgICAgICAgICAgICAg ICAgICAgICAgICAgICAgICAgICAgICAgICAgICAgICANCiAgICAgICAgICAgICAgICAgICAgICAgICAg ICAgICAgICAgICAgICAgICAgICAgICAgICAgICAgIC AgICAgICAgICAgICAgICAgICAgICAgICAgICAgICAgICAgICAgICAgICANCiAgICAgICAgICAgICAgIC AgICAgICAgICAgICAgICAgICAgICAgICAgICAgICAgICAgICAgICAgICAgICAgICAgICAgICAgICAgIC AgICAgICAgICAgICAgICAgICAgICAgICANCiAgICAg ICAgICAgICAgICAgICAgICAgICAgICAgICAgICAgICAgICAgICAgICAgICAgICAgICAgICAgICAgICAg ICAgICAgICAgICAgICAgICAgICAgICAgICAgICAgICAgICANCjw/uMXmH8uolGPjdlB2Y7roTm6ZPd4O FN7vc1SvIKFcROzvtgSaIxjZSdMhFETcTdkWPcv6UM dyFS5WiUDfQ5OxC4QcUXkpPP4BHSIvHHNboJHkKSRmTBWtRdX6DUTgKWuyYY9XpDVaWRidWFSlBASlKl WmSEErFNUoBJGcUBTkVGUWTFGuQPGeMzYdTPugDA1Wb6ErwUW2LZd+Nn3SSS8na0RiZNvbHAGbFE6oqw 9PKDuMOhRnC3PenwJ9NLFgRORfUd0PHRHjSHUapKOg PPGeBPWTKiLhH9RhfX34CHFVSo7+EOabgsCyOhxZHmAhWUZsr8NyAWb6HH3TXOSkNDq7kTPuFHzgN8yz zbmeWUA4vA3ouxggUeuxApisHDJMd2svWikcCODdQVJdSK4pKN4uFTRcOBB6CmDsRIZSYH0IYNXrHJPk eSKzITMlICQWSU0OOKtuUOW3WOSsyoTqwHXnOLabHU 9QYXJlbnQgMzAgMCBSDQo+Gu1XRA8ay2BnQOzhIyCfYC3rre9JIOxEDpQvZ9H6tSEoY8X7YBeiLm4CTM MtFVQtNhfuNCDSHHtwMN5LGE2gauD8AB8GlTDlYZPaMSVlpCDuDHz6H81dtSViBQdwQJ8OJKJ+Sadie+Pg 7LPORgAZEmOUAoGpUsZXIDLnJvC8MnB0OJo2SeT4Cc AN44jMsswkUcOQztZY4DKI6wEWZaFNLSWH4RoDXnnL4pwcOcVESbSWANBrXpK95lfDOeWXQkXQV8GUFz Dv2LRTBnE2PhgsZciCletxYqYCZaNKTMRQ6IOOqvbdKbcSMjiQiwOS78bEzoIF4ZCg0YTzZwDB3ddt1O mRTaTf3IFVWvKd5VDQRjTYWnUOOdLIG4AFDuYcOrPL dxTUHlRYQsEKO7RPOwKDDyYC4PJtUiFRTyRdS9ZvKqNLLlOFMtmw1TVFDyNGJfHfX8AABzNOWbNUBnXT ccPUTqCKShDNK7QDJhMIIsCS9QGiWxFVVcAEI8LPHdZFRcITIiwd7NWZWkTEJlHVZ0FBQfBCJdYYNpJG djYGTfVSD3JgJlNQIlKSDhSW4FNmYoJRWvZGv7VmFi EUCfUOFoyy4FBAAsQIQkVPG4WjLxYUZmYHHaUCqfGDAtCDSpYJz1WHIpCLEmEM4UGkHyFMIbEOY2BpAx ZHImMWRvuu4RVUAtOTUyHQU8QIMpLIEsWAKmAThcUXVkBIQ7VZhgUMSsQIOxBG9DSdKhHVYlVKXsJOKo ZHZsKARvpo7PTQXnGZIzGvS1CaJuNDFxZUWmKAqwDD FeAYE6JMNmXJJfJDQbIT1WNwKfBNPwCOP8RvOyYWMzULBqjq6XQXBeBRBvImG8MHMlJNGxXGUyMPbsIJ RjRSD3PAl8DCBwTFQmSO7COvAtUHLjWNdhWjDhDUOmVYCtsf0PQJEfPQMyLFYjHOZtAMDpPXZsGOgrRG SbCMU0PbIwANMdFSBsBB4QHeNoCHJnEZo1JJSlFCRn OTFxie0NTNQlFUJzVNmcFKEjUUWaAGZoRLauQTAeOPVeVCM1CGBtAKNxWR2ZTxZdJSFxXjUmMxzyLMYh QTIrup2YRISkGLOiLBL4EiTyHHKnJSFnDUpzFLCzGISsNkGwWQKyCLVpNU5MYsGlZRWsTxTnHnlwKBMh MWMvdt6QKZYtECRhHdM6LtEzYMXuHUYxTQokZWEqJZ GaTzY0BCWdYOSeUN6CMxLfMXDxVdU8GSJxPDAxWBIgja3IcETurWslsg4RWGxBHu4XlSciUZQqMZyyYp 6luNMpDnZlCVXOOm2NcgApKCYbUDGFZOfmZKRiKPpjSsG7UGHnCjA1LWUrNhO3EAM7MJTxF6X3NaJfBj K3PiM9SWIdAjNoDoTwGGJ2T0MePGIdZcD3MPK3XlLy TPM7Umr+FA9cZYo+De7So9MkkqD6sbSxUHfoSYD2Ik4YXXKHR7HORm== ID Date Data Source [id number] 01/14/2020 04:27:39 AM EDT [facility] Name Value Range Interpretation Code Description Data Corrie rce(s) Supporting Document(s) Leukocytes [#/volume] in Blood by Automated count 5.4 10*3/uL 4-10 [facility] Erythrocytes [#/volume] in Blood by Automated count 4.39 10*6/uL 4.1- 5.3 [facility] Hemoglobin [Mass/volume] in Blood 12.1 g/dL 11.5-15.5 [facility] Hematocrit [Volume Fraction] of Blood by Automated count 37.4 % 3 6-45 [facility] Erythrocyte mean corpuscular volume [Entitic volume] by Auto mated count 85.2 fL 80-96 [facility] Erythrocyte mean corpuscular hemoglobin [Entitic mass] by Automated count 27.5 pg 27-33 [facility] Erythrocyte mean corpuscular hemoglobin concentration [Mass/volume] by Automated count 32.3 g/dL [facility].0[facility] width [Ratio] by Automated count 14.9 % 11.5-14.5 H [facility] Platelets [#/volume] in Blood by Automated count 180 10*3/uL 150-400 [facility] Differential cell count method - Blood [facility] Neutrophils/100 leukocytes in Blood by Automated count 58 % [facility] Lymphocytes/100 leukocytes in Blood by Automated count 31 % [facility] Monocytes/100 leukocytes in Blood by Automated count 8 % [facility] Eosinophils/100 leukocytes in Blood by Automated count 2 % [facility] Basophils/100 leukocytes in Blood by Automated count 1 % [facility] Neutrophils [#/volume] in Blood by Automated count 3.19 10*3/uL 1.8-7 .0 [facility] Lymphocytes [#/volume] in Blood by Automated count 1.66 10*3/uL 1.2-4 .0 [facility] Monocytes [#/volume] in Blood by Automated count 0.44 10*3/uL 0-0.8 [facility] Eosinophils [#/volume] in Blood by Automated count 0.13 10*3/uL 0-0.5 [facility] Basophils [#/volume] in Blood by Automated count 0.03 10*3/uL 0-0.2 [facility] Nucleated erythrocytes/100 leukocytes [Ratio] in Blood by Automated count 0 /100{WBCs} 0-0 [facility] ID Date Data Source [id number] 01/14/2020 04:47:09 AM EDT [facility] Name Value Range Interpretation Code Description Data Corrie rce(s) Supporting Document(s) Bicarbonate [Moles/volume] in Serum 22 mmol/L 22-29 [facility] Chloride [Moles/volume] in Serum or Plasma 105 mmol/L 98-107 [facility] Creatinine [Mass/volume] in Serum or Plasma 0.59 mg/dL 0.50-0.90 [facility] Glucose [Mass/volume] in Serum or Plasma 90 mg/dL 70-140 [facility] Potassium [Moles/volume] in Serum or Plasma 3.7 mmol/L 3.4-5.1 [facility] Sodium [Moles/volume] in Serum or Plasma 138 mmol/L 136-145 [facility] Urea nitrogen [Mass/volume] in Serum or Plasma 5 mg/dL 6-20 L [facility] Anion gap 3 in Serum or Plasma 11 mmol/L 8-15 [facility] Osmolality of Serum or Plasma by calculation 283 mosm/kg 275-300 [facility] Creatinine/Urea nitrogen [Mass Ratio] in Serum or Plasma 8 [facility] Calcium [Mass/volume] in Serum or Plasma 8.3 mg/dL 8.6-10.0 L [facility] Glomerular filtration rate/1.73 sq M pre dicted among non-blacks [Volume Rate/Area] in Serum or Plasma by Creatinine-based formula (MDRD) >6 0 [facility] Glomerular filtration rate/1.73 sq M pre dicted among blacks [Volume Rate/Area] in Serum or Plasma by Creatinine-based formula (MDRD) >60 [facility] ID Date Data Source [id number] 01/13/2020 09:34:16 AM EDT [facility] Name Value Range Interpretation Code Description Data Corrie rce(s) Supporting Document(s) Consultation [facility] [id number] [facility] [file] ICAgICAgICAgICAgICAgICAgICAgICAgICAgICAgIC AgICAgICAgICAgICAgICAgICAgICAgICAgICAgICAgICAgICAgICAgICAgICAgICAgICAgICAgICAgIC QsPCZuXJ2CJITgLJAuVRIzFOIrEGKwCQXkAKFsIQGiCHKwSSHaEUEiNMFzAHUqOAHsFZJtLONmBFTjPS AgICAgICAgICAgICAgICAgICAgICAgICAgICAgICAg HNQoVOBoACFnTFPpIFXfKX5LRMDkBKQyRSWjLXKvLGQbRGSgVPDyKANzUFSiQOWgALNaKIQmWYFaHHMg TIXiMLWuJWAfFCUoJNOsAHXgHMVoFVCpTOQlCQMrMTFqADIlUOFuUPGgUATnHZNuRTNcNEIqMEAwPI3I ICAgICAgICAgICAgICAgICAgICAgICAgICAgICAgIC AgICAgICAgICAgICAgICAgICAgICAgICAgICAgICAgICAgICAgICAgICAgICAgICAgICAgICAgICAgIC XvHZDsTXMmFQ3EZZTgUYPlPPSdZQWgLIUqAVLwLZBpOPQhTIVgTUGqJGLgWSUxEBQjVFOlUSJeHWFzOF AgICAgICAgICAgICAgICAgICAgICAgICAgICAgICAg LRRmAKHjOQDwFUScJBOdMRXoFZ0KSEJzUURaWHRpAFDpYIAwPTVtKMKpGTUiBOTlSIVuFNDaLTSnTMNz ICAgICAgICAgICAgICAgICAgICAgICAgICAgICAgICAgICAgICAgICAgICAgICAgICAgICAgICAgICAg MI3ABKZwRZXcPMXtGKIqXEMhPTQaPCUmSITlZPGjSS AgICAgICAgICAgICAgICAgICAgICAgICAgICAgICAgICAgICAgICAgICAgICAgICAgICAgICAgICAgIC LmASKzLVQeUKVtMQ1PXSCjRNEiXQJlJIXwOEFgGIYjICDmBOKsDSYyJQYoMHHeIRXnOEGkNNFjJOGyMO AgICAgICAgICAgICAgICAgICAgICAgICAgICAgICAg QDSmUXEtBCXwYTVjYPLoBLZaXLDqKY2QGWFbPCUpYBOtATOnPOMwXCSsJXJcRIItITFcLUAfNKUdUMNn ICAgICAgICAgICAgICAgICAgICAgICAgICAgICAgICAgICAgICAgICAgICAgICAgICAgICAgICAgICAg DECuDH3BIONlDHJlEPEtAMWhPNEeSIHdLYOzFHEaIM AgICAgICAgICAgICAgICAgICAgICAgICAgICAgICAgICAgICAgICAgICAgICAgICAgICAgICAgICAgIC KhWCEjCDOyZGTtZGRmLL3ZAC70wRFvj5G4UERuJB3yejy/Fc8DKDhvyuApzITnNX6DFjZxFS5xiq6HDt RrGG7lfg2QOTzIKsDdB5B7eRXxHFDoCQLEUtFpK93j YZicUi98RCdqGFVbLtQuPOy8Es7ETaQuB9hjFRCrJfF4OAGuUtJ7AASxHuYfVXjrVF3Jl5KbcWEhZBu+ Rw4WMU5ue7XxJLfnTvRbGS3ugh9WTKiHJrFaS2RlyxB3XVXlYCOkFs7VRAGhZAArcQIzWqCoAQQMDkIx D7YnjG75LRJREa1+FYctwtQxInsHLnJpUXPje0GvGT a5VU9CDHOnHZe5aQFmN35bb1TofPKvOsryXfJfmNJmyexvMMQXDYWqyQ0uoA0fWBGPrGWgwBMbVNAkGN 1uOS8sHKWhIDM9TcCuZMWEFG9WWVFyIFMybYKjUMJaJWBNHW0HFZkiNRU6XSTgplRqbHPsUCjgZH2OJA JlbnQgMjIgMCBSDQo+Io5SMO6jg8ClECglCPMyYU0k of8SVKxXJoQxS2G3bVXdV3D6XYfwIv0XPNOeWHPvKqNzJJTLHOenGO2OHO5rtvJ6UI2CtDQyOHNoNKBt dZDpEKu1T17ywVUrQXcxGR2WKHB+Sadie+St1QSLAnDQCmKDVyRtClTMOPDnEhE3IzR1WRt7MrC0QkJV17 bOidfqWpZRnaHT6UMS9bTMUkBWLHFU4BcGJajV9xfx RrUbJxNFKABzSrF71gdNXoLOReJXUsHMPaSh3VIZRgJ4EybmApjLsxoqSoMJVvEMIEKU2PCCavbeCryY MirBvhRJ05xMzxGA8MLa7EYuIpXD8mhs3BsAVyKa3GVRPpBB9TSKUuVAPpWHAvFXS5XOFpZxIrBKfsQI ObWELtNWT4RLUoLHAxJA0IWnZoYUSvMAZsYeUpFTFe CZCkrq0ISFRxZJAjPxN6CjQxNSRcFBUvRGkzZVVxKYZjHDN5GDAiUJFdWE7AMfHsYWHhJHY7QFUlWOYi JSTfrh1LOCGsYNOmFxt6HFVeDYTxIHQcYKemJZHkKSS6NeY2EYFhOCIiYR0YIvIgZKWiSRE4AnQqSUFn RHRfrl8NEXVaGWKuQSk9ADPsNBUeNLAhDPciINSwQX P4TUk2VEQiTWApAY2MJrBcXJOkKHBcKgqhWZCpLLVllk8VDYHiZMVuInBkQkDpWQRmVJSzZQewKAOiYD M9SKT3MRWmLIEbWZ0HCwHnUNGvJXd2FQkkEHMoFKQjjq1QUYQvROSyPJW8LzSvFQNsCHViOVumRPWhEC L8Slq2RSIcHTAxGX2WQyLxIMLgJCe1OmHpFBNsYRIw pd4KZDOlKAPmFGxqXnThOELrPYUvGCavEJQcJPGfXOVySODnCYRaAZ1NLhWxNOXbEPZlSIKwLAPuEZBj rf8ZUKWuSSIhPKf4YiKaFASrPSIgNEkdIGUqNNEkMNzuXYUuVIMpHW6ZHkOfSUSgIJAaDwBgWFCuOVVj bw9TIXUtCRRrIrWhKtWbGUQiEZAaULe2elPtnSNkUC s6KY5GA1CrpqLkIkZVOv7Wj925HKO8LMSxFj7VH6drFz7qTVUfNHRYUh4NOJa6GVwjFOC3CYTyF8TpSA ZeGJIjPVf9NEB9P4ZvRzK7RTH+OTnhN8SwOMC1HgEbXbBlGzM7VJKxFHxbXls2THA1PVJ5Ef4hJLIKVa 4+HYqbkJXbqYlkYEGVDvUbHjSxTMxkPNZXOf0Y ID Date Data Source [id number] 01/13/2020 08:13:48 AM EDT [facility] Name Value Range Interpretation Code Description Data Corrie rce(s) Supporting Document(s) [facility] DKFTRr0iEoSTLqUpo1PbAbXqSAVhMF4nftk8N3Z0gSNrA5HhhZRvi3avJ0RzC7WrXHJwLDYECE4BoTDp jb2 [file] sj+RCVTS4OVNVeB+OgoIIBV6KFRHatMDdSPuKduTTA e1d4AY0BcgrSaR1OB751i0W7T131XWcICi/RTiRO9axQbXB94jAlfQwEtPixnMF1tzJLjaQoLJROsTMM 6832YRQuDrAiyDVLEzvfOC2zbMSGCykn1YrgEx46L96gXf16Oq5RxgaKijQ6XWIhiwS+lisXnVY+lr3O 1DJvX/2KpZsRsoa3F6qvsG37XMD5Qqh+umb3fN56E3 k1RpkSf++fxfvzx0e10cHZKeop+RlyklftuBs2SNsocdgm8HdFpaxeLe/TAVr4uGqEOrGKH/gL1tm+fY N1ti/7lrYMxUXo4EjFvvpyXx/LVb96+Tp3TEOcS0hMN+dSq7FR0jnGXH4R3OBcgrF21WSfITkGiVbcv3 j2BAcoyCcvtfVXYaorsnsK1aCzS1h0fxhCPRDpLtLY gbCOtAKJbirfxwEV9gKurTOMRALNuhBdDWLkjAviSvIPAqEPJaFuQU5WFjw9GvwXTa8HbMQXA2JcmYSH kQhiuIElDVafSXRH4YSUFyOkYHJL1KHSBgFbFXIK8BXWIsIbyOQics6C5fXnPlnGbd3f6GxOwAWRSQ2T fWsGIFv41mThaAaY6E+cjlKuUfcifiCty6PcZzIsfA iJk7A/GHubwiiPNywHXxrNBobQPtmEGrc0iMuIAb+MJt+Nk+/MkNhotQ6p5Oi3LM+6lVGtXHxLJaS2WX ayFMg7Ip+sFj3Z1NVN+sxvxca5rIf1JCuOfC/vQAJYSTJk0EWSh+Af2AX/sNROJJ0zRYEyJ6FYNqHAus OQYpximfo6AHMrALYRc9UwqRuNsOtGmLUKqUEZtXT2 jRO3zm1LEBOgGBzNaG8WImTmLVbPgK720kr6OQ9ShUYR9qBgE9WYiMWE2rPBD/Tc0jODv/IIJINkkEwS 9AeVj+SAYFZLVHMq23ukTUf9S7oX40vFfeH9zNlFXdK36tjiM8yOARerHZwcslh7hY06jpokYNULQNLW eQAyONObXYUQsSki1mOSyP13WAtsvkYKGOuMysZ4GZ Y+rjOqjBZEqrLDREPZoiDp3CH8YLY6vp2+8imsUovKY4ROKaSI6aBRTdc3tpI5NokNwwXIewcR62jb9G OpNtfZH+I8xejIA3id2qd85yEFM2siA3l8qs1eJgO16JduLT+zuePoW6yIv9pIv3Tme28nqwbX/2DlY1 jyKVm3mNs87WGX1x/L/Nma21e4ENAdNAo+sj2ydaRu aG+nqMxLgv0Thschb5DrwMc4CTqsknoM56fCEtDNbPDpNw4xt/S81Zha6AK9tkdcVABmG5glCZz+loqH ixkqI7FW8ADHSK5lJw3FMvUEeLw0uzXmF9pnG508UJDGfKyRdlQhUfJ/SD+gre8ThP1QAnoHB7aejcMc ssKb5BTfd9ta+AgkTuIknaSTBEmQDJJBMkkmyLwuCi HDDiZSyaDCoWuAjEVqNEDjYSzBURmT0eNPNiP6mVYIpR1ukRHjt5cI0whmLpXoZX978cRa3RA7ADQvGO VmdTUY6dxBQQaTcLVFVIrX02EOurrX9aZ8TJfKHBy4wBiDP9ielJS7gpoa42btddkAx5Bf1fibKlYtIT O3W9iXMb1IcmNlvIQkMkR6g+dbV4PGXtw7NWp+ROf+ ROf+ROf+ROf+ROf+ROf+ROf+ROf+EOy7cgD/FkMkEPwt19JSjkuwcLVUunkHvkM+4iOQCImQKImSNJJG IkLP4qEL1m/71OscSwlBEiSDhDao/H1hNCGzfzl9HS5zHXBxOFcTELuVhTfBenkUnYX6nxYUZbkCbRF8 yrMADim3jrJ3blTWPbp72iswI2phFXMAEuMR0lHJ9t c3HTRXXhcPT9YWpwfSoycfWWBSFdQ8BGq/0Arc7U03iey2444v455LmBgzweYg5kg08aidh833JWt1aR 6ac7WsT6sbw/Px1FVw9dDZUHaWlhyEybaMePiop2U+nls9xNsmiOCw31O9vhBNaDV592P65GAxrzAqqA H129oC7it6RcyZcX2b4TT12t/gJ1Y+tpsFCm5QMMlE en7Yz2FPMJ7n3fO2VmdKPlmwLr8TwG3ahC7mutVNIGoLNGKWfu5cdV+Y7A8m+4PJ/cCuF2qxVce6jDu+ cbJPnOwTJ/oOeM0dee+c7BMn+0SuO1c+nc0dR0eiH9J4oSDVW8pl1MuotJWHAU5x1QQ7BsIPYyEfM7UQ 0JkHsaChdnOmttiZamGaSMNRBsqILkf4shyuloq08a TyqXf92aKpjChwQ6m+nPpacqov5yyDEqjNq/u7Lz+1ciJqr2w00u/e/ydq1P5o7e95e1/qG88zyzgfHw lrizoao0wumspRl//Pu3/92Kg9guJ1KY/36VKMcjSFOnMPQPyEf4f2/Oy797/52dq8+AHjH2t28kyUP9 aF5/Pf/ycin2q14H+++/Tu0/u3X7//+zME64870nsc Pvzu/kwkWtr5x19v8nje2o2cFz46467tggz/3dY2k04v7g/u3a9+Zhcqo81k+NlvuytWhjtY3/Xhm99+ 9/bp3Ve//Bkz0v87+sO7v/HZ+yV8f/nip1047+2nt4+//nV0v6z8k345s0/x5c2i1k6RT67+fPvwzS/e wtpw98b//pevPnx6//Xbt9+8vbRfvv/Ftx/jg04VW0 F//fu/8Q1SJf/m22+++352zc127bRCf6/e/phl289/vfvym28//ewln18Z/+kfrhhe+bjyU2/vv/qvf+ Xyp5Euq+yff/n+r4efog23y894bW1Yx/4d1Km3J5q3+wv+mvoxuCV9N/2Fxw4UbM/mn377/mvQC2642l 7UA9n45pb28/zX96/yv/59+FHc4PfuCd0k/Xf3XR/r /Or9u6+/++zzK1CwOic//+nf//CXH3/4t7f/9n/efveHP/7x+7/85Yfv//gPb19//6c//HODt0St/Ovf v/35T2/z5zp+vn7m+RKrG1Hz5424dr07Lqn4Rv2/+OPP/8qvnUMOluuFf/xrlIg6LI/crl/+o9KtxAmP +Y/MMgwgXuihug1m/ObRq89o+D9ahUIEnr56Csh135 pcXmb90q79/TRmc2zF75hTX04o7168qbOcX113+I8YA934GQzdN697PEev/Mzs5sKg/uk6Hn+ayJe/4Y 9UeN3X5vWUotx11U9++NN//OPbX77/jx8+u/6jAl3JJXmtB/3415/saPKp5iR1h/ibj29/+NN//PCX// Qxcr4zovqr22ncZnhy24/cfbN/+vjd27/9z9dv/8Of //ZN070ltv+2gq0nEb/06ef/9On34K/1wNG0n2+ur3YgbqOIGQbv4UV0tL2/9Nljt94jf4Za/qrNfvOz jz/79Pb9//7hr/+52ZyHOn/34aiidxdLMPa7cGm1/p+/sZNlkr0nkdJZy6//8bMnPD/jX33/P3///V// 4X1pcvSOtjw+/vAT+Fjp45///SPJn9k39v61FFtbJ7 /+/NmocU5SU/yxiM7WS/z+f/zpD79//VVn5l678n96d+8+/Prbb95/+slfrDQi+Rd//Q1I2xv8F/72q2 F9//JRVgm//fWv33/o6crp6Xqyg+///TF1FVaeifiq66j/6157a6n///fyP2uo1dg9v3d543/+Qcbb+6 8/uCV03LNd+Ya39gYF6c5+3ojo646KLXh253TM6/72 u4cg34DkpKw6WqAf/xdd5HetWiShVOZ1jxMnvIobblSjJveKUTeeZVWwSje9FS2LlMZqJEAxI1P5IQSk xb1vWWNoRCXfyGUzMoNaLIVETL5SwVAlIK9ADSz1JGSgWUDkVxNiULLwdlU9XJEbQWKqYTGoW2NxhqEi dCAyIDAgUj4+QF2hz8DwOaIiIRCaWxm0QU7RfTOfFC 0TaAGesB6wxjMvV847hpNoZLFpVgxfa2ClXCsqQRCZWG3BKVI7VRS7NPNhGl8+YE5vp0QmPsHvDHIwBh v2AO7YiYGzd9WoAD5LX0WqYJIaIORPHAN8b3CjPZImotgpwuwjK4HySQU5gH6cYGQ0KOTpCEtpBTZnAM rhZVZ9DXYrSKuhEVRcJNIaXHCfRPTjHVj1vKDqSY7Y U5HhOPIsSJCORBXiibOeYk1cREMFFgGVEthjD9EMXMRyNdd2XNAuZOesB9S1WthiW1EuPJ1SX4AzXFAd CJSUPGHibcQbMR9QokXctZ4mYMsDSWDMVSkJMXpkUhY1q04gcnIAGAFnLYVhUKlkOLDkXEKhNSTvSJUq YHGoMKVtKRUsMV3YG7BfBEPgSMJZAHX4l5CzXELamo uoizyuTo1lyhMpMme+NrvlBYBmz1LnEVfpW1D1tCBnC5VuS1XwFE8VuFFqMEalEAAdAGHkVRHtB312pu QgMT4+CF5zc1DfMllzPPXRMDVqMEOcRNKoCHP9CzRgKXZzEYXpTKHcHfX1AaPwOgNVYPMmLKX0UCJlEO ZdJUKwHNTzYPbwJDZkGQM5WrsfLGKhDVDoRE1yTbVa WHIiTdWeHDMuXOCaDHGrodMOKBDvGGSsOTRzDEQ0GFIyHNPiOJxjOPZtIEIiEGM5BPKrMLZeBM8pBzCi MPJzTQIiEwzdEXRaWBMdykMJTXAiDGFkTIW9UzQgFSApUDIbCFbyXKQeSNMvAbv6IMTtFEMbSX4tIhCw ANUrNFR6PHsjKRZgFNQxtiSQZVLxRLYtQCTpOfYnJM KaGTGpQMxeTUJdUMZmKcJgJXTfNSXyZA1aLcGkIITsOHC9QEOmSUJhCGTcawEZZBJuJTTuMEu2RTPpHG EwTQAkATyjDVArCQAzXXE4FVLtYEKpAY9oZrRmEQWtIKSwCKEgFDBiESQglbVWERHmLZHgTDQ9LVZkJL HuLIIaJOwxDNSwCHPbZok2XTJzKUHkHL6cLqWrDAAj HQK7GDAqUNCtCHTjvnRSFDQdMZB6MGA8LAHpCLHbLINmUYvcHNWuWCVvWhS1ERMdZFNhWL5tRyZuAYZt AHW6EfQsRROiSIXbnvFIUUMhFFQzNJH2FgNhKIVcXERhJCqjWCDxBOGpWCSxPOE3TXY3VVMcHiIdNDkl KGFAKGgHV2WokdZlXrIAQ1snYs7gQeSqBWSTA9Hfz3 QgNSAwIFIKCj4+SxH7SZJ7uBKpHjj9TIB4HTqgMDMPFi== ID Date Data Source [id number] 01/13/2020 08:13:27 AM EDT [facility] Name Value Range Interpretation Code Description Data Corrie rce(s) Supporting Document(s) [facility] IKOANe1fDuUCPmRkd2WyAiEnUVJoGU7jvql6E9S9vDGkT3TarYWzd6koK6XdA8UmFPHkFRFCTJ5LlXGw jb2 [file] rF+xL1NMh34eRfrVz20/WpREUJOjW2iVg6fthvww54ierU/p4CmZ/w0ShvFP7/Anca/j+xtHgqTOOCX/j o+do8jc++v5of+Ji8BUuU2NXMr2aEfaUwk/53NMlv2 cSPo285p65n8hHA3j3+vPasDf2c4/hZL2rgYkAywMNLOFyx6Jw+2Y5Gz4H2QbuT1KL45Y9IaiXI5c8yE 80+AKxCz7ofr00q6AHl4V292DF43pv51kke0vtI8K97tYefdSK9KW4+CusX+gXl96hj7tI7tjgIL2SL4 jt3Rt30splPyz9l8XgwJ24uFbUN07vgL/utSba1uBS j6q5a79JUM1w8a2bxjqp7jUIjiI9qgWF7UgszS/+bZ30xwgtW82DdQ1FX9akUScEwnfcqR93m0av/SPr d7/M+kR67B+gbpe44a1Py78jWQnP1ns7+imG67hF010T51+C4T5YZBUzh28AWMRd8Qr6Xwg8swiSdd6A qDa5g2jaj5k3dxp/ZLKQvvD+Xq60msPO/hyperbaric nurse/2hI77 ec2B/D07bPHgC0nz0A36Ab1L/agL6xP/a7JelHV7bl/xvpxUp0IJbA8B0Ya+8b+9DicHNMctbq5FyDqy AsH6mPX53Wdw64PVjynabJWkru1FWBN48huju+skvD3O8KJz7kXgZO7I+Qz5q6eH51kbdwq4uAC7f8eO eBZ818r0+imMCFCnrB5DjL2YDGXcOQ0kv/In2i/Qvt X3h/4/3eW8oagAC7Wv7i/fINc/hnh3/G+pU5fl/C13t3G1V9oFO/0PzGC+qxkw8EMzY+94/OEdunf/pG OvzzhH+eDenoz/Ou59i8+1977q2o/MIwFXr65seo/3HrCKmbK9DlBq3hck/NifT7/YZh/crmXc+xCX2x fmUL/mrd/I8vErqrJtl+Odetusp9k79MivR1tQA5AK d9w2J/9CTSNzjnw0Y7o99F55/8a1i/VsVzB4108hsaP3R25wHQ/wXqd5VhC3sr/Xlj/G5N561trOx+FW N/33jQNvTdjnTH+/KLx5FjlsPL4pvY7i/d241/ma2rlat2sWj7z/bVgX514Ndy8/J9UB2nTJE6efIV+l 0p4Ys9mMuC9He+4V0a9xE2f0tqlF64jgc+qFjMgf9h U9pwkccQmqczsy320EFV3vbhsDrUwBRgX1Ke7l+/la2a9S97QYQe/7BJOcY9k3y2BL1m+RsfRexzjsBO n7NRr7d8P6J3A3s88udw+Yjyv/HZLsomS60/5cdvJCc+AxZBIgn030WdLCk3+6PPs+UbHki7CG0I110e W82o0E8/8Dm/OGL38MSCw6adk2/moydEDIgC6gTy41 n0y68c/RcYd2ts04ZPxyJd+isf1z/74VwsXGtoM1FA1ddKMrl0/dnHPb/g+D7JviTiuN7OWlM+98t8XP 5xVgH91qxLx37DbRS79ciDKn+89bYEyjs05BBhpCZsuD4t/+nrQWkzW6Pvj4Gtoe688T8CIcQL/L4GfQ 097fyng604IqzRiLjL31/hAU9p0m/600lfT9ezS7pk [file] /5xMsEhHeXfZ993KIb6Oeo8HGdGObxs1XQ5/P0W 9lVeX/ZGC/sq+ofu7sdOpDTmVDZIhUzY1J56+LkUycLKFb3w4963coPayRbth0/YFj11tWTFamCguQ7P Rh79y82dK5MK4Uq8S9gZ6xKm8EK1T+TdQN9AjUxIsM48jNj+Qd+t61F02A59a24KM8Cv1Y/gWXj727Aw O1bpZ/mD+3fWhrarEBmLOhZQcETIH2c3k52Xt7Gv0V ivJsarifFqTugdeoxXE+PVLP+wBy6wYw1b2viLqnQk+fbmNR/bHP+jnL+KdEc+GYk3k0G+Kb5Cdfkk+7 y2fQ0PT5kBUieM/Cpk0Qf2AyBKaIu5rO5nub2e2Ji9yG8Q9/pQ12bykEtC3+v/HvbVSUM/oB/QT+gn9I 62Ei8y7Wv/2LE6t8+eVSvPDj3igrnp0IsT72Ri9Vhr O/QGfdnP/He1mL1U+oh1zK4qkT5DvuMrFt9o81D+CoulSpjnai3yf1LQdfVccB/Qd+gNeoO+7KsO+6rD icxfdAbkWurTrtArKvxcq62dfL519EnUda1+65Tin2H78ZFSO7yjhZcmNY8TlYCz4ub/9sxeNIrlBG4Y eXP+gxa3Dr44nk4fnkXw0C/4zkkX8jcdmi8kx63zCN a907zBC+hrPbTH/FEYlhsfGoZU3q8k08kZB2jGQJw1+Ao37h6B5x4p1v7EQvicabIR+AvXmFf6yR93Py qiPod2tz/csM5eSmkB44J+xBey24sCs81V9P1jRip4As39CjiJf6t5q/mrqE8r/7cb+q/h+3aBY0QM0H u1h5i/oxBPqiEb5Ot0O/qaj+1W88/pix63h1Pgf9+8 w68L653BW6Y3qb/9DnZEjZYy1sXaRF/72qOk3XtcT/DtZ6EVCt19PTz30HjII/ffj60hG+Ud6L+Yv+ox btP3RRw/v4+DvBx3j/Stj3xu+6dDRLj23B5Z14v0OgUUzao/NDP/3k3o5e0g++t3Mg93br9jfCka4Q+F n8VDbCwMj+wzILnWs4+ApE+2L8NlM5J82g6/aJ//eO 9qq5rKTp1tELA2J5/aiLd06di22Yvxw//GAiH8o1Uzr/sub+TvNb/CdgZwk9J/jj8cgH4yyJ91U5bgV4 WsD+7zHuebevkL+7RH0+0k4nNddC09a92Sw3Xs7/dRp833DnV7RX995Xp7Mq+cg5L87Zz8Ri7LW9Pt8M /oJ/QOvUO/oF+Pfh/qqPSuB9/nLg6Oyw1fO+gb9A36 Lk2K0cY81Px8Z/oJ/YTeoXfo6/ymZudlFtM9HcKROt2NK/B5lMqMul0c+zS0b15Ku599nRsruGHHhvC/ oZ/QO/QO/kQ2zf6hTf1l5RO8NFEsrzs/psFM5lriUXi9HpthErOfx4S7/gvm3X8vhD8T0s4Q63ooF/qy car4eeQ+QxeB9xcynLr+eVSWaiiTq8IgVp9sdcB6Ff fX/KRh/5Vh/5Vh/5Vh/5Vh/6X0hpeRz9EW28qjjvSJR5Rc/kN8nRczcQ8mJ+pS2fKp53VQO/Qd+rI3rO D9uerujx/d6K64nZ8OSdBpDhupvEvhY4zy5a/Acx4Tkv9Fd2Ve/tNEHbb7hmZkyuV5rnMiganpdbHL3y BEwoMHxP7q4bEfalKYvF2jEZF1dWolro2wK+gVeoW+ QV/r+zY69Pi+A+WzWT6JpRiSR/E9V88pyDotWL8WjSB+Kq6ZZU/iXXfBIx3nb5Y5U9e40Y8r1Bhnkr57 y/+1Mg7vVFIphJ/IZ0Bf+9Ln9cqDptfIbkgj1x8vTichZmy484M+avsmFvNXmRboBdfXerfF/ZC131u+ t2azmungf9ih99mL3qR3uj+xqx8jJV94Vz/bU2Rf9Q +L+lhGcfygycr0of2PP6u3wNs9gbImMLkon/0qtmq/is1502X/0erQG/QGffkLtmr+4JiYr0Ml2D17/r 6vS801rf7qX9213SE16Ijuynh7lQo1KnsGwr33l5HiXl1X/qm6zX6dnho3+SdeQh6fKOG/x1Xr+yPmr3 ZfQoS2YAcq0cnGR3u+uiIfkWe/3JDtL+d5Bo963xXT j+tv/2juNjNk+1uM0Psmg8NgYLY3tyKlE+m/ASYArsc5552gkTd1j5j5L/tffFz7IfYfei6m3UQ2mA/1 itPeWsgF7vH5zjBrsetdDrD6+8l46qeSq07bZd534aa55XY6it5mVZqcFinbA/2MG0Or/w6t/Mhw2Ekc I1PNh9S+f8XBsqeh+2rZzyPWB/X3aw0bzsEp+3m08h dGK/9oNIFeoFfoFfoGfYO+Q9+hN+gN+hL8mV8LJ0W01X76GN80S2Mxj59jxcgAqln4Yr8Vp6C87Um1Ti ySvUUz0AU/0xYXScf69VO4g89Hy9Flf3IfqSZtfYTaoLRhbMWPnK3Me/PxWzhBaU2i8mdYPkh/aBjGK8 V3BAfaCJO2hKpSDsJ5ItKQ+uDA+uDA+uDA+uCI+aso yyj/aAyUF/NXA/NXA/NXA/oUvGoGEJ41+h+EYkRRjLNbG29kib/83nKONpno9hcR6z/GqP/vmOUfjXlB X/OTY9Z+wjHLPxpToa/9SGPW/pwxO/QdeoPeoB/QD+Q/8irEvzZ6Hl8W+tp/Jimmy+JAMES+JAMES+JAMES+OFyh [file] v/i794yN074+/l2Zv53038i8744+8syyY0g49jhrtzj+w6/vxrex81otm7+++/jV1+/fPrz/+JOm1475 14jbDNq9Mv0uT1a3a1nSvFS1mP++/u7bt4/ 549+UEk958W0uzi+H72i/qcm14Xz/fPnz3q/dvr2e/gcHhB18vDco0ik+mzo6Pwa+++Pj2i9+9NB++em ne/+d/+j+//M3de8jPm/7mVZLXhV/8008v2+G57sv+yy/ff/32xTe//s27D++/bLfeM1720A8H0rw/+H bZZ//Xu68/uw+Iv7L9/NK3X3/3P70p8lTU/v4/yPE2 Ge4cv/7m7duv/unrr/2mIoWkq0p97agocw6a4//G6qpSbhy51g/92x/+8uMP//r2X//X22//8Mc/fv+X v/zw/R///u3L7//0hx/++PYv/0n8X/7u7c9/els/V//5/s7+ubTPVd/e/fpvvsk+wHDbnq8160//yscu x9EajlD//kQ6d3txLxyws/4u6KjQO6J9f/UPE+gmba c19abvozbEsI1X6RAp1a54ILVtQV/3ljiCv06/cu4TsNIm7QRXz/lkPTB7wV9+9crea00S/PbVLz68++ VXv/5jmU5Kv1kMt8UwfuOker2s2/n1asG/+F2k9kUfIxTK6fDQaNL/+8Of/z8y6r0j/b//8En2r3/oW0 TUuS/68a8/zf1gr/f/ae4H/M2Htz/86d9/+Mv/+Ju3 j+xPfX6a/I50TbqGD8F/2D9/+PbtX//7693/8Oc//TT7HY/iG8oUDc/2zx9//i7hz02bwC9nkGLCy7/7 kE9y3y+0g3DiZ7w25EPqhMbvg9PfsHAbjsXWaaCUf09+vn3/P3/90468tiii66Wg04/l3O3t6SD0Gh/9 X3/5l7/7ydXnO/zjDz9+/4gNmeD6HJ/i+//+++//+o fv//VUEI2fR//FO9Sbna97+c8/rf9vpoEt5ezef8//3Iwd+xT1t6Bmvr/+8Pv/509/+P3r+Z/thcc57T JN7hGX/aSwD68lOc//9v1X//d3H95/+9eS4KzNQsS1v/71+68/fvs5u/n9O/z/v+F7qaAh2wS5g+//2w 5k7ubof5h5rP3jutipKOy8q/8aEV7/7ekuiqi9/r29 gfmf4vf11bVP0y12/pLI8ownA1v+8DrzvISl032tZ4z7pKzmAX+5/16IxRjqBdSaMGC8tvIvvVroriHj WauOBKdlAQDoGli5KD0UjRFzWDZuD8G0VFSoxf7fIYLeUGLhiPKwZtCwBGKPGB0GjWNcOG3NFLd6JAQh LHHoFhDiTDDzkhU3JCSxKZMtJEBxP7KtwtFboRNnYJ AgUj4+CH4ux6NiSfTuTSBwQca9UF2PdQCqNW0BaDCzdF2sclYrM509ioTwOHEpHwvxf9ZcTMcnKYMJNJ 1VGTH3ZXI1XRCqLj0+XV3eu9IdDoElECItEnl0FC5FpMAtz5TcYY9ZB6MhYYXxWUYKULF8m1XcSVThxf juqzcpX5NdJSL7dL3pART3WXGqKFzpSZJrCIriEVA0 TQRuYDspQCKfMMLjSDDdTWOvBHm5hEQjXQ5YP4KsJXIkMYGNHCIrjlEcEh3lEVEDOyCGOgpaO4PBBJXl Mxq5LKRdBMhpD1H2YnbpR7VcBO6PW1KnFKLhAHXVEDQrvbVlQU8BjyNupE1pRGrFNKCWUStMBQytEkK3 o73znbZRNVTsUADsEVkeLCTyEMLuLQEsGCFaGAIiHP NtPBSnHP5EQ2HbHEOeETTDEUY9j2JcCFMltqrjnjpdGb7oogVcDga+HncdMJUby1BiMZbmE5R3bYGtR2 MpQ8EjGW4HuBRxYWwoKBTsNKSmHNLyG683prXuPP4+JK8sf3UmJmgmOETIHUQgNLOgGTGdCYP9WiFcYL SzTTRwXBPeKwK1RkAiLrATURBgYHI6IjX4QhVgJWFz RMPsDAjzRVOoTOI4LKOpPVTbZMCwEF7aHtOwGKXdZbU0MZBxXCCxDAIxmzMEWAHlIIGqVATjBNW0JWHd JDBqFXmoRMQgJMFxGHL1REAqSZJjEM7iHuDrCPDwRJTpGeclKOLbYHQpmsDOLFNoSDFnKZI7BhIiZKNe BYMhDNdpNRMfHQFoSea0XGQpOBQeXM3zYyPeRSSxLV V2WXjrWLGhZGFomwVDFTYzSSLwMXHuVkEoQBMdUQDwUVwjSBEsBVPlZrXaHZMiQEIgQV2wRsPyACQeQB I7OOJzUEAxPNCxstDBMHOqBKBtIPe3KRErGATsHVRrSNosVZIcXSEgNHI3LATgIYQbZC4lErQeXHFfTG TmYMOcJXIeNEBczoDHJNCwKPAvNGO3JGMjCPDwQELv DYxuQAHbPVMoIky2ZFYbCUUkBK5eSsFrNIQpMQK7ANHxKFJrIUShwdZUQEZlQUE4LvbmXvEeZPVmYLNa SIeuGCIcELOxLoY6VJYqDDUuSJ2lXlBaFPQpXDX2RpIeFGRfVHCguwLCHVKkYWVlQYZ7IsMhSSNzXEAn THcjQWOcCEYzQVBsBMX7NUD7KRSsYcQqPDesATEKYX kLC7BqzgTvNwUUE2cwTi2cAvIjRAFON3Sly9XcXHRfJWUPJj8+TzQ6FYG5nVVyXek7OoTcJdwrJUUIPe == ID Date Data Source [id number] 01/12/2020 05:51:13 AM EDT [facility] Name Value Range Interpretation Code Description Data [facility](s) Supporting Document(s) Bicarbonate [Moles/volume] in Serum 19 mmol/L 22-29 L [facility] Chloride [Moles/volume] in Serum or Plasma 111 mmol/L 98-107 H [facility] Creatinine [Mass/volume] in Serum or Plasma 0.66 mg/dL 0.50-0.90 [facility] Glucose [Mass/volume] in Serum or Plasma 94 mg/dL 70-140 [facility] Potassium [Moles/volume] in Serum or Plasma 3.7 mmol/L 3.4-5.1 [facility] Sodium [Moles/volume] in Serum or Plasma 137 mmol/L 136-145 [facility] Urea nitrogen [Mass/volume] in Serum or Plasma 9 mg/dL 6- [facility] QA FLAGS AND/OR RANGES MODIFIED BY [employer] UPDATE ON 01/11 AT 151 Anion gap 3 in Serum or Plasma 8 mmol/L 8 [facility] Osmolality of Serum or Plasma by calculation 282 mosm/kg 275-300 [facility] Creatinine/Urea nitrogen [Mass Ratio] in Serum or Plasma 13 [facility] Calcium [Mass/volume] in Serum or Plasma 7.7 mg/dL 8.6-10.0 L [facility] QA FLAGS AND/OR RANGES MODIFIED BY [employer] UPDATE ON 01/11 AT 1514 Glomerular filtration rate/1.73 sq M pre dicted among non-blacks [Volume Rate/Area] in Serum or Plasma by Creatinine-based formula (MDRD) >6 0 [facility] Glomerular filtration rate/1.73 sq M pre dicted among blacks [Volume Rate/Area] in Serum or Plasma by Creatinine-based formula (MDRD) >60 [facility] ID Date Data Source [id number] 01/11/2020 04:24:53 PM EDT [facility] Name Value Range Interpretation Code Description Data Corrie rce(s) Supporting Document(s) Bicarbonate [Moles/volume] in Serum 20 mmol/L 22-29 L [facility] Chloride [Moles/volume] in Serum or Plasma 105 mmol/L 98-107 [facility] Creatinine [Mass/volume] in Serum or Plasma 0.66 mg/dL 0.50-0.90 [facility] Glucose [Mass/volume] in Serum or Plasma 89 mg/dL 70-140 [facility] Potassium [Moles/volume] in Serum or Plasma 3.9 mmol/L 3.4-5.1 [facility] Hemolyzed Sodium [Moles/volume] in Serum or Plasma 136 mmol/L 136-145 [facility] Urea nitrogen [Mass/volume] in Serum or Plasma 8 mg/dL 6-20 [facility] QA FLAGS AND/OR RANGES MODIFIED BY [employer] UPDATE ON 01/11 AT 1515 Anion gap 3 in Serum or Plasma 11 mmol/L - [facility] Osmolality of Serum or Plasma by calculation 280 mosm/kg 275-300 [facility] Creatinine/Urea nitrogen [Mass Ratio] in Serum or Plasma 12 [facility] Calcium [Mass/volume] in Serum or Plasma 8.4 mg/dL 8.6-10.0 L [facility] QA FLAGS AND/OR RANGES MODIFIED BY [employer] UPDATE ON 01/11 AT 1515 Glomerular filtration rate/1.73 sq M pre dicted among non-blacks [Volume Rate/Area] in Serum or Plasma by Creatinine-based formula (MDRD) >6 0 [facility] Glomerular filtration rate/1.73 sq M pre dicted among blacks [Volume Rate/Area] in Serum or Plasma by Creatinine-based formula (MDRD) >60 [facility] ID Date Data Source [id number] 01/11/2020 09:25:31 AM [facility] Name Value Range Interpretation Code Description Data Corrie rce(s) Supporting Document(s) Sodium [Moles/volume] in Blood 138 mmol/L 136-145 [facility] Potassium [Moles/volume] in Blood 3.8 mmol/L 3.4-5.1 [facility] Chloride [Moles/volume] in Blood 108 mmol/L 98-107 H [facility] Carbon dioxide, total [Moles/volume] in Blood 22 mmol/L 22-29 [facility] Calcium.ionized [Moles/volume] in Blood 1.16 mmol/L 1.13-1.32 [facility] Glucose [Mass/volume] in Blood 115 mg/dL 70-140 [facility] Urea nitrogen [Mass/volume] in Blood 8 mg/dL 6-20 [facility] QA FLAGS AND/OR RANGES MODIFIED BY [employer] UPDATE ON 01/11 AT 1515 Creatinine [Mass/volume] in Blood 0.5 mg/dL 0.50-0.90 [facility] Hematocrit [Volume Fraction] of Blood 35 % 36-45 L [facility] Hemoglobin [Mass/volume] in Blood by calculation 11.9 g/dL 11.5-15.5 [facility] ID Date Data Source [id number] 01/11/2020 10:26:42 AM [facility] Name Value Range Interpretation Code Description Data Corrie rce(s) Supporting Document(s) Bicarbonate [Moles/volume] in Serum 22 mmol/L 22-29 [facility] Chloride [Moles/volume] in Serum or Plasma 104 mmol/L 98-107 [facility] Creatinine [Mass/volume] in Serum or Plasma 0.66 mg/dL 0.50-0.90 [facility] Glucose [Mass/volume] in Serum or Plasma 115 mg/dL 70-140 [facility] Potassium [Moles/volume] in Serum or Plasma 4.0 mmol/L 3.4-5.1 [facility] Hemolyzed Sodium [Moles/volume] in Serum or Plasma 133 mmol/L 136-145 L [facility] Urea nitrogen [Mass/volume] in Serum or Plasma 9 mg/dL 6-20 [facility] QA FLAGS AND/OR RANGES MODIFIED BY [employer] UPDATE ON 01/11 AT 1515 Anion gap 3 in Serum or Plasma 7 mmol/L 8-15 L [facility] Osmolality of Serum or Plasma by calculation 276 mosm/kg 275-300 [facility] Creatinine/Urea nitrogen [Mass Ratio] in Serum or Plasma 14 [facility] Calcium [Mass/volume] in Serum or Plasma 8.2 mg/dL 8.6-10.0 [facility] QA FLAGS AND/OR RANGES MODIFIED BY [employer] UPDATE ON 01/11 AT 1515 Glomerular filtration rate/1.73 sq M pre dicted among non-blacks [Volume Rate/Area] in Serum or Plasma by Creatinine-based formula (MDRD) >6 0 [facility] Glomerular filtration rate/1.73 sq M pre dicted among blacks [Volume Rate/Area] in Serum or Plasma by Creatinine-based formula (MDRD) >60 [facility] ID Date Data Source [id number] 01/06/2020 09:55:00 AM [facility] Name Value Range Interpretation Code Description Data Corrie rce(s) Supporting Document(s) Albumin [Mass/volume] in Serum or Plasma by Bromocresol green (BCG) dye binding method 4.6 g[facility].5[facility] Bil[facility] [Mass/volume] in Serum or Plasma 0.4 mg/dL <1.2 [facility] Calcium [Mass/volume] in Serum or Plasma 8.8 mg/dL 8.6-10.0 [facility] Chloride [Moles/volume] in Serum or Plasma 102 mmol/L 98-107 [facility] Creatinine [Mass/volume] in Serum or Plasma 0.74 mg/dL 0.50-0.90 [facility] Glucose [Mass/volume] in Serum or Plasma 77 mg/dL 70-140 [facility] Alkaline phosphatase [Enzymatic activity/volume] in Serum or Plasma 57 U/L 35-104 [facility] Potassium [Moles/volume] in Serum or Plasma 3.9 mmol/L 3.4-5.1 [facility] Protein [Mass/volume] in Serum or Plasma 7.2 g/dL 6.4-8.3 [facility] Sodium [Moles/volume] in Serum or Plasma 137 mmol/L 136-145 [facility] Aspartate aminotransferase [Enzymatic activity/volume] in Serum or Plasma 16 U/L <32 [facility] Urea nitrogen [Mass/volume] in Serum or Plasma 9 mg/dL 6-20 [facility] Osmolality of Serum or Plasma by calculation 281 mosm/kg 275-300 [facility] Creatinine/Urea nitrogen [Mass Ratio] in Serum or Plasma 12 [facility] Bicarbonate [Moles/volume] in Serum 26 mmol/L 22-29 [facility] Alanine aminotransferase [Enzymatic activity/volume] in Seru m or Plasma 7 U/L <33 [facility] Anion gap 3 in Serum or Plasma 9 mmol/L 8-15 [facility] Glomerular filtration rate/1.73 sq M pre dicted among non-blacks [Volume Rate/Area] in Serum or Plasma by Creatinine-based formula (MDRD) >6 0 [facility] Glomerular filtration rate/1.73 sq M pre dicted among blacks [Volume Rate/Area] in Serum or Plasma by Creatinine-based formula (MDRD) >60 [facility] ID Date Data Source [id number] 01/06/2020 10:10:43 AM [facility] Name Value Range Interpretation Code Description Data Corrie rce(s) Supporting Document(s) Lactate dehydrogenase [Enzymatic activit y/volume] in Serum or Plasma by Lactate to pyruvate reaction 146 U/L 122-214 [facility] ID Date Data Source [id number] 01/06/2020 11:41:03 AM [facility] Name Value Range Interpretation Code Description Data Corrie rce(s) Supporting Document(s) Leukocytes [#/volume] in Blood by Automated count 6.1 10*3/uL 4-10 [facility] Erythrocytes [#/volume] in Blood by Automated count 4.89 10*6/uL 4.1- 5.3 [facility] Hemoglobin [Mass/volume] in Blood 13.4 g/dL 11.5-15.5 [facility] Hematocrit [Volume Fraction] of Blood by Automated count 41.2 % 3 6-45 [facility] Erythrocyte mean corpuscular volume [Entitic volume] by Auto mated count 84.3 fL 80-96 [facility] Erythrocyte mean corpuscular hemoglobin [Entitic mass] by Automated count 27.5 pg 27-33 [facility] Erythrocyte mean corpuscular hemoglobin concentration [Mass/volume] by Automated count 32.6 g/dL [facility].0-[facility] distribution width [Ratio] by Automated count 14.2 % 11.5-14.5 [facility] Platelets [#/volume] in Blood by Automated count 188 10*3/uL 150-400 [facility] Confirmed Differential cell count method - Blood [facility] Neutrophils/100 leukocytes in Blood by Automated count 66 % [facility] Lymphocytes/100 leukocytes in Blood by Automated count 30 % [facility] Monocytes/100 leukocytes in Blood by Automated count 3 % [facility] Basophils/100 leukocytes in Blood by Automated count 1 % [facility] Neutrophils [#/volume] in Blood by Automated count 4.06 10*3/uL 1.8-7 .0 [facility] Lymphocytes [#/volume] in Blood by Automated count 1.81 10*3/uL 1.2-4 .0 [facility] Monocytes [#/volume] in Blood by Automated count 0.20 10*3/uL 0-0.8 [facility] Basophils [#/volume] in Blood by Automated count 0.03 10*3/uL 0-0.2 [facility] ID Date Data Source [id number] 11/29/2019 02:42:20 AM EDT [facility] Name Value Range Interpretation Code Description Data Corrie rce(s) Supporting Document(s) Progress Note [facility] EHFKSe5qZoMDMpSo46/TEHlpNRKff0DtILxxWUo3RDsfARXsO7VxJMU9yO3cTMR0STaREqAlVcWjJTR8 lbm [file] KjOVwqGQIzPIl7Tjn1PBd0AVTvDWC0OW5tLKUDFk3+IVnngOFkzJsxISAKSyqsIkHCEnSzQD3MMZg= ID Date Data Source [id number] 12/05/2019 01:05:00 AM EDT [facility] Name Value Range Interpretation Code Description Data Corrie rce(s) Supporting Document(s) Levetiracetam, S 20.6 ug/mL 10.0-40.0 [facility] This test was developed and its performa nce characteristicsdetermined by [facility]. It has not been cleared or approvedby the Food and Drug Administration. ID Date Data Source [id number] 11/06/2019 12:13:11 AM EDT [facility] Name Value Range Interpretation Code Description Data Corrie rce(s) Supporting Document(s) Progress Note [facility] ZBNMDu3wFjRWNsTa26/WDOonQRRev6HyQVekXNn8WDgpWDKbZ1OuNOS8fR6kSOC1GSsFByVzYeOhVhUr lbm [file] /WGKskHKUHtU8C9seRef8wi+zLXp/IN HOME BABY SITTER/n5Gyn9FeCtHbZmwtBsjiRhpR48rqNDdjQnxdYrJTdnp+rZl [file] mUyLmeCglcbKZBzLEAwd2xFP6CyEIIsDBwYeQmzu+nAaKn7EQTsNuai7oaHGh45bK/3/H[employer] Checker+xcs+M4h5m [file] AgICAgICAgICAgICAgICAgICAgICAgICAgICAgICAgICAgICAgICAgICAgICAgICAgICAgICAgICAgIC DrQVQwCGCfDKKaWECuMWQiACXuSQRdJP7WGMVwKRHrZWFeXGTtFVVwBMIeIBSaMAQxEKJaVFUqJROwHS AgICAgICAgICAgICAgICAgICAgICAgICAgICAgICAg AXBcDAXuGNEfJTAzAARgPBDmXRRkTYTcXUDvTIQfYJGnCO2YIWElJYPnKFHmEOWhPWJqSXYfCEUoRTHl ICAgICAgICAgICAgICAgICAgICAgICAgICAgICAgICAgICAgICAgICAgICAgICAgICAgICAgICAgICAg WIPnRZQnCHDgWRJqYLCxFA9VCADzILCtFXKnOOOtGK AgICAgICAgICAgICAgICAgICAgICAgICAgICAgICAgICAgICAgICAgICAgICAgICAgICAgICAgICAgIC TpRCZmXMUnTWSmHKIjCMGnSJDnEFQlYKYeDV7ASIVeGTGkRUIyIFUnUXEqEWGnNLNlXZKjFOOwIHMvVT AgICAgICAgICAgICAgICAgICAgICAgICAgICAgICAg HTUsGIJcUKOyWGBrBFPnFYFvAZTxLMWdWEWsGSJkTGEaDHEeCQ4VNVPeTCXbWNSaELAhKWLwJHCoBDVw ICAgICAgICAgICAgICAgICAgICAgICAgICAgICAgICAgICAgICAgICAgICAgICAgICAgICAgICAgICAg DRFgXKMqQSAlHQNpBSRrIXZgNH9OZKEwFWFiBEEsHY AgICAgICAgICAgICAgICAgICAgICAgICAgICAgICAgICAgICAgICAgICAgICAgICAgICAgICAgICAgIC MrJHRiFAHeRIVtWWKjIDMdIYJbPRHgJHHlHGIzYT0QTXZkBITuPGSzNJBmZVNpDEKjXOEyBABwRBIiMG AgICAgICAgICAgICAgICAgICAgICAgICAgICAgICAg CVRpEVBvRTOfMZKbOPWxRNWwBUPmVPFyKNOkORNsUVBlBNYvSXWyCG4CQDEaYMJdIAFmHLZjQVSjROLc ICAgICAgICAgICAgICAgICAgICAgICAgICAgICAgICAgICAgICAgICAgICAgICAgICAgICAgICAgICAg LSQqVTDaYHMlOVJmMVFwALIaCMPmOU8RIBIpENVvYD AgICAgICAgICAgICAgICAgICAgICAgICAgICAgICAgICAgICAgICAgICAgICAgICAgICAgICAgICAgIC XuCZDhENWrFUGeTIKyOIQvXMAyOJMyUPBzZYSyFZEuGU0FTA46rVBev8W1ZZPiMK0cadt/Og2QXNftze CfrTAnYT4NOjYaCJ5vlp5GGrGtZI3tzp9MIMfIGvVn C1M2mMUdOHHvKFHUQxGfR45aOYkcFf61AIdvGJAqWoNkTCg0Ll7HGdZjU3zfUTYaKnY5BHYiRtH7WWGh CwN3QFTmKaJbHXVaGUPkGMHySHVOSKM2YXXcPcJyGuTxZGPhCUchITDNCTVuHKTzJuTmEEevJZ9Sm3Ip qRT1PVl+Eb4COJ8fx5AkHAbcRNNmFZ6qpf5VVLvDFp AvN8HamuQ2CUT7ECRcSp4CSCLrZRKnkAJtFGOmTTJOVnUqG3DhzD55XGALJd0+NSiinhLsSijBVdM1RY Odw7SkPTt2QG8EOCXaOGi5eRKeKTRqQ7Usp3AeIn56BWMoMrucEFmbqzytsD3tDTasl3AfEV8EMUA9DL whQzBhRlBmJHYsCNvxHQKGBIuUCzFpF1Lbn9TrHhJ2 GNFwHdZzLCgnVUPlMsH4EE22tSjyIH7CMWMvSMIiXV80RDB8LSEzIn4NZo2WVkXxIU6cfm6GMVDoRJHe IigEVym6OMbvTX6MpBVsU8RxpGEny5dKHgYyB4QQTEE9GJWpFi0PAAVoEzTzPAJcJZopCR4pKRZpHIRK cUgjocA0ZA5ZQY8jouAyTB3MUjYrJp4tAo3QOqOqF2 FaK6McCBMrAZFZNJtySR2OCVqpCI5sJR6Pr4WMrWYxwI0phr1QJRKcJBKzVmyfyo7UOelyT7S4iMnxGU CyYxbgIRPKZUrfHD1HVKAsRRN9TOTeKqLlDYDDEiSgQ27xVX1WF8Ybd72pLeS8JUGrPnKtSNpgTS72aK qzlnMmrDXgsYowQQ7QEa1+DQplbmRvYmoNCnhyZWYN PbUiSKPCUqOyRBHwGMIySCRaBlW9YyErHi2HEPBhQOPvCLSsJwDmVJEkSQUfMFapMJMpGIV1AhN9DFKh CCAtNI1EQcPeMFSfORV1QAucQBPkEHSlhy3MCSJbTVMbZJB0AyQjHURzZTTwXHrbLNTuXEN0JOn8PVPm VBRpXN4GXvDcJPFdPBO1MLTmXBKjZULdwy0CJUZiDE LmCOY1SjEqCNJkXSBcHXhoKRJnSNI4IQs9JYThKYVbII4ZJuLcVSMhLDDwOcLxTOOxUMYtav2YQWUbRI YcIUFePSMjLBDmQAFpGMwpKRFqLQQ7IfU5OPRdATViOE5YWtSmMQDwLFN7ULTqSXKlOKCjun6KYKGpKE UiFna4UgXwFNHrGGIvKVgbOPShWXB9XQM2NFRkWKId GF8MSsGrDJTqQvYtUaRxNHIiBKChmx3STMOcQZFaWLY8JGXwJXRwJAOxPYmnIYKdTTGwQoL3TSKeJHMv JI5JNkLnPTHsFuL9VKYhPPSkTQSlnt4KOBFjEGHcOyJfUDAfTOIcLKExTXlnYNEmONK9LoW2VVQpEZKo GC5NXpFoGHDeOobiFORvVNZzMECnhn2VKNJfZPZoLA CrUBHuIUQoIRJlWBatGNJpOBAdAhYrIUKdGLEcJO1JBcDjUYLbCwH6WIwzYUVoBPUfcu5CISPjIIViCW W8HRItTQWuERYpPAxcXEDeVJKwRsSdJWZpLFDcYM2RWwPeDAPaAsE8WGWmBWSrGCAbwk4EBTIyOUAxPM i1ZMDfDUUqYNCnDRvxGULtDBZnDPUbBOWhWFQmUA6K UtEeFTXvZVRvZcUiCKDyIUGqta7JUXOiAAL1OxNcJWEhKXTiSSEnCOgwPARdSGNcEkH7BTCnBVAxUX8E HkIhBVTvCML8PPGjOTAiGAUaph2YHHErUHJ7HGmrQwSwLZBsTFXuHKduMYVrVOB9WHI2HXRuPQNfNW6W HgZiSTHaABIqXMMuONJdZLLrhx6NLDFuBGK2ZFVvOS MuQGCzJCUdPAsuSGThQSM9LOVlTMRsYETmXQ8HWnIfCCOhTKdzUyLuOVJcPCPhqq7ROKYhHDN9VxGiOK AlGJOhJNWlNTn4ubCddWVfODe1AO3LK2TrbwXpLVPBZq8Ot202TKKsPWZiCi1CZ8yrRz4bIVOgVOLMCr 3KKWj8YZDsBtk1XyHrHZwrRtG2ISW3IpT7JxCgYACn YWVhYjU+CSc8D7FsHteuG4U6GVV0Hhx7XXXgTho8PcWaOcUcENKnLX2nSGMGJa0+DQpzdGFydHhyZWYN NzZ7YET6TGjgZEVVGl4N ID Date Data Source [id number] 11/05/2019 01:06:00 PM EDT [facility] ([facility]) Name Value Range Interpretation Code Description Data Corrie rce(s) Supporting Document(s) Free T4 2.21 ng/dL 0.76-1.46 [facility] ([facility]) Thyroid Stimulating Hormone Laboratory test result 0.358-3.740 [facility] ([facility]) ID Date Data Source [id number] 09/01/2019 08:30:00 AM EDT [facility] ([facility]) Name Value Range Interpretation Code Description Data Corrie rce(s) Supporting Document(s) Thyroglobulin Ab [Units/volume] in Serum or Plasma Laboratory test re sult [facility] ([facility]) ID Date Data Source [id number] 09/01/2019 08:30:00 AM EDT [facility] ([facility]) Name Value Range Interpretation Code Description Data Corrie rce(s) Supporting Document(s) Thyroid Stimulating Hormone 5.420 uIU/ML 0.358-3.740 [facility] ([facility]) Free T4 0.82 ng/dL 0.76-1.46 [facility] ([facility]) ID Date Data Source [id number] 09/01/2019 08:30:00 AM EDT [facility] ([facility]) Name Value Range Interpretation Code Description Data Corrie rce(s) Supporting Document(s) Thyroperoxidase Ab [Units/volume] in Serum or Plasma 28.6 U/ML [facility] ([facility]) ID Date Data Source [id number] 08/08/2019 07:00:00 PM EDT [facility] Name Value Range Interpretation Code Description Data Corrie rce(s) Supporting Document(s) Progress Note [facility] KVQSJu2uOcTAMoXh16/VMYduMDGct7YnABttQSb6LTabPYNmD9GcVLW1qI7kCKW9OYzJDuVoGnTlQAPy [facility] [file] PVX0BTAFuzcUgYdxTyaxmEIQhNXBde8vOJ3LaFPEjUOoHkNzpf+kPhMj7AIViJooy3lwSJg99pH/3/H[employer] Checker [file] SP/MAP/T+imaging specialist+5//LpUfXYV2N73iTjnNdILp/iPqTWe [file] 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+Ey6PQRQqQAa6I6C1SEPiDTu5E2SLO6OYBXUqYTvhEOjkZPBpQWd2O1Q8EZXsR4JLH5Pojkltrj8+ HN8XS80XGQOcWSz0S9B4uCDqB0A5bYiRfTP3IB8RCV8ReTe4pRUxgG2+CV4DP0ONOuMcHMx7P8Q2rKGu B7P9aEbYtLI3FE2HFT9RiZSdDKDqrsJhKn9pD6SPPQ qZKvEPVYV3NC5GtUNuRK1JrKHVJ0ImoQQkOn9yLQlkrNOvkW5qMs7bTZcjKA2UUuIDJVdHVBM5PO0DyY OuRQ9HxGTFD9XcbEBlFe1lGFvpiPNbpj7+BY7YBXBfKj1EOc7+LTxemwWoXqeYOgL4XWXis8EqHBc4BL 9IYL8drRxkCKG9Ti1CmSE8kARiW0hOVQ6LkFWhJ10f oHHoQBQvSv6CTqO9fyPzpZ8WYM42yPZid1P7CSJjM2znTAaxv79rJGqyQKnIUW1hMEWOMEppSIhdVVD3 WuOavxdlFLGdGs9RUiQbWXf0rC5epMQ7WJV6TesgwVGvGCwwOrLhEhIrHzU9oWoywbu2KZwdVE9yENgs czptZXRhLyc+ZNunXXMcFKFzAajIAGWsoN1yrjK8dv XaEKqbcVVqQj7uo7n5JpjmGn4bDa4tXUs4BxChEuHjWFVcIq4grR71TYidtxXsGa5IWcWaVMQ9Z4ZrQe pSREY+PNogOMtlwGk7wLNrRCFyXm7CLJJaQTWdRLRgJIOeZOZzRQHuEYJfADHgOLLaVJOlDNKtVUQkIX AgICAgICAgICAgICAgICAgICAgICAgICAgICAgICAg TPYtOYUvGGCtVXFoKXQzKRHxVJSxWLWaZYNqLKRgRE3NGYEjWVPaRKGlNAFpNXHjCHNuLFKqMZWaWJCt ICAgICAgICAgICAgICAgICAgICAgICAgICAgICAgICAgICAgICAgICAgICAgICAgICAgICAgICAgICAg KAVfTSMkXKDdJYHiPG7VLBWtPNMaJUOyDFKnBEChML AgICAgICAgICAgICAgICAgICAgICAgICAgICAgICAgICAgICAgICAgICAgICAgICAgICAgICAgICAgIC RcDWBbECOvTETfMFBiDRQwTXXjOEGpRK8PADXuIZZvQSOnKALqTDXcEHHvFTAdAAFrUSVjKWAaVOMyHT AgICAgICAgICAgICAgICAgICAgICAgICAgICAgICAg NVUpCZEyPPKzKCCuPCCePBYrUWOjKAXwCRZxABLzIUMaBC2OTRPsVCXdQJJpTKTbRKPbSNKrXZYnYFAp ICAgICAgICAgICAgICAgICAgICAgICAgICAgICAgICAgICAgICAgICAgICAgICAgICAgICAgICAgICAg KFMbHARtSROuFRJbTCBhJR0KYWOeYFHbNEKnARNkBL AgICAgICAgICAgICAgICAgICAgICAgICAgICAgICAgICAgICAgICAgICAgICAgICAgICAgICAgICAgIC BhORIxNCJbJWNqNOGmYESpVZZmDIDbFOMwEM5WSLGkKKWqXNTeNGDvAYLaTERxBNCnMQEnLUNyRHZtEA AgICAgICAgICAgICAgICAgICAgICAgICAgICAgICAg BZGoVZAlDYBuSEVoIYZqJKWyTFNvZAXiGUFyXKUxIJDmQASfTV6AIZWfLZIlTOGtTNIqGFJsCLIgCVSi ICAgICAgICAgICAgICAgICAgICAgICAgICAgICAgICAgICAgICAgICAgICAgICAgICAgICAgICAgICAg DYSdZSEcGJLmQFYgIPVgRGFiFM7UPMXbOGUfXOQyVB AgICAgICAgICAgICAgICAgICAgICAgICAgICAgICAgICAgICAgICAgICAgICAgICAgICAgICAgICAgIC TxDHItLNMuSNToAVDwHWOhAUKaMYOyCZUbDBZiHF6PYSAmGAEcASOoLZCuDXEeZGLqOXIpFASrYMRyCY AgICAgICAgICAgICAgICAgICAgICAgICAgICAgICAg WDCfUKJlXBPnAVJsVRXuCIQyAMPhJLFvQAHlDBLqTSAcUCLvEGZoSW3IIX05yDRqk9Q5XADqIM2mqzc/ Zw3RZKjytyLsfLEjIJ7HGvSaRE7psn0YGgKuGS5nhg0EKVjXSeErW3R6pCLhVWQrBZVBEyDzI07dYRhy Py02NOzwCQMjPiKiWIa2Qj2ZBaZlP9ouXPFsCuB9IL YiMnW8FOPaLuX1CTDqGgCiUGIwEHPaOMVnIFTGBOY3YJPeKnTuGmVtORSlGHjoJEJDJQQvSROzKtFpDR gcRB9Ax9NzlME7KQe+Ss9VTH4jw5DgBWzkCZYaEY7zqe1BERiWNtNyK9GpemC0XAU2QWSzHd7SLHZwRL OxiAJmKUZbXHRWYdMxM3HmdY81NGCCPc8+DQplbmRv MoaGRvU7IRUfr0NuWDs9HY5WVQJbCVz2sZRrEBJqM7Huq0JfXe60AUYoZibgDJfpksqshC1fYVoyn7Sd WI1RQYJ5PVTrXvFmXzOgPTZaRItyQXATIYtMDrBoO0Zgq4MiLiM4JKHrYmExJXbmGPNiGsD1WN45pDrl RM4BJWHrFLKiQB78ERZ4JDGjHe1XYg0BIoLcVN3gen 4ZEMKxYQWuYvnYCwy7QTyuXB4BhXKqV1SjnOPmz7vFJfMnC1ZEOYW9WEEhHw3LJOKxIvBpLEYyXPqoDE 3eCQRuXXZYkIqqupO2KL4ZRF3jbdEcVP4JGyVmNz4uLz6PTvKeA1NiS9UeGYKvJDNZSIosNF8REJgyYX 9jMY4Xm7TSeMGpjQ6jtg7UHJHxVBVtPsfqwx6ZVcse V4I9hFgxJSQvCajiUFLLJSytYA5CUIJwGYP7URBdTiNoMMLUFtEvY99tDQ2FS5Doj47pZpT7RKUfAkHo MZbbCO52yVpbkgDqhLTrlJuiGU5CMl0+DQplbmRvYmoNCnhyZWYNCjAgNDENCjAwMDAwMDAwMDAgNjU1 ThAlKo5GIVPbORIwXIHgJvYhBKNsPGQtMSprJZLnTT K3QdOvLGInMWIkTD8TLiYqVVEjNKhxFLpoQLPpCCVwwv3TEEBcOIAnAGX8FgJwOGBgKJNwAWfcHEEuRT F2Wfl1CHNuLCLqWL2IGfEbFACpGTF8PGEzRZMiOKAthr2CKKUxLSCtUPG2OLAeWVDyKPVpRPnoOOJxJF Q7Qyw2YGCxFJFlIH5ESePjRKIeMQFtTfDoWKByBRPz ht0JAWUnAVIlYLG8FoAiYTOwBYPnXBrxQPCmHTXiQTIdIZViMSYxHS1UXhOyYZJzKDGcJvwzNTYoQYUy bo4FORSpTZMzBaH6XPGtLAPfPIIzVZfsIGQaDGS2CcE8TZJiMMEcER9EBlLmOGPgRlBtOLEeVQTxGDOy kx0MCWBuMXDrLAF0FeIjVAYtRDOjWDolOLMjXDYwCb y7PMQnIUCoUK0AIbQkCNIfQlY1SZHmZRIzBVPgim7RWOBhQKPiHzDgBVIqDJUaLYYzGVikYGMcHXU9RU N8OHHqISBuNP8CUqVwPYQlNuoyHVBqVYOtLGTtzl3EVBPwINDiONGhYUBsUTWnOIZzPDzyVWCuPVZvQh VtZYUvCCEyTW4ESnXkKPEfTuC2LYweHUGwFNKspl7M TFAiBSTzLLq6EFRrEGHmCJEgUItcGOAoRBVpLae5RAWdOBLhJP1DJsIrGXWxQnP6XSVtTDQbNFToht2X TWHxZWNmOoG2JTCfRQEzBKJcGLglJXXuZSAoHiUzGRXgQKAlQA1SQtStWNUwFRFuGuVdVMOxYRDner4L WADnGPL6QwEsAfTxMHGbCVXsGCjtUCWqBIOnKUQ8EU PjCGQkVN4YAeKlKJUjUAV0PBQpOMQaMMUnqs5FDVEsDEX6KWjhVOInZAQtUMHhZHvjCILpSGI7LXSlHN ChTZSsPR4WKcSfWTNdASFoIDEwBODfSNKecx4KUVBgJFB7AEmxQCTpLVOqCPBgHAoiURWxIAG8TeBmDH XjRUXlNW9LNiEhVTMySYtmGbPiFGNkMVAllg3PIIKq CVK5JdDmWMHgRRNoOBVhLCk9niIlqZAsBNr6IB7KK9XhsyTnGDRWEq9Wh299NGXrCGLwCb3OS4hiGs4r ACQePZGACb9DQFp1WhAmPMJkFTmuFkooNXMeUmQaOIK7FgGtQ7G9UBgvOju+UQk5MhC0IuTrRUZnRJO0 WIKtKwByJtC7FlSeRJH6PXTsHs3nRNFTTq7+BOoegCXgmJsoPGUDFvR0SfX8SRqkLEIRDv6S ID Date Data Source [id number] 04/26/2019 04:04:00 PM EST [facility] 1 OrderSheet [facility] Emergency Department [address] [place] [address] Phone #: ext- [phone] 04/26/2019 15:25 Patient: [...] R.N.18:05 04/26/2019) Physician;DIAGNOSTIC STUDY ORDERS 2 OrderSheet [facility] Emergency Department [address] [place] [address] Phone #: ext- [phone] 04/26/2019 15:25 Patient: [...] rce(s) Supporting Document(s) ID Date Data Source [id number] 04/26/2019 04:04:00 PM EST [facility] 1 Medication Reconciliation Report [facility] Emergency Department [address] [place] [address] Phone #: ext- [phone] 04/26/2019 15:25 Patient: [...] to the patient:None. 2 Medication Reconciliation Report [facility] Emergency Department [address] [place] [address] Phone #: ext- [phone] 04/26/2019 15:25 Patient: NERY WAN Sex: F : 1990 Age: 29y Name Value Range Interpretation Code Description Data [facility](s) Supporting Document(s) ID Date Data Source [id number] 04/26/2019 04:04:00 PM [facility] 1 Medication Administration Record [facility] Emergency Department [address] [place] [address] Phone #: ext [phone] 04/26/2019 15:25 Patient: NERY WAN Acct#: [id number] Sex: F : 1990 Age: 29yWeight: 74.8 kgHeight/Length: 64 inBMI: 28.3ALLERGIES: Ketamine, Latex, Fentanyl and RelatedDate/Time Medication Administered Medication Ordered Name Value Range Interpretation Code Description Data Corrie rce(s) Supporting Document(s) ID Date Data Source [id number] 04/26/2019 04:04:00 PM [facility] 1 General Instructions [facility] Emergency Department [address] [place] [address] Phone #: ext- [phone] 04/26/2019 15:25 Patient: NERY WAN Sex: F : 1990 Age: 29yMild pre-menopausal dysfunctional uterine bleeding. (Minimal).Vaginal discharge (Mild).INSTRUCTIONSDrink plenty of fluids.Warnings: GENERAL WARNINGS: Return or contact your physician immediately if your conditionworsens or changes unexpectedly, if not improving as expected, or if other problems arise.Follow- up:Follow up with a room service runner if not better. Call for an appointment. Reason for referral: evaluation,treatment and Dysfunction uterine bleeding / Cystitis / Bacterial vaginosis.Understanding of the discharge instructions verbalized by patient. ADDITIONAL INFORMATIONDysfunctional Uterine BleedingDysfunctional uterine bleeding, also called abnormal uterine bleeding, is a condition in which bleeding 2 General Instructions [facility] Emergency Department [address] [place] [address] Phone #: ext- [phone] 04/26/2019 15:25 Patient: NERY WAN Sex: F : 1990 Age: 29yis abnormal and occurs at unexpected times of the month. This happens because of changes in thehormones that help control a woman's menstrual cycle each month.The bleeding may be heavier or childcare attendant than normal. If you have heavy bleeding [...] better even with treatment 3 General Instructions [facility] Emergency Department [address] [place] [address] Phone #: ext- [phone] 04/26/2019 15:25 Patient: NERY WAN Sex: F : 1990 Age: 29y Fever of 100.4F (38C) or higher, or as directed by your provider Signs of anemia, such as pale skin, extreme fatigue or weakness, or shortness of breath Dizziness or fainting [id number] [employer]. [address] [place] [address], [place] [id number]. All rights re served. This information is [...] more than one partner 4 General Instructions [facility] Emergency Department [address] [place] [address] Phone #: ext- [phone] 04/26/2019 15:25 - Patient: NERY WAN Sex: [...] (STDs) Infection after [facility] the [facility] is most often treated with medicines [...] or cream you're prescribed. 5 General Instructions [facility] Emergency Department [address] [place] [address] Phone #: ext- [phone] 04/26/2019 15:25 Patient: NERY WAN Sex: F : 1990 Age: 29y You or any partners you have sex with have new symptoms, such as a rash, joint pain, or sores. [id number] [place] [address]. All rights reserved. This information is not intended as asubstitute for professional medical care. Always follow your healthcare professional's instructions. You have been given the following additional information: Dysfunctional Uterine Bleeding Bacterial Vaginosis (BV)(Electronically signed by Vamsi Novoa, Physician 04/27/2019 08:06) Name Value Range Interpretation Code Description Data Corrie rce(s) Supporting Document(s) ID Date Data Source [id number] 04/26/2019 04:04:00 PM EST [facility] 1 Clinical Report - Nurses [facility] Emergency Department [address] [place] [address] Phone #: [phone] ynr- [phone] 04/26/2019 15:25 Patient: NERY WAN Sex: F : 1990 Age: 29yTRIAGEArrived by private vehicle. Historian: patient.Acuity: LEVEL 3.Chief Complaint: VAGINAL BLEED and ABDOMINAL PAIN.Onset. (1 weeks ago). 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 --15:54 04/26/19 Wesley Childers RN.PHYSICAL TRKORMSTLB63:13 04/26/19. Ambulatory to room.GENERAL / NEURO / [...] Sheffield R.N. 18:15 04/26/19. [facility] bank technician. --18:15 04/26/19 Tacos Sharif R.N. 18:15 [...] RR: 16. O2 saturation: 98%. --18:57 04/26/19 [facility] [place] [address] 19:03 04/26/19. [facility] with blood bank technician. --19:18 04/26/19 Tacos Sharif R.N. Reassurance [...] / DISCHARGE 4 Clinical Report - Nurses [facility] Emergency Department [address] [place] [address] Phone #: ext- [phone] 04/26/2019 15:25 Patient: NERY WAN Sex: F [...] medication(s). Treatments reviewed. Reviewed referral to a room service runner and primary care physician. Patient verbalized understanding. Written instructions provided in [place]. The patient was discharged by the physician. [...] rce(s) Supporting Document(s) ID Date Data Source [id number] 04/26/2019 04:04:00 PM EST [facility] 1 Clinical Report - Physicians/Mid Levels [facility] Emergency Department [address] [place] [address] Phone #: ext- [phone] 04/26/2019 15:25 Patient: [...] in the emergency department. ( seen at [facility] 3 days ago).REVIEW OF SYSTEMSNo nausea, [...] air. 2 Clinical Report - Physicians/Mid Levels [facility] Emergency Department [address] [place] [address] Phone #: ext- [phone] 04/26/2019 15:25 Patient: NERY WAN Sex: F [...] Test Result Flag Units (Reference) US TRANSVAGINAL [facility] [address] [place] [address] ---------NAME--------- NUMBER SEX AGE ADMIT DISC. XRAY# F/C TYPE SOCO Wisdom [id number] F 29 04/26/19 [id number] XBE E/R DATE OF : 1990 M/R# [id number] #: [id number] VT-05 LOCATION: EMERGENCY DEPT TRANSCRIBED: 04/26/19 19:09 IF US TRANSVAGINAL [id number] COMPLETED:04/26/19 19:10 meme [id number] {REASON FOR PELVIS: irregular vaginal bleeding -- PHYSICIAN: JONN SCHAEFER -- -- R A D I O L O G Y R E P O R T -- PATIENT HISTORY: intermittent pelvic pain and irregular vaginal bleeding, , currently on exelon arm contraceptive device, h/o of hodgkins lymphoma [id number], w/bone marrow transplant in 2011 and remission since 2013 EXAM: US Pelvis, Complete. -- CLINICAL HISTORY: Intermittent pelvic pain and irregular vaginal bleeding, , currently on exelon arm contraceptive device, h/o of hodgkins lymphoma [phone], w/bone marrow transplant in 2011 and remission since 2013 -- TECHNIQUE: Transvaginal pelvic ultrasound (complete) with image documentation. -- COMPARISON: Transabdominal pelvic ultrasound earlier the same day. -- -- FINDINGS: -- 3 Clinical Report - Physicians/Mid Levels [facility] Emergency Department [address] [place] [address] Phone #: ext- [phone] 04/26/2019 15:25 Patient: [...] ABD //T// PELV W/O ORAL W/[place] [address] ---------NAME--------- NUMBER SEX AGE ADMIT DISC. XRAY# F/C TYPE SOCO Wisdom [id number] F 29 04/26/19 [id number] XBE E/R DATE OF : 1990 M/R# [id number] #: [id number] VT-05 LOCATION: EMERGENCY DEPT TRANSCRIBED: 04/26/19 19:[address] ABD //T// PELV W/[place] ORAL W/[place] [id number] COMPLETED:04/26/19 19:15 meme [id number] Reason(s): Abdominal Pain Pelvic Pain PHYSICIAN: JONN [...] FINDINGS: 4 Clinical Report - Physicians/Mid Levels [facility] [facility] [address] [place] [address] Phone #: ext- [phone] 04/26/2019 15:25 Patient: [...] IV Contrast Only: (HUSSEIN: 04/26/2019 17:56) ( [facility] 04/26/2019 18:08) CanceledReason(s): Abdominal PainReason(s): Abdominal PainTRANSPORTATION: WC IV? IV?(Yes) O2? Oxygen?(No) Ro: No CMTS: Hematuria / Pelvic painPTT: (HUSSEIN: 04/26/2019 18:05) ( [facility] 04/26/2019 18:42) Final results Test Result Flag Units (Reference) PTT 26.1 SECONDS (24.8 - 36.7)PT/INR: (HUSSEIN: 04/26/2019 18:05) ( [facility] 04/26/2019 18:42) Final results Test Result Flag Units (Reference) PROTIME 12.4 SECONDS (11.0 - 15.5) INR 0.91 L (0.93 - 1.23) 5 Clinical Report - Physicians/Mid Levels [facility] Emergency Department [address] [place] [address] Phone #: ext- [phone] 04/26/2019 15:25 Patient: NERY WAN Sex: F : 1990 Age: 29y \\BLDo\\INR INTERPRETATION\\BLDx\\ Therapeutic range for Coumadin andrelated oral anticoagulants. -International Normalized Ratio (INR): 2.0 - 3.0 for VenousThrombosis, Pulmonary Embolus, Tissue heart valves, Acute AK, Atrial Fibrillation, Valvular heartdisease and recurrent Systemic [...] yrs 6 Clinical Report - Physicians/Mid Levels [facility] Emergency Department [address] [place] [address] Phone #: ext- [phone] 04/26/2019 15:25 Patient: NERY WAN Sex: F : 1990 Age: 29y NON-AA GFR >60 mL/min AFR AMER GFR >60 mL/min Male GFR Interprentation 20-49 yrs >60 mL/min Vbirkg32-21 yrs >56 mL/min Normal 60-69 yrs >49 mL/min Normal 70-79yrs>42 mL/min Normal 80 and above >35 mL/min Normal Female GFRInterpretation 20-39 yrs >60 mL/min Normal 40-49 yrs >58 mL/minNormal 50-59 yrs > 51 mL/min Normal 60-69 yrs >45 mL/min Vuzzoc78-55 yrs >39 mL/min Normal 80 and above >32 mL/min NormalCPK: (HUSSEIN: 04/26/2019 18:05) ( MsgRcvd 04/26/2019 18:59) Final results Test Result Flag Units (Reference) CPK 58 U/L (30 - 170)US Pelvis: (HUSSEIN: 04/26/2019 17:55) ( MsgRcvd 04/26/2019 19:11) Final resultsUS PELVICReason(s): Abnormal BleedingTRANSPORTATION: WC IV? O2? Oxygen?(No) Room: ED: [place] [address] ---------NAME--------- NUMBER SEX AGE ADMIT DISC. XRAY# F/C TYPE SOCO Wisdom [id number] F 29 04/26/19 [id number] XBE E/R DATE OF : 1990 M/R# [id number] #: [id number] VT-05 LOCATION: EMERGENCY DEPT TRANSCRIBED: 04/26/19 19:10 IF US PELVIC [id number] COMPLETED:04/26/19 19:11 meme [id number] Reason(s): Abnormal Bleeding PHYSICIAN: JONN BR R A D I O L O G Y R E P O R T PATIENT HISTORY: intermittent pelvic pain and irregular vaginal bleeding, , currently on exelon arm contraceptive device, h/o of hodgkins lymphoma [id number], w/bone marrow transplant in 2011 and remission since 2013 EXAM: US Pelvis, Complete. CLINICAL HISTORY: Intermittent pelvic pain and irregular vaginal bleeding, , currently on exelon arm contraceptive device, h/o of hodgkins lymphoma [id number], w/bone marrow transplant in 2011 and remission since 2013 TECHNIQUE: Transabdominal pelvic ultrasound (complete) with image documentation. COMPARISON: None provided. FINDINGS: ENDOMETRIUM: Normal thickness. UTERUS/CERVIX: The uterus is not seen. RIGHT OVARY: Not seen LEFT OVARY: Not seen. FREE FLUID: No free fluid. Bladder: No filling defect or bladder wall mass. IMPRESSIONS: 7 Clinical Report - Physicians/Mid Levels [facility] Emergency Department [address] [place] [address] Phone #: ext- [phone] 04/26/2019 15:25 Patient: NREY WAN Sex: F : 1990 Age: 29y [...] being treated for bacterial vaginosis by her room service runner and she is on an antibiotic. Labs [...] (Mild). 8 Clinical Report - Physicians/Mid Levels [facility] Emergency Department [address] [place] [address] Phone #: ext- [phone] 04/26/2019 15:25 Patient: NERY WAN Sex: F : 1990 Age: 29yINSTRUCTIONS Drink plenty of fluids. Warnings: GENERAL WARNINGS: Return or contact your physician immediately if your condition worsens or changes unexpectedly, if not improving as expected, or if other problems arise. Follow-up: Follow up with a room service runner if not better. Call for an appointment. Reason for referral: evaluation, treatment and Dysfunction uterine bleeding / Cystitis / Bacterial vaginosis. Understanding of the discharge instructions verbalized by patient.(Electronically signed by Vamsi Novoa, Physician 04/27/2019 08:06) Name Value Range Interpretation Code Description Data Corrie rce(s) Supporting Document(s) ID Date Data Source [id number] 04/26/2019 08:43:00 [place] [address] ---------NAME--------- NUMBER SEX AGE ADMIT DISC. XRAY# F/C TYPE SOCO Wisdom [id number] F 29 04/26/19 [id number] XBE E/R DATE OF : 1990 M/R# [id number] #: [id number] VT-05 LOCATION: EMERGENCY DEPT TRANSCRIBED: 04/26/19 19:[address] ABD //T// PELV W/[place] ORAL W/[place] [id number] COMPLETED:04/26/19 19:15 meme [id number] Reason(s): Abdominal Pain Pelvic Pain PHYSICIAN: JONN [...] rce(s) Supporting Document(s) ID Date Data Source [id number] 04/26/2019 07:10:00 PM [facility] [address] [place] [address] ---------NAME--------- NUMBER SEX AGE ADMIT DISC. XRAY# F/C TYPE ABBZAKI Wisdom [id number] F 29 04/26/19 [id number] XBE E/R DATE OF : 1990 M/R# [id number] PH#: [phone] VT-05 LOCATION: EMERGENCY DEPT TRANSCRIBED: 04/26/19 19:10 IF US PELVIC [id number] COMPLETED:04/26/19 19:11 meme [id number] Reason(s): Abnormal Bleeding PHYSICIAN: JONN BR======== R A D I O L O G Y R E P O R T =PATIENT HISTORY:intermittent pelvic pain and irregular vaginal bleeding, , currently onexelon arm contraceptive device, h/o of hodgkins lymphoma 7436-5951, w/bonemarrow transplant in 2011 and remission since 2013EXAM: US Pelvis, Complete.CLINICAL HISTORY: Intermittent pelvic pain and irregular vaginal bleeding, ,currently on exelon arm contraceptive device, h/o of hodgkins [id number], w/bone marrow transplant in 2011 and remission [...] rce(s) Supporting Document(s) ID Date Data Source [id number] 04/26/2019 07:09:00 PM [facility] [address] [place] [address] ---------NAME--------- NUMBER SEX AGE ADMIT DISC. XRAY# F/C TYPE SOCO Wisdom [id number] F 29 04/26/19 [id number] XBE E/R DATE OF : 1990 M/R# [id number] #: [id number] VT-05 LOCATION: EMERGENCY DEPT TRANSCRIBED: 04/26/19 19:09 IF US TRANSVAGINAL [id number] COMPLETED:04/26/19 19:10 meme [id number] {REASON FOR PELVIS: irregular vaginal bleeding PHYSICIAN: JONN BR = R A D I O L O G Y R E P O R T PATIENT HISTORY:intermittent pelvic pain and irregular vaginal bleeding, , currently onexelon arm contraceptive device, h/o of hodgkins lymphoma 9283-7294, w/bonemarrow transplant in 2011 and remission since 2013EXAM: US Pelvis, Complete.CLINICAL HISTORY: Intermittent pelvic pain and irregular vaginal bleeding, ,currently on exelon arm contraceptive device, h/o of hodgkins [id number], w/bone marrow transplant in 2011 and remission [...] rce(s) Supporting Document(s) ID Date Data Source [id number] 05/02/2019 11:39:00 AM [facility] [address] Name Value Range Interpretation Code Description Data Corrie rce(s) Supporting Document(s) Bacteria identified in Blood by Culture [facility] NO GROWTH AFTER 5 DAYS ID Date Data Source [id number] 05/02/2019 09:18:00 PM [facility] Name Value Range Interpretation Code Description Data Corrie rce(s) Supporting Document(s) CULTURE BLOOD [facility] spital _CULTURE BLOOD_ [place] [address] CLIA# [id number] SEE SCANNED REPORT{ PRELIM ID Date Data Source [id number] 05/02/2019 09:18:00 PM EST [facility] Name Value Range Interpretation Code Description Data Corrie rce(s) Supporting Document(s) CULTURE BLOOD [facility] spital _CULTURE BLOOD_ TEST PERFORM ED AT [place] [id number] [place] [address] CLIA# [id number] SEE SCANNED REPORT{ PRELIM ID Date Data Source [id number] 04/26/2019 06:59:00 PM [facility] Name Value Range Interpretation Code Description Data Corrie rce(s) Supporting Document(s) Creatine kinase [Enzymatic activity/volume] in Serum or Plasma 5 8 U/L 30 - 170 [facility] ID Date Data Source [id number] 04/26/2019 06:59:00 PM [facility] Name Value Range Interpretation Code Description Data Corrie rce(s) Supporting Document(s) COMPREHENSIVE METABOLIC PANEL [facility] COMPREHENSIVE METABOLIC PANEL Sodium [Moles/volume] in Serum or Plasma 139 mEq/L 134 - 153 [facility] Potassium [Moles/volume] in Serum or Plasma 4.2 mEq/L 3.6 - 5.0 [facility] Chloride [Moles/volume] in Serum or Plasma 104 mEq/L 98 - 107 [facility] Carbon dioxide, total [Moles/volume] in Serum or Plasma 26 MEQ/L 22 - 30 [facility] Glucose [Mass/volume] in Serum or Plasma 86 MG/DL 65 - 110 [facility] BUN 19 MG/DL 7 - 21 [facility] Creatinine [Mass/volume] in Serum or Plasma 0.9 MG/DL 0.7 - 1.5 [facility] BUN/CREAT 21 8 - 27 [facility] al Protein [Mass/volume] in Serum or Plasma 7.1 G/DL 6.3 - 8.2 [facility] Albumin [Mass/volume] in Serum or Plasma 4.5 G/DL 3.9 - 5.0 [facility] Globulin [Mass/volume] in Serum by calculation 2.6 GM/DL 2.4 - 3.2 [facility] A/G RATIO 1.7 0.8 - 2.0 [facility] Calcium [Mass/volume] in Serum or Plasma 9.6 MG/DL 8.4 - 10.2 [facility] Bilirubin.total [Mass/volume] in Serum or Plasma 0.7 MG/DL 0.2 - 1.3 [facility] Alkaline phosphatase [Enzymatic activity/volume] in Serum or Plasma 52 U/L 38 - 126 [facility] Aspartate aminotransferase [Enzymatic activity/volume] in Serum or Plasma 13 U/L 5 - 40 [facility] Alanine aminotransferase [Enzymatic activity/volume] in Seru m or Plasma 10 U/L 7 - 56 [facility] Anion gap 3 in Serum or Plasma 9.0 mmol/L 8.0 - 16.0 [facility] AGE 29 yrs [facility] NON-AA GFR >60 mL/min [facility] AFR AMER GFR >60 mL/min [facility] Male GFR In [...] >32 mL/min Normal ID Date Data Source [id number] 04/26/2019 06:59:00 PM [facility] Name Value Range Interpretation Code Description Data Corrie rce(s) Supporting Document(s) Lipase [Enzymatic activity/volume] in Serum or Plasma 33 U/L 13 - 60 [facility] ID Date Data Source [id number] 04/26/2019 06:42:00 PM [facility] Name Value Range Interpretation Code Description Data Corrie rce(s) Supporting Document(s) aPTT in Blood by Coagulation assay 26.1 SECONDS 24.8 - 36.7 [facility] ID Date Data Source [id number] 04/26/2019 06:42:00 PM [facility] Value Range Interpretation Code Description Data Corrie rce(s) Supporting Document(s) Prothrombin time (PT) 12.4 SECONDS 11.0 - 15.5 [facility] INR in Platelet poor plasma by Coagulation assay 0.91 0.93 - 1. 23 L [facility] \\BLDo\\INR INTERPRETATION\\BLDx\\ Therapeutic range for Coumadin and related oral anticoagulants. - International Normalized Ratio (INR): 2.0 - 3.0 for Venous Thrombosis, Pulmonary Embolus, Tissue heart valves, Acute AK, Atrial Fibrillation, Valvular heart disease and recurrent Systemic Embolism. -International Normalized Ratio (INR): 2.5 - 3.5 for Mechanical Prosthetic valve. ID Date Data Source [id number] 04/26/2019 06:31:00 PM EST [facility] Name Value Range Interpretation Code Description Data Corrie rce(s) Supporting Document(s) CBC W/AUTOMATED DIFF [facility] COMPLETE BLOOD COUNT Leukocytes [#/volume] in Blood by Automated count 5.8 10^3/uL 4.2 - 1 1.0 [facility] Erythrocytes [#/volume] in Blood by Automated count 4.31 10^6/uL 4. 20 - 5.40 [facility] Hemoglobin [Mass/volume] in Blood 12.2 g/dL 12.0 - 16.0 [facility] Hematocrit [Volume Fraction] of Blood by Automated count 37.8 % 3 7.0 - 47.0 [facility] Erythrocyte mean corpuscular volume [Entitic volume] by Auto mated count 87.7 fL 81.0 - 101 [facility] Erythrocyte mean corpuscular hemoglobin [Entitic mass] by Automated count 28.3 pg 27.0 - 34.0 [facility] Erythrocyte mean corpuscular hemoglobin concentration [Mass/volume] by Automated count 32.3 g/dL 31.0 - 36.0 [facility] Erythrocyte distribution width [Ratio] by Automated count 12.1 % 11.5 - 14.5 [facility] Platelets [#/volume] in Blood by Automated count 195 10^3/uL 150 - 45 0 [facility] Platelet mean volume [Entitic volume] in Blood by Automated count 9.2 fL 7.4 - 10.4 [facility] Neutrophils/100 leukocytes in Blood by Automated count 56.2 % 37. 0 - 80.0 [facility] Lymphocytes/100 leukocytes in Blood by Manual count 36.0 % 25.0 - 40.0 [facility] Monocytes/100 leukocytes in Blood by Automated count 6.0 % 3.0 - 8.0 [facility] Eosinophils/100 leukocytes in Blood by Automated count 1.2 % 0.0 - 7.0 [facility] Basophils/100 leukocytes in Blood by Automated count 0.3 % 0.0 - 2.5 [facility] %IG 0.3 % 0.0 - 0.0 H [facility] al %NRBC 0.0 % 0.0 - 0.0 [facility] al Neutrophils [#/volume] in Blood by Automated count 3.28 10^3/uL 2.00 - 6.90 [facility] Lymphocytes [#/volume] in Blood by Automated count 2.10 10^3/uL 0.60 - 3.40 [facility] Monocytes [#/volume] in Blood by Automated count 0.35 10^3/uL 0.00 - 0.90 [facility] Eosinophils [#/volume] in Blood by Automated count 0.07 10^3/uL 0.00 - 0.70 [facility] Basophils [#/volume] in Blood by Automated count 0.02 10^3/uL 0.00 - 0.20 [facility] #IG 0.02 10^3/uL 0.00 - 0.10 [facility] #NRBC 0.00 10^3/uL 0.00 - 0.00 [facility] MANUAL DIFF NOT INDICATED [facility] RBC MORPH NOT INDICATED [facility] ID Date Data Source [id number] 04/26/2019 05:32:00 PM EST [facility] Name Value Range Interpretation Code Description Data Corrie rce(s) Supporting Document(s) [facility]IS [facility] URINALYSIS SOURCE Clean Catch [facility] COLOR yellow NORMAL: Yellow [facility] CLARITY clear NORMAL: Clear [facility] Specific gravity of Urine by Test strip 1.030 1.001 - 1.030 [facility] pH 5 5 - 9 [facility] Glucose [Mass/volume] in Urine by Test strip NORM NORMAL: Negat sy [facility] Bilirubin.total [Presence] in Urine by Test strip NEG NORMAL: Negative [facility] Ketones [Presence] in Urine by Test strip 5 NORMAL: Negative [facility] Protein [Mass/volume] in Urine by Test strip 15 NORMAL: Negat [facility] Nitrite [Presence] in Urine by Test strip NEG NORMAL: Negative [facility] BLOOD 25 NORMAL: Negative [facility] Leukocyte esterase [Presence] in Urine by Test strip 25 STORMY L: Negative [facility] Urobilinogen [Mass/volume] in Urine by Test strip NOR less sapphire n 1.0 mg/dL [facility] MICROSCOPIC See Below [facility] WBC 1 - 3 NORMAL: NONE SEEN [facility] Erythrocytes [#/volume] in Urine by Test strip 1 - 3 NORMAL: NON E SEEN [facility] EPITHELIAL FEW NORMAL: NONE SEEN [facility] Mucus [Presence] in Urine sediment by Light microscopy Trace NORMAL: NONE SEEN [facility] ID Date Data Source [id number] 04/25/2019 10:48:52 PM [facility] Name Value Range Interpretation Code Description Data Corrie rce(s) Supporting Document(s) Progress Note [facility] [id number] lbm [file] [id number] ID Date Data Source [id number] 04/25/2019 10:48:47 PM [facility] Name Value Range Interpretation Code Description Data Corrie rce(s) Supporting Document(s) Progress Note [facility] [id number] lbm [file] [id number] ID Date Data Source [id number] 04/22/2019 02:18:59 PM [facility] Name Value Range Interpretation Code Description Data Corrie rce(s) Supporting Document(s) Leukocytes [#/volume] in Blood by Automated count 6.9 10*3/uL 4-10 [facility] Erythrocytes [#/volume] in Blood by Automated count 4.88 10*6/uL 4.1- 5.3 [facility] Hemoglobin [Mass/volume] in Blood 14.1 g/dL 11.5-15.5 [facility] Hematocrit [Volume Fraction] of Blood by Automated count 42.9 % 3 6-45 [facility] Erythrocyte mean corpuscular volume [Entitic volume] by Auto mated count 88.0 fL 80-96 [facility] Erythrocyte mean corpuscular hemoglobin [Entitic mass] by Automated count 29.0 pg 27-33 [facility] Erythrocyte mean corpuscular hemoglobin concentration [Mass/volume] by Automated count 33.0 g/dL 32.0-36.0 [facility] distribution width [Ratio] by Automated count 13.1 % 11.5-14.5 [facility] Platelets [#/volume] in Blood by Automated count 234 10*3/uL 150-400 [facility] Differential cell count method - Blood [facility] Neutrophils/100 leukocytes in Blood by Automated count 71 % [facility] Lymphocytes/100 leukocytes in Blood by Automated count 22 % [facility] Monocytes/100 leukocytes in Blood by Automated count 5 % [facility] Eosinophils/100 leukocytes in Blood by Automated count 1 % [facility] Basophils/100 leukocytes in Blood by Automated count 1 % [facility] Neutrophils [#/volume] in Blood by Automated count 4.90 10*3/uL 1.8-7 .0 [facility] Lymphocytes [#/volume] in Blood by Automated count 1.54 10*3/uL 1.2-4 .0 [facility] Monocytes [#/volume] in Blood by Automated count 0.34 10*3/uL 0-0.8 [facility] Eosinophils [#/volume] in Blood by Automated count 0.06 10*3/uL 0-0.5 [facility] Basophils [#/volume] in Blood by Automated count 0.05 10*3/uL 0-0.2 [facility] Nucleated erythrocytes/100 leukocytes [Ratio] in Blood by Automated count 0 /100{WBCs} 0-0 [facility] ID Date Data Source [id number] 04/22/2019 03:10:46 PM [facility] Name Value Range Interpretation Code Description Data Corrie rce(s) Supporting Document(s) Lactate dehydrogenase [Enzymatic activit y/volume] in Serum or Plasma by Lactate to pyruvate reaction 172 U/L 122-214 [facility] ID Date Data Source [id number] 04/22/2019 03:10:46 PM [facility] Name Value Range Interpretation Code Description Data Corrie rce(s) Supporting Document(s) Albumin [Mass/volume] in Serum or Plasma by Bromocresol green (BCG) dye binding method 4.6 g/dL 3.5-5.2 [facility] Bilirubin.total [Mass/volume] in Serum or Plasma 0.3 mg/dL <1.2 [facility] Calcium [Mass/volume] in Serum or Plasma 9.2 mg/dL 8.6-10.0 [facility] Chloride [Moles/volume] in Serum or Plasma 102 mmol/L 98-107 [facility] Creatinine [Mass/volume] in Serum or Plasma 0.86 mg/dL 0.50-0.90 [facility] Glucose [Mass/volume] in Serum or Plasma 98 mg/dL 70-140 [facility] Alkaline phosphatase [Enzymatic activity/volume] in Serum or Plasma 59 U/L 35-104 [facility] Potassium [Moles/volume] in Serum or Plasma 4.1 mmol/L 3.4-5.1 [facility] Protein [Mass/volume] in Serum or Plasma 7.5 g/dL 6.4-8.3 [facility] Sodium [Moles/volume] in Serum or Plasma 139 mmol/L 136-145 [facility] Aspartate aminotransferase [Enzymatic activity/volume] in Serum or Plasma 15 U/L <32 [facility] Urea nitrogen [Mass/volume] in Serum or Plasma 17 mg/dL 6-20 [facility] Osmolality of Serum or Plasma by calculation 289 mosm/kg 275-300 [facility] Creatinine/Urea nitrogen [Mass Ratio] in Serum or Plasma 19 [facility] Bicarbonate [Moles/volume] in Serum 22 mmol/L 22-29 [facility] Alanine aminotransferase [Enzymatic activity/volume] in Seru m or Plasma 11 U/L <33 [facility] Anion gap 3 in Serum or Plasma 14 mmol/L 8-15 [facility] Albumin/Globulin [Mass Ratio] in Serum or Plasma 1.6 [facility] Glomerular filtration rate/1.73 sq M pre dicted among non-blacks [Volume Rate/Area] in Serum or Plasma by Creatinine-based formula (MDRD) >6 0 [facility] Glomerular filtration rate/1.73 sq M pre dicted among blacks [Volume Rate/Area] in Serum or Plasma by Creatinine-based formula (MDRD) >60 [facility] ID Date Data Source [id number] 03/13/2019 11:26:00 AM EST [facility] Name Value Range Interpretation Code Description Data Corrie rce(s) Supporting Document(s) Appearance, Urine CLOUDY Above high normal [facility] NT ([facility]) Color, Urine YELLOW [facility] PH,Urine 5.0 units 5.0-9.0 [facility] ([facility] 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) Protein, Urine Auto NEGATIVE mg/dL [facility] T ([facility]) Specific [place] Urine Auto 1.021 1.002-1.035 [facility] ([facility]) Glucose, Urine (Ua) Auto NEGATIVE mg/dL [facility]) Urobilinogen, Urine Auto 0.2 mg/dL 0.0-2.0 [facility] T ([facility]) Ketone, Urine Auto NEGATIVE mg/dL [facility] ([facility]) Bilirubin, Urine Auto NEGATIVE [facility] ( [facility]) Nitrite, Urine Auto NEGATIVE [facility] ([facility]) Leukocyte Esterase, Urine Auto 3+ Above high stormy l [facility] ([facility]) RBC, Urine Auto 6 /HPF 0-3 Above high normal [facility]) Blood, Urine Blood NEGATIVE [facility] ([facility]) WBC, Urine Auto 11 /HPF 0-3 Above high normal [facility] ([facility]) Squamous Epithelial Cell Ur AU 16 /HPF 0-6 [facility]) Hyaline Cast, Urine Auto 0 /LPF 0-1 [facility] ([facility]) Bacteria, Urine Auto 2+ Above high normal [facility] ([facility]) ID Date Data Source [id number] 03/13/2019 11:26:00 AM EST [facility] Name Value Range Interpretation Code Description Data Corrie rce(s) Supporting Document(s) Urine Culture Result NO GROWTH MEDENT ([facility]) <External Comment eCWMed> FULL REPORT IN L <SEE NOTE> MEDENT ([facility]) FULL REPORT IN LAB NOTES (eCW and Medent ). Procedure Social History Code Duration Value Status Description Data Source(s ) Smoking 04/01/2020 12:00:00 AM EST Patient has never smoked co mpleted Patient has never smoked MEDENT ([facility] ) Smoking 03/27/2020 12:00:00 AM EST Never Smoker completed Never S moker eCW1 ([facility]) Smoking 03/27/2020 12:00:00 AM EST Never Smoker completed Never S moker eCW1 ([facility]) Smoking 03/27/2020 12:00:00 AM EST Never Smoker completed Never S moker eCW1 ([facility]) Smoking 03/25/2020 12:00:00 AM EST Non-smoker, Non-drink er, Non-drug User completed Non-smoker, Non-drinker, Non-drug User MED[facility] ([facility] [place]) Alcohol intake 03/18/2020 12:00:00 AM EST Ex-drinker (finding) comp leted Ex- drinker (finding) [facility] Tobacco use and exposure 03/18/2020 12:00:00 AM EST Never used co mpleted Never used [facility] Smoking 03/18/2020 12:00:00 AM EST Never smoker completed Never s [facility] Smoking 02/25/2020 12:00:00 AM EST Never Smoker completed Never S moker eCW1 ([facility]) Smoking 01/29/2020 06:23:00 PM EDT Denies Ever Smoked complete d Denies Ever Smoked [facility] Alcohol intake 01/25/2020 12:00:00 AM EDT Current non-d kumar of alcohol (finding) completed Current non-drinker of alcohol (finding) [facility] Smoking 01/20/2020 12:00:00 AM EDT Never Smoker completed Never S moker eCW1 ([facility]) Smoking 01/20/2020 12:00:00 AM EDT Never Smoker completed Never S moker eCW1 ([facility]) Smoking 01/20/2020 12:00:00 AM EDT Never Smoker completed Never S moker eCW1 ([facility]) Smoking 01/11/2020 12:00:00 AM EDT Unknown if ever smoked comp leted Unknown if ever smoked [facility] Alcohol intake 01/06/2020 12:00:00 AM EDT Current non-d kumar of alcohol (finding) completed Current non-drinker of alcohol (finding) [facility] Alcohol intake 11/05/2019 12:00:00 AM EDT Current non-d kumar of alcohol (finding) completed Current non-drinker of alcohol (finding) [facility] Smoking 11/05/2019 12:00:00 AM EDT Never smoker completed Never s [facility] Smoking 09/11/2019 12:00:00 AM EDT Never Smoked Cigarettes com pleted Never Smoked Cigarettes MEDENT ([facility]) Alcohol intake 08/07/2019 12:00:00 AM EDT Current non-d kumar of alcohol (finding) completed Current non-drinker of alcohol (finding) [facility] Smoking 08/07/2019 12:00:00 AM EDT Never smoker completed Never s [facility] Smoking 08/02/2019 12:00:00 AM EDT Never Smoker completed Never S moker eCW1 ([facility]) Smoking 08/02/2019 12:00:00 AM EDT Never Smoker completed Never S moker eCW1 ([facility]) Alcohol intake 04/25/2019 12:00:00 AM EST Current non-d kumar of alcohol (finding) completed Current non-drinker of alcohol (finding) [facility] Smoking 04/25/2019 12:00:00 AM EST Never smoker completed Never s [facility] Vital Signs ID Date Data Source UNK Name Value Range Interpretation Code Description Data Source(s) Body surface area Derived from formula 1.75 m2 1.75 m2 [facility] ([facility]) Body weight 69.854 kg 69.854 kg [facility] ([facility]) [place] body weight 120 [lb_av] 120 [lb_av] MEDEN T ([facility]) Body mass index (BMI) [Ratio] 26.4 kg/m2 26.4 k g/m2 [facility] ([facility]) Body weight 154.00 [lb_av] 154.00 [lb_av] [facility] Body height 64 [in_i] 64 [in_i] [facility] ([facility]) 5'4" Oxygen saturation in Arterial blood by Pulse oximetry 99 % 99 % [facility] ([facility]) Heart rate 103 /min 103 /min [facility] ([facility]) Diastolic blood pressure 80 mm[Hg] 80 mm[Hg] [facility] ([facility]) Systolic blood pressure 120 mm[Hg] 120 mm[Hg] [facility] ([facility]) Diastolic blood pressure 66 mm[Hg] 66 mm[Hg] eCW1 ([facility]) Systolic blood pressure 100 mm[Hg] 100 mm[Hg] e CW1 ([facility]) Body temperature 97.4 [degF] 97.4 [degF] eCW1 ( [facility]) Respiratory rate 18 /min 18 /min eCW1 ([facility]) Heart rate 111 /min 111 /min eCW1 ([facility]) Body mass index (BMI) [Ratio] 26.12 kg/m2 26.12 kg/m2 [facility] ([facility]) Body height 65 [in_i] 65 [in_i] eCW1 ([facility]) Body weight 157 [lb_av] 157 [lb_av] eCW1 [facility] Diastolic blood pressure 66 mm[Hg] 66 mm[Hg] [facility] Systolic blood pressure 104 mm[Hg] 104 mm[Hg] M EDENT ([facility] [facility]) Body surface area Derived from formula 1.76 m2 1.76 m2 [facility] ([facility]) Body weight 70.535 kg 70.535 kg [facility] ([facility]) [place] body weight 120 [lb_av] 120 [lb_av] MEDEN T ([facility]) Body mass index (BMI) [Ratio] 26.7 kg/m2 26.7 k g/m2 [facility] ([facility]) Body weight 155.50 [lb_av] 155.50 [lb_av] [facility] Body height 64 [in_i] 64 [in_i] [facility] ([facility]) 5'4" Oxygen saturation in Arterial blood by Pulse oximetry 98 % 98 % [facility] ([facility]) Heart rate 89 /min 89 /min [facility] ([facility]) Diastolic blood pressure 78 mm[Hg] 78 mm[Hg] [facility] ([facility]) Systolic blood pressure 116 mm[Hg] 116 mm[Hg] M [facility] ([facility]) Diastolic blood pressure 56 mm[Hg] 56 mm[Hg] [facility] ([facility]) Systolic blood pressure 116 mm[Hg] 116 mm[Hg] [facility] ([facility]) Diastolic blood pressure 62 mm[Hg] 62 mm[Hg] eCW1 ([facility]) Systolic blood pressure 100 mm[Hg] 100 mm[Hg] e CW1 ([facility]) Body temperature 97.9 [degF] 97.9 [degF] eCW1 ( [facility]) Respiratory rate 18 /min 18 /min eCW1 ([facility]) Heart rate 106 /min 106 /min eCW1 ([facility]) Body mass index (BMI) [Ratio] 25.06 kg/m2 25.06 kg/m2 eCW1 ([facility]) Body height 65 [in_i] 65 [in_i] eCW1 ([facility]) Body weight 150.6 [lb_av] 150.6 [lb_av] eCW1 ([facility]) Diastolic blood pressure 60 mm[Hg] 60 mm[Hg] MEDENT ([facility]) Systolic blood pressure 106 mm[Hg] 106 mm[Hg] M EDENT ([facility] [facility]) Body temperature 36.8 shruthi Normal (applies to non-numeric results) 36.8 shruthi [facility] Respiratory rate 16 min Normal (applies to non-numeric results) 16 min [facility] Deprecated Oxygen saturation in Capillary blood by Oximetry 100 % Normal (applies to non-numeric results) 100 % [facility] Heart rate 99 min Normal (applies to non-numeric resul ts) 99 min [facility] Diastolic blood pressure 91 mm[Hg] Normal (applies to non-numeric results) 91 mm[Hg] [facility] Systolic blood pressure 140 mm[Hg] Normal (applies t o non-numeric results) 140 mm[Hg] [facility] Body mass index (BMI) [Ratio] 24.3 kg/m2 No rmal (applies to non-numeric results) 24.3 kg/m2 [facility] Body weight Measured 142 [lb_av] Normal (applies to n on-numeric results) 142 [lb_av] [facility] Body height 162.1536 cm Normal (applies to non-numeric res ults) 162.1536 cm [facility] Diastolic blood pressure 58 mm[Hg] 58 mm[Hg] eCW1 ([facility]) Systolic blood pressure 96 mm[Hg] 96 mm[Hg] e CW1 ([facility]) Body temperature 96.8 [degF] 96.8 [degF] eCW1 ( [facility]) Respiratory rate 18 /min 18 /min eCW1 ([facility]) Heart rate 104 /min 104 /min eCW1 ([facility]) Body mass index (BMI) [Ratio] 25.62 kg/m2 25.62 kg/m2 W1 ([facility]) Body height 65 [in_i] 65 [in_i] eCW1 ([facility]) Body weight 154 [lb_av] 154 [lb_av] eCW1 ([facility] Oxygen saturation in Arterial blood by Pulse oximetry 98 % 98 % MEDENT ([facility]) Body mass index (BMI) [Ratio] 28.2 kg/m2 28.2 k g/m2 MEDENT ([facility]) Body weight 172.38 [lb_av] 172.38 [lb_av] MEDEN T ([facility]) Body height 65.5 [in_i] 65.5 [in_i] MEDENT ([facility]) 5'5.50" Heart rate 112 [...] Body height 65.5 [in_i] 65.5 [in_i] MEDENT ([facility]) 5'5.50" Heart rate 103 /min 103 /min MEDENT ([facility]) Diastolic blood pressure 68 mm[Hg] 68 mm[Hg] MED[facility] ([facility]) Systolic blood pressure 110 mm[Hg] 110 mm[Hg] M EDENT ([facility]) Diastolic blood pressure 78 mm[Hg] 78 mm[Hg] eCW1 ([facility]) Systolic blood pressure 122 mm[Hg] 122 mm[Hg] e CW1 ([facility]) Body temperature 99.3 [degF] 99.3 [degF] eCW1 ( [facility]) Heart rate 104 /min 104 /min eCW1 ([facility]) Body mass index (BMI) [Ratio] 29.62 kg/m2 29.62 kg/m2 eCW1 ([facility]) Body height 65 [in_us] 65 [in_us] eCW1 ([facility]) Body weight Measured 178 [lb_av] 178 [lb_av] eC W1 ([facility]) Diastolic blood pressure 68 mm[Hg] 68 mm[Hg] [facility] ([facility]) Systolic blood pressure 108 mm[Hg] 108 mm[Hg] M EDENT ([facility]) Diastolic blood pressure 72 mm[Hg] 72 mm[Hg] [facility] ([facility]) Systolic blood pressure 112 mm[Hg] 112 mm[Hg] M EDENT ([facility]) Diastolic blood pressure 62 mm[Hg] 62 mm[Hg] eCW1 ([facility]) Systolic blood pressure 118 mm[Hg] 118 mm[Hg] e CW1 ([facility]) Body temperature 97 [degF] 97 [degF] eCW1 ([facility]) Respiratory rate 18 /min 18 /min eCW1 ([facility]) Heart rate 110 /min 110 /min eCW1 ([facility]) Body mass index (BMI) [Ratio] 28.95 kg/m2 28.95 kg/m2 eCW1 ([facility]) Body height 65 [in_us] 65 [in_us] eCW1 ([facility]) Body weight Measured 174 [lb_av] 174 [lb_av] eC W1 ([facility]) Diastolic blood pressure 64 mm[Hg] 64 mm[Hg] MED[facility] ([facility]) Systolic blood pressure 116 mm[Hg] 116 mm[Hg] M EDENT ([facility]) Diastolic blood pressure 70 mm[Hg] 70 mm[Hg] eCW1 ([facility]) Systolic blood pressure 120 mm[Hg] 120 mm[Hg] e CW1 ([facility]) Body temperature 97.7 [degF] 97.7 [degF] eCW1 ( [facility]) Respiratory rate 18 /min 18 /min eCW1 ([facility]) Heart rate 101 /min 101 /min eCW1 ([facility]) Body mass index (BMI) [Ratio] 27.95 kg/m2 27.95 kg/m2 eCW1 ([facility]) Body height 65 [in_us] 65 [in_us] eCW1 ([facility]) Body weight Measured 168 [lb_av] 168 [lb_av] eC W1 ([facility]) Diastolic blood pressure 70 mm[Hg] 70 mm[Hg] [facility] ([facility] [place]) Systolic blood pressure 100 mm[Hg] 100 mm[Hg] M EDENT ([facility]) ID Date Data Source [id number] 03/30/2020 01:33:45 AM [facility] Name Value Range Interpretation Code Description Data Source(s) Body height Measured 64.5 in 64.5 in [facility] ID Date Data Source [id number] 01/29/2020 09:08:53 PM [facility] Name Value Range Interpretation Code Description Data Source(s) TRANSFER FROM [facility] ID Date Data Source [id number] 01/28/2020 07:27:58 PM [facility] Name Value Range Interpretation Code Description Data Source(s) WEIGHT RECORDED 140 lb 140 lb [facility] Body height Measured 67.99 in 67.99 in [facility] ID Date Data Source [id number] 01/16/2020 01:09:59 AM [facility] Name Value Range Interpretation Code Description Data Source(s) Body height Measured 67.99 in 67.99 in [facility] WEIGHT RECORDED 180.56 lb 180.56 lb [facility] ID Date Data Source [id number] 01/18/2020 08:29:15 AM [facility] Name Value Range Interpretation Code Description Data Source(s) WEIGHT RECORDED 159.2 lb 159.2 lb [facility] ID Date Data Source [id number] 11/06/2019 12:13:11 AM [facility] Name Value Range Interpretation Code Description Data Source(s) WEIGHT RECORDED 160 lb 160 lb [facility] Body height Measured 64.5 in 64.5 in [facility] ID Date Data Source [id number] 08/08/2019 07:00:00 PM [facility] Name Value Range Interpretation Code Description Data Source(s) WEIGHT RECORDED 170 lb 170 lb [facility] ID Date Data Source [id number] 04/25/2019 10:48:52 PM [facility] Name Value Range Interpretation Code Description Data Source(s) WEIGHT RECORDED 170.6 lb 170.6 lb [facility] Patient Treatment Plan of Care Planned Activity Planned Date Details Description Data Source (s) lamotrigine 200 MG Oral Tablet 03/18/2020 12:00:00 AM [facility] Levetiracetam 750 MG Oral Tablet 03/18/2020 12:00:00 AM [facility] POLYETHYLENE GLYCOL 3350 142 MG/ML Oral Solution 02/21/2020 12:00:0 0 AM [facility] Acetaminophen 325 MG / Oxycodone Hydrochloride 5 MG Or al Tablet 02/20/2020 12:00:00 AM [facility]ital NITROFURANTOIN, MACROCRYSTALS 25 MG / Ni trofurantoin, Monohydrate 75 MG Oral Capsule 02/20/2020 12:00:00 AM [facility] Acetaminophen 325 MG / Hydrocodone Bitartrate 5 MG Ora l Tablet 02/14/2020 12:00:00 AM [facility]spital Magnesium Hydroxide 80 MG/ML Oral Suspension 01/13/2020 10:00:00 PM [facility] Bisacodyl 10 MG Rectal Suppository 01/13/2020 07:45:55 AM [facility] 8.6 MG Oral Tablet 01/13/2020 07:45:55 AM [facility] 35.2 MG/ML Oral Solution 01/13/2020 07:45:55 AM [facility] ondansetron (ZOFRAN) 4 MG/2ML injection 01/11/2020 08:06:55 PM [facility] Levothyroxine Sodium 0.2 MG Oral Tablet [Synthroid] 10/07/19 12:00:00 AM [facility] Levetiracetam 750 MG Oral Tablet 08/07/2019 12:00:00 AM [facility] lamotrigine 200 MG Oral Tablet 08/07/2019 12:00:00 AM [facility] Levothyroxine Sodium 0.175 MG Oral Tablet 05/30/2019 12:00:00 AM ES T eCW1 ([facility]) Levothyroxine Sodium 0.15 MG Oral Tablet 03/26/2019 12:00:00 AM EST eCW1 ([facility]) Levetiracetam 750 MG Oral Tablet 10/08/2018 12:00:00 AM [facility] lamotrigine 200 MG Oral Tablet 10/08/2018 12:00:00 AM [facility] gabapentin 100 MG Oral Capsule [facility] Amitriptyline Hydrochloride 25 MG Oral Tablet [facility] Levetiracetam 750 MG Oral Tablet [facility] lamotrigine 200 MG Oral Tablet [facility] Levothyroxine Sodium 0.112 MG Oral Tablet [facility]
[2020-05-04 04:45] VITALS: BP 126/80
== END 2020-05-04 05:05 | disposition home or self-care (01) ==
LOC: M ED 02:28
DX: R11.2 Nausea with vomiting, unspecified (principal); Z88.8 Allergy status to other drugs, medicaments and biological substances; Z91.040 Latex allergy status; Z79.899 Other long term (current) drug therapy
CPT/HCPCS: 36415; 80047; 80048; 80076; 82150; 83690; 85025; 85610; 85730; 93041; 96374; 96376; 99284; Q0162

== ENCOUNTER → 2020-06-11 | Outpatient (CLI) | payer MEDICAID ==
[2020-06-11 09:37] LABS: FREE T4 0.68 NG/DL (0.76-1.46); THYROID STIMULATING HORMONE 8.18 uIU/ML (0.358-3.740)
== END ==
LOC: M LAB 08:26
PROVIDERS: ATTEND Family Medicine
DX: E03.9 Hypothyroidism, unspecified (principal)

== ENCOUNTER 2020-07-01 19:34 | Emergency (ER) | payer MEDICAID ==
[~2020-07-01] VITALS: Ht 162.6 cm; Wt 65.9 kg
[2020-07-01] MEDS ORDERED: SYNT175T2 PO (19:43)
[2020-07-01] MEDS ORDERED: NS 1,000 ML IV ONE (20:10)
[2020-07-01 20:18] LABS: BASO % 0.5 % (0.0-1.0); EOS # 0.1 10^3/uL (0.0-0.5); EOS % 0.8 % (0.0-3.0); HEMATOCRIT 38.6 % (36.0-47.0); HEMOGLOBIN 12.5 g/dl (12.0-15.5); LYMPH # 2.1 10^3/uL (1.5-5.0); MEAN CORPUSCULAR HEMOGLOBIN 28.1 pg (27.0-33.0); MEAN CORPUSCULAR HGB CONC 32.4 g/dl (32.0-36.5); MEAN CORPUSCULAR VOLUME 86.7 fl (80.0-96.0); MONO # 0.4 10^3/uL (0.0-0.8); MONO % 5.6 % (2.0-8.0); NEUTROPHILS # 3.8 10^3/uL (1.5-8.5); NEUTROPHILS % 59.9 % (36.0-66.0); PLATELET COUNT, AUTOMATED 201 10^3/uL (150-450); RED BLOOD COUNT 4.45 10^6/uL (4.00-5.40); WHITE BLOOD COUNT 6.3 10^3/uL (4.0-10.0)
[2020-07-01 20:51] LABS: HCG, SERUM QUALITATIVE NEGATIVE (NEGATIVE)
[2020-07-01 20:57] LABS: ALBUMIN 4.3 GM/DL (3.2-5.2); ALT/SGPT 18 U/L (12-78); AMYLASE 61 U/L (25-115); BILIRUBIN,DIRECT < 0.1 MG/DL (0.0-0.2); BILIRUBIN,TOTAL 0.2 MG/DL (0.2-1.0); CK-MB VALUE MASS < 1.0 NG/ML (<3.6); CPK CREATINE PHOSPHOKINASE 84 U/L (26-192); LIPASE 107 U/L (73-393); MB/CK RELATIVE INDEX 1.19 (< OR =4); TOTAL PROTEIN 7.7 GM/DL (6.4-8.2); TROPONIN I < 0.02 NG/ML (< 0.10)
[2020-07-01] MEDS ORDERED: MORPHINE 4 MG/ML 1ML VIAL/SYRINGE (J2270) IV ONE (21:25)
[2020-07-01] MEDS ORDERED: ONDANSETRON 4MG/2ML VIAL IV ONE (21:25)
[2020-07-02] MEDS ORDERED: MORPHINE 4 MG/ML 1ML VIAL/SYRINGE (J2270) IV ONE (00:15)
[2020-07-02 00:43] LABS: CK-MB VALUE MASS < 1.0 NG/ML (<3.6); CPK CREATINE PHOSPHOKINASE 64 U/L (26-192); MB/CK RELATIVE INDEX 1.56 (< OR =4); TROPONIN I < 0.02 NG/ML (< 0.10)
[2020-07-02 00:46] LABS: AMPHETAMINES LEVEL URINE NEGATIVE (NEGATIVE); BARBITURATES URINE NEGATIVE (NEGATIVE); BENZODIAZEPINES URINE NEGATIVE (NEGATIVE); CANNABINOIDS URINE NEGATIVE (NEGATIVE); COCAINE METABOLITE URINE NEGATIVE (NEGATIVE); METHADONE URINE NEGATIVE (NEGATIVE); OPIATES URINE POSITIVE (NEGATIVE); PHENCYCLIDINE URINE NEGATIVE (NEGATIVE)
--- NOTE | 2020-07-02 01:14 | ECGEPIP ---
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
--- NOTE | 2020-07-02 01:18 | ECGEPIP ---
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
[2020-07-02] MEDS ORDERED: KETOROLAC 30 MG/ML 1ML VIAL IV ONE (01:45)
[2020-07-02 01:46] LABS: CK-MB VALUE MASS < 1.0 NG/ML (<3.6); CPK CREATINE PHOSPHOKINASE 83 U/L (26-192); TROPONIN I < 0.02 NG/ML (< 0.10)
[2020-07-02 05:37] VITALS: BP 128/84
[2020-07-02] MEDS ORDERED: MAGNESIUM CITRATE 300 ML BTL PO ONE (05:50)
--- NOTE | 2020-07-02 08:09 | REP ---
INDICATION: diffuse abd pain repeat dictation. Preliminary report is provided at the time of the exam by joaquina SALMERON. COMPARISON: Comparison study April 29, 2020.. TECHNIQUE: Helical scanning is acquired in 4 mm axial images were reformatted. Coronal and sagittal MPR images were generated and reviewed. FINDINGS: Preliminary digital satellite communications operator radiograph demonstrates moderate stool in the proximal and distal colon. The lung bases are clear on axial CT images. There is some motion artifact in the upper abdominal portion of the study. The liver and the spleen appear normal in size and homogeneous in texture. No adrenal lesion is seen on either side. No abnormality is noted the gallbladder or the pancreas. Kidneys appear morphologically intact. No calculus or hydronephrosis is seen. No retroperitoneal mass or adenopathy is observed. Formed stool is seen throughout the colon and the rectum is somewhat distended with formed stool and gas. A normal appendix is seen. Small bowel loops are unremarkable. Urinary bladder is normal in appearance. The uterus is surgically absent. IMPRESSION: Moderate stool question constipation. Otherwise negative CT study abdomen and pelvis. <Electronically signed by Andrea Ramesh > 07/02/20 [id number]
--- NOTE | 2020-07-02 08:10 | REP ---
INDICATION: Abdominal Pain. Repeat dictation. Preliminary report is provided at the time of the exam by joaquina SALMERON. COMPARISON: Comparison CT study April 29, 2020.. TECHNIQUE: Acute abdominal series: Three views including upright chest and abdomen views. FINDINGS: Upright chest radiograph is unremarkable. There is no evidence of infiltrate or free subdiaphragmatic air. Heart size is normal. Pulmonary vasculature is not increased. Pleural angles are sharp. Supine and erect views of the abdomen demonstrate moderate stool in the colon proximally and distally. No small bowel dilation is seen. No air-fluid level or obstructive lesion is seen. There is no evidence of free air. IMPRESSION: Moderate stool. Otherwise negative.. <Electronically signed by Andrea Ramesh > 07/02/20 [id number]
== END 2020-07-02 06:03 | disposition home or self-care (01) ==
LOC: M ED 19:34
DX: K59.00 Constipation, unspecified (principal); R00.0 Tachycardia, unspecified; R07.89 Other chest pain; J45.909 Unspecified asthma, uncomplicated; E03.9 Hypothyroidism, unspecified; K21.9 Gastro-esophageal reflux disease without esophagitis; Z87.440 Personal history of urinary (tract) infections; C85.90 Non-Hodgkin lymphoma, unspecified, unspecified site; Z94.81 Bone marrow transplant status; Z82.49 Family history of ischemic heart disease and other diseases of the circulatory system; Z87.19 Personal history of other diseases of the digestive system; Z91.041 Radiographic dye allergy status; Z88.4 Allergy status to anesthetic agent; Z91.040 Latex allergy status; Z79.899 Other long term (current) drug therapy
CPT/HCPCS: 74021; 74176; 80047; 80076; 80307; 81001; 82150; 82550; 82553; 83690; 84703; 85025; 93005; 96361; 96374; 96375; 96376; 99284; J1885; J2270; J2405

== ENCOUNTER 2020-08-11 07:23 | Emergency (ER) | payer MEDICAID ==
[~2020-08-11] VITALS: Ht 162.6 cm; Wt 69.1 kg
[~2020-08-11 07:23] MED LIST changes: -GNP8.6TA PO; +GNP8.6TA7 PO; +SYNT175T2 PO
[2020-08-11] MEDS ORDERED: PROC25SU24 PR (10:12)
[2020-08-11 10:30] VITALS: BP 115/82
== END 2020-08-11 10:39 | disposition home or self-care (01) ==
LOC: M ED 07:23 → EDBD 07:23 → M ED 10:39
DX: R11.0 Nausea (principal); Z76.5 Malingerer [conscious simulation]; R53.1 Weakness; R42 Dizziness and giddiness; I73.00 Raynaud's syndrome without gangrene; R56.9 Unspecified convulsions; F44.5 Conversion disorder with seizures or convulsions; Z85.71 Personal history of Hodgkin lymphoma; Z91.040 Latex allergy status; Z88.4 Allergy status to anesthetic agent; Z91.041 Radiographic dye allergy status; Z79.899 Other long term (current) drug therapy

== ENCOUNTER → 2020-09-02 | Outpatient (CLI) | payer MEDICAID ==
[~2020-09-02] MED LIST changes: +ISOVUE-370 76% 100ML VIAL As Ordered ONE; +PROC25SU24 PR
--- NOTE | 2020-09-02 09:14 | REP ---
INDICATION: LYMPHOMA COMPARISON: 04/29/2020 a noncontrast enhanced examination and the latest prior TECHNIQUE: Standard helical technique after the intravenous administration of 100 cc Isovue 370. FINDINGS: The mediastinum and pulmonary randi are essentially unchanged. No mass or adenopathy has developed. There are no pleural or pericardial effusions. There is no significant change in the imaged upper abdomen or imaged osseous structures. Evaluation of the lung mott show stable biapical pleuroparenchymal scarring. No new abnormal nodule, mass, or opacity has developed. There is respiratory motion artifact obscuring multiple lung base images. IMPRESSION: There is no evidence of acute disease or significant change compared to the prior exam with findings as described above. <Electronically signed by Shukri Hinojosa > 09/02/20 [id number]
--- NOTE | 2020-09-02 11:05 | REP ---
INDICATION: LYMPHOMA. COMPARISON: Comparison is made with CT images from cervical spine CT study dated 25 January 2019.. TECHNIQUE: Helical scanning is acquired following the intravenous injection of 75 mL of Isovue 370. Patient had been given the 13 hour prednisone and Benadryl premedication due to contrast allergy. Despite this, she developed urticaria following the injection. 3 mm axial images re-formatted. Coronal and sagittal multiplanar re-formation images are provided. FINDINGS: The thyroid lobes are small and symmetric normal in texture. Some parotid and submandibular glands are normal and symmetric. There is no evidence of suprahyoid or infrahyoid adenopathy. No supraclavicular lymphadenopathy is seen. No bony destructive lesion is seen. The paranasal sinuses are clear. No intraorbital mass is seen.9 the tongue and floor of mouth structures are unremarkable. Glottic and subglottic airway is intact. Normal epiglottis is apparent. Tonsillar and peritonsillar soft tissues are unremarkable. IMPRESSION: No neck mass or adenopathy seen. <Electronically signed by Andrea Ramesh > 09/02/20 [id number]
== END ==
LOC: M RAD 07:51
PROVIDERS: ATTEND Internal Medicine Hematology
DX: C81.90 Hodgkin lymphoma, unspecified, unspecified site (principal)
CPT/HCPCS: 70491; 71260; Q9967

== ENCOUNTER 2020-09-12 04:20 | Emergency (ER) | payer MEDICAID ==
[~2020-09-12] VITALS: Ht 165.1 cm; Wt 66.4 kg
[~2020-09-12 04:20] MED LIST changes: -ISOVUE-370 76% 100ML VIAL As Ordered ONE
[2020-09-12 04:56] LABS: BASO % 0.6 % (0.0-1.0); EOS % 0.9 % (0.0-3.0); HEMATOCRIT 39.3 % (36.0-47.0); HEMOGLOBIN 12.8 g/dl (12.0-15.5); LYMPH # 1.9 10^3/uL (1.5-5.0); MEAN CORPUSCULAR HEMOGLOBIN 28.3 pg (27.0-33.0); MEAN CORPUSCULAR HGB CONC 32.6 g/dl (32.0-36.5); MEAN CORPUSCULAR VOLUME 86.9 fl (80.0-96.0); MONO # 0.3 10^3/uL (0.0-0.8); MONO % 7.3 % (2.0-8.0); NEUTROPHILS # 2.3 10^3/uL (1.5-8.5); PLATELET COUNT, AUTOMATED 172 10^3/uL (150-450); RED BLOOD COUNT 4.52 10^6/uL (4.00-5.40); WHITE BLOOD COUNT 4.7 10^3/uL (4.0-10.0)
[2020-09-12 05:39] LABS: ALBUMIN 3.8 GM/DL (3.2-5.2); ALT/SGPT 13 U/L (12-78); BILIRUBIN,DIRECT < 0.1 MG/DL (0.0-0.2); BILIRUBIN,TOTAL 0.3 MG/DL (0.2-1.0); LIPASE 602 U/L (73-393)
[2020-09-12 06:31] LABS: BLOOD UREA NITROGEN 10 MG/DL (7-18); CALCIUM LEVEL 9.1 MG/DL (8.5-10.1); CARBON DIOXIDE LEVEL 23 MEQ/L (21-32); CHLORIDE LEVEL 107 MEQ/L (98-107); CREATININE FOR GFR 0.87 MG/DL (0.55-1.30); ETHYL ALCOHOL (ETHANOL) < 0.003 % (0.000-0.010); GLOMERULAR FILTRATION RATE > 60.0 (>60); GLUCOSE, FASTING 97 MG/DL (70-100); POTASSIUM SERUM 4.2 MEQ/L (3.5-5.1); SODIUM LEVEL 142 MEQ/L (136-145)
[2020-09-12] MEDS ORDERED: ONDANSETRON 4MG/2ML VIAL IV ONE (06:35)
[2020-09-12] MEDS ORDERED: MORPHINE 4 MG/ML 1ML VIAL/SYRINGE (J2270) IV PRN (06:35)
[2020-09-12] MEDS ORDERED: HALOPERIDOL 5MG/ML VIAL (J1630 PER 1) IV ONE (08:35)
[2020-09-12 09:33] LABS: AMPHETAMINES LEVEL URINE NEGATIVE (NEGATIVE); BARBITURATES URINE NEGATIVE (NEGATIVE); BENZODIAZEPINES URINE NEGATIVE (NEGATIVE); CANNABINOIDS URINE NEGATIVE (NEGATIVE); COCAINE METABOLITE URINE NEGATIVE (NEGATIVE); METHADONE URINE NEGATIVE (NEGATIVE); OPIATES URINE POSITIVE (NEGATIVE); PHENCYCLIDINE URINE NEGATIVE (NEGATIVE)
[2020-09-12 10:06] VITALS: BP 122/69
--- NOTE | 2020-09-15 12:54 | REP ---
INDICATION: generalized abd pain, n/v, contrast allergy, hx of pancreatitis COMPARISON: 07/02/2020. TECHNIQUE: CT Scan of the abdomen and pelvis was performed without intravenous contrast. Sagittal and coronal reconstruction images performed. FINDINGS: Lung bases: Unremarkable. Liver: Grossly unremarkable. Gallbladder: Unremarkable. Spleen: Grossly unremarkable. Adrenals: Normal. Pancreas: Grossly unremarkable.. Kidneys: No hydronephrosis or nephrolithiasis. Ureters demonstrate no dilatation or calculus. Small and large bowel: Grossly unremarkable. Free fluid: None. Abdominal aorta: No aneurysm. Adenopathy: None. Appendix: Not inflamed. Osseous structures: Unremarkable. Pelvis: No mass. No bladder calculus seen. Prior hysterectomy. IMPRESSION: Negative non-contrast CT abdomen and pelvis. A preliminary report was provided by [facility] at the time of the exam. <Electronically signed by Bartolo Dorado > 09/15/20 [id number]
== END 2020-09-12 10:17 | disposition home or self-care (01) ==
LOC: M ED 04:20
DX: R11.11 Vomiting without nausea (principal); G40.909 Epilepsy, unspecified, not intractable, without status epilepticus; Z79.890 Hormone replacement therapy; Z79.899 Other long term (current) drug therapy; Z85.72 Personal history of non-Hodgkin lymphomas
CPT/HCPCS: 74176; 80047; 80048; 80076; 80307; 82077; 83690; 84702; 85025; 93041; 96374; 96375; 99285; J1630; J2270; J2405

== ENCOUNTER 2020-09-14 04:29 | Observation (INO) | payer MEDICAID ==
[~2020-09-14] VITALS: Ht 162.6 cm; Wt 67.0 kg
[2020-09-14 05:33] LABS: BASO % 0.3 % (0.0-1.0); EOS # 0.1 10^3/uL (0.0-0.5); EOS % 0.9 % (0.0-3.0); HEMATOCRIT 42.7 % (36.0-47.0); HEMOGLOBIN 13.8 g/dl (12.0-15.5); LYMPH # 1.5 10^3/uL (1.5-5.0); LYMPH % 20.3 % (24.0-44.0); MEAN CORPUSCULAR HEMOGLOBIN 27.8 pg (27.0-33.0); MEAN CORPUSCULAR HGB CONC 32.3 g/dl (32.0-36.5); MEAN CORPUSCULAR VOLUME 86.1 fl (80.0-96.0); MONO # 0.5 10^3/uL (0.0-0.8); MONO % 7.2 % (2.0-8.0); NEUTROPHILS # 5.2 10^3/uL (1.5-8.5); PLATELET COUNT, AUTOMATED 190 10^3/uL (150-450); RED BLOOD COUNT 4.96 10^6/uL (4.00-5.40); WHITE BLOOD COUNT 7.4 10^3/uL (4.0-10.0)
[2020-09-14 06:07] LABS: ALBUMIN 4.4 GM/DL (3.2-5.2); ALT/SGPT 15 U/L (12-78); BILIRUBIN,DIRECT < 0.1 MG/DL (0.0-0.2); BILIRUBIN,TOTAL 0.5 MG/DL (0.2-1.0); LIPASE 181 U/L (73-393); TOTAL PROTEIN 8.3 GM/DL (6.4-8.2)
[2020-09-14] MEDS ORDERED: HALOPERIDOL 5MG/ML VIAL (J1630 PER 1) IV ONE (06:10)
[2020-09-14] MEDS ORDERED: NS 1,000 ML IV ONE (06:15)
[2020-09-14] MEDS ORDERED: HALOPERIDOL 5MG/ML VIAL (J1630 PER 1) As Ordered ONE (06:16)
[2020-09-14] MEDS ORDERED: diphenhydrAMINE CREAM 30GM TOP PRN (06:30)
[2020-09-14] MEDS ORDERED: diphenhydrAMINE 50MG/ML VIAL (J1200) IV STA (06:31)
[2020-09-14] MEDS ORDERED: NS 1,000 ML IV STA (06:37)
[2020-09-14] MEDS ORDERED: KETOROLAC 30 MG/ML 1ML VIAL IV ONE (07:50)
[2020-09-14] MEDS ORDERED: PROMETHAZINE INJ 25 MG/ML VIAL (J2550) IV ONE (08:30)
[2020-09-14] MEDS ORDERED: MELATONIN PO (09:22)
[2020-09-14] MEDS ORDERED: LEVO200T4 PO (09:22)
[2020-09-14] MEDS ORDERED: HEMP PO (09:22)
[2020-09-14] MEDS ORDERED: METOCLOPRAMIDE INJ 10MG/2ML VIAL (J2765 PER 1) IV PRN (09:45)
[2020-09-14] MEDS ORDERED: ACETAMINOPHEN TAB 650MG DOSE (2X325MG) PO PRN (09:45)
[2020-09-14] MEDS ORDERED: ONDANSETRON 4MG/2ML VIAL IV PRN (09:45)
--- NOTE | 2020-09-14 10:04 | HPEPDOC ---
General Date of Admission 09/14/20 Date of Service: September 14, 2020 Chief Complaint The patient is a 30-year-old female admitted with a reason for visit of Abd. Pain. Source: Patient Exam Limitations: No limitations Timing/Duration: Day(s) Severity: Moderate History of Present Illness Patient is 30 years old female with past medical history of Hodgkin lymphoma, history of epilepsy, hypothyroidism, asthma presented to the hospital with intractable vomiting and abdominal pain. Patient stated that she developed abdominal pain around 3-4 days ago with vomiting, 2 days ago she was in emergency, lipase level was elevated to 600 patient received treatment with antinausea medication and clear liquid and discharged home. For past 2 days patient developed a few episodes of vomiting with loss of appetite and diffuse abdominal pain. Patient denied fever, chills, diarrhea. In ER patient was found to have elevated lactic acid of 3.7, no leukocytosis. Home Medications Scheduled Lamotrigine (Lamictal) 200 Mg Tab, 200 MG PO BID, (Reported) Levetiracetam (Keppra) 750 Mg Tablet, 750 MG PO BID, (Reported) Levothyroxine Sodium (Levothyroxine Sodium) 200 Mcg Tablet, 200 MCG PO QAM, (Reported) [Melatonin W/Hemp] , 1 TAB PO QHS, (Reported) Allergies Coded Allergies: Iodinated Contrast Media (Verified Allergy, Severe, STOPS BREATHING, 02/23/20) latex (Verified Allergy, Severe, " everything reacts" , 02/23/20) fentanyl (Verified Allergy, Intermediate, hives, 02/23/20) Past Medical History Medical History Epilepsy Raynaud's disease Hodgkin's lymphoma s/p chemotherapy/bone marrow transplantation Hypothyroidism Asthma Diverticulosis Surgical History Pericardial window 2011 Bone marrow transplantation 2015 Partial hysterectomy 2020 Biopsy of neck fusion 2010 Family History Father/sister/daughter: Have seizure disorder Paternal aunt has Hodgkin's lymphoma Mother has cervical cancer Social History * Smoker: Denies Alcohol: Denies Drugs: denies A-FIB/CHADSVASC A-FIB History Current/History of A-Fib/PAF?: No Current PO Anticoag Therapy: No Review of Systems Constitutional: Denies: Chills, Fever Eyes: Denies: Pain, Vision change ENT: Denies: Head Aches Skin: Denies: Rash, Lesions Pulmonary: Denies: Dyspnea, Cough Cardiovascular: Denies: Chest Pain Gastrointestinal: Reports: Nausea, Vomiting, Abdominal Pain Genitourinary: Denies: Dysuria, Frequency Hematologic: Denies: Bruising Endocrine: Denies: Polydipsia Musculoskeletal: Denies: Neck Pain Neurological: Denies: Weakness Psych: Reports: Mood Normal Physical Examination General Exam: Positive: Alert, Cooperative Eye Exam: Positive: PERRLA ENT Exam: Positive: Atraumatic Neck Exam: Positive: Supple; Negative: JVD Chest Exam: Positive: Clear to auscultation Heart Exam: Positive: Rate Normal Telemetry: Positive: No significant arrhythmia Abdomen Exam: Positive: Soft (mild diffuse tenderness), Tenderness Extremity Exam: Negative: Clubbing Skin Exam: Negative: Nl turgor and temperature Neuro Exam: Positive: Normal Gait Psych Exam: Positive: Mental status NL Vital Signs Vital Signs Date Time Temp Pulse Resp B/P (MAP) Pulse Ox O2 Delivery O2 Flow Rate FiO2 09/14/20 08:45 91 18 109/60 (76) 100 Room Air 09/14/20 04:50 98.3 Laboratory Data Labs 24H Laboratory Tests 2 09/14/20 05:16: POC Glucose (Misc Panel) 95, POC Sodium (Misc Panel) 139, POC Potassium (Misc Panel) 4.3, POC Chloride (Misc Panel) 104, POC Total CO2 (Misc Panel) 24.0, POC Blood Urea Nitrogen (Misc Panel 12, POC Ionized Calcium (Misc Panel) 4.3L, POC Creatinine (Misc Panel) 1.0, POC Hematocrit (Misc Panel) 43.0 09/14/20 05:17: POC Beta HCG, Quantitative < 5.0 09/14/20 05:19: Immature Granulocyte % (Auto) 0.3, Neutrophils (%) (Auto) 71.0H, Lymphocytes (%) (Auto) 20.3L, Monocytes (%) (Auto) 7.2, Eosinophils (%) (Auto) 0.9, Basophils (%) (Auto) 0.3, Neutrophils # (Auto) 5.2, Lymphocytes # (Auto) 1.5, Monocytes # (Auto) 0.5, Eosinophils # (Auto) 0.1, Basophils # (Auto) 0.0, Nucleated Red Blood Cells % (auto) 0.0, Lactic Acid Level 3.7*H, Total Bilirubin 0.5#, Direct Bilirubin < 0.1, Aspartate Amino Transf (AST/SGOT) 25, Alanine Aminotransferase (ALT/SGPT) 15, Alkaline Phosphatase 63, Total Protein 8.3H, Albumin 4.4, Albumin/Globulin Ratio 1.1L, Lipase 181 CBC/BMP Laboratory Tests 09/14/20 05:19 Assessment/Plan Patient is 30 years old female with past medical history of Hodgkin lymphoma, history of epilepsy, hypothyroidism, asthma presented to the hospital with intr actable vomiting and abdominal pain. Patient stated that she developed abdominal pain around 3-4 days ago with vomiting, 2 days ago she was in emergency, lipase level was elevated to 600 patient received treatment with antinausea medication and clear liquid and discharged home. For past 2 days patient developed a few episodes of vomiting with loss of appetite and diffuse abdominal pain. Patient denied fever, chills, diarrhea. In ER patient was found to have elevated lactic acid of 3.7, no leukocytosis. Problems (1) Abdominal pain Status: Acute Problem Text: Unclear etiology. Abdomen is soft on palpation no rebound 2 days ago lipase level was elevated to 600, CT abdomen was not done. On the admission lipase level with in normal limit We'll proceed with CT abdomen and pelvis IV fluid We'll check triglyceride level Clear liquid diet for now Pain management (2) Nausea & vomiting Status: Acute Problem Text: Unclear etiology Zofran IV (3) Hodgkins disease Status: Chronic Problem Text: Follow-up with oncologist in the outpatient settings (4) Seizure Status: Chronic Problem Text: Continue home antiseizure medications (5) Hypothyroidism Status: Chronic Problem Text: Continue Synthroid Plan / VTE VTE Prophylaxis Ordered?: Yes HU SALGADO DO September 14, 2020 10:04
[2020-09-14] MEDS: NS 1,000 ML IV SCH ×2 (10:48→18:06)
[2020-09-14] MEDS: LEVOTHYROXINE 100MCG TABLET (0.1MG) PO SCH (10:48)
[2020-09-14] MEDS: levETIRAcetam 250MG TABLET (KEPPRA) PO SCH ×2 (10:48→20:01)
[2020-09-14] MEDS: lamoTRIgine 100MG TAB PO SCH ×2 (10:49→20:01)
[2020-09-14 10:59] LABS: RSV AMPLIFICATION NEGATIVE (NEGATIVE)
[2020-09-14 11:22] VITALS: BP 115/75
[2020-09-14 11:34] LABS: T UPTAKE 28 % (30-39)
[2020-09-14] MEDS: KETOROLAC 30 MG/ML 1ML VIAL IV PRN ×2 (13:15→20:01)
[2020-09-14 14:00] VITALS: BP 115/73
--- NOTE | 2020-09-14 18:22 | ECGEPIP ---
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
[2020-09-14 22:00] VITALS: BP 118/74
[2020-09-15] MEDS: NS 1,000 ML IV SCH (01:43)
[2020-09-15] MEDS: KETOROLAC 30 MG/ML 1ML VIAL IV PRN (01:43)
[2020-09-15] MEDS: LEVOTHYROXINE 100MCG TABLET (0.1MG) PO SCH (05:42)
[2020-09-15 06:00] VITALS: BP 118/77
[2020-09-15 06:41] LABS: HEMATOCRIT 35.4 % (36.0-47.0); MEAN CORPUSCULAR HEMOGLOBIN 28.3 pg (27.0-33.0); MEAN CORPUSCULAR HGB CONC 31.9 g/dl (32.0-36.5); MEAN CORPUSCULAR VOLUME 88.5 fl (80.0-96.0); PLATELET COUNT, AUTOMATED 147 10^3/uL (150-450); WHITE BLOOD COUNT 3.2 10^3/uL (4.0-10.0)
[2020-09-15 06:54] LABS: HEMOGLOBIN 11.3 g/dl (12.0-15.5)
[2020-09-15 07:16] LABS: ALBUMIN 3.2 GM/DL (3.2-5.2); ALT/SGPT 14 U/L (12-78); BILIRUBIN,TOTAL 0.3 MG/DL (0.2-1.0); BLOOD UREA NITROGEN 3 MG/DL (7-18); CALCIUM LEVEL 7.9 MG/DL (8.5-10.1); CARBON DIOXIDE LEVEL 22 MEQ/L (21-32); CHLORIDE LEVEL 110 MEQ/L (98-107); CREATININE FOR GFR 0.65 MG/DL (0.55-1.30); GLOMERULAR FILTRATION RATE > 60.0 (>60); GLUCOSE, FASTING 85 MG/DL (70-100); MAGNESIUM LEVEL 1.9 MG/DL (1.8-2.4); POTASSIUM SERUM 3.8 MEQ/L (3.5-5.1); SODIUM LEVEL 141 MEQ/L (136-145); TOTAL PROTEIN 6.2 GM/DL (6.4-8.2); TRIGLYCERIDES LEVEL 46 MG/DL (<150)
[2020-09-15] MEDS ORDERED: POTASSIUM CHLORIDE 10 MEQ SR TABLET PO ONE (08:00)
[2020-09-15] MEDS: lamoTRIgine 100MG TAB PO SCH (08:23)
[2020-09-15] MEDS: levETIRAcetam 250MG TABLET (KEPPRA) PO SCH (08:23)
[2020-09-15] MEDS ORDERED: REGL5TAB2 PO (08:58)
[2020-09-15] MEDS ORDERED: ENOXAPARIN 40MG/0.4ML SYRINGE (J1650 PER 10MG) SC SCH (09:00)
--- NOTE | 2020-09-15 11:27 | REP ---
INDICATION: abd pain. COMPARISON: Multiple the latest 09/12/2020 TECHNIQUE: Noncontrast enhanced stone protocol helical CT. FINDINGS: The lung bases are clear and unchanged. The liver, gallbladder, spleen, pancreas, adrenal glands, and kidneys are unchanged. The abdominal aorta and para-aortic regions are unchanged. There is no significant change in appearance of the bowel loops or the mesenteries. There is no free air. There is a trace of free pelvic fluid. There is no change in the osseous structures. IMPRESSION: No significant change from the prior exam. There is a trace amount of free pelvic fluid probably physiologic. Correlate with pelvic ultrasonography if necessary. <Electronically signed by Shukri Hinojosa > 09/15/20 [id number]
--- NOTE | 2020-09-15 12:43 | DS.PDOC ---
Discharge Summary General Date of Admission September 14, 2020 at 09:42 Date of Discharge 09/15/20 Discharge Summary PROCEDURES PERFORMED DURING STAY: [None]. ADMITTING DIAGNOSES: Abdominal pain Nausea & vomiting Hodgkins disease Seizure Hypothyroidism DISCHARGE DIAGNOSES: Abdominal pain Nausea & vomiting Hodgkins disease Seizure Hypothyroidism COMPLICATIONS/CHIEF COMPLAINT: Nausea & Vomiting. HISTORY OF PRESENT ILLNESS: Patient is 30 years old female with past medical history of Hodgkin lymphoma, history of epilepsy, hypothyroidism, asthma presented to the hospital with intractable vomiting and abdominal pain. Patient stated that she developed abdominal pain around 3-4 days ago with vomiting, 2 days ago she was in emergency, lipase level was elevated to 600 patient received treatment with antinausea medication and clear liquid and discharged home. For past 2 days patient developed a few episodes of vomiting with loss of appetite and diffuse abdominal pain. Patient denied fever, chills, diarrhea. In ER patient was found to have elevated lactic acid of 3.7, no leukocytosis. HOSPITAL COURSE: During the hospital stay the following issues addressed (1) Abdominal pain Unclear etiology. Abdomen is soft on palpation no rebound 2 days ago lipase level was elevated to 600, CT abdomen was not done. On the admission lipase level with in normal limit CT abdomen and pelvis see below Continue IV fluid triglyceride level within normal limit Patient tolerates diet well (2) Nausea & vomiting Unclear etiology Zofran IV (3) Hodgkins disease Follow-up with oncologist in the outpatient settings (4) Seizure Continue home antiseizure medications (5) Hypothyroidism Continue Synthroid DISCHARGE MEDICATIONS: Please see below. ALLERGIES: Please see below. PHYSICAL EXAMINATION ON DISCHARGE: VITAL SIGNS: Please see below. General Exam: Positive: Alert, Cooperative Eye Exam: Positive: PERRLA ENT Exam: Positive: Atraumatic Neck Exam: Positive: Supple; Negative: JVD Chest Exam: Positive: Clear to auscultation Heart Exam: Positive: Rate Normal Telemetry: Positive: No significant arrhythmia Abdomen Exam: Positive: Soft (mild diffuse tenderness), Tenderness Extremity Exam: Negative: Clubbing Skin Exam: Negative: Nl turgor and temperature Neuro Exam: Positive: Normal Gait Psych Exam: Positive: Mental status NL LABORATORY DATA: Please see below. IMAGING: abd pain. COMPARISON: Multiple the latest 09/12/2020 TECHNIQUE: Noncontrast enhanced stone protocol helical CT. FINDINGS: The lung bases are clear and unchanged. The liver, gallbladder, spleen, pancreas, adrenal glands, and kidneys are unchanged. The abdominal aorta and para-aortic regions are unchanged. There is no significant change in appearance of the bowel loops or the mesenteries. There is no free air. There is a trace of free pelvic fluid. There is no change in the osseous structures. IMPRESSION: No significant change from the prior exam. There is a trace amount of free pelvic fluid probably physiologic. Correlate with pelvic ultrasonography if necessary. PROGNOSIS: Fair ACTIVITY: [As tolerated]. DIET: Soft mechanical diet for next 3-5 days DISPOSITION: Home ITEMS TO FOLLOWUP ON ON OUTPATIENT: Follow-up with PCP in 3-5 days DISCHARGE CONDITION: [Stable]. TIME SPENT ON DISCHARGE: 40 minutes. Vital Signs/I&Os Vital Signs Date Time Temp Pulse Resp B/P (MAP) Pulse Ox O2 Delivery O2 Flow Rate FiO2 09/15/20 06:00 98.4 93 18 118/77 (91) 98 Room Air I&O- Last 24 Hours up to 6 AM 09/15/20 06:00 Intake Total 4280 ml Output Total 900 ml Balance 3380 ml Laboratory Data Labs 24H Laboratory Tests 2 09/15/20 06:15: Nucleated Red Blood Cells % (auto) 0.0, Anion Gap 9, Glomerular Filtration Rate > 60.0, Calcium Level 7.9L, Magnesium Level 1.9, Total Bilirubin 0.3, Aspartate Amino Transf (AST/SGOT) 12, Alanine Aminotransferase (ALT/SGPT) 14, Alkaline Phosphatase 48, Total Protein 6.2#L, Albumin 3.2#, Albumin/Globulin Ratio 1.1L, Triglycerides Level 46 CBC/BMP Laboratory Tests 09/15/20 06:15 Discharge Medications Scheduled Lamotrigine (Lamictal) 200 Mg Tab, 200 MG PO BID, (Reported) Levetiracetam (Keppra) 750 Mg Tablet, 750 MG PO BID, (Reported) Levothyroxine Sodium (Levothyroxine Sodium) 200 Mcg Tablet, 200 MCG PO QAM, (Reported) [Melatonin W/Hemp] , 1 TAB PO QHS, (Reported) Scheduled PRN Metoclopramide Hcl (Reglan) 5 Mg Tablet, 1 TAB PO TID PRN for NAUSEA 1 hour prior to procedure Allergies Coded Allergies: Iodinated Contrast Media (Verified Allergy, Severe, STOPS BREATHING, 02/23/20) latex (Verified Allergy, Severe, " everything reacts" , 02/23/20) fentanyl (Verified Allergy, Intermediate, hives, 02/23/20) HU SALGADO DO Sep 15, 2020 12:43
== END 2020-09-15 12:58 | disposition home or self-care (01) ==
LOC: M ED 04:29 → M ED INP 09:42 → ENRESERV 10:41 → M MSPAV 11:22
PROVIDERS: ADMIT Internal Medicine; ATTEND Internal Medicine
DX: R11.2 Nausea with vomiting, unspecified (principal); R10.9 Unspecified abdominal pain; Z85.71 Personal history of Hodgkin lymphoma; Z92.21 Personal history of antineoplastic chemotherapy; Z94.81 Bone marrow transplant status; G40.909 Epilepsy, unspecified, not intractable, without status epilepticus; E03.9 Hypothyroidism, unspecified; J45.909 Unspecified asthma, uncomplicated; I73.00 Raynaud's syndrome without gangrene; K57.90 Diverticulosis of intestine, part unspecified, without perforation or abscess without bleeding; Z79.899 Other long term (current) drug therapy; Z91.041 Radiographic dye allergy status; Z88.5 Allergy status to narcotic agent; Z91.040 Latex allergy status
CPT/HCPCS: 36415; 74176; 80047; 80053; 80076; 83605; 83690; 83735; 84145; 84436; 84443; 84478; 84479; 84702; 85025; 85027; 87631; 93005; 93041; 96361; 96372; 96374; 96375; 96376; 99285; J1200; J1630; J1650; J1885; J2405

== ENCOUNTER → 2021-01-12 | Outpatient (CLI) | payer MEDICAID ==
[~2021-01-12] MED LIST changes: -GNP8.6TA7 PO; +HEMP PO; +LEVO200T4 PO; +MELATONIN PO; +OMEP40CA4 PO; -OMEP40CA97 PO; +REGL5TAB2 PO; +SENN-111 PO
--- NOTE | 2021-01-12 10:55 | REP ---
INDICATION: LEFT BREAST LUMP. COMPARISON: 08/06/2018 the only prior TECHNIQUE: Diagnostic digital CC and MLO views of the left breast were obtained. 2D and 3D images were acquired. Diagnostic ultrasonography over the region of interest indicated by the technologist placing a triangular-shaped marker on the skin was also obtained. Due to the superior posterior nature of the clinical abnormality which is in the axillary tail region no additional mammographic images could be obtained. FINDINGS: The left breast is unchanged in size and shape. Once again, scattered dense heterogenous fibroglandular elements are seen in the left breast in a stable appearing pattern. There are no oswaldo soft tissue densities or spiculated masses. There is no internal architectural distortion. There are no suspicious calcifications. Diagnostic ultrasonography of the region of interest shows no cystic or solid masses. The Volpara volumetric breast density pattern is b. IMPRESSION: BIRADS/ACR category 2 benign findings. There is no mammographic evidence or ultrasonographic evidence of malignant alteration of the left breast. A negative mammogram and a negative ultrasound exam should never curtail biopsy of a clinically palpable mass or clinically suspicious area the breast. This patient's Tyrer-Cuzick lifetime breast cancer risk assessment score is 11.9%. This mammogram was interpreted with the aid of an FDA-approved computer-aided detection system. The patient states she had a clinical breast exam in December 2020. The patient letter being requested is M2. RECOMMENDATION: Repeat screening mammography recommended 1 year (for women over 40). <Electronically signed by Shukri Hinojosa > 01/12/21 [id number]
== END ==
LOC: M WHC 09:24
PROVIDERS: ATTEND Family Medicine
DX: N63.20 Unspecified lump in the left breast, unspecified quadrant (principal)
CPT/HCPCS: 76642; 77065; G0279

== ENCOUNTER → 2021-01-28 | Outpatient (CLI) | payer MEDICAID ==
[2021-01-28 13:30] LABS: FREE T4 0.68 NG/DL (0.76-1.46); THYROID STIMULATING HORMONE 8.35 uIU/ML (0.358-3.740)
== END ==
LOC: M PLALAB 11:15
PROVIDERS: ATTEND Family Medicine
DX: E03.9 Hypothyroidism, unspecified (principal)

== ENCOUNTER 2021-02-17 03:46 | Emergency (ER) | payer MEDICAID ==
[~2021-02-17] VITALS: Ht 165.1 cm; Wt 67.2 kg
[2021-02-17 04:15] LABS: BASO % 0.3 % (0.0-1.0); EOS % 0.1 % (0.0-3.0); HEMATOCRIT 39.5 % (36.0-47.0); HEMOGLOBIN 12.8 g/dl (12.0-15.5); LYMPH # 0.9 10^3/uL (1.5-5.0); LYMPH % 12.5 % (24.0-44.0); MEAN CORPUSCULAR HEMOGLOBIN 28.3 pg (27.0-33.0); MEAN CORPUSCULAR HGB CONC 32.4 g/dl (32.0-36.5); MEAN CORPUSCULAR VOLUME 87.4 fl (80.0-96.0); MONO # 0.3 10^3/uL (0.0-0.8); MONO % 3.7 % (2.0-8.0); NEUTROPHILS % 83.3 % (36.0-66.0); PLATELET COUNT, AUTOMATED 212 10^3/uL (150-450); RED BLOOD COUNT 4.52 10^6/uL (4.00-5.40); WHITE BLOOD COUNT 7.2 10^3/uL (4.0-10.0)
[2021-02-17] MEDS ORDERED: METO5TAB2 (04:22)
[2021-02-17 04:52] LABS: BLOOD UREA NITROGEN 9 MG/DL (7-18); CALCIUM LEVEL 8.7 MG/DL (8.5-10.1); CARBON DIOXIDE LEVEL 25 MEQ/L (21-32); CHLORIDE LEVEL 108 MEQ/L (98-107); CPK CREATINE PHOSPHOKINASE 74 U/L (26-192); CREATININE FOR GFR 0.85 MG/DL (0.55-1.30); ETHYL ALCOHOL (ETHANOL) < 0.003 % (0.000-0.010); GLOMERULAR FILTRATION RATE > 60.0 (>60); GLUCOSE, FASTING 107 MG/DL (70-100); SODIUM LEVEL 141 MEQ/L (136-145)
[2021-02-17 05:05] LABS: HCG, SERUM QUALITATIVE NEGATIVE (NEGATIVE)
--- NOTE | 2021-02-17 05:52 | ECGEPIP ---
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
[2021-02-17 08:01] VITALS: BP 130/80
--- NOTE | 2021-02-17 08:19 | REP ---
INDICATION: seizure. COMPARISON: CT chest 09/02/2020. TECHNIQUE: CT cervical spine performed in the axial plane, with sagittal and coronal reconstruction images performed. FINDINGS: There is no acute compression fracture or malalignment. There is no prevertebral soft tissue swelling. Disc spaces are well preserved. There is normal cervical lordosis. There is no abnormal density in the spinal canal.There is biapical scarring in the lungs which is stable compared to the prior CT of chest 09/02/2020. IMPRESSION: No evidence of acute fracture or dislocation. A preliminary report was provided by [facility] at the time of the exam. <Electronically signed by Bartolo Dorado > 02/17/21 [id number]
--- NOTE | 2021-02-17 08:21 | REP ---
INDICATION: seizure. COMPARISON: 04/28/2020. TECHNIQUE: CT brain performed in the axial plane. Coronal reconstruction images are performed. FINDINGS: The ventricles are normal in size and position.. There is no midline shift or mass effect. Dorado-white differentiation is well maintained. There is no acute intracranial hemorrhage or extra-axial fluid collection. Bone window examination is unremarkable. The visualized mastoid air cells and paranasal sinuses are clear. IMPRESSION: Negative noncontrast CT brain. A preliminary report was provided by [facility] at the time of the exam. <Electronically signed by Bartolo Dorado > 02/17/21 [id number]
== END 2021-02-17 08:28 | disposition home or self-care (01) ==
LOC: EDBD 03:46 → M ED 03:46
DX: F44.5 Conversion disorder with seizures or convulsions (principal); Z79.899 Other long term (current) drug therapy; Z91.041 Radiographic dye allergy status; Z88.5 Allergy status to narcotic agent; Z91.040 Latex allergy status

== ENCOUNTER → 2021-02-18 | Outpatient (CLI) | payer MEDICAID ==
[~2021-02-18] MED LIST changes: +METO5TAB2
[2021-02-18 16:01] LABS: FREE T4 0.88 NG/DL (0.76-1.46); THYROID STIMULATING HORMONE 8.09 uIU/ML (0.358-3.740)
== END ==
LOC: M PLALAB 13:37
PROVIDERS: ATTEND Family Medicine
DX: E03.9 Hypothyroidism, unspecified (principal)

== ENCOUNTER 2021-05-01 00:57 | Emergency (ER) | payer MEDICAID ==
[~2021-05-01] VITALS: Ht 170.2 cm; Wt 60.0 kg
[~2021-05-01 00:57] MED LIST changes: -CEFD1CAP8 PO; +CEFD300C41 PO
[2021-05-01 04:27] LABS: BASO % 0.1 % (0.0-1.0); EOS % 0.1 % (0.0-3.0); HEMATOCRIT 39.5 % (36.0-47.0); HEMOGLOBIN 12.8 g/dl (12.0-15.5); LYMPH # 1.3 10^3/uL (1.5-5.0); LYMPH % 13.5 % (24.0-44.0); MEAN CORPUSCULAR HEMOGLOBIN 28.2 pg (27.0-33.0); MEAN CORPUSCULAR HGB CONC 32.4 g/dl (32.0-36.5); MONO # 0.3 10^3/uL (0.0-0.8); MONO % 3.6 % (2.0-8.0); NEUTROPHILS # 7.7 10^3/uL (1.5-8.5); NEUTROPHILS % 82.3 % (36.0-66.0); PLATELET COUNT, AUTOMATED 188 10^3/uL (150-450); RED BLOOD COUNT 4.54 10^6/uL (4.00-5.40); WHITE BLOOD COUNT 9.3 10^3/uL (4.0-10.0)
[2021-05-01] MEDS ORDERED: ACETAMINOPHEN TAB 650MG DOSE (2X325MG) PO ONE (04:50)
[2021-05-01 04:54] LABS: ACETAMINOPHEN LEVEL < 2.0 UG/ML (10.0-30.0); ALBUMIN 4.2 GM/DL (3.2-5.2); ALT/SGPT 15 U/L (12-78); BILIRUBIN,DIRECT 0.1 MG/DL (0.0-0.2); BILIRUBIN,TOTAL 0.4 MG/DL (0.2-1.0); BLOOD UREA NITROGEN 9 MG/DL (7-18); CALCIUM LEVEL 8.8 MG/DL (8.5-10.1); CARBON DIOXIDE LEVEL 25 MEQ/L (21-32); CHLORIDE LEVEL 108 MEQ/L (98-107); CREATININE FOR GFR 0.67 MG/DL (0.55-1.30); ETHYL ALCOHOL (ETHANOL) < 0.003 % (0.000-0.010); GLOMERULAR FILTRATION RATE > 60.0 (>60); GLUCOSE, FASTING 95 MG/DL (70-100); POTASSIUM SERUM 3.9 MEQ/L (3.5-5.1); SALICYLATE LEVEL < 1.7 MG/DL (5.0-30.0); SODIUM LEVEL 141 MEQ/L (136-145); TOTAL PROTEIN 7.7 GM/DL (6.4-8.2)
[2021-05-01 05:02] LABS: AMPHETAMINES LEVEL URINE NEGATIVE (NEGATIVE); BARBITURATES URINE NEGATIVE (NEGATIVE); BENZODIAZEPINES URINE POSITIVE (NEGATIVE); CANNABINOIDS URINE NEGATIVE (NEGATIVE); COCAINE METABOLITE URINE NEGATIVE (NEGATIVE); METHADONE URINE NEGATIVE (NEGATIVE); OPIATES URINE NEGATIVE (NEGATIVE); PHENCYCLIDINE URINE NEGATIVE (NEGATIVE)
[2021-05-01] MEDS ORDERED: diphenhydrAMINE 50MG/ML VIAL (J1200) IV STA (07:07)
[2021-05-01] MEDS ORDERED: NS 1,000 ML IV ONE (07:10)
[2021-05-01] MEDS ORDERED: METOCLOPRAMIDE INJ 10MG/2ML VIAL (J2765 PER 1) IV ONE (07:10)
[2021-05-01] MEDS ORDERED: KETOROLAC 30 MG/ML 1ML VIAL IV ONE (08:20)
[2021-05-01] MEDS ORDERED: PROMETHAZINE INJ 25 MG/ML VIAL (J2550) IV ONE (08:55)
[2021-05-01] MEDS ORDERED: PROMETHAZINE INJ 25 MG/ML VIAL (J2550) IM ONE (09:20)
[2021-05-01 10:45] VITALS: BP 150/69
== END 2021-05-01 10:54 | disposition home or self-care (01) ==
LOC: M ED 00:57
DX: R56.9 Unspecified convulsions (principal); Z86.69 Personal history of other diseases of the nervous system and sense organs; Z91.048 Other nonmedicinal substance allergy status; Z91.040 Latex allergy status; Z88.4 Allergy status to anesthetic agent; Z79.899 Other long term (current) drug therapy
CPT/HCPCS: 70450; 80048; 80076; 80143; 80307; 82077; 84443; 85025; 94760; 96361; 96372; 96374; 96375; 99285; J1200; J1885; J2765

== ENCOUNTER → 2021-05-19 | Outpatient (CLI) | payer MEDICAID ==
[2021-05-19 11:55] LABS: FREE T4 0.73 NG/DL (0.76-1.46); THYROID STIMULATING HORMONE 10.8 uIU/ML (0.358-3.740)
== END ==
LOC: M LAB 09:51
PROVIDERS: ATTEND Family Medicine
DX: E03.9 Hypothyroidism, unspecified (principal)

== ENCOUNTER 2021-06-05 16:58 | Emergency (ER) | payer MEDICAID ==
[~2021-06-05] VITALS: Ht 152.4 cm; Wt 66.7 kg
[2021-06-05] MEDS ORDERED: ONDANSETRON 4MG/2ML VIAL As Ordered ONE (19:57)
[2021-06-05] MEDS ORDERED: ONDANSETRON 4MG/2ML VIAL IV ONE (20:00)
[2021-06-05 21:24] VITALS: BP 115/69
[2021-06-11 13:07] LABS: LAMOTRIGINE (LAMICTAL) 3.6 ug/mL (2.0-20.0); LEVETIRACETAM (KEPPRA) 4.3 ug/mL (10.0-40.0)
== END 2021-06-05 21:34 | disposition home or self-care (01) ==
LOC: M ED 16:58
DX: G40.909 Epilepsy, unspecified, not intractable, without status epilepticus (principal); J45.909 Unspecified asthma, uncomplicated; E07.9 Disorder of thyroid, unspecified; Z85.71 Personal history of Hodgkin lymphoma; Z94.81 Bone marrow transplant status; Z91.041 Radiographic dye allergy status; Z88.5 Allergy status to narcotic agent; Z91.040 Latex allergy status; Z79.899 Other long term (current) drug therapy
CPT/HCPCS: 80047; 80175; 80180; 96374; 99284; J2405

== ENCOUNTER 2021-06-07 21:56 | Observation (INO) | payer MEDICAID ==
[~2021-06-07] VITALS: Ht 167.6 cm; Wt 70.1 kg
[2021-06-07] MEDS ORDERED: KETOROLAC 30 MG/ML 1ML VIAL IV ONE (22:10)
[2021-06-07] MEDS ORDERED: NS 1,000 ML IV ONE (22:10)
[2021-06-07] MEDS ORDERED: ONDANSETRON 4MG/2ML VIAL IV ONE (22:10)
[2021-06-07 22:50] LABS: BASO % 0.4 % (0.0-1.0); EOS # 0.1 10^3/uL (0.0-0.5); EOS % 0.9 % (0.0-3.0); HEMOGLOBIN 12.5 g/dl (12.0-15.5); LYMPH # 0.7 10^3/uL (1.5-5.0); LYMPH % 13.5 % (24.0-44.0); MEAN CORPUSCULAR HEMOGLOBIN 28.4 pg (27.0-33.0); MEAN CORPUSCULAR HGB CONC 32.9 g/dl (32.0-36.5); MEAN CORPUSCULAR VOLUME 86.4 fl (80.0-96.0); MONO # 0.4 10^3/uL (0.0-0.8); MONO % 6.7 % (2.0-8.0); NEUTROPHILS # 4.2 10^3/uL (1.5-8.5); NEUTROPHILS % 78.3 % (36.0-66.0); PLATELET COUNT, AUTOMATED 174 10^3/uL (150-450); WHITE BLOOD COUNT 5.4 10^3/uL (4.0-10.0)
[2021-06-07 23:23] LABS: ALBUMIN 3.9 GM/DL (3.2-5.2); ALT/SGPT 16 U/L (12-78); BILIRUBIN,DIRECT < 0.1 MG/DL (0.0-0.2); BILIRUBIN,TOTAL 0.2 MG/DL (0.2-1.0); BLOOD UREA NITROGEN 18 MG/DL (7-18); CALCIUM LEVEL 8.9 MG/DL (8.5-10.1); CARBON DIOXIDE LEVEL 27 MEQ/L (21-32); CHLORIDE LEVEL 105 MEQ/L (98-107); CREATININE FOR GFR 0.87 MG/DL (0.55-1.30); GLOMERULAR FILTRATION RATE > 60.0 (>60); GLUCOSE, FASTING 103 MG/DL (70-100); SODIUM LEVEL 137 MEQ/L (136-145); TOTAL PROTEIN 7.1 GM/DL (6.4-8.2)
[2021-06-08] MEDS ORDERED: GLUCOSE 4GM CHEW TABLET PO PRN (00:20)
[2021-06-08] MEDS ORDERED: MAALOX 30 ML SUSP *UDC PO PRN (00:20)
[2021-06-08] MEDS ORDERED: MOM 30ML SUSPENSION UDC PO PRN (00:20)
[2021-06-08] MEDS ORDERED: DEXTROSE 50% 50 ML SYRINGE IV PRN (00:20)
[2021-06-08] MEDS ORDERED: GLUCAGON INJ 1MG VIAL SC PRN (00:20)
[2021-06-08] MEDS: NS 1,000 ML IV SCH ×2 (00:33→10:49)
[2021-06-08] MEDS ORDERED: FIORICET TAB PO ONE (01:00)
[2021-06-08] MEDS ORDERED: ONDANSETRON 4 MG ORAL DISINTEGRATING TAB PO ONE (01:00)
[2021-06-08 01:07] LABS: INR 0.97; PROTHROMBIN TIME 13.3 SECONDS (12.7-14.5)
[2021-06-08 01:08] LABS: PARTIAL THROMBOPLASTIN TIME 26.4 SECONDS (25.9-37.0)
[2021-06-08 01:11] LABS: RSV AMPLIFICATION NEGATIVE (NEGATIVE)
[2021-06-08] MEDS ORDERED: SYNT50TA PO (02:05)
[2021-06-08] MEDS ORDERED: MELA5TAB36 PO (02:05)
[2021-06-08] MEDS ORDERED: HOME MED LIST COMPLETE! XX SCH (02:10)
[2021-06-08] MEDS: ACETAMINOPHEN TAB 650MG DOSE (2X325MG) PO PRN ×2 (04:27→09:09)
[2021-06-08] MEDS ORDERED: LEVOTHYROXINE 50MCG TABLET (0.05MG) PO SCH (06:00)
[2021-06-08] MEDS ORDERED: LORazepam 2 MG/ML VIAL IV PRN (06:05)
[2021-06-08 07:16] LABS: FREE T4 1.04 NG/DL (0.76-1.46); MAGNESIUM LEVEL 2.2 MG/DL (1.8-2.4); THYROID STIMULATING HORMONE 25.9 uIU/ML (0.358-3.740)
[2021-06-08 08:00] VITALS: BP 107/59
[2021-06-08 08:14] LABS: PROLACTIN 22.7 NG/ML
[2021-06-08] MEDS ORDERED: ENOXAPARIN 40MG/0.4ML SYRINGE (J1650 PER 10MG) SC SCH (09:00)
[2021-06-08] MEDS ORDERED: levETIRAcetam 250MG TABLET (KEPPRA) PO SCH (09:00)
[2021-06-08] MEDS ORDERED: DOCUSATE SODIUM 100MG CAPSULE PO SCH (09:00)
[2021-06-08] MEDS ORDERED: lamoTRIgine 100MG TAB PO SCH (09:00)
[2021-06-08] MEDS ORDERED: IBUPROFEN 800 MG TAB PO ONE (11:25)
== END 2021-06-08 16:12 | disposition home or self-care (01) ==
LOC: M ED 21:56 → EDBD 21:56 → M ED INP 06-08 00:20 → ENRESERV 06-08 06:07 → M PCU 06-08 07:10
PROVIDERS: ADMIT Internal Medicine; ATTEND Internal Medicine
DX: F44.5 Conversion disorder with seizures or convulsions (principal); R51.9 Headache, unspecified; R11.0 Nausea; R20.0 Anesthesia of skin; I73.00 Raynaud's syndrome without gangrene; J45.909 Unspecified asthma, uncomplicated; E03.9 Hypothyroidism, unspecified; Z85.71 Personal history of Hodgkin lymphoma; Z94.81 Bone marrow transplant status; Z91.041 Radiographic dye allergy status; Z88.5 Allergy status to narcotic agent; Z91.040 Latex allergy status; Z79.899 Other long term (current) drug therapy; Z92.21 Personal history of antineoplastic chemotherapy; Z82.0 Family history of epilepsy and other diseases of the nervous system
CPT/HCPCS: 36415; 70450; 80048; 80076; 80175; 80180; 83605; 83735; 84146; 84439; 84443; 85025; 85610; 85730; 87631; 93005; 93041; 94760; 96361; 96372; 96374; 96375; 99285; J1650; J1885; J2405; Q0162

== ENCOUNTER → 2021-06-11 | Outpatient (CLI) | payer MEDICAID ==
[~2021-06-11] MED LIST changes: +MELA5TAB36 PO; +SYNT50TA PO
[2021-06-11 17:50] LABS: FREE T4 0.97 NG/DL (0.76-1.46); THYROID STIMULATING HORMONE 6.21 uIU/ML (0.358-3.740)
== END ==
LOC: M PLALAB 14:55
PROVIDERS: ATTEND Family Medicine
DX: E03.9 Hypothyroidism, unspecified (principal)

== ENCOUNTER 2021-06-23 06:21 | Emergency (ER) | payer MEDICAID ==
[~2021-06-23] VITALS: Ht 162.6 cm; Wt 61.4 kg
[2021-06-23] MEDS ORDERED: ACETAMINOPHEN TAB 650MG DOSE (2X325MG) PO ONE (07:25)
[2021-06-23 07:49] LABS: BASO % 0.6 % (0.0-1.0); EOS % 0.5 % (0.0-3.0); HEMATOCRIT 37.9 % (36.0-47.0); HEMOGLOBIN 12.1 g/dl (12.0-15.5); MEAN CORPUSCULAR HEMOGLOBIN 28.2 pg (27.0-33.0); MEAN CORPUSCULAR HGB CONC 31.9 g/dl (32.0-36.5); MEAN CORPUSCULAR VOLUME 88.3 fl (80.0-96.0); MONO # 0.3 10^3/uL (0.0-0.8); MONO % 3.8 % (2.0-8.0); NEUTROPHILS # 5.2 10^3/uL (1.5-8.5); NEUTROPHILS % 79.8 % (36.0-66.0); PLATELET COUNT, AUTOMATED 187 10^3/uL (150-450); RED BLOOD COUNT 4.29 10^6/uL (4.00-5.40); WHITE BLOOD COUNT 6.5 10^3/uL (4.0-10.0)
[2021-06-23 08:45] LABS: ALT/SGPT 17 U/L (12-78); BILIRUBIN,TOTAL 0.6 MG/DL (0.2-1.0); BLOOD UREA NITROGEN 13 MG/DL (7-18); CALCIUM LEVEL 8.7 MG/DL (8.5-10.1); CARBON DIOXIDE LEVEL 27 MEQ/L (21-32); CHLORIDE LEVEL 109 MEQ/L (98-107); CREATININE FOR GFR 0.88 MG/DL (0.55-1.30); GLOMERULAR FILTRATION RATE > 60.0 (>60); GLUCOSE, FASTING 85 MG/DL (70-100); POTASSIUM SERUM 4.2 MEQ/L (3.5-5.1); SODIUM LEVEL 141 MEQ/L (136-145); TOTAL PROTEIN 7.1 GM/DL (6.4-8.2)
[2021-06-23] MEDS ORDERED: HYDR1CRE30 TOP (08:59)
[2021-06-23 09:24] VITALS: BP 95/62
== END 2021-06-23 09:45 | disposition home or self-care (01) ==
LOC: M ED 06:21
DX: R21 Rash and other nonspecific skin eruption (principal); R51.9 Headache, unspecified; I73.00 Raynaud's syndrome without gangrene; R56.9 Unspecified convulsions; E07.9 Disorder of thyroid, unspecified; E16.2 Hypoglycemia, unspecified; C85.90 Non-Hodgkin lymphoma, unspecified, unspecified site; Z79.899 Other long term (current) drug therapy; Z91.041 Radiographic dye allergy status; Z91.040 Latex allergy status; Z88.5 Allergy status to narcotic agent

== ENCOUNTER 2021-06-29 08:00 | Emergency (ER) | payer MEDICAID ==
[~2021-06-29] VITALS: Ht 162.6 cm; Wt 59.1 kg
[~2021-06-29 08:00] MED LIST changes: +HYDR1CRE30 TOP
[2021-06-29] MEDS ORDERED: HYDR-3363 (08:25)
[2021-06-29] MEDS ORDERED: lamoTRIgine 100MG TAB PO ONE (08:40)
[2021-06-29] MEDS ORDERED: levETIRAcetam 250MG TABLET (KEPPRA) PO ONE (08:40)
[2021-06-29] MEDS ORDERED: METOCLOPRAMIDE INJ 10MG/2ML VIAL (J2765 PER 1) IV ONE (08:50)
[2021-06-29] MEDS ORDERED: diphenhydrAMINE 50MG/ML VIAL (J1200) IV ONE (08:50)
[2021-06-29] MEDS ORDERED: ACETAMINOPHEN 500 MG TAB PO ONE (08:50)
[2021-06-29] MEDS ORDERED: NS 1,000 ML IV ONE (08:50)
[2021-06-29 09:55] LABS: BASO % 0.3 % (0.0-1.0); EOS % 0.3 % (0.0-3.0); HEMATOCRIT 41.1 % (36.0-47.0); HEMOGLOBIN 13.2 g/dl (12.0-15.5); LYMPH # 0.8 10^3/uL (1.5-5.0); LYMPH % 12.6 % (24.0-44.0); MEAN CORPUSCULAR HEMOGLOBIN 28.4 pg (27.0-33.0); MEAN CORPUSCULAR HGB CONC 32.1 g/dl (32.0-36.5); MEAN CORPUSCULAR VOLUME 88.6 fl (80.0-96.0); MONO # 0.3 10^3/uL (0.0-0.8); NEUTROPHILS # 5.4 10^3/uL (1.5-8.5); NEUTROPHILS % 82.6 % (36.0-66.0); PLATELET COUNT, AUTOMATED 183 10^3/uL (150-450); RED BLOOD COUNT 4.64 10^6/uL (4.00-5.40); WHITE BLOOD COUNT 6.5 10^3/uL (4.0-10.0)
[2021-06-29 10:16] LABS: ERYTHROCYTE SEDIMENTATION RATE 5 mm/hr (0-20)
[2021-06-29 10:55] VITALS: BP 118/74
== END 2021-06-29 11:06 | disposition home or self-care (01) ==
LOC: M ED 08:00 → EDBD 08:00 → M ED 11:06
DX: G44.209 Tension-type headache, unspecified, not intractable (principal); R29.6 Repeated falls; R56.9 Unspecified convulsions; E03.9 Hypothyroidism, unspecified; K21.9 Gastro-esophageal reflux disease without esophagitis; C81.90 Hodgkin lymphoma, unspecified, unspecified site; Z87.19 Personal history of other diseases of the digestive system; Z91.041 Radiographic dye allergy status; Z91.040 Latex allergy status; Z88.4 Allergy status to anesthetic agent; Z79.899 Other long term (current) drug therapy
CPT/HCPCS: 36415; 70450; 85025; 85652; 86140; 96374; 96375; 99284; J1200; J2765

== ENCOUNTER 2021-07-01 02:27 | Emergency (ER) | payer MEDICAID ==
[~2021-07-01] VITALS: Ht 165.1 cm; Wt 59.1 kg
[~2021-07-01 02:27] MED LIST changes: +HYDR-3363
[2021-07-01] MEDS ORDERED: KETOROLAC 30 MG/ML 1ML VIAL IV ONE (04:05)
[2021-07-01] MEDS ORDERED: HALOPERIDOL 5MG/ML VIAL (J1630 PER 1) IV ONE (04:05)
[2021-07-01 05:34] VITALS: BP 127/77
== END 2021-07-01 06:33 | disposition home or self-care (01) ==
LOC: M ED 02:27
DX: G89.4 Chronic pain syndrome (principal); R10.9 Unspecified abdominal pain; R11.2 Nausea with vomiting, unspecified; R60.0 Localized edema; J45.909 Unspecified asthma, uncomplicated; G40.909 Epilepsy, unspecified, not intractable, without status epilepticus; Z91.041 Radiographic dye allergy status; Z91.040 Latex allergy status; Z88.4 Allergy status to anesthetic agent; Z79.899 Other long term (current) drug therapy
CPT/HCPCS: 76775; 96374; 96375; 99284; J1630; J1885

== ENCOUNTER 2021-07-25 22:44 | Emergency (ER) | payer MEDICAID ==
[~2021-07-25] VITALS: Ht 165.1 cm; Wt 71.1 kg
[2021-07-25] MEDS ORDERED: LEVO200T4 PO (23:03)
[2021-07-25] MEDS ORDERED: levETIRAcetam INJection 750 MG in D5W 100 ML IV ONE (23:15)
[2021-07-25] MEDS ORDERED: ONDANSETRON 4MG/2ML VIAL IV ONE (23:15)
[2021-07-25 23:31] LABS: BASO % 0.2 % (0.0-1.0); EOS % 0.2 % (0.0-3.0); HEMATOCRIT 34.3 % (36.0-47.0); HEMOGLOBIN 11.5 g/dl (12.0-15.5); LYMPH # 0.9 10^3/uL (1.5-5.0); LYMPH % 11.5 % (24.0-44.0); MEAN CORPUSCULAR HEMOGLOBIN 28.9 pg (27.0-33.0); MEAN CORPUSCULAR HGB CONC 33.5 g/dl (32.0-36.5); MEAN CORPUSCULAR VOLUME 86.2 fl (80.0-96.0); MONO # 0.3 10^3/uL (0.0-0.8); MONO % 3.1 % (2.0-8.0); NEUTROPHILS # 6.9 10^3/uL (1.5-8.5); NEUTROPHILS % 84.6 % (36.0-66.0); RED BLOOD COUNT 3.98 10^6/uL (4.00-5.40); WHITE BLOOD COUNT 8.1 10^3/uL (4.0-10.0)
[2021-07-26 00:21] LABS: ALBUMIN 3.8 GM/DL (3.2-5.2); ALT/SGPT 16 U/L (12-78); BILIRUBIN,DIRECT < 0.1 MG/DL (0.0-0.2); BILIRUBIN,TOTAL 0.4 MG/DL (0.2-1.0); BLOOD UREA NITROGEN 22 MG/DL (7-18); CALCIUM LEVEL 8.7 MG/DL (8.5-10.1); CARBON DIOXIDE LEVEL 26 MEQ/L (21-32); CHLORIDE LEVEL 106 MEQ/L (98-107); CREATININE FOR GFR 0.82 MG/DL (0.55-1.30); GLOMERULAR FILTRATION RATE > 60.0 (>60); GLUCOSE, FASTING 111 MG/DL (70-100); LIPASE 92 U/L (73-393); POTASSIUM SERUM 4.4 MEQ/L (3.5-5.1); SODIUM LEVEL 138 MEQ/L (136-145); TOTAL PROTEIN 6.8 GM/DL (6.4-8.2)
[2021-07-26 01:45] VITALS: BP 123/73
== END 2021-07-26 02:12 | disposition home or self-care (01) ==
LOC: M ED 22:44 → EDBD 22:44 → M ED 07-26 02:12
DX: G40.909 Epilepsy, unspecified, not intractable, without status epilepticus (principal); R11.10 Vomiting, unspecified; E03.9 Hypothyroidism, unspecified; Z79.890 Hormone replacement therapy; Z79.899 Other long term (current) drug therapy; Z88.8 Allergy status to other drugs, medicaments and biological substances; Z91.040 Latex allergy status
CPT/HCPCS: 80048; 80076; 83605; 83690; 85025; 93041; 96365; 96375; 99285; J1953; J2405

== ENCOUNTER → 2021-07-29 | Outpatient (CLI) | payer MEDICAID ==
[2021-07-29 16:51] LABS: FREE T4 2.08 NG/DL (0.76-1.46); THYROID STIMULATING HORMONE 0.029 uIU/ML (0.358-3.740)
== END ==
LOC: M LAB 13:25
PROVIDERS: ATTEND Family Medicine
DX: E03.9 Hypothyroidism, unspecified (principal)

== ENCOUNTER → 2021-07-30 | Outpatient (CLI) | payer MEDICAID ==
[2021-07-30 14:26] LABS: ALBUMIN 4.5 GM/DL (3.2-5.2); ALT/SGPT 20 U/L (12-78); BILIRUBIN,TOTAL 0.5 MG/DL (0.2-1.0); BLOOD UREA NITROGEN 17 MG/DL (7-18); CALCIUM LEVEL 9.3 MG/DL (8.5-10.1); CARBON DIOXIDE LEVEL 29 MEQ/L (21-32); CHLORIDE LEVEL 104 MEQ/L (98-107); CREATININE FOR GFR 0.91 MG/DL (0.55-1.30); GLOMERULAR FILTRATION RATE > 60.0 (>60); GLUCOSE, FASTING 64 MG/DL (70-100); POTASSIUM SERUM 4.6 MEQ/L (3.5-5.1); SODIUM LEVEL 138 MEQ/L (136-145); TOTAL PROTEIN 7.7 GM/DL (6.4-8.2)
[2021-07-30 14:32] LABS: CORTISOL BASELINE 20.5 UG/DL (4.3-22.4)
== END ==
LOC: M PLALAB 11:25
PROVIDERS: ATTEND Student in an Organized Health Care Education/Training Program
DX: E16.1 Other hypoglycemia (principal); Z86.39 Personal history of other endocrine, nutritional and metabolic disease
CPT/HCPCS: 36415; 80053; 82010; 82533; 83525; 83527; 84206; 84681; 86337; G0480

== ENCOUNTER 2021-08-05 07:12 | Observation (INO) | payer MEDICAID ==
[~2021-08-05] VITALS: Ht 162.6 cm; Wt 70.0 kg
[2021-08-05 07:50] LABS: BASO % 0.3 % (0.0-1.0); HEMATOCRIT 39.8 % (36.0-47.0); HEMOGLOBIN 13.2 g/dl (12.0-15.5); LYMPH # 1.1 10^3/uL (1.5-5.0); LYMPH % 15.9 % (24.0-44.0); MEAN CORPUSCULAR HEMOGLOBIN 28.8 pg (27.0-33.0); MEAN CORPUSCULAR HGB CONC 33.2 g/dl (32.0-36.5); MEAN CORPUSCULAR VOLUME 86.9 fl (80.0-96.0); MONO # 0.4 10^3/uL (0.0-0.8); MONO % 5.2 % (2.0-8.0); NEUTROPHILS # 5.4 10^3/uL (1.5-8.5); NEUTROPHILS % 78.3 % (36.0-66.0); PLATELET COUNT, AUTOMATED 218 10^3/uL (150-450); RED BLOOD COUNT 4.58 10^6/uL (4.00-5.40); WHITE BLOOD COUNT 6.9 10^3/uL (4.0-10.0)
[2021-08-05 08:10] LABS: HCG, SERUM QUALITATIVE NEGATIVE (NEGATIVE)
[2021-08-05 08:12] LABS: ALBUMIN 4.1 GM/DL (3.2-5.2); ALT/SGPT 20 U/L (12-78); BILIRUBIN,DIRECT 0.1 MG/DL (0.0-0.2); BILIRUBIN,TOTAL 0.6 MG/DL (0.2-1.0); BLOOD UREA NITROGEN 17 MG/DL (7-18); CALCIUM LEVEL 9.1 MG/DL (8.5-10.1); CARBON DIOXIDE LEVEL 28 MEQ/L (21-32); CHLORIDE LEVEL 108 MEQ/L (98-107); CREATININE FOR GFR 0.78 MG/DL (0.55-1.30); GLOMERULAR FILTRATION RATE > 60.0 (>60); GLUCOSE, FASTING 87 MG/DL (70-100); MAGNESIUM LEVEL 1.9 MG/DL (1.8-2.4); PHOSPHORUS LEVEL 3.3 MG/DL (2.5-4.9); POTASSIUM SERUM 3.8 MEQ/L (3.5-5.1); SODIUM LEVEL 141 MEQ/L (136-145); TOTAL PROTEIN 7.3 GM/DL (6.4-8.2)
[2021-08-05 08:38] LABS: AMPHETAMINES LEVEL URINE NEGATIVE (NEGATIVE); BARBITURATES URINE NEGATIVE (NEGATIVE); BENZODIAZEPINES URINE POSITIVE (NEGATIVE); CANNABINOIDS URINE NEGATIVE (NEGATIVE); COCAINE METABOLITE URINE NEGATIVE (NEGATIVE); METHADONE URINE NEGATIVE (NEGATIVE); OPIATES URINE NEGATIVE (NEGATIVE); PHENCYCLIDINE URINE NEGATIVE (NEGATIVE)
[2021-08-05] MEDS ORDERED: MELA10CA PO (08:52)
[2021-08-05] MEDS ORDERED: HYDR-3363 PO (08:52)
[2021-08-05] MEDS ORDERED: HOME MED LIST COMPLETE! XX SCH (08:55)
[2021-08-05] MEDS ORDERED: ENOXAPARIN 40MG/0.4ML SYRINGE (J1650 PER 10MG) SC SCH ×2 (09:00→21:00)
[2021-08-05] MEDS ORDERED: lamoTRIgine 100MG TAB PO SCH (09:00)
[2021-08-05] MEDS ORDERED: levETIRAcetam 250MG TABLET (KEPPRA) PO SCH (09:00)
[2021-08-05 09:22] LABS: RSV AMPLIFICATION NEGATIVE (NEGATIVE)
[2021-08-05] MEDS ORDERED: lamoTRIgine 100MG TAB PO ONE (09:45)
[2021-08-05] MEDS ORDERED: levETIRAcetam 250MG TABLET (KEPPRA) PO ONE (09:45)
[2021-08-05] MEDS ORDERED: hydrOXYzine 25 MG TAB PO PRN (12:10)
[2021-08-05 13:50] LABS: FREE T4 1.97 NG/DL (0.76-1.46)
[2021-08-05 15:21] VITALS: BP 110/83
[2021-08-05] MEDS: LEVOTHYROXINE 100MCG TABLET (0.1MG) PO SCH (16:01)
[2021-08-05 20:20] VITALS: BP 114/65
[2021-08-05] MEDS: levETIRAcetam 250MG TABLET (KEPPRA) PO SCH (20:51)
[2021-08-05] MEDS: lamoTRIgine 100MG TAB PO SCH (20:51)
[2021-08-05] MEDS ORDERED: RAMELTEON 8 MG TAB (ROZEREM) PO SCH (21:00)
[2021-08-05 23:45] VITALS: BP 120/71
[2021-08-06 01:00] VITALS: BP 114/68
[2021-08-06] MEDS ORDERED: LORazepam 2 MG/ML VIAL As Ordered ONE (01:05)
[2021-08-06] MEDS ORDERED: LORazepam 2 MG/ML VIAL IV STA (01:33)
[2021-08-06 03:03] LABS: ALBUMIN 3.8 GM/DL (3.2-5.2); ALT/SGPT 16 U/L (12-78); BILIRUBIN,TOTAL 0.5 MG/DL (0.2-1.0); BLOOD UREA NITROGEN 16 MG/DL (7-18); CALCIUM LEVEL 9.3 MG/DL (8.5-10.1); CARBON DIOXIDE LEVEL 24 MEQ/L (21-32); CHLORIDE LEVEL 105 MEQ/L (98-107); GLOMERULAR FILTRATION RATE > 60.0 (>60); GLUCOSE, FASTING 92 MG/DL (70-100); POTASSIUM SERUM 3.9 MEQ/L (3.5-5.1); SODIUM LEVEL 140 MEQ/L (136-145); TOTAL PROTEIN 7.1 GM/DL (6.4-8.2)
[2021-08-06 04:09] VITALS: BP 111/73
[2021-08-06] MEDS: LEVOTHYROXINE 100MCG TABLET (0.1MG) PO SCH (06:24)
[2021-08-06] MEDS ORDERED: ONDANSETRON 4MG/2ML VIAL IV ONE (07:00)
[2021-08-06] MEDS ORDERED: METOCLOPRAMIDE INJ 10MG/2ML VIAL (J2765 PER 1) IV ONE (08:00)
[2021-08-06] MEDS ORDERED: diphenhydrAMINE 50MG/ML VIAL (J1200) IV ONE (08:00)
[2021-08-06] MEDS ORDERED: NS 1,000 ML IV ONE (08:00)
[2021-08-06] MEDS ORDERED: KETOROLAC 30 MG/ML 1ML VIAL IV ONE (08:00)
[2021-08-06 08:29] VITALS: BP 108/66
[2021-08-06] MEDS: levETIRAcetam 250MG TABLET (KEPPRA) PO SCH (09:47)
[2021-08-06] MEDS: lamoTRIgine 100MG TAB PO SCH (09:47)
[2021-08-09 17:07] LABS: LAMOTRIGINE (LAMICTAL) 7.3 ug/mL (2.0-20.0); LEVETIRACETAM (KEPPRA) 12.3 ug/mL (10.0-40.0)
== END 2021-08-06 14:00 | disposition home or self-care (01) ==
LOC: M ED 07:12 → EDBD 07:12 → M ED INP 12:06 → ENRESERV 13:45 → M PCU 15:10
PROVIDERS: ADMIT Internal Medicine; ATTEND Internal Medicine
DX: F44.5 Conversion disorder with seizures or convulsions (principal); G43.909 Migraine, unspecified, not intractable, without status migrainosus; E03.9 Hypothyroidism, unspecified; E16.2 Hypoglycemia, unspecified; Z85.71 Personal history of Hodgkin lymphoma; D53.9 Nutritional anemia, unspecified; G47.00 Insomnia, unspecified; R00.0 Tachycardia, unspecified; H53.8 Other visual disturbances; R11.2 Nausea with vomiting, unspecified; G40.409 Other generalized epilepsy and epileptic syndromes, not intractable, without status epilepticus; Z87.19 Personal history of other diseases of the digestive system; I73.00 Raynaud's syndrome without gangrene; Z82.0 Family history of epilepsy and other diseases of the nervous system; Z80.7 Family history of other malignant neoplasms of lymphoid, hematopoietic and related tissues; Z79.899 Other long term (current) drug therapy; Z91.041 Radiographic dye allergy status; Z91.040 Latex allergy status; Z88.4 Allergy status to anesthetic agent
CPT/HCPCS: 36415; 70450; 71045; 80047; 80048; 80053; 80076; 80175; 80180; 80307; 81001; 83605; 83735; 84100; 84439; 84443; 84703; 85025; 87631; 93005; 94760; 95819; 96372; 96374; 96375; 99285; J1200; J1650; J1885; J2405; J2765

== ENCOUNTER → 2021-09-16 | Outpatient (CLI) | payer MEDICAID ==
[~2021-09-16] MED LIST changes: +ALBU2.5V10 INH; +ALBU2.5V10 NEB; -ALBU83IN INH; -ALBU83IN NEB; +HYDR-3363 PO; +MELA10CA PO
[2021-09-16 16:09] LABS: FREE T4 2.01 NG/DL (0.76-1.46); THYROID STIMULATING HORMONE 0.005 uIU/ML (0.358-3.740)
== END ==
LOC: M PLALAB 11:45
PROVIDERS: ATTEND Family Medicine
DX: E03.9 Hypothyroidism, unspecified (principal)

== ENCOUNTER 2021-09-22 04:43 | Emergency (ER) | payer MEDICAID ==
[~2021-09-22] VITALS: Ht 162.6 cm; Wt 63.1 kg
[2021-09-22 05:23] LABS: BASO % 0.2 % (0.0-1.0); EOS % 0.3 % (0.0-3.0); HEMATOCRIT 41.4 % (36.0-47.0); HEMOGLOBIN 13.7 g/dl (12.0-15.5); LYMPH # 1.1 10^3/uL (1.5-5.0); LYMPH % 19.7 % (24.0-44.0); MEAN CORPUSCULAR HEMOGLOBIN 28.1 pg (27.0-33.0); MEAN CORPUSCULAR HGB CONC 33.1 g/dl (32.0-36.5); MEAN CORPUSCULAR VOLUME 84.8 fl (80.0-96.0); MONO # 0.3 10^3/uL (0.0-0.8); MONO % 5.4 % (2.0-8.0); NEUTROPHILS # 4.3 10^3/uL (1.5-8.5); NEUTROPHILS % 74.2 % (36.0-66.0); PLATELET COUNT, AUTOMATED 214 10^3/uL (150-450); RED BLOOD COUNT 4.88 10^6/uL (4.00-5.40); WHITE BLOOD COUNT 5.7 10^3/uL (4.0-10.0)
[2021-09-22] MEDS ORDERED: NS 1,000 ML IV ONE (05:30)
[2021-09-22 05:36] LABS: ALT/SGPT 27 U/L (12-78); BILIRUBIN,TOTAL 0.3 MG/DL (0.2-1.0); BLOOD UREA NITROGEN 13 MG/DL (7-18); CALCIUM LEVEL 8.6 MG/DL (8.5-10.1); CARBON DIOXIDE LEVEL 26 MEQ/L (21-32); CHLORIDE LEVEL 107 MEQ/L (98-107); CREATININE FOR GFR 0.89 MG/DL (0.55-1.30); GLOMERULAR FILTRATION RATE > 60.0 (>60); GLUCOSE, FASTING 102 MG/DL (70-100); LIPASE 107 U/L (73-393); POTASSIUM SERUM 4.1 MEQ/L (3.5-5.1); SODIUM LEVEL 138 MEQ/L (136-145); TOTAL PROTEIN 7.4 GM/DL (6.4-8.2)
[2021-09-22 06:01] LABS: FREE T4 1.73 NG/DL (0.76-1.46); THYROID STIMULATING HORMONE < 0.005 uIU/ML (0.358-3.740)
[2021-09-22] MEDS ORDERED: ONDANSETRON 4MG/2ML VIAL IV ONE (06:15)
[2021-09-22] MEDS ORDERED: LORazepam 2 MG/ML VIAL IV STA (06:46)
[2021-09-22 07:41] LABS: APPEARANCE, URINE CLEAR (CLEAR); BACTERIA, URINE AUTO NEGATIVE (NEGATIVE); BILIRUBIN, URINE AUTO NEGATIVE (NEGATIVE); BLOOD, URINE BLOOD NEGATIVE (NEGATIVE); COLOR, URINE YELLOW (YELLOW); GLUCOSE, URINE (UA) AUTO NEGATIVE (NEGATIVE); KETONE, URINE AUTO 1+ mg/dL (NEGATIVE); LEUKOCYTE ESTERASE, URINE AUTO NEGATIVE (NEGATIVE); MUCUS, URINE SMALL (NEGATIVE); NITRITE, URINE AUTO NEGATIVE (NEGATIVE); PROTEIN, URINE AUTO NEGATIVE (NEGATIVE); RBC, URINE AUTO 1 /HPF (0-3); SPECIFIC GRAVITY URINE AUTO 1.016 (1.002-1.035); SQUAMOUS EPITHELIAL CELL UR AU 4 /HPF (0-6); UROBILINOGEN, URINE AUTO 0.2 mg/dL (0.0-2.0); WBC, URINE AUTO 1 /HPF (0-3)
[2021-09-22 07:55] LABS: AMPHETAMINES LEVEL URINE NEGATIVE (NEGATIVE); BARBITURATES URINE NEGATIVE (NEGATIVE); BENZODIAZEPINES URINE POSITIVE (NEGATIVE); CANNABINOIDS URINE NEGATIVE (NEGATIVE); COCAINE METABOLITE URINE NEGATIVE (NEGATIVE); METHADONE URINE NEGATIVE (NEGATIVE); OPIATES URINE NEGATIVE (NEGATIVE); PHENCYCLIDINE URINE NEGATIVE (NEGATIVE)
[2021-09-22 10:12] VITALS: BP 135/82
[2021-09-22] MEDS ORDERED: levETIRAcetam 250MG TABLET (KEPPRA) PO ONE (10:15)
[2021-09-22] MEDS ORDERED: SYNT150T PO (10:22)
[2021-09-22 10:24] LABS: HCG, SERUM QUALITATIVE NEGATIVE (NEGATIVE)
== END 2021-09-22 10:28 | disposition home or self-care (01) ==
LOC: EDBD 04:43 → M ED 04:43
DX: R25.8 Other abnormal involuntary movements (principal); G40.909 Epilepsy, unspecified, not intractable, without status epilepticus; E05.90 Thyrotoxicosis, unspecified without thyrotoxic crisis or storm; R00.0 Tachycardia, unspecified; F44.5 Conversion disorder with seizures or convulsions; Z91.040 Latex allergy status; Z91.041 Radiographic dye allergy status; Z88.4 Allergy status to anesthetic agent; Z79.899 Other long term (current) drug therapy
CPT/HCPCS: 71045; 80053; 80175; 80180; 80307; 81001; 82550; 83605; 83690; 84439; 84443; 84703; 85025; 93005; 96361; 96374; 99284; J2405

== ENCOUNTER → 2021-11-10 | Outpatient (CLI) | payer MEDICAID ==
[~2021-11-10] MED LIST changes: +SYNT150T PO
== END ==
LOC: M PLALAB 10:04
PROVIDERS: ATTEND Physician Assistant
DX: E03.9 Hypothyroidism, unspecified (principal); Z53.9 Procedure and treatment not carried out, unspecified reason

== ENCOUNTER → 2021-11-15 | Outpatient (CLI) | payer MEDICAID ==
[2021-11-15 13:15] LABS: FREE T4 0.59 NG/DL (0.76-1.46); THYROID STIMULATING HORMONE 9.35 uIU/ML (0.358-3.740)
== END ==
LOC: M RAD 11:45
PROVIDERS: ATTEND Physician Assistant
DX: E03.9 Hypothyroidism, unspecified (principal)

== ENCOUNTER → 2022-01-06 | Outpatient (CLI) | payer MEDICAID ==
[2022-01-06 14:06] LABS: BASO % 0.5 % (0.0-1.0); EOS # 0.1 10^3/uL (0.0-0.5); EOS % 1.5 % (0.0-3.0); HEMATOCRIT 38.7 % (36.0-47.0); HEMOGLOBIN 12.4 g/dl (12.0-15.5); LYMPH # 2.1 10^3/uL (1.5-5.0); LYMPH % 31.1 % (24.0-44.0); MEAN CORPUSCULAR HEMOGLOBIN 28.4 pg (27.0-33.0); MEAN CORPUSCULAR VOLUME 88.6 fl (80.0-96.0); MONO # 0.4 10^3/uL (0.0-0.8); MONO % 6.2 % (2.0-8.0); NEUTROPHILS % 60.5 % (36.0-66.0); PLATELET COUNT, AUTOMATED 223 10^3/uL (150-450); RED BLOOD COUNT 4.37 10^6/uL (4.00-5.40); WHITE BLOOD COUNT 6.6 10^3/uL (4.0-10.0)
[2022-01-06 14:42] LABS: ALBUMIN 4.1 GM/DL (3.2-5.2); ALT/SGPT 17 U/L (12-78); BILIRUBIN,TOTAL 0.3 MG/DL (0.2-1.0); BLOOD UREA NITROGEN 15 MG/DL (7-18); CALCIUM LEVEL 8.9 MG/DL (8.5-10.1); CARBON DIOXIDE LEVEL 29 MEQ/L (21-32); CHLORIDE LEVEL 104 MEQ/L (98-107); CREATININE FOR GFR 0.78 MG/DL (0.55-1.30); FREE T4 0.64 NG/DL (0.76-1.46); GLOMERULAR FILTRATION RATE > 60.0 (>60); GLUCOSE, FASTING 80 MG/DL (70-100); POTASSIUM SERUM 4.4 MEQ/L (3.5-5.1); SODIUM LEVEL 136 MEQ/L (136-145); TOTAL PROTEIN 7.2 GM/DL (6.4-8.2)
== END ==
LOC: M PLALAB 10:37
PROVIDERS: ATTEND Physician Assistant
DX: E03.9 Hypothyroidism, unspecified (principal)

== ENCOUNTER 2022-01-18 06:53 | Emergency (ER) | payer MEDICAID ==
[2022-01-18] MEDS ORDERED: levETIRAcetam INJection 1,000 MG in D5W 100 ML IV ONE (07:30)
[2022-01-18] MEDS ORDERED: lamoTRIgine 100MG TAB PO ONE (09:25)
[2022-01-18 10:13] VITALS: BP 135/87
[2022-01-19] MEDS ORDERED: ONDA4TAB6 PO (09:25)
== END 2022-01-18 10:15 | disposition home or self-care (01) ==
LOC: EDBD 06:53 → M ED 06:53
DX: F44.5 Conversion disorder with seizures or convulsions (principal); G40.909 Epilepsy, unspecified, not intractable, without status epilepticus; R11.10 Vomiting, unspecified; E03.9 Hypothyroidism, unspecified; C81.90 Hodgkin lymphoma, unspecified, unspecified site; J45.909 Unspecified asthma, uncomplicated; K57.90 Diverticulosis of intestine, part unspecified, without perforation or abscess without bleeding; Z91.041 Radiographic dye allergy status; Z91.040 Latex allergy status; Z88.4 Allergy status to anesthetic agent; Z79.899 Other long term (current) drug therapy; Z79.890 Hormone replacement therapy
CPT/HCPCS: 93005; 96365; 96366; 99285; J1953

== ENCOUNTER 2022-01-19 06:44 | Emergency (ER) | payer MEDICAID ==
[~2022-01-19] VITALS: Ht 170.2 cm; Wt 59.1 kg
[2022-01-19] MEDS ORDERED: NS 1,000 ML IV ONE (07:45)
[2022-01-19] MEDS ORDERED: KETOROLAC 30 MG/ML 1ML VIAL IV ONE (07:45)
[2022-01-19] MEDS ORDERED: METOCLOPRAMIDE INJ 10MG/2ML VIAL (J2765 PER 1) IV ONE (07:45)
[2022-01-19 08:06] LABS: BASO % 0.3 % (0.0-1.0); EOS % 0.4 % (0.0-3.0); HEMATOCRIT 40.1 % (36.0-47.0); HEMOGLOBIN 13.3 g/dl (12.0-15.5); LYMPH # 0.9 10^3/uL (1.5-5.0); LYMPH % 12.6 % (24.0-44.0); MEAN CORPUSCULAR HGB CONC 33.2 g/dl (32.0-36.5); MEAN CORPUSCULAR VOLUME 87.6 fl (80.0-96.0); MONO # 0.5 10^3/uL (0.0-0.8); MONO % 7.3 % (2.0-8.0); NEUTROPHILS # 5.7 10^3/uL (1.5-8.5); NEUTROPHILS % 79.1 % (36.0-66.0); PLATELET COUNT, AUTOMATED 204 10^3/uL (150-450); RED BLOOD COUNT 4.58 10^6/uL (4.00-5.40); WHITE BLOOD COUNT 7.1 10^3/uL (4.0-10.0)
[2022-01-19 08:46] LABS: ALBUMIN 4.3 GM/DL (3.2-5.2); ALT/SGPT 20 U/L (12-78); BILIRUBIN,DIRECT 0.1 MG/DL (0.0-0.2); BILIRUBIN,TOTAL 0.5 MG/DL (0.2-1.0); BLOOD UREA NITROGEN 8 MG/DL (7-18); CARBON DIOXIDE LEVEL 23 MEQ/L (21-32); CHLORIDE LEVEL 106 MEQ/L (98-107); CREATININE FOR GFR 0.93 MG/DL (0.55-1.30); GLOMERULAR FILTRATION RATE > 60.0 (>60); GLUCOSE, FASTING 93 MG/DL (70-100); LIPASE 126 U/L (73-393); POTASSIUM SERUM 3.7 MEQ/L (3.5-5.1); SODIUM LEVEL 137 MEQ/L (136-145); TOTAL PROTEIN 7.8 GM/DL (6.4-8.2)
[2022-01-19] MEDS ORDERED: ONDA4TAB6 PO (09:25)
[2022-01-19 09:47] VITALS: BP 132/78
== END 2022-01-19 09:46 | disposition home or self-care (01) ==
LOC: M ED 06:44 → EDBD 06:44 → M ED 09:46
DX: B34.8 Other viral infections of unspecified site (principal); R05.8 Other specified cough; R07.9 Chest pain, unspecified; R06.02 Shortness of breath; J02.9 Acute pharyngitis, unspecified; R11.2 Nausea with vomiting, unspecified; R56.9 Unspecified convulsions; I73.00 Raynaud's syndrome without gangrene; Z85.71 Personal history of Hodgkin lymphoma; Z94.81 Bone marrow transplant status; Z79.899 Other long term (current) drug therapy; Z91.041 Radiographic dye allergy status; Z91.040 Latex allergy status; Z88.8 Allergy status to other drugs, medicaments and biological substances
CPT/HCPCS: 71046; 80048; 80076; 83690; 84702; 85025; 87486; 87581; 87633; 87798; 93005; 96361; 96374; 96375; 99284; J1885; J2765

== ENCOUNTER → 2022-03-15 | Outpatient (CLI) | payer MEDICAID | LOC: M RAD 09:05 | PROVIDERS: ATTEND Physician Assistant | DX: M25.562 Pain in left knee (principal) ==

== ENCOUNTER 2022-04-04 18:50 | Emergency (ER) | payer MEDICAID ==
[~2022-04-04] VITALS: Ht 162.6 cm; Wt 59.1 kg
[2022-04-04] MEDS ORDERED: levETIRAcetam INJection 750 MG in D5W 100 ML IV ONE (19:50)
[2022-04-04] MEDS ORDERED: NS 1,000 ML IV ONE (19:50)
[2022-04-04 20:20] LABS: CK-MB VALUE MASS < 1.0 NG/ML (<3.6)
[2022-04-04 20:22] LABS: ALBUMIN 4.3 G/DL (3.2-5.2); ALKALINE PHOSPHATASE 59 U/L (46-116); ALT/SGPT 19 U/L (7.0-40); AST/SGOT 25 U/L (<34); BILIRUBIN,DIRECT < 0.1 MG/DL (<0.4); BILIRUBIN,TOTAL 0.2 MG/DL (0.3-1.2); TOTAL PROTEIN 7.2 G/DL (5.7-8.2)
[2022-04-04 20:24] LABS: THYROID STIMULATING HORMONE 31.987 uIU/ML (0.55-4.78)
[2022-04-04 20:25] LABS: CPK CREATINE PHOSPHOKINASE 94 U/L (34-145); MB/CK RELATIVE INDEX 1.06 (< OR =4)
[2022-04-04 20:35] LABS: BASO % 0.4 % (0.0-1.0); EOS # 0.1 10^3/uL (0.0-0.5); EOS % 0.8 % (0.0-3.0); HEMATOCRIT 38.3 % (36.0-47.0); HEMOGLOBIN 12.4 g/dl (12.0-15.5); LYMPH # 1.4 10^3/uL (1.5-5.0); LYMPH % 19.2 % (24.0-44.0); MEAN CORPUSCULAR HEMOGLOBIN 28.5 pg (27.0-33.0); MEAN CORPUSCULAR HGB CONC 32.4 g/dl (32.0-36.5); MONO # 0.4 10^3/uL (0.0-0.8); MONO % 4.9 % (2.0-8.0); NEUTROPHILS # 5.6 10^3/uL (1.5-8.5); NEUTROPHILS % 74.6 % (36.0-66.0); PLATELET COUNT, AUTOMATED 182 10^3/uL (150-450); RED BLOOD COUNT 4.35 10^6/uL (4.00-5.40); WHITE BLOOD COUNT 7.5 10^3/uL (4.0-10.0)
[2022-04-04 21:32] LABS: BLOOD UREA NITROGEN 14 MG/DL (9-23); CALCIUM LEVEL 8.9 MG/DL (8.5-10.1); CARBON DIOXIDE LEVEL 20 MMOL/L (20-31); CHLORIDE LEVEL 104 MMOL/L (98-107); CREATININE FOR GFR 0.95 MG/DL (0.55-1.30); GLOMERULAR FILTRATION RATE > 60.0 (>60); GLUCOSE, FASTING 120 MG/DL (60-100); POTASSIUM SERUM 4.1 MMOL/L (3.5-5.1); SODIUM LEVEL 137 MMOL/L (136-145)
[2022-04-04 23:58] VITALS: BP 160/84
[2022-04-05 01:11] LABS: FREE T4 0.82 NG/DL (0.89-1.76)
== END 2022-04-05 00:03 | disposition home or self-care (01) ==
LOC: M ED 18:50 → EDBD 18:50 → M ED 04-05 00:03
DX: R56.9 Unspecified convulsions (principal); F44.5 Conversion disorder with seizures or convulsions; Z91.041 Radiographic dye allergy status; Z91.040 Latex allergy status; Z88.5 Allergy status to narcotic agent; Z79.899 Other long term (current) drug therapy; Z79.890 Hormone replacement therapy
CPT/HCPCS: 80048; 80076; 82550; 82553; 84439; 84443; 85025; 93005; 96374; 99285; J1953

== ENCOUNTER → 2022-05-11 | Outpatient (CLI) | payer MEDICAID ==
[~2022-05-11] MED LIST changes: +NYST-38 PO; -NYST50SS PO
== END ==
LOC: M WHC 11:35
PROVIDERS: ATTEND Obstetrics & Gynecology
DX: N83.202 Unspecified ovarian cyst, left side (principal)

== ENCOUNTER 2022-06-04 11:49 | Emergency (ER) | payer MEDICAID ==
[~2022-06-04] VITALS: Ht 165.1 cm; Wt 66.3 kg
[~2022-06-04 11:49] MED LIST changes: +LIDO15SO4 SS; -LIDO2SOL17 SS
[2022-06-04] MEDS ORDERED: ONDANSETRON 4MG ORAL DISINTEGRATING TAB PO ONE (12:40)
[2022-06-04] MEDS ORDERED: NS 1,000 ML IV ONE (12:40)
[2022-06-04] MEDS ORDERED: PROMETHAZINE 25MG/ML 1ML VIAL IV ONE (13:05)
[2022-06-04 13:31] LABS: BASO % 0.3 % (0.0-1.0); EOS % 0.4 % (0.0-3.0); HEMATOCRIT 43.6 % (36.0-47.0); LYMPH # 0.7 10^3/uL (1.5-5.0); LYMPH % 7.4 % (24.0-44.0); MEAN CORPUSCULAR HEMOGLOBIN 28.7 pg (27.0-33.0); MEAN CORPUSCULAR HGB CONC 32.1 g/dl (32.0-36.5); MEAN CORPUSCULAR VOLUME 89.3 fl (80.0-96.0); MONO # 0.4 10^3/uL (0.0-0.8); MONO % 4.4 % (2.0-8.0); NEUTROPHILS # 7.9 10^3/uL (1.5-8.5); NEUTROPHILS % 87.3 % (36.0-66.0); PLATELET COUNT, AUTOMATED 213 10^3/uL (150-450); RED BLOOD COUNT 4.88 10^6/uL (4.00-5.40); WHITE BLOOD COUNT 9.1 10^3/uL (4.0-10.0)
[2022-06-04 13:52] LABS: LIPASE 38 U/L (12-53)
[2022-06-04 13:54] LABS: ALBUMIN 4.4 G/DL (3.2-5.2); ALKALINE PHOSPHATASE 60 U/L (46-116); ALT/SGPT 18 U/L (7.0-40); AST/SGOT 14 U/L (<34); BILIRUBIN,DIRECT 0.2 MG/DL (<0.4); BILIRUBIN,TOTAL 0.6 MG/DL (0.3-1.2); BLOOD UREA NITROGEN 17 MG/DL (9-23); CARBON DIOXIDE LEVEL 26 MMOL/L (20-31); CHLORIDE LEVEL 105 MMOL/L (98-107); CREATININE FOR GFR 0.99 MG/DL (0.55-1.30); GLOMERULAR FILTRATION RATE > 60.0 (>60); GLUCOSE, FASTING 124 MG/DL (60-100); POTASSIUM SERUM 4.6 MMOL/L (3.5-5.1); SODIUM LEVEL 138 MMOL/L (136-145); TOTAL PROTEIN 7.6 G/DL (5.7-8.2)
[2022-06-04] MEDS ORDERED: ONDA4TAB6 PO (14:07)
[2022-06-04 14:11] VITALS: BP 131/68
== END 2022-06-04 14:21 | disposition home or self-care (01) ==
LOC: EDBD 11:49 → M ED 14:06
DX: G40.909 Epilepsy, unspecified, not intractable, without status epilepticus (principal); R11.2 Nausea with vomiting, unspecified; C81.90 Hodgkin lymphoma, unspecified, unspecified site; K21.9 Gastro-esophageal reflux disease without esophagitis; E03.9 Hypothyroidism, unspecified; M54.50 Low back pain, unspecified; F17.210 Nicotine dependence, cigarettes, uncomplicated; Z94.81 Bone marrow transplant status

== ENCOUNTER → 2022-06-27 | Outpatient (CLI) | payer MEDICAID | LOC: M CARPUL 09:02 | PROVIDERS: ATTEND Physician Assistant | DX: R00.0 Tachycardia, unspecified (principal) ==

== ENCOUNTER → 2022-07-01 | Outpatient (CLI) | payer MEDICAID | LOC: M PLALAB 10:20 | PROVIDERS: ATTEND Obstetrics & Gynecology | DX: Z85.72 Personal history of non-Hodgkin lymphomas (principal) ==

== ENCOUNTER 2022-10-19 02:38 | Emergency (ER) | payer MEDICAID ==
[~2022-10-19] VITALS: Ht 167.6 cm; Wt 75.0 kg
[~2022-10-19 02:38] MED LIST changes: +LIDO15SO SS; -LIDO15SO4 SS; -SENN-111 PO; +SENN-188 PO
[2022-10-19 03:34] LABS: IONIZED CALCIUM 4.5 MG/DL (4.5-5.3)
[2022-10-19 03:40] LABS: BASO % 0.5 % (0.0-1.0); EOS % 0.1 % (0.0-3.0); HEMATOCRIT 35.7 % (36.0-47.0); HEMOGLOBIN 11.9 g/dl (12.0-15.5); LYMPH # 1.4 10^3/uL (1.5-5.0); LYMPH % 18.1 % (24.0-44.0); MEAN CORPUSCULAR HGB CONC 33.3 g/dl (32.0-36.5); MEAN CORPUSCULAR VOLUME 87.1 fl (80.0-96.0); MONO # 0.3 10^3/uL (0.0-0.8); MONO % 3.6 % (2.0-8.0); NEUTROPHILS # 6.2 10^3/uL (1.5-8.5); NEUTROPHILS % 77.4 % (36.0-66.0); PLATELET COUNT, AUTOMATED 210 10^3/uL (150-450)
[2022-10-19 03:54] LABS: AMPHETAMINES LEVEL URINE NEGATIVE (NEGATIVE); BARBITURATES URINE NEGATIVE (NEGATIVE); BENZODIAZEPINES URINE NEGATIVE (NEGATIVE); CANNABINOIDS URINE NEGATIVE (NEGATIVE); COCAINE METABOLITE URINE NEGATIVE (NEGATIVE); METHADONE URINE NEGATIVE (NEGATIVE); OPIATES URINE NEGATIVE (NEGATIVE); PHENCYCLIDINE URINE NEGATIVE (NEGATIVE)
[2022-10-19 04:08] LABS: ETHYL ALCOHOL (ETHANOL) < 0.003 % (0.000-0.010)
[2022-10-19 04:10] LABS: ALBUMIN 4.5 G/DL (3.2-5.2); ALKALINE PHOSPHATASE 54 U/L (46-116); ALT/SGPT 19 U/L (7.0-40); AST/SGOT 9 U/L (<34); BILIRUBIN,DIRECT < 0.1 MG/DL (<0.4); BILIRUBIN,TOTAL 0.4 MG/DL (0.3-1.2); BLOOD UREA NITROGEN 18 MG/DL (9-23); CALCIUM LEVEL 9.5 MG/DL (8.5-10.1); CARBON DIOXIDE LEVEL 26 MMOL/L (20-31); CHLORIDE LEVEL 107 MMOL/L (98-107); CREATININE FOR GFR 0.83 MG/DL (0.55-1.30); GLOMERULAR FILTRATION RATE > 60.0 (>60); GLUCOSE, FASTING 110 MG/DL (60-100); MAGNESIUM LEVEL 1.9 MG/DL (1.8-2.4); PHOSPHORUS LEVEL 2.9 MG/DL (2.5-4.9); POTASSIUM SERUM 3.5 MMOL/L (3.5-5.1); SODIUM LEVEL 139 MMOL/L (136-145)
[2022-10-19] MEDS ORDERED: ONDANSETRON 4MG 2ML VIAL IV ONE (04:10)
[2022-10-19] MEDS ORDERED: NS 1,000 ML IV ONE (04:10)
[2022-10-19] MEDS ORDERED: LORazepam 2 MG/ML 1ML VIAL As Ordered ONE (05:32)
[2022-10-19] MEDS ORDERED: LORazepam 2 MG/ML 1ML VIAL IV STA (05:45)
[2022-10-19] MEDS ORDERED: levETIRAcetam INJection 3,000 MG in D5W 100 ML IV ONE (05:45)
[2022-10-19 10:31] VITALS: TEMP 97.8
[2022-10-19 11:00] VITALS: BP 115/69; O2SAT 100
[2022-10-21 17:07] LABS: LAMOTRIGINE (LAMICTAL) 3.9 ug/mL (2.0-20.0); LEVETIRACETAM (KEPPRA) 13.7 ug/mL (10.0-40.0)
== END 2022-10-19 11:15 | disposition home or self-care (01) ==
LOC: M ED 02:38 → EDBD 02:38 → M ED 11:15
DX: G40.909 Epilepsy, unspecified, not intractable, without status epilepticus (principal); R11.10 Vomiting, unspecified; R00.0 Tachycardia, unspecified; J45.909 Unspecified asthma, uncomplicated; E07.9 Disorder of thyroid, unspecified; F41.9 Anxiety disorder, unspecified; Z91.041 Radiographic dye allergy status; Z91.040 Latex allergy status; Z88.4 Allergy status to anesthetic agent; Z79.899 Other long term (current) drug therapy
CPT/HCPCS: 70450; 80048; 80076; 80175; 80180; 80307; 82077; 82140; 82330; 83605; 83735; 84100; 85025; 93041; 94760; 96365; 96375; 99285; J1953; J2060; J2405

== ENCOUNTER → 2022-10-26 | Outpatient (CLI) | payer MEDICAID ==
[2022-10-26 13:27] LABS: BASO % 0.6 % (0.0-1.0); EOS # 0.1 10^3/uL (0.0-0.5); EOS % 1.3 % (0.0-3.0); HEMATOCRIT 40.1 % (36.0-47.0); HEMOGLOBIN 12.8 g/dl (12.0-15.5); LYMPH # 1.9 10^3/uL (1.5-5.0); LYMPH % 40.5 % (24.0-44.0); MEAN CORPUSCULAR HGB CONC 31.9 g/dl (32.0-36.5); MEAN CORPUSCULAR VOLUME 90.7 fl (80.0-96.0); MONO # 0.3 10^3/uL (0.0-0.8); MONO % 6.1 % (2.0-8.0); NEUTROPHILS # 2.5 10^3/uL (1.5-8.5); NEUTROPHILS % 51.3 % (36.0-66.0); PLATELET COUNT, AUTOMATED 198 10^3/uL (150-450); RED BLOOD COUNT 4.42 10^6/uL (4.00-5.40); WHITE BLOOD COUNT 4.8 10^3/uL (4.0-10.0)
[2022-10-26 15:16] LABS: PERCENT SATURATION 19.9 % (13.2-45.0)
[2022-10-26 15:18] LABS: FERRITIN 33.7 NG/ML (7.3-270.7); FREE T4 0.85 NG/DL (0.89-1.76); THYROID STIMULATING HORMONE 11.008 uIU/ML (0.55-4.78)
== END ==
LOC: M PLALAB 11:02
PROVIDERS: ATTEND Physician Assistant
DX: E03.9 Hypothyroidism, unspecified (principal)

== ENCOUNTER → 2022-12-21 | Outpatient (CLI) | payer MEDICAID ==
[~2022-12-21] MED LIST changes: -AMIT25TA17 PO; +AMIT25TA19 PO
== END ==
LOC: M PLALAB 15:19
PROVIDERS: ATTEND Physician Assistant
DX: M25.562 Pain in left knee (principal)

== ENCOUNTER 2023-01-26 05:06 | Emergency (ER) | payer MEDICAID ==
[~2023-01-26] VITALS: Ht 167.6 cm; Wt 73.3 kg
[~2023-01-26 05:06] MED LIST changes: -CEFD300C41 PO; +CEFD300C42 PO
[2023-01-26] MEDS ORDERED: levETIRAcetam INJection 1,000 MG in D5W 100 ML IV ONE (05:25)
[2023-01-26] MEDS ORDERED: ONDANSETRON 4MG 2ML VIAL IV ONE (05:45)
[2023-01-26 08:39] VITALS: BP 105/66; TEMP 97.3; O2SAT 100
== END 2023-01-26 08:39 | disposition home or self-care (01) ==
LOC: M ED 05:06 → EDBD 05:06 → M ED 08:39
DX: G40.909 Epilepsy, unspecified, not intractable, without status epilepticus (principal); Z79.899 Other long term (current) drug therapy; Z88.3 Allergy status to other anti-infective agents; Z88.8 Allergy status to other drugs, medicaments and biological substances; Z91.040 Latex allergy status
CPT/HCPCS: 80175; 80180; 96365; 96375; 99284; J1953; J2405

== ENCOUNTER → 2023-05-15 | Outpatient (CLI) | payer MEDICAID ==
[~2023-05-15] MED LIST changes: +AMOX875T2 PO; +CEFD1CAP9 PO; -CEFD300C42 PO
[2023-05-15 10:40] LABS: BASO % 0.8 % (0.0-1.0); EOS % 1.1 % (0.0-3.0); HEMATOCRIT 38.6 % (36.0-47.0); HEMOGLOBIN 12.6 g/dl (12.0-15.5); LYMPH # 1.4 10^3/uL (1.5-5.0); LYMPH % 36.2 % (24.0-44.0); MEAN CORPUSCULAR HEMOGLOBIN 29.2 pg (27.0-33.0); MEAN CORPUSCULAR HGB CONC 32.6 g/dl (32.0-36.5); MEAN CORPUSCULAR VOLUME 89.4 fl (80.0-96.0); MONO # 0.2 10^3/uL (0.0-0.8); MONO % 6.4 % (2.0-8.0); NEUTROPHILS # 2.1 10^3/uL (1.5-8.5); NEUTROPHILS % 55.2 % (36.0-66.0); PLATELET COUNT, AUTOMATED 212 10^3/uL (150-450); RED BLOOD COUNT 4.32 10^6/uL (4.00-5.40); WHITE BLOOD COUNT 3.8 10^3/uL (4.0-10.0)
[2023-05-15 11:09] LABS: IRON (FE) 100 UG/DL (50-170)
[2023-05-15 11:10] LABS: ALKALINE PHOSPHATASE 58 U/L (46-116); ALT/SGPT 12 U/L (7.0-40); AST/SGOT 8 U/L (<34); BILIRUBIN,TOTAL 0.5 MG/DL (0.3-1.2); BLOOD UREA NITROGEN 14 MG/DL (9-23); CALCIUM LEVEL 8.8 MG/DL (8.5-10.1); CARBON DIOXIDE LEVEL 27 MMOL/L (20-31); CHLORIDE LEVEL 107 MMOL/L (98-107); CHOLESTEROL LEVEL 203 MG/DL (<200); CHOLESTEROL RISK RATIO 2.69 (<5); CREATININE FOR GFR 0.86 MG/DL (0.55-1.30); FERRITIN 51.4 NG/ML (7.3-270.7); FREE T4 0.86 NG/DL (0.89-1.76); GLOMERULAR FILTRATION RATE > 60.0 (>60); GLUCOSE, FASTING 56 MG/DL (60-100); HDL CHOLESTEROL 75.3 MG/DL (>40); LDL CHOLESTEROL 116.7 MG/DL (<100); NON-HDL-C 127.7 MG/DL; PERCENT SATURATION 28.2 % (13.2-45.0); POTASSIUM SERUM 4.6 MMOL/L (3.5-5.1); SODIUM LEVEL 136 MMOL/L (136-145); TOTAL IRON BINDING CAPACITY 355 UG/DL (250-425); TOTAL PROTEIN 7.4 G/DL (5.7-8.2); TRIGLYCERIDES LEVEL 55 MG/DL (<150)
[2023-05-15 11:11] LABS: TOTAL 25(OH) VITAMIN D 26.4 NG/ML (20.0-100.0); VITAMIN B12 LEVEL 320 PG/ML (211-911)
[2023-05-15 11:12] LABS: FOLATE 19.8 NG/ML (>5.4)
[2023-05-15 11:15] LABS: HEMOGLOBIN A1c 5.2 % (4.0-6.0)
== END ==
LOC: M LAB 08:56
PROVIDERS: ATTEND Physician Assistant
DX: D50.9 Iron deficiency anemia, unspecified (principal); G40.409 Other generalized epilepsy and epileptic syndromes, not intractable, without status epilepticus; E16.2 Hypoglycemia, unspecified; E03.9 Hypothyroidism, unspecified; Z13.220 Encounter for screening for lipoid disorders

== ENCOUNTER 2023-05-31 05:31 | Emergency (ER) | payer MEDICAID ==
[~2023-05-31] VITALS: Ht 154.9 cm; Wt 67.3 kg
[~2023-05-31 05:31] MED LIST changes: -MIRA1POW3 PO; +MIRA33506 PO
[2023-05-31] MEDS ORDERED: METO1TAB32 (07:58)
[2023-05-31] MEDS ORDERED: NIFE-3 (07:58)
[2023-05-31] MEDS ORDERED: MUCI600T31 PO (08:26)
[2023-05-31 08:39] VITALS: BP 118/69; TEMP 95.7; O2SAT 75
[2023-05-31 08:51] LABS: RSV AMPLIFICATION NEGATIVE (NEGATIVE)
[2023-05-31] MEDS ORDERED: propofoL 200 MG/20 ML VIAL As Ordered ONE (09:50)
[2023-05-31] MEDS ORDERED: LIDOCAINE 2% 100MG/5ML SDV (FOR ANES.) As Ordered ONE (09:50)
== END 2023-05-31 08:54 | disposition home or self-care (01) ==
LOC: M ED 05:31
DX: J06.9 Acute upper respiratory infection, unspecified (principal); K21.9 Gastro-esophageal reflux disease without esophagitis; E03.9 Hypothyroidism, unspecified; G40.909 Epilepsy, unspecified, not intractable, without status epilepticus; F17.200 Nicotine dependence, unspecified, uncomplicated; Z79.899 Other long term (current) drug therapy; Z88.5 Allergy status to narcotic agent; Z91.041 Radiographic dye allergy status; Z91.040 Latex allergy status

== ENCOUNTER 2023-06-15 04:09 | Emergency (ER) | payer MEDICAID ==
[~2023-06-15] VITALS: Ht 162.6 cm; Wt 68.0 kg
[~2023-06-15 04:09] MED LIST changes: +METO1TAB32 PO; +MUCI600T31 PO; +NIFE-3 PO
[2023-06-15] MEDS: KETOROLAC 30 MG/ML 1ML VIAL IV ONE (06:14)
[2023-06-15] MEDS: PROMETHAZINE 25MG/ML 1ML VIAL IV ONE (06:14)
[2023-06-15 06:15] LABS: BASO % 0.3 % (0.0-1.0); EOS % 0.3 % (0.0-3.0); HEMATOCRIT 39.5 % (36.0-47.0); HEMOGLOBIN 12.9 g/dl (12.0-15.5); LYMPH # 0.7 10^3/uL (1.5-5.0); LYMPH % 11.4 % (24.0-44.0); MEAN CORPUSCULAR HEMOGLOBIN 28.6 pg (27.0-33.0); MEAN CORPUSCULAR HGB CONC 32.7 g/dl (32.0-36.5); MEAN CORPUSCULAR VOLUME 87.6 fl (80.0-96.0); MONO # 0.4 10^3/uL (0.0-0.8); MONO % 6.7 % (2.0-8.0); PLATELET COUNT, AUTOMATED 203 10^3/uL (150-450); RED BLOOD COUNT 4.51 10^6/uL (4.00-5.40); WHITE BLOOD COUNT 6.1 10^3/uL (4.0-10.0)
[2023-06-15 06:37] LABS: ETHYL ALCOHOL (ETHANOL) 0.004 % (0.000-0.010); LIPASE 34 U/L (12-53)
[2023-06-15 06:39] LABS: ALBUMIN 3.9 G/DL (3.2-5.2); ALKALINE PHOSPHATASE 54 U/L (46-116); ALT/SGPT 14 U/L (7.0-40); AST/SGOT 23 U/L (<34); BILIRUBIN,DIRECT < 0.1 MG/DL (<0.4); BILIRUBIN,TOTAL 0.4 MG/DL (0.3-1.2); BLOOD UREA NITROGEN 10 MG/DL (9-23); CALCIUM LEVEL 8.6 MG/DL (8.5-10.1); CARBON DIOXIDE LEVEL 25 MMOL/L (20-31); CHLORIDE LEVEL 105 MMOL/L (98-107); CREATININE FOR GFR 0.85 MG/DL (0.55-1.30); GLOMERULAR FILTRATION RATE > 60.0 (>60); GLUCOSE, FASTING 101 MG/DL (60-100); POTASSIUM SERUM 4.1 MMOL/L (3.5-5.1); SODIUM LEVEL 137 MMOL/L (136-145); TOTAL PROTEIN 6.8 G/DL (5.7-8.2)
[2023-06-15 07:16] LABS: AMPHETAMINES LEVEL URINE NEGATIVE (NEGATIVE); BARBITURATES URINE NEGATIVE (NEGATIVE)
[2023-06-15 07:17] LABS: BENZODIAZEPINES URINE NEGATIVE (NEGATIVE); CANNABINOIDS URINE NEGATIVE (NEGATIVE); COCAINE METABOLITE URINE NEGATIVE (NEGATIVE); METHADONE URINE NEGATIVE (NEGATIVE); OPIATES URINE NEGATIVE (NEGATIVE); PHENCYCLIDINE URINE NEGATIVE (NEGATIVE)
[2023-06-15 07:35] LABS: URINE PREG TEST NEGATIVE (NEGATIVE)
[2023-06-15 08:24] LABS: RSV AMPLIFICATION NEGATIVE (NEGATIVE)
[2023-06-15 09:00] VITALS: BP 107/60; TEMP 99.1; O2SAT 99
[2023-06-15] MEDS ORDERED: GLUC1KIT INJ (09:44)
[2023-06-15] MEDS ORDERED: BENZ200C70 PO (09:44)
[2023-06-15] MEDS ORDERED: OMEP40CA4 PO (09:44)
[2023-06-15] MEDS ORDERED: GUAI600T54 PO (09:44)
[2023-06-15] MEDS ORDERED: HOME MED LIST COMPLETE! XX SCH (09:50)
== END 2023-06-15 09:12 | disposition home or self-care (01) ==
LOC: M ED 04:09
DX: R10.9 Unspecified abdominal pain (principal); R56.9 Unspecified convulsions; C81.90 Hodgkin lymphoma, unspecified, unspecified site; I73.00 Raynaud's syndrome without gangrene; Z91.041 Radiographic dye allergy status; Z88.8 Allergy status to other drugs, medicaments and biological substances; Z91.040 Latex allergy status; Z79.51 Long term (current) use of inhaled steroids; Z79.899 Other long term (current) drug therapy
CPT/HCPCS: 74176; 80048; 80076; 80307; 81001; 82077; 83605; 83690; 84703; 85025; 87631; 93041; 96374; 99285; J1885; J2550

== ENCOUNTER → 2023-08-24 | Outpatient (CLI) | payer MEDICARE, MEDICAID ==
[~2023-08-24] MED LIST changes: +GLUC1KIT INJ; +GUAI600T54 PO; -LIDO15SO SS; +LIDO15SO8 SS; -PROC25SU24 PR; +PROC25SU27 PR
[2023-08-24 16:00] LABS: BASO % 0.6 % (0.0-1.0); EOS # 0.1 10^3/uL (0.0-0.5); EOS % 1.1 % (0.0-3.0); HEMATOCRIT 43.6 % (36.0-47.0); HEMOGLOBIN 14.2 g/dl (12.0-15.5); LYMPH % 37.8 % (24.0-44.0); MEAN CORPUSCULAR HEMOGLOBIN 28.3 pg (27.0-33.0); MEAN CORPUSCULAR HGB CONC 32.6 g/dl (32.0-36.5); MONO # 0.3 10^3/uL (0.0-0.8); MONO % 6.1 % (2.0-8.0); NEUTROPHILS # 2.9 10^3/uL (1.5-8.5); NEUTROPHILS % 54.4 % (36.0-66.0); PLATELET COUNT, AUTOMATED 214 10^3/uL (150-450); RED BLOOD COUNT 5.01 10^6/uL (4.00-5.40); WHITE BLOOD COUNT 5.4 10^3/uL (4.0-10.0)
[2023-08-24 16:19] LABS: FERRITIN 39.4 NG/ML (7.3-270.7); TOTAL 25(OH) VITAMIN D 19.2 NG/ML (20.0-100.0); VITAMIN B12 LEVEL 277 PG/ML (211-911)
[2023-08-24 16:20] LABS: FREE T4 0.75 NG/DL (0.89-1.76)
[2023-08-24 16:24] LABS: IRON (FE) 98 UG/DL (50-170)
[2023-08-24 16:25] LABS: ALKALINE PHOSPHATASE 55 U/L (46-116); ALT/SGPT 17 U/L (7.0-40); AST/SGOT 22 U/L (<34); BILIRUBIN,TOTAL 0.3 MG/DL (0.3-1.2); BLOOD UREA NITROGEN 17 MG/DL (9-23); CARBON DIOXIDE LEVEL 26 MMOL/L (20-31); CHLORIDE LEVEL 104 MMOL/L (98-107); CREATININE FOR GFR 0.84 MG/DL (0.55-1.30); GLOMERULAR FILTRATION RATE > 60.0 (>60); GLUCOSE, FASTING 69 MG/DL (60-100); PERCENT SATURATION 26.3 % (13.2-45.0); POTASSIUM SERUM 5.2 MMOL/L (3.5-5.1); SODIUM LEVEL 138 MMOL/L (136-145); TOTAL IRON BINDING CAPACITY 373 UG/DL (250-425); TOTAL PROTEIN 7.5 G/DL (5.7-8.2)
[2023-08-24 16:27] LABS: THYROID STIMULATING HORMONE 20.706 uIU/ML (0.55-4.78)
[2023-08-24 16:29] LABS: FOLATE > 24.0 NG/ML (>5.4)
[2023-08-26 17:08] LABS: TESTOSTERONE FREE (DIRECT) 2.2 pg/mL (0.0-4.2)
== END ==
LOC: M PLALAB 12:13
PROVIDERS: ATTEND Physician Assistant
DX: L65.9 Nonscarring hair loss, unspecified (principal); E03.9 Hypothyroidism, unspecified; D50.9 Iron deficiency anemia, unspecified; Z79.899 Other long term (current) drug therapy

== ENCOUNTER 2023-10-26 01:18 | Emergency (ER) | payer MEDICARE, MEDICAID ==
[~2023-10-26] VITALS: Ht 163.8 cm; Wt 72.5 kg
[~2023-10-26 01:18] MED LIST changes: +ONDA-282 PO; -ONDA4TAB6 PO
[2023-10-26 03:14] LABS: BASO % 0.3 % (0.0-1.0); EOS # 0.1 10^3/uL (0.0-0.5); EOS % 0.5 % (0.0-3.0); HEMATOCRIT 41.9 % (36.0-47.0); HEMOGLOBIN 13.9 g/dl (12.0-15.5); LYMPH % 18.9 % (24.0-44.0); MEAN CORPUSCULAR HEMOGLOBIN 28.5 pg (27.0-33.0); MEAN CORPUSCULAR HGB CONC 33.2 g/dl (32.0-36.5); MEAN CORPUSCULAR VOLUME 85.9 fl (80.0-96.0); MONO # 0.5 10^3/uL (0.0-0.8); NEUTROPHILS # 7.9 10^3/uL (1.5-8.5); PLATELET COUNT, AUTOMATED 202 10^3/uL (150-450); RED BLOOD COUNT 4.88 10^6/uL (4.00-5.40); WHITE BLOOD COUNT 10.5 10^3/uL (4.0-10.0)
[2023-10-26] MEDS: ONDANSETRON 4MG 2ML VIAL IV ONE (03:30)
[2023-10-26] MEDS: NS 1,000 ML IV ONE (03:30)
[2023-10-26 03:39] LABS: LIPASE 41 U/L (12-53)
[2023-10-26] MEDS: KETOROLAC 30 MG/ML 1ML VIAL IV ONE (04:09)
[2023-10-26 04:29] LABS: HCG, SERUM QUALITATIVE NEGATIVE (NEGATIVE)
[2023-10-26 04:32] LABS: ALBUMIN 4.4 G/DL (3.2-5.2); ALKALINE PHOSPHATASE 59 U/L (46-116); ALT/SGPT 19 U/L (7.0-40); AST/SGOT 10 U/L (<34); BILIRUBIN,DIRECT < 0.1 MG/DL (<0.4); BILIRUBIN,TOTAL 0.3 MG/DL (0.3-1.2); BLOOD UREA NITROGEN 11 MG/DL (9-23); CALCIUM LEVEL 9.5 MG/DL (8.5-10.1); CARBON DIOXIDE LEVEL 24 MMOL/L (20-31); CHLORIDE LEVEL 107 MMOL/L (98-107); CREATININE FOR GFR 0.83 MG/DL (0.55-1.30); GLOMERULAR FILTRATION RATE > 60.0 (>60); GLUCOSE, FASTING 107 MG/DL (60-100); POTASSIUM SERUM 3.8 MMOL/L (3.5-5.1); SODIUM LEVEL 140 MMOL/L (136-145); TOTAL PROTEIN 7.4 G/DL (5.7-8.2)
[2023-10-26] MEDS: MORPHINE 2 MG/ML 1ML VIAL IV ONE (06:25)
[2023-10-26] MEDS: FLEET ENEMA PR STA (07:47)
[2023-10-26] MEDS ORDERED: COLA100C5 PO (08:23)
[2023-10-26 08:34] VITALS: BP 134/78; TEMP 99.2; O2SAT 97
== END 2023-10-26 08:43 | disposition home or self-care (01) ==
LOC: M ED 01:18
DX: K59.00 Constipation, unspecified (principal); I10 Essential (primary) hypertension; K21.9 Gastro-esophageal reflux disease without esophagitis; G40.909 Epilepsy, unspecified, not intractable, without status epilepticus; Z85.71 Personal history of Hodgkin lymphoma; Z88.8 Allergy status to other drugs, medicaments and biological substances; Z91.040 Latex allergy status; Z91.041 Radiographic dye allergy status; Z79.51 Long term (current) use of inhaled steroids; Z79.899 Other long term (current) drug therapy
CPT/HCPCS: 74176; 80048; 80076; 81001; 83690; 84703; 85025; 96361; 96374; 96375; 99284; J1885; J2405

== ENCOUNTER → 2023-10-27 | Outpatient (REF) | payer MEDICARE, MEDICAID | LOC: M LAB REF 12:03 | PROVIDERS: ATTEND Physician Assistant Medical | DX: B34.9 Viral infection, unspecified (principal) ==

== ENCOUNTER → 2023-12-20 | Outpatient (CLI) | payer MEDICARE, MEDICAID ==
[2023-12-20 11:25] LABS: THYROID STIMULATING HORMONE 13.895 uIU/ML (0.55-4.78); TOTAL 25(OH) VITAMIN D 22.3 NG/ML (20.0-100.0)
[2023-12-20 11:26] LABS: FREE T4 0.98 NG/DL (0.89-1.76)
[2023-12-23 04:17] LABS: LEVETIRACETAM (KEPPRA) 11.2 mcg/mL (6.0-46.0)
== END ==
LOC: M LAB 09:25
PROVIDERS: ATTEND Physician Assistant
DX: D50.9 Iron deficiency anemia, unspecified (principal); E07.9 Disorder of thyroid, unspecified

== ENCOUNTER → 2024-06-17 | Outpatient (CLI) | payer MEDICARE, MEDICAID | LOC: M LAB 10:18 | PROVIDERS: ATTEND Internal Medicine | DX: E03.9 Hypothyroidism, unspecified (principal) ==

== ENCOUNTER → 2024-07-08 | Outpatient (CLI) | payer MEDICARE, MEDICAID | LOC: M PLALAB 12:29 | PROVIDERS: ATTEND Internal Medicine | DX: N64.52 Nipple discharge (principal) ==

== ENCOUNTER 2024-08-22 01:55 | Emergency (ER) | payer MEDICARE, MEDICAID ==
[~2024-08-22] VITALS: Ht 165.1 cm; Wt 73.5 kg
[~2024-08-22 01:55] MED LIST changes: -GLUC1KIT INJ; +GLUC1VIA14 INJ
[2024-08-22 02:38] LABS: VENOUS BASE EXCESS 0.8 (-2.0-2.0); VENOUS O2 SATURATION 77.5 % (60.0-80.0); VENOUS PARTIAL PRESSURE CO2 43.6 mmHg (38.0-50.0); VENOUS PARTIAL PRESSURE O2 41.8 mmHg (30.0-50.0); VENOUS PH 7.393 UNITS (7.330-7.430); VENOUS STANDARD HCO3 24.7 MMOL/L; VENOUS TOTAL CO2 27.3 MMOL/L (24.0-28.0)
[2024-08-22 02:40] LABS: IONIZED CALCIUM 4.3 MG/DL (4.5-5.3)
[2024-08-22 02:42] LABS: BASO % 0.2 % (0.0-1.0); EOS % 0.1 % (0.0-3.0); HEMATOCRIT 38.2 % (36.0-47.0); HEMOGLOBIN 12.8 g/dl (12.0-15.5); LYMPH # 0.9 10^3/uL (1.5-5.0); LYMPH % 8.6 % (24.0-44.0); MEAN CORPUSCULAR HEMOGLOBIN 28.8 pg (27.0-33.0); MEAN CORPUSCULAR HGB CONC 33.5 g/dl (32.0-36.5); MEAN CORPUSCULAR VOLUME 85.8 fl (80.0-96.0); MONO # 0.3 10^3/uL (0.0-0.8); NEUTROPHILS # 8.7 10^3/uL (1.5-8.5); NEUTROPHILS % 87.9 % (36.0-66.0); PLATELET COUNT, AUTOMATED 230 10^3/uL (150-450); RED BLOOD COUNT 4.45 10^6/uL (4.00-5.40); WHITE BLOOD COUNT 9.9 10^3/uL (4.0-10.0)
[2024-08-22] MEDS: levETIRAcetam INJection 1,000 MG in IV 1 EA IV ONE (02:57)
[2024-08-22] MEDS: NS (Normal Saline) 0.9% 1,000 ML IV ONE (02:57)
[2024-08-22] MEDS: ONDANSETRON 4MG 2ML VIAL IV ONE (02:57)
[2024-08-22] MEDS: lamoTRIgine 100MG TAB PO ONE (03:03)
[2024-08-22 03:07] LABS: ETHYL ALCOHOL (ETHANOL) < 0.003 % (0.000-0.010)
[2024-08-22 03:09] LABS: ALBUMIN 3.8 G/DL (3.2-5.2); ALKALINE PHOSPHATASE 48 U/L (35-104); ALT/SGPT 19 U/L (7.0-40); AST/SGOT 22 U/L (<34); BILIRUBIN,DIRECT < 0.1 MG/DL (<0.4); BILIRUBIN,TOTAL 0.4 MG/DL (0.3-1.2); BLOOD UREA NITROGEN 17 MG/DL (9-23); CALCIUM LEVEL 8.9 MG/DL (8.5-10.1); CARBON DIOXIDE LEVEL 26 MMOL/L (20-31); CHLORIDE LEVEL 105 MMOL/L (98-107); CREATININE FOR GFR 0.91 MG/DL (0.55-1.30); GLOMERULAR FILTRATION RATE 84.4 (>60); GLUCOSE, FASTING 104 MG/DL (60-100); MAGNESIUM LEVEL 1.9 MG/DL (1.8-2.4); PHOSPHORUS LEVEL 2.7 MG/DL (2.5-4.9); SODIUM LEVEL 142 MMOL/L (136-145); TOTAL PROTEIN 6.9 G/DL (5.7-8.2)
[2024-08-22 03:14] LABS: APPEARANCE, URINE CLOUDY (CLEAR); BACTERIA, URINE AUTO NEGATIVE (NEGATIVE); BILIRUBIN, URINE AUTO NEGATIVE (NEGATIVE); BLOOD, URINE BLOOD 3+ (NEGATIVE); COLOR, URINE YELLOW (YELLOW); GLUCOSE, URINE (UA) AUTO NEGATIVE (NEGATIVE); KETONE, URINE AUTO 1+ mg/dL (NEGATIVE); LEUKOCYTE ESTERASE, URINE AUTO NEGATIVE (NEGATIVE); MUCUS, URINE SMALL (NEGATIVE); NITRITE, URINE AUTO NEGATIVE (NEGATIVE); PROTEIN, URINE AUTO 2+ mg/dL (NEGATIVE); RBC, URINE AUTO 87 /HPF (0-3); SPECIFIC GRAVITY URINE AUTO 1.021 (1.002-1.035); SQUAMOUS EPITHELIAL CELL UR AU 16 /HPF (0-6); UROBILINOGEN, URINE AUTO 0.2 mg/dL (0.0-2.0); WBC, URINE AUTO 3 /HPF (0-3)
[2024-08-22 04:48] VITALS: BP 119/72; TEMP 98; O2SAT 100
== END 2024-08-22 04:55 | disposition home or self-care (01) ==
LOC: M ED 01:55 → EDBD 01:55 → M ED 04:55
DX: G40.909 Epilepsy, unspecified, not intractable, without status epilepticus (principal); E03.9 Hypothyroidism, unspecified; I10 Essential (primary) hypertension; K21.9 Gastro-esophageal reflux disease without esophagitis; Z91.040 Latex allergy status; Z91.018 Allergy to other foods; Z88.5 Allergy status to narcotic agent; Z91.041 Radiographic dye allergy status; Z79.51 Long term (current) use of inhaled steroids; Z79.899 Other long term (current) drug therapy
CPT/HCPCS: 80048; 80076; 80175; 80177; 81001; 82077; 82140; 82330; 82803; 83605; 83735; 84100; 85025; 87486; 87581; 87633; 87798; 93041; 94760; 96365; 96366; 96375; 99285; J1953; J2405

== ENCOUNTER → 2024-08-29 | Outpatient (CLI) | payer MEDICARE, MEDICAID ==
[2024-08-29 16:48] LABS: BASO # 0.1 10^3/uL (0.0-0.2); BASO % 0.8 % (0.0-1.0); EOS # 0.1 10^3/uL (0.0-0.5); EOS % 1.4 % (0.0-3.0); HEMATOCRIT 42.4 % (36.0-47.0); HEMOGLOBIN 13.5 g/dl (12.0-15.5); LYMPH # 2.3 10^3/uL (1.5-5.0); LYMPH % 35.2 % (24.0-44.0); MEAN CORPUSCULAR HEMOGLOBIN 28.5 pg (27.0-33.0); MEAN CORPUSCULAR HGB CONC 31.8 g/dl (32.0-36.5); MEAN CORPUSCULAR VOLUME 89.5 fl (80.0-96.0); MONO # 0.4 10^3/uL (0.0-0.8); MONO % 5.5 % (2.0-8.0); NEUTROPHILS # 3.8 10^3/uL (1.5-8.5); NEUTROPHILS % 56.9 % (36.0-66.0); PLATELET COUNT, AUTOMATED 278 10^3/uL (150-450); RED BLOOD COUNT 4.74 10^6/uL (4.00-5.40); WHITE BLOOD COUNT 6.6 10^3/uL (4.0-10.0)
[2024-08-29 17:27] LABS: ALBUMIN 4.1 G/DL (3.2-5.2); ALKALINE PHOSPHATASE 67 U/L (35-104); ALT/SGPT 19 U/L (7.0-40); AST/SGOT 17 U/L (<34); BILIRUBIN,TOTAL 0.2 MG/DL (0.3-1.2); BLOOD UREA NITROGEN 11 MG/DL (9-23); CALCIUM LEVEL 9.3 MG/DL (8.5-10.1); CARBON DIOXIDE LEVEL 26 MMOL/L (20-31); CHLORIDE LEVEL 103 MMOL/L (98-107); CREATININE FOR GFR 0.85 MG/DL (0.55-1.30); GLOMERULAR FILTRATION RATE > 90.0 (>60); GLUCOSE, FASTING 74 MG/DL (60-100); INR 0.86; PARTIAL THROMBOPLASTIN TIME 26.8 SECONDS (24.8-34.2); POTASSIUM SERUM 4.3 MMOL/L (3.5-5.1); SODIUM LEVEL 140 MMOL/L (136-145); TOTAL PROTEIN 7.5 G/DL (5.7-8.2)
[2024-08-29 17:29] LABS: FREE T4 0.85 NG/DL (0.89-1.76); THYROID STIMULATING HORMONE 9.616 uIU/ML (0.55-4.78)
[2024-09-03 14:30] LABS: ANA SCREEN, IFA NEGATIVE (NEGATIVE)
[2024-09-04 01:27] LABS: LEVETIRACETAM (KEPPRA) 6.8 mcg/mL (6.0-46.0)
[2024-09-04 04:06] LABS: LAMOTRIGINE (LAMICTAL) 2.6 mcg/mL (2.5-15.0)
== END ==
LOC: M PLALAB 16:01
PROVIDERS: ATTEND Nurse Practitioner Family
DX: Z01.818 Encounter for other preprocedural examination (principal); Z79.01 Long term (current) use of anticoagulants; E07.9 Disorder of thyroid, unspecified; D50.9 Iron deficiency anemia, unspecified

== ENCOUNTER → 2024-10-21 | Outpatient (CLI) | payer MEDICARE, MEDICAID ==
[2024-10-21 18:05] LABS: BASO # 0.1 10^3/uL (0.0-0.2); BASO % 0.8 % (0.0-1.0); EOS # 0.2 10^3/uL (0.0-0.5); EOS % 3.4 % (0.0-3.0); LYMPH # 1.7 10^3/uL (1.5-5.0); LYMPH % 26.7 % (24.0-44.0); MONO # 0.4 10^3/uL (0.0-0.8); MONO % 6.4 % (2.0-8.0); NEUTROPHILS # 3.9 10^3/uL (1.5-8.5); NEUTROPHILS % 62.5 % (36.0-66.0); PLATELET COUNT, AUTOMATED 269 10^3/uL (150-450)
[2024-10-21 18:07] LABS: CALCIUM LEVEL 9.3 MG/DL (8.5-10.1); CARBON DIOXIDE LEVEL 25.0 MMOL/L (20-31); CHLORIDE LEVEL 106.0 MMOL/L (98-107); CREATININE FOR GFR 0.94 MG/DL (0.55-1.30); GLOMERULAR FILTRATION RATE 81.2 (>60); POTASSIUM SERUM 4.2 MMOL/L (3.5-5.1); SODIUM LEVEL 145.0 MMOL/L (136-145)
== END ==
LOC: M PLALAB 14:59
PROVIDERS: ATTEND Plastic Surgery
DX: Z01.812 Encounter for preprocedural laboratory examination (principal); Z79.899 Other long term (current) drug therapy

== ENCOUNTER 2025-01-25 21:39 | Emergency (ER) | payer MEDICARE, MEDICAID ==
[~2025-01-25] VITALS: Ht 162.6 cm; Wt 63.6 kg
[~2025-01-25 21:39] MED LIST changes: -IBUP-1022 PO; +IBUP600T42 PO
[2025-01-25 22:43] LABS: ALT/SGPT 17 U/L (7.0-40); AST/SGOT 23 U/L (<34); BASO # 0.0 10^3/uL (0.0-0.2); BASO % 0.3 % (0.0-1.0); CALCIUM LEVEL 9.3 MG/DL (8.5-10.1); CARBON DIOXIDE LEVEL 20 MMOL/L (20-31); CHLORIDE LEVEL 104 MMOL/L (98-107); CK-MB VALUE MASS < 1.0 NG/ML (<3.6); CREATININE FOR GFR 0.79 MG/DL (0.55-1.30); EOS # 0.0 10^3/uL (0.0-0.5); EOS % 0.2 % (0.0-3.0); GLOMERULAR FILTRATION RATE > 90.0 (>60); LYMPH # 1.5 10^3/uL (1.5-5.0); LYMPH % 10.3 % (24.0-44.0); MAGNESIUM LEVEL 1.9 MG/DL (1.8-2.4); MONO # 0.7 10^3/uL (0.0-0.8); MONO % 4.5 % (2.0-8.0); NEUTROPHILS # 12.4 10^3/uL (1.5-8.5); NEUTROPHILS % 84.4 % (36.0-66.0); PLATELET COUNT, AUTOMATED 226 10^3/uL (150-450); POTASSIUM SERUM 4.2 MMOL/L (3.5-5.1); SODIUM LEVEL 138 MMOL/L (136-145)
[2025-01-25 22:45] LABS: CPK CREATINE PHOSPHOKINASE 112 U/L (34-145)
[2025-01-26 00:30] VITALS: BP 139/71; O2SAT 96
[2025-01-26 00:43] VITALS: TEMP 98.6
[2025-01-29 03:22] LABS: LEVETIRACETAM (KEPPRA) 20.3 mcg/mL (6.0-46.0)
[2025-01-29 03:57] LABS: LAMOTRIGINE (LAMICTAL) 5.3 mcg/mL (2.5-15.0)
== END 2025-01-26 00:46 | disposition home or self-care (01) ==
LOC: M ED 21:39
DX: G40.909 Epilepsy, unspecified, not intractable, without status epilepticus (principal); R00.0 Tachycardia, unspecified; I25.2 Old myocardial infarction; E03.9 Hypothyroidism, unspecified; K21.9 Gastro-esophageal reflux disease without esophagitis; Z88.5 Allergy status to narcotic agent; Z91.040 Latex allergy status; Z91.018 Allergy to other foods; Z91.041 Radiographic dye allergy status; Z79.51 Long term (current) use of inhaled steroids; Z79.4 Long term (current) use of insulin; Z79.899 Other long term (current) drug therapy

== ENCOUNTER → 2025-01-30 | Outpatient (REF) | payer MEDICARE, MEDICAID | LOC: M SFHCPLAZ 13:05 | PROVIDERS: ATTEND Nurse Practitioner Family | DX: R05.9 Cough, unspecified (principal) ==

== ENCOUNTER → 2025-02-24 | Outpatient (CLI) | payer MEDICARE, MEDICAID ==
[~2025-02-24] MED LIST changes: +PROHANCE 279.3MG/ML 15ML VIAL As Ordered ONE
== END ==
LOC: M RAD 16:03
PROVIDERS: ATTEND Ophthalmology
DX: H54.3 Unqualified visual loss, both eyes (principal); R90.89 Other abnormal findings on diagnostic imaging of central nervous system
CPT/HCPCS: 70540; 70553; A9579